=== PATIENT | male | born 1995 | race Caucasian/White ===

== ENCOUNTER 2019-11-13 14:52 | Outpatient (CLI) | payer BC, MEDICAID, SELFPAY ==
[2019-11-13 15:28] LABS: Basophils Percent Auto 0.5 % (0.2-1.2); Eosinophils Absolute Auto 0.1 K/mm3 (0-0.3); Eosinophils Percent Auto 1.3 % (0-4.4); Hematocrit 26.1 % (42.0-52.0); Hemoglobin 8.5 g/dL (14.0-18.0); Immature Granulocyte Absolute 0.03 K/mm3 (0.00-0.031); Immature Granulocyte Percent A 0.8 % (0-0.5); Lymphocytes Absolute Auto 0.74 K/mm3 (0.9-3.2); Lymphocytes Percent Auto 18.8 % (18.3-44.2); Mean Corpuscular HGB Conc 32.6 g/dl (32-36); Mean Corpuscular Hemoglobin 33.3 pg (26-34); Mean Corpuscular Volume 102.4 fl (80-100); Mean Platelet Volume 10.9 fl (7.4-10.4); Monocytes Absolute Auto 0.5 K/mm3 (0.1-0.6); Monocytes Percent Auto 11.5 % (2.6-8.5); Neutrophils Absolute Auto 2.6 K/mm3 (1.3-6.7); Neutrophils Percent Auto 67.1 % (45.5-73.1); Platelet Count Result 98 k/mm3 (150-375); Red Blood Count 2.55 M/mm3 (4.6-6.20); Red Cell Distribution Width 20.3 % (11.5-14.5); White Blood Count 3.9 K/mm3 (4.5-10.0)
== END 2019-11-13 14:53 | disposition home or self-care (01) ==
PROVIDERS: PCP Pediatrics; Referring Provider Pediatrics
DX: D61.818 Other pancytopenia (principal)
CPT/HCPCS: 36415; 85025

== ENCOUNTER 2020-01-04 12:05 | Outpatient (CLI) | payer BC, MEDICAID, SELFPAY ==
[2020-01-04 12:39] LABS: Basophils Percent Auto 0.6 % (0.2-1.2); Eosinophils Absolute Auto 0.1 K/mm3 (0-0.3); Eosinophils Percent Auto 6.1 % (0-4.4); Hematocrit 29.3 % (42.0-52.0); Hemoglobin 9.6 g/dL (14.0-18.0); Immature Granulocyte Absolute 0.03 K/mm3 (0.00-0.031); Immature Granulocyte Percent A 1.8 % (0-0.5); Lymphocytes Absolute Auto 0.85 K/mm3 (0.9-3.2); Lymphocytes Percent Auto 51.5 % (18.3-44.2); Mean Corpuscular HGB Conc 32.8 g/dl (32-36); Mean Corpuscular Volume 103.9 fl (80-100); Mean Platelet Volume 12.3 fl (7.4-10.4); Monocytes Absolute Auto 0.3 K/mm3 (0.1-0.6); Monocytes Percent Auto 15.2 % (2.6-8.5); Neutrophils Absolute Auto 0.4 K/mm3 (1.3-6.7); Neutrophils Percent Auto 24.8 % (45.5-73.1); Red Blood Count 2.82 M/mm3 (4.6-6.20); Red Cell Distribution Width 13.8 % (11.5-14.5)
[2020-01-04 13:26] LABS: Platelet Count Result 5 k/mm3 (150-375); White Blood Count 1.7 K/mm3 (4.5-10.0)
== END 2020-01-04 12:06 | disposition home or self-care (01) ==
PROVIDERS: PCP Pediatrics
DX: D69.41 Evans syndrome (principal); Z51.81 Encounter for therapeutic drug level monitoring; Z79.899 Other long term (current) drug therapy
CPT/HCPCS: 36415; 85025; 85055

== ENCOUNTER 2020-01-08 14:01 | Outpatient (CLI) | payer BC, MEDICAID, SELFPAY ==
[2020-01-08 15:22] LABS: Basophils Percent Auto 0.8 % (0.2-1.2); Eosinophils Absolute Auto 0.1 K/mm3 (0-0.3); Eosinophils Percent Auto 2.7 % (0-4.4); Hemoglobin 9.5 g/dL (14.0-18.0); Immature Granulocyte Absolute 0.02 K/mm3 (0.00-0.031); Immature Granulocyte Percent A 0.8 % (0-0.5); Immature Platelet Fraction Pct 6.8 % (0.9-11.2); Lymphocytes Absolute Auto 0.83 K/mm3 (0.9-3.2); Lymphocytes Percent Auto 32.4 % (18.3-44.2); Mean Corpuscular HGB Conc 32.8 g/dl (32-36); Mean Corpuscular Hemoglobin 33.8 pg (26-34); Mean Corpuscular Volume 103.2 fl (80-100); Mean Platelet Volume 12.4 fl (7.4-10.4); Monocytes Absolute Auto 0.3 K/mm3 (0.1-0.6); Monocytes Percent Auto 12.5 % (2.6-8.5); Neutrophils Absolute Auto 1.3 K/mm3 (1.3-6.7); Neutrophils Percent Auto 50.8 % (45.5-73.1); Platelet Count Result 27 k/mm3 (150-375); Red Blood Count 2.81 M/mm3 (4.6-6.20); Red Cell Distribution Width 14.9 % (11.5-14.5); White Blood Count 2.6 K/mm3 (4.5-10.0)
== END 2020-01-08 14:02 | disposition home or self-care (01) ==
PROVIDERS: PCP Pediatrics; Visit Provider Internal Medicine
DX: D61.818 Other pancytopenia (principal)
CPT/HCPCS: 36415; 85025; 85055

== ENCOUNTER → 2020-01-27 08:39 | Outpatient (CLI) | payer BC, MEDICAID, SELFPAY ==
--- NOTE | ~2020-01-27 | XR_ITS ---
EXAMINATION: XR chest 2V DATE: 01/27/2020 10:31 INDICATION: Unspecified circulatory symptoms. TECHNIQUE: PA and lateral views of the chest were obtained. COMPARISON: Chest radiograph dated 06/11/2018 FINDINGS: The lungs are clear with no focal airspace opacities, pulmonary edema, pleural effusion or pneumothor ax. The cardiomediastinal silhouette is normal. Small median sternotomy wires suggesting childhood ca rdiothoracic surgery. Bones and soft tissues are otherwise unremarkable. IMPRESSION: 1. No acute cardiopulmonary disease. Reviewed, dictated and finalized at location B.
== END ==
PROVIDERS: PCP Internal Medicine; Visit Provider Internal Medicine
DX: R09.89 Other specified symptoms and signs involving the circulatory and respiratory systems (principal)
CPT/HCPCS: 71046

== ENCOUNTER 2020-03-23 08:13 | Outpatient (CLI) | payer BC, MEDICAID, SELFPAY ==
[2020-03-23 08:46] LABS: Basophils Percent Auto 1.7 % (0.2-1.2); Eosinophils Percent Auto 2.5 % (0-4.4); Hematocrit 31.7 % (42.0-52.0); Hemoglobin 10.4 g/dL (14.0-18.0); Immature Granulocyte Absolute 0.02 K/mm3 (0.00-0.031); Immature Granulocyte Percent A 1.7 % (0-0.5); Immature Platelet Fraction Pct 6.7 % (0.9-11.2); Lymphocytes Absolute Auto 0.47 K/mm3 (0.9-3.2); Lymphocytes Percent Auto 38.8 % (18.3-44.2); Mean Corpuscular HGB Conc 32.8 g/dl (32-36); Mean Corpuscular Hemoglobin 32.1 pg (26-34); Mean Corpuscular Volume 97.8 fl (80-100); Mean Platelet Volume 11.7 fl (7.4-10.4); Monocytes Absolute Auto 0.7 K/mm3 (0.1-0.6); Monocytes Percent Auto 53.7 % (2.6-8.5); Neutrophils Percent Auto 1.6 % (45.5-73.1); Platelet Count Result 75 k/mm3 (150-375); Red Blood Count 3.24 M/mm3 (4.6-6.20); Red Cell Distribution Width 14.3 % (11.5-14.5)
[2020-03-23 08:56] LABS: White Blood Count 1.2 K/mm3 (4.5-10.0)
== END 2020-03-23 08:14 | disposition home or self-care (01) ==
PROVIDERS: PCP Internal Medicine; Visit Provider Internal Medicine
DX: D61.818 Other pancytopenia (principal)
CPT/HCPCS: 36415; 85025; 85055

== ENCOUNTER 2020-03-31 12:57 | Outpatient (CLI) | payer BC, MEDICAID, SELFPAY ==
[2020-03-31 13:21] LABS: Hematocrit 33.6 % (42.0-52.0); Hemoglobin 10.8 g/dL (14.0-18.0); Immature Platelet Fraction Pct 6.5 % (0.9-11.2); Mean Corpuscular HGB Conc 32.1 g/dl (32-36); Mean Corpuscular Volume 96.6 fl (80-100); Mean Platelet Volume 11.3 fl (7.4-10.4); Red Blood Count 3.48 M/mm3 (4.6-6.20); Red Cell Distribution Width 15.2 % (11.5-14.5); White Blood Count 3.2 K/mm3 (4.5-10.0)
[2020-03-31 13:25] LABS: Platelet Count Result 25 k/mm3 (150-375)
[2020-03-31 13:34] LABS: Atypical Lymphocytes Present; Eosinophils Absolute Manual 0.12 K/mm3 (0.02-0.5); Eosinophils Percent Manual 4 % (0-4); Lymphocytes Absolute Manual 0.76 K/mm3 (1.1-4.5); Monocytes Absolute Manual 0.28 K/mm3 (0.1-0.90); Monocytes Percent Manual 9 % (3-9); Neutrophils Percent Manual 63 % (46-73); Nucleated Red Blood Cells 1 %; Platelet Estimate Decreased (Adequate); Total Cells Counted 100
[2020-03-31 13:35] LABS: Anisocytosis 1+ (NORMAL); Tear Drop Cells 1+ (NORMAL)
[2020-03-31 13:36] LABS: Microcytosis 1+ (NORMAL)
== END 2020-03-31 12:58 | disposition home or self-care (01) ==
LOC: ANHLAB 12:58
PROVIDERS: PCP Internal Medicine; Visit Provider Internal Medicine
DX: D61.818 Other pancytopenia (principal)
CPT/HCPCS: 36415; 85025; 85055

== ENCOUNTER → 2020-06-11 14:27 | Outpatient (CLI) | payer BC, MEDICAID, SELFPAY ==
--- NOTE | ~2020-06-11 | XR_ITS ---
EXAMINATION: XR chest 2V EXAM DATE: 06/11/2020 14:50 INDICATION: Cough, Fever . Follow up COVID October 2019, prolonged cough. Pneumonia in April 2020. COV ID vaccine 06/08/2020. TECHNIQUE: Frontal and lateral projections of the chest obtained and reviewed. Comparison is made to prior examination from 01/27/2020. FINDINGS: The lungs are clear. There are no pleural effusions. The cardiomediastinal silhouette is within normal limits. There is no pneumothorax suspected. There is no significant interval change. IMPRESSION: No acute cardiopulmonary findings or interval change. Reviewed, dictated and finalized at location B. [employer]
== END ==
PROVIDERS: PCP Pediatrics; Visit Provider Pediatrics
DX: R50.9 Fever, unspecified (principal); R05 Cough
CPT/HCPCS: 71046

== ENCOUNTER 2020-06-25 12:48 | Outpatient (CLI) | payer BC, MEDICAID, SELFPAY ==
[2020-06-25 13:22] LABS: Basophils Absolute Auto 0.1 K/mm3 (0.0-0.1); Eosinophils Absolute Auto 0.2 K/mm3 (0-0.3); Eosinophils Percent Auto 2.5 % (0-4.4); Hematocrit 37.5 % (42.0-52.0); Immature Granulocyte Absolute 0.03 K/mm3 (0.00-0.031); Immature Granulocyte Percent A 0.5 % (0-0.5); Immature Platelet Fraction Pct 23.4 % (0.9-11.2); Lymphocytes Absolute Auto 0.91 K/mm3 (0.9-3.2); Lymphocytes Percent Auto 15.1 % (18.3-44.2); Mean Corpuscular Volume 93.8 fl (80-100); Monocytes Absolute Auto 0.4 K/mm3 (0.1-0.6); Monocytes Percent Auto 6.6 % (2.6-8.5); Neutrophils Absolute Auto 4.5 K/mm3 (1.3-6.7); Neutrophils Percent Auto 74.3 % (45.5-73.1); Red Cell Distribution Width 17.2 % (11.5-14.5)
[2020-06-25 14:16] LABS: Platelet Count Result 5 k/mm3 (150-375)
== END 2020-06-25 12:49 | disposition home or self-care (01) ==
PROVIDERS: PCP Pediatrics; Visit Provider Internal Medicine
DX: D64.9 Anemia, unspecified (principal); E03.9 Hypothyroidism, unspecified
CPT/HCPCS: 36415; 84443; 85025; 85055

== ENCOUNTER 2020-07-03 15:38 | Outpatient (CLI) | payer BC, MEDICAID, SELFPAY ==
[2020-07-03 16:14] LABS: Hematocrit 35.2 % (42.0-52.0); Hemoglobin 11.5 g/dL (14.0-18.0); Immature Platelet Fraction Pct 20.5 % (0.9-11.2); Mean Corpuscular HGB Conc 32.7 g/dl (32-36); Mean Corpuscular Hemoglobin 30.6 pg (26-34); Mean Corpuscular Volume 93.6 fl (80-100); Red Blood Count 3.76 M/mm3 (4.6-6.20); Red Cell Distribution Width 17.2 % (11.5-14.5); White Blood Count 3.6 K/mm3 (4.5-10.0)
[2020-07-03 16:25] LABS: Alanine Aminotransferase 27 U/L (4-50); Albumin Level 3.7 g/dL (3.5-5.1); Alkaline Phosphatase 135 U/L (38-126); Aspartate Amino Transferase 26 U/L (17-59); Bilirubin,Total 0.5 mg/dL (0.2-1.3)
[2020-07-03 16:34] LABS: Platelet Count Result 7 k/mm3 (150-375)
== END 2020-07-03 15:39 | disposition home or self-care (01) ==
PROVIDERS: PCP Pediatrics; Visit Provider Internal Medicine
DX: D64.9 Anemia, unspecified (principal); D83.9 Common variable immunodeficiency, unspecified
CPT/HCPCS: 36415; 80076; 85027; 85055

== ENCOUNTER 2020-07-09 13:03 | Outpatient (CLI) | payer BC, MEDICAID, SELFPAY ==
[2020-07-09 13:38] LABS: Basophils Percent Auto 1.1 % (0.2-1.2); Eosinophils Absolute Auto 0.1 K/mm3 (0-0.3); Eosinophils Percent Auto 2.9 % (0-4.4); Hematocrit 35.5 % (42.0-52.0); Hemoglobin 11.6 g/dL (14.0-18.0); Immature Granulocyte Absolute 0.02 K/mm3 (0.00-0.031); Immature Granulocyte Percent A 0.5 % (0-0.5); Immature Reticulocyte Fraction 20.2 % (3.0-15.9); Lymphocytes Percent Auto 18.8 % (18.3-44.2); Mean Corpuscular HGB Conc 32.7 g/dl (32-36); Mean Corpuscular Hemoglobin 30.9 pg (26-34); Mean Corpuscular Volume 94.7 fl (80-100); Monocytes Absolute Auto 0.3 K/mm3 (0.1-0.6); Monocytes Percent Auto 7.2 % (2.6-8.5); Neutrophils Absolute Auto 2.6 K/mm3 (1.3-6.7); Neutrophils Percent Auto 69.5 % (45.5-73.1); Red Blood Count 3.75 M/mm3 (4.6-6.20); Red Cell Distribution Width 16.3 % (11.5-14.5); Reticulocyte Hemoglobin Conten 35.3 pg (28.2-35.7); Reticulocyte Percent 5.36 % (0.7-4.3); White Blood Count 3.7 K/mm3 (4.5-10.0)
[2020-07-09 13:51] LABS: Platelet Count Result < 3 k/mm3 (150-375)
[2020-07-09 13:58] LABS: Potassium 4.9 mmol/L (3.4-5.0)
[2020-07-09 14:10] LABS: Alanine Aminotransferase 35 U/L (4-50); Albumin Level 3.7 g/dL (3.5-5.1); Alkaline Phosphatase 146 U/L (38-126); Anion Gap 5 mmol/L (8-16); Aspartate Amino Transferase 33 U/L (17-59); Bilirubin,Total 0.4 mg/dL (0.2-1.3); Blood Urea Nitrogen 28 mg/dL (9-20); Calcium 8.5 mg/dL (8.4-10.2); Carbon Dioxide 25 mmol/L (22-30); Chloride 107 mmol/L (98-107); Estimated Glomerular Filt Rate > 60; Glucose 99 mg/dL (75-110); Sodium 137 mmol/L (137-145)
== END 2020-07-09 13:04 | disposition home or self-care (01) ==
LOC: ANHLAB 13:09
PROVIDERS: PCP Pediatrics
DX: D69.3 Immune thrombocytopenic purpura (principal)
CPT/HCPCS: 36415; 80053; 85025; 85046

== ENCOUNTER 2020-07-22 11:02 | Outpatient (CLI) | payer BC, MEDICAID, SELFPAY ==
[2020-07-22 11:27] LABS: Basophils Percent Auto 0.9 % (0.2-1.2); Eosinophils Absolute Auto 0.1 K/mm3 (0-0.3); Eosinophils Percent Auto 3.6 % (0-4.4); Hematocrit 38.4 % (42.0-52.0); Hemoglobin 12.4 g/dL (14.0-18.0); Immature Platelet Fraction Pct 19.5 % (0.9-11.2); Immature Reticulocyte Fraction 20.7 % (3.0-15.9); Lymphocytes Absolute Auto 0.62 K/mm3 (0.9-3.2); Lymphocytes Percent Auto 27.6 % (18.3-44.2); Mean Corpuscular HGB Conc 32.3 g/dl (32-36); Mean Corpuscular Hemoglobin 29.9 pg (26-34); Mean Corpuscular Volume 92.5 fl (80-100); Monocytes Absolute Auto 0.3 K/mm3 (0.1-0.6); Monocytes Percent Auto 13.3 % (2.6-8.5); Neutrophils Absolute Auto 1.2 K/mm3 (1.3-6.7); Neutrophils Percent Auto 54.6 % (45.5-73.1); Red Blood Count 4.15 M/mm3 (4.6-6.20); Reticulocyte Hemoglobin Conten 32.7 pg (28.2-35.7); Reticulocyte Percent 2.92 % (0.7-4.3); Reticulocytes Absolute 0.12 B/L (32.2-175.7); White Blood Count 2.3 K/mm3 (4.5-10.0)
[2020-07-22 11:32] LABS: Platelet Count Result 11 k/mm3 (150-375)
[2020-07-22 11:34] LABS: Alanine Aminotransferase 64 U/L (4-50); Albumin Level 3.8 g/dL (3.5-5.1); Alkaline Phosphatase 198 U/L (38-126); Aspartate Amino Transferase 54 U/L (17-59); Bilirubin,Total 0.3 mg/dL (0.2-1.3)
== END 2020-07-22 11:03 | disposition home or self-care (01) ==
PROVIDERS: PCP Pediatrics; Visit Provider Internal Medicine
DX: D64.9 Anemia, unspecified (principal); R74.8 Abnormal levels of other serum enzymes
CPT/HCPCS: 36415; 80076; 85025; 85046; 85055

== ENCOUNTER 2020-08-17 14:37 | Outpatient (CLI) | payer BC, MEDICAID, SELFPAY ==
[2020-08-17 18:51] LABS: Free T4 Free Thyroxine 1.24 ng/mL (0.78-2.19)
== END 2020-08-17 14:38 | disposition home or self-care (01) ==
PROVIDERS: PCP Pediatrics
DX: E03.9 Hypothyroidism, unspecified (principal); T38.0X5A Adverse effect of glucocorticoids and synthetic analogues, initial encounter; E27.3 Drug-induced adrenocortical insufficiency
CPT/HCPCS: 36415; 80053; 84439; 85025; 85046; 85055

== ENCOUNTER 2020-10-12 13:10 | Outpatient (RCR) | payer BC, MEDICAID, SELFPAY ==
[2020-07-29 14:07] LABS: Alanine Aminotransferase 54 U/L (4-50); Albumin Level 3.6 g/dL (3.5-5.1); Alkaline Phosphatase 197 U/L (38-126); Anion Gap 6 mmol/L (8-16); Aspartate Amino Transferase 46 U/L (17-59); Bilirubin,Total 0.4 mg/dL (0.2-1.3); Blood Urea Nitrogen 21 mg/dL (9-20); Calcium 8.3 mg/dL (8.4-10.2); Carbon Dioxide 27 mmol/L (22-30); Chloride 107 mmol/L (98-107); Estimated Glomerular Filt Rate > 60; Glucose 102 mg/dL (75-110); Potassium 4.3 mmol/L (3.4-5.0); Sodium 140 mmol/L (137-145)
[2020-07-30 12:46] LABS: Basophils Percent Auto 2.3 % (0.2-1.2); Eosinophils Absolute Auto 0.1 K/mm3 (0-0.3); Eosinophils Percent Auto 5.4 % (0-4.4); Hematocrit 37.8 % (42.0-52.0); Hemoglobin 12.2 g/dL (14.0-18.0); Immature Platelet Fraction Pct 15.9 % (0.9-11.2); Immature Reticulocyte Fraction 23.3 % (3.0-15.9); Lymphocytes Absolute Auto 0.51 K/mm3 (0.9-3.2); Lymphocytes Percent Auto 39.5 % (18.3-44.2); Mean Corpuscular HGB Conc 32.3 g/dl (32-36); Mean Corpuscular Volume 92.9 fl (80-100); Monocytes Absolute Auto 0.3 K/mm3 (0.1-0.6); Monocytes Percent Auto 20.9 % (2.6-8.5); Neutrophils Absolute Auto 0.4 K/mm3 (1.3-6.7); Neutrophils Percent Auto 31.9 % (45.5-73.1); Red Blood Count 4.07 M/mm3 (4.6-6.20); Red Cell Distribution Width 15.5 % (11.5-14.5); Reticulocyte Hemoglobin Conten 35.4 pg (28.2-35.7); Reticulocyte Percent 3.64 % (0.7-4.3); Reticulocytes Absolute 0.15 B/L (32.2-175.7)
[2020-07-30 13:34] LABS: Platelet Count Result 18 k/mm3 (150-375); White Blood Count 1.3 K/mm3 (4.5-10.0)
[2020-08-17 15:50] LABS: Basophils Percent Auto 2.1 % (0.2-1.2); Eosinophils Absolute Auto 0.1 K/mm3 (0-0.3); Eosinophils Percent Auto 7.1 % (0-4.4); Hemoglobin 12.4 g/dL (14.0-18.0); Immature Granulocyte Absolute 0.01 K/mm3 (0.00-0.031); Immature Granulocyte Percent A 0.7 % (0-0.5); Immature Platelet Fraction Pct 8.9 % (0.9-11.2); Immature Reticulocyte Fraction 22.1 % (3.0-15.9); Lymphocytes Absolute Auto 0.52 K/mm3 (0.9-3.2); Lymphocytes Percent Auto 37.1 % (18.3-44.2); Mean Corpuscular HGB Conc 31.8 g/dl (32-36); Mean Corpuscular Hemoglobin 29.4 pg (26-34); Mean Corpuscular Volume 92.4 fl (80-100); Mean Platelet Volume 12.6 fl (7.4-10.4); Monocytes Absolute Auto 0.4 K/mm3 (0.1-0.6); Monocytes Percent Auto 27.1 % (2.6-8.5); Neutrophils Absolute Auto 0.4 K/mm3 (1.3-6.7); Neutrophils Percent Auto 25.9 % (45.5-73.1); Platelet Count Result 33 k/mm3 (150-375); Red Blood Count 4.22 M/mm3 (4.6-6.20); Red Cell Distribution Width 15.6 % (11.5-14.5); Reticulocyte Hemoglobin Conten 34.1 pg (28.2-35.7); Reticulocyte Percent 3.24 % (0.7-4.3); Reticulocytes Absolute 0.14 B/L (32.2-175.7)
[2020-08-17 15:56] LABS: Alanine Aminotransferase 63 U/L (4-50); Albumin Level 3.6 g/dL (3.5-5.1); Alkaline Phosphatase 284 U/L (38-126); Anion Gap 6 mmol/L (8-16); Aspartate Amino Transferase 41 U/L (17-59); Bilirubin,Total 0.4 mg/dL (0.2-1.3); Blood Urea Nitrogen 27 mg/dL (9-20); Calcium 8.8 mg/dL (8.4-10.2); Carbon Dioxide 24 mmol/L (22-30); Chloride 108 mmol/L (98-107); Estimated Glomerular Filt Rate > 60; Glucose 92 mg/dL (75-110); Potassium 4.4 mmol/L (3.4-5.0); Sodium 138 mmol/L (137-145)
[2020-08-17 16:26] LABS: White Blood Count 1.4 K/mm3 (4.5-10.0)
[2020-09-07 16:02] LABS: Basophils Percent Auto 1.4 % (0.2-1.2); Eosinophils Absolute Auto 0.1 K/mm3 (0-0.3); Eosinophils Percent Auto 7.2 % (0-4.4); Hematocrit 34.2 % (42.0-52.0); Immature Granulocyte Absolute 0.01 K/mm3 (0.00-0.031); Immature Granulocyte Percent A 0.7 % (0-0.5); Immature Platelet Fraction Pct 8.3 % (0.9-11.2); Immature Reticulocyte Fraction 25.5 % (3.0-15.9); Lymphocytes Percent Auto 43.5 % (18.3-44.2); Mean Corpuscular HGB Conc 32.2 g/dl (32-36); Mean Corpuscular Hemoglobin 29.5 pg (26-34); Mean Corpuscular Volume 91.7 fl (80-100); Mean Platelet Volume 12.2 fl (7.4-10.4); Monocytes Absolute Auto 0.4 K/mm3 (0.1-0.6); Neutrophils Absolute Auto 0.3 K/mm3 (1.3-6.7); Neutrophils Percent Auto 18.2 % (45.5-73.1); Platelet Count Result 29 k/mm3 (150-375); Red Blood Count 3.73 M/mm3 (4.6-6.20); Red Cell Distribution Width 16.7 % (11.5-14.5); Reticulocyte Hemoglobin Conten 33.7 pg (28.2-35.7); Reticulocyte Percent 3.75 % (0.7-4.3); Reticulocytes Absolute 0.14 B/L (32.2-175.7)
[2020-09-07 16:09] LABS: Alanine Aminotransferase 60 U/L (4-50); Albumin Level 3.5 g/dL (3.5-5.1); Alkaline Phosphatase 233 U/L (38-126); Anion Gap 11 mmol/L (8-16); Aspartate Amino Transferase 53 U/L (17-59); Bilirubin,Total 0.5 mg/dL (0.2-1.3); Blood Urea Nitrogen 26 mg/dL (9-20); Calcium 8.7 mg/dL (8.4-10.2); Carbon Dioxide 19 mmol/L (22-30); Chloride 107 mmol/L (98-107); Estimated Glomerular Filt Rate > 60; Glucose 97 mg/dL (75-110); Potassium 4.2 mmol/L (3.4-5.0); Sodium 137 mmol/L (137-145)
[2020-09-07 19:06] LABS: Free T4 Free Thyroxine 1.34 ng/mL (0.78-2.19)
[2020-09-08 09:02] LABS: White Blood Count 1.4 K/mm3 (4.5-10.0)
[2020-10-12 14:41] LABS: Basophils Absolute Auto 0.1 K/mm3 (0.0-0.1); Basophils Percent Auto 3.2 % (0.2-1.2); Eosinophils Absolute Auto 0.1 K/mm3 (0-0.3); Eosinophils Percent Auto 8.2 % (0-4.4); Hematocrit 33.9 % (42.0-52.0); Hemoglobin 10.5 g/dL (14.0-18.0); Immature Platelet Fraction Pct 14.5 % (0.9-11.2); Immature Reticulocyte Fraction 23.4 % (3.0-15.9); Lymphocytes Absolute Auto 0.54 K/mm3 (0.9-3.2); Lymphocytes Percent Auto 34.2 % (18.3-44.2); Mean Corpuscular Hemoglobin 30.3 pg (26-34); Monocytes Absolute Auto 0.4 K/mm3 (0.1-0.6); Monocytes Percent Auto 24.7 % (2.6-8.5); Neutrophils Absolute Auto 0.5 K/mm3 (1.3-6.7); Neutrophils Percent Auto 29.7 % (45.5-73.1); Red Blood Count 3.46 M/mm3 (4.6-6.20); Red Cell Distribution Width 19.2 % (11.5-14.5); Reticulocyte Hemoglobin Conten 36.7 pg (28.2-35.7); Reticulocyte Percent 4.63 % (0.7-4.3); Reticulocytes Absolute 0.16 B/L (32.2-175.7)
[2020-10-12 14:50] LABS: Alanine Aminotransferase 74 U/L (4-50); Albumin Level 3.6 g/dL (3.5-5.1); Alkaline Phosphatase 244 U/L (38-126); Anion Gap 10 mmol/L (8-16); Aspartate Amino Transferase 51 U/L (17-59); Bilirubin,Total 0.7 mg/dL (0.2-1.3); Blood Urea Nitrogen 20 mg/dL (9-20); Calcium 9.1 mg/dL (8.4-10.2); Carbon Dioxide 22 mmol/L (22-30); Chloride 105 mmol/L (98-107); Estimated Glomerular Filt Rate > 60; Glucose 93 mg/dL (75-110); Potassium 4.4 mmol/L (3.4-5.0); Sodium 137 mmol/L (137-145)
[2020-10-12 15:04] LABS: Platelet Count Result 14 k/mm3 (150-375); White Blood Count 1.6 K/mm3 (4.5-10.0)
== END 2020-10-27 23:59 | disposition home or self-care (01) ==
LOC: ANHLAB 13:10
PROVIDERS: PCP Pediatrics
DX: D69.3 Immune thrombocytopenic purpura (principal)
CPT/HCPCS: 36415; 80053; 82726; 84439; 84443; 85025; 85046; 85055

== ENCOUNTER → 2020-10-20 14:08 | Outpatient (CLI) | payer BC, MEDICAID, SELFPAY ==
--- NOTE | ~2020-10-20 | XR_ITS ---
XR chest 2V DATE: 10/20/2020 14:24 INDICATION: Fever, cough. Covid infection 1 year ago. TECHNIQUE: PA and lateral views COMPARISON: 06/11/2020 2 view chest FINDINGS: Normal heart size. No hilar or mediastinal enlargement. No pulmonary infiltrate or consolidation, pleural effusion or pulmonary vascular congestion or pneumo thorax. Sternal wire sutures. IMPRESSION: No active cardiopulmonary disease Reviewed, dictated and finalized at location A.
== END ==
PROVIDERS: PCP Internal Medicine; Visit Provider Internal Medicine
DX: R50.9 Fever, unspecified (principal)
CPT/HCPCS: 71046

== ENCOUNTER 2020-10-28 13:15 | Outpatient (RCR) | payer BC, MEDICAID, SELFPAY ==
[2020-10-28 13:50] LABS: Basophils Percent Auto 1.3 % (0.2-1.2); Eosinophils Absolute Auto 0.2 K/mm3 (0-0.3); Eosinophils Percent Auto 12.3 % (0-4.4); Hematocrit 28.7 % (42.0-52.0); Hemoglobin 8.9 g/dL (14.0-18.0); Immature Granulocyte Absolute 0.07 K/mm3 (0.00-0.031); Immature Granulocyte Percent A 4.5 % (0-0.5); Immature Reticulocyte Fraction 30.4 % (3.0-15.9); Lymphocytes Absolute Auto 0.67 K/mm3 (0.9-3.2); Lymphocytes Percent Auto 43.2 % (18.3-44.2); Mean Corpuscular Hemoglobin 30.5 pg (26-34); Mean Corpuscular Volume 98.3 fl (80-100); Monocytes Absolute Auto 0.4 K/mm3 (0.1-0.6); Monocytes Percent Auto 23.9 % (2.6-8.5); Neutrophils Absolute Auto 0.2 K/mm3 (1.3-6.7); Neutrophils Percent Auto 14.8 % (45.5-73.1); Red Blood Count 2.92 M/mm3 (4.6-6.20); Red Cell Distribution Width 18.1 % (11.5-14.5); Reticulocyte Hemoglobin Conten 33.6 pg (28.2-35.7); Reticulocyte Percent 4.72 % (0.7-4.3); Reticulocytes Absolute 0.14 B/L (32.2-175.7)
[2020-10-28 14:03] LABS: Alanine Aminotransferase 51 U/L (4-50); Albumin Level 3.3 g/dL (3.5-5.1); Alkaline Phosphatase 261 U/L (38-126); Anion Gap 10 mmol/L (8-16); Aspartate Amino Transferase 54 U/L (17-59); Bilirubin,Total 0.9 mg/dL (0.2-1.3); Blood Urea Nitrogen 19 mg/dL (9-20); Calcium 8.5 mg/dL (8.4-10.2); Carbon Dioxide 18 mmol/L (22-30); Chloride 106 mmol/L (98-107); Estimated Glomerular Filt Rate > 60; Glucose 95 mg/dL (65-110); Potassium 4.5 mmol/L (3.4-5.0); Sodium 134 mmol/L (137-145)
[2020-10-28 14:14] LABS: Platelet Count Result 16 k/mm3 (150-375); White Blood Count 1.6 K/mm3 (4.5-10.0)
[2020-10-28 14:16] LABS: Anisocytosis 1+ (NORMAL); Hypochromasia 1+ (NORMAL); Ovalocytes 1+ (NORMAL); Platelet Estimate Decreased (Adequate)
== END 2021-01-26 23:59 | disposition home or self-care (01) ==
LOC: ANHLAB 13:15
PROVIDERS: PCP Pediatrics
DX: D69.3 Immune thrombocytopenic purpura (principal)
CPT/HCPCS: 36415; 80053; 85025; 85046

== ENCOUNTER 2020-11-02 14:22 | Outpatient (CLI) | payer BC, MEDICAID, SELFPAY ==
[2020-11-02 15:21] LABS: Basophils Percent Auto 0.5 % (0.2-1.2); Eosinophils Absolute Auto 0.1 K/mm3 (0-0.3); Eosinophils Percent Auto 3.6 % (0-4.4); Hematocrit 26.6 % (42.0-52.0); Hemoglobin 8.3 g/dL (14.0-18.0); Immature Granulocyte Absolute 0.02 K/mm3 (0.00-0.031); Immature Platelet Fraction Pct 39.9 % (0.9-11.2); Immature Reticulocyte Fraction 38.3 % (3.0-15.9); Lymphocytes Absolute Auto 0.98 K/mm3 (0.9-3.2); Lymphocytes Percent Auto 50.5 % (18.3-44.2); Mean Corpuscular HGB Conc 31.2 g/dl (32-36); Mean Corpuscular Hemoglobin 31.3 pg (26-34); Mean Corpuscular Volume 100.4 fl (80-100); Monocytes Absolute Auto 0.6 K/mm3 (0.1-0.6); Monocytes Percent Auto 32.5 % (2.6-8.5); Neutrophils Absolute Auto 0.2 K/mm3 (1.3-6.7); Neutrophils Percent Auto 11.9 % (45.5-73.1); Nucleated Red Blood Cells Perc 2.1 % (0.0-0.2); Red Blood Count 2.65 M/mm3 (4.6-6.20); Red Cell Distribution Width 18.9 % (11.5-14.5); Reticulocyte Hemoglobin Conten 34.4 pg (28.2-35.7); Reticulocyte Percent 6.24 % (0.7-4.3); Reticulocytes Absolute 0.17 B/L (32.2-175.7)
[2020-11-02 15:29] LABS: Add Urine Microscopic? YES; Appearance Urine Clear (Clear); Bilirubin Urine Negative (Negative); Blood Urine Negative (Negative); Color Urine Yellow (Yellow); Glucose Urine UA Negative (Negative); Ketones Urine Negative (Negative); Leukocyte Esterase Ur Negative LEU/UL (NEGATIVE); Mucus Urine Rare /lpf; Nitrate Urine Negative (Negative); Protein Urine 1+ mg/dL (Negative); RBC Urine 0-2 /hpf (0-2); Specific Grav Ur 1.016 (1.001-1.035); Squamous Epithelial Cell Urine Rare /hpf (Few); Urobilinogen Urine Negative mg/dL (<2.0); WBC Urine 0-3 /hpf (0-3)
[2020-11-02 16:15] LABS: Platelet Count Result 3 k/mm3 (150-375); White Blood Count 1.9 K/mm3 (4.5-10.0)
[2020-11-02 16:16] LABS: Anisocytosis 1+ (NORMAL); Ovalocytes 1+ (NORMAL); Platelet Estimate Decreased (Adequate)
[2020-11-02 16:32] LABS: Erythrocyte Sedimentation Rate 47 mm/hr (0-20)
[2020-11-02 17:05] LABS: Alanine Aminotransferase 98 U/L (4-50); Albumin Level 2.9 g/dL (3.5-5.1); Alkaline Phosphatase 325 U/L (38-126); Anion Gap 9 mmol/L (8-16); Aspartate Amino Transferase 79 U/L (17-59); Bilirubin,Total 0.8 mg/dL (0.2-1.3); Blood Urea Nitrogen 18 mg/dL (9-20); Calcium 8.7 mg/dL (8.4-10.2); Carbon Dioxide 20 mmol/L (22-30); Chloride 105 mmol/L (98-107); Estimated Glomerular Filt Rate 58; Glucose 89 mg/dL (65-110); Sodium 134 mmol/L (137-145)
[2020-11-05 20:15] LABS: Haptoglobin <8 mg/dL (43-212)
== END 2020-11-02 14:23 | disposition home or self-care (01) ==
PROVIDERS: PCP Pediatrics; Visit Provider Internal Medicine
DX: D69.41 Evans syndrome (principal); D61.818 Other pancytopenia; R09.89 Other specified symptoms and signs involving the circulatory and respiratory systems
CPT/HCPCS: 36415; 80053; 81001; 83010; 85025; 85046; 85055; 85652

== ENCOUNTER 2020-11-25 12:18 | Outpatient (CLI) | payer BC, MEDICAID, SELFPAY ==
[2020-11-25 13:05] LABS: Basophils Percent Auto 0.7 % (0.2-1.2); Hematocrit 25.9 % (42.0-52.0); Hemoglobin 7.7 g/dL (14.0-18.0); Immature Granulocyte Absolute 0.03 K/mm3 (0.00-0.031); Immature Platelet Fraction Pct 15.6 % (0.9-11.2); Immature Reticulocyte Fraction 38.8 % (3.0-15.9); Lymphocytes Absolute Auto 1.41 K/mm3 (0.9-3.2); Lymphocytes Percent Auto 47.5 % (18.3-44.2); Mean Corpuscular HGB Conc 29.7 g/dl (32-36); Mean Corpuscular Hemoglobin 31.3 pg (26-34); Mean Corpuscular Volume 105.3 fl (80-100); Monocytes Absolute Auto 0.7 K/mm3 (0.1-0.6); Monocytes Percent Auto 24.6 % (2.6-8.5); Neutrophils Absolute Auto 0.8 K/mm3 (1.3-6.7); Neutrophils Percent Auto 25.2 % (45.5-73.1); Red Blood Count 2.46 M/mm3 (4.6-6.20); Red Cell Distribution Width 19.7 % (11.5-14.5); Reticulocyte Hemoglobin Conten 35.7 pg (28.2-35.7); Reticulocytes Absolute 0.16 B/L (32.2-175.7)
[2020-11-25 14:08] LABS: Platelet Count Result < 3 k/mm3 (150-375)
[2020-11-25 14:42] LABS: Platelet Estimate Decreased (Adequate)
[2020-11-25 14:43] LABS: Anisocytosis 1+ (NORMAL); Hypochromasia 1+ (NORMAL)
[2020-11-25 23:14] LABS: Alanine Aminotransferase 45 U/L (4-50); Alkaline Phosphatase 278 U/L (38-126); Anion Gap 9 mmol/L (8-16); Aspartate Amino Transferase 56 U/L (17-59); Bilirubin,Total 0.6 mg/dL (0.2-1.3); Blood Urea Nitrogen 23 mg/dL (9-20); Carbon Dioxide 18 mmol/L (22-30); Chloride 110 mmol/L (98-107); Estimated Glomerular Filt Rate > 60; Glucose 111 mg/dL (65-110); Lactate Dehydrogenase 374 U/L (313-618); Potassium 4.4 mmol/L (3.4-5.0); Sodium 137 mmol/L (137-145)
[2020-11-28 10:59] LABS: Haptoglobin <8 mg/dL (43-212)
== END 2020-11-25 12:19 | disposition home or self-care (01) ==
PROVIDERS: PCP Pediatrics
DX: D69.3 Immune thrombocytopenic purpura (principal)
CPT/HCPCS: 36415; 80053; 83010; 83615; 85025; 85046; 85055

== ENCOUNTER 2020-11-28 10:27 | Emergency (ER) | payer BC, MEDICAID, SELFPAY ==
[2020-11-28] VITALS (15 sets, daily range): BP systolic 79–128; BP diastolic 35–74; PULSE 68–108; RESP 18–30; TEMP 36.2–36.6; O2SAT 97–100
[2020-11-28 11:44] LABS: Mean Corpuscular Hemoglobin 32.9 pg (26-34); Mean Corpuscular Volume 109.6 fl (80-100); Mean Platelet Volume 13.2 fl (7.4-10.4); Red Blood Count 1.46 M/mm3 (4.6-6.20); Red Cell Distribution Width 22.6 % (11.5-14.5); White Blood Count 8.2 K/mm3 (4.5-10.0)
[2020-11-28 11:55] LABS: Alanine Aminotransferase 42 U/L (4-50); Albumin Level 2.6 g/dL (3.5-5.1); Alkaline Phosphatase 193 U/L (38-126); Anion Gap 7 mmol/L (8-16); Aspartate Amino Transferase 38 U/L (17-59); Bilirubin,Total 0.4 mg/dL (0.2-1.3); Blood Urea Nitrogen 57 mg/dL (9-20); Calcium 9.3 mg/dL (8.4-10.2); Carbon Dioxide 16 mmol/L (22-30); Chloride 114 mmol/L (98-107); Estimated CRCL calculation 64 ml/min; Estimated Glomerular Filt Rate > 60; Glucose 94 mg/dL (65-110); Potassium 5.1 mmol/L (3.4-5.0); Sodium 137 mmol/L (137-145)
[2020-11-28 11:56] LABS: Hemoglobin 4.8 g/dL (14.0-18.0)
[2020-11-28 12:03] LABS: INR 1.1; Partial Thromboplastin Time 20.4 SECONDS (22.3-36.8); Prothrombin Time 14.3 Seconds (11.1-14.7)
--- NOTE | 2020-11-28 12:04 | PC.NURSE ---
Hemocult done and noted to be positive.
[2020-11-28 12:07] LABS: Platelet Count Result < 3 k/mm3 (150-375)
[2020-11-28] MEDS: SODIUM CHLORIDE 0.9% IV 1,000 ML 999 ML IV CONT (12:08)
[2020-11-28] MEDS: PANTOPRAZOLE SODIUM IV 40 MG VIAL 80 MG IV PUSH (12:31)
[2020-11-28] MEDS: LORazepam INJ (*CRX) 2 MG/ML VIAL 0.5 MG IV PUSH (12:39)
[2020-11-28 12:49] LABS: Add Urine Microscopic? YES; Appearance Urine Clear (Clear); Bilirubin Urine Negative (Negative); Blood Urine Negative (Negative); Color Urine Yellow (Yellow); Glucose Urine UA Negative (Negative); Ketones Urine Negative (Negative); Leukocyte Esterase Ur Negative LEU/UL (Negative); Nitrate Urine Negative (Negative); Protein Urine Negative (Negative); RBC Urine 0-2 /hpf (0-2); Specific Grav Ur 1.018 (1.001-1.035); Urobilinogen Urine Negative mg/dL (<2.0); WBC Urine 0-3 /hpf
[2020-11-28 12:57] LABS: Band Neutrophils Percent 13 % (0-6); Lymphocytes Absolute Manual 1.55 K/mm3 (1.1-4.5); Monocytes Absolute Manual 0.49 K/mm3 (0.1-0.90); Monocytes Percent Manual 6 % (3-9); Neutrophils Absolute Manual 6.15 K/mm3 (1.3-6.7); Neutrophils Percent Manual 62 % (46-73); Total Cells Counted 100
[2020-11-28 12:58] LABS: Platelet Estimate Decreased (Adequate)
[2020-11-28 12:59] LABS: Anisocytosis 1+ (NORMAL); Hypochromasia 1+ (NORMAL); Microcytosis 1+ (NORMAL)
--- NOTE | 2020-11-28 13:12 | PC.NURSE ---
Blood transfusion form signed per father/guardian.
[2020-11-28 13:27] LABS: EDCOVIDSCREEN Negative (Negative)
--- NOTE | 2020-11-28 14:03 | PC.NURSE ---
Notified patients father patient has been accepted at [facility] in ICU room 7819. Report to be called to [phone].
--- NOTE | 2020-11-28 14:24 | ED.GENADULT ---
HPI - General Adult General Chief complaint: Weakness <Randa Hernandez PA-C - Last Filed: 11/28/20 19:34> Stated complaint: lethargic, pale, GI bleed hx ITP <Randa Hernandez PA-C - Last Filed: 11/28/20 19:34> Time Seen by Provider: 11/28/20 10:37 <Randa Hernandez PA-C - Last Filed: 11/28/20 19:34> Source: family (Patient's father) <Randa Hernandez PA-C - Last Filed: 11/28/20 19:34> Mode of arrival: wheelchair <Randa Hernandez PA-C - Last Filed: 11/28/20 19:34> Limitations: clinical condition (Down syndrome) <Randa Hernandez PA-C - Last Filed: 11/28/20 19:34> History of Present Illness HPI narrative: Patient is a 25-year-old male presents with his father with chief complaint of fatigue that began yesterday and black stool that he noticed today. Patient has a medical history significant for Down syndrome and pain syndrome. Patient's father states that he is managed by hematology [facility] and they have been in communication. He states that patient's hemoglobin was 7.7 when tested on Monday and his platelets were below 3 still undetectable. He states that he has been working diligently trying to increase the patient's platelet levels and he is on max dose of dexamethasone over the past few days. Patient states that he feels tired. Father states that he also noted that the patient appeared more pale today. The patient denies any pain or discomfort. Father states that stools have been black since yesterday but there is no bright red blood, streaking, blood clots or mucus noted. Patient not had any known trauma. Patient has been drinking normally. He denies any fever, chills, nausea, vomiting, diarrhea, shortness of breath, chest pain, syncope. <Randa Hernandez PA-C - Last Filed: 11/28/20 19:34> Related Data Home medications: Home Medications Medication Instructions Recorded Confirmed albuterol sulfate 11/28/20 dexamethasone 11/28/20 filgrastim [Neupogen] 11/28/20 levothyroxine 11/28/20 mometasone [Asmanex HFA] INHALATION 11/28/20 nystatin 11/28/20 <Randa Hernandez PA-C - Last Filed: 11/28/20 19:34> Allergies/adverse reactions: Allergies Allergy/AdvReac Type Severity Reaction Status Date / Time gluten Allergy Diarrhea Verified 11/28/20 10:43 <Randa Hernandez PA-C - Last Filed: 11/28/20 19:34> Review of Systems Review of Systems: CONSTITUTIONAL: Reports fatigue denies fever, chills, or sweats. EYES: Denies visual changes, redness, or discharge. ENT: Denies rhinorrhea, congestion, sore throat, or otalgia. CARDIOVASCULAR: Denies chest pain, palpitations, or edema. RESPIRATORY: Denies cough or dyspnea. GASTROINTESTINAL: Reports dark stool. Denies abdominal pain, nausea, vomiting, or diarrhea. GENITOURINARY: denies dysuria or hematuria. SKIN: Reports paleness denies rash or itching. MUSCULOSKELETAL: Denies back pain, joint pain, or myalgia. NEUROLOGIC: Denies headache, numbness, dizziness, or weakness. PSYCHIATRIC: Denies anxiety or depression. <Randa Hernandez PA-C - Last Filed: 11/28/20 19:34> PENDING SALE TO [facility] Past Medical History Medical History: Medical History (Updated 11/28/20 @ 19:34 by Randa Hernandez PA-C) Anemia Hypothyroidism, unspecified <Randa Hernandez PA-C - Last Filed: 11/28/20 19:34> Social History Social History: Social History Second hand tobacco smoke exposure: No Gender identity (if verbalized by the patient): Male <Randa Hernandez PA-C - Last Filed: 11/28/20 19:34> Exam Narrative: GENERAL: pale. downs syndrome facial features, calm, does not appear to be in pain. HEAD: Normocephalic, atraumatic. EYES: PERRLA and EOMI. NECK: supple. ROM intact. CHEST: Clear to auscultation. No respiratory distress. No wheezes rales or rhonchi HEART: Regular rate and rhythm. ABDOMEN: Soft, nondistended, normal active bowel sounds. Patient does not like palpation of abdomen and attempts to move my hand whe
[2020-11-28] MEDS: TUBING, BLOOD SET 1 EACH XX (14:29)
[2020-11-28] MEDS: TUBING, BLOOD SET 2 EACH XX (14:29)
--- NOTE | 2020-11-28 15:05 | PC.NURSE ---
Restarted protonix drip at this time after both transfusions of blood and 1 platelet. Patient tolerated transfusions well. Guardian at bedside.
--- NOTE | 2020-11-28 15:16 | PC.NURSE ---
Spoke with Helga at this time to update on blood/platelet transfusion. [facility] at bedside and transferred to [place] ICU at this time.
== END 2020-11-28 15:25 | disposition short-term general hospital (02) ==
PROVIDERS: Physician Assistant; Emergency Provider General Practice; PCP Pediatrics
DX: D64.9 Anemia, unspecified (principal); D61.818 Other pancytopenia; D69.41 Evans syndrome; D69.6 Thrombocytopenia, unspecified; Q90.9 Down syndrome, unspecified; Z20.822 Contact with and (suspected) exposure to COVID-19
CPT/HCPCS: 36415; 36430; 80053; 81001; 82728; 85025; 85610; 85730; 86850; 86900; 86901; 86920; 87426; 96361; 96365; 96366; 96375; 99285; C9113; C9803; J2060; J7030; J7050; J7060; P9016; P9034

== ENCOUNTER 2021-01-04 14:28 | Emergency (ER) | payer BC, MEDICAID, SELFPAY ==
--- NOTE | 2021-01-04 14:51 | PC.NURSE ---
Dr Viera states pt is looking better. Called pt's PMD and is taking him to see her. Does not want to be seen in the ER
== END 2021-01-04 14:46 | disposition left against medical advice (07) ==
LOC: ANHED 14:53
PROVIDERS: PCP Pediatrics
DX: Z53.21 Procedure and treatment not carried out due to patient leaving prior to being seen by health care provider (principal)
CPT/HCPCS: 99199

== ENCOUNTER 2021-01-04 14:54 | Outpatient (CLI) | payer BC, MEDICAID, SELFPAY ==
[2021-01-04 15:15] LABS: Basophils Absolute Auto 0.1 K/mm3 (0.0-0.1); Basophils Percent Auto 0.4 % (0.2-1.2); Hematocrit 32.4 % (42.0-52.0); Hemoglobin 10.3 g/dL (14.0-18.0); Immature Granulocyte Absolute 0.36 K/mm3 (0.00-0.031); Lymphocytes Percent Auto 1.1 % (18.3-44.2); Mean Corpuscular HGB Conc 31.8 g/dl (32-36); Mean Corpuscular Volume 110.2 fl (80-100); Mean Platelet Volume 12.7 fl (7.4-10.4); Monocytes Absolute Auto 0.9 K/mm3 (0.1-0.6); Monocytes Percent Auto 2.4 % (2.6-8.5); Neutrophils Absolute Auto 33.8 K/mm3 (1.3-6.7); Neutrophils Percent Auto 95.1 % (45.5-73.1); Nucleated Red Blood Cells Absolute Auto 0.3 K/mm3 (0.0-0.012); Platelet Count Result 240 k/mm3 (150-375); Red Blood Count 2.94 M/mm3 (4.6-6.20); Red Cell Distribution Width 17.4 % (11.5-14.5); White Blood Count 35.6 K/mm3 (4.5-10.0)
[2021-01-04 15:32] LABS: Alanine Aminotransferase 39 U/L (4-50); Albumin Level 3.7 g/dL (3.5-5.1); Alkaline Phosphatase 385 U/L (38-126); Anion Gap 8 mmol/L (8-16); Aspartate Amino Transferase 42 U/L (17-59); Bilirubin,Total 0.3 mg/dL (0.2-1.3); Blood Urea Nitrogen 18 mg/dL (9-20); Calcium 8.5 mg/dL (8.4-10.2); Carbon Dioxide 23 mmol/L (22-30); Chloride 106 mmol/L (98-107); Estimated Glomerular Filt Rate > 60; Glucose 108 mg/dL (65-110); Potassium 4.2 mmol/L (3.4-5.0); Sodium 137 mmol/L (137-145)
[2021-01-04 15:33] LABS: Immature Reticulocyte Fraction 17.4 % (3.0-15.9); Reticulocyte Hemoglobin Conten 28.3 pg (28.2-35.7); Reticulocyte Percent 10.27 % (0.7-4.3); Reticulocytes Absolute 0.31 B/L (32.2-175.7)
[2021-01-04 15:34] LABS: Anisocytosis 1+ (NORMAL); Ovalocytes 1+ (NORMAL); Platelet Estimate Adequate (Adequate)
== END 2021-01-04 14:55 | disposition home or self-care (01) ==
PROVIDERS: PCP Pediatrics; Visit Provider Internal Medicine
DX: D69.41 Evans syndrome (principal)
CPT/HCPCS: 36415; 80053; 85025; 85046

== ENCOUNTER 2021-01-12 14:37 | Outpatient (CLI) | payer BC, MEDICAID, SELFPAY ==
[2021-01-12 16:06] LABS: Basophils Absolute Auto 0.2 K/mm3 (0.0-0.1); Basophils Percent Auto 2.6 % (0.2-1.2); Eosinophils Absolute Auto 0.4 K/mm3 (0-0.3); Eosinophils Percent Auto 4.3 % (0-4.4); Hematocrit 35.8 % (42.0-52.0); Hemoglobin 11.1 g/dL (14.0-18.0); Immature Granulocyte Absolute 0.06 K/mm3 (0.00-0.031); Immature Granulocyte Percent A 0.7 % (0-0.5); Lymphocytes Absolute Auto 1.62 K/mm3 (0.9-3.2); Lymphocytes Percent Auto 19.8 % (18.3-44.2); Mean Corpuscular Hemoglobin 32.5 pg (26-34); Mean Corpuscular Volume 104.7 fl (80-100); Mean Platelet Volume 12.9 fl (7.4-10.4); Monocytes Absolute Auto 0.9 K/mm3 (0.1-0.6); Monocytes Percent Auto 10.6 % (2.6-8.5); Neutrophils Absolute Auto 5.1 K/mm3 (1.3-6.7); Platelet Count Result 246 k/mm3 (150-375); Red Blood Count 3.42 M/mm3 (4.6-6.20); Red Cell Distribution Width 17.3 % (11.5-14.5); White Blood Count 8.2 K/mm3 (4.5-10.0)
[2021-01-12 16:41] LABS: Alanine Aminotransferase 39 U/L (4-50); Albumin Level 3.9 g/dL (3.5-5.1); Alkaline Phosphatase 211 U/L (38-126); Anion Gap 9 mmol/L (8-16); Aspartate Amino Transferase 34 U/L (17-59); Bilirubin,Total 0.2 mg/dL (0.2-1.3); Blood Urea Nitrogen 16 mg/dL (9-20); Carbon Dioxide 22 mmol/L (22-30); Chloride 106 mmol/L (98-107); Estimated Glomerular Filt Rate > 60; Glucose 96 mg/dL (65-110); Potassium 4.3 mmol/L (3.4-5.0); Sodium 137 mmol/L (137-145)
[2021-01-12 17:09] LABS: Thyroid Stimulating Hormone 0.611 uIU/mL (0.465-4.680)
== END 2021-01-12 14:38 | disposition home or self-care (01) ==
PROVIDERS: PCP Pediatrics; Visit Provider Internal Medicine
DX: D69.41 Evans syndrome (principal); E03.9 Hypothyroidism, unspecified; R74.8 Abnormal levels of other serum enzymes; D64.9 Anemia, unspecified
CPT/HCPCS: 36415; 80053; 84443; 85025

== ENCOUNTER 2021-02-01 16:55 | Outpatient (CLI) | payer BC, MEDICAID, SELFPAY ==
[2021-02-01 17:13] LABS: Basophils Absolute Auto 0.2 K/mm3 (0.0-0.1); Basophils Percent Auto 1.3 % (0.2-1.2); Eosinophils Absolute Auto 0.5 K/mm3 (0-0.3); Eosinophils Percent Auto 2.6 % (0-4.4); Hematocrit 41.5 % (42.0-52.0); Immature Granulocyte Absolute 0.08 K/mm3 (0.00-0.031); Immature Granulocyte Percent A 0.5 % (0-0.5); Immature Reticulocyte Fraction 15.9 % (3.0-15.9); Lymphocytes Absolute Auto 2.62 K/mm3 (0.9-3.2); Lymphocytes Percent Auto 15.4 % (18.3-44.2); Mean Corpuscular HGB Conc 31.3 g/dl (32-36); Mean Corpuscular Hemoglobin 31.3 pg (26-34); Mean Platelet Volume 12.4 fl (7.4-10.4); Neutrophils Absolute Auto 12.7 K/mm3 (1.3-6.7); Neutrophils Percent Auto 74.2 % (45.5-73.1); Platelet Count Result 161 k/mm3 (150-375); Red Blood Count 4.15 M/mm3 (4.6-6.20); Red Cell Distribution Width 15.9 % (11.5-14.5); Reticulocyte Hemoglobin Conten 31.2 pg (28.2-35.7); Reticulocyte Percent 1.07 % (0.7-4.3); Reticulocytes Absolute 0.04 B/L (32.2-175.7); White Blood Count 17.1 K/mm3 (4.5-10.0)
[2021-02-01 17:32] LABS: Alanine Aminotransferase 96 U/L (4-50); Albumin Level 3.6 g/dL (3.5-5.1); Alkaline Phosphatase 321 U/L (38-126); Anion Gap 7 mmol/L (8-16); Aspartate Amino Transferase 75 U/L (17-59); Bilirubin,Total 0.2 mg/dL (0.2-1.3); Blood Urea Nitrogen 17 mg/dL (9-20); Calcium 8.9 mg/dL (8.4-10.2); Carbon Dioxide 25 mmol/L (22-30); Chloride 107 mmol/L (98-107); Estimated Glomerular Filt Rate > 60; Glucose 83 mg/dL (65-110); Sodium 139 mmol/L (137-145)
[2021-02-04 21:33] LABS: Haptoglobin 159 mg/dL (43-212)
== END 2021-02-01 16:56 | disposition home or self-care (01) ==
LOC: ANHLAB 16:59
PROVIDERS: PCP Pediatrics; Visit Provider Internal Medicine
DX: D69.41 Evans syndrome (principal); R74.8 Abnormal levels of other serum enzymes; D64.9 Anemia, unspecified; E03.9 Hypothyroidism, unspecified
CPT/HCPCS: 36415; 80053; 82728; 83010; 84443; 85025; 85046

== ENCOUNTER 2021-06-30 13:16 | Outpatient (CLI) | payer BC, MEDICAID, SELFPAY ==
[2021-06-30 14:23] LABS: Hematocrit 47.7 % (42.0-52.0); Hemoglobin 15.8 g/dL (14.0-18.0); Immature Platelet Fraction Pct 8.1 % (0.9-11.2); Mean Corpuscular HGB Conc 33.1 g/dl (32-36); Mean Corpuscular Hemoglobin 32.4 pg (26-34); Mean Corpuscular Volume 97.9 fl (80-100); Mean Platelet Volume 11.9 fl (7.4-10.4); Platelet Count Result 115 k/mm3 (150-375); Red Blood Count 4.87 M/mm3 (4.6-6.20); Red Cell Distribution Width 15.4 % (11.5-14.5); White Blood Count 9.7 K/mm3 (4.5-10.0)
[2021-06-30 14:39] LABS: Alanine Aminotransferase 57 U/L (4-50); Albumin Level 3.9 g/dL (3.5-5.1); Alkaline Phosphatase 176 U/L (38-126); Anion Gap 8 mmol/L (8-16); Aspartate Amino Transferase 38 U/L (17-59); Bilirubin,Total 0.2 mg/dL (0.2-1.3); Blood Urea Nitrogen 18 mg/dL (9-20); Calcium 8.8 mg/dL (8.4-10.2); Carbon Dioxide 24 mmol/L (22-30); Chloride 105 mmol/L (98-107); Estimated Glomerular Filt Rate > 60; Glucose 112 mg/dL (65-110); Potassium 4.2 mmol/L (3.4-5.0); Sodium 137 mmol/L (137-145)
[2021-06-30 15:10] LABS: Cortisol Random 1.64 ug/dL; Thyroid Stimulating Hormone 0.282 uIU/mL (0.465-4.680)
[2021-07-05 16:17] LABS: Adrenocorticotropic Hormone <5 pg/mL (6-50)
== END 2021-06-30 13:17 | disposition home or self-care (01) ==
PROVIDERS: PCP Pediatrics; Visit Provider Internal Medicine
DX: D69.41 Evans syndrome (principal); E27.3 Drug-induced adrenocortical insufficiency; T38.0X5A Adverse effect of glucocorticoids and synthetic analogues, initial encounter; D61.818 Other pancytopenia; E03.9 Hypothyroidism, unspecified; D64.9 Anemia, unspecified
CPT/HCPCS: 36415; 80053; 82024; 82533; 82728; 84443; 85027; 85055

== ENCOUNTER 2021-09-25 17:38 | Observation (INO) | payer BC, MEDICAID, SELFPAY ==
[2021-09-25] VITALS (22 sets, daily range): BP systolic 78–111; BP diastolic 37–68; PULSE 62–104; RESP 16–34; TEMP 36.4; O2SAT 93–98
--- NOTE | ~2021-09-25 | CT_ITS ---
EXAMINATION: CT abdomen pelvis w con DATE: 09/25/2021 20:04 INDICATION: abd pain TECHNIQUE: Computed tomography (CT) of the abdomen and pelvis was performed with 100 mL Omnipaque-350 intravenous contrast. The dose-length product was 389.41 mGy-cm. COMPARISON: None. FINDINGS: Lower thorax: Bronchial wall thickening, possible airway debris, with centrilobular/tree-in-bud opaci ties in the medial right middle lobe. Liver: Normal. Biliary/Gallbladder: Partially collapsed. No bile duct dilation. Pancreas: No mass or duct dilation. No evidence of annular pancreas. Spleen: Surgically absent. Adrenals:No mass. Kidneys: No mass, stone, or hydronephrosis. GI tract: Moderate gastric distention with mild wall thickening. Severe antral versus first portion o f the duodenum dilation. Transition point in the right upper quadrant. No obstructing mass however on e could be obscured due to displaced normal anatomy and multiple loops of nondistended bowel. The nor mal duodenal C-loop is not present and the duodenum does not appear to cross the midline. Appendix no t visualized. Mesentery/Peritoneum: Marked mesenteric, sarath hepatic, periaortic, and pelvic/inguinal lymphadenopat hy. Retroperitoneum: No mass. Pelvis: Pelvic organs are within normal limits. Soft Tissues: Soft tissues and body wall unremarkable. Bones: No acute osseous finding. IMPRESSION: 1. Gastric outlet obstruction, possibly secondary to midgut malrotation or lymphomatous involvement o f the duodenum, with severe dilation of the antrum/first portion of the duodenum. 2. Marked abdominopelvic lymphadenopathy concerning for lymphoma. 3. Bronchiolitic change in the right middle lobe may reflect atypical infection, aspiration, or small airways disease. Reviewed, dictated and finalized at location K. IMPRESSION: 1. Gastric outlet obstruction, possibly secondary to midgut malrotation or lymp homatous involvement of the duodenum, with severe dilation of the antrum/first portion of the duodenum. 2. Marked abdominopelvic lymphadenopathy concerning for lymphoma. 3. Bronchiolitic change in the right middle lobe may reflect atypical infection , aspiration, or small airways disease.
--- NOTE | ~2021-09-25 | XR_ITS ---
EXAMINATION: XR chest 1V portable Exam Date/Time: 09/25/2021 18:07 CDT HISTORY: fever Comparison: 10/20/2020. RESULT: Lines, tubes, and devices: Multiple old fractured sternotomy wires, stable in position. Lungs and pleura: Streaky linear bilateral perihilar opacities with a suggestion of cuffing. Cardiomediastinal silhouette: Stable cardiomediastinal silhouette. Other: No acute osseous or upper abdominal finding. IMPRESSION: Pulmonary findings may reflect bronchiolitis, as can be seen with infection, asthma, and small airway s disease. Reviewed, dictated and finalized at location K. IMPRESSION: Pulmonary findings may reflect bronchiolitis, as can be seen with infection, as thma, and small airways disease.
[2021-09-25 18:15] LABS: Basophils Absolute Auto 0.2 K/mm3 (0.0-0.1); Basophils Percent Auto 1.1 % (0.2-1.2); Eosinophils Percent Auto 0.1 % (0-4.4); Hematocrit 44.5 % (42.0-52.0); Hemoglobin 14.6 g/dL (14.0-18.0); Immature Granulocyte Absolute 0.09 K/mm3 (0.00-0.031); Immature Granulocyte Percent A 0.6 % (0-0.5); Immature Platelet Fraction Pct 9.6 % (0.9-11.2); Lymphocytes Percent Auto 14.5 % (18.3-44.2); Mean Corpuscular HGB Conc 32.8 g/dl (32-36); Mean Corpuscular Volume 97.6 fl (80-100); Monocytes Absolute Auto 0.7 K/mm3 (0.1-0.6); Monocytes Percent Auto 4.3 % (2.6-8.5); Neutrophils Percent Auto 79.4 % (45.5-73.1); Platelet Count Result 139 k/mm3 (150-375); Red Blood Count 4.56 M/mm3 (4.6-6.20); Red Cell Distribution Width 15.6 % (11.5-14.5); White Blood Count 15.1 K/mm3 (4.5-10.0)
[2021-09-25 18:26] LABS: Lactic Acid Reflex 1.1 mmol/L (0.7-2.0)
[2021-09-25] MEDS: SODIUM CHLORIDE 0.9% IV 1,000 ML 999 ML IV CONT ×2 (18:43→19:14)
[2021-09-25 18:48] LABS: Alanine Aminotransferase 112 U/L (6-50); Albumin Level 3.6 g/dL (3.5-5.1); Alkaline Phosphatase 246 U/L (38-126); Anion Gap 5 mmol/L (8-16); Aspartate Amino Transferase 66 U/L (17-59); Bilirubin,Total 0.3 mg/dL (0.2-1.3); Blood Urea Nitrogen 19 mg/dL (9-20); Calcium 9.1 mg/dL (8.4-10.2); Carbon Dioxide 22 mmol/L (22-30); Chloride 111 mmol/L (98-107); Estimated CRCL calculation 82 ml/min; Estimated Glomerular Filt Rate > 60; Glucose 111 mg/dL (65-110); Lipase 44 U/L (23-300); Potassium 4.4 mmol/L (3.4-5.0); Sodium 138 mmol/L (137-145)
[2021-09-25 18:49] LABS: Prothrombin Time 12.9 Seconds (11.1-14.7)
[2021-09-25 19:16] LABS: Influenza A QL RT-PCR Negative (Negative); Influenza B QL RT-PCR Negative (Negative); SARS-CoV-2 RNA PCR Negative
[2021-09-25 19:43] LABS: Magnesium 2.1 mg/dL (1.6-2.3)
--- NOTE | 2021-09-25 20:13 | ECG_ITS ---
Measurements Intervals [place] Rate: 80 P: 24 DC: 118 QRS: -14 QRSD: 121 T: -13 QT: 399 QTc: 462 Interpretive Statements SINUS RHYTHM WITH SHORT DC INTERVAL WITH FREQUENT VENTRICULAR PREMATURE COMPLEXES IN A BIGEMINAL PATTERN RIGHT BUNDLE BRANCH BLOCK [120+ ms QRS DURATION, UPRIGHT V1, 40+ ms S IN I/aVL/V4/V5/V6] MODERATE VOLTAGE CRITERIA FOR LVH, CONSIDER NORMAL VARIANT [MEETS CRITERIA IN ONE OF: R(aVL), S(V1), R(V5), R(V5/V6)+S(V1)] NO PREVIOUS ECG AVAILABLE FOR COMPARISON Electronically Signed On 09-26-2021 7:10:52 CDT by Inderjit Vargas M.D.
[2021-09-25 20:20] LABS: Add Urine Microscopic? YES; Appearance Urine Clear (Clear); Bilirubin Urine Negative (Negative); Blood Urine Negative (Negative); Color Urine Yellow (Yellow); Glucose Urine UA Negative (Negative); Ketones Urine Trace mg/dL (Negative); Leukocyte Esterase Ur Trace LEU/UL (Negative); Nitrate Urine Negative (Negative); Protein Urine Negative (Negative); Urobilinogen Urine 0.2 mg/dL (<2.0)
[2021-09-25 20:28] LABS: Mucus Urine Rare /lpf; Squamous Epithelial Cell Urine Few /hpf (Few)
--- NOTE | 2021-09-25 20:55 | ED.GENADULT ---
HPI - General Adult General Chief complaint: Nausea/Vomiting/Diarrhea <Jorge Brady DO - Last Filed: 09/26/21 12:13> Stated complaint: vomiting; adrenal failure <Jorge Brady DO - Last Filed: 09/26/21 12:13> Time Seen by Provider: 09/25/21 17:56 <Jorge Brady DO - Last Filed: 09/26/21 12:13> Source: RN notes reviewed <Jorge Brady DO - Last Filed: 09/26/21 12:13> History of Present Illness HPI narrative: Patient presents emergency department from home with father for nausea vomiting. Patient with history of Down syndrome history is per the patient's father the patient began to experience nausea vomiting this afternoon. Patient has a history of adrenal crisis performed past and the father gave him 100 mg of Solu-Cortef at approximately 3:30 PM today. States usually this resolves the patient's nausea vomiting. EKG have continued to the ER evaluation states is normally improved with fluids and the patient does normally have low blood pressures during these times. Patient is normally followed at [place] per patient's father he was normal last night and this morning he did have a fever up to 100.7 at home he denies any known cough denies any rhinorrhea <Jorge Brady DO - Last Filed: 09/26/21 12:13> Related Data Allergies/adverse reactions: Allergies Allergy/AdvReac Type Severity Reaction Status Date / Time gluten Allergy Diarrhea Verified 09/25/21 18:11 <Jorge Brady DO - Last Filed: 09/26/21 12:13> Review of Systems Review of Systems: Gen.: Fever of 100.7 Eyes: Denies eye pain or visual change ENT: Denies congestion Respiratory: Denies shortness of breath or cough CV: Denies chest pain or palpitations GI: Reports nausea and vomiting denies diarrhea Musculoskeletal: Denies back pain or muscle pain Neuro: Denies headache s Skin: Denies rash Except as documented, all other systems reviewed and negative. Systems per father <Jorge Brady DO - Last Filed: 09/26/21 12:13> PMFSH Past Medical History Medical History: Medical History Anemia Hypothyroidism, unspecified <Jorge Brady DO - Last Filed: 09/26/21 12:13> Social History Social History: Social History Smoking status: Never smoker Alcohol intake: never Substance use: never Gender identity (if verbalized by the patient): Male Spiritual care concerns: No <Jorge Brady DO - Last Filed: 09/26/21 12:13> Exam Narrative: APPEARANCE: No acute distress, nontoxic, resting in bed EYES: EOMI HEENT: Normocephalic, atraumatic, RESPIRATORY: No respiratory distress Clear to auscultation bilaterally with no rhonchi wheezing or rales. CARDIOVASCULAR: Regular rate and rhythm without murmurs rubs or gallops. ABDOMINAL: Soft, nondistended mild diffuse during palpation no rebound or guarding MUSCULOSKELETAl: Moves all extremities. NEURO: Awake and alert. Following commands, SKIN:: Warm, dry. No rashes lesions or abrasions <Jorge Brady DO - Last Filed: 09/26/21 12:13> Course Course Emergency Course: Discussed with patient's father presentation work-up he states the patient normally receives 1 g Rocephin with his adrenal crisis we will give at this time Discussed with patient's father results of work-up we discussed gastric L obstruction. Since patient is had no emesis in the ED. Father requested patient does not have an NG tube at this time until he is evaluated by the team at [facility]. Does request transfer to [place] at this time states patient's liver enzymes are chronically elevated Discussed with ICU physician Dr. Moctezuma at [facility] at this time does not feel that patient requires the ICU but is stable for the floor recommends patient receive next dose of 100 mg of hydrocortisone at this time recommend starting the patient on Rocep
[2021-09-25] MEDS: HYDROCORTISONE SODIUM SUCCINATE 100 MG/2 ML VIAL IV PUSH (21:49)
[2021-09-25] MEDS: SODIUM CHLORIDE 0.9% IV 1,000 ML 100 ML IV CONT (22:18)
[2021-09-25] MEDS: PANTOPRAZOLE SODIUM IV 40 MG VIAL IV PUSH (22:18)
[2021-09-26] VITALS (11 sets, daily range): BP systolic 107–120; BP diastolic 57–76; PULSE 50–71; RESP 15–30; TEMP 36.1; O2SAT 93–96; BMI 23.6
--- NOTE | 2021-09-26 00:16 | PC.NURSE ---
2257: Patient accepted to [facility]. On priority waitlist for bed.
--- NOTE | 2021-09-26 00:24 | PC.NURSE ---
Pt resting comfortable in bed. Bed in low position. Father at bedside. Johny from [facility] Transfer line called for Pt update. Pt cont awaiting bed here. Pillows and blankets given. Bedside commode obtained for bathroom use, Pt.
--- NOTE | 2021-09-26 01:13 | PM.IMHP ---
H&P: HPI History of Present Illness Date/Time: 09/26/21 01:13 [facility] Past Medical History Medical History Anemia Hypothyroidism, unspecified Social History Social History Second hand tobacco smoke exposure: No Gender identity (if verbalized by the patient): Male Meds Home Medications and Allergies Home Medications Medication Instructions Recorded Confirmed Type albuterol sulfate 2.5 mg/3 mL 11/28/20 History (0.083 %) solution for nebulization dexamethasone 4 mg tablet 11/28/20 History filgrastim 480 mcg/0.8 mL 11/28/20 History injection syringe (Neupogen) mometasone 200 mcg/actuation HFA inhalation 11/28/20 History aerosol inhaler (Asmanex HFA) nystatin 100,000 unit/mL oral 11/28/20 History suspension levothyroxine 150 mcg tablet 150 mcg PO DAILY #90 tabs 01/29/21 Rx hydrocortisone sod succ (PF) 100 100 mg (2 mL) IM DAILY PRN adrenal 03/22/21 Rx mg/2 mL solution for injection crisis #10 ea (Solu-Cortef Act-O-Vial (PF)) amoxicillin 875 mg-potassium 1 tablet PO Q12H #30 tabs 07/11/21 Rx clavulanate 125 mg tablet benzonatate 200 mg capsule 200 mg PO TID PRN cough #30 caps 07/13/21 Rx valacyclovir 1 gram tablet 2,000 mg PO Q12H 1 day #4 tabs 08/31/21 Rx (Valtrex) prednisone 1 mg tablet 2 mg PO BID #240 tabs 09/11/21 Rx sertraline 50 mg tablet 50 mg PO DAILY #30 tabs 09/11/21 Rx Allergies Allergy/AdvReac Type Severity Reaction Status Date / Time gluten Allergy Diarrhea Verified 09/25/21 18:11 Vital Signs Vital Signs - 24 hr 09/25/21 17:43 09/25/21 19:12 09/25/21 19:12 Temperature 97.5 F L Pulse Rate 104 H 65 71 Respiratory Rate 20 16 21 H Blood Pressure 78/37 L 108/68 Pulse Oximetry 98 95 95 Oxygen Delivery Room Air 09/25/21 19:39 06/25/22 19:45 09/25/21 20:14 Temperature Pulse Rate 73 73 78 Respiratory Rate 31 H 17 31 H Blood Pressure Pulse Oximetry 95 Oxygen Delivery 09/25/21 20:15 09/25/21 20:16 09/25/21 20:37 Temperature Pulse Rate 70 76 68 Respiratory Rate 32 H 25 H 26 H Blood Pressure 111/61 Pulse Oximetry 94 93 93 Oxygen Delivery 09/25/21 20:58 09/25/21 21:20 09/25/21 21:30 Temperature Pulse Rate 78 81 79 Respiratory Rate 22 H 17 17 Blood Pressure Pulse Oximetry 95 95 93 Oxygen Delivery 09/25/21 21:31 09/25/21 21:59 09/25/21 22:02 Temperature Pulse Rate 70 89 70 Respiratory Rate 22 H 21 H 16 Blood Pressure 104/60 Pulse Oximetry 94 94 Oxygen Delivery 09/25/21 22:24 Temperature Pulse Rate 69 Respiratory Rate 18 Blood Pressure Pulse Oximetry 96 Oxygen Delivery H&P: Results Labs Labs: Short CBC 09/25/21 Range/Units 18:06 WBC 15.1 H (4.5-10.0) K/mm3 Hgb 14.6 (14.0-18.0) g/dL Hct 44.5 (42.0-52.0) % Plt Count 139 L (150-375) k/mm3 BMP 09/25/21 18:32 Sodium 138 Potassium 4.4 Chloride 111 H Carbon Dioxide 22 BUN 19 Creatinine 1.00 Glucose 111 H Calcium 9.1 Liver Function 09/25/21 Range/Units 18:32 Total Bilirubin 0.3 (0.2-1.3) mg/dL AST 66 H (17-59) U/L ALT 112 H (6-50) U/L Alkaline Phosphatase 246 H (38-126) U/L Albumin 3.6 (3.5-5.1) g/dL Urine 09/25/21 Range/Units 20:05 Urine Color Yellow (Yellow) Urine Appearance Clear (Clear) Urine pH 6.0 (5.0-9.0) Ur Specific [place] 1.020 (1.001-1.035) Urine Protein Negative (Negative) mg/dL Urine Glucose (UA) Negative (Negative) mg/dL
--- NOTE | 2021-09-26 01:19 | PC.NURSE ---
This RN gave report to ZOFIA Agustin on 3 med/surg, and pt about to go upstairs when he got bed assignment at [facility].
--- NOTE | 2021-09-26 01:35 | PC.NURSE ---
After giving report to Ramona, charge nurse at [facility], she calls this RN back to inform us that we no longer have an assigned bed there because pt requires private room d/t his guardian. [facility]
--- NOTE | 2021-09-26 02:30 | PC.NURSE ---
This patient, Yoav Viera, was admitted to [facility] Surg Room 329-01. Patient/family oriented to hospital policies and general routines including ID bracelet, bed and alarms, visiting hours, pain management, procedures, bathroom and other care routines, personal items, smoking policy, room service/diet, and visiting hours. Information on how to activate the Rapid Response Team has been discussed. Patient/Family are encouraged to report perceived risks to care and to ask questions if they do not understand what they are told or what they should do.
--- NOTE | 2021-09-26 03:26 | PC.NURSE ---
Report to ZOFIA Byrd at [facility]. Asked that we call her at [phone] when EMS leaves here.
--- NOTE | 2021-09-26 04:35 | PM.IMHP ---
H&P: HPI History of Present Illness Date/Time: 09/26/21 04:35 Chief Complaint: Nausea and vomiting Narrative: This is a 25-year-old male with past medical history significant for down syndrome, hypoadrenalism, history of malrotation and duodenal atresia, presents to the emergency room with his father due to nausea, vomiting, abdominal pain. History has been obtained mainly from father as patient is unable to provide any history secondary to his Down syndrome. Preliminary workup was significant for gastric outlet obstruction and multiple lymphadenopathies present. Patient is awaiting bed at outside hospital tertiary facility where he usually gets his care at. Review of Systems Review of Systems: ROS unobtainable: Yes unobtainable due to medical condition PMFSH Past Medical History Medical History Anemia Hypothyroidism, unspecified Social History Social History Smoking status: Never smoker Alcohol intake: never Substance use: never Gender identity (if verbalized by the patient): Male Spiritual care concerns: No Meds Home Medications and Allergies Allergies Allergy/AdvReac Type Severity Reaction Status Date / Time gluten Allergy Diarrhea Verified 09/25/21 18:11 Vital Signs Vital Signs - 24 hr 09/25/21 17:43 09/25/21 19:12 09/25/21 19:12 Temperature 97.5 F L Pulse Rate 104 H 65 71 Respiratory Rate 20 16 21 H Blood Pressure 78/37 L 108/68 Pulse Oximetry 98 95 95 Oxygen Delivery Room Air 09/25/21 19:39 09/25/21 19:45 09/25/21 20:14 Temperature Pulse Rate 73 73 78 Respiratory Rate 31 H 17 31 H Blood Pressure Pulse Oximetry 95 Oxygen Delivery 09/25/21 20:15 09/25/21 20:16 09/25/21 20:37 Temperature Pulse Rate 70 76 68 Respiratory Rate 32 H 25 H 26 H Blood Pressure 111/61 Pulse Oximetry 94 93 93 Oxygen Delivery 09/25/21 20:58 09/25/21 21:20 09/25/21 21:30 Temperature Pulse Rate 78 81 79 Respiratory Rate 22 H 17 17 Blood Pressure Pulse Oximetry 95 95 93 Oxygen Delivery 09/25/21 21:31 09/25/21 21:59 09/25/21 22:02 Temperature Pulse Rate 70 89 70 Respiratory Rate 22 H 21 H 16 Blood Pressure 104/60 Pulse Oximetry 94 94 Oxygen Delivery 09/25/21 22:24 09/25/21 22:30 09/25/21 22:31 Temperature Pulse Rate 69 68 72 Respiratory Rate 18 29 H 20 Blood Pressure 105/56 L Pulse Oximetry 96 94 95 Oxygen Delivery 09/25/21 22:56 09/25/21 23:02 09/25/21 23:15 Temperature Pulse Rate 66 63 63 Respiratory Rate 22 H 34 H 30 H Blood Pressure 107/52 L Pulse Oximetry 95 95 94 Oxygen Delivery 09/25/21 23:16 09/25/21 23:59 09/26/21 00:00 Temperature Pulse Rate 62 66 71 Respiratory Rate 30 H 17 16 Blood Pressure 117/73 Pulse Oximetry 95 94 93 Oxygen Delivery 09/26/21 00:01 09/26/21 00:17 09/26/21 00:19 Temperature Pulse Rate 71 63 64 Respiratory Rate 27 H 15 24 H Blood Pressure 111/57 L Pulse Oximetry 93 94 94 Oxygen Delivery 09/26/21 00:30 09/26/21 00:31 09/26/21 00:45 Temperature Pulse Rate 62 61 62 Respiratory Rate 28 H 30 H 22 H Blood Pressure 107/76 107/66 Pulse Oximetry 93 94 95 Oxygen Delivery 09/26/21 00:46 09/26/21 01:00 09/26/21 01:16 Temperature Pulse Rate 60 60 62 Respiratory Rate 22 H 19 Blood Pressure Pulse Oximetry 95 95 96 Oxygen Delivery 09/26/21 03:01 Temperature Pulse Rate Respiratory Rate Blood Pressure Pulse Oximetry Oxygen Delivery Room Air Exam Narrative: Patient is laying in a stretcher Const: General: comfortable, no acute distress, alert, awake and other (Down syndrome stigmata.) Nutritional Appearance: average body habitus HENMT: Head: normal to inspection, normocephalic and atraumatic Ears: hearing grossly normal bilaterally Face and sinus: normal facial exam Eyes: General: appearance leana
[2021-09-26] MEDS: HYDROCORTISONE SODIUM SUCCINATE 100 MG/2 ML VIAL IV PUSH (06:23)
--- NOTE | 2021-09-26 08:26 | ECG_ITS ---
Measurements Intervals [place] Rate: 43 P: -11 SC: 134 QRS: -2 QRSD: 121 T: -11 QT: 476 QTc: 405 Interpretive Statements SINUS BRADYCARDIA POSSIBLE RIGHT VENTRICULAR CONDUCTION DELAY [RSR (QR) IN V1/V2] COMPARED TO ECG 09/25/2021 20:20:23 SINUS BRADYCARDIA NOW PRESENT, NO PVCS Electronically Signed On 09-27-2021 7:09:22 CDT by Inderjit Vargas M.D.
--- NOTE | 2021-09-26 10:01 | PM.TDS ---
Transfer Discharge Sum: Prov Provider Date of admission: 09/25/21 23:46 Primary care physician: Zoila Gleason MD Admitting clinician: Stacy Myers MD DS: Admitting Diagnosis Discharge Date 09/26/21 Admitting Diagnosis Nausea and vomiting DS: Discharge Diagnosis Discharge Diagnosis (1) Nausea and vomiting: Code(s): R11.2 - Nausea with vomiting, unspecified Status: Acute (2) Gastric outlet obstruction: Code(s): K31.1 - Adult hypertrophic pyloric stenosis Status: Acute (3) Acute adrenal crisis: Code(s): E27.2 - Addisonian crisis Status: Acute (4) Community acquired pneumonia: Code(s): J18.9 - Pneumonia, unspecified organism Status: Acute (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 Status: Acute (6) Lymphadenopathy: Code(s): R59.1 - Generalized enlarged lymph nodes Status: Acute (7) Elevated liver enzymes: Code(s): R74.8 - Abnormal levels of other serum enzymes Status: Acute Transfer Discharge Sum: Med Medications Active and Home Medications: Active Medications Hydrocortisone Sodium Succinate (Hydrocortisone Sodium Succinate 100 Mg/2 Ml Vial) 100 mg IV PUSH Q8HR TIN Last Admin: 09/26/21 06:23 Dose: 100 mg Ceftriaxone Sodium/Dextrose (Rocephin 1 Gm/D5w 50 Ml) 1 gm in 50 mls @ 100 mls/hr IVPB HS TIN Azithromycin (Zithromax) 500 mg in 250 mls @ 250 mls/hr IVPB HS TIN Transfer Discharge Sum: Hosp Hospital Course Hospital course: Yoav Viera is a 25 year old male with Down syndrome, Jose Roberto syndrome and s/p splenectomy here for nausea and vomiting. Please see H&P for details. Patient presented to the emergency department from home with his father with complaints of nausea and vomiting. Patient has a history adrenal crisis in the past and his father gave him Solu-Cortef 100 mg on the day of admission. His father is a physician. Symptoms usually resolve but they did not so patient was brought to the emergency room for evaluation. Blood pressure was 78/37 on admission. EKG showed sinus rhythm with short CO interval with frequent PVCs and right bundle branch block with voltage criteria for LVH. Repeat EKG showed sinus bradycardia rate of 43 with inverted T-waves in inferior leads. Urinalysis showed trace leukocyte esterase and 7-9 white cells and trace ketones. Urine and blood cultures are pending. Chest x-ray showed bilateral perihilar opacities which could be bronchiolitis. CT of the abdomen pelvis with contrast showed bronchial wall thickening possible airway debris with tree-in-bud opacifications in the right middle lobe. There was concern for community acquired vs aspiration PNA. He had moderate gastric distention with mild wall thickening and severe antral verses 1st portion duodenal dilation. He had evidence of malrotation. He had marked mesenteric, sarath hepatic, periaortic and pelvic/inguinal lymphadenopathy. The patient has had pyloric surgery and has known dilated duodenum. White count was 15K with platelets of 139K. Normal hemoglobin. CMP was normal except for AST 66 and ALT 112 with alk-phos 246 and normal bili. Influenza and COVID were negative. NG tube was offered but family refused. Patient was treated with IV fluids, Rocephin, azithromycin and Solu-Cortef. He was also given a dose of Protonix. He was accepted for transfer but no beds available so he was admitted for further care. Patient had clinical improvement. He remained NPO. Discussed the case with the patient's father who is a physician. He was able call up old images from [place] where the patient gets majority of his care. Patient has been known to have adenopathy in the past but was only categorized as mild. We discussed options but explained that patient at the minimum would need a upper GI with small-bowel series to ensure patency of the GI tract. A bed did become available at the outside hospital. The family di
--- NOTE | 2021-09-26 10:50 | PCCCNOTE ---
On 09/26/21, the student, [Elissa Lau], provided care and completed [facility] documentation on this patient. I have reviewed the student's documentation and agree with the findings.
--- NOTE | 2021-09-28 06:41 | PC.NURSE ---
Urine cx growing 50,000-100,000 non-uropathogenic gram + organism. May represent colonizers from external/internal genitalia. Dr. Genna chatman.
--- NOTE | 2021-10-01 08:32 | PC.NURSE ---
Blood cx are negative.
== END 2021-09-26 10:10 | disposition other institution (70) ==
LOC: ANHED 23:43 → ANH3MEDSUR 09-26 00:47
PROVIDERS: Emergency Medicine; Admitting Provider Internal Medicine; Emergency Provider Emergency Medicine; PCP Pediatrics; Visit Provider Internal Medicine
DX: K31.1 Adult hypertrophic pyloric stenosis (principal); E27.2 Addisonian crisis; D69.41 Evans syndrome; J18.9 Pneumonia, unspecified organism; R59.1 Generalized enlarged lymph nodes; R11.2 Nausea with vomiting, unspecified; R74.8 Abnormal levels of other serum enzymes; Q90.9 Down syndrome, unspecified; D64.9 Anemia, unspecified; E03.9 Hypothyroidism, unspecified; Z20.822 Contact with and (suspected) exposure to COVID-19
CPT/HCPCS: 36415; 71045; 74177; 80053; 81001; 83605; 83690; 83735; 85025; 85055; 85610; 85730; 87040; 87086; 87088; 87502; 93005; 96361; 96365; 96375; 96376; 99285; C9113; C9803; G0378; J0456; J0696; J1720; J7030; Q9967; U0003; U0005

== ENCOUNTER 2021-10-08 14:43 | Observation (INO) | payer BC, MEDICAID, SELFPAY ==
[2021-10-08] VITALS (61 sets, daily range): BP systolic 71–110; BP diastolic 33–82; PULSE 63–111; RESP 12–29; TEMP 36.6–36.9; O2SAT 93–100
--- NOTE | ~2021-10-08 | US_ITS ---
US abdomen limited DATE: 10/08/2021 16:49 INDICATION: Elevated liver enzymes TECHNIQUE: Real-time imaging of liver, pancreas, gallbladder COMPARISON: 09/25/2021 CT abdomen pelvis FINDINGS: No hepatic or pancreatic space-occupying mass lesion is detected. Normal hepatopedal portal venous flow direction. No gallstones, gallbladder wall thickening, pericholecystic fluid. Negative sonographic Cm's sign . The common bile duct measures 3.7 mm, normal. IMPRESSION: No significant abnormality Reviewed, dictated and finalized at [facility]. Reviewed, dictated and finalized at [facility]. IMPRESSION: No significant abnormality
--- NOTE | ~2021-10-08 | CT_ITS ---
EXAMINATION: CT chest abdomen pelvis w con DATE: 10/08/2021 22:18 INDICATION: Elevated liver enzymes. Cough, fever, lethargy, jaundice. History of adrenal crisis. TECHNIQUE: Computed tomography (CT) of the chest, abdomen, and pelvis was performed with 100 CC Omnip aque 300 intravenous contrast. Automated exposure control and iterative reconstruction technique were employed. Exam dose: 322.28 mGy-cm total exam DLP. COMPARISON: 09/26/2021 CT abdomen pelvis 10/08/2021 Limited abdominal ultrasound examination FINDINGS: CHEST CT: Small sternal sutures suggesting pediatric age sternotomy. Bilateral hyperinflation. Scattered bilateral pneumatoceles. The tracheobronchial tree is patent. No pulmonary infiltrate or consolidation or pulmonary mass lesion is detected. There is superior mediastinal, right paratracheal, prevascular and subcarinal lymphadenopathy, bilate ral axillary luis prominence, right greater than left. Normal heart size. No pericardial or pleural effusion. No thoracic aortic aneurysm or dissection. There is relatively small caliber of the thoracic aorta, t he aortic arch measuring approximately 12.7 mm diameter.. ABDOMEN/PELVIS CT: The gallbladder is present. No bile duct or pancreatic duct dilatation. No hepatic space-occupying mass lesion. There are surgical clips in the left upper quadrant and absen ce of the spleen. No pancreatic mass lesion or calcification is noted. Normal morphology of the adrenal glands. 7 mm lower pole right renal cyst. No other renal space-occupying mass lesion, urinary tract calculus or hydroureteronephrosis. The urinary bladder is unremarkable. There is peripancreatic, gastrohepatic, portal, periaortic, aortocaval, prominent right common iliac and bilateral external iliac and inguinal lymphadenopathy. Small abdominal aorta, measuring approximately 9 mm diameter. Moderately dilated probable proximal duodenum, likely associated with malrotation, with abnormal posi tion of the ligamentum of Treitz in the right abdomen. Hypogonadism is suggested. No suspicious osteolytic or osteoblastic lesions. IMPRESSION: Thoracic, abdominal, pelvic and inguinal as well as axillary lymphadenopathy; consider l ymphoma, less likely metastatic disease Probable splenectomy Pediatric age sternotomy Malrotation anomaly right-sided ligament of Treitz; suggestion of duodenal dilatation likely secondar y to the malrotation Reviewed, dictated and finalized at [facility]. Reviewed, dictated and finalized at location [facility]. IMPRESSION: Thoracic, abdominal, pelvic and inguinal as well as axillary lymph adenopathy; consider lymphoma, less likely metastatic disease Probable splenectomy Pediatric age sternotomy Malrotation anomaly right-sided ligament of Treitz; suggestion of duodenal dila tation likely secondary to the malrotation
--- NOTE | ~2021-10-08 | XR_ITS ---
XR chest 1V portable 10/08/2021 15:25 Indication: Lethargy. Cough. Fever. Procedure: AP portable chest Comparison: 09/25/2021 and 10/20/2020 Findings: Borderline heart size. There are median sternotomy wires. There are bilateral perihilar int erstitial infiltrates with peribronchial thickening. No peripheral consolidation, pleural effusion or pneumothorax. No acute osseous abnormality. Impression: 1: Bilateral perihilar interstitial infiltrates with peribronchial thickening which may reflect bronc hiolitis or mild edema. Reviewed, dictated and finalized at location [facility]. Impression: 1: Bilateral perihilar interstitial infiltrates with peribronchial thickening w hich may reflect bronchiolitis or mild edema.
[2021-10-08 15:18] LABS: Hematocrit 23.3 % (42.0-52.0); Hemoglobin 7.5 g/dL (14.0-18.0); Mean Corpuscular HGB Conc 32.2 g/dl (32-36); Mean Corpuscular Hemoglobin 33.6 pg (26-34); Mean Corpuscular Volume 104.5 fl (80-100); Red Blood Count 2.23 M/mm3 (4.6-6.20); Red Cell Distribution Width 17.1 % (11.5-14.5); White Blood Count 31.5 K/mm3 (4.5-10.0)
[2021-10-08] MEDS: cefTRIAXone 2 GM in SODIUM CHLORIDE 0.9% IV 100 ML 200 ML IVPB (15:23)
[2021-10-08] MEDS: SODIUM CHLORIDE 0.9% IV 1,000 ML 999 ML IV CONT (15:23)
[2021-10-08] MEDS: HYDROCORTISONE SODIUM SUCCINATE 100 MG/2 ML VIAL IV PUSH ×2 (15:23→21:24)
[2021-10-08 15:35] LABS: Alanine Aminotransferase 128 U/L (6-50); Albumin Level 3.9 g/dL (3.5-5.1); Alkaline Phosphatase 184 U/L (38-126); Anion Gap 8 mmol/L (8-16); Aspartate Amino Transferase 176 U/L (17-59); Bilirubin,Total 8.2 mg/dL (0.2-1.3); Blood Urea Nitrogen 47 mg/dL (9-20); Calcium 8.6 mg/dL (8.4-10.2); Carbon Dioxide 19 mmol/L (22-30); Chloride 109 mmol/L (98-107); Estimated Glomerular Filt Rate > 60; Glucose 112 mg/dL (65-110); Potassium 4.9 mmol/L (3.4-5.0); Sodium 136 mmol/L (137-145)
[2021-10-08 15:42] LABS: Monoscreen Negative (Negative); Negative Monotest Control Negative (Negative); Positive Monotest Control Positive (Positive)
[2021-10-08] MEDS: ONDANSETRON INJ 4 MG/2 ML VIAL IV PUSH (16:04)
[2021-10-08 16:08] LABS: Band Neutrophils Percent 2 % (0-6); Lymphocytes Absolute Manual 4.41 K/mm3 (1.1-4.5); Monocytes Absolute Manual 1.89 K/mm3 (0.1-0.90); Monocytes Percent Manual 6 % (3-9); Neutrophils Percent Manual 78 % (46-73); Total Cells Counted 100
[2021-10-08 16:09] LABS: Anisocytosis 2+ (NORMAL); Platelet Estimate Adequate (Adequate)
[2021-10-08 16:21] LABS: Influenza A QL RT-PCR Negative (Negative); Influenza B QL RT-PCR Negative (Negative); SARS-CoV-2 RNA PCR Negative
--- NOTE | 2021-10-08 16:41 | ED.GENADULT ---
HPI - General Adult General Chief complaint: Altered Mental Status Stated complaint: Unspecified Time Seen by Provider: 10/08/21 14:48 History of Present Illness HPI narrative: 26-year-old male brought to the emergency room after a rapid response was called in the lab. He was coming to the hospital to get some outpatient labs done when he became unresponsive. This was before they went and [place] blood on him. Patient got multiple medical problems including Down syndrome, hypoadrenalism, hypothyroidism, and anemia. 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 Child also has had his spleen removed. Father is an retail pharmacist who promptly presented to the emergency department and gave me last of information and really assisted with the rapid work-up of his son. He has been dealing with some viral type symptoms for the last several days. They have given him hydrocortisone at home to assist with this. Patient had a recent transfer to [facility]. Unable to get any reliable history from the patient. On initial presentation the patient was noted to be in a wheelchair and he was unresponsive. He could not even pick his feet up off the ground and would not respond to anything and is extremely diaphoretic. He was rapidly transferred into a hospital bed. Within a matter of couple minutes he quickly regained consciousness and back to his baseline mental status and was sitting up in the bed. Mother was with him at the time. Related Data Allergies Allergy/AdvReac Type Severity Reaction Status Date / Time gluten Allergy Diarrhea Verified 09/25/21 18:11 Review of Systems Review of Systems: Review of systems unobtainable from the patient however able to get historical and review of system from the patient's parents who are at bedside. General: No recent chills or fevers Lungs: Having a cough lately ROS unobtainable: Yes unobtainable due to mental status PMFSH Past Medical History Medical History Adrenal insufficiency Anemia Down syndrome Hypothyroidism, unspecified Surgical History Surgical History Post-splenectomy Social History Social History Smoking status: Never smoker Alcohol intake: never Substance use: never Gender identity (if verbalized by the patient): Male Spiritual care concerns: No Exam Narrative: APPEARANCE: W patient is ill-appearing, diaphoretic, not responsive initially Head normocephalic and atraumatic. EYES: PERRLA/EOMI, scleral icterus noted NOSE: Normal with no drainage EARS:TMS clear Dav Oneill, with good light reflex. THROAT: Pharynx clear, no exudate. NECK: Supple. No adenopathy, no masses. RESPIRATORY: Airway patent, respirations nonlabored. Clear to auscultation bilaterally, no rales, rhonchi, wheezing. CARDIOVASCULAR: Regular rate and rhythm without murmurs, rubs, or gallops. Tachycardic at 110 ABDOMINAL: Soft, nondistended. Tenderness to palpation right upper quadrant Musculoskeletal: Moves all extremities. Strength/ROM intact, No edema, No calf tenderness. NEURO: Nonfocal examination. SKIN:: Diaphoretic, jaundice PSYCHIATRIC: As per parent his normal status RECTAL: Good sphincter tone and heme-negative Course Vital Signs Vital signs: Vital Signs Temperature 97.8 F 10/08/21 14:45 Pulse Rate 111 H 10/08/21 14:45 Respiratory Rate 15 10/08/21 14:45 Blood Pressure 85/33 L 10/08/21 14:45 Pulse Oximetry 100 10/08/21 14:45 Oxygen Delivery Room Air 10/08/21 14:45 Temperature 97.8 F 10/08/21 14:45 Pulse Rate 78 10/08/21 17:46 Respiratory Rate 13 10/08/21 17:46 Blood Pressure 89/61 L 10/08/21 17:45 Pulse Oximetry 98 10/08/21 17:30 Oxygen Delivery Room Air 10/08/21 14:45 Oxygen Flow Rate 2 10/08/21 15:49 Medical Decision Making [facility] Narrative Medical decisio
[2021-10-08 16:49] LABS: Immature Reticulocyte Fraction 38.4 % (3.0-15.9); Reticulocyte Hemoglobin Conten 36.5 pg (28.2-35.7); Reticulocyte Percent 2.65 % (0.7-4.3); Reticulocytes Absolute 0.06 B/L (32.2-175.7)
[2021-10-08 17:02] LABS: Lipase 39 U/L (23-300)
[2021-10-08 17:04] LABS: INR 1.2; Partial Thromboplastin Time 25.6 SECONDS (22.3-36.8)
--- NOTE | 2021-10-08 17:14 | PC.NURSE ---
pt unable to urinate. will continue to assess ability to provide urine for ua.
[2021-10-08 17:53] LABS: Appearance Urine Clear (Clear); Bilirubin Urine 1+ (Negative); Blood Urine 2+ (Negative); Glucose Urine UA Negative (Negative); Ketones Urine Negative (Negative); Leukocyte Esterase Ur Trace LEU/UL (Negative); Nitrate Urine Negative (Negative); Protein Urine 1+ mg/dL (Negative); Urobilinogen Urine 0.2 mg/dL (<2.0)
[2021-10-08 18:03] LABS: Mucus Urine Rare /lpf; RBC Urine 0-2 /hpf (0-2); Squamous Epithelial Cell Urine Rare /hpf (Few)
[2021-10-08 18:05] LABS: Add Urine Microscopic? YES; Color Urine Dark Yellow (Yellow)
[2021-10-08 18:10] LABS: HAV RESULT Negative (Negative)
[2021-10-08 18:13] LABS: Reflex Lactic Acid Yes or No Add Lactic
[2021-10-08 19:18] LABS: Mean Corpuscular HGB Conc 33.6 g/dl (32-36); Mean Corpuscular Hemoglobin 34.9 pg (26-34); Mean Corpuscular Volume 103.9 fl (80-100); Mean Platelet Volume 12.1 fl (7.4-10.4); Platelet Count Result 283 k/mm3 (150-375); Red Blood Count 1.29 M/mm3 (4.6-6.20); Red Cell Distribution Width 16.5 % (11.5-14.5); White Blood Count 22.8 K/mm3 (4.5-10.0)
--- NOTE | 2021-10-08 19:22 | PC.NURSE ---
Report received from ZOFIA Villarreal. This nurse assumed care of patient at this time.
[2021-10-08 19:35] LABS: Hematocrit 13.4 % (42.0-52.0); Hemoglobin 4.5 g/dL (14.0-18.0)
[2021-10-08 19:41] LABS: Band Neutrophils Percent 1 % (0-6); Lymphocytes Absolute Manual 1.14 K/mm3 (1.1-4.5); Monocytes Absolute Manual 0.91 K/mm3 (0.1-0.90); Monocytes Percent Manual 4 % (3-9); Neutrophils Absolute Manual 20.74 K/mm3 (1.3-6.7); Neutrophils Percent Manual 90 % (46-73); Total Cells Counted 100
[2021-10-08 19:42] LABS: Anisocytosis 2+ (NORMAL); Platelet Estimate Adequate (Adequate)
[2021-10-08 20:29] LABS: Bilirubin Direct 0.4 mg/dL (0-0.3); Lactate Dehydrogenase 1769 U/L (313-618)
[2021-10-08 20:30] LABS: Lactic Acid 1.5 mmol/L (0.7-2.0)
[2021-10-08] MEDS: PANTOPRAZOLE SODIUM IV 40 MG VIAL IV PUSH (20:31)
[2021-10-08] MEDS: predniSONE 20 MG, predniSONE 10 MG 30 MG PO (20:31)
[2021-10-08] MEDS: SODIUM CHLORIDE 0.9% IV 250 ML 30 ML IV CONT (21:08)
[2021-10-08] MEDS: SODIUM CHLORIDE 0.9% IV 500 ML 999 ML IV CONT (21:21)
--- NOTE | 2021-10-08 21:42 | PC.NURSE ---
MIGEL by per blood bank to stop blood transfusion at this time per.
[2021-10-08] MEDS: methylPREDNISolone SOD SUCC 125 MG VIAL IV PUSH (21:56)
--- NOTE | 2021-10-08 22:04 | PC.NURSE ---
Patient taken to CT via stretcher with his father.
--- NOTE | 2021-10-08 22:20 | PC.NURSE ---
CATHERINEB per , do not restart blood transfusion with O neg blood. Hospitalist in room speaking with patient family.
--- NOTE | 2021-10-08 22:41 | PC.NURSE ---
Per patients father, hold on catheter at this time. Patient did void 450.
--- NOTE | 2021-10-08 22:53 | PC.NURSE ---
MIGEL per , restart blood transfusion.
--- NOTE | 2021-10-08 23:11 | PM.IMHP ---
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 The patient's father who is a local primary care physician source of information. The patient has been having low-grade fevers on and off since Monday. He also has been having some episodes of retching. As a result the patient had received his stress dose of hydrocortisone p.o. day before yesterday. However later that night the patient seemed to be back to his baseline. Then last night around 9:00 p.m. the patient had a low-grade fever and had a rash that appeared almost petechial to his buttocks. His blood pressures were 80 systolic at that time and he received a dose of IM hydrocortisone. He also received a dose of Levaquin as patient is asplenic and it was concerned for or possible infection. Today the patient was sleeping more than usual. He also was not eating as much but was drinking plenty of fluids. Today the they had noted stat the patient had developed some scleral icterus. Due to his symptoms he presented to the outpatient lab for lab draw. He had a vagal episode while he was at the lab and had a syncopal event. On arrival to the ER the patient's blood pressures were low with systolics ranging between 70 and 93. Patient's usual systolic blood pressure at home on the 110's but is not unusual for his blood pressures to be in the 80s and 90s when he has episodes of adrenal crisis or infection. Usually his blood pressures respond to steroids but today they had not. The patient has had a prior episodes of hemolytic anemia with similar presentation. He has had darker appearance to his urine but no hi hematuria. Labs performed in the ER demonstrated acute anemia with a hemoglobin down from baseline of 14.6 down to 7.5 the remainder of his labs were consistent with hemolytic anemia with elevated bilirubin and elevated LDH. Rectal exam was performed in the ER which was guaiac negative. In the ER the patient initially received 30 of stress dose p.o. prednisone and Protonix. Type and screen was ordered but the hospitalist having difficulty cross matching the patient. O negative blood was also ordered but lab was reporting this was not compatible as well. [facility] was contacted and they stated that there was no beds available in the MICU. Solu-Cortef was given due to patient's history of adrenal crisis. Hematology was consulted and recommended the patient receive Solu-Medrol in addition to the Solu-Cortef due to patient's acute hemolytic anemia. Pathologist called and recommended not giving the patient a low negative blood given difficulties with compatibility. The patient was remaining hypotensive despite receiving Solu-Cortef and Solu-Medrol. He had also received IV fluids. House at the bedside evaluating the patient in discussing his care with his father. When his father received a text message from the patient's oncologist Dr. Osborne from [facility]. She recommended the patient receive the O negative blood despite the compatibility issues. The 1st unit of blood was given went for rapid transfusion with improvement in the patient's blood pressure. The potential for placement of a central line was discussed with patient's father who preferred to wait and continue monitor patient without central line access. Review of Systems Review of Systems: ROS unobtainable: Yes unobtainable due to medical condition PMFSH Past Medical History Medical History (Updated 10/09/21 @ 01:54 by Summer Ford, DO) Adrenal insufficiency Anemia Autism spectrum disorder Common variable immunodeficiency Down syndrome Rios syndrome Hea
[2021-10-08] MEDS: clonazePAM (*CRX) 0.5 MG TABLET PO (23:58)
[2021-10-09] VITALS: BP 86/50; PULSE 71; RESP 22; TEMP 36.9; O2SAT 97
[2021-10-09 00:08] VITALS: BP 86/50; PULSE 71; RESP 21; TEMP 36.8; O2SAT 97
--- NOTE | 2021-10-09 00:38 | PC.NURSE ---
This patient, Yoav Viera, was admitted to Intensive Care Unit-10. Patient/family oriented to hospital policies and general routines including ID bracelet, bed and alarms, visiting hours, pain management, procedures, bathroom and other care routines, personal items, smoking policy, room service/diet, and visiting hours. Information on how to activate the Rapid Response Team has been discussed. Patient/Family are encouraged to report perceived risks to care and to ask questions if they do not understand what they are told or what they should do.
[2021-10-09 01:00] VITALS: BP 93/64; PULSE 61; RESP 22; TEMP 36.9; O2SAT 98
[2021-10-09 01:08] VITALS: BP 110/56; PULSE 64; RESP 19; TEMP 37; O2SAT 98
--- NOTE | 2021-10-09 01:13 | PC.NURSE ---
Spoke to Trish at the [facility] [facility] and informed them that patient has been admitted to ICU 10 while he is waiting for a bed at [place].
[2021-10-09 02:00] VITALS: BP 107/69; PULSE 61; PULSE 76; RESP 22; O2SAT 97
[2021-10-09] MEDS: PIPERACILLIN/TAZOBACTAM SOD 4.5 GM in SODIUM CHLORIDE 0.9% IV 100 ML 200 ML IVPB (02:32)
[2021-10-09 02:36] LABS: Basophils Absolute Auto 0.1 K/mm3 (0.0-0.1); Basophils Percent Auto 0.3 % (0.2-1.2); Hematocrit 26.7 % (42.0-52.0); Hemoglobin 8.9 g/dL (14.0-18.0); Immature Granulocyte Absolute 1.01 K/mm3 (0.00-0.031); Immature Granulocyte Percent A 4.2 % (0-0.5); Lymphocytes Absolute Auto 1.36 K/mm3 (0.9-3.2); Lymphocytes Percent Auto 5.7 % (18.3-44.2); Mean Corpuscular HGB Conc 33.3 g/dl (32-36); Mean Corpuscular Hemoglobin 31.2 pg (26-34); Mean Corpuscular Volume 93.7 fl (80-100); Mean Platelet Volume 11.8 fl (7.4-10.4); Monocytes Absolute Auto 0.2 K/mm3 (0.1-0.6); Monocytes Percent Auto 0.9 % (2.6-8.5); Neutrophils Absolute Auto 21.3 K/mm3 (1.3-6.7); Neutrophils Percent Auto 88.9 % (45.5-73.1); Nucleated Red Blood Cells Absolute Auto 0.2 K/mm3 (0.0-0.012); Nucleated Red Blood Cells Perc 0.9 % (0.0-0.2); Platelet Count Result 323 k/mm3 (150-375); Red Blood Count 2.85 M/mm3 (4.6-6.20); Red Cell Distribution Width 17.3 % (11.5-14.5)
[2021-10-09] MEDS: SODIUM CHLORIDE 0.9% IV 1,000 ML 100 ML IV CONT (02:38)
[2021-10-09] MEDS: TUBING, BLOOD PLUM PUMP TUBING 1 EACH XX (02:38)
[2021-10-09 02:45] LABS: Alanine Aminotransferase 99 U/L (6-50); Albumin Level 3.3 g/dL (3.5-5.1); Alkaline Phosphatase 153 U/L (38-126); Anion Gap 7 mmol/L (8-16); Aspartate Amino Transferase 109 U/L (17-59); Bilirubin Direct 0.4 mg/dL (0-0.3); Bilirubin Indirect 2.9 mg/dL (0-1.1); Bilirubin,Total 4.4 mg/dL (0.2-1.3); Blood Urea Nitrogen 39 mg/dL (9-20); Carbon Dioxide 21 mmol/L (22-30); Chloride 111 mmol/L (98-107); Estimated CRCL calculation 91 ml/min; Estimated Glomerular Filt Rate > 60; Glucose 121 mg/dL (65-110); Lactate Dehydrogenase 1700 U/L (313-618); Potassium 4.1 mmol/L (3.4-5.0); Sodium 139 mmol/L (137-145)
[2021-10-09 03:20] LABS: Magnesium 2.2 mg/dL (1.6-2.3)
[2021-10-09] MEDS: ACIDOPHILUS PACKET 1 PKT PACKET PO (03:21)
[2021-10-09 04:00] VITALS: PULSE 79; PULSE 80; RESP 16; O2SAT 98
--- NOTE | 2021-10-09 07:00 | PC.NURSE ---
pt transferred to [facility] per [facility] at [id number]. Belongings sent with father. 3 calls to [place] to make aware pt has left. No one answering phone.
[2021-10-13 14:44] LABS: Haptoglobin <8 mg/dL (43-212)
== END 2021-10-09 06:53 | disposition short-term general hospital (02) ==
LOC: ANHED 20:17 → ANHICU 22:49
PROVIDERS: Emergency Medicine; Admitting Provider Internal Medicine; Emergency Provider Emergency Medicine; PCP Pediatrics; Visit Provider Internal Medicine
DX: A41.9 Sepsis, unspecified organism (principal); R57.1 Hypovolemic shock; D58.9 Hereditary hemolytic anemia, unspecified; R55 Syncope and collapse; Z90.81 Acquired absence of spleen; E27.2 Addisonian crisis; R74.8 Abnormal levels of other serum enzymes; E03.9 Hypothyroidism, unspecified; E80.6 Other disorders of bilirubin metabolism; Z20.822 Contact with and (suspected) exposure to COVID-19; Q90.9 Down syndrome, unspecified; Q43.3 Congenital malformations of intestinal fixation; F84.0 Autistic disorder; D83.9 Common variable immunodeficiency, unspecified; D69.41 Evans syndrome; H55.00 Unspecified nystagmus; Z79.52 Long term (current) use of systemic steroids
CPT/HCPCS: 36415; 36430; 71045; 71260; 74177; 76705; 80053; 81001; 81479; 82248; 83010; 83605; 83615; 83690; 83735; 85025; 85046; 85610; 85730; 86308; 86645; 86709; 86850; 86860; 86870; 86880; 86900; 86901; 86902; 86920; 86922; 86970; 86971; 86978; 87040; 87497; 87502; 96361; 96365; 96366; 96367; 96368; 96375; 99285; A9270; C9113; C9803; G0378; J0696; J1720; J2405; J2930; J3370; J7030; J7040; J7050; J7512; P9016; Q9967; U0003; U0005

== ENCOUNTER 2021-10-23 11:04 | Outpatient (CLI) | payer BC, MEDICAID, SELFPAY ==
--- NOTE | ~2021-10-23 | US_ITS ---
EXAMINATION:US venous doppler LE RT INDICATION:Right leg erythema TECHNIQUE: Multiple grayscale, color flow and Doppler images of the right lower extremity deep venous systems were obtained and reviewed. COMPARISON: No prior studies for comparison. FINDINGS: The common femoral, superficial femoral and popliteal veins demonstrate normal respiratory variation, augmentation and compressibility. Color flow is also seen within the posterior tibial, pe roneal, and profunda veins. There is superficial vein thrombosis involving the right greater saphenou s vein beginning 6 mm from the common femoral vein to the ankle. IMPRESSION: 1: No lower extremity deep venous thrombosis. 2: Extensive thrombosis of the right greater saphenous vein. Reviewed, dictated and finalized at location A.
== END 2021-10-23 11:05 | disposition home or self-care (01) ==
PROVIDERS: PCP Pediatrics; Visit Provider Internal Medicine
DX: I82.811 Embolism and thrombosis of superficial veins of right lower extremity (principal)
CPT/HCPCS: 93971

== ENCOUNTER 2022-06-02 14:52 | Outpatient (CLI) | payer BC, MEDICAID, SELFPAY ==
[2022-06-02 20:13] LABS: Immunoglobulin G 743 mg/dL (700-1600)
== END 2022-06-02 14:53 | disposition home or self-care (01) ==
LOC: ANHGOSHLAB 14:55
PROVIDERS: PCP Pediatrics
DX: D83.9 Common variable immunodeficiency, unspecified (principal)
CPT/HCPCS: 36415; 82784

== ENCOUNTER 2022-09-07 09:34 | Outpatient (CLI) | payer BC, MEDICAID, SELFPAY ==
--- NOTE | ~2022-09-07 | XR_ITS ---
EXAMINATION: XR barium swallow w SBFT DATE: 09/07/2022 11:43 INDICATION: Postprandial vomiting. TECHNIQUE: The patient drank thin barium. Fluoroscopy of the esophagus and small bowel was performed. Fluoroscopy exposure time was 0.9 minutes. Radiographs of the abdomen were obtained. The total numbe r of images was 272. COMPARISON: CT 10/08/2021, 09/25/21 FINDINGS: ESOPHAGRAM: There is no mass or stricture of the esophagus. There is decreased primary and secondary esophageal p eristalsis. No abnormal tertiary waves. Laryngeal penetration is noted, which prompted coughing. Ther e is no hiatal hernia. SMALL BOWEL SERIES: The proximal duodenum is severely enlarged. Bowel malrotation is noted. The terminal ileum is normal. Transit time to the colon was 45 minutes. IMPRESSION: 1. Moderate esophageal dysmotility. 2. Laryngeal penetration, which prompted coughing. 3. Severely enlarged proximal duodenum suspicious for duodenal web or stenosis. 4. Bowel malrotation. Reviewed, dictated and finalized at location A.
== END 2022-09-07 09:35 | disposition home or self-care (01) ==
PROVIDERS: PCP Pediatrics; Visit Provider Internal Medicine
DX: R11.2 Nausea with vomiting, unspecified (principal); T17.908A Unspecified foreign body in respiratory tract, part unspecified causing other injury, initial encounter; Q43.3 Congenital malformations of intestinal fixation
CPT/HCPCS: 74240

== ENCOUNTER 2022-10-03 12:06 | Outpatient (CLI) | payer BC, MEDICAID, SELFPAY ==
[2022-10-03 12:53] LABS: Basophils Absolute Auto 0.2 K/mm3 (0.0-0.1); Basophils Percent Auto 1.3 % (0.2-1.2); Eosinophils Absolute Auto 0.1 K/mm3 (0-0.3); Eosinophils Percent Auto 0.6 % (0-4.4); Hemoglobin 16.1 g/dL (14.0-18.0); Immature Granulocyte Absolute 0.06 K/mm3 (0.00-0.031); Immature Granulocyte Percent A 0.5 % (0-0.5); Immature Reticulocyte Fraction 12.1 % (3.0-15.9); Lymphocytes Absolute Auto 3.14 K/mm3 (0.9-3.2); Lymphocytes Percent Auto 25.6 % (18.3-44.2); Mean Corpuscular HGB Conc 32.9 g/dl (32-36); Mean Corpuscular Hemoglobin 31.5 pg (26-34); Mean Corpuscular Volume 95.9 fl (80-100); Mean Platelet Volume 10.2 fl (7.4-10.4); Monocytes Absolute Auto 0.8 K/mm3 (0.1-0.6); Monocytes Percent Auto 6.4 % (2.6-8.5); Neutrophils Absolute Auto 8.1 K/mm3 (1.3-6.7); Neutrophils Percent Auto 65.6 % (45.5-73.1); Platelet Count Result 451 k/mm3 (150-375); Red Blood Count 5.11 M/mm3 (4.6-6.20); Red Cell Distribution Width 16.9 % (11.5-14.5); Reticulocyte Hemoglobin Conten 34.8 pg (28.2-35.7); Reticulocyte Percent 1.81 % (0.7-4.3); Reticulocytes Absolute 0.09 M/mm3 (0.02-0.1); White Blood Count 12.3 K/mm3 (4.5-10.0)
[2022-10-03 12:59] LABS: Alanine Aminotransferase 64 U/L (6-50); Albumin Level 4.1 g/dL (3.5-5.1); Alkaline Phosphatase 105 U/L (38-126); Anion Gap 8 mmol/L (8-16); Aspartate Amino Transferase 55 U/L (17-59); Bilirubin,Total 0.3 mg/dL (0.2-1.3); Blood Urea Nitrogen 21 mg/dL (9-20); Carbon Dioxide 27 mmol/L (22-30); Chloride 105 mmol/L (98-107); Estimated Glomerular Filt Rate > 60; Glucose 70 mg/dL (65-110); Lactate Dehydrogenase 90 U/L (120-246); Potassium 3.9 mmol/L (3.4-5.0); Sodium 140 mmol/L (137-145)
[2022-10-05 20:08] LABS: Haptoglobin 136 mg/dL (43-212)
== END 2022-10-03 12:07 | disposition home or self-care (01) ==
LOC: ANHLAB 12:08
PROVIDERS: PCP Pediatrics; Visit Provider Internal Medicine
DX: D59.10 Autoimmune hemolytic anemia, unspecified (principal)
CPT/HCPCS: 36415; 80053; 83010; 83615; 85025; 85046; 86880

== ENCOUNTER 2022-10-06 13:09 | Outpatient (CLI) | payer BC, MEDICAID, SELFPAY ==
--- NOTE | ~2022-10-06 | XR_ITS ---
EXAMINATION: XR barium swallow modified DATE: 10/06/2022 13:55 INDICATION: Aspiration TECHNIQUE: Modified barium esophagram was performed by myself who administered fluoroscopy, in conju nction with speech pathologist who administered barium in varying consistencies as per speech patholo gist documentation. This was recorded on tape. A single fluoroscopic spot image was recorded. Fluoros copy exposure time was 2.4 minutes. The DAP for this procedure was 1.254 Gycm2. FINDINGS: Oral stage: Adequate function. Pharyngeal phase: Reduced laryngeal elevation, reduced laryngeal adduction, reduced tongue base retra ction. Laryngeal penetration: Present. Aspiration: Present. Laryngeal sensitivity: Absent. IMPRESSION: Abnormal modified esophagram as above. Please refer to speech pathologist findings and sp ecific feeding recommendations. Reviewed, dictated and finalized at location A. IMPRESSION: Abnormal modified esophagram as above. Please refer to speech patho logist findings and specific feeding recommendations.
--- NOTE | 2022-10-07 08:28 | REHSTMBS ---
Assessment and note entered by Cynthia Brown, [employer] Modified Barium Swallow Evaluation Feeding Type Recommended Oral Food Consistency Soft and Bite Size, Level Liquid Consistency Moderately Thick (3) Treatment Recommendations Bolus Control Exercise,Laryngeal Elevation Exerc, Tongue Base Exercise,Tongue ROM Exercise,Vocal Fold Adduction Exer ST Clinical Summary MODIFIED BARIUM SWALLOW STUDY This patient was seen for a Modified Barium Swallow study at the request of his physician. Patient has a history of Down Syndrome/Autism and was essentially nonverbal throughout this evaluation however patient was sweet and very cooperative with evaluation tasks. Mother, who was present for the evaluation, reported that patient suffered COVID several years ago and was intubated for four weeks; he eventually improved and was placed on thickened liquids at that time due to aspiration risk but returned to regular diet. Mother reports that patient is missing his front teeth so he tends to masticate with the back teeth at the back of the mouth and has exhibited possible aspiration on solid foods. She stated that two months ago, patient was attempting to consume a hamburger and he began coughing and vomiting; they took him to the ED the next day and he was found with adrenal insufficiency and aspiration pneumonia most likely due to aspiration while vomiting. Mother also reported frequent burping after swallowing. This Modified Barium Swallow study was administered to assess this patient's current risk of aspiration while consuming liquids/solids. Patient was viewed in the lateral position to the level of C5/C6. Patient was presented with thin liquid contrast medium, then nectar/mildly thick liquid contrast medium, along with honey/ moderately thick liquid contrast medium. He was also presented with pudding mixed with semi-solid contrast medium, fruit cocktail pieces coated with the semi-solid mixture, and then potato chip also coated with the semi-solid mixture. Patient exhibited the following impairments: Oral Stage: No impairment noted although there would be concerns with adequate mastication of
== END 2022-10-06 13:10 | disposition home or self-care (01) ==
LOC: ANHIMG 13:11
PROVIDERS: PCP Pediatrics; Visit Provider Internal Medicine
DX: T17.908A Unspecified foreign body in respiratory tract, part unspecified causing other injury, initial encounter (principal)
CPT/HCPCS: 92611

== ENCOUNTER 2022-10-15 16:18 | Inpatient (IN) | payer BC, MEDICAID, SELFPAY ==
--- NOTE | ~2022-10-15 | XR_ITS ---
EXAMINATION: XR ankle LT min 3V DATE: 10/15/2022 20:35 INDICATION: Left ankle pain. Injury. TECHNIQUE: 4 views of left ankle were obtained. COMPARISON: None. FINDINGS: There is a spiral fracture of distal fibula in near anatomic alignment. The medial aspect o f the fracture line is 16 mm proximal to the level of the tibial plafond. There is a fracture of post erolateral margin of distal tibia. Joint spaces are normal. There is ankle soft tissue swelling. IMPRESSION: 1. Spiral fracture of distal fibula. 2. Fracture of posterolateral aspect of distal tibia. Reviewed, dictated and finalized at location E.
[2022-10-15 16:50] VITALS: BP 101/60; PULSE 67; RESP 18; TEMP 36.2; O2SAT 96
[2022-10-15 17:03] LABS: Basophils Absolute Auto 0.1 K/mm3 (0.0-0.1); Basophils Percent Auto 1.1 % (0.2-1.2); Eosinophils Absolute Auto 0.1 K/mm3 (0-0.3); Eosinophils Percent Auto 0.5 % (0-4.4); Hematocrit 45.5 % (42.0-52.0); Hemoglobin 14.7 g/dL (14.0-18.0); Immature Granulocyte Absolute 0.13 K/mm3 (0.00-0.031); Immature Granulocyte Percent A 1.1 % (0-0.5); Immature Platelet Fraction Pct 18.1 % (0.9-11.2); Immature Reticulocyte Fraction 16.9 % (3.0-15.9); Lymphocytes Absolute Auto 4.18 K/mm3 (0.9-3.2); Lymphocytes Percent Auto 36.3 % (18.3-44.2); Mean Corpuscular HGB Conc 32.3 g/dl (32-36); Mean Corpuscular Hemoglobin 31.1 pg (26-34); Mean Corpuscular Volume 96.2 fl (80-100); Monocytes Absolute Auto 0.8 K/mm3 (0.1-0.6); Neutrophils Absolute Auto 6.2 K/mm3 (1.3-6.7); Red Blood Count 4.73 M/mm3 (4.6-6.20); Red Cell Distribution Width 16.1 % (11.5-14.5); Reticulocyte Hemoglobin Conten 35.1 pg (28.2-35.7); Reticulocyte Percent 2.24 % (0.7-4.3); Reticulocytes Absolute 0.11 M/mm3 (0.02-0.1); White Blood Count 11.5 K/mm3 (4.5-10.0)
[2022-10-15 17:10] LABS: Alanine Aminotransferase 51 U/L (6-50); Albumin Level 3.9 g/dL (3.5-5.1); Alkaline Phosphatase 114 U/L (38-126); Anion Gap 7 mmol/L (8-16); Aspartate Amino Transferase 37 U/L (17-59); Bilirubin,Total 0.3 mg/dL (0.2-1.3); Blood Urea Nitrogen 21 mg/dL (9-20); Calcium 8.8 mg/dL (8.4-10.2); Carbon Dioxide 27 mmol/L (22-30); Chloride 105 mmol/L (98-107); Estimated CRCL calculation 99 ml/min; Estimated Glomerular Filt Rate > 60; Glucose 109 mg/dL (65-110); Lactate Dehydrogenase 99 U/L (120-246); Potassium 4.4 mmol/L (3.4-5.0); Sodium 139 mmol/L (137-145)
[2022-10-15 17:23] LABS: Appearance Urine Clear (Clear); Bilirubin Urine Negative (Negative); Blood Urine Negative (Negative); Color Urine Yellow (Yellow); Glucose Urine UA Negative (Negative); Ketones Urine Negative (Negative); Leukocyte Esterase Ur Negative LEU/UL (Negative); Nitrate Urine Negative (Negative); Protein Urine Negative (Negative); Specific Grav Ur 1.018 (1.001-1.035); Urobilinogen Urine 0.2 mg/dL (<2.0)
[2022-10-15 17:25] LABS: Erythrocyte Sedimentation Rate 23 mm/hr (0-20)
[2022-10-15 17:27] LABS: Platelet Count Result 5 k/mm3 (150-375)
[2022-10-15 17:28] LABS: Platelet Estimate Decreased (Adequate)
[2022-10-15 17:29] LABS: Schistocytes None Seen (NORMAL)
[2022-10-15 17:30] LABS: Add Urine Microscopic? NO
--- NOTE | 2022-10-15 17:57 | ED.RECABL ---
HPI - Recheck/Abnormal Lab/Rx General Chief Complaint: Recheck/Abnormal Lab/Rx Stated Complaint: Dr Segovia here w/ son requesting labs Time Seen by Provider: 10/15/22 17:39 Source: patient and family Mode of arrival: ambulatory Limitations: no limitations History of Present Illness HPI narrative: This is a 27-year-old male that presents to the emergency department for rash noted this afternoon. His father brought him in for evaluation of petechial rash noted today. Patient has previous history of thrombocytopenia, but had been doing well since his splenectomy a couple of years ago. Father brought him in for evaluation today. Patient currently has no complaints. No known bleeding. Denies hematemesis, hematochezia, or hematuria. Related Data Home Medications Medication Instructions Recorded Confirmed cholecalciferol (vitamin D3) 125 125 mcg PO EVERY OTHER DAY 10/08/21 10/08/21 mcg (5,000 unit) tablet (Vitamin D3) ferrous sulfate 325 mg (65 mg 325 mg PO QACLUNCH 10/08/21 10/08/21 iron) capsule,extended release folic acid 800 mcg tablet 0.8 mg PO QACLUNCH 10/08/21 10/08/21 multivitamin with minerals-folic 1 tablet PO QACLUNCH 10/08/21 10/08/21 acid 0.4 mg tablet omeprazole 20 mg tablet,delayed 20 mg PO DAILY 10/08/21 10/08/21 release prasterone (dhea) 25 mg tablet 25 mg PO QACLUNCH 10/08/21 10/08/21 (DHEA) Allergies Allergy/AdvReac Type Severity Reaction Status Date / Time gluten Allergy Diarrhea Verified 10/15/22 18:18 Review of Systems Review of Systems: CONSTITUTIONAL: Denies fever GASTROINTESTINAL: Denies abdominal pain GENITOURINARY: Denies hematuria. SKIN: Reports rash All systems reviewed & are unremarkable except as noted in HPI and below [facility] Past Medical History Medical History (Updated 10/15/22 @ 21:49 by Ritu Castaneda PA-C) Adrenal insufficiency Anemia Autism spectrum disorder Common variable immunodeficiency Down syndrome Rios syndrome Heart murmur Hypothyroidism, unspecified Incomplete rotation intestine Nystagmus Surgical History Surgical History (Updated 10/08/21 @ 23:27 by Summer Ford DO) History of ventricular septal defect repair Post-splenectomy Family History Family History (Updated 10/09/21 @ 00:04 by Summer Pineda RN) Father Prostate carcinoma Social History Social History (Updated 10/09/21 @ 01:41 by Summer Ford DO) Smoking status: Never smoker Second hand tobacco smoke exposure: No Alcohol intake: never Substance use: never Additional living arrangements comments: He lives at home with his parents. He is dependent for care. Additional occupation/education comments: Disabled Gender identity (if verbalized by the patient): Male Spiritual care concerns: No Exam Narrative: GENERAL: Well-appearing, well-nourished, and in no acute distress. HEAD: Normocephalic, atraumatic. EYES: EOMI. ENT: Nares clear, no rhinorrhea or epistaxis. Mucous membranes moist. Oropharynx without tonsillar hypertrophy exudate or other lesions. NECK: Supple. No adenopathy or masses. CHEST: Clear to auscultation. No respiratory distress. No wheezes rales or rhonchi HEART: Regular rate and rhythm. No murmur heard. Normal peripheral pulses. ABDOMEN: Soft, nontender, nondistended, normal active bowel sounds. EXTREMITIES: Normal range of motion. No edema. SKIN: Warm, dry. Petechial rash noted on the legs, abdomen, and arms NEURO: No focal deficits. Alert and oriented x3. PSYCH: Normal mood and affect Course Course Emergency Course: Family updated on work-up. Patient will be admitted here pending transfer to [place] where his specialists are. Patient's father would like to hold off on platelet transfusion and IVIG for now Consultations Consultation #1: Spoke with Dr. Mann about patient and workup who accepts patient for transfer. Recommends dexamethasone 40 mg p.o. daily, Protonix, platelet transfusion, and IVIG. Patient lik
[2022-10-15] MEDS: DEXAMETHASONE 4 MG TABLET 40 MG PO (18:43)
[2022-10-15] MEDS: PANTOPRAZOLE 40 MG TABLET PO (18:43)
--- NOTE | 2022-10-15 18:47 | PC.NURSE ---
Father refusing for patient to be stuck for blood work and IV at this time unless absolutely necessary. Provider aware.
--- NOTE | 2022-10-15 19:04 | PC.NURSE ---
Spoke with [facility] transfer center about patient. Gave Michelle from [facility] information for patient to be placed on wait list.
[2022-10-15 20:14] VITALS: BP 102/67; PULSE 73; RESP 21; O2SAT 98
--- NOTE | 2022-10-15 21:28 | PC.NURSE ---
patient father refusing for patient to be stuck for type and screen due to not doing transfusion at this time.
[2022-10-15 22:06] VITALS: BP 123/65; PULSE 61; RESP 16; TEMP 36.1; O2SAT 97
--- NOTE | 2022-10-15 22:07 | ADMGEN ---
This patient, Yoav Viera, was admitted to Medical Room 342-01. Patient/family oriented to hospital policies and general routines including ID bracelet, bed and alarms, visiting hours, pain management, procedures, bathroom and other care routines, personal items, smoking policy, room service/diet, and visiting hours. Information on how to activate the Rapid Response Team has been discussed. Patient/Family are encouraged to report perceived risks to care and to ask questions if they do not understand what they are told or what they should do.
--- NOTE | 2022-10-16 00:59 | PM.IMHP ---
H&P: HPI History of Present Illness Date/Time: 10/16/22 00:59 Chief Complaint: Petechial rash Narrative: This is a 27-year-old male with past medical history significant for Down syndrome, ITP, status post splenectomy, patient comes to the emergency room with his dad after he was noticed to have a petechial rash which is mainly distributed in his bilateral lower extremities. Patient is unable to give any history. Most of the history has been obtained from that who is at bedside. according to father patient has not had any other problems in the weeks leading up to today. No runny nose, no cough, no nausea, no vomiting, no diarrhea. preliminary workup was significant for a platelet count of 5000. patient is currently awaiting transfer to tertiary facility will be placed in observation overnight. Review of Systems Review of Systems: ROS unobtainable: Yes unobtainable due to medical condition ( Down syndrome) [facility] Past Medical History Medical History (Updated 10/15/22 @ 21:49 by Ritu Castaneda PA-C) Adrenal insufficiency Anemia Autism spectrum disorder Common variable immunodeficiency Down syndrome Rios syndrome Heart murmur Hypothyroidism, unspecified Incomplete rotation intestine Nystagmus Surgical History Surgical History (Updated 10/08/21 @ 23:27 by Summer Ford DO) History of ventricular septal defect repair Post-splenectomy Family History Family History (Updated 10/09/21 @ 00:04 by Summer Pineda RN) Father Prostate carcinoma Social History Social History (Updated 10/09/21 @ 01:41 by Summer Ford DO) Smoking status: Never smoker Second hand tobacco smoke exposure: No Alcohol intake: never Substance use: never Additional living arrangements comments: He lives at home with his parents. He is dependent for care. Additional occupation/education comments: Disabled Gender identity (if verbalized by the patient): Male Spiritual care concerns: No Meds Home Medications and Allergies Home Medications Medication Instructions Recorded Confirmed Type cholecalciferol (vitamin D3) 125 125 mcg PO EVERY OTHER DAY 10/08/21 10/15/22 History mcg (5,000 unit) tablet (Vitamin D3) folic acid 800 mcg tablet 0.8 mg PO QACLUNCH 10/08/21 10/15/22 History multivitamin with minerals-folic 1 tablet PO QACLUNCH 10/08/21 10/15/22 History acid 0.4 mg tablet prasterone (dhea) 25 mg tablet 25 mg PO QACLUNCH 10/08/21 10/15/22 History (DHEA) nystatin 100,000 unit/mL oral 500,000 unit (5 mL) PO TID PRN 10/20/21 10/15/22 Rx suspension oral thrush #200 mL prednisone 1 mg tablet 2.5 mg PO DAILY 90 days #225 tabs 03/01/22 10/15/22 Rx needle (disp) 18 G 18 gauge x 1 #10 ea 05/29/22 10/15/22 Rx (BD Regular Bevel Mcdonough) syringe with needle, safety 3 mL #10 ea 05/29/22 10/15/22 Rx 25 gauge x 1 (BD Integra Syringe) hydrocortisone sod succ (PF) 100 100 mg (2 mL) IM DAILY PRN adrenal 06/28/22 10/15/22 Rx mg/2 mL solution for injection crisis #10 ea (Solu-Cortef Act-O-Vial (PF)) prednisone 10 mg tablet 10 mg PO DAILY PRN adrenal insuff. 06/28/22 10/15/22 Rx #30 tabs prednisone 1 mg tablet 1 - 4 mg PO DAILY #90 tabs 07/22/22 10/15/22 Rx prednisone 5 mg tablet 5 mg PO DAILY #90 tabs 07/22/22 10/15/22 Rx ramelteon 8 mg tablet (Rozerem) 8 mg PO QHS PRN sleep #30 tabs 08/24/22 10/15/22 Rx levothyroxine 137 mcg tablet 112 tablet PO QAM 10/15/22 10/15/22 History melatonin 3 mg tablet 5 mg PO HS PRN Insomnia 10/15/22 10/15/22 History sertraline 100 mg tablet 50 mg PO DAILY 10/15/22 10/15/22 History Allergies Allergy/AdvReac Type Severity Reaction Status Date / Time gluten Allergy Diarrhea Verified 10/15/22 18:18 Vital Signs Vital Signs - 24 hr 10/15/22 16:50 10/15/22 20:14 10/15/22 22:06 Temperature 97.2 F L 97.0 F L Pulse Rate 67 73 61 Respiratory Rate 18 21 H 16 Blood Pressure 101/60 102/67 123/65 Pulse Oximetry 96 98 97 Oxygen Delivery Room Air
[2022-10-16 06:00] VITALS: BP 118/66; PULSE 62; RESP 16; TEMP 36.1; O2SAT 97
[2022-10-16] MEDS: LEVOTHYROXINE SODIUM 112 MCG TABLET PO (06:32)
[2022-10-16 08:00] VITALS: O2SAT 97
[2022-10-16 08:47] LABS: Basophils Percent Auto 0.4 % (0.2-1.2); Hematocrit 42.7 % (42.0-52.0); Hemoglobin 14.2 g/dL (14.0-18.0); Immature Granulocyte Absolute 0.12 K/mm3 (0.00-0.031); Immature Granulocyte Percent A 1.1 % (0-0.5); Immature Platelet Fraction Pct 28.6 % (0.9-11.2); Lymphocytes Absolute Auto 2.68 K/mm3 (0.9-3.2); Lymphocytes Percent Auto 23.9 % (18.3-44.2); Mean Corpuscular HGB Conc 33.3 g/dl (32-36); Mean Corpuscular Hemoglobin 31.7 pg (26-34); Mean Corpuscular Volume 95.3 fl (80-100); Monocytes Absolute Auto 0.1 K/mm3 (0.1-0.6); Neutrophils Absolute Auto 8.3 K/mm3 (1.3-6.7); Neutrophils Percent Auto 73.6 % (45.5-73.1); Nucleated Red Blood Cells Perc 0.2 % (0.0-0.2); Red Blood Count 4.48 M/mm3 (4.6-6.20); White Blood Count 11.2 K/mm3 (4.5-10.0)
[2022-10-16 08:55] LABS: Anion Gap 10 mmol/L (8-16); Blood Urea Nitrogen 24 mg/dL (9-20); Calcium 8.9 mg/dL (8.4-10.2); Carbon Dioxide 22 mmol/L (22-30); Chloride 107 mmol/L (98-107); Estimated CRCL calculation 112 ml/min; Estimated Glomerular Filt Rate > 60; Glucose 130 mg/dL (65-110); Potassium 4.4 mmol/L (3.4-5.0); Sodium 139 mmol/L (137-145)
[2022-10-16 09:13] LABS: Platelet Count Result 8 k/mm3 (150-375)
[2022-10-16 09:19] LABS: Giant Platelets Present; Platelet Estimate Decreased (Adequate)
[2022-10-16 09:20] LABS: Howell Jolly Bodies 1+ (NORMAL); Schistocytes None Seen (NORMAL); Target Cells 1+ (NORMAL)
--- NOTE | 2022-10-16 10:59 | PM.CNOR ---
Assessment and Plan Assessment and plan (1) Fracture of distal end of left fibula: Qualifiers: Encounter type: initial encounter Fracture type: closed Fracture morphology: torus Qualified Code(s): S82.822A - Torus fracture of lower end of left fibula, initial encounter for closed fracture Code(s): S82.832A - Other fracture of upper and lower end of left fibula, initial encounter for closed fracture Status: Acute Assessment and Plan: New patient evaluation status post injury left ankle. The history, physical exam and radiographs reviewed with the patient and his father. twisting injury left ankle yesterday. Pain with weight-bearing. Patient has Down syndrome and thrombocytopenia. Type of fracture discussed in detail. Distal fibular fracture. Ankle mortise intact. Treatment options including operative and non operative treatment reviewed. Risks, benefits and alternatives of each treatment discussed in detail. The patient has declined surgical treatment. Risks of treatment decision discussed in detail. Potential problems with displacement of the fracture, loss of alignment, nonunion, malunion and dysfunction discussed in detail. The patient's questions were answered. They verbalized understanding and agreement. Conservative treatment with immobilization, ice, compression and elevation. Fit with fracture boot for protected weight-bearing. Gentle range of motion exercises reviewed. Edema control reviewed. Reviewed use of pain medication. Follow-up in 2-3 weeks for new radiographs. History of Present Illness HPI Consult date: 10/16/22 Requesting physician: Luis Bower MD Consult reason: fracture ( left ankle) Chief complaint: thrombocytopenia Narrative: 27-year-old gentleman with Down syndrome who twisted left ankle yesterday. Radiographs in the emergency room show distal fibular fracture. Review of Systems Constitutional: Constitutional: Denies fever(s) Eyes: Eyes: Denies blurry vision ENT: Reports Normal hearing present Cardiovascular: Cardiovascular: Denies chest pain and Denies dyspnea Respiratory: Respiratory: Denies dyspnea and Denies wheezing Gastrointestinal: Gastrointestinal: Denies abdominal pain Genitourinary: Genitourinary: Denies urinary urgency Musculoskeletal: Musculoskeletal: Reports as per HPI and Denies numbness Integumentary/Breasts: Skin/Breast: Denies changing lesions and Denies sores Neurologic: Reports Normal hearing present, Denies behavioral changes, Denies confusion, Denies numbness and Denies convulsions Psychiatric: Psychiatric: Denies behavioral changes, Denies confusion and Denies hallucinations Endocrine: Endocrine: Denies heat intolerance Hematologic/Lymphatic: Hematologic/Lymphatic: Denies easy bleeding Allergic/Immunologic: Allergic/Immunologic: Denies wheezing PMFSH Past Medical History Medical History (Updated 10/16/22 @ 11:01 by Tod Ramirez MD) Adrenal insufficiency Anemia Autism spectrum disorder Common variable immunodeficiency Down syndrome Rios syndrome Fracture of distal end of left fibula Heart murmur Hypothyroidism, unspecified Incomplete rotation intestine Nystagmus Surgical History Surgical History History of ventricular septal defect repair Post-splenectomy Family History Family History Father Prostate carcinoma Social History Social History Smoking status: Never smoker Second hand tobacco smoke exposure: No Alcohol intake: never Substance use: never Additional living arrangements comments: He lives at home with his parents. He is dependent for care. Additional occupation/education comments: Disabled Gender identity (if verbalized by the patient): Male Spiritual care concerns: No Meds Home Medications and Allergies
[2022-10-16] MEDS: DEXAMETHASONE 4 MG TABLET 40 MG PO (12:24)
[2022-10-16] MEDS: PANTOPRAZOLE 40 MG TABLET PO (12:25)
[2022-10-16] MEDS: FOLIC ACID 0.4 MG TABLET 0.8 MG PO (12:26)
[2022-10-16] MEDS: THERAPEUTIC MULTIVITAMINS/MINERALS TAB (*BKC) 1 TABLET PO (12:26)
--- NOTE | 2022-10-16 13:37 | PM.DS ---
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 DS: Discharge Diagnosis Discharge Diagnosis (1) Fracture of distal end of left fibula: Qualifiers: Encounter type: initial encounter Fracture morphology: torus Fracture type: closed Qualified Code(s): S82.822A - Torus fracture of lower end of left fibula, initial encounter for closed fracture Code(s): S82.832A - Other fracture of upper and lower end of left fibula, initial encounter for closed fracture Status: Acute (2) Thrombocytopenia: Code(s): D69.6 - Thrombocytopenia, unspecified Status: Acute (3) Acquired autoimmune hemolytic anemia: Code(s): D59.10 - Autoimmune hemolytic anemia, unspecified Status: Acute (4) Hx of splenectomy: Code(s): Z90.81 - Acquired absence of spleen Status: Acute (5) Adrenal insufficiency due to corticosteroid withdrawal: Code(s): E27.3 - Drug-induced adrenocortical insufficiency; T38.0X5A - Adverse effect of glucocorticoids and synthetic analogues, initial encounter Status: Acute DS: Summary Hospital Course Reason for hospitalization: Petechial rash Hospital Course: Patient was admitted when his father noticed a petechial rash on his extremities. Yoav has a history of Rios syndrome which was treated medically initially and then about 2 years ago with a splenectomy. He has done well for 2 years. However he was admitted with a platelet count of 5000. After consultation with Hematology at [place] he was started on dexamethasone 40 mg p.o. daily platelet count remains stable overnight with count at 8000 on day of discharge hemoglobin was stable at 14.2 white count 54483 creatinine 0.7 and INR 1.2 He did have a history of twisting his ankle and was limping on it and x-ray did show a spiral fracture of the left fibula. Orthopedics was consulted and a walking boot was recommended for 3-[address] Jose Viera planned to contact [facility] health director on Monday and schedule follow-up appointment. A standing order for follow-up CBC was provided for use in the meantime. Time Spent with Patient Time attestation: Total time spent providing and/or coordinating discharge services: DS: Data Data Completed and Pending Labs on day of discharge: Labs from last 24 hours 0710/15/22 10/15/22 08:35 17:02 16:47 WBC 11.2 H RBC 4.48 L Hgb 14.2 Hct 42.7 MCV 95.3 MCH 31.7 MCHC 33.3 RDW 16.0 H Plt Count 8 L* D MPV TNP Immature Gran % (Auto) 1.1 H Neut % (Auto) 73.6 H Lymph % (Auto) 23.9 [place] % (Auto) 1.0 L Eos % (Auto) 0.0 Baso % (Auto) 0.4 Lymph # (Auto) 2.68 [place] # (Auto) 0.1 Eos # (Auto) 0.0 Baso # (Auto) 0.0 Abs Immat Gran (auto) 0.12 H Absolute Neuts (auto) 8.3 H Absolute Nucleated RBC 0.0 Nucleated RBC % 0.2 Platelet Estimate Decreased Giant Platelets Present % Immature Plt Fraction 28.6 H Target Cells 1+ [place] Bodies 1+ Schistocytes None seen ESR Absolute Retic Percent Retic Immature Retic Fraction Retic Hgb Content Cancelled Haptoglobin Pending Sodium 139 139 Potassium 4.4 4.4 Chloride 107 105 Carbon Dioxide 22 27 Anion Gap 10 7 L BUN 24 H 21 H Creatinine 0.70 0.80 Estim Creat Clear Calc 112 99 Estimated GFR > 60 > 60 Glucose 130 H 109 Calcium 8.9 8.8 Total Bilirubin 0.3 AST 37 ALT 51 H Alkaline Phosphatase 114 Lactate Dehydrogenase 99 L Total Protein 7.0 Albumin 3.9 Urine Color Yellow Urine Appearance Clear Urine pH 6.0 Ur Specific Prole 1.018 Urine Protein Negative Urine Glucose (UA) Negative Urine Ketones Negative Ur Blood (Man) Negative Urine Nitrate Negative Urine Bilirubin Negative Urine Urobilinogen 0.2 Leukocyte Esterase Rfl Negativ
[2022-10-16 14:00] VITALS: BP 119/67; PULSE 63; RESP 18; TEMP 36.6; O2SAT 98
[2022-10-16 14:04] LABS: IFOB Positive Control Positive; Immunochemical Fecal Occult Bl Positive (N)
[2022-10-16 16:08] LABS: Hematocrit 43.8 % (42.0-52.0); Hemoglobin 14.5 g/dL (14.0-18.0); Immature Platelet Fraction Pct 23.9 % (0.9-11.2); Mean Corpuscular HGB Conc 33.1 g/dl (32-36); Mean Corpuscular Hemoglobin 31.7 pg (26-34); Mean Corpuscular Volume 95.8 fl (80-100); Red Blood Count 4.57 M/mm3 (4.6-6.20); Red Cell Distribution Width 16.1 % (11.5-14.5); White Blood Count 18.8 K/mm3 (4.5-10.0)
[2022-10-16 16:24] LABS: Platelet Count Result 15 k/mm3 (150-375)
[2022-10-18 08:21] LABS: Haptoglobin 173 mg/dL (43-212)
== END 2022-10-16 16:42 | disposition home or self-care (01) | DRG 813 ==
LOC: ANHED 17:55 → ANH3MED 20:13
PROVIDERS: Emergency Medicine; Admitting Provider Internal Medicine; Emergency Provider Physician Assistant; PCP Pediatrics; Visit Provider Internal Medicine
DX: D69.41 Evans syndrome (principal); D59.19 Other autoimmune hemolytic anemia; F84.0 Autistic disorder; E27.3 Drug-induced adrenocortical insufficiency; T38.0X5A Adverse effect of glucocorticoids and synthetic analogues, initial encounter; D69.59 Other secondary thrombocytopenia; S82.822A Torus fracture of lower end of left fibula, initial encounter for closed fracture; E03.9 Hypothyroidism, unspecified; Q90.9 Down syndrome, unspecified; Z90.81 Acquired absence of spleen; X50.1XXA Overexertion from prolonged static or awkward postures, initial encounter
CPT/HCPCS: 29515; 36415; 73610; 80048; 80053; 81003; 82274; 83010; 83615; 85025; 85027; 85046; 85055; 85652; 86850; 86900; 86901; 99285; A9270; G0378; J8540

== ENCOUNTER 2022-10-20 13:53 | Outpatient (CLI) | payer BC, MEDICAID, SELFPAY ==
[2022-10-20 14:35] LABS: Basophils Absolute Auto 0.1 K/mm3 (0.0-0.1); Basophils Percent Auto 0.9 % (0.2-1.2); Eosinophils Percent Auto 0.1 % (0-4.4); Hematocrit 47.3 % (42.0-52.0); Hemoglobin 15.7 g/dL (14.0-18.0); Immature Granulocyte Absolute 0.56 K/mm3 (0.00-0.031); Immature Granulocyte Percent A 3.8 % (0-0.5); Immature Platelet Fraction Pct 12.1 % (0.9-11.2); Lymphocytes Absolute Auto 2.23 K/mm3 (0.9-3.2); Mean Corpuscular HGB Conc 33.2 g/dl (32-36); Mean Corpuscular Hemoglobin 31.7 pg (26-34); Mean Corpuscular Volume 95.6 fl (80-100); Monocytes Percent Auto 6.4 % (2.6-8.5); Neutrophils Percent Auto 73.8 % (45.5-73.1); Nucleated Red Blood Cells Perc 0.2 % (0.0-0.2); Platelet Count Result 37 k/mm3 (150-375); Red Blood Count 4.95 M/mm3 (4.6-6.20); Red Cell Distribution Width 16.5 % (11.5-14.5); White Blood Count 14.9 K/mm3 (4.5-10.0)
[2022-10-20 14:36] LABS: Immature Reticulocyte Fraction 12.4 % (3.0-15.9); Reticulocyte Hemoglobin Conten 36.7 pg (28.2-35.7); Reticulocyte Percent 2.28 % (0.7-4.3); Reticulocytes Absolute 0.11 M/mm3 (0.02-0.1)
[2022-10-20 14:45] LABS: Alanine Aminotransferase 54 U/L (6-50); Albumin Level 3.7 g/dL (3.5-5.1); Alkaline Phosphatase 96 U/L (38-126); Anion Gap 5 mmol/L (8-16); Aspartate Amino Transferase 40 U/L (17-59); Bilirubin,Total 0.3 mg/dL (0.2-1.3); Blood Urea Nitrogen 36 mg/dL (9-20); Calcium 8.2 mg/dL (8.4-10.2); Carbon Dioxide 23 mmol/L (22-30); Chloride 106 mmol/L (98-107); Estimated Glomerular Filt Rate > 60; Glucose 132 mg/dL (65-110); Lactate Dehydrogenase 110 U/L (120-246); Potassium 3.8 mmol/L (3.4-5.0); Sodium 134 mmol/L (137-145)
[2022-10-20 15:27] LABS: Anisocytosis 1+ (NORMAL); Platelet Estimate Decreased (Adequate); Schistocytes None Seen (NORMAL)
[2022-10-20 23:48] LABS: Hemoglobin A1C 5.5 % (<5.7)
[2022-10-25 04:12] LABS: Haptoglobin 80 mg/dL (43-212)
[2022-10-28 07:36] LABS: Platelet Antibody, Direct IgG Positive
== END 2022-10-20 13:54 | disposition home or self-care (01) ==
LOC: ANHLAB 13:55
PROVIDERS: PCP Pediatrics; Visit Provider Internal Medicine
DX: R73.9 Hyperglycemia, unspecified (principal); E27.40 Unspecified adrenocortical insufficiency; D69.41 Evans syndrome; D61.818 Other pancytopenia; D59.10 Autoimmune hemolytic anemia, unspecified; D69.6 Thrombocytopenia, unspecified
CPT/HCPCS: 36415; 80053; 83010; 83036; 83615; 85025; 85046; 85055; 86023; 86880

== ENCOUNTER 2022-10-24 17:16 | Outpatient (CLI) | payer BC, MEDICAID, SELFPAY ==
[2022-10-24 17:57] LABS: Hematocrit 40.9 % (42.0-52.0); Hemoglobin 14.3 g/dL (14.0-18.0); Immature Platelet Fraction Pct 37.7 % (0.9-11.2); Mean Corpuscular Hemoglobin 31.8 pg (26-34); Mean Corpuscular Volume 90.9 fl (80-100); Red Cell Distribution Width 16.5 % (11.5-14.5); White Blood Count 13.5 K/mm3 (4.5-10.0)
[2022-10-24 18:23] LABS: Platelet Count Result 11 k/mm3 (150-375)
== END 2022-10-24 17:17 | disposition home or self-care (01) ==
LOC: ANHLAB 17:18
PROVIDERS: PCP Pediatrics; Visit Provider Internal Medicine
DX: D69.6 Thrombocytopenia, unspecified (principal); D59.10 Autoimmune hemolytic anemia, unspecified
CPT/HCPCS: 36415; 85027; 85055

== ENCOUNTER → 2022-11-08 15:58 | Outpatient (CLI) | payer SELFPAY ==
--- NOTE | ~2022-11-08 | XR_ITS ---
EXAMINATION: XR ankle LT min 3V DATE: 11/08/2022 16:19 INDICATION: Left ankle fracture follow-up TECHNIQUE: Anteroposterior, oblique, mortise, and lateral views of the left ankle were obtained. COMPARISON: 10/15/2022 FINDINGS: Nondisplaced oblique fracture of the distal left fibula with new callus formation not yet definitivel y solidly bridging about the fracture line. No significant change in a minimally displaced small like ly avulsion fracture at the posterolateral margin of the distal tibia. Is fractured occluded profiled without additional superimposed bone and remains indeterminate whether there is any associated calci fication. No other fractures identified. Joint spaces are normal. Decreased mild soft tissue swelling about the lateral malleolus. IMPRESSION: 1. Healing fracture of the distal left fibula which remains in essentially anatomic alignment. 2. No significant change in minimal distraction of a small avulsion fracture at the posterolateral as pect of the distal tibia. Reviewed, dictated and finalized at location L. IMPRESSION: 1. Healing fracture of the distal left fibula which remains in essentially sarina omic alignment. 2. No significant change in minimal distraction of a small avulsion fracture at the posterolateral aspect of the distal tibia.
== END ==
PROVIDERS: PCP Internal Medicine; Visit Provider Internal Medicine
DX: S82.892D Other fracture of left lower leg, subsequent encounter for closed fracture with routine healing (principal); X58.XXXD Exposure to other specified factors, subsequent encounter
CPT/HCPCS: 73610

== ENCOUNTER 2022-12-02 11:11 | Outpatient (CLI) | payer BC, MEDICAID, SELFPAY ==
[2022-12-02 12:02] LABS: Basophils Absolute Auto 0.3 K/mm3 (0.0-0.1); Basophils Percent Auto 2.7 % (0.2-1.2); Eosinophils Absolute Auto 0.1 K/mm3 (0-0.3); Eosinophils Percent Auto 1.1 % (0-4.4); Hematocrit 39.6 % (42.0-52.0); Hemoglobin 12.2 g/dL (14.0-18.0); Immature Granulocyte Absolute 0.19 K/mm3 (0.00-0.031); Immature Granulocyte Percent A 1.5 % (0-0.5); Lymphocytes Absolute Auto 4.76 K/mm3 (0.9-3.2); Lymphocytes Percent Auto 38.7 % (18.3-44.2); Mean Corpuscular HGB Conc 30.8 g/dl (32-36); Mean Corpuscular Hemoglobin 29.3 pg (26-34); Mean Corpuscular Volume 95.2 fl (80-100); Mean Platelet Volume 10.9 fl (7.4-10.4); Monocytes Absolute Auto 1.3 K/mm3 (0.1-0.6); Monocytes Percent Auto 10.8 % (2.6-8.5); Neutrophils Absolute Auto 5.6 K/mm3 (1.3-6.7); Neutrophils Percent Auto 45.2 % (45.5-73.1); Nucleated Red Blood Cells Perc 0.2 % (0.0-0.2); Platelet Count Result 670 k/mm3 (150-375); Red Blood Count 4.16 M/mm3 (4.6-6.20); Red Cell Distribution Width 16.1 % (11.5-14.5); White Blood Count 12.3 K/mm3 (4.5-10.0)
[2022-12-02 12:27] LABS: Alanine Aminotransferase 56 U/L (6-50); Albumin Level 3.6 g/dL (3.5-5.1); Alkaline Phosphatase 121 U/L (38-126); Anion Gap 6 mmol/L (8-16); Aspartate Amino Transferase 73 U/L (17-59); Bilirubin,Total 0.2 mg/dL (0.2-1.3); Blood Urea Nitrogen 18 mg/dL (9-20); Calcium 8.5 mg/dL (8.4-10.2); Carbon Dioxide 27 mmol/L (22-30); Chloride 106 mmol/L (98-107); Estimated Glomerular Filt Rate > 60; Glucose 94 mg/dL (65-110); Potassium 3.8 mmol/L (3.4-5.0); Sodium 139 mmol/L (137-145)
[2022-12-02 12:54] LABS: Erythrocyte Sedimentation Rate 21 mm/hr (0-20)
== END 2022-12-02 11:12 | disposition home or self-care (01) ==
LOC: ANHGOSHLAB 11:14
PROVIDERS: PCP Internal Medicine; Visit Provider Internal Medicine
DX: E55.9 Vitamin D deficiency, unspecified (principal); D69.41 Evans syndrome; D69.6 Thrombocytopenia, unspecified; E27.40 Unspecified adrenocortical insufficiency; R74.8 Abnormal levels of other serum enzymes
CPT/HCPCS: 36415; 80053; 82306; 82728; 85025; 85652

== ENCOUNTER → 2022-12-02 11:31 | Outpatient (CLI) | payer BC, MEDICAID, SELFPAY ==
--- NOTE | ~2022-12-02 | XR_ITS ---
Left ankle Technique: AP, oblique, and lateral views were obtained. Clinical History: Fracture COMPARISON: 11/08/2022 Findings: There is a healing oblique fracture of the distal fibular shaft, with callus formation pres ent. Ankle mortise and other visualized joint spaces are preserved. Soft tissues are otherwise unrem arkable. Impression: Partial interval healing of oblique fracture of the distal fibular shaft. Reviewed, dictated and finalized at location M. Impression: Partial interval healing of oblique fracture of the distal fibular shaft.
--- NOTE | ~2022-12-02 | XR_ITS ---
Clinical Indication: Interstitial pulmonary disease PA and lateral views of the chest: Comparison: 10/08/2021 Findings: The lungs are clear, without evidence of focal consolidation or pleural effusion. Cardiome diastinal silhouette is within normal limits, status post median sternotomy. Bones and soft tissues a re unremarkable. Impression: Clear lungs. Reviewed, dictated and finalized at location . Impression: Clear lungs.
== END ==
PROVIDERS: PCP Internal Medicine; Visit Provider Internal Medicine
DX: S82.8 Other fractures of lower leg (principal); X58.XXXD Exposure to other specified factors, subsequent encounter; J84.9 Interstitial pulmonary disease, unspecified
CPT/HCPCS: 71046; 73610

== ENCOUNTER 2022-12-16 13:13 | Outpatient (CLI) | payer BC, MEDICAID, SELFPAY ==
[2022-12-16 19:08] LABS: Basophils Absolute Auto 0.2 K/mm3 (0.0-0.1); Basophils Percent Auto 1.4 % (0.2-1.2); Eosinophils Absolute Auto 0.1 K/mm3 (0-0.3); Eosinophils Percent Auto 0.9 % (0-4.4); Hematocrit 40.1 % (42.0-52.0); Hemoglobin 12.7 g/dL (14.0-18.0); Immature Granulocyte Absolute 0.07 K/mm3 (0.00-0.031); Immature Granulocyte Percent A 0.5 % (0-0.5); Immature Reticulocyte Fraction 27.9 % (3.0-15.9); Lymphocytes Absolute Auto 4.64 K/mm3 (0.9-3.2); Mean Corpuscular HGB Conc 31.7 g/dl (32-36); Mean Corpuscular Volume 97.8 fl (80-100); Monocytes Absolute Auto 0.5 K/mm3 (0.1-0.6); Monocytes Percent Auto 3.6 % (2.6-8.5); Neutrophils Absolute Auto 8.5 K/mm3 (1.3-6.7); Neutrophils Percent Auto 60.6 % (45.5-73.1); Nucleated Red Blood Cells Perc 0.1 % (0.0-0.2); Platelet Count Result 129 k/mm3 (150-375); Red Cell Distribution Width 18.6 % (11.5-14.5); Reticulocyte Hemoglobin Conten 31.5 pg (28.2-35.7); Reticulocyte Percent 3.68 % (0.7-4.3); Reticulocytes Absolute 0.15 M/mm3 (0.02-0.1); White Blood Count 14.1 K/mm3 (4.5-10.0)
[2022-12-16 20:30] LABS: Folic Acid > 20.0 ng/mL (2.76->20)
== END 2022-12-16 13:14 | disposition home or self-care (01) ==
PROVIDERS: PCP Internal Medicine; Visit Provider Internal Medicine
DX: D69.6 Thrombocytopenia, unspecified (principal); D64.9 Anemia, unspecified; D69.41 Evans syndrome
CPT/HCPCS: 36415; 82607; 82728; 82746; 85025; 85046

== ENCOUNTER 2022-12-23 13:16 | Outpatient (CLI) | payer BC, MEDICAID, SELFPAY ==
[2022-12-23 17:02] LABS: Lactate Dehydrogenase 120 U/L (120-246)
[2022-12-23 17:04] LABS: Alanine Aminotransferase 38 U/L (6-50); Albumin Level 3.9 g/dL (3.5-5.1); Alkaline Phosphatase 128 U/L (38-126); Anion Gap 7 mmol/L (8-16); Aspartate Amino Transferase 53 U/L (17-59); Bilirubin,Total 0.3 mg/dL (0.2-1.3); Blood Urea Nitrogen 18 mg/dL (9-20); Calcium 8.6 mg/dL (8.4-10.2); Carbon Dioxide 26 mmol/L (22-30); Chloride 105 mmol/L (98-107); Estimated Glomerular Filt Rate > 60; Glucose 124 mg/dL (65-110); Potassium 4.4 mmol/L (3.4-5.0); Sodium 138 mmol/L (137-145)
[2022-12-23 17:07] LABS: Basophils Absolute Auto 0.2 K/mm3 (0.0-0.1); Basophils Percent Auto 1.3 % (0.2-1.2); Eosinophils Absolute Auto 0.1 K/mm3 (0-0.3); Eosinophils Percent Auto 0.8 % (0-4.4); Hematocrit 43.2 % (42.0-52.0); Hemoglobin 13.6 g/dL (14.0-18.0); Immature Granulocyte Absolute 0.04 K/mm3 (0.00-0.031); Immature Granulocyte Percent A 0.3 % (0-0.5); Immature Reticulocyte Fraction 17.5 % (3.0-15.9); Lymphocytes Absolute Auto 3.54 K/mm3 (0.9-3.2); Lymphocytes Percent Auto 29.5 % (18.3-44.2); Mean Corpuscular HGB Conc 31.5 g/dl (32-36); Mean Corpuscular Hemoglobin 30.8 pg (26-34); Mean Platelet Volume 11.7 fl (7.4-10.4); Monocytes Absolute Auto 0.7 K/mm3 (0.1-0.6); Monocytes Percent Auto 5.4 % (2.6-8.5); Neutrophils Absolute Auto 7.5 K/mm3 (1.3-6.7); Neutrophils Percent Auto 62.7 % (45.5-73.1); Platelet Count Result 350 k/mm3 (150-375); Red Blood Count 4.41 M/mm3 (4.6-6.20); Red Cell Distribution Width 18.4 % (11.5-14.5); Reticulocyte Hemoglobin Conten 32.1 pg (28.2-35.7); Reticulocyte Percent 2.19 % (0.7-4.3)
[2022-12-23 17:22] LABS: Iron 61 ug/dL (49-181)
[2022-12-23 17:52] LABS: Thyroid Stimulating Hormone 0.033 uIU/mL (0.465-4.680)
[2022-12-23 20:17] LABS: Percent Iron Saturation 16 % (20-50)
[2022-12-28 19:30] LABS: Haptoglobin 210 mg/dL (43-212)
== END 2022-12-23 13:17 | disposition home or self-care (01) ==
LOC: ANHGOSHLAB 13:18
PROVIDERS: PCP Internal Medicine; Visit Provider Internal Medicine
DX: D58.9 Hereditary hemolytic anemia, unspecified (principal); D69.41 Evans syndrome; D69.6 Thrombocytopenia, unspecified; E03.9 Hypothyroidism, unspecified; E27.40 Unspecified adrenocortical insufficiency; R74.8 Abnormal levels of other serum enzymes
CPT/HCPCS: 36415; 80053; 82728; 83010; 83540; 83550; 83615; 84443; 85025; 85046

== ENCOUNTER 2023-03-08 14:12 | Outpatient (CLI) | payer BC, MEDICAID, SELFPAY ==
[2023-03-08 19:10] LABS: Basophils Absolute Auto 0.2 K/mm3 (0.0-0.1); Basophils Percent Auto 1.1 % (0.2-1.2); Eosinophils Percent Auto 0.1 % (0-4.4); Hematocrit 48.7 % (42.0-52.0); Hemoglobin 15.6 g/dL (14.0-18.0); Immature Granulocyte Absolute 0.11 K/mm3 (0.00-0.031); Immature Granulocyte Percent A 0.7 % (0-0.5); Lymphocytes Absolute Auto 3.27 K/mm3 (0.9-3.2); Mean Corpuscular Hemoglobin 30.6 pg (26-34); Mean Corpuscular Volume 95.5 fl (80-100); Mean Platelet Volume 10.5 fl (7.4-10.4); Monocytes Absolute Auto 0.8 K/mm3 (0.1-0.6); Monocytes Percent Auto 5.7 % (2.6-8.5); Neutrophils Absolute Auto 10.4 K/mm3 (1.3-6.7); Neutrophils Percent Auto 70.4 % (45.5-73.1); Platelet Count Result 527 k/mm3 (150-375); Red Cell Distribution Width 18.4 % (11.5-14.5); White Blood Count 14.8 K/mm3 (4.5-10.0)
[2023-03-08 19:38] LABS: Complement C3 130 mg/dL (88-165)
[2023-03-08 19:44] LABS: Alanine Aminotransferase 33 U/L (6-50); Albumin Level 3.6 g/dL (3.5-5.1); Alkaline Phosphatase 151 U/L (38-126); Anion Gap 7 mmol/L (8-16); Aspartate Amino Transferase 38 U/L (17-59); Bilirubin,Total 0.3 mg/dL (0.2-1.3); Blood Urea Nitrogen 19 mg/dL (9-20); Calcium 8.6 mg/dL (8.4-10.2); Carbon Dioxide 26 mmol/L (22-30); Chloride 106 mmol/L (98-107); Estimated Glomerular Filt Rate > 60; Glucose 113 mg/dL (65-110); Potassium 3.9 mmol/L (3.4-5.0); Sodium 139 mmol/L (137-145)
[2023-03-08 19:56] LABS: Erythrocyte Sedimentation Rate 5 mm/hr (0-20)
[2023-03-08 20:08] LABS: Vitamin D 25 Hydroxy 55.5 ng/mL
[2023-03-08 20:12] LABS: Thyroid Stimulating Hormone 0.943 uIU/mL (0.465-4.680)
[2023-03-13 22:14] LABS: ANCA Screen Negative (Negative)
== END 2023-03-08 14:13 | disposition home or self-care (01) ==
PROVIDERS: PCP Internal Medicine; Visit Provider Internal Medicine
DX: D59.10 Autoimmune hemolytic anemia, unspecified (principal); D69.41 Evans syndrome; E03.9 Hypothyroidism, unspecified; E55.9 Vitamin D deficiency, unspecified; I77.6 Arteritis, unspecified; R74.8 Abnormal levels of other serum enzymes
CPT/HCPCS: 36415; 80053; 82306; 82728; 84443; 85025; 85652; 86036; 86038; 86160

== ENCOUNTER 2023-05-29 14:55 | Outpatient (CLI) | payer BC, MEDICAID, SELFPAY ==
[2023-05-29 16:18] LABS: Hematocrit 46.2 % (42.0-52.0); Hemoglobin 15.3 g/dL (14.0-18.0); Immature Reticulocyte Fraction 15.9 % (3.0-15.9); Mean Corpuscular HGB Conc 33.1 g/dl (32-36); Mean Corpuscular Hemoglobin 32.7 pg (26-34); Mean Corpuscular Volume 98.7 fl (80-100); Mean Platelet Volume 11.6 fl (7.4-10.4); Platelet Count Result 457 k/mm3 (150-375); Red Blood Count 4.68 M/mm3 (4.6-6.20); Red Cell Distribution Width 16.7 % (11.5-14.5); Reticulocyte Hemoglobin Conten 34.3 pg (28.2-35.7); Reticulocyte Percent 1.92 % (0.7-4.3); Reticulocytes Absolute 0.09 M/mm3 (0.02-0.1); White Blood Count 24.4 K/mm3 (4.5-10.0)
[2023-05-29 16:30] LABS: Alanine Aminotransferase 59 U/L (6-50); Albumin Level 3.6 g/dL (3.5-5.1); Alkaline Phosphatase 132 U/L (38-126); Anion Gap 6 mmol/L (8-16); Aspartate Amino Transferase 90 U/L (17-59); Bilirubin,Total 0.5 mg/dL (0.2-1.3); Blood Urea Nitrogen 19 mg/dL (9-20); Calcium 9.1 mg/dL (8.4-10.2); Carbon Dioxide 25 mmol/L (22-30); Chloride 109 mmol/L (98-107); Estimated Glomerular Filt Rate > 60; Glucose 102 mg/dL (65-110); Lactate Dehydrogenase 93 U/L (120-246); Potassium 4.3 mmol/L (3.4-5.0); Sodium 140 mmol/L (137-145)
[2023-05-29 16:51] LABS: Lymphocytes Absolute Manual 5.61 K/mm3 (1.1-4.5); Monocytes Absolute Manual 0.97 K/mm3 (0.1-0.90); Monocytes Percent Manual 4 % (3-9); Neutrophils Percent Manual 73 % (46-73); Total Cells Counted 100
[2023-05-29 16:52] LABS: Anisocytosis 2+ (NORMAL); Platelet Estimate Increased (Adequate); Schistocytes None Seen (NORMAL)
== END 2023-05-29 14:56 | disposition home or self-care (01) ==
LOC: ANHGOSHLAB 14:57
PROVIDERS: PCP Internal Medicine; Visit Provider Internal Medicine
DX: D69.41 Evans syndrome (principal); D58.9 Hereditary hemolytic anemia, unspecified; E03.9 Hypothyroidism, unspecified; Z90.81 Acquired absence of spleen
CPT/HCPCS: 36415; 80053; 82728; 83615; 84443; 85025; 85046; 86880

== ENCOUNTER 2023-06-30 11:53 | Outpatient (CLI) | payer BC, MEDICAID, SELFPAY ==
--- NOTE | ~2023-06-30 | XR_ITS ---
EXAMINATION: XR chest 2V DATE: 06/30/2023 12:40 INDICATION: Cough. Fever. TECHNIQUE: Frontal and lateral views of the chest were obtained. COMPARISON: Chest 2 views 12/02/2022 FINDINGS: There are airspace opacities in left perihilar region. No pleural effusion or pneumothorax. The heart size is normal. Small median sternotomy wires are noted. There are surgical clips in left abdomen. IMPRESSION: 1. Mild airspace opacities in left perihilar region, consistent with atelectasis versus pneumonia. Reviewed, dictated and finalized at location A. IMPRESSION: 1. Mild airspace opacities in left perihilar region, consistent with atelectasi s versus pneumonia.
== END 2023-06-30 11:54 ==
LOC: MICIMG 11:54
PROVIDERS: PCP Internal Medicine; Visit Provider Pediatrics
DX: R05.1 Acute cough (principal); R50.9 Fever, unspecified
CPT/HCPCS: 71046

== ENCOUNTER 2023-07-22 11:56 | Outpatient (CLI) | payer BC, MEDICAID, SELFPAY ==
[2023-07-22 12:21] LABS: Basophils Absolute Auto 0.2 K/mm3 (0.0-0.1); Basophils Percent Auto 1.8 % (0.2-1.2); Eosinophils Absolute Auto 0.2 K/mm3 (0-0.3); Eosinophils Percent Auto 1.7 % (0-4.4); Hematocrit 48.3 % (42.0-52.0); Hemoglobin 15.8 g/dL (14.0-18.0); Immature Granulocyte Absolute 0.08 K/mm3 (0.00-0.031); Immature Granulocyte Percent A 0.7 % (0-0.5); Immature Reticulocyte Fraction 15.1 % (3.0-15.9); Lymphocytes Percent Auto 21.3 % (18.3-44.2); Mean Corpuscular HGB Conc 32.7 g/dl (32-36); Mean Corpuscular Hemoglobin 32.6 pg (26-34); Mean Corpuscular Volume 99.8 fl (80-100); Mean Platelet Volume 10.8 fl (7.4-10.4); Monocytes Absolute Auto 1.2 K/mm3 (0.1-0.6); Monocytes Percent Auto 10.4 % (2.6-8.5); Neutrophils Absolute Auto 7.2 K/mm3 (1.3-6.7); Neutrophils Percent Auto 64.1 % (45.5-73.1); Platelet Count Result 489 k/mm3 (150-375); Red Blood Count 4.84 M/mm3 (4.6-6.20); Red Cell Distribution Width 17.1 % (11.5-14.5); Reticulocyte Hemoglobin Conten 34.8 pg (28.2-36.6); Reticulocyte Percent 2.32 % (0.7-4.3); Reticulocytes Absolute 0.11 10^6/uL (0.02-0.10); White Blood Count 11.3 K/mm3 (4.5-10.0)
[2023-07-22 12:33] LABS: Alanine Aminotransferase 52 U/L (6-50); Albumin Level 3.9 g/dL (3.5-5.1); Alkaline Phosphatase 128 U/L (38-126); Anion Gap 6 mmol/L (4-12); Aspartate Amino Transferase 42 U/L (17-59); Bilirubin,Total 0.4 mg/dL (0.2-1.3); Blood Urea Nitrogen 17 mg/dL (9-20); Carbon Dioxide 25 mmol/L (22-30); Chloride 108 mmol/L (98-107); Cholesterol 178 mg/dL (0-200); Estimated Glomerular Filt Rate > 60; Glucose 125 mg/dL (65-110); HDL Direct 45 mg/dL; Potassium 4.1 mmol/L (3.4-5.0); Sodium 139 mmol/L (137-145); Triglycerides 163 mg/dL (<150)
[2023-07-22 12:40] LABS: Lactate Dehydrogenase 89 U/L (120-246)
[2023-07-22 12:41] LABS: LDL Cholesterol Direct 102 mg/dL
[2023-07-22 12:50] LABS: Vitamin D 25 Hydroxy 96.5 ng/mL
[2023-07-24 11:23] LABS: Haptoglobin 171 mg/dL (43-212)
== END 2023-07-22 11:57 | disposition home or self-care (01) ==
LOC: ANHLAB 12:01
PROVIDERS: PCP Internal Medicine; Visit Provider Internal Medicine
DX: E55.9 Vitamin D deficiency, unspecified (principal); D59.10 Autoimmune hemolytic anemia, unspecified; D69.41 Evans syndrome; R74.8 Abnormal levels of other serum enzymes; D83.9 Common variable immunodeficiency, unspecified; Z13.220 Encounter for screening for lipoid disorders
CPT/HCPCS: 36415; 80053; 80061; 82306; 82728; 83010; 83615; 85025; 85046; 86880

== ENCOUNTER 2023-09-18 11:00 | Outpatient (CLI) | payer BC, MEDICAID, SELFPAY ==
--- NOTE | ~2023-09-18 | XR_ITS ---
EXAMINATION: XR chest 2V DATE: 09/18/2023 11:35 INDICATION: Cough. Fever. TECHNIQUE: Frontal and lateral views of the chest were obtained. COMPARISON: Chest 2 views 06/30/2023 FINDINGS: There is no pneumonia, pleural effusion, or pneumothorax. The heart size is normal. Childho od median sternotomy wires are noted. IMPRESSION: 1. No acute cardiopulmonary disease. Reviewed, dictated and finalized at location E.
[2023-09-18 11:23] LABS: Basophils Absolute Auto 0.2 K/mm3 (0.0-0.1); Basophils Percent Auto 0.8 % (0.2-1.2); Eosinophils Percent Auto 0.1 % (0-4.4); Hematocrit 45.6 % (42.0-52.0); Hemoglobin 15.8 g/dL (14.0-18.0); Immature Granulocyte Absolute 0.22 K/mm3 (0.00-0.031); Immature Granulocyte Percent A 0.9 % (0-0.5); Immature Reticulocyte Fraction 14.7 % (3.0-15.9); Lymphocytes Absolute Auto 2.52 K/mm3 (0.9-3.2); Lymphocytes Percent Auto 10.6 % (18.3-44.2); Mean Corpuscular HGB Conc 34.6 g/dl (32-36); Mean Corpuscular Hemoglobin 33.1 pg (26-34); Mean Corpuscular Volume 95.6 fl (80-100); Mean Platelet Volume 11.3 fl (7.4-10.4); Monocytes Absolute Auto 1.4 K/mm3 (0.1-0.6); Monocytes Percent Auto 5.7 % (2.6-8.5); Neutrophils Absolute Auto 19.4 K/mm3 (1.3-6.7); Neutrophils Percent Auto 81.9 % (45.5-73.1); Platelet Count Result 355 k/mm3 (150-375); Red Blood Count 4.77 M/mm3 (4.6-6.20); Red Cell Distribution Width 16.4 % (11.5-14.5); Reticulocyte Hemoglobin Conten 34.5 pg (28.2-36.6); Reticulocyte Percent 2.01 % (0.7-4.3); White Blood Count 23.8 K/mm3 (4.5-10.0)
[2023-09-18 11:35] LABS: Alanine Aminotransferase 75 U/L (6-50); Albumin Level 3.8 g/dL (3.5-5.1); Alkaline Phosphatase 179 U/L (38-126); Anion Gap 10 mmol/L (4-12); Aspartate Amino Transferase 49 U/L (17-59); Bilirubin,Total 0.7 mg/dL (0.2-1.3); Blood Urea Nitrogen 27 mg/dL (9-20); Calcium 8.8 mg/dL (8.4-10.2); Carbon Dioxide 19 mmol/L (22-30); Chloride 110 mmol/L (98-107); Estimated Glomerular Filt Rate > 60; Glucose 108 mg/dL (65-110); Lactate Dehydrogenase 87 U/L (120-246); Potassium 4.3 mmol/L (3.4-5.0); Sodium 139 mmol/L (137-145)
[2023-09-18 11:39] LABS: Immunoglobulin G 1320 mg/dL (700-1600)
[2023-09-18 12:41] LABS: Erythrocyte Sedimentation Rate 14 mm/hr (0-20)
[2023-09-20 10:39] LABS: Haptoglobin 233 mg/dL (43-212)
[2023-09-21 14:34] LABS: Lyme Disease Ab (IgM), Blot NEGATIVE (NEGATIVE); Lyme Disease Ab(IgG), Blot NEGATIVE (NEGATIVE)
== END 2023-09-18 11:01 | disposition home or self-care (01) ==
LOC: ANHLAB 11:02
PROVIDERS: PCP Internal Medicine; Visit Provider Internal Medicine
DX: D64.9 Anemia, unspecified (principal); D69.41 Evans syndrome; D83.9 Common variable immunodeficiency, unspecified; E03.9 Hypothyroidism, unspecified; R50.9 Fever, unspecified; Z79.52 Long term (current) use of systemic steroids; J84.9 Interstitial pulmonary disease, unspecified; R05.9 Cough, unspecified
CPT/HCPCS: 36415; 71046; 80053; 82728; 82784; 83010; 83615; 84443; 85025; 85046; 85652; 86617; 86880

== ENCOUNTER 2023-09-18 11:31 | Emergency (ER) | payer BC, MEDICAID, SELFPAY ==
[2023-09-18] VITALS (9 sets, daily range): BP systolic 89–103; BP diastolic 47–66; PULSE 62–89; RESP 16–24; TEMP 36.8–37.1; O2SAT 96–98
--- NOTE | ~2023-09-18 | CT_ITS ---
EXAMINATION: CT abdomen pelvis w con DATE: 09/18/2023 14:27 INDICATION: Lower abdominal pain TECHNIQUE: Computed tomography (CT) of the abdomen and pelvis was performed with 100 mL Omnipaque-350 intravenous contrast. Automated exposure control and iterative reconstruction technique were employe d. The dose-length product was 289.53 mGy-cm. COMPARISON: CT dated 10/08/2021 FINDINGS: Mild emphysema in the visualized bilateral mid and lower lungs. Mild volume loss and linear atelectas is in the left lower lobe. There also some subtle small centrilobular groundglass nodules in the left lower lobe which are most likely infectious/inflammatory in etiology. Heart size is normal. No peric ardial or pleural effusion. Interval decrease in size of a centrally hypodense subcarinal, right para esophageal mass which extends 6.2 cm craniocaudally and measures up to 2.6 x 2.1 cm maximal transaxia l dimensions and which previously measured 2.9 x 2.2 cm in maximal transaxial dimensions. Liver, gall bladder, pancreas and bilateral adrenal glands are normal. Status post splenectomy with surgical clip s at the splenic fossa. 9 mm cyst at the lower pole of the right kidney. Nonspecific minimal right hy dronephrosis without evident obstructing stone or mass. Bladder is normal. No bowel obstruction. No f ree intraperitoneal gas or fluid. Mild to moderate lumbar spondylosis. There are multiple mildly enlarged lymph nodes beginning at the bilateral inguinal regions and extend ing along the bilateral external iliac chains, the largest on the left measuring 1.8 cm maximal trans axial dimensions which is decreased from 2.5 cm at the time of the prior study. Of note the these lym ph nodes demonstrate central hypodense yvan as does the previous noted subcarinal mass which also rep resents an enlarged lymph node. There has been also interval decrease in size of a few still enlarged gastrohepatic, periportal and portacaval lymph nodes. For reference the portacaval lymph node is dec reased from 2.5 cm in maximal short axis diameter 2. 1.8 cm in corresponding measurement. There are a lso multiple mildly prominent mesenteric and retroperitoneal lymph nodes also appear decreased in siz e since the prior study. IMPRESSION: 1. New subtle centrilobular groundglass nodules in the left lower lobe suggesting aspiration or pneum onia. 2. Interval decrease in size of multiple enlarged lymph nodes in the lower chest, abdomen and pelvis which may have been reactive or treated lymphoma or metastatic disease in the appropriate clinical se tting. Correlate with clinical history. 3. Minimal left hydronephrosis without evident obstructing stone or mass.. Reviewed, dictated and finalized at location A. IMPRESSION: 1. New subtle centrilobular groundglass nodules in the left lower lobe suggesti ng aspiration or pneumonia. 2. Interval decrease in size of multiple enlarged lymph nodes in the lower ches t, abdomen and pelvis which may have been reactive or treated lymphoma or metas tatic disease in the appropriate clinical setting. Correlate with clinical hist ory. 3. Minimal left hydronephrosis without evident obstructing stone or mass..
[2023-09-18] MEDS: SODIUM CHLORIDE 0.9% IV 1,000 ML 999 ML IV CONT ×2 (13:24→13:25)
--- NOTE | 2023-09-18 13:29 | ED.FEVER ---
HPI - Fever General Chief Complaint: Fever Stated Complaint: fever for over a week, low BP Time Seen by Provider: 09/18/23 12:08 Source: family (mother), RN notes reviewed and old records reviewed Mode of arrival: ambulatory Limitations: other (poor historian) History of Present Illness HPI Narrative: This is a 27 year old male with history of adrenal insufficiency, CVID who presents for evaluation of intermittent fever and weakness. His mother is at bedside to given history. She states patient started running a fever last Monday. He had a fever on Monday and but he did nor run a fever on Monday and Monday. His fever returned yesterday and she reports fever of 102.5 F. He has not been febrile today. They have been giving him his stress dose of steroids for the last 2 days. She states they were getting outpatien labs and chest xray today, and he was not stand up in radiology so she brought him to ER for concern of hypotension. SHe reports he has been eating and drinking like normal. He has not been having nausea, vomiting, diarrhea, abdominal pain, chest pain or shortness of breah. Context: recent antibiotic use and on immunosuppressant(s) Related Data Home Medications Medication Instructions Recorded Confirmed cholecalciferol (vitamin D3) 125 125 mcg PO EVERY OTHER DAY 10/08/21 10/15/22 mcg (5,000 unit) tablet (Vitamin D3) folic acid 800 mcg tablet 0.8 mg PO QACLUNCH 10/08/21 10/15/22 multivitamin with minerals-folic 1 tablet PO QACLUNCH 10/08/21 10/15/22 acid 0.4 mg tablet prasterone (dhea) 25 mg tablet 25 mg PO QACLUNCH 10/08/21 10/15/22 (DHEA) melatonin 3 mg tablet 5 mg PO HS PRN Insomnia 10/15/22 10/15/22 Allergies Allergy/AdvReac Type Severity Reaction Status Date / Time gluten Allergy Diarrhea Verified 09/18/23 11:57 Review of Systems Review of Systems: ROS unobtainable: Yes unobtainable due to medical condition PMFSH Past Medical History Medical History (Updated 09/18/23 @ 15:47 by Nava Gonzales MD) Acquired hypothyroidism Adrenal insufficiency Anemia Autism spectrum disorder Chronic interstitial lung disease Common variable immunodeficiency Down syndrome Rios syndrome Fracture of distal end of left fibula Heart murmur Hypothyroidism, unspecified Incomplete rotation intestine Nystagmus Surgical History Surgical History History of ventricular septal defect repair Hx of splenectomy Post-splenectomy Family History Family History Father Prostate carcinoma Social History Social History Smoking status: Never smoker Second hand tobacco smoke exposure: No Alcohol intake: never Substance use: never Additional living arrangements comments: He lives at home with his parents. He is dependent for care. Additional occupation/education comments: Disabled Gender identity (if verbalized by the patient): Male Spiritual care concerns: No Exam Const: General: no acute distress, alert and ill appearing HENMT: Head: normal to inspection Ears: external ears normal and TM abnormal erythematous and with fluid behind the TM Mouth: Yes lip normal, Yes moist mucous membranes and Yes Abnormal oral and palatal mucosa present white patches Throat: uvula midline Other: thrush present Eyes: EOM: EOMs intact bilaterally Neck: Neck: normal visual inspection Chest: Chest palpation & inspection: normal inspection of the chest Resp: Effort & Inspection: normal respiratory effort Auscultation: clear to auscultation bilaterally Cardio: Rate: regular rate Rhythm: regular rhythm Heart sounds: no murmurs GI: GI Palp: Yes Soft to palpation, No Tenderness to palpation present (GI), No Guarding due to palpation present (GI) and No Rigid due to palpation Auscultation: normal bowel sounds Skin:
--- NOTE | 2023-09-18 13:44 | PC.NURSE ---
Pt resting with occasional loose congested cough. Tolerating pop cycle. IV fluid bolus infusing without difficulty.
[2023-09-18 13:56] LABS: Lactic Acid Reflex 0.7 mmol/L (0.7-2.0)
== END 2023-09-18 15:56 | disposition home or self-care (01) ==
PROVIDERS: Emergency Provider General Practice; PCP Pediatrics
DX: E86.0 Dehydration (principal); R50.9 Fever, unspecified; H66.90 Otitis media, unspecified, unspecified ear; B37.0 Candidal stomatitis; E03.9 Hypothyroidism, unspecified; F84.0 Autistic disorder; Q90.9 Down syndrome, unspecified
CPT/HCPCS: 36415; 71046; 74177; 80053; 82728; 82784; 83010; 83605; 83615; 84443; 85025; 85046; 85652; 86617; 86880; 87040; 87077; 87186; 96360; 96361; 99284; J7030; Q9967

== ENCOUNTER 2023-09-19 11:24 | Inpatient (IN) | payer BC, MEDICAID, SELFPAY ==
[2023-09-19] VITALS (28 sets, daily range): BP systolic 94–127; BP diastolic 48–70; PULSE 51–78; RESP 14–29; TEMP 36.7–37.6; O2SAT 94–99
--- NOTE | ~2023-09-19 | US_ITS ---
EXAMINATION: US venous doppler [facility] DATE: 09/23/2023 13:39 INDICATION: Lower limb deep vein thrombosis. TECHNIQUE: Grayscale ultrasound images without and with compression and Doppler ultrasound images of the bilateral lower extremity veins were obtained. COMPARISON: Ultrasound 10/23/2021 FINDINGS: The visualized portions of right common femoral vein, profunda (deep) femoral vein, femoral vein, pop liteal vein, peroneal veins, posterior tibial veins, and greater saphenous vein outflow are patent. T here is a mildly enlarged right inguinal lymph node. The visualized portions of left common femoral vein, profunda femoral vein, femoral vein, popliteal v ein, peroneal veins, posterior tibial veins, and greater saphenous vein outflow are patent. IMPRESSION: 1. No deep venous thrombosis. 2. Mildly enlarged right inguinal lymph node, likely reactive. Reviewed, dictated and finalized at location E.
--- NOTE | ~2023-09-19 | US_ITS ---
EXAMINATION: US abdomen complete DATE: 09/21/2023 08:59 INDICATION: Bacteremia. TECHNIQUE: Multiple grayscale and Doppler ultrasound images of the abdomen were obtained. COMPARISON: CT abdomen and pelvis 09/18/2023 FINDINGS: Abdominal aorta is obscured by bowel gas. Inferior vena cava is normal. The visualized port ions of the head of the pancreas are normal. The liver is normal without focal lesion. There is leana l flow in main portal vein. The gallbladder is normal in size. No gallstones or gallbladder wall thic kening. The common duct is normal and measures 4 mm. The kidneys are normal in size. The spleen is ab sent. The bladder is normal. IMPRESSION: 1. Normal complete abdomen ultrasound status post splenectomy. Reviewed, dictated and finalized at location A.
--- NOTE | ~2023-09-19 | MR_ITS ---
EXAMINATION: MR thoracic spine wo/w con DATE: 09/22/2023 12:06 INDICATION: Back pain. Bacteremia. TECHNIQUE: Magnetic resonance imaging (MRI) of the thoracic spine was performed without intravenous c ontrast. The patient was unable to continue for contrast administration. COMPARISON: None FINDINGS: There is 9 degrees levocurvature of upper thoracic spine. Vertebral body heights are normal . There are Schmorl's nodes at multiple levels. Intervertebral disc heights are normal. The discs do not extend beyond the endplate margins. The facet joints are normal. No neural foraminal stenosis or central canal stenosis. The spinal cord signal intensity is normal. IMPRESSION: 1. No etiology for back pain. Reviewed, dictated and finalized at location A.
--- NOTE | ~2023-09-19 | XR_ITS ---
EXAMINATION: XR chest 2V DATE: 09/19/2023 13:20 INDICATION: Sepsis. Left lower lobe pneumonia. TECHNIQUE: Frontal and lateral views of the chest were obtained. COMPARISON: Chest 2 views 09/18/2023, CT abdomen and pelvis 09/18/2023 FINDINGS: There are mild airspace opacities in left lower lung zone. No pleural effusion or pneumotho rax. The heart size is normal. Small median sternotomy wires are noted. IMPRESSION: 1. Stable mild airspace opacities in left lower lung zone, consistent with atelectasis/scarring versu s pneumonia. Reviewed, dictated and finalized at location E. IMPRESSION: 1. Stable mild airspace opacities in left lower lung zone, consistent with atel ectasis/scarring versus pneumonia.
--- NOTE | ~2023-09-19 | MR_ITS ---
Procedure: MR thoracic spine wo/w con Ordering provider: Augusto Vail MD History: . bacteremia . Comparison: None. Technique: MRI thoracic spine with and without contrast. A 12 mL MultiHance was given. FINDINGS: SPINAL CORD: Normal. No abnormal enhancement of the spinal cord or spinal canal. VERTEBRAL BODIES: Normal height and alignment. No compression fracture. Normal marrow signal. No abno rmal marrow enhancement. DISK SPACES: Normal. STENOSIS: None. PARASPINOUS SOFT TISSUES: Normal. No abnormal enhancement of the paraspinous soft tissues. IMPRESSION: No compression fracture or significant stenosis of the thoracic spine. No abnormal enhancement. Reviewed, dictated and finalized at location A. IMPRESSION: No compression fracture or significant stenosis of the thoracic spine. No abno rmal enhancement.
--- NOTE | ~2023-09-19 | CT_ITS ---
EXAMINATION: CT chest abdomen pelvis w con DATE: 09/24/2023 16:16 INDICATION: Bacteremia. TECHNIQUE: Computed tomography (CT) of the chest, abdomen, and pelvis was performed with 100 mL Omnip aque 350 intravenous contrast. Automated exposure control and iterative reconstruction technique were employed. The dose-length product was 502.11 mGy-cm. COMPARISON: CT 10/08/2021, 09/18/2023 FINDINGS: CHEST CT: There is mild emphysema. There is mild scarring at the lung apices. There are chronic mild groundglas s opacities in the lungs in a perihilar distribution. There are centrilobular groundglass opacities i n left lower lobe. There is mild bronchiectasis in the inferior lungs. No pleural effusion. The heart size is normal. No pericardial effusion. There is mild mediastinal, bilateral hilar, and bilateral a xillary lymphadenopathy. For example, a right axillary node measures 3.3 x 1.7 cm. ABDOMEN/PELVIS CT: The liver and gallbladder are normal. There is chronic severe distention of the first portion of the duodenum. The pancreas, adrenal glands, and kidneys are normal. The spleen is absent. Bowel malrotati on is noted. The appendix is not visualized. There is mild right inguinal, left external iliac, right common iliac, gastrohepatic lymphadenopathy, and periportal lymphadenopathy. There is no free intrap eritoneal fluid. There is mild lumbar spondylosis. IMPRESSION: 1. Centrilobular groundglass opacities in left lower lobe, consistent with inflammation/infection. 2. Mild emphysema and mild inferior lung bronchiectasis, which may be secondary to repeated infection s. 3. Chronic severe enlargement of the first portion of the duodenum suspicious for duodenal web or robert nosis. 4. Chronic mild lymphadenopathy in the chest, abdomen, and pelvis with improvement from 10/08/21, which may be reactive. Reviewed, dictated and finalized at location E. IMPRESSION: 1. Centrilobular groundglass opacities in left lower lobe, consistent with infl ammation/infection. 2. Mild emphysema and mild inferior lung bronchiectasis, which may be secondary to repeated infections. 3. Chronic severe enlargement of the first portion of the duodenum suspicious f or duodenal web or stenosis. 4. Chronic mild lymphadenopathy in the chest, abdomen, and pelvis with improvem ent from 10/08/21, which may be reactive.
--- NOTE | ~2023-09-19 | MR_ITS ---
Procedure: MR lumbar spine wo/w con Ordering provider: Augusto Vail MD History:27 years Male with . bacteremia . Comparison: None. Technique: MRI lumbar spine with and without contrast. 10 mL MultiHance were given. FINDINGS: CONUS MEDULLARIS: Normal in position and appearance with no abnormal enhancement. The conus ends at t he level of T12-L1. LUMBAR VERTEBRAL BODIES: Normal height and alignment. no compression fracture. Normal marrow signal. No abnormal marrow enhancement. DISK SPACES: Degenerative disc disease seen at the level of L1-L2. T12-L1: No stenosis. L1-L2: No stenosis. L2-L3: No stenosis. L3-L4: No stenosis. L4-L5: No stenosis. L5-S1: No stenosis. PARASPINOUS SOFT TISSUES: Normal. No abnormal paraspinous enhancement. IMPRESSION: 1. No acute osseous abnormality. 2. No abnormal enhancement. Reviewed, dictated and finalized at location A.
--- NOTE | ~2023-09-19 | XR_ITS ---
EXAMINATION: XR barium swallow modified DATE: 09/21/2023 11:44 INDICATION: Pneumonia. TECHNIQUE: The patient was given barium-containing material of multiple consistencies to swallow by t he speech pathologist while I performed fluoroscopy. Fluoroscopy exposure time was 1.0 minutes. The n umber of fluoroscopy images saved to the PACS was 1. Dose-area product was 0.524 Gy-cm^2. FINDINGS: There is reduced laryngeal elevation. There is laryngeal penetration with uncontrolled thin liquids v ia straw. IMPRESSION: 1. Laryngeal penetration with uncontrolled thin liquids via straw. 2. Please refer to the speech therapy report for recommendations. Reviewed, dictated and finalized at location A.
--- NOTE | ~2023-09-19 | XR_ITS ---
XR chest 1V portable DATE: 09/23/2023 07:13 INDICATION: Bacteremia TECHNIQUE: Portable upright AP chest on 09/23/2023 at 0707 hours COMPARISON: AP and lateral chest FINDINGS: Sternal wire sutures. Heart size is within normal range. Infiltrate or atelectasis is suggested in the left retrocardiac area, left lower lobe and medial basi lar right lower lobe.. No pulmonary infiltrate or consolidation, pleural effusion or pulmonary vascular congestion or pneumo thorax is noted otherwise. Osteopenia. IMPRESSION: Bilateral lower lobe infiltrate and/or atelectasis Reviewed, dictated and finalized at location A.
--- NOTE | 2023-09-19 12:08 | ED.RECABL ---
HPI - Recheck/Abnormal Lab/Rx General Chief Complaint: Recheck/Abnormal Lab/Rx <BESS Ly Last Filed: 09/19/23 19:07> Stated Complaint: + blood cultures <BESS Ly Last Filed: 09/19/23 19:07> Time Seen by Provider: 09/19/23 11:55 <BESS Ly Last Filed: 09/19/23 19:07> Source: patient, family and old records reviewed <BESS Ly Last Filed: 09/19/23 19:07> Mode of arrival: ambulatory <BESS Ly Last Filed: 09/19/23 19:07> Limitations: clinical condition <BESS Ly Last Filed: 09/19/23 19:07> History of Present Illness HPI narrative: Patient is a 27 y/o male, with PMH of Down Syndrome, CVI, autoimmune hemolytic anemia, ITP, s/p splenectomy, adrenal insufficiency, who presents to the ED with his mother with report of positive blood cultures. Mother at bedside assisted in providing information. Patient was seen in the ED here yesterday for fevers, weakness, hypotension. Sepsis w/u was obtained. CT imaging showed possible PNA/aspiration. Family was informed of results (father is a local porcelain finisher) and decided against admission at that time. Family was informed of positive blood culture results today, gram negative bacilli. Patient then prompted here for further evaluation. Mother reports patient has not had any further fevers since yesterday. Mother reports patient was complaining of some right lower back pain this morning, however patient denies any pain upon my evaluation. Patient has been on Augmentin for the last few days for a possible ear infection. He has also been receiving pulse dose steroids. <BESS Ly Last Filed: 09/19/23 19:07> Related Data Home Medications: Home Medications Medication Instructions Recorded Confirmed cholecalciferol (vitamin D3) 125 125 mcg PO EVERY OTHER DAY 10/08/21 09/19/23 mcg (5,000 unit) tablet (Vitamin D3) folic acid 800 mcg tablet 0.8 mg PO QACLUNCH 10/08/21 09/19/23 multivitamin with minerals-folic 1 tablet PO QACLUNCH 10/08/21 09/19/23 acid 0.4 mg tablet prasterone (dhea) 25 mg tablet 25 mg PO QACLUNCH 10/08/21 09/19/23 (DHEA) melatonin 3 mg tablet 5 mg PO HS PRN Insomnia 10/15/22 09/19/23 <Cherelle Wang PA-C - Last Filed: 09/19/23 19:07> Allergies/Adverse Reactions: Allergies Allergy/AdvReac Type Severity Reaction Status Date / Time gluten Allergy Diarrhea Verified 09/18/23 11:57 <Cherelle Wang PA-C - Last Filed: 09/19/23 19:07> Review of Systems Review of Systems: CONSTITUTIONAL: See HPI. ENT: Denies rhinorrhea, congestion, sore throat. CARDIOVASCULAR: Denies chest pain, palpitations, or edema. RESPIRATORY: Denies cough or dyspnea. GASTROINTESTINAL: Denies abdominal pain, nausea, vomiting, or diarrhea. GENITOURINARY: Denies dysuria or hematuria. MUSCULOSKELETAL: See HPI. <Cherelle Wang PA-C - Last Filed: 09/19/23 19:07> All systems reviewed & are unremarkable except as noted in HPI and below <Cherelle Wang PA-C - Last Filed: 09/19/23 19:07> PMF Past Medical History Medical History: Medical History Acquired hypothyroidism Adrenal insufficiency Anemia Autism spectrum disorder Chronic interstitial lung disease Common variable immunodeficiency Down syndrome Rios syndrome Fracture of distal end of left fibula Heart murmur Hypothyroidism, unspecified Incomplete rotation intestine Nystagmus <Cherelle Wang PA-C - Last Filed: 09/19/23 19:07> Surgical History Surgical History: Surgical History History of ventricular septal defect repair Hx of splenectomy Post-splenectomy <Cherelle Wang PA-C - Last Filed: 09/19/23 19:07> Family History Family History: Family History (Reviewed 0
[2023-09-19 12:15] LABS: Basophils Absolute Auto 0.1 K/mm3 (0.0-0.1); Basophils Percent Auto 0.8 % (0.2-1.2); Eosinophils Percent Auto 0.1 % (0-4.4); Hematocrit 40.9 % (42.0-52.0); Hemoglobin 14.1 g/dL (14.0-18.0); Immature Granulocyte Absolute 0.19 K/mm3 (0.00-0.031); Immature Granulocyte Percent A 1.2 % (0-0.5); Lymphocytes Absolute Auto 1.31 K/mm3 (0.9-3.2); Lymphocytes Percent Auto 8.3 % (18.3-44.2); Mean Corpuscular HGB Conc 34.5 g/dl (32-36); Mean Corpuscular Hemoglobin 33.2 pg (26-34); Mean Corpuscular Volume 96.2 fl (80-100); Mean Platelet Volume 11.4 fl (7.4-10.4); Monocytes Absolute Auto 0.6 K/mm3 (0.1-0.6); Monocytes Percent Auto 3.6 % (2.6-8.5); Neutrophils Absolute Auto 13.6 K/mm3 (1.3-6.7); Nucleated Red Blood Cells Perc 0.1 % (0.0-0.2); Platelet Count Result 408 k/mm3 (150-375); Red Blood Count 4.25 M/mm3 (4.6-6.20); Red Cell Distribution Width 16.8 % (11.5-14.5); White Blood Count 15.8 K/mm3 (4.5-10.0)
[2023-09-19] MEDS: SODIUM CHLORIDE 0.9% IV 1,000 ML 999 ML IV CONT ×2 (12:16→13:53)
[2023-09-19] MEDS: PIPERACILLIN/TAZ 4.5G/NS 100ML 4.5 GM/100 ML BAG IVPB ×2 (12:17→19:49)
[2023-09-19 12:25] LABS: Prothrombin Time 13.6 Seconds (11.1-14.7)
[2023-09-19 12:26] LABS: Partial Thromboplastin Time 26.3 Seconds (22.3-36.8)
[2023-09-19 12:27] LABS: Appearance Urine Clear (Clear); Bilirubin Urine Negative (Negative); Blood Urine Negative (Negative); Color Urine Yellow (Yellow); Glucose Urine UA Negative (Negative); Ketones Urine Negative (Negative); Leukocyte Esterase Ur Negative LEU/UL (Negative); Nitrate Urine Negative (Negative); Protein Urine Negative (Negative); Specific Grav Ur 1.014 (1.001-1.035); Urobilinogen Urine 0.2 mg/dL (<2.0)
[2023-09-19 12:28] LABS: Lactic Acid Reflex 1.5 mmol/L (0.7-2.0)
[2023-09-19 12:34] LABS: Add Urine Microscopic? NO
[2023-09-19 12:37] LABS: Alanine Aminotransferase 48 U/L (6-50); Albumin Level 3.6 g/dL (3.5-5.1); Alkaline Phosphatase 133 U/L (38-126); Anion Gap 9 mmol/L (4-12); Aspartate Amino Transferase 31 U/L (17-59); Bilirubin,Total 0.5 mg/dL (0.2-1.3); Blood Urea Nitrogen 26 mg/dL (9-20); CRP 7.9 mg/dL (<1.0); Carbon Dioxide 19 mmol/L (22-30); Chloride 111 mmol/L (98-107); Estimated CRCL calculation 103 ml/min; Estimated Glomerular Filt Rate > 60; Glucose 134 mg/dL (65-110); Potassium 4.6 mmol/L (3.4-5.0); Sodium 139 mmol/L (137-145)
[2023-09-19 12:52] LABS: Procalcitonin 0.8 ng/mL
[2023-09-19 13:13] LABS: Influenza A QL RT-PCR Negative (Negative); Influenza B QL RT-PCR Negative (Negative); RSV RNA, RT-PCR Negative (Negative); SARS-CoV-2 RNA PCR Negative (Negative)
[2023-09-19 13:39] LABS: Erythrocyte Sedimentation Rate 86 mm/hr (0-20)
[2023-09-19] MEDS: AZITHROMYCIN 500 MG/NS 250 ML 500 MG/250 ML BAG 250 MG IVPB (13:53)
[2023-09-19] MEDS: ACETAMINOPHEN 500 MG TABLET 1000 MG PO (14:02)
[2023-09-19] MEDS: predniSONE 5 MG TABLET PO (14:08)
--- NOTE | 2023-09-19 18:39 | PM.IMHP ---
H&P: HPI History of Present Illness Date/Time: 09/19/23 19:15 Chief Complaint: Blood cultures. Narrative: This is a 27-year-old male with history of Down syndrome, autism, autoimmune hemolytic anemia, thrombocytopenia, deep venous thrombosis, common variable immunodeficiency, central adrenal insufficiency, hypothyroidism, and VSD status post repair presented to the emergency department for evaluation after blood cultures obtained yesterday came back growing Gram-negative bacilli in both aerobic and anaerobic bottles in both sets of cultures. The patient can answer some questions however a bulk of the following history is obtained from his parents. He has been running an intermittent fever since last Monday with a T-max of 102.5? F. His blood pressures have also been running soft and he received 2 stress doses of steroids according to his father who is an automatic door mechanic. Yesterday afternoon an outpatient chest x-ray was ordered and the patient was extremely weak and could barely stand so he was brought to the ED. CT of the abdomen and pelvis at that time showed findings suggestive of left lower lobe aspiration or pneumonia and minimal left hydronephrosis without evident obstructing stone or mass. He received 2 L of normal saline with improvement his blood pressures and with shared medical decision making, it was decided that the patient was to be discharged home under the care of his parents with close monitoring. Today his blood cultures came back positive and he was brought back in for evaluation. At the time my evaluation the patient is resting comfortably. He tells me that he is hungry. He does not voice any complaints and he specifically denies headache chest pain, shortness of breath, abdominal pain, back pain, and nausea. In the ED: Blood pressures were as low as 89/48 but have responded nicely to IV fluids. He has been afebrile since arrival. Labs were significant for WBC count of 15.8, hemoglobin 14.1, hematocrit 40.9%, platelet 408, BUN 26, lactic acid 1.5, CRP 7.9, procalcitonin 0.8. Urinalysis was unremarkable. He tested negative for influenza, RSV, and COVID. Chest x-ray shows stable mild airspace opacities in the left lower lung zone. He was started on Zosyn and azithromycin and is being admitted in this setting for further treatment and close monitoring. Review of Systems Review of Systems: 12 systems were reviewed and are negative except for as per HPI. FOR[facility]LY [facility] Past Medical History Medical History Acquired hypothyroidism Adrenal insufficiency Anemia Autism spectrum disorder Chronic interstitial lung disease Common variable immunodeficiency Down syndrome Rios syndrome Fracture of distal end of left fibula Heart murmur Hypothyroidism, unspecified Incomplete rotation intestine Nystagmus Surgical History Surgical History History of ventricular septal defect repair Hx of splenectomy Post-splenectomy Family History Family History Father Prostate carcinoma Social History Social History (Updated 09/19/23 @ 22:54 by Arlet Richardson PA-C) Social History: Surrogate medical decision maker: Stefania Viera, parents. Code status: Full code. Smoking status: Never smoker Second hand tobacco smoke exposure: No Alcohol intake: never Substance use: never Do You Feel Safe in your Home?: Yes Lack of Transportation: No Lack of Food: Never True Current Housing: I Have Housing Concerned About Future Housing: No Difficulty Paying Gas/Electric Bills: No Difficulty Paying for Meds: No Currently Unemployed: No Education: Don't Know Difficulty w/ Childcare or Family Care: No Additional living arrangements comments: He lives at home with his parents. He is dependent for care. Additional occupation/education comments: Disabled
--- NOTE | 2023-09-19 19:34 | PC.NURSE ---
Patient parent request to temporarily hold off on maintenance fluids at this time.
--- NOTE | 2023-09-19 21:19 | ADMGEN ---
This patient, Yoav Viera, was admitted to [facility] Surg Room 332-02. Patient/family oriented to hospital policies and general routines including ID bracelet, bed and alarms, visiting hours, pain management, procedures, bathroom and other care routines, personal items, smoking policy, room service/diet, and visiting hours. Information on how to activate the Rapid Response Team has been discussed. Patient/Family are encouraged to report perceived risks to care and to ask questions if they do not understand what they are told or what they should do.
[2023-09-20] VITALS (10 sets, daily range): BP systolic 98–119; BP diastolic 54–72; PULSE 55–85; RESP 16–18; TEMP 36.1–36.9; O2SAT 93–97
[2023-09-20] MEDS: PIPERACILLIN/TAZ 4.5G/NS 100ML 4.5 GM/100 ML BAG IVPB ×4 (01:41→20:27)
[2023-09-20] MEDS: LEVOTHYROXINE SODIUM 112 MCG TABLET PO (06:40)
[2023-09-20] MEDS: predniSONE 10 MG TABLET PO (06:40)
[2023-09-20 06:45] LABS: MRSA (PCR) NOT DETECTED (NOT DETECTE)
[2023-09-20 07:12] LABS: Basophils Absolute Auto 0.1 K/mm3 (0.0-0.1); Basophils Percent Auto 1.1 % (0.2-1.2); Eosinophils Absolute Auto 0.1 K/mm3 (0-0.3); Eosinophils Percent Auto 0.9 % (0-4.4); Hematocrit 39.3 % (42.0-52.0); Hemoglobin 13.5 g/dL (14.0-18.0); Immature Granulocyte Absolute 0.16 K/mm3 (0.00-0.031); Immature Granulocyte Percent A 1.7 % (0-0.5); Lymphocytes Absolute Auto 2.49 K/mm3 (0.9-3.2); Lymphocytes Percent Auto 26.2 % (18.3-44.2); Mean Corpuscular HGB Conc 34.4 g/dl (32-36); Mean Corpuscular Volume 96.1 fl (80-100); Monocytes Absolute Auto 1.1 K/mm3 (0.1-0.6); Monocytes Percent Auto 11.8 % (2.6-8.5); Neutrophils Absolute Auto 5.6 K/mm3 (1.3-6.7); Neutrophils Percent Auto 58.3 % (45.5-73.1); Nucleated Red Blood Cells Perc 0.4 % (0.0-0.2); Platelet Count Result 381 k/mm3 (150-375); Red Blood Count 4.09 M/mm3 (4.6-6.20); Red Cell Distribution Width 16.9 % (11.5-14.5); White Blood Count 9.5 K/mm3 (4.5-10.0)
[2023-09-20 07:23] LABS: Alanine Aminotransferase 38 U/L (6-50); Albumin Level 3.3 g/dL (3.5-5.1); Alkaline Phosphatase 122 U/L (38-126); Anion Gap 6 mmol/L (4-12); Aspartate Amino Transferase 26 U/L (17-59); Bilirubin,Total 0.5 mg/dL (0.2-1.3); Blood Urea Nitrogen 17 mg/dL (9-20); Calcium 8.9 mg/dL (8.4-10.2); Carbon Dioxide 21 mmol/L (22-30); Chloride 113 mmol/L (98-107); Estimated CRCL calculation 103 ml/min; Estimated Glomerular Filt Rate > 60; Glucose 88 mg/dL (65-110); Potassium 4.1 mmol/L (3.4-5.0); Sodium 140 mmol/L (137-145)
--- NOTE | 2023-09-20 09:13 | PC.NURSE ---
Went into the patients room around 0830 to give morning medication. Patient was sleeping and mother requested I don't wake the patient and come back to give his medication in about an hour. Will try again around 0930
[2023-09-20] MEDS: guaiFENesin 12 HR 600 MG TABCR PO ×2 (09:30→20:26)
[2023-09-20] MEDS: CHOLECALCIFEROL 5,000 UNITS TABLET 5000 UNITS PO (09:30)
[2023-09-20] MEDS: SERTRALINE HCL 50 MG TABLET PO (09:30)
[2023-09-20] MEDS: FLUTICASONE PROP 110 MCG INHALER 12 GM (*SP) 2 PUFF INHALATION ×2 (10:10→19:43)
--- NOTE | 2023-09-20 12:25 | PM.IMPN ---
Progress Note: A&P Assessment and Plan (1) Sepsis: Qualifiers: Sepsis acute organ dysfunction status: unspecified Sepsis type: sepsis due to unspecified organism Qualified Code(s): A41.9 - Sepsis, unspecified organism Code(s): A41.9 - Sepsis, unspecified organism Status: Acute Assessment and Plan: Patient with sepsis present on admission. He had fever and outpatient CXR on 09/17 was clear. He presented to ED later that day since not improving. UA not done. WBC was 23.8K (but was on stress dose steroids). He was already on Augmentin. CT A/P showing new subtle groundglass nodule LLL concerning for PNA. Decrease in the size of the diffuse adenopathy. Minimal left hydronephrosis. BCx drawn. The patient brought back to the ED for evaluation of positive blood cultures which were drawn on 09/18/23. Repeat CXR showing stable mild airspace opacities in the left lower lobe. UA on 09/18 was clear. BCx 09/17: Citrobacter braakii BCx 09/18: GNB in both sets. WBC normal now. No documented fevers here. BP stable. Source felt to be PNA but not a common respiratory pathogen. Continue Zosyn for now and narrow abx coverage when able. Continue Azithro to complete a 5 day course for atypicals Check RUQ US to assess GB. Check renal US given the hydronephrosis despite the clear UA. Check MBS given the concern for aspiration (2) Gram-negative bacteremia: Code(s): R78.81 - Bacteremia Status: Acute Assessment and Plan: As above. Repeat BCx tomorrow. (3) Left lower lobe pneumonia: Code(s): J18.9 - Pneumonia, unspecified organism Status: Acute Assessment and Plan: As above (4) Adrenal insufficiency: Code(s): E27.40 - Unspecified adrenocortical insufficiency Status: Acute Assessment and Plan: Blood pressures was soft but was fluid responsive. He received nearly 4 L of normal saline in the last 24 hours so we held further IV fluids as he is tolerating p.o. as BP stable. Continue stress dose steroids at 10 mg per day but consider Solu-Cortef if he his BP becomes soft. 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 LDH 67 and absolute Retic count okay. Follow (6) Common variable immunodeficiency: Code(s): D83.9 - Common variable immunodeficiency, unspecified Status: Acute Assessment and Plan: Patient with hx of CVID. Also with splenectomy. Check IgG levels. (7) Hypothyroidism: Code(s): E03.9 - Hypothyroidism, unspecified Status: Acute Assessment and Plan: TSH normal. Continue levothyroxine. Plan Code status - Full DVT prophylaxis - SCDs Subjective Date/time seen: 09/20/23 12:25 Interval history: 27yo male with Down syndrome, autism, autoimmune hemolytic anemia, thrombocytopenia, hx of DVT, common variable immunodeficiency, central adrenal insufficiency, hypothyroidism, and VSD status post repair here for evaluation after blood cultures obtained yesterday came back growing Gram-negative bacilli in both aerobic and anaerobic bottles in both sets of cultures. Assuming care. Chart reviewed. Patient unable to provide hx. Family at bedside. Patient has a hx of dysphagia. Review of Systems Review of Systems: ROS unobtainable: Yes unobtainable due to mental status Exam Narrative: AF 97.7 112/72 57 16 97% ra Gen - NARD, nontoxic Chest - scattered inspiratory rhonchi with faint expiratory wheezing. CV - RRR S1/S2. Tele showing occasional bradycardia with HR>40. Abd - Soft, NT/ND, Positive BS Ext - No pedal edema Neuro - Awake and alert Psych - Nml mood and affect Skin - Warm and dry. facial features c/w Downs Objective Data Vital Signs Vital Signs: Vital Signs - 24 hr 09/19/23 12:59 09/19/23 14:02 09/19/23
[2023-09-20 12:49] LABS: Immature Reticulocyte Fraction 23.6 % (3.0-15.9); Reticulocyte Hemoglobin Conten 33.5 pg (28.2-36.6); Reticulocyte Percent 2.02 % (0.7-4.3); Reticulocytes Absolute 0.08 10^6/uL (0.02-0.10)
[2023-09-20] MEDS: THERAPEUTIC MULTIVITAMINS/MINERALS TAB (*BKC) 1 TABLET PO (12:54)
[2023-09-20] MEDS: AZITHROMYCIN 250 MG TABLET PO (12:54)
[2023-09-20] MEDS: FOLIC ACID 0.4 MG TABLET 0.8 MG PO (12:54)
[2023-09-20 13:21] LABS: Lactate Dehydrogenase 67 U/L (120-246)
--- NOTE | 2023-09-20 16:38 | PCSTNOTE ---
Please refer to the Bedside Swallow Evaluation in the EMR. Please note, silent aspiration cannot be ruled out at bedside.
[2023-09-21] VITALS (9 sets, daily range): BP systolic 98–105; BP diastolic 62–75; PULSE 54–88; RESP 13–18; TEMP 36.1–36.6; O2SAT 93–97
[2023-09-21] MEDS: PIPERACILLIN/TAZ 4.5G/NS 100ML 4.5 GM/100 ML BAG IVPB ×4 (01:13→20:00)
--- NOTE | 2023-09-21 05:41 | PC.NURSE ---
family refused hourly rounding
[2023-09-21] MEDS: LEVOTHYROXINE SODIUM 112 MCG TABLET PO (06:39)
[2023-09-21] MEDS: predniSONE 10 MG TABLET PO (06:39)
[2023-09-21 07:19] LABS: Basophils Absolute Auto 0.2 K/mm3 (0.0-0.1); Basophils Percent Auto 2.3 % (0.2-1.2); Eosinophils Absolute Auto 0.1 K/mm3 (0-0.3); Eosinophils Percent Auto 1.1 % (0-4.4); Hematocrit 43.1 % (42.0-52.0); Hemoglobin 14.4 g/dL (14.0-18.0); Immature Granulocyte Absolute 0.37 K/mm3 (0.00-0.031); Immature Granulocyte Percent A 4.4 % (0-0.5); Immature Reticulocyte Fraction 20.3 % (3.0-15.9); Lymphocytes Absolute Auto 1.73 K/mm3 (0.9-3.2); Lymphocytes Percent Auto 20.7 % (18.3-44.2); Mean Corpuscular HGB Conc 33.4 g/dl (32-36); Mean Corpuscular Hemoglobin 32.5 pg (26-34); Mean Corpuscular Volume 97.3 fl (80-100); Mean Platelet Volume 11.1 fl (7.4-10.4); Monocytes Absolute Auto 1.1 K/mm3 (0.1-0.6); Neutrophils Absolute Auto 4.9 K/mm3 (1.3-6.7); Neutrophils Percent Auto 58.5 % (45.5-73.1); Nucleated Red Blood Cells Perc 0.5 % (0.0-0.2); Platelet Count Result 469 k/mm3 (150-375); Red Blood Count 4.43 M/mm3 (4.6-6.20); Red Cell Distribution Width 16.9 % (11.5-14.5); Reticulocyte Hemoglobin Conten 34.1 pg (28.2-36.6); Reticulocyte Percent 2.13 % (0.7-4.3); Reticulocytes Absolute 0.09 10^6/uL (0.02-0.10); White Blood Count 8.4 K/mm3 (4.5-10.0)
[2023-09-21 07:33] LABS: Alanine Aminotransferase 34 U/L (6-50); Albumin Level 3.5 g/dL (3.5-5.1); Alkaline Phosphatase 112 U/L (38-126); Anion Gap 8 mmol/L (4-12); Aspartate Amino Transferase 24 U/L (17-59); Bilirubin,Total 0.4 mg/dL (0.2-1.3); Blood Urea Nitrogen 21 mg/dL (9-20); CRP 4.1 mg/dL (<1.0); Calcium 9.3 mg/dL (8.4-10.2); Carbon Dioxide 23 mmol/L (22-30); Chloride 109 mmol/L (98-107); Estimated CRCL calculation 92 ml/min; Estimated Glomerular Filt Rate > 60; Glucose 84 mg/dL (65-110); Lactate Dehydrogenase 75 U/L (120-246); Magnesium 1.9 mg/dL (1.6-2.3); Phosphorus 4.7 mg/dL (2.5-4.5); Potassium 3.9 mmol/L (3.4-5.0); Sodium 140 mmol/L (137-145)
[2023-09-21 08:04] LABS: Immunoglobulin G 1173 mg/dL (700-1600)
[2023-09-21] MEDS: FLUTICASONE PROP 110 MCG INHALER 12 GM (*SP) 2 PUFF INHALATION (08:04)
[2023-09-21 08:09] LABS: Immunoglobulin A < 40 mg/dL (70-400); Immunoglobulin M 557 mg/dL (40-230)
[2023-09-21] MEDS: SERTRALINE HCL 50 MG TABLET PO (09:28)
[2023-09-21] MEDS: BISACODYL 5 MG TABLET EC PO (09:28)
[2023-09-21] MEDS: guaiFENesin 12 HR 600 MG TABCR PO ×2 (09:30→20:00)
[2023-09-21] MEDS: THERAPEUTIC MULTIVITAMINS/MINERALS TAB (*BKC) 1 TABLET PO (12:23)
[2023-09-21] MEDS: FOLIC ACID 0.4 MG TABLET 0.8 MG PO (12:23)
--- NOTE | 2023-09-21 13:48 | PCSTNOTE ---
Please refer to the Modified Barium Swallow Evaluation in the EMR.
[2023-09-21] MEDS: AZITHROMYCIN 250 MG TABLET PO (14:31)
--- NOTE | 2023-09-21 17:20 | PM.IMPN ---
Progress Note: A&P Assessment and Plan (1) Sepsis: Qualifiers: Sepsis acute organ dysfunction status: unspecified Sepsis type: sepsis due to unspecified organism Qualified Code(s): A41.9 - Sepsis, unspecified organism Code(s): A41.9 - Sepsis, unspecified organism Status: Acute Assessment and Plan: Patient with sepsis present on admission. He had fever and outpatient CXR on 09/17 was clear. He presented to ED later that day since not improving. UA not done. WBC was 23.8K (but was on stress dose steroids). He was already on Augmentin. CT A/P showing new subtle groundglass nodule LLL concerning for PNA. Decrease in the size of the diffuse adenopathy. Minimal left hydronephrosis. BCx drawn. The patient brought back to the ED for evaluation of positive blood cultures which were drawn on 09/18/23. Repeat CXR showing stable mild airspace opacities in the left lower lobe. UA on 09/18 was clear. BCx 09/17: Citrobacter braakii resistant to Augmentin and cefazolin. BCx 09/18: Citrobacter braakii WBC normal now. No documented fevers here. CRP down to 4.1 BP stable. Source felt to be PNA but not a common respiratory pathogen. Abd US showing no acute findings. Speech therapy results noted and diet adjusted. Continue Zosyn. Continue Azithro to complete a 5 day course for atypicals (2) Gram-negative bacteremia: Code(s): R78.81 - Bacteremia Status: Acute Assessment and Plan: As above. Repeat BCx today (3) Left lower lobe pneumonia: Code(s): J18.9 - Pneumonia, unspecified organism Status: Acute Assessment and Plan: As above (4) Adrenal insufficiency: Code(s): E27.40 - Unspecified adrenocortical insufficiency Status: Acute Assessment and Plan: Blood pressures was soft but was fluid responsive. He received nearly 4 L of normal saline in the last 24 hours priro to admission so we held further IV fluids as he is tolerating p.o. and BP stable. 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 LFTs normal. Nickie positive but father spoke with sparker and patcher at [facility] who was not concerned with the positive nickie. IgG and IgM okay. IgA low. Close monitoring given his history of thrombocytopenia and hemolytic anemia with infections. Follow (6) Common variable immunodeficiency: Code(s): D83.9 - Common variable immunodeficiency, unspecified Status: Acute Assessment and Plan: Patient with hx of CVID. Also with splenectomy. Ig levels as above. (7) Hypothyroidism: Code(s): E03.9 - Hypothyroidism, unspecified Status: Acute Assessment and Plan: TSH normal. Continue levothyroxine. Plan Code status - Full DVT prophylaxis - SCDs Subjective Date/time seen: 09/21/23 17:20 Interval history: 27yo male with Down syndrome, autism, autoimmune hemolytic anemia, thrombocytopenia, hx of DVT, common variable immunodeficiency, central adrenal insufficiency, hypothyroidism, and VSD status post repair here for evaluation after blood cultures obtained yesterday came back growing Gram-negative bacilli in both aerobic and anaerobic bottles in both sets of cultures. Patient unable to provide hx. Mom has noticed patient complaining of back pain when he gets up out of bed but otherwise no complaints. He has been up walking in the halls. +BMs. Review of Systems Review of Systems: ROS unobtainable: Yes unobtainable due to mental status Exam Narrative: AF 97.9 105/75 64 18 97% ra Gen - NARD, nontoxic sitting up in chair feeding himself Chest - bibasilar inspiratory rhonchi, nml RR CV - RRR S1/S2. Tele showing PVCs Abd - Soft, NT/ND, Positive BS Ext - No pedal edema Neuro - Awake and alert Psych - Nml mood and affect Skin - Warm and dry. facial features c/w Do
[2023-09-22] VITALS (7 sets, daily range): BP systolic 102–122; BP diastolic 60–70; PULSE 65–110; RESP 14–20; TEMP 36.3–37.3; O2SAT 93–97
[2023-09-22] MEDS: PIPERACILLIN/TAZ 4.5G/NS 100ML 4.5 GM/100 ML BAG IVPB ×4 (02:56→19:44)
[2023-09-22] MEDS: LEVOTHYROXINE SODIUM 112 MCG TABLET PO (05:28)
[2023-09-22] MEDS: predniSONE 1 MG TABLET 4 MG PO (05:28)
[2023-09-22] MEDS: predniSONE 5 MG TABLET PO (05:28)
[2023-09-22 06:51] LABS: Basophils Absolute Auto 0.2 K/mm3 (0.0-0.1); Basophils Percent Auto 1.7 % (0.2-1.2); Eosinophils Absolute Auto 0.1 K/mm3 (0-0.3); Eosinophils Percent Auto 0.7 % (0-4.4); Hematocrit 45.8 % (42.0-52.0); Hemoglobin 15.3 g/dL (14.0-18.0); Immature Granulocyte Absolute 0.49 K/mm3 (0.00-0.031); Immature Granulocyte Percent A 5.6 % (0-0.5); Lymphocytes Absolute Auto 1.36 K/mm3 (0.9-3.2); Lymphocytes Percent Auto 15.7 % (18.3-44.2); Mean Corpuscular HGB Conc 33.4 g/dl (32-36); Mean Corpuscular Hemoglobin 32.6 pg (26-34); Mean Corpuscular Volume 97.4 fl (80-100); Mean Platelet Volume 11.1 fl (7.4-10.4); Monocytes Percent Auto 11.1 % (2.6-8.5); Neutrophils Absolute Auto 5.7 K/mm3 (1.3-6.7); Neutrophils Percent Auto 65.2 % (45.5-73.1); Platelet Count Result 495 k/mm3 (150-375); Red Cell Distribution Width 16.8 % (11.5-14.5); White Blood Count 8.7 K/mm3 (4.5-10.0)
[2023-09-22 07:04] LABS: Anion Gap 7 mmol/L (4-12); Blood Urea Nitrogen 27 mg/dL (9-20); Calcium 9.6 mg/dL (8.4-10.2); Carbon Dioxide 23 mmol/L (22-30); Chloride 109 mmol/L (98-107); Estimated CRCL calculation 92 ml/min; Estimated Glomerular Filt Rate > 60; Glucose 89 mg/dL (65-110); Sodium 139 mmol/L (137-145)
[2023-09-22 08:07] LABS: Hypochromasia 1+; Platelet Estimate Increased (Adequate)
[2023-09-22 08:09] LABS: Schistocytes None Seen; Target Cells 2+
[2023-09-22] MEDS: FLUTICASONE PROP 110 MCG INHALER 12 GM (*SP) 2 PUFF INHALATION ×2 (08:22→20:58)
--- NOTE | 2023-09-22 09:03 | PM.IMPN ---
Progress Note: A&P Assessment and Plan (1) Sepsis: Qualifiers: Sepsis acute organ dysfunction status: unspecified Sepsis type: sepsis due to unspecified organism Qualified Code(s): A41.9 - Sepsis, unspecified organism Code(s): A41.9 - Sepsis, unspecified organism Status: Acute Assessment and Plan: Patient with sepsis present on admission. He had fever and outpatient CXR on 09/17 was clear. He presented to ED later that day since not improving. UA not done. WBC was 23.8K (but was on stress dose steroids). He was already on Augmentin. CT A/P showing new subtle groundglass nodule LLL concerning for PNA. Decrease in the size of the diffuse adenopathy. Minimal left hydronephrosis. BCx drawn. The patient brought back to the ED for evaluation of positive blood cultures which were drawn on 09/18/23. Repeat CXR showing stable mild airspace opacities in the left lower lobe. UA on 09/18 was clear. BCx 09/17: Citrobacter braakii resistant to Augmentin and cefazolin. BCx 09/18: Citrobacter braakii Source felt to be PNA but not a common respiratory pathogen but no obvious other source. Abd US showing no acute findings. No hydronephrosis by ultrasound. Speech therapy results noted and diet adjusted. BCx 09/20: Gram negative bacilli in both sets. Unclear why he hasn't cleared. Related to underlying immunodeficiency? Pocket of infection? He looks well. WBC normal now. No documented fevers here. CRP down to 4.1. BP stable. Check MR of T-spine and L-spine to exclude discitis. Consider CT chest/abd/pelvis if MRI negative. Continue Zosyn. Repeat BCx tomorrow (2) Gram-negative bacteremia: Code(s): R78.81 - Bacteremia Status: Acute Assessment and Plan: As above. (3) Left lower lobe pneumonia: Code(s): J18.9 - Pneumonia, unspecified organism Status: Acute Assessment and Plan: As above (4) Adrenal insufficiency: Code(s): E27.40 - Unspecified adrenocortical insufficiency Status: Acute Assessment and Plan: Blood pressures was soft but was fluid responsive. He received nearly 4 L of normal saline in the last 24 hours priro to admission so we held further IV fluids. He is tolerating p.o. and BP stable. 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 LFTs normal. Nickie positive but father spoke with automotive glazier at [facility] who was not concerned with the positive nickie. IgG and IgM okay. IgA low. Close monitoring given his history of thrombocytopenia and hemolytic anemia with infections. Follow (6) Common variable immunodeficiency: Code(s): D83.9 - Common variable immunodeficiency, unspecified Status: Acute Assessment and Plan: Patient with hx of CVID. Also with splenectomy. Ig levels as above. (7) Hypothyroidism: Code(s): E03.9 - Hypothyroidism, unspecified Status: Acute Assessment and Plan: TSH normal. Continue levothyroxine. Plan Code status - Full DVT prophylaxis - SCDs Subjective Date/time seen: 09/22/23 09:03 Interval history: 27yo male with Down syndrome, autism, autoimmune hemolytic anemia, thrombocytopenia, hx of DVT, common variable immunodeficiency, central adrenal insufficiency, hypothyroidism, and VSD status post repair here for evaluation after blood cultures obtained yesterday came back growing Gram-negative bacilli in both aerobic and anaerobic bottles in both sets of cultures. Patient unable to provide hx. Patient still with complaints of back pain when he gets up out of bed but otherwise no complaints. Review of Systems Review of Systems: ROS unobtainable: Yes unobtainable due to mental status Exam Narrative: AF 97.5 102/60 65 14 93% ra Gen - NARD sitting u p in chair feeding himself Chest - few basilar rhonc
[2023-09-22] MEDS: CHOLECALCIFEROL 5,000 UNITS TABLET 5000 UNITS PO (09:23)
[2023-09-22] MEDS: SERTRALINE HCL 50 MG TABLET PO (09:23)
[2023-09-22] MEDS: LORazepam INJ (*CRX) 2 MG/ML VIAL 0.5 MG IV PUSH (11:15)
[2023-09-22] MEDS: AZITHROMYCIN 250 MG TABLET PO (15:33)
[2023-09-22] MEDS: THERAPEUTIC MULTIVITAMINS/MINERALS TAB (*BKC) 1 TABLET PO (15:33)
[2023-09-22] MEDS: FOLIC ACID 0.4 MG TABLET 0.8 MG PO (15:36)
[2023-09-22] MEDS: LORazepam INJ (*CRX) 2 MG/ML VIAL 1 MG IV PUSH (16:42)
[2023-09-22] MEDS: guaiFENesin 12 HR 600 MG TABCR PO (19:44)
--- NOTE | 2023-09-22 21:24 | PC.NURSE ---
Pt currently has an order for telemetry, however his family is declining the use of it at this time.
--- NOTE | 2023-09-22 22:49 | PC.NURSE ---
I have read and reviewed Jennifer Underwood's assessment and agree with all documentation at this time.
--- NOTE | 2023-09-23 | ECHO_ITS ---
Patient Info Name: Yoav Viera Age: 27 years : 1995 Gender: Male Ht: 64 in Wt: 131 lbs BSA: 1.64 m2 HR: 72 bpm BP: 122 / 64 mmHg Heart Rhythm: Sinus Rhythm Technical Quality: Good Exam Date: 09/23/2023 10:00 AM Exam Location: Echo Lab Patient Status: Inpatient Admit Date: 09/19/2023 Staff Ordering Physician: Augusto Vail MD Trim Sawyer: Brennan Hoffman RDCS Attending Provider: Radha Savage MD Exam Type: CA echo doppler color flow Study Info Indications - bacteremia Complete two-dimensional, color flow and Doppler transthoracic echocardiogram is performed. Summary 1. Complete two-dimensional, color flow and Doppler transthoracic echocardiogram is performed. 2. Normal left and right ventricular systolic function and size. 3. No apparent valvular dysfunction or visualized visitation( bacteremic ). 4. Suboptimally visualized aortic valve which by Doppler is functioning normally. Left Ventricle Left ventricular chamber dimension is normal. Left ventricular systolic function is normal, estimated at 60-65%. The left ventricular diastolic function is normal. Right Ventricle Right ventricular chamber dimension is normal. Left Atria Left atrial chamber dimension is normal. Right Atria Right atrial chamber dimension is normal. Aortic Valve The aortic valve is not well visualized. Pulmonic Valve The pulmonic valve is not well visualized. Mitral Valve The mitral valve has normal leaflets. Tricuspid Valve The tricuspid valve leaflets are normal. Pericardium/Pleural The pericardium appears normal. Aorta The aortic root size at the sinus of Valsalva is normal. Left Ventricular Outflow Tract Name Value Normal LVOT 2D LVOT Diameter 2.0 cm LVOT Doppler LVOT Peak Gradient 5 mmHg LVOT Mean Gradient 3 mmHg LVOT VTI 23 cm LVOT VTI/AV VTI Ratio 0.7 LVOT Stroke Volume 68 ml LVOT CO 5.0 l/min LVOT CI 3.1 l/min/m2 Pulmonic Valve Name Value Normal PV Doppler PV Peak Gradient 8 mmHg Mitral Valve Name Value Normal MV Doppler MV Peak Gradient 5 mmHg MV Mean Gradient 2 mmHg MV Decel Stoddard 668 cm/s2 MV PHT 41 ms MV Area (PHT) 5.4 cm2 4.0-5.0 MV Area (Cont Eq VTI) 2.3 cm2 MV Diastolic Function MV E
[2023-09-23] MEDS: PIPERACILLIN/TAZ 4.5G/NS 100ML 4.5 GM/100 ML BAG IVPB ×3 (02:50→13:00)
[2023-09-23] MEDS: predniSONE 1 MG TABLET 4 MG PO (05:38)
[2023-09-23] MEDS: LEVOTHYROXINE SODIUM 112 MCG TABLET PO (05:39)
[2023-09-23] MEDS: predniSONE 5 MG TABLET PO (05:39)
[2023-09-23 05:45] LABS: Hematocrit 41.1 % (42.0-52.0); Hemoglobin 13.4 g/dL (14.0-18.0); Mean Corpuscular HGB Conc 32.6 g/dl (32-36); Mean Corpuscular Hemoglobin 32.8 pg (26-34); Mean Corpuscular Volume 100.5 fl (80-100); Mean Platelet Volume 10.6 fl (7.4-10.4); Platelet Count Result 462 k/mm3 (150-375); Red Blood Count 4.09 M/mm3 (4.6-6.20); Red Cell Distribution Width 17.2 % (11.5-14.5)
[2023-09-23 06:00] VITALS: BP 112/64; PULSE 72; RESP 14; TEMP 36.7; O2SAT 98
[2023-09-23 06:01] LABS: Alanine Aminotransferase 26 U/L (6-50); Albumin Level 3.4 g/dL (3.5-5.1); Alkaline Phosphatase 101 U/L (38-126); Anion Gap 10 mmol/L (4-12); Aspartate Amino Transferase 29 U/L (17-59); Bilirubin,Total 0.8 mg/dL (0.2-1.3); Blood Urea Nitrogen 25 mg/dL (9-20); CRP 2.5 mg/dL (<1.0); Carbon Dioxide 21 mmol/L (22-30); Chloride 109 mmol/L (98-107); Estimated CRCL calculation 84 ml/min; Estimated Glomerular Filt Rate > 60; Glucose 91 mg/dL (65-110); Potassium 4.2 mmol/L (3.4-5.0); Sodium 140 mmol/L (137-145)
[2023-09-23 06:24] LABS: Band Neutrophils Percent 1 % (0-6); Basophils Absolute Manual 0.36 K/mm3 (0.0-0.1); Basophils Percent Manual 3 % (0-1); Eosinophils Absolute Manual 0.12 K/mm3 (0.02-0.50); Eosinophils Percent Manual 1 % (0-4); Lymphocytes Absolute Manual 1.92 K/mm3 (1.1-4.5); Metamyelocytes Percent 6 %; Monocytes Percent Manual 5 % (3-9); Neutrophils Absolute Manual 8.28 K/mm3 (1.3-6.7); Neutrophils Percent Manual 68 % (46-73); Total Cells Counted 100
[2023-09-23 06:25] LABS: Platelet Estimate Increased (Adequate)
[2023-09-23 06:26] LABS: Schistocytes None Seen
[2023-09-23 07:12] LABS: Immature Reticulocyte Fraction 20.6 % (3.0-15.9); Reticulocyte Hemoglobin Conten 36.6 pg (28.2-36.6); Reticulocyte Percent 2.16 % (0.7-4.3); Reticulocytes Absolute 0.09 10^6/uL (0.02-0.10)
[2023-09-23 07:45] LABS: Lactate Dehydrogenase 91 U/L (120-246)
[2023-09-23] MEDS: FLUTICASONE PROP 110 MCG INHALER 12 GM (*SP) 2 PUFF INHALATION ×2 (08:13→19:28)
[2023-09-23] MEDS: guaiFENesin 12 HR 600 MG TABCR PO ×2 (09:01→20:55)
[2023-09-23] MEDS: SERTRALINE HCL 50 MG TABLET PO (09:01)
--- NOTE | 2023-09-23 09:05 | PM.IMPN ---
Progress Note: A&P Assessment and Plan (1) Sepsis: Qualifiers: Sepsis acute organ dysfunction status: unspecified Sepsis type: sepsis due to unspecified organism Qualified Code(s): A41.9 - Sepsis, unspecified organism Code(s): A41.9 - Sepsis, unspecified organism Status: Acute Assessment and Plan: Patient with sepsis present on admission. He had fever and outpatient CXR on 09/17 was clear. He presented to ED later that day since not improving. UA not done. WBC was 23.8K (but was on stress dose steroids). He was already on Augmentin. CT A/P showing new subtle groundglass nodule LLL concerning for PNA. Decrease in the size of the diffuse adenopathy. Minimal left hydronephrosis. BCx drawn. The patient brought back to the ED 09/18 due to positive blood cultures for GNB drawn the day before Repeat CXR showing stable mild airspace opacities in the left lower lobe. UA on 09/18 was clear. Zosyn started 09/18 at noon BCx 09/17: Citrobacter braakii resistant to Augmentin and cefazolin but sensitive to Zosyn. BCx 09/18: Citrobacter braakii Source felt to be PNA but not a common respiratory pathogen but no obvious other source. Abd US showing no acute findings. No hydronephrosis by ultrasound. Speech therapy results noted and diet adjusted. BCx 09/20: Gram negative bacilli in both sets. ID pending. Unclear why he hasn't cleared. Related to underlying immunodeficiency? Pocket of infection? Endocarditis? Repeat BCx drawn too early? (Not a common pathogen to cause these issues). He looks well. No documented fevers here. WBC normalized but higher today at 12K. CRP down to 2.5. BP stable. Given his new onset back pain and persistent bacteremia, MRI of Thoracic and Lumbar performed 09/21 but negative for concerns for infection. CXR today showing left retrocardiac, LLL and RLL infiltrate or atelectasis. No consolidation, pleural effusion or congestion. Check Echo Continue Zosyn. Repeat BCx. If repeat BCx positive, then will check CT Ch/A/P. If negative and Echo normal, then probably related to repeat BCx drawn too early. (2) Gram-negative bacteremia: Code(s): R78.81 - Bacteremia Status: Acute Assessment and Plan: Citrobacter braakii bacteremia. As above. (3) Left lower lobe pneumonia: Code(s): J18.9 - Pneumonia, unspecified organism Status: Acute Assessment and Plan: As above (4) Adrenal insufficiency: Code(s): E27.40 - Unspecified adrenocortical insufficiency Status: Acute Assessment and Plan: Blood pressures was soft in the ED but was fluid responsive. He received nearly 4 L of normal saline in the last 24 hours around the time of admission so we held further IV fluids. He is tolerating p.o. and BP stable. Continue stress dose steroids and begin to wean slowly. 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 LFTs normal. Pedrito positive but father spoke with bridge opener at [facility] who was not concerned with the positive Pedrito. IgG and IgM okay. IgA low. Hgb 13.4 today. LDH and retic count okay. Close monitoring given his history of thrombocytopenia and hemolytic anemia with infections. Follow (6) Common variable immunodeficiency: Code(s): D83.9 - Common variable immunodeficiency, unspecified Status: Acute Assessment and Plan: Patient with hx of CVID. Also with splenectomy. Ig levels as above. (7) Hypothyroidism: Code(s): E03.9 - Hypothyroidism, unspecified Status: Acute Assessment and Plan: TSH normal. Continue levothyroxine. Plan Code status - Full DVT prophylaxis - SCDs were being refused. He does not do well tolerating Lovenox. Check LE venous doppler. Family states he may tolerate Lovenox. Plt count okay Subjective Date/time seen: 09/23/23 09:05 Interval history: 27yo male with Down s
[2023-09-23] MEDS: FOLIC ACID 0.4 MG TABLET 0.8 MG PO (13:00)
[2023-09-23] MEDS: AZITHROMYCIN 250 MG TABLET PO (13:00)
[2023-09-23] MEDS: THERAPEUTIC MULTIVITAMINS/MINERALS TAB (*BKC) 1 TABLET PO (13:00)
[2023-09-23 14:00] VITALS: BP 112/57; PULSE 63; RESP 14; TEMP 36.3; O2SAT 94
[2023-09-23] MEDS: CEFEPIME 2 GM/NS 50 ML 2 GM/50 ML BAG IVPB (17:55)
[2023-09-23] MEDS: ENOXAPARIN 40 MG/0.4 ML SYRINGE SUB-Q (19:14)
[2023-09-23 19:30] VITALS: PULSE 66; RESP 18
[2023-09-23 19:49] VITALS: BP 117/66; PULSE 63; RESP 16; TEMP 36.2; O2SAT 95
[2023-09-24] MEDS: CEFEPIME 2 GM/NS 50 ML 2 GM/50 ML BAG IVPB ×3 (02:34→17:23)
[2023-09-24] MEDS: predniSONE 1 MG TABLET 3 MG PO (05:48)
[2023-09-24] MEDS: predniSONE 5 MG TABLET PO (05:48)
[2023-09-24] MEDS: LEVOTHYROXINE SODIUM 112 MCG TABLET PO (05:48)
[2023-09-24 05:59] LABS: Basophils Absolute Auto 0.2 K/mm3 (0.0-0.1); Basophils Percent Auto 1.5 % (0.2-1.2); Eosinophils Absolute Auto 0.1 K/mm3 (0-0.3); Eosinophils Percent Auto 0.6 % (0-4.4); Hematocrit 39.9 % (42.0-52.0); Hemoglobin 13.1 g/dL (14.0-18.0); Immature Granulocyte Absolute 0.58 K/mm3 (0.00-0.031); Immature Granulocyte Percent A 3.7 % (0-0.5); Lymphocytes Absolute Auto 2.59 K/mm3 (0.9-3.2); Lymphocytes Percent Auto 16.4 % (18.3-44.2); Mean Corpuscular HGB Conc 32.8 g/dl (32-36); Mean Corpuscular Hemoglobin 32.8 pg (26-34); Mean Corpuscular Volume 99.8 fl (80-100); Mean Platelet Volume 10.6 fl (7.4-10.4); Monocytes Absolute Auto 1.7 K/mm3 (0.1-0.6); Monocytes Percent Auto 10.8 % (2.6-8.5); Neutrophils Absolute Auto 10.6 K/mm3 (1.3-6.7); Nucleated Red Blood Cells Perc 0.1 % (0.0-0.2); Platelet Count Result 473 k/mm3 (150-375); Red Cell Distribution Width 16.8 % (11.5-14.5); White Blood Count 15.8 K/mm3 (4.5-10.0)
[2023-09-24 06:00] VITALS: BP 118/64; PULSE 67; RESP 16; TEMP 36.1; O2SAT 95
[2023-09-24 06:12] LABS: Alanine Aminotransferase 29 U/L (6-50); Albumin Level 3.4 g/dL (3.5-5.1); Alkaline Phosphatase 108 U/L (38-126); Anion Gap 4 mmol/L (4-12); Aspartate Amino Transferase 25 U/L (17-59); Bilirubin,Total 0.3 mg/dL (0.2-1.3); Blood Urea Nitrogen 22 mg/dL (9-20); Calcium 8.7 mg/dL (8.4-10.2); Carbon Dioxide 25 mmol/L (22-30); Chloride 109 mmol/L (98-107); Estimated CRCL calculation 92 ml/min; Estimated Glomerular Filt Rate > 60; Glucose 87 mg/dL (65-110); Potassium 3.9 mmol/L (3.4-5.0); Sodium 138 mmol/L (137-145)
[2023-09-24] MEDS: FLUTICASONE PROP 110 MCG INHALER 12 GM (*SP) 2 PUFF INHALATION ×2 (08:13→20:18)
--- NOTE | 2023-09-24 08:49 | PM.IMPN ---
Progress Note: A&P Assessment and Plan (1) Sepsis: Qualifiers: Sepsis acute organ dysfunction status: unspecified Sepsis type: sepsis due to unspecified organism Qualified Code(s): A41.9 - Sepsis, unspecified organism Code(s): A41.9 - Sepsis, unspecified organism Status: Acute Assessment and Plan: Patient with sepsis present on admission with FadiN. He had been feeling ill with fever prior to admission and was started on Augmentin empirically. Outpatient CXR on 09/17 was clear. He presented to ED later that day since not improving. UA not done. WBC was 23.8K (but was on stress dose steroids). CT A/P showing new subtle ground glass nodule LLL concerning for PNA. Also noted to have a decrease in the size of the diffuse adenopathy. Minimal left hydronephrosis. BCx were drawn and patient was discharged home. He was told to continue Augmentin. The patient brought back to the ED 09/18 for admission due to positive blood cultures for GNB drawn on 09/17. WBC 23.8K Repeat CXR showing stable mild airspace opacities in the left lower lobe. UA on 09/18 was clear. Zosyn started 09/18 at noon. BCx 09/17: Citrobacter braakii resistant to Augmentin and cefazolin but otherwise sensitive to Zosyn, cefepime, levaquin, meropenem BCx 09/18: Citrobacter braakii Source felt to be PNA but not a common respiratory pathogen but no obvious other source. Abd US showing no acute findings. No hydronephrosis by ultrasound. Speech therapy results noted and diet adjusted. BCx 09/20: Citrobacter freundii with similar sensitivity pattern as the C.braakii. Unclear why he hasn't cleared. Related to underlying immunodeficiency? Pocket of infection? Endocarditis? Repeat BCx drawn too early? AmpC resistance? He continues to look well. No documented fevers here. WBC normalized but now higher up at 15K. CRP trending down to 2.5. BP stable. (Father states adams normally has mildly elevated WBC chronically so unclear if this can be used as a marker of improvement) Given his new onset back pain and persistent bacteremia, MRI of Thoracic and Lumbar performed 09/21 but negative for concerns for infection. CXR 09/22 showing left retrocardiac, LLL and RLL infiltrate or atelectasis. No consolidation, pleural effusion or congestion. Hx of VSD repair and has persistent murmur per family. Surface Echo showing no acute findings to suggest endocarditis/cardiac abscess Spoke with ID at [facility] felt Zosyn okay since patient doing so well but that it was not unreasonable to change to Cefepime or Meropenem. He thought possibly urine source with clear UA on admission due to the Augmentin. He also recommended repeating MRI if patient continues to have back pain, persistent bacteremia or other concerns. Patient was changed to Cefepime 2gm Q8hr (started after repeat BCx drawn on 09/22) BCx 09/22: positive for GNB. Discussed with [facility] again with plans for transfer given the persistent bacteremia and unclear source. They have accepted but no bed available. Will repeat BCx tomorrow to allow the abx time to take effect. Repeat CT imaging and include chest. Will talk with radiology to review MRI since patient with persistent back pain. Tylenol and heating pad for comfort. (2) Gram-negative bacteremia: Code(s): R78.81 - Bacteremia Status: Acute Assessment and Plan: Citrobacter braakii and fruendii bacteremia. As above. (3) Left lower lobe pneumonia: Code(s): J18.9 - Pneumonia, unspecified organism Status: Acute Assessment and Plan: As above (4) Adrenal insufficiency: Code(s): E27.40 - Unspecified adrenocortical insufficiency Status: Acute Assessment and Plan: Blood pressures was soft in the ED but was fluid responsive. He received nearly 4 L of normal saline around the time of admission so we held further IV fluids. He is tolerating p.o. and BP stable. Continue stress dose steroids and have begun to wean slowly. (5)
[2023-09-24] MEDS: CHOLECALCIFEROL 5,000 UNITS TABLET 5000 UNITS PO (10:23)
[2023-09-24] MEDS: guaiFENesin 12 HR 600 MG TABCR PO ×2 (10:23→20:40)
[2023-09-24] MEDS: ENOXAPARIN 40 MG/0.4 ML SYRINGE SUB-Q (10:23)
[2023-09-24] MEDS: SERTRALINE HCL 50 MG TABLET PO (10:23)
[2023-09-24] MEDS: FOLIC ACID 0.4 MG TABLET 0.8 MG PO (13:51)
[2023-09-24] MEDS: THERAPEUTIC MULTIVITAMINS/MINERALS TAB (*BKC) 1 TABLET PO (13:51)
[2023-09-24 14:00] VITALS: BP 117/55; PULSE 70; RESP 18; TEMP 36.2; O2SAT 96
--- NOTE | 2023-09-24 14:00 | PC.NURSE ---
consent obtained by patient's father for CT chest, abdomen, pelvis w/ contrast; CT department notified.
[2023-09-24 20:45] VITALS: BP 102/80; PULSE 84; RESP 16; TEMP 37.2; O2SAT 97
[2023-09-24] MEDS: FERROUS SULFATE 325 MG TABLET DR PO (21:35)
[2023-09-25] MEDS: CEFEPIME 2 GM/NS 50 ML 2 GM/50 ML BAG IVPB ×3 (01:43→17:49)
[2023-09-25] MEDS: LEVOTHYROXINE SODIUM 112 MCG TABLET PO (05:59)
[2023-09-25] MEDS: predniSONE 1 MG TABLET 3 MG PO (05:59)
[2023-09-25] MEDS: predniSONE 5 MG TABLET PO (05:59)
[2023-09-25 06:00] VITALS: PULSE 71; RESP 17; TEMP 36.5; O2SAT 95
[2023-09-25 06:19] VITALS: BP 90/58
[2023-09-25 06:36] LABS: Basophils Absolute Auto 0.2 K/mm3 (0.0-0.1); Basophils Percent Auto 1.9 % (0.2-1.2); Eosinophils Absolute Auto 0.1 K/mm3 (0-0.3); Hematocrit 42.3 % (42.0-52.0); Hemoglobin 13.6 g/dL (14.0-18.0); Immature Granulocyte Absolute 0.65 K/mm3 (0.00-0.031); Immature Granulocyte Percent A 5.4 % (0-0.5); Lymphocytes Absolute Auto 1.78 K/mm3 (0.9-3.2); Lymphocytes Percent Auto 14.8 % (18.3-44.2); Mean Corpuscular HGB Conc 32.2 g/dl (32-36); Mean Corpuscular Hemoglobin 31.9 pg (26-34); Mean Corpuscular Volume 99.1 fl (80-100); Mean Platelet Volume 11.2 fl (7.4-10.4); Monocytes Absolute Auto 1.2 K/mm3 (0.1-0.6); Monocytes Percent Auto 10.1 % (2.6-8.5); Neutrophils Percent Auto 66.8 % (45.5-73.1); Nucleated Red Blood Cells Perc 0.2 % (0.0-0.2); Platelet Count Result 494 k/mm3 (150-375); Red Blood Count 4.27 M/mm3 (4.6-6.20); Red Cell Distribution Width 16.9 % (11.5-14.5)
[2023-09-25 06:47] LABS: Chloride 107 mmol/L (98-107); Potassium 4.3 mmol/L (3.4-5.0); Sodium 139 mmol/L (137-145)
[2023-09-25 06:48] LABS: Alanine Aminotransferase 27 U/L (6-50); Albumin Level 3.6 g/dL (3.5-5.1); Alkaline Phosphatase 121 U/L (38-126); Anion Gap 6 mmol/L (4-12); Aspartate Amino Transferase 26 U/L (17-59); Bilirubin,Total 0.4 mg/dL (0.2-1.3); Blood Urea Nitrogen 27 mg/dL (9-20); CRP 4.8 mg/dL (<1.0); Calcium 8.8 mg/dL (8.4-10.2); Carbon Dioxide 26 mmol/L (22-30); Estimated CRCL calculation 84 ml/min; Estimated Glomerular Filt Rate > 60; Glucose 95 mg/dL (65-110); Lactate Dehydrogenase 91 U/L (120-246)
[2023-09-25 07:51] LABS: Anisocytosis 1+; Platelet Estimate Increased (Adequate); Schistocytes None Seen
[2023-09-25 08:18] VITALS: PULSE 72; RESP 18
[2023-09-25] MEDS: FLUTICASONE PROP 110 MCG INHALER 12 GM (*SP) 2 PUFF INHALATION ×2 (08:18→20:02)
[2023-09-25] MEDS: FERROUS SULFATE 325 MG TABLET DR PO (09:01)
[2023-09-25] MEDS: guaiFENesin 12 HR 600 MG TABCR PO ×2 (09:01→20:43)
[2023-09-25] MEDS: SERTRALINE HCL 50 MG TABLET PO (09:01)
[2023-09-25] MEDS: ENOXAPARIN 40 MG/0.4 ML SYRINGE SUB-Q (09:03)
--- NOTE | 2023-09-25 11:51 | PM.IMPN ---
Progress Note: A&P Assessment and Plan (1) Sepsis: Qualifiers: Sepsis acute organ dysfunction status: unspecified Sepsis type: sepsis due to unspecified organism Qualified Code(s): A41.9 - Sepsis, unspecified organism Code(s): A41.9 - Sepsis, unspecified organism Status: Acute Assessment and Plan: Patient with sepsis present on admission with HoTN. He had been feeling ill with fever prior to admission and was started on Augmentin empirically. Outpatient CXR on 09/17 was clear. He presented to ED later that day since not improving. UA not done. WBC was 23.8K (but was on stress dose steroids). CT A/P showing new subtle ground glass nodule LLL concerning for PNA. Also noted to have a decrease in the size of the diffuse adenopathy. Minimal left hydronephrosis. BCx were drawn and patient was discharged home. He was told to continue Augmentin. The patient brought back to the ED 09/18 for admission due to positive blood cultures for GNB drawn on 09/17. WBC 23.8K Repeat CXR showing stable mild airspace opacities in the left lower lobe. UA on 09/18 was clear. Zosyn started 09/18 at noon. BCx 09/17: Citrobacter braakii resistant to Augmentin and cefazolin but otherwise sensitive to Zosyn, cefepime, levaquin, meropenem BCx 09/18: Citrobacter braakii Source felt to be PNA but not a common respiratory pathogen but no obvious other source. Abd US showing no acute findings. No hydronephrosis by ultrasound. Speech therapy results noted and diet adjusted. BCx 09/20: Citrobacter freundii with similar sensitivity pattern as the C.braakii. Unclear why he hasn't cleared. Related to underlying immunodeficiency? Pocket of infection? Endocarditis? Repeat BCx drawn too early? AmpC resistance (could be inducible due to the Augmentin)? He continues to look well. No documented fevers here. WBC normalized but went up at 15K again before trending down. CRP up to 4.8 today. BP stable. (Father states patient normally has mildly elevated WBC chronically so unclear if this can be used as a marker of improvement) Given his new onset back pain and persistent bacteremia, MRI of Thoracic and Lumbar performed 09/21 but negative for concerns for infection. CXR 09/22 showing left retrocardiac, LLL and RLL infiltrate or atelectasis. No consolidation, pleural effusion or congestion. Hx of VSD repair and has persistent murmur per family. Surface Echo showing no acute findings to suggest endocarditis/cardiac abscess Spoke with ID at [facility] 09/[facility]. [facility] felt Zosyn okay since patient doing so well but that it was not unreasonable to change to Cefepime or Meropenem. He thought possibly urine source with clear UA on admission due to the Augmentin. He also recommended repeating MRI if patient continues to have back pain, persistent bacteremia or other concerns. Patient was changed to Cefepime 2gm Q8hr (started after repeat BCx drawn on 09/22) BCx 09/22: positive for GNB. Discussed with [facility] again 09/23 with plans for transfer given the persistent bacteremia and unclear source. They have accepted but no bed available. CT Ch/A/P (09/23) showing no acute findings. Spoke with radiology about MRI findings but no concerning findings noted Repeat BCx ordered for today. Contineu Cefepime. Tylenol and heating pad for comfort. If BCx remain negative then home with cefepime. If positive, then check JOHANNY. (2) Gram-negative bacteremia: Code(s): R78.81 - Bacteremia Status: Acute Assessment and Plan: Citrobacter braakii and fruendii bacteremia. As above. (3) Left lower lobe pneumonia: Code(s): J18.9 - Pneumonia, unspecified organism Status: Acute Assessment and Plan: As above (4) Adrenal insufficiency: Code(s): E27.40 - Unspecified adrenocortical insufficiency Status: Acute Assessment and Plan: Blood pressures was soft in the ED but was fluid responsive. He received nearly 4 L of normal saline around the time of admission so
[2023-09-25] MEDS: FOLIC ACID 0.4 MG TABLET 0.8 MG PO (12:45)
[2023-09-25] MEDS: THERAPEUTIC MULTIVITAMINS/MINERALS TAB (*BKC) 1 TABLET PO (12:45)
[2023-09-25 14:00] VITALS: BP 119/76; PULSE 78; RESP 12; TEMP 36.2; O2SAT 95
[2023-09-25 19:08] LABS: Mycoplasma IgM Antibody Titer 43 U/mL
[2023-09-25 19:17] LABS: Pneumococcal Antigen Urine NOT DETECTED
[2023-09-25] MEDS: MELATONIN 5 MG TABLET PO (20:43)
[2023-09-25 21:39] VITALS: BP 137/74; PULSE 73; RESP 16; TEMP 35.9; O2SAT 94
[2023-09-26] MEDS: CEFEPIME 2 GM/NS 50 ML 2 GM/50 ML BAG IVPB ×3 (01:59→18:07)
[2023-09-26 06:00] VITALS: BP 112/61; PULSE 61; RESP 16; TEMP 36.1; O2SAT 94
[2023-09-26] MEDS: predniSONE 5 MG TABLET PO (06:12)
[2023-09-26] MEDS: LEVOTHYROXINE SODIUM 112 MCG TABLET PO (06:12)
[2023-09-26] MEDS: predniSONE 1 MG TABLET 3 MG PO (06:12)
--- NOTE | 2023-09-26 06:22 | PC.NURSE ---
Pt's parents wanting to start tapering down his prednisone to his usual dose of 6mg. Scheduled for 8mg but gave 7mg at parents request. Dr. Viera stated he will discuss with Dr. Vail this AM to get order changed. Dr. Myers notified.
[2023-09-26] MEDS: FLUTICASONE PROP 110 MCG INHALER 12 GM (*SP) 2 PUFF INHALATION ×2 (07:32→20:01)
[2023-09-26] MEDS: ENOXAPARIN 40 MG/0.4 ML SYRINGE SUB-Q (09:21)
[2023-09-26] MEDS: CHOLECALCIFEROL 5,000 UNITS TABLET 5000 UNITS PO (09:22)
[2023-09-26] MEDS: FERROUS SULFATE 325 MG TABLET DR PO (09:22)
[2023-09-26] MEDS: guaiFENesin 12 HR 600 MG TABCR PO ×2 (09:22→20:49)
[2023-09-26] MEDS: SERTRALINE HCL 50 MG TABLET PO (09:22)
--- NOTE | 2023-09-26 09:47 | PCNWS ---
Weekly nutritional screen. Patient is tolerating current regular diet with level 2 thickened liquids with adequate intake. No weight loss reported. No nutritional needs at this time.
[2023-09-26] MEDS: FOLIC ACID 0.4 MG TABLET 0.8 MG PO (11:47)
[2023-09-26] MEDS: THERAPEUTIC MULTIVITAMINS/MINERALS TAB (*BKC) 1 TABLET PO (11:47)
[2023-09-26 14:00] VITALS: BP 104/54; PULSE 69; RESP 20; TEMP 36; O2SAT 95
--- NOTE | 2023-09-26 14:35 | PC.NURSE ---
Pt verbalized name and birthday this am. Pt has been up with mom in room and mom helped pt shower. Pt tolerated abx well. Pt agrees that K-pad is helping with back pain. Pt up in chair today and doing well. Pt cultures being monitored. Pt compliant with care and medication administration. Pt being monitored for any changes in status. [facility] transfer center called this morning for update, pt to remain on list. Will continue to update and monitor until discharge or transfer of pt.
--- NOTE | 2023-09-26 16:31 | PM.IMPN ---
Progress Note: A&P Assessment and Plan (1) Sepsis: Qualifiers: Sepsis acute organ dysfunction status: unspecified Sepsis type: sepsis due to unspecified organism Qualified Code(s): A41.9 - Sepsis, unspecified organism Code(s): A41.9 - Sepsis, unspecified organism Status: Acute Assessment and Plan: Patient with sepsis present on admission with HoTN. He had been feeling ill with fever prior to admission and was started on Augmentin empirically. Outpatient CXR on 09/17 was clear. He presented to ED later that day since not improving. UA not done. WBC was 23.8K (but was on stress dose steroids). CT A/P showing new subtle ground glass nodule LLL concerning for PNA. Also noted to have a decrease in the size of the diffuse adenopathy. Minimal left hydronephrosis. BCx were drawn and patient was discharged home. He was told to continue Augmentin. The patient brought back to the ED 09/18 for admission due to positive blood cultures for GNB drawn on 09/17. WBC 23.8K Repeat CXR showing stable mild airspace opacities in the left lower lobe. UA on 09/18 was clear. Zosyn started 09/18 at noon. BCx 09/17: Citrobacter braakii resistant to Augmentin and cefazolin but otherwise sensitive to Zosyn, cefepime, levaquin, meropenem BCx 09/18: Citrobacter braakii Source felt to be PNA but not a common respiratory pathogen but no obvious other source. Abd US showing no acute findings. No hydronephrosis by ultrasound. Speech therapy results noted and diet adjusted. BCx 09/20: Citrobacter freundii with similar sensitivity pattern as the C.braakii. Unclear why he hasn't cleared. Related to underlying immunodeficiency? Pocket of infection? Endocarditis? Repeat BCx drawn too early? AmpC resistance (could be inducible due to the Augmentin)? He continues to look well. No documented fevers here. WBC normalized but went up at 15K again before trending down. CRP up to 4.8 today. BP stable. (Father states patient normally has mildly elevated WBC chronically so unclear if this can be used as a marker of improvement) Given his new onset back pain and persistent bacteremia, MRI of Thoracic and Lumbar performed 09/21 but negative for concerns for infection. CXR 09/22 showing left retrocardiac, LLL and RLL infiltrate or atelectasis. No consolidation, pleural effusion or congestion. Hx of VSD repair and has persistent murmur per family. Surface Echo showing no acute findings to suggest endocarditis/cardiac abscess Spoke with ID at [facility] 09/[facility]. [facility] felt Zosyn okay since patient doing so well but that it was not unreasonable to change to Cefepime or Meropenem. He thought possibly urine source with clear UA on admission due to the Augmentin. He also recommended repeating MRI if patient continues to have back pain, persistent bacteremia or other concerns. Patient was changed to Cefepime 2gm Q8hr (started after repeat BCx drawn on 09/22) BCx 09/22: positive for Citrobacter freundii with same resistance pattern Discussed with [facility] again 09/23 with plans for transfer given the persistent bacteremia and unclear source. They have accepted but no bed available. CT Ch/A/P (09/23) showing no acute findings. Spoke with radiology about MRI findings but no concerning findings noted Repeat BCx 09/24 NGTD Continue Cefepime. Tylenol and heating pad for comfort. If BCx remain negative then PICC line placement and home with cefepime. If positive, then check JOHANNY. (2) Gram-negative bacteremia: Code(s): R78.81 - Bacteremia Status: Acute Assessment and Plan: Citrobacter braakii and fruendii bacteremia. As above. (3) Left lower lobe pneumonia: Code(s): J18.9 - Pneumonia, unspecified organism Status: Acute Assessment and Plan: As above (4) Adrenal insufficiency: Code(s): E27.40 - Unspecified adrenocortical insufficiency Status: Acute Assessment and Plan: Blood pressures was soft in the ED but was fluid responsive. He received
[2023-09-26 20:05] VITALS: PULSE 66; RESP 18
[2023-09-26 20:50] VITALS: BP 113/70; PULSE 71; RESP 18; TEMP 35.9; O2SAT 94
[2023-09-27 00:43] LABS: Legionella pneumophila Ag Ur NOT DETECTED
[2023-09-27] MEDS: CEFEPIME 2 GM/NS 50 ML 2 GM/50 ML BAG IVPB ×3 (01:18→16:03)
[2023-09-27 04:40] VITALS: BP 113/64; PULSE 72; RESP 16; TEMP 36.8; O2SAT 90
[2023-09-27 05:27] LABS: Basophils Absolute Auto 0.1 K/mm3 (0.0-0.1); Basophils Percent Auto 1.3 % (0.2-1.2); Eosinophils Absolute Auto 0.2 K/mm3 (0-0.3); Eosinophils Percent Auto 1.5 % (0-4.4); Hematocrit 38.8 % (42.0-52.0); Immature Granulocyte Absolute 0.29 K/mm3 (0.00-0.031); Immature Granulocyte Percent A 2.6 % (0-0.5); Lymphocytes Absolute Auto 1.55 K/mm3 (0.9-3.2); Mean Corpuscular HGB Conc 33.5 g/dl (32-36); Mean Corpuscular Hemoglobin 32.7 pg (26-34); Mean Corpuscular Volume 97.7 fl (80-100); Mean Platelet Volume 10.8 fl (7.4-10.4); Monocytes Absolute Auto 1.3 K/mm3 (0.1-0.6); Monocytes Percent Auto 11.8 % (2.6-8.5); Neutrophils Absolute Auto 7.6 K/mm3 (1.3-6.7); Neutrophils Percent Auto 68.8 % (45.5-73.1); Platelet Count Result 475 k/mm3 (150-375); Red Blood Count 3.97 M/mm3 (4.6-6.20); Red Cell Distribution Width 16.5 % (11.5-14.5); White Blood Count 11.1 K/mm3 (4.5-10.0)
[2023-09-27 05:39] LABS: Alanine Aminotransferase 25 U/L (6-50); Albumin Level 3.3 g/dL (3.5-5.1); Alkaline Phosphatase 116 U/L (38-126); Anion Gap 6 mmol/L (4-12); Aspartate Amino Transferase 29 U/L (17-59); Bilirubin,Total 0.3 mg/dL (0.2-1.3); Blood Urea Nitrogen 21 mg/dL (9-20); Carbon Dioxide 24 mmol/L (22-30); Chloride 109 mmol/L (98-107); Estimated CRCL calculation 103 ml/min; Estimated Glomerular Filt Rate > 60; Glucose 94 mg/dL (65-110); Lactate Dehydrogenase 70 U/L (120-246); Potassium 3.9 mmol/L (3.4-5.0); Sodium 139 mmol/L (137-145)
[2023-09-27 06:07] VITALS: O2SAT 94
[2023-09-27] MEDS: LEVOTHYROXINE SODIUM 112 MCG TABLET PO (06:26)
[2023-09-27] MEDS: predniSONE 5 MG TABLET PO (06:26)
[2023-09-27] MEDS: predniSONE 1 MG TABLET 3 MG PO (06:27)
[2023-09-27] MEDS: FLUTICASONE PROP 110 MCG INHALER 12 GM (*SP) 2 PUFF INHALATION (08:01)
[2023-09-27] MEDS: SERTRALINE HCL 50 MG TABLET PO (09:52)
[2023-09-27] MEDS: THERAPEUTIC MULTIVITAMINS/MINERALS TAB (*BKC) 1 TABLET PO (09:52)
[2023-09-27] MEDS: ENOXAPARIN 40 MG/0.4 ML SYRINGE SUB-Q (09:52)
[2023-09-27] MEDS: guaiFENesin 12 HR 600 MG TABCR PO (09:52)
[2023-09-27] MEDS: FERROUS SULFATE 325 MG TABLET DR PO (09:53)
[2023-09-27] MEDS: FOLIC ACID 0.4 MG TABLET 0.8 MG PO (11:24)
[2023-09-27 14:00] VITALS: BP 114/51; PULSE 69; RESP 16; TEMP 35.5; O2SAT 95
[2023-09-27] MEDS: LORazepam INJ (*CRX) 2 MG/ML VIAL 1 MG IV PUSH (17:44)
--- NOTE | 2023-10-02 20:20 | PM.DS ---
DS: Admitting Diagnosis Discharge Date 09/27/23 Admitting Diagnosis positive blood cultures DS: Discharge Diagnosis Discharge Diagnosis (1) Sepsis: Qualifiers: Sepsis acute organ dysfunction status: unspecified Sepsis type: sepsis due to unspecified organism Qualified Code(s): A41.9 - Sepsis, unspecified organism Code(s): A41.9 - Sepsis, unspecified organism Status: Acute (2) Bacteremia: Code(s): R78.81 - Bacteremia Status: Acute (3) Gram-negative bacteremia: Code(s): R78.81 - Bacteremia Status: Acute (4) Adrenal insufficiency: Code(s): E27.40 - Unspecified adrenocortical insufficiency Status: Acute (5) Pneumonia: Qualifiers: Laterality: left Lung location: lower lobe of lung Pneumonia type: due to unspecified organism Qualified Code(s): J18.9 - Pneumonia, unspecified organism Code(s): J18.9 - Pneumonia, unspecified organism Status: Acute (6) Common variable immunodeficiency: Code(s): D83.9 - Common variable immunodeficiency, unspecified Status: Acute (7) Hypothyroidism: Code(s): E03.9 - Hypothyroidism, unspecified Status: Acute (8) Down syndrome: Code(s): Q90.9 - Down syndrome, unspecified Status: Acute DS: Summary Hospital Course Hospital Course: 28-year-old male with PMH Down syndrome, Jose Roberto syndrome, autism, AIHA, thrombocytopenia, DVT, CVID, central adrenal insufficiency, hypothyroidism, and VSD s/p repair presented to [facility] for evaluation after blood cultures were obtained the day prior. History mainly obtained from parents (father, Dr. Viera, animal ride attendant). He had been running a fever T-max 102.5? F for 6 days prior to admission, blood pressures running soft and he received 2 stress dose of steroids according to his father. Patient was very weak and brought to the ER the day prior, CT abdomen and pelvis revealed findings suggestive of left lower lobe aspiration or pneumonia and minimal left hydronephrosis without evidence of obstructing asked her stone. Received 2 L of normal saline with improvement and it was decided the patient would be discharged home on Augmentin. He returns with positive blood cultures. Repeat ER evaluation on 09/19/2023, the day of admission, demonstrates soft blood pressures as low as 89/48 which was responsive to IV fluid resuscitation, patient was afebrile, elevated WBC count at 15,800, quad viral screen negative, lactic acid 1.5. Patient was started on Zosyn and azithromycin and admitted. blood cultures on 09/17, day [employer] grew Citrobacater braakii, resistant to Augmentin, sensitive to ceftazidime cefepime ceftriaxone levofloxacin gentamicin imipenem Zosyn and Bactrim. blood cultures on 09/18 again demonstrating same organism blood culture on 09/20 demonstrating Citrobacter freundii with identical resistance pattern blood cultures on 09/22 demonstrating the same. abx changed to cefepime. ampC resistance? blood cultures on 09/24 negative, final report. Therefore patient is stable for discharge to home. midline was placed and patient sent home with home health infusions with cefepime 2 g t.i.d. to end on October 03 On day of discharge WBC count down to 11.1. Father electing not to repeat CBC in a few days. They will watch for signs and symptoms of infection/sepsis. Other studies include surface echocardiogram with no acute findings to suggest endocarditis/cardiac abscess, MRI thoracic and lumbar spine performed on 09/21 negative for concerns of infection. Time Spent with Patient Time attestation: Total time spent providing and/or coordinating discharge services: Exam Const: General: comfortable and no acute distress Eyes: Pupils: Equal, round and reactive pupils present Neck: Neck: supple Resp: Effort & Inspection: normal respiratory effort Auscultation: clear to auscultation bilaterally Cardio: Rate: regular rate Rhythm: regular rhythm GI: GI Pal
== END 2023-09-27 18:45 | disposition home health service (06) | DRG 871 ==
LOC: ANHED 12:18 → ANHIMU 18:43 → ANH3MEDSUR 20:08
PROVIDERS: Internal Medicine; Physician Assistant; Admitting Provider General Practice; Emergency Provider Physician Assistant; PCP Pediatrics; Visit Provider General Practice
DX: A41.89 Other specified sepsis (principal); J18.9 Pneumonia, unspecified organism; D59.10 Autoimmune hemolytic anemia, unspecified; D69.3 Immune thrombocytopenic purpura; D69.41 Evans syndrome; D83.9 Common variable immunodeficiency, unspecified; E27.40 Unspecified adrenocortical insufficiency; F84.0 Autistic disorder; E03.9 Hypothyroidism, unspecified; Z20.822 Contact with and (suspected) exposure to COVID-19; Q90.9 Down syndrome, unspecified; Z90.81 Acquired absence of spleen
CPT/HCPCS: 36415; 36569; 71045; 71046; 71260; 72157; 72158; 74177; 76700; 80048; 80053; 81003; 82784; 83605; 83615; 83735; 84100; 84145; 85025; 85046; 85610; 85652; 85730; 86140; 86738; 86880; 87040; 87077; 87186; 87449; 87637; 87641; 87899; 92610; 92611; 93306; 93970; 94640; 94667; 96365; 96366; 96367; 97161; 97165; 99285; A9270; A9577; C1751; G0378; J0456; J0692; J1650; J2060; J2543; J7030; J7512; Q9967

== ENCOUNTER 2023-10-05 10:33 | Emergency (ER) | payer BC, MEDICAID, SELFPAY ==
--- NOTE | ~2023-10-05 | XR_ITS ---
EXAMINATION: XR chest 2V DATE: 10/05/2023 11:19 INDICATION: Cough. TECHNIQUE: Frontal and lateral views of the chest were obtained. COMPARISON: Chest single view 09/23/2023 FINDINGS: There is mild scarring at right lung apex. No pneumonia, pleural effusion, or pneumothorax. The heart size is normal. Small median sternotomy wires are noted. There is a catheter in right uppe r arm. There is a surgical clip in left abdomen. IMPRESSION: 1. Mild scarring at right lung apex. Reviewed, dictated and finalized at location E.
[2023-10-05] MEDS: SODIUM CHLORIDE 0.9% IV 1,000 ML 999 ML IV CONT (11:31)
--- NOTE | 2023-10-05 11:58 | ED.GENADULT ---
HPI - General Adult General Chief complaint: Unspecified Stated complaint: increased adrenal crisis Time Seen by Provider: 10/05/23 10:45 History of Present Illness HPI narrative: patient is a 28-year-old gentleman presents emergency department with chief complaint of possible adrenal crisis. The patient has history of autism down syndrome autoimmune hemolytic anemia thrombocytopenia DVT common variable immune deficiency. Patient was recently admitted to the hospital for bacteremia and has a midline that was to be discontinued today the patient's father who is number medical staff noticed this morning that he was showing signs of his adrenal crisis as they have been trying to taper down his steroids. He was concerned that there may be a return of the patient's bacteremia Related Data Home Medications Medication Instructions Recorded Confirmed cholecalciferol (vitamin D3) 125 125 mcg PO EVERY OTHER DAY 10/08/21 09/19/23 mcg (5,000 unit) tablet (Vitamin D3) folic acid 800 mcg tablet 0.8 mg PO QACLUNCH 10/08/21 09/19/23 multivitamin with minerals-folic 1 tablet PO QACLUNCH 10/08/21 09/19/23 acid 0.4 mg tablet prasterone (dhea) 25 mg tablet 25 mg PO QACLUNCH 10/08/21 09/19/23 (DHEA) melatonin 3 mg tablet 5 mg PO HS PRN Insomnia 10/15/22 09/19/23 ferrous sulfate 325 mg (65 mg 325 mg PO DAILY 09/24/23 09/24/23 iron) tablet Allergies Allergy/AdvReac Type Severity Reaction Status Date / Time gluten Allergy Diarrhea Verified 10/05/23 10:34 Review of Systems Review of Systems: A 10 system review of systems was completed on the patient and is negative except for what is stated in the HPI. Nursing and ancillary documentation was reviewed. 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 Code status: Full code. Smoking status: Never smoker Second hand tobacco smoke exposure: No Alcohol intake: never Substance use: never Do You Feel Safe in your Home?: Yes Lack of Transportation: No Lack of Food: Never True Current Housing: I Have Housing Concerned About Future Housing: No Difficulty Paying Gas/Electric Bills: No Difficulty Paying for Meds: No Currently Unemployed: No Education: Don't Know Difficulty w/ Childcare or Family Care: No Additional living arrangements comments: He lives at home with his parents. He is dependent for care. Additional occupation/education comments: Disabled Spiritual care concerns: No Exam Narrative: GENERAL: Well-appearing, well-nourished, and in no acute distress. HEAD: Normocephalic, atraumatic. EYES: PERRLA and EOMI. ENT: Nares clear, no rhinorrhea or epistaxis. Mucous membranes moist. NECK: Supple. CHEST: Clear to auscultation. No respiratory distress. HEART: Regular rate and rhythm. No murmur heard. Normal peripheral pulses. ABDOMEN: Soft, nontender, nondistended, normal active bowel sounds. EXTREMITIES: Normal range of motion. No edema. SKIN: Warm, dry, no rash. NEURO: No focal deficits. Alert and oriented x3. PSYCH: Normal mood and affect. Course Vital Sign
[2023-10-05 12:13] LABS: Basophils Absolute Auto 0.1 K/mm3 (0.0-0.1); Basophils Percent Auto 0.6 % (0.2-1.2); Hematocrit 38.3 % (42.0-52.0); Hemoglobin 13.1 g/dL (14.0-18.0); Immature Granulocyte Absolute 0.25 K/mm3 (0.00-0.031); Immature Granulocyte Percent A 1.3 % (0-0.5); Lymphocytes Absolute Auto 1.53 K/mm3 (0.9-3.2); Lymphocytes Percent Auto 7.7 % (18.3-44.2); Mean Corpuscular HGB Conc 34.2 g/dl (32-36); Mean Corpuscular Hemoglobin 32.3 pg (26-34); Mean Corpuscular Volume 94.6 fl (80-100); Mean Platelet Volume 11.6 fl (7.4-10.4); Monocytes Percent Auto 4.9 % (2.6-8.5); Neutrophils Absolute Auto 16.9 K/mm3 (1.3-6.7); Neutrophils Percent Auto 85.5 % (45.5-73.1); Nucleated Red Blood Cells Perc 0.1 % (0.0-0.2); Platelet Count Result 345 k/mm3 (150-375); Red Blood Count 4.05 M/mm3 (4.6-6.20); Red Cell Distribution Width 16.2 % (11.5-14.5); White Blood Count 19.8 K/mm3 (4.5-10.0)
[2023-10-05 12:16] VITALS: BP 102/62; PULSE 60; RESP 18; TEMP 36.9; O2SAT 99
[2023-10-05 12:23] LABS: Lactic Acid Reflex 1.3 mmol/L (0.7-2.0)
[2023-10-05 12:25] LABS: Alanine Aminotransferase 35 U/L (6-50); Albumin Level 3.5 g/dL (3.5-5.1); Alkaline Phosphatase 143 U/L (38-126); Anion Gap 7 mmol/L (4-12); Aspartate Amino Transferase 32 U/L (17-59); Bilirubin,Total 0.4 mg/dL (0.2-1.3); Blood Urea Nitrogen 33 mg/dL (9-20); CRP 3.4 mg/dL (<1.0); Calcium 8.6 mg/dL (8.4-10.2); Carbon Dioxide 20 mmol/L (22-30); Chloride 110 mmol/L (98-107); Estimated CRCL calculation 98 ml/min; Estimated Glomerular Filt Rate > 60; Glucose 115 mg/dL (65-110); Potassium 4.4 mmol/L (3.4-5.0); Sodium 137 mmol/L (137-145)
[2023-10-05 12:44] LABS: Appearance Urine Clear (Clear); Bacteria Urine None Seen /hpf; Bilirubin Urine Negative (Negative); Blood Urine Negative (Negative); Color Urine Yellow (Yellow); Glucose Urine UA Negative (Negative); Ketones Urine Negative (Negative); Leukocyte Esterase Ur Negative LEU/UL (Negative); Nitrate Urine Negative (Negative); Non Pathogenic Casts 0-2; Protein Urine Trace mg/dL (Negative); RBC Urine 0-2 /hpf (0-2); Squamous Epithelial Cell Urine None Seen /hpf (Few); Urobilinogen Urine 0.2 mg/dL (<2.0); WBC Urine 0-5 /hpf (0-3)
[2023-10-05 12:50] LABS: Add Urine Microscopic? YES
[2023-10-05 12:51] LABS: Procalcitonin 3.2 ng/mL
[2023-10-05 13:06] LABS: Erythrocyte Sedimentation Rate 33 mm/hr (0-20)
[2023-10-05 13:42] VITALS: BP 106/64; PULSE 72; RESP 17; TEMP 36.6; O2SAT 96
== END 2023-10-05 13:44 | disposition home or self-care (01) ==
PROVIDERS: Emergency Provider Emergency Medicine; PCP Pediatrics
DX: E27.40 Unspecified adrenocortical insufficiency (principal); Q90.9 Down syndrome, unspecified; F84.0 Autistic disorder; D59.10 Autoimmune hemolytic anemia, unspecified; D83.9 Common variable immunodeficiency, unspecified; D69.41 Evans syndrome; E03.9 Hypothyroidism, unspecified; Z86.718 Personal history of other venous thrombosis and embolism; Z90.81 Acquired absence of spleen; Z79.899 Other long term (current) drug therapy
CPT/HCPCS: 36415; 71046; 80053; 81001; 83605; 84145; 85025; 85652; 86140; 87040; 96360; 99283; J7030

== ENCOUNTER 2023-12-01 13:21 | Outpatient (CLI) | payer BC, MEDICAID, SELFPAY ==
[2023-12-01 14:40] LABS: Add Urine Microscopic? YES; Appearance Urine Cloudy (Clear); Bacteria Urine 1+ /hpf; Bilirubin Urine 1+ (Negative); Blood Urine Negative (Negative); Color Urine Dark Yellow (Yellow); Glucose Urine UA Negative (Negative); Hyaline Casts Urine Present /lpf; Ketones Urine 1+ mg/dL (Negative); Leukocyte Esterase Ur 2+ LEU/UL (Negative); Need Manual Microscopic Reviewed; Nitrate Urine Negative (Negative); Protein Urine Trace mg/dL (Negative); RBC Urine 0-2 /hpf (0-2); Specific Grav Ur 1.027 (1.001-1.035); Squamous Epithelial Cell Urine Few /hpf (Few); Urobilinogen Urine 0.2 mg/dL (<2.0); WBC Urine 51-100 /hpf (0-3); pH Urine 5.5 (5.0-9.0)
== END 2023-12-01 13:22 | disposition home or self-care (01) ==
LOC: ANHGOSHLAB 13:23
PROVIDERS: PCP Pediatrics; Visit Provider Internal Medicine
DX: D83.9 Common variable immunodeficiency, unspecified (principal); R82.71 Bacteriuria
CPT/HCPCS: 81001; 87086; 87088

== ENCOUNTER 2023-12-16 16:06 | Emergency (ER) | payer BC, MEDICAID, SELFPAY ==
--- NOTE | ~2023-12-16 | XR_ITS ---
XR chest 1V portable Ordering provider: Nghia Serrato MD History: 28 years Male with . Cough/Fever . Comparison: October 05, 2023 FINDINGS: MEDIASTINUM: The cardiac silhouette is not enlarged. Postoperative changes in the mediastinum. LUNGS: No infiltrates, effusions or pneumothorax. OTHER: No free air under the diaphragm. IMPRESSION: No acute cardiopulmonary pathology. Reviewed, dictated and finalized at location A.
[2023-12-16 16:10] VITALS: BP 76/53; PULSE 104; RESP 22; TEMP 38.1; O2SAT 96
[2023-12-16 16:23] VITALS: BP 95/54; PULSE 92; RESP 16; O2SAT 95
[2023-12-16] MEDS: ACETAMINOPHEN 325 MG TABLET 650 MG PO (16:31)
[2023-12-16 16:34] LABS: Hematocrit 41.8 % (42.0-52.0); Mean Corpuscular HGB Conc 33.5 g/dl (32-36); Mean Corpuscular Hemoglobin 31.7 pg (26-34); Mean Corpuscular Volume 94.8 fl (80-100); Red Blood Count 4.41 M/mm3 (4.6-6.20); Red Cell Distribution Width 16.6 % (11.5-14.5); White Blood Count 20.5 K/mm3 (4.5-10.0)
--- NOTE | 2023-12-16 16:37 | ED.GENADULT ---
HPI - General Adult General Chief complaint: Unspecified Stated complaint: unwell Time Seen by Provider: 12/16/23 16:11 Source: family History of Present Illness HPI narrative: Patient is a 28-year-old male with history common variable deficiency, splenectomy, and Down syndrome who presents ER with possible sepsis. Over the last week his family has been sick with a viral URI. Patient has had similar cold. This morning patient woke up and was having a fever. Father gave the patient his stress dose of steroids. Patient then became more agitated throughout the day, he developed shaking rigors in afternoon, his cough has been course and semi productive. Father is also concerned that the patient had some burning urination this afternoon as well. The patient is the son of the local primary physician. Related Data Home Medications Medication Instructions Recorded Confirmed cholecalciferol (vitamin D3) 125 125 mcg PO EVERY OTHER DAY 10/08/21 09/19/23 mcg (5,000 unit) tablet (Vitamin D3) folic acid 800 mcg tablet 0.8 mg PO QACLUNCH 10/08/21 09/19/23 multivitamin with minerals-folic 1 tablet PO QACLUNCH 10/08/21 09/19/23 acid 0.4 mg tablet prasterone (dhea) 25 mg tablet 25 mg PO QACLUNCH 10/08/21 09/19/23 (DHEA) melatonin 3 mg tablet 5 mg PO HS PRN Insomnia 10/15/22 09/19/23 ferrous sulfate 325 mg (65 mg 325 mg PO DAILY 09/24/23 09/24/23 iron) tablet Allergies Allergy/AdvReac Type Severity Reaction Status Date / Time gluten Allergy Diarrhea Verified 12/16/23 18:26 Review of Systems Review of Systems: ROS unobtainable: Yes other (ROS provided by Father) [facility] Past Medical History Medical History Acquired hypothyroidism Adrenal insufficiency Anemia Asplenia after surgical procedure Autism spectrum disorder Chronic interstitial lung disease Common variable immunodeficiency Down syndrome Rios syndrome Fracture of distal end of left fibula Heart murmur Hypothyroidism, unspecified Incomplete rotation intestine Nystagmus Surgical History Surgical History History of ventricular septal defect repair Hx of splenectomy Post-splenectomy Family History Family History Father Prostate carcinoma Social History Social History Social History: Surrogate medical decision maker: Jose and Adali Viera, parents. Code status: Full code. Smoking status: Never smoker Second hand tobacco smoke exposure: No Alcohol intake: never Substance use: never Do You Feel Safe in your Home?: Yes Lack of Transportation: No Lack of Food: Never True Current Housing: I Have Housing Concerned About Future Housing: No Difficulty Paying Gas/Electric Bills: No Difficulty Paying for Meds: No Currently Unemployed: No Education: Don't Know Difficulty w/ Childcare or Family Care: No Additional living arrangements comments: He lives at home with his parents. He is dependent for care. Additional occupation/education comments: Disabled Spiritual care concerns: No Exam Narrative: GENERAL: Ill-appearing, well-nourished, and in no acute distress. HEAD: Normocephalic, atraumatic. ENT: Mucous membranes moist. NECK: Supple. CHEST: Bilateral faint wheezes with possible rales, there are plenty of referred lung sounds from the upper airway. No respiratory distress. HEART: Tachycardic and regular. Normal peripheral pulses. ABDOMEN: Soft, nontender, nondistended. EXTREMITIES: Normal range of motion. No edema. SKIN: Warm, dry, no rash. NEURO: Awake alert, at neurologic baseline, follows commands and interacts. Course Course Emergency Course: Patient aggressively hydrated. Initial blood pressure was not accurate and was around 101 systolic. After IV
[2023-12-16 16:44] LABS: Lactic Acid Reflex 1.5 mmol/L (0.7-2.0)
[2023-12-16 16:45] LABS: Partial Thromboplastin Time 25.9 Seconds (22.3-36.8); Prothrombin Time 13.9 Seconds (11.1-14.7)
[2023-12-16 16:57] LABS: Alanine Aminotransferase 35 U/L (6-50); Albumin Level 3.8 g/dL (3.5-5.1); Alkaline Phosphatase 133 U/L (38-126); Anion Gap 9 mmol/L (4-12); Aspartate Amino Transferase 33 U/L (17-59); Bilirubin,Total 0.4 mg/dL (0.2-1.3); Blood Urea Nitrogen 27 mg/dL (9-20); CRP 4.3 mg/dL (<1.0); Calcium 9.1 mg/dL (8.4-10.2); Carbon Dioxide 23 mmol/L (22-30); Chloride 99 mmol/L (98-107); Estimated Glomerular Filt Rate > 60; Glucose 110 mg/dL (65-110); Potassium 4.6 mmol/L (3.4-5.0); Sodium 131 mmol/L (137-145)
[2023-12-16 17:01] VITALS: TEMP 37.1
[2023-12-16 17:11] LABS: Anisocytosis 2+; Band Neutrophils Percent 1 % (0-6); Influenza A QL RT-PCR Negative (Negative); Influenza B QL RT-PCR Negative (Negative); Lymphocytes Absolute Manual 2.66 K/mm3 (1.1-4.5); Monocytes Absolute Manual 1.02 K/mm3 (0.1-0.90); Monocytes Percent Manual 5 % (3-9); Neutrophils Absolute Manual 16.81 K/mm3 (1.3-6.7); Neutrophils Percent Manual 81 % (46-73); Platelet Estimate Adequate (Adequate); RSV RNA, RT-PCR Negative (Negative); SARS-CoV-2 RNA PCR Negative (Negative); Schistocytes None Seen; Total Cells Counted 100
[2023-12-16 17:35] VITALS: TEMP 37.1
[2023-12-16 17:44] LABS: Add Urine Microscopic? YES; Appearance Urine Clear (Clear); Bacteria Urine None Seen /hpf; Bilirubin Urine Negative (Negative); Blood Urine Negative (Negative); Color Urine Yellow (Yellow); Glucose Urine UA Negative (Negative); Ketones Urine Negative (Negative); Leukocyte Esterase Ur 1+ LEU/UL (Negative); Nitrate Urine Negative (Negative); Non Pathogenic Casts 0-2; Protein Urine Negative (Negative); RBC Urine 0-2 /hpf (0-2); Specific Grav Ur 1.012 (1.001-1.035); Squamous Epithelial Cell Urine None Seen /hpf (Few); Urobilinogen Urine 0.2 mg/dL (<2.0); pH Urine 7.5 (5.0-9.0)
[2023-12-16] MEDS: AZITHROMYCIN 250 MG TABLET 500 MG PO (18:29)
[2023-12-16 18:32] VITALS: BP 130/67; PULSE 63; RESP 18; O2SAT 95
[2023-12-16] MEDS: cefuroxime axetiL 250 MG TABLET 500 MG PO (18:42)
[2023-12-22 17:43] LABS: West Nile Virus, IgM <0.90 index
== END 2023-12-16 18:59 | disposition home or self-care (01) ==
PROVIDERS: Internal Medicine; Emergency Provider Emergency Medicine; PCP Pediatrics
DX: N39.0 Urinary tract infection, site not specified (principal); R50.9 Fever, unspecified; Q90.9 Down syndrome, unspecified; E03.9 Hypothyroidism, unspecified; D83.9 Common variable immunodeficiency, unspecified; Z20.822 Contact with and (suspected) exposure to COVID-19; Z90.81 Acquired absence of spleen
CPT/HCPCS: 36415; 71045; 80053; 81001; 83605; 85025; 85610; 85730; 86140; 86788; 87040; 87077; 87086; 87186; 87637; 96360; 96361; 99283; A9270; J7030

== ENCOUNTER 2024-01-10 13:25 | Outpatient (CLI) | payer BC, MEDICAID, SELFPAY ==
[2024-01-10 16:47] LABS: Add Urine Microscopic? YES; Appearance Urine Clear (Clear); Bacteria Urine Rare /hpf; Bilirubin Urine 1+ (Negative); Blood Urine Negative (Negative); Color Urine Dark Yellow (Yellow); Glucose Urine UA Negative (Negative); Ketones Urine Trace mg/dL (Negative); Leukocyte Esterase Ur Trace LEU/UL (Negative); Nitrate Urine Negative (Negative); Protein Urine Negative (Negative); RBC Urine 0-2 /hpf (0-2); Specific Grav Ur 1.027 (1.001-1.035); Squamous Epithelial Cell Urine Occasional /hpf (Few); Urobilinogen Urine 0.2 mg/dL (<2.0); WBC Urine 0-5 /hpf (0-3)
== END 2024-01-10 13:26 | disposition home or self-care (01) ==
LOC: ANHGOSHLAB 13:27
PROVIDERS: PCP Pediatrics; Visit Provider Internal Medicine
DX: N39.0 Urinary tract infection, site not specified (principal)
CPT/HCPCS: 81001

== ENCOUNTER 2024-01-22 11:49 | Outpatient (CLI) | payer BC, MEDICAID, SELFPAY ==
[2024-01-22 16:43] LABS: Parathyroid Intact < 14.5 pg/mL (14.5-75.2)
[2024-01-22 17:13] LABS: Anion Gap 9 mmol/L (4-12); Blood Urea Nitrogen 28 mg/dL (9-20); Calcium 9.4 mg/dL (8.4-10.2); Carbon Dioxide 24 mmol/L (22-30); Chloride 105 mmol/L (98-107); Estimated Glomerular Filt Rate > 60; Glucose 91 mg/dL (65-110); Potassium 4.1 mmol/L (3.4-5.0); Sodium 138 mmol/L (137-145)
[2024-01-27 17:28] LABS: Collagen Type I C-Telopeptide 286 pg/mL (87-1200)
[2024-01-28 05:33] LABS: Testosterone Free 4.2 pg/mL (35.0-155.0); Testosterone Total 46 ng/dL (250-1100)
[2024-01-29 08:10] LABS: Creatinine, Random Urine 99 mg/dL (20-320); N-Telopeptide (NTx) 42 (12-99)
== END 2024-01-22 11:50 | disposition home or self-care (01) ==
LOC: ANHGOSHLAB 11:51
PROVIDERS: PCP Pediatrics; Visit Provider Internal Medicine
DX: D50.9 Iron deficiency anemia, unspecified (principal); M80.00XA Age-related osteoporosis with current pathological fracture, unspecified site, initial encounter for fracture
CPT/HCPCS: 36415; 80048; 82306; 82523; 82570; 82728; 83970; 84402; 84403

== ENCOUNTER 2024-01-25 15:00 | Outpatient (RCR) | payer BC, MEDICAID, SELFPAY ==
--- NOTE | 2023-10-30 11:09 | OPREHPOC ---
Outpatient Therapy Plan of Care This is a Multidisciplinary Plan of Care that may contain components documented by all disciplines (PT, OT, and ST.) PT Problem 1 PT Problem #1 Knowledge Deficit PT Goal 1 Goal Pt to be IND with issued HEP Target Visit 10 PT Problem 2 PT Problem #2 Pain PT Goal 1 Goal Pt to report no back pain in the last week. Target Visit 6 PT Goal 2 Goal Pt to get in/out of bed without an increase in pain. Target Visit 6 PT Problem 3 PT Problem #3 Impaired Functional Mobil PT Goal 1 Goal Pt to be able to lift and carry 10lb from ground level without pain reports. Target Visit 6 PT Problem 4 PT Problem #4 Impaired Strength PT Goal 1 Goal Pt to demonstrate 5 sit <> stands without an increase in knee valgus. Target Visit 6 PT Goal 2 Goal Pt to demonstrate 10 full range heel raises. Target Visit 6 PT Problem 5 PT Problem #5 Impaired Gait PT Goal 1 Goal Pt to ambulate with neutral LE alignment Target Visit 6
--- NOTE | 2023-10-30 11:09 | PTOPEVAL1 ---
Assessment and note entered by Nakia Russell, PT, DPT Evaluation Information Assessment Status Evaluation Diagnosis low back pain ICD-10 Condition Codes (PT) Pain in low back M54.50,Weakness R53.1 Subjective Information Pt is accompanied today with his mother Adali. Pt has autism and is minimally verbal today. She states his pain seems to be more when bending over to pick something up or when stooping at the sink to wash his hands. She reports a prolonged hospitalization ~10 days during which he was not very active. She reports his pain reports have decreased but are still present. He reports pain with sitting up from mat table during evaluation. Reported Pain Level Pain Score Mild Pain: Rosales Ramirez Assessment PT Clinical Summary Yoav presents to therapy today for his initial evaluation with a diagnosis of low back pain. Today he demonstrates decreased tone globally particularly in his hip and core. He also demonstrates decreased functional strength, gait deviations, as well as impaired body mechanics with functional transfers/transitions. Skilled therapy services are indicated to address the deficits noted above, to limit pain, and to improve functional mobility. Plan of Care Interventions Electrical Stimulation,Hot Pack/Cold Pack,Manual Therapy,Neuro Re-education,Patient/Caregiver Educati,Therapeutic Activities,Therapeutic Exercise PT Services Indicated Yes Treatment Frequency and 1x/wk for 6 visits Duration These treatments will address the objective and functional deficits as defined above. The patient will be advanced safely and appropriately in order for the patient to progress towards his/her prior level of function. Additional exercises will be introduced and as well as a comprehensive home exercise program upon discharge, if needed, ?to ensure carryover of functional gains achieved in the clinic. This treatment plan has been reviewed and agreement upon by the patient.
--- NOTE | 2023-11-28 16:06 | PCPTNOTE ---
Patient did not show up for scheduled appointment this date. Called and spoke with mother, states they were out of town and delayed getting back.
--- NOTE | 2023-12-05 16:40 | PTOPPROG ---
Assessment and note entered by Nakia Russell, PT, DPT Evaluation Information Assessment Status Progress Diagnosis low back pain ICD-10 Condition Codes (PT) Pain in low back M54.50,Weakness R53.1 Subjective Information Per family report Yoav is still complaining of back pain, especially when waking up in the morning. Pts father complains of progressive weakness, impaired balance, and decreasing coordination. About 6 months ago, Yoav was able to go to the gym and walk on the treadmill ~2.0mph for 20-30 mins without complaints, now walks less than 1.0 mph for a decreased amount of time. Pt family also reports concerns for his joints; particularly his ankle, as he seems to be collapsing in on his foot. Pts mother also reports a new fear of the stairs within the last 6 months as well. Assessment PT Clinical Summary Pt has completed 5 visits of skilled therapy to treat his diagnosis of low back pain. He has progressed his home exercises exercises since starting therapy but continues to report back pain with ADLs per parents report. He continues to demonstrate decreased functional mobility per his baseline reports. Continuation of skilled therapy services are indicated to address strength, stability, coordination, and balance deficits. Plan of Care Interventions Electrical Stimulation,Hot Pack/Cold Pack,Manual Therapy,Neuro Re-education,Patient/Caregiver Educati,Therapeutic Activities,Therapeutic Exercise PT Services Indicated Yes Treatment Frequency and 1x/wk for 6 visits Duration These treatments will address the objective and functional deficits as defined above. The patient will be advanced safely and appropriately in order for the patient to progress towards his/her prior level of function. Additional exercises will be introduced and as well as a comprehensive home exercise program upon discharge, if needed, ?to ensure carryover of functional gains achieved in the clinic. This treatment plan has been reviewed and agreement upon by the patient.
--- NOTE | 2023-12-14 09:08 | PCPTNOTE ---
Patient called & cancelled scheduled appointment this date due to over sleeping.
--- NOTE | 2024-01-10 13:28 | PTOPPROG ---
Assessment and note entered by Nakia Russell, PT, DPT Evaluation Information Assessment Status Progress Diagnosis low back pain ICD-10 Condition Codes (PT) Pain in low back M54.50,Weakness R53.1 Subjective Information Pt mother states he has not been complaining of back pain recently, states he still cannot keep up with his family like he did a couple of months ago. She also reports he still avoid the stairs and is really fearful. Assessment PT Clinical Summary Pt has completed 9 visits of skilled therapy to treat his diagnosis of low back pain. He continues to demonstrate decreased ankle, hip, and trunk strength with decreased functional mobility per his baseline reports. He also continues to have a fear avoidance of stairs limiting his ability to ambulate around his home. Continuation of skilled therapy services are indicated to address strength, stability, coordination, and balance deficits. Plan of Care Interventions Manual Therapy,Neuro Re-education,Patient/ Caregiver Educati,Therapeutic Activities, Therapeutic Exercise PT Services Indicated Yes Treatment Frequency and 1x/wk for 6 visits Duration These treatments will address the objective and functional deficits as defined above. The patient will be advanced safely and appropriately in order for the patient to progress towards his/her prior level of function. Additional exercises will be introduced and as well as a comprehensive home exercise program upon discharge, if needed, ?to ensure carryover of functional gains achieved in the clinic. This treatment plan has been reviewed and agreement upon by the patient.
--- NOTE | 2024-01-29 08:48 | PCPTNOTE ---
This treatment is being continued on visit number [id number]. Please see documentation on both accounts to view progress. Completed interventions, outcomes, and problems have been marked as Inactive to facilitate the copying of the Care plan routine for recurring accounts.
== END 2024-01-28 23:59 | disposition home or self-care (01) ==
LOC: ANHGOSHPT 15:00
PROVIDERS: PCP Pediatrics; Visit Provider Pediatrics
DX: M54.9 Dorsalgia, unspecified (principal)
CPT/HCPCS: 97110; 97112; 97161; 97530

== ENCOUNTER 2024-02-07 12:30 | Outpatient (RCR) | payer BC, MEDICAID, SELFPAY ==
--- NOTE | 2024-01-29 08:49 | PCPTNOTE ---
The treatment documented on this account is a continuation of the treatment documented on visit number [id number]. Please see documentation on both accounts to view progress. The Plan of Care has been transitioned and updated within the new V#. I have addressed and agree with the discipline specific Problems, Interventions, and Goals for the current certification period. Completed interventions, outcomes, and problems have been marked as Inactive to facilitate the copying of the Care plan routine for recurring accounts.
--- NOTE | 2024-03-12 14:16 | PTOPDC ---
Assessment and note entered by Nakia Russell, PT, DPT Evaluation Information Assessment Status Discharge - Pt Not Present Diagnosis low back pain ICD-10 Condition Codes (PT) Weakness R53.1,Pain in low back M54.50 Subjective Information Pts father called and cancelled appointment. States pt overall is doing great, has been doing well with the stairs at [employer] as well. Assessment PT Clinical Summary Pt to be d/c'ed to [facility] at this time as he is doing well per family report.
== END 2024-03-12 14:44 | disposition home or self-care (01) ==
LOC: ANHGOSHPT 12:30
PROVIDERS: PCP Pediatrics; Visit Provider Pediatrics
DX: M54.9 Dorsalgia, unspecified (principal)
CPT/HCPCS: 97110; 97530

== ENCOUNTER 2024-03-30 13:23 | Outpatient (CLI) | payer BC, MEDICAID, SELFPAY ==
[2024-03-30 13:41] LABS: Basophils Absolute Auto 0.1 K/mm3 (0.0-0.1); Basophils Percent Auto 0.6 % (0.2-1.2); Hemoglobin 15.5 g/dL (14.0-18.0); Immature Granulocyte Absolute 0.14 K/mm3 (0.00-0.031); Immature Granulocyte Percent A 1.2 % (0-0.5); Immature Platelet Fraction Pct 20.1 % (0.9-11.2); Lymphocytes Absolute Auto 2.05 K/mm3 (0.9-3.2); Lymphocytes Percent Auto 17.9 % (18.3-44.2); Mean Corpuscular HGB Conc 33.7 g/dl (32-36); Mean Corpuscular Hemoglobin 31.6 pg (26-34); Mean Corpuscular Volume 93.7 fl (80-100); Mean Platelet Volume 12.8 fl (7.4-10.4); Monocytes Absolute Auto 0.5 K/mm3 (0.1-0.6); Monocytes Percent Auto 4.7 % (2.6-8.5); Neutrophils Absolute Auto 8.7 K/mm3 (1.3-6.7); Neutrophils Percent Auto 75.6 % (45.5-73.1); Nucleated Red Blood Cells Perc 0.2 % (0.0-0.2); Red Blood Count 4.91 M/mm3 (4.6-6.20); Red Cell Distribution Width 16.4 % (11.5-14.5); White Blood Count 11.5 K/mm3 (4.5-10.0)
[2024-03-30 13:49] LABS: Alanine Aminotransferase 27 U/L (6-50); Alkaline Phosphatase 107 U/L (38-126); Anion Gap 7 mmol/L (4-12); Aspartate Amino Transferase 25 U/L (17-59); Bilirubin,Total 0.4 mg/dL (0.2-1.3); Blood Urea Nitrogen 23 mg/dL (9-20); Calcium 9.3 mg/dL (8.4-10.2); Carbon Dioxide 21 mmol/L (22-30); Chloride 110 mmol/L (98-107); Estimated Glomerular Filt Rate > 60; Glucose 100 mg/dL (65-110); Lactate Dehydrogenase 95 U/L (120-246); Potassium 4.3 mmol/L (3.4-5.0); Sodium 138 mmol/L (137-145)
[2024-03-30 14:16] LABS: Platelet Count Result 25 k/mm3 (150-375)
[2024-03-30 14:18] LABS: Platelet Estimate Decreased (Adequate)
[2024-03-30 14:19] LABS: Howell Jolly Bodies 1+; Schistocytes None Seen
[2024-03-31 06:19] LABS: Haptoglobin 271 mg/dL (43-212)
== END 2024-03-30 13:24 | disposition home or self-care (01) ==
LOC: ANHLAB 13:24
PROVIDERS: PCP Pediatrics; Visit Provider Internal Medicine
DX: D69.6 Thrombocytopenia, unspecified (principal); D69.41 Evans syndrome; D58.9 Hereditary hemolytic anemia, unspecified
CPT/HCPCS: 36415; 80053; 83010; 83615; 85025; 85055; 86880

== ENCOUNTER 2024-04-05 13:47 | Outpatient (CLI) | payer BC, MEDICAID, SELFPAY ==
[2024-04-05 14:39] LABS: Basophils Absolute Auto 0.2 K/mm3 (0.0-0.1); Basophils Percent Auto 0.5 % (0.2-1.2); Eosinophils Percent Auto 0.1 % (0-4.4); Hematocrit 50.6 % (42.0-52.0); Hemoglobin 17.1 g/dL (14.0-18.0); Immature Granulocyte Absolute 0.91 K/mm3 (0.00-0.031); Immature Platelet Fraction Pct 20.7 % (0.9-11.2); Lymphocytes Absolute Auto 2.31 K/mm3 (0.9-3.2); Lymphocytes Percent Auto 7.7 % (18.3-44.2); Mean Corpuscular HGB Conc 33.8 g/dl (32-36); Mean Corpuscular Hemoglobin 31.8 pg (26-34); Mean Corpuscular Volume 94.2 fl (80-100); Mean Platelet Volume 12.7 fl (7.4-10.4); Monocytes Absolute Auto 1.5 K/mm3 (0.1-0.6); Neutrophils Absolute Auto 25.1 K/mm3 (1.3-6.7); Neutrophils Percent Auto 83.7 % (45.5-73.1); Red Blood Count 5.37 M/mm3 (4.6-6.20); Red Cell Distribution Width 16.9 % (11.5-14.5)
[2024-04-05 14:57] LABS: Platelet Count Result 19 k/mm3 (150-375)
== END 2024-04-05 13:48 | disposition home or self-care (01) ==
LOC: ANHGOSHLAB 13:49
PROVIDERS: PCP Pediatrics; Visit Provider Internal Medicine
DX: D69.6 Thrombocytopenia, unspecified (principal)
CPT/HCPCS: 36415; 85025; 85055

== ENCOUNTER 2024-04-10 11:03 | Outpatient (CLI) | payer BC, MEDICAID, SELFPAY ==
[2024-04-10 12:36] LABS: Basophils Absolute Auto 0.2 K/mm3 (0.0-0.1); Basophils Percent Auto 1.1 % (0.2-1.2); Eosinophils Percent Auto 0.2 % (0-4.4); Hematocrit 46.9 % (42.0-52.0); Hemoglobin 15.7 g/dL (14.0-18.0); Immature Granulocyte Absolute 0.61 K/mm3 (0.00-0.031); Immature Granulocyte Percent A 3.7 % (0-0.5); Immature Platelet Fraction Pct 22.4 % (0.9-11.2); Lymphocytes Absolute Auto 2.33 K/mm3 (0.9-3.2); Lymphocytes Percent Auto 14.3 % (18.3-44.2); Mean Corpuscular HGB Conc 33.5 g/dl (32-36); Mean Corpuscular Volume 95.7 fl (80-100); Monocytes Absolute Auto 1.2 K/mm3 (0.1-0.6); Monocytes Percent Auto 7.1 % (2.6-8.5); Neutrophils Percent Auto 73.6 % (45.5-73.1); Red Cell Distribution Width 17.1 % (11.5-14.5); White Blood Count 16.3 K/mm3 (4.5-10.0)
[2024-04-10 13:09] LABS: Platelet Count Result 16 k/mm3 (150-375)
== END 2024-04-10 11:04 | disposition home or self-care (01) ==
LOC: ANHGOSHLAB 11:04
PROVIDERS: PCP Pediatrics; Visit Provider Internal Medicine
DX: D69.6 Thrombocytopenia, unspecified (principal)
CPT/HCPCS: 36415; 85025; 85055

== ENCOUNTER 2024-05-02 14:48 | Outpatient (CLI) | payer BC, MEDICAID, SELFPAY ==
--- OUTSIDE RECORDS SUMMARY | 2024-05-02 15:22 | XMS_ITS | Clinical Summary ---
Author Organization [employer] [facility] Address [address] [place] [address] Care Team Providers Care Cement Finishing Supervisor Name Role Phone Unavailable Primary Care Provider Unavailabl e Medications mometasone (Asmanex HFA) 200 mcg/actuation HFA Aerosol Inhaler Inhale 2 puffs by mouth twice daily 13 Gram 11 01/19/2023 5:07 PM CDT 3 Active sertraline (ZOLOFT) 100 mg tablet Take 1 Tablet (100 mg) by mouth daily. 90 Tablet 1 10/01/2022 3:34 PM CDT 3 Active dexAMETHasone (DECADRON) 4 mg tablet Take 10 Tablets (40 mg) by mouth daily at 8 am. 150 Tablet 10/17/2022 10:31 AM CDT 3 Active predniSONE (DELTASONE) 1 mg tablet Take 1-4 tablets by mouth daily as directed by physician. 90 Tablet 2 11/03/2022 2:05 PM CDT 3 Active predniSONE (DELTASONE) 5 mg tablet Take 1 tablet by mouth every morning; Take 1 tablet daily with 1mg tablets. May give extra dose as needed for adrenal failure. 90 Tablet 2 11/03/2022 2:05 PM CDT 3 Active avatrombopag (Doptelet, 30 tab pack,) 20 mg Tablet tablet Take 1 tablet (20 mg total) by mouth daily. Administer with food. 30 Tablet 11 3 Active imiquimod (Aldara) 5 % Cream in Packet APPLY TO THE AFFECTED AREA(S) THREE TIMES A WEEK FOR 16 WEEKS. 24 Packet 1 03/02/2023 2:48 PM FOREST WORKER 3 Active clindamycin phosphate (CLEOCIN T) 1 % Gel APPLY TO THE AFFECTED AREA(S) TWICE DAILY 30 Gram 2 12/26/2022 1:14 PM CDT 3 Active predniSONE (DELTASONE) 5 mg tablet Take 1 Tablet (5 mg) by mouth daily in the morning with 1 mg tablet. May give extra dose as needed for adrenal failure. 90 Tablet 2 02/01/2023 6:19 PM CDT 3 Active docusate sodium (COLACE) 100 mg capsule Take 1 Capsule (100 mg) by mouth 2 times daily. 60 Capsule 3 02/01/2023 6:19 PM CDT 3 Active amoxicillin (AMOXIL) 500 mg capsule Take 4 tablet/capsule (2000 mg) by mouth once 30 minutes prior to dental cleaning or procedure 4 Capsule 1 03/02/2023 2:45 PM FOREST WORKER 3 Active docusate sodium (COLACE) 100 mg capsule Take one capsule (100 mg) orally twice a day 60 Capsule 3 03/14/2023 12:03 PM FOREST WORKER 3 Active levothyroxine 112 mcg tablet Take one tablet (112 mcg) orally every morning 90 Tablet 2 03/14/2023 12:03 PM FOREST WORKER 3 Active pantoprazole (PROTONIX) 40 mg Tablet, Delayed Release (E.C.) Take one tablet (40 mg) orally daily 60 Tablet 03/14/2023 12:03 PM FOREST WORKER 3 Active sertraline (ZOLOFT) 100 mg tablet Take one tablet (50 mg) orally daily 90 Tablet 3 3 Active hydrocortisone sod succ, PF, (Solu-CORTEF Act-O-Vial, PF,) 100 mg/2 mL Recon Soln Inject 2 mL (100 mg) by intramuscular injection 1 time daily as needed for adrenal crisis. 10 Each 2 04/17/2023 6:40 PM FOREST WORKER 4 Active apixaban (Eliquis) 5 mg tablet Take 1 Tablet (5 mg) by mouth 2 times daily. 30 Tablet 1 04/08/2023 4:00 PM FOREST WORKER 4 Active nirmatrelvir-r itonavir (Paxlovid) 300(150mg x 2)-100 mg oral pack TAKE 2 TABLETS OF NIRMATRELVIR AND 1 TABLET OF RITONAVIR BY MOUTH TWICE DAILY FOR 5 DAYS 30 Each 4 Active predniSONE (DELTASONE) 1 mg tablet TAKE 1-4 TABLETS BY MOUTH DAILY DIRECTED BY PHYSICIAN. TAKE WITH 5 MG DAILY. 120 Tablet 2 04/25/2023 2:35 PM FOREST WORKER 4 Active nirmatrelvir-r itonavir (Paxlovid) 300(150mg x 2)-100 mg oral pack take TWO 150 mg tablets of nirmatrelvir with ONE 100 mg tablet of ritonavir twice daily for 5 days PO 30 Each 4 Active predniSONE (DELTASONE) 5 mg tablet Take 1 Tablet (5 mg) by mouth daily in the morning. Take with 1 mg tablets. May give extra dose as needed for adrenal failure. 90 Tablet 2 04/25/2023 2:35 PM FOREST WORKER 4 Active Immunizations Immunization Administration Dates Next Due (BEXSERO)(10-25 YR) MEN[place] OCCAL RECOMBIANT PROTEIN AND OUTER MEMBRANE VESICLE VACCINE, SEROGROUP B MENB-4C, 2 DOSE IM 01/19/2023 INFLUENZA VACCINE QUADRIVALENT 6 MOS UP PF IM ,02/03/2022 Social History Tobacco Use Types Packs/Day Years Used Date Smoking Tobacco: Never Assessed Sex and Gender Information Value Date Recorded Sex Assigned at Not on file Legal Sex Male 5:32 PM CDT Gender Identity Not on file Sexual Orientation Not on file Plan of Treatment Health Maintenance Due Date Last Done Comments HPV VACCINES (1 - Male 3-dose series) 2012 DTAP/TDAP/TD VACCINES (1 - Tdap) 2016 HEPATITIS B VACCINES (1 of 3 - 19+ 3-dose series) 2016 INFLUENZA VACCINE (#1) 2023 12/29/2022, 2021 Insurance RX [employer] Commercial RX [employer] PLANS (INTERNAL) [facility] [employer] Medicaid
--- OUTSIDE RECORDS SUMMARY | 2024-05-02 15:22 | XMS_ITS | Encounter Summary ---
Author Organization [facility] Address [address] [place] [address] Phone Care Team Providers Care Drier Operator Name Role Phone Zoila Gleason MD Primary Care Provider [phone] Rupal Isabel MD Unavailable [phone] Rekha Osborne MD Unavailable [phone] Encounter Details Date Type Department Care Team (Latest Contact Info) Description 06/02/2022 Orders Only [facility] Scanning, Provider Social History Tobacco Use Types Packs/Day Years Used Date Smoking Tobacco: Never Smokeless Tobacco: Never Alcohol Use Standard Drinks/Week Comments Never 0 (1 standard drink = 0.6 oz pur e alcohol) Social Connection and Isolat ion Panel [NHANES] Answer Date Recorded In a typical week, how many times do you talk on the phone with family, friends, or neighbors? More than three times a week 10/11/2021 How often do you get togethe r with friends or relatives? More than three times a week 10/11/2021 How often do you attend chur ch or jain services? Never 10/11/2021 Do you belong to any clubs o r organizations such as restoration groups, unions, fraternal or athletic groups, or school groups? No 10/11/2021 How often do you attend meet ings of the clubs or organizations you belong to? Never 10/11/2021 Are you , , di vorced, , never , or living with a partner? Never 10/11/2021 AUDIT-C Answer Date Recorded Q1: How often do you have a drink containing alc ohol? Never 11/11/2021 Average Number of Drinks Not on file 022 Frequency of Binge Drinking Not on file 11/01 Overall Financial Resource Strain (CARDIA) Answe r Date Recorded How hard is it for you to pa y for the very basics like food, housing, medical care, and heating? Not hard at all 10/11/2021 Hunger Vital Sign Answer Date Recorded Within the past 12 months, y ou worried that your food would run out before you got the money to buy more. Never true 10/12/19 22 Within the past 12 months, t he food you bought just didn't last and you didn't have money to get more. Never true 10/11/2021 PRAPARE - Transportation Answer Date Re corded In the past 12 months, has l ack of transportation kept you from medical appointments or from getting medications? No 10/01 In the past 12 months, has l ack of transportation kept you from meetings, work, or from getting things needed for daily living? No 10/11/2021 Housing Stability Vital Sign Answer Humza e Recorded In the last 12 months, was t here a time when you were not able to pay the mortgage or rent on time? No 10/11/2021 In the last 12 months, how many places have you lived? 1 10/11/2021 In the last 12 months, was t here a time when you did not have a steady place to sleep or slept in a assisted (including now)? No 10/11/2021 Sex and Gender Information Value Date Recorded Sex Assigned at Not on file Legal Sex Male 1:[address]ULTANT Gender Identity Male 10/02/2023 12:44 PM CDT Sexual Orientation Don't know 11/15/2020 1: 06 PM CDT documented as of this encounter Plan of Treatment Not on file documented as of this encounter Procedures Procedure Name Priority Date/Time Associated Diagnosis Comments SCAN - LABS 06/02/2022 documented in this encounter Results * SCAN - LABS (06/02/2022) us Provider Scanning Final Result documented in this encounter Visit Diagnoses Not on filedocumented in this encounter Additional Health Concerns Infection Onset Date Last Indicated Resolved Time COVID: Suspected 06/26/2022 06/26/2022 06/26/2022 5:59 PM CDT Coronavirus, droplet 06/26/2022 06/26/2022 023 3:06 AM CDT documented as of this encounter Care Teams Drier Operator Relationship Specialty Start Date End Date Zoila Gleason MD [address] [place] [address] PCP - General 09/29/16 Rupal Isabel MD [address] [facility] [address] [place] [address] Referring Physician Allergy and Immunology 01/11/19 Rekha Osborne MD [address] [place] [address] Medical Oncologist/Supervisor Slate Splitting Hematology 05/11/20 documented as of this encounter
--- OUTSIDE RECORDS SUMMARY | 2024-05-02 15:23 | XMS_ITS | Encounter Summary ---
Author Organization [facility] Address [address] [place] [address] Care Team Providers Care Cottage Master Name Role Phone Zoila Gleason MD Primary Care Provider Rupal Isabel MD Unavailable [phone] Rekha Osborne MD Unavailable [phone] Mayuri Lyn RN Unavailable [phone] Michelle ColinW Unavailable [phone] Encounter Details Date Type Department Care Team (Late st Contact Info) Description 11/12/[address] [facility] [address] [place] [address] Aiyana Lovelace RN Social History Tobacco Use Types Packs/Day Years Used Date Smoking Tobacco: Never Smokeless Tobacco: Never Alcohol Use Standard Drinks/Week Comments Never 0 (1 standard drink = 0.6 oz pur e alcohol) AUDIT-C Answer Date Recorded Q1: How often do you have a drink containing alc ohol? Never 09/26/2020 Average Number of Drinks Not on file 021 Q3: How often do you have si x or more drinks on one occasion? Never 09/26/2020 Sex and Gender Information Value Date Recorded Sex Assigned at Not on file Legal Sex Male 1:53 AM CLINICAL MARKETING MANAGER Gender Identity Male 10/02/2023 12:44 PM CDT Sexual Orientation Don't know 11/15/2020 1: 06 PM CDT documented as of this encounter Plan of Treatment Not on file documented as of this encounter Visit Diagnoses Not on filedocumented in this encounter Additional Health Concerns Infection Onset Date Last Indicated Resolved Time COVID: Recovered 11/29/2020 11/29/2020 03/29/2021 3:05 AM CLINICAL MARKETING MANAGER COVID: Suspected 10/09/2021 10/09/2021 10/09/2021 9:37 AM CDT COVID: Suspected 03/06/2022 03/06/2022 03/06/2022 9:30 AM CLINICAL MARKETING MANAGER RSV, droplet 03/06/2022 03/06/2022 03/13/2022 3:05 AM CLINICAL MARKETING MANAGER COVID: Suspected 06/26/2022 06/26/2022 06/26/2022 5:59 PM CDT Coronavirus, droplet 06/26/2022 06/26/2022 023 3:06 AM CDT documented as of this encounter Care Teams Cottage Master Relationship Specialty Start Date End Date Zoila Gleason MD [address] [place] [address] PCP - General 09/29/16 Rupal Isabel MD 10 [facility] [address] [place] [address] Referring Physician Allergy and Immunology 01/11/19 Rekha Osborne MD [address] [place] [address] Medical Oncologist/Cvor Nurse Hematology 05/11/20 Mayuri Lyn, RN [address] [facility] [address] [place] [address] SHOP Outpatient Bioinformatics Computer Scientist 12/04/20 01/04/21 Michelle Colin LCSW [address] [facility] Mailstop [phone] [place] [address] SHOP Outpatient Bioinformatics Computer Scientist 10/19/21 11/16/21 documented as of this encounter
--- OUTSIDE RECORDS SUMMARY | 2024-05-02 15:23 | XMS_ITS | Encounter Summary ---
Author Organization [facility] [employer] [facility] Address [address] [place] [address] Phone Care Team Providers Care Territory Sales Manager Medical Name Role Phone Zoila Gleason MD Primary Care Provider Rupal Isabel MD Unavailable [phone] Rekha Osborne MD Unavailable [phone] Mayuri Lyn RN Unavailable [phone] Michelle Colin QUALITY COMPLIANCE MANAGER Unavailable [phone] Encounter Details Date Type Department Care Team (Latest Contact Info) Description 03/13/2020 Orders Only [facility] Scanning, Provider Social History Tobacco Use Types Packs/Day Years Used Date Smoking Tobacco: Never Smokeless Tobacco: Never Alcohol Use Standard Drinks/Week Comments Never 0 (1 standard drink = 0.6 oz pur e alcohol) AUDIT-C Answer Date Recorded Frequency of Alcohol Consumption Never 06/11/2018 Average Number of Drinks Not on file 019 Frequency of Binge Drinking Not on file 06/01 Sex and Gender Information Value Date Recorded Sex Assigned at Not on file Legal Sex Male 1:53 AM INSTRUMENT PANEL ASSEMBLER Gender Identity Male 10/02/2023 12:44 PM CDT Sexual Orientation Don't know 11/15/2020 1: 06 PM CDT documented as of this encounter Plan of Treatment Not on file documented as of this encounter Procedures Procedure Name Priority Date/Time Associated Diagnosis Comments SCAN - LABS 03/13/2020 documented in this encounter Results * SCAN - LABS (03/13/2020) us Provider Scanning Final Result documented in this encounter Visit Diagnoses Not on filedocumented in this encounter Additional Health Concerns Infection Onset Date Last Indicated Resolved Time COVID: Suspected 04/21/2020 04/21/2020 04/21/2020 11:24 AM INSTRUMENT PANEL ASSEMBLER Respiratory Infection (MICKEY), contact + droplet Comment:Automatically added due to negative COVID-19 result. 04/21/2020 04/21/2020 05/05/2020 3:0 6 AM INSTRUMENT PANEL ASSEMBLER COVID: Suspected 04/21/2020 04/21/2020 04/21/2020 6:48 PM INSTRUMENT PANEL ASSEMBLER COVID: Suspected 09/25/2020 09/25/2020 09/25/2020 10:11 AM CDT Rhino/Enterovirus 09/25/2020 09/25/2020 10/02/2020 3:05 AM CDT COVID: Recovered 11/29/2020 11/29/2020 03/29/2021 3:05 AM INSTRUMENT PANEL ASSEMBLER COVID: Suspected 10/09/2021 10/09/2021 10/09/2021 9:37 AM CDT COVID: Suspected 03/06/2022 03/06/2022 03/06/2022 9:30 AM INSTRUMENT PANEL ASSEMBLER RSV, droplet 03/06/2022 03/06/2022 03/13/2022 3:05 AM INSTRUMENT PANEL ASSEMBLER COVID: Suspected 06/26/2022 06/26/2022 06/26/2022 5:59 PM CDT Coronavirus, droplet 06/26/2022 06/26/2022 023 3:06 AM CDT documented as of this encounter Care Teams Territory Sales Manager Medical Relationship Specialty Start Date End Date Zoila Gleason MD [address] [place] [address] PCP - General 09/29/16 Rupal Isabel MD [address] [place] [address] [address] [place] [address] Referring Physician Allergy and Immunology 01/11/19 Rekha Osborne MD [address] [place] [address] Medical Oncologist/Dry Cleaning Manager Hematology 05/11/20 Mayuri Lyn, RN [address] [facility] [address] [place] [address] LAST Outpatient Production Tester 12/04/20 01/04/21 Michelle Colin LCSW [address] [facility] ([facility]) Mailstop [phone] [place] [address] SHOP Outpatient Production Tester 10/19/21 11/16/21 documented as of this encounter
--- OUTSIDE RECORDS SUMMARY | 2024-05-02 15:23 | XMS_ITS | Encounter Summary ---
Author Organization [facility] [employer] [facility] Address [address] [place] [address] Phone Care Team Providers Care Curb Worker Name Role Phone Zoila Gleason MD Primary Care Provider Rupal Isabel MD Unavailable [phone] Rekha Osborne MD Unavailable [phone] Mayuri Lyn RN Unavailable [phone] Michelle ColinW Unavailable [phone] Encounter Details Date Type Department Care Team (Latest Contact Info) Description 11/25/2020 Orders Only [facility] Scanning, Provider [...] on file Legal Sex Male 1:53 AM SUPERVISOR DRILLING AND SHOOTING Gender Identity Male 10/02/2023 12:44 PM CDT Sexual Orientation Don't know 11/15/2020 1: 06 PM CDT documented as of this encounter Plan of Treatment Not on file documented as of this encounter Procedures Procedure Name Priority Date/Time Associated Diagnosis Comments SCAN - LABS 11/25/2020 documented in this encounter Results * SCAN - LABS (11/25/2020) us Provider Scanning Edited Result - Final documented in this encounter Visit Diagnoses Not on filedocumented in this encounter Additional Health Concerns Infection Onset Date Last Indicated Resolved Time COVID: Recovered 11/29/2020 11/29/2020 03/29/2021 3:05 AM SUPERVISOR DRILLING AND SHOOTING COVID: Suspected 10/09/2021 10/09/2021 10/09/2021 9:37 AM CDT COVID: Suspected 03/06/2022 03/06/2022 03/06/2022 9:30 AM SUPERVISOR DRILLING AND SHOOTING RSV, droplet 03/06/2022 03/06/2022 03/13/2022 3:05 AM SUPERVISOR DRILLING AND SHOOTING COVID: Suspected 06/26/2022 06/26/2022 06/26/2022 5:59 PM CDT Coronavirus, droplet 06/26/2022 06/26/2022 023 3:06 AM CDT documented as of this encounter Care Teams Curb Worker Relationship Specialty Start Date End Date Zoila Gleason MD [address] [place], [place] [id number] PCP - General 09/29/16 Rupal Isabel MD 10 [facility] [address] [place] [address] Referring Physician Allergy and Immunology 01/11/19 Rekha Osborne MD [address] [place] [address] Medical Oncologist/Software Quality Engineer Hematology 05/11/20 Mayuri Lyn, RN 4590 [facility] [address] [place] [address] SHOP Outpatient Skip Pitman 12/04/20 01/04/21 Michelle Colin LCSW 4590 [facility] ([facility]) Mailstop [phone] [place] [address] SHOP Outpatient Skip Pitman 10/19/21 11/16/21 documented as of this encounter
--- OUTSIDE RECORDS SUMMARY | 2024-05-02 15:23 | XMS_ITS | Encounter Summary ---
Author Organization [facility] [employer] Address [address] [place] [address] Phone Care Team Providers Care Executive Vice President Of Sales Name Role Phone Zoila Gleason MD Primary Care Provider [phone] Rupal Isabel MD Unavailable [phone] Rekha Osborne MD Unavailable [phone] Mayuri Lyn RN Unavailable [phone] Michelle Colin ASSEMBLY MACHINE FEEDER Unavailable [phone] Encounter Details Date Type Department Care Team (Latest Contact Info) Description 03/18/2020 Orders Only [facility] Scanning, Provider [...] on file Legal Sex Male 1:53 AM TEXTILE MACHINE MAINTENANCE MECHANIC Gender Identity Male 10/02/2023 12:44 PM CDT Sexual Orientation Don't know 11/15/2020 1: 06 PM CDT documented as of this encounter Plan of Treatment Not on file documented as of this encounter Procedures Procedure Name Priority Date/Time Associated Diagnosis Comments SCAN - LABS 03/18/2020 documented in this encounter Results * SCAN - LABS (03/18/2020) us Provider Scanning Final Result documented in this encounter Visit Diagnoses Not on filedocumented in this encounter Additional Health Concerns Infection Onset Date Last Indicated Resolved Time COVID: Suspected 04/21/2020 04/21/2020 04/21/2020 11:24 AM TEXTILE MACHINE MAINTENANCE MECHANIC Respiratory Infection (MICKEY), contact + droplet Comment:Automatically added due to negative COVID-19 result. 04/21/2020 04/21/2020 05/05/2020 3:0 6 AM TEXTILE MACHINE MAINTENANCE MECHANIC COVID: Suspected 04/21/2020 04/21/2020 04/21/2020 6:48 PM TEXTILE MACHINE MAINTENANCE MECHANIC COVID: Suspected 09/25/2020 09/25/2020 09/25/2020 10:11 AM CDT Rhino/Enterovirus 09/25/2020 09/25/2020 10/02/2020 3:05 AM CDT COVID: Recovered 11/29/2020 11/29/2020 03/29/2021 3:05 AM TEXTILE MACHINE MAINTENANCE MECHANIC COVID: Suspected 10/09/2021 10/09/2021 10/09/2021 9:37 AM CDT COVID: Suspected 03/06/2022 03/06/2022 03/06/2022 9:30 AM TEXTILE MACHINE MAINTENANCE MECHANIC RSV, droplet 03/06/2022 03/06/2022 03/13/2022 3:05 AM TEXTILE MACHINE MAINTENANCE MECHANIC COVID: Suspected 06/26/2022 06/26/2022 06/26/2022 5:59 PM CDT Coronavirus, droplet 06/26/2022 06/26/2022 023 3:06 AM CDT documented as of this encounter Care Teams Executive Vice President Of Sales Relationship Specialty Start Date End Date Zoila Gleason MD [address] [place] [address] PCP - General 09/29/16 Rupal Isabel MD [address] [place] [address] [address] [place] [address] Referring Physician Allergy and Immunology 01/11/19 Rekha Osborne MD [address] [place] [address] Medical Oncologist/Medical Historian Hematology 05/11/20 Mayuri Lyn, RN 4590 [facility] [address] [place] [address] LAST Outpatient [place] Worker 12/04/20 01/04/21 Michelle Colin LCSW 4590 [facility] ([facility]) Mailstop [phone] [place] [address] SHOP Outpatient [place] Worker 10/19/21 11/16/21 documented as of this encounter
--- OUTSIDE RECORDS SUMMARY | 2024-05-02 15:23 | XMS_ITS | Encounter Summary ---
Author Organization [facility] Address [address] [place] [address] Phone Care Team Providers Care Purification Operator Name Role Phone Zoila Gleason MD Primary Care Provider [phone] Rupal Isabel MD Unavailable [phone] Rekha Osborne MD Unavailable [phone] Mayuri Lyn RN Unavailable [phone] Michelle ColinW Unavailable [phone] Encounter Details Date Type Department Care Team (Latest Contact Info) Description 01/04/2021 Orders Only [facility] Scanning, Provider Social History Tobacco Use [...] neighbors? More than three times a week 12/10/2020 How often do you get togethe r with friends or relatives? More than three times a week 12/10/2020 Attends Islam Services Not on file 12/10 Active Member of Clubs or Organizations Not on f ile 12/10/2020 Attends Club or Organization Meetings Not on vasile e 12/10/2020 Are you , , di vorced, , never , or living with a partner? Never 12/10/2020 AUDIT-C Answer Date Recorded Q1: How often do you have a drink containing alc ohol? Never 12/31/2020 Average Number of Drinks Not on file 021 Q3: How often do you have si x or more drinks on one occasion? Never 12/31/2020 Overall Financial Resource Strain (CARDIA) Answe r Date Recorded How hard is it for you to pa y for the very basics like food, housing, medical care, and heating? Not hard at all 12/10/2020 Hunger Vital Sign Answer Date Recorded Within the past 12 months, y ou worried that your food would run out before you got the money to buy more. Never true 12/11/19 21 Within the past 12 months, t he food you bought just didn't last and you didn't have money to get more. Never true 12/10/2020 PRAPARE - Transportation Answer Date Re corded In the past 12 months, has l ack of transportation kept you from medical appointments or from getting medications? No 12/2020 In the past 12 months, has l ack of transportation kept you from meetings, work, or from getting things needed for daily living? No 12/10/2020 Housing Stability Vital Sign Answer Humza e Recorded In the last 12 months, was t here a time when you were not able to pay the mortgage or rent on time? No 12/10/2020 In the last 12 months, how many places have you lived? 1 12/10/2020 In the last 12 months, was t here a time when you did not have a steady place to sleep or slept in a snf (including now)? 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 Gender Identity Male 10/02/2023 12:44 PM CDT Sexual Orientation Don't know 11/15/2020 1: 06 PM CDT documented as of this encounter Plan of Treatment Not on file documented as of this encounter Procedures Procedure Name Priority Date/Time Associated Diagnosis Comments SCAN - LABS 01/04/2021 documented in this encounter Results * SCAN - LABS (01/04/2021) us Provider Scanning Final Result documented in this encounter Visit Diagnoses Not on filedocumented in this encounter Additional Health Concerns Infection Onset Date Last Indicated Resolved Time COVID: Recovered 11/29/2020 11/29/2020 03/29/2021 3:05 AM INSPECTOR PACKER GLASS CONTAINER COVID: Suspected 10/09/2021 10/09/2021 10/09/2021 9:37 AM CDT COVID: Suspected 03/06/2022 03/06/2022 03/06/2022 9:30 AM INSPECTOR PACKER GLASS CONTAINER RSV, droplet 03/06/2022 03/06/2022 03/13/2022 3:05 AM INSPECTOR PACKER GLASS CONTAINER COVID: Suspected 06/26/2022 06/26/2022 06/26/2022 5:59 PM CDT Coronavirus, droplet 06/26/2022 06/26/2022 023 3:06 AM CDT documented as of this encounter Care Teams Purification Operator Relationship Specialty Start Date End Date Zoila Gleason MD [address] [place] [address] PCP - General 09/29/16 Rupal Isabel MD 10 [facility] [address] [place] [address] Referring Physician Allergy and Immunology 01/11/19 Rekha Osborne MD [address] [place] [address] Medical Oncologist/Criminology Teacher Hematology 05/11/20 Mayuri Lyn, RN 4590 [facility] [address] [place] [address] SHOP Outpatient Medical Clinic Manager 12/04/20 01/04/21 Michelle Colin LCSW 4590 [facility] ([facility] Mailstop [phone] [place] [address] SHOP Outpatient Medical Clinic Manager 10/19/21 11/16/21 documented as of this encounter
--- OUTSIDE RECORDS SUMMARY | 2024-05-02 15:23 | XMS_ITS | Encounter Summary ---
Author Organization [facility] [employer] [facility] Address [address] [place] [address] Phone Care Team Providers Care Manager Of Care Name Role Phone Zoila Gleason MD Primary Care Provider Rupal Isabel MD Unavailable [phone] Rekha Osborne MD Unavailable [phone] Mayuri Lyn RN Unavailable [phone] Michelle Colin MANUFACTURING PLANT MANAGER Unavailable [phone] Encounter Details Date Type Department Care Team (Latest Contact Info) Description 03/04/2020 Orders Only [facility] Scanning, Provider [...] on file Legal Sex Male 1:53 AM ANESTHESIA TECH Gender Identity Male 10/02/2023 12:44 PM CDT Sexual Orientation Don't know 11/15/2020 1: 06 PM CDT documented as of this encounter Plan of Treatment Not on file documented as of this encounter Procedures Procedure Name Priority Date/Time Associated Diagnosis Comments SCAN - LABS 03/04/2020 documented in this encounter Results * SCAN - LABS (03/04/2020) us Provider Scanning Final Result documented in this encounter Visit Diagnoses Not on filedocumented in this encounter Additional Health Concerns Infection Onset Date Last Indicated Resolved Time COVID: Suspected 04/21/2020 04/21/2020 04/21/2020 11:24 AM ANESTHESIA TECH Respiratory Infection (MICKEY), contact + droplet Comment:Automatically added due to negative COVID-19 result. 04/21/2020 04/21/2020 05/05/2020 3:0 6 AM ANESTHESIA TECH COVID: Suspected 04/21/2020 04/21/2020 04/21/2020 6:48 PM ANESTHESIA TECH COVID: Suspected 09/25/2020 09/25/2020 09/25/2020 10:11 AM CDT Rhino/Enterovirus 09/25/2020 09/25/2020 10/02/2020 3:05 AM CDT COVID: Recovered 11/29/2020 11/29/2020 03/29/2021 3:05 AM ANESTHESIA TECH COVID: Suspected 10/09/2021 10/09/2021 10/09/2021 9:37 AM CDT COVID: Suspected 03/06/2022 03/06/2022 03/06/2022 9:30 AM ANESTHESIA TECH RSV, droplet 03/06/2022 03/06/2022 03/13/2022 3:05 AM ANESTHESIA TECH COVID: Suspected 06/26/2022 06/26/2022 06/26/2022 5:59 PM CDT Coronavirus, droplet 06/26/2022 06/26/2022 023 3:06 AM CDT documented as of this encounter Care Teams Manager Of Care Relationship Specialty Start Date End Date Zoila Gleason MD [address] [place] [address] PCP - General 09/29/16 Rupal Isabel MD [address] [place] [address] [address] [place] [address] Referring Physician Allergy and Immunology 01/11/19 Rekha Osborne MD [address] [place] [address] Medical Oncologist/Able Seaman Hematology 05/11/20 Mayuri Lyn, RN 4590 [facility] [address] [place] [address] LAST Outpatient Cleaning Team Member 12/04/20 01/04/21 Michelle Colin LCSW 4590 [facility] ([facility]) Mailstop [phone] [place] [address] SHOP Outpatient Cleaning Team Member 10/19/21 11/16/21 documented as of this encounter
--- OUTSIDE RECORDS SUMMARY | 2024-05-02 15:23 | XMS_ITS | Encounter Summary ---
Author Organization [facility] Address [address] [place] [address] Care Team Providers Care Operations Expert Name Role Phone Zoila Gleason MD Primary Care Provider Rupal Isabel MD Unavailable [phone] Rekha Osborne MD Unavailable Mayuri Lyn RN Unavailable Michelle Colin LCSW Unavailable Encounter Details Date Type Department Care Team (Late st Contact Info) Description 03/31/2020 Telephone [facility] [place] [address] Wendy Storm, [place] Social History Tobacco Use Types Packs/Day Years [...] on file Legal Sex Male 1:53 AM RAILROAD 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 04/21/2020 04/21/2020 05/05/2020 3:0 6 AM RAILROAD BRAKEMAN COVID: Suspected 04/21/2020 04/21/2020 04/21/2020 6:48 PM RAILROAD BRAKEMAN COVID: Suspected 09/25/2020 09/25/2020 09/25/2020 10:11 AM CDT Rhino/Enterovirus 09/25/2020 09/25/2020 10/02/2020 3:05 AM CDT COVID: Recovered 11/29/2020 11/29/2020 03/29/2021 3:05 AM RAILROAD BRAKEMAN COVID: Suspected 10/09/2021 10/09/2021 10/09/2021 9:37 AM CDT COVID: Suspected 03/06/2022 03/06/2022 03/06/2022 9:30 AM RAILROAD BRAKEMAN RSV, droplet 03/06/2022 03/06/2022 03/13/2022 3:05 AM RAILROAD BRAKEMAN COVID: Suspected 06/26/2022 06/26/2022 06/26/2022 5:59 PM CDT Coronavirus, droplet 06/26/2022 06/26/2022 023 3:06 AM CDT documented as of this encounter Care Teams Operations Expert Relationship Specialty Start Date End Date Zoila Gleason MD [address] [place] [address] PCP - General 09/29/16 Rupal Isabel MD 10 [facility] [address] [place] [address] Referring Physician Allergy and Immunology 01/11/19 Rekha Osborne MD [address] [place] [address] Medical Oncologist/Editorial Writer Hematology 05/11/20 Myauri Lyn, RN 45[address] [facility] [address] [place] [address] LAST Outpatient Practice Billing Associate 12/04/20 01/04/21 Michelle Colin LCSW 4590 [facility] ([facility] Mailstop [phone] [place] [address] LAST Outpatient Practice Billing Associate 10/19/21 11/16/21 documented as of this encounter
--- OUTSIDE RECORDS SUMMARY | 2024-05-02 15:23 | XMS_ITS | Encounter Summary ---
Author Organization [facility] Address [address] [place] [address] Phone Care Team Providers Care Recovery Coach Name Role Phone Zoila Gleason MD Primary Care Provider Rupal Isabel MD Unavailable [phone] Rekha Osborne MD Unavailable [phone] Mayuri Lyn RN Unavailable [phone] Michelle ColinW Unavailable [phone] Encounter Details Date Type Department Care Team (Latest Contact Info) Description 03/23/2020 Orders Only [facility] Scanning, Provider [...] on file Legal Sex Male 1:53 AM RAMPMAN Gender Identity Male 10/02/2023 12:44 PM CDT Sexual Orientation Don't know 11/15/2020 1: 06 PM CDT documented as of this encounter Plan of Treatment Not on file documented as of this encounter Procedures Procedure Name Priority Date/Time Associated Diagnosis Comments SCAN - LABS 03/23/2020 documented in this encounter Results * SCAN - LABS (03/23/2020) us Provider Scanning Final Result documented in this encounter Visit Diagnoses Not on filedocumented in this encounter Additional Health Concerns Infection Onset Date Last Indicated Resolved Time COVID: Suspected 04/21/2020 04/21/2020 04/21/2020 11:24 AM RAMPMAN Respiratory Infection (MICKEY), contact + droplet Comment:Automatically added due to negative COVID-19 result. 04/21/2020 04/21/2020 05/05/2020 3:0 6 AM RAMPMAN COVID: Suspected 04/21/2020 04/21/2020 04/21/2020 6:48 PM RAMPMAN COVID: Suspected 09/25/2020 09/25/2020 09/25/2020 10:11 AM CDT Rhino/Enterovirus 09/25/2020 09/25/2020 10/02/2020 3:05 AM CDT COVID: Recovered 11/29/2020 11/29/2020 03/29/2021 3:05 AM RAMPMAN COVID: Suspected 10/09/2021 10/09/2021 10/09/2021 9:37 AM CDT COVID: Suspected 03/06/2022 03/06/2022 03/06/2022 9:30 AM RAMPMAN RSV, droplet 03/06/2022 03/06/2022 03/13/2022 3:05 AM RAMPMAN COVID: Suspected 06/26/2022 06/26/2022 06/26/2022 5:59 PM CDT Coronavirus, droplet 06/26/2022 06/26/2022 023 3:06 AM CDT documented as of this encounter Care Teams Recovery Coach Relationship Specialty Start Date End Date Zoila Gleason MD [address] [place] [address] PCP - General 09/29/16 Rupal Isabel MD [address] [place] [address] [address] [place] [address] Referring Physician Allergy and Immunology 01/11/19 Rekha Osborne MD [address] [place] [address] Medical Oncologist/Facilities Flight Check Pilot Hematology 05/11/20 Mayuri Lyn, RN 4590 [facility] [address] [place] [address] LAST Outpatient Hall Worker 12/04/20 01/04/21 Michelle Colin LCSW 4590 [facility] ([facility] Mailstop [phone] [place] [address] SHOP Outpatient Hall Worker 10/19/21 11/16/21 documented as of this encounter
--- OUTSIDE RECORDS SUMMARY | 2024-05-02 15:23 | XMS_ITS | Encounter Summary ---
Author Organization [facility] Address [address] [place] [address] Phone Care Team Providers Care Pyrotechnic Assembler Name Role Phone Zoila Gleason MD Primary Care Provider [phone] Rupal Isabel MD Unavailable [phone] Rekha Osborne MD Unavailable [phone] Michelle Colin [facility] Unavailable [phone] Encounter Details Date Type Department Care Team (Latest Contact Info) Description 07/20/2021 Orders Only [facility] Scanning, Provider [...] than three times a week 12/10/2020 Attends Sikh Services Not on file 12/10 Active Member [...] place to sleep or slept in a nursing home (including now)? No 12/10/2020 Sex and Gender Information Value Date Recorded Sex Assigned at Not on file Legal Sex Male 1:53 AM SALESPERSON PARTS Gender Identity Male 10/02/2023 12:44 PM CDT Sexual Orientation Don't know 11/15/2020 1: 06 PM CDT documented as of this encounter Plan of Treatment Not on file documented as of this encounter Procedures Procedure Name Priority Date/Time Associated Diagnosis Comments SCAN - LABS 07/20/2021 documented in this encounter Results * SCAN - LABS (07/20/2021) us Provider Scanning Final Result documented in this encounter Visit Diagnoses Not on filedocumented in this encounter Additional Health Concerns Infection Onset Date Last Indicated Resolved Time COVID: Suspected 10/09/2021 10/09/2021 10/09/2021 9:37 AM CDT COVID: Suspected 03/06/2022 03/06/2022 03/06/2022 9:30 AM SALESPERSON PARTS RSV, droplet 03/06/2022 03/06/2022 03/13/2022 3:05 AM SALESPERSON PARTS COVID: Suspected 06/26/2022 06/26/2022 06/26/2022 5:59 PM CDT Coronavirus, droplet 06/26/2022 06/26/2022 023 3:06 AM CDT documented as of this encounter Care Teams Pyrotechnic Assembler Relationship Specialty Start Date End Date Zoila Gleason MD [address] [place] [address] PCP - General 09/29/16 Rupal Isabel MD [address] [facility] [address] [place] [address] Referring Physician Allergy and Immunology 01/11/19 Rekha Osborne MD [address] [place], [place] [address] Medical Oncologist/Purchasing Clerk Hematology 05/11/20 Michelle Colin, SHOP ASSISTANT 4590 [facility] Mailstop [phone] [place] [address] SHOP Outpatient Race Car Driver 10/19/21 11/16/21 documented as of this encounter
--- OUTSIDE RECORDS SUMMARY | 2024-05-02 15:23 | XMS_ITS | Encounter Summary ---
Author Organization [facility] [employer] [facility] Address [address] [place] [address] Phone Care Team Providers Care Roll Plugger Name Role Phone Zoila Gleason MD Primary Care Provider Rupal Isabel MD Unavailable [phone] Rekha Osborne MD Unavailable [phone] Mayuri Lyn RN Unavailable [phone] Michelle Colin INSULATION PACKER Unavailable [phone] Encounter Details Date Type Department Care Team (Latest Contact Info) Description 01/22/2020 Orders Only [facility] Scanning, Provider [...] on file 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 Gender Identity Male 10/02/2023 12:44 PM CDT Sexual Orientation Don't know 11/15/2020 1: 06 PM CDT documented as of this encounter Plan of Treatment Not on file documented as of this encounter Procedures Procedure Name Priority Date/Time Associated Diagnosis Comments SCAN - LABS 01/22/2020 documented in this encounter Results * SCAN - LABS (01/22/2020) us Provider Scanning Final Result documented in this encounter Visit Diagnoses Not on filedocumented in this encounter Additional Health Concerns Infection Onset Date Last Indicated Resolved Time COVID: Recovered Comment:Added based on recent COVID infection. 11/04/2019 11/20/2019 03/03/2020 3:[address] COVID: Suspected 04/21/2020 04/21/2020 04/21/2020 11:24 AM COMMERCIAL TRUCK DRIVER Respiratory Infection (MICKEY), contact + droplet Comment:Automatically added due to negative COVID-19 result. 04/21/2020 04/21/2020 05/05/2020 3:0 6 AM [employer]ERCIAL TRUCK DRIVER COVID: Suspected 04/21/2020 04/21/2020 04/21/2020 6:48 PM [employer]ERCIAL TRUCK DRIVER COVID: Suspected 09/25/2020 09/25/2020 09/25/2020 10:11 AM CDT Rhino/Enterovirus 09/25/2020 09/25/2020 10/02/2020 3:05 AM CDT COVID: Recovered 11/29/2020 11/29/2020 03/29/2021 3:05 AM COMMERCIAL TRUCK DRIVER COVID: Suspected 10/09/2021 10/09/2021 10/09/2021 9:37 AM CDT COVID: Suspected 03/06/2022 03/06/2022 03/06/2022 9:30 AM COMMERCIAL TRUCK DRIVER RSV, droplet 03/06/2022 03/06/2022 03/13/2022 3:05 AM COMMERCIAL TRUCK DRIVER COVID: Suspected 06/26/2022 06/26/2022 06/26/2022 5:59 PM CDT Coronavirus, droplet 06/26/2022 06/26/2022 023 3:06 AM CDT documented as of this encounter Care Teams Roll Plugger Relationship Specialty Start Date End Date Zoila Gleason MD [address] [place] [address] PCP - General 09/29/16 Rupal Isabel MD [address] [place] [address] [address] [place] [address] Referring Physician Allergy and Immunology 01/11/19 Rekha Osborne MD [address] [place] [address] Medical Oncologist/Radio Repair Teacher Hematology 05/11/20 Mayuri Lyn, RN [address] [facility] [address] [place] [address] [employer] 12/04/20 01/04/21 Michelle Colin [facility] [address] [facility] ([facility] [place] Mailstop [phone] [place] [address] [employer] Out[employer] T[employer] 10/19/21 11/16/21 documented as of this encounter
--- OUTSIDE RECORDS SUMMARY | 2024-05-02 15:23 | XMS_ITS | Referral Summary ---
Author Organization [facility] ospital Address [address] [place] [address] Care Team Providers Care Acid Retort Operator Name Role Phone Zoila Gleason MD Primary Care Provider [phone] Rupal Isabel MD Unavailable Rekha Osborne MD Unavailable [phone] Encounters Date Type Department Care Team Description 04/25/2024 11:30 AM SILVERWARE ASSEMBLER Lab [facility] at [address] [address] AIHA (autoimmune hemolytic anemia) (HCC); Chronic ITP (idiopathic thrombocytopenia) (HCC) 04/25/2024 8:30 AM SILVERWARE ASSEMBLER Lab [facility] Oncology [address] [place] [address] [address] [place] [address] 04/25/2024 9:00 AM SILVERWARE ASSEMBLER Office Visit [facility] Hematology [address] [facility] Medical Office Building 2 [address] [place] [phone] Rekha Osborne MD AIHA (autoimmune hemolytic anemia) (HCC) (Primary Dx); Chronic ITP (idiopathic thrombocytopenia) (HCC); CVID (common variable immunodeficiency) (HCC); High risk medication use 04/11/2024 Orders Only [facility] Hematology [address] [facility] Floor 6 [place] [phone] Saniya Alberts RN 04/09/[address] 5th [place] [address] [place] [address] Kobi Og MD 04/01/2024 Telephone [facility] Hematology [address] [facility] Floor 6 [place] [phone] Saniya Alberts RN 03/19/2024 Telephone [facility] Bone Health [address] [facility] Medical Office Building 2 [address] [place] [phone] Kobi Og MD 03/12/2024 3:40 PM SILVERWARE ASSEMBLER - 03/12/2024 11:59 PM SILVERWARE ASSEMBLER Hospital Encounter [facility] [address] [place] [phone] Osteoporosis without current pathological fracture, unspecified osteoporosis type Discharge Disposition: Discharge to home or self care 03/12/2024 6:15 PM SILVERWARE ASSEMBLER Lab [facility] [address] [place] [phone] Osteoporosis without current pathological fracture, unspecified osteoporosis type 03/12/2024 2:34 PM SILVERWARE ASSEMBLER - 03/12/2024 11:59 PM SILVERWARE ASSEMBLER Hospital Encounter [facility] ([facility]) [address] [place] [address] Mild persistent asthma without complication Discharge Disposition: Discharge to home or self care 03/12/2024 2:30 PM SILVERWARE ASSEMBLER Office Visit [facility] Pulmonary [address] [facility] 8th [place] [address] [place] [address] Jam Sands MD Mild persistent asthma without complication (Primary Dx); Lymphocytic interstitial pneumonia (CMS/HCC) (HCC) 03/05/2024 9:20 AM SILVERWARE ASSEMBLER Office Visit [facility] [address] [facility] 5th [place] [address] [place] [address] Kobi Og MD Osteoporosis without current pathological fracture, unspecified osteoporosis type (Primary Dx); Arpita's syndrome (CMS/HCC) (HCC); Adrenal insufficiency (HCC); Hypogonadism in male 02/21/2024 Telephone [facility] Allergy and Immunology [address] [facility] [address] [place] [address] Elodia Johns RN 02/15/2024 3:05 PM SILVERWARE ASSEMBLER Lab [facility] at the [address] [phone] CVID (common variable immunodeficiency) (HCC) 02/15/2024 2:00 PM SILVERWARE ASSEMBLER Office Visit [facility] Allergy and Immunology [address] [place] [address] [address] [place] [address] Rupal Isabel MD CVID (common variable immunodeficiency) ([facility]) (Primary Dx); Arpita's syndrome (CMS/HCC) (HCC) 01/31/2024 Orders Only [facility] Endocrinology Metabolism and Lipid [address] [place] [address] Medical Office Building [address], [address] [place] [address] Jesenia Cottrell MD Arpita's syndrome (CMS/HCC) ([facility]) (Primary Dx); Adrenal insufficiency ([facility]); Osteoporosis without current pathological fracture, unspecified osteoporosis type; Hypogonadism in male from Last 3 Months Allergies Active Allergy Reactions Criticality Noted Date Comments Gluten Unknown 04/16/2018 Celiacs Medications multivitamin tablet,chewableIn dications:Vitamin Deficiency,Vitami n Deficiency Prevention Take 1 tablet/chew tab by mouth nightly Active folic acid (FOLVITE) 800 mcg tabletIndications :Folate Deficiency Take 0.5 tablets (400 mcg total) by mouth every morning 0.5 tablet Active albuterol HFA (PROVENTIL HFA,VENTOLIN HFA,PROAIR HFA) 90 mcg/actuation inhalerIndication s:Acute Asthma Attack Inhale 2 puffs every 4 (four) hours as needed for wheezing or shortness of breath Active syringe with needle 3 mL 23 gauge x 1 1/2 syringe 1 Syringe as needed (for solu-cortef) 5 Syringe 11/11/19 20 Active EPINEPHrine 0.3 mg/0.3 mL auto-injection syringeIndication s:Anaphylaxis,rel ated to immune globulin Inject 0.3 mL (0.3 mg total) into the muscle as instructed as needed for anaphylaxis Never used. 07/07/19 21 Active OptiChamber Anju [facility] spacer USE WITH INHALER DIRECTED 09/25/19 21 Active ergocalciferol (VITAMIN D) 50,000 unit capsuleIndication s:Vitamin D Deficiency Take 1 capsule (50,000 Units total) by mouth once a week Sundays. Active IgG-hyaluronidase ,recombinant 10 gram /100 mL (10 %) solution Inject 50 g under the skin every 4 (four) weeks 500 mL 3 01/06/20 21 Active valACYclovir (VALTREX) 1 gram tabletIndications :shingles Take 1 tablet (1,000 mg total) by mouth as needed 09/01/19 22 Active albuterol 2.5 mg /3 mL (0.083 %) nebulizer solutionIndicatio ns:Acute Asthma Attack Take 3 mL (2.5 mg total) by nebulization every 4 (four) hours as needed for wheezing or shortness of breath 11/16/19 22 Active sertraline (ZOLOFT) 100 mg tabletIndications :Anxiety with Depression Take 1 tablet (100 mg total) by mouth every morning 0.5 tablet 02/04/20 22 Active imiquimod (ALDARA) 5 % creamIndications: skin issues Apply 1 packet topically as needed 03/02/20 23 Active levothyroxine (SYNTHROID) 112 mcg tabletIndications :hypothyroidism Take 1 tablet (112 mcg total) by mouth quiller hand before breakfast 03/10/20 23 Active Solu-CORTEF Act-O-Vial, PF, 100 mg/2 mL recon soln INJECT 2 MILLILITERS (100MG) INTRAMUSCULARLY DAILY NEEDED FOR ADRENAL CRISIS Active ondansetron ODT (ZOFRAN-ODT) 4 mg disintegrating tablet DISSOLVE 1 TABLET IN MOUTH EVERY 8 HOURS NEEDED FOR NAUSEA AND VOMITING 07/18/19 24 Active prednisoLONE (MILLIPRED) 5 mg tablet Take 1 tablet (5 mg total) by mouth daily 10/09/19 24 Active Breztri Aerosphere 160-9-4.8 mcg/actuation inhaler Inhale 1 puff 2 (two) times a day 12/08/19 24 Active docusate sodium (COLACE) 100 mg capsuleIndication s:constipation Take 1 capsule (100 mg total) by mouth daily after dinner Active psyllium (KONSYL) powder Take 1 Application by mouth daily 1 tsp Active prasterone, dhea, 25 mg capsule Take 1 capsule (25 mg total) by mouth daily with breakfast Active mirtazapine (REMERON) 15 mg tablet 03/02/20 24 Active Asmanex HFA 200 mcg/actuation inhaler Inhale 2 puffs 2 (two) times a day 02/17/20 24 Active dexAMETHasone (DECADRON) 4 mg tablet TAKE 10 TABLETS (40MG) BY MOUTH DAILY NEEDED FOR ITP FOR 4 DAYS 04/01/20 24 Active clonazePAM (KlonoPIN) 0.5 mg tablet 04/04/19 25 Active predniSONE (DELTASONE) 1 mg tablet PLEASE SEE ATTACHED FOR DETAILED DIRECTIONS 04/02/20 24 Active Active Problems Problem Noted Date Diagnosed Date Gram-negative bacteremia 12/17/2023 Assessment & Plan (12/19/2023 1:54 PM CDT): 1-2 weeks of respiratory symptoms throughout family which was resolving prior to having acute onset fever/rigors on 12/16/23. OSH blood cultures as of 12/17/23 demonstrating aerobic and anerobic growing GNB. Prior hx notable asplenia, CVID, and chronic steroid use for AI. He previously had idiopathic bacteremia 09/2023 w C. Freundii treated with Cefepime (daniel scan and TTE w/o source). C/f repeated infection or ongoing infection with unrecognized nidus. CXR and UA unrevealing on admission. Has small skin wounds that are all scabbed over/healing that could represent portal of entry, though, would expect GPCs. Father reports that sometimes his hygiene is not great and may self inoculate after stooling. -As of 12/18/23 at 1300, per [facility] [phone] - E. Coli. -Repeat blood cultures NGTD -Received cefepime; changed to cefuroxime to complete a 7 day course. Source is suspected to be UTI -TTE neg for vegetations Leukocytosis 12/17/2023 Assessment & Plan (12/17/2023 8:50 PM CDT): CBC at [facility] 12/15 WBC 20.5 (81% neutrophils). Ddx includes bacteremia and stress dose steroids. -Treat bacteremia as discussed elsewhere. Dental caries extending into pulp 03/14/2023 Residual ventricular septal defect (VSD) followi ng repair 03/03/2023 Status post atrial septal defect repair 03/03/20 Acute bronchitis due to other specified organism s 02/09/2023 Preoperative clearance 01/23/2023 Pulmonary hypertension 01/23/2023 FIDEL (iron deficiency anemia) 12/20/2022 Elevated liver enzymes 08/20/2022 Assessment & Plan (08/20/2022 2:00 PM CDT): AST 100, ALT 90, alk phos 180 (all are chronically elevated but now slightly above baseline, likely in the setting of sepsis/adrenal crisis). 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 No cytopenias currently. Has leukocytosis. -Treat AI and leukocytosis as discussed elsewhere. Assessment & Plan (08/20/2022 2:02 PM CDT): c/b ITP s/p splenectomy (01/2021) and autoimmune hemolytic anemia -Receives Ritux (next due October 2022); f/u with Hematology outpatient Asthma 08/20/2022 Assessment & Plan (08/20/2022 2:03 PM CDT): No longer on controller inhalers; not in exacerbation -Cont albuterol PRN Sepsis 08/20/2022 Assessment & Plan (08/21/2022 11:35 AM CDT): P/w suspected aspiration event 08/19 evening at dinner with fevers, N/V, and hypotension 08/20. T-38.1, HR 107->80, WBC 18.3 (although chronically elevated). RVP negative, CXR with bilateral opacities concerning for pneumonia. No other localizing signs or symptoms (although full ROS not obtained as patient is limited historian). Will treat for presumed aspiration pneumonia -Patient's father states he usually does well with CAP treatment when he had aspiration in the past. Will continue with ceftriaxone (08/20-) and azithromycin (08/20-) but broaden if needed. Will keep azithromycin IV until he reliable tolerates PO - most likely pneumonitis but cannot rule out aspiration, will treat with augmentin for an additional 4 days, stop cef/azithromycin. Father has medications at home and does not need any refills. Education provided and patient's father is understanding. Hypothyroidism 08/20/2022 Assessment & Plan (12/17/2023 8:44 PM CDT): Continue Synthroid. Assessment & Plan (08/20/2022 2:13 PM CDT): TSH 0.79 -Cont synthroid Hypotension, unspecified hypotension type 2021 Transaminitis 10/18/2021 Myocardial infarction due to demand ischemia ([facility] S/HCC) 10/18/2021 Symptomatic anemia 10/09/2021 Small bowel stricture 09/27/2021 Assessment & Plan (09/27/2021 2:54 PM CDT): See gastric outlet obstruction Gastric outlet obstruction 09/26/2021 Assessment & Plan (09/27/2021 2:55 PM CDT): Patient presented with vomiting. CT at OSH concerning for GOO, possibly due to marked abdominal lymphadenopathy, also noted are large stool burden. 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 - over read of CT scan and small bowel follow through c/w stenosis/likely stricture in small bowel. Small bowel follow through confirmed findings - surgery consult: conservative management - patient doing symptomatically much better, tolerating diet - small, soft, frequent meals - consider referral to GI for dilation if recurrent symptoms Assessment & Plan (09/26/2021 1:34 PM CDT): -CT at OSH concerning for GOO, possibly due to marked abdominal lymphadenopathy, also noted are large stool burden. 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 -Will hold off on NG at this time and continue IVF, continue clear diet with parent as tolerates, will and bowel regimen. -Obtain upper GI series. -Low concern for infectious etiology, patient non-toxic appearing and appears at baseline per parent, will hold off on antibiotic coverage. Abdominal lymphadenopathy 09/26/2021 Assessment & Plan (09/27/2021 2:48 PM CDT): CT at OSH showed marked abdominal lymphadenopathy, retroperitoneal lymphadenopathy reported on CT a/p on 09/25/20 but described as mild at the time and improving. - over-read of OSH CT showing slightly increased lymphadenopathy , read as possibly c/w known CVID Assessment & Plan (09/26/2021 1:33 PM CDT): -CT at OSH showed marked abdominal lymphadenopathy, retroperitoneal lymphadenopathy reported on CT a/p on 09/25/20 but described as mild at the time and improving. -Possibly secondary to Arpita's syndrome following splenectomy vs concern for new lymphomatous process. OSH CT uploaded for comparison. -Hematology consult in AM. PVC (premature ventricular contraction) 09/27/19 Assessment & Plan (09/27/2021 2:53 PM CDT): EKG at OSH showed frequent PVC in bigeminy, present in transfer packet and reviewed. Repeat EKG shows sinus rhythm without PVC. Assessment & Plan (09/26/2021 1:33 PM CDT): -EKG at OSH showed frequent PVC in bigeminy, present in transfer packet and reviewed. Repeat EKG shows sinus rhythm without PVC. -Observe on telemetry overnight. Lymphocytic interstitial pneumonia (CMS/HCC) Assessment & Plan (12/18/2023 1:11 PM CDT): 2/2 CVID. On inhalers. CXR clear on admission. -Continue PRN albuterol and trelegy per hospital formulary Immunodeficiency disease 05/04/2021 History of ITP 12/01/2020 Overview (12/01/2020): Added automatically from request for surgery [id number] Anemia 11/28/2020 Assessment & Plan (12/03/2020 11:37 AM CDT): Hgb 4.8 STATE TESTED NURSING ASSISTANT and s/p 4U pRBCs total. Hgb now 8.2. 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 GI has been following and risk>benefit of EGD. Hgb remains stable, patient and his mom deny further melena. -cont PPI BID x 12 weeks, per GI -see Arpita's syndrome Assessment & Plan (12/02/2020 2:47 PM CDT): -presents from home to OSH with a one day history of black tarry loose stools, pale and weak -pt takes iron daily and normally has dark stools, his father stated the color and consistency had changed -upon arrival at OSH ED, Hgb 4.8, platelets <3, given 2 units prbc's, 1 unit plts -will monitor cbc q8hrs -transfuse for hgb <7 and platelets <10 -GI consulted, appreciate recs- no plans for endoscopy -PPI BID for 12 weeks -melena improved -advance diet as per gastroenterology Neutropenic fever ([facility]/HCC) 09/25/2020 Idiopathic thrombocytopenic purpura (ITP) ([facility]/ CC) 07/09/2020 Assessment & Plan (12/01/2020 2:02 PM CDT): -history of ITP, was on eltrombopag as an outpatient -pt father states he has been taken off due to rising LFT's -CTM Mild persistent asthma 04/22/2020 Assessment & Plan (12/02/2020 7:30 PM CDT): -newly diagnosed with granulomatous lymphocytic interstitial pneumonitis -on RA Assessment & Plan (11/30/2020 4:12 PM CDT): -newly diagnosed with granulomatous lymphocytic interstitial pneumonitis ([facility]) -CTM Recurrent UTI 04/02/2020 Pancytopenia 01/05/2020 Assessment & Plan (01/05/2020 5:32 PM CDT): Jordi is a 23-year-old young man, with Trisomy 21, hypothyroidism, repaired VSD, followed immunology (Dr Rupal Isabel) for CVID. He was diagnosed with CVID in 2012 based on low Ig, porr vaccine response, autoimmune cytopenias and recurrent infections, on IVIG since 2014. He receives monthly Hyqvia (Immunoglobilin) SQ infections. Recent significant infections: COVID related respiratory failure requiring two months of PICU stay in -11/2019 that complicated with arterial thrombosis, s/p Xarelto therapy. His recent admission was on 12/29 for Enterobacter related urosepsis. He also required HC stress dose, presentation consistent with decreased adrenal reserves due to hx of prolonged steroid use. 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 He had admitted in 2014 (19yo) with Hb of 6.3, WBC 4.4, Plt 190 and treated with prednisone. In 2015 he was evaluated for pancytopenia. Bone marrow biopsy was negative for malignancy, and he was treated with Rituximab and steroids. Rituximab in March 2019 was given due to another episode of cytopenia. His steroids have been weaned off since then.The etiology was thought as non-malignant and possible immune. In total he had three thrombocytopenia flare up responded to steroid and rituximab last time ([id number]). During his last admission for UTI, he was found to develop pancytopenia and consulted hematology. Serial CBC was recommended. Yesterday plt count was 8K and referred to ED by immunology. He was admitted to hematology for further evaluation of pancytopenia. Decreased cell counts in three lineages (Hb 7.9 MCV 102 RDW 14 WBC 1.3 Plt 6K) today, in a patient with Trisomy 21, possible etiologies: 1. 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 His HUMZA positive, recent infection,durg use can trigger Rios syndrome. 2. Malignancy with bone marrow infiltration: Patient at risk to develop leukemia/lymphoma considering Tri 21 and CVID. LDH normal, uric acid 7.5. Peripheral smear did not show any blasts, seen only one normal lymphocyte and neutrophil. His exam is benign, no organomegaly or LAD. 3. Bone marrow suppression due to infection: His rtc is 4% (corrected 2.2%), has some bone marrow response. Recommendations: - Will give 1gr/kg of IVIG and check the response with daily CBCd. - If no response consider to give Rituximab for ITP - Prepared PRBC and plt for emergent situation on hold in blood bank (As his HUMZA was positive and has CVID, was hard to prepare PRBC last time in the hospital) - Anti-granulocyte antibodies pending - Will hold bone marrow biopsy at this point, considering likely immune etiology. But will repeat BM for persistent pancytopenia. 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 Differential for this continued decrease in platelets includes marrow suppression following critical illness in October and recent UTI or exacerbation of his known autoimmune thrombocytopenia. There are case reports of ciprofloxacin causing marrow suppression so this could be contributing as well. Malignancy is also on the differential given he is at higher risk given his T21 and Arpita's syndrome. Since he is pancytopenic at baseline, it would be difficult to detect malignancy without a smear or a bone marrow biopsy. He has not had any fever, weight loss, or night sweats. Given his known disease, transfusion would only be recommended if having active bleeding. Other options include steroids or IVIG. 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 Differential for this continued decrease in platelets includes marrow suppression following critical illness in October and recent UTI or exacerbation of his known autoimmune thrombocytopenia. There are case reports of ciprofloxacin causing marrow suppression so this could be contributing as well. Malignancy is also on the differential given he is at higher risk given his T21 and Arpita's syndrome. Since he is pancytopenic at baseline, it would be difficult to detect malignancy without a smear or a bone marrow biopsy. He has not had any fever, weight loss, or night sweats. Given his known disease, transfusion would only be recommended if having active bleeding. Other options include steroids or IVIG. - fall precautions - repeat CBC in AM - IgG level - HUMZA - antigranulocyte antibodies - peripheral smear Assessment & Plan (12/30/2019 7:55 PM CDT): Jordi is a 24-year-old male with a history of Rios syndrome (AIHA w/ AITP), CVID,??hypothyroidism, celiac disease,??and Trisomy 21 who was admitted on 12/18 for urosepsis. Hematology was consulted for management of his chronic ITP. Pt had an acute drop in his p[latelet count but he is asymptomatic. He was acutely ill and is still recovering from urosepsis which could cause transient myelosuppression. This can also explain his leukopenia. His platelet count has been steady in the past 3 days which is reassuring (17- 19). Recommendations: We discussed in detail 3 different approaches 1. Watchful observation, with twice a week labs until his platelets begin to recover- we expect that as his undrlying infection improves that the marrow also to recover. 2. A course of pulse steroids- timeframe for rise in platelets 4-10days 3. IVIG expect rise in Plts in ~48 hours 4 in the event that the platelets dont improve this would warrant further workup It is imperative to bear in mind that children with Rios syndrome, Trisomy 21 are at an increased risk for developing hematologic malignancies Adrenal insufficiency 11/07/2019 Assessment & Plan (12/19/2023 1:53 PM CDT): Followed by Endocrinology. Home dose is 8mg of prednisone daily now day 2 of stress dose 18mg qAM and 6mg qHS (24mg total dose and 3x home dose). No e/o adrenal crisis at this time. Father reports he usually does 3 days of stress dose followed by a quick taper. . -Decr to 10mg/6mg x3 days and then down to 8mg every day after -F/u with endocrine outpatient -He does have significant osteoperosis so should consider minimizing as much as possible. Assessment & Plan (08/21/2022 11:33 AM CDT): History of adrenal insufficiency on prednisone 6mg daily. P/w hypotension, tachycardia, fever, and N/V concerning for adrenal crisis - wean to pred 15mg x3 days, then 10x 3days, then back to home dose Assessment & Plan (09/27/2021 2:50 PM CDT): Patient with history of adrenal insuffiency secondary to chronic steroid use. Parent reports 1.5mg of prednisone qAM and 2mg qPM, following adrenal crises generally uses prednisone 5mg bid - received stress dose steroids at [facility] - continue pred 5 BID - per mom: when has an adrenal episode , he does a very slow taper of pred with a decrease in dose every few days to a week, ok to do what they usually do Assessment & Plan (09/26/2021 1:30 PM CDT): -Patient with history of adrenal insuffiency secondary to chronic steroid use for Arpita's syndrome. Parent reports 1.5mg of prednisone qAM and 2mg qPM, following adrenal crises generally uses prednisone 5mg bid. -Patient received crisis dosing of hydrocortisone, no evidence of adrenal crisis on exam, will start prednisone 5mg bid. -Consult endocrine in AM. Assessment & Plan (12/02/2020 7:24 PM CDT): -home regimen includes hydrocortisone 7.5 mg AM, 5mg at lunch and 2.5 mg at dinner. S/p 4d dex 40mg every day. -cont home steroids Assessment & Plan (12/02/2020 2:48 PM CDT): -history of adrenally insufficiency -home regimen includes prednisone 7.5 mg AM, 5mg at lunch and 2.5 mg at dinner -was on burst dose steroids; completed 4th day of 40 mg dexamethasone on 11/29 -follows with pediatric endocrine, Dr Sarmiento -continue on home hydrocortisone regimen as above Assessment & Plan (01/05/2020 2:31 AM CDT): Due to long duration of steroids during his prolonged ICU stay in 10/2019, he had been tapered off gradually but was still using stress dose steroids with illness. He last used stress steroids during his last hospitalization. At that time, endocrinology was consulted and recommended an anti-21 hydroxylase antibody to rule out Wilmot's as well as a low dose ACTH stim test at some point after 72 hours from last stress dose. He is very well appearing and does not have an indication for stress dosing at this time. - send anti-21 hydroxylase antibody (red top 2 ml) 2107 to [facility] - consider ACTH stim test this admission Assessment & Plan (12/30/2019 4:27 PM CDT): Jordi is a 24yo old with trisomy 21, Arpita's syndrome, CVID, hypothyroidism, celiac disease, recently admitted for COVID respiratory failure. Given prolonged stress dose steroid usage, he was placed on a HC taper which he finished a few weeks prior to admission. He was doing well off of HC until this recent illness. He had a cortisol level drawn in the ED which was 15.6; however, he had received a dose of stress dose steroids at home prior to arrival, so this level does not indicate his endogenous steroid production. Given that he has only been on stress dosing for 2 days, if he is clinically stable, the stress dose steroids can just be stopped without a taper. Theoretically, we could complete an ACTH stimulation test 24 hours after his last HC dose. His risk of adrenal insufficiency is more likely to be related to prolonged steroid use in last admission, but we can also rule out autoimmune cause of primary adrenal insufficiency as well. Recommendations: - stop stress dose steroids if clinically stable- eg no fever for 24 hours, no emesis, no hypotension, stable on antibiotics - no need for a taper given this is a short use of stress dosing - Jordi needs a low dose ACTH stimulation test, done at least 24-72 hours after last HC dose. Until stim test is completed, he should continue to use stress dosing as needed for illnesses. Will have our schedulers call to set up stim test. - can obtain anti-21 hydroxylase Ab to rule out Bud's disease. Assessment & Plan (12/29/2019 8:18 AM CDT): Cortisol 15.6 - Continue stress dose hydrocortisone 25mg q8h - Endocrinology consult Assessment & Plan (11/11/2019 7:35 AM CDT): Patient was on dexamethasone from 10/09-10/18. On 10/20 he had an inappropriately normal cortisol level and so was started on stress dose steroids. He has since been on a steroid taper per endocrinology. Vital signs overnight were stable and he is otherwise not showing signs of corticosteroid withdrawal. We will continue his steroid taper and decrease his hydrocortisone today per endocrinology. - Continue hydrocortisone to 10mg/5mg/2.5mg - If patient decompensates - can restart stress dose steroids at 50 mg/m2/day (approximately 28 mg q8h) - Endocrinology called regarding appropriateness of continuing steroid wean as O/P as well as contingency planning for stress dose steroids - appreciate recommendations (11/09) - f/u regarding need for endocrinology follow up. Assessment & Plan (11/10/2019 3:45 PM CDT): Patient was on dexamethasone from 10/09-10/18. On 10/20 he had an inappropriately normal cortisol level and so was started on stress dose steroids. He has since been on a steroid taper per endocrinology. Vital signs overnight were stable and he is otherwise not showing signs of corticosteroid withdrawal. We will continue his steroid taper and decrease his hydrocortisone today per endocrinology. - Continue hydrocortisone to 10mg/5mg/2.5mg - If patient decompensates - can restart stress dose steroids at 50 mg/m2/day (approximately 28 mg q8h) - Endocrinology called regarding appropriateness of continuing steroid wean as O/P as well as contingency planning for stress dose steroids - appreciate recommendations (11/09) - f/u regarding need for endocrinology follow up. Assessment & Plan (11/09/2019 12:35 PM CDT): Patient was on dexamethasone from 10/09-10/18. On 10/20 he had an inappropriately normal cortisol level and so was started on stress dose steroids. He has since been on a steroid taper per endocrinology. His vital signs on the floor have continued to be within normal limits and he is otherwise not showing signs of corticosteroid withdrawal. We will continue his steroid taper and decrease his hydrocortisone today per endocrinology. - Will decrease hydrocortisone to 10mg/5mg/2.5mg (11/08) - If patient decompensates - can restart stress dose steroids at 50 mg/m2/day (approximately 28 mg q8h) - Endocrinology called regarding appropriateness of continuing steroid wean as O/P as well as contingency planning for stress dose steroids - appreciate recommendations (11/07) Assessment & Plan (11/08/2019 6:58 PM CDT): Patient was on dexamethasone from 10/09-10/18. On 10/20 he had an inappropriately normal cortisol level and so was started on stress dose steroids. He has since been on a steroid taper per endocrinology. His vital signs on the floor have continued to be within normal limits and he is otherwise not showing signs of corticosteroid withdrawal. We will continue his steroid taper per endocrinology. - Continue Hydrocortisone TID 10mg/7.5mg/7.5mg - Next wean on 11/08 to 10mg/5mg/2.5mg - If patient decompensates - can restart stress dose steroids at 50 mg/m2/day (approximately 28 mg q8h) - Endocrinology called regarding appropriateness of continuing steroid wean as O/P as well as contingency planning for stress dose steroids - appreciate recommendations (11/07) Assessment & Plan (11/07/2019 8:35 PM CDT): Patient was on dexamethasone from 10/09-10/18. On 10/20 he had an inappropriately normal cortisol level and so was started on stress dose steroids. He has since been on a steroid taper per hematology. His vital signs on the floor are within normal limits and he is otherwise not showing any signs of adrenal insufficiency at this time. We will continue his steroid taper per endocrinology. - Continue Hydrocortisone TID 10mg/7.5mg/7.5mg - Next wean on 11/08 to 10mg/5mg/2.5mg - If patient decompensates - can restart stress dose steroids at 50 mg/m2/day (approximately 28 mg q8h) Decubitus ulcer of coccyx, unspecified pressure ulcer stage 10/24/2019 Assessment & Plan (01/04/2020 8:32 PM CDT): Developed stage 4 decubitus ulcer while critically ill. Wound is now nearly completely healed. Is following with PAWs as an outpatient. Next appointment 01/08. Assessment & Plan (01/04/2020 8:29 PM CDT): Developed stage 4 decubitus ulcer while critically ill. Wound is now nearly completely healed. Is following with PAWs as an outpatient. Next appointment Assessment & Plan (11/11/2019 7:34 AM CDT): Patient has a coccygeal ulcer as well as pressure injuries in the b/l trochanteric areas. PAWS saw the patient on 11/07 and recommended f/u in 1 week if still IP or in 2-3 weeks as an outpatient. - Continue Triad, Allevyn and Mepelex - bacitracin ointment to R hip. - will f/u regarding homegoing dressing changes/wound care regimen. Assessment & Plan (11/10/2019 3:43 PM CDT): Patient has a coccygeal ulcer as well as pressure injuries in the b/l trochanteric areas. PAWS saw the patient on 11/07 and recommended f/u in 1 week if still IP or in 2-3 weeks as an outpatient. - Continue Triad, Allevyn and Mepelex - bacitracin ointment to R hip. Assessment & Plan (11/09/2019 11:31 AM CDT): Patient has a coccygeal ulcer as well as pressure injuries in the b/l trochanteric areas. PAWS saw the patient on 11/07 and recommended f/u in 1 week if still IP or in 2-3 weeks as an outpatient. - Continue Triad, Allevyn and Mepelex - recommended bacitracin ointment to R hip. Assessment & Plan (11/08/2019 6:54 PM CDT): Patient has a coccygeal ulcer as well as pressure injuries in the b/l trochanteric areas. PAWS saw the patient on 11/07 and recommended f/u in 1 week if still IP or in 2-3 weeks as an outpatient. - Continue Triad, Allevyn and Mepelex - recommended bacitracin ointment to R hip. Assessment & Plan (11/07/2019 8:40 PM CDT): Patient has a coccygeal ulcer as well as pressure injuries in the b/l trochanteric areas. - Continue Triad, Allevyn and Mepelex - PAWS is following, will see patient on 11/07. CVID (common variable immunodeficiency) ([facility] ) 04/16/2018 Assessment & Plan (12/19/2023 1:52 PM CDT): Followed by immunology receiving monthly IVIG at home - last 2 weeks ago and due for another infusion in 2 weeks. -F/u with allergy outpatient Assessment & Plan (08/20/2022 1:58 PM CDT): F/b Immunology; received IVIG -F/u outpatient for further management Assessment & Plan (09/27/2021 2:51 PM CDT): Patient with history of common variable immunodeficiency receiving HYQVIA monthly. Assessment & Plan (09/26/2021 12:29 PM CDT): -Patient with history of common variable immunodeficiency receiving HYQVIA monthly. Assessment & Plan (12/02/2020 7:25 PM CDT): On SQIG q3 weeks as outpatient. S/p 2d IVIG this admission. Assessment & Plan (12/02/2020 2:48 PM CDT): -known history of CVID, on subcutaneous IVIG q 3 weeks and chronic steroids -recently started on Neupogen for neutrapenic fevers- hold for now as per heme -follows with Immunology, Dr Isabel -s/p IVIG x 2 days per Hematology recs Assessment & Plan (01/05/2020 2:33 AM CDT): Followed by immunology. Has been receiving monthly subcutaneous IgG replacement at home. Last dose ~12/13. IgG level was checked during last admission and was appropriately elevated at 1844 given his recent administration - repeat IgG level in AM. Assessment & Plan (12/29/2019 12:16 AM CDT): Jordi is a 24 yo with history of CVID on monthly Hizentra infusions. Jordi's last infusion was approximately 12/13. His IgG level on admission was 1844. Will be due for IgG on 01/15. - no infusions at this time - continue to monitor Assessment & Plan (11/11/2019 7:31 AM CDT): Patient has been persistently pancytopenic on this admission. He normally received monthly IgG infusions for his CVID and is s/p IVIG on 10/18. Immunology has been following the patient since admission for his Arpita's syndrome and CVID. 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 Patient did not have any labs drawn this AM, but WBC count jumped yesterday and Hgb/Platelets have remained stable. - Continue every other day CBCs - Will call immunology if his hemoglobin drops. - Will f/u with immunology regarding outpatient follow up. Assessment & Plan (11/10/2019 3:41 PM CDT): Patient has been persistently pancytopenic on this admission. He normally received monthly IgG infusions for his CVID and is s/p IVIG on 10/18. Immunology has been following the patient since admission for his Arpita's syndrome and CVID. 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 Patient did not have any labs drawn this AM, but WBC count jumped yesterday and Hgb/Platelets have remained stable. - Continue every other day CBCs - Will call immunology if his hemoglobin drops. - Will f/u with immunology regarding outpatient follow up. Assessment & Plan (11/09/2019 12:34 PM CDT): Patient has been persistently pancytopenic on this admission. He normally received monthly IgG infusions for his CVID and is s/p IVIG on 10/18. Immunology has been following the patient since admission for his Arpita's syndrome and CVID. 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 His WBC count increased today to 5.1 and his hemoglobin and platelets stayed stable at 8.4 and 103 respectively. - Per immunology, ok to transition patient to every other day CBCs (11/08) - Will call immunology if his hemoglobin drops. - Will f/u with immunology regarding outpatient follow up. Assessment & Plan (11/08/2019 6:49 PM CDT): Patient has been persistently pancytopenic on this admission. He normally received monthly IgG infusions for his CVID and is s/p IVIG on 10/18. Immunology has been following the patient since admission for his Arpita's syndrome and CVID. 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 His WBC (3.6, ANC 2900), Hgb (8.6) and platelets (101) are all stable from 8/6. IgG level drawn this AM was 1867.0, which is expected given his recent IVIG infusion. Per immunology, will need to continue having daily CBC's to trend his cell counts, but otherwise no intervention needed at this time. - Daily CBC - Will call immunology if his hemoglobin drops. Assessment & Plan (11/07/2019 8:25 PM CDT): Patient has been persistently pancytopenic on this admission. He normally received monthly IgG infusions for his CVID and is s/p IVIG on 10/18. Immunology has been following the patient since admission for his Arpita's syndrome and CVID. 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 His WBC (3.4, ANC 2700), Hgb (8.6) and platelets (105) are all increased from 8/. Per immunology, will need to continue having daily CBC's to trend his cell counts, but otherwise no intervention needed at this time. - Daily CBC - IgG level to be drawn 8/7 AM - Will call hematology if his hemoglobin drops. Down's syndrome 04/16/2018 Assessment & Plan (12/17/2023 8:46 PM CDT): Father present for assistance with history. Assessment & Plan (08/20/2022 2:02 PM CDT): With history of ASD, aortic arch repair, duodenal atresia s/p repair -Diazepam PRN if agitated Assessment & Plan (12/02/2020 7:28 PM CDT): With multiple comorbidities as mentioned above Assessment & Plan (11/28/2020 6:39 PM CDT): -history of Downs Syndrome, his mother, Adali and father, Aidan are both his legal guardians -will notify Social Work of Legal Guardian status -continue to coordinate with patient and his parents to ensure a safe and least intrusive stay while in the hospital Celiac disease 04/16/2018 Assessment & Plan (12/17/2023 8:45 PM CDT): Gluten free diet. Assessment & Plan (12/01/2020 2:03 PM CDT): -per patients father, history of celiac disease -gluten allergy documented -gluten free diet ordered Assessment & Plan (01/04/2020 10:15 PM CDT): Chronic problem. Stable - gluten free diet Assessment & Plan (12/29/2019 12:13 AM CDT): Stable. Is on a gluten free diet and denies any abdominal pain. - Gluten free diet Hypothyroidism 04/16/2018 Assessment & Plan (09/27/2021 2:53 PM CDT): - Continue home levothyroxine 137mcg daily Assessment & Plan (09/26/2021 12:25 PM CDT): -Continue home levothyroxine 137mcg daily. Assessment & Plan (12/02/2020 7:28 PM CDT): Cont synthroid Assessment & Plan (11/28/2020 5:51 PM CDT): -hypothyroid associated with Downs Syndrome -continue Levothyroxine 150 mcg daily -09/25 TSH 1.99 -f/w pediatric endocrine Assessment & Plan (01/04/2020 9:24 PM CDT): Stable. Last TSH was 1.35 on 12/18 - continue home levothyroxine 150 mcg Assessment & Plan (12/29/2019 12:14 AM CDT): Stable. Followed by endocrinology at [facility]. Currently on 150 mcg levothyroxine daily. - continue home levothyroxine. Assessment & Plan (11/11/2019 7:32 AM CDT): Patient has a history of hypothyroidism. - Continue Levothyroxine 175 mcg daily. Assessment & Plan (11/10/2019 3:41 PM CDT): Patient has a history of hypothyroidism. - Continue Levothyroxine 175 mcg daily. Assessment & Plan (11/09/2019 11:28 AM CDT): Patient has a history of hypothyroidism. - Continue Levothyroxine 175 mcg daily. Assessment & Plan (11/08/2019 6:49 PM CDT): Patient has a history of hypothyroidism. - Continue Levothyroxine 175 mcg daily. Assessment & Plan (11/07/2019 8:37 PM CDT): Patient has a history of hypothyroidism. - Continue Levothyroxine 175 mcg daily. 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 Our team was involved due to Low FT4 with associated high TSH while patient taking levothyroxine 150 mcg daily. This may reflect an increase in need of levothyroxine, or less likely, decreased absorption due to his celiac disease or because of concomitant administration with other medications like iron. 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 Separate dosing by at least 4 hours. Pediatric Endocrinology will continue to follow. 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 -Monitor counts, transfuse as needed. Assessment & Plan (12/03/2020 11:36 AM CDT): Follows with Heme here with significant anemia and TCP. Reportedly was well controlled prior to recent covid infection. -s/p dex 40 x4d and 2d IVIG -plan for splenectomy 02/10/21 -s/p Rituxan-will continue 3 weekly doses as outpatient. Plan was for PICC placement this evening for OP Rituxan however Plt below threshold for procedure. Spoke with heme and they are ok with patient discharging without PICC, will arrange for outpatient infusions -off promatca due to elevated LFTs Assessment & Plan (12/02/2020 2:49 PM CDT): -history of ARPITA's syndrome, history of Rituximab in 2018 and 2019 -follows with Dr Blue with Hematology -s/p Dexamethasone 40 mg daily x 2 days and completed 4 day course -s/p IVIG 1gm/kg daily x 2days -heme plans for rituximab today -plan for rituximab outpatient as well, requesting PICC, order placed Assessment & Plan (01/05/2020 2:30 AM CDT): See plan for thrombocytopenia. Hemoglobin on admission was stable at his baseline. Assessment & Plan (12/29/2019 12:24 AM CDT): Found to have increased pancytopenia with WBC 3.2, Hgb 8.5, and plt 19 (previously WBC 3.8, Hgb 9.8, plt 78 on 12/19/19). Antibody screen was negative. He did have elevated CRP (27.9), BUN (31), and Cre (1.8). - Hematology consult Congenital heart disease 04/16/2018 Assessment & Plan (12/19/2023 1:52 PM CDT): ASD/VSD s/p Repair 02/1998 -TTE this admission neg for vegetations Assessment & Plan (12/02/2020 7:25 PM CDT): -s/p Aortic arch repair and VSD closure and ASD repair Assessment & Plan (11/30/2020 4:12 PM CDT): -s/p Aortic arch repair and VSD closure and ASD repair -noted systolic murmur loudest at left sternal border Atopic dermatitis Dyspnea on exertion Resolved Problems Problem Noted Date Diagnosed Date Resolved Date Fever, unspecified fever cause 08/20/2022 08/20/2022 Acute respiratory failure wi th hypoxia (CMS/HCC) 08/20/2022 02/09/2023 Assessment & Plan (08/21/2022 11:34 AM CDT): Placed on 3L NC on arrival to the ED (with reported SpO2 <90% but not charted); not on supplemental oxygen at home. RVP negative. CXR with b/l infiltrates concerning for pneumonia. High suspicion for aspiration pneumonitis +/- developing pneumonia - resolved Hypotension 04/22/2020 08/05/2020 Fever 04/22/2020 08/05/2020 Pneumonia due to infectious organism 04/22/2020 08/05/2020 Acute cystitis due to enterobacter 01/04/2020 08/05/2020 Assessment & Plan (01/05/2020 2:31 AM CDT): During the last admission, he grew enterobacter aerogenes that was susceptible to cefepime and ciprofloxacin. Repeat UA in ED on admission looked clear. Urine culture is pending. - complete 7 day course of ciprofloxacin (due to be stopped 01/03) History of delirium 11/07/2019 01/04/20 Assessment & Plan (11/11/2019 7:35 AM CDT): Patient was initially on Precedex, Fentanyl, and Versed in the PICU. After intubation, his PICU course was complicated by persistent delirium which improved after he was weaned to scheduled clonidine, ativan, and dilaudid. Galina-1 scores have ranged from 0-1 overnight. We will continue his sedation wean by spacing his dilaudid this AM. - Decrease PO Ativan to 0.8mg q6h and Clonidine to 80 mcg q12h - Continue PO Dilaudid 2mg q6h. Assessment & Plan (11/10/2019 3:44 PM CDT): Patient was initially on Precedex, Fentanyl, and Versed in the PICU. After intubation, his PICU course was complicated by persistent delirium which improved after he was weaned to scheduled clonidine, ativan, and dilaudid. Galina-1 scores have ranged from 0-1 overnight. We will continue his sedation wean by spacing his dilaudid this AM. - Decrease PO Dilaudid to 2mg q6h - 11/09 - Continue PO Ativan 1 mg q6h and Clonidine 100 mcg q12h Assessment & Plan (11/09/2019 11:32 AM CDT): Patient was initially on Precedex, Fentanyl, and Versed in the PICU. After intubation, his PICU course was complicated by persistent delirium which improved after he was weaned to scheduled clonidine, ativan, and dilaudid. He has not show any signs of waxing/waning consciousness or agitation since transfer to the floor. His GALINA-1 scores throughout the day have ranged from 0-1 overnight and this AM. We will continue his sedation wean by decreasing his PO ativan. - Decrease PO Ativan to 1mg q6h - 11/08 - Continue PO Dilaudid 2 mg q4h and Clonidine 100 mcg q12h Assessment & Plan (11/08/2019 6:56 PM CDT): Patient was initially on Precedex, Fentanyl, and Versed in the PICU. After intubation, his PICU course was complicated by persistent delirium which improved after he was weaned to scheduled clonidine, ativan, and dilaudid. He has not show any signs of waxing/waning consciousness or agitation since arrival to the floor. His GALINA-1 scores throughout the day have ranged from 0-4 overnight and this AM.We will continue his sedation wean by decreasing his PO Dilaudid. - Decrease PO Dilaudid to 2mg q4h - 11/07 - Continue PO Ativan 1.2 mg q6h and Clonidine 100 mcg q12h Assessment & Plan (11/07/2019 8:30 PM CDT): Patient was initially on Precedex, Fentanyl, and Versed in the PICU. After intubation, his PICU course was complicated by persistent delirium which improved after he was weaned to scheduled clonidine, ativan, and dilaudid. He has not show any signs of waxing/waning consciousness or agitation since arrival to the floor. His GALINA-1 scores throughout the day have ranged from 0-2.We will continue his sedation wean by decreasing his PO ativan to 1.2 mg q6h. - Decrease PO ativan to 1.2 mg q6h - Continue PO Dilaudid 3 mg q4h and Clonidine 100 mcg q12h At risk for aspiration 11/07/201901/03 Overview (01/04/2020): Previously had concerns for mild aspiration while critically ill. Now resolved and on regular diet Assessment & Plan (11/11/2019 7:36 AM CDT): Patient took in good PO intake yesterday and overnight with regular diet and honey thickened liquids. NG removed on 11/07. Will continue to monitor PO intake. Per speech, plan is to repeat a swallow evaluation on 11/10 to determine whether the patient can tolerate thin liquids. - Continue Regular diet with honey thickened liquids. - will f/u with speech 11/10 - Will continue to monitor PO intake. Assessment & Plan (11/10/2019 3:46 PM CDT): Patient took in good PO intake yesterday and overnight with regular diet and honey thickened liquids. NG removed on 11/07. Will continue to monitor PO intake. Per speech, plan is to repeat a swallow evaluation on 11/10 to determine whether the patient can tolerate thin liquids. - Continue Regular diet with honey thickened liquids. - Speech and Nutrition are following. - Will continue to monitor PO intake. Assessment & Plan (11/09/2019 11:35 AM CDT): Patient took in great PO intake yesterday and overnight with regular diet and honey thickened liquids. NG removed on 11/07. Will continue to monitor PO intake. Per speech, plan is to repeat a swallow evaluation on 11/10 to determine whether the patient can tolerate thin liquids. - Continue Regular diet with honey thickened liquids. - Speech and Nutrition are following. - Will continue to monitor PO intake. Assessment & Plan (11/08/2019 7:01 PM CDT): Patient took in great PO intake yesterday with regular diet and honey thickened liquids. His continuous feeds were decreased to 40 mL/hr overnight. Per nutrition can discontinue NG tube feeds and remove NG tube this AM. Will continue to monitor PO intake. Per speech, plan is to repeat a swallow evaluation on 11/10 to determine whether the patient can tolerate thin liquids. - Regular diet with honey thickened liquids. - Speech and Nutrition is following. - Will continue to monitor PO intake. Assessment & Plan (11/07/2019 8:43 PM CDT): Patient currently has NG tube and is getting bolus and continuous overnight feeds. Speech is following and initially had the patient on honey thickened liquids. Per speech evaluation today, will plan to advance patient's diet to solid food and honey thickened liquids. Nutrition is also following patient for his bolus feeds. - Continue Bolus feeds 220 mL Promote BID over 2hr (can skip if taking adequate PO) as well as continuous 80 mL/hr overnight feeds. - Will f/u with nutrition regarding weaning NG feeds - Advance diet to Solids plus Honey thickened liquids - Continue 60 mL free water flushes q4h through NG tube. Acute non-cardiogenic pulmon chuy edema (CMS/HCC) 10/24/2019 08/05/2020 Arterial thrombosis (CMS/HCC) 10/23/2019 08/05/2020 Assessment & Plan (11/11/2019 7:34 AM CDT): Patient was found to have a L femoral arterial thrombus on 10/21 at which point he was started on therapeutic lovenox. He had a CTPE during his acute decompensation on 10/24 which showed no evidence of PE. His lower extremities are not showing any signs of swelling, erythema or tenderness on exam this AM. - Continue prophylactic Lovenox 40mg subQ daily (11/06 - ) - Per heme, can transition to xarelto 10mg daily at discharge to be taken through the first week of December. Assessment & Plan (11/10/2019 3:43 PM CDT): Patient was found to have a L femoral arterial thrombus on 10/21 at which point he was started on therapeutic lovenox. He had a CTPE during his acute decompensation on 10/24 which showed no evidence of PE. His lower extremities are not showing any signs of swelling, erythema or tenderness on exam this AM. - Continue prophylactic Lovenox 40mg subQ daily (11/06 - ) - Per heme, can transition to xarelto 10mg daily at discharge to be taken through the first week of December. Assessment & Plan (11/09/2019 11:31 AM CDT): Patient was found to have a L femoral arterial thrombus on 10/21 at which point he was started on therapeutic lovenox. He had a CTPE during his acute decompensation on 10/24 which showed no evidence of PE. His left lower extremity is not showing any signs of swelling, erythema or tenderness on exam at this time. Per heme/onc recommendations we will transition him from therapeutic to prophylactic lovenox due to his COVID infection. - Continue Lovenox 40mg subQ daily (8 - ) - Per heme, can consider transitioning to xarelto 10mg daily at discharge to be taken through the first week of December. Assessment & Plan (11/08/2019 6:52 PM CDT): Patient was found to have a L femoral arterial thrombus on 10/21 at which point he was started on therapeutic lovenox. He had a CTPE during his acute decompensation on 10/24 which showed no evidence of PE. His left lower extremity is now showing any signs of swelling, erythema or tenderness on exam at this time. Per heme/onc recommendations we will transition him from therapeutic to prophylactic lovenox due to his COVID infection. - Continue Lovenox 40mg subQ daily (11/06 - ) - Per heme, can consider transitioning to xarelto 10mg daily at discharge through first week of December. Assessment & Plan (11/07/2019 8:38 PM CDT): Patient was found to have a L femoral arterial thrombus on 10/21 at which point he was started on therapeutic lovenox. He had a CTPE during his acute decompensation on 10/24 which showed no evidence of PE. His left lower extremity is now showing any signs of swelling, erythema or tenderness on exam at this time. Per heme/onc recommendations we will transition him from therapeutic to prophylactic lovenox due to his COVID infection. - Adjust Lovenox to 40mg daily to be continue for 30 days after discharge. 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 He received convalescent plasma on 10/14 and has completed 10 days of dexamethasone and remdesivir. He continues on cefepime for MSSA bacteremia and pseudomonal VAP. He responded well to therapy. He was also on prophylactic anticoagulation due to hypercoagulability state in COVID infection. He developed an arterial thrombosis, at the central line site, left femoral artery.The nonocclusive obstructive arterial thrombus in the midportion of left superficial femoral artery was shown in Doppler US of lower extremity. He was switched to therapeutic Lovenox on 10/21 (50mg SQ BID). He reached to therapeutic level on 10/30. He clinically improved and transferred to hospitalist service. He has no signs of bleeding or limb ischemia. Possible discharge next week per primary team and consulting for discharge recommendations. Recommendations: - Arterial thrombosis: 7-10 days of therapy with enoxaparin is adequate. Parents asked about - Will continue prophylaxis enoxaparin 40mg once a day SQ. Complete therapy to one month and can stop. According to COVID-19 thromboembolism guidelines it is recommended to extend prophylaxis for VTE after discharge if they are admitted to PICU, intubated, sedated such as Jordi. - No need further hematology follow up, please contact for any concerns. Ref: 1. Donya et al. Thromboembolism and anticoagulant therapy during the COVID19 pandemic). 2. Shravan et al. 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 He received convalescent plasma on 10/14 and has completed 10 days of dexamethasone and remdesivir. He continues on cefepime for MSSA bacteremia and pseudomonal VAP. He responded well to therapy. He was also on prophylactic anticoagulation due to hypercoagulability state in COVID infection. His clinic is improving and extubation is planned this pm. However, he developed an arterial thrombosis two days ago at the central line site, left femoral artery, nonocclusive obstructive arterial thrombus in the midportion of left superficial femoral artery that was shown in Doppler US of lower extremity. He was switched to therapeutic Lovenox yesterday 10-21 (50mg SQ BID). This morning antiXa level 4h after the dose is 0.35. Recommendations: 1. Agree to increase lovenox to 60mg SQ BID 2. No need further analysis for thrombophilia as arterial thrombus is possibly secondary to central line. Femoral line pulled out. 3. Follow up anti Xa level 4h after the second dose of increased lovenox dose. 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 Patient's PICU course was complex and included immediate intubation and pressor support as well as multiple courses of antibiotics for MSSA bacteremia, COVID treatments (including remdesivir, and convalescent serum), stress dose steroids due to concern for adrenal insufficiency and pancytopenia secondary to his Arpita's syndrome. He had no acute events overnight, and is recovering well on the floor. Plan: - Currently stable on Room air. - No need for COVID precautions on the floor - PICC line removed on 11/07. - No need for repeat echo per ID. 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 Patient's PICU course was complex and included immediate intubation and pressor support as well as multiple courses of antibiotics for MSSA bacteremia, COVID treatments (including remdesivir, and convalescent serum), stress dose steroids due to concern for adrenal insufficiency and pancytopenia secondary to his Arpita's syndrome. He is recovering well on the floor and had no acute events overnight. He is neurologically intact, has been able to walk, and is not showing any signs of withdrawal at this time. Plan: - Currently stable on Room air. - No need for COVID precautions on the floor - PICC line removed on 11/07. - No need for repeat echo per ID. 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 Patient's PICU course was complex and included immediate intubation and pressor support as well as multiple courses of antibiotics for MSSA bacteremia, COVID treatments (including remdesivir, and convalescent serum), stress dose steroids due to concern for adrenal insufficiency and pancytopenia secondary to his Arpita's syndrome. He continues to do well on the floor and has not had any fevers, shortness of breath, apparent pain, diarrhea, or worsening of his neurologic status. Plan: - Per ID - No need for repeat echocardiogram at this time given no concern for MIS-C, unless there is new concern regarding the patient's cardiac status. - Currently stable on Room air. - No need for COVID precautions on the floor - PICC line removed on 11/07. 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 Patient's PICU course was complex and included immediate intubation and pressor support as well as multiple courses of antibiotics for MSSA bacteremia, COVID treatments (including remdesivir, and convalescent serum), stress dose steroids due to concern for adrenal insufficiency and pancytopenia secondary to his Arpita's syndrome. He continues to do well on the floor and has not had any fevers, shortness of breath, apparent pain, diarrhea, or worsening of his neurologic status. Plan: - Per ID - No need for repeat echocardiogram at this time given no concern for MIS-C, unless there is new concern regarding the patient's cardiac status. - Currently stable on Room air. 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 Patient's PICU course was complex and included immediate intubation and pressor support as well as multiple courses of antibiotics for MSSA bacteremia, COVID treatments (including remdesivir, and convalescent serum), stress dose steroids due to concern for adrenal insufficiency and pancytopenia secondary to his Arpita's syndrome. Of note, he had an acute decompensation on 10/24 at which point an echocardiogram was obtained due to concern for MIS-C - although the study was limited due to poor windows. He has since been extubated and is breathing well on room air, is hemodynamically stable, and now is off antibiotics and contact precautions for his COVID infection. He is doing well on the floor and has not had any fevers, shortness of breath, apparent pain, diarrhea, or worsening of his neurologic status. Plan: - Per ID - No need for repeat echocardiogram at this time given no concern for MIS-C - Currently stable on Room air. Continue Chest Physiotherapy TID. - No need for COVID precautions on the floor Acute hypoxemic respiratory failure 10/10/2019 01/04/2020 Acute kidney injury 10/10/2019 08/06/19 21 Assessment & Plan (12/29/2019 8:13 AM CDT): Jordi does have a history of SABRINA (prerenal azotemia) on last admission. Cre on discharge in november was 0.92, BUN 24. On admission Cre 1.8, BUN 31. Per dad, Jordi's urine output has appropriately increased after receiving fluids. Will continue to monitor kidney function closely. Cre 1.2 BUN 22, Chloride 116, Co2 17 - Strict I/O - repeat BMP Assessment & Plan (11/11/2019 7:33 AM CDT): SABRINA now resolved -11/10 Cr is 0.92, and BUN is 24. Otherwise, electrolytes are unremarkable. Patient continues to void appropriately and has been drinking adequate amounts of fluids. - Will continue to monitor urine output - Monday/ BMP + Mg. Assessment & Plan (11/10/2019 3:42 PM CDT): SABRINA now resolved - Cr on 11/07 was 0.70 (stable from 0.69 on 11/05) and BUN was 33 (down from 39). Patient continues to void appropriately and has been drinking adequate amounts of fluids. - Will continue to monitor urine output - Monday/ BMP + Mg. Assessment & Plan (11/09/2019 11:29 AM CDT): SABRINA now resolved - Cr on 11/07 was 0.70 (stable from 0.69 on 11/05) and BUN was 33 (down from 39). Electrolytes were otherwise reassuring. Patient is voiding spontaneously and appropriately. - Will continue to monitor urine output - Monday/ BMP + Mg. Assessment & Plan (11/08/2019 6:50 PM CDT): SABRINA now resolved - Cr on 11/07 was 0.70 (stable from 0.69 on 11/05) and BUN was 33 (down from 39). Electrolytes were otherwise reassuring. Patient is voiding spontaneously and appropriately. - Will continue to monitor urine output - Monday/ BMP + Mg. Assessment & Plan (11/07/2019 8:15 PM CDT): SABRINA now resolved - Cr this AM is 0.70 (stable from 0.69 on 11/05) and BUN is 33 (down from 39). Electrolytes are otherwise reassuring. Patient is voiding spontaneously and appropriately. - Will continue to monitor urine output - Monday/ BMP + Mg. Personal history of COVID-19 10/02/2019 11/30/2020 Assessment & Plan (11/28/2020 5:53 PM CDT): -now COVID recovered; hisotry of COVID infection requiring intubation and month long hospitalization in October 2019 -11/28 OSH COVID-19 negative Bezoar 06/11/2018 11/30/2020 Assessment & Plan (11/29/2020 2:44 PM CDT): -history of bezoar noted on EGD approximately 6 years ago per pt father -GI aware Septic shock due to Staphylococcus aureus 06/11/2018 07/27/2020 Hypogammaglobulinemia 04/16/20182018 Umbilical hernia 04/16/2018 08/05/2020 Immunizations Name Administration Dates Next Due DTaP 5 Pertussis 10/01/2002, 9,03/17/1998,12/12 HPV, Quadrivalent 08/14/2015,02/09/2012 Hep A, Pediatric 11/05/2008,12/27/2005 Hep B, Adolescent or Pediatric 01/12/1999,1997,1997 Hib (HbOC) 03/17/1998,1997 Hib (PRP-T) 11/11/2020 IPV 12/27/2005, 3,03/17/1998,12/12 Influenza, Quadrivalent, Jojo l Culture-based MDCK, Preservative Free, Antibiotic Free, Intramuscular 01/27/2021,01/21/2020 Influenza, Quadrivalent, Spl it, Preservative Free, Intramuscular 12/29/2022,02/03/2022 Influenza, Split 02/09/2012, 1,03/18/2010,03/13 Influenza, Trivalent, IM (MDV) 12/18/2012 Influenza, Trivalent, Preser vative Free, Intramuscular 03/09/2016 Tonara (J&J) SARS-CoV-2 Vaccination 06/08/2020 MMR 10/01/2002,01/20/1999 Meningococcal B, OMV (Bexsero) 01/19/2023,2022,08/11/2021 Meningococcal Conjugate (Menveo) 08/11/2021 Meningococcal MCV4P (Menactra) 11/11/2020,2010 Pneumococcal Conjugate PCV 13 11/11/2020 Pneumococcal Polysaccharide PPV23 12/18/2012 Tdap 11/05/2008 Varicella 10/01/2002 Social History Tobacco Use Types Packs/Day Years Used Date Smoking Tobacco: Never Passive Smoke Exposure: Never Smokeless Tobacco: Never Tobacco Cessation:Counseling Given: Not Answered Alcohol Use Standard Drinks/Week Comments Never 0 [...] week 10/11/2021 How often do you attend [facility] or sabianism services? Never 10/11/2021 Do you belong to any clubs o r organizations such as yazidi groups, unions, fraternal or athletic groups, or school groups? No 10/11/2021 How often do you attend meet ings of the clubs or organizations you belong to? Never 10/11/2021 Are you , , di vorced, , never , or living with a partner? Never 10/11/2021 AUDIT-C Answer Date Recorded Frequency of Alcohol Consumption Not on file 04/25/2024 Q2: How many drinks containi ng alcohol do you have on a typical day when you are drinking? Patient does not drink Frequency of Binge Drinking Not on file 04/04 Overall Financial Resource Strain (CARDIA) Answe r [...] place to sleep or slept in a senior care (including now)? No 10/11/2021 Personal Safety Answer Date Recorded Have you ever been in or are you currently in a harmful physical or emotional relationship or is someone making you feel afraid or unsafe? Patient unable to answer 12/18/2023 Sex and Gender Information Value Date Recorded Sex Assigned at Not on file Legal Sex Male 1:53 AM [employer] Gender Identity Male 10/02/2023 12:44 PM CDT Sexual Orientation Don't know 11/15/2020 1: 06 PM CDT Last Filed Vital Signs Vital Sign Reading Time Taken Comments Blood Pressure 109/70 04/25/2024 9:10 AM [employer] Pulse 72 04/25/2024 9:10 AM [employer] Temperature 36.8 ??C (98.2 ??F) 04/25/2024 9:10 AM CS T Respiratory Rate 18 03/12/2024 2:48 PM [employer] Oxygen Saturation 96% 03/12/2024 2:48 PM [employer] Inhaled Oxygen Concentration - - Weight 61.3 kg (135 lb 3.2 oz) 04/25/2024 9:10 A M [employer] Height 162.6 cm (5' 4 ) 04/25/2024 9:10 AM [employer] Body Mass Index 23.21 04/25/2024 9:10 AM [employer] Plan of Treatment Not on file Procedures Procedure Name Priority Date/Time Associated Diagnosis Comments EGFR Routine 04/25/2024 10:00 AM [employer] AIHA (autoimmune hemolytic anemia) (HCC) Chronic ITP (idiopathic thrombocytopenia) (HCC) DIFFERENTIAL AUTO Routine 04/25/2024 10: 00 AM [employer] AIHA (autoimmune hemolytic anemia) (HCC) Chronic ITP (idiopathic thrombocytopenia) (HCC) CBC WITH AUTO DIFFERENTIAL Routine 04/25/2024 10:00 AM [employer] AIHA (autoimmune hemolytic anemia) (HCC) Chronic ITP (idiopathic thrombocytopenia) (HCC) COMPREHENSIVE METABOLIC PANEL Routine 04/25/2024 10:00 AM [employer] AIHA (autoimmune hemolytic anemia) (HCC) Chronic ITP (idiopathic thrombocytopenia) (HCC) RETICULOCYTES Routine 04/25/2024 10:00 AM [employer] AIHA (autoimmune hemolytic anemia) (HCC) Chronic ITP (idiopathic thrombocytopenia) (HCC) HAPTOGLOBIN Routine 04/25/2024 10:00 AM [employer] AIHA (autoimmune hemolytic anemia) (HCC) Chronic ITP (idiopathic thrombocytopenia) (HCC) LACTATE DEHYDROGENASE Routine 04/25/2024 10:00 AM [employer] AIHA (autoimmune hemolytic anemia) (HCC) Chronic ITP (idiopathic thrombocytopenia) (HCC) DIRECT ANTIGLOBULIN TEST Routine 04/25/2024 10:00 AM [employer] AIHA (autoimmune hemolytic anemia) (HCC) Chronic ITP (idiopathic thrombocytopenia) (HCC) XR SCOLIOSIS AP LAT Schedule Routine, Read Routine (OP Routine) 03/12/2024 4:00 PM [employer] Osteoporosis without current pathological fracture, unspecified osteoporosis type EGFR Routine 03/12/2024 3:34 PM [employer] Osteoporosis without current pathological fracture, unspecified osteoporosis type BETA-CROSSLAPS (BETA-CTX) Routine 03/12/2024 3:34 PM [employer] Osteoporosis without current pathological fracture, unspecified osteoporosis type COMPREHENSIVE METABOLIC PANEL Routine 03/12/2024 3:34 PM [employer] Osteoporosis without current pathological fracture, unspecified osteoporosis type PTH Routine 03/12/2024 3:34 PM [employer] Osteoporosis without current pathological fracture, unspecified osteoporosis type PHOSPHORUS Routine 03/12/2024 3:34 PM [employer] Osteoporosis without current pathological fracture, unspecified osteoporosis type OSTEOCALCIN Routine 03/12/2024 3:34 PM [employer] Osteoporosis without current pathological fracture, unspecified osteoporosis type ALKALINE PHOSPHATASE, BONE SPECIFIC Routine 03/12/2024 3:34 PM [employer] Osteoporosis without current pathological fracture, unspecified osteoporosis type GAMMA GT Routine 03/12/2024 3:34 PM [employer] Osteoporosis without current pathological fracture, unspecified osteoporosis type XR CHEST PA LATERAL 2 VIEWS Schedule Routine, Read Routine (OP Routine) 03/12/2024 2:41 PM [employer] Mild persistent asthma without complication IGG Routine 02/15/2024 3:10 PM [employer] CVID (common variable immunodeficiency) (HCC) HEPATITIS PANEL, ACUTE Routine 11/28/2020 5:33 PM CDT from Last 3 Months or Most Recently Relevant to Health Maintenance Results * eGFR (04/25/2024 10:00 AM [employer]) eGFR >90 >=60 mL/min/1. 73 m2 Comment: Interpretive Data Reference Interval Normal ?>/= 90 mL/min/1.73m2 Mildly decreased* ? 60 - 89 mL/min/1.73m2 Mildly to moderately decreased ?45 - 59 mL/min/1.73m2 Moderately to severely decreased ??30 - 44 mL/min/1.73m2 Severely decreased ?15 - 29 mL/min/1.73m2 Kidney Failure ?< 15 ??mL/min/1.73m2 *Relative to young adult level Estimated glomerular filtration rate is determined by the 2020 CKD-EPI equation recommended by the National [employer] (A Unifying Approach to GFR Estimation: Recommendations of the NKF-ASK Task Force on Reassessing the Inclusion of Race in Diagnosing Kidney Disease, JASN 2020). The CKD-EPI equation should not be used for patients with unstable renal function and has not been validated in children and those over 70. Current interpretive data was last reviewed 2021. Testing performed by: [facility], [id number] [address], [place] [address] Blood 04/25/2024 10:0 0 AM [employer] 04/25/2024 10:16 AM [employer] us Rekha Osborne MD LAB BLOOD ORDERABLES Final Result [facility] [id number] [address] [place] [address] * (ABNORMAL) Differential, auto (04/25/2024 10:00 AM [employer]WARE ASSEMBLER) Neutrophil abs 8.6(H) 1.5 - 6.5 K/cumm Comment:Testing performed by : [place] [address], [address] [place] [address] Imm gran abs 0.5(H) 0.0 - 0.1 K/cumm CERNER BJWCH Comment:Testing performed by : [place] [address], [address] [place] [address] Lymphocyte abs 2.3 0.8 - 3.3 K/cumm CERNER BJWCH Comment:Testing performed by : [place] [address], [address] [place] [address] Monocyte abs 1.4(H) 0.2 - 0.8 K/cumm CERNER BJWCH Comment:Testing performed by : [place] [address], [address], [place] [address] Eosinophil abs 0.1 0.0 - 0.5 K/cumm CERNER BJWCH Comment:Testing performed by : [place] [address], [address], [place] [address] Basophil abs 0.2(H) 0.0 - 0.1 K/cumm CERNER BJWCH Comment:Testing performed by : [place] [address], [address] [place] [address] Neutrophil pct 65.5 % CERNER BJWCH Comment: Interpretive Data Percent cell count reference ranges are not reported, since discordance with absolute values may lead to misinterpretation of CBC data. Current Interpretive Data was last revised on 2017. Testing performed by: [facility] 2, [address] [place] [address] Imm gran pct 4.0 % CERNER BJWCH Comment: Interpretive Data Percent cell count reference ranges are not reported, since discordance with absolute values may lead to misinterpretation of CBC data. Current Interpretive Data was last revised on 2017. Testing performed by: [facility], [address] [place] [address] Lymphocyte pct 17.2 % [facility] Comment: Interpretive Data Percent cell count reference ranges are not reported, since discordance with absolute values may lead to misinterpretation of CBC data. Current Interpretive Data was last revised on 2017. Testing performed by: [facility] 2, [address] [place] [address] Monocyte pct 10.9 % CERNER BJWCH Comment: Interpretive Data Percent cell count reference ranges are not reported, since discordance with absolute values may lead to misinterpretation of CBC data. Current Interpretive Data was last revised on 2017. Testing performed by: [facility] 2, [address] [place] [address] Eosinophil pct 0.7 % CERNER BJW Comment: Interpretive Data Percent cell count reference ranges are not reported, since discordance with absolute values may lead to misinterpretation of CBC data. Current Interpretive Data was last revised on 2017. Testing performed by: [facility] 2, [address] [place] [address] Basophil pct 1.7 % [facility] Comment: Interpretive Data Percent cell count reference ranges are not reported, since discordance with absolute values may lead to misinterpretation of CBC data. Current Interpretive Data was last revised on 2017. Testing performed by: [facility] 2, [address] [place] [address] Blood 04/25/2024 10:0 0 AM SILVERWARE ASSEMBLER 04/25/2024 10:05 AM SILVERWARE ASSEMBLER Rekha Osborne MD LAB BLOOD ORDERABLES Final Result [facility] [address] [facility]. [place] [address] * (ABNORMAL) CBC with auto differential (04/25/2024 10:00 AM SILVERWARE ASSEMBLER) [facility] Signature WBC 13.1(H) 3.8 - 9.9 K/cumm Comment:Testing performed by : [place] [address], [address], [place] [address] Hgb 15.1 13.0 - 17.5 g/dL CERNER BJWCH Comment:Testing performed by : [place] [address], [address], [place] [address] Hct 45.6 38.9 - 50.3 % CERNER BJWCH Comment:Testing performed by : [place] [address] [place] [address] Plt 201 150 - 400 K/cumm CERNER BJWCH Comment:Testing performed by : [place] [address] [place] [address] MPV 12.4(H) 9.1 - 12.3 fL CERNER BJWCH Comment:Testing performed by : [place] [address] [place] [address] RBC 4.78 4.30 - 5.80 M/cumm CERNER BJWCH Comment:Testing performed by : [place] [address] [place] [address] MCV 95 81 - 96 fL CERNER BJWCH Comment:Testing performed by : [address], [place] [address] MCH 31.6 27.1 - 33.3 pg CERNER BJWCH Comment:Testing performed by : [address] [place] [address] MCHC 33.1 32.3 - 35.7 g/dL CERNER BJWCH Comment:Testing performed by : [place] [address], [place] [address] RDW CV 16.8(H) 11.1 - 14.9 % CERNER BJWCH Comment:Testing performed by : [facility] 2, [address] [place] [address] RDW SD 58.8(H) 35.7 - 48.1 fL PAULA CAMPOS Comment:Testing performed by : [facility] 2, [address] [place] [address] NRBC abs 0.03(H) 0.00 - 0.01 K/cumm PAULA CAMPOS Comment:Testing performed by : [place] [address], [address] [place] [address] Blood 04/25/2024 10:0 0 AM SILVERWARE ASSEMBLER 04/25/2024 10:05 AM SILVERWARE ASSEMBLER us Rekha Osborne MD LAB BLOOD ORDERABLES Final Result Performing Organization Address City/State/[facility] Co de Phone Number PAULA [facility] [address] [facility] [place] [address] * (ABNORMAL) Reticulocyte Count (04/25/2024 10:00 AM SILVERWARE ASSEMBLER) Retics, absolute 0.104(H) 0.020 - 0.087 M/cumm Comment:Testing performed by : [facility] 2, [address] [place] [address] Retics 2.2 0.4 - 2.9 % PAULA CAMPOS Comment:Testing performed by : [facility] 2, [address] [place] [address] Reticulocyte Hgb 32.9 30.5 - 38.0 pg PAULA CAMPOS Comment:Testing performed by : [facility] 2, [address] [place] [address] Blood 04/25/2024 10:0 0 AM SILVERWARE ASSEMBLER 04/25/2024 10:05 AM SILVERWARE ASSEMBLER us Rekha Osborne MD LAB BLOOD ORDERABLES Final Result Performing Organization Address [facility] Co de Phone Number PAULA BJWCH [address] [address] [facility] [place] [address] * Direct antiglobulin test (04/25/2024 10:00 AM SILVERWARE ASSEMBLER) HUMZA Poly Interp Negative Comment:Testing performed by : [facility], [address] [facility] [place] [address] Blood 04/25/2024 10:0 0 AM SILVERWARE ASSEMBLER 04/25/2024 10:16 AM SILVERWARE ASSEMBLER us Rekha Osborne MD LAB BLOOD BANK TEST ORDERAB LES Final Result Performing Organization Address [facility] Co de Phone Number PAULA BJWCH [address] [address]. [facility] [place] [address] * Lactate dehydrogenase (LD) (04/25/2024 10:00 AM SILVERWARE ASSEMBLER) Pathologist [facility] Lactate dehydrogenase (LDH) 139 100 - 250 Units/L Comment:Testing performed by : [facility], [address] [facility], [place] [address] Blood 04/25/2024 10:0 0 AM SILVERWARE ASSEMBLER 04/25/2024 10:16 AM SILVERWARE ASSEMBLER Rekha Osborne MD LAB BLOOD ORDERABLES Edited Result - Final Performing Organization Address [facility] Co de Phone Number CERNER BJWCH [address] [address]. [facility] [place] [address] * (ABNORMAL) Haptoglobin (04/25/2024 10:00 AM SILVERWARE ASSEMBLER) Pathologist [facility] Haptoglobin 221(H) 30 - 200 mg/dL Comment:Testing performed by : [facility], [facility], [place]., [address] Blood 04/25/2024 10:0 0 AM SILVERWARE ASSEMBLER 04/25/2024 1:35 PM SILVERWARE ASSEMBLER us Rekha Osborne MD LAB BLOOD ORDERABLES Final Result PAULA [facility] [address] [address] Department [place] [address] * Comprehensive metabolic panel (04/25/2024 10:00 AM SILVERWARE ASSEMBLER) Sodium 139 135 - 145 mmol/L Comment:Testing performed by : [facility], [address], [place] [address] Potassium, pl 4.1 3.3 - 4.9 mmol/L CERARTHUR BJWCH Comment:Testing performed by : [facility], [address], [place] [address] Chloride 103 97 - 110 mmol/L CERARTHUR BJWCH Comment:Testing performed by : [facility], [address], [place] [address] CO2 26 22 - 32 mmol/L CERARTHUR BJWCH Comment:Testing performed by : [facility], [address], [place] [address] Anion gap 10 2 - 15 mmol/L CERARTHUR BJWCH Comment:Testing performed by : [facility], [address], [place] [address] BUN 15 6 - 25 mg/dL CERARTHUR BJWCH Comment:Testing performed by : [facility], [address], [place] [address] Creatinine 0.80 0.80 - 1.30 mg/dL CERNER BJWCH Comment:Testing performed by : [facility], [address], [place] [address] Glucose 98 70 - 199 mg/dL CERNER BJWCH Comment: Interpretive Data Fasting glucose >/= 126 mg/dl is diagnostic for diabetes. ?? Fasting is defined as no caloric intake for at least 8 hours. Fasting glucose between 100 mg/dl to 125 mg/dl is diagnostic of prediabetes. In a patient with classic symptoms of hyperglycemia or hyperglycemic crisis, a random glucose >/= 200 mg/dl is diagnostic for diabetes. In the absence of unequivocal hyperglycemia, results should be confirmed by repeat testing. The classification and Diagnosis of Diabetes Diabetes Care 202; 46: S19-S40. Current interpretive data was last revised 2022. Testing performed by: [facility], [address], [place] [address] Calcium 9.3 8.5 - 10.3 mg/dL CERNER BJWCH Comment:Testing performed by : [facility], [address], [place] [address] Bilirubin, total 0.2 0.1 - 1.2 mg/dL CERNER BJWCH Comment:Testing performed by : [facility], [address], [place] [address] Protein, pl 6.8 6.5 - 8.5 g/dL CERNER BJWCH Comment:Testing performed by : [facility], [address], [place] [address] Albumin 3.7 3.5 - 5.0 g/dL CERNER BJWCH Comment:Testing performed by : [facility], [address], [place] [address] Alk phos 122 40 - 130 Units/L CERNER BJWCH Comment:Testing performed by : [facility], [address], [place] [address] ALT 29 7 - 55 Units/L CERNER BJWCH Comment:Testing performed by : [facility], [address], [place] [address] AST 23 10 - 50 Units/L CERNER BJWCH Comment:Testing performed by : [facility], [address], [place] [address] Blood 04/25/2024 10:0 0 AM SILVERWARE ASSEMBLER 04/25/2024 10:16 AM SILVERWARE ASSEMBLER us Rekha Osborne MD LAB BLOOD ORDERABLES Edited Result - Final [facility] [address] [place] [address] * XR Scoliosis 2 or 3 Views (03/12/2024 4:00 PM SILVERWARE ASSEMBLER) Anatomical Region Laterality Modality Spine N/A Computed Radiogr aphy 03/12/2024 4:28 PM SILVERWARE ASSEMBLER Impressions 03/12/2024 4:28 PM SILVERWARE ASSEMBLER No compression deformities of the spine. Electronically signed by: Inderjit Valle D.O. Narrative 03/12/2024 4:28 PM SILVERWARE ASSEMBLER EXAMINATION: XR SCOLIOSIS AP AND LATERAL HISTORY: osteoporosis COMPARISON: Prior studies, including CT 03/06/2022 FINDINGS: No significant scoliotic curvature. ??Mild anterior sagittal imbalance, neutral coronal balance. ??No pelvic obliquity. ??Normal vertebral body heights. ??Apparent degenerative disc changes at L1-L2 may be related to overlying bowel gas. ??Multiple sternotomy wires, several which are fractured. Procedure Note Inderjit Valle, DO - 03/12/2024 EXAMINATION: XR SCOLIOSIS AP AND LATERAL HISTORY: osteoporosis COMPARISON: Prior studies, including CT 03/06/2022 FINDINGS: No significant scoliotic curvature. Mild anterior sagittal imbalance, neutral coronal balance. No pelvic obliquity. Normal vertebral body heights. Apparent degenerative disc changes at L1-L2 may be related to overlying bowel gas. Multiple sternotomy wires, several which are fractured. IMPRESSION: No compression deformities of the spine. Electronically signed by: Inderjit Valle D.O. Rick Fabian MD IM XR PROCEDURES Final Result * eGFR (03/12/2024 3:34 PM SILVERWARE ASSEMBLER) eGFR >90 >=60 mL/min/1. 73 m2 Comment: Interpretive Data Reference Interval Normal ?>/= 90 mL/min/1.73m2 Mildly decreased* ? 60 - 89 mL/min/1.73m2 Mildly to moderately decreased ?45 - 59 mL/min/1.73m2 Moderately to severely decreased ??30 - 44 mL/min/1.73m2 Severely decreased ?15 - 29 mL/min/1.73m2 Kidney Failure ?< 15 ??mL/min/1.73m2 *Relative to young adult level Estimated glomerular filtration rate is determined by the 2020 CKD-EPI equation recommended by the National Kidney Foundation (A Unifying Approach to GFR Estimation: Recommendations of the NKF-ASK Task Force on Reassessing the Inclusion of Race in Diagnosing Kidney Disease, JASN 2020). The CKD-EPI equation should not be used for patients with unstable renal function and has not been validated in children and those over 70. Current interpretive data was last reviewed 2021. Blood 03/12/2024 3:34 PM SILVERWARE ASSEMBLER 03/12/2024 4:13 PM SILVERWARE ASSEMBLER Rick Fabian MD LAB BLOOD ORDERABLES Final Resul t Performing Organization Address [facility] de Phone Number PAULA [facility] Department [place] [address] * Beta-CrossLaps (Beta-CTx) (03/12/2024 3:34 PM SILVERWARE ASSEMBLER) Beta-CTx 455 pg/mL Comment: Interpretive Data Female: ?? Premenopausal: ??136 - 689 ??pg/mL ?? Postmenopausal: 177 - 1015 pg/mL Male: ?? 30 - 50 years: ??131 - 670 ??pg/mL ?? 51 - 70 years: ??171 - 1060 pg/mL ?? > 70 ?years: ??152 - 858 ??pg/mL Current interpretive data was last revised on 2023. Blood 03/12/2024 3:34 PM SILVERWARE ASSEMBLER 03/12/2024 4:10 PM SILVERWARE ASSEMBLER us Rick Fabian MD LAB BLOOD ORDERABLES Final Resul t Performing Organization Address [facility] de Phone Number GILMERNER [facility] [place] [address] * Alkaline phosphatase, bone specific (03/12/2024 3:34 PM SILVERWARE ASSEMBLER) Pathologist [facility] [place] Alk phos, bone 13 0 - 20 mcg/L [facility] Comment: ADDITIONAL INFORMATION Liver-derived alkaline phosphatase (ALP) increases apparent measured bone alkaline phosphatase (BAP) in this assay by 2.5 mcg/L to 5.8 mcg/L for every 100 U/L of liver ALP. ?? Accordingly, serum specimens with significant elevations of liver ALP activity may yield artificially elevated results in the BAP assay. Test Performed by: [place] [address] Medical Clinic Manager: Imelda Perez Ph.D.; CLIA# [id number] Blood 03/12/2024 3:34 PM SILVERWARE ASSEMBLER 03/12/2024 5:05 PM SILVERWARE ASSEMBLER Rick Fabian MD LAB BLOOD ORDERABLES Final Resul t PAULA [facility] [place] [address] [facility] * Osteocalcin (03/12/2024 3:34 PM SILVERWARE ASSEMBLER) [facility] Osteocalcin See Comment Comment: Credited; Hemolyzed Specimen Interpretive Data Female: ?? Premenopausal: ??7.6 - 35.1 ng/mL ?? Postmenopausal: 7.3 - 38.5 ng/mL Male: ?? 30 - 50 years: ??8.4 - 36.7 ng/mL ?? > 50 ?years: ??9.9 - 35.6 ng/mL Current interpretive data was last revised on 2021. Blood 03/12/2024 3:34 PM SILVERWARE ASSEMBLER 03/12/2024 4:10 PM SILVERWARE ASSEMBLER us Rick Fabian MD LAB BLOOD ORDERABLES Final Resul t Performing Organization Address [facility] de Phone Number [facility] [place] [address] * Phosphorus (03/12/2024 3:34 PM SILVERWARE ASSEMBLER) Phosphorus, pl 4.1 2.3 - 4.5 mg/dL Blood 03/12/2024 3:34 PM SILVERWARE ASSEMBLER 03/12/2024 4:10 PM SILVERWARE ASSEMBLER us Rick Fabian MD LAB BLOOD ORDERABLES Final Resul t Performing Organization Address [facility] de Phone Number [facility] Department [place] [address] * PTH (03/12/2024 3:34 PM SILVERWARE ASSEMBLER) Pathologist [facility] PTH 29 15 - 65 pg/mL Blood 03/12/2024 3:34 PM SILVERWARE ASSEMBLER 03/12/2024 4:10 PM SILVERWARE ASSEMBLER Rick Fabian MD LAB BLOOD ORDERABLES Final Resul t Performing Organization Address [facility] de Phone Number [facility] Department [place] [address] * Gamma GT (03/12/2024 3:34 PM SILVERWARE ASSEMBLER) GGT 44 10 - 50 Units/L Blood 03/12/2024 3:34 PM SILVERWARE ASSEMBLER 03/12/2024 4:10 PM SILVERWARE ASSEMBLER us Rick Fabian MD LAB BLOOD ORDERABLES Final Resul t Performing Organization Address [facility] de Phone Number [facility] Department [place] [address] * (ABNORMAL) Comprehensive metabolic panel (03/12/2024 3:34 PM SILVERWARE ASSEMBLER) Sodium 138 135 - 145 mmol/L Potassium, pl 4.5 3.3 - 4.9 mmol/L [facility] Chloride 103 97 - 110 mmol/L [facility] CO2 26 22 - 32 mmol/L [facility] Anion gap 9 2 - 15 mmol/L [facility] BUN 16 6 - 25 mg/dL [facility] Creatinine 0.97 0.80 - 1.30 mg/dL [facility] Glucose 114 70 - 199 mg/dL [facility] Comment: Interpretive Data Fasting glucose >/= 126 mg/dl is diagnostic for diabetes. ?? Fasting is defined as no caloric intake for at least 8 hours. Fasting glucose between 100 mg/dl to 125 mg/dl is diagnostic of prediabetes. In a patient with classic symptoms of hyperglycemia or hyperglycemic crisis, a random glucose >/= 200 mg/dl is diagnostic for diabetes. In the absence of unequivocal hyperglycemia, results should be confirmed by repeat testing. The classification and Diagnosis of Diabetes Diabetes Care 2021; 46: S19-S40. Current interpretive data was last revised 2022. Calcium 9.1 8.5 - 10.3 mg/dL [facility] Bilirubin, total 0.2 0.1 - 1.2 mg/dL [facility] Protein, pl 6.9 6.5 - 8.5 g/dL [facility] Albumin 3.4(L) 3.5 - 5.0 g/dL [facility] Alk phos 110 40 - 130 Units/L [facility] ALT 28 7 - 55 Units/L [facility] AST 32 10 - 50 Units/L [facility] Blood 03/12/2024 3:34 PM SILVERWARE ASSEMBLER 03/12/2024 4:10 PM SILVERWARE ASSEMBLER us Rick Fabian MD LAB BLOOD ORDERABLES Final Resul t [facility] Department [place] [address] * X-ray chest 2 views (03/12/2024 2:41 PM SILVERWARE ASSEMBLER) Anatomical Region Laterality Modality Body, Chest N/A Computed Radiogr aphy 03/12/2024 3:17 PM SILVERWARE ASSEMBLER Impressions 03/12/2024 3:17 PM SILVERWARE ASSEMBLER Comparison 12/17/2023. Heart size normal. ??Pediatric median sternotomy wires noted. ??No pneumothorax or pleural effusion. ??Clear lungs. Electronically signed by: Cyril Gilbert M.D. Narrative 03/12/2024 3:17 PM SILVERWARE ASSEMBLER EXAMINATION: 2 view chest radiograph Procedure Note Cyril Gilbert MD - 03/12/2024 EXAMINATION: 2 view chest radiograph IMPRESSION: Comparison 12/17/2023. Heart size normal. Pediatric median sternotomy wires noted. No pneumothorax or pleural effusion. Clear lungs. Electronically signed by: Cyril Gilbert M.D. us Jam Sands MD IMG XR PROCEDURES Fi nal Result * IgG (02/15/2024 3:10 PM SILVERWARE ASSEMBLER) Pathologist [facility] Immunoglobulin G 1,167 700 - 1,600 mg/dL Blood 02/15/2024 3:10 PM SILVERWARE ASSEMBLER 02/15/2024 5:04 PM SILVERWARE ASSEMBLER Rupal Isabel MD LAB BLOOD ORDERABLES Fi nal Result [facility] [place] [address] * Hepatitis panel, acute (11/28/2020 5:33 PM CDT) Pathologist [facility] Hep A IgM Nonreactive Nonreactive [facility] Comment: Interpretive Data: If Hep A IgM Ab is reported as Equivocal, a new sample should be drawn in two weeks for testing. Current interpretive data was last revised on 19. Hep B core IgM Nonreactive Nonreactive [facility] Comment: Interpretive Data If HepB Core IgM Ab is reported as Equivocal, a new sample should be drawn in two weeks for testing. Current interpretive data was last revised on 19. Hep C Ab Nonreactive Nonreactive [facility] Comment:Antibodies to HCV no t detected. Does NOT exclude the possibility of recent exposure to HCV. HepBsAg Nonreactive Nonreactive [facility] Blood 11/28/2020 5:33 PM CDT 11/28/2020 5:53 PM CDT Jazzmine Mccartney NP LAB MICROBIO LOGY - GENERAL ORDERABLES Edited Result - Final [facility] [place] [address] from Last 3 Months or Most Recently Relevant to Health Maintenance Insurance [place] [facility] CHOICE [facility] HMO/PPO Address: [address] [address] [place] [address] [employer] OPEN ACCESS [facility] [place] [facility] [place] [facility] CHOICE [facility] HMO/PPO Address: [address] [address] [place] [address] [employer] OPEN ACCESS [place] [employer] OPEN ACCESS [facility] CHOICE [facility]US [facility] HMO/PPO Address: [facility] [address] [place] [address] Advance Directives For more information, please contact: [phone] Documents on File Type Date Recorded Patient Admissions Consultant Expl anation Power of Bulk Filler 10/21/2021 12:58 PM ADVANCE DIRECTIVE 10/14/2019 12:35 PM ADVANCE DIRECTIVE 06/12/2018 12:24 PM * Full Code (Latest Code Status on File) Date Activated Date Inactivated Comments 12/17/2023 8:02 PM 12/19/2023 6:48 PM * Full Code Date Activated Date Inactivated Comments 08/20/2022 3:47 PM 08/21/2022 6:02 PM * Full Code Date Activated Date Inactivated Comments 10/09/2021 7:32 AM 10/18/2021 10:30 PM * Full Code Date Activated Date Inactivated Comments 09/26/2021 11:03 AM 09/27/2021 8:50 PM * Full Code Date Activated Date Inactivated Comments 12/31/2020 5:09 PM 01/02/2021 6:56 PM Care Teams Acid Retort Operator Relationship Specialty Start Date End Date Zoila Gleason MD [address] [place] [address] PCP - General 09/29/16 Rupal Isabel MD [address] [facility] [address] [place] [address] Referring Physician Allergy and Immunology 01/11/19 Rekha Osborne MD [address] [place] [address] Medical Oncologist/Time Study Engineer Hematology 05/11/20
--- OUTSIDE RECORDS SUMMARY | 2024-05-02 15:23 | XMS_ITS | Clinical Summary ---
Author Organization [facility] ospital Address [address] [place] [address] Care Team Providers Care Joint Cutter Name Role Phone Zoila Gleason MD Primary Care Provider [phone] Rupal Isabel MD Unavailable Rekha Osborne MD Unavailable [phone] Allergies Active Allergy Reactions Criticality Noted Date [...] for anaphylaxis Never used. 07/07/19 21 Active Darius Rene [facility] spacer USE WITH INHALER DIRECTED 09/25/19 21 [...] 1 tablet (112 mcg total) by mouth director cardiology before breakfast 03/10/20 23 Active Solu-CORTEF Act-O-Vial, [...] stooling. -As of 12/18/23 at 1300, per [facility] [phone] - E. Coli. -Repeat blood cultures NGTD -Received cefepime; changed to cefuroxime to complete a 7 day course. Source is suspected to be UTI -TTE neg for vegetations Leukocytosis 12/17/2023 Assessment & Plan (12/17/2023 8:50 PM CDT): CBC at [facility] 12/15 WBC 20.5 (81% neutrophils). Ddx includes bacteremia and stress dose steroids. -Treat bacteremia as discussed elsewhere. Dental caries extending into pulp 03/14/2023 Residual ventricular septal defect (VSD) followi ng repair 03/03/2023 Status post atrial septal defect repair 03/03/20 23 Acute bronchitis due to other specified organism [...] Will continue with ceftriaxone (08/20-) and azithromycin (5/20-) but broaden if needed. 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 He had admitted in 2014 (19yo) with Hb of 6.3, WBC 4.4, Plt 190 and treated with prednisone. In 2015 he was evaluated for pancytopenia. Bone marrow biopsy was negative for malignancy, and he was treated with Rituximab and steroids. Rituximab in February/March 2019 was given due to another episode of cytopenia. His steroids have been weaned off since then.The etiology was thought as non-malignant and possible immune. In total he had three thrombocytopenia flare up responded to steroid and rituximab last time ([phone]). 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 Since he is pancytopenic at baseline, [...] bid - received stress dose steroids at [facility] - continue pred 5 BID - per [...] an anti-21 hydroxylase antibody to rule out [place]'s as well as a low dose ACTH stim test at some point after 72 hours from last stress dose. He is very well appearing and does not have an indication for stress dosing at this time. - send anti-21 hydroxylase antibody (red top 2 ml) 2107 to [facility] - consider ACTH stim test this admission [...] now nearly completely healed. Is following with [facility] as an outpatient. Next appointment Assessment & [...] - Continue Triad, Allevyn and Mepelex - PAWFrench is following, will see patient on 11/07. CVID (common variable immunodeficiency) ([facility] ) 04/16/2018 Assessment & Plan (12/19/2023 1:52 [...] and platelets (101) are all stable from 11/06. IgG level drawn this AM was 1867.0, [...] AM CDT): Stable. Followed by endocrinology at [facility]. Currently on 150 mcg levothyroxine daily. [...] Avoid concomitant administration of Levothyroxine with patient's SERVICE CENTER SPECIALIST iron. Separate dosing by at least 4 hours. Pediatric Endocrinology will continue to follow. 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 - Continue Lovenox 40mg subQ daily (8/6 - ) - Per heme, can consider [...] infection. - Continue Lovenox 40mg subQ daily (8/6 - ) - Per heme, can consider [...] 07/27/2020 Hypogammaglobulinemia 04/16/20182018 Umbilical hernia 04/16/2018 08/05/2020 Encounters Date Type Department Care Team Description 04/25/2024 11:30 AM SUPERVIS[employer] Lab [facility] at [address] [place] [phone] AIHA (autoimmune hemolytic anemia) (HCC); Chronic ITP (idiopathic thrombocytopenia) (HCC) 04/25/2024 9:00 AM [employer]PER[employer]AMPING Office Visit [facility] Hematology [address] [facility] Medical Office Building 2 [address] [place] [address] Rekha Osborne MD AIHA (autoimmune hemolytic anemia) (HCC) (Primary Dx); Chronic ITP (idiopathic thrombocytopenia) (HCC); CVID (common variable immunodeficiency) (HCC); High risk medication use 04/25/2024 8:30 AM SUPERVISOR [employer] STAMPING Lab [facility] Oncology [address] [facility] [address] [place] [address] 04/11/2024 Orders Only [facility] Hematology [address] [facility] Floor 6 [place] [address] Saniya Alberts, ZOFIA 04/09/[address] [facility] 5th [place] [address] [place] [address] Kobi Og MD 04/01/2024 Telephone [facility] Hematology [facility] Floor 6 [place] [address] Saniya Alberts RN 03/19/[address] Medical Office Building 2 [address] [place] [address] Kobi Og MD 03/12/2024 6:15 PM [employer]PER[employer]AMPING Lab [facility] [address] [place] [phone] Osteoporosis without current pathological fracture, unspecified osteoporosis type 03/12/2024 3:40 PM [employer] - 03/12/2024 11:59 PM [employer]ING Hospital Encounter [facility] [address] [place] [phone] Osteoporosis without current pathological fracture, unspecified osteoporosis type Discharge Disposition: Discharge to home or self care 03/12/2024 2:34 PM [employer] - 03/12/2024 11:59 PM [employer]PER[employer] Hospital Encounter [facility] [address] [place] [address] Mild persistent asthma without complication Discharge Disposition: Discharge to home or self care 03/12/2024 2:30 PM [employer] Office Visit [facility] Pulmonary [address] [facility] Medicine 8th [place] [address] [place] [phone] Jam Sands MD Mild persistent asthma without complication (Primary Dx); Lymphocytic interstitial pneumonia (CMS/HCC) (HCC) 03/05/2024 9:20 AM [employer] Office Visit [facility] Bone Health [address] [facility] 5th [place] [address] [place] [phone] Kobi Og MD Osteoporosis without current pathological fracture, unspecified osteoporosis type (Primary Dx); Arpita's syndrome (CMS/HCC) (HCC); Adrenal insufficiency (HCC); Hypogonadism in male 02/21/2024 Telephone [facility] Allergy and Immunology [address] [place] [address] [place] [phone] Elodia Johns RN 02/15/2024 3:05 PM SUPER[employer]AMPING Lab [facility] at the [address] [phone] CVID (common variable immunodeficiency) (HCC) 02/15/2024 2:00 PM [employer] Office Visit [facility] Allergy and Immunology [address] [place] [address] [place] [phone] Rupal Isabel MD CVID (common variable immunodeficiency) (HCC) (Primary Dx); Arpita's syndrome (CMS/HCC) (HCC) 01/31/2024 Orders Only [facility] Endocrinology Metabolism and Lipid [address] [facility] Medical Office Building 4, [address] [place] [address] Jesenia Cottrell MD Arpita's syndrome (CMS/HCC) (HCC) (Primary Dx); Adrenal insufficiency (HCC); Osteoporosis without current pathological fracture, unspecified osteoporosis type; Hypogonadism in male from Last 3 Months Immunizations Name Administration Dates Next Due DTaP [...] Influenza, Trivalent, Preser vative Free, Intramuscular 03/09/2016 Zeuss (J&J) SARS-CoV-2 Vaccination 06/08/2020 MMR 10/01/2002,01/20/1999 Meningococcal B, OMV (Bexsero) 01/19/2023,2022,08/11/2021 Meningococcal Conjugate (Menveo) 08/11/2021 Meningococcal MCV4P (Menactra) 11/11/2020,2010 Pneumococcal Conjugate PCV 13 11/11/2020 Pneumococcal Polysaccharide PPV23 12/18/2012 Tdap 11/05/2008 Varicella 10/01/2002 Surgical History Surgery Date Site/Laterality Comments ASD REPAIR 1997 - 04/02/1998 HYPOSPADIAS CORRECTION 1997 - 04/02/1998 DUODENAL ATRESIA REPAIR 1997 - 04/02/1998 HERNIA REPAIR 04/03/1999 - 04/02/2000 SPLENECTOMY, TOTAL 12/02/2020 - 12/31/2020 Medical History Medical History Date Comments 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 - (Added by TW Conv) History of corrected hypospadias Hypospadias - (Added by TW Conv) Ventricular septal defect Ventri cular septal defect - (Added by TW Conv) Atrial septal defect Atrial sept al defect - (Added by TW Conv) Undescended testicle History of undescended testicle Asthma CVID (common variable immunodeficiency) On monthly IVIG Celiac disease Hemolytic anemia History of ITP AV canal Autoimmune thyroiditis Hypothyroid On synthroid Hypogammaglobulinemia Arpita's syndrome Atopic dermatitis Umbilical hernia Decubitus skin ulcer Acute hypoxemic respiratory failure ([facility]) 10/10/2019 Ventilator associated pneumo phi ([facility]) ([facility]) 10/16/2019 Acute non-cardiogenic pulmon chuy edema ([facility]) ([facility]) 10/24/2019 Pneumonia due to infectious organism 04/22/2020 Arterial thrombosis ([facility]) ([facility]) 10/23/2019 Hypotension 04/22/2020 Acute kidney injury ([facility]) 10/10/2019 Acute cystitis due to enterobacter 01/04/2020 Down syndrome Personal history of COVID-19 10/2019 Clotting disorder ([facility]) ([facility]) Heart disease s/p LA secondary to severe anemia GI (gastrointestinal bleed) Acute respiratory failure wi th hypoxia ([facility]) ([facility]) 08/20/2022 Family History Medical History Relation Name Comments Cancer Father Aidan Ch Aylin Hyperlipidemia Father Aidan Ch Aylin Hypertension Father Aidan Ch Aylin Thyroid disease Mother Early Paternal Grandfather Pal Aylin Heart attack Paternal Grandfather Pal Aylin Osteoporosis Paternal Grandfather Pal Aylin Anesthesia problems Neg Hx Broken bones Neg Hx Hip fracture Neg Hx Kyphosis Neg Hx Scoliosis Neg Hx Relation Name Status Comments Father Aidan Mastreesejose ramon Mother Paternal Grandfather Pal Mastjanak Social History Tobacco Use Types Packs/Day Years [...] week 10/11/2021 How often do you attend [facility] or yazidi services? Never 10/11/2021 Do you belong to any clubs o r organizations such as hinduism groups, unions, fraternal or athletic groups, or [...] place to sleep or slept in a prison (including now)? No 10/11/2021 Personal Safety Answer Date Recorded Have you ever been in or are you currently in a harmful physical or emotional relationship or is someone making you feel afraid or unsafe? Patient unable to answer 12/18/2023 Sex and Gender Information Value Date Recorded Sex Assigned at Not on file Legal Sex Male 1:53 AM SUPER[employer]ING Gender Identity Male 10/02/2023 12:44 PM CDT Sexual Orientation Don't know 11/15/2020 1: 06 PM CDT Obstetrics History Last Filed Vital Signs Vital Sign Reading Time Taken Comments Blood Pressure 109/70 04/25/2024 9:10 AM [employer] Pulse 72 04/25/2024 9:10 AM [employer] Temperature 36.8 ??C (98.2 ??F) 04/25/2024 9:10 AM CS T Respiratory Rate 18 03/12/2024 2:48 PM [employer] Oxygen Saturation 96% 03/12/2024 2:48 PM [employer] Inhaled Oxygen Concentration - - Weight 61.3 kg (135 lb 3.2 oz) 04/25/2024 9:10 A M [employer] Height 162.6 cm (5' 4 ) 04/25/2024 9:10 AM [employer] Body Mass Index 23.21 04/25/2024 9:10 AM [employer] Plan of Treatment Health Maintenance Due Date Last Done Comments Depression Screening 1997 Varicella Vaccines (2 of 2 - 2-dose childhood series) 12/24/2002 10/01/2002 Regular Well Visit/Exam 18-64 10/01/2015 HPV Vaccines (3 - Risk male 3-dose series) 12/15/2015 08/14/2015, 02/09/2012 Zoster Vaccine (1 of 2) 2016 DTaP/Tdap/Td Vaccine (6 - Td or Tdap) 11/05/2018 11/05/2008, 10/01/2002, 04/21/1998, Additional history exists Pneumococcal vaccine <65 (3 of 3 - PPSV23 or PCV20) 01/06/2021 11/11/2020, 12/18/2012 Covid-19 Vaccine (4 - 2023-2 5 season) 2023 02/17/2021, 01/27/2021, 06/08/2020 Influenza Vaccine (#1) 2023 , 02/03/2022, 01/27/2021, Additional history exists Hepatitis C Screening Completed 11/28/2020 Procedures Procedure Name Priority Date/Time Associated Diagnosis Comments EGFR Routine 04/25/2024 10:00 AM [employer] AIHA (autoimmune hemolytic anemia) (HCC) Chronic ITP (idiopathic thrombocytopenia) (HCC) DIFFERENTIAL AUTO Routine 04/25/2024 10: 00 AM [employer]ING AIHA (autoimmune hemolytic anemia) (HCC) Chronic ITP (idiopathic thrombocytopenia) (HCC) CBC WITH AUTO DIFFERENTIAL Routine 04/25/2024 10:00 AM [employer] AIHA (autoimmune hemolytic anemia) (HCC) Chronic ITP (idiopathic thrombocytopenia) (HCC) COMPREHENSIVE METABOLIC PANEL Routine 04/25/2024 10:00 AM [employer] AIHA (autoimmune hemolytic anemia) (HCC) Chronic ITP (idiopathic thrombocytopenia) (HCC) RETICULOCYTES Routine 04/25/2024 10:00 AM [employer]ING AIHA (autoimmune hemolytic anemia) (HCC) Chronic ITP (idiopathic thrombocytopenia) (HCC) HAPTOGLOBIN Routine 04/25/2024 10:00 AM [employer]ING AIHA (autoimmune hemolytic anemia) (HCC) Chronic ITP (idiopathic thrombocytopenia) (HCC) LACTATE DEHYDROGENASE Routine 04/25/2024 10:00 AM [employer]PER[employer]ING AIHA (autoimmune hemolytic anemia) (HCC) Chronic ITP (idiopathic thrombocytopenia) (HCC) DIRECT ANTIGLOBULIN TEST Routine 04/25/2024 10:00 AM [employer] AIHA (autoimmune hemolytic anemia) (HCC) Chronic ITP (idiopathic thrombocytopenia) (HCC) XR SCOLIOSIS AP LAT Schedule Routine, Read Routine (OP Routine) 03/12/2024 4:00 PM [employer] Osteoporosis without current pathological fracture, unspecified osteoporosis type EGFR Routine 03/12/2024 3:34 PM [employer] Osteoporosis without current pathological fracture, unspecified osteoporosis type BETA-CROSSLAPS (BETA-CTX) Routine 03/12/2024 3:34 PM [employer] Osteoporosis without current pathological fracture, unspecified osteoporosis type COMPREHENSIVE METABOLIC PANEL Routine 03/12/2024 3:34 PM [employer] Osteoporosis without current pathological fracture, unspecified osteoporosis type PTH Routine 03/12/2024 3:34 PM [employer] Osteoporosis without current pathological fracture, unspecified osteoporosis type PHOSPHORUS Routine 03/12/2024 3:34 PM [employer] Osteoporosis without current pathological fracture, unspecified osteoporosis type OSTEOCALCIN Routine 03/12/2024 3:34 PM [employer] Osteoporosis without current pathological fracture, unspecified osteoporosis type ALKALINE PHOSPHATASE, BONE SPECIFIC Routine 03/12/2024 3:34 PM [employer] Osteoporosis without current pathological fracture, unspecified osteoporosis type GAMMA GT Routine 03/12/2024 3:34 PM [employer] Osteoporosis without current pathological fracture, unspecified osteoporosis type XR CHEST PA LATERAL 2 VIEWS Schedule Routine, Read Routine (OP Routine) 03/12/2024 2:41 PM [employer] Mild persistent asthma without complication IGG Routine 02/15/2024 3:10 PM [employer] CVID (common variable immunodeficiency) (HCC) HEPATITIS PANEL, ACUTE Routine 11/28/2020 5:33 PM CDT from Last 3 Months or Most Recently Relevant to Health Maintenance Results * eGFR (04/25/2024 10:00 AM SUPER[employer]) eGFR >90 >=60 mL/min/1. 73 m2 Comment: [...] was last reviewed 2021. Testing performed by: [facility], [address] [place] [address] Blood 04/25/2024 10:0 0 AM [employer] 04/25/2024 10:16 AM [employer] us Rekha Osborne MD LAB BLOOD ORDERABLES Final Result [facility] [address] [address] Department [place] [address] * (ABNORMAL) Differential, auto (04/25/2024 10:00 AM [employer]PER[employer]) Neutrophil abs 8.6(H) 1.5 - 6.5 K/cumm Comment:Testing performed by : [facility], [address] [place] [address] Imm gran abs 0.5(H) 0.0 - 0.1 K/cumm PAULA CAMPOS Comment:Testing performed by : [facility] 2, [address] [place] [address] Lymphocyte abs 2.3 0.8 - 3.3 K/cumm PAULA CAMPOS Comment:Testing performed by : [facility] 2, [address] [place] [address] Monocyte abs 1.4(H) 0.2 - 0.8 K/cumm PAULA CAMPOS Comment:Testing performed by : [facility] 2, [address] [place] [address] Eosinophil abs 0.1 0.0 - 0.5 K/cumm CERNER BJWCH Comment:Testing performed by : [facility], [facility], [address] [place] [address] Basophil abs 0.2(H) 0.0 - 0.1 K/cumm CERNER [facility]WCH Comment:Testing performed by : [facility], [facility], [address] [place] [address] Neutrophil pct 65.5 % CERNER [facility] Comment: Interpretive Data Percent cell count reference ranges are not reported, since discordance with absolute values may lead to misinterpretation of CBC data. Current Interpretive Data was last revised on 2017. Testing performed by: [facility], [facility], [address] [place] [address] Imm gran pct 4.0 % CERNER [facility] Comment: Interpretive Data Percent cell count reference ranges are not reported, since discordance with absolute values may lead to misinterpretation of CBC data. Current Interpretive Data was last revised on 2017. Testing performed by: [facility], [facility], [address] [place] [address] Lymphocyte pct 17.2 % C[facility]ER [facility] Comment: Interpretive Data Percent cell count reference ranges are not reported, since discordance with absolute values may lead to misinterpretation of CBC data. Current Interpretive Data was last revised on 2017. Testing performed by: [facility], [facility], [address] [place] [address] Monocyte pct 10.9 % C[facility]ER [facility] Comment: Interpretive Data Percent cell count reference ranges are not reported, since discordance with absolute values may lead to misinterpretation of CBC data. Current Interpretive Data was last revised on 2017. Testing performed by: [facility], [facility], [address] [place] [address] Eosinophil pct 0.7 % C[facility]ER [facility] Comment: Interpretive Data Percent cell count reference ranges are not reported, since discordance with absolute values may lead to misinterpretation of CBC data. Current Interpretive Data was last revised on 2017. Testing performed by: [place] [address], [address] [place] [address] Basophil pct 1.7 % PAULA CAMPOS Comment: Interpretive Data Percent cell count reference ranges are not reported, since discordance with absolute values may lead to misinterpretation of CBC data. Current Interpretive Data was last revised on 2017. Testing performed by: [place] [address], [address] [place] [address] Blood 04/25/2024 10:0 0 AM [employer] 04/25/2024 10:05 AM [employer] us Rekha Osborne MD LAB BLOOD ORDERABLES Final Result [facility] [address] [facility]. Department [place] [address] * (ABNORMAL) CBC with auto differential (04/25/2024 10:00 AM [employer]PER[employer]) WBC 13.1(H) 3.8 - 9.9 K/cumm Comment:Testing performed by : [facility] 2, [address] [place] [address] Hgb 15.1 13.0 - 17.5 g/dL PAULA CAMPOS Comment:Testing performed by : [place] [address], [address] [place] [address] Hct 45.6 38.9 - 50.3 % PAULA CAMPOS Comment:Testing performed by : [place] [address], [address] [place] [address] Plt 201 150 - 400 K/cumm PAULA CAMPOS Comment:Testing performed by : [facility] 2, [address] [place] [address] MPV 12.4(H) 9.1 - 12.3 fL PA[facility]A CAMPOS Comment:Testing performed by : [facility], [facility], [address] [place] [address] RBC 4.78 4.30 - 5.80 M/cumm PAULA CARIASCH Comment:Testing performed by : [facility] 2, [address] [place] [address] MCV 95 81 - 96 fL PAULA MERAZWCH Comment:Testing performed by : [place] [address], [address] [place] [address] MCH 31.6 27.1 - 33.3 pg PAULA MERAZWCH Comment:Testing performed by : [place] [address], [address] [place] [address] MCHC 33.1 32.3 - 35.7 g/dL PAULA MERAZWCH Comment:Testing performed by : [place] [address], [address] [place] [address] RDW CV 16.8(H) 11.1 - 14.9 % [facility] Comment:Testing performed by : [facility], [address] [place] [address] RDW SD 58.8(H) 35.7 - 48.1 fL PAULA BJW Comment:Testing performed by : [place] [address], [address] [place] [address] NRBC abs 0.03(H) 0.00 - 0.01 K/cumm PAULA MERAZW Comment:Testing performed by : [place] [address], [address] [place] [address] Blood 04/25/2024 10:0 0 AM [employer] 04/25/2024 10:05 AM [employer] us Rekha Osborne MD LAB BLOOD ORDERABLES Final Result [facility] [address] [facility] Laboratories [place], [place] [id number] * (ABNORMAL) Reticulocyte Count (04/25/2024 10:00 AM SUPER[employer]ING) [facility] Retics, absolute 0.104(H) 0.020 - 0.087 M/cumm Comment:Testing performed by : [facility], [facility], [address] [place] [address] Retics 2.2 0.4 - 2.9 % PAULA CAMPOS Comment:Testing performed by : [facility], [facility], [address] [place] [address] Reticulocyte Hgb 32.9 30.5 - 38.0 pg PAULA CAMPOS Comment:Testing performed by : [facility], [facility], [address] [place] [address] Blood 04/25/2024 10:0 0 AM [employer] 04/25/2024 10:05 AM [employer]PER[employer]ING Rekha Osborne MD LAB BLOOD ORDERABLES Final Result Performing Organization Address City/[facility]/ZIP Co de Phone Number [facility] [address] [facility]. [facility] [place] [address] * Direct antiglobulin test (04/25/2024 10:00 AM SUPERVISOR PRINTING AND STAMPING) [facility] HUMZA Poly Interp Negative Comment:Testing performed by : [facility], [address] [place] [address] Blood 04/25/2024 10:0 0 AM SUPERVISOR PRINTING AND STAMPING 04/25/2024 10:16 AM SUPERVISOR PRINTING AND STAMPING Rekha Osborne MD LAB BLOOD BANK TEST ORDERAB LES Final Result Performing Organization Address City/[facility]/ZIP Co de Phone Number [facility] [address] [facility]. [facility] [place] [place] [address] * Lactate dehydrogenase (LD) (04/25/2024 10:00 AM SUPERVISOR PRINTING AND STAMPING) [facility] Lactate dehydrogenase (LDH) 139 100 - 250 Units/L Comment:Testing performed by : [facility], [address], [place], [place] [address] Blood 04/25/2024 10:0 0 AM SUPERVISOR PRINTING AND STAMPING 04/25/2024 10:16 AM SUPERVISOR PRINTING AND STAMPING Rekha Osborne MD LAB BLOOD ORDERABLES Edited Result - Final Performing Organization Address City/[facility]/ZIP Co de Phone Number PAULA [facility] [address] Department of [employer] [place] [address] * (ABNORMAL) Haptoglobin (04/25/2024 10:00 AM SUPERVISOR PRINTING AND STAMPING) Haptoglobin 221(H) 30 - 200 mg/dL Comment:Testing performed by : [facility], [address] [place] [address], [place]., [address] Blood 04/25/2024 10:0 0 AM SUPERVISOR PRINTING AND STAMPING 04/25/2024 1:35 PM SUPERVISOR PRINTING AND STAMPING Rekha Osborne MD LAB BLOOD ORDERABLES Final Result Performing Organization Address City/[facility] Co de Phone Number [facility] [address] Department of [employer] [place] [address] * Comprehensive metabolic panel (04/25/2024 10:00 AM SUPERVISOR PRINTING AND STAMPING) Sodium 139 135 - 145 mmol/L Comment:Testing performed by : [facility], [address], [place], [place] [address] Potassium, pl 4.1 3.3 - 4.9 mmol/L [facility] Comment:Testing performed by : [facility], [address], [place], [place] [address] Chloride 103 97 - 110 mmol/L [facility] Comment:Testing performed by : [facility], [address], [place] [address] CO2 26 22 - 32 mmol/L [facility] Comment:Testing performed by : [facility], [address], [place] [address] Anion gap 10 2 - 15 mmol/L [facility] Comment:Testing performed by : [facility], [address], [place] [address] BUN 15 6 - 25 mg/dL [facility] Comment:Testing performed by : [facility], [address], [place] [address] Creatinine 0.80 0.80 - 1.30 mg/dL [facility] Comment:Testing performed by : [facility], [address], [place] [address] Glucose 98 70 - 199 mg/dL CERNER [...] was last revised 2022. Testing performed by: [facility], [address], [place] [address] Calcium 9.3 8.5 - 10.3 mg/dL [facility] Comment:Testing performed by : [facility], [address], [place] [address] Bilirubin, total 0.2 0.1 - 1.2 mg/dL [facility] Comment:Testing performed by : [facility], [address], [place] [address] Protein, pl 6.8 6.5 - 8.5 g/dL [facility] Comment:Testing performed by : [facility], [address], [place] [address] Albumin 3.7 3.5 - 5.0 g/dL [facility] Comment:Testing performed by : [facility], [address], [place], [place] [address] Alk phos 122 40 - 130 Units/L [facility] Comment:Testing performed by : [facility], [address], [place] [address] ALT 29 7 - 55 Units/L PAULA CARIASCH Comment:Testing performed by : [facility], [address], [place] [address] AST 23 10 - 50 Units/L [facility] Comment:Testing performed by : [facility], [address], [place] [address] Blood 04/25/2024 10:0 0 AM SUPERVISOR PRINTING AND STAMPING 04/25/2024 10:16 AM SUPERVISOR PRINTING AND STAMPING us Rekha Osborne MD LAB BLOOD ORDERABLES Edited Result - Final PA[facility] [address] Department [place] [address] * XR Scoliosis 2 or 3 Views (03/12/2024 4:00 PM SUPERVISOR PRINTING AND STAMPING) Anatomical Region Laterality Modality Spine N/A Computed Radiogr aphy 03/12/2024 4:28 PM SUPERVISOR PRINTING AND STAMPING Impressions 03/12/2024 4:28 PM SUPERVISOR PRINTING AND STAMPING No compression deformities of the spine. Electronically signed by: Inderjit Valle D.O. Narrative 03/12/2024 4:28 PM SUPERVISOR PRINTING AND STAMPING EXAMINATION: XR SCOLIOSIS AP AND LATERAL HISTORY: [...] spine. Electronically signed by: Inderjit Valle D.O. us Rick Fabian MD IMG XR PROCEDURES Final Result * eGFR (03/12/2024 3:34 PM SUPERVISOR PRINTING AND STAMPING) eGFR >90 >=60 mL/min/1. 73 m2 Comment: [...] last reviewed 2021. Blood 03/12/2024 3:34 PM SUPERVISOR PRINTING AND STAMPING 03/12/2024 4:13 PM SUPERVISOR PRINTING AND STAMPING us Rick Fabian MD LAB BLOOD ORDERABLES Final Resul t [facility] Department [place] [address] * Beta-CrossLaps (Beta-CTx) (03/12/2024 3:34 PM SUPERVISOR PRINTING AND STAMPING) [facility] Beta-CTx 455 pg/mL Comment: Interpretive Data Female: ?? Premenopausal: ??136 - 689 ??pg/mL ?? Postmenopausal: 177 - 1015 pg/mL Male: ?? 30 - 50 years: ??131 - 670 ??pg/mL ?? 51 - 70 years: ??171 - 1060 pg/mL ?? > 70 ?years: ??152 - 858 ??pg/mL Current interpretive data was last revised on 2023. Blood 03/12/2024 3:34 PM SUPERVISOR PRINTING AND STAMPING 03/12/2024 4:10 PM SUPERVISOR PRINTING AND STAMPING us Rick Fabian MD LAB BLOOD ORDERABLES Final Resul t PAULA [facility] Department [place] [address] * Alkaline phosphatase, bone specific (03/12/2024 3:34 PM SUPERVISOR PRINTING AND STAMPING) [facility] Alk phos, bone 13 0 - 20 mcg/L [facility] Comment: ADDITIONAL INFORMATION Liver-derived alkaline phosphatase (ALP) increases apparent measured bone alkaline phosphatase (BAP) in this assay by 2.5 mcg/L to 5.8 mcg/L for every 100 U/L of liver ALP. ?? Accordingly, serum specimens with significant elevations of liver ALP activity may yield artificially elevated results in the BAP assay. Test Performed by: [facility] [address] [place] [address] Yard Spotter: Imelda Perez Ph.D.; CLIA# [id number] Blood 03/12/2024 3:34 PM SUPERVISOR PRINTING AND STAMPING 03/12/2024 5:05 PM SUPERVISOR PRINTING AND STAMPING Rick Fabian MD LAB BLOOD ORDERABLES Final Resul t Performing Organization Address [facility] Co de Phone Number [facility] [employer] [address] [facility] * Osteocalcin (03/12/2024 3:34 PM SUPERVISOR PRINTING AND STAMPING) Osteocalcin See Comment Comment: Credited; Hemolyzed Specimen Interpretive Data Female: ?? Premenopausal: ??7.6 - 35.1 ng/mL ?? Postmenopausal: 7.3 - 38.5 ng/mL Male: ?? 30 - 50 years: ??8.4 - 36.7 ng/mL ?? > 50 ?years: ??9.9 - 35.6 ng/mL Current interpretive data was last revised on 2021. Blood 03/12/2024 3:34 PM SUPERVISOR PRINTING AND STAMPING 03/12/2024 4:10 PM SUPERVISOR PRINTING AND STAMPING us Rick Fabian MD LAB BLOOD ORDERABLES Final Resul t Performing Organization Address [facility] Co de Phone Number [facility] [place] [address] * Phosphorus (03/12/2024 3:34 PM SUPERVISOR PRINTING AND STAMPING) Phosphorus, pl 4.1 2.3 - 4.5 mg/dL Blood 03/12/2024 3:34 PM SUPERVISOR PRINTING AND STAMPING 03/12/2024 4:10 PM SUPERVISOR PRINTING AND STAMPING Rick Fabian MD LAB BLOOD ORDERABLES Final Resul t Performing Organization Address [facility] Co de Phone Number PAULA [facility] of [employer] [place] [address] * PTH (03/12/2024 3:34 PM SUPERVISOR PRINTING AND STAMPING) PTH 29 15 - 65 pg/mL Blood 03/12/2024 3:34 PM SUPERVISOR PRINTING AND STAMPING 03/12/2024 4:10 PM SUPERVISOR PRINTING AND STAMPING Rick Fabian MD LAB BLOOD ORDERABLES Final Resul t Performing Organization Address City/[facility] Co de Phone Number [facility] [place] [address] * Gamma GT (03/12/2024 3:34 PM SUPERVISOR PRINTING AND STAMPING) Pathologist [facility] GGT 44 10 - 50 Units/L Blood 03/12/2024 3:34 PM SUPERVISOR PRINTING AND STAMPING 03/12/2024 4:10 PM SUPERVISOR PRINTING AND STAMPING Rick Fabian MD LAB BLOOD ORDERABLES Final Resul t Performing Organization Address [facility] de Phone Number [facility] Department [place] [address] * (ABNORMAL) Comprehensive metabolic panel (03/12/2024 3:34 PM SUPERVISOR PRINTING AND STAMPING) [facility] Sodium 138 135 - 145 mmol/L Potassium, pl 4.5 3.3 - 4.9 mmol/L [facility] Chloride 103 97 - 110 mmol/L [facility] CO2 26 22 - 32 mmol/L [facility] Anion gap 9 2 - 15 mmol/L [facility] BUN 16 6 - 25 mg/dL [facility] Creatinine 0.97 0.80 - 1.30 mg/dL [facility] Glucose 114 70 - 199 mg/dL [facility] Comment: Interpretive Data Fasting glucose >/= 126 [...] 2022. Calcium 9.1 8.5 - 10.3 mg/dL [facility] Bilirubin, total 0.2 0.1 - 1.2 mg/dL [facility] Protein, pl 6.9 6.5 - 8.5 g/dL [facility] Albumin 3.4(L) 3.5 - 5.0 g/dL [facility] Alk phos 110 40 - 130 Units/L [facility] ALT 28 7 - 55 Units/L [facility] AST 32 10 - 50 Units/L [facility] Blood 03/12/2024 3:34 PM SUPERVISOR PRINTING AND STAMPING 03/12/2024 4:10 PM SUPERVISOR PRINTING AND STAMPING us Rick Fabian MD LAB BLOOD ORDERABLES Final Resul t [facility] Department [place] [address] * X-ray chest 2 views (03/12/2024 2:41 PM SUPERVISOR PRINTING AND STAMPING) Anatomical Region Laterality Modality Body, Chest N/A Computed Radiogr aphy 03/12/2024 3:17 PM SUPERVISOR PRINTING AND STAMPING Impressions 03/12/2024 3:17 PM SUPERVISOR PRINTING AND STAMPING Comparison 12/17/2023. Heart size normal. ??Pediatric median sternotomy wires noted. ??No pneumothorax or pleural effusion. ??Clear lungs. Electronically signed by: Cyril Gilbert M.D. Narrative 03/12/2024 3:17 PM SUPERVISOR PRINTING AND STAMPING EXAMINATION: 2 view chest radiograph Procedure Note Cyril Gilbert MD - 03/12/2024 EXAMINATION: 2 view chest radiograph IMPRESSION: Comparison 12/17/2023. Heart size normal. Pediatric median sternotomy wires noted. No pneumothorax or pleural effusion. Clear lungs. Electronically signed by: Cyril Gilbert M.D. us Jam Sands MD IMG XR PROCEDURES Fi nal Result * IgG (02/15/2024 3:10 PM SUPERVISOR PRINTING AND STAMPING) Immunoglobulin G 1,167 700 - 1,600 mg/dL Blood 02/15/2024 3:10 PM SUPERVISOR PRINTING AND STAMPING 02/15/2024 5:04 PM SUPERVISOR PRINTING AND STAMPING us Rupal Isabel MD LAB BLOOD ORDERABLES Fi nal Result Performing Organization Address [facility]/ZIP Co de Phone Number [facility] Department [place] [address] * Hepatitis panel, acute (11/28/2020 5:33 PM CDT) Hep A IgM Nonreactive Nonreactive [facility] Comment: Interpretive Data: If Hep A IgM Ab is reported as Equivocal, a new sample should be drawn in two weeks for testing. Current interpretive data was last revised on 19. Hep B core IgM Nonreactive Nonreactive [facility] Comment: Interpretive Data If HepB Core IgM Ab is reported as Equivocal, a new sample should be drawn in two weeks for testing. Current interpretive data was last revised on 19. Hep C Ab Nonreactive Nonreactive [facility] Comment:Antibodies to HCV no t detected. Does NOT exclude the possibility of recent exposure to HCV. HepBsAg Nonreactive Nonreactive [facility] Blood 11/28/2020 5:33 PM CDT 11/28/2020 5:53 PM CDT Jazzmine Mccartney NP LAB MICROBIO LOGY - GENERAL ORDERABLES Edited Result - Final Performing Organization Address City/[facility]/ZIP Co de Phone Number [facility] Department [place] [address] from Last 3 Months or Most Recently Relevant to Health Maintenance Insurance [place] [facility] CHOICE PLUS [employer] OPEN ACCESS [place] P[place] [facility] CHOICE PLUS [employer] OPEN ACCESS IDPA [facility] [place] [employer] [place] ACCESS [facility] CHOICE PLUS Advance Directives For more information, please contact: [phone] Documents on File Type Date Recorded Patient Campaign Fundraiser Expl anation Power of Kit Planner 10/21/2021 12:58 PM ADVANCE DIRECTIVE 10/14/2019 12:35 [...] 5:09 PM 01/02/2021 6:56 PM Care Teams Joint Cutter Relationship Specialty Start Date End Date Zoila Gleason MD [address] [place] [address] PCP - General 09/29/16 Rupal Isabel MD [address] [place] [address] [address] [place] [address] Referring Physician Allergy and Immunology 01/11/19 Rekha Osborne MD [address] [place] [address] Medical Oncologist/Roving Weight Gauger Hematology 05/11/20
--- OUTSIDE RECORDS SUMMARY | 2024-05-02 15:24 | XMS_ITS | Encounter Summary ---
Author Organization [facility] Address [address] [place] [address] Phone Care Team Providers Care Pea Viner Mechanic Name Role Phone Zoila Gleason MD Primary Care Provider Rupal Isabel MD Unavailable [phone] Rekha Osborne MD Unavailable [phone] Mayuri Lyn RN Unavailable [phone] Michelle Colin HAND DEICER ELEMENT WINDER Unavailable [phone] Encounter Details Date Type Department Care Team (Latest Contact Info) Description 07/09/2020 Orders Only [facility] Scanning, Provider [...] on file Legal Sex Male 1:53 AM PHYSICAL SECURITY SPECIALIST Gender Identity Male 10/02/2023 12:44 PM CDT Sexual Orientation Don't know 11/15/2020 1: 06 PM CDT documented as of this encounter Plan of Treatment Not on file documented as of this encounter Procedures Procedure Name Priority Date/Time Associated Diagnosis Comments SCAN - LABS 07/09/2020 documented in this encounter Results * SCAN - LABS (07/09/2020) us Provider Scanning Final Result documented in this encounter Visit Diagnoses Not on filedocumented in this encounter Additional Health Concerns Infection Onset Date Last Indicated Resolved Time COVID: Suspected 09/25/2020 09/25/2020 09/25/2020 10:11 AM CDT Rhino/Enterovirus 09/25/2020 09/25/2020 10/02/2020 3:05 AM CDT COVID: Recovered 11/29/2020 11/29/2020 03/29/2021 3:05 AM PHYSICAL SECURITY SPECIALIST COVID: Suspected 10/09/2021 10/09/2021 10/09/2021 9:37 AM CDT COVID: Suspected 03/06/2022 03/06/2022 03/06/2022 9:30 AM PHYSICAL SECURITY SPECIALIST RSV, droplet 03/06/2022 03/06/2022 03/13/2022 3:05 AM PHYSICAL SECURITY SPECIALIST COVID: Suspected 06/26/2022 06/26/2022 06/26/2022 5:59 PM CDT Coronavirus, droplet 06/26/2022 06/26/2022 023 3:06 AM CDT documented as of this encounter Care Teams Pea Viner Mechanic Relationship Specialty Start Date End Date Zoila Gleason MD [address] [place] [id number] PCP - General 09/29/16 Rupal Isabel MD [address] [facility] [address] [place] [address] Referring Physician Allergy and Immunology 01/11/19 Rekha Osborne MD [address] [place] [address] Medical Oncologist/Community Health Director Hematology 05/11/20 Mayuri Lyn, RN [address] [facility] [address] [place], [place] [address] SHOP Outpatient Modeling Manager 12/04/20 01/04/21 Michelle Colin, HAND DEICER ELEMENT WINDER 45[address] [facility] ([facility] Mailstop [phone] [place] [address] SHOP Outpatient Modeling Manager 10/19/21 11/16/21 documented as of this encounter
--- OUTSIDE RECORDS SUMMARY | 2024-05-02 15:24 | XMS_ITS | Encounter Summary ---
Author Organization [facility] Address [address] [place] [address] Phone Care Team Providers Care Foil Spooler Name Role Phone Zoila Gleason MD Primary Care Provider Rupal Isabel MD Unavailable [phone] Rekha Osborne MD Unavailable [phone] Mayuri Lyn RN Unavailable [phone] Michelle Colin CONCRETE CONVEYOR OPERATOR Unavailable [phone] Encounter Details Date Type Department Care Team (Latest Contact Info) Description 08/17/2020 Orders Only [facility] Scanning, Provider [...] on file Legal Sex Male 1:53 AM COMPLEX HUMAN RESOURCES MANAGER Gender Identity Male 10/02/2023 12:44 PM CDT Sexual Orientation Don't know 11/15/2020 1: 06 PM CDT documented as of this encounter Plan of Treatment Not on file documented as of this encounter Procedures Procedure Name Priority Date/Time Associated Diagnosis Comments SCAN - LABS 08/17/2020 documented in this encounter Results * SCAN - LABS (08/17/2020) us Provider Scanning Final Result documented in this encounter Visit Diagnoses Not on filedocumented in this encounter Additional Health Concerns Infection Onset Date Last Indicated Resolved Time COVID: Suspected 09/25/2020 09/25/2020 09/25/2020 10:11 AM CDT Rhino/Enterovirus 09/25/2020 09/25/2020 10/02/2020 3:05 AM CDT COVID: Recovered 11/29/2020 11/29/2020 03/29/2021 3:05 AM COMPLEX HUMAN RESOURCES MANAGER COVID: Suspected 10/09/2021 10/09/2021 10/09/2021 9:37 AM CDT COVID: Suspected 03/06/2022 03/06/2022 03/06/2022 9:30 AM COMPLEX HUMAN RESOURCES MANAGER RSV, droplet 03/06/2022 03/06/2022 03/13/2022 3:05 AM COMPLEX HUMAN RESOURCES MANAGER COVID: Suspected 06/26/2022 06/26/2022 06/26/2022 5:59 PM CDT Coronavirus, droplet 06/26/2022 06/26/2022 023 3:06 AM CDT documented as of this encounter Care Teams Foil Spooler Relationship Specialty Start Date End Date Zoila Gleason MD [address] [place] [id number] PCP - General 09/29/16 Rupal Isabel MD [address] [facility] [address] [place] [address] Referring Physician Allergy and Immunology 01/11/19 Rekha Osborne MD [address] [place] [address] Medical Oncologist/Brand Strategy Manager Hematology 05/11/20 Mayuri Lyn, RN [address] [facility] [address] [place], [place] [address] SHOP Outpatient Chemistry Technician 12/04/20 01/04/21 Michelle Colin, CONCRETE CONVEYOR OPERATOR 45[address] [facility] [place] Mailstop [phone] [place] [address] SHOP Outpatient Chemistry Technician 10/19/21 11/16/21 documented as of this encounter
--- OUTSIDE RECORDS SUMMARY | 2024-05-02 15:24 | XMS_ITS | Encounter Summary ---
Author Organization [facility] Address [address] [place] [address] Phone Care Team Providers Care Head Start Assistant Teacher Name Role Phone Zoila Gleason MD Primary Care Provider [phone] Rupal Isabel MD Unavailable [phone] Rekha Osborne MD Unavailable [phone] Mayuri Lyn RN Unavailable [phone] Michelle Colin AIR BRAKE RIGGER Unavailable [phone] Encounter Details Date Type Department Care Team (Latest Contact Info) Description 04/15/2020 Orders Only [facility] Scanning, Provider [...] on file Legal Sex Male 1:53 AM CARD SELLER Gender Identity Male 10/02/2023 12:44 PM CDT Sexual Orientation Don't know 11/15/2020 1: 06 PM CDT documented as of this encounter Plan of Treatment Not on file documented as of this encounter Procedures Procedure Name Priority Date/Time Associated Diagnosis Comments SCAN - LABS 04/15/2020 documented in this encounter Results * SCAN - LABS (04/15/2020) us Provider Scanning Final Result documented in this encounter Visit Diagnoses Not on filedocumented in this encounter Additional Health Concerns Infection Onset Date Last Indicated Resolved Time COVID: Suspected 04/21/2020 04/21/2020 04/21/2020 11:24 AM CARD SELLER Respiratory Infection (MICKEY), contact + droplet Comment:Automatically added due to negative COVID-19 result. 04/21/2020 04/21/2020 05/05/2020 3:0 6 AM CARD SELLER COVID: Suspected 04/21/2020 04/21/2020 04/21/2020 6:48 PM CARD SELLER COVID: Suspected 09/25/2020 09/25/2020 09/25/2020 10:11 AM CDT Rhino/Enterovirus 09/25/2020 09/25/2020 10/02/2020 3:05 AM CDT COVID: Recovered 11/29/2020 11/29/2020 03/29/2021 3:05 AM CARD SELLER COVID: Suspected 10/09/2021 10/09/2021 10/09/2021 9:37 AM CDT COVID: Suspected 03/06/2022 03/06/2022 03/06/2022 9:30 AM CARD SELLER RSV, droplet 03/06/2022 03/06/2022 03/13/2022 3:05 AM CARD SELLER COVID: Suspected 06/26/2022 06/26/2022 06/26/2022 5:59 PM CDT Coronavirus, droplet 06/26/2022 06/26/2022 023 3:06 AM CDT documented as of this encounter Care Teams Head Start Assistant Teacher Relationship Specialty Start Date End Date Zoila Gleason MD [address] [place] [address] PCP - General 09/29/16 Rupal Isabel MD [address] [place] [address] [facility] [address] [place] [address] Referring Physician Allergy and Immunology 01/11/19 Rekha Osborne MD [address] [place] [address] Medical Oncologist/Staffing Specialist Hematology 05/11/20 Mayuri Lyn, RN [address] [facility] [address] [place] [address] SHOP Outpatient Vice President Of Manufacturing 12/04/20 01/04/21 Michelle Colin LCSW 08[address] [facility] ([facility]) Mailstop [phone] [place] [address] SHOP Outpatient Vice President Of Manufacturing 10/19/21 11/16/21 documented as of this encounter
--- OUTSIDE RECORDS SUMMARY | 2024-05-02 15:24 | XMS_ITS | Encounter Summary ---
Author Organization [facility] Address [address] [place] [address] Phone Care Team Providers Care Arrt Technologist Name Role Phone Zoila Gleason MD Primary Care Provider Rupal Isabel MD Unavailable [phone] Rekha Osborne MD Unavailable [phone] Mayuri Lyn RN Unavailable [phone] Michelle ColinW Unavailable [phone] Encounter Details Date Type Department Care Team (Latest Contact Info) Description 04/29/2019 Orders Only [facility] Scanning, Provider Social History Tobacco Use Types Packs/Day Years Used Date Smoking Tobacco: Never Alcohol Use Standard Drinks/Week Comments Never 0 (1 standard drink = 0.6 oz pur e alcohol) AUDIT-C Answer Date Recorded Frequency of Alcohol Consumption Never 06/11/2018 Average Number of Drinks Not on file 019 Frequency of Binge Drinking Not on file 06/01 Sex and Gender Information Value Date Recorded Sex Assigned at Not on file Legal Sex Male 1:53 AM RENTAL CAR FERRY DRIVER Gender Identity Male 10/02/2023 12:44 PM CDT Sexual Orientation Don't know 11/15/2020 1: 06 PM CDT documented as of this encounter Plan of Treatment Not on file documented as of this encounter Procedures Procedure Name Priority Date/Time Associated Diagnosis Comments SCAN - LABS 04/29/2019 documented in this encounter Results * SCAN - LABS (04/29/2019) us Provider Scanning Final Result documented in this encounter Visit Diagnoses Not on filedocumented in this encounter Additional Health Concerns Infection Onset Date Last Indicated Resolved Time COVID: Suspected 10/10/2019 10/10/2019 10/10/2019 3:37 PM CDT COVID19 Comment:Talked with ID. Patient is cleared to come off covid-19 precautions. 10/10/2019 10/26/2019 11/04/2019 9:51 AM C DT COVID: Suspected 10/24/2019 10/24/2019 10/24/2019 1:46 PM CDT COVID: Recovered Comment:Added based on recent COVID infection. 11/04/2019 11/20/2019 03/03/2020 3:[address] COVID: Suspected 12/28/2019 12/28/2019 12/28/2019 6:43 PM CDT Respiratory Infection (MICKEY), contact + droplet Comment:Automatically added due to negative COVID-19 result. 12/28/2019 12/28/2019 12/30/2019 9:0 4 AM CDT COVID: Suspected 04/21/2020 04/21/2020 04/21/2020 11:24 AM RENTAL CAR FERRY DRIVER Respiratory Infection (MICKEY), contact + droplet Comment:Automatically added due to negative COVID-19 result. 04/21/2020 04/21/2020 05/05/2020 3:0 6 AM RENTAL CAR FERRY DRIVER COVID: Suspected 04/21/2020 04/21/2020 04/21/2020 6:48 PM RENTAL CAR FERRY DRIVER COVID: Suspected 09/25/2020 09/25/2020 09/25/2020 10:11 AM CDT Rhino/Enterovirus 09/25/2020 09/25/2020 10/02/2020 3:05 AM CDT COVID: Recovered 11/29/2020 11/29/2020 03/29/2021 3:05 AM RENTAL CAR FERRY DRIVER COVID: Suspected 10/09/2021 10/09/2021 10/09/2021 9:37 AM CDT COVID: Suspected 03/06/2022 03/06/2022 03/06/2022 9:30 AM RENTAL CAR FERRY DRIVER RSV, droplet 03/06/2022 03/06/2022 03/13/2022 3:05 AM RENTAL CAR FERRY DRIVER COVID: Suspected 06/26/2022 06/26/2022 06/26/2022 5:59 PM CDT Coronavirus, droplet 06/26/2022 06/26/2022 023 3:06 AM CDT documented as of this encounter Care Teams Arrt Technologist Relationship Specialty Start Date End Date Zoila Gleason MD [address] [place] [address] PCP - General 09/29/16 Rupal Isabel MD 10 [facility] [address] [place] [address] Referring Physician Allergy and Immunology 01/11/19 Rekha Osborne MD [address] [place] [address] Medical Oncologist/County Judge Hematology 05/11/20 Mayuri Lyn, RN 4590 [facility] [address] [place] [address] SHOP Outpatient Silk Crepe Machine Operator 12/04/20 01/04/21 Michelle Colin LCSW 4590 [facility] ([facility]) Mailstop [phone] [place] [address] SHOP Outpatient Silk Crepe Machine Operator 10/19/21 11/16/21 documented as of this encounter
--- OUTSIDE RECORDS SUMMARY | 2024-05-02 15:24 | XMS_ITS | Encounter Summary ---
Author Organization [facility] Address [address] [place] [address] Phone Care Team Providers Care Steward/Stewardess Economy Class Name Role Phone Zoila Gleason MD Primary Care Provider Rupal Isabel MD Unavailable [phone] Rekha Osborne MD Unavailable [phone] Mayuri Lyn RN Unavailable [phone] Michelle Colin HAM SMOKER Unavailable [phone] Encounter Details Date Type Department Care Team (Latest Contact Info) Description 09/07/2020 Orders Only [facility] Scanning, Provider [...] on file Legal Sex Male 1:53 AM AUXILIARY EQUIPMENT TENDER Gender Identity Male 10/02/2023 12:44 PM CDT Sexual Orientation Don't know 11/15/2020 1: 06 PM CDT documented as of this encounter Plan of Treatment Not on file documented as of this encounter Procedures Procedure Name Priority Date/Time Associated Diagnosis Comments SCAN - LABS 09/07/2020 documented in this encounter Results * SCAN - LABS (09/07/2020) us Provider Scanning Final Result documented in this encounter Visit Diagnoses Not on filedocumented in this encounter Additional Health Concerns Infection Onset Date Last Indicated Resolved Time COVID: Suspected 09/25/2020 09/25/2020 09/25/2020 10:11 AM CDT Rhino/Enterovirus 09/25/2020 09/25/2020 10/02/2020 3:05 AM CDT COVID: Recovered 11/29/2020 11/29/2020 03/29/2021 3:05 AM AUXILIARY EQUIPMENT TENDER COVID: Suspected 10/09/2021 10/09/2021 10/09/2021 9:37 AM CDT COVID: Suspected 03/06/2022 03/06/2022 03/06/2022 9:30 AM AUXILIARY EQUIPMENT TENDER RSV, droplet 03/06/2022 03/06/2022 03/13/2022 3:05 AM AUXILIARY EQUIPMENT TENDER COVID: Suspected 06/26/2022 06/26/2022 06/26/2022 5:59 PM CDT Coronavirus, droplet 06/26/2022 06/26/2022 023 3:06 AM CDT documented as of this encounter Care Teams Steward/Stewardess Economy Class Relationship Specialty Start Date End Date Zoila Gleason MD [address] [place] [id number] PCP - General 09/29/16 Rupal Isabel MD 10 [facility] [address] [place] [address] Referring Physician Allergy and Immunology 01/11/19 Rekha Osborne MD [address] [place] [address] Medical Oncologist/Pilot Plant Technician Hematology 05/11/20 Mayuri Lyn, RN 4590 [facility] [address] [place], [place] [id number] SHOP Outpatient Sisal Picker 12/04/20 01/04/21 Michelle Colin, HAM SMOKER 4590 [facility] ([facility]) Mailstop [phone] [place] [address] SHOP Outpatient Sisal Picker 10/19/21 11/16/21 documented as of this encounter
--- OUTSIDE RECORDS SUMMARY | 2024-05-02 15:24 | XMS_ITS | Encounter Summary ---
Author Organization [facility] Address [address] [place] [address] Phone Care Team Providers Care Material Stockkeeper Yard Name Role Phone Zoila Gleason MD Primary Care Provider Rupal Isabel MD Unavailable [phone] Rekha Osborne MD Unavailable Mayuri Lyn RN Unavailable [phone] Michelle Colin TRUCK ENGINE ASSEMBLER Unavailable [phone] Encounter Details Date Type Department Care Team (Latest Contact Info) Description 07/22/2020 Orders Only [facility] Scanning, Provider [...] on file Legal Sex Male 1:53 AM NUT GRADER Gender Identity Male 10/02/2023 12:44 PM CDT Sexual Orientation Don't know 11/15/2020 1: 06 PM CDT documented as of this encounter Plan of Treatment Not on file documented as of this encounter Procedures Procedure Name Priority Date/Time Associated Diagnosis Comments SCAN - LABS 07/22/2020 documented in this encounter Results * SCAN - LABS (07/22/2020) us Provider Scanning Final Result documented in this encounter Visit Diagnoses Not on filedocumented in this encounter Additional Health Concerns Infection Onset Date Last Indicated Resolved Time COVID: Suspected 09/25/2020 09/25/2020 09/25/2020 10:11 AM CDT Rhino/Enterovirus 09/25/2020 09/25/2020 10/02/2020 3:05 AM CDT COVID: Recovered 11/29/2020 11/29/2020 03/29/2021 3:05 AM NUT GRADER COVID: Suspected 10/09/2021 10/09/2021 10/09/2021 9:37 AM CDT COVID: Suspected 03/06/2022 03/06/2022 03/06/2022 9:30 AM NUT GRADER RSV, droplet 03/06/2022 03/06/2022 03/13/2022 3:05 AM NUT GRADER COVID: Suspected 06/26/2022 06/26/2022 06/26/2022 5:59 PM CDT Coronavirus, droplet 06/26/2022 06/26/2022 023 3:06 AM CDT documented as of this encounter Care Teams Material Stockkeeper Yard Relationship Specialty Start Date End Date Zoila Gleason MD [address] [place] [phone] PCP - General 09/29/16 Rupal Isabel MD 10 [facility] [address] [place] [address] Referring Physician Allergy and Immunology 01/11/19 Rekha Osborne MD [address] [place] [address] Medical Oncologist/Occ Therapist Hematology 05/11/20 Mayuri Lyn, RN 4590 [facility] [address] [place], [place] [id number] SHOP Outpatient Apparatus Cleaner 12/04/20 01/04/21 Michelle Colin, TRUCK ENGINE ASSEMBLER 4590 [facility] ([facility] Mailstop [phone] [place] [address] SHOP Outpatient Apparatus Cleaner 10/19/21 11/16/21 documented as of this encounter
--- OUTSIDE RECORDS SUMMARY | 2024-05-02 15:24 | XMS_ITS | Encounter Summary ---
Author Organization [facility] Address [address] [place] [address] Phone Care Team Providers Care Order Takers Supervisor Name Role Phone Zoila Gleason MD Primary Care Provider [phone] Rupal Isabel MD Unavailable [phone] Rekha Osborne MD Unavailable [phone] Mayuri Lyn RN Unavailable [phone] Michelle ColinW Unavailable [phone] Encounter Details Date Type Department Care Team (Latest Contact Info) Description 12/23/2020 Orders Only [facility] Scanning, Provider [...] than three times a week 12/10/2020 Attends Orthodox Services Not on file 12/10 Active Member of Clubs or Organizations Not on f ile 12/10/2020 Attends Club or Organization Meetings Not on vasile e 12/10/2020 Are you , , di vorced, , never , or living with a partner? Never 12/10/2020 AUDIT-C Answer Date Recorded Q1: How often do you have a drink containing alc ohol? Never 12/08/2020 Average Number of Drinks Not on file 021 Q3: How often do you have si x or more drinks on one occasion? Never 12/08/2020 Overall Financial Resource Strain (CARDIA) Answe r [...] place to sleep or slept in a m[facility]p (including now)? No 12/10/2020 Sex and Gender Information Value Date Recorded Sex Assigned at Not on file Legal Sex Male 1:53 AM CABLE TOOL OPERATOR Gender Identity Male 10/02/2023 12:44 PM CDT Sexual Orientation Don't know 11/15/2020 1: 06 PM CDT documented as of this encounter Plan of Treatment Not on file documented as of this encounter Procedures Procedure Name Priority Date/Time Associated Diagnosis Comments SCAN - LABS 12/23/2020 documented in this encounter Results * SCAN - LABS (12/23/2020) us Provider Scanning Final Result documented in this encounter Visit Diagnoses Not on filedocumented in this encounter Additional Health Concerns Infection Onset Date Last Indicated Resolved Time COVID: Recovered 11/29/2020 11/29/2020 03/29/2021 3:05 AM CABLE TOOL OPERATOR COVID: Suspected 10/09/2021 10/09/2021 10/09/2021 9:37 AM CDT COVID: Suspected 03/06/2022 03/06/2022 03/06/2022 9:30 AM CABLE TOOL OPERATOR RSV, droplet 03/06/2022 03/06/2022 03/13/2022 3:05 AM CABLE TOOL OPERATOR COVID: Suspected 06/26/2022 06/26/2022 06/26/2022 5:59 PM CDT Coronavirus, droplet 06/26/2022 06/26/2022 023 3:06 AM CDT documented as of this encounter Care Teams Order Takers Supervisor Relationship Specialty Start Date End Date Zoila Gleason MD [address] [place] [address] PCP - General 09/29/16 Rupal Isabel MD 10 [facility] [address] [place] [address] Referring Physician Allergy and Immunology 01/11/19 Rekha Osborne MD [address] [place] [address] Medical Oncologist/Electroencephalographic Technologist Hematology 05/11/20 Mayuri Lyn, RN 4590 [facility] [address] [place] [address] SHOP Outpatient District Sales Representative 12/04/20 01/04/21 Michelle Colin LCSW 4590 [facility] ([facility] Mailstop [phone] [place] [address] SHOP Outpatient District Sales Representative 10/19/21 11/16/21 documented as of this encounter
--- OUTSIDE RECORDS SUMMARY | 2024-05-02 15:24 | XMS_ITS | Encounter Summary ---
Author Organization [facility] Address [address] [place] [address] Phone Care Team Providers Care Supervisor Partial Denture Department Name Role Phone Zoila Gleason MD Primary Care Provider [phone] Rupal Isabel MD Unavailable [phone] Rekha Osborne MD Unavailable [phone] Mayuri Lyn RN Unavailable [phone] Michelle Colin MOLDED GOODS EMBOSSING PRESS OPERATOR Unavailable [phone] Encounter Details Date Type Department Care Team (Latest Contact Info) Description 06/25/2020 Orders Only [facility] Scanning, Provider [...] on file Legal Sex Male 1:53 AM HORSE WRANGLER Gender Identity Male 10/02/2023 12:44 PM CDT Sexual Orientation Don't know 11/15/2020 1: 06 PM CDT documented as of this encounter Plan of Treatment Not on file documented as of this encounter Procedures Procedure Name Priority Date/Time Associated Diagnosis Comments SCAN - LABS 06/25/2020 documented in this encounter Results * SCAN - LABS (06/25/2020) us Provider Scanning Final Result documented in this encounter Visit Diagnoses Not on filedocumented in this encounter Additional Health Concerns Infection Onset Date Last Indicated Resolved Time COVID: Suspected 09/25/2020 09/25/2020 09/25/2020 10:11 AM CDT Rhino/Enterovirus 09/25/2020 09/25/2020 10/02/2020 3:05 AM CDT COVID: Recovered 11/29/2020 11/29/2020 03/29/2021 3:05 AM HORSE WRANGLER COVID: Suspected 10/09/2021 10/09/2021 10/09/2021 9:37 AM CDT COVID: Suspected 03/06/2022 03/06/2022 03/06/2022 9:30 AM HORSE WRANGLER RSV, droplet 03/06/2022 03/06/2022 03/13/2022 3:05 AM HORSE WRANGLER COVID: Suspected 06/26/2022 06/26/2022 06/26/2022 5:59 PM CDT Coronavirus, droplet 06/26/2022 06/26/2022 023 3:06 AM CDT documented as of this encounter Care Teams Supervisor Partial Denture Department Relationship Specialty Start Date End Date Zoila Gleason MD [address] [place] [phone] PCP - General 09/29/16 Rupal Isabel MD 10 [facility] [address] [place] [address] Referring Physician Allergy and Immunology 01/11/19 Rekha Osborne MD [address] [place] [address] Medical Oncologist/Paleologist Hematology 05/11/20 Mayuri Lyn, RN 4590 [facility] [address] [place], [place] [id number] SHOP Outpatient Security Attendant 12/04/20 01/04/21 Michelle Colin, MOLDED GOODS EMBOSSING PRESS OPERATOR 4590 [facility] ([facility]) Mailstop [phone] [place] [address] SHOP Outpatient Security Attendant 10/19/21 11/16/21 documented as of this encounter
--- OUTSIDE RECORDS SUMMARY | 2024-05-02 15:24 | XMS_ITS | Encounter Summary ---
Author Organization [facility] Address [address] [place] [address] Phone Care Team Providers Care Geography Teacher Name Role Phone Zoila Gleason MD Primary Care Provider Rupal Isabel MD Unavailable [phone] Rekha Osborne MD Unavailable [phone] Mayuri Lyn RN Unavailable [phone] Michelle Colin ACTIVE DIRECTORY ADMINISTRATOR Unavailable [phone] Encounter Details Date Type Department Care Team (Latest Contact Info) Description 07/22/2020 Orders Only [facility] Scanning, Provider [...] on file Legal Sex Male 1:53 AM LIFESTYLE CONSULTANT Gender Identity Male 10/02/2023 12:44 PM [...] COVID: Recovered 11/29/2020 11/29/2020 03/29/2021 3:05 AM LIFESTYLE CONSULTANT COVID: Suspected 10/09/2021 10/09/2021 10/09/2021 9:37 AM CDT COVID: Suspected 03/06/2022 03/06/2022 03/06/2022 9:30 AM LIFESTYLE CONSULTANT RSV, droplet 03/06/2022 03/06/2022 03/13/2022 3:05 AM LIFESTYLE CONSULTANT COVID: Suspected 06/26/2022 06/26/2022 06/26/2022 5:59 PM CDT Coronavirus, droplet 06/26/2022 06/26/2022 023 3:06 AM CDT documented as of this encounter Care Teams Geography Teacher Relationship Specialty Start Date End Date Zoila Gleason MD [address] [place] [phone] PCP - General 09/29/16 Rupal Isabel MD 10 [facility] [address] [place] [address] Referring Physician Allergy and Immunology 01/11/19 Rekha Osborne MD [address] [place] [address] Medical Oncologist/Price Clerk Hematology 05/11/20 Mayuri Lyn, RN 4590 [facility] [address] [place], [place] [id number] SHOP Outpatient Healthcare Technician 12/04/20 01/04/21 Michelle Colin, ACTIVE DIRECTORY ADMINISTRATOR 4590 [facility] ([facility] [place] [place] Mailstop [phone] [place] [address] SHOP Outpatient Healthcare Technician 10/19/21 11/16/21 documented as of this encounter
--- OUTSIDE RECORDS SUMMARY | 2024-05-02 15:24 | XMS_ITS | Encounter Summary ---
Author Organization [facility] Address [address] [place] [address] Phone Care Team Providers Care Attending Ambulatory Care Name Role Phone Zoila Gleason MD Primary Care Provider Rupal Isabel MD Unavailable [phone] Rekha Osborne MD Unavailable [phone] Mayuri Lyn RN Unavailable [phone] Michelle Colin HYDRAULIC BULL RIVETER OPERATOR Unavailable [phone] Encounter Details Date Type Department Care Team (Latest Contact Info) Description 07/09/2020 Orders Only [facility] Scanning, Provider [...] on file Legal Sex Male 1:53 AM DRAMA PROFESSOR Gender Identity Male 10/02/2023 12:44 PM CDT Sexual Orientation Don't know 11/15/2020 1: 06 PM CDT documented as of this encounter Plan of Treatment Not on file documented as of this encounter Procedures Procedure Name Priority Date/Time Associated Diagnosis Comments SCAN - LABS 07/09/2020 documented in this encounter Results * SCAN - LABS (07/09/2020) us Provider Scanning Edited Result - Final documented in this encounter Visit Diagnoses Not on filedocumented in this encounter Additional Health Concerns Infection Onset Date Last Indicated Resolved Time COVID: Suspected 09/25/2020 09/25/2020 09/25/2020 10:11 AM CDT Rhino/Enterovirus 09/25/2020 09/25/2020 10/02/2020 3:05 AM CDT COVID: Recovered 11/29/2020 11/29/2020 03/29/2021 3:05 AM DRAMA PROFESSOR COVID: Suspected 10/09/2021 10/09/2021 10/09/2021 9:37 AM CDT COVID: Suspected 03/06/2022 03/06/2022 03/06/2022 9:30 AM DRAMA PROFESSOR RSV, droplet 03/06/2022 03/06/2022 03/13/2022 3:05 AM DRAMA PROFESSOR COVID: Suspected 06/26/2022 06/26/2022 06/26/2022 5:59 PM CDT Coronavirus, droplet 06/26/2022 06/26/2022 023 3:06 AM CDT documented as of this encounter Care Teams Attending Ambulatory Care Relationship Specialty Start Date End Date Zoila Gleason MD [address] [place] [address] PCP - General 09/29/16 Rupal Isabel MD [address] [place] [address] [address] [place] [address] Referring Physician Allergy and Immunology 01/11/19 Rekha Osborne MD [address] [place] [address] Medical Oncologist/Narrow Gauge Brakeman Hematology 05/11/20 Mayuri Lyn, RN 4590 [facility] [address] [place], [place] [id number] LAST Outpatient Reference Library Assistant 12/04/20 01/04/21 Michelle Colin, HYDRAULIC BULL RIVETER OPERATOR 4590 [facility] ([facility]) Mailstop [phone] [place] [address] LAST Outpatient Reference Library Assistant 10/19/21 11/16/21 documented as of this encounter
--- OUTSIDE RECORDS SUMMARY | 2024-05-02 15:24 | XMS_ITS | Encounter Summary ---
Author Organization [facility] Address [address] [place] [address] Phone Care Team Providers Care Mechanical Equipment Sales Engineer Name Role Phone Zoila Gleason MD Primary Care Provider Rupal Isabel MD Unavailable [phone] Rekha Osborne MD Unavailable [phone] Mayuri Lyn RN Unavailable [phone] Michelle Colin INSTRUCTIONAL MANAGER Unavailable [phone] Encounter Details Date Type Department Care Team (Latest Contact Info) Description 07/29/2020 Orders Only [facility] Scanning, Provider [...] on file Legal Sex Male 1:53 AM ELECTRONIC INTELLIGENCE OFFICER Gender Identity Male 10/02/2023 12:44 PM CDT Sexual Orientation Don't know 11/15/2020 1: 06 PM CDT documented as of this encounter Plan of Treatment Not on file documented as of this encounter Procedures Procedure Name Priority Date/Time Associated Diagnosis Comments SCAN - LABS 07/29/2020 documented in this encounter Results * SCAN - LABS (07/29/2020) us Provider Scanning Final Result documented in this encounter Visit Diagnoses Not on filedocumented in this encounter Additional Health Concerns Infection Onset Date Last Indicated Resolved Time COVID: Suspected 09/25/2020 09/25/2020 09/25/2020 10:11 AM CDT Rhino/Enterovirus 09/25/2020 09/25/2020 10/02/2020 3:05 AM CDT COVID: Recovered 11/29/2020 11/29/2020 03/29/2021 3:05 AM ELECTRONIC INTELLIGENCE OFFICER COVID: Suspected 10/09/2021 10/09/2021 10/09/2021 9:37 AM CDT COVID: Suspected 03/06/2022 03/06/2022 03/06/2022 9:30 AM ELECTRONIC INTELLIGENCE OFFICER RSV, droplet 03/06/2022 03/06/2022 03/13/2022 3:05 AM ELECTRONIC INTELLIGENCE OFFICER COVID: Suspected 06/26/2022 06/26/2022 06/26/2022 5:59 PM CDT Coronavirus, droplet 06/26/2022 06/26/2022 023 3:06 AM CDT documented as of this encounter Care Teams Mechanical Equipment Sales Engineer Relationship Specialty Start Date End Date Zoila Gleason MD [address] [place] [phone] PCP - General 09/29/16 Rupal Isabel MD 10 [facility] [address] [place] [address] Referring Physician Allergy and Immunology 01/11/19 Rekha Osborne MD [address] [place] [address] Medical Oncologist/Childcare Attendant Hematology 05/11/20 Mayuri Lyn, RN 4590 [facility] [address] [place], [place] [id number] SHOP Outpatient Shellfish Dredge Operator 12/04/20 01/04/21 Michelle Colin, INSTRUCTIONAL MANAGER 4590 [facility] ([facility] Mailstop [phone] [place] [address] SHOP Outpatient Shellfish Dredge Operator 10/19/21 11/16/21 documented as of this encounter
--- OUTSIDE RECORDS SUMMARY | 2024-05-02 15:24 | XMS_ITS | Encounter Summary ---
Author Organization [facility] Address [address] [place] [address] Phone Care Team Providers Care Supervisor Engine Repair Name Role Phone Zoila Gleason MD Primary Care Provider [phone] Rupal Isabel MD Unavailable [phone] Rekha Osborne MD Unavailable [phone] Mayuri Lyn RN Unavailable [phone] Michelle Colin YARN BLEACHING MACHINE OPERATOR Unavailable [phone] Encounter Details Date Type Department Care Team (Latest Contact Info) Description 07/03/2020 Orders Only [facility] Scanning, Provider [...] on file Legal Sex Male 1:53 AM HEAVY DUTY TRUCK MECHANIC Gender Identity Male 10/02/2023 12:44 PM CDT Sexual Orientation Don't know 11/15/2020 1: 06 PM CDT documented as of this encounter Plan of Treatment Not on file documented as of this encounter Procedures Procedure Name Priority Date/Time Associated Diagnosis Comments SCAN - LABS 07/03/2020 documented in this encounter Results * SCAN - LABS (07/03/2020) us Provider Scanning Final Result documented in this encounter Visit Diagnoses Not on filedocumented in this encounter Additional Health Concerns Infection Onset Date Last Indicated Resolved Time COVID: Suspected 09/25/2020 09/25/2020 09/25/2020 10:11 AM CDT Rhino/Enterovirus 09/25/2020 09/25/2020 10/02/2020 3:05 AM CDT COVID: Recovered 11/29/2020 11/29/2020 03/29/2021 3:05 AM HEAVY DUTY TRUCK MECHANIC COVID: Suspected 10/09/2021 10/09/2021 10/09/2021 9:37 AM CDT COVID: Suspected 03/06/2022 03/06/2022 03/06/2022 9:30 AM HEAVY DUTY TRUCK MECHANIC RSV, droplet 03/06/2022 03/06/2022 03/13/2022 3:05 AM HEAVY DUTY TRUCK MECHANIC COVID: Suspected 06/26/2022 06/26/2022 06/26/2022 5:59 PM CDT Coronavirus, droplet 06/26/2022 06/26/2022 023 3:06 AM CDT documented as of this encounter Care Teams Supervisor Engine Repair Relationship Specialty Start Date End Date Zoila Gleason MD [address] [place] [id number] PCP - General 09/29/16 Rupal Isabel MD 10 [facility] [address] [place] [address] Referring Physician Allergy and Immunology 01/11/19 Rekha Osborne MD [address] [place] [address] Medical Oncologist/Quality Assurance Supervisor Final Hematology 05/11/20 Mayuri Lyn, RN 4590 [facility] [address] [place], [place] [address] SHOP Outpatient Truss Builder 12/04/20 01/04/21 Michelle Colni, YARN BLEACHING MACHINE OPERATOR 4590 [facility] ([facility]) Mailstop [phone] [place] [address] SHOP Outpatient Truss Builder 10/19/21 11/16/21 documented as of this encounter
[2024-05-02 15:57] LABS: Basophils Absolute Auto 0.2 K/mm3 (0.0-0.1); Basophils Percent Auto 1.8 % (0.2-1.2); Eosinophils Percent Auto 0.4 % (0-4.4); Hematocrit 50.2 % (42.0-52.0); Hemoglobin 16.5 g/dL (14.0-18.0); Immature Granulocyte Percent A 3.5 % (0-0.5); Immature Platelet Fraction Pct 14.7 % (0.9-11.2); Immature Reticulocyte Fraction 16.8 % (3.0-15.9); Lymphocytes Absolute Auto 2.71 K/mm3 (0.9-3.2); Lymphocytes Percent Auto 23.8 % (18.3-44.2); Mean Corpuscular HGB Conc 32.9 g/dl (32-36); Mean Corpuscular Hemoglobin 31.3 pg (26-34); Mean Corpuscular Volume 95.1 fl (80-100); Mean Platelet Volume 13.1 fl (7.4-10.4); Monocytes Absolute Auto 0.7 K/mm3 (0.1-0.6); Monocytes Percent Auto 6.1 % (2.6-8.5); Neutrophils Absolute Auto 7.4 K/mm3 (1.3-6.7); Neutrophils Percent Auto 64.4 % (45.5-73.1); Nucleated Red Blood Cells Perc 0.3 % (0.0-0.2); Platelet Count Result 69 k/mm3 (150-375); Red Blood Count 5.28 M/mm3 (4.6-6.20); Red Cell Distribution Width 16.4 % (11.5-14.5); Reticulocyte Hemoglobin Conten 33.9 pg (28.2-36.6); Reticulocyte Percent 1.78 % (0.7-4.3); Reticulocytes Absolute 0.09 10^6/uL (0.02-0.10); White Blood Count 11.4 K/mm3 (4.5-10.0)
[2024-05-02 16:04] LABS: Alanine Aminotransferase 48 U/L (6-50); Albumin Level 4.3 g/dL (3.5-5.1); Alkaline Phosphatase 134 U/L (38-126); Anion Gap 9 mmol/L (4-12); Aspartate Amino Transferase 44 U/L (17-59); Bilirubin,Total 0.5 mg/dL (0.2-1.3); Blood Urea Nitrogen 22 mg/dL (9-20); Carbon Dioxide 28 mmol/L (22-30); Chloride 102 mmol/L (98-107); Estimated Glomerular Filt Rate > 60; Glucose 93 mg/dL (65-110); Lactate Dehydrogenase 119 U/L (120-246); Potassium 4.7 mmol/L (3.4-5.0); Sodium 139 mmol/L (137-145)
[2024-05-02 16:07] LABS: Platelet Estimate Decreased (Adequate); Schistocytes None Seen
[2024-05-03 17:02] LABS: Haptoglobin 235 mg/dL (43-212)
== END 2024-05-02 14:49 | disposition home or self-care (01) ==
LOC: ANHGOSHLAB 14:49
PROVIDERS: PCP Pediatrics; Visit Provider Internal Medicine
DX: D69.6 Thrombocytopenia, unspecified (principal); D69.41 Evans syndrome; D58.9 Hereditary hemolytic anemia, unspecified; D64.9 Anemia, unspecified
CPT/HCPCS: 36415; 80053; 83010; 83615; 85025; 85046; 85055; 86880

== ENCOUNTER 2024-05-13 17:08 | Outpatient (CLI) | payer BC, MEDICAID, SELFPAY ==
--- OUTSIDE RECORDS SUMMARY | 2024-05-13 17:10 | XMS_ITS | Clinical Summary ---
Author Organization [employer] Address [address] [place] [address] Care Team Providers Care Executive Receptionist Name Role Phone Unavailable Primary Care Provider [...] WEEKS. 24 Packet 1 03/02/2023 2:48 PM [place]OD[place] MILL WORKER 3 Active clindamycin phosphate (CLEOCIN T) [...] procedure 4 Capsule 1 03/02/2023 2:45 PM [place]ODDY MILL WORKER 3 Active docusate sodium (COLACE) 100 mg capsule Take one capsule (100 mg) orally twice a day 60 Capsule 3 03/14/2023 12:03 PM [place]OD[place] MILL WORKER 3 Active levothyroxine 112 mcg tablet Take one tablet (112 mcg) orally every morning 90 Tablet 2 03/14/2023 12:03 PM SHOD[place] MILL WORKER 3 Active pantoprazole (PROTONIX) 40 mg Tablet, Delayed Release (E.C.) Take one tablet (40 mg) orally daily 60 Tablet 03/14/2023 12:03 PM SHODDY MILL WORKER 3 Active sertraline (ZOLOFT) 100 mg tablet Take one tablet (50 mg) orally daily 90 Tablet 3 3 Active hydrocortisone sod succ, PF, (Solu-CORTEF Act-O-Vial, PF,) 100 mg/2 mL Recon Soln Inject 2 mL (100 mg) by intramuscular injection 1 time daily as needed for adrenal crisis. 10 Each 2 04/17/2023 6:40 PM [place]OD[place] MILL WORKER 4 Active apixaban (Eliquis) 5 mg tablet Take 1 Tablet (5 mg) by mouth 2 times daily. 30 Tablet 1 04/08/2023 4:00 PM SHOD[place] MILL WORKER 4 Active nirmatrelvir-r itonavir (Paxlovid) 300(150mg x 2)-100 mg oral pack TAKE 2 TABLETS OF NIRMATRELVIR AND 1 TABLET OF RITONAVIR BY MOUTH TWICE DAILY FOR 5 DAYS 30 Each 4 Active predniSONE (DELTASONE) 1 mg tablet TAKE 1-4 TABLETS BY MOUTH DAILY DIRECTED BY PHYSICIAN. TAKE WITH 5 MG DAILY. 120 Tablet 2 04/25/2023 2:35 PM [place]OD[place] MILL WORKER 4 Active nirmatrelvir-r itonavir (Paxlovid) 300(150mg [...] failure. 90 Tablet 2 04/25/2023 2:35 PM SHOD[place] MILL WORKER 4 Active Immunizations Immunization Administration Dates [...]
--- OUTSIDE RECORDS SUMMARY | 2024-05-13 17:10 | XMS_ITS | Encounter Summary ---
Author Organization [facility] Address [address] [place] [address] Phone Care Team Providers Care Shipyard Helper Name Role Phone Zoila Gleason MD Primary Care Provider [phone] Rupal Isabel MD Unavailable [phone] Rekha Osborne MD Unavailable [phone] Encounter Details Date Type Department Care Team [...] often do you attend chur ch or presybeterian services? Never 10/11/2021 Do you belong to [...] place to sleep or slept in a fdc (including now)? No 10/11/2021 Sex and Gender Information Value Date Recorded Sex Assigned at Not on file Legal Sex Male 1:53 AM SOFTWARE SOLUTIONS ARCHITECT Gender Identity Male 10/02/2023 12:44 PM CDT [...] documented as of this encounter Care Teams Shipyard Helper Relationship Specialty Start Date End Date Zoila Gleason MD [address] [place] [address] PCP - General 09/29/16 Rupal Isabel MD 10 [facility] [address] [place] [address] Referring Physician Allergy and Immunology 01/11/19 Rekha Osborne MD [address] [place] [address] Medical Oncologist/Library Page Hematology 05/11/20 documented as of this encounter
--- OUTSIDE RECORDS SUMMARY | 2024-05-13 17:11 | XMS_ITS | Encounter Summary ---
Author Organization [facility] Address [address] [place] [address] Phone Care Team Providers Care Planer Chain Offbearer Name Role Phone Zoila Gleason MD Primary Care Provider [phone] Rupal Isabel MD Unavailable [phone] Rekha Osborne MD Unavailable [phone] Michelle Colin [facility] Unavailable [phone] Encounter Details Date Type Department Care Team [...] than three times a week 12/10/2020 Attends Alevism Services Not on file 12/10 Active Member [...] in a senior care (including now)? No 12/10/2020 Sex and Gender Information Value Date Recorded Sex Assigned at Not on file Legal Sex Male 1:53 AM DERRICK FOLLOWER Gender Identity Male 10/02/2023 12:44 PM CDT [...] COVID: Suspected 03/06/2022 03/06/2022 03/06/2022 9:30 AM DERRICK FOLLOWER RSV, droplet 03/06/2022 03/06/2022 03/13/2022 3:05 AM DERRICK FOLLOWER COVID: Suspected 06/26/2022 06/26/2022 06/26/2022 5:59 PM CDT Coronavirus, droplet 06/26/2022 06/26/2022 023 3:06 AM CDT documented as of this encounter Care Teams Planer Chain Offbearer Relationship Specialty Start Date End Date Zoila Gleason MD [address] [place] [address] PCP - General 09/29/16 Rupal Isabel MD 10 [facility] [address] [place] [address] Referring Physician Allergy and Immunology 01/11/19 Rekha Osborne MD [address] [place], [place] [id number] Medical Oncologist/Interactive Media Marketing Strategist Hematology 05/11/20 Michelle Colin, PURCHASING CONTRACTING CLERK 4590 [facility] ([facility]) Mailstop [phone] [place] [address] SHOP Outpatient Rim Roller Operator 10/19/21 11/16/21 documented as of this encounter
--- OUTSIDE RECORDS SUMMARY | 2024-05-13 17:11 | XMS_ITS | Encounter Summary ---
Author Organization [facility] Address [address] [place] [address] Phone Care Team Providers Care Gold Blower Name Role Phone Zoila Gleason MD Primary Care Provider Rupal Isabel MD Unavailable [phone] Rekha Osborne MD Unavailable [phone] Mayuri Lyn RN Unavailable [phone] Michelle Colin SALES ENGINEER Unavailable [phone] Encounter Details Date Type Department Care Team [...] on file Legal Sex Male 1:53 AM SOCIETY EDITOR Gender Identity Male 10/02/2023 12:44 PM CDT [...] COVID: Suspected 04/21/2020 04/21/2020 04/21/2020 11:24 AM SOCIETY EDITOR Respiratory Infection (MICKEY), contact + droplet Comment:Automatically added due to negative COVID-19 result. 04/21/2020 04/21/2020 05/05/2020 3:0 6 AM SOCIETY EDITOR COVID: Suspected 04/21/2020 04/21/2020 04/21/2020 6:48 PM SOCIETY EDITOR COVID: Suspected 09/25/2020 09/25/2020 09/25/2020 10:11 AM CDT Rhino/Enterovirus 09/25/2020 09/25/2020 10/02/2020 3:05 AM CDT COVID: Recovered 11/29/2020 11/29/2020 03/29/2021 3:05 AM SOCIETY EDITOR COVID: Suspected 10/09/2021 10/09/2021 10/09/2021 9:37 AM CDT COVID: Suspected 03/06/2022 03/06/2022 03/06/2022 9:30 AM SOCIETY EDITOR RSV, droplet 03/06/2022 03/06/2022 03/13/2022 3:05 AM SOCIETY EDITOR COVID: Suspected 06/26/2022 06/26/2022 06/26/2022 5:59 PM CDT Coronavirus, droplet 06/26/2022 06/26/2022 023 3:06 AM CDT documented as of this encounter Care Teams Gold Blower Relationship Specialty Start Date End Date Zoila Gleason MD [address] [place] [address] PCP - General 09/29/16 Rupal Isabel MD [address] [place] [address] [address] [place] [address] Referring Physician Allergy and Immunology 01/11/19 Rekha Osborne MD [address] [place] [address] Medical Oncologist/Air Press Operator Hematology 05/11/20 Mayuri Lyn, RN 4590 [facility] [address] [place] [address] LAST Outpatient Linen Room Worker 12/04/20 01/04/21 Michelle Colin LCSW 4590 [facility] ([facility] Mailstop [phone] [place] [address] SHOP Outpatient Linen Room Worker 10/19/21 11/16/21 documented as of this encounter
--- OUTSIDE RECORDS SUMMARY | 2024-05-13 17:11 | XMS_ITS | Encounter Summary ---
Author Organization [facility] Address [address] [place] [address] Phone Care Team Providers Care Injection Press Operator Name Role Phone Zoila Gleason MD Primary Care Provider Rupal Isabel MD Unavailable [phone] Rekha Osborne MD Unavailable [phone] Mayuri Lyn RN Unavailable [phone] Michelle Colin LAND DEPARTMENT HEAD Unavailable [phone] Encounter Details Date Type Department Care Team [...] on file Legal Sex Male 1:53 AM TREATING INSPECTOR Gender Identity Male 10/02/2023 12:44 PM CDT [...] COVID: Recovered 11/29/2020 11/29/2020 03/29/2021 3:05 AM TREATING INSPECTOR COVID: Suspected 10/09/2021 10/09/2021 10/09/2021 9:37 AM CDT COVID: Suspected 03/06/2022 03/06/2022 03/06/2022 9:30 AM TREATING INSPECTOR RSV, droplet 03/06/2022 03/06/2022 03/13/2022 3:05 AM TREATING INSPECTOR COVID: Suspected 06/26/2022 06/26/2022 06/26/2022 5:59 PM CDT Coronavirus, droplet 06/26/2022 06/26/2022 023 3:06 AM CDT documented as of this encounter Care Teams Injection Press Operator Relationship Specialty Start Date End Date Zoila Gleason MD [address] [place] [phone] PCP - General 09/29/16 Rupal Isabel MD 10 [facility] [address] [place] [address] Referring Physician Allergy and Immunology 01/11/19 Rekha Osborne MD [address] [place] [address] Medical Oncologist/Negative Developer Hematology 05/11/20 Mayuri Lyn, RN 4590 [facility] [address] [place], [place] [id number] SHOP Outpatient Business Representative 12/04/20 01/04/21 Michelle Colin, LAND DEPARTMENT HEAD 4590 [facility] ([facility] Mailstop [phone] [place] [address] SHOP Outpatient Business Representative 10/19/21 11/16/21 documented as of this encounter
--- OUTSIDE RECORDS SUMMARY | 2024-05-13 17:11 | XMS_ITS | Encounter Summary ---
Author Organization [facility] Address [address] [place] [address] Care Team Providers Care Marzipan Maker Name Role Phone Zoila Gleason MD Primary Care Provider Rupal Isabel MD Unavailable [phone] Rekha Osborne MD Unavailable Mayuri Lyn RN Unavailable Michelle ColinW Unavailable [phone] Encounter Details Date Type Department Care Team (Late st Contact Info) Description 11/12/2020 Telephone [facility] [address] [place] [address] Aiyana Lovelace RN Social History [...] on file Legal Sex Male 1:53 AM PHARMACOEPIDEMIOLOGIST Gender Identity Male 10/02/2023 12:44 PM CDT Sexual Orientation Don't know 11/15/2020 1: 06 PM CDT documented as of this encounter Plan of Treatment Not on file documented as of this encounter Visit Diagnoses Not on filedocumented in this encounter Additional Health Concerns Infection Onset Date Last Indicated Resolved Time COVID: Recovered 11/29/2020 11/29/2020 03/29/2021 3:05 AM PHARMACOEPIDEMIOLOGIST COVID: Suspected 10/09/2021 10/09/2021 10/09/2021 9:37 AM CDT COVID: Suspected 03/06/2022 03/06/2022 03/06/2022 9:30 AM PHARMACOEPIDEMIOLOGIST RSV, droplet 03/06/2022 03/06/2022 03/13/2022 3:05 AM PHARMACOEPIDEMIOLOGIST COVID: Suspected 06/26/2022 06/26/2022 06/26/2022 5:59 PM CDT Coronavirus, droplet 06/26/2022 06/26/2022 023 3:06 AM CDT documented as of this encounter Care Teams Marzipan Maker Relationship Specialty Start Date End Date Zoila Gleason MD [address] [place] [address] PCP - General 09/29/16 Rupal Isabel MD 10 [facility] [address] [place] [address] Referring Physician Allergy and Immunology 01/11/19 Rekha Osborne MD [address] [place] [address] Medical Oncologist/Nursing Education Specialist Hematology 05/11/20 Mayuri Lyn, RN 4590 [facility] [address] [place] [address] SHOP Outpatient Block Splitter Operator 12/04/20 01/04/21 Michelle Colin LCSW 4590 [facility] ([facility] Mailstop [phone] [place] [address] SHOP Outpatient Block Splitter Operator 10/19/21 11/16/21 documented as of this encounter
--- OUTSIDE RECORDS SUMMARY | 2024-05-13 17:11 | XMS_ITS | Encounter Summary ---
Author Organization [facility] Address [address] [place] [address] Phone Care Team Providers Care Burglar Alarm Operator Name Role Phone Zoila Gleason MD Primary Care Provider Rupal Isabel MD Unavailable [phone] Rekha Osborne MD Unavailable Mayuri Lyn RN Unavailable [phone] Michelle Colin CEMENT SACK BREAKER Unavailable [phone] Encounter Details Date Type Department Care Team [...] on file Legal Sex Male 1:53 AM PACKAGING TECHNICIAN Gender Identity Male 10/02/2023 12:44 PM CDT [...] COVID: Recovered 11/29/2020 11/29/2020 03/29/2021 3:05 AM PACKAGING TECHNICIAN COVID: Suspected 10/09/2021 10/09/2021 10/09/2021 9:37 AM CDT COVID: Suspected 03/06/2022 03/06/2022 03/06/2022 9:30 AM PACKAGING TECHNICIAN RSV, droplet 03/06/2022 03/06/2022 03/13/2022 3:05 AM PACKAGING TECHNICIAN COVID: Suspected 06/26/2022 06/26/2022 06/26/2022 5:59 PM CDT Coronavirus, droplet 06/26/2022 06/26/2022 023 3:06 AM CDT documented as of this encounter Care Teams Burglar Alarm Operator Relationship Specialty Start Date End Date Zoila Gleason MD [address] [place] [phone] PCP - General 09/29/16 Rupal Isabel MD 10 [facility] [address] [place] [address] Referring Physician Allergy and Immunology 01/11/19 Rekha Osborne MD [address] [place] [address] Medical Oncologist/Search Advertising Strategist Hematology 05/11/20 Mayuri Lyn, RN 4590 [facility] [address] [place], [place] [id number] SHOP Outpatient Senior Engineering Associate 12/04/20 01/04/21 Michelle Colin, CEMENT SACK BREAKER 4590 [facility] ([facility] Mailstop [phone] [place] [address] SHOP Outpatient Senior Engineering Associate 10/19/21 11/16/21 documented as of this encounter
--- OUTSIDE RECORDS SUMMARY | 2024-05-13 17:11 | XMS_ITS | Encounter Summary ---
Author Organization [facility] Address [address] [place] [address] Phone Care Team Providers Care Operations Analyst Name Role Phone Zoila Gleason MD Primary Care Provider Rupal Isabel MD Unavailable [phone] Rekha Osborne MD Unavailable [phone] Mayuri Lyn RN Unavailable [phone] Michelle Colin ANIMAL LABORATORY HELPER Unavailable [phone] Encounter Details Date Type Department Care Team [...] on file Legal Sex Male 1:53 AM WIRE SAWYER Gender Identity Male 10/02/2023 12:44 PM CDT [...] COVID: Recovered 11/29/2020 11/29/2020 03/29/2021 3:05 AM WIRE SAWYER COVID: Suspected 10/09/2021 10/09/2021 10/09/2021 9:37 AM CDT COVID: Suspected 03/06/2022 03/06/2022 03/06/2022 9:30 AM WIRE SAWYER RSV, droplet 03/06/2022 03/06/2022 03/13/2022 3:05 AM WIRE SAWYER COVID: Suspected 06/26/2022 06/26/2022 06/26/2022 5:59 PM CDT Coronavirus, droplet 06/26/2022 06/26/2022 023 3:06 AM CDT documented as of this encounter Care Teams Operations Analyst Relationship Specialty Start Date End Date Zoila Gleason MD [address] [place] [id number] PCP - General 09/29/16 Rupal Isabel MD 10 [facility] [address] [place] [address] Referring Physician Allergy and Immunology 01/11/19 Rekha Osborne MD [address] [place] [address] Medical Oncologist/Fitness Trainer Hematology 05/11/20 Mayuri Lyn, RN 4590 [facility] [address] [place], [place] [id number] SHOP Outpatient House Worker 12/04/20 01/04/21 Michelle Colin, ANIMAL LABORATORY HELPER 4590 [facility] ([facility]) Mailstop [phone] [place] [address] SHOP Outpatient House Worker 10/19/21 11/16/21 documented as of this encounter
--- OUTSIDE RECORDS SUMMARY | 2024-05-13 17:11 | XMS_ITS | Encounter Summary ---
Author Organization [facility] [employer] [facility] Address [address] [place] [address] Phone Care Team Providers Care Bicycle Inspector Name Role Phone Zoila Gleason MD Primary Care Provider Rupal Isabel MD Unavailable [phone] Rekha Osborne MD Unavailable [phone] Mayuri Lyn RN Unavailable [phone] Michelle Colin PARTITION ASSEMBLY MACHINE OPERATOR Unavailable [phone] Encounter Details Date Type Department Care Team [...] on file Legal Sex Male 1:53 AM MANAGER SECURITY AND SAFETY Gender Identity Male 10/02/2023 12:44 PM CDT [...] COVID: Suspected 04/21/2020 04/21/2020 04/21/2020 11:24 AM MANAGER SECURITY AND SAFETY Respiratory Infection (MICKEY), contact + droplet Comment:Automatically added due to negative COVID-19 result. 04/21/2020 04/21/2020 05/05/2020 3:0 6 AM MANAGER SECURITY AND SAFETY COVID: Suspected 04/21/2020 04/21/2020 04/21/2020 6:48 PM MANAGER SECURITY AND SAFETY COVID: Suspected 09/25/2020 09/25/2020 09/25/2020 10:11 AM CDT Rhino/Enterovirus 09/25/2020 09/25/2020 10/02/2020 3:05 AM CDT COVID: Recovered 11/29/2020 11/29/2020 03/29/2021 3:05 AM MANAGER SECURITY AND SAFETY COVID: Suspected 10/09/2021 10/09/2021 10/09/2021 9:37 AM CDT COVID: Suspected 03/06/2022 03/06/2022 03/06/2022 9:30 AM MANAGER SECURITY AND SAFETY RSV, droplet 03/06/2022 03/06/2022 03/13/2022 3:05 AM MANAGER SECURITY AND SAFETY COVID: Suspected 06/26/2022 06/26/2022 06/26/2022 5:59 PM CDT Coronavirus, droplet 06/26/2022 06/26/2022 023 3:06 AM CDT documented as of this encounter Care Teams Bicycle Inspector Relationship Specialty Start Date End Date Zoila Gleason MD [address] [place] [address] PCP - General 09/29/16 Rupal Isabel MD [address] [place] [address] [address] [place] [address] Referring Physician Allergy and Immunology 01/11/19 Rekha Osborne MD [address] [place] [address] Medical Oncologist/Freezer Worker Hematology 05/11/20 Mayuri Lyn, RN 4590 [facility] [address] [place] [address] LAST Outpatient Technical Sales Engineer 12/04/20 01/04/21 Michelle Colin LCSW 4590 [facility] ([facility]) Mailstop [phone] [place] [address] SHOP Outpatient Technical Sales Engineer 10/19/21 11/16/21 documented as of this encounter
--- OUTSIDE RECORDS SUMMARY | 2024-05-13 17:11 | XMS_ITS | Encounter Summary ---
Author Organization [facility] Address [address] [place] [address] Phone Care Team Providers Care Fire Official Name Role Phone Zoila Gleason MD Primary Care Provider Rupal Isabel MD Unavailable [phone] Rekha Osborne MD Unavailable [phone] Mayuri Lyn RN Unavailable [phone] Michelle Colin RADIATION ONCOLOGY NURSE Unavailable [phone] Encounter Details Date Type Department Care Team [...] on file Legal Sex Male 1:53 AM IRONING PLEATER Gender Identity Male 10/02/2023 12:44 PM CDT [...] COVID: Recovered 11/29/2020 11/29/2020 03/29/2021 3:05 AM IRONING PLEATER COVID: Suspected 10/09/2021 10/09/2021 10/09/2021 9:37 AM CDT COVID: Suspected 03/06/2022 03/06/2022 03/06/2022 9:30 AM IRONING PLEATER RSV, droplet 03/06/2022 03/06/2022 03/13/2022 3:05 AM IRONING PLEATER COVID: Suspected 06/26/2022 06/26/2022 06/26/2022 5:59 PM CDT Coronavirus, droplet 06/26/2022 06/26/2022 023 3:06 AM CDT documented as of this encounter Care Teams Fire Official Relationship Specialty Start Date End Date Zoila Gleason MD [address] [place] [phone] PCP - General 09/29/16 Rupal Isabel MD 10 [facility] [address] [place] [address] Referring Physician Allergy and Immunology 01/11/19 Rekha Osborne MD [address] [place] [address] Medical Oncologist/Chief Orthoptist Hematology 05/11/20 Mayuri Lyn, RN 4590 [facility] [address] [place], [place] [id number] SHOP Outpatient Corner Block Cutter 12/04/20 01/04/21 Michelle Colin, RADIATION ONCOLOGY NURSE 4590 [facility] ([facility] [place]) Mailstop [phone] [place] [address] SHOP Outpatient Corner Block Cutter 10/19/21 11/16/21 documented as of this encounter
--- OUTSIDE RECORDS SUMMARY | 2024-05-13 17:11 | XMS_ITS | Encounter Summary ---
Author Organization [facility] Address [address] [place] [address] Phone Care Team Providers Care Volunteer Services Supervisor Name Role Phone Zoila Gleason MD Primary Care Provider Rupal Isabel MD Unavailable [phone] Rekha Osborne MD Unavailable [phone] Mayuri Lyn RN Unavailable [phone] Michelle Colin DIRECTOR VACCINE Unavailable [phone] Encounter Details Date Type Department Care Team [...] on file Legal Sex Male 1:53 AM SCRIPT EDITOR Gender Identity Male 10/02/2023 12:44 PM [...] COVID: Recovered 11/29/2020 11/29/2020 03/29/2021 3:05 AM SCRIPT EDITOR COVID: Suspected 10/09/2021 10/09/2021 10/09/2021 9:37 AM CDT COVID: Suspected 03/06/2022 03/06/2022 03/06/2022 9:30 AM SCRIPT EDITOR RSV, droplet 03/06/2022 03/06/2022 03/13/2022 3:05 AM SCRIPT EDITOR COVID: Suspected 06/26/2022 06/26/2022 06/26/2022 5:59 PM CDT Coronavirus, droplet 06/26/2022 06/26/2022 023 3:06 AM CDT documented as of this encounter Care Teams Volunteer Services Supervisor Relationship Specialty Start Date End Date Zoila Gleason MD [address] [place] [id number] PCP - General 09/29/16 Rupal Isabel MD 10 [facility] [address] [place] [address] Referring Physician Allergy and Immunology 01/11/19 Rekha Osborne MD [address] [place] [address] Medical Oncologist/Staff Toxicologist Hematology 05/11/20 Mayuri Lyn, RN 4590 [facility] [address] [place], [place] [address] SHOP Outpatient Metal Machinist 12/04/20 01/04/21 Michelle Colin, DIRECTOR VACCINE 4590 [facility] [place] Mailstop [phone] [place] [address] SHOP Outpatient Metal Machinist 10/19/21 11/16/21 documented as of this encounter
--- OUTSIDE RECORDS SUMMARY | 2024-05-13 17:11 | XMS_ITS | Encounter Summary ---
Author Organization [facility] [employer] [facility] Address [address] [place] [address] Phone Care Team Providers Care Bow Repairer Custom Name Role Phone Zoila Gleason MD Primary Care Provider [phone] Rupal Isabel MD Unavailable [phone] Rekha Osborne MD Unavailable [phone] Mayuri Lyn RN Unavailable [phone] Michelle ColinW Unavailable [phone] Encounter Details Date Type Department Care Team [...] on file Legal Sex Male 1:53 AM RN ER Gender Identity Male 10/02/2023 12:44 PM CDT [...] COVID: Suspected 04/21/2020 04/21/2020 04/21/2020 11:24 AM RN ER Respiratory Infection (MICKEY), contact + droplet Comment:Automatically added due to negative COVID-19 result. 04/21/2020 04/21/2020 05/05/2020 3:0 6 AM RN ER COVID: Suspected 04/21/2020 04/21/2020 04/21/2020 6:48 PM RN ER COVID: Suspected 09/25/2020 09/25/2020 09/25/2020 10:11 AM CDT Rhino/Enterovirus 09/25/2020 09/25/2020 10/02/2020 3:05 AM CDT COVID: Recovered 11/29/2020 11/29/2020 03/29/2021 3:05 AM RN ER COVID: Suspected 10/09/2021 10/09/2021 10/09/2021 9:37 AM CDT COVID: Suspected 03/06/2022 03/06/2022 03/06/2022 9:30 AM RN ER RSV, droplet 03/06/2022 03/06/2022 03/13/2022 3:05 AM RN ER COVID: Suspected 06/26/2022 06/26/2022 06/26/2022 5:59 PM CDT Coronavirus, droplet 06/26/2022 06/26/2022 023 3:06 AM CDT documented as of this encounter Care Teams Bow Repairer Custom Relationship Specialty Start Date End Date Zoila Gleason MD [address] [place] [address] PCP - General 09/29/16 Rupal Isabel MD [address] [place] [address] [address] [place] [address] Referring Physician Allergy and Immunology 01/11/19 Rekha Osborne MD [address] [place] [address] Medical Oncologist/Veterinarian Laboratory Animal Care Hematology 05/11/20 Mayuri Lyn, RN 4590 [facility] [address] [place] [address] LAST Outpatient Hoistman 12/04/20 01/04/21 Michelle Colin LCSW 4590 [facility] ([facility] Mailstop [phone] [place] [address] SHOP Outpatient Hoistman 10/19/21 11/16/21 documented as of this encounter
--- OUTSIDE RECORDS SUMMARY | 2024-05-13 17:11 | XMS_ITS | Encounter Summary ---
Author Organization [facility] Address [address] [place] [address] Phone Care Team Providers Care Special Education Resource Teacher Name Role Phone Zoila Gleason MD Primary Care Provider [phone] Rupal Isabel MD Unavailable [phone] Rekha Osborne MD Unavailable [phone] Mayuri Lyn RN Unavailable [phone] Michelle Colin HEATER HELPER Unavailable [phone] Encounter Details Date Type Department Care Team [...] on file Legal Sex Male 1:53 AM FAMILY LAW ATTORNEY Gender Identity Male 10/02/2023 12:44 PM CDT [...] COVID: Suspected 04/21/2020 04/21/2020 04/21/2020 11:24 AM FAMILY LAW ATTORNEY Respiratory Infection (MICKEY), contact + droplet Comment:Automatically added due to negative COVID-19 result. 04/21/2020 04/21/2020 05/05/2020 3:0 6 AM FAMILY LAW ATTORNEY COVID: Suspected 04/21/2020 04/21/2020 04/21/2020 6:48 PM FAMILY LAW ATTORNEY COVID: Suspected 09/25/2020 09/25/2020 09/25/2020 10:11 AM CDT Rhino/Enterovirus 09/25/2020 09/25/2020 10/02/2020 3:05 AM CDT COVID: Recovered 11/29/2020 11/29/2020 03/29/2021 3:05 AM FAMILY LAW ATTORNEY COVID: Suspected 10/09/2021 10/09/2021 10/09/2021 9:37 AM CDT COVID: Suspected 03/06/2022 03/06/2022 03/06/2022 9:30 AM FAMILY LAW ATTORNEY RSV, droplet 03/06/2022 03/06/2022 03/13/2022 3:05 AM FAMILY LAW ATTORNEY COVID: Suspected 06/26/2022 06/26/2022 06/26/2022 5:59 PM CDT Coronavirus, droplet 06/26/2022 06/26/2022 023 3:06 AM CDT documented as of this encounter Care Teams Special Education Resource Teacher Relationship Specialty Start Date End Date Zoila Gleason MD [address] [place] [address] PCP - General 09/29/16 Rupal Isabel MD [address] [place] [address] [address] [place] [address] Referring Physician Allergy and Immunology 01/11/19 Rekha Osborne MD [address] [place] [address] Medical Oncologist/Flooring Machine Feeder Hematology 05/11/20 Mayuri Lyn, RN 4590 [facility] [address] [place] [address] SHOP Outpatient Industrial Servicer 12/04/20 01/04/21 Michelle Colin [facility] 4590 [facility] ([facility]) Mailstop [phone] [place] [address] SHOP Outpatient Industrial Servicer 10/19/21 11/16/21 documented as of this encounter
--- OUTSIDE RECORDS SUMMARY | 2024-05-13 17:11 | XMS_ITS | Encounter Summary ---
Author Organization [facility] Address [address] [place] [address] Phone Care Team Providers Care Soil Technician Name Role Phone Zoila Gleason MD Primary Care Provider Rupal Isabel MD Unavailable [phone] Rekha Osborne MD Unavailable [phone] Mayuri Lyn RN Unavailable [phone] Michelle Colin ROCKET PROPELLANT PLANT SUPERVISOR Unavailable [phone] Encounter Details Date Type Department Care Team [...] on file Legal Sex Male 1:53 AM PLANT TECHNICAL SPECIALIST Gender Identity Male 10/02/2023 12:44 PM [...] COVID: Recovered 11/29/2020 11/29/2020 03/29/2021 3:05 AM PLANT TECHNICAL SPECIALIST COVID: Suspected 10/09/2021 10/09/2021 10/09/2021 9:37 AM CDT COVID: Suspected 03/06/2022 03/06/2022 03/06/2022 9:30 AM PLANT TECHNICAL SPECIALIST RSV, droplet 03/06/2022 03/06/2022 03/13/2022 3:05 AM PLANT TECHNICAL SPECIALIST COVID: Suspected 06/26/2022 06/26/2022 06/26/2022 5:59 PM CDT Coronavirus, droplet 06/26/2022 06/26/2022 023 3:06 AM CDT documented as of this encounter Care Teams Soil Technician Relationship Specialty Start Date End Date Zoila Gleason MD [address] [place] [id number] PCP - General 09/29/16 Rupal Isabel MD 10 [facility] [address] [place] [address] Referring Physician Allergy and Immunology 01/11/19 Rekha Osborne MD [address] [place] [address] Medical Oncologist/Personnel Representative Hematology 05/11/20 Mayuri Lyn, RN 4590 [facility] [address] [place], [place] [address] SHOP Outpatient Compressor Station Chief Engineer 12/04/20 01/04/21 Michelle Colin, ROCKET PROPELLANT PLANT SUPERVISOR 4590 [facility] ([facility]) Mailstop [phone] [place] [address] SHOP Outpatient Compressor Station Chief Engineer 10/19/21 11/16/21 documented as of this encounter
--- OUTSIDE RECORDS SUMMARY | 2024-05-13 17:11 | XMS_ITS | Encounter Summary ---
Author Organization [facility] Healthcare Address [address] [place] [address] Care Team Providers Care Meat Cutter Apprentice Name Role Phone Zoila Gleason MD Primary Care Provider Rupal Isabel MD Unavailable Rekha Osborne MD Unavailable Mayuri Lyn RN Unavailable Michelle Colin LCSW Unavailable Encounter Details Date Type Department Care Team (Late st Contact Info) Description 03/31/2020 Telephone [facility] [address] Wendy Storm, [place] Social History [...] on file Legal Sex Male 1:53 AM SPORT SHOE SPIKE ASSEMBLER Gender Identity Male 10/02/2023 12:44 PM CDT Sexual Orientation Don't know 11/15/2020 1: 06 PM CDT documented as of this encounter Plan of Treatment Not on file documented as of this encounter Visit Diagnoses Not on filedocumented in this encounter Additional Health Concerns Infection Onset Date Last Indicated Resolved Time COVID: Suspected 04/21/2020 04/21/2020 04/21/2020 11:24 AM SPORT SHOE SPIKE ASSEMBLER Respiratory Infection (MICKEY), contact + droplet Comment:Automatically added due to negative COVID-19 result. 04/21/2020 04/21/2020 05/05/2020 3:0 6 AM SPORT SHOE SPIKE ASSEMBLER COVID: Suspected 04/21/2020 04/21/2020 04/21/2020 6:48 PM SPORT SHOE SPIKE ASSEMBLER COVID: Suspected 09/25/2020 09/25/2020 09/25/2020 10:11 AM CDT Rhino/Enterovirus 09/25/2020 09/25/2020 10/02/2020 3:05 AM CDT COVID: Recovered 11/29/2020 11/29/2020 03/29/2021 3:05 AM SPORT SHOE SPIKE ASSEMBLER COVID: Suspected 10/09/2021 10/09/2021 10/09/2021 9:37 AM CDT COVID: Suspected 03/06/2022 03/06/2022 03/06/2022 9:30 AM SPORT SHOE SPIKE ASSEMBLER RSV, droplet 03/06/2022 03/06/2022 03/13/2022 3:05 AM SPORT SHOE SPIKE ASSEMBLER COVID: Suspected 06/26/2022 06/26/2022 06/26/2022 5:59 PM CDT Coronavirus, droplet 06/26/2022 06/26/2022 023 3:06 AM CDT documented as of this encounter Care Teams Meat Cutter Apprentice Relationship Specialty Start Date End Date Zoila Gleason MD [address] [place] [address] PCP - General 09/29/16 Rupal Isabel MD [address] [facility] [address] [place] [address] Referring Physician Allergy and Immunology 01/11/19 Rekha Osborne MD [address] [place] [address] Medical Oncologist/Electrification Adviser Hematology 05/11/20 Mayuri Lyn, RN 4590 [facility] [address] [place] [address] LAST Outpatient Vending Machine Coin Collector 12/04/20 01/04/21 Michelle Colin LCSW 4590 [facility] ([facility] Mailstop [phone] [place] [address] LAST Outpatient Vending Machine Coin Collector 10/19/21 11/16/21 documented as of this encounter
--- OUTSIDE RECORDS SUMMARY | 2024-05-13 17:11 | XMS_ITS | Encounter Summary ---
Author Organization [facility] Address [address] [place] [address] Phone Care Team Providers Care Grocery Clerk Checking Name Role Phone Zoila Gleason MD Primary Care Provider Rupal Isabel MD Unavailable [phone] Rekha Osborne MD Unavailable [phone] Mayuri Lyn RN Unavailable [phone] Michelle Colin LEGAL DOCUMENT ASSISTANT Unavailable [phone] Encounter Details Date Type Department Care Team [...] on file Legal Sex Male 1:53 AM ETCHER PHOTOENGRAVING Gender Identity Male 10/02/2023 12:44 PM CDT [...] COVID: Recovered 11/29/2020 11/29/2020 03/29/2021 3:05 AM ETCHER PHOTOENGRAVING COVID: Suspected 10/09/2021 10/09/2021 10/09/2021 9:37 AM CDT COVID: Suspected 03/06/2022 03/06/2022 03/06/2022 9:30 AM ETCHER PHOTOENGRAVING RSV, droplet 03/06/2022 03/06/2022 03/13/2022 3:0 5 AM ETCHER PHOTOENGRAVING COVID: Suspected 06/26/2022 06/26/2022 06/26/2022 5:59 PM CDT Coronavirus, droplet 06/26/2022 06/26/2022 023 3:06 AM CDT documented as of this encounter Care Teams Grocery Clerk Checking Relationship Specialty Start Date End Date Zoila Gleason MD [address] [place] [address] PCP - General 09/29/16 Rupal Isabel MD [address] [place] [address] [address] [place] [address] Referring Physician Allergy and Immunology 01/11/19 Rekha Osborne MD [address] [place] [address] Medical Oncologist/Machine Staker Hematology 05/11/20 Mayuri Lyn, RN 4590 [facility] [address] [place], [place] [address] LAST Outpatient Lap Machine Tender 12/04/20 01/04/21 Michelle Colin, ROSALIE 4590 [facility] ([facility] Mailstop [phone] [place] [address] SHOP Outpatient Lap Machine Tender 10/19/21 11/16/21 documented as of this encounter
--- OUTSIDE RECORDS SUMMARY | 2024-05-13 17:11 | XMS_ITS | Encounter Summary ---
Author Organization [facility] Address [address] [place] [address] Phone Care Team Providers Care Job Putter Up And Ticket Preparer Name Role Phone Zoila Gleason MD Primary Care Provider Rupal Isabel MD Unavailable [phone] Rekha Osborne MD Unavailable [phone] Mayuri Lyn RN Unavailable [phone] Michelle ColinW Unavailable [phone] Encounter Details Date Type Department Care Team [...] on file Legal Sex Male 1:53 AM TEA BAG MACHINE TENDER Gender Identity Male 10/02/2023 12:44 PM [...] COVID: Suspected 04/21/2020 04/21/2020 04/21/2020 11:24 AM TEA BAG MACHINE TENDER Respiratory Infection (MICKEY), contact + droplet Comment:Automatically added due to negative COVID-19 result. 04/21/2020 04/21/2020 05/05/2020 3:0 6 AM TEA BAG MACHINE TENDER COVID: Suspected 04/21/2020 04/21/2020 04/21/2020 6:48 PM TEA BAG MACHINE TENDER COVID: Suspected 09/25/2020 09/25/2020 09/25/2020 10:11 AM CDT Rhino/Enterovirus 09/25/2020 09/25/2020 10/02/2020 3:05 AM CDT COVID: Recovered 11/29/2020 11/29/2020 03/29/2021 3:05 AM TEA BAG MACHINE TENDER COVID: Suspected 10/09/2021 10/09/2021 10/09/2021 9:37 AM CDT COVID: Suspected 03/06/2022 03/06/2022 03/06/2022 9:30 AM TEA BAG MACHINE TENDER RSV, droplet 03/06/2022 03/06/2022 03/13/2022 3:05 AM TEA BAG MACHINE TENDER COVID: Suspected 06/26/2022 06/26/2022 06/26/2022 5:59 PM CDT Coronavirus, droplet 06/26/2022 06/26/2022 023 3:06 AM CDT documented as of this encounter Care Teams Job Putter Up And Ticket Preparer Relationship Specialty Start Date End Date Zoila Gleason MD [address] [place] [address] PCP - General 09/29/16 Rupal Isabel MD 10 [facility] [address] [place] [address] Referring Physician Allergy and Immunology 01/11/19 Rekha Osborne MD [address] [place] [address] Medical Oncologist/Quality Assurance Representative Hematology 05/11/20 Mayuri Lyn, RN 4590 [facility] [address] [place] [address] SHOP Outpatient Gear Milling Machine Set Up Operator 12/04/20 01/04/21 Michelle Colin LCSW 4590 [facility] ([facility] Mailstop [phone] [place] [address] SHOP Outpatient Gear Milling Machine Set Up Operator 10/19/21 11/16/21 documented as of this encounter
--- OUTSIDE RECORDS SUMMARY | 2024-05-13 17:11 | XMS_ITS | Encounter Summary ---
Author Organization [facility] Address [address] [place] [address] Phone Care Team Providers Care Aluminum Sheet Cutter Name Role Phone Zoila Gleason MD Primary Care Provider Rupal Isabel MD Unavailable [phone] Rekha Osborne MD Unavailable [phone] Mayuri Lyn RN Unavailable [phone] Michelle Colin AP PROCESSOR Unavailable [phone] Encounter Details Date Type Department Care Team [...] on file Legal Sex Male 1:53 AM PARKING METER INSTALLER Gender Identity Male 10/02/2023 12:44 PM CDT [...] COVID: Recovered 11/29/2020 11/29/2020 03/29/2021 3:05 AM PARKING METER INSTALLER COVID: Suspected 10/09/2021 10/09/2021 10/09/2021 9:37 AM CDT COVID: Suspected 03/06/2022 03/06/2022 03/06/2022 9:30 AM PARKING METER INSTALLER RSV, droplet 03/06/2022 03/06/2022 03/13/2022 3:05 AM PARKING METER INSTALLER COVID: Suspected 06/26/2022 06/26/2022 06/26/2022 5:59 PM CDT Coronavirus, droplet 06/26/2022 06/26/2022 023 3:06 AM CDT documented as of this encounter Care Teams Aluminum Sheet Cutter Relationship Specialty Start Date End Date Zoila Gleason MD [address] [place] [id number] PCP - General 09/29/16 Rupal Isabel MD 10 [facility] [address] [place] [address] Referring Physician Allergy and Immunology 01/11/19 Rekha Osborne MD [address] [place] [address] Medical Oncologist/Radiation Control Specialist Hematology 05/11/20 Mayuri Lyn, RN 4590 [facility] [address] [place], [place] [address] SHOP Outpatient Language Tutor 12/04/20 01/04/21 Michelle Colin, AP PROCESSOR 4590 [facility] ([facility]) Mailstop [phone] [place] [address] SHOP Outpatient Language Tutor 10/19/21 11/16/21 documented as of this encounter
--- OUTSIDE RECORDS SUMMARY | 2024-05-13 17:11 | XMS_ITS | Encounter Summary ---
Author Organization [facility] Address [address] [place] [address] Phone Care Team Providers Care Rn Community Name Role Phone Zoila Gleason MD Primary Care Provider [phone] Rupal Isabel MD Unavailable [phone] Rekha Osborne MD Unavailable Encounter Details Date Type Department Care Team (Late st Contact Info) Description 05/13/2024 2:40 PM ELECTROPLATER Office Visit [facility] Endocrinology Metabolism and Lipid [address] [facility] Advanced Medicine 5th [place] [address] [place] [address] Jesenia Cottrell MD [address] [facility] [address] [place] [address] Arrived Social History Tobacco Use Types Packs/Day Years [...] 10/11/2021 How often do you attend chur or congregation services? Never 10/11/2021 Do you belong to any clubs o r organizations such as religion groups, unions, fraternal or athletic groups, or [...] place to sleep or slept in a longterm (including now)? No 10/11/2021 Personal Safety Answer Date Recorded Have you ever been in or are you currently in a harmful physical or emotional relationship or is someone making you feel afraid or unsafe? Patient unable to answer 12/18/2023 Sex and Gender Information Value Date Recorded Sex Assigned at Not on file Legal Sex Male 1:53 AM ELECTROPLATER Gender Identity Male 10/02/2023 12:44 PM CDT Sexual Orientation Don't know 11/15/2020 1: 06 PM CDT documented as of this encounter Last Filed Vital Signs Vital Sign Reading Time Taken Comments Blood Pressure 117/79 05/13/2024 2:31 PM ELECTROPLATER Pulse 90 05/13/2024 2:31 PM ELECTROPLATER Temperature 36.9 C (98.5 F) 05/13/2024 2:31 PM ELECTROPLATER Respiratory Rate - - Oxygen Saturation - - Inhaled Oxygen Concentration - - Weight 60.8 kg (134 lb) 05/13/2024 2:31 PM ELECTROPLATER Height 160 cm (5' 3 ) 05/13/2024 2:31 PM ELECTROPLATER Body Mass Index 23.74 05/13/2024 2:31 PM ELECTROPLATER documented in this encounter Ordered Prescriptions Prescription Sig Dispense Quantity Refills Last Filled Start Date End Date testosterone 20.25 mg/1.25 gram (1.62 %) gel in metered-dose pump Place 20.25 mg on the skin daily 225 g 05/13/2024 11/09/2024 documented in this encounter Plan of Treatment Not on file documented as of this encounter Visit Diagnoses Not on filedocumented in this encounter Discontinued Medications Medication Sig Discontinue Reason Start Date End Da te Breztri Aerosphere 160-9-4.8 mcg/actuation inhaler Inhale 1 puff 2 (two) times a day 12/08/2023 05/13/2024 prasterone, dhea, 25 mg capsule Take 1 capsule (25 mg total) by mouth daily with breakfast Alternate therapy 05/13/2024 documented as of this encounter Historical Medications * This list may reflect changes made after this encounter. Atrovent HFA 17 mcg/actuation inhaler 03/18/2024 avatrombopag (DOPTELET) 20 mg tablet 2 tablets (40 mg total) daily Administer with food added in this encounter Care Teams Rn Community Relationship Specialty Start Date End Date Zoila Gleason MD [address] [place] [address] PCP - General 09/29/16 Rupal Isabel MD 10 [facility] [address] [place] [address] Referring Physician Allergy and Immunology 01/11/19 Rekha Osborne MD [address] [place] [address] Medical Oncologist/Canvas Baster Jumpbasting Hematology 05/11/20 documented as of this encounter
--- OUTSIDE RECORDS SUMMARY | 2024-05-13 17:11 | XMS_ITS | Clinical Summary ---
Author Organization [facility] ospital Address [address] [place] [address] Care Team Providers Care Industrial Health Engineer Name Role Phone Zoila Gleason MD Primary Care Provider [phone] Rupal Isabel MD Unavailable Rekha Osborne MD Unavailable [phone] Allergies Active Allergy Reactions Criticality Noted Date Comments Gluten Unknown 04/16/2018 Celiacs Medications multivitamin tablet,chewableI ndications:Vitam in Deficiency,Vitam in Deficiency Prevention Take 1 tablet/chew tab by mouth nightly Active folic acid (FOLVITE) 800 mcg tabletIndication s:Folate Deficiency Take 0.5 tablets (400 mcg total) by mouth every morning 0.5 tablet Active albuterol HFA (PROVENTIL HFA,VENTOLIN HFA,PROAIR HFA) 90 mcg/actuation inhalerIndicatio ns:Acute Asthma Attack Inhale 2 puffs every 4 (four) hours as needed for wheezing or shortness of breath Active syringe with needle 3 mL 23 gauge x 1 1/2 syringe 1 Syringe as needed (for solu-cortef) 5 Syringe 020 Active EPINEPHrine 0.3 mg/0.3 mL auto-injection syringeIndicatio ns:Anaphylaxis,r elated to immune globulin Inject 0.3 mL (0.3 mg total) into the muscle as instructed as needed for anaphylaxis Never used. 021 Active OptiChamber Anju [facility] spacer USE WITH INHALER DIRECTED 021 Active ergocalciferol (VITAMIN D) 50,000 unit capsuleIndicatio ns:Vitamin D Deficiency Take 1 capsule (50,000 Units total) by mouth once a week Sundays. Active IgG-hyaluronidas e,recombinant 10 gram /100 mL (10 %) solution Inject 50 g under the skin every 4 (four) weeks 500 mL 3 Active valACYclovir (VALTREX) 1 gram tabletIndication s:shingles Take 1 tablet (1,000 mg total) by mouth as needed Active albuterol 2.5 mg /3 mL (0.083 %) nebulizer solutionIndicati ons:Acute Asthma Attack Take 3 mL (2.5 mg total) by nebulization every 4 (four) hours as needed for wheezing or shortness of breath Active sertraline (ZOLOFT) 100 mg tabletIndication s:Anxiety with Depression Take 1 tablet (100 mg total) by mouth every morning 0.5 tablet Active imiquimod (ALDARA) 5 % creamIndications :skin issues Apply 1 packet topically as needed Active levothyroxine (SYNTHROID) 112 mcg tabletIndication s:hypothyroidism Take 1 tablet (112 mcg total) by mouth laborer rags before breakfast Active Solu-CORTEF Act-O-Vial, PF, 100 mg/2 mL recon soln INJECT 2 MILLILITERS (100MG) INTRAMUSCULARLY DAILY NEEDED FOR ADRENAL CRISIS Active ondansetron ODT (ZOFRAN-ODT) 4 mg disintegrating tablet DISSOLVE 1 TABLET IN MOUTH EVERY 8 HOURS NEEDED FOR NAUSEA AND VOMITING Active prednisoLONE (MILLIPRED) 5 mg tablet Take 1 tablet (5 mg total) by mouth daily Active docusate sodium (COLACE) 100 mg capsuleIndicatio ns:constipation Take 1 capsule (100 mg total) by mouth daily after dinner Active psyllium (KONSYL) powder Take 1 Application by mouth daily 1 tsp Active mirtazapine (REMERON) 15 mg tablet Active Asmanex HFA 200 mcg/actuation inhaler Inhale 2 puffs 2 (two) times a day Active dexAMETHasone (DECADRON) 4 mg tablet TAKE 10 TABLETS (40MG) BY MOUTH DAILY NEEDED FOR ITP FOR 4 DAYS Active clonazePAM (KlonoPIN) 0.5 mg tablet Active predniSONE (DELTASONE) 1 mg tablet PLEASE SEE ATTACHED FOR DETAILED DIRECTIONS Active avatrombopag (DOPTELET) 20 mg tablet 2 tablets (40 mg total) daily Administer with food Active Atrovent HFA 17 mcg/actuation inhaler Active testosterone 20.25 mg/1.25 gram (1.62 %) gel in metered-dose pump Place 20.25 mg on the skin daily 225 g 2024 Active Breztri Aerosphere 160-9-4.8 mcg/actuation inhaler Inhale 1 puff 2 (two) times a day 2024 Discontinued prasterone, dhea, 25 mg capsule Take 1 capsule (25 mg total) by mouth daily with breakfast 2024 Discontinued( Alternate therapy) Active Problems Problem Noted Date Diagnosed Date [...] stooling. -As of 12/18/23 at 1300, per [facility] [phone] - E. Coli. -Repeat blood cultures NGTD -Received cefepime; changed to cefuroxime to complete a 7 day course. Source is suspected to be UTI -TTE neg for vegetations Leukocytosis 12/17/2023 Assessment & Plan (12/17/2023 8:50 PM CDT): CBC at [facility] 12/15 WBC 20.5 (81% neutrophils). 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 Hgb now [...] fever (CMS/HCC) 09/25/2020 Idiopathic thrombocytopenic purpura (ITP) (CMS/H CC) 07/09/2020 Assessment & Plan (12/01/2020 2:02 [...] cytopenia, his initial presentation for thrombocytopenia to [facility] was in 2012 (17 yo) with petechiae [...] responded to steroid and rituximab last time ([id number]). During his last admission for UTI, he [...] history of Rios syndrome (AIHA w/ AITP), CVID, hypothyroidism, celiac disease, and Trisomy 21 who was admitted on 12/18 [...] bid - received stress dose steroids at [facility] - continue pred 5 BID - per [...] an anti-21 hydroxylase antibody to rule out Trenton's as well as a low dose ACTH stim test at some point after 72 hours from last stress dose. He is very well appearing and does not have an indication for stress dosing at this time. - send anti-21 hydroxylase antibody (red top 2 ml) 2107 to [place] - consider ACTH stim test this admission [...] obtain anti-21 hydroxylase Ab to rule out Trenton's disease. Assessment & Plan (12/29/2019 8:18 AM [...] now nearly completely healed. Is following with [facility] as an outpatient. Next appointment 01/08. Assessment & Plan (01/04/2020 8:29 PM CDT): Developed stage 4 decubitus ulcer while critically ill. Wound is now nearly completely healed. Is following with [facility] as an outpatient. Next appointment Assessment & Plan (11/11/2019 7:34 AM CDT): Patient has a coccygeal ulcer as well as pressure injuries in the b/l trochanteric areas. AURORA saw the patient on 11/07 and recommended [...] pressure injuries in the b/l trochanteric areas. UARORA saw the patient on 11/07 and recommended f/u in 1 week if still IP or in 2-3 weeks as an outpatient. - Continue Triad, Allevyn and Mepelex - bacitracin ointment to R hip. Assessment & Plan (11/09/2019 11:31 AM CDT): Patient has a coccygeal ulcer as well as pressure injuries in the b/l trochanteric areas. AURORA saw the patient on 11/07 and recommended f/u in 1 week if still IP or in 2-3 weeks as an outpatient. - Continue Triad, Allevyn and Mepelex - recommended bacitracin ointment to R hip. Assessment & Plan (11/08/2019 6:54 PM CDT): Patient has a coccygeal ulcer as well as pressure injuries in the b/l trochanteric areas. AURORA saw the patient on 11/07 and recommended f/u in 1 week if still IP or in 2-3 weeks as an outpatient. - Continue Triad, Allevyn and Mepelex - recommended bacitracin ointment to R hip. Assessment & Plan (11/07/2019 8:40 PM CDT): Patient has a coccygeal ulcer as well as pressure injuries in the b/l trochanteric areas. - Continue Triad, Allevyn and Mepelex - AURORA is following, will see patient on 11/07. 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 His WBC count increased today to [...] and platelets (105) are all increased from 8/5. Per immunology, will need to continue having [...] AM CDT): Stable. Followed by endocrinology at [facility]. Currently on 150 mcg levothyroxine daily. - [...] Assessment & Plan (10/27/2019 12:55 PM CDT): Jordi is a 24 y.o. 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 Separate dosing by at least 4 hours. Pediatric Endocrinology will continue to follow. 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 This morning antiXa level [...] Encounters Date Type Department Care Team Description 05/13/2024 2:40 PM CAUSTICS LOADER Office Visit [facility] Endocrinology Metabolism and Lipid [address] [facility] 5th [place] [address] [place] [address] Jesenia Cottrell MD Arrived 04/25/2024 11:30 AM CAUSTICS LOADER Lab [facility] at [address] [address] AIHA (autoimmune hemolytic anemia) (HCC); Chronic ITP (idiopathic thrombocytopenia) (HCC) 04/25/2024 9:00 AM CAUSTICS LOADER Office Visit [facility] Hematology [address] [facility] Medical Office [address] [place] [address] Rekha Osborne MD AIHA (autoimmune hemolytic anemia) (HCC) (Primary Dx); Chronic ITP (idiopathic thrombocytopenia) (HCC); CVID (common variable immunodeficiency) (HCC); High risk medication use 04/25/2024 8:30 AM CAUSTICS LOADER Lab [facility] Oncology [address] [facility] [address] [place] [address] 04/11/2024 Orders Only [facility] Hematology [address] [facility] Floor 6 [place] [address] Saniya Alberts, RN 04/09/2024 Telephone [facility] Bone Health [address] [place] [address] [facility] 5th [place] [address] [place] [address] Kobi Og MD 04/01/2024 Telephone [facility] Hematology [address] [facility] Floor 6 [place] [address] Saniya Alberts, RN 03/19/2024 Telephone [facility] Bone Health [address] [place] [address] Medical Office Building 2 [address] [place] [address] Kobi Og MD 03/12/2024 6:15 PM CAUSTICS LOADER Lab [facility] ([facility]) [address] [place] [address] Osteoporosis without current pathological fracture, unspecified osteoporosis type 03/12/2024 3:40 PM CAUSTICS LOADER - 03/12/2024 11:59 PM CAUSTICS LOADER Hospital Encounter [facility] ([facility]) [address] [place] [address] Osteoporosis without current pathological fracture, unspecified osteoporosis type Discharge Disposition: Discharge to home or self care 03/12/2024 2:34 PM CAUSTICS LOADER - 03/12/2024 11:59 PM CAUSTICS LOADER Hospital Encounter [facility] Radiology [facility] ([facility]) [address] [place] [address] Mild persistent asthma without complication Discharge Disposition: Discharge to home or self care 03/12/2024 2:30 PM CAUSTICS LOADER Office Visit [facility] Pulmonary [address] [place] [address] 8th [place] [address] [place] [address] Jam Sands MD Mild persistent asthma without complication (Primary Dx); Lymphocytic interstitial pneumonia (CMS/HCC) (HCC) 03/05/2024 9:20 AM CAUSTICS LOADER Office Visit [facility] Bone Health [facility] 5th [place] [address] [place] [address] Kobi Og MD Osteoporosis without current pathological fracture, unspecified osteoporosis type (Primary Dx); Arpita's syndrome (CMS/HCC) (HCC); Adrenal insufficiency (HCC); Hypogonadism in male 02/21/2024 Telephone [facility] Allergy and Immunology [address] [place] [address] [place] [address] Elodia Johns RN 02/15/2024 3:05 PM CAUSTICS LOADER Lab [facility] at the [address] [address] CVID (common variable immunodeficiency) (HCC) 02/15/2024 2:00 PM CAUSTICS LOADER Office Visit [facility] Allergy and Immunology [address] [place] [address] [place] [phone] Rupal Isabel MD CVID (common variable immunodeficiency) ([facility]) (Primary Dx); Arpita's syndrome (CMS/HCC) (HCC) from Last 3 Months Immunizations Name Administration [...] Influenza, Trivalent, Preser vative Free, Intramuscular 03/09/2016 [employer] ([employer]) SARS-CoV-2 Vaccination 06/08/2020 MMR 10/01/2002,01/20/1999 Meningococcal [...] Decubitus skin ulcer Acute hypoxemic respiratory failure ([facility]) 10/10/2019 Ventilator associated pneumo phi (CMS/HCC) ([facility]) 10/16/2019 Acute non-cardiogenic pulmon chuy edema ([facility]) ([facility]) 10/24/2019 Pneumonia due to infectious organism 04/22/2020 Arterial thrombosis ([facility]) ([facility]) 10/23/2019 Hypotension 04/22/2020 Acute kidney injury ([facility]) 10/10/2019 Acute cystitis due to enterobacter 01/04/2020 Down syndrome Personal history of COVID-19 10/2019 Clotting disorder ([facility]) ([facility]) Heart disease s/p GA secondary to severe anemia GI (gastrointestinal bleed) Acute respiratory failure wi th hypoxia ([facility]) ([facility]) 08/20/2022 Family History Medical History Relation Name Comments Cancer Father Aidan Ch Aylin Hyperlipidemia Father Aidan Mastjanak Hypertension Father Aidan Ch Aylin Thyroid disease Mother Early Paternal Grandfather Pal Aylin Heart attack Paternal Grandfather Pal [place] Osteoporosis Paternal Grandfather Pal Aylin Anesthesia problems Neg Hx Broken bones Neg Hx Hip fracture Neg Hx Kyphosis Neg Hx Scoliosis Neg Hx Relation Name Status Comments Father Aidan Ch Fernylynne Mother Paternal Grandfather Pal Aylin Social History Tobacco Use Types Packs/Day Years [...] often do you attend chur ch or episcopal services? Never 10/11/2021 Do you belong to any clubs o r organizations such as scientology groups, unions, fraternal or athletic groups, or [...] place to sleep or slept in a group home (including now)? No 10/11/2021 Personal Safety Answer Date Recorded Have you ever been in or are you currently in a harmful physical or emotional relationship or is someone making you feel afraid or unsafe? Patient unable to answer 12/18/2023 Sex and Gender Information Value Date Recorded Sex Assigned at Not on file Legal Sex Male 1:53 AM CAUSTICS LOADER Gender Identity Male 10/02/2023 12:44 PM CDT Sexual Orientation Don't know 11/15/2020 1: 06 PM CDT Obstetrics History Last Filed Vital Signs Vital Sign Reading Time Taken Comments Blood Pressure 117/79 05/13/2024 2:31 PM CAUSTICS LOADER Pulse 90 05/13/2024 2:31 PM CAUSTICS LOADER Temperature 36.9 C (98.5 F) 05/13/2024 2:31 PM CAUSTICS LOADER Respiratory Rate 18 03/12/2024 2:48 PM CAUSTICS LOADER Oxygen Saturation 96% 03/12/2024 2:48 PM CAUSTICS LOADER Inhaled Oxygen Concentration - - Weight 60.8 kg (134 lb) 05/13/2024 2:31 PM CAUSTICS LOADER Height 160 cm (5' 3 ) 05/13/2024 2:31 PM CAUSTICS LOADER Body Mass Index 23.74 05/13/2024 2:31 PM CAUSTICS LOADER Plan of Treatment Health Maintenance Due Date [...] , 02/03/2022, 01/27/2021, Additional history exists Hepatitis B Screening Completed 01/12/1999 , 03/17/1998, 1997 Hepatitis C Screening Completed 11/28/2020 Procedures Procedure Name Priority Date/Time Associated Diagnosis Comments EGFR Routine 04/25/2024 10:00 AM CAUSTICS LOADER AIHA (autoimmune hemolytic anemia) (HCC) Chronic ITP (idiopathic thrombocytopenia) (HCC) DIFFERENTIAL AUTO Routine 04/25/2024 10: 00 AM CAUSTICS LOADER AIHA (autoimmune hemolytic anemia) (HCC) Chronic ITP (idiopathic thrombocytopenia) (HCC) CBC WITH AUTO DIFFERENTIAL Routine 04/25/2024 10:00 AM CAUSTICS LOADER AIHA (autoimmune hemolytic anemia) (HCC) Chronic ITP (idiopathic thrombocytopenia) (HCC) COMPREHENSIVE METABOLIC PANEL Routine 04/25/2024 10:00 AM CAUSTICS LOADER AIHA (autoimmune hemolytic anemia) (HCC) Chronic ITP (idiopathic thrombocytopenia) (HCC) RETICULOCYTES Routine 04/25/2024 10:00 AM CAUSTICS LOADER AIHA (autoimmune hemolytic anemia) (HCC) Chronic ITP (idiopathic thrombocytopenia) (HCC) HAPTOGLOBIN Routine 04/25/2024 10:00 AM CAUSTICS LOADER AIHA (autoimmune hemolytic anemia) (HCC) Chronic ITP (idiopathic thrombocytopenia) (HCC) LACTATE DEHYDROGENASE Routine 04/25/2024 10:00 AM CAUSTICS LOADER AIHA (autoimmune hemolytic anemia) (HCC) Chronic ITP (idiopathic thrombocytopenia) (HCC) DIRECT ANTIGLOBULIN TEST Routine 04/25/2024 10:00 AM CAUSTICS LOADER AIHA (autoimmune hemolytic anemia) (HCC) Chronic ITP (idiopathic thrombocytopenia) (HCC) XR SCOLIOSIS AP LAT Schedule Routine, Read Routine (OP Routine) 03/12/2024 4:00 PM CAUSTICS LOADER Osteoporosis without current pathological fracture, unspecified osteoporosis type EGFR Routine 03/12/2024 3:34 PM CAUSTICS LOADER Osteoporosis without current pathological fracture, unspecified osteoporosis type BETA-CROSSLAPS (BETA-CTX) Routine 03/12/2024 3:34 PM CAUSTICS LOADER Osteoporosis without current pathological fracture, unspecified osteoporosis type COMPREHENSIVE METABOLIC PANEL Routine 03/12/2024 3:34 PM CAUSTICS LOADER Osteoporosis without current pathological fracture, unspecified osteoporosis type PTH Routine 03/12/2024 3:34 PM CAUSTICS LOADER Osteoporosis without current pathological fracture, unspecified osteoporosis type PHOSPHORUS Routine 03/12/2024 3:34 PM CAUSTICS LOADER Osteoporosis without current pathological fracture, unspecified osteoporosis type OSTEOCALCIN Routine 03/12/2024 3:34 PM CAUSTICS LOADER Osteoporosis without current pathological fracture, unspecified osteoporosis type ALKALINE PHOSPHATASE, BONE SPECIFIC Routine 03/12/2024 3:34 PM CAUSTICS LOADER Osteoporosis without current pathological fracture, unspecified osteoporosis type GAMMA GT Routine 03/12/2024 3:34 PM CAUSTICS LOADER Osteoporosis without current pathological fracture, unspecified osteoporosis type XR CHEST PA LATERAL 2 VIEWS Schedule Routine, Read Routine (OP Routine) 03/12/2024 2:41 PM CAUSTICS LOADER Mild persistent asthma without complication IGG Routine 02/15/2024 3:10 PM CAUSTICS LOADER CVID (common variable immunodeficiency) (HCC) HEPATITIS PANEL, ACUTE Routine 11/28/2020 5:33 PM CDT from Last 3 Months or Most Recently Relevant to Health Maintenance Results * eGFR (04/25/2024 10:00 AM CAUSTICS LOADER) eGFR >90 >=60 mL/min/1. 73 m2 Comment: Interpretive Data Reference Interval Normal >/= 90 mL/min/1.73m2 Mildly decreased* 60 - 89 mL/min/1.73m2 Mildly to moderately decreased 45 - 59 mL/min/1.73m2 Moderately to severely decreased 30 - 44 mL/min/1.73m2 Severely decreased 15 - 29 mL/min/1.73m2 Kidney Failure < 15 mL/min/1.73m2 *Relative to young adult level Estimated glomerular [...] was last reviewed 2021. Testing performed by: [facility], [address] [place] [address] Blood 04/25/2024 10:0 0 AM CAUSTICS LOADER 04/25/2024 10:16 AM CAUSTICS LOADER us Rekha Osborne MD LAB BLOOD ORDERABLES Final Result [facility] [address] Department [place] [address] * (ABNORMAL) Differential, auto (04/25/2024 10:00 AM CAUSTICS LOADER) Neutrophil abs 8.6(H) 1.5 - 6.5 K/cumm Comment:Testing performed by : [facility], [facility], [address] [place] [address] Imm gran abs 0.5(H) 0.0 - 0.1 K/cumm [facility] Comment:Testing performed by : [facility], [facility], [address] [place] [address] Lymphocyte abs 2.3 0.8 - 3.3 K/cumm [facility] Comment:Testing performed by : [facility], [facility], [address] [place] [address] Monocyte abs 1.4(H) 0.2 - 0.8 K/cumm [facility] Comment:Testing performed by : [facility], [facility], [address] [place] [address] Eosinophil abs 0.1 0.0 - 0.5 K/cumm [facility] Comment:Testing performed by : [facility], [facility], [address] [place] [address] Basophil abs 0.2(H) 0.0 - 0.1 K/cumm [facility] Comment:Testing performed by : [facility], [facility], [address] [place] [address] Neutrophil pct 65.5 % [facility] Comment: Interpretive Data Percent cell count reference ranges are not reported, since discordance with absolute values may lead to misinterpretation of CBC data. Current Interpretive Data was last revised on 2017. Testing performed by: [facility], [facility], [address] [place] [address] Imm gran pct 4.0 % [facility] Comment: Interpretive Data Percent cell count reference ranges are not reported, since discordance with absolute values may lead to misinterpretation of CBC data. Current Interpretive Data was last revised on 2017. Testing performed by: [facility], [facility], [address] [place] [address] Lymphocyte pct 17.2 % [facility] Comment: Interpretive Data Percent cell count reference ranges are not reported, since discordance with absolute values may lead to misinterpretation of CBC data. Current Interpretive Data was last revised on 2017. Testing performed by: [facility], [address] [place] [address] Monocyte pct 10.9 % [facility] Comment: Interpretive Data Percent cell count reference ranges are not reported, since discordance with absolute values may lead to misinterpretation of CBC data. Current Interpretive Data was last revised on 2017. Testing performed by: [facility], [facility], [address] [place] [address] Eosinophil pct 0.7 % [facility] Comment: Interpretive Data Percent cell count reference ranges are not reported, since discordance with absolute values may lead to misinterpretation of CBC data. Current Interpretive Data was last revised on 2017. Testing performed by: [facility], [address] [place] [address] Basophil pct 1.7 % [facility] Comment: Interpretive Data Percent cell count reference ranges are not reported, since discordance with absolute values may lead to misinterpretation of CBC data. Current Interpretive Data was last revised on 2017. Testing performed by: [facility] 2, [address] [place] [address] Blood 04/25/2024 10:0 0 AM CAUSTICS LOADER 04/25/2024 10:05 AM CAUSTICS LOADER us Rekha Osborne MD LAB BLOOD ORDERABLES Final Result [facility] [address] [facility]. Department [place] [address] * (ABNORMAL) CBC with auto differential (04/25/2024 10:00 AM CAUSTICS LOADER) WBC 13.1(H) 3.8 - 9.9 K/cumm Comment:Testing performed by : [facility] 2, [address] [place] [address] Hgb 15.1 13.0 - 17.5 g/dL [facility] Comment:Testing performed by : [address] [place] [address] Hct 45.6 38.9 - 50.3 % [facility] Comment:Testing performed by : [place] [address], [address] [place] [address] Plt 201 150 - 400 K/cumm [facility] Comment:Testing performed by : [address] [place] [address] MPV 12.4(H) 9.1 - 12.3 fL [facility] Comment:Testing performed by : [place] [address], [address] [place] [address] RBC 4.78 4.30 - 5.80 M/cumm [facility] Comment:Testing performed by : [place] [address], [address] [place] [address] MCV 95 81 - 96 fL [facility] Comment:Testing performed by : [place] [address], [address] [place] [address] MCH 31.6 27.1 - 33.3 pg PAULA MERAZCH Comment:Testing performed by : [place] [address], [address] [place] [address] MCHC 33.1 32.3 - 35.7 g/dL [facility] Comment:Testing performed by : [place] [address], [address] [place] [address] RDW CV 16.8(H) 11.1 - 14.9 % [facility] Comment:Testing performed by : [place] [address], [address] [place] [address] RDW SD 58.8(H) 35.7 - 48.1 fL [facility] Comment:Testing performed by : [address] [place] [address] NRBC abs 0.03(H) 0.00 - 0.01 K/cumm [facility] Comment:Testing performed by : [place] [address] [place] [address] Blood 04/25/2024 10:0 0 AM CAUSTICS LOADER 04/25/2024 10:05 AM CAUSTICS LOADER us Rekha Osborne MD LAB BLOOD ORDERABLES Final Result PAULA BJWCH [address] [facility] Department [place] [address] * (ABNORMAL) Reticulocyte Count (04/25/2024 10:00 AM CAUSTICS LOADER) Retics, absolute 0.104(H) 0.020 - 0.087 M/cumm Comment:Testing performed by : [facility], [facility], [address] [place] [address] Retics 2.2 0.4 - 2.9 % PAULA CAMPOS Comment:Testing performed by : [facility], [facility], [address] [place] [address] Reticulocyte Hgb 32.9 30.5 - 38.0 pg PAULA CAMPOS Comment:Testing performed by : [facility], [facility], [address] [place] [address] Blood 04/25/2024 10:0 0 AM CAUSTICS LOADER 04/25/2024 10:05 AM CAUSTICS LOADER Rekha Osborne MD LAB BLOOD ORDERABLES Final Result Performing Organization Address [facility]/ZIP Co de Phone Number PAULA [facility] [address] Department [address] [place] [address] * Direct antiglobulin test (04/25/2024 10:00 AM CAUSTICS LOADER) [facility] HUMZA Poly Interp Negative Comment:Testing performed by : [facility], [address] [place] [address] Blood 04/25/2024 10:0 0 AM CAUSTICS LOADER 04/25/2024 10:16 AM CAUSTICS LOADER Rekha Osborne MD LAB BLOOD BANK TEST ORDERAB LES Final Result Performing Organization Address City/[facility]/ZIP Co de Phone Number [facility] [address] [facility] [address] [place] [address] * Lactate dehydrogenase (LD) (04/25/2024 10:00 AM CAUSTICS LOADER) [facility] Lactate dehydrogenase (LDH) 139 100 - 250 Units/L Comment:Testing performed by : [facility], [address] [place] [address] Blood 04/25/2024 10:0 0 AM CAUSTICS LOADER 04/25/2024 10:16 AM CAUSTICS LOADER Rekha Osborne MD LAB BLOOD ORDERABLES Edited Result - Final Performing Organization Address [facility] Co de Phone Number PAULA MERAZCH [address] [place] [address] * (ABNORMAL) Haptoglobin (04/25/2024 10:00 AM CAUSTICS LOADER) Haptoglobin 221(H) 30 - 200 mg/dL Comment:Testing performed by : [facility], [address] [place] [address]., [address] Blood 04/25/2024 10:0 0 AM CAUSTICS LOADER 04/25/2024 1:35 PM CAUSTICS LOADER Rekha Osborne MD LAB BLOOD ORDERABLES Final Result Performing Organization Address [facility] de Phone Number PAULA BJWCH [address] Department [place] [address] * Comprehensive metabolic panel (04/25/2024 10:00 AM CAUSTICS LOADER) Sodium 139 135 - 145 mmol/L Comment:Testing performed by : [facility], [address], [place] [address] Potassium, pl 4.1 3.3 - 4.9 mmol/L CERNER BJWCH Comment:Testing performed by : [facility], [address], [place] [address] Chloride 103 97 - 110 mmol/L CERNER BJWCH Comment:Testing performed by : [facility], [address], [place] [address] CO2 26 22 - 32 mmol/L CERNER BJWCH Comment:Testing performed by : [facility], [address], [place] [address] Anion gap 10 2 - 15 mmol/L CERNER BJWCH Comment:Testing performed by : [facility], [address], [place] [address] BUN 15 6 - 25 mg/dL CERNER BJWCH Comment:Testing performed by : [facility], [address], [place] [address] Creatinine 0.80 0.80 - 1.30 mg/dL CERNER BJWCH Comment:Testing performed by : [facility], [address], [place] [address] Glucose 98 70 - 199 mg/dL CERNER BJWCH Comment: Interpretive Data Fasting glucose >/= 126 mg/dl is diagnostic for diabetes. Fasting is defined as no caloric intake [...] was last revised 2022. Testing performed by: [facility], [address], [place] [address] Calcium 9.3 8.5 - 10.3 mg/dL CERNER BJWCH Comment:Testing performed by : [facility], [address], [place] [address] Bilirubin, total 0.2 0.1 - 1.2 mg/dL CERNER BJWCH Comment:Testing performed by : [facility], [address], [place] [address] Protein, pl 6.8 6.5 - 8.5 g/dL CERNER BJWCH Comment:Testing performed by : [facility], [address], [place] [address] Albumin 3.7 3.5 - 5.0 g/dL CERNER BJWCH Comment:Testing performed by : [facility], [address], [place] [address] Alk phos 122 40 - 130 Units/L CERNER BJWCH Comment:Testing performed by : [facility], [address] [place] [address] ALT 29 7 - 55 Units/L PAULA CAMPOS Comment:Testing performed by : [facility], [address] [place] [address] AST 23 10 - 50 Units/L PAULA CAMPOS Comment:Testing performed by : [facility], [address] [place] [address] Blood 04/25/2024 10:0 0 AM CAUSTICS LOADER 04/25/2024 10:16 AM CAUSTICS LOADER us Rekha Osborne MD LAB BLOOD ORDERABLES Edited Result - Final PAULA CARIASCH [address] Department [place] [address] * XR Scoliosis 2 or 3 Views (03/12/2024 4:00 PM CAUSTICS LOADER) Anatomical Region Laterality Modality Spine N/A Computed Radiogr aphy 03/12/2024 4:28 PM CAUSTICS LOADER Impressions 03/12/2024 4:28 PM CAUSTICS LOADER No compression deformities of the spine. Electronically signed by: Inderjit Valle D.O. Narrative 03/12/2024 4:28 PM CAUSTICS LOADER EXAMINATION: XR SCOLIOSIS AP AND LATERAL HISTORY: osteoporosis COMPARISON: Prior studies, including CT 03/06/2022 FINDINGS: No significant scoliotic curvature. Mild anterior sagittal imbalance, neutral coronal balance. No pelvic obliquity. Normal vertebral body heights. Apparent degenerative disc changes at L1-L2 may be related to overlying bowel gas. Multiple sternotomy wires, several which are fractured. Procedure Note Inderjit Valle DO - 03/12/2024 EXAMINATION: XR SCOLIOSIS AP [...] by: Inderjit Valle D.O. Rick Fabian MD IMG XR PROCEDURES Final Result * eGFR (03/12/2024 3:34 PM CAUSTICS LOADER) eGFR >90 >=60 mL/min/1. 73 m2 Comment: Interpretive Data Reference Interval Normal >/= 90 mL/min/1.73m2 Mildly decreased* 60 - 89 mL/min/1.73m2 Mildly to moderately decreased 45 - 59 mL/min/1.73m2 Moderately to severely decreased 30 - 44 mL/min/1.73m2 Severely decreased 15 - 29 mL/min/1.73m2 Kidney Failure < 15 mL/min/1.73m2 *Relative to young adult level Estimated glomerular [...] last reviewed 2021. Blood 03/12/2024 3:34 PM CAUSTICS LOADER 03/12/2024 4:13 PM CAUSTICS LOADER Rick Fabian MD LAB BLOOD ORDERABLES Final Resul t [facility] Department [place] [address] * Beta-CrossLaps (Beta-CTx) (03/12/2024 3:34 PM CAUSTICS LOADER) Beta-CTx 455 pg/mL Comment: Interpretive Data Female: Premenopausal: 136 - 689 pg/mL Postmenopausal: 177 - 1015 pg/mL Male: 30 - 50 years: 131 - 670 pg/mL 51 - 70 years: 171 - 1060 pg/mL > 70 years: 152 - 858 pg/mL Current interpretive data was last revised on 2023. Blood 03/12/2024 3:34 PM CAUSTICS LOADER 03/12/2024 4:10 PM CAUSTICS LOADER Rick Fabian MD LAB BLOOD ORDERABLES Final Resul t Performing Organization Address [facility] de Phone Number [facility] [place] [address] * Alkaline phosphatase, bone specific (03/12/2024 3:34 PM CAUSTICS LOADER) [facility] Alk phos, bone 13 0 - 20 mcg/L [place] [facility] Comment: ADDITIONAL INFORMATION Liver-derived alkaline phosphatase (ALP) increases apparent measured bone alkaline phosphatase (BAP) in this assay by 2.5 mcg/L to 5.8 mcg/L for every 100 U/L of liver ALP. Accordingly, serum specimens with significant elevations of liver ALP activity may yield artificially elevated results in the BAP assay. Test Performed by: [place] [address] Addiction Specialist: Imelda Perez Ph.D.; CLIA# [id number] Blood 03/12/2024 3:34 PM CAUSTICS LOADER 03/12/2024 5:05 PM CAUSTICS LOADER Rick Fabian MD LAB BLOOD ORDERABLES Final Resul t Performing Organization Address [facility] de Phone Number [facility] [address] [place] [address] [place] [facility] * Osteocalcin (03/12/2024 3:34 PM CAUSTICS LOADER) [facility] Osteocalcin See Comment Comment: Credited; Hemolyzed Specimen Interpretive Data Female: Premenopausal: 7.6 - 35.1 ng/mL Postmenopausal: 7.3 - 38.5 ng/mL Male: 30 - 50 years: 8.4 - 36.7 ng/mL > 50 years: 9.9 - 35.6 ng/mL Current interpretive data was last revised on 2021. Blood 03/12/2024 3:34 PM CAUSTICS LOADER 03/12/2024 4:10 PM CAUSTICS LOADER us Rick Fabian MD LAB BLOOD ORDERABLES Final Resul t Performing Organization Address [facility] de Phone Number [facility] [place] [address] * Phosphorus (03/12/2024 3:34 PM CAUSTICS LOADER) Phosphorus, pl 4.1 2.3 - 4.5 mg/dL Blood 03/12/2024 3:34 PM CAUSTICS LOADER 03/12/2024 4:10 PM CAUSTICS LOADER us Rick Fabian MD LAB BLOOD ORDERABLES Final Resul t Performing Organization Address [facility] de Phone Number [facility] Department [place] [address] * PTH (03/12/2024 3:34 PM CAUSTICS LOADER) PTH 29 15 - 65 pg/mL Blood 03/12/2024 3:34 PM CAUSTICS LOADER 03/12/2024 4:10 PM CAUSTICS LOADER us Rick Fabian MD LAB BLOOD ORDERABLES Final Resul t Performing Organization Address [facility] de Phone Number [facility] Department [place] [address] * Gamma GT (03/12/2024 3:34 PM CAUSTICS LOADER) GGT 44 10 - 50 Units/L Blood 03/12/2024 3:34 PM CAUSTICS LOADER 03/12/2024 4:10 PM CAUSTICS LOADER us Rick Fabian MD LAB BLOOD ORDERABLES Final Resul t Performing Organization Address [facility]/ZIP Co de Phone Number PAULA [facility] Department [place] [address] * (ABNORMAL) Comprehensive metabolic panel (03/12/2024 3:34 PM CAUSTICS LOADER) Sodium 138 135 - 145 mmol/L Potassium, pl 4.5 3.3 - 4.9 mmol/L [facility] Chloride 103 97 - 110 mmol/L [facility] CO2 26 22 - 32 mmol/L [facility] Anion gap 9 2 - 15 mmol/L [facility] BUN 16 6 - 25 mg/dL [facility] Creatinine 0.97 0.80 - 1.30 mg/dL [facility] Glucose 114 70 - 199 mg/dL [facility] Comment: Interpretive Data Fasting glucose >/= 126 mg/dl is diagnostic for diabetes. Fasting is defined as no caloric intake [...] 2022. Calcium 9.1 8.5 - 10.3 mg/dL [facility] Bilirubin, total 0.2 0.1 - 1.2 mg/dL [facility] Protein, pl 6.9 6.5 - 8.5 g/dL [facility] Albumin 3.4(L) 3.5 - 5.0 g/dL [facility] Alk phos 110 40 - 130 Units/L [facility] ALT 28 7 - 55 Units/L [facility] AST 32 10 - 50 Units/L [facility] Blood 03/12/2024 3:34 PM CAUSTICS LOADER 03/12/2024 4:10 PM CAUSTICS LOADER us Rick Fabian MD LAB BLOOD ORDERABLES Final Resul t Performing Organization Address [facility]/ZIP Co de Phone Number PAULA [facility] Department [place] [address] * X-ray chest 2 views (03/12/2024 2:41 PM CAUSTICS LOADER) Anatomical Region Laterality Modality Body, Chest N/A Computed Radiogr aphy 03/12/2024 3:17 PM CAUSTICS LOADER Impressions 03/12/2024 3:17 PM CAUSTICS LOADER Comparison 12/17/2023. Heart size normal. Pediatric median sternotomy wires noted. No pneumothorax or pleural effusion. Clear lungs. Electronically signed by: Cyril Gilbert M.D. Narrative 03/12/2024 3:17 PM CAUSTICS LOADER EXAMINATION: 2 view chest radiograph Procedure Note Cyril Gilbert MD - 03/12/2024 EXAMINATION: 2 view chest radiograph IMPRESSION: Comparison 12/17/2023. Heart size normal. Pediatric median sternotomy wires noted. No pneumothorax or pleural effusion. Clear lungs. Electronically signed by: Cyril Gilbert M.D. us Jam Sands MD IMG XR PROCEDURES Fi nal Result * IgG (02/15/2024 3:10 PM CAUSTICS LOADER) Immunoglobulin G 1,167 700 - 1,600 mg/dL Blood 02/15/2024 3:10 PM CAUSTICS LOADER 02/15/2024 5:04 PM CAUSTICS LOADER us Rupal Isabel MD LAB BLOOD ORDERABLES Fi nal Result [facility] Department [place] [address] * Hepatitis panel, acute (11/28/2020 5:33 PM CDT) Pathologist [facility] Hep A IgM Nonreactive Nonreactive PAULA MERAZ Comment: Interpretive Data: If Hep A IgM Ab is reported as Equivocal, a new sample should be drawn in two weeks for testing. Current interpretive data was last revised on 19. Hep B core IgM Nonreactive Nonreactive [facility] Comment: Interpretive Data If HepB Core IgM Ab is reported as Equivocal, a new sample should be drawn in two weeks for testing. Current interpretive data was last revised on 19. Hep C Ab Nonreactive Nonreactive [facility] Comment:Antibodies to HCV no t detected. Does NOT exclude the possibility of recent exposure to HCV. HepBsAg Nonreactive Nonreactive [facility] Blood 11/28/2020 5:33 PM CDT 11/28/2020 5:53 PM CDT us Jazzmine Mccartney NP LAB MICROBIO LOGY - GENERAL ORDERABLES Edited Result - Final [facility] Department [place] [address] from Last 3 Months or Most Recently Relevant to Health Maintenance Insurance [place] CHO[place] [facility] CHOICE PLUS [facility] HMO/PPO Address: [address] [address] [place] [address] [employer] OPEN ACCESS CHOICE PRF [place] [facility] CHOICE PLUS [facility] HMO/PPO Address: [address] [address] [place] [address] [employer] OPEN ACCESS [place] [employer] OPEN ACCESS [facility] CHOICE PLUS 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
--- OUTSIDE RECORDS SUMMARY | 2024-05-13 17:11 | XMS_ITS | Encounter Summary ---
Author Organization [facility] [employer] of [facility] Address [address] [place] [address] Phone Care Team Providers Care Gas Mask Inspector Name Role Phone Zoila Gleason MD Primary Care Provider [phone] Rupal Isabel MD Unavailable [phone] Rekha Osborne MD Unavailable [phone] Mayuri Lyn RN Unavailable [phone] Michelle Colin NARCOTICS AGENT Unavailable [phone] Encounter Details Date Type Department Care Team [...] on file Legal Sex Male 1:[address]YER Gender Identity Male 10/02/2023 12:44 PM CDT [...] COVID: Suspected 04/21/2020 04/21/2020 04/21/2020 11:[address]YER Respiratory Infection (MICKEY), contact + droplet Comment:Automatically added due to negative COVID-19 result. 04/21/2020 04/21/2020 05/05/2020 3:[address]YER COVID: Suspected 04/21/2020 04/21/2020 04/21/2020 6:[address] BUYER COVID: Suspected 09/25/2020 09/25/2020 09/25/2020 10:11 AM CDT Rhino/Enterovirus 09/25/2020 09/25/2020 10/02/2020 3:05 AM CDT COVID: Recovered 11/29/2020 11/29/2020 03/29/2021 3:[address] BUYER COVID: Suspected 10/09/2021 10/09/2021 10/09/2021 9:37 AM CDT COVID: Suspected 03/06/2022 03/06/2022 03/06/2022 9:[address] BUYER RSV, droplet 03/06/2022 03/06/2022 03/13/2022 3:[address] BUYER COVID: Suspected 06/26/2022 06/26/2022 06/26/2022 5:59 PM CDT Coronavirus, droplet 06/26/2022 06/26/2022 023 3:06 AM CDT documented as of this encounter Care Teams Gas Mask Inspector Relationship Specialty Start Date End Date Zoila Gleason MD [address] [place] [address] PCP - General 09/29/16 Rupal Isabel MD [address] [place] [address] [address] [place] [address] Referring Physician Allergy and Immunology 01/11/19 Rekha Osborne MD [address] [place] [address] Medical Oncologist/Nematology Teacher Hematology 05/11/20 Mayuri Lyn, RN [address] [facility] [address] [place] [address] LAST Outpatient Hotel Or Motel Receptionist 12/04/20 01/04/21 Michelle Colin LCSW [address] [facility] ([facility] Mailstop [phone] [place] [address] SHOP Outpatient Hotel Or Motel Receptionist 10/19/21 11/16/21 documented as of this encounter
--- OUTSIDE RECORDS SUMMARY | 2024-05-13 17:11 | XMS_ITS | Encounter Summary ---
Author Organization [facility] [email or web address] of [facility] Address [address] [place] [address] Phone Care Team Providers Care Director Compensation Name Role Phone Zoila Gleason MD Primary Care Provider Rupal Isabel MD Unavailable [phone] Rekha Osborne MD Unavailable Mayuri Lyn RN Unavailable [phone] Michelle ColinW Unavailable [phone] Encounter Details Date Type Department Care Team [...] file Legal Sex Male 1:53 AM MANAGER MEMBERSHIP Gender Identity Male 10/02/2023 12:44 PM CDT [...] Recovered 11/29/2020 11/29/2020 03/29/2021 3:05 AM MANAGER MEMBERSHIP COVID: Suspected 10/09/2021 10/09/2021 10/09/2021 9:37 AM CDT COVID: Suspected 03/06/2022 03/06/2022 03/06/2022 9:30 AM MANAGER MEMBERSHIP RSV, droplet 03/06/2022 03/06/2022 03/13/2022 3:05 AM MANAGER MEMBERSHIP COVID: Suspected 06/26/2022 06/26/2022 06/26/2022 5:59 PM CDT Coronavirus, droplet 06/26/2022 06/26/2022 023 3:06 AM CDT documented as of this encounter Care Teams Director Compensation Relationship Specialty Start Date End Date Zoila Gleason MD [address] [place], [place] [address] PCP - General 09/29/16 Rupal Isabel MD 10 [facility] [address] [place] [address] Referring Physician Allergy and Immunology 01/11/19 Rekha Osborne MD [address] [place] [address] Medical Oncologist/Account Manager Relief Hematology 05/11/20 Mayuri Lyn, RN [address] [facility] [address] [place] [address] SHOP Outpatient Gas Flow Regulator 12/04/20 01/04/21 Michelle Colin LCSW 45[address] [facility] ([facility] Mailstop [phone] [place] [address] SHOP Outpatient Gas Flow Regulator 10/19/21 11/16/21 documented as of this encounter
--- OUTSIDE RECORDS SUMMARY | 2024-05-13 17:11 | XMS_ITS | Encounter Summary ---
Author Organization [facility] Address [address] [place] [address] Phone Care Team Providers Care Administrative Director Name Role Phone Zoila Gleason MD Primary Care Provider [phone] Rupal Isabel MD Unavailable [phone] Rekha Osborne MD Unavailable [phone] Mayuri Lyn RN Unavailable [phone] Michelle ColinW Unavailable [phone] Encounter Details Date Type Department Care Team [...] than three times a week 12/10/2020 Attends Muslim Services Not on file 12/10 Active Member [...] place to sleep or slept in a [place] care facility (including now)? No 12/10/2020 Sex and Gender Information Value Date Recorded Sex Assigned at Not on file Legal Sex Male 1:53 AM RELIGIOUS STUDIES PROFESSOR Gender Identity Male 10/02/2023 12:44 PM [...] COVID: Recovered 11/29/2020 11/29/2020 03/29/2021 3:05 AM RELIGIOUS STUDIES PROFESSOR COVID: Suspected 10/09/2021 10/09/2021 10/09/2021 9:37 AM CDT COVID: Suspected 03/06/2022 03/06/2022 03/06/2022 9:30 AM RELIGIOUS STUDIES PROFESSOR RSV, droplet 03/06/2022 03/06/2022 03/13/2022 3:05 AM RELIGIOUS STUDIES PROFESSOR COVID: Suspected 06/26/2022 06/26/2022 06/26/2022 5:59 PM CDT Coronavirus, droplet 06/26/2022 06/26/2022 023 3:06 AM CDT documented as of this encounter Care Teams Administrative Director Relationship Specialty Start Date End Date Zoila Gleason MD [address] [place] [address] PCP - General 09/29/16 Rupal Isabel MD 10 [facility] [address] [place] [address] Referring Physician Allergy and Immunology 01/11/19 Rekha Osborne MD [address] [place] [address] Medical Oncologist/Log Rider Hematology 05/11/20 Mayuri Lyn, RN 45[address] [facility] [address] [place] [address] SHOP Outpatient Cylinder Dyer 12/04/20 01/04/21 Michelle Colin LCSW 45[address] [facility] ([facility] Mailstop [phone] [place] [address] SHOP Outpatient Cylinder Dyer 10/19/21 11/16/21 documented as of this encounter
--- OUTSIDE RECORDS SUMMARY | 2024-05-13 17:11 | XMS_ITS | Referral Summary ---
Author Organization [facility] ospital Address [address] [place] [address] Care Team Providers Care Counter Professional Name Role Phone Zoila Gleason MD Primary Care Provider [phone] Rupal Isabel MD Unavailable [phone] Rekha Osborne MD Unavailable Encounters Date Type Department Care Team Description 05/13/2024 2:40 PM LIVESTOCK SLAUGHTERER Office Visit [facility] Endocrinology Metabolism and Lipid [address] [facility] 5th [place] [address] [place] [phone] Jesenia Cottrell MD Arrived 04/25/2024 11:30 AM LIVESTOCK SLAUGHTERER Lab [facility] at [address] [phone] AIHA (autoimmune hemolytic anemia) (HCC); Chronic ITP (idiopathic thrombocytopenia) (HCC) 04/25/2024 8:30 AM LIVESTOCK SLAUGHTERER Lab [facility] Oncology [address] [place] [address] [address] [place] [phone] 04/25/2024 9:00 AM LIVESTOCK SLAUGHTERER Office Visit [facility] Hematology [address] [facility] Medical Office Building 2 [address] [place] [phone] Rekha Osborne MD AIHA (autoimmune hemolytic anemia) (HCC) (Primary Dx); Chronic ITP (idiopathic thrombocytopenia) (HCC); CVID (common variable immunodeficiency) (HCC); High risk medication use 04/11/2024 Orders Only [facility] Hematology [address] [facility] Floor 6 [place] [phone] Saniya Alberts RN 04/09/2024 Telephone [facility] [address] [facility] Advanced Medicine 5th [place] [address] [place] [address] Kobi Og MD 04/01/2024 Telephone [facility] [address] [facility] Floor 6 [place] [phone] Saniya Alberts RN 03/19/2024 Telephone [facility] [address] [facility] Office Building 2 [address] [place] [phone] Kobi Og MD 03/12/2024 3:40 PM LIVESTOCK SLAUGHTERER - 03/12/2024 11:59 PM LIVESTOCK SLAUGHTERER Hospital Encounter [facility] ([facility]) [address] [place] [address] Osteoporosis without current pathological fracture, unspecified osteoporosis type Discharge Disposition: Discharge to home or self care 03/12/2024 6:15 PM LIVESTOCK SLAUGHTERER Lab [facility] ([facility]) [address] [place] [phone] Osteoporosis without current pathological fracture, unspecified osteoporosis type 03/12/2024 2:34 PM LIVESTOCK SLAUGHTERER - 03/12/2024 11:59 PM LIVESTOCK SLAUGHTERER Hospital Encounter [facility] ([facility]) [address] [place] [address] Mild persistent asthma without complication Discharge Disposition: Discharge to home or self care 03/12/2024 2:30 PM LIVESTOCK SLAUGHTERER Office Visit [facility] Pulmonary [address] [facility] Advanced Medicine 8th [place] [address] [place] [address] Jam Sands MD Mild persistent asthma without complication (Primary Dx); Lymphocytic interstitial pneumonia (CMS/HCC) (HCC) 03/05/2024 9:20 AM LIVESTOCK SLAUGHTERER Office Visit [facility] [address] [facility] Advanced Medicine 5th [place] [address] [place] [address] Kobi Og MD Osteoporosis without current pathological fracture, unspecified osteoporosis type (Primary Dx); Arpita's syndrome (CMS/HCC) (HCC); Adrenal insufficiency (HCC); Hypogonadism in male 02/21/2024 Telephone [facility] Allergy and Immunology [address] [place] [address] [address] [place] [address] Elodia Jonhs RN 02/15/2024 3:05 PM LIVESTOCK SLAUGHTERER Lab [facility] at the [address] [phone] CVID (common variable immunodeficiency) (HCC) 02/15/2024 2:00 PM LIVESTOCK SLAUGHTERER Office Visit [facility] Allergy and Immunology [address] [place] [address] [place] [phone] Rupal Isabel MD CVID (common variable immunodeficiency) ([facility]) (Primary Dx); Arpita's syndrome (CMS/HCC) (HCC) from Last 3 Months Allergies Active Allergy [...] needle 3 mL 23 gauge x 1 /2 syringe 1 Syringe as needed (for solu-cortef) 5 Syringe 020 Active EPINEPHrine 0.3 mg/0.3 mL auto-injection syringeIndicatio ns:Anaphylaxis,r elated to immune globulin Inject 0.3 mL (0.3 mg total) into the muscle as instructed as needed for anaphylaxis Never used. 021 Active Darius Rene [facility] spacer USE WITH INHALER DIRECTED 021 Active ergocalciferol (VITAMIN D) 50,000 unit capsuleIndicatio ns:Vitamin D Deficiency Take 1 capsule (50,000 Units total) by mouth once a week Sundays. Active IgG-hyaluronidas e,recombinant 10 gram /100 mL (10 %) solution Inject 50 g under the skin every 4 (four) weeks 500 mL 3 021 Active valACYclovir (VALTREX) 1 gram tabletIndication s:shingles Take 1 tablet (1,000 mg total) by mouth as needed Active albuterol 2.5 mg /3 mL (0.083 %) nebulizer solutionIndicati ons:Acute Asthma Attack Take 3 mL (2.5 mg total) by nebulization every 4 (four) hours as needed for wheezing or shortness of breath 022 Active sertraline (ZOLOFT) 100 mg tabletIndication s:Anxiety with Depression Take 1 tablet (100 mg total) by mouth every morning 0.5 tablet Active imiquimod (ALDARA) 5 % creamIndications :skin issues Apply 1 packet topically as needed 023 Active levothyroxine (SYNTHROID) 112 mcg tabletIndication s:hypothyroidism Take 1 tablet (112 mcg total) by mouth reuse technician before breakfast 023 Active Solu-CORTEF Act-O-Vial, PF, 100 mg/2 mL recon soln INJECT 2 MILLILITERS (100MG) INTRAMUSCULARLY DAILY NEEDED FOR ADRENAL CRISIS Active ondansetron ODT (ZOFRAN-ODT) 4 mg disintegrating tablet DISSOLVE 1 TABLET IN MOUTH EVERY 8 HOURS NEEDED FOR NAUSEA AND VOMITING 024 Active prednisoLONE (MILLIPRED) 5 mg tablet Take 1 tablet (5 mg total) by mouth daily 024 Active docusate sodium (COLACE) 100 mg capsuleIndicatio [...] of 12/18/23 at 1300, per [facility] [phone] - E. Coli. -Repeat blood cultures NGTD -Received cefepime; changed to cefuroxime to complete a 7 day course. Source is suspected to be UTI -TTE neg for vegetations Leukocytosis 12/17/2023 Assessment & Plan (12/17/2023 8:50 PM CDT): CBC at [place] 12/15 WBC 20.5 (81% neutrophils). 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 Hgb now [...] cytopenia, his initial presentation for thrombocytopenia to [facility] was in 2012 (17 yo) with [...] responded to steroid and rituximab last time ([id number]). During his last admission for UTI, he [...] bid - received stress dose steroids at [place] - continue pred 5 BID - per [...] an anti-21 hydroxylase antibody to rule out O'Brien's as well as a low dose ACTH stim test at some point after 72 hours from last stress dose. He is very well appearing and does not have an indication for stress dosing at this time. - send anti-21 hydroxylase antibody (red top 2 ml) 2107 to [facility] - consider ACTH stim test this admission [...] now nearly completely healed. Is following with [facility] as an outpatient. Next appointment 01/08. Assessment & Plan (01/04/2020 8:29 PM CDT): Developed stage 4 decubitus ulcer while critically ill. Wound is now nearly completely healed. Is following with [facility] as an outpatient. Next appointment Assessment & [...] patient on 11/07. CVID (common variable immunodeficiency) ([facility] ) 04/16/2018 Assessment & Plan [...] history of CVID on monthly Hizentra infusions. Jorid's last infusion was approximately 12/13. His IgG [...] AM CDT): Stable. Followed by endocrinology at [facility]. Currently on 150 mcg levothyroxine daily. [...] Avoid concomitant administration of Levothyroxine with patient's PBX INSPECTOR iron. Separate dosing by at least 4 hours. Pediatric Endocrinology will continue to follow. Arpita's syndrome ([facility]/HCC) 04/16/2018 Overview (05/14/2020): Autoimmune anemia, neutropenia, thrombocytopenia [...] Influenza, Trivalent, Preser vative Free, Intramuscular 03/09/2016 SelStor (J&J) SARS-CoV-2 Vaccination 06/08/2020 MMR 10/01/2002,01/20/1999 Meningococcal [...] often do you attend chur ch or hoahaoism services? Never 10/11/2021 Do you belong to any clubs o r organizations such as oriental orthodox groups, unions, fraternal or athletic groups, or [...] to sleep or slept in a senior living (including now)? No 10/11/2021 Personal Safety Answer Date Recorded Have you ever been in or are you currently in a harmful physical or emotional relationship or is someone making you feel afraid or unsafe? Patient unable to answer 12/18/2023 Sex and Gender Information Value Date Recorded Sex Assigned at Not on file Legal Sex Male 1:53 AM LIVESTOCK SLAUGHTERER Gender Identity Male 10/02/2023 12:44 PM CDT Sexual Orientation Don't know 11/15/2020 1: 06 PM CDT Last Filed Vital Signs Vital Sign Reading Time Taken Comments Blood Pressure 117/79 05/13/2024 2:31 PM LIVESTOCK SLAUGHTERER Pulse 90 05/13/2024 2:31 PM LIVESTOCK SLAUGHTERER Temperature 36.9 C (98.5 F) 05/13/2024 2:31 PM LIVESTOCK SLAUGHTERER Respiratory Rate 18 03/12/2024 2:48 PM LIVESTOCK SLAUGHTERER Oxygen Saturation 96% 03/12/2024 2:48 PM LIVESTOCK SLAUGHTERER Inhaled Oxygen Concentration - - Weight 60.8 kg (134 lb) 05/13/2024 2:31 PM LIVESTOCK SLAUGHTERER Height 160 cm (5' 3 ) 05/13/2024 2:31 PM LIVESTOCK SLAUGHTERER Body Mass Index 23.74 05/13/2024 2:31 PM LIVESTOCK SLAUGHTERER Plan of Treatment Not on file Procedures Procedure Name Priority Date/Time Associated Diagnosis Comments EGFR Routine 04/25/2024 10:00 AM LIVESTOCK SLAUGHTERER AIHA (autoimmune hemolytic anemia) (HCC) Chronic ITP (idiopathic thrombocytopenia) (HCC) DIFFERENTIAL AUTO Routine 04/25/2024 10: 00 AM LIVESTOCK SLAUGHTERER AIHA (autoimmune hemolytic anemia) (HCC) Chronic ITP (idiopathic thrombocytopenia) (HCC) CBC WITH AUTO DIFFERENTIAL Routine 04/25/2024 10:00 AM LIVESTOCK SLAUGHTERER AIHA (autoimmune hemolytic anemia) (HCC) Chronic ITP (idiopathic thrombocytopenia) (HCC) COMPREHENSIVE METABOLIC PANEL Routine 04/25/2024 10:00 AM LIVESTOCK SLAUGHTERER AIHA (autoimmune hemolytic anemia) (HCC) Chronic ITP (idiopathic thrombocytopenia) (HCC) RETICULOCYTES Routine 04/25/2024 10:00 AM LIVESTOCK SLAUGHTERER AIHA (autoimmune hemolytic anemia) (HCC) Chronic ITP (idiopathic thrombocytopenia) (HCC) HAPTOGLOBIN Routine 04/25/2024 10:00 AM LIVESTOCK SLAUGHTERER AIHA (autoimmune hemolytic anemia) (HCC) Chronic ITP (idiopathic thrombocytopenia) (HCC) LACTATE DEHYDROGENASE Routine 04/25/2024 10:00 AM LIVESTOCK SLAUGHTERER AIHA (autoimmune hemolytic anemia) (HCC) Chronic ITP (idiopathic thrombocytopenia) (HCC) DIRECT ANTIGLOBULIN TEST Routine 04/25/2024 10:00 AM LIVESTOCK SLAUGHTERER AIHA (autoimmune hemolytic anemia) (HCC) Chronic ITP (idiopathic thrombocytopenia) (HCC) XR SCOLIOSIS AP LAT Schedule Routine, Read Routine (OP Routine) 03/12/2024 4:00 PM LIVESTOCK SLAUGHTERER Osteoporosis without current pathological fracture, unspecified osteoporosis type EGFR Routine 03/12/2024 3:34 PM LIVESTOCK SLAUGHTERER Osteoporosis without current pathological fracture, unspecified osteoporosis type BETA-CROSSLAPS (BETA-CTX) Routine 03/12/2024 3:34 PM LIVESTOCK SLAUGHTERER Osteoporosis without current pathological fracture, unspecified osteoporosis type COMPREHENSIVE METABOLIC PANEL Routine 03/12/2024 3:34 PM LIVESTOCK SLAUGHTERER Osteoporosis without current pathological fracture, unspecified osteoporosis type PTH Routine 03/12/2024 3:34 PM LIVESTOCK SLAUGHTERER Osteoporosis without current pathological fracture, unspecified osteoporosis type PHOSPHORUS Routine 03/12/2024 3:34 PM LIVESTOCK SLAUGHTERER Osteoporosis without current pathological fracture, unspecified osteoporosis type OSTEOCALCIN Routine 03/12/2024 3:34 PM LIVESTOCK SLAUGHTERER Osteoporosis without current pathological fracture, unspecified osteoporosis type ALKALINE PHOSPHATASE, BONE SPECIFIC Routine 03/12/2024 3:34 PM LIVESTOCK SLAUGHTERER Osteoporosis without current pathological fracture, unspecified osteoporosis type GAMMA GT Routine 03/12/2024 3:34 PM LIVESTOCK SLAUGHTERER Osteoporosis without current pathological fracture, unspecified osteoporosis type XR CHEST PA LATERAL 2 VIEWS Schedule Routine, Read Routine (OP Routine) 03/12/2024 2:41 PM LIVESTOCK SLAUGHTERER Mild persistent asthma without complication IGG Routine 02/15/2024 3:10 PM LIVESTOCK SLAUGHTERER CVID (common variable immunodeficiency) (HCC) HEPATITIS PANEL, ACUTE Routine 11/28/2020 5:33 PM CDT from Last 3 Months or Most Recently Relevant to Health Maintenance Results * eGFR (04/25/2024 10:00 AM LIVESTOCK SLAUGHTERER) eGFR >90 >=60 mL/min/1. 73 m2 Comment: [...] was last reviewed 2021. Testing performed by: [facility], [address] [facility], [place] [address] Blood 04/25/2024 10:0 0 AM LIVESTOCK SLAUGHTERER 04/25/2024 10:16 AM LIVESTOCK SLAUGHTERER us Rekha Osborne MD LAB BLOOD ORDERABLES Final Result [facility] [address] [facility]. [place] [address] * (ABNORMAL) Differential, auto (04/25/2024 10:00 AM LIVESTOCK SLAUGHTERER) Neutrophil abs 8.6(H) 1.5 - 6.5 K/cumm Comment:Testing performed by : [facility], [facility] 2, [address] [place] [address] Imm gran abs 0.5(H) 0.0 - 0.1 K/cumm CERNER BJWCH Comment:Testing performed by : [facility], [facility] 2, [address] [place] [address] Lymphocyte abs 2.3 0.8 - 3.3 K/cumm CERNER BJWCH Comment:Testing performed by : [facility], [facility] 2, [address] [place] [address] Monocyte abs 1.4(H) 0.2 - 0.8 K/cumm CERNER BJWCH Comment:Testing performed by : [facility], [facility] 2, [address] [place] [address] Eosinophil abs 0.1 0.0 - 0.5 K/cumm CERNER BJWCH Comment:Testing performed by : [facility], [facility] 2, [address] [place] [address] Basophil abs 0.2(H) 0.0 - 0.1 K/cumm CERNER BJWCH Comment:Testing performed by : [facility], [facility] 2, [address] [place] [address] Neutrophil pct 65.5 % CERNER BJWCH Comment: Interpretive Data Percent cell count reference ranges are not reported, since discordance with absolute values may lead to misinterpretation of CBC data. Current Interpretive Data was last revised on 2017. Testing performed by: [facility], [facility] 2, [address] [place] [address] Imm gran pct 4.0 % CERNER BJWCH Comment: Interpretive Data Percent cell count reference ranges are not reported, since discordance with absolute values may lead to misinterpretation of CBC data. Current Interpretive Data was last revised on 2017. Testing performed by: [facility], [facility] 2, [address] [place] [address] Lymphocyte pct 17.2 % CERNER BJWCH Comment: Interpretive Data Percent cell count reference ranges are not reported, since discordance with absolute values may lead to misinterpretation of CBC data. Current Interpretive Data was last revised on 2017. Testing performed by: [facility], [facility] 2, [address] [place] [address] Monocyte pct 10.9 % CERARTHUR CAMPOS Comment: Interpretive Data Percent cell count reference ranges are not reported, since discordance with absolute values may lead to misinterpretation of CBC data. Current Interpretive Data was last revised on 2017. Testing performed by: [facility], [facility] 2, [address] [place] [address] Eosinophil pct 0.7 % PAULA CAMPOS Comment: Interpretive Data Percent cell count reference ranges are not reported, since discordance with absolute values may lead to misinterpretation of CBC data. Current Interpretive Data was last revised on 2017. Testing performed by: [facility], [facility] 2, [address] [place] [address] Basophil pct 1.7 % PAULA MERAZLEE Comment: Interpretive Data Percent cell count reference ranges are not reported, since discordance with absolute values may lead to misinterpretation of CBC data. Current Interpretive Data was last revised on 2017. Testing performed by: [facility], [facility] 2, [address] [place] [address] Blood 04/25/2024 10:0 0 AM LIVESTOCK SLAUGHTERER 04/25/2024 10:05 AM LIVESTOCK SLAUGHTERER us Rekha Osborne MD LAB BLOOD ORDERABLES Final Result [facility]A [facility] [address] [facility]. [place] [address] * (ABNORMAL) CBC with auto differential (04/25/2024 10:00 AM LIVESTOCK SLAUGHTERER) WBC 13.1(H) 3.8 - 9.9 K/cumm Comment:Testing performed by : [facility] 2, [address] [place] [address] Hgb 15.1 13.0 - 17.5 g/dL CERNER BJWCH Comment:Testing performed by : [facility] 2, [address], [place] [address] Hct 45.6 38.9 - 50.3 % CERNER BJWCH Comment:Testing performed by : [place] [address], [address], [place] [address] Plt 201 150 - 400 K/cumm CERNER BJWCH Comment:Testing performed by : [place] [address], [address], [place] [address] MPV 12.4(H) 9.1 - 12.3 fL CERNER BJWCH Comment:Testing performed by : [place] [address], [address], [place] [address] RBC 4.78 4.30 - 5.80 M/cumm CERNER BJWCH Comment:Testing performed by : [place] [address], [address], [place] [address] MCV 95 81 - 96 fL CERNER BJWCH Comment:Testing performed by : [place] [address], [address], [place] [address] MCH 31.6 27.1 - 33.3 pg CERNER BJWCH Comment:Testing performed by : [place] [address], [address] [place] [address] MCHC 33.1 32.3 - 35.7 g/dL CERNER BJWCH Comment:Testing performed by : [place] [address], [address], [place] [address] RDW CV 16.8(H) 11.1 - 14.9 % CERNER BJWCH Comment:Testing performed by : [facility] 2, [address], [place] [address] RDW SD 58.8(H) 35.7 - 48.1 fL CERNER BJWCH Comment:Testing performed by : [facility], [facility] 2, [address] [place] [address] NRBC abs 0.03(H) 0.00 - 0.01 K/cumm PAULA CAMPOS Comment:Testing performed by : [facility], [facility] 2, [address] [place] [address] Blood 04/25/2024 10:0 0 AM LIVESTOCK SLAUGHTERER 04/25/2024 10:05 AM LIVESTOCK SLAUGHTERER Rekha Osborne MD LAB BLOOD ORDERABLES Final Result Performing Organization Address [facility] Co de Phone Number [facility] [address] [place] [facility] [address] [place] [address] * (ABNORMAL) Reticulocyte Count (04/25/2024 10:00 AM LIVESTOCK SLAUGHTERER) Retics, absolute 0.104(H) 0.020 - 0.087 M/cumm Comment:Testing performed by : [facility], [facility] 2, [address] [place] [address] Retics 2.2 0.4 - 2.9 % PAULA CAMPOS Comment:Testing performed by : [facility], [facility] 2, [address] [place] [address] Reticulocyte Hgb 32.9 30.5 - 38.0 pg PAULA CAMPOS Comment:Testing performed by : [facility], [facility] 2, [address] [place] [address] Blood 04/25/2024 10:0 0 AM LIVESTOCK SLAUGHTERER 04/25/2024 10:05 AM LIVESTOCK SLAUGHTERER Rekha Osborne MD LAB BLOOD ORDERABLES Final Result Performing Organization Address City/[facility]/ZIP Co de Phone Number [facility]A MER[facility] [address] [facility] [address] [place] [address] * Direct antiglobulin test (04/25/2024 10:00 AM LIVESTOCK SLAUGHTERER) HUMZA Poly Interp Negative Comment:Testing performed by : [facility], [id number] [place] [address] [place] [address] Blood 04/25/2024 10:0 0 AM LIVESTOCK SLAUGHTERER 04/25/2024 10:16 AM LIVESTOCK SLAUGHTERER Rekha Osborne MD LAB BLOOD BANK TEST ORDERAB LES Final Result [facility]A [facility] [address] [place] [facility]. [facility] 1,[address] [place] [address] * Lactate dehydrogenase (LD) (04/25/2024 10:00 AM LIVESTOCK SLAUGHTERER) Pathologist [facility] Lactate dehydrogenase (LDH) 139 100 - 250 Units/L Comment:Testing performed by : [facility], [address] [place] [address] [place] [address] Blood 04/25/2024 10:0 0 AM LIVESTOCK SLAUGHTERER 04/25/2024 10:16 AM LIVESTOCK SLAUGHTERER Rekha Osborne MD LAB BLOOD ORDERABLES Edited Result - Final Performing Organization Address [facility]/ZIP Co de Phone Number PAULA BJ[facility] [address] [place] [employer]. [facility] 1,[address] [place] [address] * (ABNORMAL) Haptoglobin (04/25/2024 10:00 AM LIVESTOCK SLAUGHTERER) Haptoglobin 221(H) 30 - 200 mg/dL Comment:Testing performed by : [facility], [facility]5 [facility], [place]., [address] Blood 04/25/2024 10:0 0 AM LIVESTOCK SLAUGHTERER 04/25/2024 1:35 PM LIVESTOCK SLAUGHTERER Rekha Osborne MD LAB BLOOD ORDERABLES Final Result Performing Organization Address City/[facility]/ZIP Co de Phone Number PAULA [facility] [address] [place] [facility] [place] [address] * Comprehensive metabolic panel (04/25/2024 10:00 AM LIVESTOCK SLAUGHTERER) Sodium 139 135 - 145 mmol/L Comment:Testing performed by : [facility], [address] [place] [address], [place] [address] Potassium, pl 4.1 3.3 - 4.9 mmol/L CERNER BJWCH Comment:Testing performed by : [facility], [address] [place] [address], [place] [address] Chloride 103 97 - 110 mmol/L CERNER BJWCH Comment:Testing performed by : [facility], [address] [place] [address], [place] [address] CO2 26 22 - 32 mmol/L CERNER BJWCH Comment:Testing performed by : [facility], [address] [place] [address], [place] [address] Anion gap 10 2 - 15 mmol/L CERNER BJWCH Comment:Testing performed by : [facility], [address] [place] [address], [place] [address] BUN 15 6 - 25 mg/dL CERNER BJWCH Comment:Testing performed by : [facility], [address] [place] [address], [place] [address] Creatinine 0.80 0.80 - 1.30 mg/dL CERNER BJWCH Comment:Testing performed by : [facility], [address] [place] [address], [place] [address] Glucose 98 70 - 199 mg/dL CERNER [...] was last revised 2022. Testing performed by: [facility], [address] [place] [address], [place] [address] Calcium 9.3 8.5 - 10.3 mg/dL CERNER BJWCH Comment:Testing performed by : [facility], [address] [place] [address], [place] [address] Bilirubin, total 0.2 0.1 - 1.2 mg/dL CERNER BJWCH Comment:Testing performed by : [facility], [address] [place] [address], [place] [address] Protein, pl 6.8 6.5 - 8.5 g/dL CERNER BJWCH Comment:Testing performed by : [facility], [address] [place] [address], [place] [address] Albumin 3.7 3.5 - 5.0 g/dL CERNER BJWCH Comment:Testing performed by : [facility], [address], [place] [address] Alk phos 122 40 - 130 Units/L [facility] Comment:Testing performed by : [facility], [address], [place] [address] ALT 29 7 - 55 Units/L [facility] Comment:Testing performed by : [facility], [address], [place] [address] AST 23 10 - 50 Units/L [facility] Comment:Testing performed by : [facility], [address], [place] [address] Blood 04/25/2024 10:0 0 AM LIVESTOCK SLAUGHTERER 04/25/2024 10:16 AM LIVESTOCK SLAUGHTERER us Rekha Osborne MD LAB BLOOD ORDERABLES Edited Result - Final [facility] [address] [place] [address] * XR Scoliosis 2 or 3 Views (03/12/2024 4:00 PM LIVESTOCK SLAUGHTERER) Anatomical Region Laterality Modality Spine N/A Computed Radiogr aphy 03/12/2024 4:28 PM LIVESTOCK SLAUGHTERER Impressions 03/12/2024 4:28 PM LIVESTOCK SLAUGHTERER No compression deformities of the spine. Electronically signed by: Inderjit Valle D.O. Narrative 03/12/2024 4:28 PM LIVESTOCK SLAUGHTERER EXAMINATION: XR SCOLIOSIS AP AND LATERAL HISTORY: [...] Final Result * eGFR (03/12/2024 3:34 PM LIVESTOCK SLAUGHTERER) eGFR >90 >=60 mL/min/1. 73 m2 Comment: [...] last reviewed 2021. Blood 03/12/2024 3:34 PM LIVESTOCK SLAUGHTERER 03/12/2024 4:13 PM LIVESTOCK SLAUGHTERER Rick Fabian MD LAB BLOOD ORDERABLES Final Resul t Performing Organization Address [facility] [place] [address] * Beta-CrossLaps (Beta-CTx) (03/12/2024 3:34 PM LIVESTOCK SLAUGHTERER) Beta-CTx 455 pg/mL Comment: Interpretive Data Female: Premenopausal: 136 - 689 pg/mL Postmenopausal: 177 - 1015 pg/mL Male: 30 - 50 years: 131 - 670 pg/mL 51 - 70 years: 171 - 1060 pg/mL > 70 years: 152 - 858 pg/mL Current interpretive data was last revised on 2023. Blood 03/12/2024 3:34 PM LIVESTOCK SLAUGHTERER 03/12/2024 4:10 PM LIVESTOCK SLAUGHTERER Rick Fabian MD LAB BLOOD ORDERABLES Final Resul t Performing Organization Address [facility] [place] [address] * Alkaline phosphatase, bone specific (03/12/2024 3:34 PM LIVESTOCK SLAUGHTERER) Alk phos, bone 13 0 - 20 mcg/L [facility] Comment: ADDITIONAL INFORMATION Liver-derived alkaline phosphatase (ALP) increases apparent measured bone alkaline phosphatase (BAP) in this assay by 2.5 mcg/L to 5.8 mcg/L for every 100 U/L of liver ALP. Accordingly, serum specimens with significant elevations of liver ALP activity may yield artificially elevated results in the BAP assay. Test Performed by: [facility] [address] [place] [address] Bonding Machine Operator: Imelda Perez Ph.D.; CLIA# [id number] Blood 03/12/2024 3:34 PM LIVESTOCK SLAUGHTERER 03/12/2024 5:05 PM LIVESTOCK SLAUGHTERER Rick Fabian MD LAB BLOOD ORDERABLES Final Resul t Performing Organization Address [facility] Co de Phone Number PAULA [facility] of [address] [place] [address] [facility] * Osteocalcin (03/12/2024 3:34 PM LIVESTOCK SLAUGHTERER) Osteocalcin See Comment Comment: Credited; Hemolyzed Specimen Interpretive Data Female: Premenopausal: 7.6 - 35.1 ng/mL Postmenopausal: 7.3 - 38.5 ng/mL Male: 30 - 50 years: 8.4 - 36.7 ng/mL > 50 years: 9.9 - 35.6 ng/mL Current interpretive data was last revised on 2021. Blood 03/12/2024 3:34 PM LIVESTOCK SLAUGHTERER 03/12/2024 4:10 PM LIVESTOCK SLAUGHTERER Rick Fabian MD LAB BLOOD ORDERABLES Final Resul t Performing Organization Address [facility] Co de Phone Number PAULA [facility] of [address] [place] [address] * Phosphorus (03/12/2024 3:34 PM LIVESTOCK SLAUGHTERER) Phosphorus, pl 4.1 2.3 - 4.5 mg/dL Blood 03/12/2024 3:34 PM LIVESTOCK SLAUGHTERER 03/12/2024 4:10 PM LIVESTOCK SLAUGHTERER Rick Fabian MD LAB BLOOD ORDERABLES Final Resul t Performing Organization Address City/[facility] Co de Phone Number PAULA [facility] [place] [address] * PTH (03/12/2024 3:34 PM LIVESTOCK SLAUGHTERER) Pathologist [facility] PTH 29 15 - 65 pg/mL Blood 03/12/2024 3:34 PM LIVESTOCK SLAUGHTERER 03/12/2024 4:10 PM LIVESTOCK SLAUGHTERER us Rick Fabian MD LAB BLOOD ORDERABLES Final Resul t Performing Organization Address [facility] de Phone Number [facility] Department [place] [address] * Gamma GT (03/12/2024 3:34 PM LIVESTOCK SLAUGHTERER) [facility] GGT 44 10 - 50 Units/L Blood 03/12/2024 3:34 PM LIVESTOCK SLAUGHTERER 03/12/2024 4:10 PM LIVESTOCK SLAUGHTERER us Rick Fabian MD LAB BLOOD ORDERABLES Final Resul t Performing Organization Address [facility] de Phone Number [facility] [place] [address] * (ABNORMAL) Comprehensive metabolic panel (03/12/2024 3:34 PM LIVESTOCK SLAUGHTERER) [facility] Sodium 138 135 - 145 mmol/L Potassium, pl 4.5 3.3 - 4.9 mmol/L [facility] Chloride 103 97 - 110 mmol/L [facility] CO2 26 22 - 32 mmol/L [facility] Anion gap 9 2 - 15 mmol/L [facility] BUN 16 6 - 25 mg/dL [facility] Creatinine 0.97 0.80 - 1.30 mg/dL [facility] Glucose 114 70 - 199 mg/dL [facility] Comment: Interpretive Data Fasting glucose >/= [...] 2022. Calcium 9.1 8.5 - 10.3 mg/dL [facility] Bilirubin, total 0.2 0.1 - 1.2 mg/dL [facility] Protein, pl 6.9 6.5 - 8.5 g/dL [facility] Albumin 3.4(L) 3.5 - 5.0 g/dL [facility] Alk phos 110 40 - 130 Units/L CERNER [facility] ALT 28 7 - 55 Units/L [facility] AST 32 10 - 50 Units/L [facility] Blood 03/12/2024 3:34 PM LIVESTOCK SLAUGHTERER 03/12/2024 4:10 PM LIVESTOCK SLAUGHTERER us Rick Fabian MD LAB BLOOD ORDERABLES Final Resul t [facility] [place] [address] * X-ray chest 2 views (03/12/2024 2:41 PM LIVESTOCK SLAUGHTERER) Anatomical Region Laterality Modality Body, Chest N/A Computed Radiogr aphy 03/12/2024 3:17 PM LIVESTOCK SLAUGHTERER Impressions 03/12/2024 3:17 PM LIVESTOCK SLAUGHTERER Comparison 12/17/2023. Heart size normal. Pediatric median sternotomy wires noted. No pneumothorax or pleural effusion. Clear lungs. Electronically signed by: Cyril Gilbert M.D. Narrative 03/12/2024 3:17 PM LIVESTOCK SLAUGHTERER EXAMINATION: 2 view chest radiograph Procedure Note Cyril Gilbert MD - 03/12/2024 EXAMINATION: 2 view chest radiograph IMPRESSION: Comparison 12/17/2023. Heart size normal. Pediatric median sternotomy wires noted. No pneumothorax or pleural effusion. Clear lungs. Electronically signed by: Cyril Gilbert M.D. us Jam Sands MD IMG XR PROCEDURES Fi nal Result * IgG (02/15/2024 3:10 PM LIVESTOCK SLAUGHTERER) Immunoglobulin G 1,167 700 - 1,600 mg/dL Blood 02/15/2024 3:10 PM LIVESTOCK SLAUGHTERER 02/15/2024 5:04 PM LIVESTOCK SLAUGHTERER Rupal Isabel MD LAB BLOOD ORDERABLES Fi nal Result [facility] Department of [address] [place] [address] * Hepatitis panel, acute (11/28/2020 5:33 PM CDT) Pathologist [facility] Hep A IgM Nonreactive Nonreactive [facility] Comment: Interpretive Data: If Hep A IgM Ab is reported as Equivocal, a new sample should be drawn in two weeks for testing. Current interpretive data was last revised on 19. Hep B core IgM Nonreactive Nonreactive [facility] Comment: Interpretive Data If HepB Core IgM Ab is reported as Equivocal, a new sample should be drawn in two weeks for testing. Current interpretive data was last revised on 19. Hep C Ab Nonreactive Nonreactive [facility] Comment:Antibodies to HCV no t detected. Does NOT exclude the possibility of recent exposure to HCV. HepBsAg Nonreactive Nonreactive [facility] Blood 11/28/2020 5:33 PM CDT 11/28/2020 5:53 PM CDT Jazzmine Mccartney NP LAB MICROBIO LOGY - GENERAL ORDERABLES Edited Result - Final [facility] of [address] [place] [address] from Last 3 Months or Most Recently Relevant to Health Maintenance Insurance [place] [facility] CHOICE PLUS [facility] HMO/PPO Address: [address] [address] [place] [address] [employer] OPEN ACCESS [place] [facility] CHOICE PLUS [facility] HMO/PPO Address: [address] [address] [place] [address] [employer] OPEN ACCESS IDPA CHOICE [facility] [place] [employer] [place] ACCESS [facility] CHOICE PLUS [facility] HMO/PPO Address: [address] [address] [place] [address] Advance Directives For more information, please contact: [phone] Documents on File Type Date Recorded Patient Flatbed Stitcher Expl anation Power of Coupon And Bond Collection Clerk 10/21/2021 12:58 PM ADVANCE DIRECTIVE 10/14/2019 12:35 [...] 5:09 PM 01/02/2021 6:56 PM Care Teams Counter Professional Relationship Specialty Start Date End Date Zoila Gleason MD [address] [place] [address] PCP - General 09/29/16 Rupal Isabel MD 10 [facility] [address] [place] [address] Referring Physician Allergy and Immunology 01/11/19 Rekha Osborne MD [address] [place] [address] Medical Oncologist/Landscape Drafter Hematology 05/11/20
--- OUTSIDE RECORDS SUMMARY | 2024-05-13 17:11 | XMS_ITS | Encounter Summary ---
Author Organization [facility] Address [address] [place] [address] Phone Care Team Providers Care Convolute Tube Winder Name Role Phone Zoila Gleason MD Primary Care Provider Rupal Isabel MD Unavailable [phone] Rekha Osborne MD Unavailable [phone] Mayuri Lyn RN Unavailable [phone] Michelle Colin NEON SIGN ERECTOR Unavailable [phone] Encounter Details Date Type Department Care Team [...] on file Legal Sex Male 1:53 AM ORE BRIDGE OPERATOR Gender Identity Male 10/02/2023 12:44 PM [...] COVID: Recovered 11/29/2020 11/29/2020 03/29/2021 3:05 AM ORE BRIDGE OPERATOR COVID: Suspected 10/09/2021 10/09/2021 10/09/2021 9:37 AM CDT COVID: Suspected 03/06/2022 03/06/2022 03/06/2022 9:30 AM ORE BRIDGE OPERATOR RSV, droplet 03/06/2022 03/06/2022 03/13/2022 3:05 AM ORE BRIDGE OPERATOR COVID: Suspected 06/26/2022 06/26/2022 06/26/2022 5:59 PM CDT Coronavirus, droplet 06/26/2022 06/26/2022 023 3:06 AM CDT documented as of this encounter Care Teams Convolute Tube Winder Relationship Specialty Start Date End Date Zoila Gleason MD [address] [place] [id number] PCP - General 09/29/16 Rupal Isabel MD 10 [facility] [address] [place] [address] Referring Physician Allergy and Immunology 01/11/19 Rekha Osborne MD [address] [place] [address] Medical Oncologist/Stock Speculator Hematology 05/11/20 Mayuri Lyn, RN [address] [facility] [address] [place], [place] [id number] [facility] Outpatient Chemical Dependency Professional 12/04/20 01/04/21 Michelle Colin, NEON SIGN ERECTOR 45[address] [facility] ([facility]) Mailstop [phone] [place] [address] SH[facility] Outpatient Chemical Dependency Professional 10/19/21 11/16/21 documented as of this encounter
--- OUTSIDE RECORDS SUMMARY | 2024-05-13 17:11 | XMS_ITS | Encounter Summary ---
Author Organization [facility] Address [address] [place] [address] Phone Care Team Providers Care Fractionation Supervisor Name Role Phone Zoila Gleason MD Primary Care Provider [phone] Rupal Isabel MD Unavailable [phone] Rekha Osborne MD Unavailable [phone] Mayuri Lyn RN Unavailable [phone] Michelle ColinW Unavailable [phone] Encounter Details Date Type Department Care Team [...] than three times a week 12/10/2020 Attends [employer] Not on file 12/10 Active Member [...] on file Legal Sex Male 1:53 AM LICENSED MENTAL HEALTH COUNSELOR Gender Identity Male 10/02/2023 12:44 PM CDT [...] COVID: Recovered 11/29/2020 11/29/2020 03/29/2021 3:05 AM LICENSED MENTAL HEALTH COUNSELOR COVID: Suspected 10/09/2021 10/09/2021 10/09/2021 9:37 AM CDT COVID: Suspected 03/06/2022 03/06/2022 03/06/2022 9:30 AM LICENSED MENTAL HEALTH COUNSELOR RSV, droplet 03/06/2022 03/06/2022 03/13/2022 3:05 AM LICENSED MENTAL HEALTH COUNSELOR COVID: Suspected 06/26/2022 06/26/2022 06/26/2022 5:59 PM CDT Coronavirus, droplet 06/26/2022 06/26/2022 023 3:06 AM CDT documented as of this encounter Care Teams Fractionation Supervisor Relationship Specialty Start Date End Date Zoila Gleason MD [address] [place] [address] PCP - General 09/29/16 Rupal Isabel MD 10 [facility] [address] [place] [address] Referring Physician Allergy and Immunology 01/11/19 Rekha Osborne MD [address] [place] [address] Medical Oncologist/Donor Relations Associate Hematology 05/11/20 Mayuri Lyn, RN [address] [facility] [address] [place] [address] SHOP Outpatient Manager Investment 12/04/20 01/04/21 Michelle Colin LCSW 4590 [facility] ([facility] Mailstop [phone] [place] [address] SHOP Outpatient Manager Investment 10/19/21 11/16/21 documented as of this encounter
--- OUTSIDE RECORDS SUMMARY | 2024-05-13 17:11 | XMS_ITS | Encounter Summary ---
Author Organization [facility] Address [address] [place] [address] Phone Care Team Providers Care Product Manufacturing Professional Name Role Phone Zoila Gleason MD Primary Care Provider Rupal Isabel MD Unavailable [phone] Rekha Osborne MD Unavailable [phone] Mayuri Lyn RN Unavailable [phone] Michelle Colin MANAGER WEALTH MANAGEMENT Unavailable [phone] Encounter Details Date Type Department Care Team [...] on file Legal Sex Male 1:53 AM DRAFTER CHIEF DESIGN Gender Identity Male 10/02/2023 12:44 PM CDT [...] COVID: Suspected 04/21/2020 04/21/2020 04/21/2020 11:24 AM DRAFTER CHIEF DESIGN Respiratory Infection (MICKEY), contact + droplet Comment:Automatically added due to negative COVID-19 result. 04/21/2020 04/21/2020 05/05/2020 3:0 6 AM DRAFTER CHIEF DESIGN COVID: Suspected 04/21/2020 04/21/2020 04/21/2020 6:48 PM DRAFTER CHIEF DESIGN COVID: Suspected 09/25/2020 09/25/2020 09/25/2020 10:11 AM CDT Rhino/Enterovirus 09/25/2020 09/25/2020 10/02/2020 3:05 AM CDT COVID: Recovered 11/29/2020 11/29/2020 03/29/2021 3:05 AM DRAFTER CHIEF DESIGN COVID: Suspected 10/09/2021 10/09/2021 10/09/2021 9:37 AM CDT COVID: Suspected 03/06/2022 03/06/2022 03/06/2022 9:30 AM DRAFTER CHIEF DESIGN RSV, droplet 03/06/2022 03/06/2022 03/13/2022 3:05 AM DRAFTER CHIEF DESIGN COVID: Suspected 06/26/2022 06/26/2022 06/26/2022 5:59 PM CDT Coronavirus, droplet 06/26/2022 06/26/2022 023 3:06 AM CDT documented as of this encounter Care Teams Product Manufacturing Professional Relationship Specialty Start Date End Date Zoila Gleason MD [address] [place] [address] PCP - General 09/29/16 Rupal Isabel MD [address] [place] [address] [facility] [address] [place] [address] Referring Physician Allergy and Immunology 01/11/19 Rekha Osborne MD [address] [place] [address] Medical Oncologist/Corporate Treasurer Hematology 05/11/20 Mayuri Lyn, RN [address] [facility] [address] [place] [address] SHOP Outpatient Framing Mechanic 12/04/20 01/04/21 Michelle Colin LCSW 77[address] [facility] ([facility]) Mailstop [phone] [place] [address] SHOP Outpatient Framing Mechanic 10/19/21 11/16/21 documented as of this encounter
[2024-05-13 17:39] LABS: Hematocrit 43.8 % (42.0-52.0); Hemoglobin 14.5 g/dL (14.0-18.0); Immature Platelet Fraction Pct 22.4 % (0.9-11.2); Mean Corpuscular HGB Conc 33.1 g/dl (32-36); Mean Corpuscular Hemoglobin 32.3 pg (26-34); Mean Corpuscular Volume 97.6 fl (80-100); Mean Platelet Volume 14.1 fl (7.4-10.4); Platelet Count Result 93 k/mm3 (150-375); Red Blood Count 4.49 M/mm3 (4.6-6.20); Red Cell Distribution Width 18.5 % (11.5-14.5); White Blood Count 15.2 K/mm3 (4.5-10.0)
[2024-05-13 18:12] LABS: Lymphocytes Absolute Manual 3.34 K/mm3 (1.1-4.5); Monocytes Percent Manual 4 % (3-9); Neutrophils Percent Manual 74 % (46-73); Total Cells Counted 100
[2024-05-13 18:13] LABS: Anisocytosis 2+; Large Platelets Present; Platelet Estimate Decreased (Adequate); Schistocytes None Seen
[2024-05-13 18:14] LABS: Free T4 Free Thyroxine 1.17 ng/dL (0.78-2.19)
[2024-05-13 18:26] LABS: Thyroid Stimulating Hormone 0.626 uIU/mL (0.465-4.680)
[2024-05-13 18:51] LABS: Total Triiodothyronine (T3) 3.27 NG/ML (0.97-1.69)
[2024-05-15 02:43] LABS: DHEA-Sulfate 431 mcg/dL (74-617)
== END 2024-05-13 17:09 | disposition home or self-care (01) ==
LOC: ANHLAB 17:09
PROVIDERS: PCP Pediatrics; Visit Provider Internal Medicine
DX: E03.9 Hypothyroidism, unspecified (principal); D69.6 Thrombocytopenia, unspecified; E27.3 Drug-induced adrenocortical insufficiency; T38.0X5A Adverse effect of glucocorticoids and synthetic analogues, initial encounter
CPT/HCPCS: 36415; 82627; 84439; 84443; 84480; 85025; 85055

== ENCOUNTER 2024-05-27 13:40 | Outpatient (CLI) | payer BC, MEDICAID, SELFPAY ==
--- OUTSIDE RECORDS SUMMARY | 2024-05-27 15:41 | XMS_ITS | Referral Summary ---
Author Organization [facility] ospital Address [address] [place] [address] Care Team Providers Care Automation Software Engineer Name Role Phone Zoila Gleason MD Primary Care Provider [phone] Rupal Isabel MD Unavailable Rekha Osborne MD Unavailable Encounters Date Type Department Care Team Description 05/24/2024 Documentation [facility] Hematology [address] [place] [id number] Rose Marie Zapata RMA Prior Auth (Doptelet Approved through 05/23/25) 05/24/2024 Documentation [facility] Hematology [address] [place] [address] 6 [place] [phone] Saniya Alberts RN 05/13/2024 2:40 PM UX INTERACTION DESIGNER Office Visit [facility] Endocrinology Metabolism and Lipid [address] [facility] Advanced Medicine 5th [place] [address] [place] [address] Jesenia Cottrell MD Adrenal insufficiency (HCC) (Primary Dx); Arpita's syndrome (CMS/HCC) (HCC); Low bone density for age; Hypogonadism in male; Vitamin D deficiency 04/25/2024 11:30 AM UX INTERACTION DESIGNER Lab [facility] at [address] [phone] AIHA (autoimmune hemolytic anemia) (HCC); Chronic ITP (idiopathic thrombocytopenia) (HCC) 04/25/2024 8:30 AM UX INTERACTION DESIGNER Lab [facility] Oncology [address] [place] [address] [address] [place] [address] 04/25/2024 9:00 AM UX INTERACTION DESIGNER Office Visit [facility] Hematology [address] [facility] Medical Office Building 2 [address] [place] [address] Rekha Osborne MD AIHA (autoimmune hemolytic anemia) (HCC) (Primary Dx); Chronic ITP (idiopathic thrombocytopenia) (HCC); CVID (common variable immunodeficiency) (HCC); High risk medication use 04/11/2024 Orders Only [facility] Hematology [address] [facility] Floor 6 [place] [address] Saniya Alberts, RN 04/09/[address] Advanced Medicine 5th [place] [address] [place] [address] Kobi Og MD 04/01/2024 Telephone [facility] Hematology [facility] [facility] Floor 6 [place] [phone] Saniya Alberts, ZOFIA 03/19/[address] Medical Office Building 2 [address] [place] [address] Kobi Og MD 03/12/2024 3:40 PM UX INTERACTION DESIGNER - 03/12/2024 11:59 PM UX INTERACTION DESIGNER Hospital Encounter [facility]) [address] [place] [address] Osteoporosis without current pathological fracture, unspecified osteoporosis type Discharge Disposition: Discharge to home or self care 03/12/2024 6:15 PM UX INTERACTION DESIGNER Lab [facility] ([facility]) [address] [place] [address] Osteoporosis without current pathological fracture, unspecified osteoporosis type 03/12/2024 2:34 PM UX INTERACTION DESIGNER - 03/12/2024 11:59 PM UX INTERACTION DESIGNER Hospital Encounter [facility] ([facility]) [address] [place] [address] Mild persistent asthma without complication Discharge Disposition: Discharge to home or self care 03/12/2024 2:30 PM UX INTERACTION DESIGNER Office Visit [facility] Pulmonary [address] [facility] 8th [place] [address] [place] [address] Jam Sands MD Mild persistent asthma without complication (Primary Dx); 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 before breakfast Active Solu-CORTEF Act-O-Vial, PF, 100 [...] PLEASE SEE ATTACHED FOR DETAILED DIRECTIONS Active Atrovent HFA 17 mcg/actuation inhaler Active testosterone 20.25 mg/1.25 gram (1.62 %) gel in metered-dose pump Place 20.25 mg on the skin daily 225 g 025 2024 Active avatrombopag (DOPTELET) 20 mg tabletIndication s:Chronic ITP (idiopathic thrombocytopenia ) (HCC) Take 1 tablet (20 mg total) by mouth daily Administer with food 90 tablet 3 Active Breztri Aerosphere 160-9-4.8 mcg/actuation inhaler Inhale 1 puff 2 (two) times a day 024 2024 Discontinued prasterone, dhea, 25 mg capsule Take 1 capsule (25 mg total) by mouth daily with breakfast 2024 Discontinued( Alternate therapy) avatrombopag (DOPTELET) 20 mg tablet 2 tablets (40 mg total) daily Administer with food 2024 Discontinued( Therapy completed) avatrombopag (DOPTELET) 20 mg tabletIndication s:Chronic ITP (idiopathic thrombocytopenia ) (HCC) Take 1 tablet (20 mg total) by mouth daily Administer with food 90 tablet 3 025 2024 Discontinued( Reorder) avatrombopag (DOPTELET) 20 mg tabletIndication s:Chronic ITP (idiopathic thrombocytopenia ) (HCC) Take 1 tablet (20 mg total) by mouth daily Administer with food 90 tablet 3 025 2024 Discontinued( Reorder) Active Problems Problem Noted Date Diagnosed Date [...] stooling. -As of 12/18/23 at 1300, per [facility] [phone] - E. Coli. -Repeat blood cultures NGTD -Received cefepime; changed to cefuroxime to complete a 7 day course. Source is suspected to be UTI -TTE neg for vegetations Leukocytosis 12/17/2023 Assessment & Plan (12/17/2023 8:50 PM CDT): CBC at [facility] 12/15 WBC 20.5 (81% neutrophils). 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 Hgb now [...] -advance diet as per gastroenterology Neutropenic fever ([facility]/HCC) 09/25/2020 Idiopathic thrombocytopenic purpura (ITP) ([facility]/H CC) 07/09/2020 Assessment & Plan (12/01/2020 2:02 [...] cytopenia, his initial presentation for thrombocytopenia to [facility] was in 2012 (17 yo) with [...] responded to steroid and rituximab last time ([id number]). During his last admission for UTI, he [...] bid - received stress dose steroids at [facility] - continue pred 5 BID - per [...] an anti-21 hydroxylase antibody to rule out Houghton's as well as a low dose ACTH stim test at some point after 72 hours from last stress dose. He is very well appearing and does not have an indication for stress dosing at this time. - send anti-21 hydroxylase antibody (red top 2 ml) 2107 to [place] - consider ACTH stim test this admission [...] obtain anti-21 hydroxylase Ab to rule out Houghton's disease. Assessment & Plan (12/29/2019 8:18 AM [...] 2-3 weeks as an outpatient. - Continue Moris Garibayvyn and Mepelex - bacitracin ointment to R hip. Assessment & Plan (11/09/2019 11:31 AM CDT): Patient has a coccygeal ulcer as well as pressure injuries in the b/l trochanteric areas. [facility] saw the patient on 11/07 and recommended f/u in 1 week if still IP or in 2-3 weeks as an outpatient. - Continue Moris Garibayvyn and Mepelex - recommended bacitracin ointment to R hip. Assessment & Plan (11/08/2019 6:54 PM CDT): Patient has a coccygeal ulcer as well as pressure injuries in the b/l trochanteric areas. [facility] saw the patient on 11/07 and recommended f/u in 1 week if still IP or in 2-3 weeks as an outpatient. - Continue Phoenix, Morisvyn and Mepelex - recommended bacitracin ointment to R hip. Assessment & Plan (11/07/2019 8:40 PM CDT): Patient has a coccygeal ulcer as well as pressure injuries in the b/l trochanteric areas. - Continue Moris Garibayvedgard and Mepelex - [facility] is following, will see patient on 11/07. CVID (common variable immunodeficiency) ([facility] ) 04/16/2018 Assessment & Plan (12/19/2023 1:52 [...] and platelets (105) are all increased from 11/05. Per immunology, will need to continue having [...] AM CDT): Stable. Followed by endocrinology at [facility]. Currently on 150 mcg levothyroxine daily. [...] Avoid concomitant administration of Levothyroxine with patient's PIERCER iron. Separate dosing by at least 4 hours. Pediatric Endocrinology will continue to follow. 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 Never 10/11/2021 Do you belong to any clubs o r organizations such as scientologist groups, unions, fraternal or athletic groups, or [...] in a fdc (including now)? No 10/11/2021 Personal Safety Answer Date Recorded Have you ever been in or are you currently in a harmful physical or emotional relationship or is someone making you feel afraid or unsafe? Patient unable to answer 12/18/2023 Sex and Gender Information Value Date Recorded Sex Assigned at Not on file Legal Sex Male 1:53 AM UX INTERACTION DESIGNER Gender Identity Male 10/02/2023 12:44 PM CDT Sexual Orientation Don't know 11/15/2020 1: 06 PM CDT Last Filed Vital Signs Vital Sign Reading Time Taken Comments Blood Pressure 117/79 05/13/2024 2:31 PM UX INTERACTION DESIGNER Pulse 90 05/13/2024 2:31 PM UX INTERACTION DESIGNER Temperature 36.9 C (98.5 F) 05/13/2024 2:31 PM UX INTERACTION DESIGNER Respiratory Rate 18 03/12/2024 2:48 PM UX INTERACTION DESIGNER Oxygen Saturation 96% 03/12/2024 2:48 PM UX INTERACTION DESIGNER Inhaled Oxygen Concentration - - Weight 60.8 kg (134 lb) 05/13/2024 2:31 PM UX INTERACTION DESIGNER Height 160 cm (5' 3 ) 05/13/2024 2:31 PM UX INTERACTION DESIGNER Body Mass Index 23.74 05/13/2024 2:31 PM UX INTERACTION DESIGNER Plan of Treatment Not on file Procedures Procedure Name Priority Date/Time Associated Diagnosis Comments EGFR Routine 04/25/2024 10:00 AM UX INTERACTION DESIGNER AIHA (autoimmune hemolytic anemia) (HCC) Chronic ITP (idiopathic thrombocytopenia) (HCC) DIFFERENTIAL AUTO Routine 04/25/2024 10: 00 AM UX INTERACTION DESIGNER AIHA (autoimmune hemolytic anemia) (HCC) Chronic ITP (idiopathic thrombocytopenia) (HCC) CBC WITH AUTO DIFFERENTIAL Routine 04/25/2024 10:00 AM UX INTERACTION DESIGNER AIHA (autoimmune hemolytic anemia) (HCC) Chronic ITP (idiopathic thrombocytopenia) (HCC) COMPREHENSIVE METABOLIC PANEL Routine 04/25/2024 10:00 AM UX INTERACTION DESIGNER AIHA (autoimmune hemolytic anemia) (HCC) Chronic ITP (idiopathic thrombocytopenia) (HCC) RETICULOCYTES Routine 04/25/2024 10:00 AM UX INTERACTION DESIGNER AIHA (autoimmune hemolytic anemia) (HCC) Chronic ITP (idiopathic thrombocytopenia) (HCC) HAPTOGLOBIN Routine 04/25/2024 10:00 AM UX INTERACTION DESIGNER AIHA (autoimmune hemolytic anemia) (HCC) Chronic ITP (idiopathic thrombocytopenia) (HCC) LACTATE DEHYDROGENASE Routine 04/25/2024 10:00 AM UX INTERACTION DESIGNER AIHA (autoimmune hemolytic anemia) (HCC) Chronic ITP (idiopathic thrombocytopenia) (HCC) DIRECT ANTIGLOBULIN TEST Routine 04/25/2024 10:00 AM UX INTERACTION DESIGNER AIHA (autoimmune hemolytic anemia) (HCC) Chronic ITP (idiopathic thrombocytopenia) (HCC) XR SCOLIOSIS AP LAT Schedule Routine, Read Routine (OP Routine) 03/12/2024 4:00 PM UX INTERACTION DESIGNER Osteoporosis without current pathological fracture, unspecified osteoporosis type EGFR Routine 03/12/2024 3:34 PM UX INTERACTION DESIGNER Osteoporosis without current pathological fracture, unspecified osteoporosis type BETA-CROSSLAPS (BETA-CTX) Routine 03/12/2024 3:34 PM UX INTERACTION DESIGNER Osteoporosis without current pathological fracture, unspecified osteoporosis type COMPREHENSIVE METABOLIC PANEL Routine 03/12/2024 3:34 PM UX INTERACTION DESIGNER Osteoporosis without current pathological fracture, unspecified osteoporosis type PTH Routine 03/12/2024 3:34 PM UX INTERACTION DESIGNER Osteoporosis without current pathological fracture, unspecified osteoporosis type PHOSPHORUS Routine 03/12/2024 3:34 PM UX INTERACTION DESIGNER Osteoporosis without current pathological fracture, unspecified osteoporosis type OSTEOCALCIN Routine 03/12/2024 3:34 PM UX INTERACTION DESIGNER Osteoporosis without current pathological fracture, unspecified osteoporosis type ALKALINE PHOSPHATASE, BONE SPECIFIC Routine 03/12/2024 3:34 PM UX INTERACTION DESIGNER Osteoporosis without current pathological fracture, unspecified osteoporosis type GAMMA GT Routine 03/12/2024 3:34 PM UX INTERACTION DESIGNER Osteoporosis without current pathological fracture, unspecified osteoporosis type XR CHEST PA LATERAL 2 VIEWS Schedule Routine, Read Routine (OP Routine) 03/12/2024 2:41 PM UX INTERACTION DESIGNER Mild persistent asthma without complication HEPATITIS PANEL, ACUTE Routine 11/28/2020 5:33 PM CDT from Last 3 Months or Most Recently Relevant to Health Maintenance Results * eGFR (04/25/2024 10:00 AM UX INTERACTION DESIGNER) eGFR >90 >=60 mL/min/1. 73 m2 Comment: [...] was last reviewed 2021. Testing performed by: [facility], [address] [place] [address] Blood 04/25/2024 10:0 0 AM UX INTERACTION DESIGNER 04/25/2024 10:16 AM UX INTERACTION DESIGNER us Rekha Osborne MD LAB BLOOD ORDERABLES Final Result [facility] [address] [facility]. Department of Laboratories [place], [place] [id number] * (ABNORMAL) Differential, auto (04/25/2024 10:00 AM UX INTERACTION DESIGNER) Neutrophil abs 8.6(H) 1.5 - 6.5 K/cumm Comment:Testing performed by : [facility] 2, [address] [place] [address] Imm gran abs 0.5(H) 0.0 - 0.1 K/cumm CERNER BJW[facility] Comment:Testing performed by : [place] [address], [address] [place] [address] Lymphocyte abs 2.3 0.8 - 3.3 K/cumm CERNER [facility] Comment:Testing performed by : [place] [address], [address] [place] [address] Monocyte abs 1.4(H) 0.2 - 0.8 K/cumm CERNER [facility] Comment:Testing performed by : [place] [address], [address] [place] [address] Eosinophil abs 0.1 0.0 - 0.5 K/cumm CERNER [facility] Comment:Testing performed by : [place] [address], [address] [place] [address] Basophil abs 0.2(H) 0.0 - 0.1 K/cumm CERNER [facility] Comment:Testing performed by : [facility] 2, [address] [place] [address] Neutrophil pct 65.5 % CERNER [facility] Comment: Interpretive Data Percent cell count reference ranges are not reported, since discordance with absolute values may lead to misinterpretation of CBC data. Current Interpretive Data was last revised on 2017. Testing performed by: [facility] 2, [address] [place] [address] Imm gran pct 4.0 % [facility] Comment: Interpretive Data Percent cell count reference ranges are not reported, since discordance with absolute values may lead to misinterpretation of CBC data. Current Interpretive Data was last revised on 2017. Testing performed by: [facility], [facility], [address] [place] [address] Lymphocyte pct 17.2 % PAULA CAMPOS Comment: Interpretive Data Percent cell count reference ranges are not reported, since discordance with absolute values may lead to misinterpretation of CBC data. Current Interpretive Data was last revised on 2017. Testing performed by: [facility], [facility] 2, [address] [place] [address] Monocyte pct 10.9 % PAULA CAMPOS Comment: Interpretive Data Percent cell count reference ranges are not reported, since discordance with absolute values may lead to misinterpretation of CBC data. Current Interpretive Data was last revised on 2017. Testing performed by: [facility], [facility] 2, [address] [place] [address] Eosinophil pct 0.7 % PAULA MERAZLEE Comment: Interpretive Data Percent cell count reference ranges are not reported, since discordance with absolute values may lead to misinterpretation of CBC data. Current Interpretive Data was last revised on 2017. Testing performed by: [facility], [facility], [address] [place] [address] Basophil pct 1.7 % PAULA CAMPOS Comment: Interpretive Data Percent cell count reference ranges are not reported, since discordance with absolute values may lead to misinterpretation of CBC data. Current Interpretive Data was last revised on 2017. Testing performed by: [facility], [facility] 2, [address] [place] [address] Blood 04/25/2024 10:0 0 AM UX INTERACTION DESIGNER 04/25/2024 10:05 AM UX INTERACTION DESIGNER us Rekha Osborne MD LAB BLOOD ORDERABLES Final Result [facility] [address] [facility] Department [place] [address] * (ABNORMAL) CBC with auto differential (04/25/2024 10:00 AM UX INTERACTION DESIGNER) WBC 13.1(H) 3.8 - 9.9 K/cumm Comment:Testing performed by : [place] [address], [place] [address] Hgb 15.1 13.0 - 17.5 g/dL PAULA CARIASCH Comment:Testing performed by : [place] [address] [place] [address] Hct 45.6 38.9 - 50.3 % PAULA CAMPOS Comment:Testing performed by : [place] [address] [place] [address] Plt 201 150 - 400 K/cumm PAULA CARIASCH Comment:Testing performed by : [place] [address], [address] [place] [address] MPV 12.4(H) 9.1 - 12.3 fL PAULA CAMPOS Comment:Testing performed by : [address] [place] [address] RBC 4.78 4.30 - 5.80 M/cumm PAULA CAMPOS Comment:Testing performed by : [place] [address] [place] [address] MCV 95 81 - 96 fL PAULA MERAZWCH Comment:Testing performed by : [place] [address], [address] [place] [address] MCH 31.6 27.1 - 33.3 pg PAULA CARIASCH Comment:Testing performed by : [place] [address], [address] [place] [address] MCHC 33.1 32.3 - 35.7 g/dL PAULA CARIASCH Comment:Testing performed by : [place] [address], [address] [place] [address] RDW CV 16.8(H) 11.1 - 14.9 % PAULA CAMPOS Comment:Testing performed by : [facility] 2, [address] [place] [address] RDW SD 58.8(H) 35.7 - 48.1 fL PAULA CAMPOS Comment:Testing performed by : [place] [address], [address] [place] [address] NRBC abs 0.03(H) 0.00 - 0.01 K/cumm PAULA CAMPOS Comment:Testing performed by : [place] [address] [place] [address] Blood 04/25/2024 10:0 0 AM UX INTERACTION DESIGNER 04/25/2024 10:05 AM UX INTERACTION DESIGNER Rekha Osborne MD LAB BLOOD ORDERABLES Final Result [facility] [address] [facility] Department of Laboratories [place] [phone] * (ABNORMAL) Reticulocyte Count (04/25/2024 10:00 AM UX INTERACTION DESIGNER) Retics, absolute 0.104(H) 0.020 - 0.087 M/cumm Comment:Testing performed by : [place] [address], [address] [place] [address] Retics 2.2 0.4 - 2.9 % PAULA CAMPOS Comment:Testing performed by : [place] [address], [place] [address] Reticulocyte Hgb 32.9 30.5 - 38.0 pg PAULA CAMPOS Comment:Testing performed by : [place] [address], [address] [place] [address] Blood 04/25/2024 10:0 0 AM UX INTERACTION DESIGNER 04/25/2024 10:05 AM UX INTERACTION DESIGNER Rekha Osborne MD LAB BLOOD ORDERABLES Final Result Performing Organization Address [facility] Co de Phone Number PAULA MERAZWCH [phone] [address] [facility] [place] [address] * Direct antiglobulin test (04/25/2024 10:00 AM UX INTERACTION DESIGNER) HUMZA Poly Interp Negative Comment:Testing performed by : [facility], [address] [facility], [place] [address] Blood 04/25/2024 10:0 0 AM UX INTERACTION DESIGNER 04/25/2024 10:16 AM UX INTERACTION DESIGNER Rekha Osborne MD LAB BLOOD BANK TEST ORDERAB LES Final Result Performing Organization Address [facility] de Phone Number PAULA [facility] [address] [facility] [place] [address] * Lactate dehydrogenase (LD) (04/25/2024 10:00 AM UX INTERACTION DESIGNER) Lactate dehydrogenase (LDH) 139 100 - 250 Units/L Comment:Testing performed by : [facility], [address] [facility], [place] [address] Blood 04/25/2024 10:0 0 AM UX INTERACTION DESIGNER 04/25/2024 10:16 AM UX INTERACTION DESIGNER Rekha Osborne MD LAB BLOOD ORDERABLES Edited Result - Final Performing Organization Address [facility] Co de Phone Number GILMERNER B[facility] [address] [address] [facility] [place] [address] * (ABNORMAL) Haptoglobin (04/25/2024 10:00 AM UX INTERACTION DESIGNER) Haptoglobin 221(H) 30 - 200 mg/dL Comment:Testing performed by : [facility], [facility][note 2]5 [facility], [place]., [address] Blood 04/25/2024 10:0 0 AM UX INTERACTION DESIGNER 04/25/2024 1:35 PM UX INTERACTION DESIGNER us Rekha Osborne MD LAB BLOOD ORDERABLES Final Result [facility] [address] Department [place] [address] * Comprehensive metabolic panel (04/25/2024 10:00 AM UX INTERACTION DESIGNER) Sodium 139 135 - 145 mmol/L Comment:Testing performed by : [facility], [address], [place] [address] Potassium, pl 4.1 3.3 - 4.9 mmol/L CERARTHUR MERAZWCH Comment:Testing performed by : [facility], [address], [place] [address] Chloride 103 97 - 110 mmol/L CERARTHUR B[facility]WCH Comment:Testing performed by : [facility], [address], [place] [address] CO2 26 22 - 32 mmol/L CERARTHUR B[facility]WCH Comment:Testing performed by : [facility], [address], [place] [address] Anion gap 10 2 - 15 mmol/L CERARTHUR B[facility] Comment:Testing performed by : [facility], [address], [place] [address] BUN 15 6 - 25 mg/dL CERARTHUR [facility] Comment:Testing performed by : [facility], [address], [place] [address] Creatinine 0.80 0.80 - 1.30 mg/dL CERARTHUR B[facility] Comment:Testing performed by : [facility], [address], [place] [address] Glucose 98 70 - 199 mg/dL CERARTHUR B[facility] Comment: Interpretive Data Fasting glucose >/= [...] was last revised 2022. Testing performed by: [facility], [address], [place] [address] Calcium 9.3 8.5 - 10.3 mg/dL CERNER [facility] Comment:Testing performed by : [facility], [address], [place] [address] Bilirubin, total 0.2 0.1 - 1.2 mg/dL CERNER [facility] Comment:Testing performed by : [facility], [address], [place] [address] Protein, pl 6.8 6.5 - 8.5 g/dL CERNER [facility] Comment:Testing performed by : [facility], [address], [place] [address] Albumin 3.7 3.5 - 5.0 g/dL CERNER [facility] Comment:Testing performed by : [facility], [address], [place] [address] Alk phos 122 40 - 130 Units/L CERNER [facility] Comment:Testing performed by : [facility], [address], [place] [address] ALT 29 7 - 55 Units/L CERNER [facility] Comment:Testing performed by : [facility], [address] [address] [place] [address] AST 23 10 - 50 Units/L [facility] Comment:Testing performed by : [facility], [address], [place] [address] Blood 04/25/2024 10:0 0 AM UX INTERACTION DESIGNER 04/25/2024 10:16 AM UX INTERACTION DESIGNER us Rekha Osborne MD LAB BLOOD ORDERABLES Edited Result - Final PAULA CARIAS [address] [facility]. [place] [address] * XR Scoliosis 2 or 3 Views (03/12/2024 4:00 PM UX INTERACTION DESIGNER) Anatomical Region Laterality Modality Spine N/A Computed Radiogr aphy 03/12/2024 4:28 PM UX INTERACTION DESIGNER Impressions 03/12/2024 4:28 PM UX INTERACTION DESIGNER No compression deformities of the spine. Electronically signed by: Inderjit Valle D.O. Narrative 03/12/2024 4:28 PM UX INTERACTION DESIGNER EXAMINATION: XR SCOLIOSIS AP AND LATERAL HISTORY: [...] Final Result * eGFR (03/12/2024 3:34 PM UX INTERACTION DESIGNER) eGFR >90 >=60 mL/min/1. 73 m2 Comment: [...] last reviewed 2021. Blood 03/12/2024 3:34 PM UX INTERACTION DESIGNER 03/12/2024 4:13 PM UX INTERACTION DESIGNER Rick Fabian MD LAB BLOOD ORDERABLES Final Resul t Performing Organization Address [facility] Co de Phone Number [facility] [place] [address] * Beta-CrossLaps (Beta-CTx) (03/12/2024 3:34 PM UX INTERACTION DESIGNER) Pathologist [facility] Beta-CTx 455 pg/mL Comment: Interpretive Data Female: Premenopausal: 136 - 689 pg/mL Postmenopausal: 177 - 1015 pg/mL Male: 30 - 50 years: 131 - 670 pg/mL 51 - 70 years: 171 - 1060 pg/mL > 70 years: 152 - 858 pg/mL Current interpretive data was last revised on 2023. Blood 03/12/2024 3:34 PM UX INTERACTION DESIGNER 03/12/2024 4:10 PM UX INTERACTION DESIGNER Rick Fabian MD LAB BLOOD ORDERABLES Final Resul t Performing Organization Address City/[facility] Co de Phone Number [facility] [place] [address] * Alkaline phosphatase, bone specific (03/12/2024 3:34 PM UX INTERACTION DESIGNER) Alk phos, bone 13 0 - 20 mcg/L [place] [facility] Comment: ADDITIONAL INFORMATION Liver-derived alkaline phosphatase (ALP) increases apparent measured bone alkaline phosphatase (BAP) in this assay by 2.5 mcg/L to 5.8 mcg/L for every 100 U/L of liver ALP. Accordingly, serum specimens with significant elevations of liver ALP activity may yield artificially elevated results in the BAP assay. Test Performed by: [facility] [address] [place] [address] Bag Cutter: Imelda Perez Ph.D.; CLIA# [id number] Blood 03/12/2024 3:34 PM UX INTERACTION DESIGNER 03/12/2024 5:05 PM UX INTERACTION DESIGNER Rick Fabian MD LAB BLOOD ORDERABLES Final Resul t Performing Organization Address City/[facility] Co de Phone Number [facility] [address] [facility] [facility] * Osteocalcin (03/12/2024 3:34 PM UX INTERACTION DESIGNER) Osteocalcin See Comment Comment: Credited; Hemolyzed Specimen Interpretive Data Female: Premenopausal: 7.6 - 35.1 ng/mL Postmenopausal: 7.3 - 38.5 ng/mL Male: 30 - 50 years: 8.4 - 36.7 ng/mL > 50 years: 9.9 - 35.6 ng/mL Current interpretive data was last revised on 2021. Blood 03/12/2024 3:34 PM UX INTERACTION DESIGNER 03/12/2024 4:10 PM UX INTERACTION DESIGNER Rick Fabian MD LAB BLOOD ORDERABLES Final Resul t PAULA AZAR [facility] [place] [address] * Phosphorus (03/12/2024 3:34 PM UX INTERACTION DESIGNER) Phosphorus, pl 4.1 2.3 - 4.5 mg/dL Blood 03/12/2024 3:34 PM UX INTERACTION DESIGNER 03/12/2024 4:10 PM UX INTERACTION DESIGNER us Rick Fabian MD LAB BLOOD ORDERABLES Final Resul t Performing Organization Address [facility] [place] [address] * PTH (03/12/2024 3:34 PM UX INTERACTION DESIGNER) Pathologist [facility] PTH 29 15 - 65 pg/mL Blood 03/12/2024 3:34 PM UX INTERACTION DESIGNER 03/12/2024 4:10 PM UX INTERACTION DESIGNER us Rick Fabian MD LAB BLOOD ORDERABLES Final Resul t Performing Organization Address [facility] de Phone Number [facility] [address] * Gamma GT (03/12/2024 3:34 PM UX INTERACTION DESIGNER) [facility] GGT 44 10 - 50 Units/L Blood 03/12/2024 3:34 PM UX INTERACTION DESIGNER 03/12/2024 4:10 PM UX INTERACTION DESIGNER us Rick Fabian MD LAB BLOOD ORDERABLES Final Resul t Performing Organization Address [facility] Phone Number [facility] [place] [address] * (ABNORMAL) Comprehensive metabolic panel (03/12/2024 3:34 PM UX INTERACTION DESIGNER) [facility] Sodium 138 135 - 145 mmol/L Potassium, pl 4.5 3.3 - 4.9 mmol/L [facility] Chloride 103 97 - 110 mmol/L [facility] CO2 26 22 - 32 mmol/L [facility] Anion gap 9 2 - 15 mmol/L [facility] BUN 16 6 - 25 mg/dL [facility] Creatinine 0.97 0.80 - 1.30 mg/dL [facility] Glucose 114 70 - 199 mg/dL [facility] Comment: Interpretive Data Fasting glucose >/= 126 [...] 2022. Calcium 9.1 8.5 - 10.3 mg/dL [facility] Bilirubin, total 0.2 0.1 - 1.2 mg/dL [facility] Protein, pl 6.9 6.5 - 8.5 g/dL [facility] Albumin 3.4(L) 3.5 - 5.0 g/dL [facility] Alk phos 110 40 - 130 Units/L [facility] ALT 28 7 - 55 Units/L [facility] AST 32 10 - 50 Units/L [facility] Blood 03/12/2024 3:34 PM UX INTERACTION DESIGNER 03/12/2024 4:10 PM UX INTERACTION DESIGNER us Rick Fabian MD LAB BLOOD ORDERABLES Final Resul t [facility] Department [place] [address] * X-ray chest 2 views (03/12/2024 2:41 PM UX INTERACTION DESIGNER) Anatomical Region Laterality Modality Body, Chest N/A Computed Radiogr aphy 03/12/2024 3:17 PM UX INTERACTION DESIGNER Impressions 03/12/2024 3:17 PM UX INTERACTION DESIGNER Comparison 12/17/2023. Heart size normal. Pediatric median sternotomy wires noted. No pneumothorax or pleural effusion. Clear lungs. Electronically signed by: Cyril Gilbert M.D. Narrative 03/12/2024 3:17 PM UX INTERACTION DESIGNER EXAMINATION: 2 view chest radiograph Procedure Note Cyril Gilbert MD - 03/12/2024 EXAMINATION: 2 view chest radiograph IMPRESSION: Comparison 12/17/2023. Heart size normal. Pediatric median sternotomy wires noted. No pneumothorax or pleural effusion. Clear lungs. Electronically signed by: Cyril Gilbert M.D. Jam Sands MD IMG XR PROCEDURES Fi nal Result * Hepatitis panel, acute (11/28/2020 5:33 PM CDT) Hep A IgM Nonreactive Nonreactive [facility] Comment: Interpretive Data: If Hep A IgM Ab is reported as Equivocal, a new sample should be drawn in two weeks for testing. Current interpretive data was last revised on 19. Hep B core IgM Nonreactive Nonreactive [facility] Comment: Interpretive Data If HepB Core IgM Ab is reported as Equivocal, a new sample should be drawn in two weeks for testing. Current interpretive data was last revised on 19. Hep C Ab Nonreactive Nonreactive [facility] Comment:Antibodies to HCV no t detected. Does NOT exclude the possibility of recent exposure to HCV. HepBsAg Nonreactive Nonreactive [facility] Blood 11/28/2020 5:33 PM CDT 11/28/2020 5:53 PM CDT Jazzmine Mccartney NP LAB MICROBIO LOGY - GENERAL ORDERABLES Edited Result - Final [facility] Department [place] [address] from Last 3 Months or Most Recently Relevant to Health Maintenance Insurance [place] [facility] CHOICE PLUS [employer] [place] ACC[place] P[place] [facility] CHOICE PLUS [employer] OPEN ACCESS IDPA [facility] [place]PO [place] [employer] [place] ACCESS [facility] CHOICE PLUS Advance Directives For more information, please contact: [phone] Documents on File Type Date Recorded 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
--- OUTSIDE RECORDS SUMMARY | 2024-05-27 15:41 | XMS_ITS | Clinical Summary ---
Author Organization [facility] Address [address] [place] [address] Care Team Providers Care Coremaker Experimental Name Role Phone Unavailable Primary Care Provider [...] WEEKS. 24 Packet 1 03/02/2023 2:48 PM MINERAL INDUSTRY TEACHER 3 Active clindamycin phosphate (CLEOCIN T) 1 [...] procedure 4 Capsule 1 03/02/2023 2:45 PM MINERAL INDUSTRY TEACHER 3 Active docusate sodium (COLACE) 100 mg capsule Take one capsule (100 mg) orally twice a day 60 Capsule 3 03/14/2023 12:03 PM MINERAL INDUSTRY TEACHER 3 Active levothyroxine 112 mcg tablet Take one tablet (112 mcg) orally every morning 90 Tablet 2 03/14/2023 12:03 PM MINERAL INDUSTRY TEACHER 3 Active pantoprazole (PROTONIX) 40 mg Tablet, Delayed Release (E.C.) Take one tablet (40 mg) orally daily 60 Tablet 03/14/2023 12:03 PM MINERAL INDUSTRY TEACHER 3 Active sertraline (ZOLOFT) 100 mg tablet Take one tablet (50 mg) orally daily 90 Tablet 3 3 Active hydrocortisone sod succ, PF, (Solu-CORTEF Act-O-Vial, PF,) 100 mg/2 mL Recon Soln Inject 2 mL (100 mg) by intramuscular injection 1 time daily as needed for adrenal crisis. 10 Each 2 04/17/2023 6:40 PM MINERAL INDUSTRY TEACHER 4 Active apixaban (Eliquis) 5 mg tablet Take 1 Tablet (5 mg) by mouth 2 times daily. 30 Tablet 1 04/08/2023 4:00 PM MINERAL INDUSTRY TEACHER 4 Active nirmatrelvir-r itonavir (Paxlovid) 300(150mg x 2)-100 mg oral pack TAKE 2 TABLETS OF NIRMATRELVIR AND 1 TABLET OF RITONAVIR BY MOUTH TWICE DAILY FOR 5 DAYS 30 Each 4 Active predniSONE (DELTASONE) 1 mg tablet TAKE 1-4 TABLETS BY MOUTH DAILY DIRECTED BY PHYSICIAN. TAKE WITH 5 MG DAILY. 120 Tablet 2 04/25/2023 2:35 PM MINERAL INDUSTRY TEACHER 4 Active nirmatrelvir-r itonavir (Paxlovid) 300(150mg x [...] failure. 90 Tablet 2 04/25/2023 2:35 PM MINERAL INDUSTRY TEACHER 4 Active Immunizations Immunization Administration Dates Next [...]
--- OUTSIDE RECORDS SUMMARY | 2024-05-27 15:41 | XMS_ITS | Encounter Summary ---
Author Organization [facility] Address [address] [place] [address] Phone Care Team Providers Care Pediatric Anesthesiologist Name Role Phone Zoila Gleason MD Primary Care Provider [phone] Rupal Isabel MD Unavailable [phone] Rekha Osborne MD Unavailable [phone] Encounter Details Date Type Department Care Team [...] often do you attend chur ch or mu-ism services? Never 10/11/2021 Do you belong to any clubs o r organizations such as gnosticist groups, unions, fraternal or athletic groups, or [...] place to sleep or slept in a care home (including now)? No 10/11/2021 Sex and Gender Information Value Date Recorded Sex Assigned at Not on file Legal Sex Male 1:53 AM CONCRETE ENGINEER Gender Identity Male 10/02/2023 12:44 PM CDT [...] documented as of this encounter Care Teams Pediatric Anesthesiologist Relationship Specialty Start Date End Date Zoila Gleason MD [address] [place] [address] PCP - General 09/29/16 Rupal Isabel MD [address] [facility] [address] [place] [address] Referring Physician Allergy and Immunology 01/11/19 Rekha Osborne MD [address] [place] [address] Medical Oncologist/Packager And Strapper Hematology 05/11/20 documented as of this encounter
--- OUTSIDE RECORDS SUMMARY | 2024-05-27 15:41 | XMS_ITS | Clinical Summary ---
Author Organization [facility] ospital Address [address] [place] [address] Care Team Providers Care Cuff Maker Name Role Phone Zoila Gleason MD Primary Care Provider [phone] Rupal Isabel MD Unavailable Rekha Osborne MD Unavailable [phone] Allergies Active Allergy Reactions Criticality Noted Date [...] anaphylaxis Never used. 021 Active OptiChamber Anju [facility] spacer USE WITH INHALER DIRECTED [...] 1 tablet (112 mcg total) by mouth poultry tender before breakfast Active Solu-CORTEF Act-O-Vial, PF, 100 [...] stooling. -As of 12/18/23 at 1300, per [facility] [phone] - E. Coli. -Repeat blood cultures NGTD -Received cefepime; changed to cefuroxime to complete a 7 day course. Source is suspected to be UTI -TTE neg for vegetations Leukocytosis 12/17/2023 Assessment & Plan (12/17/2023 8:50 PM CDT): CBC at [facility] 12/15 WBC 20.5 (81% neutrophils). Ddx includes [...] (12/01/2020): Added automatically from request for surgery [id number] Anemia 11/28/2020 Assessment & Plan (12/03/2020 11:37 AM CDT): Hgb 4.8 [employer] and s/p 4U pRBCs total. Hgb now [...] -advance diet as per gastroenterology Neutropenic fever ([facility]/HCC) 09/25/2020 Idiopathic thrombocytopenic purpura (ITP) ([facility]/H CC) 07/09/2020 Assessment & Plan (12/01/2020 2:02 [...] cytopenia, his initial presentation for thrombocytopenia to [facility] was in 2012 (17 yo) with petechiae [...] responded to steroid and rituximab last time ([id number]). During his last admission for UTI, he [...] bid - received stress dose steroids at [facility] - continue pred 5 BID - per [...] an anti-21 hydroxylase antibody to rule out [place]'s as well as a low dose ACTH stim test at some point after 72 hours from last stress dose. He is very well appearing and does not have an indication for stress dosing at this time. - send anti-21 hydroxylase antibody (red top 2 ml) 2107 to [place] - consider ACTH stim test this admission [...] obtain anti-21 hydroxylase Ab to rule out [place]'s disease. Assessment & Plan (12/29/2019 8:18 AM [...] patient on 11/07. CVID (common variable immunodeficiency) ([facility] ) 04/16/2018 Assessment & Plan (12/19/2023 [...] AM CDT): Stable. Followed by endocrinology at [facility]. Currently on 150 mcg levothyroxine daily. - [...] Avoid concomitant administration of Levothyroxine with patient's [employer] iron. Separate dosing by at least 4 hours. Pediatric Endocrinology will continue to follow. 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 - Continue Lovenox 40mg subQ daily (86 - ) - Per heme, can consider [...] Type Department Care Team Description 05/24/2024 Documentation [facility] Hematology [facility] Floor [address] [place] [address] Rose Marie Zapata RMA Prior Auth (Doptelet Approved through 05/23/25) 05/24/2024 Documentation [facility] Hematology [facility] Floor [address] [place] [address] Saniya Alberts RN 05/13/2024 2:40 PM ROLLOFF DRIVER Office Visit [facility] Endocrinology Metabolism and Lipid [address] [facility] Advanced Medicine 5th [place] [address] [place] [address] Jesenia Cottrell MD Adrenal insufficiency (HCC) (Primary Dx); Arpita's syndrome (CMS/HCC) (HCC); Low bone density for age; Hypogonadism in male; Vitamin D deficiency 04/25/2024 11:30 AM [address] Lab [facility] at [address] [phone] AIHA (autoimmune hemolytic anemia) (HCC); Chronic ITP (idiopathic thrombocytopenia) (HCC) 04/25/2024 9:00 AM ROLLOFF DRIVER Office Visit [facility] Hematology [address] [facility] Medical Office Building 2 [address] [place] [phone] Rekha Osborne MD AIHA (autoimmune hemolytic anemia) (HCC) (Primary Dx); Chronic ITP (idiopathic thrombocytopenia) (HCC); CVID (common variable immunodeficiency) (HCC); High risk medication use 04/25/2024 8:30 AM ROLLOFF DRIVER Lab [facility] Oncology [address] [facility] [address] [place] [address] 04/11/2024 Orders Only [facility] Hematology [facility] Floor [address] [place] [address] Saniya Alberts, ZOFIA 04/09/[address] Advanced Medicine 5th [place] [address] [place] [address] Kobi Og MD 04/01/2024 Telephone [facility] Hematology [facility] Floor [address] [place] [address] Saniya Alberts RN 03/19/[address] Medical Office Building 2 [address] [place] [address] Kobi Og MD 03/12/2024 6:15 PM ROLLOFF DRIVER Lab [facility]) [address] [place] [phone] Osteoporosis without current pathological fracture, unspecified osteoporosis type 03/12/2024 3:40 PM ROLLOFF DRIVER - 03/12/2024 11:59 PM ROLLOFF DRIVER Hospital Encounter [facility] Radiology [facility] ([facility]) [address] [place] [address] Osteoporosis without current pathological fracture, unspecified osteoporosis type Discharge Disposition: Discharge to home or self care 03/12/2024 2:34 PM ROLLOFF DRIVER - 03/12/2024 11:59 PM ROLLOFF DRIVER Hospital Encounter [facility] ([facility]) [address] [place] [address] Mild persistent asthma without complication Discharge Disposition: Discharge to home or self care 03/12/2024 2:30 PM ROLLOFF DRIVER Office Visit [facility] Pulmonary [address] [facility] Medicine 8th [place] [address] [place] [address] Jam Sands MD Mild persistent asthma without complication (Primary Dx); Lymphocytic interstitial pneumonia (CMS/HCC) (HCC) 03/05/2024 9:20 AM ROLLOFF DRIVER Office Visit [facility] [address] [facility] 5th [place] [address] [place] [address] Kobi Og MD Osteoporosis without current pathological fracture, unspecified osteoporosis type (Primary Dx); Arpita's syndrome (CMS/HCC) (HCC); Adrenal insufficiency (HCC); Hypogonadism in male from Last 3 Months Immunizations Immunization Administration Dates Next Due DTaP [...] Decubitus skin ulcer Acute hypoxemic respiratory failure ([facility]) 10/10/2019 Ventilator associated pneumo phi (CMS/HCC) ([facility]) 10/16/2019 Acute non-cardiogenic pulmon chuy edema ([facility]) ([facility]) 10/24/2019 Pneumonia due to infectious organism 04/22/2020 Arterial thrombosis ([facility]/HCC) ([facility]) 10/23/2019 Hypotension 04/22/2020 Acute kidney injury ([facility]) 10/10/2019 Acute cystitis due to enterobacter 01/04/2020 Down syndrome Personal history of COVID-19 10/2019 Clotting disorder ([facility]) ([facility]) Heart disease s/p ND secondary to severe anemia GI (gastrointestinal bleed) Acute respiratory failure wi th hypoxia ([facility]/HCC) ([facility]) 08/20/2022 Family History Medical History Relation Name Comments Cancer Father Aidan iDma Viera Hyperlipidemia Father Aidan Dima Viera Hypertension Father Aidan Ch Aylin Thyroid disease Mother Early Paternal Grandfather Pal Viera Heart attack Paternal Grandfather Pal [place] Osteoporosis Paternal Grandfather Pal [place] Anesthesia problems Neg Hx Broken bones Neg Hx Hip fracture Neg Hx Kyphosis Neg Hx Scoliosis Neg Hx Relation Name Status Comments Father Aidan Viera Mother Paternal Grandfather Pal Viera Social History Tobacco Use Types Packs/Day Years [...] often do you attend chur ch or jainism services? Never 10/11/2021 Do you belong to any clubs o r organizations such as yazidism groups, unions, fraternal or athletic groups, or [...] place to sleep or slept in a retirement (including now)? No 10/11/2021 Personal Safety Answer Date Recorded Have you ever been in or are you currently in a harmful physical or emotional relationship or is someone making you feel afraid or unsafe? Patient unable to answer 12/18/2023 Sex and Gender Information Value Date Recorded Sex Assigned at Not on file Legal Sex Male 1:53 AM ROLLOFF DRIVER Gender Identity Male 10/02/2023 12:44 PM CDT Sexual Orientation Don't know 11/15/2020 1: 06 PM CDT Obstetrics History Last Filed Vital Signs Vital Sign Reading Time Taken Comments Blood Pressure 117/79 05/13/2024 2:31 PM ROLLOFF DRIVER Pulse 90 05/13/2024 2:31 PM ROLLOFF DRIVER Temperature 36.9 C (98.5 F) 05/13/2024 2:31 PM ROLLOFF DRIVER Respiratory Rate 18 03/12/2024 2:48 PM ROLLOFF DRIVER Oxygen Saturation 96% 03/12/2024 2:48 PM ROLLOFF DRIVER Inhaled Oxygen Concentration - - Weight 60.8 kg (134 lb) 05/13/2024 2:31 PM ROLLOFF DRIVER Height 160 cm (5' 3 ) 05/13/2024 2:31 PM ROLLOFF DRIVER Body Mass Index 23.74 05/13/2024 2:31 PM ROLLOFF DRIVER Plan of Treatment Health Maintenance Due Date [...] Pneumococcal vaccine <65 (3 of 3 - PPSV23, PCV20 or PCV21) 01/06/2021 11/11/2020, 12/18/2012 Covid-19 Vaccine (4 2023-2 5 season) 2023 02/17/2021, 01/27/2021, 06/08/2020 Influenza Vaccine (#1) 2023 3, 02/03/2022, 01/27/2021, Additional history exists Hepatitis B Screening Completed 01/12/1999 , 03/17/1998, 1997 Hepatitis C Screening Completed 11/28/2020 Procedures Procedure Name Priority Date/Time Associated Diagnosis Comments EGFR Routine 04/25/2024 10:00 AM ROLLOFF DRIVER AIHA (autoimmune hemolytic anemia) (HCC) Chronic ITP (idiopathic thrombocytopenia) (HCC) DIFFERENTIAL AUTO Routine 04/25/2024 10: 00 AM ROLLOFF DRIVER AIHA (autoimmune hemolytic anemia) (HCC) Chronic ITP (idiopathic thrombocytopenia) (HCC) CBC WITH AUTO DIFFERENTIAL Routine 04/25/2024 10:00 AM ROLLOFF DRIVER AIHA (autoimmune hemolytic anemia) (HCC) Chronic ITP (idiopathic thrombocytopenia) (HCC) COMPREHENSIVE METABOLIC PANEL Routine 04/25/2024 10:00 AM ROLLOFF DRIVER AIHA (autoimmune hemolytic anemia) (HCC) Chronic ITP (idiopathic thrombocytopenia) (HCC) RETICULOCYTES Routine 04/25/2024 10:00 AM ROLLOFF DRIVER AIHA (autoimmune hemolytic anemia) (HCC) Chronic ITP (idiopathic thrombocytopenia) (HCC) HAPTOGLOBIN Routine 04/25/2024 10:00 AM ROLLOFF DRIVER AIHA (autoimmune hemolytic anemia) (HCC) Chronic ITP (idiopathic thrombocytopenia) (HCC) LACTATE DEHYDROGENASE Routine 04/25/2024 10:00 AM ROLLOFF DRIVER AIHA (autoimmune hemolytic anemia) (HCC) Chronic ITP (idiopathic thrombocytopenia) (HCC) DIRECT ANTIGLOBULIN TEST Routine 04/25/2024 10:00 AM ROLLOFF DRIVER AIHA (autoimmune hemolytic anemia) (HCC) Chronic ITP (idiopathic thrombocytopenia) (HCC) XR SCOLIOSIS AP LAT Schedule Routine, Read Routine (OP Routine) 03/12/2024 4:00 PM ROLLOFF DRIVER Osteoporosis without current pathological fracture, unspecified osteoporosis type EGFR Routine 03/12/2024 3:34 PM ROLLOFF DRIVER Osteoporosis without current pathological fracture, unspecified osteoporosis type BETA-CROSSLAPS (BETA-CTX) Routine 03/12/2024 3:34 PM ROLLOFF DRIVER Osteoporosis without current pathological fracture, unspecified osteoporosis type COMPREHENSIVE METABOLIC PANEL Routine 03/12/2024 3:34 PM ROLLOFF DRIVER Osteoporosis without current pathological fracture, unspecified osteoporosis type PTH Routine 03/12/2024 3:34 PM ROLLOFF DRIVER Osteoporosis without current pathological fracture, unspecified osteoporosis type PHOSPHORUS Routine 03/12/2024 3:34 PM ROLLOFF DRIVER Osteoporosis without current pathological fracture, unspecified osteoporosis type OSTEOCALCIN Routine 03/12/2024 3:34 PM ROLLOFF DRIVER Osteoporosis without current pathological fracture, unspecified osteoporosis type ALKALINE PHOSPHATASE, BONE SPECIFIC Routine 03/12/2024 3:34 PM ROLLOFF DRIVER Osteoporosis without current pathological fracture, unspecified osteoporosis type GAMMA GT Routine 03/12/2024 3:34 PM ROLLOFF DRIVER Osteoporosis without current pathological fracture, unspecified osteoporosis type XR CHEST PA LATERAL 2 VIEWS Schedule Routine, Read Routine (OP Routine) 03/12/2024 2:41 PM ROLLOFF DRIVER Mild persistent asthma without complication HEPATITIS PANEL, ACUTE Routine 11/28/2020 5:33 PM CDT from Last 3 Months or Most Recently Relevant to Health Maintenance Results * eGFR (04/25/2024 10:00 AM ROLLOFF DRIVER) eGFR >90 >=60 mL/min/1. 73 m2 Comment: [...] was last reviewed 2021. Testing performed by: [facility], [address] [place] [address] Blood 04/25/2024 10:0 0 AM ROLLOFF DRIVER 04/25/2024 10:16 AM ROLLOFF DRIVER us Rekha Osborne MD LAB BLOOD ORDERABLES Final Result [facility] [address] [address] Department [place] [address] * (ABNORMAL) Differential, auto (04/25/2024 10:00 AM ROLLOFF DRIVER) Neutrophil abs 8.6(H) 1.5 - 6.5 K/cumm Comment:Testing performed by : [facility], [facility] [address], [address] [place] [address] Imm gran abs 0.5(H) 0.0 - 0.1 K/cumm PAULA CAMPOS Comment:Testing performed by : [facility], [facility], [address] [place] [address] Lymphocyte abs 2.3 0.8 - 3.3 K/cumm PAULA CAMPOS Comment:Testing performed by : [facility], [facility], [address] [place] [address] Monocyte abs 1.4(H) 0.2 - 0.8 K/cumm CERNER BJWCH Comment:Testing performed by : [facility], [facility], [address], [place] [address] Eosinophil abs 0.1 0.0 - 0.5 K/cumm CERNER [facility] Comment:Testing performed by : [facility], [facility], [address] [place] [address] Basophil abs 0.2(H) 0.0 - 0.1 K/cumm CERNER BJWCH Comment:Testing performed by : [facility], [facility], [address] [place] [address] Neutrophil pct 65.5 % CERNER BJWCH Comment: Interpretive Data Percent cell count reference ranges are not reported, since discordance with absolute values may lead to misinterpretation of CBC data. Current Interpretive Data was last revised on 2017. Testing performed by: [facility], [facility], [address] [place] [address] Imm gran pct 4.0 % CERNER BJWCH Comment: Interpretive Data Percent cell count reference ranges are not reported, since discordance with absolute values may lead to misinterpretation of CBC data. Current Interpretive Data was last revised on 2017. Testing performed by: [facility], [facility], [address] [place] [address] Lymphocyte pct 17.2 % CERNER B[facility]WCH Comment: Interpretive Data Percent cell count reference ranges are not reported, since discordance with absolute values may lead to misinterpretation of CBC data. Current Interpretive Data was last revised on 2017. Testing performed by: [facility], [facility], [address] [place] [address] Monocyte pct 10.9 % CERNER B[facility]WCH Comment: Interpretive Data Percent cell count reference ranges are not reported, since discordance with absolute values may lead to misinterpretation of CBC data. Current Interpretive Data was last revised on 2017. Testing performed by: [facility], [facility], [address] [place] [address] Eosinophil pct 0.7 % PAULA CAMPOS Comment: Interpretive Data Percent cell count reference ranges are not reported, since discordance with absolute values may lead to misinterpretation of CBC data. Current Interpretive Data was last revised on 2017. Testing performed by: [facility] 2, [address] [place] [address] Basophil pct 1.7 % PAULA CAMPOS Comment: Interpretive Data Percent cell count reference ranges are not reported, since discordance with absolute values may lead to misinterpretation of CBC data. Current Interpretive Data was last revised on 2017. Testing performed by: [facility] 2, [address] [place] [address] Blood 04/25/2024 10:0 0 AM ROLLOFF DRIVER 04/25/2024 10:05 AM ROLLOFF DRIVER us Rekha Osborne MD LAB BLOOD ORDERABLES Final Result [facility] [address] [facility]. Department [place] [address] * (ABNORMAL) CBC with auto differential (04/25/2024 10:00 AM ROLLOFF DRIVER) WBC 13.1(H) 3.8 - 9.9 K/cumm Comment:Testing performed by : [facility], [facility], [address] [place] [address] Hgb 15.1 13.0 - 17.5 g/dL PAULA CAMPOS Comment:Testing performed by : [facility] 2, [address] [place] [address] Hct 45.6 38.9 - 50.3 % PAULA CAMPOS Comment:Testing performed by : [facility] 2, [address] [place] [address] Plt 201 150 - 400 K/cumm CERNER BJWCH Comment:Testing performed by : [facility], [facility], [address] [place] [address] MPV 12.4(H) 9.1 - 12.3 fL CERARTHUR BJWCH Comment:Testing performed by : [place] [address], [address] [place] [address] RBC 4.78 4.30 - 5.80 M/cumm CERARTHUR BJWCH Comment:Testing performed by : [place] [address], [address] [place] [address] MCV 95 81 - 96 fL PAULA BJWCH Comment:Testing performed by : [place] [address], [place] [address] MCH 31.6 27.1 - 33.3 pg CERARTHUR BJWCH Comment:Testing performed by : [place] [address] [place] [address] MCHC 33.1 32.3 - 35.7 g/dL PAULA BJWCH Comment:Testing performed by : [place] [address] [place] [address] RDW CV 16.8(H) 11.1 - 14.9 % PAULA BJWCH Comment:Testing performed by : [place] [address] [place] [address] RDW SD 58.8(H) 35.7 - 48.1 fL PAULA B[facility]WCH Comment:Testing performed by : [place] [address] [place] [address] NRBC abs 0.03(H) 0.00 - 0.01 K/cumm PAULA BJWCH Comment:Testing performed by : [place] [address], [address] [place] [address] Blood 04/25/2024 10:0 0 AM ROLLOFF DRIVER 04/25/2024 10:05 AM ROLLOFF DRIVER us Rekha Osborne MD LAB BLOOD ORDERABLES Final Result Performing Organization Address [facility] Co de Phone Number [facility] [address] [address] [facility] [place] [address] * (ABNORMAL) Reticulocyte Count (04/25/2024 10:00 AM ROLLOFF DRIVER) Retics, absolute 0.104(H) 0.020 - 0.087 M/cumm Comment:Testing performed by : [facility], [facility], [address] [place] [address] Retics 2.2 0.4 - 2.9 % PAULA CAMPOS Comment:Testing performed by : [facility], [facility], [address], [place] [address] Reticulocyte Hgb 32.9 30.5 - 38.0 pg PAULA CAMPOS Comment:Testing performed by : [facility], [facility], [address], [place] [address] Blood 04/25/2024 10:0 0 AM ROLLOFF DRIVER 04/25/2024 10:05 AM ROLLOFF DRIVER Rekha Osborne MD LAB BLOOD ORDERABLES Final Result Performing Organization Address [facility] Co de Phone Number PA[facility] [address] [facility]. [place] [address] * Direct antiglobulin test (04/25/2024 10:00 AM ROLLOFF DRIVER) HUMZA Poly Interp Negative Comment:Testing performed by : [facility], [address], [place] [address] Blood 04/25/2024 10:0 0 AM ROLLOFF DRIVER 04/25/2024 10:16 AM ROLLOFF DRIVER Rekha Osborne MD LAB BLOOD BANK TEST ORDERAB LES Final Result Performing Organization Address City/[facility]/ZIP Co de Phone Number PA[facility]A [facility] [address] [facility]. Department [place] [address] * Lactate dehydrogenase (LD) (04/25/2024 10:00 AM ROLLOFF DRIVER) Lactate dehydrogenase (LDH) 139 100 - 250 Units/L Comment:Testing performed by : [facility], [address] [place] [address] Blood 04/25/2024 10:0 0 AM ROLLOFF DRIVER 04/25/2024 10:16 AM ROLLOFF DRIVER Rekha Osborne MD LAB BLOOD ORDERABLES Edited Result - Final [facility] [address] [address] [facility] [place] [address] * (ABNORMAL) Haptoglobin (04/25/2024 10:00 AM ROLLOFF DRIVER) Haptoglobin 221(H) 30 - 200 mg/dL Comment:Testing performed by : [facility], [address] [place] [address]., [address] Blood 04/25/2024 10:0 0 AM ROLLOFF DRIVER 04/25/2024 1:35 PM ROLLOFF DRIVER Rekha Osborne MD LAB BLOOD ORDERABLES Final Result PAULA [facility] [address] [address]. [facility] [place] [address] * Comprehensive metabolic panel (04/25/2024 10:00 AM ROLLOFF DRIVER) Sodium 139 135 - 145 mmol/L Comment:Testing performed by : [facility], [address] [place] [address] Potassium, pl 4.1 3.3 - 4.9 mmol/L PAULA CAMPOS Comment:Testing performed by : [facility], [address] [place] [address] Chloride 103 97 - 110 mmol/L CERNER BJWCH Comment:Testing performed by : [facility], [address], [place] [address] CO2 26 22 - 32 mmol/L CERNER BJWCH Comment:Testing performed by : [facility], [address], [place] [address] Anion gap 10 2 - 15 mmol/L CERNER BJWCH Comment:Testing performed by : [facility], [address], [place] [address] BUN 15 6 - 25 mg/dL CERNER BJWCH Comment:Testing performed by : [facility], [address], [place] [address] Creatinine 0.80 0.80 - 1.30 mg/dL CERNER BJWCH Comment:Testing performed by : [facility], [address], [place] [address] Glucose 98 70 - 199 mg/dL CERNER [...] was last revised 2022. Testing performed by: [facility], [address], [place] [address] Calcium 9.3 8.5 - 10.3 mg/dL CERNER BJWCH Comment:Testing performed by : [facility], [address], [place] [address] Bilirubin, total 0.2 0.1 - 1.2 mg/dL CERNER BJWCH Comment:Testing performed by : [facility], [address], [place] [address] Protein, pl 6.8 6.5 - 8.5 g/dL CERNER B[facility]WCH Comment:Testing performed by : [facility], [address], [place] [address] Albumin 3.7 3.5 - 5.0 g/dL CERNER B[facility]WCH Comment:Testing performed by : [facility], [address], [place] [address] Alk phos 122 40 - 130 Units/L CERNER BJWCH Comment:Testing performed by : [facility], [address], [place] [address] ALT 29 7 - 55 Units/L CERNER BJWCH Comment:Testing performed by : [facility], [address], [place] [address] AST 23 10 - 50 Units/L CERNER BJWCH Comment:Testing performed by : [facility], [address], [place] [address] Blood 04/25/2024 10:0 0 AM ROLLOFF DRIVER 04/25/2024 10:16 AM ROLLOFF DRIVER us Rekha Osborne MD LAB BLOOD ORDERABLES Edited Result - Final [facility] [address] [address] Department [place] [address] * XR Scoliosis 2 or 3 Views (03/12/2024 4:00 PM ROLLOFF DRIVER) Anatomical Region Laterality Modality Spine N/A Computed Radiogr aphy 03/12/2024 4:28 PM ROLLOFF DRIVER Impressions 03/12/2024 4:28 PM ROLLOFF DRIVER No compression deformities of the spine. Electronically signed by: Inderjit Valle D.O. Narrative 03/12/2024 4:28 PM ROLLOFF DRIVER EXAMINATION: XR SCOLIOSIS AP AND LATERAL HISTORY: [...] Final Result * eGFR (03/12/2024 3:34 PM ROLLOFF DRIVER) eGFR >90 >=60 mL/min/1. 73 m2 Comment: [...] of Race in Diagnosing Kidney Disease, JASN 202). The CKD-EPI equation should not be used for patients with unstable renal function and has not been validated in children and those over 70. Current interpretive data was last reviewed 2021. Blood 03/12/2024 3:34 PM ROLLOFF DRIVER 03/12/2024 4:13 PM ROLLOFF DRIVER us Rick Fabian MD LAB BLOOD ORDERABLES Final Resul t PAULA [facility] Department [place] [address] * Beta-CrossLaps (Beta-CTx) (03/12/2024 3:34 PM ROLLOFF DRIVER) Beta-CTx 455 pg/mL Comment: Interpretive Data Female: Premenopausal: 136 - 689 pg/mL Postmenopausal: 177 - 1015 pg/mL Male: 30 - 50 years: 131 - 670 pg/mL 51 - 70 years: 171 - 1060 pg/mL > 70 years: 152 - 858 pg/mL Current interpretive data was last revised on 2023. Blood 03/12/2024 3:34 PM ROLLOFF DRIVER 03/12/2024 4:10 PM ROLLOFF DRIVER us Rick Fabian MD LAB BLOOD ORDERABLES Final Resul t Performing Organization Address [facility] Co de Phone Number PAULA [facility] [place] [address] * Alkaline phosphatase, bone specific (03/12/2024 3:34 PM ROLLOFF DRIVER) Pathologist [facility] Alk phos, bone 13 0 - 20 mcg/L [place] [facility] Comment: ADDITIONAL INFORMATION Liver-derived alkaline phosphatase (ALP) increases apparent measured bone alkaline phosphatase (BAP) in this assay by 2.5 mcg/L to 5.8 mcg/L for every 100 U/L of liver ALP. Accordingly, serum specimens with significant elevations of liver ALP activity may yield artificially elevated results in the BAP assay. Test Performed by: [facility] [address] [place] [address] Karate Instructor: Imelda Perez Ph.D.; CLIA# [id number] Blood 03/12/2024 3:34 PM ROLLOFF DRIVER 03/12/2024 5:05 PM ROLLOFF DRIVER us Rick Fabian MD LAB BLOOD ORDERABLES Final Resul t Performing Organization Address City/[facility]/ZIP Co de Phone Number [facility] [employer] [place] [address] [place] [facility] * Osteocalcin (03/12/2024 3:34 PM ROLLOFF DRIVER) Osteocalcin See Comment Comment: Credited; Hemolyzed Specimen Interpretive Data Female: Premenopausal: 7.6 - 35.1 ng/mL Postmenopausal: 7.3 - 38.5 ng/mL Male: 30 - 50 years: 8.4 - 36.7 ng/mL > 50 years: 9.9 - 35.6 ng/mL Current interpretive data was last revised on 2021. Blood 03/12/2024 3:34 PM ROLLOFF DRIVER 03/12/2024 4:10 PM ROLLOFF DRIVER us Rick Fabian MD LAB BLOOD ORDERABLES Final Resul t Performing Organization Address [facility] de Phone Number [facility] [place] [address] * Phosphorus (03/12/2024 3:34 PM ROLLOFF DRIVER) Pathologist [facility] Phosphorus, pl 4.1 2.3 - 4.5 mg/dL Blood 03/12/2024 3:34 PM ROLLOFF DRIVER 03/12/2024 4:10 PM ROLLOFF DRIVER Rick Fabian MD LAB BLOOD ORDERABLES Final Resul t Performing Organization Address [facility] de Phone Number [facility] Department [place] [address] * PTH (03/12/2024 3:34 PM ROLLOFF DRIVER) PTH 29 15 - 65 pg/mL Blood 03/12/2024 3:34 PM ROLLOFF DRIVER 03/12/2024 4:10 PM ROLLOFF DRIVER Rick Fabian MD LAB BLOOD ORDERABLES Final Resul t Performing Organization Address [facility] de Phone Number [facility] [place] [address] * Gamma GT (03/12/2024 3:34 PM ROLLOFF DRIVER) GGT 44 10 - 50 Units/L Blood 03/12/2024 3:34 PM ROLLOFF DRIVER 03/12/2024 4:10 PM ROLLOFF DRIVER us Rick Fabian MD LAB BLOOD ORDERABLES Final Resul t [facility] Department [place] [address] * (ABNORMAL) Comprehensive metabolic panel (03/12/2024 3:34 PM ROLLOFF DRIVER) Sodium 138 135 - 145 mmol/L Potassium, pl 4.5 3.3 - 4.9 mmol/L [facility] Chloride 103 97 - 110 mmol/L [facility] CO2 26 22 - 32 mmol/L [facility] Anion gap 9 2 - 15 mmol/L [facility] BUN 16 6 - 25 mg/dL [facility] Creatinine 0.97 0.80 - 1.30 mg/dL [facility] Glucose 114 70 - 199 mg/dL [facility] Comment: Interpretive Data Fasting glucose >/= [...] 2022. Calcium 9.1 8.5 - 10.3 mg/dL [facility] Bilirubin, total 0.2 0.1 - 1.2 mg/dL [facility] Protein, pl 6.9 6.5 - 8.5 g/dL [facility] Albumin 3.4(L) 3.5 - 5.0 g/dL [facility] Alk phos 110 40 - 130 Units/L [facility] ALT 28 7 - 55 Units/L [facility] AST 32 10 - 50 Units/L [facility] Blood 03/12/2024 3:34 PM ROLLOFF DRIVER 03/12/2024 4:10 PM ROLLOFF DRIVER Rick Fabian MD LAB BLOOD ORDERABLES Final Resul t [facility] Department [place] [address] * X-ray chest 2 views (03/12/2024 2:41 PM ROLLOFF DRIVER) Anatomical Region Laterality Modality Body, Chest N/A Computed Radiogr aphy 03/12/2024 3:17 PM ROLLOFF DRIVER Impressions 03/12/2024 3:17 PM ROLLOFF DRIVER Comparison 12/17/2023. Heart size normal. Pediatric median sternotomy wires noted. No pneumothorax or pleural effusion. Clear lungs. Electronically signed by: Cyril Gilbert M.D. Narrative 03/12/2024 3:17 PM ROLLOFF DRIVER EXAMINATION: 2 view chest radiograph Procedure Note Cyril Gilbert MD - 03/12/2024 EXAMINATION: 2 view chest radiograph IMPRESSION: Comparison 12/17/2023. Heart size normal. Pediatric median sternotomy wires noted. No pneumothorax or pleural effusion. Clear lungs. Electronically signed by: Cyril Gilbert M.D. Jam Sands MD IMG XR PROCEDURES Fi nal Result * Hepatitis panel, acute (11/28/2020 5:33 PM CDT) Hep A IgM Nonreactive Nonreactive [facility] Comment: Interpretive Data: If Hep A IgM Ab is reported as Equivocal, a new sample should be drawn in two weeks for testing. Current interpretive data was last revised on 19. Hep B core IgM Nonreactive Nonreactive [facility] Comment: Interpretive Data If HepB Core IgM Ab is reported as Equivocal, a new sample should be drawn in two weeks for testing. Current interpretive data was last revised on 19. Hep C Ab Nonreactive Nonreactive [facility] Comment:Antibodies to HCV no t detected. Does NOT exclude the possibility of recent exposure to HCV. HepBsAg Nonreactive Nonreactive [facility] Blood 11/28/2020 5:33 PM CDT 11/28/2020 5:53 PM CDT us Jazzmine Mccartney NP LAB MICROBIO LOGY - GENERAL ORDERABLES Edited Result - Final [facility] Department [place] [address] from Last 3 Months or Most Recently Relevant to Health Maintenance Insurance [place] [facility] HMO/PPO Address: [address] [address] [place] [address] [employer] OPEN ACCESS [facility] [place] [facility] HMO/PPO Address: [address] [address] [place] [address] [employer] OPEN ACCESS [place] [employer] [place] ACCESS [facility] CHO[facility] HMO/PPO Address: [facility] [address] [place] [address] Advance Directives For more information, please contact: [phone] Documents on File Type Date Recorded Patient Inspector Firearms Expl anation Power of Treater 10/21/2021 12:58 PM ADVANCE DIRECTIVE 10/14/2019 12:35 [...] 5:09 PM 01/02/2021 6:56 PM Care Teams Cuff Maker Relationship Specialty Start Date End Date Zoila Gleason MD [address] [place] [address] PCP - General 09/29/16 Rupal Isabel MD 10 [facility] [address] [place] [address] Referring Physician Allergy and Immunology 01/11/19 Rekha Osborne MD [address] [place] [address] Medical Oncologist/Hydrochloric Manufacturing Supervisor Hematology 05/11/20
--- OUTSIDE RECORDS SUMMARY | 2024-05-27 15:42 | XMS_ITS | Encounter Summary ---
Author Organization [facility] Address [address] [place] [address] Phone Care Team Providers Care Counterperson Name Role Phone Zoila Gleason MD Primary Care Provider Rupal Isabel MD Unavailable [phone] Rekha Osborne MD Unavailable [phone] Mayuri Lyn RN Unavailable [phone] Michelle Colin REFRIGERATOR ASSEMBLER Unavailable [phone] Encounter Details Date Type Department Care Team [...] on file Legal Sex Male 1:53 AM CURAM DEVELOPER Gender Identity Male 10/02/2023 12:44 PM CDT [...] COVID: Recovered 11/29/2020 11/29/2020 03/29/2021 3:05 AM CURAM DEVELOPER COVID: Suspected 10/09/2021 10/09/2021 10/09/2021 9:37 AM CDT COVID: Suspected 03/06/2022 03/06/2022 03/06/2022 9:30 AM CURAM DEVELOPER RSV, droplet 03/06/2022 03/06/2022 03/13/2022 3:05 AM CURAM DEVELOPER COVID: Suspected 06/26/2022 06/26/2022 06/26/2022 5:59 PM CDT Coronavirus, droplet 06/26/2022 06/26/2022 023 3:06 AM CDT documented as of this encounter Care Teams Counterperson Relationship Specialty Start Date End Date Zoila Gleason MD [address] [place] [id number] PCP - General 09/29/16 Rupal Isabel MD 10 [facility] [address] [place] [address] Referring Physician Allergy and Immunology 01/11/19 Rekha Osborne MD [address] [place] [address] Medical Oncologist/Dozer Operator Hematology 05/11/20 Mayuri Lyn, RN [address] [facility] [address] [place], [place] [id number] SHOP Outpatient Sheltered Workshop Executive Director 12/04/20 01/04/21 Michelle Colin, REFRIGERATOR ASSEMBLER 4590 [facility] ([facility]) Mailstop [phone] [place] [address] SHOP Outpatient Sheltered Workshop Executive Director 10/19/21 11/16/21 documented as of this encounter
--- OUTSIDE RECORDS SUMMARY | 2024-05-27 15:42 | XMS_ITS | Encounter Summary ---
Author Organization [facility] [employer] [facility] Address [address] [place] [address] Phone Care Team Providers Care Automation Analyst Name Role Phone Zoila Gleason MD Primary Care Provider Rupal Isabel MD Unavailable [phone] Rekha Osborne MD Unavailable [phone] Mayuri Lyn RN Unavailable [phone] Michelle Colin PLANT CLERK Unavailable [phone] Encounter Details Date Type Department Care Team [...] on file Legal Sex Male 1:53 AM STATISTICAL SECRETARY Gender Identity Male 10/02/2023 12:44 PM CDT [...] COVID: Suspected 04/21/2020 04/21/2020 04/21/2020 11:24 AM STATISTICAL SECRETARY Respiratory Infection (MICKEY), contact + droplet Comment:Automatically added due to negative COVID-19 result. 04/21/2020 04/21/2020 05/05/2020 3:0 6 AM STATISTICAL SECRETARY COVID: Suspected 04/21/2020 04/21/2020 04/21/2020 6:48 PM STATISTICAL SECRETARY COVID: Suspected 09/25/2020 09/25/2020 09/25/2020 10:11 AM CDT Rhino/Enterovirus 09/25/2020 09/25/2020 10/02/2020 3:05 AM CDT COVID: Recovered 11/29/2020 11/29/2020 03/29/2021 3:05 AM STATISTICAL SECRETARY COVID: Suspected 10/09/2021 10/09/2021 10/09/2021 9:37 AM CDT COVID: Suspected 03/06/2022 03/06/2022 03/06/2022 9:30 AM STATISTICAL SECRETARY RSV, droplet 03/06/2022 03/06/2022 03/13/2022 3:05 AM STATISTICAL SECRETARY COVID: Suspected 06/26/2022 06/26/2022 06/26/2022 5:59 PM CDT Coronavirus, droplet 06/26/2022 06/26/2022 023 3:06 AM CDT documented as of this encounter Care Teams Automation Analyst Relationship Specialty Start Date End Date Zoila Gleason MD [address] [place] [address] PCP - General 09/29/16 Rupal Isabel MD [address] [place] [address] [address] [place] [address] Referring Physician Allergy and Immunology 01/11/19 Rekha Osborne MD [address] [place] [address] Medical Oncologist/Fast Food Services Manager Hematology 05/11/20 Mayuri Lyn, RN 45[address] [facility] [address] [place] [address] LAST Outpatient Perl Programmer 12/04/20 01/04/21 Michelle Colin LCSW 4590 [facility] ([facility]) Mailstop [phone] [place] [address] SHOP Outpatient Perl Programmer 10/19/21 11/16/21 documented as of this encounter
--- OUTSIDE RECORDS SUMMARY | 2024-05-27 15:42 | XMS_ITS | Encounter Summary ---
Author Organization [facility] [employer] [facility] Address [address] [place] [address] Phone Care Team Providers Care Professor Of German Name Role Phone Zoila Gleason MD Primary Care Provider Rupal Isabel MD Unavailable [phone] Rekha Osborne MD Unavailable [phone] Mayuri Lyn RN Unavailable [phone] Michelle ColinW Unavailable [phone] Encounter Details Date Type Department Care Team [...] on file Legal Sex Male 1:53 AM PROGRAMMING DIRECTOR Gender Identity Male 10/02/2023 12:44 PM CDT [...] COVID: Recovered 11/29/2020 11/29/2020 03/29/2021 3:05 AM PROGRAMMING DIRECTOR COVID: Suspected 10/09/2021 10/09/2021 10/09/2021 9:37 AM CDT COVID: Suspected 03/06/2022 03/06/2022 03/06/2022 9:30 AM PROGRAMMING DIRECTOR RSV, droplet 03/06/2022 03/06/2022 03/13/2022 3:05 AM PROGRAMMING DIRECTOR COVID: Suspected 06/26/2022 06/26/2022 06/26/2022 5:59 PM CDT Coronavirus, droplet 06/26/2022 06/26/2022 023 3:06 AM CDT documented as of this encounter Care Teams Professor Of German Relationship Specialty Start Date End Date Zoila Gleason MD [address] [place] [place], [place] [id number] PCP - General 09/29/16 Rupal Isabel MD 10 [facility] [address] [place] [address] Referring Physician Allergy and Immunology 01/11/19 Rekha Osborne MD [address] [place] [address] Medical Oncologist/Baggage Handling Supervisor Hematology 05/11/20 Mayuri Lyn, RN 4590 [facility] [address] [place] [address] SHOP Outpatient Button Station Worker 12/04/20 01/04/21 Michelle Colin LCSW 4590 [facility] ([facility]) Mailstop [phone] [place] [address] SHOP Outpatient Button Station Worker 10/19/21 11/16/21 documented as of this encounter
--- OUTSIDE RECORDS SUMMARY | 2024-05-27 15:42 | XMS_ITS | Encounter Summary ---
Author Organization [facility] Address [address] [place] [address] Phone Care Team Providers Care Loan Collector Name Role Phone Zoila Gleason MD Primary Care Provider Rupal Isabel MD Unavailable [phone] Rekha Osborne MD Unavailable [phone] Mayuri Lyn RN Unavailable [phone] Michelle Colin MEDICAL RECORD ASSISTANT Unavailable [phone] Encounter Details Date Type Department Care Team [...] on file Legal Sex Male 1:53 AM BAG LOADER Gender Identity Male 10/02/2023 12:44 PM [...] COVID: Recovered 11/29/2020 11/29/2020 03/29/2021 3:05 AM BAG LOADER COVID: Suspected 10/09/2021 10/09/2021 10/09/2021 9:37 AM CDT COVID: Suspected 03/06/2022 03/06/2022 03/06/2022 9:30 AM BAG LOADER RSV, droplet 03/06/2022 03/06/2022 03/13/2022 3:05 AM BAG LOADER COVID: Suspected 06/26/2022 06/26/2022 06/26/2022 5:59 PM CDT Coronavirus, droplet 06/26/2022 06/26/2022 023 3:06 AM CDT documented as of this encounter Care Teams Loan Collector Relationship Specialty Start Date End Date Zoila Gleason MD [address] [place] [id number] PCP - General 09/29/16 Rupal Isabel MD [address] [facility] [address] [place] [address] Referring Physician Allergy and Immunology 01/11/19 Rekha Osborne MD [address] [place] [address] Medical Oncologist/Cooker Cleaner Hematology 05/11/20 Mayuri Lyn, RN 4590 [facility] [address] [place], [place] [address] SHOP Outpatient Preschool Assistant Teacher 12/04/20 01/04/21 Michelle Colin, MEDICAL RECORD ASSISTANT 4590 [facility] ([facility] Mailstop [phone] [place] [address] SHOP Outpatient Preschool Assistant Teacher 10/19/21 11/16/21 documented as of this encounter
--- OUTSIDE RECORDS SUMMARY | 2024-05-27 15:42 | XMS_ITS | Encounter Summary ---
Author Organization [facility] Address [address] [place] [address] Phone Care Team Providers Care Financial Planning Consultant Name Role Phone Zoila Gleason MD Primary Care Provider Rupal Isabel MD Unavailable [phone] Rekha Osborne MD Unavailable [phone] Mayuri Lyn RN Unavailable [phone] Michelle Colin ENVIRONMENTAL PLANNER Unavailable [phone] Encounter Details Date Type Department Care Team [...] on file Legal Sex Male 1:53 AM TILE MECHANIC HELPER Gender Identity Male 10/02/2023 12:44 PM CDT [...] COVID: Recovered 11/29/2020 11/29/2020 03/29/2021 3:05 AM TILE MECHANIC HELPER COVID: Suspected 10/09/2021 10/09/2021 10/09/2021 9:37 AM CDT COVID: Suspected 03/06/2022 03/06/2022 03/06/2022 9:30 AM TILE MECHANIC HELPER RSV, droplet 03/06/2022 03/06/2022 03/13/2022 3:05 AM TILE MECHANIC HELPER COVID: Suspected 06/26/2022 06/26/2022 06/26/2022 5:59 PM CDT Coronavirus, droplet 06/26/2022 06/26/2022 023 3:06 AM CDT documented as of this encounter Care Teams Financial Planning Consultant Relationship Specialty Start Date End Date Zoila Gleason MD [address] [place] [id number] PCP - General 09/29/16 Rupal Isabel MD 10 [facility] [address] [place] [address] Referring Physician Allergy and Immunology 01/11/19 Rekha Osborne MD [address] [place] [address] Medical Oncologist/Inventory Manager Hematology 05/11/20 Mayuri Lyn, RN 4590 [facility] [address] [place], [place] [address] SHOP Outpatient Gastroenterology Professor 12/04/20 01/04/21 Michelle Colin, ENVIRONMENTAL PLANNER 4590 [facility] ([facility]) Mailstop [phone] [place] [address] SHOP Outpatient Gastroenterology Professor 10/19/21 11/16/21 documented as of this encounter
--- OUTSIDE RECORDS SUMMARY | 2024-05-27 15:42 | XMS_ITS | Encounter Summary ---
Author Organization [facility] [employer] Address [address] [place] [address] Phone Care Team Providers Care Intensive Care Medicine Specialist Name Role Phone Zoila Gleason MD Primary Care Provider Rupal Isabel MD Unavailable [phone] Rekha Osborne MD Unavailable Mauyri Lyn RN Unavailable [phone] Michelle Colin KILN STOKER Unavailable [phone] Encounter Details Date Type Department Care Team [...] on file Legal Sex Male 1:53 AM FISH ROE PROCESSOR Gender Identity Male 10/02/2023 12:44 PM CDT [...] COVID: Suspected 04/21/2020 04/21/2020 04/21/2020 11:24 AM FISH ROE PROCESSOR Respiratory Infection (MICKEY), contact + droplet Comment:Automatically added due to negative COVID-19 result. 04/21/2020 04/21/2020 05/05/2020 3:0 6 AM FISH ROE PROCESSOR COVID: Suspected 04/21/2020 04/21/2020 04/21/2020 6:48 PM FISH ROE PROCESSOR COVID: Suspected 09/25/2020 09/25/2020 09/25/2020 10:11 AM CDT Rhino/Enterovirus 09/25/2020 09/25/2020 10/02/2020 3:05 AM CDT COVID: Recovered 11/29/2020 11/29/2020 03/29/2021 3:05 AM FISH ROE PROCESSOR COVID: Suspected 10/09/2021 10/09/2021 10/09/2021 9:37 AM CDT COVID: Suspected 03/06/2022 03/06/2022 03/06/2022 9:30 AM FISH ROE PROCESSOR RSV, droplet 03/06/2022 03/06/2022 03/13/2022 3:05 AM FISH ROE PROCESSOR COVID: Suspected 06/26/2022 06/26/2022 06/26/2022 5:59 PM CDT Coronavirus, droplet 06/26/2022 06/26/2022 023 3:06 AM CDT documented as of this encounter Care Teams Intensive Care Medicine Specialist Relationship Specialty Start Date End Date Zoila Gleason MD [address] [place] [address] PCP - General 09/29/16 Rupal Isabel MD [address] [place] [address] [address] [place] [address] Referring Physician Allergy and Immunology 01/11/19 Rekha Osborne MD [address] [place] [address] Medical Oncologist/Poultry Pinner Hematology 05/11/20 Mayuri Lyn, RN 4590 [facility] [address] [place] [address] LAST Outpatient Telesales Advisor 12/04/20 01/04/21 Michelle Colin LCSW 4590 [facility] ([facility]) Mailstop [phone] [place] [address] SHOP Outpatient Telesales Advisor 10/19/21 11/16/21 documented as of this encounter
--- OUTSIDE RECORDS SUMMARY | 2024-05-27 15:42 | XMS_ITS | Encounter Summary ---
Author Organization [facility] Address [address] [place] [address] Phone Care Team Providers Care Refrigeration Tech Name Role Phone Zoila Gleason MD Primary Care Provider [phone] Rupal Isabel MD Unavailable [phone] Rekha Osborne MD Unavailable [phone] Mayuri Lyn RN Unavailable [phone] Michelle ColinW Unavailable [phone] Encounter Details Date Type Department Care Team [...] than three times a week 12/10/2020 Attends [employer] Not on file 12/10 Active Member [...] place to sleep or slept in a alf (including now)? No 12/10/2020 Sex and Gender Information Value Date Recorded Sex Assigned at Not on file Legal Sex Male 1:53 AM TECHNICAL ASST Gender Identity Male 10/02/2023 12:44 PM CDT [...] COVID: Recovered 11/29/2020 11/29/2020 03/29/2021 3:05 AM TECHNICAL ASST COVID: Suspected 10/09/2021 10/09/2021 10/09/2021 9:37 AM CDT COVID: Suspected 03/06/2022 03/06/2022 03/06/2022 9:30 AM TECHNICAL ASST RSV, droplet 03/06/2022 03/06/2022 03/13/2022 3:05 AM TECHNICAL ASST COVID: Suspected 06/26/2022 06/26/2022 06/26/2022 5:59 PM CDT Coronavirus, droplet 06/26/2022 06/26/2022 023 3:06 AM CDT documented as of this encounter Care Teams Refrigeration Tech Relationship Specialty Start Date End Date Zoila Gleason MD [address] [place] [address] PCP - General 09/29/16 Rupal Isabel MD [address] [facility] [address] [place] [address] Referring Physician Allergy and Immunology 01/11/19 Rekha Osborne MD [address] [place] [address] Medical Oncologist/Cabbage Salter Hematology 05/11/20 Mayuri Lyn, RN 4590 [place] [facility] [address] [place] [address] SHOP Outpatient Research Affiliate 12/04/20 01/04/21 Michelle Colin LCSW 4590 [facility] ([facility] Mailstop [phone] [place] [address] SHOP Outpatient Research Affiliate 10/19/21 11/16/21 documented as of this encounter
--- OUTSIDE RECORDS SUMMARY | 2024-05-27 15:42 | XMS_ITS | Encounter Summary ---
Author Organization [facility] Address [address] [place] [address] Phone Care Team Providers Care Order Dispatcher Chief Name Role Phone Zoila Gleason MD Primary Care Provider Rupal Isabel MD Unavailable [phone] Rekha Osborne MD Unavailable [phone] Mayuri Lyn RN Unavailable [phone] Michelle Colin MEDICAL DIAGNOSTIC RADIOGRAPHER Unavailable [phone] Encounter Details Date Type Department Care Team [...] on file Legal Sex Male 1:53 AM INSURANCE SALES SUPERVISOR Gender Identity Male 10/02/2023 12:44 PM CDT [...] COVID: Suspected 04/21/2020 04/21/2020 04/21/2020 11:24 AM INSURANCE SALES SUPERVISOR Respiratory Infection (MICKEY), contact + droplet Comment:Automatically added due to negative COVID-19 result. 04/21/2020 04/21/2020 05/05/2020 3:0 6 AM INSURANCE SALES SUPERVISOR COVID: Suspected 04/21/2020 04/21/2020 04/21/2020 6:48 PM INSURANCE SALES SUPERVISOR COVID: Suspected 09/25/2020 09/25/2020 09/25/2020 10:11 AM CDT Rhino/Enterovirus 09/25/2020 09/25/2020 10/02/2020 3:05 AM CDT COVID: Recovered 11/29/2020 11/29/2020 03/29/2021 3:05 AM INSURANCE SALES SUPERVISOR COVID: Suspected 10/09/2021 10/09/2021 10/09/2021 9:37 AM CDT COVID: Suspected 03/06/2022 03/06/2022 03/06/2022 9:30 AM INSURANCE SALES SUPERVISOR RSV, droplet 03/06/2022 03/06/2022 03/13/2022 3:05 AM INSURANCE SALES SUPERVISOR COVID: Suspected 06/26/2022 06/26/2022 06/26/2022 5:59 PM CDT Coronavirus, droplet 06/26/2022 06/26/2022 023 3:06 AM CDT documented as of this encounter Care Teams Order Dispatcher Chief Relationship Specialty Start Date End Date Zoila Gleason MD [address] [place] [address] PCP - General 09/29/16 Rupal Isabel MD [address] [place] [address] [address] [place] [address] Referring Physician Allergy and Immunology 01/11/19 Rekha Osborne MD [address] [place] [address] Medical Oncologist/Seismographer Hematology 05/11/20 Mayuri Lyn, RN 4590 [facility] [address] [place] [address] LAST Outpatient Drafter Construction 12/04/20 01/04/21 Michelle Colin LCSW 4590 [facility] ([facility]) Mailstop [phone] [place] [address] SHOP Outpatient Drafter Construction 10/19/21 11/16/21 documented as of this encounter
--- OUTSIDE RECORDS SUMMARY | 2024-05-27 15:42 | XMS_ITS | Encounter Summary ---
Author Organization [facility] Address [address] [place] [address] Phone Care Team Providers Care Instruments Sales Representative Name Role Phone Zoila Gleason MD Primary Care Provider [phone] Rupal Isabel MD Unavailable [phone] Rekha Osborne MD Unavailable [phone] Mayuri Lyn RN Unavailable [phone] Michelle ColinW Unavailable [phone] Encounter Details Date Type Department Care Team [...] than three times a week 12/10/2020 Attends Gnosticism Services Not on file 12/10 Active Member [...] place to sleep or slept in a detention (including now)? No 12/10/2020 Sex and Gender Information Value Date Recorded Sex Assigned at Not on file Legal Sex Male 1:53 AM POSTAL SUPERINTENDENT Gender Identity Male 10/02/2023 12:44 PM CDT [...] COVID: Recovered 11/29/2020 11/29/2020 03/29/2021 3:05 AM POSTAL SUPERINTENDENT COVID: Suspected 10/09/2021 10/09/2021 10/09/2021 9:37 AM CDT COVID: Suspected 03/06/2022 03/06/2022 03/06/2022 9:30 AM POSTAL SUPERINTENDENT RSV, droplet 03/06/2022 03/06/2022 03/13/2022 3:05 AM POSTAL SUPERINTENDENT COVID: Suspected 06/26/2022 06/26/2022 06/26/2022 5:59 PM CDT Coronavirus, droplet 06/26/2022 06/26/2022 023 3:06 AM CDT documented as of this encounter Care Teams Instruments Sales Representative Relationship Specialty Start Date End Date Zoila Gleason MD [address] [place] [address] PCP - General 09/29/16 Rupal Isabel MD 10 [facility] [address] [place] [address] Referring Physician Allergy and Immunology 01/11/19 Rekha Osborne MD [address] [place] [address] Medical Oncologist/Medical Education Manager Hematology 05/11/20 Mayuri Lyn, RN 4590 [facility] 5300 [place] [address] SHOP Outpatient Lcpc 12/04/20 01/04/21 Michelle Colin LCSW 4590 [facility] ([facility] Mailstop [phone] [place] [address] SHOP Outpatient Lcpc 10/19/21 11/16/21 documented as of this encounter
--- OUTSIDE RECORDS SUMMARY | 2024-05-27 15:42 | XMS_ITS | Encounter Summary ---
Author Organization [facility] Address [address] [place] [address] Phone Care Team Providers Care Merry Go Round Attendant Name Role Phone Zoila Gleason MD Primary Care Provider Rupal Isabel MD Unavailable [phone] Rekha Osborne MD Unavailable [phone] Mayuri Lyn RN Unavailable [phone] Michelle Colin WELDING TECHNICIAN Unavailable [phone] Encounter Details Date Type Department Care Team [...] on file Legal Sex Male 1:53 AM STAFF TRAINING AND DEVELOPMENT MANAGER Gender Identity Male 10/02/2023 12:44 PM [...] COVID: Recovered 11/29/2020 11/29/2020 03/29/2021 3:05 AM STAFF TRAINING AND DEVELOPMENT MANAGER COVID: Suspected 10/09/2021 10/09/2021 10/09/2021 9:37 AM CDT COVID: Suspected 03/06/2022 03/06/2022 03/06/2022 9:30 AM STAFF TRAINING AND DEVELOPMENT MANAGER RSV, droplet 03/06/2022 03/06/2022 03/13/2022 3:05 AM STAFF TRAINING AND DEVELOPMENT MANAGER COVID: Suspected 06/26/2022 06/26/2022 06/26/2022 5:59 PM CDT Coronavirus, droplet 06/26/2022 06/26/2022 023 3:06 AM CDT documented as of this encounter Care Teams Merry Go Round Attendant Relationship Specialty Start Date End Date Zoila Gleason MD [address] [place] [id number] PCP - General 09/29/16 Rupal Isabel MD 10 [facility] [address] [place] [address] Referring Physician Allergy and Immunology 01/11/19 Rekha Osborne MD [address] [place] [address] Medical Oncologist/Records Coordinator Hematology 05/11/20 Mayuri Lyn, RN 4590 [facility] [address] [place], [place] [address] SHOP Outpatient Town Justice 12/04/20 01/04/21 Michelle Colin, WELDING TECHNICIAN 4590 [facility] ([facility]) Mailstop [phone] [place] [address] SHOP Outpatient Town Justice 10/19/21 11/16/21 documented as of this encounter
--- OUTSIDE RECORDS SUMMARY | 2024-05-27 15:42 | XMS_ITS | Encounter Summary ---
Author Organization [facility] [employer] [facility] Address [address] [place] [address] Phone Care Team Providers Care Central Control Room Operator Name Role Phone Zoila Gleason MD Primary Care Provider Rupal Isabel MD Unavailable [phone] Rekha Osborne MD Unavailable [phone] Mayuri Lyn RN Unavailable [phone] Michelle Colin WOOL GROWER Unavailable [phone] Encounter Details Date Type Department Care Team [...] on file Legal Sex Male 1:53 AM TIRE MAINTENANCE TECHNICIAN Gender Identity Male 10/02/2023 12:44 PM [...] COVID: Suspected 04/21/2020 04/21/2020 04/21/2020 11:24 AM TIRE MAINTENANCE TECHNICIAN Respiratory Infection (MICKEY), contact + droplet Comment:Automatically added due to negative COVID-19 result. 04/21/2020 04/21/2020 05/05/2020 3:0 6 AM TIRE MAINTENANCE TECHNICIAN COVID: Suspected 04/21/2020 04/21/2020 04/21/2020 6:48 PM TIRE MAINTENANCE TECHNICIAN COVID: Suspected 09/25/2020 09/25/2020 09/25/2020 10:11 AM CDT Rhino/Enterovirus 09/25/2020 09/25/2020 10/02/2020 3:05 AM CDT COVID: Recovered 11/29/2020 11/29/2020 03/29/2021 3:05 AM TIRE MAINTENANCE TECHNICIAN COVID: Suspected 10/09/2021 10/09/2021 10/09/2021 9:37 AM CDT COVID: Suspected 03/06/2022 03/06/2022 03/06/2022 9:30 AM TIRE MAINTENANCE TECHNICIAN RSV, droplet 03/06/2022 03/06/2022 03/13/2022 3:05 AM TIRE MAINTENANCE TECHNICIAN COVID: Suspected 06/26/2022 06/26/2022 06/26/2022 5:59 PM CDT Coronavirus, droplet 06/26/2022 06/26/2022 023 3:06 AM CDT documented as of this encounter Care Teams Central Control Room Operator Relationship Specialty Start Date End Date Zoila Gleason MD [address] [place] [address] PCP - General 09/29/16 Rupal Isabel MD [address] [place] [address] [address] [place] [address] Referring Physician Allergy and Immunology 01/11/19 Rekha Osborne MD [address] [place] [address] Medical Oncologist/Surgery Technician Hematology 05/11/20 Mayuri Lyn, RN 4590 [facility] [address] [place] [address] SHOP Outpatient Medical Social Worker 12/04/20 01/04/21 Michelle Colin [facility] 4590 [facility] ([facility]) Mailstop [phone] [place] [address] SHOP Outpatient Medical Social Worker 10/19/21 11/16/21 documented as of this encounter
--- OUTSIDE RECORDS SUMMARY | 2024-05-27 15:42 | XMS_ITS | Encounter Summary ---
Author Organization [facility] Address [address] [place] [address] Phone Care Team Providers Care Director Risk Name Role Phone Zoila Gleason MD Primary Care Provider [phone] Rupal Isabel MD Unavailable [phone] Rekha Osborne MD Unavailable [phone] Mayuri Lyn RN Unavailable [phone] Michelle Colin CREDIT CONTROL ADMINISTRATOR Unavailable [phone] Encounter Details Date Type Department Care Team [...] on file Legal Sex Male 1:53 AM COLOR PRINT INSPECTOR Gender Identity Male 10/02/2023 12:44 PM [...] COVID: Suspected 04/21/2020 04/21/2020 04/21/2020 11:24 AM COLOR PRINT INSPECTOR Respiratory Infection (MICKEY), contact + droplet Comment:Automatically added due to negative COVID-19 result. 04/21/2020 04/21/2020 05/05/2020 3:0 6 AM COLOR PRINT INSPECTOR COVID: Suspected 04/21/2020 04/21/2020 04/21/2020 6:48 PM COLOR PRINT INSPECTOR COVID: Suspected 09/25/2020 09/25/2020 09/25/2020 10:11 AM CDT Rhino/Enterovirus 09/25/2020 09/25/2020 10/02/2020 3:05 AM CDT COVID: Recovered 11/29/2020 11/29/2020 03/29/2021 3:05 AM COLOR PRINT INSPECTOR COVID: Suspected 10/09/2021 10/09/2021 10/09/2021 9:37 AM CDT COVID: Suspected 03/06/2022 03/06/2022 03/06/2022 9:30 AM COLOR PRINT INSPECTOR RSV, droplet 03/06/2022 03/06/2022 03/13/2022 3:05 AM COLOR PRINT INSPECTOR COVID: Suspected 06/26/2022 06/26/2022 06/26/2022 5:59 PM CDT Coronavirus, droplet 06/26/2022 06/26/2022 023 3:06 AM CDT documented as of this encounter Care Teams Director Risk Relationship Specialty Start Date End Date Zoila Gleason MD [address] [place] [address] PCP - General 09/29/16 Rupal Isabel MD [address] [place] [address] [facility] 200 [place] [address] Referring Physician Allergy and Immunology 01/11/19 Rekha Osborne MD [address] [place] [address] Medical Oncologist/Sole Tacker Hematology 05/11/20 Mayuri Lyn, RN 4590 [facility] [address] [place] [address] SHOP Outpatient Military Analyst 12/04/20 01/04/21 Michelle Colin LCSW 6990 [facility] ([facility]) Mailstop [phone] [place] [address] SHOP Outpatient Military Analyst 10/19/21 11/16/21 documented as of this encounter
--- OUTSIDE RECORDS SUMMARY | 2024-05-27 15:42 | XMS_ITS | Encounter Summary ---
Author Organization [facility] Address [address] [place] [address] Phone Care Team Providers Care Security Test Engineer Name Role Phone Zoila Gleason MD Primary Care Provider [phone] Rupal Isabel MD Unavailable [phone] Rekha Osborne MD Unavailable [phone] Michelle Colin [facility] Unavailable [phone] Encounter Details Date Type Department Care Team [...] than three times a week 12/10/2020 Attends Christianity Services Not on file 12/10 Active Member [...] in a group home (including now)? No 12/10/2020 Sex and Gender Information Value Date Recorded Sex Assigned at Not on file Legal Sex Male 1:53 AM POWER PLANT INSTALLER Gender Identity Male 10/02/2023 12:44 PM [...] COVID: Suspected 03/06/2022 03/06/2022 03/06/2022 9:30 AM POWER PLANT INSTALLER RSV, droplet 03/06/2022 03/06/2022 03/13/2022 3:05 AM POWER PLANT INSTALLER COVID: Suspected 06/26/2022 06/26/2022 06/26/2022 5:59 PM CDT Coronavirus, droplet 06/26/2022 06/26/2022 023 3:06 AM CDT documented as of this encounter Care Teams Security Test Engineer Relationship Specialty Start Date End Date Zoila Gleason MD [address] [place] [address] PCP - General 09/29/16 Rupal Isabel MD 10 [facility] [address] [place] [address] Referring Physician Allergy and Immunology 01/11/19 Rekha Osborne MD [address] [place], [place] [address] Medical Oncologist/Production Truck Driver Hematology 05/11/20 Michelle Colin, CARD DOFFER 4590 [facility] ([facility]) Mailstop [phone] [place] [address] SHOP Outpatient Post Office Manager 10/19/21 11/16/21 documented as of this encounter
--- OUTSIDE RECORDS SUMMARY | 2024-05-27 15:42 | XMS_ITS | Encounter Summary ---
Author Organization [facility] Address [address] [place] [address] Phone Care Team Providers Care Triage Nurse Name Role Phone Zoila Gleason MD Primary Care Provider Rupal Isabel MD Unavailable [phone] Rekha Osborne MD Unavailable [phone] Mayuri Lyn RN Unavailable [phone] Michelle ColinW Unavailable [phone] Encounter Details Date Type Department Care Team [...] on file Legal Sex Male 1:53 AM ACCOUNTS RECEIVABLE EXECUTIVE Gender Identity Male 10/02/2023 12:44 PM CDT [...] COVID: Suspected 04/21/2020 04/21/2020 04/21/2020 11:24 AM ACCOUNTS RECEIVABLE EXECUTIVE Respiratory Infection (MICKEY), contact + droplet Comment:Automatically added due to negative COVID-19 result. 04/21/2020 04/21/2020 05/05/2020 3:0 6 AM ACCOUNTS RECEIVABLE EXECUTIVE COVID: Suspected 04/21/2020 04/21/2020 04/21/2020 6:48 PM ACCOUNTS RECEIVABLE EXECUTIVE COVID: Suspected 09/25/2020 09/25/2020 09/25/2020 10:11 AM CDT Rhino/Enterovirus 09/25/2020 09/25/2020 10/02/2020 3:05 AM CDT COVID: Recovered 11/29/2020 11/29/2020 03/29/2021 3:05 AM ACCOUNTS RECEIVABLE EXECUTIVE COVID: Suspected 10/09/2021 10/09/2021 10/09/2021 9:37 AM CDT COVID: Suspected 03/06/2022 03/06/2022 03/06/2022 9:30 AM ACCOUNTS RECEIVABLE EXECUTIVE RSV, droplet 03/06/2022 03/06/2022 03/13/2022 3:05 AM ACCOUNTS RECEIVABLE EXECUTIVE COVID: Suspected 06/26/2022 06/26/2022 06/26/2022 5:59 PM CDT Coronavirus, droplet 06/26/2022 06/26/2022 023 3:06 AM CDT documented as of this encounter Care Teams Triage Nurse Relationship Specialty Start Date End Date Zoila Gleason MD [address] [place] [address] PCP - General 09/29/16 Rupal Isabel MD [address] [place] [address] [address] [place] [address] Referring Physician Allergy and Immunology 01/11/19 Rekha Osborne MD [address] [place] [address] Medical Oncologist/Public Policy Mediator Hematology 05/11/20 Mayuri Lyn, RN 4590 [facility] 5300 [place] [address] LAST Outpatient Advanced Manufacturing Engineer 12/04/20 01/04/21 Michelle Colin LCSW 4590 [facility] ([facility]) Mailstop [phone] [place] [address] SHOP Outpatient Advanced Manufacturing Engineer 10/19/21 11/16/21 documented as of this encounter
--- OUTSIDE RECORDS SUMMARY | 2024-05-27 15:42 | XMS_ITS | Encounter Summary ---
Author Organization [facility] Address [address] [place] [address] Phone Care Team Providers Care Urban Forester Name Role Phone Zoila Gleason MD Primary Care Provider Rupal Isabel MD Unavailable [phone] Rekha Osborne MD Unavailable [phone] Mayuri Lyn RN Unavailable [phone] Michelle Colin ENGINEERING DRAFTER Unavailable [phone] Encounter Details Date Type Department Care Team [...] on file Legal Sex Male 1:53 AM GUT SNATCHER Gender Identity Male 10/02/2023 12:44 PM CDT [...] COVID: Recovered 11/29/2020 11/29/2020 03/29/2021 3:05 AM GUT SNATCHER COVID: Suspected 10/09/2021 10/09/2021 10/09/2021 9:37 AM CDT COVID: Suspected 03/06/2022 03/06/2022 03/06/2022 9:30 AM GUT SNATCHER RSV, droplet 03/06/2022 03/06/2022 03/13/2022 3:05 AM GUT SNATCHER COVID: Suspected 06/26/2022 06/26/2022 06/26/2022 5:59 PM CDT Coronavirus, droplet 06/26/2022 06/26/2022 023 3:06 AM CDT documented as of this encounter Care Teams Urban Forester Relationship Specialty Start Date End Date Zoila Gleason MD [address] [place] [phone] PCP - General 09/29/16 Rupal Isabel MD 10 [facility] [address] [place] [address] Referring Physician Allergy and Immunology 01/11/19 Rekha Osborne MD [address] [place] [address] Medical Oncologist/Traffic Sign Supervisor Hematology 05/11/20 Mayuri Lyn, RN 4590 [facility] [address] [place], [place] [address] SHOP Outpatient Brand Specialist 12/04/20 01/04/21 Michelle Colin, ENGINEERING DRAFTER 4590 [facility] ([facility] Mailstop [phone] [place] [address] SHOP Outpatient Brand Specialist 10/19/21 11/16/21 documented as of this encounter
--- OUTSIDE RECORDS SUMMARY | 2024-05-27 15:42 | XMS_ITS | Encounter Summary ---
Author Organization [facility] Address [address] [place] [address] Phone Care Team Providers Care Cost Control Analyst Name Role Phone Zoila Gleason MD Primary Care Provider Rupal Isabel MD Unavailable [phone] Rekha Osborne MD Unavailable [phone] Mayuri Lyn RN Unavailable [phone] Michelle Colin JUDGE'S CLERK Unavailable [phone] Encounter Details Date Type Department Care Team [...] on file Legal Sex Male 1:53 AM COMMISSIONED DEFENCE FORCE OFFICER Gender Identity Male 10/02/2023 12:44 PM [...] COVID: Recovered 11/29/2020 11/29/2020 03/29/2021 3:05 AM COMMISSIONED DEFENCE FORCE OFFICER COVID: Suspected 10/09/2021 10/09/2021 10/09/2021 9:37 AM CDT COVID: Suspected 03/06/2022 03/06/2022 03/06/2022 9:30 AM COMMISSIONED DEFENCE FORCE OFFICER RSV, droplet 03/06/2022 03/06/2022 03/13/2022 3:0 5 AM COMMISSIONED DEFENCE FORCE OFFICER COVID: Suspected 06/26/2022 06/26/2022 06/26/2022 5:59 PM CDT Coronavirus, droplet 06/26/2022 06/26/2022 023 3:06 AM CDT documented as of this encounter Care Teams Cost Control Analyst Relationship Specialty Start Date End Date Zoila Gleason MD [address] [place] [address] PCP - General 09/29/16 Rupal Isabel MD [address] [place] [address] [address] [place] [address] Referring Physician Allergy and Immunology 01/11/19 Rekha Osborne MD [address] [place] [address] Medical Oncologist/Electronic Warfare Specialist Hematology 05/11/20 Mayuri Lyn, RN 4590 [facility] [address] [place], [place] [address] LAST Outpatient Mobility Manager 12/04/20 01/04/21 Michelle Colin, ROSALIE 4590 [facility] ([facility]) Mailstop [phone] [place] [address] SHOP Outpatient Mobility Manager 10/19/21 11/16/21 documented as of this encounter
--- OUTSIDE RECORDS SUMMARY | 2024-05-27 15:42 | XMS_ITS | Encounter Summary ---
Author Organization [facility] Address [address] [place] [address] Phone Care Team Providers Care Manager Banking Name Role Phone Zoila Gleason MD Primary Care Provider Rupal Isabel MD Unavailable [phone] Rekha Osborne MD Unavailable [phone] Mayuri Lyn RN Unavailable [phone] Michelle Colin CLINICAL TRIAL LEADER Unavailable [phone] Encounter Details Date Type Department Care Team [...] on file Legal Sex Male 1:53 AM DETHISTLER OPERATOR Gender Identity Male 10/02/2023 12:44 PM [...] COVID: Recovered 11/29/2020 11/29/2020 03/29/2021 3:05 AM DETHISTLER OPERATOR COVID: Suspected 10/09/2021 10/09/2021 10/09/2021 9:37 AM CDT COVID: Suspected 03/06/2022 03/06/2022 03/06/2022 9:30 AM DETHISTLER OPERATOR RSV, droplet 03/06/2022 03/06/2022 03/13/2022 3:05 AM DETHISTLER OPERATOR COVID: Suspected 06/26/2022 06/26/2022 06/26/2022 5:59 PM CDT Coronavirus, droplet 06/26/2022 06/26/2022 023 3:06 AM CDT documented as of this encounter Care Teams Manager Banking Relationship Specialty Start Date End Date Zoila Gleason MD [address] [place] [id number] PCP - General 09/29/16 Rupal Isabel MD 10 [facility] [address] [place] [address] Referring Physician Allergy and Immunology 01/11/19 Rekha Osborne MD [address] [place] [address] Medical Oncologist/Field Administrator Hematology 05/11/20 Mayuri Lyn, RN 4590 [facility] [address] [place], [place] [address] SHOP Outpatient Band Machine Operator 12/04/20 01/04/21 Michelle Colin, CLINICAL TRIAL LEADER 4590 [facility] ([facility] Mailstop [phone] [place] [address] SHOP Outpatient Band Machine Operator 10/19/21 11/16/21 documented as of this encounter
--- OUTSIDE RECORDS SUMMARY | 2024-05-27 15:42 | XMS_ITS | Encounter Summary ---
Author Organization [facility] [facility] Address [address] [place] [address] Phone Care Team Providers Care Train System Operator Name Role Phone Zoila Gleason MD Primary Care Provider [phone] Rupal Isabel MD Unavailable [phone] Rekha Osborne MD Unavailable [phone] Mayuri Lyn RN Unavailable [phone] Michelle ColinW Unavailable [phone] Encounter Details Date Type Department Care Team [...] on file Legal Sex Male 1:53 AM ENVIRONMENTAL AIR SPECIALIST Gender Identity Male 10/02/2023 12:44 PM [...] COVID: Suspected 04/21/2020 04/21/2020 04/21/2020 11:24 AM ENVIRONMENTAL AIR SPECIALIST Respiratory Infection (MICKEY), contact + droplet Comment:Automatically added due to negative COVID-19 result. 04/21/2020 04/21/2020 05/05/2020 3:0 6 AM ENVIRONMENTAL AIR SPECIALIST COVID: Suspected 04/21/2020 04/21/2020 04/21/2020 6:48 PM ENVIRONMENTAL AIR SPECIALIST COVID: Suspected 09/25/2020 09/25/2020 09/25/2020 10:11 AM CDT Rhino/Enterovirus 09/25/2020 09/25/2020 10/02/2020 3:05 AM CDT COVID: Recovered 11/29/2020 11/29/2020 03/29/2021 3:05 AM ENVIRONMENTAL AIR SPECIALIST COVID: Suspected 10/09/2021 10/09/2021 10/09/2021 9:37 AM CDT COVID: Suspected 03/06/2022 03/06/2022 03/06/2022 9:30 AM ENVIRONMENTAL AIR SPECIALIST RSV, droplet 03/06/2022 03/06/2022 03/13/2022 3:05 AM ENVIRONMENTAL AIR SPECIALIST COVID: Suspected 06/26/2022 06/26/2022 06/26/2022 5:59 PM CDT Coronavirus, droplet 06/26/2022 06/26/2022 023 3:06 AM CDT documented as of this encounter Care Teams Train System Operator Relationship Specialty Start Date End Date Zoila Gleason MD [address] [place] [address] PCP - General 09/29/16 Rupal Isabel MD 10 [facility] [address] [place] [address] Referring Physician Allergy and Immunology 01/11/19 Rekha Osborne MD [address] [place] [address] Medical Oncologist/Batching Operator Hematology 05/11/20 Mayuri Lyn, RN 4590 [facility] 5300 [place] [address] SHOP Outpatient Hebrew Teacher 12/04/20 01/04/21 Michelle Colin LCSW 4590 [facility] ([facility] Mailstop [phone] [place] [address] SHOP Outpatient Hebrew Teacher 10/19/21 11/16/21 documented as of this encounter
--- OUTSIDE RECORDS SUMMARY | 2024-05-27 15:42 | XMS_ITS | Encounter Summary ---
Author Organization [facility] Healthcare Address [address] [place] [address] Care Team Providers Care Field Marketing Associate Name Role Phone Zoila Gleason MD Primary Care Provider Rupal Isabel MD Unavailable Rekha Osborne MD Unavailable [phone] Mayuri Lyn RN Unavailable [phone] Michelle ColinW Unavailable [phone] Encounter Details Date Type Department Care Team (Late st Contact Info) Description 11/12/2020 Telephone [facility] Imaging [address] [place] [address] Aiyana Lovelace RN Social History [...] on file Legal Sex Male 1:53 AM MEDIA LAW FACULTY MEMBER Gender Identity Male 10/02/2023 12:44 PM CDT Sexual Orientation Don't know 11/15/2020 1: 06 PM CDT documented as of this encounter Plan of Treatment Not on file documented as of this encounter Visit Diagnoses Not on filedocumented in this encounter Additional Health Concerns Infection Onset Date Last Indicated Resolved Time COVID: Recovered 11/29/2020 11/29/2020 03/29/2021 3:05 AM MEDIA LAW FACULTY MEMBER COVID: Suspected 10/09/2021 10/09/2021 10/09/2021 9:37 AM CDT COVID: Suspected 03/06/2022 03/06/2022 03/06/2022 9:30 AM MEDIA LAW FACULTY MEMBER RSV, droplet 03/06/2022 03/06/2022 03/13/2022 3:05 AM MEDIA LAW FACULTY MEMBER COVID: Suspected 06/26/2022 06/26/2022 06/26/2022 5:59 PM CDT Coronavirus, droplet 06/26/2022 06/26/2022 023 3:06 AM CDT documented as of this encounter Care Teams Field Marketing Associate Relationship Specialty Start Date End Date Zoila Gleason MD [address] [place] [address] PCP - General 09/29/16 Rupal Isabel MD 10 [facility] [address] [place] [address] Referring Physician Allergy and Immunology 01/11/19 Rekha Osborne MD [address] [place] [address] Medical Oncologist/Laminator Hematology 05/11/20 Mayuri Lyn, RN 4590 [facility] [address] [place] [address] SHOP Outpatient Rubber Mold Maker 12/04/20 01/04/21 Michelle Colin LCSW 4590 [facility] ([facility] Mailstop [phone] [place] [address] SHOP Outpatient Rubber Mold Maker 10/19/21 11/16/21 documented as of this encounter
--- OUTSIDE RECORDS SUMMARY | 2024-05-27 15:42 | XMS_ITS | Encounter Summary ---
Author Organization [facility] Address [address] [place] [address] Phone Care Team Providers Care Pin Maker Name Role Phone Zoila Gleason MD Primary Care Provider Rupal Isabel MD Unavailable [phone] Rekha Osborne MD Unavailable [phone] Mayuri Lyn RN Unavailable [phone] Michelle Colin CELERY PACKER Unavailable [phone] Encounter Details Date Type Department Care Team [...] on file Legal Sex Male 1:53 AM COAL TOWER OPERATOR Gender Identity Male 10/02/2023 12:44 PM [...] COVID: Recovered 11/29/2020 11/29/2020 03/29/2021 3:05 AM COAL TOWER OPERATOR COVID: Suspected 10/09/2021 10/09/2021 10/09/2021 9:37 AM CDT COVID: Suspected 03/06/2022 03/06/2022 03/06/2022 9:30 AM COAL TOWER OPERATOR RSV, droplet 03/06/2022 03/06/2022 03/13/2022 3:05 AM COAL TOWER OPERATOR COVID: Suspected 06/26/2022 06/26/2022 06/26/2022 5:59 PM CDT Coronavirus, droplet 06/26/2022 06/26/2022 023 3:06 AM CDT documented as of this encounter Care Teams Pin Maker Relationship Specialty Start Date End Date Zoila Gleason MD [address] [place] [id number] PCP - General 09/29/16 Rupal Isabel MD 10 [facility] [address] [place] [address] Referring Physician Allergy and Immunology 01/11/19 Rekha Osborne MD [address] [place] [address] Medical Oncologist/Stewarding Supervisor Hematology 05/11/20 Mayuri Lyn, RN 4590 [facility] [address] [place], [place] [address] SHOP Outpatient Bottom Liner 12/04/20 01/04/21 Michelle Colin, CELERY PACKER 4590 [facility] ([facility]) Mailstop [phone] [place] [address] SHOP Outpatient Bottom Liner 10/19/21 11/16/21 documented as of this encounter
--- OUTSIDE RECORDS SUMMARY | 2024-05-27 15:42 | XMS_ITS | Encounter Summary ---
Author Organization [facility] Healthcare Address [address] [place] [address] Care Team Providers Care Rotary Furnace Tender Name Role Phone Zoila Gleason MD Primary Care Provider Rupal Isabel MD Unavailable [phone] Rekha Osborne MD Unavailable Mayuri Lyn RN Unavailable [phone] Michelle Colin LCSW Unavailable Encounter Details Date Type Department Care Team (Late st Contact Info) Description 03/31/2020 Telephone [facility] [place] [address] Wendy Storm, [place] Social History [...] on file Legal Sex Male 1:53 AM GAME MASTER Gender Identity Male 10/02/2023 12:44 PM CDT Sexual Orientation Don't know 11/15/2020 1: 06 PM CDT documented as of this encounter Plan of Treatment Not on file documented as of this encounter Visit Diagnoses Not on filedocumented in this encounter Additional Health Concerns Infection Onset Date Last Indicated Resolved Time COVID: Suspected 04/21/2020 04/21/2020 04/21/2020 11:24 AM GAME MASTER Respiratory Infection (MICKEY), contact + droplet Comment:Automatically added due to negative COVID-19 result. 04/21/2020 04/21/2020 05/05/2020 3:0 6 AM GAME MASTER COVID: Suspected 04/21/2020 04/21/2020 04/21/2020 6:48 PM GAME MASTER COVID: Suspected 09/25/2020 09/25/2020 09/25/2020 10:11 AM CDT Rhino/Enterovirus 09/25/2020 09/25/2020 10/02/2020 3:05 AM CDT COVID: Recovered 11/29/2020 11/29/2020 03/29/2021 3:05 AM GAME MASTER COVID: Suspected 10/09/2021 10/09/2021 10/09/2021 9:37 AM CDT COVID: Suspected 03/06/2022 03/06/2022 03/06/2022 9:30 AM GAME MASTER RSV, droplet 03/06/2022 03/06/2022 03/13/2022 3:05 AM GAME MASTER COVID: Suspected 06/26/2022 06/26/2022 06/26/2022 5:59 PM CDT Coronavirus, droplet 06/26/2022 06/26/2022 023 3:06 AM CDT documented as of this encounter Care Teams Rotary Furnace Tender Relationship Specialty Start Date End Date Zoila Gleason MD [address] [place] [address] PCP - General 09/29/16 Rupal Isabel MD 10 [facility] [address] [place] [address] Referring Physician Allergy and Immunology 01/11/19 Rekha Osborne MD [address] [place] [address] Medical Oncologist/Health Care Consultant Hematology 05/11/20 Mayuri Lyn, RN 4590 [facility] [address] [place] [address] LAST Outpatient Rubber Tire Curer 12/04/20 01/04/21 Michelle Colin LCSW 4590 [facility] ([facility]) Mailstop [phone] [place] [address] LAST Outpatient Rubber Tire Curer 10/19/21 11/16/21 documented as of this encounter
--- OUTSIDE RECORDS SUMMARY | 2024-05-27 15:42 | XMS_ITS | Encounter Summary ---
Author Organization [facility] Address [address] [place] [address] Phone Care Team Providers Care Mortgage Loan Originator Name Role Phone Zoila Gleason MD Primary Care Provider Rupal Isabel MD Unavailable [phone] Rekha Osborne MD Unavailable [phone] Mayuri Lyn RN Unavailable [phone] Michelle Colin SHANK FAKER Unavailable [phone] Encounter Details Date Type Department Care Team [...] on file Legal Sex Male 1:53 AM SHOTWELD OPERATOR Gender Identity Male 10/02/2023 12:44 PM [...] COVID: Recovered 11/29/2020 11/29/2020 03/29/2021 3:05 AM SHOTWELD OPERATOR COVID: Suspected 10/09/2021 10/09/2021 10/09/2021 9:37 AM CDT COVID: Suspected 03/06/2022 03/06/2022 03/06/2022 9:30 AM SHOTWELD OPERATOR RSV, droplet 03/06/2022 03/06/2022 03/13/2022 3:05 AM SHOTWELD OPERATOR COVID: Suspected 06/26/2022 06/26/2022 06/26/2022 5:59 PM CDT Coronavirus, droplet 06/26/2022 06/26/2022 023 3:06 AM CDT documented as of this encounter Care Teams Mortgage Loan Originator Relationship Specialty Start Date End Date Zoila Gleason MD [address] [place] [phone] PCP - General 09/29/16 Rupal Isabel MD 10 [facility] [address] [place] [address] Referring Physician Allergy and Immunology 01/11/19 Rekha Osborne MD [address] [place] [address] Medical Oncologist/Lockstitch Tunnel Elastic Operator Hematology 05/11/20 Mayuri Lyn, RN 4590 [facility] [address] [place], [place] [address] SHOP Outpatient Message Broker Developer 12/04/20 01/04/21 Michelle Colin, SHANK FAKER 4590 [facility] ([facility]) Mailstop [phone] [place] [address] SHOP Outpatient Message Broker Developer 10/19/21 11/16/21 documented as of this encounter
[2024-05-27 19:18] LABS: Basophils Absolute Auto 0.2 K/mm3 (0.0-0.1); Basophils Percent Auto 1.6 % (0.2-1.2); Eosinophils Absolute Auto 0.1 K/mm3 (0-0.3); Eosinophils Percent Auto 0.4 % (0-4.4); Hematocrit 50.1 % (42.0-52.0); Immature Granulocyte Percent A 0.8 % (0-0.5); Immature Platelet Fraction Pct 13.6 % (0.9-11.2); Lymphocytes Absolute Auto 1.87 K/mm3 (0.9-3.2); Lymphocytes Percent Auto 15.3 % (18.3-44.2); Mean Corpuscular HGB Conc 31.9 g/dl (32-36); Mean Corpuscular Hemoglobin 31.6 pg (26-34); Mean Corpuscular Volume 98.8 fl (80-100); Mean Platelet Volume 13.3 fl (7.4-10.4); Monocytes Absolute Auto 0.7 K/mm3 (0.1-0.6); Neutrophils Absolute Auto 9.2 K/mm3 (1.3-6.7); Neutrophils Percent Auto 75.9 % (45.5-73.1); Nucleated Red Blood Cells Perc 0.2 % (0.0-0.2); Platelet Count Result 115 k/mm3 (150-375); Red Blood Count 5.07 M/mm3 (4.6-6.20); Red Cell Distribution Width 17.6 % (11.5-14.5); White Blood Count 12.2 K/mm3 (4.5-10.0)
== END 2024-05-27 13:41 | disposition home or self-care (01) ==
LOC: ANHGOSHLAB 13:41
PROVIDERS: PCP Pediatrics; Visit Provider Internal Medicine
DX: D69.6 Thrombocytopenia, unspecified (principal)
CPT/HCPCS: 36415; 85025; 85055

== ENCOUNTER 2024-06-10 13:36 | Outpatient (CLI) | payer BC, MEDICAID, SELFPAY ==
[2024-06-10 13:56] LABS: Hemoglobin 16.3 g/dL (14.0-18.0); Immature Platelet Fraction Pct 18.4 % (0.9-11.2); Mean Corpuscular HGB Conc 33.3 g/dl (32-36); Mean Corpuscular Volume 96.3 fl (80-100); Mean Platelet Volume 13.8 fl (7.4-10.4); Platelet Count Result 68 k/mm3 (150-375); Red Blood Count 5.09 M/mm3 (4.6-6.20); Red Cell Distribution Width 16.9 % (11.5-14.5); White Blood Count 15.1 K/mm3 (4.5-10.0)
[2024-06-10 14:34] LABS: Band Neutrophils Percent 3 % (0-6); Eosinophils Percent Manual 2 % (0-4); Monocytes Percent Manual 4 % (3-9); Neutrophils Absolute Manual 12.98 K/mm3 (1.3-6.7); Neutrophils Percent Manual 83 % (46-73); Platelet Estimate Decreased (Adequate); Total Cells Counted 100
[2024-06-10 14:35] LABS: Anisocytosis 2+; Schistocytes None Seen
--- OUTSIDE RECORDS SUMMARY | 2024-06-10 15:39 | XMS_ITS | Clinical Summary ---
Author Organization [employer] [facility] Address [address] [place] [address] Care Team Providers Care Wildlife Removal Specialist Name Role Phone Unavailable Primary Care Provider [...] WEEKS. 24 Packet 1 03/02/2023 2:48 PM ANIMAL TECH 3 Active clindamycin phosphate (CLEOCIN T) 1 [...] procedure 4 Capsule 1 03/02/2023 2:45 PM ANIMAL TECH 3 Active docusate sodium (COLACE) 100 mg capsule Take one capsule (100 mg) orally twice a day 60 Capsule 3 03/14/2023 12:03 PM ANIMAL TECH 3 Active levothyroxine 112 mcg tablet Take one tablet (112 mcg) orally every morning 90 Tablet 2 03/14/2023 12:03 PM ANIMAL TECH 3 Active pantoprazole (PROTONIX) 40 mg Tablet, Delayed Release (E.C.) Take one tablet (40 mg) orally daily 60 Tablet 03/14/2023 12:03 PM ANIMAL TECH 3 Active sertraline (ZOLOFT) 100 mg tablet Take one tablet (50 mg) orally daily 90 Tablet 3 3 Active hydrocortisone sod succ, PF, (Solu-CORTEF Act-O-Vial, PF,) 100 mg/2 mL Recon Soln Inject 2 mL (100 mg) by intramuscular injection 1 time daily as needed for adrenal crisis. 10 Each 2 04/17/2023 6:40 PM ANIMAL TECH 4 Active apixaban (Eliquis) 5 mg tablet Take 1 Tablet (5 mg) by mouth 2 times daily. 30 Tablet 1 04/08/2023 4:00 PM ANIMAL TECH 4 Active nirmatrelvir-r itonavir (Paxlovid) 300(150mg x 2)-100 mg oral pack TAKE 2 TABLETS OF NIRMATRELVIR AND 1 TABLET OF RITONAVIR BY MOUTH TWICE DAILY FOR 5 DAYS 30 Each 4 Active predniSONE (DELTASONE) 1 mg tablet TAKE 1-4 TABLETS BY MOUTH DAILY DIRECTED BY PHYSICIAN. TAKE WITH 5 MG DAILY. 120 Tablet 2 04/25/2023 2:35 PM ANIMAL TECH 4 Active nirmatrelvir-r itonavir (Paxlovid) 300(150mg x [...] failure. 90 Tablet 2 04/25/2023 2:35 PM ANIMAL TECH 4 Active Immunizations Immunization Administration Dates Next [...]
--- OUTSIDE RECORDS SUMMARY | 2024-06-10 15:39 | XMS_ITS | Encounter Summary ---
Author Organization [facility] Address [address] [place] [address] Phone Care Team Providers Care Supervisor Felting Name Role Phone Zoila Gleason MD Primary Care Provider [phone] Rupal Isabel MD Unavailable [phone] Rekha Osborne MD Unavailable [phone] Encounter Details Date Type Department Care Team [...] any clubs o r organizations such as holiness groups, unions, fraternal or athletic groups, or [...] on file Legal Sex Male 1:53 AM LAY OUT HELPER Gender Identity Male 10/02/2023 12:44 PM [...] as of this encounter Care Teams Supervisor Felting Relationship Specialty Start Date End Date Zoila Gleason MD [address] [place] [address] PCP - General 09/29/16 Rupal Isabel MD 10 [facility] [address] [place] [address] Referring Physician Allergy and Immunology 01/11/19 Rekha Osborne MD [address] [place] [address] Medical Oncologist/Earth Science Laboratory Technician Hematology 05/11/20 documented as of this encounter
--- OUTSIDE RECORDS SUMMARY | 2024-06-10 15:40 | XMS_ITS | Encounter Summary ---
Author Organization [facility] Healthcare Address [address] [place] [address] Care Team Providers Care Plan Checker Name Role Phone Zoila Gleason MD Primary Care Provider Rupal Isabel MD Unavailable Rekha Osborne MD Unavailable [phone] Mayuri Lyn RN Unavailable Michelle ColinW Unavailable [phone] Encounter Details Date Type Department Care Team (Late st Contact Info) Description 11/12/2020 Telephone [facility] Imaging [address] [place] [address] Aiyana Lovelace RN Social History [...] on file Legal Sex Male 1:53 AM COTTON CLEANER Gender Identity Male 10/02/2023 12:44 PM CDT Sexual Orientation Don't know 11/15/2020 1: 06 PM CDT documented as of this encounter Plan of Treatment Not on file documented as of this encounter Visit Diagnoses Not on filedocumented in this encounter Additional Health Concerns Infection Onset Date Last Indicated Resolved Time COVID: Recovered 11/29/2020 11/29/2020 03/29/2021 3:05 AM COTTON CLEANER COVID: Suspected 10/09/2021 10/09/2021 10/09/2021 9:37 AM CDT COVID: Suspected 03/06/2022 03/06/2022 03/06/2022 9:30 AM COTTON CLEANER RSV, droplet 03/06/2022 03/06/2022 03/13/2022 3:05 AM COTTON CLEANER COVID: Suspected 06/26/2022 06/26/2022 06/26/2022 5:59 PM CDT Coronavirus, droplet 06/26/2022 06/26/2022 023 3:06 AM CDT documented as of this encounter Care Teams Plan Checker Relationship Specialty Start Date End Date Zoila Gleason MD [address] [place] [address] PCP - General 09/29/16 Rupal Isabel MD 10 [facility] [address] [place] [address] Referring Physician Allergy and Immunology 01/11/19 Rekha Osborne MD [address] [place] [address] Medical Oncologist/Featheredger And Reducer Machine Hematology 05/11/20 Mayuri Lyn, RN 4590 [facility] [address] [place] [address] SHOP Outpatient Milling Operator 12/04/20 01/04/21 Michelle Colin LCSW 4590 [facility] ([facility] Mailstop [phone] [place] [address] SHOP Outpatient Milling Operator 10/19/21 11/16/21 documented as of this encounter
--- OUTSIDE RECORDS SUMMARY | 2024-06-10 15:40 | XMS_ITS | Encounter Summary ---
Author Organization [facility] Address [address] [place] [address] Phone Care Team Providers Care Garageman Name Role Phone Zoila Gleason MD Primary Care Provider Rupal Isabel MD Unavailable [phone] Rekha Osborne MD Unavailable [phone] Mayuri Lyn RN Unavailable [phone] Michelle Colin GAS SPECIALIST Unavailable [phone] Encounter Details Date Type Department Care Team [...] on file Legal Sex Male 1:53 AM VP CUSTOMER SERVICE Gender Identity Male 10/02/2023 12:44 PM CDT [...] COVID: Recovered 11/29/2020 11/29/2020 03/29/2021 3:05 AM VP CUSTOMER SERVICE COVID: Suspected 10/09/2021 10/09/2021 10/09/2021 9:37 AM CDT COVID: Suspected 03/06/2022 03/06/2022 03/06/2022 9:30 AM VP CUSTOMER SERVICE RSV, droplet 03/06/2022 03/06/2022 03/13/2022 3:05 AM VP CUSTOMER SERVICE COVID: Suspected 06/26/2022 06/26/2022 06/26/2022 5:59 PM CDT Coronavirus, droplet 06/26/2022 06/26/2022 023 3:06 AM CDT documented as of this encounter Care Teams Garageman Relationship Specialty Start Date End Date Zoila Gleason MD [address] [place] [address] PCP - General 09/29/16 Rupal Isabel MD [address] [place] [address] [address] [place] [address] Referring Physician Allergy and Immunology 01/11/19 Rekha Osborne MD [address] [place] [address] Medical Oncologist/Battery Wrecker Operator Hematology 05/11/20 Mayuri Lyn, RN 4590 [facility] [address] [place], [place] [address] LAST Outpatient Electrical Appliance Repairer 12/04/20 01/04/21 Michelle Colin, GAS SPECIALIST 4590 [facility] ([facility]) Mailstop [phone] [place] [address] LAST Outpatient Electrical Appliance Repairer 10/19/21 11/16/21 documented as of this encounter
--- OUTSIDE RECORDS SUMMARY | 2024-06-10 15:40 | XMS_ITS | Encounter Summary ---
Author Organization [facility] Address [address] [place] [address] Phone Care Team Providers Care Revenue Stamp Cutter Name Role Phone Zoila Gleason MD Primary Care Provider Rupal Isabel MD Unavailable [phone] Rekha Osborne MD Unavailable [phone] Mayuri Lyn RN Unavailable [phone] Michelle Colin DECORATOR CONSULTANT Unavailable [phone] Encounter Details Date Type Department Care Team [...] file Legal Sex Male 1:53 AM SOFTWARE PROGRAMMER Gender Identity Male 10/02/2023 12:44 PM CDT [...] COVID: Suspected 04/21/2020 04/21/2020 04/21/2020 11:24 AM SOFTWARE PROGRAMMER Respiratory Infection (MICKEY), contact + droplet Comment:Automatically added due to negative COVID-19 result. 04/21/2020 04/21/2020 05/05/2020 3:0 6 AM SOFTWARE PROGRAMMER COVID: Suspected 04/21/2020 04/21/2020 04/21/2020 6:48 PM SOFTWARE PROGRAMMER COVID: Suspected 09/25/2020 09/25/2020 09/25/2020 10:11 AM CDT Rhino/Enterovirus 09/25/2020 09/25/2020 10/02/2020 3:05 AM CDT COVID: Recovered 11/29/2020 11/29/2020 03/29/2021 3:05 AM SOFTWARE PROGRAMMER COVID: Suspected 10/09/2021 10/09/2021 10/09/2021 9:37 AM CDT COVID: Suspected 03/06/2022 03/06/2022 03/06/2022 9:30 AM SOFTWARE PROGRAMMER RSV, droplet 03/06/2022 03/06/2022 03/13/2022 3:05 AM SOFTWARE PROGRAMMER COVID: Suspected 06/26/2022 06/26/2022 06/26/2022 5:59 PM CDT Coronavirus, droplet 06/26/2022 06/26/2022 023 3:06 AM CDT documented as of this encounter Care Teams Revenue Stamp Cutter Relationship Specialty Start Date End Date Zoila Gleason MD [address] [place] [address] PCP - General 09/29/16 Rupal Isabel MD 10 [facility] [address] [place] [address] Referring Physician Allergy and Immunology 01/11/19 Rekha Osborne MD [address] [place] [address] Medical Oncologist/Eddy Current Inspector Hematology 05/11/20 Mayuri Lyn, RN 4590 [facility] [address] [place] [address] SHOP Outpatient Application Integration Engineer 12/04/20 01/04/21 Michelle Colin LCSW 4590 [facility] ([facility]) Mailstop [phone] [place] [address] SHOP Outpatient Application Integration Engineer 10/19/21 11/16/21 documented as of this encounter
--- OUTSIDE RECORDS SUMMARY | 2024-06-10 15:40 | XMS_ITS | Encounter Summary ---
Author Organization [facility] Address [address] [place] [address] Phone Care Team Providers Care Filament Welder Name Role Phone Zoila Gleason MD Primary Care Provider Rupal Isabel MD Unavailable [phone] Rekah Osborne MD Unavailable [phone] Mayuri Lyn RN Unavailable [phone] Michelle Colin FIELD IDENTIFICATION SPECIALIST Unavailable [phone] Encounter Details Date Type Department Care Team [...] on file Legal Sex Male 1:53 AM EMERGENCY VEHICLE OPERATIONS INSTRUCTOR Gender Identity Male 10/02/2023 12:44 PM CDT [...] COVID: Recovered 11/29/2020 11/29/2020 03/29/2021 3:05 AM EMERGENCY VEHICLE OPERATIONS INSTRUCTOR COVID: Suspected 10/09/2021 10/09/2021 10/09/2021 9:37 AM CDT COVID: Suspected 03/06/2022 03/06/2022 03/06/2022 9:30 AM EMERGENCY VEHICLE OPERATIONS INSTRUCTOR RSV, droplet 03/06/2022 03/06/2022 03/13/2022 3:05 AM EMERGENCY VEHICLE OPERATIONS INSTRUCTOR COVID: Suspected 06/26/2022 06/26/2022 06/26/2022 5:59 PM CDT Coronavirus, droplet 06/26/2022 06/26/2022 023 3:06 AM CDT documented as of this encounter Care Teams Filament Welder Relationship Specialty Start Date End Date Zoila Gleason MD [address] [place] [address] PCP - General 09/29/16 Rupal Isabel MD [address] [place] [address] [address] [place] [address] Referring Physician Allergy and Immunology 01/11/19 Rekha Osborne MD [address] [place] [address] Medical Oncologist/Refueling Rampman Hematology 05/11/20 Mayuri yLn, RN 4590 [facility] [address] [place], [place] [address] LAST Outpatient Mathematics Instructor 12/04/20 01/04/21 Michelle Colin, FIELD IDENTIFICATION SPECIALIST 4590 [facility] ([facility]) Mailstop [phone] [place] [address] LAST Outpatient Mathematics Instructor 10/19/21 11/16/21 documented as of this encounter
--- OUTSIDE RECORDS SUMMARY | 2024-06-10 15:40 | XMS_ITS | Encounter Summary ---
Author Organization [facility] Address [address] [place] [address] Phone Care Team Providers Care Anesthesiologist And Critical Care Name Role Phone Zoila Gleason MD Primary Care Provider [phone] Rupal Isabel MD Unavailable [phone] Rekha Osborne MD Unavailable [phone] Mayuri Lyn RN Unavailable [phone] Michelle Colin VISITOR SERVICES INFORMATION ASSISTANT Unavailable [phone] Encounter Details Date Type Department Care Team [...] on file Legal Sex Male 1:53 AM POWERHOUSE ELECTRICIAN APPRENTICE Gender Identity Male 10/02/2023 12:44 PM CDT [...] COVID: Recovered 11/29/2020 11/29/2020 03/29/2021 3:05 AM POWERHOUSE ELECTRICIAN APPRENTICE COVID: Suspected 10/09/2021 10/09/2021 10/09/2021 9:37 AM CDT COVID: Suspected 03/06/2022 03/06/2022 03/06/2022 9:30 AM POWERHOUSE ELECTRICIAN APPRENTICE RSV, droplet 03/06/2022 03/06/2022 03/13/2022 3:05 AM POWERHOUSE ELECTRICIAN APPRENTICE COVID: Suspected 06/26/2022 06/26/2022 06/26/2022 5:59 PM CDT Coronavirus, droplet 06/26/2022 06/26/2022 023 3:06 AM CDT documented as of this encounter Care Teams Anesthesiologist And Critical Care Relationship Specialty Start Date End Date Zoila Gleason MD [address] [address] PCP - General 09/29/16 Rupal Isabel MD [address] [place] [address] [address] [place] [address] Referring Physician Allergy and Immunology 01/11/19 Rekha Osborne MD [address] [place] [address] Medical Oncologist/Social Worker Health Services Hematology 05/11/20 Mayuri Lyn, RN 4590 [facility] [address] [place], [place] [address] LAST Outpatient Sales And Training Specialist 12/04/20 01/04/21 Michelle Colin, VISITOR SERVICES INFORMATION ASSISTANT 4590 [facility] ([facility]) Mailstop [phone] [place] [address] LAST Outpatient Sales And Training Specialist 10/19/21 11/16/21 documented as of this encounter
--- OUTSIDE RECORDS SUMMARY | 2024-06-10 15:40 | XMS_ITS | Encounter Summary ---
Author Organization [facility] Address [address] [place] [address] Phone Care Team Providers Care Overlock Collar Setter Name Role Phone Zoila Gleason MD Primary Care Provider [phone] Rupal Isabel MD Unavailable [phone] Rekha Osborne MD Unavailable [phone] Mayuri Lyn RN Unavailable [phone] Michelle ColinW Unavailable [phone] Encounter Details Date Type Department Care Team [...] than three times a week 12/10/2020 Attends [employer] Not on file 12/10 Active Member [...] slept in a fdc (including now)? No 12/10/2020 Sex and Gender Information Value Date Recorded Sex Assigned at Not on file Legal Sex Male 1:53 AM MERCHANDISE ADJUSTMENT CLERK Gender Identity Male 10/02/2023 12:44 PM CDT [...] COVID: Recovered 11/29/2020 11/29/2020 03/29/2021 3:05 AM MERCHANDISE ADJUSTMENT CLERK COVID: Suspected 10/09/2021 10/09/2021 10/09/2021 9:37 AM CDT COVID: Suspected 03/06/2022 03/06/2022 03/06/2022 9:30 AM MERCHANDISE ADJUSTMENT CLERK RSV, droplet 03/06/2022 03/06/2022 03/13/2022 3:05 AM MERCHANDISE ADJUSTMENT CLERK COVID: Suspected 06/26/2022 06/26/2022 06/26/2022 5:59 PM CDT Coronavirus, droplet 06/26/2022 06/26/2022 023 3:06 AM CDT documented as of this encounter Care Teams Overlock Collar Setter Relationship Specialty Start Date End Date Zoila Gleason MD [address] [place] [address] PCP - General 09/29/16 Rupal Isabel MD [address] [facility] [address] [place] [address] Referring Physician Allergy and Immunology 01/11/19 Rekha Osborne MD [address] [place] [address] Medical Oncologist/Dip Tanker Hematology 05/11/20 Mayuri Lyn, RN [address] [facility] [address] [place] [address] SHOP Outpatient Scrubber System Attendant 12/04/20 01/04/21 Michelle Colin LCSW 45[address] [facility] ([facility] Mailstop [phone] [place] [address] SHOP Outpatient Scrubber System Attendant 10/19/21 11/16/21 documented as of this encounter
--- OUTSIDE RECORDS SUMMARY | 2024-06-10 15:40 | XMS_ITS | Encounter Summary ---
Author Organization [facility] [employer] [facility] Address [address] [place] [address] Phone Care Team Providers Care Plant Senior Manager Name Role Phone Zoila Gleason MD Primary Care Provider Rupal Isabel MD Unavailable [phone] Rekha Osborne MD Unavailable [phone] Mayuri Lyn RN Unavailable [phone] Michelle Colin HOT MILL WORKER Unavailable [phone] Encounter Details Date Type Department Care Team [...] on file Legal Sex Male 1:53 AM CERTIFIED CODER Gender Identity Male 10/02/2023 12:44 PM CDT [...] COVID: Suspected 04/21/2020 04/21/2020 04/21/2020 11:24 AM CERTIFIED CODER Respiratory Infection (MICKEY), contact + droplet Comment:Automatically added due to negative COVID-19 result. 04/21/2020 04/21/2020 05/05/2020 3:0 6 AM CERTIFIED CODER COVID: Suspected 04/21/2020 04/21/2020 04/21/2020 6:48 PM CERTIFIED CODER COVID: Suspected 09/25/2020 09/25/2020 09/25/2020 10:11 AM CDT Rhino/Enterovirus 09/25/2020 09/25/2020 10/02/2020 3:05 AM CDT COVID: Recovered 11/29/2020 11/29/2020 03/29/2021 3:05 AM CERTIFIED CODER COVID: Suspected 10/09/2021 10/09/2021 10/09/2021 9:37 AM CDT COVID: Suspected 03/06/2022 03/06/2022 03/06/2022 9:30 AM CERTIFIED CODER RSV, droplet 03/06/2022 03/06/2022 03/13/2022 3:05 AM CERTIFIED CODER COVID: Suspected 06/26/2022 06/26/2022 06/26/2022 5:59 PM CDT Coronavirus, droplet 06/26/2022 06/26/2022 023 3:06 AM CDT documented as of this encounter Care Teams Plant Senior Manager Relationship Specialty Start Date End Date Zoila Gleason MD [address] [place] [address] PCP - General 09/29/16 Rupal Isabel MD [address] [place] [address] [facility] [address] [place] [address] Referring Physician Allergy and Immunology 01/11/19 Rekha Osborne MD [address] [place] [address] Medical Oncologist/Management Specialist Hematology 05/11/20 Mayuri Lyn, RN [address] [facility] [address] [place] [address] SHOP Outpatient Motorsports Technician 12/04/20 01/04/21 Michelle Colin LCSW 65[address] [facility] ([facility] [place]) Mailstop [phone] [place] [address] SHOP Outpatient Motorsports Technician 10/19/21 11/16/21 documented as of this encounter
--- OUTSIDE RECORDS SUMMARY | 2024-06-10 15:40 | XMS_ITS | Encounter Summary ---
Author Organization [facility] [employer] [facility] Address [address] [place] [address] Phone Care Team Providers Care Laundrette Owner Name Role Phone Zoila Gleason MD Primary Care Provider Rupal Isabel MD Unavailable [phone] Rekha Osborne MD Unavailable [phone] Mayuri Lyn RN Unavailable [phone] Michelle Colin S3B MULTI SENSOR OPERATOR Unavailable [phone] Encounter Details Date Type Department Care Team [...] on file Legal Sex Male 1:53 AM CONDUCTOR SYMPHONIC ORCHESTRA Gender Identity Male 10/02/2023 12:44 PM CDT [...] COVID: Suspected 04/21/2020 04/21/2020 04/21/2020 11:24 AM CONDUCTOR SYMPHONIC ORCHESTRA Respiratory Infection (MICKEY), contact + droplet Comment:Automatically added due to negative COVID-19 result. 04/21/2020 04/21/2020 05/05/2020 3:0 6 AM CONDUCTOR SYMPHONIC ORCHESTRA COVID: Suspected 04/21/2020 04/21/2020 04/21/2020 6:48 PM CONDUCTOR SYMPHONIC ORCHESTRA COVID: Suspected 09/25/2020 09/25/2020 09/25/2020 10:11 AM CDT Rhino/Enterovirus 09/25/2020 09/25/2020 10/02/2020 3:05 AM CDT COVID: Recovered 11/29/2020 11/29/2020 03/29/2021 3:05 AM CONDUCTOR SYMPHONIC ORCHESTRA COVID: Suspected 10/09/2021 10/09/2021 10/09/2021 9:37 AM CDT COVID: Suspected 03/06/2022 03/06/2022 03/06/2022 9:30 AM CONDUCTOR SYMPHONIC ORCHESTRA RSV, droplet 03/06/2022 03/06/2022 03/13/2022 3:05 AM CONDUCTOR SYMPHONIC ORCHESTRA COVID: Suspected 06/26/2022 06/26/2022 06/26/2022 5:59 PM CDT Coronavirus, droplet 06/26/2022 06/26/2022 023 3:06 AM CDT documented as of this encounter Care Teams Laundrette Owner Relationship Specialty Start Date End Date Zoila Gleason MD [address] [place] [address] PCP - General 09/29/16 Rupal Isabel MD [address] [place] [address] [facility] [address] [place] [address] Referring Physician Allergy and Immunology 01/11/19 Rekha Osborne MD [address] [place] [address] Medical Oncologist/Transfer And Pumphouse Operator Chief Hematology 05/11/20 Mayuri Lyn, RN [address] [facility] [address] [place] [address] SHOP Outpatient Software Programmer 12/04/20 01/04/21 Michelle Colin LCSW 8[address] [facility] [place] Mailstop [phone] [place] [address] SHOP Outpatient Software Programmer 10/19/21 11/16/21 documented as of this encounter
--- OUTSIDE RECORDS SUMMARY | 2024-06-10 15:40 | XMS_ITS | Encounter Summary ---
Author Organization [facility] [employer] [facility] Address [address] [place] [address] Phone Care Team Providers Care College Intern Name Role Phone Zoila Gleason MD Primary Care Provider [phone] Rupal Isabel MD Unavailable [phone] Rekha Osborne MD Unavailable [phone] Mayuri Lyn RN Unavailable [phone] Michelle Colin COMPANY TRUCK DRIVER Unavailable [phone] Encounter Details Date Type Department Care Team [...] on file Legal Sex Male 1:53 AM COMPLIANCE AUDITOR Gender Identity Male 10/02/2023 12:44 PM CDT [...] COVID: Suspected 04/21/2020 04/21/2020 04/21/2020 11:24 AM COMPLIANCE AUDITOR Respiratory Infection (MICKEY), contact + droplet Comment:Automatically added due to negative COVID-19 result. 04/21/2020 04/21/2020 05/05/2020 3:0 6 AM COMPLIANCE AUDITOR COVID: Suspected 04/21/2020 04/21/2020 04/21/2020 6:48 PM COMPLIANCE AUDITOR COVID: Suspected 09/25/2020 09/25/2020 09/25/2020 10:11 AM CDT Rhino/Enterovirus 09/25/2020 09/25/2020 10/02/2020 3:05 AM CDT COVID: Recovered 11/29/2020 11/29/2020 03/29/2021 3:05 AM COMPLIANCE AUDITOR COVID: Suspected 10/09/2021 10/09/2021 10/09/2021 9:37 AM CDT COVID: Suspected 03/06/2022 03/06/2022 03/06/2022 9:30 AM COMPLIANCE AUDITOR RSV, droplet 03/06/2022 03/06/2022 03/13/2022 3:05 AM COMPLIANCE AUDITOR COVID: Suspected 06/26/2022 06/26/2022 06/26/2022 5:59 PM CDT Coronavirus, droplet 06/26/2022 06/26/2022 023 3:06 AM CDT documented as of this encounter Care Teams College Intern Relationship Specialty Start Date End Date Zoila Gleason MD [address] [place] [address] PCP - General 09/29/16 Rupal Isabel MD 10 [facility] [address] [place] [address] Referring Physician Allergy and Immunology 01/11/19 Rekha Osborne MD [address] [place] [address] Medical Oncologist/Forester Aide Hematology 05/11/20 Mayuri Lyn, RN [address] [facility] [address] [place] [address] SHOP Outpatient Manager Contact 12/04/20 01/04/21 Michelle Colin [facility] 4590 [facility] ([facility]) Mailstop [phone] [place] [address] SHOP Outpatient Manager Contact 10/19/21 11/16/21 documented as of this encounter
--- OUTSIDE RECORDS SUMMARY | 2024-06-10 15:40 | XMS_ITS | Clinical Summary ---
Author Organization [facility] ospital Address [address] [place] [address] Care Team Providers Care Welding Process Specialist Name Role Phone Zoila Gleason MD Primary Care Provider [phone] Rupal Isabel MD Unavailable Rekha Osborne MD Unavailable [phone] Allergies Active Allergy Reactions Criticality Noted Date [...] anaphylaxis Never used. 021 Active OptiChamber Anju [facility] spacer USE WITH INHALER DIRECTED 021 [...] 1 tablet (112 mcg total) by mouth learning operations specialist before breakfast Active Solu-CORTEF Act-O-Vial, PF, 100 [...] stooling. -As of 12/18/23 at 1300, per [facility] [phone] - E. Coli. -Repeat blood cultures NGTD -Received cefepime; changed to cefuroxime to complete a 7 day course. Source is suspected to be UTI -TTE neg for vegetations Leukocytosis 12/17/2023 Assessment & Plan (12/17/2023 8:50 PM CDT): CBC at [facility] 12/15 WBC 20.5 (81% neutrophils). 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 On inhalers. CXR clear on admission. -Continue PRN albuterol and trelegy per hospital formulary Immunodeficiency disease 05/04/2021 History of ITP 12/01/2020 Overview (12/01/2020): Added automatically from request for surgery [id number] Anemia 11/28/2020 Assessment & Plan (12/03/2020 11:37 AM CDT): Hgb 4.8 METAL MIXER and s/p 4U pRBCs total. Hgb now [...] -advance diet as per gastroenterology Neutropenic fever 09/25/2020 Idiopathic thrombocytopenic purpura (ITP) (CMS/H CC) [...] requiring two months of PICU stay in that complicated with arterial thrombosis, s/p Xarelto therapy. His recent admission was on 12/29 for Enterobacter related urosepsis. He also required HC stress dose, presentation consistent with decreased adrenal reserves due to hx of prolonged steroid use. Considering his cytopenia, his initial presentation for thrombocytopenia to [facility] was in 2012 (17 yo) with [...] responded to steroid and rituximab last time ([id number]). 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 He is very well appearing and does not have an indication for stress dosing at this time. - send anti-21 hydroxylase antibody (red top 2 ml) 2107 to [facility] - consider ACTH stim test this admission [...] obtain anti-21 hydroxylase Ab to rule out Weston's disease. Assessment & Plan (12/29/2019 8:18 AM [...] now nearly completely healed. Is following with [facility] as an outpatient. Next appointment 01/08. Assessment [...] patient on 11/07. CVID (common variable immunodeficiency) ([facility] ) 04/16/2018 [...] AM CDT): Stable. Followed by endocrinology at [facility]. Currently on 150 mcg levothyroxine daily. [...] Avoid concomitant administration of Levothyroxine with patient's METAL MIXER iron. Separate dosing by at least 4 [...] fever cause 08/20/2022 08/20/2022 Acute respiratory failure with hypoxia 08/20/2022 02/09/2023 Assessment & Plan (08/21/2022 11:34 [...] flushes q4h through NG tube. Acute non-cardiogenic pulmonary edema 10/24/2019 08/05/2020 Arterial thrombosis 10/23/2019 08/06/19 Assessment & Plan (11/11/2019 7:34 AM CDT): [...] of increased lovenox dose. Ventilator associated pneumonia 10/16/2019 08/05/2020 COVID-19 10/10/2019 07/27/2020 Assessment & [...] Type Department Care Team Description 05/24/2024 Documentation [facility] Hematology [facility] Floor 6 [place] [address] Rose Marie Zapata RMA Prior Auth (Doptelet Approved through 05/23/25) 05/24/2024 Documentation [facility] Hematology [address] [place] [address] Floor 6 [place] [address] Saniya Alberts RN 05/13/2024 2:40 PM TRANSITION MANAGER Office Visit [facility] Endocrinology Metabolism and Lipid [address] [facility] 5th [place] [address] [place] [address] Jesenia Cottrell MD Adrenal insufficiency (Primary Dx); Arpita's syndrome (HCC); Low bone density for age; Hypogonadism in male; Vitamin D deficiency 04/25/2024 11:30 AM TRANSITION MANAGER Lab [facility] at [address] [phone] AIHA (autoimmune hemolytic anemia) (HCC); Chronic ITP (idiopathic thrombocytopenia) (HCC) 04/25/2024 9:00 AM TRANSITION MANAGER Office Visit [facility] Hematology [address] [place] [address] Medical Office Building [address] [place] [phone] Rekha Osborne MD AIHA (autoimmune hemolytic anemia) (HCC) (Primary Dx); Chronic ITP (idiopathic thrombocytopenia) (HCC); CVID (common variable immunodeficiency) (HCC); High risk medication use 04/25/2024 8:30 AM TRANSITION MANAGER Lab [facility] Oncology [address] [place] [address] [address] [facility] [place] [address] 04/11/2024 Orders Only [facility] Hematology [address] [facility] Floor 6 [place] [address] Saniya Alberts, RN 04/09/2024 Telephone [facility] [address] [facility] [place] for [facility] 5th [place] [address] [place] [address] Kobi Og MD 04/01/2024 Telephone [facility] Hematology [address] [facility] Floor 6 [place] [address] [phone] Saniya Alberts RN 03/19/2024 Telephone [facility] 10 [facility] Medical Office Building 2 [address] [place] [address] Kobi Og MD 03/12/2024 6:15 PM TRANSITION MANAGER Lab [facility] ([facility]) [address] [place] [phone] Osteoporosis without current pathological fracture, unspecified osteoporosis type 03/12/2024 3:40 PM TRANSITION MANAGER - 03/12/2024 11:59 PM TRANSITION MANAGER Hospital Encounter [facility] ([facility]) [address] [place] [address] Osteoporosis without current pathological fracture, unspecified osteoporosis type Discharge Disposition: Discharge to home or self care 03/12/2024 2:34 PM TRANSITION MANAGER - 03/12/2024 11:59 PM TRANSITION MANAGER Hospital Encounter [facility] ([facility]) [address] [place] [address] Mild persistent asthma without complication Discharge Disposition: Discharge to home or self care 03/12/2024 2:30 PM TRANSITION MANAGER Office Visit [facility] Pulmonary [facility] 8th [place] [address] [place] [address] Jam Sands MD Mild persistent asthma without complication (Primary Dx); Lymphocytic interstitial pneumonia (HCC) from Last 3 Months Immunizations Immunization Administration [...] Influenza, Trivalent, Preser vative Free, Intramuscular 03/09/2016 Cubeyou (J&J) SARS-CoV-2 Vaccination 06/08/2020 MMR 10/01/2002,01/20/1999 Meningococcal [...] 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 - (Added by [...] Decubitus skin ulcer Acute hypoxemic respiratory failure (HCC) 10/10/2019 Ventilator associated pneumo phi (HCC) 10/16/2019 Acute non-cardiogenic pulmon chyu edema (HCC) 10/24/2019 Pneumonia due to infectious organism 04/22/2020 Arterial thrombosis (HCC) 10/23/2019 Hypotension 04/22/2020 Acute kidney injury 10/10/2019 Acute cystitis due to enterobacter 01/04/2020 Down syndrome Personal history of COVID-19 10/2019 Clotting disorder Heart disease s/p HI secondary to severe anemia GI (gastrointestinal bleed) Acute respiratory failure wi th hypoxia (HCC) 08/20/2022 Family History Medical History Relation Name Comments Cancer Father Aidan Viera Hyperlipidemia Father Aidan Viera Hypertension Father Aidan Mastreesejose ramon Thyroid disease Mother Early Paternal Grandfather Pal Aylin Heart attack Paternal Grandfather Pal Aylin Osteoporosis Paternal Grandfather Pal Charojose ramon Anesthesia problems Neg Hx Broken bones Neg Hx Hip fracture Neg Hx Kyphosis Neg Hx Scoliosis Neg Hx Relation Name Status Comments Father Aidan Viera Mother Paternal Grandfather Pal Mastreesejose ramon Social History Tobacco Use Types Packs/Day Years [...] week 10/11/2021 How often do you attend [facility] or [facility]? Never 10/11/2021 Do you [...] slept in a detention (including now)? No 10/11/2021 Personal Safety Answer Date Recorded Have you ever been in or are you currently in a harmful physical or emotional relationship or is someone making you feel afraid or unsafe? Patient unable to answer 12/18/2023 Sex and Gender Information Value Date Recorded Sex Assigned at Not on file Legal Sex Male 1:53 AM TRANSITION MANAGER Gender Identity Male 10/02/2023 12:44 PM CDT Sexual Orientation Don't know 11/15/2020 1: 06 PM CDT Obstetrics History Last Filed Vital Signs Vital Sign Reading Time Taken Comments Blood Pressure 117/79 05/13/2024 2:31 PM TRANSITION MANAGER Pulse 90 05/13/2024 2:31 PM TRANSITION MANAGER Temperature 36.9 C (98.5 F) 05/13/2024 2:31 PM TRANSITION MANAGER Respiratory Rate 18 03/12/2024 2:48 PM TRANSITION MANAGER Oxygen Saturation 96% 03/12/2024 2:48 PM TRANSITION MANAGER Inhaled Oxygen Concentration - - Weight 60.8 kg (134 lb) 05/13/2024 2:31 PM TRANSITION MANAGER Height 160 cm (5' 3 ) 05/13/2024 2:31 PM TRANSITION MANAGER Body Mass Index 23.74 05/13/2024 2:31 PM TRANSITION MANAGER Plan of Treatment Health Maintenance Due Date [...] PCV21) 01/06/2021 11/11/2020, 12/18/2012 Covid-19 Vaccine (4 - 2023-2 5 season) 2023 02/17/2021, 01/27/2021, 06/08/2020 Influenza Vaccine (#1) 2023 3, 02/03/2022, 01/27/2021, Additional history exists Hepatitis B Screening Completed 01/12/1999 , 03/17/1998, 1997 Hepatitis C Screening Completed 11/28/2020 Procedures Procedure Name Priority Date/Time Associated Diagnosis Comments EGFR Routine 04/25/2024 10:00 AM TRANSITION MANAGER AIHA (autoimmune hemolytic anemia) (HCC) Chronic ITP (idiopathic thrombocytopenia) (HCC) DIFFERENTIAL AUTO Routine 04/25/2024 10: 00 AM TRANSITION MANAGER AIHA (autoimmune hemolytic anemia) (HCC) Chronic ITP (idiopathic thrombocytopenia) (HCC) CBC WITH AUTO DIFFERENTIAL Routine 04/25/2024 10:00 AM TRANSITION MANAGER AIHA (autoimmune hemolytic anemia) (HCC) Chronic ITP (idiopathic thrombocytopenia) (HCC) COMPREHENSIVE METABOLIC PANEL Routine 04/25/2024 10:00 AM TRANSITION MANAGER AIHA (autoimmune hemolytic anemia) (HCC) Chronic ITP (idiopathic thrombocytopenia) (HCC) RETICULOCYTES Routine 04/25/2024 10:00 AM TRANSITION MANAGER AIHA (autoimmune hemolytic anemia) (HCC) Chronic ITP (idiopathic thrombocytopenia) (HCC) HAPTOGLOBIN Routine 04/25/2024 10:00 AM TRANSITION MANAGER AIHA (autoimmune hemolytic anemia) (HCC) Chronic ITP (idiopathic thrombocytopenia) (HCC) LACTATE DEHYDROGENASE Routine 04/25/2024 10:00 AM TRANSITION MANAGER AIHA (autoimmune hemolytic anemia) (HCC) Chronic ITP (idiopathic thrombocytopenia) (HCC) DIRECT ANTIGLOBULIN TEST Routine 04/25/2024 10:00 AM TRANSITION MANAGER AIHA (autoimmune hemolytic anemia) (HCC) Chronic ITP (idiopathic thrombocytopenia) (HCC) XR SCOLIOSIS AP LAT Schedule Routine, Read Routine (OP Routine) 03/12/2024 4:00 PM TRANSITION MANAGER Osteoporosis without current pathological fracture, unspecified osteoporosis type EGFR Routine 03/12/2024 3:34 PM TRANSITION MANAGER Osteoporosis without current pathological fracture, unspecified osteoporosis type BETA-CROSSLAPS (BETA-CTX) Routine 03/12/2024 3:34 PM TRANSITION MANAGER Osteoporosis without current pathological fracture, unspecified osteoporosis type COMPREHENSIVE METABOLIC PANEL Routine 03/12/2024 3:34 PM TRANSITION MANAGER Osteoporosis without current pathological fracture, unspecified osteoporosis type PTH Routine 03/12/2024 3:34 PM TRANSITION MANAGER Osteoporosis without current pathological fracture, unspecified osteoporosis type PHOSPHORUS Routine 03/12/2024 3:34 PM TRANSITION MANAGER Osteoporosis without current pathological fracture, unspecified osteoporosis type OSTEOCALCIN Routine 03/12/2024 3:34 PM TRANSITION MANAGER Osteoporosis without current pathological fracture, unspecified osteoporosis type ALKALINE PHOSPHATASE, BONE SPECIFIC Routine 03/12/2024 3:34 PM TRANSITION MANAGER Osteoporosis without current pathological fracture, unspecified osteoporosis type GAMMA GT Routine 03/12/2024 3:34 PM TRANSITION MANAGER Osteoporosis without current pathological fracture, unspecified osteoporosis type XR CHEST PA LATERAL 2 VIEWS Schedule Routine, Read Routine (OP Routine) 03/12/2024 2:41 PM TRANSITION MANAGER Mild persistent asthma without complication HEPATITIS PANEL, ACUTE Routine 11/28/2020 5:33 PM CDT from Last 3 Months or Most Recently Relevant to Health Maintenance Results * eGFR (04/25/2024 10:00 AM TRANSITION MANAGER) eGFR >90 >=60 mL/min/1. 73 m2 Comment: [...] was last reviewed 2021. Testing performed by: [facility], [address] [place] [address] Blood 04/25/2024 10:0 0 AM TRANSITION MANAGER 04/25/2024 10:16 AM TRANSITION MANAGER us Rekha Osborne MD LAB BLOOD ORDERABLES Final Result [facility] [address] Department [place] [address] * (ABNORMAL) Differential, auto (04/25/2024 10:00 AM TRANSITION MANAGER) Neutrophil abs 8.6(H) 1.5 - 6.5 K/cumm Comment:Testing performed by : [facility], [facility], [address] [place] [address] Imm gran abs 0.5(H) 0.0 - 0.1 K/cumm CERNER BJW Comment:Testing performed by : [facility], [facility], [address] [place] [address] Lymphocyte abs 2.3 0.8 - 3.3 K/cumm [facility] Comment:Testing performed by : [facility], [facility], [address] [place] [address] Monocyte abs 1.4(H) 0.2 - 0.8 K/cumm CERARTHUR BJWCH Comment:Testing performed by : [facility] 2, [address] [place] [address] Eosinophil abs 0.1 0.0 - 0.5 K/cumm CERARTHUR BJWCH Comment:Testing performed by : [facility] 2, [address] [place] [address] Basophil abs 0.2(H) 0.0 - 0.1 K/cumm CERNER [facility] Comment:Testing performed by : [facility] 2, [address] [place] [address] Neutrophil pct 65.5 % CERNER BJW[facility] Comment: Interpretive Data Percent cell count reference ranges are not reported, since discordance with absolute values may lead to misinterpretation of CBC data. Current Interpretive Data was last revised on 2017. Testing performed by: [facility], [facility], [address] [place] [address] Imm gran pct 4.0 % CERNER [facility] Comment: Interpretive Data Percent cell count reference ranges are not reported, since discordance with absolute values may lead to misinterpretation of CBC data. Current Interpretive Data was last revised on 2017. Testing performed by: [facility], [facility], [address] [place] [address] Lymphocyte pct 17.2 % CERNER [facility] Comment: Interpretive Data Percent cell count reference ranges are not reported, since discordance with absolute values may lead to misinterpretation of CBC data. Current Interpretive Data was last revised on 2017. Testing performed by: [facility], [facility], [address] [place] [address] Monocyte pct 10.9 % CERNER [facility] Comment: Interpretive Data Percent cell count reference ranges are not reported, since discordance with absolute values may lead to misinterpretation of CBC data. Current Interpretive Data was last revised on 2017. Testing performed by: [facility] 2, [address] [place] [address] Eosinophil pct 0.7 % CERNER [facility] Comment: Interpretive Data Percent cell count reference ranges are not reported, since discordance with absolute values may lead to misinterpretation of CBC data. Current Interpretive Data was last revised on 2017. Testing performed by: [facility], [facility], [address] [place] [address] Basophil pct 1.7 % CERNER [facility] Comment: Interpretive Data Percent cell count reference ranges are not reported, since discordance with absolute values may lead to misinterpretation of CBC data. Current Interpretive Data was last revised on 2017. Testing performed by: [facility], [facility], [address] [place] [address] Blood 04/25/2024 10:0 0 AM TRANSITION MANAGER 04/25/2024 10:05 AM TRANSITION MANAGER Rekha Osborne MD LAB BLOOD ORDERABLES Final Result Performing Organization Address City/State/ZIP Co ky Phone Number [facility] [address] [facility] Department [place] [address] * (ABNORMAL) CBC with auto differential (04/25/2024 10:00 AM TRANSITION MANAGER) WBC 13.1(H) 3.8 - 9.9 K/cumm Comment:Testing performed by : [place] [address] [place] [address] Hgb 15.1 13.0 - 17.5 g/dL PAULA CAMPOS Comment:Testing performed by : [place] [address] [place] [address] Hct 45.6 38.9 - 50.3 % [facility] Comment:Testing performed by : [place] [address] [place] [address] Plt 201 150 - 400 K/cumm PAULA CAMPOS Comment:Testing performed by : [place] [address] [place] [address] MPV 12.4(H) 9.1 - 12.3 fL PAULA CAMPOS Comment:Testing performed by : [place] [address] [place] [address] RBC 4.78 4.30 - 5.80 M/cumm PAULA CARIASCH Comment:Testing performed by : [place] [address], [address] [place] [address] MCV 95 81 - 96 fL PAULA MERAZWCH Comment:Testing performed by : [place] [address] [place] [address] MCH 31.6 27.1 - 33.3 pg [facility] Comment:Testing performed by : [facility] 2, [address] [place] [address] MCHC 33.1 32.3 - 35.7 g/dL [facility] Comment:Testing performed by : [facility] 2, [address] [place] [address] RDW CV 16.8(H) 11.1 - 14.9 % [facility] Comment:Testing performed by : [place] [address], [address] [place] [address] RDW SD 58.8(H) 35.7 - 48.1 fL [facility] Comment:Testing performed by : [facility] 2, [address] [place] [address] NRBC abs 0.03(H) 0.00 - 0.01 K/cumm [facility] Comment:Testing performed by : [facility] [address], [place] [address] Blood 04/25/2024 10:0 0 AM TRANSITION MANAGER 04/25/2024 10:05 AM TRANSITION MANAGER us Rekha Osborne MD LAB BLOOD ORDERABLES Final Result Performing Organization Address City/State/[facility] Co de Phone Number [facility] [address] [facility] Department [place] [address] * (ABNORMAL) Reticulocyte Count (04/25/2024 10:00 AM TRANSITION MANAGER) Retics, absolute 0.104(H) 0.020 - 0.087 M/cumm Comment:Testing performed by : [facility] 2, [address] [place] [address] Retics 2.2 0.4 - 2.9 % [facility] Comment:Testing performed by : [facility] 2, [address] [place] [address] Reticulocyte Hgb 32.9 30.5 - 38.0 pg PAULA [facility] Comment:Testing performed by : [facility], [facility], [address] [place] [address] Blood 04/25/2024 10:0 0 AM TRANSITION MANAGER 04/25/2024 10:05 AM TRANSITION MANAGER Rekha Osborne MD LAB BLOOD ORDERABLES Final Result Performing Organization Address [facility]/ZIP Co de Phone Number [facility] [address] [place] [address] * Direct antiglobulin test (04/25/2024 10:00 AM TRANSITION MANAGER) HUMZA Poly Interp Negative Comment:Testing performed by : [facility], [address] [place] [address] Blood 04/25/2024 10:0 0 AM TRANSITION MANAGER 04/25/2024 10:16 AM TRANSITION MANAGER Rekha Osborne MD LAB BLOOD BANK TEST ORDERAB LES Final Result Performing Organization Address [facility] de Phone Number PAULA [facility] [address] [facility] [place] [address] * Lactate dehydrogenase (LD) (04/25/2024 10:00 AM TRANSITION MANAGER) Lactate dehydrogenase (LDH) 139 100 - 250 Units/L Comment:Testing performed by : [facility], [address] [place] [address] Blood 04/25/2024 10:0 0 AM TRANSITION MANAGER 04/25/2024 10:16 AM TRANSITION MANAGER Rekha Osborne MD LAB BLOOD ORDERABLES Edited Result - Final Performing Organization Address [facility] Co de Phone Number [facility]A [facility] [address] Department [place] [address] * (ABNORMAL) Haptoglobin (04/25/2024 10:00 AM TRANSITION MANAGER) Haptoglobin 221(H) 30 - 200 mg/dL Comment:Testing performed by : [facility], [facility], [place]., [address] Blood 04/25/2024 10:0 0 AM TRANSITION MANAGER 04/25/2024 1:35 PM TRANSITION MANAGER us Rekha Osborne MD LAB BLOOD ORDERABLES Final Result [facility] [address] Department [place] [address] * Comprehensive metabolic panel (04/25/2024 10:00 AM TRANSITION MANAGER) Pathologist [facility] Sodium 139 135 - 145 mmol/L Comment:Testing performed by : [facility], [address], [place] [address] Potassium, pl 4.1 3.3 - 4.9 mmol/L CERNER [facility] Comment:Testing performed by : [facility], [address], [place] [address] Chloride 103 97 - 110 mmol/L CERNER [facility] Comment:Testing performed by : [facility], [address], [place] [address] CO2 26 22 - 32 mmol/L CERNER [facility] Comment:Testing performed by : [facility], [address], [place] [address] Anion gap 10 2 - 15 mmol/L CERNER [facility] Comment:Testing performed by : [facility], [address], [place] [address] BUN 15 6 - 25 mg/dL CERNER [facility] Comment:Testing performed by : [facility], [address], [place] [address] Creatinine 0.80 0.80 - 1.30 mg/dL CERNER [facility] Comment:Testing performed by : [facility], [address], [place] [address] Glucose 98 70 - 199 mg/dL CERNER [...] was last revised 2022. Testing performed by: [facility], [address], [place] [address] Calcium 9.3 8.5 - 10.3 mg/dL CERNER [facility] Comment:Testing performed by : [facility], [address], [place] [address] Bilirubin, total 0.2 0.1 - 1.2 mg/dL CERNER [facility] Comment:Testing performed by : [facility], [address], [place] [address] Protein, pl 6.8 6.5 - 8.5 g/dL CERNER [facility] Comment:Testing performed by : [facility], [address], [place] [address] Albumin 3.7 3.5 - 5.0 g/dL CERNER [facility] Comment:Testing performed by : [facility], [address] [address], [place] [address] Alk phos 122 40 - 130 Units/L [facility] Comment:Testing performed by : [facility], [address], [place] [address] ALT 29 7 - 55 Units/L [facility] Comment:Testing performed by : [facility], [address], [place] [address] AST 23 10 - 50 Units/L [facility] Comment:Testing performed by : [facility], [address], [place] [address] Blood 04/25/2024 10:0 0 AM TRANSITION MANAGER 04/25/2024 10:16 AM TRANSITION MANAGER Rekha Osborne MD LAB BLOOD ORDERABLES Edited Result - Final [facility] [address] [facility]. Department [place] [address] * XR Scoliosis 2 or 3 Views (03/12/2024 4:00 PM TRANSITION MANAGER) Anatomical Region Laterality Modality Spine N/A Computed Radiogr aphy 03/12/2024 4:28 PM TRANSITION MANAGER Impressions 03/12/2024 4:28 PM TRANSITION MANAGER No compression deformities of the spine. Electronically signed by: Inderjit Valle D.O. Narrative 03/12/2024 4:28 PM TRANSITION MANAGER EXAMINATION: XR SCOLIOSIS AP AND LATERAL HISTORY: [...] Final Result * eGFR (03/12/2024 3:34 PM TRANSITION MANAGER) eGFR >90 >=60 mL/min/1. 73 m2 Comment: [...] last reviewed 2021. Blood 03/12/2024 3:34 PM TRANSITION MANAGER 03/12/2024 4:13 PM TRANSITION MANAGER us Rick Fabian MD LAB BLOOD ORDERABLES Final Resul t Performing Organization Address [facility] Co de Phone Number [facility] Department [place] [address] * Beta-CrossLaps (Beta-CTx) (03/12/2024 3:34 PM TRANSITION MANAGER) Beta-CTx 455 pg/mL Comment: Interpretive Data Female: Premenopausal: 136 - 689 pg/mL Postmenopausal: 177 - 1015 pg/mL Male: 30 - 50 years: 131 - 670 pg/mL 51 - 70 years: 171 - 1060 pg/mL > 70 years: 152 - 858 pg/mL Current interpretive data was last revised on 2023. Blood 03/12/2024 3:34 PM TRANSITION MANAGER 03/12/2024 4:10 PM TRANSITION MANAGER us Rick Fabian MD LAB BLOOD ORDERABLES Final Resul t [facility]ULA [facility] Department [place] [address] * Alkaline phosphatase, bone specific (03/12/2024 3:34 PM TRANSITION MANAGER) Pathologist [facility] Alk phos, bone 13 0 - 20 mcg/L [place] [facility] Comment: ADDITIONAL INFORMATION Liver-derived alkaline phosphatase (ALP) increases apparent measured bone alkaline phosphatase (BAP) in this assay by 2.5 mcg/L to 5.8 mcg/L for every 100 U/L of liver ALP. Accordingly, serum specimens with significant elevations of liver ALP activity may yield artificially elevated results in the BAP assay. Test Performed by: [facility] [address] [place] [id number] Production Helper: Imelda Perez Ph.D.; CLIA# [id number] Blood 03/12/2024 3:34 PM TRANSITION MANAGER 03/12/2024 5:05 PM TRANSITION MANAGER Rick Fabian MD LAB BLOOD ORDERABLES Final Resul t Performing Organization Address [facility] Co de Phone Number [facility] Department [place] [address] [facility] * Osteocalcin (03/12/2024 3:34 PM TRANSITION MANAGER) [facility] Osteocalcin See Comment Comment: Credited; Hemolyzed Specimen Interpretive Data Female: Premenopausal: 7.6 - 35.1 ng/mL Postmenopausal: 7.3 - 38.5 ng/mL Male: 30 - 50 years: 8.4 - 36.7 ng/mL > 50 years: 9.9 - 35.6 ng/mL Current interpretive data was last revised on 2021. Blood 03/12/2024 3:34 PM TRANSITION MANAGER 03/12/2024 4:10 PM TRANSITION MANAGER Rick Fabian MD LAB BLOOD ORDERABLES Final Resul t [facility] [place] [address] * Phosphorus (03/12/2024 3:34 PM TRANSITION MANAGER) Pathologist [facility] Phosphorus, pl 4.1 2.3 - 4.5 mg/dL Blood 03/12/2024 3:34 PM TRANSITION MANAGER 03/12/2024 4:10 PM TRANSITION MANAGER us Rick Fabian MD LAB BLOOD ORDERABLES Final Resul t Performing Organization Address [facility] Co de Phone Number [facility] [place] [address] * PTH (03/12/2024 3:34 PM TRANSITION MANAGER) Pathologist [facility] PTH 29 15 - 65 pg/mL Blood 03/12/2024 3:34 PM TRANSITION MANAGER 03/12/2024 4:10 PM TRANSITION MANAGER Rick Fabian MD LAB BLOOD ORDERABLES Final Resul t Performing Organization Address [facility] Co de Phone Number [facility] [place] [address] * Gamma GT (03/12/2024 3:34 PM TRANSITION MANAGER) Pathologist [facility] GGT 44 10 - 50 Units/L Blood 03/12/2024 3:34 PM TRANSITION MANAGER 03/12/2024 4:10 PM TRANSITION MANAGER Rick Fabian MD LAB BLOOD ORDERABLES Final Resul t Performing Organization Address [facility] Co de Phone Number PAULA [facility] [place] [address] * (ABNORMAL) Comprehensive metabolic panel (03/12/2024 3:34 PM TRANSITION MANAGER) Pathologist [facility] Sodium 138 135 - 145 mmol/L Potassium, pl 4.5 3.3 - 4.9 mmol/L [facility] Chloride 103 97 - 110 mmol/L [facility] CO2 26 22 - 32 mmol/L [facility] Anion gap 9 2 - 15 mmol/L [facility] BUN 16 6 - 25 mg/dL [facility] Creatinine 0.97 0.80 - 1.30 mg/dL [facility] Glucose 114 70 - 199 mg/dL [facility] Comment: Interpretive Data Fasting glucose [...] 2022. Calcium 9.1 8.5 - 10.3 mg/dL [facility] Bilirubin, total 0.2 0.1 - 1.2 mg/dL [facility] Protein, pl 6.9 6.5 - 8.5 g/dL [facility] Albumin 3.4(L) 3.5 - 5.0 g/dL [facility] Alk phos 110 40 - 130 Units/L [facility] ALT 28 7 - 55 Units/L [facility] AST 32 10 - 50 Units/L [facility] Blood 03/12/2024 3:34 PM TRANSITION MANAGER 03/12/2024 4:10 PM TRANSITION MANAGER us Rick Fabian MD LAB BLOOD ORDERABLES Final Resul t [facility] Department [place] [address] * X-ray chest 2 views (03/12/2024 2:41 PM TRANSITION MANAGER) Anatomical Region Laterality Modality Body, Chest N/A Computed Radiogr aphy 03/12/2024 3:17 PM TRANSITION MANAGER Impressions 03/12/2024 3:17 PM TRANSITION MANAGER Comparison 12/17/2023. Heart size normal. Pediatric median sternotomy wires noted. No pneumothorax or pleural effusion. Clear lungs. Electronically signed by: Cyril Gilbert M.D. Narrative 03/12/2024 3:17 PM TRANSITION MANAGER EXAMINATION: 2 view chest radiograph Procedure Note [...] PM CDT) Hep A IgM Nonreactive Nonreactive [facility] Comment: Interpretive Data: If Hep A IgM Ab is reported as Equivocal, a new sample should be drawn in two weeks for testing. Current interpretive data was last revised on 19. Hep B core IgM Nonreactive Nonreactive [facility] Comment: Interpretive Data If HepB Core IgM Ab is reported as Equivocal, a new sample should be drawn in two weeks for testing. Current interpretive data was last revised on 19. Hep C Ab Nonreactive Nonreactive [facility] Comment:Antibodies to HCV no t detected. Does NOT exclude the possibility of recent exposure to HCV. HepBsAg Nonreactive Nonreactive [facility] Blood 11/28/2020 5:33 PM CDT 11/28/2020 5:53 PM CDT us Jazzmine Mccartney NP LAB MICROBIO LOGY - GENERAL ORDERABLES Edited Result - Final [facility] Department [place] [address] from Last 3 Months or Most Recently Relevant to Health Maintenance Insurance CHO[place] [facility] CHOICE PLUS [facility] HMO/PPO Address: [address] [address] [place] [address] [employer] OPEN ACCESS [place] [facility] CHOICE PLUS [facility] HMO/PPO Address: [address] [address] [place] [address] [employer] OPEN ACCESS IDPA [facility] PPO OR IDPA [employer] OPEN ACCESS [facility] CHOICE PLUS [facility] HMO/PPO Address: [address] [address] [place] [address] Advance Directives For more information, please contact: [phone] Documents on File Type Date Recorded Patient Index Editor Expl anation Power of Multiple Spindle Router Operator 10/21/2021 12:58 PM ADVANCE DIRECTIVE 10/14/2019 12:35 [...] 5:09 PM 01/02/2021 6:56 PM Care Teams Welding Process Specialist Relationship Specialty Start Date End Date Zoila Gleason MD [address] [place] [address] PCP - General 09/29/16 Rupal Isabel MD 10 [facility] 200 [place] [address] Referring Physician Allergy and Immunology 01/11/19 Rekha Osborne MD [address] [place] [address] Medical Oncologist/Parts Cleaner Hematology 05/11/20
--- OUTSIDE RECORDS SUMMARY | 2024-06-10 15:40 | XMS_ITS | Encounter Summary ---
Author Organization [facility] Address [address] [place] [address] Phone Care Team Providers Care Boat Engines Installer Name Role Phone Zoila Gleason MD Primary Care Provider [phone] Rupal Isabel MD Unavailable [phone] Rekha Osborne MD Unavailable Mayuri Lyn RN Unavailable [phone] Michelle Colin AIRCRAFT PNEUDRAULIC SYSTEMS MECHANIC Unavailable [phone] Encounter Details Date Type Department Care Team [...] on file Legal Sex Male 1:53 AM RETAIL BANKING MANAGER Gender Identity Male 10/02/2023 12:44 PM [...] COVID: Recovered 11/29/2020 11/29/2020 03/29/2021 3:05 AM RETAIL BANKING MANAGER COVID: Suspected 10/09/2021 10/09/2021 10/09/2021 9:37 AM CDT COVID: Suspected 03/06/2022 03/06/2022 03/06/2022 9:30 AM RETAIL BANKING MANAGER RSV, droplet 03/06/2022 03/06/2022 03/13/2022 3:05 AM RETAIL BANKING MANAGER COVID: Suspected 06/26/2022 06/26/2022 06/26/2022 5:59 PM CDT Coronavirus, droplet 06/26/2022 06/26/2022 023 3:06 AM CDT documented as of this encounter Care Teams Boat Engines Installer Relationship Specialty Start Date End Date Zoila Gleason MD [address] [place] [address] PCP - General 09/29/16 Rupal Isabel MD [address] [place] [address] [address] [place] [address] Referring Physician Allergy and Immunology 01/11/19 Rekha Osborne MD [address] [place] [address] Medical Oncologist/Electrical Tester Hematology 05/11/20 Mayuri Lyn, RN 4590 [facility] 5300 [place], [place] [id number] LAST Outpatient Summer Intern 12/04/20 01/04/21 Michelle Colin, AIRCRAFT PNEUDRAULIC SYSTEMS MECHANIC 4590 [facility] ([facility]) Mailstop [phone] [place] [address] LAST Outpatient Summer Intern 10/19/21 11/16/21 documented as of this encounter
--- OUTSIDE RECORDS SUMMARY | 2024-06-10 15:40 | XMS_ITS | Encounter Summary ---
Author Organization [facility] Address [address] [place] [address] Phone Care Team Providers Care Form Designer Name Role Phone Zoila Gleason MD Primary Care Provider Rupal Isabel MD Unavailable [phone] Rekha Osborne MD Unavailable Mayuri Lyn RN Unavailable [phone] Michelle ColinW Unavailable [phone] Encounter Details Date Type Department Care Team [...] on file Legal Sex Male 1:53 AM ALL SOURCE INTELLIGENCE TECHNICIAN Gender Identity Male 10/02/2023 12:44 PM [...] COVID: Recovered 11/29/2020 11/29/2020 03/29/2021 3:05 AM ALL SOURCE INTELLIGENCE TECHNICIAN COVID: Suspected 10/09/2021 10/09/2021 10/09/2021 9:37 AM CDT COVID: Suspected 03/06/2022 03/06/2022 03/06/2022 9:30 AM ALL SOURCE INTELLIGENCE TECHNICIAN RSV, droplet 03/06/2022 03/06/2022 03/13/2022 3:05 AM ALL SOURCE INTELLIGENCE TECHNICIAN COVID: Suspected 06/26/2022 06/26/2022 06/26/2022 5:59 PM CDT Coronavirus, droplet 06/26/2022 06/26/2022 023 3:06 AM CDT documented as of this encounter Care Teams Form Designer Relationship Specialty Start Date End Date Zoila Gleason MD [address] [place], [place] [address] PCP - General 09/29/16 Rupal Isabel MD 10 [facility] [address] [place] [address] Referring Physician Allergy and Immunology 01/11/19 Rekha Osborne MD [address] [place] [address] Medical Oncologist/Desktop Analyst Hematology 05/11/20 Mayuri Lyn, RN 4590 [facility] 5300 [place] [address] SHOP Outpatient Canned Food Reconditioning Inspector 12/04/20 01/04/21 Michelle Colin LCSW 4590 [facility] ([facility]) Mailstop [phone] [place] [address] SHOP Outpatient Canned Food Reconditioning Inspector 10/19/21 11/16/21 documented as of this encounter
--- OUTSIDE RECORDS SUMMARY | 2024-06-10 15:40 | XMS_ITS | Encounter Summary ---
Author Organization [facility] [employer] [facility] Address [address] [place] [address] Phone Care Team Providers Care Service Cleaner Name Role Phone Zoila Gleason MD Primary Care Provider Rupal Isabel MD Unavailable [phone] Rekha Osborne MD Unavailable [phone] Mayuri Lyn RN Unavailable [phone] Michelle Colin PRETZEL PACKER Unavailable [phone] Encounter Details Date Type Department Care Team [...] on file Legal Sex Male 1:53 AM PROP AND EFFECTS DESIGNER Gender Identity Male 10/02/2023 12:44 PM [...] COVID: Suspected 04/21/2020 04/21/2020 04/21/2020 11:24 AM PROP AND EFFECTS DESIGNER Respiratory Infection (MICKEY), contact + droplet Comment:Automatically added due to negative COVID-19 result. 04/21/2020 04/21/2020 05/05/2020 3:0 6 AM PROP AND EFFECTS DESIGNER COVID: Suspected 04/21/2020 04/21/2020 04/21/2020 6:48 PM PROP AND EFFECTS DESIGNER COVID: Suspected 09/25/2020 09/25/2020 09/25/2020 10:11 AM CDT Rhino/Enterovirus 09/25/2020 09/25/2020 10/02/2020 3:05 AM CDT COVID: Recovered 11/29/2020 11/29/2020 03/29/2021 3:05 AM PROP AND EFFECTS DESIGNER COVID: Suspected 10/09/2021 10/09/2021 10/09/2021 9:37 AM CDT COVID: Suspected 03/06/2022 03/06/2022 03/06/2022 9:30 AM PROP AND EFFECTS DESIGNER RSV, droplet 03/06/2022 03/06/2022 03/13/2022 3:05 AM PROP AND EFFECTS DESIGNER COVID: Suspected 06/26/2022 06/26/2022 06/26/2022 5:59 PM CDT Coronavirus, droplet 06/26/2022 06/26/2022 023 3:06 AM CDT documented as of this encounter Care Teams Service Cleaner Relationship Specialty Start Date End Date Zoila Gleason MD [address] [place] [address] PCP - General 09/29/16 Rupal Isabel MD [address] [place] [address] [facility] 200 [place] [address] Referring Physician Allergy and Immunology 01/11/19 Rekha Osborne MD [address] [place] [address] Medical Oncologist/Lead Etl Developer Hematology 05/11/20 Mayuri Lyn, RN 4590 [facility] [address]300 [place] [address] SHOP Outpatient Workers Compensation Adjuster 12/04/20 01/04/21 Michelle Colin LCSW 0790 [facility] ([facility]) Mailstop [phone] [place] [address] SHOP Outpatient Workers Compensation Adjuster 10/19/21 11/16/21 documented as of this encounter
--- OUTSIDE RECORDS SUMMARY | 2024-06-10 15:40 | XMS_ITS | Encounter Summary ---
Author Organization [facility] Address [address] [place] [address] Phone Care Team Providers Care Software Engineer Advisor Name Role Phone Zoila Gleason MD Primary Care Provider Rupal Isabel MD Unavailable [phone] Rekha Osborne MD Unavailable [phone] Mayuri Lyn RN Unavailable [phone] Michelle Colin TAIL DOGGER Unavailable [phone] Encounter Details Date Type Department Care Team [...] on file Legal Sex Male 1:53 AM NAPPER RUNNER Gender Identity Male 10/02/2023 12:44 PM CDT [...] COVID: Suspected 04/21/2020 04/21/2020 04/21/2020 11:24 AM NAPPER RUNNER Respiratory Infection (MICKEY), contact + droplet Comment:Automatically added due to negative COVID-19 result. 04/21/2020 04/21/2020 05/05/2020 3:0 6 AM NAPPER RUNNER COVID: Suspected 04/21/2020 04/21/2020 04/21/2020 6:48 PM NAPPER RUNNER COVID: Suspected 09/25/2020 09/25/2020 09/25/2020 10:11 AM CDT Rhino/Enterovirus 09/25/2020 09/25/2020 10/02/2020 3:05 AM CDT COVID: Recovered 11/29/2020 11/29/2020 03/29/2021 3:05 AM NAPPER RUNNER COVID: Suspected 10/09/2021 10/09/2021 10/09/2021 9:37 AM CDT COVID: Suspected 03/06/2022 03/06/2022 03/06/2022 9:30 AM NAPPER RUNNER RSV, droplet 03/06/2022 03/06/2022 03/13/2022 3:05 AM NAPPER RUNNER COVID: Suspected 06/26/2022 06/26/2022 06/26/2022 5:59 PM CDT Coronavirus, droplet 06/26/2022 06/26/2022 023 3:06 AM CDT documented as of this encounter Care Teams Software Engineer Advisor Relationship Specialty Start Date End Date Zoila Gleason MD [address] [place] [address] PCP - General 09/29/16 Rupal Isabel MD [address] [place] [address] [address] Referring Physician Allergy and Immunology 01/11/19 Rekha Osborne MD [address] [place] [address] Medical Oncologist/Division Toll Wire Chief Hematology 05/11/20 Mayuri Lyn, RN 4590 [facility] 5[address] [place] [address] SHOP Outpatient Thrasher Feeder 12/04/20 01/04/21 Michelle Colin LCSW 4590 [facility] ([facility]) Mailstop [phone] [place] [address] SHOP Outpatient Thrasher Feeder 10/19/21 11/16/21 documented as of this encounter
--- OUTSIDE RECORDS SUMMARY | 2024-06-10 15:40 | XMS_ITS | Encounter Summary ---
Author Organization [facility] Address [address] [place] [address] Phone Care Team Providers Care Acute Specialist Name Role Phone Zoila Gleason MD Primary Care Provider Rupal Isabel MD Unavailable [phone] Rekha Osborne MD Unavailable [phone] Mayuri Lyn RN Unavailable [phone] Michelle Colin CHEMIST WATER PURIFICATION Unavailable [phone] Encounter Details Date Type Department Care Team [...] on file Legal Sex Male 1:53 AM FLY WORKER Gender Identity Male 10/02/2023 12:44 PM CDT [...] COVID: Recovered 11/29/2020 11/29/2020 03/29/2021 3:05 AM FLY WORKER COVID: Suspected 10/09/2021 10/09/2021 10/09/2021 9:37 AM CDT COVID: Suspected 03/06/2022 03/06/2022 03/06/2022 9:30 AM FLY WORKER RSV, droplet 03/06/2022 03/06/2022 03/13/2022 3:05 AM FLY WORKER COVID: Suspected 06/26/2022 06/26/2022 06/26/2022 5:59 PM CDT Coronavirus, droplet 06/26/2022 06/26/2022 023 3:06 AM CDT documented as of this encounter Care Teams Acute Specialist Relationship Specialty Start Date End Date Zoila Gleason MD [address] [place], [place] [address] PCP - General 09/29/16 Rupal Isabel MD [address] [place] [address] [address] [place] [address] Referring Physician Allergy and Immunology 01/11/19 Rekha Osborne MD [address] [place], [place] [id number] Medical Oncologist/Temper Mill Operator Hematology 05/11/20 Mayuri Lyn, RN 4590 [facility] [address] [place], [place] [id number] LAST Outpatient Talent Acquisition Manager 12/04/20 01/04/21 Michelle Colin, CHEMIST WATER PURIFICATION 4590 [facility] ([facility]) Mailstop [phone] [place] [address] SHOP Outpatient Talent Acquisition Manager 10/19/21 11/16/21 documented as of this encounter
--- OUTSIDE RECORDS SUMMARY | 2024-06-10 15:40 | XMS_ITS | Encounter Summary ---
Author Organization [facility] Address [address] [place] [address] Phone Care Team Providers Care Pressure Test Operator Name Role Phone Zoila Gleason MD Primary Care Provider [phone] Rupal Isabel MD Unavailable [phone] Rekha Osborne MD Unavailable [phone] Michelle Colin [facility] Unavailable [phone] Encounter Details Date Type Department Care Team [...] than three times a week 12/10/2020 Attends Scientologist Services Not on file 12/10 Active Member [...] slept in a longterm (including now)? No 12/10/2020 Sex and Gender Information Value Date Recorded Sex Assigned at Not on file Legal Sex Male 1:53 AM PROCUREMENT CLERK Gender Identity Male 10/02/2023 12:44 PM [...] COVID: Suspected 03/06/2022 03/06/2022 03/06/2022 9:30 AM PROCUREMENT CLERK RSV, droplet 03/06/2022 03/06/2022 03/13/2022 3:05 AM PROCUREMENT CLERK COVID: Suspected 06/26/2022 06/26/2022 06/26/2022 5:59 PM CDT Coronavirus, droplet 06/26/2022 06/26/2022 023 3:06 AM CDT documented as of this encounter Care Teams Pressure Test Operator Relationship Specialty Start Date End Date Zoila Gleason MD [address] [place] [address] PCP - General 09/29/16 Rupal Isabel MD 10 [facility] 200 [place] [address] Referring Physician Allergy and Immunology 01/11/19 Rekha Osborne MD [address] [place], [place] [address] Medical Oncologist/Program Clerk Hematology 05/11/20 Michelle Colin, MACHINE FEEDER FLOORPERSON 4590 [facility] ([facility] Mailstop [phone] [place] [address] SHOP Outpatient Ply Bander 10/19/21 11/16/21 documented as of this encounter
--- OUTSIDE RECORDS SUMMARY | 2024-06-10 15:40 | XMS_ITS | Encounter Summary ---
Author Organization [facility] Address [address] [place] [address] Phone Care Team Providers Care Kitchen Utility Associate Name Role Phone Zoila Gleason MD Primary Care Provider [phone] Rupal Isabel MD Unavailable [phone] Rekha Osborne MD Unavailable [phone] Mayuri Lyn RN Unavailable [phone] Michelle Colin PROJECT BUYER Unavailable [phone] Encounter Details Date Type Department Care Team [...] on file Legal Sex Male 1:53 AM HOSPICE EDUCATOR Gender Identity Male 10/02/2023 12:44 PM CDT [...] COVID: Recovered 11/29/2020 11/29/2020 03/29/2021 3:05 AM HOSPICE EDUCATOR COVID: Suspected 10/09/2021 10/09/2021 10/09/2021 9:37 AM CDT COVID: Suspected 03/06/2022 03/06/2022 03/06/2022 9:30 AM HOSPICE EDUCATOR RSV, droplet 03/06/2022 03/06/2022 03/13/2022 3:05 AM HOSPICE EDUCATOR COVID: Suspected 06/26/2022 06/26/2022 06/26/2022 5:59 PM CDT Coronavirus, droplet 06/26/2022 06/26/2022 023 3:06 AM CDT documented as of this encounter Care Teams Kitchen Utility Associate Relationship Specialty Start Date End Date Zoila Gleason MD [address] [address] PCP - General 09/29/16 Rupal Isabel MD [address] [place] [address] [address] [place] [address] Referring Physician Allergy and Immunology 01/11/19 Rekha Osborne MD [address] [place] [address] Medical Oncologist/Clinical Athletic Instructor Hematology 05/11/20 Mayuri Lyn, RN [address] [facility] [address] [place], [place] [address] LAST Outpatient Ditching Machine Operator 12/04/20 01/04/21 Michelel Colin, PROJECT BUYER 4590 [facility] ([facility]) Mailstop [phone] [place] [address] LAST Outpatient Ditching Machine Operator 10/19/21 11/16/21 documented as of this encounter
--- OUTSIDE RECORDS SUMMARY | 2024-06-10 15:40 | XMS_ITS | Referral Summary ---
Author Organization [facility] Address [address] [place] [address] Care Team Providers Care Supervisor [employer] Name Role Phone Zoila Gleason MD Primary Care Provider [phone] Rupal Isabel MD Unavailable Rekha Osborne MD Unavailable Encounters Date Type Department Care Team Description 05/24/2024 Documentation [facility] Hematology [address] [place] [phone] Rose Marie Zapata RMA Prior Auth (Doptelet Approved through 05/23/25) 05/24/2024 Documentation [facility] Hematology [address] [place] [address] 6 [place] [phone] Saniya Alberts RN 05/13/2024 2:40 PM HELICOPTER TECHNICIAN Office Visit [facility] Endocrinology Metabolism and Lipid [address] [facility] Advanced Medicine 5th [place] [address] [place] [address] Jesenia Cottrell MD Adrenal insufficiency (Primary Dx); Arpita's syndrome (HCC); Low bone density for age; Hypogonadism in male; Vitamin D deficiency 04/25/2024 11:30 AM HELICOPTER TECHNICIAN Lab [facility] at [address] [address] AIHA (autoimmune hemolytic anemia) (HCC); Chronic ITP (idiopathic thrombocytopenia) (HCC) 04/25/2024 8:30 AM HELICOPTER TECHNICIAN Lab [facility] Oncology [address] [place] [address] [address] [place] [address] 04/25/2024 9:00 AM HELICOPTER TECHNICIAN Office Visit [facility] Hematology [address] [facility] Medical Office Building 2 [address] [place] [address] Rekha Osborne MD AIHA (autoimmune hemolytic anemia) (HCC) (Primary Dx); Chronic ITP (idiopathic thrombocytopenia) (HCC); CVID (common variable immunodeficiency) (HCC); High risk medication use 04/11/2024 Orders Only [facility] Hematology [address] [facility] Floor 6 [place] [address] Saniya Alberts, ZOFIA 04/09/[address] Advanced Medicine 5th [place] [address] [place] [address] Kobi Og MD 04/01/[address] Floor 6 [place] [address] [phone] Saniya Alberts RN 03/19/[address] Medical Office Building 2 [address] [place] [address] Kobi Og MD 03/12/2024 3:40 PM HELICOPTER TECHNICIAN - 03/12/2024 11:59 PM HELICOPTER TECHNICIAN Hospital Encounter [facility] [address] [place] [address] Osteoporosis without current pathological fracture, unspecified osteoporosis type Discharge Disposition: Discharge to home or self care 03/12/2024 6:15 PM HELICOPTER TECHNICIAN Lab [facility] [address] [place] [address] Osteoporosis without current pathological fracture, unspecified osteoporosis type 03/12/2024 2:34 PM HELICOPTER TECHNICIAN - 03/12/2024 11:59 PM HELICOPTER TECHNICIAN Hospital Encounter [facility] ([facility]) [address] [place] [address] Mild persistent asthma without complication Discharge Disposition: Discharge to home or self care 03/12/2024 2:30 PM HELICOPTER TECHNICIAN Office Visit [facility] Pulmonary [address] [facility] 8th [place] [address] [place] [address] Jam Sands MD Mild persistent asthma without complication (Primary Dx); Lymphocytic interstitial pneumonia (HCC) from Last 3 Months Allergies Active [...] anaphylaxis Never used. 021 Active Darius Rene [facility] spacer USE WITH [...] (1,000 mg total) by mouth as needed 022 Active albuterol 2.5 mg /3 mL (0.083 [...] 1 tablet (112 mcg total) by mouth research study assistant before breakfast Active Solu-CORTEF Act-O-Vial, PF, 100 [...] the skin daily 225 g 2024 Active avatrombopag (DOPTELET) 20 mg tabletIndication s:Chronic ITP (idiopathic thrombocytopenia ) (HCC) Take 1 tablet (20 mg total) by mouth daily Administer with food 90 tablet 3 025 Active Breztri Aerosphere 160-9-4.8 mcg/actuation inhaler Inhale [...] stooling. -As of 12/18/23 at 1300, per [facility] [phone] - E. Coli. -Repeat blood cultures NGTD -Received cefepime; changed to cefuroxime to complete a 7 day course. Source is suspected to be UTI -TTE neg for vegetations Leukocytosis 12/17/2023 Assessment & Plan (12/17/2023 8:50 PM CDT): CBC at [facility] 12/15 WBC 20.5 (81% neutrophils). Ddx includes [...] (12/01/2020): Added automatically from request for surgery [id number] Anemia 11/28/2020 Assessment & Plan (12/03/2020 11:37 AM CDT): Hgb 4.8 SPORTS PHYSIOLOGIST and s/p 4U pRBCs total. Hgb now [...] his initial presentation for thrombocytopenia to [facility] was in 2012 (17 yo) [...] responded to steroid and rituximab last time ([id number]). During his last admission for UTI, he [...] bid - received stress dose steroids at [facility] - continue pred 5 BID - per [...] an anti-21 hydroxylase antibody to rule out Bud's as well as a low dose ACTH stim test at some point after 72 hours from last stress dose. He is very well appearing and does not have an indication for stress dosing at this time. - send anti-21 hydroxylase antibody (red top 2 ml) 2107 to [place] - consider ACTH stim test this admission [...] patient on 11/07. CVID (common variable immunodeficiency) ([facility] ) 04/16/2018 Assessment & Plan (12/19/2023 1:52 [...] CDT): Stable. Followed by endocrinology at [facility]. Currently on 150 mcg levothyroxine [...] Avoid concomitant administration of Levothyroxine with patient's SPORTS PHYSIOLOGIST iron. Separate dosing by at least 4 hours. Pediatric Endocrinology will continue to follow. 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 Per dad, Evans urine output has appropriately increased after receiving [...] Influenza, Trivalent, Preser vative Free, Intramuscular 03/09/2016 [employer] ([employer]) SARS-CoV-2 Vaccination 06/08/2020 MMR 10/01/2002,01/20/1999 Meningococcal [...] often do you attend chur ch or orthodox services? Never 10/11/2021 Do you belong to any clubs o r organizations such as sikhism groups, unions, fraternal or athletic groups, or [...] place to sleep or slept in a usp (including now)? No 10/11/2021 Personal Safety Answer Date Recorded Have you ever been in or are you currently in a harmful physical or emotional relationship or is someone making you feel afraid or unsafe? Patient unable to answer 12/18/2023 Sex and Gender Information Value Date Recorded Sex Assigned at Not on file Legal Sex Male 1:53 AM HELICOPTER TECHNICIAN Gender Identity Male 10/02/2023 12:44 PM CDT Sexual Orientation Don't know 11/15/2020 1: 06 PM CDT Last Filed Vital Signs Vital Sign Reading Time Taken Comments Blood Pressure 117/79 05/13/2024 2:31 PM HELICOPTER TECHNICIAN Pulse 90 05/13/2024 2:31 PM HELICOPTER TECHNICIAN Temperature 36.9 C (98.5 F) 05/13/2024 2:31 PM HELICOPTER TECHNICIAN Respiratory Rate 18 03/12/2024 2:48 PM HELICOPTER TECHNICIAN Oxygen Saturation 96% 03/12/2024 2:48 PM HELICOPTER TECHNICIAN Inhaled Oxygen Concentration - - Weight 60.8 kg (134 lb) 05/13/2024 2:31 PM HELICOPTER TECHNICIAN Height 160 cm (5' 3 ) 05/13/2024 2:31 PM HELICOPTER TECHNICIAN Body Mass Index 23.74 05/13/2024 2:31 PM HELICOPTER TECHNICIAN Plan of Treatment Not on file Procedures Procedure Name Priority Date/Time Associated Diagnosis Comments EGFR Routine 04/25/2024 10:00 AM HELICOPTER TECHNICIAN AIHA (autoimmune hemolytic anemia) (HCC) Chronic ITP (idiopathic thrombocytopenia) (HCC) DIFFERENTIAL AUTO Routine 04/25/2024 10: 00 AM HELICOPTER TECHNICIAN AIHA (autoimmune hemolytic anemia) (HCC) Chronic ITP (idiopathic thrombocytopenia) (HCC) CBC WITH AUTO DIFFERENTIAL Routine 04/25/2024 10:00 AM HELICOPTER TECHNICIAN AIHA (autoimmune hemolytic anemia) (HCC) Chronic ITP (idiopathic thrombocytopenia) (HCC) COMPREHENSIVE METABOLIC PANEL Routine 04/25/2024 10:00 AM HELICOPTER TECHNICIAN AIHA (autoimmune hemolytic anemia) (HCC) Chronic ITP (idiopathic thrombocytopenia) (HCC) RETICULOCYTES Routine 04/25/2024 10:00 AM HELICOPTER TECHNICIAN AIHA (autoimmune hemolytic anemia) (HCC) Chronic ITP (idiopathic thrombocytopenia) (HCC) HAPTOGLOBIN Routine 04/25/2024 10:00 AM HELICOPTER TECHNICIAN AIHA (autoimmune hemolytic anemia) (HCC) Chronic ITP (idiopathic thrombocytopenia) (HCC) LACTATE DEHYDROGENASE Routine 04/25/2024 10:00 AM HELICOPTER TECHNICIAN AIHA (autoimmune hemolytic anemia) (HCC) Chronic ITP (idiopathic thrombocytopenia) (HCC) DIRECT ANTIGLOBULIN TEST Routine 04/25/2024 10:00 AM HELICOPTER TECHNICIAN AIHA (autoimmune hemolytic anemia) (HCC) Chronic ITP (idiopathic thrombocytopenia) (HCC) XR SCOLIOSIS AP LAT Schedule Routine, Read Routine (OP Routine) 03/12/2024 4:00 PM HELICOPTER TECHNICIAN Osteoporosis without current pathological fracture, unspecified osteoporosis type EGFR Routine 03/12/2024 3:34 PM HELICOPTER TECHNICIAN Osteoporosis without current pathological fracture, unspecified osteoporosis type BETA-CROSSLAPS (BETA-CTX) Routine 03/12/2024 3:34 PM HELICOPTER TECHNICIAN Osteoporosis without current pathological fracture, unspecified osteoporosis type COMPREHENSIVE METABOLIC PANEL Routine 03/12/2024 3:34 PM HELICOPTER TECHNICIAN Osteoporosis without current pathological fracture, unspecified osteoporosis type PTH Routine 03/12/2024 3:34 PM HELICOPTER TECHNICIAN Osteoporosis without current pathological fracture, unspecified osteoporosis type PHOSPHORUS Routine 03/12/2024 3:34 PM HELICOPTER TECHNICIAN Osteoporosis without current pathological fracture, unspecified osteoporosis type OSTEOCALCIN Routine 03/12/2024 3:34 PM HELICOPTER TECHNICIAN Osteoporosis without current pathological fracture, unspecified osteoporosis type ALKALINE PHOSPHATASE, BONE SPECIFIC Routine 03/12/2024 3:34 PM HELICOPTER TECHNICIAN Osteoporosis without current pathological fracture, unspecified osteoporosis type GAMMA GT Routine 03/12/2024 3:34 PM HELICOPTER TECHNICIAN Osteoporosis without current pathological fracture, unspecified osteoporosis type XR CHEST PA LATERAL 2 VIEWS Schedule Routine, Read Routine (OP Routine) 03/12/2024 2:41 PM HELICOPTER TECHNICIAN Mild persistent asthma without complication HEPATITIS PANEL, ACUTE Routine 11/28/2020 5:33 PM CDT from Last 3 Months or Most Recently Relevant to Health Maintenance Results * eGFR (04/25/2024 10:00 AM HELICOPTER TECHNICIAN) eGFR >90 >=60 mL/min/1. 73 m2 Comment: [...] was last reviewed 2021. Testing performed by: [facility], [address] [place] [address] Blood 04/25/2024 10:0 0 AM HELICOPTER TECHNICIAN 04/25/2024 10:16 AM HELICOPTER TECHNICIAN Rekha Osborne MD LAB BLOOD ORDERABLES Final Result [facility]A [facility] [address] [place] [address] * (ABNORMAL) Differential, auto (04/25/2024 10:00 AM HELICOPTER TECHNICIAN) Neutrophil abs 8.6(H) 1.5 - 6.5 K/cumm Comment:Testing performed by : [facility], [facility] 2, [address] [place] [address] Imm gran abs 0.5(H) 0.0 - 0.1 K/cumm CERNER BJWCH Comment:Testing performed by : [facility], [facility] 2, [address] [place] [address] Lymphocyte abs 2.3 0.8 - 3.3 K/cumm CERNER BJWCH Comment:Testing performed by : [facility], [facility] 2, [address] [place] [address] Monocyte abs 1.4(H) 0.2 - 0.8 K/cumm CERNER BJWCH Comment:Testing performed by : [facility], [facility] 2, [address] [place] [address] Eosinophil abs 0.1 0.0 - 0.5 K/cumm CERNER BJWCH Comment:Testing performed by : [facility] 2, [address] [place] [address] Basophil abs 0.2(H) 0.0 - 0.1 K/cumm CERNER BJWCH Comment:Testing performed by : [facility], [facility] 2, [address] [place] [address] Neutrophil pct 65.5 % CERNER [facility] Comment: Interpretive Data Percent cell count reference ranges are not reported, since discordance with absolute values may lead to misinterpretation of CBC data. Current Interpretive Data was last revised on 2017. Testing performed by: [facility] 2, [address] [place] [address] Imm gran pct 4.0 % CERNER BJ[facility] Comment: Interpretive Data Percent cell count reference ranges are not reported, since discordance with absolute values may lead to misinterpretation of CBC data. Current Interpretive Data was last revised on 2017. Testing performed by: [facility] 2, [address] [place] [address] Lymphocyte pct 17.2 % CERNER BJW[facility] Comment: Interpretive Data Percent cell count reference ranges are not reported, since discordance with absolute values may lead to misinterpretation of CBC data. Current Interpretive Data was last revised on 2017. Testing performed by: [facility], [facility] 2, [address] [place] [address] Monocyte pct 10.9 % PAULA CAMPOS Comment: Interpretive Data Percent cell count reference ranges are not reported, since discordance with absolute values may lead to misinterpretation of CBC data. Current Interpretive Data was last revised on 2017. Testing performed by: [facility], [facility] 2, [address] [place] [address] Eosinophil pct 0.7 % PAULA CAMPOS Comment: Interpretive Data Percent cell count reference ranges are not reported, since discordance with absolute values may lead to misinterpretation of CBC data. Current Interpretive Data was last revised on 2017. Testing performed by: [facility] 2, [address] [place] [address] Basophil pct 1.7 % PAULA CAMPOS Comment: Interpretive Data Percent cell count reference ranges are not reported, since discordance with absolute values may lead to misinterpretation of CBC data. Current Interpretive Data was last revised on 2017. Testing performed by: [facility], [facility] 2, [address] [place] [address] Blood 04/25/2024 10:0 0 AM HELICOPTER TECHNICIAN 04/25/2024 10:05 AM HELICOPTER TECHNICIAN us Rekha Osborne MD LAB BLOOD ORDERABLES Final Result Performing Organization Address City/State/[facility] Co de Phone Number [facility] [address] [facility] Department [place] [address] * (ABNORMAL) CBC with auto differential (04/25/2024 10:00 AM HELICOPTER TECHNICIAN) WBC 13.1(H) 3.8 - 9.9 K/cumm Comment:Testing performed by : [facility], [facility] 2, [address] [place] [address] Hgb 15.1 13.0 - 17.5 g/dL PAULA CAMPOS Comment:Testing performed by : [facility] 2, [address] [place] [address] Hct 45.6 38.9 - 50.3 % CERNER [facility] Comment:Testing performed by : [facility], [facility] 2, [address] [place] [address] Plt 201 150 - 400 K/cumm CERNER [facility]JW[facility] Comment:Testing performed by : [place] [address], [address] [place] [address] MPV 12.4(H) 9.1 - 12.3 fL CERNER [facility] Comment:Testing performed by : [place] [address], [address] [place] [address] RBC 4.78 4.30 - 5.80 M/cumm CERNER BJW[facility] Comment:Testing performed by : [place] [address], [place] [address] MCV 95 81 - 96 fL CERNER [facility] Comment:Testing performed by : [place] [address], [address], [place] [address] MCH 31.6 27.1 - 33.3 pg CERNER BJW[facility] Comment:Testing performed by : [place] [address], [address] [place] [address] MCHC 33.1 32.3 - 35.7 g/dL CERNER [facility] Comment:Testing performed by : [address] [place] [address] RDW CV 16.8(H) 11.1 - 14.9 % CERNER BJWCH Comment:Testing performed by : [place] [address], [address] [place] [address] RDW SD 58.8(H) 35.7 - 48.1 fL CERNER BJW[facility] Comment:Testing performed by : [facility] 2, [address], [place] [address] NRBC abs 0.03(H) 0.00 - 0.01 K/cumm CERNER BJWCH Comment:Testing performed by : [facility], [facility] 2, [address] [place] [address] Blood 04/25/2024 10:0 0 AM HELICOPTER TECHNICIAN 04/25/2024 10:05 AM HELICOPTER TECHNICIAN Rekha Osborne MD LAB BLOOD ORDERABLES Final Result Performing Organization Address City/[facility]/ZIP Co de Phone Number [facility] [address] [facility] [email or web address] [address] * (ABNORMAL) Reticulocyte Count (04/25/2024 10:00 AM HELICOPTER TECHNICIAN) Retics, absolute 0.104(H) 0.020 - 0.087 M/cumm Comment:Testing performed by : [facility], [facility] 2, [address] [place] [address] Retics 2.2 0.4 - 2.9 % PAULA CAMPOS Comment:Testing performed by : [facility], [facility] 2, [address] [place] [address] Reticulocyte Hgb 32.9 30.5 - 38.0 pg PAULA CAMPOS Comment:Testing performed by : [facility], [facility] 2, [address] [place] [address] Blood 04/25/2024 10:0 0 AM HELICOPTER TECHNICIAN 04/25/2024 10:05 AM HELICOPTER TECHNICIAN Rekha Osborne MD LAB BLOOD ORDERABLES Final Result Performing Organization Address City/[facility]/ZIP Co de Phone Number [facility] [address]. [facility] [email or web address] [address] * Direct antiglobulin test (04/25/2024 10:00 AM HELICOPTER TECHNICIAN) HUMZA Poly Interp Negative Comment:Testing performed by : [facility], [address] [place] [address] Blood 04/25/2024 10:0 0 AM HELICOPTER TECHNICIAN 04/25/2024 10:16 AM HELICOPTER TECHNICIAN Rekha Osborne MD LAB BLOOD BANK TEST ORDERAB LES Final Result Performing Organization Address [facility] Co de Phone Number PA[facility]A [facility] [address]. [facility] [email or web address] [address] * Lactate dehydrogenase (LD) (04/25/2024 10:00 AM HELICOPTER TECHNICIAN) Lactate dehydrogenase (LDH) 139 100 - 250 Units/L Comment:Testing performed by : [facility], [address] [facility], [place] [address] Blood 04/25/2024 10:0 0 AM HELICOPTER TECHNICIAN 04/25/2024 10:16 AM HELICOPTER TECHNICIAN Rekha Osborne MD LAB BLOOD ORDERABLES Edited Result - Final Performing Organization Address [facility] de Phone Number GILMERNER [facility] [address] [employer]. [facility] [email or web address] [address] * (ABNORMAL) Haptoglobin (04/25/2024 10:00 AM HELICOPTER TECHNICIAN) Haptoglobin 221(H) 30 - 200 mg/dL Comment:Testing performed by : [facility], [address] [place] [address], [facility] [place] [address] Blood 04/25/2024 10:0 0 AM HELICOPTER TECHNICIAN 04/25/2024 1:35 PM HELICOPTER TECHNICIAN Rekha Osborne MD LAB BLOOD ORDERABLES Final Result Performing Organization Address [facility] Co de Phone Number GILMERNER [facility] [address] [employer] [facility] [email or web address] [address] * Comprehensive metabolic panel (04/25/2024 10:00 AM HELICOPTER TECHNICIAN) Sodium 139 135 - 145 mmol/L Comment:Testing performed by : [facility], [address], [place] [address] Potassium, pl 4.1 3.3 - 4.9 mmol/L CERNER BJWCH Comment:Testing performed by : [facility], [address], [place] [address] Chloride 103 97 - 110 mmol/L CERNER B[facility] Comment:Testing performed by : [facility], [address], [place] [address] CO2 26 22 - 32 mmol/L CERNER BJWCH Comment:Testing performed by : [facility], [address], [place] [address] Anion gap 10 2 - 15 mmol/L CERNER BJWCH Comment:Testing performed by : [facility], [address], [place] [address] BUN 15 6 - 25 mg/dL CERNER BJWCH Comment:Testing performed by : [facility], [address], [place] [address] Creatinine 0.80 0.80 - 1.30 mg/dL CERNER BJWCH Comment:Testing performed by : [facility], [address], [place] [address] Glucose 98 70 - 199 mg/dL CERNER [...] was last revised 2022. Testing performed by: [facility], [address], [place] [address] Calcium 9.3 8.5 - 10.3 mg/dL CERNER BJWCH Comment:Testing performed by : [facility], [address], [place] [address] Bilirubin, total 0.2 0.1 - 1.2 mg/dL CERNER BJWCH Comment:Testing performed by : [facility], [address], [place] [address] Protein, pl 6.8 6.5 - 8.5 g/dL CERNER BJWCH Comment:Testing performed by : [facility], [address], [place] [address] Albumin 3.7 3.5 - 5.0 g/dL CERNER BJWCH Comment:Testing performed by : [facility], [address], [place] [address] Alk phos 122 40 - 130 Units/L CERNER BJWCH Comment:Testing performed by : [facility], [address], [place] [address] ALT 29 7 - 55 Units/L CERNER [facility] Comment:Testing performed by : [facility], [address], [place] [address] AST 23 10 - 50 Units/L CERNER BJWCH Comment:Testing performed by : [facility], [address], [place] [address] Blood 04/25/2024 10:0 0 AM HELICOPTER TECHNICIAN 04/25/2024 10:16 AM HELICOPTER TECHNICIAN us Rekha Osborne MD LAB BLOOD ORDERABLES Edited Result - Final PAULA [facility] [address] [place] [address] * XR Scoliosis 2 or 3 Views (03/12/2024 4:00 PM HELICOPTER TECHNICIAN) Anatomical Region Laterality Modality Spine N/A Computed Radiogr aphy 03/12/2024 4:28 PM HELICOPTER TECHNICIAN Impressions 03/12/2024 4:28 PM HELICOPTER TECHNICIAN No compression deformities of the spine. Electronically signed by: Inderjit Valle D.O. Narrative 03/12/2024 4:28 PM HELICOPTER TECHNICIAN EXAMINATION: XR SCOLIOSIS AP AND LATERAL HISTORY: osteoporosis COMPARISON: Prior studies, including CT 03/06/2022 FINDINGS: No significant scoliotic curvature. Mild anterior sagittal imbalance, neutral coronal balance. No pelvic obliquity. Normal vertebral body heights. Apparent degenerative disc changes at L1-L2 may be related to overlying bowel gas. Multiple sternotomy wires, several which are fractured. Procedure Note Inderjti Valle, DO - 03/12/2024 EXAMINATION: XR SCOLIOSIS [...] Final Result * eGFR (03/12/2024 3:34 PM HELICOPTER TECHNICIAN) eGFR >90 >=60 mL/min/1. 73 m2 Comment: [...] last reviewed 2021. Blood 03/12/2024 3:34 PM HELICOPTER TECHNICIAN 03/12/2024 4:13 PM HELICOPTER TECHNICIAN Rick Fabian MD LAB BLOOD ORDERABLES Final Resul t Performing Organization Address [facility] Co de Phone Number [facility] [email or web address] [address] * Beta-CrossLaps (Beta-CTx) (03/12/2024 3:34 PM HELICOPTER TECHNICIAN) Pathologist [facility] Beta-CTx 455 pg/mL Comment: Interpretive Data Female: Premenopausal: 136 - 689 pg/mL Postmenopausal: 177 - 1015 pg/mL Male: 30 - 50 years: 131 - 670 pg/mL 51 - 70 years: 171 - 1060 pg/mL > 70 years: 152 - 858 pg/mL Current interpretive data was last revised on 2023. Blood 03/12/2024 3:34 PM HELICOPTER TECHNICIAN 03/12/2024 4:10 PM HELICOPTER TECHNICIAN Rick Fabian MD LAB BLOOD ORDERABLES Final Resul t Performing Organization Address [facility] de Phone Number PAULA [facility] [email or web address] [address] * Alkaline phosphatase, bone specific (03/12/2024 3:34 PM HELICOPTER TECHNICIAN) [facility] Alk phos, bone 13 0 - 20 mcg/L [facility] Lab Comment: ADDITIONAL INFORMATION Liver-derived alkaline phosphatase (ALP) increases apparent measured bone alkaline phosphatase (BAP) in this assay by 2.5 mcg/L to 5.8 mcg/L for every 100 U/L of liver ALP. Accordingly, serum specimens with significant elevations of liver ALP activity may yield artificially elevated results in the BAP assay. Test Performed by: [facility] [address] [place] [address] Camera Machinist: Imelda Perez Ph.D.; CLIA# [id number] Blood 03/12/2024 3:34 PM HELICOPTER TECHNICIAN 03/12/2024 5:05 PM HELICOPTER TECHNICIAN Rick Fabian MD LAB BLOOD ORDERABLES Final Resul t Performing Organization Address [facility] Co de Phone Number PAULA [facility] [email or web address] [address] [facility] * Osteocalcin (03/12/2024 3:34 PM HELICOPTER TECHNICIAN) Osteocalcin See Comment Comment: Credited; Hemolyzed Specimen Interpretive Data Female: Premenopausal: 7.6 - 35.1 ng/mL Postmenopausal: 7.3 - 38.5 ng/mL Male: 30 - 50 years: 8.4 - 36.7 ng/mL > 50 years: 9.9 - 35.6 ng/mL Current interpretive data was last revised on 2021. Blood 03/12/2024 3:34 PM HELICOPTER TECHNICIAN 03/12/2024 4:10 PM HELICOPTER TECHNICIAN us Rick Fabian MD LAB BLOOD ORDERABLES Final Resul t Performing Organization Address [facility] de Phone Number PAULA [facility] [email or web address] [address] * Phosphorus (03/12/2024 3:34 PM HELICOPTER TECHNICIAN) Phosphorus, pl 4.1 2.3 - 4.5 mg/dL Blood 03/12/2024 3:34 PM HELICOPTER TECHNICIAN 03/12/2024 4:10 PM HELICOPTER TECHNICIAN us Rick Fabian MD LAB BLOOD ORDERABLES Final Resul t Performing Organization Address [facility] de Phone Number PAULA [facility] [email or web address] [address] * PTH (03/12/2024 3:34 PM HELICOPTER TECHNICIAN) PTH 29 15 - 65 pg/mL Blood 03/12/2024 3:34 PM HELICOPTER TECHNICIAN 03/12/2024 4:10 PM HELICOPTER TECHNICIAN Rick Fabian MD LAB BLOOD ORDERABLES Final Resul t Performing Organization Address City/[facility]/ZIP Co de Phone Number [facility] Department [place] [address] * Gamma GT (03/12/2024 3:34 PM HELICOPTER TECHNICIAN) Pathologist [facility] GGT 44 10 - 50 Units/L Blood 03/12/2024 3:34 PM HELICOPTER TECHNICIAN 03/12/2024 4:10 PM HELICOPTER TECHNICIAN Rick Fabian MD LAB BLOOD ORDERABLES Final Resul t Performing Organization Address [facility] de Phone Number [facility] Department [place] [address] * (ABNORMAL) Comprehensive metabolic panel (03/12/2024 3:34 PM HELICOPTER TECHNICIAN) [facility] Sodium 138 135 - 145 mmol/L Potassium, pl 4.5 3.3 - 4.9 mmol/L [facility] Chloride 103 97 - 110 mmol/L [facility] CO2 26 22 - 32 mmol/L [facility] Anion gap 9 2 - 15 mmol/L [facility] BUN 16 6 - 25 mg/dL [facility] Creatinine 0.97 0.80 - 1.30 mg/dL [facility] Glucose 114 70 - 199 mg/dL [facility] Comment: Interpretive Data Fasting glucose >/= [...] 2022. Calcium 9.1 8.5 - 10.3 mg/dL [facility] Bilirubin, total 0.2 0.1 - 1.2 mg/dL [facility] Protein, pl 6.9 6.5 - 8.5 g/dL [facility] Albumin 3.4(L) 3.5 - 5.0 g/dL [facility] Alk phos 110 40 - 130 Units/L [facility] ALT 28 7 - 55 Units/L [facility] AST 32 10 - 50 Units/L [facility] Blood 03/12/2024 3:34 PM HELICOPTER TECHNICIAN 03/12/2024 4:10 PM HELICOPTER TECHNICIAN us Rick Fabian MD LAB BLOOD ORDERABLES Final Resul t [facility] Department [place] [address] * X-ray chest 2 views (03/12/2024 2:41 PM HELICOPTER TECHNICIAN) Anatomical Region Laterality Modality Body, Chest N/A Computed Radiogr aphy 03/12/2024 3:17 PM HELICOPTER TECHNICIAN Impressions 03/12/2024 3:17 PM HELICOPTER TECHNICIAN Comparison 12/17/2023. Heart size normal. Pediatric median sternotomy wires noted. No pneumothorax or pleural effusion. Clear lungs. Electronically signed by: Cyril Gilbert M.D. Narrative 03/12/2024 3:17 PM HELICOPTER TECHNICIAN EXAMINATION: 2 view chest radiograph Procedure Note Cyril Gilbert MD - 03/12/2024 EXAMINATION: 2 view chest radiograph IMPRESSION: Comparison 12/17/2023. Heart size normal. Pediatric median sternotomy wires noted. No pneumothorax or pleural effusion. Clear lungs. Electronically signed by: Cyril Gilbert M.D. Jam Sands MD IMG XR PROCEDURES Fi nal Result * Hepatitis panel, acute (11/28/2020 5:33 PM CDT) Hep A IgM Nonreactive Nonreactive [facility] Comment: Interpretive Data: If Hep A IgM Ab is reported as Equivocal, a new sample should be drawn in two weeks for testing. Current interpretive data was last revised on 19. Hep B core IgM Nonreactive Nonreactive [facility] Comment: Interpretive Data If HepB Core IgM Ab is reported as Equivocal, a new sample should be drawn in two weeks for testing. Current interpretive data was last revised on 19. Hep C Ab Nonreactive Nonreactive [facility] Comment:Antibodies to HCV no t detected. Does NOT exclude the possibility of recent exposure to HCV. HepBsAg Nonreactive Nonreactive [facility] Blood 11/28/2020 5:33 PM CDT 11/28/2020 5:53 PM CDT Jazzmine Mccartney NP LAB MICROBIO LOGY - GENERAL ORDERABLES Edited Result - Final [facility] [place] [address] from Last 3 Months or Most Recently Relevant to Health Maintenance Insurance [place] [facility] CHOICE [place] H[place]/PPO Address: [address] [address] [place] [address] [employer] OPEN [place] P[place] [facility] [place] H[place]/PPO Address: [address] [address] [place] [address] [facility] [place] [employer] OPEN ACCESS [facility] CHOICE [place] HMO/PPO Address: [place] [address] Advance Directives For more information, please contact: [phone] Documents on File Type Date Recorded 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 [address] [place] [address] Referring Physician Allergy and Immunology 01/11/19 Rekha Osborne MD [address] [place] [address] Medical Oncologist/Media Reconciliation Specialist Hematology 05/11/20
--- OUTSIDE RECORDS SUMMARY | 2024-06-10 15:40 | XMS_ITS | Encounter Summary ---
Author Organization [facility] Address [address] [place] [address] Phone Care Team Providers Care Tight Rope Walker Name Role Phone Zoila Gleason MD Primary Care Provider [phone] Rupal Isabel MD Unavailable [phone] Rekha Osborne MD Unavailable [phone] Mayuri Lyn RN Unavailable [phone] Michelle Colin SLIMER Unavailable [phone] Encounter Details Date Type Department Care Team [...] on file Legal Sex Male 1:53 AM BONER MEAT Gender Identity Male 10/02/2023 12:44 PM CDT [...] COVID: Suspected 04/21/2020 04/21/2020 04/21/2020 11:24 AM BONER MEAT Respiratory Infection (MICKEY), contact + droplet Comment:Automatically added due to negative COVID-19 result. 04/21/2020 04/21/2020 05/05/2020 3:0 6 AM BONER MEAT COVID: Suspected 04/21/2020 04/21/2020 04/21/2020 6:48 PM BONER MEAT COVID: Suspected 09/25/2020 09/25/2020 09/25/2020 10:11 AM CDT Rhino/Enterovirus 09/25/2020 09/25/2020 10/02/2020 3:05 AM CDT COVID: Recovered 11/29/2020 11/29/2020 03/29/2021 3:05 AM BONER MEAT COVID: Suspected 10/09/2021 10/09/2021 10/09/2021 9:37 AM CDT COVID: Suspected 03/06/2022 03/06/2022 03/06/2022 9:30 AM BONER MEAT RSV, droplet 03/06/2022 03/06/2022 03/13/2022 3:05 AM BONER MEAT COVID: Suspected 06/26/2022 06/26/2022 06/26/2022 5:59 PM CDT Coronavirus, droplet 06/26/2022 06/26/2022 023 3:06 AM CDT documented as of this encounter Care Teams Tight Rope Walker Relationship Specialty Start Date End Date Zoila Gleason MD [address] [place] [address] PCP - General 09/29/16 Rupal Isabel MD [address] [place] [address] [facility] [address] [place] [address] Referring Physician Allergy and Immunology 01/11/19 Rekha Osborne MD [address] [place] [address] Medical Oncologist/Painter Shipyard Hematology 05/11/20 Mayuri Lyn, RN 4590 [facility] [address] [place] [address] SHOP Outpatient Operator Specialist Communications 12/04/20 01/04/21 Michelle Colin LCSW 90 [facility] ([facility]) Mailstop [phone] [place] [address] SHOP Outpatient Operator Specialist Communications 10/19/21 11/16/21 documented as of this encounter
--- OUTSIDE RECORDS SUMMARY | 2024-06-10 15:40 | XMS_ITS | Encounter Summary ---
Author Organization [facility] Address [address] [place] [address] Phone Care Team Providers Care Die Tester Name Role Phone Zoila Gleason MD Primary Care Provider [phone] Rupal Isabel MD Unavailable [phone] Rekha Osborne MD Unavailable [phone] Mayuri Lyn RN Unavailable [phone] Michelle Colin ACCOUNT REVIEW SPECIALIST Unavailable [phone] Encounter Details Date Type Department Care Team [...] on file Legal Sex Male 1:53 AM DECONTAMINATION WORKER Gender Identity Male 10/02/2023 12:44 PM [...] COVID: Recovered 11/29/2020 11/29/2020 03/29/2021 3:05 AM DECONTAMINATION WORKER COVID: Suspected 10/09/2021 10/09/2021 10/09/2021 9:37 AM CDT COVID: Suspected 03/06/2022 03/06/2022 03/06/2022 9:30 AM DECONTAMINATION WORKER RSV, droplet 03/06/2022 03/06/2022 03/13/2022 3:05 AM DECONTAMINATION WORKER COVID: Suspected 06/26/2022 06/26/2022 06/26/2022 5:59 PM CDT Coronavirus, droplet 06/26/2022 06/26/2022 023 3:06 AM CDT documented as of this encounter Care Teams Die Tester Relationship Specialty Start Date End Date Zoila Gleason MD [address] [place] [address] PCP - General 09/29/16 Rupal Isabel MD [address] [place] [address] [address] [place] [address] Referring Physician Allergy and Immunology 01/11/19 Rekha Osborne MD [address] [place] [address] Medical Oncologist/Inspector Sheet Metal Parts Hematology 05/11/20 Mayuri Lyn, RN 4590 [facility] [address] [place], [place] [address] LAST Outpatient Vault Person 12/04/20 01/04/21 Michelle Colin, ACCOUNT REVIEW SPECIALIST 4590 [facility] ([facility] Mailstop [phone] [place] [address] LAST Outpatient Vault Person 10/19/21 11/16/21 documented as of this encounter
--- OUTSIDE RECORDS SUMMARY | 2024-06-10 15:40 | XMS_ITS | Encounter Summary ---
Author Organization [facility] Address [address] [place] [address] Phone Care Team Providers Care Travel Accommodations Rater Name Role Phone Zoila Gleason MD Primary Care Provider [phone] Rupal Isabel MD Unavailable [phone] Rekha Osborne MD Unavailable [phone] Mayuri Lyn RN Unavailable [phone] Michelle ColinW Unavailable [phone] Encounter Details Date Type Department Care Team [...] than three times a week 12/10/2020 Attends Religion Services Not on file 12/10 Active Member [...] place to sleep or slept in a half-way (including now)? No 12/10/2020 Sex and Gender Information Value Date Recorded Sex Assigned at Not on file Legal Sex Male 1:53 AM PYTHON PROGRAMMER Gender Identity Male 10/02/2023 12:44 PM [...] COVID: Recovered 11/29/2020 11/29/2020 03/29/2021 3:05 AM PYTHON PROGRAMMER COVID: Suspected 10/09/2021 10/09/2021 10/09/2021 9:37 AM CDT COVID: Suspected 03/06/2022 03/06/2022 03/06/2022 9:30 AM PYTHON PROGRAMMER RSV, droplet 03/06/2022 03/06/2022 03/13/2022 3:05 AM PYTHON PROGRAMMER COVID: Suspected 06/26/2022 06/26/2022 06/26/2022 5:59 PM CDT Coronavirus, droplet 06/26/2022 06/26/2022 023 3:06 AM CDT documented as of this encounter Care Teams Travel Accommodations Rater Relationship Specialty Start Date End Date Zoila Glaeson MD [address] [place] [address] PCP - General 09/29/16 Rupal Isabel MD 10 [facility] [address] [place] [address] Referring Physician Allergy and Immunology 01/11/19 Rekha Osborne MD [address] [place] [address] Medical Oncologist/Currency Machine Operator Hematology 05/11/20 Mayuri Lyn, RN 4590 [facility] [address] [place] [address] SHOP Outpatient [place] Line Attendant 12/04/20 01/04/21 Michelle Colin LCSW 4590 [facility] ([facility] Mailstop [phone] [place] [address] SHOP Outpatient [place] Line Attendant 10/19/21 11/16/21 documented as of this encounter
--- OUTSIDE RECORDS SUMMARY | 2024-06-10 15:40 | XMS_ITS | Encounter Summary ---
Author Organization [facility] Address [address] [place] [address] Phone Care Team Providers Care Cutting Supervisor Name Role Phone Zoila Gleason MD Primary Care Provider Rupal Isabel MD Unavailable [phone] Rekha Osborne MD Unavailable [phone] Mayuri Lyn RN Unavailable [phone] Michelle Colin SUPPORT ENGINEER Unavailable [phone] Encounter Details Date Type Department Care Team [...] on file Legal Sex Male 1:53 AM TONSORIAL ARTIST Gender Identity Male 10/02/2023 12:44 PM CDT [...] COVID: Recovered 11/29/2020 11/29/2020 03/29/2021 3:05 AM TONSORIAL ARTIST COVID: Suspected 10/09/2021 10/09/2021 10/09/2021 9:37 AM CDT COVID: Suspected 03/06/2022 03/06/2022 03/06/2022 9:30 AM TONSORIAL ARTIST RSV, droplet 03/06/2022 03/06/2022 03/13/2022 3:05 AM TONSORIAL ARTIST COVID: Suspected 06/26/2022 06/26/2022 06/26/2022 5:59 PM CDT Coronavirus, droplet 06/26/2022 06/26/2022 023 3:06 AM CDT documented as of this encounter Care Teams Cutting Supervisor Relationship Specialty Start Date End Date Zoila Gleason MD [address] [address] PCP - General 09/29/16 Rupal Isabel MD [address] [place] [address] [address] [place] [address] Referring Physician Allergy and Immunology 01/11/19 Rekha Osborne MD [address] [place] [address] Medical Oncologist/Cloth Printing Back Tender Hematology 05/11/20 Mayuri Lyn, RN 4590 [facility] [address] [place], [place] [address] LAST Outpatient Child Development Director 12/04/20 01/04/21 iMchelle Colin, SUPPORT ENGINEER 4590 [facility] ([facility]) Mailstop [phone] [place] [address] LAST Outpatient Child Development Director 10/19/21 11/16/21 documented as of this encounter
--- OUTSIDE RECORDS SUMMARY | 2024-06-10 15:40 | XMS_ITS | Encounter Summary ---
Author Organization [facility] Address [address] [place] [address] Phone Care Team Providers Care Memorial Adviser Name Role Phone Zoila Gleason MD Primary Care Provider Rupal Isabel MD Unavailable [phone] Rekha Osborne MD Unavailable Mayuri Lyn RN Unavailable [phone] Michelle Colin MANAGER PART Unavailable [phone] Encounter Details Date Type Department Care Team [...] on file Legal Sex Male 1:53 AM DISASTER RECOVERY MANAGER Gender Identity Male 10/02/2023 12:44 PM [...] COVID: Recovered 11/29/2020 11/29/2020 03/29/2021 3:05 AM DISASTER RECOVERY MANAGER COVID: Suspected 10/09/2021 10/09/2021 10/09/2021 9:37 AM CDT COVID: Suspected 03/06/2022 03/06/2022 03/06/2022 9:30 AM DISASTER RECOVERY MANAGER RSV, droplet 03/06/2022 03/06/2022 03/13/2022 3:05 AM DISASTER RECOVERY MANAGER COVID: Suspected 06/26/2022 06/26/2022 06/26/2022 5:59 PM CDT Coronavirus, droplet 06/26/2022 06/26/2022 023 3:06 AM CDT documented as of this encounter Care Teams Memorial Adviser Relationship Specialty Start Date End Date Zoila Gleason MD [address] [place] [address] PCP - General 09/29/16 Rupal Isabel MD [address] [place] [address] [address] [place] [address] Referring Physician Allergy and Immunology 01/11/19 Rekha Osborne MD [address] [place] [address] Medical Oncologist/Last Repairer Helper Hematology 05/11/20 Mayuri Lyn, RN 4590 [facility] [address] [place], [place] [address] LAST Outpatient Lining Maker 12/04/20 01/04/21 Michelle Colin, MANAGER PART 4590 [facility] Mailstop [phone] [place] [address] LAST Outpatient Lining Maker 10/19/21 11/16/21 documented as of this encounter
--- OUTSIDE RECORDS SUMMARY | 2024-06-10 15:40 | XMS_ITS | Encounter Summary ---
Author Organization [facility] Address [address] [place] [address] Care Team Providers Care Spring Intern Name Role Phone Zoila Gleason MD Primary Care Provider [phone] Rupal Isabel MD Unavailable [phone] Rekha Osborne MD Unavailable [phone] Mayuri Lyn RN Unavailable Michelle Colin LCSW Unavailable Encounter Details Date Type Department Care Team (Late st Contact Info) Description 03/31/2020 Telephone [facility] Ultrasound [place] [address] Wendy Storm, MS Social History [...] on file Legal Sex Male 1:53 AM UNDERCOVER AGENT Gender Identity Male 10/02/2023 12:44 PM CDT Sexual Orientation Don't know 11/15/2020 1: 06 PM CDT documented as of this encounter Plan of Treatment Not on file documented as of this encounter Visit Diagnoses Not on filedocumented in this encounter Additional Health Concerns Infection Onset Date Last Indicated Resolved Time COVID: Suspected 04/21/2020 04/21/2020 04/21/2020 11:24 AM UNDERCOVER AGENT Respiratory Infection (MICKEY), contact + droplet Comment:Automatically added due to negative COVID-19 result. 04/21/2020 04/21/2020 05/05/2020 3:0 6 AM UNDERCOVER AGENT COVID: Suspected 04/21/2020 04/21/2020 04/21/2020 6:48 PM UNDERCOVER AGENT COVID: Suspected 09/25/2020 09/25/2020 09/25/2020 10:11 AM CDT Rhino/Enterovirus 09/25/2020 09/25/2020 10/02/2020 3:05 AM CDT COVID: Recovered 11/29/2020 11/29/2020 03/29/2021 3:05 AM UNDERCOVER AGENT COVID: Suspected 10/09/2021 10/09/2021 10/09/2021 9:37 AM CDT COVID: Suspected 03/06/2022 03/06/2022 03/06/2022 9:30 AM UNDERCOVER AGENT RSV, droplet 03/06/2022 03/06/2022 03/13/2022 3:05 AM UNDERCOVER AGENT COVID: Suspected 06/26/2022 06/26/2022 06/26/2022 5:59 PM CDT Coronavirus, droplet 06/26/2022 06/26/2022 023 3:06 AM CDT documented as of this encounter Care Teams Spring Intern Relationship Specialty Start Date End Date Zoila Gleason MD [address] [place] [address] PCP - General 09/29/16 Rupal Isabel MD [address] [facility] [address] [place] [address] Referring Physician Allergy and Immunology 01/11/19 Rekha Osborne MD [address] [place] [address] Medical Oncologist/Sheet Layer Hematology 05/11/20 Mayuri Lyn, RN 4590 [facility] [address] [place] [address] LAST Outpatient Fac Engineer 12/04/20 01/04/21 Michelle Colin LCSW 4590 [facility] ([facility]) Mailstop [phone] [place] [address] LAST Outpatient Fac Engineer 10/19/21 11/16/21 documented as of this encounter
== END 2024-06-10 13:37 | disposition home or self-care (01) ==
LOC: ANHLAB 13:37
PROVIDERS: PCP Pediatrics; Visit Provider Internal Medicine
DX: D69.6 Thrombocytopenia, unspecified (principal)
CPT/HCPCS: 36415; 85025; 85055

== ENCOUNTER 2024-06-18 15:25 | Outpatient (CLI) | payer BC, MEDICAID, SELFPAY ==
--- OUTSIDE RECORDS SUMMARY | 2024-06-18 17:21 | XMS_ITS | Clinical Summary ---
Author Organization [employer] [facility] Address [address] [place] [address] Care Team Providers Care Television Anchor Name Role Phone Unavailable Primary Care Provider [...] WEEKS. 24 Packet 1 03/02/2023 2:48 PM PATIENT FINANCIAL SERVICES SPECIALIST 3 Active clindamycin phosphate (CLEOCIN T) 1 [...] procedure 4 Capsule 1 03/02/2023 2:45 PM PATIENT FINANCIAL SERVICES SPECIALIST 3 Active docusate sodium (COLACE) 100 mg capsule Take one capsule (100 mg) orally twice a day 60 Capsule 3 03/14/2023 12:03 PM PATIENT FINANCIAL SERVICES SPECIALIST 3 Active levothyroxine 112 mcg tablet Take one tablet (112 mcg) orally every morning 90 Tablet 2 03/14/2023 12:03 PM PATIENT FINANCIAL SERVICES SPECIALIST 3 Active pantoprazole (PROTONIX) 40 mg Tablet, Delayed Release (E.C.) Take one tablet (40 mg) orally daily 60 Tablet 03/14/2023 12:03 PM PATIENT FINANCIAL SERVICES SPECIALIST 3 Active sertraline (ZOLOFT) 100 mg tablet Take one tablet (50 mg) orally daily 90 Tablet 3 3 Active hydrocortisone sod succ, PF, (Solu-CORTEF Act-O-Vial, PF,) 100 mg/2 mL Recon Soln Inject 2 mL (100 mg) by intramuscular injection 1 time daily as needed for adrenal crisis. 10 Each 2 04/17/2023 6:40 PM PATIENT FINANCIAL SERVICES SPECIALIST 4 Active apixaban (Eliquis) 5 mg tablet Take 1 Tablet (5 mg) by mouth 2 times daily. 30 Tablet 1 04/08/2023 4:00 PM PATIENT FINANCIAL SERVICES SPECIALIST 4 Active nirmatrelvir-r itonavir (Paxlovid) 300(150mg x 2)-100 mg oral pack TAKE 2 TABLETS OF NIRMATRELVIR AND 1 TABLET OF RITONAVIR BY MOUTH TWICE DAILY FOR 5 DAYS 30 Each 4 Active predniSONE (DELTASONE) 1 mg tablet TAKE 1-4 TABLETS BY MOUTH DAILY DIRECTED BY PHYSICIAN. TAKE WITH 5 MG DAILY. 120 Tablet 2 04/25/2023 2:35 PM PATIENT FINANCIAL SERVICES SPECIALIST 4 Active nirmatrelvir-r itonavir (Paxlovid) 300(150mg x [...] failure. 90 Tablet 2 04/25/2023 2:35 PM PATIENT FINANCIAL SERVICES SPECIALIST 4 Active Immunizations Immunization Administration Dates Next [...]
--- OUTSIDE RECORDS SUMMARY | 2024-06-18 17:21 | XMS_ITS | Clinical Summary ---
Author Organization [facility] Address [address] [place] [address] Care Team Providers Care Senior Applications Engineer Name Role Phone Zoila Gleason MD Primary Care Provider [phone] Rupal Isabel MD Unavailable [phone] Rekha Osborne MD Unavailable [phone] Allergies Active Allergy Reactions Criticality Noted Date [...] Never used. 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 03/10/20 23 Active Solu-CORTEF Act-O-Vial, [...] total) by mouth daily 10/09/19 24 Active docusate sodium (COLACE) 100 mg capsuleIndication s:constipation Take 1 capsule (100 mg total) by mouth daily after dinner Active psyllium (KONSYL) powder Take 1 Application by mouth daily 1 tsp Active mirtazapine (REMERON) 15 mg tablet 03/02/20 24 Active Asmanex HFA 200 mcg/actuation inhaler Inhale 2 puffs 2 (two) times a day 02/17/20 24 Active dexAMETHasone (DECADRON) 4 mg tablet TAKE 10 TABLETS (40MG) BY MOUTH DAILY NEEDED FOR ITP FOR 4 DAYS 04/01/20 24 Active clonazePAM (KlonoPIN) 0.5 mg tablet 04/04/19 Active predniSONE (DELTASONE) 1 mg tablet PLEASE SEE ATTACHED FOR DETAILED DIRECTIONS 04/02/20 Active Atrovent HFA 17 mcg/actuation inhaler 03/18/20 Active testosterone 20.25 mg/1.25 gram (1.62 %) gel in metered-dose pump Place 20.25 mg on the skin daily 225 g 05/13/19 25 2024 Active avatrombopag (DOPTELET) 20 mg tabletIndications :Chronic ITP (idiopathic thrombocytopenia) (HCC) Take 1 tablet (20 mg total) by mouth daily Administer with food 90 tablet 3 05/24/19 Active avatrombopag (DOPTELET) 20 mg tablet 2 tablets (40 mg total) daily Administer with food 2024 Disconti nued(The rapy complete d) avatrombopag (DOPTELET) 20 mg tabletIndications :Chronic ITP (idiopathic thrombocytopenia) (HCC) Take 1 tablet (20 mg total) by mouth daily Administer with food 90 tablet 3 05/22/19 25 2024 Disconti nued(Reo rder) avatrombopag (DOPTELET) 20 mg tabletIndications :Chronic ITP (idiopathic thrombocytopenia) (HCC) Take 1 tablet (20 mg total) by mouth daily Administer with food 90 tablet 3 05/22/19 25 2024 Disconti nued(Reo rder) Active Problems Problem Noted Date Diagnosed Date [...] stooling. -As of 12/18/23 at 1300, per [facility] [phone] - E. Coli. -Repeat blood cultures NGTD -Received cefepime; changed to cefuroxime to complete a 7 day course. Source is suspected to be UTI -TTE neg for vegetations Leukocytosis 12/17/2023 Assessment & Plan (12/17/2023 8:50 PM CDT): CBC at [facility] 12/15 WBC 20.5 (81% neutrophils). Ddx includes [...] in AM. PVC (premature ventricular contraction) 09/27/19 22 Assessment & Plan (09/27/2021 2:53 PM CDT): [...] (12/01/2020): Added automatically from request for surgery [id number] Anemia 11/28/2020 Assessment & Plan (12/03/2020 11:37 AM CDT): Hgb 4.8 RANGE RIDER and s/p 4U pRBCs total. Hgb now [...] cytopenia, his initial presentation for thrombocytopenia to [facility] was in 2012 (17 yo) with [...] responded to steroid and rituximab last time ([id number]). During his last admission for UTI, he [...] bid - received stress dose steroids at [facility] - continue pred 5 BID - per [...] an anti-21 hydroxylase antibody to rule out Billingsley's as well as a low dose ACTH stim test at some point after 72 hours from last stress dose. He is very well appearing and does not have an indication for stress dosing at this time. - send anti-21 hydroxylase antibody (red top 2 ml) 2107 to [place] - consider ACTH stim test this admission [...] obtain anti-21 hydroxylase Ab to rule out Billingsley's disease. Assessment & Plan (12/29/2019 8:18 AM [...] patient on 11/07. 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 Followed by endocrinology at [facility]. Currently on 150 mcg levothyroxine daily. [...] Avoid concomitant administration of Levothyroxine with patient's RANGE RIDER iron. Separate dosing by at least 4 [...] Decrease PO Dilaudid to 2mg q4h - 7 - Continue PO Ativan 1.2 mg q6h [...] Type Department Care Team Description 05/24/2024 Documentation [facility] Hematology [facility] Floor [address] [place] [address] Rose Marie Zapata RMA Prior Auth (Doptelet Approved through 05/23/25) 05/24/2024 Documentation [facility] Hematology [facility] Floor [address] [place] [address] Saniya Alberts RN 05/13/2024 2:40 PM MOTOR COACH CHAUFFEUR Office Visit [facility] Endocrinology Metabolism and Lipid [address] [place] [address] Medicine 5th [place] [address] [place] [address] Jesenia Cottrell MD Adrenal insufficiency (Primary Dx); Arpita's syndrome (HCC); Low bone density for age; Hypogonadism in male; Vitamin D deficiency 04/25/2024 11:30 AM MOTOR COACH CHAUFFEUR Lab [facility] at [address] [address] AIHA (autoimmune hemolytic anemia) (HCC); Chronic ITP (idiopathic thrombocytopenia) (HCC) 04/25/2024 9:00 AM MOTOR COACH CHAUFFEUR Office Visit [facility] Hematology [address] [place] [address] Medical Office Building [address] [place] [address] Rekha Osborne MD AIHA (autoimmune hemolytic anemia) (HCC) (Primary Dx); Chronic ITP (idiopathic thrombocytopenia) (HCC); CVID (common variable immunodeficiency) (HCC); High risk medication use 04/25/2024 8:30 AM MOTOR COACH CHAUFFEUR Lab [facility] Oncology [address] [place] [address] [address] [place] [address] 04/11/2024 Orders Only [facility] Hematology [facility] Floor [address] [place] [address] Saniya Alberts RN 04/09/2024 Telephone [facility] Bone Health [address] 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/23/2019 Hypotension 04/22/2020 Acute kidney injury 10/10/2019 Acute cystitis due to enterobacter 01/04/2020 Down syndrome Personal history of COVID-19 10/2019 Clotting disorder Heart disease s/p WI secondary to severe anemia GI (gastrointestinal bleed) Acute respiratory failure wi th hypoxia (HCC) 08/20/2022 Family History Medical History Relation Name Comments Cancer Father Aidan Dima Aylin Hyperlipidemia Father Aidan Dima [place] Hypertension Father Aidan Ch Aylin Thyroid disease Mother Early Paternal Grandfather Pal [place] Heart attack Paternal Grandfather [place] Osteoporosis Paternal Grandfather [place] Anesthesia problems Neg Hx Broken bones Neg Hx Hip fracture Neg Hx Kyphosis Neg Hx Scoliosis Neg Hx Relation Name Status Comments Father Aidan Mastjanak Mother Paternal Grandfather [place] Social History [...] often do you attend chur ch or rastafari services? Never 10/11/2021 Do you belong to any clubs o r organizations such as congregational groups, unions, fraternal or athletic groups, or [...] on file Legal Sex Male 1:53 AM MOTOR COACH CHAUFFEUR Gender Identity Male 10/02/2023 12:44 PM CDT Sexual Orientation Don't know 11/15/2020 1: 06 PM CDT Obstetrics History Last Filed Vital Signs Vital Sign Reading Time Taken Comments Blood Pressure 117/79 05/13/2024 2:31 PM MOTOR COACH CHAUFFEUR Pulse 90 05/13/2024 2:31 PM MOTOR COACH CHAUFFEUR Temperature 36.9 C (98.5 F) 05/13/2024 2:31 PM MOTOR COACH CHAUFFEUR Respiratory Rate 18 03/12/2024 2:48 PM MOTOR COACH CHAUFFEUR Oxygen Saturation 96% 03/12/2024 2:48 PM MOTOR COACH CHAUFFEUR Inhaled Oxygen Concentration - - Weight 60.8 kg (134 lb) 05/13/2024 2:31 PM MOTOR COACH CHAUFFEUR Height 160 cm (5' 3 ) 05/13/2024 2:31 PM MOTOR COACH CHAUFFEUR Body Mass Index 23.74 05/13/2024 2:31 PM MOTOR COACH CHAUFFEUR Plan of Treatment Health Maintenance Due Date [...] Diagnosis Comments EGFR Routine 04/25/2024 10:00 AM MOTOR COACH CHAUFFEUR AIHA (autoimmune hemolytic anemia) (HCC) Chronic ITP (idiopathic thrombocytopenia) (HCC) DIFFERENTIAL AUTO Routine 04/25/2024 10: 00 AM MOTOR COACH CHAUFFEUR AIHA (autoimmune hemolytic anemia) (HCC) Chronic ITP (idiopathic thrombocytopenia) (HCC) CBC WITH AUTO DIFFERENTIAL Routine 04/25/2024 10:00 AM MOTOR COACH CHAUFFEUR AIHA (autoimmune hemolytic anemia) (HCC) Chronic ITP (idiopathic thrombocytopenia) (HCC) COMPREHENSIVE METABOLIC PANEL Routine 04/25/2024 10:00 AM MOTOR COACH CHAUFFEUR AIHA (autoimmune hemolytic anemia) (HCC) Chronic ITP (idiopathic thrombocytopenia) (HCC) RETICULOCYTES Routine 04/25/2024 10:00 AM MOTOR COACH CHAUFFEUR AIHA (autoimmune hemolytic anemia) (HCC) Chronic ITP (idiopathic thrombocytopenia) (HCC) HAPTOGLOBIN Routine 04/25/2024 10:00 AM MOTOR COACH CHAUFFEUR AIHA (autoimmune hemolytic anemia) (HCC) Chronic ITP (idiopathic thrombocytopenia) (HCC) LACTATE DEHYDROGENASE Routine 04/25/2024 10:00 AM MOTOR COACH CHAUFFEUR AIHA (autoimmune hemolytic anemia) (HCC) Chronic ITP (idiopathic thrombocytopenia) (HCC) DIRECT ANTIGLOBULIN TEST Routine 04/25/2024 10:00 AM MOTOR COACH CHAUFFEUR AIHA (autoimmune hemolytic anemia) (HCC) Chronic ITP (idiopathic thrombocytopenia) (HCC) HEPATITIS PANEL, ACUTE Routine 5:33 PM CDT from Last 3 Months or Most Recently Relevant to Health Maintenance Results * eGFR (04/25/2024 10:00 AM MOTOR COACH CHAUFFEUR) eGFR >90 >=60 mL/min/1. 73 m2 Comment: [...] was last reviewed 2021. Testing performed by: [facility], [address] [place] [address] Blood 04/25/2024 10:0 0 AM MOTOR COACH CHAUFFEUR 04/25/2024 10:16 AM MOTOR COACH CHAUFFEUR Rekha Osborne MD LAB BLOOD ORDERABLES Final Result [facility] [address] Department [place] [address] * (ABNORMAL) Differential, auto (04/25/2024 10:00 AM MOTOR COACH CHAUFFEUR) Pathologist [facility] Neutrophil abs 8.6(H) 1.5 - 6.5 K/cumm Comment:Testing performed by : [facility], [facility] [address], [address] [place] [address] Imm gran abs 0.5(H) 0.0 - 0.1 K/cumm PAULA CAMPOS Comment:Testing performed by : [facility], [facility] 2, [address] [place] [address] Lymphocyte abs 2.3 0.8 - 3.3 K/cumm CERNER BJWCH Comment:Testing performed by : [facility], [facility] 2, [address] [place] [address] Monocyte abs 1.4(H) 0.2 - 0.8 K/cumm CERNER BJWCH Comment:Testing performed by : [facility], [facility] 2, [address] [place] [address] Eosinophil abs 0.1 0.0 - 0.5 K/cumm CERNER BJWCH Comment:Testing performed by : [facility], [facility] 2, [address] [place] [address] Basophil abs 0.2(H) 0.0 - 0.1 K/cumm CERNER BJWCH Comment:Testing performed by : [facility], [facility] 2, [address] [place] [address] Neutrophil pct 65.5 % CERNER BJWCH Comment: Interpretive Data Percent cell count reference ranges are not reported, since discordance with absolute values may lead to misinterpretation of CBC data. Current Interpretive Data was last revised on 2017. Testing performed by: [facility], [facility] 2, [address] [place] [address] Imm gran pct 4.0 % CERNER BJWCH Comment: Interpretive Data Percent cell count reference ranges are not reported, since discordance with absolute values may lead to misinterpretation of CBC data. Current Interpretive Data was last revised on 2017. Testing performed by: [facility], [facility] 2, [address] [place] [address] Lymphocyte pct 17.2 % CERNER BJWCH Comment: Interpretive Data Percent cell count reference ranges are not reported, since discordance with absolute values may lead to misinterpretation of CBC data. Current Interpretive Data was last revised on 2017. Testing performed by: [facility], [facility] 2, [address] [place] [address] Monocyte pct 10.9 % CERNER BJWCH Comment: Interpretive Data Percent cell count reference ranges are not reported, since discordance with absolute values may lead to misinterpretation of CBC data. Current Interpretive Data was last revised on 2017. Testing performed by: [facility], [facility] 2, [address] [place] [address] Eosinophil pct 0.7 % PAULA CAMPOS Comment: Interpretive Data Percent cell count reference ranges are not reported, since discordance with absolute values may lead to misinterpretation of CBC data. Current Interpretive Data was last revised on 2017. Testing performed by: [facility], [facility] 2, [address] [place] [address] Basophil pct 1.7 % PAULA CAMPOS Comment: Interpretive Data Percent cell count reference ranges are not reported, since discordance with absolute values may lead to misinterpretation of CBC data. Current Interpretive Data was last revised on 2017. Testing performed by: [facility] 2, [address] [place] [address] Blood 04/25/2024 10:0 0 AM MOTOR COACH CHAUFFEUR 04/25/2024 10:05 AM MOTOR COACH CHAUFFEUR us Rekha Osborne MD LAB BLOOD ORDERABLES Final Result PAULA MERAZWCH [address] [facility]. Department [place] [address] * (ABNORMAL) CBC with auto differential (04/25/2024 10:00 AM MOTOR COACH CHAUFFEUR) WBC 13.1(H) 3.8 - 9.9 K/cumm Comment:Testing performed by : [facility], [facility] 2, [address] [place] [address] Hgb 15.1 13.0 - 17.5 g/dL PAULA CAMPOS Comment:Testing performed by : [facility], [facility] 2, [address] [place] [address] Hct 45.6 38.9 - 50.3 % PAULA CAMPOS Comment:Testing performed by : [place] [address], [address] [place] [address] Plt 201 150 - 400 K/cumm CERNER BJWCH Comment:Testing performed by : [place] [address], [address] [place] [address] MPV 12.4(H) 9.1 - 12.3 fL CERNER BJWCH Comment:Testing performed by : [place] [address] [place] [address] RBC 4.78 4.30 - 5.80 M/cumm CERNER BJWCH Comment:Testing performed by : [place] [address] [place] [address] MCV 95 81 - 96 fL CERNER BJWCH Comment:Testing performed by : [place] [address] [place] [address] MCH 31.6 27.1 - 33.3 pg CERNER BJWCH Comment:Testing performed by : [place] [address] [place] [address] MCHC 33.1 32.3 - 35.7 g/dL CERNER BJWCH Comment:Testing performed by : [place] [address] [place] [address] RDW CV 16.8(H) 11.1 - 14.9 % CERNER BJWCH Comment:Testing performed by : [place] [address] [place] [address] RDW SD 58.8(H) 35.7 - 48.1 fL CERNER BJWCH Comment:Testing performed by : [place] [address] [place] [address] NRBC abs 0.03(H) 0.00 - 0.01 K/cumm CERARTHUR BJWCH Comment:Testing performed by : [place] [address] [place] [address] Blood 04/25/2024 10:0 0 AM MOTOR COACH CHAUFFEUR 04/25/2024 10:05 AM MOTOR COACH CHAUFFEUR Result [facility] Rekha Osborne MD LAB BLOOD ORDERABLES Final Result Performing Organization Address [facility] Co de Phone Number PAULA MERAZCH [address] [facility]. [facility] [address] * (ABNORMAL) Reticulocyte Count (04/25/2024 10:00 AM MOTOR COACH CHAUFFEUR) Retics, absolute 0.104(H) 0.020 - 0.087 M/cumm Comment:Testing performed by : [facility], [facility] [address], [address] [place] [address] Retics 2.2 0.4 - 2.9 % [facility] Comment:Testing performed by : [facility], [facility] [address], [address] [place] [address] Reticulocyte Hgb 32.9 30.5 - 38.0 pg [facility]A [facility] Comment:Testing performed by : [facility], [facility] [address], [address], [place] [address] Blood 04/25/2024 10:0 0 AM MOTOR COACH CHAUFFEUR 04/25/2024 10:05 AM MOTOR COACH CHAUFFEUR Result [facility] Rekha Osborne MD LAB BLOOD ORDERABLES Final Result Performing Organization Address [facility] Co de Phone Number PAULA MERAZCH [address] [facility]. [facility] [employer] [place] [address] * Direct antiglobulin test (04/25/2024 10:00 AM MOTOR COACH CHAUFFEUR) Pathologist [facility] HUMZA Poly Interp Negative Comment:Testing performed by : [facility], [address] [facility] [place] [address] Blood 04/25/2024 10:0 0 AM MOTOR COACH CHAUFFEUR 04/25/2024 10:16 AM MOTOR COACH CHAUFFEUR Result [facility] Rekha Osborne MD LAB BLOOD BANK TEST ORDERAB LES Final Result Performing Organization Address [facility]/ZIP Co de Phone Number PAULA MERAZWCH [address] [address] [facility] [employer] [place] [address] * Lactate dehydrogenase (LD) (04/25/2024 10:00 AM MOTOR COACH CHAUFFEUR) Lactate dehydrogenase (LDH) 139 100 - 250 Units/L Comment:Testing performed by : [facility], [address] [facility], [place] [address] Blood 04/25/2024 10:0 0 AM MOTOR COACH CHAUFFEUR 04/25/2024 10:16 AM MOTOR COACH CHAUFFEUR Rekha Osborne MD LAB BLOOD ORDERABLES Edited Result - Final Performing Organization Address [facility] de Phone Number PAULA BJWCH [address] [facility] [employer] [place] [address] * (ABNORMAL) Haptoglobin (04/25/2024 10:00 AM MOTOR COACH CHAUFFEUR) Haptoglobin 221(H) 30 - 200 mg/dL Comment:Testing performed by : [facility], [address] [place] [address], [place]., [address] Blood 04/25/2024 10:0 0 AM MOTOR COACH CHAUFFEUR 04/25/2024 1:35 PM MOTOR COACH CHAUFFEUR Rekha Osborne MD LAB BLOOD ORDERABLES Final Result Performing Organization Address [facility] Co de Phone Number PAULA BJWCH [address] [facility] [employer] [place] [address] * Comprehensive metabolic panel (04/25/2024 10:00 AM MOTOR COACH CHAUFFEUR) Sodium 139 135 - 145 mmol/L Comment:Testing performed by : [facility], [address] [facility], [place] [address] Potassium, pl 4.1 3.3 - 4.9 mmol/L CERNER BJWCH Comment:Testing performed by : [facility], [address], [place] [address] Chloride 103 97 - 110 mmol/L CERNER BJWCH Comment:Testing performed by : [facility], [address], [place] [address] CO2 26 22 - 32 mmol/L CERNER BJWCH Comment:Testing performed by : [facility], [address], [place] [address] Anion gap 10 2 - 15 mmol/L CERNER BJWCH Comment:Testing performed by : [facility], [address], [place] [address] BUN 15 6 - 25 mg/dL CERNER BJWCH Comment:Testing performed by : [facility], [address], [place] [address] Creatinine 0.80 0.80 - 1.30 mg/dL CERNER BJWCH Comment:Testing performed by : [facility], [address], [place] [address] Glucose 98 70 - 199 mg/dL CERNER [...] was last revised 2022. Testing performed by: [facility], [address], [place] [address] Calcium 9.3 8.5 - 10.3 mg/dL CERNER BJWCH Comment:Testing performed by : [facility], [address], [place] [address] Bilirubin, total 0.2 0.1 - 1.2 mg/dL CERNER BJWCH Comment:Testing performed by : [facility], [address], [place] [address] Protein, pl 6.8 6.5 - 8.5 g/dL CERNER BJW Comment:Testing performed by : [facility], [address], [place] [address] Albumin 3.7 3.5 - 5.0 g/dL CERNER BJWCH Comment:Testing performed by : [facility], [address], [place] [address] Alk phos 122 40 - 130 Units/L [facility]ER [facility]JD[facility] Comment:Testing performed by : [facility], [address], [place] [address] ALT 29 7 - 55 Units/L CERNER [facility]JD[facility] Comment:Testing performed by : [facility], [address], [place] [address] AST 23 10 - 50 Units/L CERNER [facility]JD[facility] Comment:Testing performed by : [facility], [address], [place] [address] Blood 04/25/2024 10:0 0 AM MOTOR COACH CHAUFFEUR 04/25/2024 10:16 AM MOTOR COACH CHAUFFEUR us Rekha Osborne MD LAB BLOOD ORDERABLES Edited Result - Final PAULA BJWCH [address] [address] Department [place] [address] * Hepatitis panel, acute (11/28/2020 5:33 PM CDT) Hep A IgM Nonreactive Nonreactive [facility] Comment: Interpretive Data: If Hep A IgM Ab is reported as Equivocal, a new sample should be drawn in two weeks for testing. Current interpretive data was last revised on 19. Hep B core IgM Nonreactive Nonreactive [facility] Comment: Interpretive Data If HepB Core IgM Ab is reported as Equivocal, a new sample should be drawn in two weeks for testing. Current interpretive data was last revised on 19. Hep C Ab Nonreactive Nonreactive [facility] Comment:Antibodies to HCV no t detected. Does NOT exclude the possibility of recent exposure to HCV. HepBsAg Nonreactive Nonreactive [facility] Blood 11/28/2020 5:33 PM CDT 11/28/2020 5:53 PM CDT us Jazzmine Mccartney NP LAB MICROBIO LOGY - GENERAL ORDERABLES Edited Result - Final [facility] Department [place] [address] from Last 3 Months or Most Recently Relevant to Health Maintenance Insurance [place] [facility] CHOICE PLUS [employer] OPEN ACCESS [facility] PPO OR [place]DE BL CHO[place] [facility] CHOICE PLUS [employer] OPEN ACCESS [place] [employer] OPEN ACCESS [facility] CHOICE PLUS Advance Directives For more information, please contact: [phone] Documents on File Type Date Recorded Patient Dag Coater Expl anation Power of Early Morning Babysitter 10/21/2021 12:58 PM ADVANCE DIRECTIVE 10/14/2019 12:35 [...] 5:09 PM 01/02/2021 6:56 PM Care Teams Senior Applications Engineer Relationship Specialty Start Date End Date Zoila Gleason MD [address] [place] [address] PCP - General 09/29/16 Rupal Isabel MD [address] [facility] [address] [place] [address] Referring Physician Allergy and Immunology 01/11/19 Rekha Osborne MD [address] [place] [address] Medical Oncologist/Sanitation Lead Hematology 05/11/20
--- OUTSIDE RECORDS SUMMARY | 2024-06-18 17:21 | XMS_ITS | Encounter Summary ---
Author Organization [facility] Address [address] [place] [address] Phone Care Team Providers Care Paper Pattern Folder Name Role Phone Zoila Gleason MD Primary Care Provider [phone] Rupal Isabel MD Unavailable [phone] Rekha Osborne MD Unavailable [phone] Encounter Details Date Type Department Care Team (Latest Contact Info) Description 06/02/2022 Orders Only [facility] Scanning, Provider Social History Tobacco [...] often do you attend chur ch or christian services? Never 10/11/2021 Do you belong to any clubs o r organizations such as mormon groups, unions, fraternal or athletic groups, or [...] in a retirement (including now)? 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
--- OUTSIDE RECORDS SUMMARY | 2024-06-18 17:22 | XMS_ITS | Referral Summary ---
Author Organization [facility] Address [address] [place] [address] Care Team Providers Care Boating Safety Officer Name Role Phone Zoila Gleason MD Primary Care Provider [phone] Rupal Isabel MD Unavailable Rekha Osborne MD Unavailable Encounters Date Type Department Care Team Description 05/24/2024 Documentation [facility] Hematology [address] [place] [phone] Rose Marie Zapata RMA Prior Auth (Doptelet Approved through 05/23/25) 05/24/2024 Documentation [facility] Hematology [address] [place] [address] [address] [place] [phone] Saniya Alberts RN 05/13/2024 2:40 PM SHAREPOINT ADMINISTRATOR Office Visit [facility] Endocrinology Metabolism and Lipid [address] [facility] Advanced Medicine 5th [place] [address] [place] [address] Jesenia Cottrell MD Adrenal insufficiency (Primary Dx); Arpita's syndrome (HCC); Low bone density for age; Hypogonadism in male; Vitamin D deficiency 04/25/2024 11:30 AM SHAREPOINT ADMINISTRATOR Lab [facility] at [address] [address] AIHA (autoimmune hemolytic anemia) (HCC); Chronic ITP (idiopathic thrombocytopenia) (HCC) 04/25/2024 8:30 AM SHAREPOINT ADMINISTRATOR Lab [facility] Oncology [address] [place] [address] [address] [place] [address] 04/25/2024 9:00 AM SHAREPOINT ADMINISTRATOR Office Visit [facility] Hematology [address] [facility] Medical Office Building 2 [address] [place] [phone] Rekha Osborne MD AIHA (autoimmune hemolytic anemia) (HCC) (Primary Dx); Chronic ITP (idiopathic thrombocytopenia) (HCC); CVID (common variable immunodeficiency) (HCC); High risk medication use 04/11/2024 Orders Only [facility] Hematology [address] [facility] Floor 6 [place] [phone] Saniya Alberts, ZOFIA 04/09/[address] 5th [place] [address] [place] [phone] Kobi Og MD 04/01/2024 Telephone [facility] Hematology [facility] Floor 6 [place] [address] Saniya Alberts, ZOFIA from Last 3 Months Allergies Active Allergy [...] Never used. 07/07/19 21 Active Darius Rene [facility] spacer USE WITH INHALER DIRECTED [...] 1 tablet (112 mcg total) by mouth pig machine crane operator before breakfast 03/10/20 23 Active Solu-CORTEF [...] NEEDED FOR ITP FOR 4 DAYS 04/01/20 Active clonazePAM (KlonoPIN) 0.5 mg tablet 04/04/19 [...] stooling. -As of 12/18/23 at 1300, per [facility] [phone] - E. Coli. -Repeat blood cultures NGTD -Received cefepime; changed to cefuroxime to complete a 7 day course. Source is suspected to be UTI -TTE neg for vegetations Leukocytosis 12/17/2023 Assessment & Plan (12/17/2023 8:50 PM CDT): CBC at [facility] 12/15 WBC 20.5 (81% neutrophils). Ddx includes [...] (12/01/2020): Added automatically from request for surgery [id number] Anemia 11/28/2020 Assessment & Plan (12/03/2020 11:37 AM CDT): Hgb 4.8 SALAD MAKER and s/p 4U pRBCs total. Hgb now [...] Neutropenic fever 09/25/2020 Idiopathic thrombocytopenic purpura (ITP) ([facility]/ [facility]) 07/09/2020 Assessment & Plan (12/01/2020 2:02 [...] cytopenia, his initial presentation for thrombocytopenia to [facility] was in 2012 (17 yo) with [...] responded to steroid and rituximab last time ([id number]). During his last admission for UTI, he [...] bid - received stress dose steroids at [facility] - continue pred 5 BID - per [...] an anti-21 hydroxylase antibody to rule out Lorain's as well as a low dose ACTH stim test at some point after 72 hours from last stress dose. He is very well appearing and does not have an indication for stress dosing at this time. - send anti-21 hydroxylase antibody (red top 2 ml) 2107 to [facility] - consider ACTH stim test this admission [...] obtain anti-21 hydroxylase Ab to rule out Lorain's disease. Assessment & Plan (12/29/2019 8:18 AM [...] patient on 11/07. CVID (common variable immunodeficiency) ([facility] ) 04/16/2018 Assessment & Plan (12/19/2023 [...] AM CDT): Stable. Followed by endocrinology at [facility]. Currently on 150 mcg levothyroxine daily. [...] Avoid concomitant administration of Levothyroxine with patient's SALAD MAKER iron. Separate dosing by at least 4 [...] often do you attend chur ch or nondenominational services? Never 10/11/2021 Do you belong to any clubs o r organizations such as presybeterian groups, unions, fraternal or athletic groups, or [...] on file Legal Sex Male 1:53 AM SHAREPOINT ADMINISTRATOR Gender Identity Male 10/02/2023 12:44 PM CDT Sexual Orientation Don't know 11/15/2020 1: 06 PM CDT Last Filed Vital Signs Vital Sign Reading Time Taken Comments Blood Pressure 117/79 05/13/2024 2:31 PM SHAREPOINT ADMINISTRATOR Pulse 90 05/13/2024 2:31 PM SHAREPOINT ADMINISTRATOR Temperature 36.9 C (98.5 F) 05/13/2024 2:31 PM SHAREPOINT ADMINISTRATOR Respiratory Rate 18 03/12/2024 2:48 PM SHAREPOINT ADMINISTRATOR Oxygen Saturation 96% 03/12/2024 2:48 PM SHAREPOINT ADMINISTRATOR Inhaled Oxygen Concentration - - Weight 60.8 kg (134 lb) 05/13/2024 2:31 PM SHAREPOINT ADMINISTRATOR Height 160 cm (5' 3 ) 05/13/2024 2:31 PM SHAREPOINT ADMINISTRATOR Body Mass Index 23.74 05/13/2024 2:31 PM SHAREPOINT ADMINISTRATOR Plan of Treatment Not on file Procedures Procedure Name Priority Date/Time Associated Diagnosis Comments EGFR Routine 04/25/2024 10:00 AM SHAREPOINT ADMINISTRATOR AIHA (autoimmune hemolytic anemia) (HCC) Chronic ITP (idiopathic thrombocytopenia) (HCC) DIFFERENTIAL AUTO Routine 04/25/2024 10: 00 AM SHAREPOINT ADMINISTRATOR AIHA (autoimmune hemolytic anemia) (HCC) Chronic ITP (idiopathic thrombocytopenia) (HCC) CBC WITH AUTO DIFFERENTIAL Routine 04/25/2024 10:00 AM SHAREPOINT ADMINISTRATOR AIHA (autoimmune hemolytic anemia) (HCC) Chronic ITP (idiopathic thrombocytopenia) (HCC) COMPREHENSIVE METABOLIC PANEL Routine 04/25/2024 10:00 AM SHAREPOINT ADMINISTRATOR AIHA (autoimmune hemolytic anemia) (HCC) Chronic ITP (idiopathic thrombocytopenia) (HCC) RETICULOCYTES Routine 04/25/2024 10:00 AM SHAREPOINT ADMINISTRATOR AIHA (autoimmune hemolytic anemia) (HCC) Chronic ITP (idiopathic thrombocytopenia) (HCC) HAPTOGLOBIN Routine 04/25/2024 10:00 AM SHAREPOINT ADMINISTRATOR AIHA (autoimmune hemolytic anemia) (HCC) Chronic ITP (idiopathic thrombocytopenia) (HCC) LACTATE DEHYDROGENASE Routine 04/25/2024 10:00 AM SHAREPOINT ADMINISTRATOR AIHA (autoimmune hemolytic anemia) (HCC) Chronic ITP (idiopathic thrombocytopenia) (HCC) DIRECT ANTIGLOBULIN TEST Routine 04/25/2024 10:00 AM SHAREPOINT ADMINISTRATOR AIHA (autoimmune hemolytic anemia) (HCC) Chronic ITP (idiopathic thrombocytopenia) (HCC) HEPATITIS PANEL, ACUTE Routine 5:33 PM CDT from Last 3 Months or Most Recently Relevant to Health Maintenance Results * eGFR (04/25/2024 10:00 AM SHAREPOINT ADMINISTRATOR) eGFR >90 >=60 mL/min/1. 73 m2 Comment: [...] was last reviewed 2021. Testing performed by: [facility], [address] [place] [address] Blood 04/25/2024 10:0 0 AM SHAREPOINT ADMINISTRATOR 04/25/2024 10:16 AM SHAREPOINT ADMINISTRATOR Rekha Osborne MD LAB BLOOD ORDERABLES Final Result [facility] [address] Department [place] [address] * (ABNORMAL) Differential, auto (04/25/2024 10:00 AM SHAREPOINT ADMINISTRATOR) Neutrophil abs 8.6(H) 1.5 - 6.5 K/cumm Comment:Testing performed by : [facility], [facility], [address] [place] [address] Imm gran abs 0.5(H) 0.0 - 0.1 K/cumm CERNER [facility] Comment:Testing performed by : [facility], [facility], [address] [place] [address] Lymphocyte abs 2.3 0.8 - 3.3 K/cumm CERNER [facility] Comment:Testing performed by : [facility], [facility], [address] [place] [address] Monocyte abs 1.4(H) 0.2 - 0.8 K/cumm CERNER [facility] Comment:Testing performed by : [facility] 2, [address] [place] [address] Eosinophil abs 0.1 0.0 - 0.5 K/cumm CERNER [facility] Comment:Testing performed by : [facility] 2, [address] [place] [address] Basophil abs 0.2(H) 0.0 - 0.1 K/cumm CERNER [facility] Comment:Testing performed by : [facility], [facility], [address] [place] [address] Neutrophil pct 65.5 % [facility] Comment: Interpretive Data Percent cell count reference ranges are not reported, since discordance with absolute values may lead to misinterpretation of CBC data. Current Interpretive Data was last revised on 2017. Testing performed by: [facility], [facility], [address] [place] [address] Imm gran pct 4.0 % C[facility]ER [facility] Comment: Interpretive Data Percent cell count reference ranges are not reported, since discordance with absolute values may lead to misinterpretation of CBC data. Current Interpretive Data was last revised on 2017. Testing performed by: [facility], [facility], [address] [place] [address] Lymphocyte pct 17.2 % C[facility]ER [facility] Comment: Interpretive Data Percent cell count reference ranges are not reported, since discordance with absolute values may lead to misinterpretation of CBC data. Current Interpretive Data was last revised on 2017. Testing performed by: [facility], [facility], [address] [place] [address] Monocyte pct 10.9 % CERNER [facility] Comment: Interpretive Data Percent cell count reference ranges are not reported, since discordance with absolute values may lead to misinterpretation of CBC data. Current Interpretive Data was last revised on 2017. Testing performed by: [facility], [facility], [address] [place] [address] Eosinophil pct 0.7 % C[facility]ER [facility] Comment: Interpretive Data Percent cell count reference ranges are not reported, since discordance with absolute values may lead to misinterpretation of CBC data. Current Interpretive Data was last revised on 2017. Testing performed by: [facility], [facility], [address] [place] [address] Basophil pct 1.7 % C[facility]ER [facility] Comment: Interpretive Data Percent cell count reference ranges are not reported, since discordance with absolute values may lead to misinterpretation of CBC data. Current Interpretive Data was last revised on 2017. Testing performed by: [facility], [facility], [address] [place] [address] Blood 04/25/2024 10:0 0 AM SHAREPOINT ADMINISTRATOR 04/25/2024 10:05 AM SHAREPOINT ADMINISTRATOR us Rekha Osborne MD LAB BLOOD ORDERABLES Final Result [facility] [address] [facility]. Department [place] [address] * (ABNORMAL) CBC with auto differential (04/25/2024 10:00 AM SHAREPOINT ADMINISTRATOR) WBC 13.1(H) 3.8 - 9.9 K/cumm Comment:Testing performed by : [facility] 2, [address] [place] [address] Hgb 15.1 13.0 - 17.5 g/dL PAULA [facility]AMP[facility] Comment:Testing performed by : [place] [address], [address] [place] [address] Hct 45.6 38.9 - 50.3 % PAULA CAMPOS Comment:Testing performed by : [place] [address], [address] [place] [address] Plt 201 150 - 400 K/cumm PAULA CAMPOS Comment:Testing performed by : [facility] 2, [address] [place] [address] MPV 12.4(H) 9.1 - 12.3 fL PAULA CAMPOS Comment:Testing performed by : [facility] 2, [address] [place] [address] RBC 4.78 4.30 - 5.80 M/cumm PAULA CAMPOS Comment:Testing performed by : [facility] 2, [address] [place] [address] MCV 95 81 - 96 fL PAULA CAMPOS Comment:Testing performed by : [facility] 2, [address] [place] [address] MCH 31.6 27.1 - 33.3 pg PAUAL CAMPOS Comment:Testing performed by : [facility], [facility], [address] [place] [address] MCHC 33.1 32.3 - 35.7 g/dL PAULA CAMPOS Comment:Testing performed by : [facility] 2, [address] [place] [address] RDW CV 16.8(H) 11.1 - 14.9 % PAULA CAMPOS Comment:Testing performed by : [facility] 2, [address] [place] [address] RDW SD 58.8(H) 35.7 - 48.1 fL PAULA CAMPOS Comment:Testing performed by : [place] [address], [address] [place] [address] NRBC abs 0.03(H) 0.00 - 0.01 K/cumm PAULA CAMPOS Comment:Testing performed by : [place] [address], [address] [place] [address] Blood 04/25/2024 10:0 0 AM SHAREPOINT ADMINISTRATOR 04/25/2024 10:05 AM SHAREPOINT ADMINISTRATOR Rekha Osborne MD LAB BLOOD ORDERABLES Final Result [facility] [address] [facility] [place] [address] * (ABNORMAL) Reticulocyte Count (04/25/2024 10:00 AM SHAREPOINT ADMINISTRATOR) Retics, absolute 0.104(H) 0.020 - 0.087 M/cumm Comment:Testing performed by : [facility] 2, [address] [place] [address] Retics 2.2 0.4 - 2.9 % PAULA CAMPOS Comment:Testing performed by : [place] [address], [address] [place] [address] Reticulocyte Hgb 32.9 30.5 - 38.0 pg PAULA [facility] Comment:Testing performed by : [facility], [facility] 2, [address], [place] [address] Blood 04/25/2024 10:0 0 AM SHAREPOINT ADMINISTRATOR 04/25/2024 10:05 AM SHAREPOINT ADMINISTRATOR Rekha Osborne MD LAB BLOOD ORDERABLES Final Result [facility] [address] [facility]. [facility] [place] [address] * Direct antiglobulin test (04/25/2024 10:00 AM SHAREPOINT ADMINISTRATOR) HUMZA Poly Interp Negative Comment:Testing performed by : [facility], [address] [facility], [place] [address] Blood 04/25/2024 10:0 0 AM SHAREPOINT ADMINISTRATOR 04/25/2024 10:16 AM SHAREPOINT ADMINISTRATOR Rekha Osborne MD LAB BLOOD BANK TEST ORDERAB LES Final Result Performing Organization Address [facility]UST Co de Phone Number [facility] [address] [facility]. [facility] [place] [address] * Lactate dehydrogenase (LD) (04/25/2024 10:00 AM SHAREPOINT ADMINISTRATOR) Lactate dehydrogenase (LDH) 139 100 - 250 Units/L Comment:Testing performed by : [facility], [address] [facility], [place] [address] Blood 04/25/2024 10:0 0 AM SHAREPOINT ADMINISTRATOR 04/25/2024 10:16 AM SHAREPOINT ADMINISTRATOR Rekha Osborne MD LAB BLOOD ORDERABLES Edited Result - Final Performing Organization Address [facility] Co de Phone Number [facility] [address] [facility] [place] [address] * (ABNORMAL) Haptoglobin (04/25/2024 10:00 AM SHAREPOINT ADMINISTRATOR) Haptoglobin 221(H) 30 - 200 mg/dL Comment:Testing performed by : [facility], [facility], [place]., [address] Blood 04/25/2024 10:0 0 AM SHAREPOINT ADMINISTRATOR 04/25/2024 1:35 PM SHAREPOINT ADMINISTRATOR Rekha Osborne MD LAB BLOOD ORDERABLES Final Result [facility] [address] Department [place] [address] * Comprehensive metabolic panel (04/25/2024 10:00 AM SHAREPOINT ADMINISTRATOR) Sodium 139 135 - 145 mmol/L Comment:Testing performed by : [facility], [address], [place] [address] Potassium, pl 4.1 3.3 - 4.9 mmol/L CERNER [facility] Comment:Testing performed by : [facility], [address], [place] [address] Chloride 103 97 - 110 mmol/L C[facility]ER [facility] Comment:Testing performed by : [facility], [address], [place] [address] CO2 26 22 - 32 mmol/L C[facility]ER [facility] Comment:Testing performed by : [facility], [address], [place] [address] Anion gap 10 2 - 15 mmol/L C[facility] Comment:Testing performed by : [facility], [address], [place] [address] BUN 15 6 - 25 mg/dL C[facility]ER [facility] Comment:Testing performed by : [facility], [address], [place] [address] Creatinine 0.80 0.80 - 1.30 mg/dL CERNER [facility] Comment:Testing performed by : [facility], [address], [place] [address] Glucose 98 70 - 199 mg/dL CERNER [...] was last revised 2022. Testing performed by: [facility], [address], [place] [address] Calcium 9.3 8.5 - 10.3 mg/dL CERNER [facility] Comment:Testing performed by : [facility], [address], [place] [address] Bilirubin, total 0.2 0.1 - 1.2 mg/dL C[facility] Comment:Testing performed by : [facility], [address], [place] [address] Protein, pl 6.8 6.5 - 8.5 g/dL C[facility]ER [facility] Comment:Testing performed by : [facility], [address], [place] [address] Albumin 3.7 3.5 - 5.0 g/dL CERNER [facility] Comment:Testing performed by : [facility], [address], [place] [address] Alk phos 122 40 - 130 Units/L C[facility]ER [facility] Comment:Testing performed by : [facility], [address], [place] [address] ALT 29 7 - 55 Units/L C[facility]ER [facility] Comment:Testing performed by : [facility], [address], [place] [address] AST 23 10 - 50 Units/L C[facility]ER [facility] Comment:Testing performed by : [facility], [address], [place] [address] Blood 04/25/2024 10:0 0 AM SHAREPOINT ADMINISTRATOR 04/25/2024 10:16 AM SHAREPOINT ADMINISTRATOR us Rekha Osborne MD LAB BLOOD ORDERABLES Edited Result - Final Performing Organization Address City/[facility]/ZIP Co de Phone Number [facility] [address] Department [place] [address] * Hepatitis panel, acute (11/28/2020 5:33 PM CDT) Hep A IgM Nonreactive Nonreactive [facility] Comment: Interpretive Data: If Hep A IgM Ab is reported as Equivocal, a new sample should be drawn in two weeks for testing. Current interpretive data was last revised on 19. Hep B core IgM Nonreactive Nonreactive [facility] Comment: Interpretive Data If HepB Core IgM Ab is reported as Equivocal, a new sample should be drawn in two weeks for testing. Current interpretive data was last revised on 19. Hep C Ab Nonreactive Nonreactive [facility] Comment:Antibodies to HCV no t detected. Does NOT exclude the possibility of recent exposure to HCV. HepBsAg Nonreactive Nonreactive [facility] Blood 11/28/2020 5:33 PM CDT 11/28/2020 5:53 PM CDT Jazzmine Mccartney NP LAB MICROBIO LOGY - GENERAL ORDERABLES Edited Result - Final Performing Organization Address City/[facility]/ZIP Co de Phone Number PAULA MERAZ [facility] Department [place] [address] from Last 3 Months or Most Recently Relevant to Health Maintenance Insurance [place] [facility] CHOICE PLUS [facility] HMO/PPO Address: [address] [address] [place] [address] [employer] OPEN ACCESS [place] [facility] CHOICE [facility]US [facility] HMO/PPO Address: [address] [address] [place] [address] [employer] OPEN ACCESS [place] [facility] [place] [employer] [place] ACCESS [facility] CHOICE PLUS [facility] HMO/PPO Address: [address] [address] [place] [address] Advance Directives For more information, please contact: [phone] Documents on File Type Date Recorded Patient Bark Tanner Expl anation Power of Beer Merchant 10/21/2021 12:58 PM ADVANCE DIRECTIVE 10/14/2019 12:35 [...] 5:09 PM 01/02/2021 6:56 PM Care Teams Boating Safety Officer Relationship Specialty Start Date End Date Zoila Gleason MD [address] [address] PCP - General 09/29/16 Rupal Isabel MD [address] [place] [address] [address] [place] [address] Referring Physician Allergy and Immunology 01/11/19 Rekha Osborne MD [facility] [address] [facility] [address] [place] [address] Medical Oncologist/Cementer Hand Hematology 05/11/20
--- OUTSIDE RECORDS SUMMARY | 2024-06-18 17:22 | XMS_ITS | Encounter Summary ---
Author Organization [facility] Address [address] [place] [address] Phone Care Team Providers Care Private Mortgage Banker Safe Name Role Phone Zoila Gleason MD Primary Care Provider Rupal Isabel MD Unavailable [phone] Rekha Osborne MD Unavailable [phone] Mayuri Lyn RN Unavailable [phone] Michelle Colin NEONATAL NURSE PRACTITIONER Unavailable [phone] Encounter Details Date Type Department Care Team [...] on file Legal Sex Male 1:53 AM LITHOGRAPHING MACHINE OPERATOR Gender Identity Male 10/02/2023 12:44 PM [...] COVID: Suspected 04/21/2020 04/21/2020 04/21/2020 11:24 AM LITHOGRAPHING MACHINE OPERATOR Respiratory Infection (MICKEY), contact + droplet Comment:Automatically added due to negative COVID-19 result. 04/21/2020 04/21/2020 05/05/2020 3:0 6 AM LITHOGRAPHING MACHINE OPERATOR COVID: Suspected 04/21/2020 04/21/2020 04/21/2020 6:48 PM LITHOGRAPHING MACHINE OPERATOR COVID: Suspected 09/25/2020 09/25/2020 09/25/2020 10:11 AM CDT Rhino/Enterovirus 09/25/2020 09/25/2020 10/02/2020 3:05 AM CDT COVID: Recovered 11/29/2020 11/29/2020 03/29/2021 3:05 AM LITHOGRAPHING MACHINE OPERATOR COVID: Suspected 10/09/2021 10/09/2021 10/09/2021 9:37 AM CDT COVID: Suspected 03/06/2022 03/06/2022 03/06/2022 9:30 AM LITHOGRAPHING MACHINE OPERATOR RSV, droplet 03/06/2022 03/06/2022 03/13/2022 3:05 AM LITHOGRAPHING MACHINE OPERATOR COVID: Suspected 06/26/2022 06/26/2022 06/26/2022 5:59 PM CDT Coronavirus, droplet 06/26/2022 06/26/2022 023 3:06 AM CDT documented as of this encounter Care Teams Private Mortgage Banker Safe Relationship Specialty Start Date End Date Zoila Gleason MD [address] [place] [address] PCP - General 09/29/16 Rupal Isabel MD 10 [facility] [address] [place] [address] Referring Physician Allergy and Immunology 01/11/19 Rekha Osborne MD [address] [place] [address] Medical Oncologist/Fryer Operator Hematology 05/11/20 Mayuri Lyn, RN 4590 [facility] 5300 [place] [address] SHOP Outpatient Car Escort 12/04/20 01/04/21 Michelle Colin LCSW 4590 [facility] ([facility] Mailstop [phone] [place] [address] SHOP Outpatient Car Escort 10/19/21 11/16/21 documented as of this encounter
--- OUTSIDE RECORDS SUMMARY | 2024-06-18 17:22 | XMS_ITS | Encounter Summary ---
Author Organization [facility] Address [address] [place] [address] Phone Care Team Providers Care Ceramic Sprayer Name Role Phone Zoila Gleason MD Primary Care Provider [phone] Rupal Isabel MD Unavailable [phone] Rekha Osborne MD Unavailable [phone] Mayuri Lyn RN Unavailable [phone] Michelle Colin PSYCHOLOGY INSTRUCTOR Unavailable [phone] Encounter Details Date Type Department Care Team [...] on file Legal Sex Male 1:53 AM COAT FITTER Gender Identity Male 10/02/2023 12:44 PM CDT [...] COVID: Recovered 11/29/2020 11/29/2020 03/29/2021 3:05 AM COAT FITTER COVID: Suspected 10/09/2021 10/09/2021 10/09/2021 9:37 AM CDT COVID: Suspected 03/06/2022 03/06/2022 03/06/2022 9:30 AM COAT FITTER RSV, droplet 03/06/2022 03/06/2022 03/13/2022 3:05 AM COAT FITTER COVID: Suspected 06/26/2022 06/26/2022 06/26/2022 5:59 PM CDT Coronavirus, droplet 06/26/2022 06/26/2022 023 3:06 AM CDT documented as of this encounter Care Teams Ceramic Sprayer Relationship Specialty Start Date End Date Zoila Gleason MD [address] [place] [address] PCP - General 09/29/16 Rupal Isabel MD [address] [place] [address] [address] [place] [address] Referring Physician Allergy and Immunology 01/11/19 Rekha Osborne MD [address] [place] [address] Medical Oncologist/Building Serviceman Hematology 05/11/20 Mayuri Lyn, RN 4590 [facility] [address] [place], [place] [address] LAST Outpatient Geophysical Laboratory Supervisor 12/04/20 01/04/21 Michelle Colin, PSYCHOLOGY INSTRUCTOR 4590 [facility] ([facility] Mailstop [phone] [place] [address] LAST Outpatient Geophysical Laboratory Supervisor 10/19/21 11/16/21 documented as of this encounter
--- OUTSIDE RECORDS SUMMARY | 2024-06-18 17:22 | XMS_ITS | Encounter Summary ---
Author Organization [facility] Address [address] [place] [address] Phone Care Team Providers Care Undercar Specialist Name Role Phone Zoila Gleason MD Primary Care Provider Rupal Isabel MD Unavailable [phone] Rekha Osborne MD Unavailable [phone] Mayuri Lyn RN Unavailable [phone] Michelle Colin ANIMAL HUSBANDRY MANAGER Unavailable [phone] Encounter Details Date Type Department Care Team [...] file Legal Sex Male 1:53 AM HEAVY THREADER Gender Identity Male 10/02/2023 12:44 PM CDT [...] COVID: Suspected 04/21/2020 04/21/2020 04/21/2020 11:24 AM HEAVY THREADER Respiratory Infection (MICKEY), contact + droplet Comment:Automatically added due to negative COVID-19 result. 04/21/2020 04/21/2020 05/05/2020 3:0 6 AM HEAVY THREADER COVID: Suspected 04/21/2020 04/21/2020 04/21/2020 6:48 PM HEAVY THREADER COVID: Suspected 09/25/2020 09/25/2020 09/25/2020 10:11 AM CDT Rhino/Enterovirus 09/25/2020 09/25/2020 10/02/2020 3:05 AM CDT COVID: Recovered 11/29/2020 11/29/2020 03/29/2021 3:05 AM HEAVY THREADER COVID: Suspected 10/09/2021 10/09/2021 10/09/2021 9:37 AM CDT COVID: Suspected 03/06/2022 03/06/2022 03/06/2022 9:30 AM HEAVY THREADER RSV, droplet 03/06/2022 03/06/2022 03/13/2022 3:05 AM HEAVY THREADER COVID: Suspected 06/26/2022 06/26/2022 06/26/2022 5:59 PM CDT Coronavirus, droplet 06/26/2022 06/26/2022 023 3:06 AM CDT documented as of this encounter Care Teams Undercar Specialist Relationship Specialty Start Date End Date Zoila Gleason MD [address] [place] [address] PCP - General 09/29/16 Rupal Isabel MD 10 [facility] [address] [place] [address] Referring Physician Allergy and Immunology 01/11/19 Rekha Osborne MD [address] [place] [address] Medical Oncologist/Banjo Repairer Hematology 05/11/20 Mayuri Lyn, RN 4590 [facility] 5300 [place] [address] SHOP Outpatient Boiler Blower 12/04/20 01/04/21 Michelle Colin [facility] 4590 [facility] ([facility]) Mailstop [phone] [place] [address] SHOP Outpatient Boiler Blower 10/19/21 11/16/21 documented as of this encounter
--- OUTSIDE RECORDS SUMMARY | 2024-06-18 17:22 | XMS_ITS | Encounter Summary ---
Author Organization [facility] Address [address] [place] [address] Phone Care Team Providers Care Convertible Top Installer Name Role Phone Zoila Gleason MD Primary Care Provider [phone] Rupal Isabel MD Unavailable [phone] Rekha Osborne MD Unavailable Mayuri Lyn RN Unavailable [phone] Michelle ColinW Unavailable [phone] Encounter Details Date Type Department Care Team [...] than three times a week 12/10/2020 Attends Synagogue Services Not on file 12/10 Active Member [...] on file Legal Sex Male 1:53 AM ROD FINISHER Gender Identity Male 10/02/2023 12:44 PM CDT [...] COVID: Recovered 11/29/2020 11/29/2020 03/29/2021 3:05 AM ROD FINISHER COVID: Suspected 10/09/2021 10/09/2021 10/09/2021 9:37 AM CDT COVID: Suspected 03/06/2022 03/06/2022 03/06/2022 9:30 AM ROD FINISHER RSV, droplet 03/06/2022 03/06/2022 03/13/2022 3:05 AM ROD FINISHER COVID: Suspected 06/26/2022 06/26/2022 06/26/2022 5:59 PM CDT Coronavirus, droplet 06/26/2022 06/26/2022 023 3:06 AM CDT documented as of this encounter Care Teams Convertible Top Installer Relationship Specialty Start Date End Date Zoila Gleason MD [address] [place] [address] PCP - General 09/29/16 Rupal Isabel MD 10 [facility] [address] [place] [address] Referring Physician Allergy and Immunology 01/11/19 Rekha Osborne MD [address] [place] [address] Medical Oncologist/Back Hoe Operator Hematology 05/11/20 Mayuri Lyn, RN 4590 [facility] 5300 [place] [address] SHOP Outpatient Radio Repairer 12/04/20 01/04/21 Michelle Colin LCSW 4590 [facility] ([facility] Mailstop [phone] [place] [address] SHOP Outpatient Radio Repairer 10/19/21 11/16/21 documented as of this encounter
--- OUTSIDE RECORDS SUMMARY | 2024-06-18 17:22 | XMS_ITS | Encounter Summary ---
Author Organization [facility] Address [address] [place] [address] Phone Care Team Providers Care Grain Picker Name Role Phone Zoila Gleason MD Primary Care Provider [phone] Rupal Isabel MD Unavailable [phone] Rekha Osborne MD Unavailable [phone] Mayuri Lyn RN Unavailable [phone] Michelle Colin WEB PRESS OPERATOR APPRENTICE Unavailable [phone] Encounter Details Date Type Department Care Team [...] file Legal Sex Male 1:53 AM PROP WORKER Gender Identity Male 10/02/2023 12:44 PM [...] Recovered 11/29/2020 11/29/2020 03/29/2021 3:05 AM PROP WORKER COVID: Suspected 10/09/2021 10/09/2021 10/09/2021 9:37 AM CDT COVID: Suspected 03/06/2022 03/06/2022 03/06/2022 9:30 AM PROP WORKER RSV, droplet 03/06/2022 03/06/2022 03/13/2022 3:05 AM PROP WORKER COVID: Suspected 06/26/2022 06/26/2022 06/26/2022 5:59 PM CDT Coronavirus, droplet 06/26/2022 06/26/2022 023 3:06 AM CDT documented as of this encounter Care Teams Grain Picker Relationship Specialty Start Date End Date Zoila Gleason MD [address] [place] [address] PCP - General 09/29/16 Rupal Isabel MD [address] [place] [address] [address] [place] [address] Referring Physician Allergy and Immunology 01/11/19 Rekha Osborne MD [address] [place] [address] Medical Oncologist/Hot Car Charger Hematology 05/11/20 Mayuri Lyn, RN 4590 [facility] 5300 [place], [place] [address] LAST Outpatient Cut Out Worker 12/04/20 01/04/21 Michelle Colin, WEB PRESS OPERATOR APPRENTICE 4590 [facility] ([facility] Mailstop [phone] [place] [address] LAST Outpatient Cut Out Worker 10/19/21 11/16/21 documented as of this encounter
--- OUTSIDE RECORDS SUMMARY | 2024-06-18 17:22 | XMS_ITS | Encounter Summary ---
Author Organization [facility] [employer] [facility] Address [address] [place] [address] Phone Care Team Providers Care Concrete Laborer Name Role Phone Zoila Gleason MD Primary Care Provider Rupal Isabel MD Unavailable [phone] Rekha Osborne MD Unavailable [phone] Mayuri Lyn RN Unavailable [phone] Michelle Coiln MAGAZINE FEEDER Unavailable [phone] Encounter Details Date Type Department Care Team [...] on file Legal Sex Male 1:53 AM CERAMIC RESEARCH ENGINEER Gender Identity Male 10/02/2023 12:44 PM [...] COVID: Suspected 04/21/2020 04/21/2020 04/21/2020 11:24 AM CERAMIC RESEARCH ENGINEER Respiratory Infection (MICKEY), contact + droplet Comment:Automatically added due to negative COVID-19 result. 04/21/2020 04/21/2020 05/05/2020 3:0 6 AM CERAMIC RESEARCH ENGINEER COVID: Suspected 04/21/2020 04/21/2020 04/21/2020 6:48 PM CERAMIC RESEARCH ENGINEER COVID: Suspected 09/25/2020 09/25/2020 09/25/2020 10:11 AM CDT Rhino/Enterovirus 09/25/2020 09/25/2020 10/02/2020 3:05 AM CDT COVID: Recovered 11/29/2020 11/29/2020 03/29/2021 3:05 AM CERAMIC RESEARCH ENGINEER COVID: Suspected 10/09/2021 10/09/2021 10/09/2021 9:37 AM CDT COVID: Suspected 03/06/2022 03/06/2022 03/06/2022 9:30 AM CERAMIC RESEARCH ENGINEER RSV, droplet 03/06/2022 03/06/2022 03/13/2022 3:05 AM CERAMIC RESEARCH ENGINEER COVID: Suspected 06/26/2022 06/26/2022 06/26/2022 5:59 PM CDT Coronavirus, droplet 06/26/2022 06/26/2022 023 3:06 AM CDT documented as of this encounter Care Teams Concrete Laborer Relationship Specialty Start Date End Date Zoila Gleason MD [address] [place] [address] PCP - General 09/29/16 Rupal Isabel MD [address] [place] [address] [facility] 200 [place] [address] Referring Physician Allergy and Immunology 01/11/19 Rekha Osborne MD [address] [place] [address] Medical Oncologist/Specifications Checker Hematology 05/11/20 Mayuri Lyn, RN 4590 [facility] 5300 [place] [address] SHOP Outpatient Elect Equip Maint Eng 12/04/20 01/04/21 Michelle Colin LCSW 8590 [facility] ([facility] Mailstop [phone] [place] [address] SHOP Outpatient Elect Equip Maint Eng 10/19/21 11/16/21 documented as of this encounter
--- OUTSIDE RECORDS SUMMARY | 2024-06-18 17:22 | XMS_ITS | Encounter Summary ---
Author Organization [facility] [employer] [facility] Address [address] [place] [address] Phone Care Team Providers Care Stone Banker Name Role Phone Zoila Gleason MD Primary Care Provider Rupal Isabel MD Unavailable [phone] Rekha Osborne MD Unavailable [phone] Mayuri Lyn RN Unavailable [phone] Michelle ColinW Unavailable [phone] Encounter Details Date Type Department Care Team [...] on file Legal Sex Male 1:53 AM POT BUILDER Gender Identity Male 10/02/2023 12:44 PM CDT [...] COVID: Recovered 11/29/2020 11/29/2020 03/29/2021 3:05 AM POT BUILDER COVID: Suspected 10/09/2021 10/09/2021 10/09/2021 9:37 AM CDT COVID: Suspected 03/06/2022 03/06/2022 03/06/2022 9:30 AM POT BUILDER RSV, droplet 03/06/2022 03/06/2022 03/13/2022 3:05 AM POT BUILDER COVID: Suspected 06/26/2022 06/26/2022 06/26/2022 5:59 PM CDT Coronavirus, droplet 06/26/2022 06/26/2022 023 3:06 AM CDT documented as of this encounter Care Teams Stone Banker Relationship Specialty Start Date End Date Zoila Gleason MD [address] [place], [place] [address] PCP - General 09/29/16 Rupal Isabel MD 10 [facility] [address] [place] [address] Referring Physician Allergy and Immunology 01/11/19 Rekha Osborne MD [address] [place] [address] Medical Oncologist/Grader Operator Hematology 05/11/20 Mayuri Lyn, RN 4590 [facility] 5[address] [place] [address] SHOP Outpatient Heel Turner 12/04/20 01/04/21 Michelle Colin LCSW 4590 [facility] ([facility] Mailstop [phone] [place] [address] SHOP Outpatient Heel Turner 10/19/21 11/16/21 documented as of this encounter
--- OUTSIDE RECORDS SUMMARY | 2024-06-18 17:22 | XMS_ITS | Encounter Summary ---
Author Organization [facility] Address [address] [place] [address] Phone Care Team Providers Care Senior Loan Officer Name Role Phone Zoila Gleason MD Primary Care Provider Rupal Isabel MD Unavailable [phone] Rekha Osborne MD Unavailable [phone] Mayuri Lyn RN Unavailable [phone] Michelle Colin CUSTOMS BROKER Unavailable [phone] Encounter Details Date Type Department Care Team [...] on file Legal Sex Male 1:53 AM TRANSPORTATION ATTENDANT Gender Identity Male 10/02/2023 12:44 PM CDT [...] COVID: Recovered 11/29/2020 11/29/2020 03/29/2021 3:05 AM TRANSPORTATION ATTENDANT COVID: Suspected 10/09/2021 10/09/2021 10/09/2021 9:37 AM CDT COVID: Suspected 03/06/2022 03/06/2022 03/06/2022 9:30 AM TRANSPORTATION ATTENDANT RSV, droplet 03/06/2022 03/06/2022 03/13/2022 3:05 AM TRANSPORTATION ATTENDANT COVID: Suspected 06/26/2022 06/26/2022 06/26/2022 5:59 PM CDT Coronavirus, droplet 06/26/2022 06/26/2022 023 3:06 AM CDT documented as of this encounter Care Teams Senior Loan Officer Relationship Specialty Start Date End Date Zoila Gleason MD [address] [place] [address] PCP - General 09/29/16 Rupal Isabel MD [address] [place] [address] [address] [place] [address] Referring Physician Allergy and Immunology 01/11/19 Rekha Osborne MD [address] [place] [address] Medical Oncologist/Scrap Stripper Hand Hematology 05/11/20 Mayuri Lyn, RN 4590 [facility] [address] [place], [place] [address] LAST Outpatient Director Of Government Sales 12/04/20 01/04/21 Michelle Colin, CUSTOMS BROKER 4590 [facility] ([facility] Mailstop [phone] [place] [address] LAST Outpatient Director Of Government Sales 10/19/21 11/16/21 documented as of this encounter
--- OUTSIDE RECORDS SUMMARY | 2024-06-18 17:22 | XMS_ITS | Encounter Summary ---
Author Organization [facility] Address [address] [place] [address] Phone Care Team Providers Care Cellulose Insulation Helper Name Role Phone Zoila Gleason MD Primary Care Provider Rupal Isaebl MD Unavailable [phone] Rekha Osborne MD Unavailable [phone] Mayuri Lyn RN Unavailable [phone] Michelle Colin CLIENT SERVICES ASSOCIATE Unavailable [phone] Encounter Details Date Type Department Care Team [...] on file Legal Sex Male 1:53 AM LINUX UNIX ENGINEER Gender Identity Male 10/02/2023 12:44 PM [...] COVID: Recovered 11/29/2020 11/29/2020 03/29/2021 3:05 AM LINUX UNIX ENGINEER COVID: Suspected 10/09/2021 10/09/2021 10/09/2021 9:37 AM CDT COVID: Suspected 03/06/2022 03/06/2022 03/06/2022 9:30 AM LINUX UNIX ENGINEER RSV, droplet 03/06/2022 03/06/2022 03/13/2022 3:05 AM LINUX UNIX ENGINEER COVID: Suspected 06/26/2022 06/26/2022 06/26/2022 5:59 PM CDT Coronavirus, droplet 06/26/2022 06/26/2022 023 3:06 AM CDT documented as of this encounter Care Teams Cellulose Insulation Helper Relationship Specialty Start Date End Date Zoila Gleason MD [address] [place] [address] PCP - General 09/29/16 Rupal Isabel MD [address] [place] [address] [address] [place] [address] Referring Physician Allergy and Immunology 01/11/19 Rekha Osborne MD [address] [place] [address] Medical Oncologist/Photo Cartographer Hematology 05/11/20 Mayuri Lyn, RN 4590 [facility] [address] [place], [place] [address] LAST Outpatient Field Marketing Team Leader 12/04/20 01/04/21 Michelle Colin, CLIENT SERVICES ASSOCIATE 4590 [facility] ([facility] Mailstop [phone] [place] [address] LAST Outpatient Field Marketing Team Leader 10/19/21 11/16/21 documented as of this encounter
--- OUTSIDE RECORDS SUMMARY | 2024-06-18 17:22 | XMS_ITS | Encounter Summary ---
Author Organization [facility] [employer] [facility] Address [address] [place] [address] Phone Care Team Providers Care Vessel Builder Name Role Phone Zoila Gleason MD Primary Care Provider Rupal Isabel MD Unavailable [phone] Rekha Osborne MD Unavailable [phone] Mayuri Lyn RN Unavailable [phone] Michelle Colin BRIDGE PAINTER HELPER Unavailable [phone] Encounter Details Date Type Department Care Team [...] on file Legal Sex Male 1:53 AM ENGINEERING PROJECT MANAGER Gender Identity Male 10/02/2023 12:44 PM [...] COVID: Suspected 04/21/2020 04/21/2020 04/21/2020 11:24 AM ENGINEERING PROJECT MANAGER Respiratory Infection (MICKEY), contact + droplet Comment:Automatically added due to negative COVID-19 result. 04/21/2020 04/21/2020 05/05/2020 3:0 6 AM ENGINEERING PROJECT MANAGER COVID: Suspected 04/21/2020 04/21/2020 04/21/2020 6:48 PM ENGINEERING PROJECT MANAGER COVID: Suspected 09/25/2020 09/25/2020 09/25/2020 10:11 AM CDT Rhino/Enterovirus 09/25/2020 09/25/2020 10/02/2020 3:05 AM CDT COVID: Recovered 11/29/2020 11/29/2020 03/29/2021 3:05 AM ENGINEERING PROJECT MANAGER COVID: Suspected 10/09/2021 10/09/2021 10/09/2021 9:37 AM CDT COVID: Suspected 03/06/2022 03/06/2022 03/06/2022 9:30 AM ENGINEERING PROJECT MANAGER RSV, droplet 03/06/2022 03/06/2022 03/13/2022 3:05 AM ENGINEERING PROJECT MANAGER COVID: Suspected 06/26/2022 06/26/2022 06/26/2022 5:59 PM CDT Coronavirus, droplet 06/26/2022 06/26/2022 023 3:06 AM CDT documented as of this encounter Care Teams Vessel Builder Relationship Specialty Start Date End Date Zoila Gleason MD [address] [place] [address] PCP - General 09/29/16 Rupal Isabel MD [address] [place] [address] [facility] 200 [place] [address] Referring Physician Allergy and Immunology 01/11/19 Rekha Osborne MD [address] [place] [address] Medical Oncologist/Scheduler Hematology 05/11/20 Mayuri Lyn, RN 4590 [facility] [address] [place] [address] SHOP Outpatient Pneumatic Tool Operator 12/04/20 01/04/21 Michelle Colin LCSW 1690 [facility] ([facility] Mailstop [phone] [place] [address] SHOP Outpatient Pneumatic Tool Operator 10/19/21 11/16/21 documented as of this encounter
--- OUTSIDE RECORDS SUMMARY | 2024-06-18 17:22 | XMS_ITS | Encounter Summary ---
Author Organization [facility] [employer] [facility] Address [address] [place] [address] Phone Care Team Providers Care Adjustment Clerk Name Role Phone Zoila Gleason MD Primary Care Provider Rupal Isabel MD Unavailable [phone] Rekha Osborne MD Unavailable [phone] Mayuri Lyn RN Unavailable [phone] Michelle Colin EDGER MACHINE HELPER Unavailable [phone] Encounter Details Date Type Department Care Team [...] on file Legal Sex Male 1:53 AM DEALERSHIP GENERAL MANAGER Gender Identity Male 10/02/2023 12:44 PM [...] COVID: Suspected 04/21/2020 04/21/2020 04/21/2020 11:24 AM DEALERSHIP GENERAL MANAGER Respiratory Infection (MICKEY), contact + droplet Comment:Automatically added due to negative COVID-19 result. 04/21/2020 04/21/2020 05/05/2020 3:0 6 AM DEALERSHIP GENERAL MANAGER COVID: Suspected 04/21/2020 04/21/2020 04/21/2020 6:48 PM DEALERSHIP GENERAL MANAGER COVID: Suspected 09/25/2020 09/25/2020 09/25/2020 10:11 AM CDT Rhino/Enterovirus 09/25/2020 09/25/2020 10/02/2020 3:05 AM CDT COVID: Recovered 11/29/2020 11/29/2020 03/29/2021 3:05 AM DEALERSHIP GENERAL MANAGER COVID: Suspected 10/09/2021 10/09/2021 10/09/2021 9:37 AM CDT COVID: Suspected 03/06/2022 03/06/2022 03/06/2022 9:30 AM DEALERSHIP GENERAL MANAGER RSV, droplet 03/06/2022 03/06/2022 03/13/2022 3:05 AM DEALERSHIP GENERAL MANAGER COVID: Suspected 06/26/2022 06/26/2022 06/26/2022 5:59 PM CDT Coronavirus, droplet 06/26/2022 06/26/2022 023 3:06 AM CDT documented as of this encounter Care Teams Adjustment Clerk Relationship Specialty Start Date End Date Zoila Gleason MD [address] [place] [address] PCP - General 09/29/16 Rupal Isabel MD [address] [place] [address] [facility] 200 [place] [address] Referring Physician Allergy and Immunology 01/11/19 Rekha Osbrone MD [address] [place] [address] Medical Oncologist/Saw Repairer Hematology 05/11/20 Mayuri Lyn, RN 4590 [facility] [address] [place] [address] SHOP Outpatient Consumer Affairs Director 12/04/20 01/04/21 Michelle Colin LCSW 0390 [facility] ([facility] Mailstop [phone] [place] [address] SHOP Outpatient Consumer Affairs Director 10/19/21 11/16/21 documented as of this encounter
--- OUTSIDE RECORDS SUMMARY | 2024-06-18 17:22 | XMS_ITS | Encounter Summary ---
Author Organization [facility] Address [address] [place] [address] Phone Care Team Providers Care Deli Worker Name Role Phone Zoila Gleason MD Primary Care Provider Rupal Isabel MD Unavailable [phone] Rekha Osborne MD Unavailable [phone] Mayuri Lyn RN Unavailable [phone] Michelle Colin EXECUTIVE ACCOUNT MANAGER Unavailable [phone] Encounter Details Date Type Department Care Team [...] on file Legal Sex Male 1:53 AM SUMMONS SERVER Gender Identity Male 10/02/2023 12:44 PM CDT [...] COVID: Recovered 11/29/2020 11/29/2020 03/29/2021 3:05 AM SUMMONS SERVER COVID: Suspected 10/09/2021 10/09/2021 10/09/2021 9:37 AM CDT COVID: Suspected 03/06/2022 03/06/2022 03/06/2022 9:30 AM SUMMONS SERVER RSV, droplet 03/06/2022 03/06/2022 03/13/2022 3:05 AM SUMMONS SERVER COVID: Suspected 06/26/2022 06/26/2022 06/26/2022 5:59 PM CDT Coronavirus, droplet 06/26/2022 06/26/2022 023 3:06 AM CDT documented as of this encounter Care Teams Deli Worker Relationship Specialty Start Date End Date Zoila Gleason MD [address] [place] [address] PCP - General 09/29/16 Rupal Isabel MD [address] [place] [address] [address] [place] [address] Referring Physician Allergy and Immunology 01/11/19 Rekha Osborne MD [address] [place] [address] Medical Oncologist/Optimization Engineer Hematology 05/11/20 Mayuri Lyn, RN 4590 [facility] 5[address] [place], [place] [address] LAST Outpatient Boilerhouse Mechanic 12/04/20 01/04/21 Michelle Colin, EXECUTIVE ACCOUNT MANAGER 4590 [facility] ([facility]) Mailstop [phone] [place] [address] LAST Outpatient Boilerhouse Mechanic 10/19/21 11/16/21 documented as of this encounter
--- OUTSIDE RECORDS SUMMARY | 2024-06-18 17:22 | XMS_ITS | Encounter Summary ---
Author Organization [facility] Address [address] [place] [address] Care Team Providers Care Import/Export Freight Forwarder Name Role Phone Zoila Gleason MD Primary Care Provider Rupal Isabel MD Unavailable Rekha Osborne MD Unavailable Mayuri Lyn RN Unavailable [phone] Michelle ColinW Unavailable [phone] Encounter Details Date Type Department Care Team (Late st Contact Info) Description 11/12/2020 Telephone [facility] [address] [place] [address] Aiyana Lovelace RN Social History [...] on file Legal Sex Male 1:53 AM PROGRAM ATTENDANT Gender Identity Male 10/02/2023 12:44 PM CDT Sexual Orientation Don't know 11/15/2020 1: 06 PM CDT documented as of this encounter Plan of Treatment Not on file documented as of this encounter Visit Diagnoses Not on filedocumented in this encounter Additional Health Concerns Infection Onset Date Last Indicated Resolved Time COVID: Recovered 11/29/2020 11/29/2020 03/29/2021 3:05 AM PROGRAM ATTENDANT COVID: Suspected 10/09/2021 10/09/2021 10/09/2021 9:37 AM CDT COVID: Suspected 03/06/2022 03/06/2022 03/06/2022 9:30 AM PROGRAM ATTENDANT RSV, droplet 03/06/2022 03/06/2022 03/13/2022 3:05 AM PROGRAM ATTENDANT COVID: Suspected 06/26/2022 06/26/2022 06/26/2022 5:59 PM CDT Coronavirus, droplet 06/26/2022 06/26/2022 023 3:06 AM CDT documented as of this encounter Care Teams Import/Export Freight Forwarder Relationship Specialty Start Date End Date Zoila Gleason MD [address] [place] [address] PCP - General 09/29/16 Rupal Isabel MD [address] [facility] [address] [place] [address] Referring Physician Allergy and Immunology 01/11/19 Rekha Osborne MD [address] [place] [address] Medical Oncologist/Drupal Programmer Hematology 05/11/20 Mayuri Lyn, RN 4590 [facility] 5[address] [place] [address] SHOP Outpatient Assigner 12/04/20 01/04/21 Michelle Colin LCSW 4590 [facility] ([facility] Mailstop [phone] [place] [address] SHOP Outpatient Assigner 10/19/21 11/16/21 documented as of this encounter
--- OUTSIDE RECORDS SUMMARY | 2024-06-18 17:22 | XMS_ITS | Encounter Summary ---
Author Organization [facility] Address [address] [place] [address] Phone Care Team Providers Care Key Cutter Name Role Phone Zoila Gleason MD Primary Care Provider Rupal Isabel MD Unavailable [phone] Rekha Osborne MD Unavailable [phone] Mayuri Lyn RN Unavailable [phone] Michelle Colin PERFORMANCE IMPROVEMENT DIRECTOR Unavailable [phone] Encounter Details Date Type Department Care Team [...] on file Legal Sex Male 1:53 AM BACK PAD INSPECTOR Gender Identity Male 10/02/2023 12:44 PM [...] COVID: Recovered 11/29/2020 11/29/2020 03/29/2021 3:05 AM BACK PAD INSPECTOR COVID: Suspected 10/09/2021 10/09/2021 10/09/2021 9:37 AM CDT COVID: Suspected 03/06/2022 03/06/2022 03/06/2022 9:30 AM BACK PAD INSPECTOR RSV, droplet 03/06/2022 03/06/2022 03/13/2022 3:05 AM BACK PAD INSPECTOR COVID: Suspected 06/26/2022 06/26/2022 06/26/2022 5:59 PM CDT Coronavirus, droplet 06/26/2022 06/26/2022 023 3:06 AM CDT documented as of this encounter Care Teams Key Cutter Relationship Specialty Start Date End Date Zoila Gleason MD [address] [place], [place] [address] PCP - General 09/29/16 Rupal Isabel MD [address] [place] [address] [address] [place] [address] Referring Physician Allergy and Immunology 01/11/19 Rekha Osborne MD [address] [place], [place] [id number] Medical Oncologist/Health Club Attendant Hematology 05/11/20 Mayuri Lyn, RN 45[address] [facility] [address] [place], [place] [id number] LAST Outpatient Junior Underwriter 12/04/20 01/04/21 Michelle Colin, PERFORMANCE IMPROVEMENT DIRECTOR 4590 [facility] ([facility]) Mailstop [phone] [place] [address] SHOP Outpatient Junior Underwriter 10/19/21 11/16/21 documented as of this encounter
--- OUTSIDE RECORDS SUMMARY | 2024-06-18 17:22 | XMS_ITS | Encounter Summary ---
Author Organization [facility] Address [address] [place] [address] Phone Care Team Providers Care Market Master Name Role Phone Zoila Gleason MD Primary Care Provider Rupal Isabel MD Unavailable [phone] Rekha Osborne MD Unavailable [phone] Mayuri Lyn RN Unavailable [phone] Michelle Colin MANUFACTURED BUILDINGS REPAIRER Unavailable [phone] Encounter Details Date Type Department Care Team [...] on file Legal Sex Male 1:53 AM OPERATORS SCHOOL MANAGER Gender Identity Male 10/02/2023 12:44 PM [...] COVID: Recovered 11/29/2020 11/29/2020 03/29/2021 3:05 AM OPERATORS SCHOOL MANAGER COVID: Suspected 10/09/2021 10/09/2021 10/09/2021 9:37 AM CDT COVID: Suspected 03/06/2022 03/06/2022 03/06/2022 9:30 AM OPERATORS SCHOOL MANAGER RSV, droplet 03/06/2022 03/06/2022 03/13/2022 3:05 AM OPERATORS SCHOOL MANAGER COVID: Suspected 06/26/2022 06/26/2022 06/26/2022 5:59 PM CDT Coronavirus, droplet 06/26/2022 06/26/2022 023 3:06 AM CDT documented as of this encounter Care Teams Market Master Relationship Specialty Start Date End Date Zoila Gleason MD [address] [place] [address] PCP - General 09/29/16 Rupal Isabel MD [address] [place] [address] [address] [place] [address] Referring Physician Allergy and Immunology 01/11/19 Rekha Osborne MD [address] [place] [address] Medical Oncologist/Sound Person Hematology 05/11/20 Mayuri Lyn, RN 4590 [facility] [address] [place], [place] [address] LAST Outpatient Instructor Bus Trolley And Taxi 12/04/20 01/04/21 Michelle Colin, MANUFACTURED BUILDINGS REPAIRER 4590 [facility] ([facility] Mailstop [phone] [place] [address] LAST Outpatient Instructor Bus Trolley And Taxi 10/19/21 11/16/21 documented as of this encounter
--- OUTSIDE RECORDS SUMMARY | 2024-06-18 17:22 | XMS_ITS | Encounter Summary ---
Author Organization [facility] Address [address] [place] [address] Phone Care Team Providers Care Machining Technician Name Role Phone Zoila Gleason MD Primary Care Provider Rupal Isabel MD Unavailable [phone] Rekha Osborne MD Unavailable [phone] Mayuri Lyn RN Unavailable [phone] Michelle Colin POTATO INSPECTOR Unavailable [phone] Encounter Details Date Type Department Care Team [...] on file Legal Sex Male 1:53 AM PAPER STACKER Gender Identity Male 10/02/2023 12:44 PM CDT [...] COVID: Suspected 04/21/2020 04/21/2020 04/21/2020 11:24 AM PAPER STACKER Respiratory Infection (MICKEY), contact + droplet Comment:Automatically added due to negative COVID-19 result. 04/21/2020 04/21/2020 05/05/2020 3:0 6 AM PAPER STACKER COVID: Suspected 04/21/2020 04/21/2020 04/21/2020 6:48 PM PAPER STACKER COVID: Suspected 09/25/2020 09/25/2020 09/25/2020 10:11 AM CDT Rhino/Enterovirus 09/25/2020 09/25/2020 10/02/2020 3:05 AM CDT COVID: Recovered 11/29/2020 11/29/2020 03/29/2021 3:05 AM PAPER STACKER COVID: Suspected 10/09/2021 10/09/2021 10/09/2021 9:37 AM CDT COVID: Suspected 03/06/2022 03/06/2022 03/06/2022 9:30 AM PAPER STACKER RSV, droplet 03/06/2022 03/06/2022 03/13/2022 3:05 AM PAPER STACKER COVID: Suspected 06/26/2022 06/26/2022 06/26/2022 5:59 PM CDT Coronavirus, droplet 06/26/2022 06/26/2022 023 3:06 AM CDT documented as of this encounter Care Teams Machining Technician Relationship Specialty Start Date End Date Zoila Gleason MD [address] [place] [address] PCP - General 09/29/16 Rupal Isabel MD [address] [place] [address] [address] Referring Physician Allergy and Immunology 01/11/19 Rekha Osborne MD [address] [place] [address] Medical Oncologist/Cell Room Operator Hematology 05/11/20 Mayuri Lyn, RN 4590 [facility] 5[address] [place] [address] SHOP Outpatient Sales Broker 12/04/20 01/04/21 Michelle Colin LCSW 4590 [facility] ([facility]) Mailstop [phone] [place] [address] SHOP Outpatient Sales Broker 10/19/21 11/16/21 documented as of this encounter
--- OUTSIDE RECORDS SUMMARY | 2024-06-18 17:22 | XMS_ITS | Encounter Summary ---
Author Organization [facility] Address [address] [place] [address] Phone Care Team Providers Care Plumbing Mechanic Name Role Phone Zoila Gleason MD Primary Care Provider [phone] Rupal Isabel MD Unavailable [phone] Rekha Osborne MD Unavailable [phone] Michelle Colin [facility] Unavailable [phone] Encounter Details Date Type Department Care Team [...] than three times a week 12/10/2020 Attends [employer] Services Not on file 12/10 Active Member [...] place to sleep or slept in a chcf (including now)? No 12/10/2020 Sex and Gender Information Value Date Recorded Sex Assigned at Not on file Legal Sex Male 1:53 AM DRIVER ENGINEER Gender Identity Male 10/02/2023 12:44 PM [...] COVID: Suspected 03/06/2022 03/06/2022 03/06/2022 9:30 AM DRIVER ENGINEER RSV, droplet 03/06/2022 03/06/2022 03/13/2022 3:05 AM DRIVER ENGINEER COVID: Suspected 06/26/2022 06/26/2022 06/26/2022 5:59 PM CDT Coronavirus, droplet 06/26/2022 06/26/2022 023 3:06 AM CDT documented as of this encounter Care Teams Plumbing Mechanic Relationship Specialty Start Date End Date Zoila Gleason MD [address] [place] [address] PCP - General 09/29/16 Rupal Isabel MD 10 [facility] 200 [place] [address] Referring Physician Allergy and Immunology 01/11/19 Rekha Osborne MD [address] [place], [place] [id number] Medical Oncologist/Manager Nursing Home Hematology 05/11/20 Michelel Colin, LAUNCH COMMANDER [employer] 4590 [facility] ([facility]) Mailstop [phone] [place] [address] SHOP Outpatient Production Superintendent 10/19/21 11/16/21 documented as of this encounter
--- OUTSIDE RECORDS SUMMARY | 2024-06-18 17:22 | XMS_ITS | Encounter Summary ---
Author Organization [facility] Healthcare Address [address] [place] [address] Care Team Providers Care Oliver Filter Operator Name Role Phone Zoila Gleason MD Primary Care Provider Rupal Isabel MD Unavailable [phone] Rekha Osborne MD Unavailable Mayuri Lyn RN Unavailable [phone] Michelle Colin LCSW Unavailable Encounter Details Date Type Department Care Team (Late st Contact Info) Description 03/31/2020 Telephone [facility] [place] [address] Wendy Storm, [place] Social History [...] file Legal Sex Male 1:53 AM COMMERCIAL FISHER Gender Identity Male 10/02/2023 12:44 PM CDT Sexual Orientation Don't know 11/15/2020 1: 06 PM CDT documented as of this encounter Plan of Treatment Not on file documented as of this encounter Visit Diagnoses Not on filedocumented in this encounter Additional Health Concerns Infection Onset Date Last Indicated Resolved Time COVID: Suspected 04/21/2020 04/21/2020 04/21/2020 11:24 AM COMMERCIAL FISHER Respiratory Infection (MICKEY), contact + droplet Comment:Automatically added due to negative COVID-19 result. 04/21/2020 04/21/2020 05/05/2020 3:0 6 AM COMMERCIAL FISHER COVID: Suspected 04/21/2020 04/21/2020 04/21/2020 6:48 PM COMMERCIAL FISHER COVID: Suspected 09/25/2020 09/25/2020 09/25/2020 10:11 AM CDT Rhino/Enterovirus 09/25/2020 09/25/2020 10/02/2020 3:05 AM CDT COVID: Recovered 11/29/2020 11/29/2020 03/29/2021 3:05 AM COMMERCIAL FISHER COVID: Suspected 10/09/2021 10/09/2021 10/09/2021 9:37 AM CDT COVID: Suspected 03/06/2022 03/06/2022 03/06/2022 9:30 AM COMMERCIAL FISHER RSV, droplet 03/06/2022 03/06/2022 03/13/2022 3:05 AM COMMERCIAL FISHER COVID: Suspected 06/26/2022 06/26/2022 06/26/2022 5:59 PM CDT Coronavirus, droplet 06/26/2022 06/26/2022 023 3:06 AM CDT documented as of this encounter Care Teams Oliver Filter Operator Relationship Specialty Start Date End Date Zoila Gleason MD [address] [place] [address] PCP - General 09/29/16 Rupal Isabel MD [address] [facility] [address] [place] [address] [place] [address] Referring Physician Allergy and Immunology 01/11/19 Rekha Osborne MD [address] [place] [address] Medical Oncologist/Metal Cnc Operator Hematology 05/11/20 Mayuri Lyn, RN 4590 [facility] 5[address] [place] [address] LAST Outpatient Culinary Director 12/04/20 01/04/21 Michelle Colin LCSW 4590 [facility] ([facility]) Mailstop [phone] [place] [address] LAST Outpatient Culinary Director 10/19/21 11/16/21 documented as of this encounter
--- OUTSIDE RECORDS SUMMARY | 2024-06-18 17:22 | XMS_ITS | Encounter Summary ---
Author Organization [facility] Address [address] [place] [address] Phone Care Team Providers Care Payroll Tax Specialist Name Role Phone Zoila Gleason MD Primary Care Provider Rupal Isabel MD Unavailable [phone] Rekha Osborne MD Unavailable [phone] Mayuri Lyn RN Unavailable [phone] Michelle Colin SOFTWARE REVERSE ENGINEER Unavailable [phone] Encounter Details Date Type Department Care Team [...] on file Legal Sex Male 1:53 AM CREATIVE SPECIALIST Gender Identity Male 10/02/2023 12:44 PM [...] COVID: Recovered 11/29/2020 11/29/2020 03/29/2021 3:05 AM CREATIVE SPECIALIST COVID: Suspected 10/09/2021 10/09/2021 10/09/2021 9:37 AM CDT COVID: Suspected 03/06/2022 03/06/2022 03/06/2022 9:30 AM CREATIVE SPECIALIST RSV, droplet 03/06/2022 03/06/2022 03/13/2022 3:05 AM CREATIVE SPECIALIST COVID: Suspected 06/26/2022 06/26/2022 06/26/2022 5:59 PM CDT Coronavirus, droplet 06/26/2022 06/26/2022 023 3:06 AM CDT documented as of this encounter Care Teams Payroll Tax Specialist Relationship Specialty Start Date End Date Zoila Gleason MD [address] [place] [address] PCP - General 09/29/16 Rupal Isabel MD [address] [place] [address] [address] [place] [address] Referring Physician Allergy and Immunology 01/11/19 Rekha Osborne MD [address] [place] [address] Medical Oncologist/Cork Painter And Grader Hematology 05/11/20 Mayuri Lyn, RN 4590 [facility] [address] [place], [place] [address] LAST Outpatient Biostatistics Manager 12/04/20 01/04/21 Michelle Colin, SOFTWARE REVERSE ENGINEER 4590 [facility] ([facility]) Mailstop [phone] [place] [address] LAST Outpatient Biostatistics Manager 10/19/21 11/16/21 documented as of this encounter
--- OUTSIDE RECORDS SUMMARY | 2024-06-18 17:22 | XMS_ITS | Encounter Summary ---
Author Organization [facility] Address [address] [place] [address] Phone Care Team Providers Care Drop Clipper Name Role Phone Zoila Gleason MD Primary Care Provider Rupal Isabel MD Unavailable [phone] Rekha Osborne MD Unavailable Mayuri Lyn RN Unavailable [phone] Michelle Colin HOGSHEAD COOPER Unavailable [phone] Encounter Details Date Type Department Care Team [...] on file Legal Sex Male 1:53 AM CASE CONSULTANT Gender Identity Male 10/02/2023 12:44 PM [...] COVID: Suspected 04/21/2020 04/21/2020 04/21/2020 11:24 AM CASE CONSULTANT Respiratory Infection (MICKEY), contact + droplet Comment:Automatically added due to negative COVID-19 result. 04/21/2020 04/21/2020 05/05/2020 3:0 6 AM CASE CONSULTANT COVID: Suspected 04/21/2020 04/21/2020 04/21/2020 6:48 PM CASE CONSULTANT COVID: Suspected 09/25/2020 09/25/2020 09/25/2020 10:11 AM CDT Rhino/Enterovirus 09/25/2020 09/25/2020 10/02/2020 3:05 AM CDT COVID: Recovered 11/29/2020 11/29/2020 03/29/2021 3:05 AM CASE CONSULTANT COVID: Suspected 10/09/2021 10/09/2021 10/09/2021 9:37 AM CDT COVID: Suspected 03/06/2022 03/06/2022 03/06/2022 9:30 AM CASE CONSULTANT RSV, droplet 03/06/2022 03/06/2022 03/13/2022 3:05 AM CASE CONSULTANT COVID: Suspected 06/26/2022 06/26/2022 06/26/2022 5:59 PM CDT Coronavirus, droplet 06/26/2022 06/26/2022 023 3:06 AM CDT documented as of this encounter Care Teams Drop Clipper Relationship Specialty Start Date End Date Zoila Gleason MD [address] [place] [address] PCP - General 09/29/16 Rupal Isabel MD [address] [place] [address] [facility] [address] [place] [address] Referring Physician Allergy and Immunology 01/11/19 Rekha Osborne MD [address] [place] [address] Medical Oncologist/Supervisor Corduroy Cutting Hematology 05/11/20 Mayuri Lyn, RN 4590 [facility] [address] [place] [address] SHOP Outpatient Plant Maintenance Engineer 12/04/20 01/04/21 Michelle Colin LCSW 1190 [facility] ([facility]) Mailstop [phone] [place] [address] SHOP Outpatient Plant Maintenance Engineer 10/19/21 11/16/21 documented as of this encounter
--- OUTSIDE RECORDS SUMMARY | 2024-06-18 17:22 | XMS_ITS | Encounter Summary ---
Author Organization [facility] Address [address] [place] [address] Phone Care Team Providers Care Third Mate Name Role Phone Zoila Gleason MD Primary Care Provider Rupal Isabel MD Unavailable [phone] Rekha Osborne MD Unavailable [phone] Mayuri Lyn RN Unavailable [phone] Michelle Colin NATURALIST Unavailable [phone] Encounter Details Date Type Department Care Team [...] on file Legal Sex Male 1:53 AM GLAZIER STRUCTURAL GLASS Gender Identity Male 10/02/2023 12:44 PM CDT [...] COVID: Recovered 11/29/2020 11/29/2020 03/29/2021 3:05 AM GLAZIER STRUCTURAL GLASS COVID: Suspected 10/09/2021 10/09/2021 10/09/2021 9:37 AM CDT COVID: Suspected 03/06/2022 03/06/2022 03/06/2022 9:30 AM GLAZIER STRUCTURAL GLASS RSV, droplet 03/06/2022 03/06/2022 03/13/2022 3:05 AM GLAZIER STRUCTURAL GLASS COVID: Suspected 06/26/2022 06/26/2022 06/26/2022 5:59 PM CDT Coronavirus, droplet 06/26/2022 06/26/2022 023 3:06 AM CDT documented as of this encounter Care Teams Third Mate Relationship Specialty Start Date End Date Zoila Gleason MD [address] [place] [address] PCP - General 09/29/16 Rupal Isabel MD [address] [place] [address] [address] [place] [address] Referring Physician Allergy and Immunology 01/11/19 Rekha Osborne MD [address] [place] [address] Medical Oncologist/Real Time Operator Hematology 05/11/20 Mayuri Lyn, RN 4590 [facility] [address] [place], [place] [address] LAST Outpatient Buffing Wheel Presser 12/04/20 01/04/21 Michelle Colin, NATURALIST 4590 [facility] ([facility] Mailstop [phone] [place] [address] LAST Outpatient Buffing Wheel Presser 10/19/21 11/16/21 documented as of this encounter
--- OUTSIDE RECORDS SUMMARY | 2024-06-18 17:22 | XMS_ITS | Encounter Summary ---
Author Organization [facility] Address [address] [place] [address] Phone Care Team Providers Care Validation Leader Name Role Phone Zoila Gleason MD Primary Care Provider [phone] Rupal Isabel MD Unavailable [phone] Rekha Osborne MD Unavailable [phone] Mayuri yLn RN Unavailable [phone] Michelle ColinW Unavailable [phone] Encounter Details Date Type Department Care Team [...] place to sleep or slept in a penitentiary (including now)? No 12/10/2020 Sex and Gender Information Value Date Recorded Sex Assigned at Not on file Legal Sex Male 1:53 AM BOOKMOBILE DRIVER Gender Identity Male 10/02/2023 12:44 PM [...] COVID: Recovered 11/29/2020 11/29/2020 03/29/2021 3:05 AM BOOKMOBILE DRIVER COVID: Suspected 10/09/2021 10/09/2021 10/09/2021 9:37 AM CDT COVID: Suspected 03/06/2022 03/06/2022 03/06/2022 9:30 AM BOOKMOBILE DRIVER RSV, droplet 03/06/2022 03/06/2022 03/13/2022 3:05 AM BOOKMOBILE DRIVER COVID: Suspected 06/26/2022 06/26/2022 06/26/2022 5:59 PM CDT Coronavirus, droplet 06/26/2022 06/26/2022 023 3:06 AM CDT documented as of this encounter Care Teams Validation Leader Relationship Specialty Start Date End Date Zoila Gleason MD [address] [place] [address] PCP - General 09/29/16 Rupal Isabel MD 10 [facility] [address] [place] [address] Referring Physician Allergy and Immunology 01/11/19 Rekha Osborne MD [address] [place] [address] Medical Oncologist/Log Cut Off Sawyer Hematology 05/11/20 Mayuri Lyn, RN 4590 [facility] 5300 [place] [address] SHOP Outpatient Tafe Lecturer 12/04/20 01/04/21 Michelle Colin LCSW 4590 [facility] ([facility] Mailstop [phone] [place] [address] SHOP Outpatient Tafe Lecturer 10/19/21 11/16/21 documented as of this encounter
[2024-06-19 11:55] LABS: Hepatitis A Antibody Total REACTIVE (NON-REACTIVE)
== END 2024-06-18 15:26 | disposition home or self-care (01) ==
PROVIDERS: PCP Pediatrics; Visit Provider Internal Medicine
DX: D83.9 Common variable immunodeficiency, unspecified (principal)
CPT/HCPCS: 36415; 86708; 86765

== ENCOUNTER 2024-07-04 16:40 | Outpatient (CLI) | payer BC, MEDICAID, SELFPAY ==
--- OUTSIDE RECORDS SUMMARY | 2024-07-04 16:43 | XMS_ITS | Encounter Summary ---
Author Organization [facility] Address [address] [place] [address] Phone Care Team Providers Care Slack Cooper Name Role Phone Zoila Gleason MD Primary Care Provider Rupal Isabel MD Unavailable [phone] Rekha Osborne MD Unavailable [phone] Mayuri Lyn RN Unavailable [phone] Michelle ColinW Unavailable [phone] Encounter Details Date Type Department Care Team (Latest Contact Info) Description 08/17/2020 Orders Only [facility] Scanning, Provider Social [...] on file Legal Sex Male 1:53 AM MOBILE PRACTICE LEAD Gender Identity Male 10/02/2023 12:44 PM CDT [...] COVID: Recovered 11/29/2020 11/29/2020 03/29/2021 3:05 AM MOBILE PRACTICE LEAD COVID: Suspected 10/09/2021 10/09/2021 10/09/2021 9:37 AM CDT COVID: Suspected 03/06/2022 03/06/2022 03/06/2022 9:30 AM MOBILE PRACTICE LEAD RSV, droplet 03/06/2022 03/06/2022 03/13/2022 3:05 AM MOBILE PRACTICE LEAD COVID: Suspected 06/26/2022 06/26/2022 06/26/2022 5:59 PM CDT Coronavirus, droplet 06/26/2022 06/26/2022 023 3:06 AM CDT documented as of this encounter Care Teams Slack Cooper Relationship Specialty Start Date End Date Zoila Gleason MD [address] [place] [address] PCP - General 09/29/16 Rupal Isabel MD [address] [place] [address] [address] [place] [address] Referring Physician Allergy and Immunology 01/11/19 Rekha Osborne MD [address] [place] [address] Medical Oncologist/Metal Spinner Hematology 05/11/20 Mayuri Lyn, RN 4590 [facility] [address] [place], [place] [id number] SHOP Outpatient Comber Tender 12/04/20 01/04/21 Michelle Colin, DATABASE SECURITY EXPERT 4590 [facility] ([facility] Mailstop [phone] [place] [address] SHOP Outpatient Comber Tender 10/19/21 11/16/21 documented as of this encounter
--- OUTSIDE RECORDS SUMMARY | 2024-07-04 16:43 | XMS_ITS | Encounter Summary ---
Author Organization [facility] Address [address] [place] [address] Phone Care Team Providers Care Electrical Logger Name Role Phone Zoila Gleason MD Primary Care Provider Rupal Isabel MD Unavailable [phone] Rekha Osborne MD Unavailable [phone] Mayuri Lyn RN Unavailable [phone] Michelle ColinW Unavailable [phone] Encounter Details Date Type Department Care Team [...] on file Legal Sex Male 1:53 AM SKIVER BOX TOE Gender Identity Male 10/02/2023 12:44 PM CDT [...] COVID: Suspected 04/21/2020 04/21/2020 04/21/2020 11:24 AM SKIVER BOX TOE Respiratory Infection (MICKEY), contact + droplet Comment:Automatically added due to negative COVID-19 result. 04/21/2020 04/21/2020 05/05/2020 3:0 6 AM SKIVER BOX TOE COVID: Suspected 04/21/2020 04/21/2020 04/21/2020 6:48 PM SKIVER BOX TOE COVID: Suspected 09/25/2020 09/25/2020 09/25/2020 10:11 AM CDT Rhino/Enterovirus 09/25/2020 09/25/2020 10/02/2020 3:05 AM CDT COVID: Recovered 11/29/2020 11/29/2020 03/29/2021 3:05 AM SKIVER BOX TOE COVID: Suspected 10/09/2021 10/09/2021 10/09/2021 9:37 AM CDT COVID: Suspected 03/06/2022 03/06/2022 03/06/2022 9:30 AM SKIVER BOX TOE RSV, droplet 03/06/2022 03/06/2022 03/13/2022 3:05 AM SKIVER BOX TOE COVID: Suspected 06/26/2022 06/26/2022 06/26/2022 5:59 PM CDT Coronavirus, droplet 06/26/2022 06/26/2022 023 3:06 AM CDT documented as of this encounter Care Teams Electrical Logger Relationship Specialty Start Date End Date Zoila Gleason MD [address] [place] [address] PCP - General 09/29/16 Rupal Isabel MD [address] [place] [address] Referring Physician Allergy and Immunology 01/11/19 Rekha Osborne MD [address] [place] [address] Medical Oncologist/Electrotyper Hematology 05/11/20 Mayuri Lyn, RN 4590 [facility] [address] [place] [address] SHOP Outpatient Director Of Music Therapy 12/04/20 01/04/21 Michelle Colin [facility] 4590 [facility] ([facility] Mailstop [phone] [place] [address] SHOP Outpatient Director Of Music Therapy 10/19/21 11/16/21 documented as of this encounter
--- OUTSIDE RECORDS SUMMARY | 2024-07-04 16:43 | XMS_ITS | Encounter Summary ---
Author Organization [facility] Address [address] [place] [address] Phone Care Team Providers Care Wet Roaster Name Role Phone Zoila Gleason MD Primary Care Provider [phone] Rupal Isabel MD Unavailable [phone] Rekha Osborne MD Unavailable [phone] Mayuri Lyn RN Unavailable [phone] Michelle ColinW Unavailable [phone] Encounter Details Date Type Department Care Team (Latest Contact Info) Description 09/07/2020 Orders Only [facility] Scanning, Provider Social [...] on file Legal Sex Male 1:53 AM FISHING HAND Gender Identity Male 10/02/2023 12:44 PM CDT [...] COVID: Recovered 11/29/2020 11/29/2020 03/29/2021 3:05 AM FISHING HAND COVID: Suspected 10/09/2021 10/09/2021 10/09/2021 9:37 AM CDT COVID: Suspected 03/06/2022 03/06/2022 03/06/2022 9:30 AM FISHING HAND RSV, droplet 03/06/2022 03/06/2022 03/13/2022 3:05 AM FISHING HAND COVID: Suspected 06/26/2022 06/26/2022 06/26/2022 5:59 PM CDT Coronavirus, droplet 06/26/2022 06/26/2022 023 3:06 AM CDT documented as of this encounter Care Teams Wet Roaster Relationship Specialty Start Date End Date Zoila Gleason MD [address] [place] [address] PCP - General 09/29/16 Rupal Isabel MD [address] [place] [address] [address] [place] [address] Referring Physician Allergy and Immunology 01/11/19 Rekha Osborne MD [address] [place] [address] Medical Oncologist/Cotton Picker Operator Hematology 05/11/20 Mayuri Lyn, RN [address] [facility] [address] [place], [place] [id number] SHOP Outpatient Housetrailer Servicer 12/04/20 01/04/21 Michelle Colin, PLAYGROUND MONITOR 4590 [facility] ([facility] Mailstop [phone] [place] [address] SHOP Outpatient Housetrailer Servicer 10/19/21 11/16/21 documented as of this encounter
--- OUTSIDE RECORDS SUMMARY | 2024-07-04 16:43 | XMS_ITS | Encounter Summary ---
Author Organization [facility] Address [address] [place] [address] Phone Care Team Providers Care Typesetter Apprentice Name Role Phone Zoila Gleason MD Primary Care Provider Rupal Isabel MD Unavailable [phone] Rekha Osborne MD Unavailable [phone] Mayuri Lyn RN Unavailable [phone] Michelle ColinW Unavailable [phone] Encounter Details Date Type Department Care Team (Latest Contact Info) Description 07/29/2020 Orders Only [facility] Scanning, Provider Social [...] file Legal Sex Male 1:53 AM MANAGER SPORTS Gender Identity Male 10/02/2023 12:44 PM CDT [...] Recovered 11/29/2020 11/29/2020 03/29/2021 3:05 AM MANAGER SPORTS COVID: Suspected 10/09/2021 10/09/2021 10/09/2021 9:37 AM CDT COVID: Suspected 03/06/2022 03/06/2022 03/06/2022 9:30 AM MANAGER SPORTS RSV, droplet 03/06/2022 03/06/2022 03/13/2022 3:05 AM MANAGER SPORTS COVID: Suspected 06/26/2022 06/26/2022 06/26/2022 5:59 PM CDT Coronavirus, droplet 06/26/2022 06/26/2022 023 3:06 AM CDT documented as of this encounter Care Teams Typesetter Apprentice Relationship Specialty Start Date End Date Zoila Gleason MD [address] [place] [address] PCP - General 09/29/16 Rupal Isabel MD [address] [place] [address] [address] [place] [address] Referring Physician Allergy and Immunology 01/11/19 Rekha Osborne MD [address] [place] [address] Medical Oncologist/Client Success Manager Hematology 05/11/20 Mayuri Lyn, RN 4590 [facility] [address] [place], [place] [id number] SHOP Outpatient Air Traffic Control Manager 12/04/20 01/04/21 Michelle Colin, QA TESTER 4590 [facility] ([facility] Mailstop [phone] [place] [address] SHOP Outpatient Air Traffic Control Manager 10/19/21 11/16/21 documented as of this encounter
--- OUTSIDE RECORDS SUMMARY | 2024-07-04 16:43 | XMS_ITS | Encounter Summary ---
Author Organization [facility] [employer] [facility] Address [address] [place] [address] Phone Care Team Providers Care Launch Commander [employer] Name Role Phone Zoila Gleason MD Primary Care Provider [phone] Rupal Isabel MD Unavailable [phone] Rekha Osborne MD Unavailable [phone] Michelle Colin [facility] Unavailable [phone] Encounter Details Date Type Department Care Team [...] than three times a week 12/10/2020 Attends [employer] Not on file 12/10 Active Member [...] Legal Sex Male 1:53 AM LAY OUT MACHINE OPERATOR Gender Identity Male 10/02/2023 12:44 [...] COVID: Suspected 03/06/2022 03/06/2022 03/06/2022 9:30 AM LAY OUT MACHINE OPERATOR RSV, droplet 03/06/2022 03/06/2022 03/13/2022 3:05 AM LAY OUT MACHINE OPERATOR COVID: Suspected 06/26/2022 06/26/2022 06/26/2022 5:59 PM CDT Coronavirus, droplet 06/26/2022 06/26/2022 023 3:06 AM CDT documented as of this encounter Care Teams Launch Commander [employer] Relationship Specialty Start Date End Date Zoila Gleason MD [address] [place] [address] PCP - General 09/29/16 Rupal Isabel MD 10 [facility] [address] [place] [address] Referring Physician Allergy and Immunology 01/11/19 Rekha Osborne MD [address] [place], [place] [address] Medical Oncologist/Grinding Machine Tender Hematology 05/11/20 Michelle Colin, ACCOUNT DEVELOPMENT ASSOCIATE 4590 [facility] ([facility]) Mailstop [phone] [place] [address] SHOP Outpatient Medical Detail Representative 10/19/21 11/16/21 documented as of this encounter
--- OUTSIDE RECORDS SUMMARY | 2024-07-04 16:43 | XMS_ITS | Encounter Summary ---
Author Organization [facility] Address [address] [place] [address] Phone Care Team Providers Care Plastic Production Machine Setter Name Role Phone Zoila Gleason MD Primary Care Provider Rupal Isabel MD Unavailable [phone] Rekha Osborne MD Unavailable [phone] Mayuri Lyn RN Unavailable [phone] Michelle ColinW Unavailable [phone] Encounter Details Date Type Department Care Team [...] on file Legal Sex Male 1:53 AM STATIC BALANCER Gender Identity Male 10/02/2023 12:44 PM CDT [...] COVID: Recovered 11/29/2020 11/29/2020 03/29/2021 3:05 AM STATIC BALANCER COVID: Suspected 10/09/2021 10/09/2021 10/09/2021 9:37 AM CDT COVID: Suspected 03/06/2022 03/06/2022 03/06/2022 9:30 AM STATIC BALANCER RSV, droplet 03/06/2022 03/06/2022 03/13/2022 3:05 AM STATIC BALANCER COVID: Suspected 06/26/2022 06/26/2022 06/26/2022 5:59 PM CDT Coronavirus, droplet 06/26/2022 06/26/2022 023 3:06 AM CDT documented as of this encounter Care Teams Plastic Production Machine Setter Relationship Specialty Start Date End Date Zoila Gleason MD [address] [place] [address] PCP - General 09/29/16 Rupal Isabel MD [address] [place] [address] [address] [place] [address] Referring Physician Allergy and Immunology 01/11/19 Rekha Osborne MD [address] [place] [address] Medical Oncologist/Public Administration Teacher Hematology 05/11/20 Mayuri Lyn, RN 4590 [facility] [address] [place], [place] [id number] SHOP Outpatient Channel Cementer 12/04/20 01/04/21 Michelle Colin, LEAD MECHANIC 4590 [facility] ([place]) Mailstop [phone] [place] [address] SHOP Outpatient Channel Cementer 10/19/21 11/16/21 documented as of this encounter
--- OUTSIDE RECORDS SUMMARY | 2024-07-04 16:43 | XMS_ITS | Encounter Summary ---
Author Organization [facility] [employer] [facility] Address [address] [place] [address] Phone Care Team Providers Care Pattern Hanger Name Role Phone Zoila Gleason MD Primary Care Provider Rupal Isabel MD Unavailable [phone] Rekha Osborne MD Unavailable [phone] Mayuri Lyn RN Unavailable [phone] Michelle ColinW Unavailable [phone] Encounter Details Date Type Department Care Team [...] on file Legal Sex Male 1:53 AM HOME ECONOMICS EXTENSION WORKER Gender Identity Male 10/02/2023 12:44 PM [...] COVID: Suspected 04/21/2020 04/21/2020 04/21/2020 11:24 AM HOME ECONOMICS EXTENSION WORKER Respiratory Infection (MICKEY), contact + droplet Comment:Automatically added due to negative COVID-19 result. 04/21/2020 04/21/2020 05/05/2020 3:0 6 AM HOME ECONOMICS EXTENSION WORKER COVID: Suspected 04/21/2020 04/21/2020 04/21/2020 6:48 PM HOME ECONOMICS EXTENSION WORKER COVID: Suspected 09/25/2020 09/25/2020 09/25/2020 10:11 AM CDT Rhino/Enterovirus 09/25/2020 09/25/2020 10/02/2020 3:05 AM CDT COVID: Recovered 11/29/2020 11/29/2020 03/29/2021 3:05 AM HOME ECONOMICS EXTENSION WORKER COVID: Suspected 10/09/2021 10/09/2021 10/09/2021 9:37 AM CDT COVID: Suspected 03/06/2022 03/06/2022 03/06/2022 9:30 AM HOME ECONOMICS EXTENSION WORKER RSV, droplet 03/06/2022 03/06/2022 03/13/2022 3:05 AM HOME ECONOMICS EXTENSION WORKER COVID: Suspected 06/26/2022 06/26/2022 06/26/2022 5:59 PM CDT Coronavirus, droplet 06/26/2022 06/26/2022 023 3:06 AM CDT documented as of this encounter Care Teams Pattern Hanger Relationship Specialty Start Date End Date Zoila Gleason MD [address] [place] [address] PCP - General 09/29/16 Rupal Isabel MD [address] [place] [address] [address] [place] [address] Referring Physician Allergy and Immunology 01/11/19 Rekha Osborne MD [address] [place] [address] Medical Oncologist/Cleaning Maid Hematology 05/11/20 Mayuri Lyn, RN 4590 [facility] [address] [place] [address] SHOP Outpatient Residential Roofer 12/04/20 01/04/21 Michelle Colin LCSW 4590 [facility] ([facility]) Mailstop [phone] [place] [address] SHOP Outpatient Residential Roofer 10/19/21 11/16/21 documented as of this encounter
--- OUTSIDE RECORDS SUMMARY | 2024-07-04 16:43 | XMS_ITS | Encounter Summary ---
Author Organization [facility] Address [address] [place] [address] Phone Care Team Providers Care Promotions Executive Producer Name Role Phone Zoila Gleason MD Primary Care Provider Rupal Isabel MD Unavailable [phone] Rekha Osborne MD Unavailable [phone] Mayuri Lyn RN Unavailable [phone] Michelle ColinW Unavailable [phone] Encounter Details Date Type Department Care Team [...] file Legal Sex Male 1:53 AM CLINICAL LABORATORY SERVICE TEACHER Gender Identity Male 10/02/2023 12:44 PM CDT [...] COVID: Suspected 04/21/2020 04/21/2020 04/21/2020 11:24 AM CLINICAL LABORATORY SERVICE TEACHER Respiratory Infection (MICKEY), contact + droplet Comment:Automatically added due to negative COVID-19 result. 04/21/2020 04/21/2020 05/05/2020 3:0 6 AM CLINICAL LABORATORY SERVICE TEACHER COVID: Suspected 04/21/2020 04/21/2020 04/21/2020 6:48 PM CLINICAL LABORATORY SERVICE TEACHER COVID: Suspected 09/25/2020 09/25/2020 09/25/2020 10:11 AM CDT Rhino/Enterovirus 09/25/2020 09/25/2020 10/02/2020 3:05 AM CDT COVID: Recovered 11/29/2020 11/29/2020 03/29/2021 3:05 AM CLINICAL LABORATORY SERVICE TEACHER COVID: Suspected 10/09/2021 10/09/2021 10/09/2021 9:37 AM CDT COVID: Suspected 03/06/2022 03/06/2022 03/06/2022 9:30 AM CLINICAL LABORATORY SERVICE TEACHER RSV, droplet 03/06/2022 03/06/2022 03/13/2022 3:05 AM CLINICAL LABORATORY SERVICE TEACHER COVID: Suspected 06/26/2022 06/26/2022 06/26/2022 5:59 PM CDT Coronavirus, droplet 06/26/2022 06/26/2022 023 3:06 AM CDT documented as of this encounter Care Teams Promotions Executive Producer Relationship Specialty Start Date End Date Zoila Gleason MD [address] [place] [address] PCP - General 09/29/16 Rupal Isabel MD [address] [place] [address] [address] [place] [address] Referring Physician Allergy and Immunology 01/11/19 Rekha Osborne MD [address] [place] [address] Medical Oncologist/Typing Checker Hematology 05/11/20 Mayuri Lyn, RN 4590 [facility] [address] [place] [address] SHOP Outpatient Finance Insurance Manager 12/04/20 01/04/21 Michelle Colin LCSW 4590 [facility] ([facility] Mailstop [phone] [place] [address] SHOP Outpatient Finance Insurance Manager 10/19/21 11/16/21 documented as of this encounter
--- OUTSIDE RECORDS SUMMARY | 2024-07-04 16:43 | XMS_ITS | Encounter Summary ---
Author Organization [facility] Address [address] [place] [address] Phone Care Team Providers Care Dishing Machine Operator Name Role Phone Zoila Gleason MD Primary Care Provider Rupal Isabel MD Unavailable [phone] Rekha Osborne MD Unavailable [phone] Mayuri Lyn RN Unavailable [phone] Michelle ColinW Unavailable [phone] Encounter Details Date Type Department Care Team [...] file Legal Sex Male 1:53 AM FISH TRAPPER Gender Identity Male 10/02/2023 12:44 PM CDT [...] Suspected 04/21/2020 04/21/2020 04/21/2020 11:24 AM FISH TRAPPER Respiratory Infection (MICKEY), contact + droplet Comment:Automatically added due to negative COVID-19 result. 04/21/2020 04/21/2020 05/05/2020 3:0 6 AM FISH TRAPPER COVID: Suspected 04/21/2020 04/21/2020 04/21/2020 6:48 PM FISH TRAPPER COVID: Suspected 09/25/2020 09/25/2020 09/25/2020 10:11 AM CDT Rhino/Enterovirus 09/25/2020 09/25/2020 10/02/2020 3:05 AM CDT COVID: Recovered 11/29/2020 11/29/2020 03/29/2021 3:05 AM FISH TRAPPER COVID: Suspected 10/09/2021 10/09/2021 10/09/2021 9:37 AM CDT COVID: Suspected 03/06/2022 03/06/2022 03/06/2022 9:30 AM FISH TRAPPER RSV, droplet 03/06/2022 03/06/2022 03/13/2022 3:05 AM FISH TRAPPER COVID: Suspected 06/26/2022 06/26/2022 06/26/2022 5:59 PM CDT Coronavirus, droplet 06/26/2022 06/26/2022 023 3:06 AM CDT documented as of this encounter Care Teams Dishing Machine Operator Relationship Specialty Start Date End Date Zoila Gleason MD [address] [place] [address] PCP - General 09/29/16 Rupal Isabel MD 10 [facility] [address] [place] [address] Referring Physician Allergy and Immunology 01/11/19 Rekha Osborne MD [address] [place] [address] Medical Oncologist/Supervisor Ordnance Truck Installation Hematology 05/11/20 Mayuri Lyn, RN 4590 [facility] [address] [place] [address] SHOP Outpatient Pressure Vessel Inspector 12/04/20 01/04/21 Michelle Colin LCSW 4590 [facility] ([facility] Mailstop [phone] [place] [address] SHOP Outpatient Pressure Vessel Inspector 10/19/21 11/16/21 documented as of this encounter
--- OUTSIDE RECORDS SUMMARY | 2024-07-04 16:43 | XMS_ITS | Clinical Summary ---
Author Organization [facility] ospital Address [address] [place] [address] Care Team Providers Care Glass Blower Name Role Phone Zoila Gleason MD Primary Care Provider [phone] Rupal Isabel MD Unavailable [phone] Rekha Osborne MD Unavailable [phone] Allergies Active Allergy Reactions Criticality Noted Date [...] Never used. 07/07/19 21 Active OptiChamber Anju [facility] spacer USE WITH INHALER DIRECTED 09/25/19 [...] 1 tablet (112 mcg total) by mouth composite layup worker before breakfast 03/10/20 23 Active Solu-CORTEF Act-O-Vial, [...] ATTACHED FOR DETAILED DIRECTIONS 04/02/20 24 Active Atrovent HFA 17 mcg/actuation inhaler 03/18/20 24 Active testosterone 20.25 mg/1.25 gram (1.62 %) gel in metered-dose pump Place 20.25 mg on the skin daily 225 g 05/13/19 25 025 Active avatrombopag (DOPTELET) 20 mg tabletIndications :Chronic ITP (idiopathic thrombocytopenia) (HCC) Take 1 tablet (20 mg total) by mouth daily Administer with food 90 tablet 3 05/24/19 25 Active Active Problems Problem Noted Date Diagnosed [...] stooling. -As of 12/18/23 at 1300, per [facility] [phone] - E. Coli. -Repeat blood cultures NGTD -Received cefepime; changed to cefuroxime to complete a 7 day course. Source is suspected to be UTI -TTE neg for vegetations Leukocytosis 12/17/2023 Assessment & Plan (12/17/2023 8:50 PM CDT): CBC at [facility] 12/15 WBC 20.5 (81% neutrophils). Ddx includes [...] (12/01/2020): Added automatically from request for surgery [id number] Anemia 11/28/2020 Assessment & Plan (12/03/2020 11:37 AM CDT): Hgb 4.8 ULTRASOUND SPEC and s/p 4U pRBCs total. Hgb now [...] Neutropenic fever 09/25/2020 Idiopathic thrombocytopenic purpura (ITP) ([facility]) 07/09/2020 Assessment & Plan (12/01/2020 [...] responded to steroid and rituximab last time ([id number]). During his last admission for UTI, he [...] bid - received stress dose steroids at [facility] - continue pred 5 BID - per [...] an anti-21 hydroxylase antibody to rule out Wild Horse's as well as a low dose ACTH stim test at some point after 72 hours from last stress dose. He is very well appearing and does not have an indication for stress dosing at this time. - send anti-21 hydroxylase antibody (red top 2 ml) 2107 to [facility] - consider ACTH stim test this admission [...] obtain anti-21 hydroxylase Ab to rule out Wild Horse's disease. Assessment & Plan (12/29/2019 8:18 AM [...] trochanteric areas. PAWS saw the patient on 8 and recommended f/u in 1 week if [...] patient on 11/07. 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 Separate dosing by at least 4 hours. Pediatric Endocrinology will continue to follow. 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 He had no acute events overnight, [...] Type Department Care Team Description 05/24/2024 Documentation [facility] Hematology [facility] [address] [phone] Rose Marie Zapata RMA Prior Auth (Doptelet Approved through 05/23/25) 05/24/2024 Documentation [facility] Hematology [facility]0 [facility] [address] [place] [id number] Saniya Alberts RN 05/13/2024 2:40 PM INSTRUCTOR MODELING Office Visit [facility] Endocrinology Metabolism and Lipid [address] [facility] Medicine 5th [place] [address] [place] [address] Jesenia Cottrell MD Adrenal insufficiency (Primary Dx); Arpita's syndrome (HCC); Low bone density for age; Hypogonadism in male; Vitamin D deficiency 04/25/2024 11:30 AM INSTRUCTOR MODELING Lab [facility] at [address] [place] [address] AIHA (autoimmune hemolytic anemia) (HCC); Chronic ITP (idiopathic thrombocytopenia) (HCC) 04/25/2024 9:00 AM INSTRUCTOR MODELING Office Visit [facility] Hematology [address] [facility] [address] [place] [address] Rekha Osborne MD AIHA (autoimmune hemolytic anemia) (HCC) (Primary Dx); Chronic ITP (idiopathic thrombocytopenia) (HCC); CVID (common variable immunodeficiency) (HCC); High risk medication use 04/25/2024 8:30 AM INSTRUCTOR MODELING Lab [facility] Oncology [address] [place] [address] [address] [place] [address] 04/11/2024 Orders Only [facility] Hematology [address] [facility] Floor 6 [place] [address] Saniya Alberts RN 04/09/2024 Telephone [facility] [address] 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 Never 10/11/2021 Do you belong to any clubs o r organizations such as catholic groups, unions, fraternal or athletic groups, or [...] on file Legal Sex Male 1:53 AM INSTRUCTOR MODELING Gender Identity Male 10/02/2023 12:44 PM CDT Sexual Orientation Don't know 11/15/2020 1: 06 PM CDT Obstetrics History Last Filed Vital Signs Vital Sign Reading Time Taken Comments Blood Pressure 117/79 05/13/2024 2:31 PM INSTRUCTOR MODELING Pulse 90 05/13/2024 2:31 PM INSTRUCTOR MODELING Temperature 36.9 C (98.5 F) 05/13/2024 2:31 PM INSTRUCTOR MODELING Respiratory Rate 18 03/12/2024 2:48 PM INSTRUCTOR MODELING Oxygen Saturation 96% 03/12/2024 2:48 PM INSTRUCTOR MODELING Inhaled Oxygen Concentration - - Weight 60.8 kg (134 lb) 05/13/2024 2:31 PM INSTRUCTOR MODELING Height 160 cm (5' 3 ) 05/13/2024 2:31 PM INSTRUCTOR MODELING Body Mass Index 23.74 05/13/2024 2:31 PM INSTRUCTOR MODELING Plan of Treatment Health Maintenance Due Date [...] season) 2023 02/17/2021, 01/27/2021, 06/08/2020 Influenza Vaccine (Season Ended) 2024 12/29/2022, 02/03/2022, 01/27/2021, Additional history exists Hepatitis B Screening Completed 01/12/1999 , 03/17/1998, 1997 Hepatitis C Screening Completed 11/28/2020 Procedures Procedure Name Priority Date/Time Associated Diagnosis Comments EGFR Routine 04/25/2024 10:00 AM INSTRUCTOR MODELING AIHA (autoimmune hemolytic anemia) (HCC) Chronic ITP (idiopathic thrombocytopenia) (HCC) DIFFERENTIAL AUTO Routine 04/25/2024 10: 00 AM INSTRUCTOR MODELING AIHA (autoimmune hemolytic anemia) (HCC) Chronic ITP (idiopathic thrombocytopenia) (HCC) CBC WITH AUTO DIFFERENTIAL Routine 04/25/2024 10:00 AM INSTRUCTOR MODELING AIHA (autoimmune hemolytic anemia) (HCC) Chronic ITP (idiopathic thrombocytopenia) (HCC) COMPREHENSIVE METABOLIC PANEL Routine 04/25/2024 10:00 AM INSTRUCTOR MODELING AIHA (autoimmune hemolytic anemia) (HCC) Chronic ITP (idiopathic thrombocytopenia) (HCC) RETICULOCYTES Routine 04/25/2024 10:00 AM INSTRUCTOR MODELING AIHA (autoimmune hemolytic anemia) (HCC) Chronic ITP (idiopathic thrombocytopenia) (HCC) HAPTOGLOBIN Routine 04/25/2024 10:00 AM INSTRUCTOR MODELING AIHA (autoimmune hemolytic anemia) (HCC) Chronic ITP (idiopathic thrombocytopenia) (HCC) LACTATE DEHYDROGENASE Routine 04/25/2024 10:00 AM INSTRUCTOR MODELING AIHA (autoimmune hemolytic anemia) (HCC) Chronic ITP (idiopathic thrombocytopenia) (HCC) DIRECT ANTIGLOBULIN TEST Routine 04/25/2024 10:00 AM INSTRUCTOR MODELING AIHA (autoimmune hemolytic anemia) (HCC) Chronic ITP (idiopathic thrombocytopenia) (HCC) HEPATITIS PANEL, ACUTE Routine 5:33 PM CDT from Last 3 Months or Most Recently Relevant to Health Maintenance Results * eGFR (04/25/2024 10:00 AM INSTRUCTOR MODELING) eGFR >90 >=60 mL/min/1. 73 m2 Comment: [...] reviewed 2021. Testing performed by: [facility], [address] [place] [address] Blood 04/25/2024 10:0 0 AM INSTRUCTOR MODELING 04/25/2024 10:16 AM INSTRUCTOR MODELING us Rekha Osborne MD LAB BLOOD ORDERABLES Final Result [facility] [address] Department [place] [address] * (ABNORMAL) Differential, auto (04/25/2024 10:00 AM INSTRUCTOR MODELING) Neutrophil abs 8.6(H) 1.5 - 6.5 K/cumm Comment:Testing performed by : [facility] 2, [address] [place] [address] Imm gran abs 0.5(H) 0.0 - 0.1 K/cumm [facility] Comment:Testing performed by : [facility], [facility] 2, [address] [place] [address] Lymphocyte abs 2.3 0.8 - 3.3 K/cumm [facility] Comment:Testing performed by : [facility], [facility] 2, [address] [place] [address] Monocyte abs 1.4(H) 0.2 - 0.8 K/cumm PAULA BJLEE Comment:Testing performed by : [facility] 2, [address] [place] [address] Eosinophil abs 0.1 0.0 - 0.5 K/cumm PAULA BJWLEE Comment:Testing performed by : [facility] 2, [address] [place] [address] Basophil abs 0.2(H) 0.0 - 0.1 K/cumm CERARTHUR BJWCH Comment:Testing performed by : [facility] 2, [address] [place] [address] Neutrophil pct 65.5 % CERNER BJW[facility] Comment: Interpretive Data Percent cell count reference ranges are not reported, since discordance with absolute values may lead to misinterpretation of CBC data. Current Interpretive Data was last revised on 2017. Testing performed by: [facility], [facility] 2, [address] [place] [address] Imm gran pct 4.0 % CERNER BJW[facility] Comment: Interpretive Data Percent cell count reference ranges are not reported, since discordance with absolute values may lead to misinterpretation of CBC data. Current Interpretive Data was last revised on 2017. Testing performed by: [facility], [facility] 2, [address] [place] [address] Lymphocyte pct 17.2 % CERNER [facility] Comment: Interpretive Data Percent cell count reference ranges are not reported, since discordance with absolute values may lead to misinterpretation of CBC data. Current Interpretive Data was last revised on 2017. Testing performed by: [facility], [facility] 2, [address] [place] [address] Monocyte pct 10.9 % CERNER BJW[facility] Comment: Interpretive Data Percent cell count reference ranges are not reported, since discordance with absolute values may lead to misinterpretation of CBC data. Current Interpretive Data was last revised on 2017. Testing performed by: [facility] 2, [address] [place] [address] Eosinophil pct 0.7 % CERNER BJW[facility] Comment: Interpretive Data Percent cell count reference ranges are not reported, since discordance with absolute values may lead to misinterpretation of CBC data. Current Interpretive Data was last revised on 2017. Testing performed by: [facility], [facility] 2, [address] [place] [address] Basophil pct 1.7 % CERNER [facility] Comment: Interpretive Data Percent cell count reference ranges are not reported, since discordance with absolute values may lead to misinterpretation of CBC data. Current Interpretive Data was last revised on 2017. Testing performed by: [facility] [address] [place] [address] Blood 04/25/2024 10:0 0 AM INSTRUCTOR MODELING 04/25/2024 10:05 AM INSTRUCTOR MODELING Rekha Osborne MD LAB BLOOD ORDERABLES Final Result [facility] [address] [facility] [place] [address] * (ABNORMAL) CBC with auto differential (04/25/2024 10:00 AM INSTRUCTOR MODELING) WBC 13.1(H) 3.8 - 9.9 K/cumm Comment:Testing performed by : [facility] [address] [place] [address] Hgb 15.1 13.0 - 17.5 g/dL PAULA CAMPOS Comment:Testing performed by : [facility] [address] [place] [address] Hct 45.6 38.9 - 50.3 % PAULA MERAZLEE Comment:Testing performed by : [facility] [place] [address] [place] [address] Plt 201 150 - 400 K/cumm PAULA CAMPOS Comment:Testing performed by : [facility] [place] [address] [place] [address] MPV 12.4(H) 9.1 - 12.3 fL PAULA CAMPOS Comment:Testing performed by : [facility] [place] [address] [place] [address] RBC 4.78 4.30 - 5.80 M/cumm PAULA CAMPOS Comment:Testing performed by : [place] [address], [address] [place] [address] MCV 95 81 - 96 fL PAULA MERAZWCH Comment:Testing performed by : [place] [address] [place] [address] MCH 31.6 27.1 - 33.3 pg PAULA MERAZW Comment:Testing performed by : [facility] 2, [address] [place] [address] MCHC 33.1 32.3 - 35.7 g/dL PAULA MERAZW Comment:Testing performed by : [facility] 2, [address] [place] [address] RDW CV 16.8(H) 11.1 - 14.9 % [facility] Comment:Testing performed by : [place] [address], [address] [place] [address] RDW SD 58.8(H) 35.7 - 48.1 fL [facility] Comment:Testing performed by : [place] [address], [place] [address] NRBC abs 0.03(H) 0.00 - 0.01 K/cumm [facility] Comment:Testing performed by : [facility] [address], [place] [address] Blood 04/25/2024 10:0 0 AM INSTRUCTOR MODELING 04/25/2024 10:05 AM INSTRUCTOR MODELING us Rekha Osborne MD LAB BLOOD ORDERABLES Final Result Performing Organization Address City/State/[facility] Co de Phone Number [facility] [address] [facility] Department [place] [address] * (ABNORMAL) Reticulocyte Count (04/25/2024 10:00 AM INSTRUCTOR MODELING) Retics, absolute 0.104(H) 0.020 - 0.087 M/cumm Comment:Testing performed by : [facility] 2, [address] [place] [address] Retics 2.2 0.4 - 2.9 % PAULA CARIAS Comment:Testing performed by : [facility] 2, [address] [place] [address] Reticulocyte Hgb 32.9 30.5 - 38.0 pg PAULA BJWCH Comment:Testing performed by : [facility], [facility] 2, [address] [place] [address] Blood 04/25/2024 10:0 0 AM INSTRUCTOR MODELING 04/25/2024 10:05 AM INSTRUCTOR MODELING Rekha Osborne MD LAB BLOOD ORDERABLES Final Result Performing Organization Address City/[facility]/ZIP Co de Phone Number [facility] [address] [place] [address] * Direct antiglobulin test (04/25/2024 10:00 AM INSTRUCTOR MODELING) Pathologist [facility] HUMZA Poly Interp Negative Comment:Testing performed by : [facility], [address] [place] [address] Blood 04/25/2024 10:0 0 AM INSTRUCTOR MODELING 04/25/2024 10:16 AM INSTRUCTOR MODELING Rekha Osborne MD LAB BLOOD BANK TEST ORDERAB LES Final Result Performing Organization Address [facility] Co de Phone Number PAULA BJW[facility] [address] [place] [address] * Lactate dehydrogenase (LD) (04/25/2024 10:00 AM INSTRUCTOR MODELING) Pathologist [facility] Lactate dehydrogenase (LDH) 139 100 - 250 Units/L Comment:Testing performed by : [facility], [address] [place] [address] Blood 04/25/2024 10:0 0 AM INSTRUCTOR MODELING 04/25/2024 10:16 AM INSTRUCTOR MODELING Rekha Osborne MD LAB BLOOD ORDERABLES Edited Result - Final Performing Organization Address City/[facility]/ZIP Co de Phone Number PAULA B[facility] [address] Department [place] [address] * (ABNORMAL) Haptoglobin (04/25/2024 10:00 AM INSTRUCTOR MODELING) Haptoglobin 221(H) 30 - 200 mg/dL Comment:Testing performed by : [facility], [facility] [facility], [place]., [address] Blood 04/25/2024 10:0 0 AM INSTRUCTOR MODELING 04/25/2024 1:35 PM INSTRUCTOR MODELING us Rekha Osborne MD LAB BLOOD ORDERABLES Final Result [facility] [address] Department [place] [address] * Comprehensive metabolic panel (04/25/2024 10:00 AM INSTRUCTOR MODELING) Pathologist [facility] Sodium 139 135 - 145 mmol/L Comment:Testing performed by : [facility], [address], [place] [address] Potassium, pl 4.1 3.3 - 4.9 mmol/L CERNER BJWCH Comment:Testing performed by : [facility], [address], [place] [address] Chloride 103 97 - 110 mmol/L CERNER BJWCH Comment:Testing performed by : [facility], [address], [place] [address] CO2 26 22 - 32 mmol/L CERNER BJWCH Comment:Testing performed by : [facility], [address], [place] [address] Anion gap 10 2 - 15 mmol/L CERNER BJWCH Comment:Testing performed by : [facility], [address], [place] [address] BUN 15 6 - 25 mg/dL CERNER BJWCH Comment:Testing performed by : [facility], [address], [place] [address] Creatinine 0.80 0.80 - 1.30 mg/dL CERNER BJW[facility] Comment:Testing performed by : [facility], [address], [place] [address] Glucose 98 70 - 199 mg/dL CERNER [...] revised 2022. Testing performed by: [facility], [address], [place] [address] Calcium 9.3 8.5 - 10.3 mg/dL CERNER BJWCH Comment:Testing performed by : [facility], [address], [place] [address] Bilirubin, total 0.2 0.1 - 1.2 mg/dL CERNER BJW[facility] Comment:Testing performed by : [facility], [address], [place] [address] Protein, pl 6.8 6.5 - 8.5 g/dL CERNER B[facility] Comment:Testing performed by : [facility], [address], [place] [address] Albumin 3.7 3.5 - 5.0 g/dL CERNER BJWCH Comment:Testing performed by : [facility], [address], [place] [address] Alk phos 122 40 - 130 Units/L CERNER BJWCH Comment:Testing performed by : [facility], [address], [place] [address] ALT 29 7 - 55 Units/L CERNER [facility] Comment:Testing performed by : [facility], [address], [place] [address] AST 23 10 - 50 Units/L CERNER BJWCH Comment:Testing performed by : [facility], [address] [facility], [place] [address] Blood 04/25/2024 10:0 0 AM INSTRUCTOR MODELING 04/25/2024 10:16 AM INSTRUCTOR MODELING us Rekha Osborne MD LAB BLOOD ORDERABLES Edited Result - Final [facility] [address] [facility]. Department [place] [address] * Hepatitis panel, acute (11/28/2020 5:33 PM CDT) Hep A IgM Nonreactive Nonreactive [facility] Comment: Interpretive Data: If Hep A IgM Ab is reported as Equivocal, a new sample should be drawn in two weeks for testing. Current interpretive data was last revised on 19. Hep B core IgM Nonreactive Nonreactive [facility] Comment: Interpretive Data If HepB Core IgM Ab is reported as Equivocal, a new sample should be drawn in two weeks for testing. Current interpretive data was last revised on 19. Hep C Ab Nonreactive Nonreactive [facility] Comment:Antibodies to HCV no t detected. Does NOT exclude the possibility of recent exposure to HCV. HepBsAg Nonreactive Nonreactive [facility] Blood 11/28/2020 5:33 PM CDT 11/28/2020 5:53 PM CDT Jazzmine Mccartney NP LAB MICROBIO LOGY - GENERAL ORDERABLES Edited Result - Final PAULA MERAZ [facility] Department [place] [address] from Last 3 Months or Most Recently Relevant to Health Maintenance Insurance [place] [facility] CHOICE PLUS [employer] OPEN ACCESS [place] P[place] [facility] CHOICE PLUS [employer] OPEN ACCESS IDPA [facility] [place] [employer] OPEN ACCESS [facility] CHOICE PLUS Advance Directives For more information, please contact: [phone] Documents on File Type Date Recorded Patient Grass Cutter Expl anation Power of Employee Relations Administrator 10/21/2021 12:58 PM ADVANCE DIRECTIVE 10/14/2019 12:35 [...] 5:09 PM 01/02/2021 6:56 PM Care Teams Glass Blower Relationship Specialty Start Date End Date Zoila Gleason MD [address] [place] [address] PCP - General 09/29/16 Rupal Isabel MD [address] [place] [address] [address] [place] [address] Referring Physician Allergy and Immunology 01/11/19 Rekha Osborne MD [address] [place], [place] [id number] Medical Oncologist/Genetic Engineer Hematology 05/11/20
--- OUTSIDE RECORDS SUMMARY | 2024-07-04 16:43 | XMS_ITS | Encounter Summary ---
Author Organization [facility] Address [address] [place] [address] Phone Care Team Providers Care Mining Engineering Technologist Name Role Phone Zoila Gleason MD Primary Care Provider [phone] Rupal Isabel MD Unavailable [phone] Rekha Osborne MD Unavailable [phone] Encounter Details Date Type Department Care Team [...] often do you attend chur ch or yarsani services? Never 10/11/2021 Do you belong to any clubs o r organizations such as alevism groups, unions, fraternal or athletic groups, or [...] [facility] No 10/11/2021 Sex and Gender Information Value Date Recorded Sex Assigned at Not on file Legal Sex Male 1:53 AM FRICTION WELDING MACHINE OPERATOR Gender Identity Male 10/02/2023 12:44 [...] documented as of this encounter Care Teams Mining Engineering Technologist Relationship Specialty Start Date End Date Zoila Gleason MD [address] [place] [address] PCP - General 09/29/16 Rupal Isabel MD [address] [facility] [address] [place] [address] Referring Physician Allergy and Immunology 01/11/19 Rekha Osborne MD [address] [place], [place] [id number] Medical Oncologist/Quality Control Lab Tech Hematology 05/11/20 documented as of this encounter
--- OUTSIDE RECORDS SUMMARY | 2024-07-04 16:43 | XMS_ITS | Encounter Summary ---
Author Organization [facility] Address [address] [place] [address] Phone Care Team Providers Care Orthopedic Specialist Name Role Phone Zoila Gleason MD Primary Care Provider Rupal Isabel MD Unavailable [phone] Rekha Osborne MD Unavailable [phone] Mayuri Lyn RN Unavailable [phone] Michelle ColinW Unavailable [phone] Encounter Details Date Type Department Care Team (Latest Contact Info) Description 11/25/2020 Orders Only [facility] Scanning, Provider Social [...] on file Legal Sex Male 1:53 AM PILOT CONTROL OPERATOR HELPER Gender Identity Male 10/02/2023 12:44 PM [...] COVID: Recovered 11/29/2020 11/29/2020 03/29/2021 3:05 AM PILOT CONTROL OPERATOR HELPER COVID: Suspected 10/09/2021 10/09/2021 10/09/2021 9:37 AM CDT COVID: Suspected 03/06/2022 03/06/2022 03/06/2022 9:30 AM PILOT CONTROL OPERATOR HELPER RSV, droplet 03/06/2022 03/06/2022 03/13/2022 3:05 AM PILOT CONTROL OPERATOR HELPER COVID: Suspected 06/26/2022 06/26/2022 06/26/2022 5:59 PM CDT Coronavirus, droplet 06/26/2022 06/26/2022 023 3:06 AM CDT documented as of this encounter Care Teams Orthopedic Specialist Relationship Specialty Start Date End Date Zoila Gleason MD [address] [place], [place] [id number] PCP - General 09/29/16 Rupal Isabel MD 10 [facility] [address] [place] [address] Referring Physician Allergy and Immunology 01/11/19 Rekha Osborne MD [address] [place] [address] Medical Oncologist/Passenger Service Agent Hematology 05/11/20 Mayuri Lyn, RN 45[address] [facility] [address] [place] [address] SHOP Outpatient Feed House Supervisor 12/04/20 01/04/21 Michelle Colin LCSW [address] [facility] ([facility]) Mailstop [phone] [place] [address] SHOP Outpatient Feed House Supervisor 10/19/21 11/16/21 documented as of this encounter
--- OUTSIDE RECORDS SUMMARY | 2024-07-04 16:43 | XMS_ITS | Encounter Summary ---
Author Organization [facility] Address [address] [place] [address] Phone Care Team Providers Care Rn Allergy Name Role Phone Zoila Gleason MD Primary Care Provider Rupal Isabel MD Unavailable [phone] Rekha Osborne MD Unavailable [phone] Mayuri Lyn RN Unavailable [phone] Michelle ColinW Unavailable [phone] Encounter Details Date Type Department Care Team [...] on file Legal Sex Male 1:53 AM BASIN OPERATOR Gender Identity Male 10/02/2023 12:44 PM [...] COVID: Recovered 11/29/2020 11/29/2020 03/29/2021 3:05 AM BASIN OPERATOR COVID: Suspected 10/09/2021 10/09/2021 10/09/2021 9:37 AM CDT COVID: Suspected 03/06/2022 03/06/2022 03/06/2022 9:30 AM BASIN OPERATOR RSV, droplet 03/06/2022 03/06/2022 03/13/2022 3:05 AM BASIN OPERATOR COVID: Suspected 06/26/2022 06/26/2022 06/26/2022 5:59 PM CDT Coronavirus, droplet 06/26/2022 06/26/2022 023 3:06 AM CDT documented as of this encounter Care Teams Rn Allergy Relationship Specialty Start Date End Date Zoila Gleason MD [address] [place] [address] PCP - General 09/29/16 Rupal Isabel MD [address] [place] [address] [address] [place] [address] Referring Physician Allergy and Immunology 01/11/19 Rekha Osborne MD [address] [place] [address] Medical Oncologist/Child Protective Services Social Worker Hematology 05/11/20 Mayuri Lyn, RN [address] [facility] [address] [place], [place] [id number] SHOP Outpatient Motor Polarizer 12/04/20 01/04/21 Michelle Colin, INSURANCE SALES PRODUCER 4590 [facility] [place] Mailstop [phone] [place] [address] SHOP Outpatient Motor Polarizer 10/19/21 11/16/21 documented as of this encounter
--- OUTSIDE RECORDS SUMMARY | 2024-07-04 16:43 | XMS_ITS | Encounter Summary ---
Author Organization [facility] Address [address] [place] [address] Phone Care Team Providers Care Dry Yard Worker Name Role Phone Zoila Gleason MD Primary Care Provider [phone] Rupal Isabel MD Unavailable [phone] Rekha Osborne MD Unavailable Mayuri Lyn RN Unavailable [phone] Michelle ColinW Unavailable [phone] Encounter Details Date Type Department Care Team [...] than three times a week 12/10/2020 Attends [facility] Services Not on file 12/10 Active [...] on file Legal 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 Gender Identity Male 10/02/2023 12:44 PM [...] COVID: Recovered 11/29/2020 11/29/2020 03/29/2021 3:05 AM MACHINE SHORTHAND TEACHER COVID: Suspected 10/09/2021 10/09/2021 10/09/2021 9:37 AM CDT COVID: Suspected 03/06/2022 03/06/2022 03/06/2022 9:30 AM MACHINE SHORTHAND TEACHER RSV, droplet 03/06/2022 03/06/2022 03/13/2022 3:05 AM MACHINE SHORTHAND TEACHER COVID: Suspected 06/26/2022 06/26/2022 06/26/2022 5:59 PM CDT Coronavirus, droplet 06/26/2022 06/26/2022 023 3:06 AM CDT documented as of this encounter Care Teams Dry Yard Worker Relationship Specialty Start Date End Date Zoila Gleason MD [address] [place] [address] PCP - General 09/29/16 Rupal Isabel MD 10 [facility] [address] [place] [address] Referring Physician Allergy and Immunology 01/11/19 Rekha Osborne MD [address] [place] [address] Medical Oncologist/Business Intelligence Consultant Hematology 05/11/20 Mayuri Lyn, RN 4590 [facility] [address] [place] [address] SHOP Outpatient Real Estate Job Titles 12/04/20 01/04/21 Michelle Colin LCSW 4590 [facility] [place] Mailstop [phone] [place] [address] SHOP Outpatient Real Estate Job Titles 10/19/21 11/16/21 documented as of this encounter
--- OUTSIDE RECORDS SUMMARY | 2024-07-04 16:43 | XMS_ITS | Encounter Summary ---
Author Organization [facility] Address [address] [place] [address] Phone Care Team Providers Care Wire Lather Name Role Phone Zoila Gleason MD Primary Care Provider Rupal Isabel MD Unavailable [phone] Rekha Osborne MD Unavailable [phone] Mayuri Lyn RN Unavailable [phone] Michelle ColinW Unavailable [phone] Encounter Details Date Type Department Care Team [...] file Legal Sex Male 1:53 AM BAG TURNER Gender Identity Male 10/02/2023 12:44 PM CDT [...] Recovered 11/29/2020 11/29/2020 03/29/2021 3:05 AM BAG TURNER COVID: Suspected 10/09/2021 10/09/2021 10/09/2021 9:37 AM CDT COVID: Suspected 03/06/2022 03/06/2022 03/06/2022 9:30 AM BAG TURNER RSV, droplet 03/06/2022 03/06/2022 03/13/2022 3:05 AM BAG TURNER COVID: Suspected 06/26/2022 06/26/2022 06/26/2022 5:59 PM CDT Coronavirus, droplet 06/26/2022 06/26/2022 023 3:06 AM CDT documented as of this encounter Care Teams Wire Lather Relationship Specialty Start Date End Date Zoila Gleason MD [address] [address] PCP - General 09/29/16 Rupal Isabel MD [address] [place] [address] [address] [place] [address] Referring Physician Allergy and Immunology 01/11/19 Rekha Osborne MD [address] [place], [place] [id number] Medical Oncologist/Senior Sql Server Database Developer Hematology 05/11/20 Mayuri Lyn, RN 4590 [facility] [address] [place], [place] [id number] LAST Outpatient Mail Reader 12/04/20 01/04/21 Michelle Colin, ROSALIE 4590 [facility] ([facility] Mailstop [phone] [place] [address] SHOP Outpatient Mail Reader 10/19/21 11/16/21 documented as of this encounter
--- OUTSIDE RECORDS SUMMARY | 2024-07-04 16:43 | XMS_ITS | Encounter Summary ---
Author Organization [facility] Address [address] [place] [address] Phone Care Team Providers Care Certified First Assistant Name Role Phone Zoila Gleason MD Primary Care Provider [phone] Rupal Isabel MD Unavailable [phone] Rekha Osborne MD Unavailable [phone] Mayuri Lyn RN Unavailable [phone] Michelle ColinW Unavailable [phone] Encounter Details Date Type Department Care Team [...] than three times a week 12/10/2020 Attends Yarsanism Services Not on file 12/10 Active Member [...] slept in a retirement (including now)? 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 Gender Identity Male 10/02/2023 12:44 PM CDT [...] COVID: Recovered 11/29/2020 11/29/2020 03/29/2021 3:05 AM CUP SETTER LOCKSTITCH COVID: Suspected 10/09/2021 10/09/2021 10/09/2021 9:37 AM CDT COVID: Suspected 03/06/2022 03/06/2022 03/06/2022 9:30 AM CUP SETTER LOCKSTITCH RSV, droplet 03/06/2022 03/06/2022 03/13/2022 3:05 AM CUP SETTER LOCKSTITCH COVID: Suspected 06/26/2022 06/26/2022 06/26/2022 5:59 PM CDT Coronavirus, droplet 06/26/2022 06/26/2022 023 3:06 AM CDT documented as of this encounter Care Teams Certified First Assistant Relationship Specialty Start Date End Date Zoila Gleason MD [address] [place] [address] PCP - General 09/29/16 Rupal Isabel MD 10 [facility] [address] [place] [address] Referring Physician Allergy and Immunology 01/11/19 Rekha Osborne MD [address] [place] [address] Medical Oncologist/Environmental Sampler Hematology 05/11/20 Mayuri Lyn, RN 4590 [facility] [address] [place] [address] SHOP Outpatient Livestock Breeder 12/04/20 01/04/21 Michelle Colin LCSW 4590 [facility] ([facility] Mailstop [phone] [place] [address] SHOP Outpatient Livestock Breeder 10/19/21 11/16/21 documented as of this encounter
--- OUTSIDE RECORDS SUMMARY | 2024-07-04 16:43 | XMS_ITS | Encounter Summary ---
Author Organization [facility] Address [address] [place] [address] Phone Care Team Providers Care Commercial Makeup Artist Name Role Phone Zoila Gleason MD Primary Care Provider Rupal Isabel MD Unavailable [phone] Rekha Osborne MD Unavailable [phone] Mayuri Lyn RN Unavailable [phone] Michelle ColinW Unavailable [phone] Encounter Details Date Type Department Care Team (Latest Contact Info) Description 04/15/2020 Orders Only [facility] Scanning, Provider Social [...] on file Legal Sex Male 1:53 AM STUDENT SERVICES VICE PRESIDENT Gender Identity Male 10/02/2023 12:44 PM CDT [...] COVID: Suspected 04/21/2020 04/21/2020 04/21/2020 11:24 AM STUDENT SERVICES VICE PRESIDENT Respiratory Infection (MICKEY), contact + droplet Comment:Automatically added due to negative COVID-19 result. 04/21/2020 04/21/2020 05/05/2020 3:0 6 AM STUDENT SERVICES VICE PRESIDENT COVID: Suspected 04/21/2020 04/21/2020 04/21/2020 6:48 PM STUDENT SERVICES VICE PRESIDENT COVID: Suspected 09/25/2020 09/25/2020 09/25/2020 10:11 AM CDT Rhino/Enterovirus 09/25/2020 09/25/2020 10/02/2020 3:05 AM CDT COVID: Recovered 11/29/2020 11/29/2020 03/29/2021 3:05 AM STUDENT SERVICES VICE PRESIDENT COVID: Suspected 10/09/2021 10/09/2021 10/09/2021 9:37 AM CDT COVID: Suspected 03/06/2022 03/06/2022 03/06/2022 9:30 AM STUDENT SERVICES VICE PRESIDENT RSV, droplet 03/06/2022 03/06/2022 03/13/2022 3:05 AM STUDENT SERVICES VICE PRESIDENT COVID: Suspected 06/26/2022 06/26/2022 06/26/2022 5:59 PM CDT Coronavirus, droplet 06/26/2022 06/26/2022 023 3:06 AM CDT documented as of this encounter Care Teams Commercial Makeup Artist Relationship Specialty Start Date End Date Zoila Gleason MD [address] [address] PCP - General 09/29/16 Rupal Isabel MD [address] [place] [address] [facility] [address] [place] [address] Referring Physician Allergy and Immunology 01/11/19 Rekha Osborne MD [address] [place] [address] Medical Oncologist/Chief Of Internal Medicine Hematology 05/11/20 Mayuri Lyn, RN 4590 [facility] [address] [place] [address] SHOP Outpatient Sheet Metal Operator 12/04/20 01/04/21 Michelle Colin LCSW 4590 [facility] ([facility] Mailstop [phone] [place] [address] SHOP Outpatient Sheet Metal Operator 10/19/21 11/16/21 documented as of this encounter
--- OUTSIDE RECORDS SUMMARY | 2024-07-04 16:43 | XMS_ITS | Referral Summary ---
Author Organization [facility] Address [address] [place] [address] Care Team Providers Care Disease Case Manager Rn Name Role Phone Zoila Gleason MD Primary Care Provider [phone] Rupal Isabel MD Unavailable Rekha Osborne MD Unavailable [phone] Encounters Date Type Department Care Team Description 05/24/[address] [facility] Hematology [address] [place] [phone] Rose Marie Zapata RMA Prior Auth (Doptelet Approved through 05/23/25) 05/24/[address] [facility] Hematology [address] [place] [address] [address] [place] [phone] Saniya Alberts RN 05/13/2024 2:40 PM SEWING PATTERN LAYOUT TECHNICIAN Office Visit [facility] Endocrinology Metabolism and Lipid [address] [facility] 5th [place] [address] [place] [address] Jesenia Cottrell MD Adrenal insufficiency (Primary Dx); Arpita's syndrome (HCC); Low bone density for age; Hypogonadism in male; Vitamin D deficiency 04/25/2024 11:30 AM SEWING PATTERN LAYOUT TECHNICIAN Lab [facility] at [address] [place] [phone] AIHA (autoimmune hemolytic anemia) (HCC); Chronic ITP (idiopathic thrombocytopenia) (HCC) 04/25/2024 8:30 AM SEWING PATTERN LAYOUT TECHNICIAN Lab [facility] Oncology [address] [place] [address] [address] [place] [phone] 04/25/2024 9:00 AM SEWING PATTERN LAYOUT TECHNICIAN Office Visit [facility] Hematology [address] [facility] Medical Office Building 2 [address] [place] [phone] Rekha Osborne MD AIHA (autoimmune hemolytic anemia) (HCC) (Primary Dx); Chronic ITP (idiopathic thrombocytopenia) (HCC); CVID (common variable immunodeficiency) (HCC); High risk medication use 04/11/[address] [facility] Hematology [address] [facility] Floor 6 [place] [phone] Saniya Alberts RN 04/09/2024 Telephone [place] [phone] [facility] 5th [place] [address] [place] [phone] Kobi Og MD from Last 3 Months Allergies Active Allergy [...] Never used. 07/07/19 21 Active Darius Rene [facility] spacer USE WITH INHALER DIRECTED 09/25/19 [...] 1 tablet (112 mcg total) by mouth tubular stock glass bulb machine former before breakfast 03/10/20 23 Active Solu-CORTEF Act-O-Vial, [...] 24 Active clonazePAM (KlonoPIN) 0.5 mg tablet 01/02/20 25 Active predniSONE (DELTASONE) 1 mg tablet PLEASE SEE ATTACHED FOR DETAILED DIRECTIONS 04/02/20 Active Atrovent HFA 17 mcg/actuation inhaler 03/18/20 24 Active testosterone 20.25 mg/1.25 gram (1.62 %) gel in metered-dose pump Place 20.25 mg on the skin daily 225 g 05/13/19 25 025 Active avatrombopag (DOPTELET) 20 mg tabletIndications :Chronic ITP (idiopathic thrombocytopenia) ([facility]) Take 1 tablet (20 mg total) by [...] stooling. -As of 12/18/23 at 1300, per [facility] [phone] - E. Coli. -Repeat blood cultures NGTD -Received cefepime; changed to cefuroxime to complete a 7 day course. Source is suspected to be UTI -TTE neg for vegetations Leukocytosis 12/17/2023 Assessment & Plan (12/17/2023 8:50 PM CDT): CBC at [facility] 12/15 WBC 20.5 (81% neutrophils). Ddx includes [...] (12/01/2020): Added automatically from request for surgery [id number] Anemia 11/28/2020 Assessment & Plan (12/03/2020 11:37 AM CDT): Hgb 4.8 [employer] and s/p 4U pRBCs total. Hgb now [...] Neutropenic fever 09/25/2020 Idiopathic thrombocytopenic purpura (ITP) ([facility]) 07/09/2020 Assessment & Plan (12/01/2020 [...] cytopenia, his initial presentation for thrombocytopenia to [facility] was in 2012 (17 yo) with petechiae [...] responded to steroid and rituximab last time ([phone]). During his last admission for UTI, he [...] bid - received stress dose steroids at [facility] - continue pred 5 BID - per [...] an anti-21 hydroxylase antibody to rule out Early's as well as a low dose ACTH stim test at some point after 72 hours from last stress dose. He is very well appearing and does not have an indication for stress dosing at this time. - send anti-21 hydroxylase antibody (red top 2 ml) 2107 to [facility] - consider ACTH stim test this admission [...] obtain anti-21 hydroxylase Ab to rule out Early's disease. Assessment & Plan (12/29/2019 8:18 AM [...] pressure injuries in the b/l trochanteric areas. PAWFrench saw the patient on 11/07 and recommended [...] patient on 11/07. CVID (common variable immunodeficiency) ([facility] ) 04/16/2018 Assessment & Plan (12/19/2023 [...] and platelets (101) are all stable from 6. IgG level drawn this AM was 1867.0, [...] AM CDT): Stable. Followed by endocrinology at [facility]. Currently on 150 mcg levothyroxine daily. - [...] Avoid concomitant administration of Levothyroxine with patient's [employer] [employer] [facility] [employer] [employer] iron. Separate dosing by at least 4 hours. Pediatric Endocrinology will continue to follow. Arpita's syndrome ([facility]) 04/16/2018 Overview (05/14/2020): Autoimmune anemia, neutropenia, [...] Influenza, Trivalent, Preser vative Free, Intramuscular 03/09/2016 Hexadite (J&J) SARS-CoV-2 Vaccination 06/08/2020 MMR 10/01/2002,01/20/1999 Meningococcal [...] often do you attend chur ch or tenriism services? Never 10/11/2021 Do you belong to any clubs o r organizations such as judaism groups, unions, fraternal or athletic groups, or [...] health care facility (including now)? No 10/11/2021 Personal Safety Answer Date Recorded Have you ever been in or are you currently in a harmful physical or emotional relationship or is someone making you feel afraid or unsafe? Patient unable to answer 12/18/2023 Sex and Gender Information Value Date Recorded Sex Assigned at Not on file Legal Sex Male 1:53 AM SEWING PATTERN LAYOUT TECHNICIAN Gender Identity Male 10/02/2023 12:44 PM CDT Sexual Orientation Don't know 11/15/2020 1: 06 PM CDT Last Filed Vital Signs Vital Sign Reading Time Taken Comments Blood Pressure 117/79 05/13/2024 2:31 PM SEWING PATTERN LAYOUT TECHNICIAN Pulse 90 05/13/2024 2:31 PM SEWING PATTERN LAYOUT TECHNICIAN Temperature 36.9 C (98.5 F) 05/13/2024 2:31 PM SEWING PATTERN LAYOUT TECHNICIAN Respiratory Rate 18 03/12/2024 2:48 PM SEWING PATTERN LAYOUT TECHNICIAN Oxygen Saturation 96% 03/12/2024 2:48 PM SEWING PATTERN LAYOUT TECHNICIAN Inhaled Oxygen Concentration - - Weight 60.8 kg (134 lb) 05/13/2024 2:31 PM SEWING PATTERN LAYOUT TECHNICIAN Height 160 cm (5' 3 ) 05/13/2024 2:31 PM SEWING PATTERN LAYOUT TECHNICIAN Body Mass Index 23.74 05/13/2024 2:31 PM SEWING PATTERN LAYOUT TECHNICIAN Plan of Treatment Not on file Procedures Procedure Name Priority Date/Time Associated Diagnosis Comments EGFR Routine 04/25/2024 10:00 AM SEWING PATTERN LAYOUT TECHNICIAN AIHA (autoimmune hemolytic anemia) (HCC) Chronic ITP (idiopathic thrombocytopenia) (HCC) DIFFERENTIAL AUTO Routine 04/25/2024 10: 00 AM SEWING PATTERN LAYOUT TECHNICIAN AIHA (autoimmune hemolytic anemia) (HCC) Chronic ITP (idiopathic thrombocytopenia) (HCC) CBC WITH AUTO DIFFERENTIAL Routine 04/25/2024 10:00 AM SEWING PATTERN LAYOUT TECHNICIAN AIHA (autoimmune hemolytic anemia) (HCC) Chronic ITP (idiopathic thrombocytopenia) (HCC) COMPREHENSIVE METABOLIC PANEL Routine 04/25/2024 10:00 AM SEWING PATTERN LAYOUT TECHNICIAN AIHA (autoimmune hemolytic anemia) (HCC) Chronic ITP (idiopathic thrombocytopenia) (HCC) RETICULOCYTES Routine 04/25/2024 10:00 AM SEWING PATTERN LAYOUT TECHNICIAN AIHA (autoimmune hemolytic anemia) (HCC) Chronic ITP (idiopathic thrombocytopenia) (HCC) HAPTOGLOBIN Routine 04/25/2024 10:00 AM SEWING PATTERN LAYOUT TECHNICIAN AIHA (autoimmune hemolytic anemia) (HCC) Chronic ITP (idiopathic thrombocytopenia) (HCC) LACTATE DEHYDROGENASE Routine 04/25/2024 10:00 AM SEWING PATTERN LAYOUT TECHNICIAN AIHA (autoimmune hemolytic anemia) (HCC) Chronic ITP (idiopathic thrombocytopenia) (HCC) DIRECT ANTIGLOBULIN TEST Routine 04/25/2024 10:00 AM SEWING PATTERN LAYOUT TECHNICIAN AIHA (autoimmune hemolytic anemia) (HCC) Chronic ITP (idiopathic thrombocytopenia) (HCC) HEPATITIS PANEL, ACUTE Routine 5:33 PM CDT from Last 3 Months or Most Recently Relevant to Health Maintenance Results * eGFR (04/25/2024 10:00 AM SEWING PATTERN LAYOUT TECHNICIAN) eGFR >90 >=60 mL/min/1. 73 m2 [...] last reviewed 2021. Testing performed by: [facility], [address] [place] [address] Blood 04/25/2024 10:0 0 AM SEWING PATTERN LAYOUT TECHNICIAN 04/25/2024 10:16 AM SEWING PATTERN LAYOUT TECHNICIAN Rekha Osborne MD LAB BLOOD ORDERABLES Final Result PAULA [facility] [address] [place] [address] * (ABNORMAL) Differential, auto (04/25/2024 10:00 AM SEWING PATTERN LAYOUT TECHNICIAN) Neutrophil abs 8.6(H) 1.5 - 6.5 K/cumm Comment:Testing performed by : [facility], [facility] [address], [address] [place] [address] Imm gran abs 0.5(H) 0.0 - 0.1 K/cumm CERNER [facility] Comment:Testing performed by : [facility], [facility] 2, [address] [place] [address] Lymphocyte abs 2.3 0.8 - 3.3 K/cumm CERNER [facility] Comment:Testing performed by : [facility], [facility] 2, [address] [place] [address] Monocyte abs 1.4(H) 0.2 - 0.8 K/cumm CERNER [facility] Comment:Testing performed by : [facility], [facility] 2, [address] [place] [address] Eosinophil abs 0.1 0.0 - 0.5 K/cumm CERNER [facility] Comment:Testing performed by : [facility], [facility] 2, [address] [place] [address] Basophil abs 0.2(H) 0.0 - 0.1 K/cumm CERNER [facility] Comment:Testing performed by : [facility], [facility] 2, [address] [place] [address] Neutrophil pct 65.5 % CERNER [facility] Comment: Interpretive Data Percent cell count reference ranges are not reported, since discordance with absolute values may lead to misinterpretation of CBC data. Current Interpretive Data was last revised on 2017. Testing performed by: [facility], [facility] 2, [address] [place] [address] Imm gran pct 4.0 % CERNER [facility] Comment: Interpretive Data Percent cell count reference ranges are not reported, since discordance with absolute values may lead to misinterpretation of CBC data. Current Interpretive Data was last revised on 2017. Testing performed by: [facility], [facility] 2, [address] [place] [address] Lymphocyte pct 17.2 % C[facility]ER [facility] Comment: Interpretive Data Percent cell count reference ranges are not reported, since discordance with absolute values may lead to misinterpretation of CBC data. Current Interpretive Data was last revised on 2017. Testing performed by: [facility], [facility] 2, [address] [place] [address] Monocyte pct 10.9 % PAULA CAMPOS Comment: Interpretive Data Percent cell count reference ranges are not reported, since discordance with absolute values may lead to misinterpretation of CBC data. Current Interpretive Data was last revised on 2017. Testing performed by: [facility] 2, [address] [place] [address] Eosinophil pct 0.7 % PAULA CAMPOS Comment: Interpretive Data Percent cell count reference ranges are not reported, since discordance with absolute values may lead to misinterpretation of CBC data. Current Interpretive Data was last revised on 2017. Testing performed by: [facility] 2, [address] [place] [address] Basophil pct 1.7 % PAULA CAMPOS Comment: Interpretive Data Percent cell count reference ranges are not reported, since discordance with absolute values may lead to misinterpretation of CBC data. Current Interpretive Data was last revised on 2017. Testing performed by: [facility], [facility] 2, [address] [place] [address] Blood 04/25/2024 10:0 0 AM SEWING PATTERN LAYOUT TECHNICIAN 04/25/2024 10:05 AM SEWING PATTERN LAYOUT TECHNICIAN us Rekha Osborne MD LAB BLOOD ORDERABLES Final Result Performing Organization Address City/State/[facility] Co sd Phone Number PAULA [facility] [address] [facility] Department [place] [address] * (ABNORMAL) CBC with auto differential (04/25/2024 10:00 AM SEWING PATTERN LAYOUT TECHNICIAN) WBC 13.1(H) 3.8 - 9.9 K/cumm Comment:Testing performed by : [facility] 2, [address] [place] [address] Hgb 15.1 13.0 - 17.5 g/dL PAULA CAMPOS Comment:Testing performed by : [facility] 2, [address] [place] [address] Hct 45.6 38.9 - 50.3 % CERNER [facility] Comment:Testing performed by : [facility], [facility] 2, [address], [place] [address] Plt 201 150 - 400 K/cumm CERNER [facility] Comment:Testing performed by : [place] [address], [address] [place] [address] MPV 12.4(H) 9.1 - 12.3 fL C[facility]ER [facility] Comment:Testing performed by : [place] [address], [place] [address] RBC 4.78 4.30 - 5.80 M/cumm CERNER [facility] Comment:Testing performed by : [place] [address], [place] [address] MCV 95 81 - 96 fL CERNER [facility] Comment:Testing performed by : [place] [address], [address], [place] [address] MCH 31.6 27.1 - 33.3 pg CERNER [facility] Comment:Testing performed by : [place] [address], [address], [place] [address] MCHC 33.1 32.3 - 35.7 g/dL CERNER [facility] Comment:Testing performed by : [place] [address], [address] [place] [address] RDW CV 16.8(H) 11.1 - 14.9 % CERNER [facility] Comment:Testing performed by : [place] [address], [address] [place] [address] RDW SD 58.8(H) 35.7 - 48.1 fL CERNER [facility] Comment:Testing performed by : [place] [address], [address], [place] [address] NRBC abs 0.03(H) 0.00 - 0.01 K/cumm CERNER [facility] Comment:Testing performed by : [facility], [facility] 2, [address] [place] [address] Blood 04/25/2024 10:0 0 AM SEWING PATTERN LAYOUT TECHNICIAN 04/25/2024 10:05 AM SEWING PATTERN LAYOUT TECHNICIAN Rekha Osborne MD LAB BLOOD ORDERABLES Final Result PA[facility]A [facility] [address] [facility] [facility] [address] [place] [address] * (ABNORMAL) Reticulocyte Count (04/25/2024 10:00 AM SEWING PATTERN LAYOUT TECHNICIAN) Retics, absolute 0.104(H) 0.020 - 0.087 M/cumm Comment:Testing performed by : [facility], [facility] 2, [address] [place] [address] Retics 2.2 0.4 - 2.9 % PAULA CAMPOS Comment:Testing performed by : [facility], [facility] 2, [address] [place] [address] Reticulocyte Hgb 32.9 30.5 - 38.0 pg PAULA CAMPOS Comment:Testing performed by : [facility], [facility] 2, [address] [place] [address] Blood 04/25/2024 10:0 0 AM SEWING PATTERN LAYOUT TECHNICIAN 04/25/2024 10:05 AM SEWING PATTERN LAYOUT TECHNICIAN Rekha Osborne MD LAB BLOOD ORDERABLES Final Result PA[facility]A [facility] [address] [facility] [address] [place] [address] * Direct antiglobulin test (04/25/2024 10:00 AM SEWING PATTERN LAYOUT TECHNICIAN) HUMZA Poly Interp Negative Comment:Testing performed by : [facility], [address] [place] [address] Blood 04/25/2024 10:0 0 AM SEWING PATTERN LAYOUT TECHNICIAN 04/25/2024 10:16 AM SEWING PATTERN LAYOUT TECHNICIAN Rekha Osborne MD LAB BLOOD BANK TEST ORDERAB LES Final Result Performing Organization Address [facility] Co de Phone Number PAULA [facility] [address] [employer]. [facility] [address] [place] [address] * Lactate dehydrogenase (LD) (04/25/2024 10:00 AM SEWING PATTERN LAYOUT TECHNICIAN) Lactate dehydrogenase (LDH) 139 100 - 250 Units/L Comment:Testing performed by : [facility], [address] [facility], [place] [address] Blood 04/25/2024 10:0 0 AM SEWING PATTERN LAYOUT TECHNICIAN 04/25/2024 10:16 AM SEWING PATTERN LAYOUT TECHNICIAN Rekha Osborne MD LAB BLOOD ORDERABLES Edited Result - Final Performing Organization Address [facility] de Phone Number PAULA [facility] [address] [employer] [facility] [address] [place] [address] * (ABNORMAL) Haptoglobin (04/25/2024 10:00 AM SEWING PATTERN LAYOUT TECHNICIAN) Haptoglobin 221(H) 30 - 200 mg/dL Comment:Testing performed by : [facility], [facility]5 [facility], [place]., [address] Blood 04/25/2024 10:0 0 AM SEWING PATTERN LAYOUT TECHNICIAN 04/25/2024 1:35 PM SEWING PATTERN LAYOUT TECHNICIAN Rekha Osborne MD LAB BLOOD ORDERABLES Final Result Performing Organization Address [facility] Co de Phone Number [facility] [address] [employer] [facility] [address] [place] [address] * Comprehensive metabolic panel (04/25/2024 10:00 AM SEWING PATTERN LAYOUT TECHNICIAN) Sodium 139 135 - 145 mmol/L Comment:Testing performed by : [facility], [address], [place] [address] Potassium, pl 4.1 3.3 - 4.9 mmol/L CERNER [facility] Comment:Testing performed by : [facility], [address], [place] [address] Chloride 103 97 - 110 mmol/L CERNER [facility] Comment:Testing performed by : [facility], [address], [place] [address] CO2 26 22 - 32 mmol/L CERNER [facility] Comment:Testing performed by : [facility], [address], [place] [address] Anion gap 10 2 - 15 mmol/L CERNER [facility] Comment:Testing performed by : [facility], [address], [place] [address] BUN 15 6 - 25 mg/dL CERNER [facility] Comment:Testing performed by : [facility], [address], [place] [address] Creatinine 0.80 0.80 - 1.30 mg/dL CERNER [facility] Comment:Testing performed by : [facility], [address], [place] [address] Glucose 98 70 - 199 mg/dL CERNER [...] last revised 2022. Testing performed by: [facility], [address], [place] [address] Calcium 9.3 8.5 - 10.3 mg/dL CERNER [facility] Comment:Testing performed by : [facility], [address], [place] [address] Bilirubin, total 0.2 0.1 - 1.2 mg/dL [facility] Comment:Testing performed by : [facility], [address], [place] [address] Protein, pl 6.8 6.5 - 8.5 g/dL CERNER [facility] Comment:Testing performed by : [facility], [address], [place] [address] Albumin 3.7 3.5 - 5.0 g/dL [facility] Comment:Testing performed by : [facility], [address], [place] [address] Alk phos 122 40 - 130 Units/L [facility] Comment:Testing performed by : [facility], [address], [place] [address] ALT 29 7 - 55 Units/L [facility] Comment:Testing performed by : [facility], [address], [place] [address] AST 23 10 - 50 Units/L [facility] Comment:Testing performed by : [facility], [address], [place] [address] Blood 04/25/2024 10:0 0 AM SEWING PATTERN LAYOUT TECHNICIAN 04/25/2024 10:16 AM SEWING PATTERN LAYOUT TECHNICIAN us Rekha Osborne MD LAB BLOOD ORDERABLES Edited Result - Final [facility] [address] [place] [address] * Hepatitis panel, acute (11/28/2020 5:33 PM CDT) Hep A IgM Nonreactive Nonreactive [facility] Comment: Interpretive Data: If Hep A IgM Ab is reported as Equivocal, a new sample should be drawn in two weeks for testing. Current interpretive data was last revised on 19. Hep B core IgM Nonreactive Nonreactive [facility] Comment: Interpretive Data If HepB Core IgM Ab is reported as Equivocal, a new sample should be drawn in two weeks for testing. Current interpretive data was last revised on 19. Hep C Ab Nonreactive Nonreactive [facility] Comment:Antibodies to HCV no t detected. Does NOT exclude the possibility of recent exposure to HCV. HepBsAg Nonreactive Nonreactive [facility] Blood 11/28/2020 5:33 PM CDT 11/28/2020 5:53 PM CDT us Jazzmine Mccartney NP LAB MICROBIO LOGY - GENERAL ORDERABLES Edited Result - Final [facility] Department [place] [address] from Last 3 Months or Most Recently Relevant to Health Maintenance Insurance CHO[place] [facility] CHOICE PLUS [employer] OPEN ACCESS [facility] [place] P[place] [facility] CHOICE PLUS [facility] Speed OPEN ACCESS [place] [employer] OPEN ACCESS [facility] CHOICE PLUS Advance Directives For more information, please contact: [phone] Documents on File Type Date Recorded Patient Partner Cco Expl anation Power of Plan Rep 10/21/2021 12:58 PM ADVANCE DIRECTIVE 10/14/2019 12:35 [...] 5:09 PM 01/02/2021 6:56 PM Care Teams Disease Case Manager Rn Relationship Specialty Start Date End Date Zoila Gleason MD [address] [place] [address] PCP - General 09/29/16 Rupal Isabel MD 10 [facility] [address] [place] [address] Referring Physician Allergy and Immunology 01/11/19 Rekha Osborne MD [address] [place] [address] Medical Oncologist/Fire Extinguisher Repairer Inspector Hematology 05/11/20
--- OUTSIDE RECORDS SUMMARY | 2024-07-04 16:43 | XMS_ITS | Encounter Summary ---
Author Organization [facility] Healthcare Address [address] [place] [address] Care Team Providers Care Carcass Splitter Name Role Phone Zoila Gleason MD Primary Care Provider Rupal Isabel MD Unavailable [phone] Rekha Osborne MD Unavailable [phone] Mayuri Lyn RN Unavailable Michelle Colin LCSW Unavailable [phone] Encounter Details Date Type Department Care Team (Late st Contact Info) Description 11/12/2020 Telephone [facility] Imaging [address] [place] [address] Aiyana Lovelace RN Social History Tobacco [...] on file Legal Sex Male 1:53 AM DISTRIBUTION ACCOUNTING CLERK Gender Identity Male 10/02/2023 12:44 PM CDT Sexual Orientation Don't know 11/15/2020 1: 06 PM CDT documented as of this encounter Plan of Treatment Not on file documented as of this encounter Visit Diagnoses Not on filedocumented in this encounter Additional Health Concerns Infection Onset Date Last Indicated Resolved Time COVID: Recovered 11/29/2020 11/29/2020 03/29/2021 3:05 AM DISTRIBUTION ACCOUNTING CLERK COVID: Suspected 10/09/2021 10/09/2021 10/09/2021 9:37 AM CDT COVID: Suspected 03/06/2022 03/06/2022 03/06/2022 9:30 AM DISTRIBUTION ACCOUNTING CLERK RSV, droplet 03/06/2022 03/06/2022 03/13/2022 3:05 AM DISTRIBUTION ACCOUNTING CLERK COVID: Suspected 06/26/2022 06/26/2022 06/26/2022 5:59 PM CDT Coronavirus, droplet 06/26/2022 06/26/2022 023 3:06 AM CDT documented as of this encounter Care Teams Carcass Splitter Relationship Specialty Start Date End Date Zoila Gleason MD [address] [place] [address] PCP - General 09/29/16 Rupal Isabel MD 10 [facility] [address] [place] [address] Referring Physician Allergy and Immunology 01/11/19 Rekha Osborne MD [address] [place] [address] Medical Oncologist/Casting Associate Hematology 05/11/20 Mayuri Lyn, RN 4590 [facility] [address] [place] [address] SHOP Outpatient Gas Operator 12/04/20 01/04/21 Michelle Colin LCSW 4590 [facility] ([facility] [place] Mailstop [phone] [place] [address] SHOP Outpatient Gas Operator 10/19/21 11/16/21 documented as of this encounter
--- OUTSIDE RECORDS SUMMARY | 2024-07-04 16:43 | XMS_ITS | Encounter Summary ---
Author Organization [facility] Address [address] [place] [address] Phone Care Team Providers Care Bead Wire Insulator Name Role Phone Zoila Gleason MD Primary Care Provider [phone] Rupal Isabel MD Unavailable [phone] Rekha Osborne MD Unavailable [phone] Mayuri Lyn RN Unavailable [phone] Michelle ColinW Unavailable [phone] Encounter Details Date Type Department Care Team [...] on file Legal Sex Male 1:53 AM CLEANER FURNITURE Gender Identity Male 10/02/2023 12:44 PM CDT [...] COVID: Recovered 11/29/2020 11/29/2020 03/29/2021 3:05 AM CLEANER FURNITURE COVID: Suspected 10/09/2021 10/09/2021 10/09/2021 9:37 AM CDT COVID: Suspected 03/06/2022 03/06/2022 03/06/2022 9:30 AM CLEANER FURNITURE RSV, droplet 03/06/2022 03/06/2022 03/13/2022 3:05 AM CLEANER FURNITURE COVID: Suspected 06/26/2022 06/26/2022 06/26/2022 5:59 PM CDT Coronavirus, droplet 06/26/2022 06/26/2022 023 3:06 AM CDT documented as of this encounter Care Teams Bead Wire Insulator Relationship Specialty Start Date End Date Zoila Gleason MD [address] [place] [address] PCP - General 09/29/16 Rupal Isabel MD [address] [place] [address] [address] [place] [address] Referring Physician Allergy and Immunology 01/11/19 Rekha Osborne MD [address] [place] [address] Medical Oncologist/Sales Account Associate Hematology 05/11/20 Mayuri Lyn, RN 4590 [facility] [address] [place], [place] [id number] SHOP Outpatient Vessel Engineer 12/04/20 01/04/21 Michelle Colin, DECAL DECORATOR 4590 [facility] ([facility]) Mailstop [phone] [place] [address] SHOP Outpatient Vessel Engineer 10/19/21 11/16/21 documented as of this encounter
--- OUTSIDE RECORDS SUMMARY | 2024-07-04 16:43 | XMS_ITS | Encounter Summary ---
Author Organization [facility] Address [address] [place] [address] Phone Care Team Providers Care Bee Farmer Name Role Phone Zoila Gleason MD Primary Care Provider [phone] Rupal Isabel MD Unavailable [phone] Rekha Osborne MD Unavailable [phone] Mayuri Lyn RN Unavailable [phone] Michelle ColinW Unavailable [phone] Encounter Details Date Type Department Care Team (Latest Contact Info) Description 07/22/2020 Orders Only [facility] Scanning, Provider Social [...] on file Legal Sex Male 1:53 AM COIN WRAPPING MACHINE OPERATOR Gender Identity Male 10/02/2023 12:44 [...] COVID: Recovered 11/29/2020 11/29/2020 03/29/2021 3:05 AM COIN WRAPPING MACHINE OPERATOR COVID: Suspected 10/09/2021 10/09/2021 10/09/2021 9:37 AM CDT COVID: Suspected 03/06/2022 03/06/2022 03/06/2022 9:30 AM COIN WRAPPING MACHINE OPERATOR RSV, droplet 03/06/2022 03/06/2022 03/13/2022 3:05 AM COIN WRAPPING MACHINE OPERATOR COVID: Suspected 06/26/2022 06/26/2022 06/26/2022 5:59 PM CDT Coronavirus, droplet 06/26/2022 06/26/2022 023 3:06 AM CDT documented as of this encounter Care Teams Bee Farmer Relationship Specialty Start Date End Date Zoila Gleason MD [address] [place] [address] PCP - General 09/29/16 Rupal Isabel MD [address] [place] [address] [address] [place] [address] Referring Physician Allergy and Immunology 01/11/19 Rekha Osborne MD [address] [place] [address] Medical Oncologist/Development Mgr Hematology 05/11/20 Mayuri Lyn, RN 4590 [facility] [address] [place], [place] [address] SHOP Outpatient Automatic Cigar Wrapper Tender 12/04/20 01/04/21 Michelle Colin, GRID INSPECTOR 4590 [facility] ([facility] [place] Mailstop [phone] [place] [address] SHOP Outpatient Automatic Cigar Wrapper Tender 10/19/21 11/16/21 documented as of this encounter
--- OUTSIDE RECORDS SUMMARY | 2024-07-04 16:43 | XMS_ITS | Encounter Summary ---
Author Organization [facility] Address [address] [place] [address] Phone Care Team Providers Care Spool Sander Name Role Phone Zoila Gleason MD Primary Care Provider [phone] Rupal Isabel MD Unavailable [phone] Rekha Osborne MD Unavailable Mayuri Lyn RN Unavailable [phone] Michelle ColinW Unavailable [phone] Encounter Details Date Type Department Care Team [...] on file Legal Sex Male 1:53 AM FELLING MACHINE OPERATOR Gender Identity Male 10/02/2023 12:44 [...] COVID: Suspected 04/21/2020 04/21/2020 04/21/2020 11:24 AM FELLING MACHINE OPERATOR Respiratory Infection (MICKEY), contact + droplet Comment:Automatically added due to negative COVID-19 result. 04/21/2020 04/21/2020 05/05/2020 3:0 6 AM FELLING MACHINE OPERATOR COVID: Suspected 04/21/2020 04/21/2020 04/21/2020 6:48 PM FELLING MACHINE OPERATOR COVID: Suspected 09/25/2020 09/25/2020 09/25/2020 10:11 AM CDT Rhino/Enterovirus 09/25/2020 09/25/2020 10/02/2020 3:05 AM CDT COVID: Recovered 11/29/2020 11/29/2020 03/29/2021 3:05 AM FELLING MACHINE OPERATOR COVID: Suspected 10/09/2021 10/09/2021 10/09/2021 9:37 AM CDT COVID: Suspected 03/06/2022 03/06/2022 03/06/2022 9:30 AM FELLING MACHINE OPERATOR RSV, droplet 03/06/2022 03/06/2022 03/13/2022 3:05 AM FELLING MACHINE OPERATOR COVID: Suspected 06/26/2022 06/26/2022 06/26/2022 5:59 PM CDT Coronavirus, droplet 06/26/2022 06/26/2022 023 3:06 AM CDT documented as of this encounter Care Teams Spool Sander Relationship Specialty Start Date End Date Zoila Gleason MD [address] [place] [address] PCP - General 09/29/16 Rupal Isabel MD [address] [place] [address] [address] [place] [address] Referring Physician Allergy and Immunology 01/11/19 Rekha Osborne MD [address] [place] [address] Medical Oncologist/Risk Control Director Hematology 05/11/20 Mayuri Lyn, RN 4590 [facility] [address] [place] [address] SHOP Outpatient Home Connect Lpn 12/04/20 01/04/21 Michelle Colin LCSW 4590 [facility] ([facility]) Mailstop [phone] [place] [address] SHOP Outpatient Home Connect Lpn 10/19/21 11/16/21 documented as of this encounter
--- OUTSIDE RECORDS SUMMARY | 2024-07-04 16:43 | XMS_ITS | Encounter Summary ---
Author Organization [facility] Address [address] [place] [address] Phone Care Team Providers Care Solar Sales Associate Name Role Phone Zoila Gleason MD Primary Care Provider [phone] Rupal Isabel MD Unavailable [phone] Rekha Osborne MD Unavailable [phone] Mayuri Lyn RN Unavailable [phone] Michelle ColinW Unavailable [phone] Encounter Details Date Type Department Care Team [...] on file Legal Sex Male 1:53 AM TECHNICIAN TELECOMMUNICATION SYSTEMS Gender Identity Male 10/02/2023 12:44 PM CDT [...] COVID: Recovered 11/29/2020 11/29/2020 03/29/2021 3:05 AM TECHNICIAN TELECOMMUNICATION SYSTEMS COVID: Suspected 10/09/2021 10/09/2021 10/09/2021 9:37 AM CDT COVID: Suspected 03/06/2022 03/06/2022 03/06/2022 9:30 AM TECHNICIAN TELECOMMUNICATION SYSTEMS RSV, droplet 03/06/2022 03/06/2022 03/13/2022 3:05 AM TECHNICIAN TELECOMMUNICATION SYSTEMS COVID: Suspected 06/26/2022 06/26/2022 06/26/2022 5:59 PM CDT Coronavirus, droplet 06/26/2022 06/26/2022 023 3:06 AM CDT documented as of this encounter Care Teams Solar Sales Associate Relationship Specialty Start Date End Date Zoila Gleason MD [address] [address] PCP - General 09/29/16 Rupal Isabel MD [address] [place] [address] [address] [place] [address] Referring Physician Allergy and Immunology 01/11/19 Rekha Osborne MD [address] [place] [address] Medical Oncologist/Fireworks Inspector Hematology 05/11/20 Mayuri Lyn, RN 4590 [facility] [address] [place], [place] [id number] SHOP Outpatient Quilt Sewer 12/04/20 01/04/21 Michelle Colin, FIREWORKS INSPECTOR 4590 [facility] ([facility] Mailstop [phone] [place] [address] SHOP Outpatient Quilt Sewer 10/19/21 11/16/21 documented as of this encounter
--- OUTSIDE RECORDS SUMMARY | 2024-07-04 16:43 | XMS_ITS | Encounter Summary ---
Author Organization [facility] Address [address] [place] [address] Phone Care Team Providers Care Printed Circuit Board Reworker Name Role Phone Zoila Gleason MD Primary Care Provider Rupal Isabel MD Unavailable [phone] Rekha Osborne MD Unavailable [phone] Mayuri Lyn RN Unavailable [phone] Michelle ColinW Unavailable [phone] Encounter Details Date Type Department Care Team [...] on file Legal Sex Male 1:53 AM DIRECTOR OF FIELD SALES Gender Identity Male 10/02/2023 12:44 PM CDT [...] COVID: Suspected 04/21/2020 04/21/2020 04/21/2020 11:24 AM DIRECTOR OF FIELD SALES Respiratory Infection (MICKEY), contact + droplet Comment:Automatically added due to negative COVID-19 result. 04/21/2020 04/21/2020 05/05/2020 3:0 6 AM DIRECTOR OF FIELD SALES COVID: Suspected 04/21/2020 04/21/2020 04/21/2020 6:48 PM DIRECTOR OF FIELD SALES COVID: Suspected 09/25/2020 09/25/2020 09/25/2020 10:11 AM CDT Rhino/Enterovirus 09/25/2020 09/25/2020 10/02/2020 3:05 AM CDT COVID: Recovered 11/29/2020 11/29/2020 03/29/2021 3:05 AM DIRECTOR OF FIELD SALES COVID: Suspected 10/09/2021 10/09/2021 10/09/2021 9:37 AM CDT COVID: Suspected 03/06/2022 03/06/2022 03/06/2022 9:30 AM DIRECTOR OF FIELD SALES RSV, droplet 03/06/2022 03/06/2022 03/13/2022 3:05 AM DIRECTOR OF FIELD SALES COVID: Suspected 06/26/2022 06/26/2022 06/26/2022 5:59 PM CDT Coronavirus, droplet 06/26/2022 06/26/2022 023 3:06 AM CDT documented as of this encounter Care Teams Printed Circuit Board Reworker Relationship Specialty Start Date End Date Zoila Gleason MD [address] [place] [address] PCP - General 09/29/16 Rupal Isabel MD [address] [place] [address] [address] [place] [address] Referring Physician Allergy and Immunology 01/11/19 Rekha Osborne MD [address] [place] [address] Medical Oncologist/Traffic Routing Engineer Hematology 05/11/20 Mayuri Lyn, RN 4590 [facility] [address] [place] [address] SHOP Outpatient Medical Education Manager 12/04/20 01/04/21 Michelle Colin LCSW 4590 [facility] ([facility] Mailstop [phone] [place] [address] SHOP Outpatient Medical Education Manager 10/19/21 11/16/21 documented as of this encounter
--- OUTSIDE RECORDS SUMMARY | 2024-07-04 16:43 | XMS_ITS | Clinical Summary ---
Author Organization [employer] [facility] Address [address] [place] [address] Care Team Providers Care Corrections Caseworker Name Role Phone Unavailable Primary Care Provider [...] WEEKS. 24 Packet 1 03/02/2023 2:48 PM ASSEMBLER EQUIPMENT 3 Active clindamycin phosphate (CLEOCIN T) 1 [...] procedure 4 Capsule 1 03/02/2023 2:45 PM ASSEMBLER EQUIPMENT 3 Active docusate sodium (COLACE) 100 mg capsule Take one capsule (100 mg) orally twice a day 60 Capsule 3 03/14/2023 12:03 PM ASSEMBLER EQUIPMENT 3 Active levothyroxine 112 mcg tablet Take one tablet (112 mcg) orally every morning 90 Tablet 2 03/14/2023 12:03 PM ASSEMBLER EQUIPMENT 3 Active pantoprazole (PROTONIX) 40 mg Tablet, Delayed Release (E.C.) Take one tablet (40 mg) orally daily 60 Tablet 03/14/2023 12:03 PM ASSEMBLER EQUIPMENT 3 Active sertraline (ZOLOFT) 100 mg tablet Take one tablet (50 mg) orally daily 90 Tablet 3 3 Active hydrocortisone sod succ, PF, (Solu-CORTEF Act-O-Vial, PF,) 100 mg/2 mL Recon Soln Inject 2 mL (100 mg) by intramuscular injection 1 time daily as needed for adrenal crisis. 10 Each 2 04/17/2023 6:40 PM ASSEMBLER EQUIPMENT 4 Active apixaban (Eliquis) 5 mg tablet Take 1 Tablet (5 mg) by mouth 2 times daily. 30 Tablet 1 04/08/2023 4:00 PM ASSEMBLER EQUIPMENT 4 Active nirmatrelvir-r itonavir (Paxlovid) 300(150mg x 2)-100 mg oral pack TAKE 2 TABLETS OF NIRMATRELVIR AND 1 TABLET OF RITONAVIR BY MOUTH TWICE DAILY FOR 5 DAYS 30 Each 4 Active predniSONE (DELTASONE) 1 mg tablet TAKE 1-4 TABLETS BY MOUTH DAILY DIRECTED BY PHYSICIAN. TAKE WITH 5 MG DAILY. 120 Tablet 2 04/25/2023 2:35 PM ASSEMBLER EQUIPMENT 4 Active nirmatrelvir-r itonavir (Paxlovid) 300(150mg x [...] failure. 90 Tablet 2 04/25/2023 2:35 PM ASSEMBLER EQUIPMENT 4 Active Immunizations Immunization Administration Dates Next [...]
--- OUTSIDE RECORDS SUMMARY | 2024-07-04 16:43 | XMS_ITS | Encounter Summary ---
Author Organization [facility] Healthcare Address [address] [place] [address] Care Team Providers Care Pest Control Worker Helper Name Role Phone Zoila Gleason MD Primary Care Provider Rupal Isabel MD Unavailable Rekha Osborne MD Unavailable [phone] Mayuri Lyn RN Unavailable Michelle Colin LCSW Unavailable Encounter Details Date Type Department Care Team (Late st Contact Info) Description 03/31/2020 Telephone [facility] [place] [address] Wendy Storm, MS Social History [...] on file Legal Sex Male 1:53 AM FAST FOOD SUPERVISOR Gender Identity Male 10/02/2023 12:44 PM CDT Sexual Orientation Don't know 11/15/2020 1: 06 PM CDT documented as of this encounter Plan of Treatment Not on file documented as of this encounter Visit Diagnoses Not on filedocumented in this encounter Additional Health Concerns Infection Onset Date Last Indicated Resolved Time COVID: Suspected 04/21/2020 04/21/2020 04/21/2020 11:24 AM FAST FOOD SUPERVISOR Respiratory Infection (MICKEY), contact + droplet Comment:Automatically added due to negative COVID-19 result. 04/21/2020 04/21/2020 05/05/2020 3:0 6 AM FAST FOOD SUPERVISOR COVID: Suspected 04/21/2020 04/21/2020 04/21/2020 6:48 PM FAST FOOD SUPERVISOR COVID: Suspected 09/25/2020 09/25/2020 09/25/2020 10:11 AM CDT Rhino/Enterovirus 09/25/2020 09/25/2020 10/02/2020 3:05 AM CDT COVID: Recovered 11/29/2020 11/29/2020 03/29/2021 3:05 AM FAST FOOD SUPERVISOR COVID: Suspected 10/09/2021 10/09/2021 10/09/2021 9:37 AM CDT COVID: Suspected 03/06/2022 03/06/2022 03/06/2022 9:30 AM FAST FOOD SUPERVISOR RSV, droplet 03/06/2022 03/06/2022 03/13/2022 3:05 AM FAST FOOD SUPERVISOR COVID: Suspected 06/26/2022 06/26/2022 06/26/2022 5:59 PM CDT Coronavirus, droplet 06/26/2022 06/26/2022 023 3:06 AM CDT documented as of this encounter Care Teams Pest Control Worker Helper Relationship Specialty Start Date End Date Zoila Gleason MD [address] [place] [address] PCP - General 09/29/16 Rupal Isabel MD 10 [facility] [address] [place] [address] Referring Physician Allergy and Immunology 01/11/19 Rekha Osborne MD [address] [place] [address] Medical Oncologist/Parts Counterman Hematology 05/11/20 Mayuri Lyn, RN 4590 [facility] [address] [place] [address] LAST Outpatient Assignment Agent 12/04/20 01/04/21 Michelle Colin, HIGH DENSITY TALC COATER OPERATOR 4590 [facility] ([facility]) Mailstop [phone] [place] [address] LAST Outpatient Assignment Agent 10/19/21 11/16/21 documented as of this encounter
[2024-07-04 17:03] LABS: Basophils Absolute Auto 0.2 K/mm3 (0.0-0.1); Basophils Percent Auto 1.3 % (0.2-1.2); Eosinophils Absolute Auto 0.1 K/mm3 (0-0.3); Eosinophils Percent Auto 0.4 % (0-4.4); Hematocrit 49.2 % (42.0-52.0); Immature Granulocyte Absolute 0.25 K/mm3 (0.00-0.031); Immature Granulocyte Percent A 1.5 % (0-0.5); Immature Reticulocyte Fraction 18.1 % (3.0-15.9); Lymphocytes Absolute Auto 2.32 K/mm3 (0.9-3.2); Lymphocytes Percent Auto 14.1 % (18.3-44.2); Mean Corpuscular HGB Conc 32.5 g/dl (32-36); Mean Corpuscular Hemoglobin 31.3 pg (26-34); Mean Corpuscular Volume 96.3 fl (80-100); Mean Platelet Volume 11.7 fl (7.4-10.4); Monocytes Absolute Auto 1.2 K/mm3 (0.1-0.6); Monocytes Percent Auto 7.2 % (2.6-8.5); Neutrophils Absolute Auto 12.4 K/mm3 (1.3-6.7); Neutrophils Percent Auto 75.5 % (45.5-73.1); Platelet Count Result 274 k/mm3 (150-375); Red Blood Count 5.11 M/mm3 (4.6-6.20); Red Cell Distribution Width 16.5 % (11.5-14.5); Reticulocyte Hemoglobin Conten 34.7 pg (28.2-36.6); Reticulocyte Percent 1.91 % (0.7-4.3); White Blood Count 16.4 K/mm3 (4.5-10.0)
[2024-07-04 17:19] LABS: Alanine Aminotransferase 28 U/L (6-50); Albumin Level 4.4 g/dL (3.5-5.1); Alkaline Phosphatase 104 U/L (38-126); Anion Gap 8 mmol/L (4-12); Aspartate Amino Transferase 31 U/L (17-59); Bilirubin,Total 0.3 mg/dL (0.2-1.3); Blood Urea Nitrogen 22 mg/dL (9-20); Calcium 9.2 mg/dL (8.4-10.2); Carbon Dioxide 26 mmol/L (22-30); Chloride 106 mmol/L (98-107); Estimated Glomerular Filt Rate > 60; Glucose 83 mg/dL (65-110); Lactate Dehydrogenase 124 U/L (120-246); Potassium 4.3 mmol/L (3.4-5.0); Sodium 140 mmol/L (137-145)
== END 2024-07-04 16:41 | disposition home or self-care (01) ==
LOC: ANHLAB 16:41
PROVIDERS: PCP Pediatrics; Visit Provider Internal Medicine
DX: D69.6 Thrombocytopenia, unspecified (principal); D69.41 Evans syndrome; D50.9 Iron deficiency anemia, unspecified; D61.818 Other pancytopenia; D83.9 Common variable immunodeficiency, unspecified
CPT/HCPCS: 36415; 80053; 82728; 83615; 85025; 85046; 86880

== ENCOUNTER 2024-07-22 13:19 | Outpatient (CLI) | payer BC, MEDICAID, SELFPAY ==
[2024-07-22 14:26] LABS: Basophils Absolute Auto 0.1 K/mm3 (0.0-0.1); Basophils Percent Auto 1.4 % (0.2-1.2); Eosinophils Percent Auto 0.2 % (0-4.4); Hematocrit 53.4 % (42.0-52.0); Hemoglobin 17.3 g/dL (14.0-18.0); Immature Granulocyte Absolute 0.08 K/mm3 (0.00-0.031); Immature Granulocyte Percent A 0.9 % (0-0.5); Lymphocytes Absolute Auto 1.58 K/mm3 (0.9-3.2); Lymphocytes Percent Auto 16.9 % (18.3-44.2); Mean Corpuscular HGB Conc 32.4 g/dl (32-36); Mean Corpuscular Hemoglobin 31.3 pg (26-34); Mean Corpuscular Volume 96.7 fl (80-100); Mean Platelet Volume 11.5 fl (7.4-10.4); Monocytes Absolute Auto 0.7 K/mm3 (0.1-0.6); Monocytes Percent Auto 7.3 % (2.6-8.5); Neutrophils Absolute Auto 6.9 K/mm3 (1.3-6.7); Neutrophils Percent Auto 73.3 % (45.5-73.1); Platelet Count Result 222 k/mm3 (150-375); Red Blood Count 5.52 M/mm3 (4.6-6.20); White Blood Count 9.4 K/mm3 (4.5-10.0)
[2024-07-22 14:33] LABS: Alanine Aminotransferase 33 U/L (6-50); Albumin Level 4.2 g/dL (3.5-5.1); Alkaline Phosphatase 110 U/L (38-126); Aspartate Amino Transferase 35 U/L (17-59); Bilirubin,Total 0.4 mg/dL (0.2-1.3)
--- OUTSIDE RECORDS SUMMARY | 2024-07-22 14:57 | XMS_ITS | Clinical Summary ---
Author Organization [employer] [facility] Address [address] [place] [address] Care Team Providers Care Airport Traffic Controller Name Role Phone Unavailable Primary Care Provider [...] WEEKS. 24 Packet 1 03/02/2023 2:48 PM TAPE CONTROL SKIN OR SPAR MILL OPERATOR 3 Active clindamycin phosphate (CLEOCIN T) 1 [...] procedure 4 Capsule 1 03/02/2023 2:45 PM TAPE CONTROL SKIN OR SPAR MILL OPERATOR 3 Active docusate sodium (COLACE) 100 mg capsule Take one capsule (100 mg) orally twice a day 60 Capsule 3 03/14/2023 12:03 PM TAPE CONTROL SKIN OR SPAR MILL OPERATOR 3 Active levothyroxine 112 mcg tablet Take one tablet (112 mcg) orally every morning 90 Tablet 2 03/14/2023 12:03 PM TAPE CONTROL SKIN OR SPAR MILL OPERATOR 3 Active pantoprazole (PROTONIX) 40 mg Tablet, Delayed Release (E.C.) Take one tablet (40 mg) orally daily 60 Tablet 03/14/2023 12:03 PM TAPE CONTROL SKIN OR SPAR MILL OPERATOR 3 Active sertraline (ZOLOFT) 100 mg tablet Take one tablet (50 mg) orally daily 90 Tablet 3 3 Active hydrocortisone sod succ, PF, (Solu-CORTEF Act-O-Vial, PF,) 100 mg/2 mL Recon Soln Inject 2 mL (100 mg) by intramuscular injection 1 time daily as needed for adrenal crisis. 10 Each 2 04/17/2023 6:40 PM TAPE CONTROL SKIN OR SPAR MILL OPERATOR 4 Active apixaban (Eliquis) 5 mg tablet Take 1 Tablet (5 mg) by mouth 2 times daily. 30 Tablet 1 04/08/2023 4:00 PM TAPE CONTROL SKIN OR SPAR MILL OPERATOR 4 Active nirmatrelvir-r itonavir (Paxlovid) 300(150mg x 2)-100 mg oral pack TAKE 2 TABLETS OF NIRMATRELVIR AND 1 TABLET OF RITONAVIR BY MOUTH TWICE DAILY FOR 5 DAYS 30 Each 4 Active predniSONE (DELTASONE) 1 mg tablet TAKE 1-4 TABLETS BY MOUTH DAILY DIRECTED BY PHYSICIAN. TAKE WITH 5 MG DAILY. 120 Tablet 2 04/25/2023 2:35 PM TAPE CONTROL SKIN OR SPAR MILL OPERATOR 4 Active nirmatrelvir-r itonavir (Paxlovid) 300(150mg x [...] failure. 90 Tablet 2 04/25/2023 2:35 PM TAPE CONTROL SKIN OR SPAR MILL OPERATOR 4 Active Immunizations Immunization Administration Dates Next [...]
--- OUTSIDE RECORDS SUMMARY | 2024-07-22 14:57 | XMS_ITS | Encounter Summary ---
Author Organization [facility] Address [address] [place] [address] Phone Care Team Providers Care Tombstone Erector Name Role Phone Zoila Gleason MD Primary Care Provider [phone] Rupal Isabel MD Unavailable [phone] Rekha Osborne MD Unavailable [phone] Encounter Details Date Type Department Care Team [...] often do you attend chur ch or bahai services? Never 10/11/2021 Do you belong to [...] place to sleep or slept in a custodial (including now)? No 10/11/2021 Sex and Gender Information Value Date Recorded Sex Assigned at Not on file Legal Sex Male 1:53 AM SUPERVISOR ENDLESS TRACK VEHICLE Gender Identity Male 10/02/2023 12:44 PM CDT [...] documented as of this encounter Care Teams Tombstone Erector Relationship Specialty Start Date End Date Zoila Gleason MD [address] [address] PCP - General 09/29/16 Rupal Isabel MD 10 [facility] [address] [place] [address] Referring Physician Allergy and Immunology 01/11/19 Rekha Osborne MD [address] [place], [place] [address] Medical Oncologist/Director Of Managed Services Hematology 05/11/20 documented as of this encounter
--- OUTSIDE RECORDS SUMMARY | 2024-07-22 14:57 | XMS_ITS | Clinical Summary ---
Author Organization [facility] ospital Address [address] [place] [address] Care Team Providers Care Milieu Manager Name Role Phone Zoila Gleason MD Primary Care Provider [phone] Rupal Isabel MD Unavailable Rekha Osborne MD Unavailable [phone] Allergies Active Allergy Reactions Criticality Noted Date [...] Never used. 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 -As of 12/18/23 at 1300, per [place] [facility] [phone] - E. Coli. -Repeat blood cultures NGTD -Received cefepime; changed to cefuroxime to complete a 7 day course. Source is suspected to be UTI -TTE neg for vegetations Leukocytosis 12/17/2023 Assessment & Plan (12/17/2023 8:50 PM CDT): CBC at [place] 12/15 WBC 20.5 (81% neutrophils). 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 Hgb now [...] Neutropenic fever 09/25/2020 Idiopathic thrombocytopenic purpura (ITP) ([facility]) 07/09/2020 Assessment & Plan (12/01/2020 [...] cytopenia, his initial presentation for thrombocytopenia to [facility] was in 2012 (17 yo) with [...] responded to steroid and rituximab last time ([id number]). During his last admission for UTI, he [...] bid - received stress dose steroids at [place] - continue pred 5 BID - per [...] antibody (red top 2 ml) 2107 to [place] - consider ACTH stim test this admission [...] patient on 11/07. 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 Followed by endocrinology at [facility]. Currently on 150 mcg levothyroxine daily. [...] Avoid concomitant administration of Levothyroxine with patient's FOSTER CARE WORKER iron. Separate dosing by at least 4 hours. Pediatric Endocrinology will continue to follow. 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 (05/14/2020): Autoimmune anemia, neutropenia, [...] Department Care Team Description 05/24/2024 Documentation [facility] Hematology [facility] [address] [id number] Rose Marie Zapata RMA Prior Auth (Doptelet Approved through 05/23/25) 05/24/2024 Documentation [facility] Hematology [facility] [address] [place] [id number] Saniya Alberts RN 05/13/2024 2:40 PM SOC ANALYST Office Visit [facility] Endocrinology Metabolism and Lipid [address] [facility] 5th [place] [address] [place] [address] Jesenia Cottrell MD Adrenal insufficiency (Primary Dx); Arpita's syndrome (HCC); Low bone density for age; Hypogonadism in male; Vitamin D deficiency 04/25/2024 11:30 AM SOC ANALYST Lab [facility] at [address] [place] [address] AIHA (autoimmune hemolytic anemia) (HCC); Chronic ITP (idiopathic thrombocytopenia) (HCC) 04/25/2024 9:00 AM SOC ANALYST Office Visit [facility] Hematology [address] [facility] [address] [place] [address] Rekha Osborne MD AIHA (autoimmune hemolytic anemia) (HCC) (Primary Dx); Chronic ITP (idiopathic thrombocytopenia) (HCC); CVID (common variable immunodeficiency) (HCC); High risk medication use 04/25/2024 8:30 AM SOC ANALYST Lab [facility] Oncology [address] [place] [address] [address] [place] [id number] from Last 3 Months Immunizations Immunization Administration [...] Influenza, Trivalent, Preser vative Free, Intramuscular 03/09/2016 Wide Limited Release [employer] ([employer]) SARS-CoV-2 Vaccination 06/08/2020 MMR 10/01/2002,01/20/1999 Meningococcal [...] COVID-19 10/2019 Clotting disorder Heart disease s/p CT secondary to severe anemia GI (gastrointestinal bleed) [...] any clubs o r organizations such as latter-day groups, unions, fraternal or athletic groups, or [...] on file Legal Sex Male 1:53 AM SOC ANALYST Gender Identity Male 10/02/2023 12:44 PM CDT Sexual Orientation Don't know 11/15/2020 1: 06 PM CDT Obstetrics History Last Filed Vital Signs Vital Sign Reading Time Taken Comments Blood Pressure 117/79 05/13/2024 2:31 PM SOC ANALYST Pulse 90 05/13/2024 2:31 PM SOC ANALYST Temperature 36.9 C (98.5 F) 05/13/2024 2:31 PM SOC ANALYST Respiratory Rate 18 03/12/2024 2:48 PM SOC ANALYST Oxygen Saturation 96% 03/12/2024 2:48 PM SOC ANALYST Inhaled Oxygen Concentration - - Weight 60.8 kg (134 lb) 05/13/2024 2:31 PM SOC ANALYST Height 160 cm (5' 3 ) 05/13/2024 2:31 PM SOC ANALYST Body Mass Index 23.74 05/13/2024 2:31 PM SOC ANALYST Plan of Treatment Health Maintenance Due Date [...] Diagnosis Comments EGFR Routine 04/25/2024 10:00 AM SOC ANALYST AIHA (autoimmune hemolytic anemia) (HCC) Chronic ITP (idiopathic thrombocytopenia) (HCC) DIFFERENTIAL AUTO Routine 04/25/2024 10: 00 AM SOC ANALYST AIHA (autoimmune hemolytic anemia) (HCC) Chronic ITP (idiopathic thrombocytopenia) (HCC) CBC WITH AUTO DIFFERENTIAL Routine 04/25/2024 10:00 AM SOC ANALYST AIHA (autoimmune hemolytic anemia) (HCC) Chronic ITP (idiopathic thrombocytopenia) (HCC) COMPREHENSIVE METABOLIC PANEL Routine 04/25/2024 10:00 AM SOC ANALYST AIHA (autoimmune hemolytic anemia) (HCC) Chronic ITP (idiopathic thrombocytopenia) (HCC) RETICULOCYTES Routine 04/25/2024 10:00 AM SOC ANALYST AIHA (autoimmune hemolytic anemia) (HCC) Chronic ITP (idiopathic thrombocytopenia) (HCC) HAPTOGLOBIN Routine 04/25/2024 10:00 AM SOC ANALYST AIHA (autoimmune hemolytic anemia) (HCC) Chronic ITP (idiopathic thrombocytopenia) (HCC) LACTATE DEHYDROGENASE Routine 04/25/2024 10:00 AM SOC ANALYST AIHA (autoimmune hemolytic anemia) (HCC) Chronic ITP (idiopathic thrombocytopenia) (HCC) DIRECT ANTIGLOBULIN TEST Routine 04/25/2024 10:00 AM SOC ANALYST AIHA (autoimmune hemolytic anemia) (HCC) Chronic ITP (idiopathic thrombocytopenia) (HCC) HEPATITIS PANEL, ACUTE Routine 5:33 PM CDT from Last 3 Months or Most Recently Relevant to Health Maintenance Results * eGFR (04/25/2024 10:00 AM SOC ANALYST) eGFR >90 >=60 mL/min/1. 73 m2 Comment: [...] was last reviewed 2021. Testing performed by: [facility], [address] [place] [address] Blood 04/25/2024 10:0 0 AM SOC ANALYST 04/25/2024 10:16 AM SOC ANALYST us Rekha Osborne MD LAB BLOOD ORDERABLES Final Result [facility] [address] [facility]. Department of Laboratories [place], [place] [id number] * (ABNORMAL) Differential, auto (04/25/2024 10:00 AM SOC ANALYST) Neutrophil abs 8.6(H) 1.5 - 6.5 K/cumm Comment:Testing performed by : [place] [address], [address] [place] [address] Imm gran abs 0.5(H) 0.0 - 0.1 K/cumm CERNER [facility] Comment:Testing performed by : [place] [address], [address] [place] [address] Lymphocyte abs 2.3 0.8 - 3.3 K/cumm [facility] Comment:Testing performed by : [place] [address], [address] [place] [address] Monocyte abs 1.4(H) 0.2 - 0.8 K/cumm [facility]ER [facility] Comment:Testing performed by : [place] [address], [address] [place] [address] Eosinophil abs 0.1 0.0 - 0.5 K/cumm [facility] Comment:Testing performed by : [place] [address], [address] [place] [address] Basophil abs 0.2(H) 0.0 - 0.1 K/cumm [facility] Comment:Testing performed by : [place] [address], [address] [place] [address] Neutrophil pct 65.5 % [facility] Comment: Interpretive Data Percent cell count reference ranges are not reported, since discordance with absolute values may lead to misinterpretation of CBC data. Current Interpretive Data was last revised on 2017. Testing performed by: [facility] 2, [address] [place] [address] Imm gran pct 4.0 % [facility] Comment: Interpretive Data Percent cell count reference ranges are not reported, since discordance with absolute values may lead to misinterpretation of CBC data. Current Interpretive Data was last revised on 2017. Testing performed by: [facility], [facility] 2, [address] [place] [address] Lymphocyte pct 17.2 % [facility] Comment: Interpretive Data Percent cell count reference ranges are not reported, since discordance with absolute values may lead to misinterpretation of CBC data. Current Interpretive Data was last revised on 2017. Testing performed by: [facility], [facility] 2, [address] [place] [address] Monocyte pct 10.9 % [facility] Comment: Interpretive Data Percent cell count reference ranges are not reported, since discordance with absolute values may lead to misinterpretation of CBC data. Current Interpretive Data was last revised on 2017. Testing performed by: [facility], [facility] 2, [address] [place] [address] Eosinophil pct 0.7 % [facility] Comment: Interpretive Data Percent cell count reference ranges are not reported, since discordance with absolute values may lead to misinterpretation of CBC data. Current Interpretive Data was last revised on 2017. Testing performed by: [facility], [facility] 2, [address] [place] [address] Basophil pct 1.7 % [facility] Comment: Interpretive Data Percent cell count reference ranges are not reported, since discordance with absolute values may lead to misinterpretation of CBC data. Current Interpretive Data was last revised on 2017. Testing performed by: [facility], [facility] 2, [address] [place] [address] Blood 04/25/2024 10:0 0 AM SOC ANALYST 04/25/2024 10:05 AM SOC ANALYST us Rekha Osborne MD LAB BLOOD ORDERABLES Final Result [facility] [address] [place] [address] * (ABNORMAL) CBC with auto differential (04/25/2024 10:00 AM SOC ANALYST) WBC 13.1(H) 3.8 - 9.9 K/cumm Comment:Testing performed by : [place] [address] [place] [address] Hgb 15.1 13.0 - 17.5 g/dL [facility] Comment:Testing performed by : [place] [address] [place] [address] Hct 45.6 38.9 - 50.3 % [facility]A [facility] Comment:Testing performed by : [place] [address] [place] [address] Plt 201 150 - 400 K/cumm [facility] Comment:Testing performed by : [place] [address], [place] [address] MPV 12.4(H) 9.1 - 12.3 fL [facility] Comment:Testing performed by : [place] [address] [place] [address] RBC 4.78 4.30 - 5.80 M/cumm PA[facility]A [facility] Comment:Testing performed by : [place] [address] [place] [address] MCV 95 81 - 96 fL [facility] Comment:Testing performed by : [place] [address], [address] [place] [address] MCH 31.6 27.1 - 33.3 pg [facility] Comment:Testing performed by : [place] [address], [address] [place] [address] MCHC 33.1 32.3 - 35.7 g/dL [facility] Comment:Testing performed by : [place] [address], [address] [place] [address] RDW CV 16.8(H) 11.1 - 14.9 % PA[facility]A CAMPOS Comment:Testing performed by : [facility] 2, [address] [place] [address] RDW SD 58.8(H) 35.7 - 48.1 fL [facility] CAMP[facility] Comment:Testing performed by : [place] [address], [address] [place] [address] NRBC abs 0.03(H) 0.00 - 0.01 K/cumm PA[facility] CAMP[facility] Comment:Testing performed by : [place] [address] [place] [address] Blood 04/25/2024 10:0 0 AM SOC ANALYST 04/25/2024 10:05 AM SOC ANALYST Rekha Osborne MD LAB BLOOD ORDERABLES Final Result [facility] [address] [facility] Department of Laboratories [place] [id number] * (ABNORMAL) Reticulocyte Count (04/25/2024 10:00 AM SOC ANALYST) Retics, absolute 0.104(H) 0.020 - 0.087 M/cumm Comment:Testing performed by : [place] [address], [address] [place] [address] Retics 2.2 0.4 - 2.9 % [facility] CAMP[facility] Comment:Testing performed by : [place] [address] [place] [address] Reticulocyte Hgb 32.9 30.5 - 38.0 pg PA[facility]A CAMPOS Comment:Testing performed by : [place] [address], [address] [place] [address] Blood 04/25/2024 10:0 0 AM SOC ANALYST 04/25/2024 10:05 AM SOC ANALYST Rekha Osborne MD LAB BLOOD ORDERABLES Final Result Performing Organization Address [facility]/ZIP Co de Phone Number [facility] [address] [facility] [place] [address] * Direct antiglobulin test (04/25/2024 10:00 AM SOC ANALYST) HUMZA Poly Interp Negative Comment:Testing performed by : [facility], [address] [facility], [place] [address] Blood 04/25/2024 10:0 0 AM SOC ANALYST 04/25/2024 10:16 AM SOC ANALYST Rekha Osborne MD LAB BLOOD BANK TEST ORDERAB LES Final Result Performing Organization Address [facility] Co de Phone Number [facility] [address] [address] [facility]. [place] [address] * Lactate dehydrogenase (LD) (04/25/2024 10:00 AM SOC ANALYST) Pathologist [facility] Lactate dehydrogenase (LDH) 139 100 - 250 Units/L Comment:Testing performed by : [facility], [address] [facility], [place] [address] Blood 04/25/2024 10:0 0 AM SOC ANALYST 04/25/2024 10:16 AM SOC ANALYST Rekha Osborne MD LAB BLOOD ORDERABLES Edited Result - Final Performing Organization Address [facility]/ZIP Co de Phone Number [facility] [address] [place] [address] * (ABNORMAL) Haptoglobin (04/25/2024 10:00 AM SOC ANALYST) Pathologist [facility] Haptoglobin 221(H) 30 - 200 mg/dL Comment:Testing performed by : [facility], [facility], [place]., [address] Blood 04/25/2024 10:0 0 AM SOC ANALYST 04/25/2024 1:35 PM SOC ANALYST us Rekha Osborne MD LAB BLOOD ORDERABLES Final Result [facility] [address] [address]. [place] [address] * Comprehensive metabolic panel (04/25/2024 10:00 AM SOC ANALYST) Sodium 139 135 - 145 mmol/L Comment:Testing performed by : [facility], [address] [place] [address] Potassium, pl 4.1 3.3 - 4.9 mmol/L [facility]UR [facility] Comment:Testing performed by : [facility], [address] [place] [address] Chloride 103 97 - 110 mmol/L [facility] Comment:Testing performed by : [facility], [address], [place] [address] CO2 26 22 - 32 mmol/L [facility] Comment:Testing performed by : [facility], [address], [place] [address] Anion gap 10 2 - 15 mmol/L [facility] Comment:Testing performed by : [facility], [address] [place] [address] BUN 15 6 - 25 mg/dL [facility] Comment:Testing performed by : [facility], [address], [place] [address] Creatinine 0.80 0.80 - 1.30 mg/dL [facility] Comment:Testing performed by : [facility], [address], [place] [address] Glucose 98 70 - 199 mg/dL CERNER [...] was last revised 2022. Testing performed by: [facility], [address], [place] [address] Calcium 9.3 8.5 - 10.3 mg/dL [facility] Comment:Testing performed by : [facility], [address], [place] [address] Bilirubin, total 0.2 0.1 - 1.2 mg/dL [facility] Comment:Testing performed by : [facility], [address], [place] [address] Protein, pl 6.8 6.5 - 8.5 g/dL [facility] Comment:Testing performed by : [facility], [address], [place] [address] Albumin 3.7 3.5 - 5.0 g/dL [facility] Comment:Testing performed by : [facility], [address], [place] [address] Alk phos 122 40 - 130 Units/L [facility] Comment:Testing performed by : [facility], [address], [place] [address] ALT 29 7 - 55 Units/L [facility] Comment:Testing performed by : [facility], [address], [place] [address] AST 23 10 - 50 Units/L [facility] Comment:Testing performed by : [facility], [address], [place] [address] Blood 04/25/2024 10:0 0 AM SOC ANALYST 04/25/2024 10:16 AM SOC ANALYST us Rekha Osborne MD LAB BLOOD ORDERABLES Edited Result - Final [facility] [address] Department [place] [address] * Hepatitis panel, acute (11/28/2020 5:33 PM CDT) Hep A IgM Nonreactive Nonreactive [facility] Comment: Interpretive Data: If Hep A IgM Ab is reported as Equivocal, a new sample should be drawn in two weeks for testing. Current interpretive data was last revised on 19. Hep B core IgM Nonreactive Nonreactive [facility] Comment: Interpretive Data If HepB Core IgM Ab is reported as Equivocal, a new sample should be drawn in two weeks for testing. Current interpretive data was last revised on 19. Hep C Ab Nonreactive Nonreactive [facility] Comment:Antibodies to HCV no t detected. Does NOT exclude the possibility of recent exposure to HCV. HepBsAg Nonreactive Nonreactive [facility] Blood 11/28/2020 5:33 PM CDT 11/28/2020 5:53 PM CDT Jazzmine Mccartney NP LAB MICROBIO LOGY - GENERAL ORDERABLES Edited Result - Final PAUL[facility] Department [place] [address] from Last 3 Months or Most Recently Relevant to Health Maintenance Insurance [place] [facility] CHOICE PLUS [employer] OPEN ACC[place]ICE [place] P[place] [facility] CHOICE PLUS [employer] OPEN ACCESS IDPA [facility] [place] [employer] OPEN ACCESS [facility] CHOICE PLUS Advance Directives For more information, please contact: [phone] Documents on File Type Date Recorded 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
--- OUTSIDE RECORDS SUMMARY | 2024-07-22 14:58 | XMS_ITS | Encounter Summary ---
Author Organization [facility] Address [address] [place] [address] Phone Care Team Providers Care Rounder Hand Name Role Phone Zoila Gleason MD Primary Care Provider Rupal Isabel MD Unavailable [phone] Rekha Osborne MD Unavailable [phone] Mayuri Lyn RN Unavailable [phone] Michelle ColinW Unavailable [phone] Encounter Details Date Type Department Care Team [...] on file Legal Sex Male 1:53 AM INFORMATION TECHNOLOGY CONSULTANT Gender Identity Male 10/02/2023 12:44 PM [...] COVID: Suspected 04/21/2020 04/21/2020 04/21/2020 11:24 AM INFORMATION TECHNOLOGY CONSULTANT Respiratory Infection (MICKEY), contact + droplet Comment:Automatically added due to negative COVID-19 result. 04/21/2020 04/21/2020 05/05/2020 3:0 6 AM INFORMATION TECHNOLOGY CONSULTANT COVID: Suspected 04/21/2020 04/21/2020 04/21/2020 6:48 PM INFORMATION TECHNOLOGY CONSULTANT COVID: Suspected 09/25/2020 09/25/2020 09/25/2020 10:11 AM CDT Rhino/Enterovirus 09/25/2020 09/25/2020 10/02/2020 3:05 AM CDT COVID: Recovered 11/29/2020 11/29/2020 03/29/2021 3:05 AM INFORMATION TECHNOLOGY CONSULTANT COVID: Suspected 10/09/2021 10/09/2021 10/09/2021 9:37 AM CDT COVID: Suspected 03/06/2022 03/06/2022 03/06/2022 9:30 AM INFORMATION TECHNOLOGY CONSULTANT RSV, droplet 03/06/2022 03/06/2022 03/13/2022 3:05 AM INFORMATION TECHNOLOGY CONSULTANT COVID: Suspected 06/26/2022 06/26/2022 06/26/2022 5:59 PM CDT Coronavirus, droplet 06/26/2022 06/26/2022 023 3:06 AM CDT documented as of this encounter Care Teams Rounder Hand Relationship Specialty Start Date End Date Zoila Gleason MD [address] [place] [address] PCP - General 09/29/16 Rupal Isabel MD [address] [place] [address] [address] [place] [address] Referring Physician Allergy and Immunology 01/11/19 Rekha Osborne MD [address] [place] [address] Medical Oncologist/Dough Mixer Hematology 05/11/20 Mayuri Lyn, RN [address] [facility] [address] [place] [address] SHOP Outpatient Cooler Deliverer 12/04/20 01/04/21 Michelle Colin LCSW [address] [facility] ([facility] Mailstop [phone] [place] [address] SHOP Outpatient Cooler Deliverer 10/19/21 11/16/21 documented as of this encounter
--- OUTSIDE RECORDS SUMMARY | 2024-07-22 14:58 | XMS_ITS | Encounter Summary ---
Author Organization [facility] Address [address] [place] [address] Phone Care Team Providers Care Caul Dresser Name Role Phone Zoila Gleason MD Primary Care Provider Rupal Isabel MD Unavailable [phone] Rekha Osborne MD Unavailable [phone] Mayuri Lyn RN Unavailable [phone] Michelle ColinW Unavailable [phone] Encounter Details Date Type Department Care Team [...] file Legal Sex Male 1:53 AM CLINICAL SECRETARY Gender Identity Male 10/02/2023 12:44 PM [...] Recovered 11/29/2020 11/29/2020 03/29/2021 3:05 AM CLINICAL SECRETARY COVID: Suspected 10/09/2021 10/09/2021 10/09/2021 9:37 AM CDT COVID: Suspected 03/06/2022 03/06/2022 03/06/2022 9:30 AM CLINICAL SECRETARY RSV, droplet 03/06/2022 03/06/2022 03/13/2022 3:05 AM CLINICAL SECRETARY COVID: Suspected 06/26/2022 06/26/2022 06/26/2022 5:59 PM CDT Coronavirus, droplet 06/26/2022 06/26/2022 023 3:06 AM CDT documented as of this encounter Care Teams Caul Dresser Relationship Specialty Start Date End Date Zoila Gleason MD [address] [place] [address] PCP - General 09/29/16 Rupal Isabel MD [address] [place] [address] [address] [place] [address] Referring Physician Allergy and Immunology 01/11/19 Rekha Osborne MD [address] [place] [address] Medical Oncologist/Driller'S Assistant Hematology 05/11/20 Mayuri Lyn, RN [address] [facility] [address] [place], [place] [id number] SHOP Outpatient Sales Support Associate 12/04/20 01/04/21 Michelle Colin, ENGLISH PROFESSOR [address] [facility] ([facility] Mailstop [phone] [place] [address] SHOP Outpatient Sales Support Associate 10/19/21 11/16/21 documented as of this encounter
--- OUTSIDE RECORDS SUMMARY | 2024-07-22 14:58 | XMS_ITS | Encounter Summary ---
Author Organization [facility] Address [address] [place] [address] Phone Care Team Providers Care Curriculum Developer Name Role Phone Zoila Gleason MD Primary Care Provider [phone] Rupal Isabel MD Unavailable [phone] Rekha Osborne MD Unavailable [phone] Mayuri Lyn RN Unavailable [phone] Michelle ColinW Unavailable [phone] Encounter Details Date Type Department Care Team [...] on file Legal Sex Male 1:53 AM LINSEED OIL BOILER Gender Identity Male 10/02/2023 12:44 PM CDT [...] COVID: Suspected 04/21/2020 04/21/2020 04/21/2020 11:24 AM LINSEED OIL BOILER Respiratory Infection (MICKEY), contact + droplet Comment:Automatically added due to negative COVID-19 result. 04/21/2020 04/21/2020 05/05/2020 3:0 6 AM LINSEED OIL BOILER COVID: Suspected 04/21/2020 04/21/2020 04/21/2020 6:48 PM LINSEED OIL BOILER COVID: Suspected 09/25/2020 09/25/2020 09/25/2020 10:11 AM CDT Rhino/Enterovirus 09/25/2020 09/25/2020 10/02/2020 3:05 AM CDT COVID: Recovered 11/29/2020 11/29/2020 03/29/2021 3:05 AM LINSEED OIL BOILER COVID: Suspected 10/09/2021 10/09/2021 10/09/2021 9:37 AM CDT COVID: Suspected 03/06/2022 03/06/2022 03/06/2022 9:30 AM LINSEED OIL BOILER RSV, droplet 03/06/2022 03/06/2022 03/13/2022 3:05 AM LINSEED OIL BOILER COVID: Suspected 06/26/2022 06/26/2022 06/26/2022 5:59 PM CDT Coronavirus, droplet 06/26/2022 06/26/2022 023 3:06 AM CDT documented as of this encounter Care Teams Curriculum Developer Relationship Specialty Start Date End Date Zoila Gleason MD [address] [place] [address] PCP - General 09/29/16 Rupal Isabel MD 10 [facility] [address] [place] [address] Referring Physician Allergy and Immunology 01/11/19 Rekha Osborne MD [address] [place] [address] Medical Oncologist/Slip Mixer Hematology 05/11/20 Mayuri Lyn, RN 4590 [facility] [address] [place] [address] SHOP Outpatient Music Rehabilitation Therapist 12/04/20 01/04/21 Michelle Colin LCSW 4590 [facility] Mailstop [phone] [place] [address] SHOP Outpatient Music Rehabilitation Therapist 10/19/21 11/16/21 documented as of this encounter
--- OUTSIDE RECORDS SUMMARY | 2024-07-22 14:58 | XMS_ITS | Encounter Summary ---
Author Organization [facility] Address [address] [place] [address] Phone Care Team Providers Care Ad Trafficker Name Role Phone Zoila Gleason MD Primary Care Provider Rupal Isabel MD Unavailable [phone] Rekha Osborne MD Unavailable [phone] Mayuri Lyn RN Unavailable [phone] Michelle ColinW Unavailable [phone] Encounter Details Date Type Department Care Team [...] on file Legal Sex Male 1:53 AM BREAST PULLER Gender Identity Male 10/02/2023 12:44 PM CDT [...] COVID: Suspected 04/21/2020 04/21/2020 04/21/2020 11:24 AM BREAST PULLER Respiratory Infection (MICKEY), contact + droplet Comment:Automatically added due to negative COVID-19 result. 04/21/2020 04/21/2020 05/05/2020 3:0 6 AM BREAST PULLER COVID: Suspected 04/21/2020 04/21/2020 04/21/2020 6:48 PM BREAST PULLER COVID: Suspected 09/25/2020 09/25/2020 09/25/2020 10:11 AM CDT Rhino/Enterovirus 09/25/2020 09/25/2020 10/02/2020 3:05 AM CDT COVID: Recovered 11/29/2020 11/29/2020 03/29/2021 3:05 AM BREAST PULLER COVID: Suspected 10/09/2021 10/09/2021 10/09/2021 9:37 AM CDT COVID: Suspected 03/06/2022 03/06/2022 03/06/2022 9:30 AM BREAST PULLER RSV, droplet 03/06/2022 03/06/2022 03/13/2022 3:05 AM BREAST PULLER COVID: Suspected 06/26/2022 06/26/2022 06/26/2022 5:59 PM CDT Coronavirus, droplet 06/26/2022 06/26/2022 023 3:06 AM CDT documented as of this encounter Care Teams Ad Trafficker Relationship Specialty Start Date End Date Zoila Gleason MD [address] [place] [address] PCP - General 09/29/16 Rupal Isabel MD [address] [facility] [address] [place] [address] Referring Physician Allergy and Immunology 01/11/19 Rekha Osborne MD [address] [place] [address] Medical Oncologist/Wire Stitcher Operator Hematology 05/11/20 Mayuri Lyn, RN 4590 [facility] [address] [place] [address] SHOP Outpatient Top Flavor Attendant 12/04/20 01/04/21 Michelle Colin [facility] 4590 [facility] ([facility] Mailstop [phone] [place] [address] SHOP Outpatient Top Flavor Attendant 10/19/21 11/16/21 documented as of this encounter
--- OUTSIDE RECORDS SUMMARY | 2024-07-22 14:58 | XMS_ITS | Encounter Summary ---
Author Organization [facility] Address [address] [place] [address] Care Team Providers Care Medical Record Librarian Name Role Phone Zoila Gleason MD Primary Care Provider Rupal Isabel MD Unavailable [phone] Rekha Osborne MD Unavailable Mayuri Lyn RN Unavailable [phone] Michelle Colin LCSW Unavailable [phone] Encounter Details Date Type Department Care Team (Late st Contact Info) Description 11/12/2020 Telephone [facility] [address] [place] [address] Aiyana Lovelace RN Social History Tobacco [...] on file Legal Sex Male 1:53 AM PROVIDER SCRIBE Gender Identity Male 10/02/2023 12:44 PM CDT Sexual Orientation Don't know 11/15/2020 1: 06 PM CDT documented as of this encounter Plan of Treatment Not on file documented as of this encounter Visit Diagnoses Not on filedocumented in this encounter Additional Health Concerns Infection Onset Date Last Indicated Resolved Time COVID: Recovered 11/29/2020 11/29/2020 03/29/2021 3:05 AM PROVIDER SCRIBE COVID: Suspected 10/09/2021 10/09/2021 10/09/2021 9:37 AM CDT COVID: Suspected 03/06/2022 03/06/2022 03/06/2022 9:30 AM PROVIDER SCRIBE RSV, droplet 03/06/2022 03/06/2022 03/13/2022 3:05 AM PROVIDER SCRIBE COVID: Suspected 06/26/2022 06/26/2022 06/26/2022 5:59 PM CDT Coronavirus, droplet 06/26/2022 06/26/2022 023 3:06 AM CDT documented as of this encounter Care Teams Medical Record Librarian Relationship Specialty Start Date End Date Zoila Gleason MD [address] [place] [address] PCP - General 09/29/16 Rupal Isabel MD 10 [facility] [address] [place] [address] Referring Physician Allergy and Immunology 01/11/19 Rekha Osborne MD [address] [place] [address] Medical Oncologist/Electrical Equipment Assembler Hematology 05/11/20 Mayuri Lyn, RN 4590 [facility] [address] [place] [address] SHOP Outpatient Sanding Machine Operator Or Tender 12/04/20 01/04/21 Michelle Colin LCSW 4590 [facility] ([facility] Mailstop [phone] [place] [address] SHOP Outpatient Sanding Machine Operator Or Tender 10/19/21 11/16/21 documented as of this encounter
--- OUTSIDE RECORDS SUMMARY | 2024-07-22 14:58 | XMS_ITS | Encounter Summary ---
Author Organization [facility] Address [address] [place] [address] Phone Care Team Providers Care Sintering Press Operator Name Role Phone Zoila Gleason MD Primary Care Provider Rupal Isabel MD Unavailable [phone] Rekha Osborne MD Unavailable [phone] Mayuri Lyn RN Unavailable [phone] Michelle ColinW Unavailable [phone] Encounter Details Date Type Department Care Team [...] on file Legal Sex Male 1:53 AM GRAPHIC DESIGNER Gender Identity Male 10/02/2023 12:44 PM [...] COVID: Recovered 11/29/2020 11/29/2020 03/29/2021 3:05 AM GRAPHIC DESIGNER COVID: Suspected 10/09/2021 10/09/2021 10/09/2021 9:37 AM CDT COVID: Suspected 03/06/2022 03/06/2022 03/06/2022 9:30 AM GRAPHIC DESIGNER RSV, droplet 03/06/2022 03/06/2022 03/13/2022 3:05 AM GRAPHIC DESIGNER COVID: Suspected 06/26/2022 06/26/2022 06/26/2022 5:59 PM CDT Coronavirus, droplet 06/26/2022 06/26/2022 023 3:06 AM CDT documented as of this encounter Care Teams Sintering Press Operator Relationship Specialty Start Date End Date Zoila Gleason MD [address] [place] [address] PCP - General 09/29/16 Rupal Isabel MD [address] [place] [address] [address] [place] [address] Referring Physician Allergy and Immunology 01/11/19 Rekha Osborne MD [address] [place] [address] Medical Oncologist/Barrel Endshaker Adjuster Hematology 05/11/20 Mayuri Lyn, RN 4590 [facility] [address] [place], [place] [address] SHOP Outpatient Cop 12/04/20 01/04/21 Michelle Colin, CREDIT OPERATIONS PROCESSOR 4590 [facility] ([facility] Mailstop [phone] [place] [address] SHOP Outpatient Cop 10/19/21 11/16/21 documented as of this encounter
--- OUTSIDE RECORDS SUMMARY | 2024-07-22 14:58 | XMS_ITS | Encounter Summary ---
Author Organization [facility] [employer] [facility] Address [address] [place] [address] Phone Care Team Providers Care College Director Name Role Phone Zoila Gleason MD Primary Care Provider [phone] Rupal Isabel MD Unavailable [phone] Rekha Osborne MD Unavailable [phone] Mayuri Lyn RN Unavailable [phone] Michelle ColinW Unavailable [phone] Encounter Details Date Type Department Care Team [...] than three times a week 12/10/2020 Attends Sabianist Services Not on file 12/10 Active Member [...] place to sleep or slept in a long term (including now)? No 12/10/2020 Sex and Gender Information Value Date Recorded Sex Assigned at Not on file Legal Sex Male 1:53 AM PILE TRIMMER Gender Identity Male 10/02/2023 12:44 PM CDT [...] COVID: Recovered 11/29/2020 11/29/2020 03/29/2021 3:05 AM PILE TRIMMER COVID: Suspected 10/09/2021 10/09/2021 10/09/2021 9:37 AM CDT COVID: Suspected 03/06/2022 03/06/2022 03/06/2022 9:30 AM PILE TRIMMER RSV, droplet 03/06/2022 03/06/2022 03/13/2022 3:05 AM PILE TRIMMER COVID: Suspected 06/26/2022 06/26/2022 06/26/2022 5:59 PM CDT Coronavirus, droplet 06/26/2022 06/26/2022 023 3:06 AM CDT documented as of this encounter Care Teams College Director Relationship Specialty Start Date End Date Zoila Gleason MD [address] [place] [address] PCP - General 09/29/16 Rupal Isabel MD 10 [facility] [address] [place] [address] Referring Physician Allergy and Immunology 01/11/19 Rekha Osborne MD [address] [place] [address] Medical Oncologist/Talent Director Hematology 05/11/20 Mayuri Lyn, RN 4590 [facility] [address] [place] [address] SHOP Outpatient Ophthalmic Aide 12/04/20 01/04/21 Michelle Colin LCSW 4590 [facility] ([facility] Mailstop [phone] [place] [address] SHOP Outpatient Ophthalmic Aide 10/19/21 11/16/21 documented as of this encounter
--- OUTSIDE RECORDS SUMMARY | 2024-07-22 14:58 | XMS_ITS | Encounter Summary ---
Author Organization [facility] Address [address] [place] [address] Phone Care Team Providers Care Sports Physiotherapist Name Role Phone Zoila Gleason MD Primary Care Provider Rupal Isabel MD Unavailable [phone] Rekha Osborne MD Unavailable [phone] Mayuri Lyn RN Unavailable [phone] Michelle ColinW Unavailable [phone] Encounter Details Date Type Department Care Team [...] on file Legal Sex Male 1:53 AM BOWLING PIN SETTERS INSTALLER Gender Identity Male 10/02/2023 12:44 PM [...] COVID: Recovered 11/29/2020 11/29/2020 03/29/2021 3:05 AM BOWLING PIN SETTERS INSTALLER COVID: Suspected 10/09/2021 10/09/2021 10/09/2021 9:37 AM CDT COVID: Suspected 03/06/2022 03/06/2022 03/06/2022 9:30 AM BOWLING PIN SETTERS INSTALLER RSV, droplet 03/06/2022 03/06/2022 03/13/2022 3:05 AM BOWLING PIN SETTERS INSTALLER COVID: Suspected 06/26/2022 06/26/2022 06/26/2022 5:59 PM CDT Coronavirus, droplet 06/26/2022 06/26/2022 023 3:06 AM CDT documented as of this encounter Care Teams Sports Physiotherapist Relationship Specialty Start Date End Date Zoila Gleason MD [address] [place] [address] PCP - General 09/29/16 Rupal Isabel MD [address] [place] [address] [address] [place] [address] Referring Physician Allergy and Immunology 01/11/19 eRkha Osborne MD [address] [place] [address] Medical Oncologist/Physical Anthropologist Hematology 05/11/20 Mayuri Lyn, RN 4590 [facility] [address] [place], [place] [address] SHOP Outpatient Safe Deposit Clerk 12/04/20 01/04/21 Michelle Colin, PAPER SLITTER 4590 [facility] ([facility] Mailstop [phone] [place] [address] SHOP Outpatient Safe Deposit Clerk 10/19/21 11/16/21 documented as of this encounter
--- OUTSIDE RECORDS SUMMARY | 2024-07-22 14:58 | XMS_ITS | Encounter Summary ---
Author Organization [facility] [employer] [facility] Address [address] [place] [address] Phone Care Team Providers Care Hand Patcher Name Role Phone Zoila Gleason MD Primary Care Provider [phone] Rupal Isabel MD Unavailable [phone] Rekha Osborne MD Unavailable [phone] Michelle Colin [facility] Unavailable [phone] Encounter Details Date Type Department Care Team [...] on file Legal Sex Male 1:53 AM CITY PLANNING AIDE Gender Identity Male 10/02/2023 12:44 PM CDT [...] COVID: Suspected 03/06/2022 03/06/2022 03/06/2022 9:30 AM CITY PLANNING AIDE RSV, droplet 03/06/2022 03/06/2022 03/13/2022 3:05 AM CITY PLANNING AIDE COVID: Suspected 06/26/2022 06/26/2022 06/26/2022 5:59 PM CDT Coronavirus, droplet 06/26/2022 06/26/2022 023 3:06 AM CDT documented as of this encounter Care Teams Hand Patcher Relationship Specialty Start Date End Date Zoila Gleason MD [address] [place] [address] PCP - General 09/29/16 Rupal Isabel MD 10 [facility] [address] [place] [address] Referring Physician Allergy and Immunology 01/11/19 Rekha Osborne MD [address] [place], [place] [address] Medical Oncologist/It Communications Specialist Hematology 05/11/20 Michelle Colin, SAND CARRIER 4590 [facility] ([facility] Mailstop [phone] [place] [address] SHOP Outpatient Supervisor Drying 10/19/21 11/16/21 documented as of this encounter
--- OUTSIDE RECORDS SUMMARY | 2024-07-22 14:58 | XMS_ITS | Encounter Summary ---
Author Organization [facility] Address [address] [place] [address] Phone Care Team Providers Care Sewing Machine Tester Name Role Phone Zoila Gleason MD Primary Care Provider Rupal Isabel MD Unavailable [phone] Rekha Osborne MD Unavailable [phone] Mayuri Lyn RN Unavailable [phone] Michelle ColinW Unavailable [phone] Encounter Details Date Type Department Care Team [...] on file Legal Sex Male 1:53 AM SALES ASSISTANTS AND SALESPERSONS Gender Identity Male 10/02/2023 12:44 PM CDT [...] COVID: Suspected 04/21/2020 04/21/2020 04/21/2020 11:24 AM SALES ASSISTANTS AND SALESPERSONS Respiratory Infection (MICKEY), contact + droplet Comment:Automatically added due to negative COVID-19 result. 04/21/2020 04/21/2020 05/05/2020 3:0 6 AM SALES ASSISTANTS AND SALESPERSONS COVID: Suspected 04/21/2020 04/21/2020 04/21/2020 6:48 PM SALES ASSISTANTS AND SALESPERSONS COVID: Suspected 09/25/2020 09/25/2020 09/25/2020 10:11 AM CDT Rhino/Enterovirus 09/25/2020 09/25/2020 10/02/2020 3:05 AM CDT COVID: Recovered 11/29/2020 11/29/2020 03/29/2021 3:05 AM SALES ASSISTANTS AND SALESPERSONS COVID: Suspected 10/09/2021 10/09/2021 10/09/2021 9:37 AM CDT COVID: Suspected 03/06/2022 03/06/2022 03/06/2022 9:30 AM SALES ASSISTANTS AND SALESPERSONS RSV, droplet 03/06/2022 03/06/2022 03/13/2022 3:05 AM SALES ASSISTANTS AND SALESPERSONS COVID: Suspected 06/26/2022 06/26/2022 06/26/2022 5:59 PM CDT Coronavirus, droplet 06/26/2022 06/26/2022 023 3:06 AM CDT documented as of this encounter Care Teams Sewing Machine Tester Relationship Specialty Start Date End Date Zoila Gleason MD [address] [place] [address] PCP - General 09/29/16 Rupal Isabel MD [address] [place] [address] [address] [place] [address] Referring Physician Allergy and Immunology 01/11/19 Rekha Osborne MD [address] [place] [address] Medical Oncologist/Nursing Manager Hematology 05/11/20 Mayuri Lyn, RN 4590 [facility] [address] [place] [address] SHOP Outpatient Rate Marker 12/04/20 01/04/21 Michelle Colin LCSW 4590 [facility] ([facility] Mailstop [phone] [place] [address] SHOP Outpatient Rate Marker 10/19/21 11/16/21 documented as of this encounter
--- OUTSIDE RECORDS SUMMARY | 2024-07-22 14:58 | XMS_ITS | Encounter Summary ---
Author Organization [facility] Address [address] [place] [address] Phone Care Team Providers Care Simulation Analyst Name Role Phone Zoila Gleason MD Primary Care Provider Rupal Isabel MD Unavailable [phone] Rekha Osborne MD Unavailable [phone] Mayuri Lyn RN Unavailable [phone] Michelle ColinW Unavailable [phone] Encounter Details Date Type Department Care Team [...] file Legal Sex Male 1:53 AM DRAFTER ENGINEERING Gender Identity Male 10/02/2023 12:44 PM CDT [...] Suspected 04/21/2020 04/21/2020 04/21/2020 11:24 AM DRAFTER ENGINEERING Respiratory Infection (MICKEY), contact + droplet Comment:Automatically added due to negative COVID-19 result. 04/21/2020 04/21/2020 05/05/2020 3:0 6 AM DRAFTER ENGINEERING COVID: Suspected 04/21/2020 04/21/2020 04/21/2020 6:48 PM DRAFTER ENGINEERING COVID: Suspected 09/25/2020 09/25/2020 09/25/2020 10:11 AM CDT Rhino/Enterovirus 09/25/2020 09/25/2020 10/02/2020 3:05 AM CDT COVID: Recovered 11/29/2020 11/29/2020 03/29/2021 3:05 AM DRAFTER ENGINEERING COVID: Suspected 10/09/2021 10/09/2021 10/09/2021 9:37 AM CDT COVID: Suspected 03/06/2022 03/06/2022 03/06/2022 9:30 AM DRAFTER ENGINEERING RSV, droplet 03/06/2022 03/06/2022 03/13/2022 3:05 AM DRAFTER ENGINEERING COVID: Suspected 06/26/2022 06/26/2022 06/26/2022 5:59 PM CDT Coronavirus, droplet 06/26/2022 06/26/2022 023 3:06 AM CDT documented as of this encounter Care Teams Simulation Analyst Relationship Specialty Start Date End Date Zoila Gleason MD [address] [place] [address] PCP - General 09/29/16 Rupal Isabel MD [address] [place] [address] [address] [place] [address] Referring Physician Allergy and Immunology 01/11/19 Rekha Osborne MD [address] [place] [address] Medical Oncologist/Tank House Operator Hematology 05/11/20 Mayuri Lyn, RN 4590 [facility] [address] [place] [address] SHOP Outpatient Media Liaison Officer 12/04/20 01/04/21 Michelle Colin LCSW 4590 [facility] ([facility] Mailstop [phone] [place] [address] SHOP Outpatient Media Liaison Officer 10/19/21 11/16/21 documented as of this encounter
--- OUTSIDE RECORDS SUMMARY | 2024-07-22 14:58 | XMS_ITS | Encounter Summary ---
Author Organization [facility] Address [address] [place] [address] Phone Care Team Providers Care Health Physics Technician Name Role Phone Zoila Gleason MD Primary Care Provider Rupal Isabel MD Unavailable [phone] Rekha Osborne MD Unavailable [phone] Mayuri Lyn RN Unavailable [phone] Michelle ColinW Unavailable [phone] Encounter Details Date Type Department Care Team [...] on file Legal Sex Male 1:53 AM HYDRAULIC STRAINER OPERATOR Gender Identity Male 10/02/2023 12:44 PM [...] COVID: Recovered 11/29/2020 11/29/2020 03/29/2021 3:05 AM HYDRAULIC STRAINER OPERATOR COVID: Suspected 10/09/2021 10/09/2021 10/09/2021 9:37 AM CDT COVID: Suspected 03/06/2022 03/06/2022 03/06/2022 9:30 AM HYDRAULIC STRAINER OPERATOR RSV, droplet 03/06/2022 03/06/2022 03/13/2022 3:05 AM HYDRAULIC STRAINER OPERATOR COVID: Suspected 06/26/2022 06/26/2022 06/26/2022 5:59 PM CDT Coronavirus, droplet 06/26/2022 06/26/2022 023 3:06 AM CDT documented as of this encounter Care Teams Health Physics Technician Relationship Specialty Start Date End Date Zoila Gleason MD [address] [place] [address] PCP - General 09/29/16 Rupal Isabel MD [address] [place] [address] [address] [place] [address] Referring Physician Allergy and Immunology 01/11/19 Rekha Osborne MD [address] [place] [address] Medical Oncologist/Cut Press Operator Hematology 05/11/20 Mayuri Lyn, RN 4590 [facility] [address] [place], [place] [address] SHOP Outpatient Tapper Shank 12/04/20 01/04/21 Michelle Colin, DRAWING IN MACHINE TENDER HELPER 4590 [facility] ([facility] Mailstop [phone] [place] [address] SHOP Outpatient Tapper Shank 10/19/21 11/16/21 documented as of this encounter
--- OUTSIDE RECORDS SUMMARY | 2024-07-22 14:58 | XMS_ITS | Encounter Summary ---
Author Organization [facility] Address [address] [place] [address] Phone Care Team Providers Care Clerk Secretary Name Role Phone Zoila Gleason MD Primary Care Provider Rupal Isabel MD Unavailable [phone] Rekha Osborne MD Unavailable [phone] Mayuri Lyn RN Unavailable [phone] Michelle ColinW Unavailable [phone] Encounter Details Date Type Department Care Team [...] on file Legal Sex Male 1:53 AM SCHOOL ATHLETIC DIRECTOR Gender Identity Male 10/02/2023 12:44 PM [...] COVID: Recovered 11/29/2020 11/29/2020 03/29/2021 3:05 AM SCHOOL ATHLETIC DIRECTOR COVID: Suspected 10/09/2021 10/09/2021 10/09/2021 9:37 AM CDT COVID: Suspected 03/06/2022 03/06/2022 03/06/2022 9:30 AM SCHOOL ATHLETIC DIRECTOR RSV, droplet 03/06/2022 03/06/2022 03/13/2022 3:05 AM SCHOOL ATHLETIC DIRECTOR COVID: Suspected 06/26/2022 06/26/2022 06/26/2022 5:59 PM CDT Coronavirus, droplet 06/26/2022 06/26/2022 023 3:06 AM CDT documented as of this encounter Care Teams Clerk Secretary Relationship Specialty Start Date End Date Zoila Gleason MD [address] [address] PCP - General 09/29/16 Rupal Isabel MD [address] [place] [address] [address] [place] [address] Referring Physician Allergy and Immunology 01/11/19 Rekha Osborne MD [address] [place] [address] Medical Oncologist/Safe Deposit Clerk Hematology 05/11/20 Mayuri Lyn, RN 4590 [facility] [address] [place], [place] [id number] SHOP Outpatient Divorce Attorney 12/04/20 01/04/21 Michelle Colin, PROGRAM SCHEDULE CLERK 4590 [facility] ([facility] Mailstop [phone] [place] [address] SHOP Outpatient Divorce Attorney 10/19/21 11/16/21 documented as of this encounter
--- OUTSIDE RECORDS SUMMARY | 2024-07-22 14:58 | XMS_ITS | Encounter Summary ---
Author Organization [facility] Healthcare Address [address] [place] [address] Care Team Providers Care Shaker Plate Operator Name Role Phone Zoila Gleason MD Primary Care Provider [phone] Rupal Isabel MD Unavailable Rekha Osborne MD Unavailable Mayuri Lyn RN Unavailable Michelle Colin LCSW Unavailable Encounter Details Date Type Department Care Team (Late st Contact Info) Description 03/31/2020 Telephone [facility] [place] [address] Wendy Storm, MS Social History [...] on file Legal Sex Male 1:53 AM AERONAUTICS TEACHER Gender Identity Male 10/02/2023 12:44 PM CDT Sexual Orientation Don't know 11/15/2020 1: 06 PM CDT documented as of this encounter Plan of Treatment Not on file documented as of this encounter Visit Diagnoses Not on filedocumented in this encounter Additional Health Concerns Infection Onset Date Last Indicated Resolved Time COVID: Suspected 04/21/2020 04/21/2020 04/21/2020 11:24 AM AERONAUTICS TEACHER Respiratory Infection (MICKEY), contact + droplet Comment:Automatically added due to negative COVID-19 result. 04/21/2020 04/21/2020 05/05/2020 3:0 6 AM AERONAUTICS TEACHER COVID: Suspected 04/21/2020 04/21/2020 04/21/2020 6:48 PM AERONAUTICS TEACHER COVID: Suspected 09/25/2020 09/25/2020 09/25/2020 10:11 AM CDT Rhino/Enterovirus 09/25/2020 09/25/2020 10/02/2020 3:05 AM CDT COVID: Recovered 11/29/2020 11/29/2020 03/29/2021 3:05 AM AERONAUTICS TEACHER COVID: Suspected 10/09/2021 10/09/2021 10/09/2021 9:37 AM CDT COVID: Suspected 03/06/2022 03/06/2022 03/06/2022 9:30 AM AERONAUTICS TEACHER RSV, droplet 03/06/2022 03/06/2022 03/13/2022 3:05 AM AERONAUTICS TEACHER COVID: Suspected 06/26/2022 06/26/2022 06/26/2022 5:59 PM CDT Coronavirus, droplet 06/26/2022 06/26/2022 023 3:06 AM CDT documented as of this encounter Care Teams Shaker Plate Operator Relationship Specialty Start Date End Date Zoila Gleason MD [address] [place] [address] PCP - General 09/29/16 Rupal Isabel MD 10 [facility] [address] [place] [address] Referring Physician Allergy and Immunology 01/11/19 Rekha Osborne MD [address] [place] [address] Medical Oncologist/Cantilever Crane Operator Hematology 05/11/20 Mayuri Lyn, RN [address] [facility] [address] [place] [address] LAST Outpatient Project Production Engineer 12/04/20 01/04/21 Michelle Colin, COMPLIANCE ASSISTANT 4590 [facility] ([facility] Mailstop [id number] [place] [address] LAST Outpatient Project Production Engineer 10/19/21 11/16/21 documented as of this encounter
--- OUTSIDE RECORDS SUMMARY | 2024-07-22 14:58 | XMS_ITS | Referral Summary ---
Author Organization [facility] Address [address] [place] [address] Care Team Providers Care Quality Control Technician Name Role Phone Zoila Gleason MD Primary Care Provider [phone] Rupal Isabel MD Unavailable Rekha Osborne MD Unavailable Encounters Date Type Department Care Team Description 05/24/2024 Documentation [facility] Hematology [address] [place] [phone] Rose Marie Zapata RMA Prior Auth (Doptelet Approved through 05/23/25) 05/24/2024 Documentation [facility] Hematology [address] [place] [address] 6 [place] [phone] Saniya Alberts RN 05/13/2024 2:40 PM RN CLINICAL REVIEW Office Visit [facility] Endocrinology Metabolism and Lipid [address] [facility] Advanced Medicine 5th [place] [address] [place] [address] Jesenia Cottrell MD Adrenal insufficiency (Primary Dx); Arpita's syndrome (HCC); Low bone density for age; Hypogonadism in male; Vitamin D deficiency 04/25/2024 11:30 AM RN CLINICAL REVIEW Lab [facility] at [address] [place] [phone] AIHA (autoimmune hemolytic anemia) (HCC); Chronic ITP (idiopathic thrombocytopenia) (HCC) 04/25/2024 8:30 AM RN CLINICAL REVIEW Lab [facility] Oncology [address] [place] [address] [address] [place] [phone] 04/25/2024 9:00 AM RN CLINICAL REVIEW Office Visit [facility] Hematology 10 [facility] Medical Office Building 2 [address] [place] [address] Rekha Osborne MD AIJORDIN (autoimmune hemolytic anemia) (HCC) (Primary Dx); Chronic ITP (idiopathic thrombocytopenia) (HCC); CVID (common variable immunodeficiency) (HCC); High risk medication use from Last 3 Months Allergies Active Allergy [...] Never used. 07/07/19 21 Active Darius Rene [facility] spacer USE WITH INHALER DIRECTED 09/25/19 [...] 1 tablet (112 mcg total) by mouth digital printer before breakfast 03/10/20 23 Active Solu-CORTEF Act-O-Vial, [...] stooling. -As of 12/18/23 at 1300, per [facility] [phone] - E. Coli. -Repeat blood cultures NGTD -Received cefepime; changed to cefuroxime to complete a 7 day course. Source is suspected to be UTI -TTE neg for vegetations Leukocytosis 12/17/2023 Assessment & Plan (12/17/2023 8:50 PM CDT): CBC at [facility] 12/15 WBC 20.5 (81% neutrophils). Ddx includes [...] (12/01/2020): Added automatically from request for surgery [id number] Anemia 11/28/2020 Assessment & Plan (12/03/2020 11:37 AM CDT): Hgb 4.8 FRONT DESK MONITOR and s/p 4U pRBCs total. Hgb now [...] cytopenia, his initial presentation for thrombocytopenia to [facility] was in 2012 (17 yo) with [...] responded to steroid and rituximab last time ([id number]). During his last admission for UTI, he [...] bid - received stress dose steroids at [facility] - continue pred 5 BID - per [...] antibody (red top 2 ml) 2107 to [place] - consider ACTH stim test this admission [...] CVID (common variable immunodeficiency) ([facility] ) 04/16/2018 Assessment & Plan [...] AM CDT): Stable. Followed by endocrinology at [facility]. Currently on 150 mcg levothyroxine daily. [...] Avoid concomitant administration of Levothyroxine with patient's FRONT DESK MONITOR iron. Separate dosing by at least 4 [...] stopped 01/03) History of delirium 11/07/2019 01/04/20 20 Assessment & Plan (11/11/2019 7:35 AM CDT): [...] often do you attend chur ch or hindu services? Never 10/11/2021 Do you belong to any clubs o r organizations such as amish groups, unions, fraternal or athletic groups, or [...] a care home (including now)? No 10/11/2021 Personal Safety Answer Date Recorded Have you ever been in or are you currently in a harmful physical or emotional relationship or is someone making you feel afraid or unsafe? Patient unable to answer 12/18/2023 Sex and Gender Information Value Date Recorded Sex Assigned at Not on file Legal Sex Male 1:53 AM RN CLINICAL REVIEW Gender Identity Male 10/02/2023 12:44 PM CDT Sexual Orientation Don't know 11/15/2020 1: 06 PM CDT Last Filed Vital Signs Vital Sign Reading Time Taken Comments Blood Pressure 117/79 05/13/2024 2:31 PM RN CLINICAL REVIEW Pulse 90 05/13/2024 2:31 PM RN CLINICAL REVIEW Temperature 36.9 C (98.5 F) 05/13/2024 2:31 PM RN CLINICAL REVIEW Respiratory Rate 18 03/12/2024 2:48 PM RN CLINICAL REVIEW Oxygen Saturation 96% 03/12/2024 2:48 PM RN CLINICAL REVIEW Inhaled Oxygen Concentration - - Weight 60.8 kg (134 lb) 05/13/2024 2:31 PM RN CLINICAL REVIEW Height 160 cm (5' 3 ) 05/13/2024 2:31 PM RN CLINICAL REVIEW Body Mass Index 23.74 05/13/2024 2:31 PM RN CLINICAL REVIEW Plan of Treatment Not on file Procedures Procedure Name Priority Date/Time Associated Diagnosis Comments EGFR Routine 04/25/2024 10:00 AM RN CLINICAL REVIEW AIHA (autoimmune hemolytic anemia) (HCC) Chronic ITP (idiopathic thrombocytopenia) (HCC) DIFFERENTIAL AUTO Routine 04/25/2024 10: 00 AM RN CLINICAL REVIEW AIHA (autoimmune hemolytic anemia) (HCC) Chronic ITP (idiopathic thrombocytopenia) (HCC) CBC WITH AUTO DIFFERENTIAL Routine 04/25/2024 10:00 AM RN CLINICAL REVIEW AIHA (autoimmune hemolytic anemia) (HCC) Chronic ITP (idiopathic thrombocytopenia) (HCC) COMPREHENSIVE METABOLIC PANEL Routine 04/25/2024 10:00 AM RN CLINICAL REVIEW AIHA (autoimmune hemolytic anemia) (HCC) Chronic ITP (idiopathic thrombocytopenia) (HCC) RETICULOCYTES Routine 04/25/2024 10:00 AM RN CLINICAL REVIEW AIHA (autoimmune hemolytic anemia) (HCC) Chronic ITP (idiopathic thrombocytopenia) (HCC) HAPTOGLOBIN Routine 04/25/2024 10:00 AM RN CLINICAL REVIEW AIHA (autoimmune hemolytic anemia) (HCC) Chronic ITP (idiopathic thrombocytopenia) (HCC) LACTATE DEHYDROGENASE Routine 04/25/2024 10:00 AM RN CLINICAL REVIEW AIHA (autoimmune hemolytic anemia) (HCC) Chronic ITP (idiopathic thrombocytopenia) (HCC) DIRECT ANTIGLOBULIN TEST Routine 04/25/2024 10:00 AM RN CLINICAL REVIEW AIHA (autoimmune hemolytic anemia) (HCC) Chronic ITP (idiopathic thrombocytopenia) (HCC) HEPATITIS PANEL, ACUTE Routine 5:33 PM CDT from Last 3 Months or Most Recently Relevant to Health Maintenance Results * eGFR (04/25/2024 10:00 AM RN CLINICAL REVIEW) eGFR >90 >=60 mL/min/1. 73 m2 Comment: [...] was last reviewed 2021. Testing performed by: [facility], [address] [place] [address] Blood 04/25/2024 10:0 0 AM RN CLINICAL REVIEW 04/25/2024 10:16 AM RN CLINICAL REVIEW us Rekha Osborne MD LAB BLOOD ORDERABLES Final Result [facility]ULA [facility] [address] [facility]. Department of Laboratories [place], [place] [id number] * (ABNORMAL) Differential, auto (04/25/2024 10:00 AM RN CLINICAL REVIEW) Neutrophil abs 8.6(H) 1.5 - 6.5 K/cumm Comment:Testing performed by : [facility], [facility], [address] [place] [address] Imm gran abs 0.5(H) 0.0 - 0.1 K/cumm PAULA CAMPOS Comment:Testing performed by : [facility], [facility], [address] [place] [address] Lymphocyte abs 2.3 0.8 - 3.3 K/cumm PAULA CAMPOS Comment:Testing performed by : [facility], [facility], [address] [place] [address] Monocyte abs 1.4(H) 0.2 - 0.8 K/cumm CERNER [facility] Comment:Testing performed by : [facility], [facility], [address] [place] [address] Eosinophil abs 0.1 0.0 - 0.5 K/cumm CERNER [facility] Comment:Testing performed by : [facility], [facility], [address] [place] [address] Basophil abs 0.2(H) 0.0 - 0.1 K/cumm CERNER [facility] Comment:Testing performed by : [facility] 2, [address] [place] [address] Neutrophil pct 65.5 % CERNER [facility] Comment: Interpretive Data Percent cell count reference ranges are not reported, since discordance with absolute values may lead to misinterpretation of CBC data. Current Interpretive Data was last revised on 2017. Testing performed by: [facility], [facility], [address] [place] [address] Imm gran pct 4.0 % CERNER [facility] Comment: Interpretive Data Percent cell count reference ranges are not reported, since discordance with absolute values may lead to misinterpretation of CBC data. Current Interpretive Data was last revised on 2017. Testing performed by: [facility] 2, [address] [place] [address] Lymphocyte pct 17.2 % CERNER [facility] Comment: Interpretive Data Percent cell count reference ranges are not reported, since discordance with absolute values may lead to misinterpretation of CBC data. Current Interpretive Data was last revised on 2017. Testing performed by: [facility] 2, [address] [place] [address] Monocyte pct 10.9 % CERNER [facility] Comment: Interpretive Data Percent cell count reference ranges are not reported, since discordance with absolute values may lead to misinterpretation of CBC data. Current Interpretive Data was last revised on 2017. Testing performed by: [facility], [facility], [address] [place] [address] Eosinophil pct 0.7 % PAULA CAMPOS Comment: Interpretive Data Percent cell count reference ranges are not reported, since discordance with absolute values may lead to misinterpretation of CBC data. Current Interpretive Data was last revised on 2017. Testing performed by: [facility], [facility], [address] [place] [address] Basophil pct 1.7 % PAULA CAMPOS Comment: Interpretive Data Percent cell count reference ranges are not reported, since discordance with absolute values may lead to misinterpretation of CBC data. Current Interpretive Data was last revised on 2017. Testing performed by: [facility] 2, [address] [place] [address] Blood 04/25/2024 10:0 0 AM RN CLINICAL REVIEW 04/25/2024 10:05 AM RN CLINICAL REVIEW Rekha Osborne MD LAB BLOOD ORDERABLES Final Result [facility] [address] [facility] Department [place] [address] * (ABNORMAL) CBC with auto differential (04/25/2024 10:00 AM RN CLINICAL REVIEW) WBC 13.1(H) 3.8 - 9.9 K/cumm Comment:Testing performed by : [facility], [facility], [address] [place] [address] Hgb 15.1 13.0 - 17.5 g/dL PAULA CAMPOS Comment:Testing performed by : [facility] 2, [address] [place] [address] Hct 45.6 38.9 - 50.3 % PAULA CAMPOS Comment:Testing performed by : [facility], [facility], [address] [place] [address] Plt 201 150 - 400 K/cumm PAULA CAMPOS Comment:Testing performed by : [address] [place] [address] MPV 12.4(H) 9.1 - 12.3 fL CERARTHUR BJWCH Comment:Testing performed by : [place] [address], [address] [place] [address] RBC 4.78 4.30 - 5.80 M/cumm CERNER [facility] Comment:Testing performed by : [place] [address] [place] [address] MCV 95 81 - 96 fL CERARTHUR [facility] Comment:Testing performed by : [place] [address] [place] [address] MCH 31.6 27.1 - 33.3 pg CERARTHUR BJWCH Comment:Testing performed by : [place] [address] [place] [address] MCHC 33.1 32.3 - 35.7 g/dL CERARTHUR [facility] Comment:Testing performed by : [place] [address] [place] [address] RDW CV 16.8(H) 11.1 - 14.9 % CERARTHUR B[facility] Comment:Testing performed by : [place] [address] [place] [address] RDW SD 58.8(H) 35.7 - 48.1 fL CERARTHUR [facility] Comment:Testing performed by : [place] [address] [place] [address] NRBC abs 0.03(H) 0.00 - 0.01 K/cumm PAULA [facility] Comment:Testing performed by : [place] [address] [place] [address] Blood 04/25/2024 10:0 0 AM RN CLINICAL REVIEW 04/25/2024 10:05 AM RN CLINICAL REVIEW us Rekha Osborne MD LAB BLOOD ORDERABLES Final Result Performing Organization Address [facility] Co de Phone Number PAULA MERAZCH [address] [employer]. [facility] [address] [place] [address] * (ABNORMAL) Reticulocyte Count (04/25/2024 10:00 AM RN CLINICAL REVIEW) Retics, absolute 0.104(H) 0.020 - 0.087 M/cumm Comment:Testing performed by : [facility], [facility], [address] [place] [address] Retics 2.2 0.4 - 2.9 % [facility] Comment:Testing performed by : [facility], [facility], [address], [place] [address] Reticulocyte Hgb 32.9 30.5 - 38.0 pg [facility] Comment:Testing performed by : [facility], [facility], [address], [place] [address] Blood 04/25/2024 10:0 0 AM RN CLINICAL REVIEW 04/25/2024 10:05 AM RN CLINICAL REVIEW Rekha Osborne MD LAB BLOOD ORDERABLES Final Result Performing Organization Address [facility] de Phone Number PAULA MERAZCH [address] [place] [employer]. [facility] [address] [place] [address] * Direct antiglobulin test (04/25/2024 10:00 AM RN CLINICAL REVIEW) [facility] HUMZA Poly Interp Negative Comment:Testing performed by : [facility], [address], [place] [address] Blood 04/25/2024 10:0 0 AM RN CLINICAL REVIEW 04/25/2024 10:16 AM RN CLINICAL REVIEW Rekha Osborne MD LAB BLOOD BANK TEST ORDERAB LES Final Result Performing Organization Address City/[facility] Co de Phone Number PAULA MERAZCH [address] [employer]. [facility] [address] [place] [address] * Lactate dehydrogenase (LD) (04/25/2024 10:00 AM RN CLINICAL REVIEW) Lactate dehydrogenase (LDH) 139 100 - 250 Units/L Comment:Testing performed by : [facility], [address] [place] [address] Blood 04/25/2024 10:0 0 AM RN CLINICAL REVIEW 04/25/2024 10:16 AM RN CLINICAL REVIEW Rekha Osboren MD LAB BLOOD ORDERABLES Edited Result - Final [facility] BJW[facility] [address] Department [place] [address] * (ABNORMAL) Haptoglobin (04/25/2024 10:00 AM RN CLINICAL REVIEW) Haptoglobin 221(H) 30 - 200 mg/dL Comment:Testing performed by : [facility], [address] [place] [address]., [address] Blood 04/25/2024 10:0 0 AM RN CLINICAL REVIEW 04/25/2024 1:35 PM RN CLINICAL REVIEW Rekha Osborne MD LAB BLOOD ORDERABLES Final Result [facility] [address]. Department of [address] [place] [address] * Comprehensive metabolic panel (04/25/2024 10:00 AM RN CLINICAL REVIEW) Sodium 139 135 - 145 mmol/L Comment:Testing performed by : [facility], [address] [place] [address] Potassium, pl 4.1 3.3 - 4.9 mmol/L PAULA CAMPOS Comment:Testing performed by : [facility], [address] [place] [address] Chloride 103 97 - 110 mmol/L PAULA CAMPOS Comment:Testing performed by : [facility], [address], [place] [address] CO2 26 22 - 32 mmol/L CERNER BJW[facility] Comment:Testing performed by : [facility], [address], [place] [address] Anion gap 10 2 - 15 mmol/L CERNER [facility] Comment:Testing performed by : [facility], [address], [place] [address] BUN 15 6 - 25 mg/dL CERNER [facility] Comment:Testing performed by : [facility], [address], [place] [address] Creatinine 0.80 0.80 - 1.30 mg/dL CERNER [facility] Comment:Testing performed by : [facility], [address], [place] [address] Glucose 98 70 - 199 mg/dL CERNER [...] was last revised 2022. Testing performed by: [facility], [address], [place] [address] Calcium 9.3 8.5 - 10.3 mg/dL CERNER [facility] Comment:Testing performed by : [facility], [address], [place] [address] Bilirubin, total 0.2 0.1 - 1.2 mg/dL CERNER [facility] Comment:Testing performed by : [facility], [address], [place] [address] Protein, pl 6.8 6.5 - 8.5 g/dL CERNER [facility] Comment:Testing performed by : [facility], [address], [place] [address] Albumin 3.7 3.5 - 5.0 g/dL CERNER BJW Comment:Testing performed by : [facility], [address], [place] [address] Alk phos 122 40 - 130 Units/L [facility] Comment:Testing performed by : [facility], [address], [place] [address] ALT 29 7 - 55 Units/L CERNER BJW Comment:Testing performed by : [facility], [address], [place] [address] AST 23 10 - 50 Units/L [facility]ER [facility] Comment:Testing performed by : [facility], [address], [place] [address] Blood 04/25/2024 10:0 0 AM RN CLINICAL REVIEW 04/25/2024 10:16 AM RN CLINICAL REVIEW Rekha Osborne MD LAB BLOOD ORDERABLES Edited Result - Final PAULA [facility] [address] Department [place] [address] * Hepatitis panel, acute (11/28/2020 5:33 PM CDT) Hep A IgM Nonreactive Nonreactive [facility] Comment: Interpretive Data: If Hep A IgM Ab is reported as Equivocal, a new sample should be drawn in two weeks for testing. Current interpretive data was last revised on 19. Hep B core IgM Nonreactive Nonreactive [facility] Comment: Interpretive Data If HepB Core IgM Ab is reported as Equivocal, a new sample should be drawn in two weeks for testing. Current interpretive data was last revised on 19. Hep C Ab Nonreactive Nonreactive [facility] Comment:Antibodies to HCV no t detected. Does NOT exclude the possibility of recent exposure to HCV. HepBsAg Nonreactive Nonreactive [facility] Blood 11/28/2020 5:33 PM CDT 11/28/2020 5:53 PM CDT us [employer] Mccart[employer] COLLABORATING SUPERVISING PHYSICIAN LAB MICROBIO LOGY - GENERAL ORDERABLES Edited Result - Final PAULA AZAR [facility] Department [place] [address] from Last 3 Months or Most Recently Relevant to Health Maintenance Insurance [place] [facility] CHOICE PLUS [facility] HMO/PPO Address: [address] [address] [place] [address] [employer] OPEN ACCESS [place] [facility] CHOICE PLUS [facility] HMO/PPO Address: [address] [address] [place] [address] [employer] OPEN ACCESS [place] [employer] OPEN ACCESS [facility] CHOICE PLUS [facility] HMO/PPO Address: [address] [address] [place] [address] Advance Directives For more information, please contact: [phone] Documents on File Type Date Recorded Patient Swedger Expl anation Power of Senior Hris Analyst 10/21/2021 12:58 PM ADVANCE DIRECTIVE 10/14/2019 12:35 [...] 5:09 PM 01/02/2021 6:56 PM Care Teams Quality Control Technician Relationship Specialty Start Date End Date Zoila Gleason MD [address] [place] [address] PCP - General 09/29/16 Rupal Isabel MD 10 [facility] [address] [place] [address] Referring Physician Allergy and Immunology 01/11/19 Rekha Osborne MD [address] [place] [address] Medical Oncologist/University Teacher Hematology 05/11/20
--- OUTSIDE RECORDS SUMMARY | 2024-07-22 14:58 | XMS_ITS | Encounter Summary ---
Author Organization [facility] Address [address] [place] [address] Phone Care Team Providers Care Welder Explosion Name Role Phone Zoila Gleason MD Primary Care Provider Rupal Isabel MD Unavailable [phone] Rekha Osborne MD Unavailable [phone] Mayuri Lyn RN Unavailable [phone] Michelle ColinW Unavailable [phone] Encounter Details Date Type Department Care Team [...] on file Legal Sex Male 1:53 AM CRYSTAL FLAT GRINDER Gender Identity Male 10/02/2023 12:44 PM CDT [...] COVID: Suspected 04/21/2020 04/21/2020 04/21/2020 11:24 AM CRYSTAL FLAT GRINDER Respiratory Infection (MICKEY), contact + droplet Comment:Automatically added due to negative COVID-19 result. 04/21/2020 04/21/2020 05/05/2020 3:0 6 AM CRYSTAL FLAT GRINDER COVID: Suspected 04/21/2020 04/21/2020 04/21/2020 6:48 PM CRYSTAL FLAT GRINDER COVID: Suspected 09/25/2020 09/25/2020 09/25/2020 10:11 AM CDT Rhino/Enterovirus 09/25/2020 09/25/2020 10/02/2020 3:05 AM CDT COVID: Recovered 11/29/2020 11/29/2020 03/29/2021 3:05 AM CRYSTAL FLAT GRINDER COVID: Suspected 10/09/2021 10/09/2021 10/09/2021 9:37 AM CDT COVID: Suspected 03/06/2022 03/06/2022 03/06/2022 9:30 AM CRYSTAL FLAT GRINDER RSV, droplet 03/06/2022 03/06/2022 03/13/2022 3:05 AM CRYSTAL FLAT GRINDER COVID: Suspected 06/26/2022 06/26/2022 06/26/2022 5:59 PM CDT Coronavirus, droplet 06/26/2022 06/26/2022 023 3:06 AM CDT documented as of this encounter Care Teams Welder Explosion Relationship Specialty Start Date End Date Zoila Gleason MD [address] [place] [address] PCP - General 09/29/16 Rupal Isabel MD [address] [place] [address] [address] [place] [address] Referring Physician Allergy and Immunology 01/11/19 Rekha Osborne MD [address] [place] [address] Medical Oncologist/Electric Switch Tester Hematology 05/11/20 Mayuri Lyn, RN 45[address] [facility] [address] [place] [address] SHOP Outpatient Gun Sealing Machine Operator 12/04/20 01/04/21 Michelle Colin LCSW 4590 [facility] ([facility] Mailstop [phone] [place] [address] SHOP Outpatient Gun Sealing Machine Operator 10/19/21 11/16/21 documented as of this encounter
--- OUTSIDE RECORDS SUMMARY | 2024-07-22 14:58 | XMS_ITS | Encounter Summary ---
Author Organization [facility] [employer] [facility] Address [address] [place] [address] Phone Care Team Providers Care Atmospheric Scientist Name Role Phone Zoila Gleason MD Primary Care Provider Rupal Isabel MD Unavailable [phone] Rekha Osborne MD Unavailable [phone] Mayuri Lyn RN Unavailable [phone] Michelle ColinW Unavailable [phone] Encounter Details Date Type Department Care Team [...] on file Legal Sex Male 1:53 AM INTELLIGENCE CONSULTANT Gender Identity Male 10/02/2023 12:44 PM [...] COVID: Recovered 11/29/2020 11/29/2020 03/29/2021 3:05 AM INTELLIGENCE CONSULTANT COVID: Suspected 10/09/2021 10/09/2021 10/09/2021 9:37 AM CDT COVID: Suspected 03/06/2022 03/06/2022 03/06/2022 9:30 AM INTELLIGENCE CONSULTANT RSV, droplet 03/06/2022 03/06/2022 03/13/2022 3:05 AM INTELLIGENCE CONSULTANT COVID: Suspected 06/26/2022 06/26/2022 06/26/2022 5:59 PM CDT Coronavirus, droplet 06/26/2022 06/26/2022 023 3:06 AM CDT documented as of this encounter Care Teams Atmospheric Scientist Relationship Specialty Start Date End Date Zoila Gleason MD [address] [place] [place], [place] [address] PCP - General 09/29/16 Rupal Isabel MD 10 [facility] [address] [place] [address] Referring Physician Allergy and Immunology 01/11/19 Rekha Osborne MD [address] [place] [address] Medical Oncologist/Field Broomer Hematology 05/11/20 Mayuri Lyn, RN 4590 [facility] [address] [place] [address] SHOP Outpatient Agricultural Mechanic 12/04/20 01/04/21 Michelle Colin LCSW 4590 [facility] ([facility]) Mailstop [phone] [place] [address] SHOP Outpatient Agricultural Mechanic 10/19/21 11/16/21 documented as of this encounter
--- OUTSIDE RECORDS SUMMARY | 2024-07-22 14:59 | XMS_ITS | Encounter Summary ---
Author Organization [facility] Address [address] [place] [address] Phone Care Team Providers Care Chucking And Boring Machine Operator Name Role Phone Zoila Gleason MD Primary Care Provider Rupal Isabel MD Unavailable [phone] Rekha Osborne MD Unavailable [phone] Mayuri Lyn RN Unavailable [phone] Michelle ColinW Unavailable [phone] Encounter Details Date Type Department Care Team (Latest Contact Info) Description 07/03/2020 Orders Only [facility] Scanning, Provider Social [...] on file Legal Sex Male 1:53 AM SEO CONSULTANT Gender Identity Male 10/02/2023 12:44 PM [...] COVID: Recovered 11/29/2020 11/29/2020 03/29/2021 3:05 AM SEO CONSULTANT COVID: Suspected 10/09/2021 10/09/2021 10/09/2021 9:37 AM CDT COVID: Suspected 03/06/2022 03/06/2022 03/06/2022 9:30 AM SEO CONSULTANT RSV, droplet 03/06/2022 03/06/2022 03/13/2022 3:05 AM SEO CONSULTANT COVID: Suspected 06/26/2022 06/26/2022 06/26/2022 5:59 PM CDT Coronavirus, droplet 06/26/2022 06/26/2022 023 3:06 AM CDT documented as of this encounter Care Teams Chucking And Boring Machine Operator Relationship Specialty Start Date End Date Zoila Gleason MD [address] [address] PCP - General 09/29/16 Rupal Isabel MD [address] [place] [address] [address] [place] [address] Referring Physician Allergy and Immunology 01/11/19 Rekha Osborne MD [address] [place] [address] Medical Oncologist/Gum Dipper Hematology 05/11/20 Mayuri Lyn, RN 4590 [facility] [address] [place], [place] [address] SHOP Outpatient Pump Press Operator 12/04/20 01/04/21 Michelle Colin, UPPER LEATHER CUTTER 4590 [facility] ([facility] Mailstop [phone] [place] [address] SHOP Outpatient Pump Press Operator 10/19/21 11/16/21 documented as of this encounter
--- OUTSIDE RECORDS SUMMARY | 2024-07-22 14:59 | XMS_ITS | Encounter Summary ---
Author Organization [facility] Address [address] [place] [address] Phone Care Team Providers Care Management Engineer Name Role Phone Zoila Gleason MD Primary Care Provider Rupal Isabel MD Unavailable [phone] Rekha Osborne MD Unavailable [phone] Mayuri Lyn RN Unavailable [phone] Michelle ColinW Unavailable [phone] Encounter Details Date Type Department Care Team [...] on file Legal Sex Male 1:53 AM SOCCER PLAYER Gender Identity Male 10/02/2023 12:44 PM CDT [...] COVID: Recovered 11/29/2020 11/29/2020 03/29/2021 3:05 AM SOCCER PLAYER COVID: Suspected 10/09/2021 10/09/2021 10/09/2021 9:37 AM CDT COVID: Suspected 03/06/2022 03/06/2022 03/06/2022 9:30 AM SOCCER PLAYER RSV, droplet 03/06/2022 03/06/2022 03/13/2022 3:05 AM SOCCER PLAYER COVID: Suspected 06/26/2022 06/26/2022 06/26/2022 5:59 PM CDT Coronavirus, droplet 06/26/2022 06/26/2022 023 3:06 AM CDT documented as of this encounter Care Teams Management Engineer Relationship Specialty Start Date End Date Zoila Gleason MD [address] [place] [address] PCP - General 09/29/16 Rupal Isabel MD [address] [place] [address] [address] [place] [address] Referring Physician Allergy and Immunology 01/11/19 Rekha Osborne MD [address] [place] [address] Medical Oncologist/Diesel Locomotive Engineer Hematology 05/11/20 Mayuri Lyn, RN 4590 [facility] [address] [place], [place] [address] SHOP Outpatient Hematology Technologist 12/04/20 01/04/21 Michelle Colin, PLANT OPERATOR HELPER 4590 [facility] ([facility]) Mailstop [phone] [place] [address] SHOP Outpatient Hematology Technologist 10/19/21 11/16/21 documented as of this encounter
--- OUTSIDE RECORDS SUMMARY | 2024-07-22 14:59 | XMS_ITS | Encounter Summary ---
Author Organization [facility] [employer] [facility] Address [address] [place] [address] Phone Care Team Providers Care Agricultural Adviser Name Role Phone Zoila Gleason MD Primary Care Provider [phone] Rupal Isabel MD Unavailable [phone] Rekha Osborne MD Unavailable [phone] Mayuri Lyn RN Unavailable [phone] Michelle ColinW Unavailable [phone] Encounter Details Date Type Department Care Team [...] than three times a week 12/10/2020 Attends [employer] Not on file 12/10 Active Member [...] file Legal Sex Male 1:53 AM INFORMATION SYSTEMS ADMINISTRATOR Gender Identity Male 10/02/2023 12:44 PM [...] Recovered 11/29/2020 11/29/2020 03/29/2021 3:05 AM INFORMATION SYSTEMS ADMINISTRATOR COVID: Suspected 10/09/2021 10/09/2021 10/09/2021 9:37 AM CDT COVID: Suspected 03/06/2022 03/06/2022 03/06/2022 9:30 AM INFORMATION SYSTEMS ADMINISTRATOR RSV, droplet 03/06/2022 03/06/2022 03/13/2022 3:05 AM INFORMATION SYSTEMS ADMINISTRATOR COVID: Suspected 06/26/2022 06/26/2022 06/26/2022 5:59 PM CDT Coronavirus, droplet 06/26/2022 06/26/2022 023 3:06 AM CDT documented as of this encounter Care Teams Agricultural Adviser Relationship Specialty Start Date End Date Zoila Gleason MD [address] [place] [address] PCP - General 09/29/16 Rupal Isabel MD 10 [facility] [address] [place] [address] Referring Physician Allergy and Immunology 01/11/19 Rekha Osborne MD [address] [place] [address] Medical Oncologist/Continuous Weld Pipe Mill Supervisor Hematology 05/11/20 Mayuri Lyn, RN 4590 [facility] [address] [place] [address] SHOP Outpatient File Conversion Operator 12/04/20 01/04/21 Michelle Colin LCSW 4590 [facility] ([facility] Mailstop [phone] [place] [address] SHOP Outpatient File Conversion Operator 10/19/21 11/16/21 documented as of this encounter
--- OUTSIDE RECORDS SUMMARY | 2024-07-22 14:59 | XMS_ITS | Encounter Summary ---
Author Organization [facility] Address [address] [place] [address] Phone Care Team Providers Care Gastroenterology Nurse Name Role Phone Zoila Gleason MD Primary Care Provider Rupal Isabel MD Unavailable [phone] Rekha Osborne MD Unavailable [phone] Mayuri Lyn RN Unavailable [phone] Michelle ColinW Unavailable [phone] Encounter Details Date Type Department Care Team [...] on file Legal Sex Male 1:53 AM ORNAMENTAL IRONWORKER HELPER Gender Identity Male 10/02/2023 12:44 PM [...] COVID: Recovered 11/29/2020 11/29/2020 03/29/2021 3:05 AM ORNAMENTAL IRONWORKER HELPER COVID: Suspected 10/09/2021 10/09/2021 10/09/2021 9:37 AM CDT COVID: Suspected 03/06/2022 03/06/2022 03/06/2022 9:30 AM ORNAMENTAL IRONWORKER HELPER RSV, droplet 03/06/2022 03/06/2022 03/13/2022 3:05 AM ORNAMENTAL IRONWORKER HELPER COVID: Suspected 06/26/2022 06/26/2022 06/26/2022 5:59 PM CDT Coronavirus, droplet 06/26/2022 06/26/2022 023 3:06 AM CDT documented as of this encounter Care Teams Gastroenterology Nurse Relationship Specialty Start Date End Date Zoila Gleason MD [address] [address] PCP - General 09/29/16 Rupal Isabel MD [address] [place] [address] [address] [place] [address] Referring Physician Allergy and Immunology 01/11/19 Rekha Osborne MD [address] [place] [address] Medical Oncologist/Sand Filler Hematology 05/11/20 Mayuri Lyn, RN 4590 [facility] [address] [place], [place] [address] SHOP Outpatient Veterans' Counselor 12/04/20 01/04/21 Michelle Colin, APPLICATION PACKAGING CONSULTANT 4590 [facility] ([facility]) Mailstop [phone] [place] [address] SHOP Outpatient Veterans' Counselor 10/19/21 11/16/21 documented as of this encounter
--- OUTSIDE RECORDS SUMMARY | 2024-07-22 14:59 | XMS_ITS | Encounter Summary ---
Author Organization [facility] Address [address] [place] [address] Phone Care Team Providers Care Food Processing Plant Manager Name Role Phone Zoila Gleason MD Primary Care Provider Rupal Isabel MD Unavailable [phone] Rekha Osborne MD Unavailable [phone] Mayuri Lyn RN Unavailable [phone] Michelle ColinW Unavailable [phone] Encounter Details Date Type Department Care Team [...] on file Legal Sex Male 1:53 AM DATA MANAGEMENT ANALYST Gender Identity Male 10/02/2023 12:44 PM [...] COVID: Recovered 11/29/2020 11/29/2020 03/29/2021 3:05 AM DATA MANAGEMENT ANALYST COVID: Suspected 10/09/2021 10/09/2021 10/09/2021 9:37 AM CDT COVID: Suspected 03/06/2022 03/06/2022 03/06/2022 9:30 AM DATA MANAGEMENT ANALYST RSV, droplet 03/06/2022 03/06/2022 03/13/2022 3:05 AM DATA MANAGEMENT ANALYST COVID: Suspected 06/26/2022 06/26/2022 06/26/2022 5:59 PM CDT Coronavirus, droplet 06/26/2022 06/26/2022 023 3:06 AM CDT documented as of this encounter Care Teams Food Processing Plant Manager Relationship Specialty Start Date End Date Zoila Gleason MD [address] [place] [address] PCP - General 09/29/16 Rupal Isabel MD [address] [place] [address] [address] [place] [address] Referring Physician Allergy and Immunology 01/11/19 Rekha Osborne MD [address] [place], [place] [address] Medical Oncologist/Electrical Design Engineer Hematology 05/11/20 Mayuri Lyn, RN 4590 [facility] [address] [place], [place] [address] LAST Outpatient Vessel Ordinary Seaman 12/04/20 01/04/21 Michelle Colin, ROSALIE 4590 [facility] ([facility] Mailstop [phone] [place] [address] SHOP Outpatient Vessel Ordinary Seaman 10/19/21 11/16/21 documented as of this encounter
--- OUTSIDE RECORDS SUMMARY | 2024-07-22 14:59 | XMS_ITS | Encounter Summary ---
Author Organization [facility] Address [address] [place] [address] Phone Care Team Providers Care Blind Teacher Name Role Phone Zoila Gleason MD Primary Care Provider Rupal Isabel MD Unavailable [phone] Rekha Osborne MD Unavailable [phone] Mayuri Lyn RN Unavailable [phone] Michelle ColinW Unavailable [phone] Encounter Details Date Type Department Care Team [...] on file Legal Sex Male 1:53 AM STATE SUPERINTENDENT OF SCHOOLS Gender Identity Male 10/02/2023 12:44 PM CDT [...] COVID: Suspected 04/21/2020 04/21/2020 04/21/2020 11:24 AM STATE SUPERINTENDENT OF SCHOOLS Respiratory Infection (MICKEY), contact + droplet Comment:Automatically added due to negative COVID-19 result. 04/21/2020 04/21/2020 05/05/2020 3:0 6 AM STATE SUPERINTENDENT OF SCHOOLS COVID: Suspected 04/21/2020 04/21/2020 04/21/2020 6:48 PM STATE SUPERINTENDENT OF SCHOOLS COVID: Suspected 09/25/2020 09/25/2020 09/25/2020 10:11 AM CDT Rhino/Enterovirus 09/25/2020 09/25/2020 10/02/2020 3:05 AM CDT COVID: Recovered 11/29/2020 11/29/2020 03/29/2021 3:05 AM STATE SUPERINTENDENT OF SCHOOLS COVID: Suspected 10/09/2021 10/09/2021 10/09/2021 9:37 AM CDT COVID: Suspected 03/06/2022 03/06/2022 03/06/2022 9:30 AM STATE SUPERINTENDENT OF SCHOOLS RSV, droplet 03/06/2022 03/06/2022 03/13/2022 3:05 AM STATE SUPERINTENDENT OF SCHOOLS COVID: Suspected 06/26/2022 06/26/2022 06/26/2022 5:59 PM CDT Coronavirus, droplet 06/26/2022 06/26/2022 023 3:06 AM CDT documented as of this encounter Care Teams Blind Teacher Relationship Specialty Start Date End Date Zoila Gleason MD [address] [place] [address] PCP - General 09/29/16 Rupal Isabel MD [address] [place] [address] [facility] [address] [place] [address] Referring Physician Allergy and Immunology 01/11/19 Rekha Osborne MD [address] [place] [address] Medical Oncologist/Educational Adviser Hematology 05/11/20 Mayuri Lyn, RN 4590 [facility] [address] [place] [address] SHOP Outpatient Senior Supplier Quality Engineer 12/04/20 01/04/21 Michelle Colin LCSW 4590 [facility] ([facility] [place]) Mailstop [phone] [place] [address] SHOP Outpatient Senior Supplier Quality Engineer 10/19/21 11/16/21 documented as of this encounter
[2024-07-23 09:58] LABS: Haptoglobin 204 mg/dL (43-212)
== END 2024-07-22 13:20 | disposition home or self-care (01) ==
LOC: ANHGOSHLAB 13:20
PROVIDERS: PCP Pediatrics; Visit Provider Internal Medicine
DX: D69.6 Thrombocytopenia, unspecified (principal); D59.10 Autoimmune hemolytic anemia, unspecified; Z79.890 Hormone replacement therapy; E29.1 Testicular hypofunction; D69.41 Evans syndrome; D50.9 Iron deficiency anemia, unspecified; D61.818 Other pancytopenia; D83.9 Common variable immunodeficiency, unspecified
CPT/HCPCS: 36415; 80076; 83010; 84402; 84403; 85025

== ENCOUNTER 2024-08-12 14:20 | Outpatient (CLI) | payer BC, MEDICAID, SELFPAY ==
--- OUTSIDE RECORDS SUMMARY | 2024-08-12 14:27 | XMS_ITS | Clinical Summary ---
Author Organization [employer] [facility] Address [address] [place] [address] Care Team Providers Care Supervisor Receiving And Processing Name Role Phone Unavailable Primary Care Provider [...] WEEKS. 24 Packet 1 03/02/2023 2:48 PM WEB PRESS OPERATOR ASSISTANT 3 Active clindamycin phosphate (CLEOCIN T) 1 [...] procedure 4 Capsule 1 03/02/2023 2:45 PM WEB PRESS OPERATOR ASSISTANT 3 Active docusate sodium (COLACE) 100 mg capsule Take one capsule (100 mg) orally twice a day 60 Capsule 3 03/14/2023 12:03 PM WEB PRESS OPERATOR ASSISTANT 3 Active levothyroxine 112 mcg tablet Take one tablet (112 mcg) orally every morning 90 Tablet 2 03/14/2023 12:03 PM WEB PRESS OPERATOR ASSISTANT 3 Active pantoprazole (PROTONIX) 40 mg Tablet, Delayed Release (E.C.) Take one tablet (40 mg) orally daily 60 Tablet 03/14/2023 12:03 PM WEB PRESS OPERATOR ASSISTANT 3 Active sertraline (ZOLOFT) 100 mg tablet Take one tablet (50 mg) orally daily 90 Tablet 3 3 Active hydrocortisone sod succ, PF, (Solu-CORTEF Act-O-Vial, PF,) 100 mg/2 mL Recon Soln Inject 2 mL (100 mg) by intramuscular injection 1 time daily as needed for adrenal crisis. 10 Each 2 04/17/2023 6:40 PM WEB PRESS OPERATOR ASSISTANT 4 Active apixaban (Eliquis) 5 mg tablet Take 1 Tablet (5 mg) by mouth 2 times daily. 30 Tablet 1 04/08/2023 4:00 PM WEB PRESS OPERATOR ASSISTANT 4 Active nirmatrelvir-r itonavir (Paxlovid) 300(150mg x 2)-100 mg oral pack TAKE 2 TABLETS OF NIRMATRELVIR AND 1 TABLET OF RITONAVIR BY MOUTH TWICE DAILY FOR 5 DAYS 30 Each 4 Active predniSONE (DELTASONE) 1 mg tablet TAKE 1-4 TABLETS BY MOUTH DAILY DIRECTED BY PHYSICIAN. TAKE WITH 5 MG DAILY. 120 Tablet 2 04/25/2023 2:35 PM WEB PRESS OPERATOR ASSISTANT 4 Active nirmatrelvir-r itonavir (Paxlovid) 300(150mg x [...] failure. 90 Tablet 2 04/25/2023 2:35 PM WEB PRESS OPERATOR ASSISTANT 4 Active Immunizations Immunization Administration Dates Next [...]
--- OUTSIDE RECORDS SUMMARY | 2024-08-12 14:27 | XMS_ITS | Encounter Summary ---
Author Organization [facility] Address [address] [place] [address] Phone Care Team Providers Care Business Assistant Name Role Phone Zoila Gleason MD Primary Care Provider [phone] Rupal Isabel MD Unavailable Rekha Osborne MD Unavailable Encounter Details Date Type Department Care Team (Late st Contact Info) Description 08/12/2024 1:00 PM CDT Telemedicine [facility] Allergy and Immunology [address] [facility] [address] [place] [address] Rupal Isabel MD 10 [facility] [address] [place] [address] CVID (common variable immunodeficiency) (HCC) (Primary Dx); Jose Roberto's syndrome (HCC); Flexural atopic dermatitis Social History Tobacco Use Types Packs/Day Years Used Date Smoking Tobacco: Never Passive Smoke Exposure: Never Smokeless Tobacco: Never Alcohol Use Standard [...] often do you attend chur ch or latter-day services? Never 10/11/2021 Do you belong to any clubs o r organizations such as sikh groups, unions, fraternal or athletic groups, or [...] place to sleep or slept in a correction (including now)? No 10/11/2021 Personal Safety Answer Date Recorded Have you ever been in or are you currently in a harmful physical or emotional relationship or is someone making you feel afraid or unsafe? 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 Other atopic dermatitis and related conditions documented in this encounter Discontinued Medications Medication Sig Discontinue Reason Start Date End Da te dexAMETHasone (DECADRON) 4 mg tablet TAKE 10 TABLETS (40MG) BY MOUTH DAILY NEEDED FOR ITP FOR 4 DAYS Patient Reported 04/01/2024 08/12/2024 valACYclovir (VALTREX) 1 gram tabletIndications:shingl es Take 1 tablet (1,000 mg total) by mouth as needed Patient Reported 08/31/2021 08/12/2024 mirtazapine (REMERON) 15 mg tablet Patient Reported 03/02/2024 08/12/2024 clonazePAM (KlonoPIN) 0.5 mg tablet Patient Reported 04/04/2024 08/12/2024 Asmanex HFA 200 mcg/actuation inhaler Inhale 2 puffs 2 (two) times a day Patient Reported 02/17/2024 08/12/2024 documented as of this encounter Historical Medications * This list may reflect changes made after this encounter. Breztri Aerosphere 160-9-4.8 mcg/actuation inhaler Inhale 2 puffs 2 (two) times a day 08/12/2024 added in this encounter Care Teams Business Assistant Relationship Specialty Start Date End Date Zoila Gleason MD [address] [place] [address] PCP - General 09/29/16 Rupal Isabel MD [address] [place] [address] [address] [place] [address] Referring Physician Allergy and Immunology 01/11/19 Rekha Osborne MD [address] [place] [address] Medical Oncologist/Software Client Architect Hematology 05/11/20 documented as of this encounter
--- OUTSIDE RECORDS SUMMARY | 2024-08-12 14:27 | XMS_ITS | Encounter Summary ---
Author Organization [facility] Address [address] [place] [address] Phone Care Team Providers Care Cotton Washer Name Role Phone Zoila Gleason MD Primary Care Provider [phone] Rupal Isabel MD Unavailable [phone] Rekha Osborne MD Unavailable [phone] Encounter Details Date Type Department Care Team [...] often do you attend chur ch or methodist services? Never 10/11/2021 Do you belong to any clubs o r organizations such as confucianist groups, unions, fraternal or athletic groups, or [...] in a prison (including now)? No 10/11/2021 Sex and Gender Information Value Date Recorded Sex Assigned at Not on file Legal Sex Male 1:53 AM THERMOMETER TESTER Gender Identity Male 10/02/2023 12:44 PM CDT [...] documented as of this encounter Care Teams Cotton Washer Relationship Specialty Start Date End Date Zoila Gleason MD [address] [place] [address] PCP - General 09/29/16 Rupal Isabel MD 10 [facility] 200 [place] [address] Referring Physician Allergy and Immunology 01/11/19 Rekha Osborne MD [address] [place] [address] Medical Oncologist/Back End Engineer Hematology 05/11/20 documented as of this encounter
--- OUTSIDE RECORDS SUMMARY | 2024-08-12 14:28 | XMS_ITS | Encounter Summary ---
Author Organization [facility] Address [address] [place] [address] Phone Care Team Providers Care Reference Library Assistant Name Role Phone Zoila Gleason MD Primary Care Provider Rupal Isabel MD Unavailable [phone] Rekha Osborne MD Unavailable [phone] Mayuri Lyn RN Unavailable Michelle Colin SURVEYOR ROD HELPER Unavailable [phone] Encounter Details Date Type Department Care Team (Latest Contact Info) Description 01/04/2021 Orders Only [facility] Scanning, Provider [...] than three times a week 12/10/2020 Attends Confucianist Services Not on file 12/10 Active Member [...] place to sleep or slept in a intermediate (including now)? No 12/10/2020 Sex and Gender Information Value Date Recorded Sex Assigned at Not on file Legal Sex Male 1:53 AM KEEPER HEAD Gender Identity Male 10/02/2023 12:44 PM CDT [...] COVID: Recovered 11/29/2020 11/29/2020 03/29/2021 3:05 AM KEEPER HEAD COVID: Suspected 10/09/2021 10/09/2021 10/09/2021 9:37 AM CDT COVID: Suspected 03/06/2022 03/06/2022 03/06/2022 9:30 AM KEEPER HEAD RSV, droplet 03/06/2022 03/06/2022 03/13/2022 3:05 AM KEEPER HEAD COVID: Suspected 06/26/2022 06/26/2022 06/26/2022 5:59 PM CDT Coronavirus, droplet 06/26/2022 06/26/2022 023 3:06 AM CDT documented as of this encounter Care Teams Reference Library Assistant Relationship Specialty Start Date End Date Zoila Gleason MD [address] [place] [address] PCP - General 09/29/16 Rupal Isabel MD 10 [facility] [address] [place] [address] Referring Physician Allergy and Immunology 01/11/19 Rekha Osborne MD [address] [place] [address] Medical Oncologist/Occupational Health Physiotherapist Hematology 05/11/20 Mayuri Lyn, RN 45[address] [facility] [address] [place] [address] SHOP Outpatient Log Feeder 12/04/20 01/04/21 Michelle Colin LCSW 4590 [facility] ([facility] [place] Mailstop [phone] [place] [address] SHOP Outpatient Log Feeder 10/19/21 11/16/21 documented as of this encounter
--- OUTSIDE RECORDS SUMMARY | 2024-08-12 14:28 | XMS_ITS | Encounter Summary ---
Author Organization [facility] Address [address] [place] [address] Phone Care Team Providers Care Trapper Bird Name Role Phone Zoila Gleason MD Primary Care Provider Rupal Isabel MD Unavailable [phone] Rekha Osborne MD Unavailable [phone] Michelle Colin [facility] Unavailable [phone] Encounter Details Date Type Department Care Team [...] than three times a week 12/10/2020 Attends Shinto Services Not on file 12/10 Active Member [...] on file Legal Sex Male 1:53 AM PHOTOGRAPHER NEWS Gender Identity Male 10/02/2023 12:44 PM CDT [...] COVID: Suspected 03/06/2022 03/06/2022 03/06/2022 9:30 AM PHOTOGRAPHER NEWS RSV, droplet 03/06/2022 03/06/2022 03/13/2022 3:05 AM PHOTOGRAPHER NEWS COVID: Suspected 06/26/2022 06/26/2022 06/26/2022 5:59 PM CDT Coronavirus, droplet 06/26/2022 06/26/2022 023 3:06 AM CDT documented as of this encounter Care Teams Trapper Bird Relationship Specialty Start Date End Date Zoila Gleason MD [address] [place] [address] PCP - General 09/29/16 Rupal Isabel MD 10 [facility] [address] [place] [address] Referring Physician Allergy and Immunology 01/11/19 Rekha Osborne MD [address] [place], [place] [id number] Medical Oncologist/Shorthand Reporter Hematology 05/11/20 Michelle Colin LCSW 4590 [facility] ([facility] [place] [place] Mailstop [phone] [place] [address] SHOP Outpatient Payroll Machine Operator 10/19/21 11/16/21 documented as of this encounter
--- OUTSIDE RECORDS SUMMARY | 2024-08-12 14:28 | XMS_ITS | Encounter Summary ---
Author Organization [facility] Address [address] [place] [address] Phone Care Team Providers Care Repair Armature Winder Helper Name Role Phone Zoila Gleason MD Primary Care Provider Rupal Isabel MD Unavailable [phone] Rekha Osborne MD Unavailable [phone] Mayuri Lyn RN Unavailable [phone] Michelle Colin GAS TREATER Unavailable [phone] Encounter Details Date Type Department Care Team [...] file Legal Sex Male 1:53 AM DIRECTOR EXPERIMENTAL MEDICINE Gender Identity Male 10/02/2023 12:44 PM CDT [...] Recovered 11/29/2020 11/29/2020 03/29/2021 3:05 AM DIRECTOR EXPERIMENTAL MEDICINE COVID: Suspected 10/09/2021 10/09/2021 10/09/2021 9:37 AM CDT COVID: Suspected 03/06/2022 03/06/2022 03/06/2022 9:30 AM DIRECTOR EXPERIMENTAL MEDICINE RSV, droplet 03/06/2022 03/06/2022 03/13/2022 3:05 AM DIRECTOR EXPERIMENTAL MEDICINE COVID: Suspected 06/26/2022 06/26/2022 06/26/2022 5:59 PM CDT Coronavirus, droplet 06/26/2022 06/26/2022 023 3:06 AM CDT documented as of this encounter Care Teams Repair Armature Winder Helper Relationship Specialty Start Date End Date Zoila Gleason MD [address] [place] [address] PCP - General 09/29/16 Rupal Isabel MD [address] [place] [address] [address] [place] [address] Referring Physician Allergy and Immunology 01/11/19 Rekha Osborne MD [address] [place] [address] Medical Oncologist/Associate Producer Hematology 05/11/20 Mayuri Lyn, RN 4590 [facility] [address] [place] [address] SHOP Outpatient Magnetic Prospecting Supervisor 12/04/20 01/04/21 Michelle Colin LCSW 4590 [facility] ([facility] Mailstop [phone] [place] [address] SHOP Outpatient Magnetic Prospecting Supervisor 10/19/21 11/16/21 documented as of this encounter
--- OUTSIDE RECORDS SUMMARY | 2024-08-12 14:28 | XMS_ITS | Encounter Summary ---
Author Organization [facility] Address [address] [place] [address] Phone Care Team Providers Care It Software Engineer Name Role Phone Zoila Gleason MD Primary Care Provider Rupal Isabel MD Unavailable Rekha Osborne MD Unavailable [phone] Mayuri Lyn RN Unavailable Michelle Colin COLLECTIONS ATTORNEY Unavailable Encounter Details Date Type Department Care [...] on file Legal Sex Male 1:53 AM SOLAR ELECTRIC/PHOTOVOLTAIC INSTALLER Gender Identity Male 10/02/2023 12:44 PM [...] COVID: Recovered 11/29/2020 11/29/2020 03/29/2021 3:05 AM SOLAR ELECTRIC/PHOTOVOLTAIC INSTALLER COVID: Suspected 10/09/2021 10/09/2021 10/09/2021 9:37 AM CDT COVID: Suspected 03/06/2022 03/06/2022 03/06/2022 9:30 AM SOLAR ELECTRIC/PHOTOVOLTAIC INSTALLER RSV, droplet 03/06/2022 03/06/2022 03/13/2022 3:05 AM SOLAR ELECTRIC/PHOTOVOLTAIC INSTALLER COVID: Suspected 06/26/2022 06/26/2022 06/26/2022 5:59 PM CDT Coronavirus, droplet 06/26/2022 06/26/2022 023 3:06 AM CDT documented as of this encounter Care Teams It Software Engineer Relationship Specialty Start Date End Date Zoila Gleason MD [address] [place] [address] PCP - General 09/29/16 Rupal Isabel MD [address] [place] [address] [address] [place] [address] Referring Physician Allergy and Immunology 01/11/19 Rekha Osborne MD [address] [place] [address] Medical Oncologist/Golf Instructor Hematology 05/11/20 Mayuri Lyn, RN 4590 [facility] [address] [place] [address] SHOP Outpatient Formstone Fitter 12/04/20 01/04/21 Michelle Colin LCSW 4590 [facility] ([facility] Mailstop [phone] [place] [address] SHOP Outpatient Formstone Fitter 10/19/21 11/16/21 documented as of this encounter
--- OUTSIDE RECORDS SUMMARY | 2024-08-12 14:28 | XMS_ITS | Encounter Summary ---
Author Organization [facility] Address [address] [place] [address] Phone Care Team Providers Care Research Biostatistician Name Role Phone Zoila Gleason MD Primary Care Provider Rupal Isabel MD Unavailable [phone] Rekha Osborne MD Unavailable [phone] Mayuri Lyn RN Unavailable Michelle Colin PAYROLL ACCOUNTING CLERK Unavailable Encounter Details Date Type Department Care [...] on file Legal Sex Male 1:53 AM MARINE PIPE WELDER Gender Identity Male 10/02/2023 12:44 PM CDT [...] COVID: Suspected 04/21/2020 04/21/2020 04/21/2020 11:24 AM MARINE PIPE WELDER Respiratory Infection (MICKEY), contact + droplet Comment:Automatically added due to negative COVID-19 result. 04/21/2020 04/21/2020 05/05/2020 3:0 6 AM MARINE PIPE WELDER COVID: Suspected 04/21/2020 04/21/2020 04/21/2020 6:48 PM MARINE PIPE WELDER COVID: Suspected 09/25/2020 09/25/2020 09/25/2020 10:11 AM CDT Rhino/Enterovirus 09/25/2020 09/25/2020 10/02/2020 3:05 AM CDT COVID: Recovered 11/29/2020 11/29/2020 03/29/2021 3:05 AM MARINE PIPE WELDER COVID: Suspected 10/09/2021 10/09/2021 10/09/2021 9:37 AM CDT COVID: Suspected 03/06/2022 03/06/2022 03/06/2022 9:30 AM MARINE PIPE WELDER RSV, droplet 03/06/2022 03/06/2022 03/13/2022 3:05 AM MARINE PIPE WELDER COVID: Suspected 06/26/2022 06/26/2022 06/26/2022 5:59 PM CDT Coronavirus, droplet 06/26/2022 06/26/2022 023 3:06 AM CDT documented as of this encounter Care Teams Research Biostatistician Relationship Specialty Start Date End Date Zoila Gleason MD [address] [place] [address] PCP - General 09/29/16 Rupal Isabel MD [address] [place] [address] [address] Referring Physician Allergy and Immunology 01/11/19 Rekha Osborne MD [address] [place] [address] Medical Oncologist/It Solutions Architect Hematology 05/11/20 Mayuri Lyn, RN 4590 [facility] [address] [place] [address] SHOP Outpatient Cashier Office 12/04/20 01/04/21 Michelle Colin [facility] 4690 [facility] ([facility] Mailstop [phone] [place] [address] SHOP Outpatient Cashier Office 10/19/21 11/16/21 documented as of this encounter
--- OUTSIDE RECORDS SUMMARY | 2024-08-12 14:28 | XMS_ITS | Encounter Summary ---
Author Organization [facility] Address [address] [place] [address] Phone Care Team Providers Care Health Aid Name Role Phone Zoila Gleason MD Primary Care Provider Rupal Isabel MD Unavailable Rekha Osborne MD Unavailable [phone] Mayuri Lyn RN Unavailable Michelle Colin SERVICE PROVIDER Unavailable [phone] Encounter Details Date Type Department Care Team [...] file Legal Sex Male 1:53 AM HOME SECURITY ALARM INSTALLER Gender Identity Male 10/02/2023 12:44 PM [...] Suspected 04/21/2020 04/21/2020 04/21/2020 11:24 AM HOME SECURITY ALARM INSTALLER Respiratory Infection (MICKEY), contact + droplet Comment:Automatically added due to negative COVID-19 result. 04/21/2020 04/21/2020 05/05/2020 3:0 6 AM HOME SECURITY ALARM INSTALLER COVID: Suspected 04/21/2020 04/21/2020 04/21/2020 6:48 PM HOME SECURITY ALARM INSTALLER COVID: Suspected 09/25/2020 09/25/2020 09/25/2020 10:11 AM CDT Rhino/Enterovirus 09/25/2020 09/25/2020 10/02/2020 3:05 AM CDT COVID: Recovered 11/29/2020 11/29/2020 03/29/2021 3:05 AM HOME SECURITY ALARM INSTALLER COVID: Suspected 10/09/2021 10/09/2021 10/09/2021 9:37 AM CDT COVID: Suspected 03/06/2022 03/06/2022 03/06/2022 9:30 AM HOME SECURITY ALARM INSTALLER RSV, droplet 03/06/2022 03/06/2022 03/13/2022 3:05 AM HOME SECURITY ALARM INSTALLER COVID: Suspected 06/26/2022 06/26/2022 06/26/2022 5:59 PM CDT Coronavirus, droplet 06/26/2022 06/26/2022 023 3:06 AM CDT documented as of this encounter Care Teams Health Aid Relationship Specialty Start Date End Date Zoila Gleason MD [address] [place] [address] PCP - General 09/29/16 Rupal Isabel MD [address] [place] [address] [address] Referring Physician Allergy and Immunology 01/11/19 Rekha Osborne MD [address] [place] [address] Medical Oncologist/Educational Psychologist Hematology 05/11/20 Mayuri Lyn, RN 4590 [facility] [address] [place] [address] SHOP Outpatient Side Guider 12/04/20 01/04/21 Michelle Colin [facility] 8290 [facility] ([facility] [place] Mailstop [phone] [place] [address] SHOP Outpatient Side Guider 10/19/21 11/16/21 documented as of this encounter
--- OUTSIDE RECORDS SUMMARY | 2024-08-12 14:28 | XMS_ITS | Encounter Summary ---
Author Organization [facility] Address [address] [place] [address] Phone Care Team Providers Care Vp Medical Name Role Phone Zoila Gleason MD Primary Care Provider Rupal Isabel MD Unavailable [phone] Rekha Osborne MD Unavailable [phone] Mayuri Lyn RN Unavailable Michelle Colin SECTION 8 PROPERTY MANAGER Unavailable [phone] Encounter Details Date Type Department Care Team [...] on file Legal Sex Male 1:53 AM SPARK PLUG ASSEMBLER Gender Identity Male 10/02/2023 12:44 PM [...] COVID: Recovered 11/29/2020 11/29/2020 03/29/2021 3:05 AM SPARK PLUG ASSEMBLER COVID: Suspected 10/09/2021 10/09/2021 10/09/2021 9:37 AM CDT COVID: Suspected 03/06/2022 03/06/2022 03/06/2022 9:30 AM SPARK PLUG ASSEMBLER RSV, droplet 03/06/2022 03/06/2022 03/13/2022 3:05 AM SPARK PLUG ASSEMBLER COVID: Suspected 06/26/2022 06/26/2022 06/26/2022 5:59 PM CDT Coronavirus, droplet 06/26/2022 06/26/2022 023 3:06 AM CDT documented as of this encounter Care Teams Vp Medical Relationship Specialty Start Date End Date Zoila Gleason MD [address] [place] [address] PCP - General 09/29/16 Rupal Isabel MD [address] [place] [address] [address] [place] [address] Referring Physician Allergy and Immunology 01/11/19 Rekha Osborne MD [address] [place] [address] Medical Oncologist/Fork Operator Hematology 05/11/20 Mayuri Lyn, RN 4590 [facility] [place] [address] [place] [address] SHOP Outpatient Radial Drill Press Operator For Plastic 12/04/20 01/04/21 Michelle Colin LCSW 4590 [facility] ([facility] Mailstop [phone] [place] [address] SHOP Outpatient Radial Drill Press Operator For Plastic 10/19/21 11/16/21 documented as of this encounter
--- OUTSIDE RECORDS SUMMARY | 2024-08-12 14:28 | XMS_ITS | Clinical Summary ---
Author Organization [facility] Address [address] [place] [address] Care Team Providers Care Correctional Officer Chief Name Role Phone Zoila Gleason MD Primary Care Provider [phone] Rupal Isabel MD Unavailable [phone] Rekha Osborne MD Unavailable [phone] Allergies Active Allergy Reactions Criticality Noted Date [...] Never used. 07/07/19 21 Active OptiChamber [facility] spacer USE WITH INHALER DIRECTED 09/25/19 21 Active ergocalciferol (VITAMIN D) 50,000 unit capsuleIndication s:Vitamin D Deficiency Take 1 capsule (50,000 Units total) by mouth once a week Sundays. Active IgG-hyaluronidase ,recombinant 10 gram /100 mL (10 %) solution Inject 50 g under the skin every 4 (four) weeks 500 mL 3 01/06/20 21 Active albuterol 2.5 mg /3 mL (0.083 [...] 1 tablet (112 mcg total) by mouth junior automation engineer before breakfast 03/10/20 23 Active Solu-CORTEF Act-O-Vial, [...] Application by mouth daily 1 tsp Active predniSONE (DELTASONE) 1 mg tablet PLEASE SEE ATTACHED FOR DETAILED DIRECTIONS 04/02/20 24 Active Atrovent HFA 17 mcg/actuation inhaler 03/18/20 24 Active avatrombopag (DOPTELET) 20 mg tabletIndications :Chronic ITP (idiopathic thrombocytopenia) (HCC) Take 1 tablet (20 mg total) by mouth daily Administer with food 90 tablet 3 05/24/19 25 Active testosterone 20.25 mg/1.25 gram (1.62 %) gel in metered-dose pumpIndications:M natali Hypogonadism Place 40.5 mg on the skin daily 225 g 1 08/01/19 25 2024 Active Breztri Aerosphere 160-9-4.8 mcg/actuation inhaler Inhale 2 puffs 2 (two) times a day 08/13/19 Active valACYclovir (VALTREX) 1 gram tabletIndications :shingles Take 1 tablet (1,000 mg total) by mouth as needed 09/01/192024 Disconti nued(Pat ient Reported ) mirtazapine (REMERON) 15 mg tablet 03/02/20 24 2024 Disconti nued(Pat ient Reported ) Asmanex HFA 200 mcg/actuation inhaler Inhale 2 puffs 2 (two) times a day 02/17/20 24 2024 Disconti nued(Pat ient Reported ) dexAMETHasone (DECADRON) 4 mg tablet TAKE 10 TABLETS (40MG) BY MOUTH DAILY NEEDED FOR ITP FOR 4 DAYS 04/01/20 24 2024 Disconti nued(Pat ient Reported ) clonazePAM (KlonoPIN) 0.5 mg tablet 04/04/19 25 2024 Disconti nued(Pat ient Reported ) testosterone 20.25 mg/1.25 gram (1.62 %) gel in metered-dose pump Place 20.25 mg on the skin daily 225 g 05/13/19 25 2024 Disconti nued(Reo rder) Active Problems [...] stooling. -As of 12/18/23 at 1300, per [facility] [phone] - E. Coli. -Repeat blood cultures NGTD -Received cefepime; changed to cefuroxime to complete a 7 day course. Source is suspected to be UTI -TTE neg for vegetations Leukocytosis 12/17/2023 Assessment & Plan (12/17/2023 8:50 PM CDT): CBC at [facility] 12/15 WBC 20.5 (81% neutrophils). Ddx includes [...] (12/01/2020): Added automatically from request for surgery [id number] Anemia 11/28/2020 Assessment & Plan (12/03/2020 11:37 AM CDT): Hgb 4.8 CLINICAL APPLICATION MANAGER and s/p 4U pRBCs total. Hgb now [...] Neutropenic fever 09/25/2020 Idiopathic thrombocytopenic purpura (ITP) ([facility]) 07/09/2020 Assessment & Plan [...] cytopenia, his initial presentation for thrombocytopenia to [facility] was in 2012 (17 yo) with [...] responded to steroid and rituximab last time ([id number]). During his last admission for UTI, he [...] bid - received stress dose steroids at [facility] - continue pred 5 BID - per [...] antibody (red top 2 ml) 2107 to [place] - consider ACTH stim test this admission [...] patient on 11/07. 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 Followed by endocrinology at [facility]. Currently on 150 mcg levothyroxine daily. [...] Avoid concomitant administration of Levothyroxine with patient's CLINICAL APPLICATION MANAGER iron. Separate dosing by at least 4 [...] Decrease PO Ativan to 1mg q6h - 8 - Continue PO Dilaudid 2 mg q4h [...] and honey thickened liquids. NG removed on 8/7. Will continue to monitor PO intake. Per [...] Encounters Date Type Department Care Team Description 08/12/2024 1:00 PM CDT Telemedicine [facility] Allergy and Immunology [address] [facility] [address] [place] [address] Rupal Isabel MD CVID (common variable immunodeficiency) (HCC) (Primary Dx); Arpita's syndrome (HCC); Flexural atopic dermatitis 08/02/2024 Telephone [facility] Endocrinology Metabolism and Lipid [address] [facility] 5th [place] [address] [place] [address] Rose Marie Maurer RMA Prior Auth (PA TESTOSTERONE PLEASE) 05/24/2024 Documentation [facility] Hematology [address] [facility] Floor 6 [place] [address] Rose Marie Zapata RMA Prior Auth (Doptelet Approved through 05/23/25) 05/24/2024 Documentation [facility] Hematology [facility] Floor 6 [place] [address] Saniya Alberts RN from Last [...] Influenza, Trivalent, Preser vative Free, Intramuscular 03/09/2016 [employer] ([employer]) SARS-CoV-2 Vaccination 06/08/2020 MMR 10/01/2002,01/20/1999 Meningococcal [...] COVID-19 10/2019 Clotting disorder 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 Never 10/11/2021 Do you belong to any clubs o r organizations such as christian groups, unions, fraternal or athletic groups, or [...] place to sleep or slept in a mcc (including now)? No 10/11/2021 Personal Safety Answer Date Recorded Have you ever been in or are you currently in a harmful physical or emotional relationship or is someone making you feel afraid or unsafe? Patient unable to answer 12/18/2023 Sex and Gender Information Value Date Recorded Sex Assigned at Not on file Legal Sex Male 1:53 AM SENIOR ADMINISTRATIVE ASSISTANT Gender Identity Male 10/02/2023 12:44 PM CDT Sexual Orientation Don't know 11/15/2020 1: 06 PM CDT Obstetrics History Last Filed Vital Signs Vital Sign Reading Time Taken Comments Blood Pressure 117/79 05/13/2024 2:31 PM SENIOR ADMINISTRATIVE ASSISTANT Pulse 90 05/13/2024 2:31 PM SENIOR ADMINISTRATIVE ASSISTANT Temperature 36.9 C (98.5 F) 05/13/2024 2:31 PM SENIOR ADMINISTRATIVE ASSISTANT Respiratory Rate 18 03/12/2024 2:48 PM SENIOR ADMINISTRATIVE ASSISTANT Oxygen Saturation 96% 03/12/2024 2:48 PM SENIOR ADMINISTRATIVE ASSISTANT Inhaled Oxygen Concentration - - Weight 60.8 kg (134 lb) 05/13/2024 2:31 PM SENIOR ADMINISTRATIVE ASSISTANT Height 160 cm (5' 3 ) 05/13/2024 2:31 PM SENIOR ADMINISTRATIVE ASSISTANT Body Mass Index 23.74 05/13/2024 2:31 PM SENIOR ADMINISTRATIVE ASSISTANT Plan of Treatment Health Maintenance Due Date [...] Procedure Name Priority Date/Time Associated Diagnosis Comments HEPATITIS PANEL, ACUTE Routine 11/28/2020 5:33 PM CDT from Last 3 Months or Most Recently Relevant to Health Maintenance Results * Hepatitis panel, acute (11/28/2020 5:33 PM CDT) Hep A IgM Nonreactive Nonreactive [facility] Comment: Interpretive Data: If Hep A IgM Ab is reported as Equivocal, a new sample should be drawn in two weeks for testing. Current interpretive data was last revised on 19. Hep B core IgM Nonreactive Nonreactive [facility] Comment: Interpretive Data If HepB Core IgM Ab is reported as Equivocal, a new sample should be drawn in two weeks for testing. Current interpretive data was last revised on 19. Hep C Ab Nonreactive Nonreactive [facility] Comment:Antibodies to HCV no t detected. Does NOT exclude the possibility of recent exposure to HCV. HepBsAg Nonreactive Nonreactive [facility] Blood 11/28/2020 5:33 PM CDT 11/28/2020 5:53 PM CDT us Jazzmine Mccartney NP LAB MICROBIO LOGY - GENERAL ORDERABLES Edited Result - Final [facility] Department [place] [address] from Last 3 Months or Most Recently Relevant to Health Maintenance Insurance [place] [facility] CHOICE PLUS [employer] OPEN ACCESS [facility] [place] [facility] CHOICE PLUS [employer] OPEN ACCESS [place] [employer] [place] ACCESS [facility] [place] [address] Advance Directives For more information, please contact: [phone] Documents on File Type Date Recorded Patient Feed Inspection Supervisor Expl anation Power of Weeder Thinner 10/21/2021 12:58 PM ADVANCE DIRECTIVE 10/14/2019 12:35 [...] 5:09 PM 01/02/2021 6:56 PM Care Teams Correctional Officer Chief Relationship Specialty Start Date End Date Zoila Gleason MD [address] [place] [address] PCP - General 09/29/16 Rupal Isabel MD [address] [facility] [address] [place] [address] Referring Physician Allergy and Immunology 01/11/19 Rekha Osborne MD [address] [place] [address] Medical Oncologist/Environmental Planner Hematology 05/11/20
--- OUTSIDE RECORDS SUMMARY | 2024-08-12 14:28 | XMS_ITS | Encounter Summary ---
Author Organization [facility] Healthcare Address [address] [place] [address] Care Team Providers Care Park Activities Coordinator Name Role Phone Zoila Gleason MD Primary Care Provider Rupal Isabel MD Unavailable Rekha Osborne MD Unavailable Mayuri Lyn RN Unavailable Michelle ColinW Unavailable Encounter Details Date Type Department Care Team (Late st Contact Info) Description 03/31/2020 Telephone [facility] [place] [address] Wendy Storm, RDMS Social History Tobacco Use Types Packs/Day Years [...] on file Legal Sex Male 1:53 AM CASTING SUPERVISOR Gender Identity Male 10/02/2023 12:44 PM CDT Sexual Orientation Don't know 11/15/2020 1: 06 PM CDT documented as of this encounter Plan of Treatment Not on file documented as of this encounter Visit Diagnoses Not on filedocumented in this encounter Additional Health Concerns Infection Onset Date Last Indicated Resolved Time COVID: Suspected 04/21/2020 04/21/2020 04/21/2020 11:24 AM CASTING SUPERVISOR Respiratory Infection (MICKEY), contact + droplet Comment:Automatically added due to negative COVID-19 result. 04/21/2020 04/21/2020 05/05/2020 3:0 6 AM CASTING SUPERVISOR COVID: Suspected 04/21/2020 04/21/2020 04/21/2020 6:48 PM CASTING SUPERVISOR COVID: Suspected 09/25/2020 09/25/2020 09/25/2020 10:11 AM CDT Rhino/Enterovirus 09/25/2020 09/25/2020 10/02/2020 3:05 AM CDT COVID: Recovered 11/29/2020 11/29/2020 03/29/2021 3:05 AM CASTING SUPERVISOR COVID: Suspected 10/09/2021 10/09/2021 10/09/2021 9:37 AM CDT COVID: Suspected 03/06/2022 03/06/2022 03/06/2022 9:30 AM CASTING SUPERVISOR RSV, droplet 03/06/2022 03/06/2022 03/13/2022 3:05 AM CASTING SUPERVISOR COVID: Suspected 06/26/2022 06/26/2022 06/26/2022 5:59 PM CDT Coronavirus, droplet 06/26/2022 06/26/2022 023 3:06 AM CDT documented as of this encounter Care Teams Park Activities Coordinator Relationship Specialty Start Date End Date Zoila Gleason MD [address] [place] [address] PCP - General 09/29/16 Rupal Isabel MD [address] [facility] [address] [place] [address] Referring Physician Allergy and Immunology 01/11/19 Rekha Osborne MD [address] [place] [address] Medical Oncologist/Conductor Road Freight Hematology 05/11/20 Mayuri Lyn, RN 4590 [facility] [address] [place] [address] SHOP Outpatient Counter Stacker 12/04/20 01/04/21 Michelle Colin LCSW 4590 [facility] ([facility] Mailstop [phone] [place] [address] SHOP Outpatient Counter Stacker 10/19/21 11/16/21 documented as of this encounter
--- OUTSIDE RECORDS SUMMARY | 2024-08-12 14:28 | XMS_ITS | Encounter Summary ---
Author Organization [facility] Address [address] [place] [address] Phone Care Team Providers Care Garnetter Name Role Phone Zoila Gleason MD Primary Care Provider Rupal Isabel MD Unavailable [phone] Rekha Osborne MD Unavailable [phone] Mayuri Lyn RN Unavailable Michelle Colin LEAD CARGOMAN Unavailable Encounter Details Date Type Department Care [...] on file Legal Sex Male 1:53 AM DAY CAMP UNIT LEADER Gender Identity Male 10/02/2023 12:44 PM CDT [...] COVID: Suspected 04/21/2020 04/21/2020 04/21/2020 11:24 AM DAY CAMP UNIT LEADER Respiratory Infection (MICKEY), contact + droplet Comment:Automatically added due to negative COVID-19 result. 04/21/2020 04/21/2020 05/05/2020 3:0 6 AM DAY CAMP UNIT LEADER COVID: Suspected 04/21/2020 04/21/2020 04/21/2020 6:48 PM DAY CAMP UNIT LEADER COVID: Suspected 09/25/2020 09/25/2020 09/25/2020 10:11 AM CDT Rhino/Enterovirus 09/25/2020 09/25/2020 10/02/2020 3:05 AM CDT COVID: Recovered 11/29/2020 11/29/2020 03/29/2021 3:05 AM DAY CAMP UNIT LEADER COVID: Suspected 10/09/2021 10/09/2021 10/09/2021 9:37 AM CDT COVID: Suspected 03/06/2022 03/06/2022 03/06/2022 9:30 AM DAY CAMP UNIT LEADER RSV, droplet 03/06/2022 03/06/2022 03/13/2022 3:05 AM DAY CAMP UNIT LEADER COVID: Suspected 06/26/2022 06/26/2022 06/26/2022 5:59 PM CDT Coronavirus, droplet 06/26/2022 06/26/202207/03/ 023 3:06 AM CDT documented as of this encounter Care Teams Garnetter Relationship Specialty Start Date End Date Zoila Gleason MD [address] [place] [address] PCP - General 09/29/16 Rupal Isabel MD 10 [facility] [address] [place] [address] Referring Physician Allergy and Immunology 01/11/19 Rekha Osborne MD [address] [place] [address] Medical Oncologist/Fleet Assistant Hematology 05/11/20 Mayuri Lyn, RN 4590 [facility] [address] [place] [address] SHOP Outpatient Table Games Dealer 12/04/20 01/04/21 Michelle Colin LEAD CARGOMAN 4590 [facility] ([facility] Mailstop [phone] [place] [address] SHOP Outpatient Table Games Dealer 10/19/21 11/16/21 documented as of this encounter
--- OUTSIDE RECORDS SUMMARY | 2024-08-12 14:28 | XMS_ITS | Encounter Summary ---
Author Organization [facility] Address [address] [place] [address] Phone Care Team Providers Care Community Relations Specialist Name Role Phone Zoila Gleason MD Primary Care Provider Rupal Isabel MD Unavailable [phone] Rekha Osborne MD Unavailable [phone] Mayuri Lyn RN Unavailable Michelle Colin C DEVELOPER Unavailable Encounter Details Date Type Department Care [...] on file Legal Sex Male 1:53 AM PRESCHOOL DIRECTOR Gender Identity Male 10/02/2023 12:44 PM [...] COVID: Recovered 11/29/2020 11/29/2020 03/29/2021 3:05 AM PRESCHOOL DIRECTOR COVID: Suspected 10/09/2021 10/09/2021 10/09/2021 9:37 AM CDT COVID: Suspected 03/06/2022 03/06/2022 03/06/2022 9:30 AM PRESCHOOL DIRECTOR RSV, droplet 03/06/2022 03/06/2022 03/13/2022 3:05 AM PRESCHOOL DIRECTOR COVID: Suspected 06/26/2022 06/26/2022 06/26/2022 5:59 PM CDT Coronavirus, droplet 06/26/2022 06/26/2022 023 3:06 AM CDT documented as of this encounter Care Teams Community Relations Specialist Relationship Specialty Start Date End Date Zoila Gleason MD [address] [place] [address] PCP - General 09/29/16 Rupal Isabel MD [address] [place] [address] [address] [place] [address] Referring Physician Allergy and Immunology 01/11/19 Rekha Osborne MD [address] [place] [address] Medical Oncologist/Surface Grinding Machine Hand Hematology 05/11/20 Mayuri Lyn, RN 4590 [facility] [address] [place] [address] SHOP Outpatient Coil Connector Repairer 12/04/20 01/04/21 Michelle Colin LCSW 4590 [facility] ([facility]) Mailstop [phone] [place] [address] SHOP Outpatient Coil Connector Repairer 10/19/21 11/16/21 documented as of this encounter
--- OUTSIDE RECORDS SUMMARY | 2024-08-12 14:28 | XMS_ITS | Encounter Summary ---
Author Organization [facility] Address [address] [place] [address] Phone Care Team Providers Care Janitorial Tech Name Role Phone Zoila Gleason MD Primary Care Provider Rupal Isabel MD Unavailable [phone] Rekha Osborne MD Unavailable [phone] Mayuri Lyn RN Unavailable Michelle Colin SCREW EYE ASSEMBLER Unavailable Encounter Details Date Type Department Care [...] on file Legal Sex Male 1:53 AM FRAME RUNNER Gender Identity Male 10/02/2023 12:44 PM [...] COVID: Suspected 04/21/2020 04/21/2020 04/21/2020 11:24 AM FRAME RUNNER Respiratory Infection (MICKEY), contact + droplet Comment:Automatically added due to negative COVID-19 result. 04/21/2020 04/21/2020 05/05/2020 3:0 6 AM FRAME RUNNER COVID: Suspected 04/21/2020 04/21/2020 04/21/2020 6:48 PM FRAME RUNNER COVID: Suspected 09/25/2020 09/25/2020 09/25/2020 10:11 AM CDT Rhino/Enterovirus 09/25/2020 09/25/2020 10/02/2020 3:05 AM CDT COVID: Recovered 11/29/2020 11/29/2020 03/29/2021 3:05 AM FRAME RUNNER COVID: Suspected 10/09/2021 10/09/2021 10/09/2021 9:37 AM CDT COVID: Suspected 03/06/2022 03/06/2022 03/06/2022 9:30 AM FRAME RUNNER RSV, droplet 03/06/2022 03/06/2022 03/13/2022 3:05 AM FRAME RUNNER COVID: Suspected 06/26/2022 06/26/2022 06/26/2022 5:59 PM CDT Coronavirus, droplet 06/26/2022 06/26/2022 023 3:06 AM CDT documented as of this encounter Care Teams Janitorial Tech Relationship Specialty Start Date End Date Zoila Gleason MD [address] [place] [address] PCP - General 09/29/16 Rupal Isabel MD [address] [place] [address] [address] Referring Physician Allergy and Immunology 01/11/19 Rekha Osborne MD [address] [place] [address] Medical Oncologist/Accountant Budget Hematology 05/11/20 Mayuri Lyn, RN 4590 [facility] [address] [place] [address] SHOP Outpatient Plan Nurse 12/04/20 01/04/21 Michelle Colin [facility] 2790 [facility] ([facility] Mailstop [phone] [place] [address] SHOP Outpatient Plan Nurse 10/19/21 11/16/21 documented as of this encounter
--- OUTSIDE RECORDS SUMMARY | 2024-08-12 14:28 | XMS_ITS | Referral Summary ---
Author Organization [facility] Address [address] [place] [address] Care Team Providers Care Fishing Instructor Name Role Phone Zoila Gleason MD Primary Care Provider [phone] Rupal Isabel MD Unavailable Rekha Osborne MD Unavailable Encounters Date Type Department Care Team Description 08/12/2024 1:00 PM CDT Telemedicine [facility] Allergy and Immunology [address] [facility] [address] [place] [address] Rupal Isabel MD CVID (common variable immunodeficiency) (HCC) (Primary Dx); Arpita's syndrome (HCC); Flexural atopic dermatitis 08/02/2024 Telephone [facility] Endocrinology Metabolism and Lipid [address] [facility] 5th [place] [address] [place] [address] Rose Marie Maurer RMA Prior Auth (PA TESTOSTERONE PLEASE) 05/24/2024 Documentation [facility] Hematology [address] [facility] [address] [place] [address] Rose Marie Zapata RMA Prior Auth (Doptelet Approved through 05/23/25) 05/24/2024 Documentation [facility] Hematology [address] [facility] [address] [place] [address] Saniya Alberts RN from Last 3 Months Allergies Active Allergy [...] for anaphylaxis Never used. 07/07/19 21 Active [facility] spacer USE WITH INHALER DIRECTED 09/25/19 21 [...] tablet (112 mcg total) by mouth director of early childhood before breakfast 03/10/20 23 Active Solu-CORTEF Act-O-Vial, [...] puffs 2 (two) times a day 08/13/19 25 Active valACYclovir (VALTREX) 1 gram tabletIndications :shingles Take 1 tablet (1,000 mg total) by mouth as needed 09/01/19 22 2024 Disconti nued(Pat ient Reported ) mirtazapine (REMERON) [...] stooling. -As of 12/18/23 at 1300, per [facility] [phone] - E. Coli. -Repeat blood cultures NGTD -Received cefepime; changed to cefuroxime to complete a 7 day course. Source is suspected to be UTI -TTE neg for vegetations Leukocytosis 12/17/2023 Assessment & Plan (12/17/2023 8:50 PM CDT): CBC at [facility] 12/15 WBC 20.5 (81% neutrophils). Ddx includes [...] (12/01/2020): Added automatically from request for surgery [id number] Anemia 11/28/2020 Assessment & Plan (12/03/2020 11:37 AM CDT): Hgb 4.8 TECHNICAL SERVICES ASSISTANT and s/p 4U pRBCs total. Hgb now 8.2. 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 GI has been following and risk>benefit of EGD. Hgb remains stable, patient and his mom deny further melena. -cont PPI BID x 12 weeks, per GI -see Aripta's syndrome Assessment & Plan (12/02/2020 2:47 PM [...] Neutropenic fever 09/25/2020 Idiopathic thrombocytopenic purpura (ITP) ([facility]) 07/09/2020 Assessment & Plan (12/01/2020 2:02 [...] cytopenia, his initial presentation for thrombocytopenia to [facility] was in 2012 (17 yo) [...] responded to steroid and rituximab last time ([id number]). 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 Parent reports 1.5mg of prednisone qAM [...] an anti-21 hydroxylase antibody to rule out Bowman's as well as a low dose ACTH stim test at some point after 72 hours from last stress dose. He is very well appearing and does not have an indication for stress dosing at this time. - send anti-21 hydroxylase antibody (red top 2 ml) 2107 to [facility] - consider ACTH stim test this admission [...] patient on 11/07. CVID (common variable immunodeficiency) ([facility] ) 04/16/2018 Assessment & Plan (12/19/2023 1:52 [...] AM CDT): Stable. Followed by endocrinology at [facility]. Currently on 150 mcg levothyroxine [...] Avoid concomitant administration of Levothyroxine with patient's TECHNICAL SERVICES ASSISTANT iron. Separate dosing by at least [...] in 2018 and 2019 -follows with Dr Marjerus with Hematology -s/p Dexamethasone 40 mg daily [...] week 10/11/2021 How often do you attend [facility] or alevism services? Never 10/11/2021 Do you belong to any clubs o r organizations such as buddhist groups, unions, fraternal or athletic groups, or [...] in a long term (including now)? No 10/11/2021 Personal Safety Answer Date Recorded Have you ever been in or are you currently in a harmful physical or emotional relationship or is someone making you feel afraid or unsafe? Patient unable to answer 12/18/2023 Sex and Gender Information Value Date Recorded Sex Assigned at Not on file Legal Sex Male 1:53 AM INDUSTRIAL SERVICES WORKER Gender Identity Male 10/02/2023 12:44 PM CDT Sexual Orientation Don't know 11/15/2020 1: 06 PM CDT Last Filed Vital Signs Vital Sign Reading Time Taken Comments Blood Pressure 117/79 05/13/2024 2:31 PM INDUSTRIAL SERVICES WORKER Pulse 90 05/13/2024 2:31 PM INDUSTRIAL SERVICES WORKER Temperature 36.9 C (98.5 F) 05/13/2024 2:31 PM INDUSTRIAL SERVICES WORKER Respiratory Rate 18 03/12/2024 2:48 PM INDUSTRIAL SERVICES WORKER Oxygen Saturation 96% 03/12/2024 2:48 PM INDUSTRIAL SERVICES WORKER Inhaled Oxygen Concentration - - Weight 60.8 kg (134 lb) 05/13/2024 2:31 PM INDUSTRIAL SERVICES WORKER Height 160 cm (5' 3 ) 05/13/2024 2:31 PM INDUSTRIAL SERVICES WORKER Body Mass Index 23.74 05/13/2024 2:31 PM INDUSTRIAL SERVICES WORKER Plan of Treatment Not on file Procedures Procedure Name Priority Date/Time Associated Diagnosis Comments HEPATITIS PANEL, ACUTE Routine 11/28/2020 5:33 PM CDT from Last 3 Months or Most Recently Relevant to Health Maintenance Results * Hepatitis panel, acute (11/28/2020 5:33 PM CDT) Hep A IgM Nonreactive Nonreactive [facility] Comment: Interpretive Data: If Hep A IgM Ab is reported as Equivocal, a new sample should be drawn in two weeks for testing. Current interpretive data was last revised on 19. Hep B core IgM Nonreactive Nonreactive [facility] Comment: Interpretive Data If HepB Core IgM Ab is reported as Equivocal, a new sample should be drawn in two weeks for testing. Current interpretive data was last revised on 19. Hep C Ab Nonreactive Nonreactive [facility] Comment:Antibodies to HCV no t detected. Does NOT exclude the possibility of recent exposure to HCV. HepBsAg Nonreactive Nonreactive [facility] Blood 11/28/2020 5:33 PM CDT 11/28/2020 5:53 PM CDT us [facility]ney APPLICATIONS ADMINISTRATOR LAB MICROBIO LOGY - GENERAL ORDERABLES Edited Result - Final [facility] Department [place] [address] from Last 3 Months or Most Recently Relevant to Health Maintenance Insurance [place] [facility] CHOICE PLUS [employer] OPEN ACCESS [place] P[place] [facility] CHOICE PLUS [employer] OPEN ACCESS IDPA [facility] [place] [employer] [place] ACCESS [facility] CHOICE PLUS Advance Directives For more information, please contact: [phone] Documents on File Type Date Recorded Patient Technical Service Rep Expl anation Power of Quality Control Lead 10/21/2021 12:58 PM ADVANCE DIRECTIVE 10/14/2019 12:35 [...] 5:09 PM 01/02/2021 6:56 PM Care Teams Fishing Instructor Relationship Specialty Start Date End Date Zoila Gleason MD [address] [place] [address] PCP - General 09/29/16 Rupal Isabel MD 10 [facility] [address] [place] [address] Referring Physician Allergy and Immunology 01/11/19 Rekha Osborne MD [address] [place], [place] [address] Medical Oncologist/Tube Machine Operator Hematology 05/11/20
--- OUTSIDE RECORDS SUMMARY | 2024-08-12 14:28 | XMS_ITS | Encounter Summary ---
Author Organization [facility] Healthcare Address [address] [place] [address] Care Team Providers Care Consultative Sales Associate Name Role Phone Zoila Gleason MD Primary Care Provider Rupal Isabel MD Unavailable [phone] Rekha Osborne MD Unavailable [phone] Mayuri Lyn RN Unavailable [phone] Michelle Colin [facility] [facility] Unavailable [phone] Encounter Details Date Type Department Care Team (Late st Contact Info) Description 11/12/2020 Telephone [facility] [address] [place] [address] Aiyana Lovelace, ZOFIA Social History Tobacco Use Types Packs/Day Years [...] on file Legal Sex Male 1:53 AM BONDERITE OPERATOR Gender Identity Male 10/02/2023 12:44 PM CDT Sexual Orientation Don't know 11/15/2020 1: 06 PM CDT documented as of this encounter Plan of Treatment Not on file documented as of this encounter Visit Diagnoses Not on filedocumented in this encounter Additional Health Concerns Infection Onset Date Last Indicated Resolved Time COVID: Recovered 11/29/2020 11/29/2020 03/29/2021 3:05 AM BONDERITE OPERATOR COVID: Suspected 10/09/2021 10/09/2021 10/09/2021 9:37 AM CDT COVID: Suspected 03/06/2022 03/06/2022 03/06/2022 9:30 AM BONDERITE OPERATOR RSV, droplet 03/06/2022 03/06/2022 03/13/2022 3:05 AM BONDERITE OPERATOR COVID: Suspected 06/26/2022 06/26/2022 06/26/2022 5:59 PM CDT Coronavirus, droplet 06/26/2022 06/26/2022 023 3:06 AM CDT documented as of this encounter Care Teams Consultative Sales Associate Relationship Specialty Start Date End Date Zoila Gleason MD [address] [place] [address] PCP - General 09/29/16 Rupal Isabel MD 10 [facility] [address] [place] [address] Referring Physician Allergy and Immunology 01/11/19 Rekha Osborne MD [address] [place] [address] Medical Oncologist/Antenna Design Engineer Hematology 05/11/20 Mayuri Lyn, RN 4590 [facility] [address] [place] [address] SHOP Outpatient Emergency Services Dispatcher 12/04/20 01/04/21 Michelle Colin LCSW 4590 [facility] ([facility] Mailstop [phone] [place] [address] SHOP Outpatient Emergency Services Dispatcher 10/19/21 11/16/21 documented as of this encounter
--- OUTSIDE RECORDS SUMMARY | 2024-08-12 14:28 | XMS_ITS | Encounter Summary ---
Author Organization [facility] Address [address] [place] [address] Phone Care Team Providers Care Metal Loader Name Role Phone Zoila Gleason MD Primary Care Provider Rupal Isabel MD Unavailable [phone] Rekha Osborne MD Unavailable Mayuri Lyn RN Unavailable Michelle Colin AIR BRAKE MAN Unavailable Encounter Details Date Type Department Care [...] on file Legal Sex Male 1:53 AM PROCESS MAINTENANCE TECHNICIAN Gender Identity Male 10/02/2023 12:44 [...] COVID: Suspected 04/21/2020 04/21/2020 04/21/2020 11:24 AM PROCESS MAINTENANCE TECHNICIAN Respiratory Infection (MICKEY), contact + droplet Comment:Automatically added due to negative COVID-19 result. 04/21/2020 04/21/2020 05/05/2020 3:0 6 AM PROCESS MAINTENANCE TECHNICIAN COVID: Suspected 04/21/2020 04/21/2020 04/21/2020 6:48 PM PROCESS MAINTENANCE TECHNICIAN COVID: Suspected 09/25/2020 09/25/2020 09/25/2020 10:11 AM CDT Rhino/Enterovirus 09/25/2020 09/25/2020 10/02/2020 3:05 AM CDT COVID: Recovered 11/29/2020 11/29/2020 03/29/2021 3:05 AM PROCESS MAINTENANCE TECHNICIAN COVID: Suspected 10/09/2021 10/09/2021 10/09/2021 9:37 AM CDT COVID: Suspected 03/06/2022 03/06/2022 03/06/2022 9:30 AM PROCESS MAINTENANCE TECHNICIAN RSV, droplet 03/06/2022 03/06/2022 03/13/2022 3:05 AM PROCESS MAINTENANCE TECHNICIAN COVID: Suspected 06/26/2022 06/26/2022 06/26/2022 5:59 PM CDT Coronavirus, droplet 06/26/2022 06/26/2022 023 3:06 AM CDT documented as of this encounter Care Teams Metal Loader Relationship Specialty Start Date End Date Zoila Gleason MD [address] [place] [address] PCP - General 09/29/16 Rupal Isabel MD [address] [place] [address] [address] Referring Physician Allergy and Immunology 01/11/19 Rekha Osborne MD [address] [place] [address] Medical Oncologist/Painter Drum Hematology 05/11/20 Mayuri Lyn, RN 4590 [facility] [address] [place] [address] SHOP Outpatient Portfolio Consultant 12/04/20 01/04/21 Michelle Colin [facility] 6790 [facility] ([facility] Mailstop [phone] [place] [address] SHOP Outpatient Portfolio Consultant 10/19/21 11/16/21 documented as of this encounter
--- OUTSIDE RECORDS SUMMARY | 2024-08-12 14:28 | XMS_ITS | Encounter Summary ---
Author Organization [facility] Address [address] [place] [address] Phone Care Team Providers Care Core Mounter Name Role Phone Zoila Gleason MD Primary Care Provider Rupal Isabel MD Unavailable [phone] Rekha Osborne MD Unavailable [phone] Mayuri Lyn RN Unavailable Michelle Colin RETAIL CLERK Unavailable [phone] Encounter Details Date Type Department Care Team [...] file Legal Sex Male 1:[address] Gender Identity Male 10/02/2023 12:44 PM CDT [...] COVID: Recovered 11/29/2020 11/29/2020 03/29/2021 3:[address] COVID: Suspected 10/09/2021 10/09/2021 10/09/2021 9:37 AM CDT COVID: Suspected 03/06/2022 03/06/2022 03/06/2022 9:[address] RSV, droplet 03/06/2022 03/06/2022 03/13/2022 3:[address] COVID: Suspected 06/26/2022 06/26/2022 06/26/2022 5:59 PM CDT Coronavirus, droplet 06/26/2022 06/26/2022 023 3:06 AM CDT documented as of this encounter Care Teams Core Mounter Relationship Specialty Start Date End Date Zoila Gleason MD [address] [place], [place] [address] PCP - General 09/29/16 Rupal Isabel MD 10 [facility] [address] [place], [place] [address] Referring Physician Allergy and Immunology 01/11/19 Rekha Osborne MD [address] [place], [place] [address] Medical Oncologist/Ditching Machine Engineer Hematology 05/11/20 Mayuri Lyn, RN 4590 [facility] [address] [place] [address] SHOP Outpatient Steam Tender 12/04/20 01/04/21 Michelle Colin, ROSALIE 4590 [facility] ([facility]) Mailstop [phone] [place] [address] SHOP Outpatient Steam Tender 10/19/21 11/16/21 documented as of this encounter
--- OUTSIDE RECORDS SUMMARY | 2024-08-12 14:28 | XMS_ITS | Encounter Summary ---
Author Organization [facility] of [facility] Address [address] [place] [address] Phone Care Team Providers Care Agricultural Equipment Operator Name Role Phone Zoila Gleason MD Primary Care Provider Rupal Isabel MD Unavailable [phone] Rekha Osborne MD Unavailable [phone] Mayuri Lyn RN Unavailable [phone] Michelle Colin BREAK UP WORKER Unavailable Encounter Details Date Type Department Care [...] file Legal Sex Male 1:53 AM FAST BRIM POUNCER Gender Identity Male 10/02/2023 12:44 PM CDT [...] Recovered 11/29/2020 11/29/2020 03/29/2021 3:05 AM FAST BRIM POUNCER COVID: Suspected 10/09/2021 10/09/2021 10/09/2021 9:37 AM CDT COVID: Suspected 03/06/2022 03/06/2022 03/06/2022 9:30 AM FAST BRIM POUNCER RSV, droplet 03/06/2022 03/06/2022 03/13/2022 3:05 AM FAST BRIM POUNCER COVID: Suspected 06/26/2022 06/26/2022 06/26/2022 5:59 PM CDT Coronavirus, droplet 06/26/2022 06/26/2022 023 3:06 AM CDT documented as of this encounter Care Teams Agricultural Equipment Operator Relationship Specialty Start Date End Date Zoila Gleason MD [address] [place] [address] PCP - General 09/29/16 Rupal Isabel MD [address] [place] [address] [address] [place] [address] Referring Physician Allergy and Immunology 01/11/19 Rekha Osborne MD [address] [place] [address] Medical Oncologist/Bale Stacker Hematology 05/11/20 Mayuri Lyn, RN 4590 [facility] 5300 [place] [address] SHOP Outpatient New Car Driver 12/04/20 01/04/21 Michelle Colin LCSW 4590 [facility] ([facility]) Mailstop [phone] [place] [address] SHOP Outpatient New Car Driver 10/19/21 11/16/21 documented as of this encounter
--- OUTSIDE RECORDS SUMMARY | 2024-08-12 14:29 | XMS_ITS | Encounter Summary ---
Author Organization [facility] of [facility] Address [address] [place] [address] Phone Care Team Providers Care Secondary School Registrar Name Role Phone Zoila Gleason MD Primary Care Provider Rupal Isabel MD Unavailable [phone] Rekha Osborne MD Unavailable [phone] Mayuri Lyn RN Unavailable [phone] Michelle Colin MATZO FORMING MACHINE OPERATOR Unavailable [phone] Encounter Details Date Type Department Care Team [...] on file Legal Sex Male 1:53 AM CRITICAL CARE CNS Gender Identity Male 10/02/2023 12:44 PM CDT [...] COVID: Recovered 11/29/2020 11/29/2020 03/29/2021 3:05 AM CRITICAL CARE CNS COVID: Suspected 10/09/2021 10/09/2021 10/09/2021 9:37 AM CDT COVID: Suspected 03/06/2022 03/06/2022 03/06/2022 9:30 AM CRITICAL CARE CNS RSV, droplet 03/06/2022 03/06/2022 03/13/2022 3:05 AM CRITICAL CARE CNS COVID: Suspected 06/26/2022 06/26/2022 06/26/2022 5:59 PM CDT Coronavirus, droplet 06/26/2022 06/26/2022 023 3:06 AM CDT documented as of this encounter Care Teams Secondary School Registrar Relationship Specialty Start Date End Date Zoila Gleason MD [address] [place] [address] PCP - General 09/29/16 Rupal Isabel MD [address] [place] [address] [address] [place] [address] Referring Physician Allergy and Immunology 01/11/19 Rekha Osborne MD [address] [place] [address] Medical Oncologist/Surgical Scheduler Hematology 05/11/20 Mayuri Lyn, RN 4590 [facility] 5300 [place] [address] SHOP Outpatient Compliance Quality Performance Analyst 12/04/20 01/04/21 Michelle Colin LCSW 4590 [facility] ([facility]) Mailstop [phone] [place] [address] SHOP Outpatient Compliance Quality Performance Analyst 10/19/21 11/16/21 documented as of this encounter
--- OUTSIDE RECORDS SUMMARY | 2024-08-12 14:29 | XMS_ITS | Encounter Summary ---
Author Organization [facility] School of [facility] Address [address] [place] [address] Phone Care Team Providers Care Deck Supervisor Name Role Phone Zoila Gleason MD Primary Care Provider Rupal Isabel MD Unavailable [phone] Rekha Osborne MD Unavailable [phone] Mayuri Lyn RN Unavailable Michelle Colin SILK SCREEN ETCHER Unavailable Encounter Details Date Type Department Care [...] on file Legal Sex Male 1:53 AM SUPPLY CHAIN DIRECTOR Gender Identity Male 10/02/2023 12:44 PM [...] COVID: Suspected 04/21/2020 04/21/2020 04/21/2020 11:24 AM SUPPLY CHAIN DIRECTOR Respiratory Infection (MICKEY), contact + droplet Comment:Automatically added due to negative COVID-19 result. 04/21/2020 04/21/2020 05/05/2020 3:0 6 AM SUPPLY CHAIN DIRECTOR COVID: Suspected 04/21/2020 04/21/2020 04/21/2020 6:48 PM SUPPLY CHAIN DIRECTOR COVID: Suspected 09/25/2020 09/25/2020 09/25/2020 10:11 AM CDT Rhino/Enterovirus 09/25/2020 09/25/2020 10/02/2020 3:05 AM CDT COVID: Recovered 11/29/2020 11/29/2020 03/29/2021 3:05 AM SUPPLY CHAIN DIRECTOR COVID: Suspected 10/09/2021 10/09/2021 10/09/2021 9:37 AM CDT COVID: Suspected 03/06/2022 03/06/2022 03/06/2022 9:30 AM SUPPLY CHAIN DIRECTOR RSV, droplet 03/06/2022 03/06/2022 03/13/2022 3:05 AM SUPPLY CHAIN DIRECTOR COVID: Suspected 06/26/2022 06/26/2022 06/26/2022 5:59 PM CDT Coronavirus, droplet 06/26/2022 06/26/2022 023 3:06 AM CDT documented as of this encounter Care Teams Deck Supervisor Relationship Specialty Start Date End Date Zoila Gleason MD [address] [address] PCP - General 09/29/16 Rupal Isabel MD 10 [facility] 200 [place] [address] Referring Physician Allergy and Immunology 01/11/19 Rekha Osborne MD [address] [place] [address] Medical Oncologist/Nurse Practitioner Home Assessments Hematology 05/11/20 Mayuri Lyn, RN 4590 [facility] [address] [place] [address] SHOP Outpatient Stone Sandblaster 12/04/20 01/04/21 Michelle Colin LCSW 4590 [facility] ([facility]) Mailstop [phone] [place] [address] SHOP Outpatient Stone Sandblaster 10/19/21 11/16/21 documented as of this encounter
--- OUTSIDE RECORDS SUMMARY | 2024-08-12 14:29 | XMS_ITS | Encounter Summary ---
Author Organization [facility] School of [facility] Address [address] [place] [address] Phone Care Team Providers Care Correctional Maintenance Technician Name Role Phone Zoila Gleason MD Primary Care Provider Rupal Isabel MD Unavailable [phone] Rekha Osborne MD Unavailable [phone] Mayuri Lyn RN Unavailable [phone] Michelle Colin PRINTING MANAGER Unavailable [phone] Encounter Details Date Type Department Care Team [...] place to sleep or slept in a skilled nursing (including now)? No 12/10/2020 Sex and Gender Information Value Date Recorded Sex Assigned at Not on file Legal Sex Male 1:53 AM ELECTRONIC ENGRAVER Gender Identity Male 10/02/2023 12:44 PM CDT [...] Recovered 11/29/2020 11/29/2020 03/29/2021 3:05 AM ELECTRONIC ENGRAVER COVID: Suspected 10/09/2021 10/09/2021 10/09/2021 9:37 AM CDT COVID: Suspected 03/06/2022 03/06/2022 03/06/2022 9:30 AM ELECTRONIC ENGRAVER RSV, droplet 03/06/2022 03/06/2022 03/13/2022 3:05 AM ELECTRONIC ENGRAVER COVID: Suspected 06/26/2022 06/26/2022 06/26/2022 5:59 PM CDT Coronavirus, droplet 06/26/2022 06/26/2022 023 3:06 AM CDT documented as of this encounter Care Teams Correctional Maintenance Technician Relationship Specialty Start Date End Date Zoila Gleason MD [address] [place] [address] PCP - General 09/29/16 Rupal Isabel MD 10 [facility] [address] [place] [address] Referring Physician Allergy and Immunology 01/11/19 Rekha Osborne MD [address] [place] [address] Medical Oncologist/Park Landscape Architect Hematology 05/11/20 Mayuri Lyn, RN 4590 [facility] 5[address] [place] [address] SHOP Outpatient Field Mechanic 12/04/20 01/04/21 Michelle Colin LCSW 4590 [facility] ([facility] Mailstop [phone] [place] [address] SHOP Outpatient Field Mechanic 10/19/21 11/16/21 documented as of this encounter
--- OUTSIDE RECORDS SUMMARY | 2024-08-12 14:29 | XMS_ITS | Encounter Summary ---
Author Organization [facility] of [facility] Address [address] [place] [address] Phone Care Team Providers Care Ocular Care Technician Name Role Phone Zoila Gleason MD Primary Care Provider Rupal Isabel MD Unavailable [phone] Rekha Osborne MD Unavailable [phone] Mayuri Lyn RN Unavailable [phone] Michelle Colin IMAGE SCIENTIST Unavailable [phone] Encounter Details Date Type Department Care Team [...] on file Legal Sex Male 1:53 AM NUCLEAR SPECTROSCOPIST Gender Identity Male 10/02/2023 12:44 PM CDT [...] COVID: Recovered 11/29/2020 11/29/2020 03/29/2021 3:05 AM NUCLEAR SPECTROSCOPIST COVID: Suspected 10/09/2021 10/09/2021 10/09/2021 9:37 AM CDT COVID: Suspected 03/06/2022 03/06/2022 03/06/2022 9:30 AM NUCLEAR SPECTROSCOPIST RSV, droplet 03/06/2022 03/06/2022 03/13/2022 3:05 AM NUCLEAR SPECTROSCOPIST COVID: Suspected 06/26/2022 06/26/2022 06/26/2022 5:59 PM CDT Coronavirus, droplet 06/26/2022 06/26/2022 023 3:06 AM CDT documented as of this encounter Care Teams Ocular Care Technician Relationship Specialty Start Date End Date Zoila Gleason MD [address] [place] [address] PCP - General 09/29/16 Rupal Isabel MD [address] [place] [address] [address] [place] [address] Referring Physician Allergy and Immunology 01/11/19 Rekha Osborne MD [address] [place] [address] Medical Oncologist/Disability Aide Hematology 05/11/20 Mayuri Lyn, RN 4590 [facility] [address] [place] [address] SHOP Outpatient Farm Machine Tender 12/04/20 01/04/21 Michelle Colin LCSW 4590 [facility] ([facility]) Mailstop [phone] [place] [address] SHOP Outpatient Farm Machine Tender 10/19/21 11/16/21 documented as of this encounter
--- OUTSIDE RECORDS SUMMARY | 2024-08-12 14:29 | XMS_ITS | Encounter Summary ---
Author Organization [facility] School of [facility] Address [address] [place] [address] Phone Care Team Providers Care Looper Operator Name Role Phone Zoila Gleason MD Primary Care Provider Rupal Isabel MD Unavailable [phone] Rekha Osborne MD Unavailable [phone] Mayuri Lyn RN Unavailable [phone] Michelle Colin CITY MANAGER Unavailable Encounter Details Date Type Department Care [...] file Legal Sex Male 1:53 AM MACHINE CAGE MAKER Gender Identity Male 10/02/2023 12:44 PM CDT [...] Recovered 11/29/2020 11/29/2020 03/29/2021 3:05 AM MACHINE CAGE MAKER COVID: Suspected 10/09/2021 10/09/2021 10/09/2021 9:37 AM CDT COVID: Suspected 03/06/2022 03/06/2022 03/06/2022 9:30 AM MACHINE CAGE MAKER RSV, droplet 03/06/2022 03/06/2022 03/13/2022 3:05 AM MACHINE CAGE MAKER COVID: Suspected 06/26/2022 06/26/2022 06/26/2022 5:59 PM CDT Coronavirus, droplet 06/26/2022 06/26/2022 023 3:06 AM CDT documented as of this encounter Care Teams Looper Operator Relationship Specialty Start Date End Date Zoila Gleason MD [address] [place] [address] PCP - General 09/29/16 Rupal Isabel MD [address] [place] [address] [facility] [address] [place] [address] Referring Physician Allergy and Immunology 01/11/19 Rekha Osborne MD [address] [place] [address] Medical Oncologist/Delivery Man Hematology 05/11/20 Mayuri Lyn, RN 4590 [facility] 5[address] [place] [address] SHOP Outpatient Metal Machine Operator 12/04/20 01/04/21 Michelle Colin LCSW 4590 [facility] ([facility] Mailstop [phone] [place] [address] SHOP Outpatient Metal Machine Operator 10/19/21 11/16/21 documented as of this encounter
--- OUTSIDE RECORDS SUMMARY | 2024-08-12 14:29 | XMS_ITS | Encounter Summary ---
Author Organization [facility] of [facility] Address [address] [place] [address] Phone Care Team Providers Care Fuse Maker Name Role Phone Zoila Gleason MD Primary Care Provider Rupal Isabel MD Unavailable [phone] Rekha Osborne MD Unavailable [phone] Myauri Lyn RN Unavailable [phone] Michelle Colin RHINOLOGIST Unavailable Encounter Details Date Type Department Care [...] on file Legal Sex Male 1:53 AM SERVICE OPERATOR Gender Identity Male 10/02/2023 12:44 PM [...] COVID: Suspected 04/21/2020 04/21/2020 04/21/2020 11:24 AM SERVICE OPERATOR Respiratory Infection (MICKEY), contact + droplet Comment:Automatically added due to negative COVID-19 result. 04/21/2020 04/21/2020 05/05/2020 3:0 6 AM SERVICE OPERATOR COVID: Suspected 04/21/2020 04/21/2020 04/21/2020 6:48 PM SERVICE OPERATOR COVID: Suspected 09/25/2020 09/25/2020 09/25/2020 10:11 AM CDT Rhino/Enterovirus 09/25/2020 09/25/2020 10/02/2020 3:05 AM CDT COVID: Recovered 11/29/2020 11/29/2020 03/29/2021 3:05 AM SERVICE OPERATOR COVID: Suspected 10/09/2021 10/09/2021 10/09/2021 9:37 AM CDT COVID: Suspected 03/06/2022 03/06/2022 03/06/2022 9:30 AM SERVICE OPERATOR RSV, droplet 03/06/2022 03/06/2022 03/13/2022 3:05 AM SERVICE OPERATOR COVID: Suspected 06/26/2022 06/26/2022 06/26/2022 5:59 PM CDT Coronavirus, droplet 06/26/2022 06/26/2022 023 3:06 AM CDT documented as of this encounter Care Teams Fuse Maker Relationship Specialty Start Date End Date Zoila Gleason MD [address] [place] [address] PCP - General 09/29/16 Rupal Isabel MD 10 [facility] [address] [address] Referring Physician Allergy and Immunology 01/11/19 Rekha Osborne MD [address] [place] [address] Medical Oncologist/Gang Sawyer Hematology 05/11/20 Mayuri Lyn, RN 4590 [facility] [address] [place] [address] SHOP Outpatient Rn Corrections 12/04/20 01/04/21 Michelle Colin LCSW 1146 [facility] ([facility]) Mailstop [phone] [place] [address] SHOP Outpatient Rn Corrections 10/19/21 11/16/21 documented as of this encounter
--- OUTSIDE RECORDS SUMMARY | 2024-08-12 14:29 | XMS_ITS | Encounter Summary ---
Author Organization [facility] School of [facility] Address [address] [place] [address] Phone Care Team Providers Care Business Practices Supervisor Name Role Phone Zoila Gleason MD Primary Care Provider Rupal Isabel MD Unavailable [phone] Rekha Osborne MD Unavailable [phone] Mayuri Lyn RN Unavailable [phone] Michelle Colin PROJECT ARCHITECT Unavailable Encounter Details Date Type Department Care [...] on file Legal Sex Male 1:53 AM CARDIOLOGY COORDINATOR Gender Identity Male 10/02/2023 12:44 PM CDT [...] COVID: Recovered 11/29/2020 11/29/2020 03/29/2021 3:05 AM CARDIOLOGY COORDINATOR COVID: Suspected 10/09/2021 10/09/2021 10/09/2021 9:37 AM CDT COVID: Suspected 03/06/2022 03/06/2022 03/06/2022 9:30 AM CARDIOLOGY COORDINATOR RSV, droplet 03/06/2022 03/06/2022 03/13/2022 3:05 AM CARDIOLOGY COORDINATOR COVID: Suspected 06/26/2022 06/26/2022 06/26/2022 5:59 PM CDT Coronavirus, droplet 06/26/2022 06/26/2022 023 3:06 AM CDT documented as of this encounter Care Teams Business Practices Supervisor Relationship Specialty Start Date End Date Zoila Gleason MD [address] [place] [address] PCP - General 09/29/16 Rupal Isabel MD [address] [place] [address] [address] [place] [address] Referring Physician Allergy and Immunology 01/11/19 Rekha Osborne MD [address] [place] [address] Medical Oncologist/Loom Fixer Apprentice Hematology 05/11/20 Mayuri Lyn, RN 4590 [facility] [address] [place] [address] SHOP Outpatient Fishing Rod Marker 12/04/20 01/04/21 Michelle Colin LCSW 4590 [facility] ([facility] Mailstop [phone] [place] [address] SHOP Outpatient Fishing Rod Marker 10/19/21 11/16/21 documented as of this encounter
[2024-08-12 19:20] LABS: Basophils Absolute Auto 0.2 K/mm3 (0.0-0.1); Basophils Percent Auto 1.4 % (0.2-1.2); Eosinophils Percent Auto 0.2 % (0-4.4); Hematocrit 52.7 % (42.0-52.0); Hemoglobin 16.7 g/dL (14.0-18.0); Immature Granulocyte Absolute 0.16 K/mm3 (0.00-0.031); Immature Granulocyte Percent A 1.5 % (0-0.5); Lymphocytes Absolute Auto 1.76 K/mm3 (0.9-3.2); Mean Corpuscular HGB Conc 31.7 g/dl (32-36); Mean Corpuscular Hemoglobin 30.6 pg (26-34); Mean Corpuscular Volume 96.5 fl (80-100); Mean Platelet Volume 11.7 fl (7.4-10.4); Monocytes Absolute Auto 0.8 K/mm3 (0.1-0.6); Monocytes Percent Auto 7.2 % (2.6-8.5); Neutrophils Absolute Auto 7.5 K/mm3 (1.3-6.7); Neutrophils Percent Auto 72.7 % (45.5-73.1); Platelet Count Result 261 k/mm3 (150-375); Red Blood Count 5.46 M/mm3 (4.6-6.20); Red Cell Distribution Width 17.4 % (11.5-14.5); White Blood Count 10.4 K/mm3 (4.5-10.0)
[2024-08-12 20:36] LABS: Alanine Aminotransferase 27 U/L (6-50); Alkaline Phosphatase 110 U/L (38-126); Anion Gap 9 mmol/L (4-12); Aspartate Amino Transferase 48 U/L (17-59); Bilirubin,Total 0.3 mg/dL (0.2-1.3); Blood Urea Nitrogen 23 mg/dL (9-20); Calcium 8.9 mg/dL (8.4-10.2); Carbon Dioxide 25 mmol/L (22-30); Chloride 107 mmol/L (98-107); Cholesterol 196 mg/dL (0-200); Estimated Glomerular Filt Rate > 60; Glucose 102 mg/dL (65-110); HDL Direct 42 mg/dL; Potassium 4.8 mmol/L (3.4-5.0); Sodium 141 mmol/L (137-145); Triglycerides 137 mg/dL (<150)
[2024-08-12 20:43] LABS: Lactate Dehydrogenase < 200 U/L (120-246)
[2024-08-12 20:47] LABS: LDL Cholesterol Direct 98 mg/dL
[2024-08-12 21:45] LABS: Hemoglobin A1C 5.6 % (<5.7)
== END 2024-08-12 14:21 | disposition home or self-care (01) ==
PROVIDERS: PCP Pediatrics; Visit Provider Internal Medicine
DX: D69.6 Thrombocytopenia, unspecified (principal); D69.41 Evans syndrome; R73.9 Hyperglycemia, unspecified; E27.40 Unspecified adrenocortical insufficiency; D83.9 Common variable immunodeficiency, unspecified; Z79.52 Long term (current) use of systemic steroids; Z13.220 Encounter for screening for lipoid disorders
CPT/HCPCS: 36415; 80053; 80061; 83036; 83615; 85025

== ENCOUNTER 2024-08-29 14:35 | Outpatient (CLI) | payer BC, MEDICAID, SELFPAY ==
--- OUTSIDE RECORDS SUMMARY | 2024-08-29 14:39 | XMS_ITS | Clinical Summary ---
Author Organization [employer] [facility] Address [address] [place] [place] [address] Care Team Providers Care Pulpwood Dealer Name Role Phone Unavailable Primary Care Provider [...] WEEKS. 24 Packet 1 03/02/2023 2:48 PM INDOOR SPORTS CENTRE MANAGER 3 Active clindamycin phosphate (CLEOCIN T) 1 [...] procedure 4 Capsule 1 03/02/2023 2:45 PM INDOOR SPORTS CENTRE MANAGER 3 Active docusate sodium (COLACE) 100 mg capsule Take one capsule (100 mg) orally twice a day 60 Capsule 3 03/14/2023 12:03 PM INDOOR SPORTS CENTRE MANAGER 3 Active levothyroxine 112 mcg tablet Take one tablet (112 mcg) orally every morning 90 Tablet 2 03/14/2023 12:03 PM INDOOR SPORTS CENTRE MANAGER 3 Active pantoprazole (PROTONIX) 40 mg Tablet, Delayed Release (E.C.) Take one tablet (40 mg) orally daily 60 Tablet 03/14/2023 12:03 PM INDOOR SPORTS CENTRE MANAGER 3 Active sertraline (ZOLOFT) 100 mg tablet Take one tablet (50 mg) orally daily 90 Tablet 3 3 Active hydrocortisone sod succ, PF, (Solu-CORTEF Act-O-Vial, PF,) 100 mg/2 mL Recon Soln Inject 2 mL (100 mg) by intramuscular injection 1 time daily as needed for adrenal crisis. 10 Each 2 04/17/2023 6:40 PM INDOOR SPORTS CENTRE MANAGER 4 Active apixaban (Eliquis) 5 mg tablet Take 1 Tablet (5 mg) by mouth 2 times daily. 30 Tablet 1 04/08/2023 4:00 PM INDOOR SPORTS CENTRE MANAGER 4 Active nirmatrelvir-r itonavir (Paxlovid) 300(150mg x 2)-100 mg oral pack TAKE 2 TABLETS OF NIRMATRELVIR AND 1 TABLET OF RITONAVIR BY MOUTH TWICE DAILY FOR 5 DAYS 30 Each 4 Active predniSONE (DELTASONE) 1 mg tablet TAKE 1-4 TABLETS BY MOUTH DAILY DIRECTED BY PHYSICIAN. TAKE WITH 5 MG DAILY. 120 Tablet 2 04/25/2023 2:35 PM INDOOR SPORTS CENTRE MANAGER 4 Active nirmatrelvir-r itonavir (Paxlovid) 300(150mg x [...] failure. 90 Tablet 2 04/25/2023 2:35 PM INDOOR SPORTS CENTRE MANAGER 4 Active Immunizations Immunization Administration Dates Next [...]
--- OUTSIDE RECORDS SUMMARY | 2024-08-29 14:39 | XMS_ITS | Encounter Summary ---
Author Organization [facility] School of [facility] Address [address] [place] [address] Phone Care Team Providers Care Surveyor Oil Well Directional Name Role Phone Zoila Gleason MD Primary Care Provider Rupal Isabel MD Unavailable [phone] Rekha Osborne MD Unavailable [phone] Mayuri Lyn RN Unavailable Michelle Colin RESEARCH STAFF MEMBER Unavailable Encounter Details Date Type Department Care [...] on file Legal Sex Male 1:53 AM CDL TEAM TRUCK DRIVER Gender Identity Male 10/02/2023 12:44 [...] COVID: Recovered 11/29/2020 11/29/2020 03/29/2021 3:05 AM CDL TEAM TRUCK DRIVER COVID: Suspected 10/09/2021 10/09/2021 10/09/2021 9:37 AM CDT COVID: Suspected 03/06/2022 03/06/2022 03/06/2022 9:30 AM CDL TEAM TRUCK DRIVER RSV, droplet 03/06/2022 03/06/2022 03/13/2022 3:05 AM CDL TEAM TRUCK DRIVER COVID: Suspected 06/26/2022 06/26/2022 06/26/2022 5:59 PM CDT Coronavirus, droplet 06/26/2022 06/26/2022 023 3:06 AM CDT documented as of this encounter Care Teams Surveyor Oil Well Directional Relationship Specialty Start Date End Date Zoila Gleason MD [address] [place], [place] [address] PCP - General 09/29/16 Rupal Isabel MD 10 [facility] [address] [place], [place] [address] Referring Physician Allergy and Immunology 01/11/19 Rekha Osborne MD [address] [place], [place] [id number] Medical Oncologist/Electric Mule Operator Hematology 05/11/20 Mayuri Lyn, RN 4590 [facility] [address] [place] [address] SHOP Outpatient Patient Accounts Coordinator 12/04/20 01/04/21 Michelle Colin, ROSALIE 4590 [facility] ([facility]) Mailstop [phone] [place] [address] SHOP Outpatient Patient Accounts Coordinator 10/19/21 11/16/21 documented as of this encounter
--- OUTSIDE RECORDS SUMMARY | 2024-08-29 14:39 | XMS_ITS | Encounter Summary ---
Author Organization [facility] School of [facility] Address [address] [place] [address] Phone Care Team Providers Care Waste Water Worker Name Role Phone Zoila Gleason MD Primary Care Provider Rupal Isabel MD Unavailable Rekha Osborne MD Unavailable [phone] Mayuri Lyn RN Unavailable Michelle Colin JEWELRY DRILLING MACHINE OPERATOR Unavailable Encounter Details Date Type Department Care [...] on file Legal Sex Male 1:53 AM SHIP'S OFFICER Gender Identity Male 10/02/2023 12:44 PM [...] COVID: Recovered 11/29/2020 11/29/2020 03/29/2021 3:05 AM SHIP'S OFFICER COVID: Suspected 10/09/2021 10/09/2021 10/09/2021 9:37 AM CDT COVID: Suspected 03/06/2022 03/06/2022 03/06/2022 9:30 AM SHIP'S OFFICER RSV, droplet 03/06/2022 03/06/2022 03/13/2022 3:05 AM SHIP'S OFFICER COVID: Suspected 06/26/2022 06/26/2022 06/26/2022 5:59 PM CDT Coronavirus, droplet 06/26/2022 06/26/2022 023 3:06 AM CDT documented as of this encounter Care Teams Waste Water Worker Relationship Specialty Start Date End Date Zoila Gleason MD [address] [place] [address] PCP - General 09/29/16 Rupal Isabel MD [address] [place] [address] [address] [place] [address] Referring Physician Allergy and Immunology 01/11/19 Rekha Osborne MD [address] [place] [address] Medical Oncologist/Bad Credit Collector Hematology 05/11/20 Mayuri Lyn, RN 4590 [facility] [address] [place] [address] SHOP Outpatient Ip Litigation Associate 12/04/20 01/04/21 Michelle Colin LCSW 4590 [facility] ([facility] Mailstop [phone] [place] [address] SHOP Outpatient Ip Litigation Associate 10/19/21 11/16/21 documented as of this encounter
--- OUTSIDE RECORDS SUMMARY | 2024-08-29 14:39 | XMS_ITS | Encounter Summary ---
Author Organization [facility] Address [address] [place] [address] Phone Care Team Providers Care Precision Agriculture Technician Name Role Phone Zoila Gleason MD Primary Care Provider [phone] Rupal Isabel MD Unavailable [phone] Rekha Osborne MD Unavailable [phone] Mayuri Lyn RN Unavailable Michelle Colin DAYLIGHT DRILLER Unavailable Encounter Details Date Type Department Care [...] on file Legal Sex Male 1:53 AM LOAN BROKER Gender Identity Male 10/02/2023 12:44 PM CDT [...] COVID: Suspected 04/21/2020 04/21/2020 04/21/2020 11:24 AM LOAN BROKER Respiratory Infection (MICKEY), contact + droplet Comment:Automatically added due to negative COVID-19 result. 04/21/2020 04/21/2020 05/05/2020 3:0 6 AM LOAN BROKER COVID: Suspected 04/21/2020 04/21/2020 04/21/2020 6:48 PM LOAN BROKER COVID: Suspected 09/25/2020 09/25/2020 09/25/2020 10:11 AM CDT Rhino/Enterovirus 09/25/2020 09/25/2020 10/02/2020 3:05 AM CDT COVID: Recovered 11/29/2020 11/29/2020 03/29/2021 3:05 AM LOAN BROKER COVID: Suspected 10/09/2021 10/09/2021 10/09/2021 9:37 AM CDT COVID: Suspected 03/06/2022 03/06/2022 03/06/2022 9:30 AM LOAN BROKER RSV, droplet 03/06/2022 03/06/2022 03/13/2022 3:05 AM LOAN BROKER COVID: Suspected 06/26/2022 06/26/2022 06/26/2022 5:59 PM CDT Coronavirus, droplet 06/26/2022 06/26/2022 023 3:06 AM CDT documented as of this encounter Care Teams Precision Agriculture Technician Relationship Specialty Start Date End Date Zoila Gleason MD [address] [place] [address] PCP - General 09/29/16 Rupal Isabel MD [address] [place] [address] [address] Referring Physician Allergy and Immunology 01/11/19 Rekha Osborne MD [address] [place] [address] Medical Oncologist/Software Engineer Hematology 05/11/20 Mayuri Lyn, RN [address] [facility] [address] [place] [address] SHOP Outpatient Instructional Technology Teacher 12/04/20 01/04/21 Michelle Colin [facility] 64[address] [facility] [place] Mailstop [phone] [place] [address] SHOP Outpatient Instructional Technology Teacher 10/19/21 11/16/21 documented as of this encounter
--- OUTSIDE RECORDS SUMMARY | 2024-08-29 14:39 | XMS_ITS | Clinical Summary ---
Author Organization [facility] Address [address] [place] [address] Care Team Providers Care Noodle Press Operator Name Role Phone Zoila Gleason MD Primary Care Provider [phone] Rupal Isabel MD Unavailable [phone] Rekha Osborne MD Unavailable [phone] Allergies Active Allergy Reactions Criticality Noted Date [...] Never used. 07/07/19 21 Active OptiChamber [facility] spacer USE WITH INHALER DIRECTED [...] 1 tablet (112 mcg total) by mouth blasting coal miner before breakfast 03/10/20 23 Active Solu-CORTEF Act-O-Vial, [...] stooling. -As of 12/18/23 at 1300, per [facility] [phone] - E. Coli. -Repeat blood cultures NGTD -Received cefepime; changed to cefuroxime to complete a 7 day course. Source is suspected to be UTI -TTE neg for vegetations Leukocytosis 12/17/2023 Assessment & Plan (12/17/2023 8:50 PM CDT): CBC at [facility] 12/15 WBC 20.5 (81% neutrophils). 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 Hgb now [...] Neutropenic fever 09/25/2020 Idiopathic thrombocytopenic purpura (ITP) ([facility]) 07/09/2020 Assessment & Plan [...] cytopenia, his initial presentation for thrombocytopenia to [facility] was in 2012 (17 yo) with [...] responded to steroid and rituximab last time ([id number]). 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 He is very well appearing and does not have an indication for stress dosing at this time. - send anti-21 hydroxylase antibody (red top 2 ml) 2107 to [facility] - consider ACTH stim test this admission [...] obtain anti-21 hydroxylase Ab to rule out Cullman's disease. Assessment & Plan (12/29/2019 8:18 AM [...] on 11/07. 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 Followed by endocrinology at [facility]. Currently on 150 mcg levothyroxine daily. [...] concomitant administration of Levothyroxine with patient's METAL TANK BUILDER iron. Separate dosing by at least 4 [...] Team Description 08/12/2024 1:00 PM CDT Telemedicine [facility] Allergy and Immunology [address] [place] [address] Rupal Isabel MD CVID (common variable immunodeficiency) (HCC) (Primary Dx); Arpita's syndrome (HCC); Flexural atopic dermatitis 08/02/2024 Telephone [facility] Endocrinology Metabolism and Lipid [address] [facility] 5th [place] [address] [place] [id number] Rose Marie Maurer RMA Prior Auth (DAVEY RAMOS) from Last 3 Months Immunizations Immunization Administration [...] COVID-19 10/2019 Clotting disorder Heart disease s/p SC secondary to severe anemia GI (gastrointestinal bleed) [...] week 10/11/2021 How often do you attend [facility] or yarsanism services? Never 10/11/2021 Do you belong to [...] place to sleep or slept in a residential (including now)? No 10/11/2021 Personal Safety Answer Date Recorded Have you ever been in or are you currently in a harmful physical or emotional relationship or is someone making you feel afraid or unsafe? Patient unable to answer 12/18/2023 Sex and Gender Information Value Date Recorded Sex Assigned at Not on file Legal Sex Male 1:53 AM REMOTE SENSING PROGRAM MANAGER Gender Identity Male 10/02/2023 12:44 PM CDT Sexual Orientation Don't know 11/15/2020 1: 06 PM CDT Obstetrics History Last Filed Vital Signs Vital Sign Reading Time Taken Comments Blood Pressure 117/79 05/13/2024 2:31 PM REMOTE SENSING PROGRAM MANAGER Pulse 90 05/13/2024 2:31 PM REMOTE SENSING PROGRAM MANAGER Temperature 36.9 C (98.5 F) 05/13/2024 2:31 PM REMOTE SENSING PROGRAM MANAGER Respiratory Rate 18 03/12/2024 2:48 PM REMOTE SENSING PROGRAM MANAGER Oxygen Saturation 96% 03/12/2024 2:48 PM REMOTE SENSING PROGRAM MANAGER Inhaled Oxygen Concentration - - Weight 60.8 kg (134 lb) 05/13/2024 2:31 PM REMOTE SENSING PROGRAM MANAGER Height 160 cm (5' 3) 05/13/2024 2:31 PM REMOTE SENSING PROGRAM MANAGER Body Mass Index 23.74 05/13/2024 2:31 PM REMOTE SENSING PROGRAM MANAGER Plan of Treatment Health Maintenance Due [...] PM CDT) Hep A IgM Nonreactive Nonreactive [facility] Comment: Interpretive Data: If Hep A IgM Ab is reported as Equivocal, a new sample should be drawn in two weeks for testing. Current interpretive data was last revised on 19. Hep B core IgM Nonreactive Nonreactive [facility] Comment: Interpretive Data If HepB Core IgM Ab is reported as Equivocal, a new sample should be drawn in two weeks for testing. Current interpretive data was last revised on 19. Hep C Ab Nonreactive Nonreactive [facility] Comment:Antibodies to HCV no t detected. Does NOT exclude the possibility of recent exposure to HCV. HepBsAg Nonreactive Nonreactive [facility] Blood 11/28/2020 5:33 PM CDT 11/28/2020 5:53 PM CDT us Jazzmine Mccartney [facility] MICROBIO LOGY - GENERAL ORDERABLES Edited Result - Final PAULA Lopez [facility] Department [place] [address] from Last 3 Months or Most Recently Relevant to Health Maintenance [place] [facility] CHO[facility] HMO/PPO Address: [address] [address] [place] [address] [employer] [place] ACCESS [place] [facility] CHOICE PLUS [facility] HMO/PPO Address: [address] [address] [place] [address] [employer] OPEN ACCESS [place] [employer] [place] ACCESS [facility] CHOICE PLUS [facility]ALS [facility] HMO/PPO Address: [address] [address] [place] [address] Advance Directives For more information, please contact: [phone] Documents on File Type Date Recorded Patient Enterprise Sales Executive Expl anation Power of Lead Qa Analyst 10/21/2021 12:58 PM ADVANCE DIRECTIVE 10/14/2019 [...] 5:09 PM 01/02/2021 6:56 PM Care Teams Noodle Press Operator Relationship Specialty Start Date End Date Zoila Gleason MD [address] [place] [address] PCP - General 09/29/16 Rupal Isabel MD [address] [place] [address] [address] [place] [address] Referring Physician Allergy and Immunology 01/11/19 Rekha Osborne MD [address] [place] [address] Medical Oncologist/Chief Fishery Division Hematology 05/11/20
--- OUTSIDE RECORDS SUMMARY | 2024-08-29 14:39 | XMS_ITS | Encounter Summary ---
Author Organization [facility] Address [address] [place] [address] Phone Care Team Providers Care Foundry Worker General Name Role Phone Zoila Gleason MD Primary Care Provider Rupal Isabel MD Unavailable [phone] Rekha Osborne MD Unavailable [phone] Mayuri Lyn RN Unavailable Michelle Colin CAREER CENTER ADVISOR Unavailable [phone] Encounter Details Date Type Department Care Team [...] Legal Sex Male 1:53 AM DIRECTOR OF MARKETING Gender Identity Male 10/02/2023 12:44 PM CDT [...] 04/21/2020 04/21/2020 04/21/2020 11:24 AM DIRECTOR OF MARKETING Respiratory Infection (MICKEY), contact + droplet Comment:Automatically added due to negative COVID-19 result. 04/21/2020 04/21/2020 05/05/2020 3:0 6 AM DIRECTOR OF MARKETING COVID: Suspected 04/21/2020 04/21/2020 04/21/2020 6:48 PM DIRECTOR OF MARKETING COVID: Suspected 09/25/2020 09/25/2020 09/25/2020 10:11 AM CDT Rhino/Enterovirus 09/25/2020 09/25/2020 10/02/2020 3:05 AM CDT COVID: Recovered 11/29/2020 11/29/2020 03/29/2021 3:05 AM DIRECTOR OF MARKETING COVID: Suspected 10/09/2021 10/09/2021 10/09/2021 9:37 AM CDT COVID: Suspected 03/06/2022 03/06/2022 03/06/2022 9:30 AM DIRECTOR OF MARKETING RSV, droplet 03/06/2022 03/06/2022 03/13/2022 3:05 AM DIRECTOR OF MARKETING COVID: Suspected 06/26/2022 06/26/2022 06/26/2022 5:59 PM CDT Coronavirus, droplet 06/26/2022 06/26/2022 023 3:06 AM CDT documented as of this encounter Care Teams Foundry Worker General Relationship Specialty Start Date End Date Zoila Gleason MD [address] [place] [address] PCP - General 09/29/16 Rupal Isabel MD [address] [place] [address] [address] Referring Physician Allergy and Immunology 01/11/19 Rekha Osborne MD [address] [place] [address] Medical Oncologist/Kaitara Taraka Hematology 05/11/20 Mayuri Lyn, RN 45[address] [facility] [address] [place] [address] SHOP Outpatient Batch Attendant 12/04/20 01/04/21 Mcihelle Colin [facility] 9[address] [facility] ([facility] Mailstop [phone] [place] [address] SHOP Outpatient Batch Attendant 10/19/21 11/16/21 documented as of this encounter
--- OUTSIDE RECORDS SUMMARY | 2024-08-29 14:39 | XMS_ITS | Encounter Summary ---
Author Organization [facility] Address [address] [place] [address] Phone Care Team Providers Care Back Order Clerk Name Role Phone Zoila Gleason MD Primary Care Provider Rupal Isabel MD Unavailable [phone] Rekha Osborne MD Unavailable [phone] Michelle Colin [facility] Unavailable [phone] Encounter Details Date Type Department Care Team [...] slept in a assisted (including now)? No 12/10/2020 Sex and Gender Information Value Date Recorded Sex Assigned at Not on file Legal Sex Male 1:53 AM DIRECTOR OF SCIENTIFIC RESEARCH Gender Identity Male 10/02/2023 12:44 PM CDT [...] 03/06/2022 03/06/2022 03/06/2022 9:30 AM DIRECTOR OF SCIENTIFIC RESEARCH RSV, droplet 03/06/2022 03/06/2022 03/13/2022 3:05 AM DIRECTOR OF SCIENTIFIC RESEARCH COVID: Suspected 06/26/2022 06/26/2022 06/26/2022 5:59 PM CDT Coronavirus, droplet 06/26/2022 06/26/2022 023 3:06 AM CDT documented as of this encounter Care Teams Back Order Clerk Relationship Specialty Start Date End Date Zoila Gleason MD [address] [place] [address] PCP - General 09/29/16 Rupal Isabel MD [address] [facility] [address] [place] [address] Referring Physician Allergy and Immunology 01/11/19 Rekha Osborne MD [address] [place], [place] [id number] Medical Oncologist/Hand Outside Cutter Hematology 05/11/20 Michelle Colin LCSW 45[address] [facility] [place] Mailstop [phone] [place] [address] SHOP Outpatient Scheduling Coordinator 10/19/21 11/16/21 documented as of this encounter
--- OUTSIDE RECORDS SUMMARY | 2024-08-29 14:39 | XMS_ITS | Encounter Summary ---
Author Organization [facility] Address [address] [place] [address] Care Team Providers Care Baked And Graphite Inspector Name Role Phone Zoila Gleason MD Primary Care Provider Rupal Isabel MD Unavailable Rkeha Osborne MD Unavailable Mayuri Lyn RN Unavailable Michelle ColinW Unavailable [phone] Encounter Details Date Type Department Care Team (Late st Contact Info) Description 03/31/2020 Telephone [facility] [place] [address] Wendy Storm, RDMS Social History [...] on file Legal Sex Male 1:53 AM DOUGHNUT ICER Gender Identity Male 10/02/2023 12:44 PM CDT Sexual Orientation Don't know 11/15/2020 1: 06 PM CDT documented as of this encounter Plan of Treatment Not on file documented as of this encounter Visit Diagnoses Not on filedocumented in this encounter Additional Health Concerns Infection Onset Date Last Indicated Resolved Time COVID: Suspected 04/21/2020 04/21/2020 04/21/2020 11:24 AM DOUGHNUT ICER Respiratory Infection (MICKEY), contact + droplet Comment:Automatically added due to negative COVID-19 result. 04/21/2020 04/21/2020 05/05/2020 3:0 6 AM DOUGHNUT ICER COVID: Suspected 04/21/2020 04/21/2020 04/21/2020 6:48 PM DOUGHNUT ICER COVID: Suspected 09/25/2020 09/25/2020 09/25/2020 10:11 AM CDT Rhino/Enterovirus 09/25/2020 09/25/2020 10/02/2020 3:05 AM CDT COVID: Recovered 11/29/2020 11/29/2020 03/29/2021 3:05 AM DOUGHNUT ICER COVID: Suspected 10/09/2021 10/09/2021 10/09/2021 9:37 AM CDT COVID: Suspected 03/06/2022 03/06/2022 03/06/2022 9:30 AM DOUGHNUT ICER RSV, droplet 03/06/2022 03/06/2022 03/13/2022 3:05 AM DOUGHNUT ICER COVID: Suspected 06/26/2022 06/26/2022 06/26/2022 5:59 PM CDT Coronavirus, droplet 06/26/2022 06/26/2022 023 3:06 AM CDT documented as of this encounter Care Teams Baked And Graphite Inspector Relationship Specialty Start Date End Date Zoila Gleason MD [address] [address] PCP - General 09/29/16 Rupal Isabel MD 10 [facility] [address] [place] [address] Referring Physician Allergy and Immunology 01/11/19 Rekha Osborne MD [address] [place] [address] Medical Oncologist/Front Office Secretary Hematology 05/11/20 Mayuri Lyn, RN 45[address] [facility] [address] [place] [address] SHOP Outpatient Checkout Operator 12/04/20 01/04/21 Michelle Colin LCSW 4590 [facility] ([facility] Mailstop [phone] [place] [address] SHOP Outpatient Checkout Operator 10/19/21 11/16/21 documented as of this encounter
--- OUTSIDE RECORDS SUMMARY | 2024-08-29 14:39 | XMS_ITS | Encounter Summary ---
Author Organization [facility] Address [address] [place] [address] Phone Care Team Providers Care Shift Superintendent Caustic Cresylate Name Role Phone Zoila Gleason MD Primary Care Provider Rupal Isabel MD Unavailable [phone] Rekha Osborne MD Unavailable [phone] Mayuri Lyn RN Unavailable Michelle Colin LIVESTOCK CARETAKER Unavailable [phone] Encounter Details Date Type Department Care Team [...] on file Legal Sex Male 1:53 AM WORKERS' COMPENSATION CLAIMS SUPERVISOR Gender Identity Male 10/02/2023 12:44 PM [...] COVID: Suspected 04/21/2020 04/21/2020 04/21/2020 11:24 AM WORKERS' COMPENSATION CLAIMS SUPERVISOR Respiratory Infection (MICKEY), contact + droplet Comment:Automatically added due to negative COVID-19 result. 04/21/2020 04/21/2020 05/05/2020 3:0 6 AM WORKERS' COMPENSATION CLAIMS SUPERVISOR COVID: Suspected 04/21/2020 04/21/2020 04/21/2020 6:48 PM WORKERS' COMPENSATION CLAIMS SUPERVISOR COVID: Suspected 09/25/2020 09/25/2020 09/25/2020 10:11 AM CDT Rhino/Enterovirus 09/25/2020 09/25/2020 10/02/2020 3:05 AM CDT COVID: Recovered 11/29/2020 11/29/2020 03/29/2021 3:05 AM WORKERS' COMPENSATION CLAIMS SUPERVISOR COVID: Suspected 10/09/2021 10/09/2021 10/09/2021 9:37 AM CDT COVID: Suspected 03/06/2022 03/06/2022 03/06/2022 9:30 AM WORKERS' COMPENSATION CLAIMS SUPERVISOR RSV, droplet 03/06/2022 03/06/2022 03/13/2022 3:05 AM WORKERS' COMPENSATION CLAIMS SUPERVISOR COVID: Suspected 06/26/2022 06/26/2022 06/26/2022 5:59 PM CDT Coronavirus, droplet 06/26/2022 06/26/202207/03/ 023 3:06 AM CDT documented as of this encounter Care Teams Shift Superintendent Caustic Cresylate Relationship Specialty Start Date End Date Zoila Gleason MD [address] [place] [address] PCP - General 09/29/16 Rupal Isabel MD 10 [facility] [address] [place] [address] Referring Physician Allergy and Immunology 01/11/19 Rekha Osborne MD [address] [place] [address] Medical Oncologist/Main Line Assembler Hematology 05/11/20 Mayuri Lyn, RN 45[address] [facility] [address] [place] [address] SHOP Outpatient Inside Meter Tester 12/04/20 01/04/21 Michelle Colin LIVESTOCK CARETAKER 45[address] [facility] ([facility] Mailstop [phone] [place] [address] SHOP Outpatient Inside Meter Tester 10/19/21 11/16/21 documented as of this encounter
--- OUTSIDE RECORDS SUMMARY | 2024-08-29 14:39 | XMS_ITS | Referral Summary ---
Author Organization [facility] ospital Address [address] [place] [address] Care Team Providers Care Animal Care Attendant Name Role Phone Zoila Gleason MD Primary Care Provider [phone] Rupal Isabel MD Unavailable Rekha Osborne MD Unavailable [phone] Encounters Date Type Department Care Team Description 08/12/2024 1:00 PM CDT Telemedicine [facility] All[facility] Immunology [address] [facility] [address] [place] [address] Rupal Isabel MD CVID (common variable immunodeficiency) (HCC) (Primary Dx); Arpita's syndrome (HCC); Flexural atopic dermatitis 08/02/2024 Telephone [facility] Endocrinology Metabolism and Lipid [address] [facility] Advanced Medicine 5th [place] [address] [place] [address] Rose Marie Maurer RMA Prior Auth (PA TESTOSTERONE PLEASE) from Last 3 Months Allergies Active Allergy [...] Never used. 07/07/19 21 Active Darius Rene [facility] spacer USE WITH INHALER DIRECTED 09/25/19 [...] 1 tablet (112 mcg total) by mouth boiler repair supervisor before breakfast 03/10/20 23 Active Solu-CORTEF Act-O-Vial, [...] with food 90 tablet 3 05/24/19 Active testosterone 20.25 mg/1.25 gram (1.62 %) [...] stooling. -As of 12/18/23 at 1300, per [facility] [phone] - E. Coli. -Repeat blood cultures NGTD -Received cefepime; changed to cefuroxime to complete a 7 day course. Source is suspected to be UTI -TTE neg for vegetations Leukocytosis 12/17/2023 Assessment & Plan (12/17/2023 8:50 PM CDT): CBC at [facility] 12/15 WBC 20.5 (81% neutrophils). 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 Hgb [...] cytopenia, his initial presentation for thrombocytopenia to [facility] was in 2012 (17 yo) [...] responded to steroid and rituximab last time ([id number]). During his last admission for UTI, he [...] bid - received stress dose steroids at [facility] - continue pred 5 BID - per [...] antibody (red top 2 ml) 2107 to [place] - consider ACTH stim test this admission [...] patient on 11/07. CVID (common variable immunodeficiency) ([facility] ) 04/16/2018 Assessment & Plan [...] AM CDT): Stable. Followed by endocrinology at [facility]. Currently on 150 mcg levothyroxine [...] Avoid concomitant administration of Levothyroxine with patient's SOAP WORKER iron. Separate dosing by at least [...] - Continue Lovenox 40mg subQ daily (11/06 ) - Per heme, can consider transitioning [...] admitted to PICU, intubated, sedated such as Jorid. - No need further hematology follow up, [...] often do you attend chur ch or spiritism services? Never 10/11/2021 Do you belong to any clubs o r organizations such as bahai groups, unions, fraternal or athletic groups, or [...] slept in a snf (including now)? No 10/11/2021 Personal Safety Answer Date Recorded Have you ever been in or are you currently in a harmful physical or emotional relationship or is someone making you feel afraid or unsafe? Patient unable to answer 12/18/2023 Sex and Gender Information Value Date Recorded Sex Assigned at Not on file Legal Sex Male 1:53 AM CHEMISTRY MANAGER Gender Identity Male 10/02/2023 12:44 PM CDT Sexual Orientation Don't know 11/15/2020 1: 06 PM CDT Last Filed Vital Signs Vital Sign Reading Time Taken Comments Blood Pressure 117/79 05/13/2024 2:31 PM CHEMISTRY MANAGER Pulse 90 05/13/2024 2:31 PM CHEMISTRY MANAGER Temperature 36.9 C (98.5 F) 05/13/2024 2:31 PM CHEMISTRY MANAGER Respiratory Rate 18 03/12/2024 2:48 PM CHEMISTRY MANAGER Oxygen Saturation 96% 03/12/2024 2:48 PM CHEMISTRY MANAGER Inhaled Oxygen Concentration - - Weight 60.8 kg (134 lb) 05/13/2024 2:31 PM CHEMISTRY MANAGER Height 160 cm (5' 3) 05/13/2024 2:31 PM CHEMISTRY MANAGER Body Mass Index 23.74 05/13/2024 2:31 PM CHEMISTRY MANAGER Plan of Treatment Not on file Procedures Procedure Name Priority Date/Time Associated Diagnosis Comments HEPATITIS PANEL, ACUTE Routine 11/28/2020 5:33 PM CDT from Last 3 Months or Most Recently Relevant to Health Maintenance Results * Hepatitis panel, acute (11/28/2020 5:33 PM CDT) Hep A IgM Nonreactive Nonreactive [facility] Comment: Interpretive Data: If Hep A IgM Ab is reported as Equivocal, a new sample should be drawn in two weeks for testing. Current interpretive data was last revised on 19. Hep B core IgM Nonreactive Nonreactive [facility] Comment: Interpretive Data If HepB Core IgM Ab is reported as Equivocal, a new sample should be drawn in two weeks for testing. Current interpretive data was last revised on 19. Hep C Ab Nonreactive Nonreactive [facility] Comment:Antibodies to HCV no t detected. Does NOT exclude the possibility of recent exposure to HCV. HepBsAg Nonreactive Nonreactive [facility] Blood 11/28/2020 5:33 PM CDT 11/28/2020 5:53 PM CDT Jazzmine Mccartney NP LAB MICROBIO LOGY - GENERAL ORDERABLES Edited Result - Final [facility] Department [place] [address] from Last 3 Months or Most Recently Relevant to Health Maintenance Insurance [place] [facility] CHOICE PLUS [employer] OPEN ACC[place] P[place] [facility] CHOICE PLUS [employer] OPEN ACCESS IDPA [facility] [place] [employer] [place] ACCESS [facility] CHOICE PLUS Advance Directives For more information, please contact: [phone] Documents on File Type Date Recorded Patient Word Processing Machine Operator Expl anation Power of Yardage Estimator 10/21/2021 12:58 PM ADVANCE DIRECTIVE 10/14/2019 12:35 [...] 5:09 PM 01/02/2021 6:56 PM Care Teams Animal Care Attendant Relationship Specialty Start Date End Date Zoila Gleason MD [address] [address] PCP - General 09/29/16 Rupal Isabel MD [address] [facility] [address] [place] [address] Referring Physician Allergy and Immunology 01/11/19 Rekha Osborne MD [address] [place] [address] Medical Oncologist/Journeyman Welder Hematology 05/11/20
--- OUTSIDE RECORDS SUMMARY | 2024-08-29 14:39 | XMS_ITS | Encounter Summary ---
Author Organization [facility] School of [facility] Address [address] [place] [address] Phone Care Team Providers Care Oil Well Engineer Name Role Phone Zoila Gleason MD Primary Care Provider [phone] Rupal Isabel MD Unavailable [phone] Rekha Osborne MD Unavailable [phone] Mayuri Lyn RN Unavailable [phone] Michelle Colin SPEECH THERAPY DIRECTOR Unavailable Encounter Details Date Type Department Care [...] file Legal Sex Male 1:53 AM SENIOR TEST ANALYST Gender Identity Male 10/02/2023 12:44 PM [...] COVID: Recovered 11/29/2020 11/29/2020 03/29/2021 3:05 AM SENIOR TEST ANALYST COVID: Suspected 10/09/2021 10/09/2021 10/09/2021 9:37 AM CDT COVID: Suspected 03/06/2022 03/06/2022 03/06/2022 9:30 AM SENIOR TEST ANALYST RSV, droplet 03/06/2022 03/06/2022 03/13/2022 3:05 AM SENIOR TEST ANALYST COVID: Suspected 06/26/2022 06/26/2022 06/26/2022 5:59 PM CDT Coronavirus, droplet 06/26/2022 06/26/2022 023 3:06 AM CDT documented as of this encounter Care Teams Oil Well Engineer Relationship Specialty Start Date End Date Zoila Gleason MD [address] [place] [address] PCP - General 09/29/16 Rupal Isabel MD [address] [place] [address] [address] [place] [address] Referring Physician Allergy and Immunology 01/11/19 Rekha Osborne MD [address] [place] [address] Medical Oncologist/Server Developer Hematology 05/11/20 Mayuri Lyn, RN [address] [facility] [address] [place] [address] SHOP Outpatient Office Administrator 12/04/20 01/04/21 Michelle Colin LCSW [address] [facility] ([facility]) Mailstop [phone] [place] [address] SHOP Outpatient Office Administrator 10/19/21 11/16/21 documented as of this encounter
--- OUTSIDE RECORDS SUMMARY | 2024-08-29 14:39 | XMS_ITS | Encounter Summary ---
Author Organization [facility] School of [facility] Address [address] [place] [address] Phone Care Team Providers Care Gluer Machine Setup Operator Name Role Phone Zoila Gleason MD Primary Care Provider Rupal Isabel MD Unavailable [phone] Rekha Osborne MD Unavailable [phone] Mayuri Lyn RN Unavailable Michelle Colin SUBSTATION INSPECTOR Unavailable [phone] Encounter Details Date Type Department Care Team [...] on file Legal Sex Male 1:53 AM SHAGGER Gender Identity Male 10/02/2023 12:44 PM CDT [...] COVID: Suspected 04/21/2020 04/21/2020 04/21/2020 11:24 AM SHAGGER Respiratory Infection (MICKEY), contact + droplet Comment:Automatically added due to negative COVID-19 result. 04/21/2020 04/21/2020 05/05/2020 3:0 6 AM SHAGGER COVID: Suspected 04/21/2020 04/21/2020 04/21/2020 6:48 PM SHAGGER COVID: Suspected 09/25/2020 09/25/2020 09/25/2020 10:11 AM CDT Rhino/Enterovirus 09/25/2020 09/25/2020 10/02/2020 3:05 AM CDT COVID: Recovered 11/29/2020 11/29/2020 03/29/2021 3:05 AM SHAGGER COVID: Suspected 10/09/2021 10/09/2021 10/09/2021 9:37 AM CDT COVID: Suspected 03/06/2022 03/06/2022 03/06/2022 9:30 AM SHAGGER RSV, droplet 03/06/2022 03/06/2022 03/13/2022 3:05 AM SHAGGER COVID: Suspected 06/26/2022 06/26/2022 06/26/2022 5:59 PM CDT Coronavirus, droplet 06/26/2022 06/26/2022 023 3:06 AM CDT documented as of this encounter Care Teams Gluer Machine Setup Operator Relationship Specialty Start Date End Date Zoila Gleason MD [address] [place] [address] PCP - General 09/29/16 Rupal Isabel MD [address] [place] [address] [address] Referring Physician Allergy and Immunology 01/11/19 Rekha Osborne MD [address] [place] [address] Medical Oncologist/Repair Operator Hematology 05/11/20 Mayuri Lyn, RN [address] [facility] [address] [place] [address] SHOP Outpatient Social Sciences Lecturer 12/04/20 01/04/21 Michelle Colin [facility] [address] [facility] ([facility]) Mailstop [phone] [place] [address] SHOP Outpatient Social Sciences Lecturer 10/19/21 11/16/21 documented as of this encounter
--- OUTSIDE RECORDS SUMMARY | 2024-08-29 14:39 | XMS_ITS | Encounter Summary ---
Author Organization [facility] Address [address] [place] [address] Phone Care Team Providers Care Job Printer Apprentice Name Role Phone Zoila Gleason MD Primary Care Provider Rupal Isabel MD Unavailable [phone] Rekha Osborne MD Unavailable [phone] Mayuri Lyn RN Unavailable Michelle Colin THREAD GRINDER Unavailable Encounter Details Date Type Department Care [...] on file Legal Sex Male 1:53 AM TICKET SELLER Gender Identity Male 10/02/2023 12:44 PM [...] COVID: Suspected 04/21/2020 04/21/2020 04/21/2020 11:24 AM TICKET SELLER Respiratory Infection (MICKEY), contact + droplet Comment:Automatically added due to negative COVID-19 result. 04/21/2020 04/21/2020 05/05/2020 3:0 6 AM TICKET SELLER COVID: Suspected 04/21/2020 04/21/2020 04/21/2020 6:48 PM TICKET SELLER COVID: Suspected 09/25/2020 09/25/2020 09/25/2020 10:11 AM CDT Rhino/Enterovirus 09/25/2020 09/25/2020 10/02/2020 3:05 AM CDT COVID: Recovered 11/29/2020 11/29/2020 03/29/2021 3:05 AM TICKET SELLER COVID: Suspected 10/09/2021 10/09/2021 10/09/2021 9:37 AM CDT COVID: Suspected 03/06/2022 03/06/2022 03/06/2022 9:30 AM TICKET SELLER RSV, droplet 03/06/2022 03/06/2022 03/13/2022 3:05 AM TICKET SELLER COVID: Suspected 06/26/2022 06/26/2022 06/26/2022 5:59 PM CDT Coronavirus, droplet 06/26/2022 06/26/2022 023 3:06 AM CDT documented as of this encounter Care Teams Job Printer Apprentice Relationship Specialty Start Date End Date Zoila Gleason MD [address] [place] [address] PCP - General 09/29/16 Rupal Isabel MD [address] [place] [address] [address] Referring Physician Allergy and Immunology 01/11/19 Rekha Osborne MD [address] [place] [address] Medical Oncologist/Auto Transmission Specialist Hematology 05/11/20 Mayuri Lyn, RN [address] [facility] [address] [place] [address] SHOP Outpatient Fuse Spooler 12/04/20 01/04/21 Michelle Colin [facility] [address] [facility] ([facility] Mailstop [phone] [place] [address] SHOP Outpatient Fuse Spooler 10/19/21 11/16/21 documented as of this encounter
--- OUTSIDE RECORDS SUMMARY | 2024-08-29 14:39 | XMS_ITS | Encounter Summary ---
Author Organization [facility] Address [address] [place] [address] Phone Care Team Providers Care Transformation Analyst Name Role Phone Zoila Gleason MD Primary Care Provider [phone] Rupal Isabel MD Unavailable [phone] Rekha Osborne MD Unavailable [phone] Mayuri Lyn RN Unavailable [phone] Michelle Colin MAST MAKER Unavailable [phone] Encounter Details Date Type Department Care Team [...] on file Legal Sex Male 1:53 AM SPEECH THERAPY TEACHER Gender Identity Male 10/02/2023 12:44 PM [...] COVID: Recovered 11/29/2020 11/29/2020 03/29/2021 3:05 AM SPEECH THERAPY TEACHER COVID: Suspected 10/09/2021 10/09/2021 10/09/2021 9:37 AM CDT COVID: Suspected 03/06/2022 03/06/2022 03/06/2022 9:30 AM SPEECH THERAPY TEACHER RSV, droplet 03/06/2022 03/06/2022 03/13/2022 3:05 AM SPEECH THERAPY TEACHER COVID: Suspected 06/26/2022 06/26/2022 06/26/2022 5:59 PM CDT Coronavirus, droplet 06/26/2022 06/26/2022 023 3:06 AM CDT documented as of this encounter Care Teams Transformation Analyst Relationship Specialty Start Date End Date Zoial Gleason MD [address] [place] [address] PCP - General 09/29/16 Rupal Isabel MD [address] [place] [address] [address] [place] [address] Referring Physician Allergy and Immunology 01/11/19 Rekha Osborne MD [address] [place] [address] Medical Oncologist/Referral Nurse Hematology 05/11/20 Mayuri Lyn, RN [address] [facility] [address] [place] [address] SHOP Outpatient Director Content Marketing 12/04/20 01/04/21 Michelle Colin LCSW 45[address] [facility] ([facility] Mailstop [phone] [place] [address] SHOP Outpatient Director Content Marketing 10/19/21 11/16/21 documented as of this encounter
--- OUTSIDE RECORDS SUMMARY | 2024-08-29 14:39 | XMS_ITS | Encounter Summary ---
Author Organization [facility] Address [address] [place] [address] Phone Care Team Providers Care Foiling Machine Operator Name Role Phone Zoila Gleason MD Primary Care Provider [phone] Rupal Isabel MD Unavailable [phone] Rekha Osborne MD Unavailable [phone] Encounter Details Date Type Department Care Team [...] often do you attend chur ch or muslim services? Never 10/11/2021 Do you belong to any clubs o r organizations such as episcopal groups, unions, fraternal or athletic groups, or [...] slept in a alf (including now)? No 10/11/2021 Sex and Gender Information Value Date Recorded Sex Assigned at Not on file Legal Sex Male 1:53 AM RESPIRATORY CARE SPECIALIST Gender Identity Male 10/02/2023 12:44 PM [...] documented as of this encounter Care Teams Foiling Machine Operator Relationship Specialty Start Date End Date Zoila Gleason MD [address] [place] [address] PCP - General 09/29/16 Rupal Isabel MD [address] [facility] [address] [place] [address] Referring Physician Allergy and Immunology 01/11/19 Rekha Osborne MD [address] [place] [address] Medical Oncologist/Employee Benefits Insurance Agent Hematology 05/11/20 documented as of this encounter
--- OUTSIDE RECORDS SUMMARY | 2024-08-29 14:39 | XMS_ITS | Encounter Summary ---
Author Organization [facility] Address [address] [place] [address] Phone Care Team Providers Care Commercial Food Instructor Name Role Phone Zoila Gleason MD Primary Care Provider Rupal Isabel MD Unavailable [phone] Rekha Osborne MD Unavailable [phone] Mayuri Lyn RN Unavailable [phone] Michelle Colin [facility] Unavailable [phone] Encounter Details Date Type Department Care Team [...] than three times a week 12/10/2020 Attends Restoration Services Not on file 12/10 Active Member [...] on file Legal Sex Male 1:53 AM CASTER OPERATOR Gender Identity Male 10/02/2023 12:44 PM [...] COVID: Recovered 11/29/2020 11/29/2020 03/29/2021 3:05 AM CASTER OPERATOR COVID: Suspected 10/09/2021 10/09/2021 10/09/2021 9:37 AM CDT COVID: Suspected 03/06/2022 03/06/2022 03/06/2022 9:30 AM CASTER OPERATOR RSV, droplet 03/06/2022 03/06/2022 03/13/2022 3:05 AM CASTER OPERATOR COVID: Suspected 06/26/2022 06/26/2022 06/26/2022 5:59 PM CDT Coronavirus, droplet 06/26/2022 06/26/2022 023 3:06 AM CDT documented as of this encounter Care Teams Commercial Food Instructor Relationship Specialty Start Date End Date Zoila Gleason MD [address] [place] [address] PCP - General 09/29/16 Rupal Isabel MD 10 [facility] [address] [place] [address] Referring Physician Allergy and Immunology 01/11/19 Rekha Osborne MD [address] [place] [address] Medical Oncologist/Scrap Crane Operator Hematology 05/11/20 Mayuri Lyn, RN [address] [facility] [address] [place] [address] SHOP Outpatient Hatch Tender 12/04/20 01/04/21 Michelle Colin LCSW 4590 [facility] ([facility] Mailstop [phone] [place] [address] SHOP Outpatient Hatch Tender 10/19/21 11/16/21 documented as of this encounter
--- OUTSIDE RECORDS SUMMARY | 2024-08-29 14:39 | XMS_ITS | Encounter Summary ---
Author Organization [facility] Healthcare Address [address] [place] [address] Care Team Providers Care B2B Sales Professional Name Role Phone Zoila Gleason MD Primary Care Provider Rupal Isabel MD Unavailable [phone] Rekha Osborne MD Unavailable [phone] Mayuri Lyn RN Unavailable [phone] Michelle Colin [facility] Unavailable [phone] Encounter Details Date Type Department Care Team (Late st Contact Info) Description 11/12/2020 Telephone [facility] [address] [place] [address] Aiyana Lovelace, ZOFIA Social History Tobacco [...] on file Legal Sex Male 1:53 AM HEAD OF PARTNER DEVELOPMENT Gender Identity Male 10/02/2023 12:44 PM CDT Sexual Orientation Don't know 11/15/2020 1: 06 PM CDT documented as of this encounter Plan of Treatment Not on file documented as of this encounter Visit Diagnoses Not on filedocumented in this encounter Additional Health Concerns Infection Onset Date Last Indicated Resolved Time COVID: Recovered 11/29/2020 11/29/2020 03/29/2021 3:05 AM HEAD OF PARTNER DEVELOPMENT COVID: Suspected 10/09/2021 10/09/2021 10/09/2021 9:37 AM CDT COVID: Suspected 03/06/2022 03/06/2022 03/06/2022 9:30 AM HEAD OF PARTNER DEVELOPMENT RSV, droplet 03/06/2022 03/06/2022 03/13/2022 3:05 AM HEAD OF PARTNER DEVELOPMENT COVID: Suspected 06/26/2022 06/26/2022 06/26/2022 5:59 PM CDT Coronavirus, droplet 06/26/2022 06/26/2022 023 3:06 AM CDT documented as of this encounter Care Teams B2B Sales Professional Relationship Specialty Start Date End Date Zoila Gleason MD [address] [place] [address] PCP - General 09/29/16 Rupal Isabel MD 10 [facility] [address] [place] [address] Referring Physician Allergy and Immunology 01/11/19 Rekha Osborne MD [address] [place] [address] Medical Oncologist/Welder Tack Hematology 05/11/20 Mayuri Lyn, RN 4590 [facility] [address] [place] [address] SHOP Outpatient Nitroglycerin Supervisor 12/04/20 01/04/21 Michelle Colin LCSW 4590 [facility] ([facility] Mailstop [phone] [place] [address] SHOP Outpatient Nitroglycerin Supervisor 10/19/21 11/16/21 documented as of this encounter
--- OUTSIDE RECORDS SUMMARY | 2024-08-29 14:40 | XMS_ITS | Encounter Summary ---
Author Organization [facility] Address [address] [place] [address] Phone Care Team Providers Care Pattern Filer Name Role Phone Zoila Gleason MD Primary Care Provider Rupal Isabel MD Unavailable Rekha Osborne MD Unavailable [phone] Mayuri Lyn RN Unavailable [phone] Michelle Colin BIOMASS POWER PLANT MANAGER Unavailable Encounter Details Date Type Department [...] on file Legal Sex Male 1:53 AM BONDING AGENT Gender Identity Male 10/02/2023 12:44 PM [...] COVID: Recovered 11/29/2020 11/29/2020 03/29/2021 3:05 AM BONDING AGENT COVID: Suspected 10/09/2021 10/09/2021 10/09/2021 9:37 AM CDT COVID: Suspected 03/06/2022 03/06/2022 03/06/2022 9:30 AM BONDING AGENT RSV, droplet 03/06/2022 03/06/2022 03/13/2022 3:05 AM BONDING AGENT COVID: Suspected 06/26/2022 06/26/2022 06/26/2022 5:59 PM CDT Coronavirus, droplet 06/26/2022 06/26/2022 023 3:06 AM CDT documented as of this encounter Care Teams Pattern Filer Relationship Specialty Start Date End Date Zoila Gleason MD [address] [place] [address] PCP - General 09/29/16 Rupal Isabel MD 10 [facility] [address] [place] [address] Referring Physician Allergy and Immunology 01/11/19 Rekha Osborne MD [address] [place] [address] Medical Oncologist/Pharmacology Teacher Hematology 05/11/20 Mayuri Lyn, RN 4590 [facility] [address] [place] [address] SHOP Outpatient Animal Husbandry Technician 12/04/20 01/04/21 Michelle Colin LCSW 4590 [facility] ([facility] Mailstop [phone] [place] [address] SHOP Outpatient Animal Husbandry Technician 10/19/21 11/16/21 documented as of this encounter
--- OUTSIDE RECORDS SUMMARY | 2024-08-29 14:40 | XMS_ITS | Encounter Summary ---
Author Organization [facility] Address [address] [place] [address] Phone Care Team Providers Care Pot Liner Name Role Phone Zoila Gleason MD Primary Care Provider [phone] Rupal Isabel MD Unavailable [phone] Rekha Osborne MD Unavailable [phone] Mayuri Lyn RN Unavailable Michelle Colin RESPIRATORY PHYSICIAN Unavailable Encounter Details Date Type Department Care [...] file Legal Sex Male 1:53 AM POWER TRANSFORMER REPAIRER Gender Identity Male 10/02/2023 12:44 PM CDT [...] COVID: Recovered 11/29/2020 11/29/2020 03/29/2021 3:05 AM POWER TRANSFORMER REPAIRER COVID: Suspected 10/09/2021 10/09/2021 10/09/2021 9:37 AM CDT COVID: Suspected 03/06/2022 03/06/2022 03/06/2022 9:30 AM POWER TRANSFORMER REPAIRER RSV, droplet 03/06/2022 03/06/2022 03/13/2022 3:05 AM POWER TRANSFORMER REPAIRER COVID: Suspected 06/26/2022 06/26/2022 06/26/2022 5:59 PM CDT Coronavirus, droplet 06/26/2022 06/26/2022 023 3:06 AM CDT documented as of this encounter Care Teams Pot Liner Relationship Specialty Start Date End Date Zoila Gleason MD [address] [place] [address] PCP - General 09/29/16 Rupal Isabel MD [address] [place] [address] [facility] [address] [place] [address] Referring Physician Allergy and Immunology 01/11/19 Rekha Osborne MD [address] [place] [address] Medical Oncologist/Life Skills Instructor Hematology 05/11/20 Mayuri Lyn, RN 4590 [facility] 5300 [place] [address] SHOP Outpatient Vice President Compliance 12/04/20 01/04/21 Michelle Colin LCSW 4590 [facility] ([facility]) Mailstop [phone] [place] [address] SHOP Outpatient Vice President Compliance 10/19/21 11/16/21 documented as of this encounter
--- OUTSIDE RECORDS SUMMARY | 2024-08-29 14:40 | XMS_ITS | Encounter Summary ---
Author Organization [facility] Address [address] [place] [address] Phone Care Team Providers Care Wet Primer Powder Blender Name Role Phone Zoila Gleason MD Primary Care Provider [phone] Rupal Isabel MD Unavailable [phone] Rekha Osborne MD Unavailable [phone] Mayuri Lyn RN Unavailable [phone] Michelle Colin LASER ENGRAVER Unavailable Encounter Details Date Type Department Care [...] on file Legal Sex Male 1:53 AM COMPUTER SYSTEMS SUPPORT SPECIALIST Gender Identity Male 10/02/2023 12:44 PM [...] COVID: Suspected 04/21/2020 04/21/2020 04/21/2020 11:24 AM COMPUTER SYSTEMS SUPPORT SPECIALIST Respiratory Infection (MICKEY), contact + droplet Comment:Automatically added due to negative COVID-19 result. 04/21/2020 04/21/2020 05/05/2020 3:0 6 AM COMPUTER SYSTEMS SUPPORT SPECIALIST COVID: Suspected 04/21/2020 04/21/2020 04/21/2020 6:48 PM COMPUTER SYSTEMS SUPPORT SPECIALIST COVID: Suspected 09/25/2020 09/25/2020 09/25/2020 10:11 AM CDT Rhino/Enterovirus 09/25/2020 09/25/2020 10/02/2020 3:05 AM CDT COVID: Recovered 11/29/2020 11/29/2020 03/29/2021 3:05 AM COMPUTER SYSTEMS SUPPORT SPECIALIST COVID: Suspected 10/09/2021 10/09/2021 10/09/2021 9:37 AM CDT COVID: Suspected 03/06/2022 03/06/2022 03/06/2022 9:30 AM COMPUTER SYSTEMS SUPPORT SPECIALIST RSV, droplet 03/06/2022 03/06/2022 03/13/2022 3:05 AM COMPUTER SYSTEMS SUPPORT SPECIALIST COVID: Suspected 06/26/2022 06/26/2022 06/26/2022 5:59 PM CDT Coronavirus, droplet 06/26/2022 06/26/2022 023 3:06 AM CDT documented as of this encounter Care Teams Wet Primer Powder Blender Relationship Specialty Start Date End Date Zoila Gleason MD [address] [place] [address] PCP - General 09/29/16 Rupal Isabel MD 10 [facility] [address] [place] [address] Referring Physician Allergy and Immunology 01/11/19 Rekha Osborne MD [address] [place] [address] Medical Oncologist/Stretching Machine Tender Frame Hematology 05/11/20 Mayuri Lyn, RN 4590 [facility] [address] [place] [address] SHOP Outpatient Computer Instructor 12/04/20 01/04/21 Michelle Colin LCSW 4590 [facility] ([facility]) Mailstop [phone] [place] [address] SHOP Outpatient Computer Instructor 10/19/21 11/16/21 documented as of this encounter
--- OUTSIDE RECORDS SUMMARY | 2024-08-29 14:40 | XMS_ITS | Encounter Summary ---
Author Organization [facility] Address [address] [place] [address] Phone Care Team Providers Care Fruit Harvest Worker Name Role Phone Zoila Gleason MD Primary Care Provider [phone] Rupal Isabel MD Unavailable [phone] Rekha Osborne MD Unavailable Mayuri Lyn RN Unavailable Michelle Colin MILLINERY TEACHER Unavailable [phone] Encounter Details Date Type Department Care Team [...] file Legal Sex Male 1:53 AM SOFTWARE VERIFICATION ENGINEER Gender Identity Male 10/02/2023 12:44 PM [...] Recovered 11/29/2020 11/29/2020 03/29/2021 3:05 AM SOFTWARE VERIFICATION ENGINEER COVID: Suspected 10/09/2021 10/09/2021 10/09/2021 9:37 AM CDT COVID: Suspected 03/06/2022 03/06/2022 03/06/2022 9:30 AM SOFTWARE VERIFICATION ENGINEER RSV, droplet 03/06/2022 03/06/2022 03/13/2022 3:05 AM SOFTWARE VERIFICATION ENGINEER COVID: Suspected 06/26/2022 06/26/2022 06/26/2022 5:59 PM CDT Coronavirus, droplet 06/26/2022 06/26/2022 023 3:06 AM CDT documented as of this encounter Care Teams Fruit Harvest Worker Relationship Specialty Start Date End Date Zoila Gleason MD [address] [place] [address] PCP - General 09/29/16 Rupal Isabel MD [address] [place] [address] [address] [place] [address] Referring Physician Allergy and Immunology 01/11/19 Rekha Osborne MD [address] [place] [address] Medical Oncologist/Bond Broker Hematology 05/11/20 Mayuri Lyn, RN 4590 [facility] [address] [place] [address] SHOP Outpatient Forensic Locksmith 12/04/20 01/04/21 Michelle Colin LCSW 4590 [facility] ([facility]) Mailstop [phone] [place] [address] SHOP Outpatient Forensic Locksmith 10/19/21 11/16/21 documented as of this encounter
--- OUTSIDE RECORDS SUMMARY | 2024-08-29 14:40 | XMS_ITS | Encounter Summary ---
Author Organization [facility] Address [address] [place] [address] Phone Care Team Providers Care Embroidery Patternmaker Name Role Phone Zoila Gleason MD Primary Care Provider Rupal Isabel MD Unavailable [phone] Rekha Osborne MD Unavailable [phone] Mayuri Lyn RN Unavailable [phone] Michelle Colin NEON MOLDER Unavailable Encounter Details Date Type Department Care [...] file Legal Sex Male 1:53 AM MOTOR VEHICLE INSPECTOR Gender Identity Male 10/02/2023 12:44 PM [...] COVID: Recovered 11/29/2020 11/29/2020 03/29/2021 3:05 AM MOTOR VEHICLE INSPECTOR COVID: Suspected 10/09/2021 10/09/2021 10/09/2021 9:37 AM CDT COVID: Suspected 03/06/2022 03/06/2022 03/06/2022 9:30 AM MOTOR VEHICLE INSPECTOR RSV, droplet 03/06/2022 03/06/2022 03/13/2022 3:05 AM MOTOR VEHICLE INSPECTOR COVID: Suspected 06/26/2022 06/26/2022 06/26/2022 5:59 PM CDT Coronavirus, droplet 06/26/2022 06/26/2022 023 3:06 AM CDT documented as of this encounter Care Teams Embroidery Patternmaker Relationship Specialty Start Date End Date Zoila Gleason MD [address] [place] [address] PCP - General 09/29/16 Rupal Isabel MD [address] [place] [address] [address] [place] [address] Referring Physician Allergy and Immunology 01/11/19 Rekha Osborne MD [address] [place] [address] Medical Oncologist/Forge Press Operator Hematology 05/11/20 Mayuri Lyn, RN 4590 [facility] [address] [place] [address] SHOP Outpatient Turner Machine 12/04/20 01/04/21 Michelle Colin LCSW 4590 [facility] ([facility]) Mailstop [phone] [place] [address] SHOP Outpatient Turner Machine 10/19/21 11/16/21 documented as of this encounter
--- OUTSIDE RECORDS SUMMARY | 2024-08-29 14:40 | XMS_ITS | Encounter Summary ---
Author Organization [facility] Address [address] [place] [address] Phone Care Team Providers Care Associate Professor Of Physics Name Role Phone Zoila Gleason MD Primary Care Provider Rupal Isabel MD Unavailable [phone] Rekha Osborne MD Unavailable [phone] Mayuri Lyn RN Unavailable [phone] Michelle Colin SENIOR TECHNOLOGIST Unavailable [phone] Encounter Details Date Type Department Care Team [...] on file Legal Sex Male 1:53 AM SLURRY BLENDER Gender Identity Male 10/02/2023 12:44 PM CDT [...] COVID: Suspected 04/21/2020 04/21/2020 04/21/2020 11:24 AM SLURRY BLENDER Respiratory Infection (MICKEY), contact + droplet Comment:Automatically added due to negative COVID-19 result. 04/21/2020 04/21/2020 05/05/2020 3:0 6 AM SLURRY BLENDER COVID: Suspected 04/21/2020 04/21/2020 04/21/2020 6:48 PM SLURRY BLENDER COVID: Suspected 09/25/2020 09/25/2020 09/25/2020 10:11 AM CDT Rhino/Enterovirus 09/25/2020 09/25/2020 10/02/2020 3:05 AM CDT COVID: Recovered 11/29/2020 11/29/2020 03/29/2021 3:05 AM SLURRY BLENDER COVID: Suspected 10/09/2021 10/09/2021 10/09/2021 9:37 AM CDT COVID: Suspected 03/06/2022 03/06/2022 03/06/2022 9:30 AM SLURRY BLENDER RSV, droplet 03/06/2022 03/06/2022 03/13/2022 3:05 AM SLURRY BLENDER COVID: Suspected 06/26/2022 06/26/2022 06/26/2022 5:59 PM CDT Coronavirus, droplet 06/26/2022 06/26/2022 023 3:06 AM CDT documented as of this encounter Care Teams Associate Professor Of Physics Relationship Specialty Start Date End Date Zoila Gleason MD [address] [place] [address] PCP - General 09/29/16 Rupal Isabel MD 10 [facility] [address] [address] Referring Physician Allergy and Immunology 01/11/19 Rekha Osborne MD [address] [place] [address] Medical Oncologist/Organic Gardening Teacher Hematology 05/11/20 Mayuri Lyn, RN 4590 [facility] [address] [place] [address] SHOP Outpatient Publications Editor 12/04/20 01/04/21 Michelle Colin LCSW 8047 [facility] ([facility]) Mailstop [phone] [place] [address] SHOP Outpatient Publications Editor 10/19/21 11/16/21 documented as of this encounter
--- OUTSIDE RECORDS SUMMARY | 2024-08-29 14:40 | XMS_ITS | Encounter Summary ---
Author Organization [facility] Address [address] [place] [address] Phone Care Team Providers Care Merchandise Clerk Name Role Phone Zoila Gleason MD Primary Care Provider Rupal Isabel MD Unavailable [phone] Rekha Osborne MD Unavailable [phone] Mayuri Lyn RN Unavailable Michelle Colin [address] FREIGHT Unavailable [phone] Encounter Details Date Type Department Care Team [...] on file Legal Sex Male 1:53 AM STOCK CHECKERER Gender Identity Male 10/02/2023 12:44 PM CDT [...] COVID: Recovered 11/29/2020 11/29/2020 03/29/2021 3:05 AM STOCK CHECKERER COVID: Suspected 10/09/2021 10/09/2021 10/09/2021 9:37 AM CDT COVID: Suspected 03/06/2022 03/06/2022 03/06/2022 9:30 AM STOCK CHECKERER RSV, droplet 03/06/2022 03/06/2022 03/13/2022 3:05 AM STOCK CHECKERER COVID: Suspected 06/26/2022 06/26/2022 06/26/2022 5:59 PM CDT Coronavirus, droplet 06/26/2022 06/26/2022 023 3:06 AM CDT documented as of this encounter Care Teams Merchandise Clerk Relationship Specialty Start Date End Date Zoila Gleason MD [address] [place] [address] PCP - General 09/29/16 Rupal Isabel MD [address] [place] [address] [address] [place] [address] Referring Physician Allergy and Immunology 01/11/19 Rekha Osborne MD [address] [place] [address] Medical Oncologist/Instructor Looping Hematology 05/11/20 Mayuri Lyn, RN 4590 [facility] [address] [place] [address] SHOP Outpatient Wax Ball Knock Out Worker 12/04/20 01/04/21 Michelle Colin LCSW 4590 [facility] Mailstop [phone] [place] [address] SHOP Outpatient Wax Ball Knock Out Worker 10/19/21 11/16/21 documented as of this encounter
--- OUTSIDE RECORDS SUMMARY | 2024-08-29 14:40 | XMS_ITS | Encounter Summary ---
Author Organization [facility] Address [address] [place] [address] Phone Care Team Providers Care Store Group Manager Name Role Phone Zoila Gleason MD Primary Care Provider Rupal Isabel MD Unavailable [phone] Rekha Osborne MD Unavailable [phone] Mayuri Lyn RN Unavailable [phone] Michelle Colin BEDSPREAD SEAMER Unavailable [phone] Encounter Details Date Type Department Care Team [...] on file Legal Sex Male 1:53 AM PRESIDENT [place] Gender Identity Male 10/02/2023 12:44 PM CDT [...] COVID: Recovered 11/29/2020 11/29/2020 03/29/2021 3:05 AM PRESIDENT [place] COVID: Suspected 10/09/2021 10/09/2021 10/09/2021 9:37 AM CDT COVID: Suspected 03/06/2022 03/06/2022 03/06/2022 9:30 AM PRESIDENT [place] RSV, droplet 03/06/2022 03/06/2022 03/13/2022 3:05 AM PRESIDENT [place] COVID: Suspected 06/26/2022 06/26/2022 06/26/2022 5:59 PM CDT Coronavirus, droplet 06/26/2022 06/26/2022 023 3:06 AM CDT documented as of this encounter Care Teams Store Group Manager Relationship Specialty Start Date End Date Zoila Gleason MD [address] [place] [address] PCP - General 09/29/16 Rupal Isabel MD [address] [place] [address] [address] [place] [address] Referring Physician Allergy and Immunology 01/11/19 Rekha Osborne MD [address] [place] [address] Medical Oncologist/Manager Transfer Hematology 05/11/20 Mayuri Lyn, RN 4590 [facility] [address] [place] [address] SHOP Outpatient Area Representative 12/04/20 01/04/21 Michelle Colin LCSW 4590 [facility] ([facility]) Mailstop [phone] [place] [address] SHOP Outpatient Area Representative 10/19/21 11/16/21 documented as of this encounter
--- OUTSIDE RECORDS SUMMARY | 2024-08-29 14:40 | XMS_ITS | Encounter Summary ---
Author Organization [facility] Address [address] [place] [address] Phone Care Team Providers Care Hardware Trainer Name Role Phone Zoila Gleason MD Primary Care Provider Rupal Isabel MD Unavailable Rekha Osborne MD Unavailable [phone] Mayuri Lyn RN Unavailable [phone] Michelle Colin REPAIRING CALIBRATOR Unavailable Encounter Details Date Type Department Care [...] on file Legal Sex Male 1:53 AM FINANCIAL SECRETARY Gender Identity Male 10/02/2023 12:44 PM [...] COVID: Recovered 11/29/2020 11/29/2020 03/29/2021 3:05 AM FINANCIAL SECRETARY COVID: Suspected 10/09/2021 10/09/2021 10/09/2021 9:37 AM CDT COVID: Suspected 03/06/2022 03/06/2022 03/06/2022 9:30 AM FINANCIAL SECRETARY RSV, droplet 03/06/2022 03/06/2022 03/13/2022 3:05 AM FINANCIAL SECRETARY COVID: Suspected 06/26/2022 06/26/2022 06/26/2022 5:59 PM CDT Coronavirus, droplet 06/26/2022 06/26/2022 023 3:06 AM CDT documented as of this encounter Care Teams Hardware Trainer Relationship Specialty Start Date End Date Zoila Gleason MD [address] [place] [address] PCP - General 09/29/16 Rupal Isabel MD [address] [place] [address] [address] [place] [address] Referring Physician Allergy and Immunology 01/11/19 Rekha Osborne MD [address] [place] [address] Medical Oncologist/Informatics Scientist Hematology 05/11/20 Mayuri Lyn, RN 4590 [facility] [address] [place] [address] SHOP Outpatient Insecticide Sprayer 12/04/20 01/04/21 Michelle Colin LCSW 4590 [facility] ([facility] Mailstop [phone] [place] [address] SHOP Outpatient Insecticide Sprayer 10/19/21 11/16/21 documented as of this encounter
[2024-08-29 20:19] LABS: Basophils Absolute Auto 0.1 K/mm3 (0.0-0.1); Eosinophils Percent Auto 0.3 % (0-4.4); Hematocrit 52.9 % (42.0-52.0); Immature Granulocyte Absolute 0.18 K/mm3 (0.00-0.031); Immature Granulocyte Percent A 1.4 % (0-0.5); Lymphocytes Absolute Auto 1.95 K/mm3 (0.9-3.2); Lymphocytes Percent Auto 14.7 % (18.3-44.2); Mean Corpuscular HGB Conc 32.1 g/dl (32-36); Mean Corpuscular Hemoglobin 30.8 pg (26-34); Mean Corpuscular Volume 95.8 fl (80-100); Mean Platelet Volume 12.9 fl (7.4-10.4); Monocytes Absolute Auto 1.1 K/mm3 (0.1-0.6); Monocytes Percent Auto 8.4 % (2.6-8.5); Neutrophils Absolute Auto 9.9 K/mm3 (1.3-6.7); Neutrophils Percent Auto 74.2 % (45.5-73.1); Platelet Count Result 113 k/mm3 (150-375); Red Blood Count 5.52 M/mm3 (4.6-6.20); Red Cell Distribution Width 18.2 % (11.5-14.5); White Blood Count 13.3 K/mm3 (4.5-10.0)
[2024-09-01 17:57] LABS: CD19 Percentage 1 % (6-29); CD19, Absolute <20 cells/uL (110-660); CD3, Absolute 1639 cells/uL (840-3060); CD3, Percentage 86 % (57-85); CD3- CD16+ CD56+ 13 % (4-25); CD3- CD16+ CD56+ 247 cells/uL (70-760); CD4, Absolute 514 cells/uL (490-1740); CD4, Percentage 27 % (30-61); CD4/CD8 Ratio 0.41 (0.86-5.00); CD8, Absolute 1252 cells/uL (180-1170); CD8, Percentage 66 % (12-42); Lymphocytes, Absolute 1903 cells/uL (850-3900)
== END 2024-08-29 14:36 | disposition home or self-care (01) ==
LOC: ANHGOSHLAB 14:37
PROVIDERS: PCP Pediatrics; Visit Provider Internal Medicine
DX: D69.6 Thrombocytopenia, unspecified (principal); D83.9 Common variable immunodeficiency, unspecified; D59.10 Autoimmune hemolytic anemia, unspecified; D69.41 Evans syndrome
CPT/HCPCS: 36415; 85025

== ENCOUNTER 2024-08-31 14:55 | Emergency (ER) | payer BC, MEDICAID, SELFPAY ==
[2024-08-31] VITALS (32 sets, daily range): BP systolic 83–111; BP diastolic 43–60; PULSE 61–88; RESP 14–27; TEMP 36.9–37.5; O2SAT 90–98
--- NOTE | ~2024-08-31 | CT_ITS ---
CT chest abdomen pelvis w con Ordering provider: Imer Walden MD History: 28 years Male with . N/V, Hypotension. Non-verbal . Comparison: September 18, 2023 Technique: CT chest with IV contrast. CT abdomen and pelvis CT abdomen and pelvis with IV and with or al contrast. Radiation reduction technique utilized.The dose-length product was 579.65 mGy-cm. 100 mL Omnipaque 350 was given IV. FINDINGS: CHEST: --VISUALIZED THORACIC INLET: Normal. --MEDIASTINUM: Aorta/coronary arteries: The thoracic aorta is normal. Heart/other: The heart is not enlarged. Lymph nodes: No mediastinal or hilar adenopathy. Small mediastinal lymph nodes are seen. Subcarinal l ymph nodes are also seen with the largest measures 2 cm. Bilateral axillary lymph nodes are seen with the largest on the left side measures 2 cm. Postoperative changes in the mediastinum. --LUNGS: No pulmonary nodules or masses. No infiltrates or effusions. No pneumothorax. Atelectasis ve rsus pneumonia changes in the area of the right upper lobe inferiorly is noted. Bilateral basal opaci fication is also noted which may indicate atelectasis versus pneumonia. Similar changes seen in the l eft upper lobe posteriorly. Underlying emphysematous changes. --MUSCULOSKELETAL: Soft tissues: The superficial soft tissues are normal. Bones: Normal spine. No suspicious bony lytic or sclerotic lesions. ABDOMEN/PELVIS: --MUSCULOSKELETAL: Bones: Age appropriate degenerative changes of the spine. No suspicious bony lytic or sclerotic lesio ns. Superficial soft tissues: The superficial soft tissues are normal. --UPPER ABDOMINAL ORGANS: Liver: Normal. Soft tissue density seen in the sarath hepatis suggestive of enlarged lymph nodes. Gallbladder: Normal. Spleen: Not demonstrated. Stomach/duodenum: Sliding slightly dilated distal stomach. Pancreas: Normal. Adrenals: Normal. Kidneys: Tiny cyst in the right kidney lower pole. --PELVIC ORGANS: The bladder is slightly underfilled with thickened wall. Evaluation for cystitis adv ised. No bladder stones. --BOWEL AND MESENTERY: Colon: No evidence of diverticulitis. Slightly thickened wall of the rectosigmoid area which may thomas azra colitis. Clinical correlation advised. Fluid is seen in the large bowel. Appendix is not demonst rated. Small Bowel: Slightly thickened wall of the small bowel with enhancement which may indicate enteritis . Clinical correlation and follow-up advised. No obstruction. Peritoneum/mesentery: No free air or free fluid. Enlarged mesenteric lymph nodes are seen with the la rgest measures 1.3 cm. --RETROPERITONEUM: Normal aorta. No retroperitoneal lymphadenopathy. IMPRESSION: CHEST: 1. No ascites seen in the mediastinum and axilla areas which are smaller than the previous study. 2. Multiple areas of pneumonia versus atelectasis versus postradiation changes in the lungs. Clinica l correlation and follow-up advised. ABDOMEN/PELVIS: 1. No evidence of appendicitis, diverticulitis or intestinal obstruction. 2. Fluid in the large bowel suggestive of diarrhea. 3. Enhancing wall of the small bowel with fluid content which may indicate enteritis versus diarrhea . Clinical correlation and follow-up advised. 4. Highly suggestive lymphadenopathy in the sarath hepatis. 5. Slightly thickened wall of the rectosigmoid which may indicate colitis. 6. Multiple enlarged lymph nodes in the mesentery. Reviewed, dictated and finalized at location A. IMPRESSION: CHEST: 1. No ascites seen in the mediastinum and axilla areas which are smaller than the previous study. 2. Multiple areas of pneumonia versus atelectasis versus postradiation changes in the lungs. Clinical correlation and follow-up advised. ABDOMEN/PELVIS: 1. No evidence of appendicitis, diverticulitis or intestinal obstruction. 2. Fluid in the large bowel suggestive of diarrhea. 3. Enhancing wall of the small bowel with fluid content which may indicate ent eritis versus diarrhea. Clinical correlation and follow-up advised. 4. Highly suggestive lymphadenopathy in the sarath hepatis. 5. Slightly thickened wall of the rectosigmoid which may indicate colitis. 6. Multiple enlarged lymph nodes in the mesentery.
--- NOTE | ~2024-08-31 | XR_ITS ---
XR chest 1V portable Ordering provider: Imer Walden MD History: 28 years Male with . Hypotensive . Comparison: December 16, 2023 FINDINGS: MEDIASTINUM: The cardiac silhouette is not enlarged. LUNGS: No infiltrates, effusions or pneumothorax. OTHER: No free air under the diaphragm. IMPRESSION: No acute cardiopulmonary pathology. Reviewed, dictated and finalized at location A.
--- OUTSIDE RECORDS SUMMARY | 2024-08-31 14:57 | XMS_ITS | Encounter Summary ---
Author Organization [facility] Address [address] [place] [address] Phone Care Team Providers Care Fitter Machinist Name Role Phone Zoila Gleason MD Primary Care Provider Rupal Isabel MD Unavailable [phone] Rekha Osborne MD Unavailable [phone] Mayuri Lyn RN Unavailable [phone] Michelle Colin HAND SCREEN PRINTER Unavailable Encounter Details Date Type Department Care [...] on file Legal Sex Male 1:53 AM NIGHT GUARD Gender Identity Male 10/02/2023 12:44 PM CDT [...] COVID: Suspected 04/21/2020 04/21/2020 04/21/2020 11:24 AM NIGHT GUARD Respiratory Infection (MICKEY), contact + droplet Comment:Automatically added due to negative COVID-19 result. 04/21/2020 04/21/2020 05/05/2020 3:0 6 AM NIGHT GUARD COVID: Suspected 04/21/2020 04/21/2020 04/21/2020 6:48 PM NIGHT GUARD COVID: Suspected 09/25/2020 09/25/2020 09/25/2020 10:11 AM CDT Rhino/Enterovirus 09/25/2020 09/25/2020 10/02/2020 3:05 AM CDT COVID: Recovered 11/29/2020 11/29/2020 03/29/2021 3:05 AM NIGHT GUARD COVID: Suspected 10/09/2021 10/09/2021 10/09/2021 9:37 AM CDT COVID: Suspected 03/06/2022 03/06/2022 03/06/2022 9:30 AM NIGHT GUARD RSV, droplet 03/06/2022 03/06/2022 03/13/2022 3:05 AM NIGHT GUARD COVID: Suspected 06/26/2022 06/26/2022 06/26/2022 5:59 PM CDT Coronavirus, droplet 06/26/2022 06/26/2022 023 3:06 AM CDT documented as of this encounter Care Teams Fitter Machinist Relationship Specialty Start Date End Date Zoila Gleason MD [address] [place] [address] PCP - General 09/29/16 Rupal Isabel MD [address] [place] [address] [address] Referring Physician Allergy and Immunology 01/11/19 Rekha Osborne MD [address] [place] [address] Medical Oncologist/Social Science Instructor Hematology 05/11/20 Mayuri Lyn, RN 4590 [facility] [address] [place] [address] SHOP Outpatient Senior Director Insight 12/04/20 01/04/21 Michelle Colin [facility] 7990 [facility] ([facility]) Mailstop [phone] [place] [address] SHOP Outpatient Senior Director Insight 10/19/21 11/16/21 documented as of this encounter
--- OUTSIDE RECORDS SUMMARY | 2024-08-31 14:57 | XMS_ITS | Clinical Summary ---
Author Organization [employer] [facility] Address [address] [place] [address] Care Team Providers Care Laborer Bituminous Paving Name Role Phone Unavailable Primary Care Provider [...] WEEKS. 24 Packet 1 03/02/2023 2:48 PM SOLDER MAKING LABORER 3 Active clindamycin phosphate (CLEOCIN T) 1 [...] procedure 4 Capsule 1 03/02/2023 2:45 PM SOLDER MAKING LABORER 3 Active docusate sodium (COLACE) 100 mg capsule Take one capsule (100 mg) orally twice a day 60 Capsule 3 03/14/2023 12:03 PM SOLDER MAKING LABORER 3 Active levothyroxine 112 mcg tablet Take one tablet (112 mcg) orally every morning 90 Tablet 2 03/14/2023 12:03 PM SOLDER MAKING LABORER 3 Active pantoprazole (PROTONIX) 40 mg Tablet, Delayed Release (E.C.) Take one tablet (40 mg) orally daily 60 Tablet 03/14/2023 12:03 PM SOLDER MAKING LABORER 3 Active sertraline (ZOLOFT) 100 mg tablet Take one tablet (50 mg) orally daily 90 Tablet 3 3 Active hydrocortisone sod succ, PF, (Solu-CORTEF Act-O-Vial, PF,) 100 mg/2 mL Recon Soln Inject 2 mL (100 mg) by intramuscular injection 1 time daily as needed for adrenal crisis. 10 Each 2 04/17/2023 6:40 PM SOLDER MAKING LABORER 4 Active apixaban (Eliquis) 5 mg tablet Take 1 Tablet (5 mg) by mouth 2 times daily. 30 Tablet 1 04/08/2023 4:00 PM SOLDER MAKING LABORER 4 Active nirmatrelvir-r itonavir (Paxlovid) 300(150mg x 2)-100 mg oral pack TAKE 2 TABLETS OF NIRMATRELVIR AND 1 TABLET OF RITONAVIR BY MOUTH TWICE DAILY FOR 5 DAYS 30 Each 4 Active predniSONE (DELTASONE) 1 mg tablet TAKE 1-4 TABLETS BY MOUTH DAILY DIRECTED BY PHYSICIAN. TAKE WITH 5 MG DAILY. 120 Tablet 2 04/25/2023 2:35 PM SOLDER MAKING LABORER 4 Active nirmatrelvir-r itonavir (Paxlovid) 300(150mg x [...] failure. 90 Tablet 2 04/25/2023 2:35 PM SOLDER MAKING LABORER 4 Active Immunizations Immunization Administration Dates Next [...]
--- OUTSIDE RECORDS SUMMARY | 2024-08-31 14:57 | XMS_ITS | Encounter Summary ---
Author Organization [facility] Address [address] [place] [address] Phone Care Team Providers Care Bobbin Sorter Name Role Phone Zoila Gleason MD Primary Care Provider Rupal Isabel MD Unavailable [phone] Rekha Osborne MD Unavailable [phone] [facility] Unavailable [phone] Encounter Details Date Type Department Care Team [...] than three times a week 12/10/2020 Attends Congregational Services Not on file 12/10 Active Member [...] on file Legal Sex Male 1:53 AM SYNTHETIC PLASTERER Gender Identity Male 10/02/2023 12:44 PM CDT [...] COVID: Suspected 03/06/2022 03/06/2022 03/06/2022 9:30 AM SYNTHETIC PLASTERER RSV, droplet 03/06/2022 03/06/2022 03/13/2022 3:05 AM SYNTHETIC PLASTERER COVID: Suspected 06/26/2022 06/26/2022 06/26/2022 5:59 PM CDT Coronavirus, droplet 06/26/2022 06/26/2022 023 3:06 AM CDT documented as of this encounter Care Teams Bobbin Sorter Relationship Specialty Start Date End Date Zoila Gleason MD [address] [place] [address] PCP - General 09/29/16 Rupal Isabel MD 10 [facility] [address] [place] [address] Referring Physician Allergy and Immunology 01/11/19 Rekha Osborne MD [address] [place], [place] [address] Medical Oncologist/Hand Pattern Marker Hematology 05/11/20 Michelle Colin LCSW 4590 [facility] ([facility]) Mailstop [phone] [place] [address] SHOP Outpatient Wire Weaver 10/19/21 11/16/21 documented as of this encounter
--- OUTSIDE RECORDS SUMMARY | 2024-08-31 14:57 | XMS_ITS | Referral Summary ---
Author Organization [facility] ospital Address [address] [place] [address] Care Team Providers Care Cordwood Cutter Helper Name Role Phone Zoila Gleason MD Primary Care Provider [phone] Rupal Isabel MD Unavailable Rekha Osborne MD Unavailable [phone] Encounters Date Type Department Care Team Description 08/12/2024 1:00 PM CDT Telemedicine [facility] Allergy and Immunology [address] [facility] [address] [place] [address] Rupal Isabel MD CVID (common variable immunodeficiency) (HCC) (Primary Dx); Arpita's syndrome (HCC); Flexural atopic dermatitis 08/02/2024 Telephone [facility] Endocrinology Metabolism and Lipid [address] [facility] Advanced Medicine 5th [place] [address] [place] [address] Rose Marie Maurer RMA Prior [...] Never used. 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 -As of 12/18/23 at 1300, per [facility] [phone] - E. Coli. -Repeat blood cultures NGTD -Received cefepime; changed to cefuroxime to complete a 7 day course. Source is suspected to be UTI -TTE neg for vegetations Leukocytosis 12/17/2023 Assessment & Plan (12/17/2023 8:50 PM CDT): CBC at [facility] 12/15 WBC 20.5 (81% neutrophils). Ddx includes [...] (12/01/2020): Added automatically from request for surgery [id number] Anemia 11/28/2020 Assessment & Plan (12/03/2020 11:37 AM CDT): Hgb 4.8 MILL WORK and s/p 4U pRBCs total. Hgb now [...] cytopenia, his initial presentation for thrombocytopenia to [facility] was in 2013 (17 yo) with petechiae and plt count [...] responded to steroid and rituximab last time ([id number]). During his last admission for UTI, he [...] bid - received stress dose steroids at [facility] - continue pred 5 BID - per [...] an anti-21 hydroxylase antibody to rule out [place]'s as well as a low dose ACTH stim test at some point after 72 hours from last stress dose. He is very well appearing and does not have an indication for stress dosing at this time. - send anti-21 hydroxylase antibody (red top 2 ml) 2107 to [place] - consider ACTH stim test this admission [...] obtain anti-21 hydroxylase Ab to rule out [place]'s disease. Assessment & Plan (12/29/2019 8:18 AM [...] patient on 11/07. CVID (common variable immunodeficiency) ([facility] ) 04/16/2018 Assessment & Plan (12/19/2023 1:52 [...] AM CDT): Stable. Followed by endocrinology at [facility]. Currently on 150 mcg levothyroxine daily. - [...] Avoid concomitant administration of Levothyroxine with patient's MILL WORK iron. Separate dosing by at least 4 hours. Pediatric Endocrinology will continue to follow. 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 Never 10/11/2021 Do you belong to any clubs o r organizations such as jain groups, unions, fraternal or athletic groups, or [...] in a skilled nursing (including now)? No 10/11/2021 Personal Safety Answer Date Recorded Have you ever been in or are you currently in a harmful physical or emotional relationship or is someone making you feel afraid or unsafe? Patient unable to answer 12/18/2023 Sex and Gender Information Value Date Recorded Sex Assigned at Not on file Legal Sex Male 1:53 AM CURB AND GUTTER LABORER Gender Identity Male 10/02/2023 12:44 PM CDT Sexual Orientation Don't know 11/15/2020 1: 06 PM CDT Last Filed Vital Signs Vital Sign Reading Time Taken Comments Blood Pressure 117/79 05/13/2024 2:31 PM CURB AND GUTTER LABORER Pulse 90 05/13/2024 2:31 PM CURB AND GUTTER LABORER Temperature 36.9 C (98.5 F) 05/13/2024 2:31 PM CURB AND GUTTER LABORER Respiratory Rate 18 03/12/2024 2:48 PM CURB AND GUTTER LABORER Oxygen Saturation 96% 03/12/2024 2:48 PM CURB AND GUTTER LABORER Inhaled Oxygen Concentration - - Weight 60.8 kg (134 lb) 05/13/2024 2:31 PM CURB AND GUTTER LABORER Height 160 cm (5' 3) 05/13/2024 2:31 PM CURB AND GUTTER LABORER Body Mass Index 23.74 05/13/2024 2:31 PM CURB AND GUTTER LABORER Plan of Treatment Not on file Procedures Procedure Name Priority Date/Time Associated Diagnosis Comments HEPATITIS PANEL, ACUTE Routine 11/28/2020 5:33 PM CDT from Last 3 Months or Most Recently Relevant to Health Maintenance Results * Hepatitis panel, acute (11/28/2020 5:33 PM CDT) Hep A IgM Nonreactive Nonreactive [facility] Comment: Interpretive Data: If Hep A IgM Ab is reported as Equivocal, a new sample should be drawn in two weeks for testing. Current interpretive data was last revised on 19. Hep B core IgM Nonreactive Nonreactive [facility] Comment: Interpretive Data If HepB Core IgM Ab is reported as Equivocal, a new sample should be drawn in two weeks for testing. Current interpretive data was last revised on 19. Hep C Ab Nonreactive Nonreactive [facility] Comment:Antibodies to HCV no t detected. Does NOT exclude the possibility of recent exposure to HCV. HepBsAg Nonreactive Nonreactive [facility] Blood 11/28/2020 5:33 PM CDT 11/28/2020 5:53 PM CDT Jazzmine Mccartney NP LAB MICROBIO LOGY - GENERAL ORDERABLES Edited Result - Final [facility] Department [place] [address] from Last 3 Months or Most Recently Relevant to Health Maintenance Insurance [place] [facility] CHOICE [facility] HMO/PPO Address: [address] [address] [place] [address] [employer] OPEN ACCESS [place] [facility] CHOICE PLUS [facility] HMO/PPO Address: [address] [address] [place] [address] [employer] OPEN ACCESS IDPA [facility] [place]PO [place] [employer] OPEN ACCESS [facility] CHOICE PLUS [facility] HMO/PPO Address: [address] [address] [place] [address] Advance Directives For more information, please contact: [phone] Documents on File Type Date Recorded Patient Certified Novell Engineer Expl anation Power of Painter Touch Up 10/21/2021 12:58 PM ADVANCE DIRECTIVE 10/14/2019 12:35 [...] 5:09 PM 01/02/2021 6:56 PM Care Teams Cordwood Cutter Helper Relationship Specialty Start Date End Date Zoila Gleason MD [address] [address] PCP - General 09/29/16 Rupal Isabel MD [address] [place] [address] [address] [place] [address] Referring Physician Allergy and Immunology 01/11/19 Rekha Osborne MD [address] [place] [address] Medical Oncologist/Scientific Informatics Analyst Hematology 05/11/20
--- OUTSIDE RECORDS SUMMARY | 2024-08-31 14:57 | XMS_ITS | Encounter Summary ---
Author Organization [facility] Address [address] [place] [address] Phone Care Team Providers Care Clinical Secretary Name Role Phone Zoila Gleason MD Primary Care Provider [phone] Rupal Isabel MD Unavailable [phone] Rekha Osborne MD Unavailable [phone] Mayuri Lyn RN Unavailable Michelle Colin COMPUTER SCIENCE INTERN Unavailable [phone] Encounter Details Date Type Department Care Team [...] on file Legal Sex Male 1:53 AM PSYCHIATRIC LPN Gender Identity Male 10/02/2023 12:44 PM CDT [...] COVID: Suspected 04/21/2020 04/21/2020 04/21/2020 11:24 AM PSYCHIATRIC LPN Respiratory Infection (MICKEY), contact + droplet Comment:Automatically added due to negative COVID-19 result. 04/21/2020 04/21/2020 05/05/2020 3:0 6 AM PSYCHIATRIC LPN COVID: Suspected 04/21/2020 04/21/2020 04/21/2020 6:48 PM PSYCHIATRIC LPN COVID: Suspected 09/25/2020 09/25/2020 09/25/2020 10:11 AM CDT Rhino/Enterovirus 09/25/2020 09/25/2020 10/02/2020 3:05 AM CDT COVID: Recovered 11/29/2020 11/29/2020 03/29/2021 3:05 AM PSYCHIATRIC LPN COVID: Suspected 10/09/2021 10/09/2021 10/09/2021 9:37 AM CDT COVID: Suspected 03/06/2022 03/06/2022 03/06/2022 9:30 AM PSYCHIATRIC LPN RSV, droplet 03/06/2022 03/06/2022 03/13/2022 3:05 AM PSYCHIATRIC LPN COVID: Suspected 06/26/2022 06/26/2022 06/26/2022 5:59 PM CDT Coronavirus, droplet 06/26/2022 06/26/2022 023 3:06 AM CDT documented as of this encounter Care Teams Clinical Secretary Relationship Specialty Start Date End Date Zoila Gleason MD [address] [place] [address] PCP - General 09/29/16 Rupal Isabel MD [address] [place] [address] [address] Referring Physician Allergy and Immunology 01/11/19 Rekha Osborne MD [address] [place] [address] Medical Oncologist/Food And Drug Inspector Hematology 05/11/20 Mayuri Lyn, RN [address] [facility] [address] [place] [address] SHOP Outpatient Transplant Surgeon 12/04/20 01/04/21 Michelle Colin [facility] [address] [facility] ([facility]) Mailstop [phone] [place] [address] SHOP Outpatient Transplant Surgeon 10/19/21 11/16/21 documented as of this encounter
--- OUTSIDE RECORDS SUMMARY | 2024-08-31 14:57 | XMS_ITS | Encounter Summary ---
Author Organization [facility] Address [address] [place] [address] Care Team Providers Care Teacher Industrial Arts Name Role Phone Zoila Gleason MD Primary Care Provider Rupal Isabel MD Unavailable [phone] Rekha Osborne MD Unavailable [phone] Mayuri Lyn RN Unavailable [phone] Michelle Colin [facility] Unavailable [phone] Encounter Details Date Type Department Care Team (Late st Contact Info) Description 11/12/2020 Telephone [facility] [address] [place] [address] Aiyana Lovelace, ZOFIA Social History Tobacco [...] on file Legal Sex Male 1:53 AM NURSE SEXUAL ASSAULT Gender Identity Male 10/02/2023 12:44 PM CDT Sexual Orientation Don't know 11/15/2020 1: 06 PM CDT documented as of this encounter Plan of Treatment Not on file documented as of this encounter Visit Diagnoses Not on filedocumented in this encounter Additional Health Concerns Infection Onset Date Last Indicated Resolved Time COVID: Recovered 11/29/2020 11/29/2020 03/29/2021 3:05 AM NURSE SEXUAL ASSAULT COVID: Suspected 10/09/2021 10/09/2021 10/09/2021 9:37 AM CDT COVID: Suspected 03/06/2022 03/06/2022 03/06/2022 9:30 AM NURSE SEXUAL ASSAULT RSV, droplet 03/06/2022 03/06/2022 03/13/2022 3:05 AM NURSE SEXUAL ASSAULT COVID: Suspected 06/26/2022 06/26/2022 06/26/2022 5:59 PM CDT Coronavirus, droplet 06/26/2022 06/26/2022 023 3:06 AM CDT documented as of this encounter Care Teams Teacher Industrial Arts Relationship Specialty Start Date End Date Zoila Gleason MD [address] [place] [address] PCP - General 09/29/16 Rupal Isabel MD [address] [facility] [address] [place] [address] Referring Physician Allergy and Immunology 01/11/19 Rekha Osborne MD [address] [place] [address] Medical Oncologist/Trim Machine Adjuster Hematology 05/11/20 Mayuri Lyn, RN [address] [facility] [address] [place] [address] SHOP Outpatient Fur Repair Inspector 12/04/20 01/04/21 Michelle Colin LCSW [address] [facility] ([facility] Mailstop [phone] [place] [address] SHOP Outpatient Fur Repair Inspector 10/19/21 11/16/21 documented as of this encounter
--- OUTSIDE RECORDS SUMMARY | 2024-08-31 14:57 | XMS_ITS | Encounter Summary ---
Author Organization [facility] Address [address] [place] [address] Phone Care Team Providers Care Soft Work Wrapper Layer And Examiner Name Role Phone Zoila Gleason MD Primary Care Provider [phone] Rupal Isabel MD Unavailable [phone] Rekha Osborne MD Unavailable [phone] Encounter Details Date Type Department Care Team [...] in a usp (including now)? No 10/11/2021 Sex and Gender Information Value Date Recorded Sex Assigned at Not on file Legal Sex Male 1:53 AM BOAT CARPENTER Gender Identity Male 10/02/2023 12:44 PM CDT [...] documented as of this encounter Care Teams Soft Work Wrapper Layer And Examiner Relationship Specialty Start Date End Date Zoila Gleason MD [address] [place] [address] PCP - General 09/29/16 Rupal Isabel MD 10 [facility] [address] [place] [address] Referring Physician Allergy and Immunology 01/11/19 Rekha Osborne MD [address] [place] [address] Medical Oncologist/Life Skills Worker Hematology 05/11/20 documented as of this encounter
--- OUTSIDE RECORDS SUMMARY | 2024-08-31 14:57 | XMS_ITS | Encounter Summary ---
Author Organization [facility] Address [address] [place] [address] Phone Care Team Providers Care Steel Engraver Name Role Phone Zoila Gleason MD Primary Care Provider Rupal Isabel MD Unavailable [phone] Rekha Osborne MD Unavailable [phone] Mayuri Lyn RN Unavailable Michelle Colin GRADER MEAT Unavailable Encounter Details Date Type Department Care [...] on file Legal Sex Male 1:53 AM CRATE BUILDER Gender Identity Male 10/02/2023 12:44 PM [...] COVID: Suspected 04/21/2020 04/21/2020 04/21/2020 11:24 AM CRATE BUILDER Respiratory Infection (MICKEY), contact + droplet Comment:Automatically added due to negative COVID-19 result. 04/21/2020 04/21/2020 05/05/2020 3:0 6 AM CRATE BUILDER COVID: Suspected 04/21/2020 04/21/2020 04/21/2020 6:48 PM CRATE BUILDER COVID: Suspected 09/25/2020 09/25/2020 09/25/2020 10:11 AM CDT Rhino/Enterovirus 09/25/2020 09/25/2020 10/02/2020 3:05 AM CDT COVID: Recovered 11/29/2020 11/29/2020 03/29/2021 3:05 AM CRATE BUILDER COVID: Suspected 10/09/2021 10/09/2021 10/09/2021 9:37 AM CDT COVID: Suspected 03/06/2022 03/06/2022 03/06/2022 9:30 AM CRATE BUILDER RSV, droplet 03/06/2022 03/06/2022 03/13/2022 3:05 AM CRATE BUILDER COVID: Suspected 06/26/2022 06/26/2022 06/26/2022 5:59 PM CDT Coronavirus, droplet 06/26/2022 06/26/202207/03/ 023 3:06 AM CDT documented as of this encounter Care Teams Steel Engraver Relationship Specialty Start Date End Date Zoila Gleason MD [address] [place] [address] PCP - General 09/29/16 Rupal Isabel MD 10 [facility] [address] [place] [address] Referring Physician Allergy and Immunology 01/11/19 Rekha Osborne MD [address] [place] [address] Medical Oncologist/Breast Splitter Hematology 05/11/20 Mayuri Lyn, RN [address] [facility] [address] [place] [address] SHOP Outpatient Inspector Of Weights And Measures 12/04/20 01/04/21 Michelle Colin GRADER MEAT 45[address] [facility] ([facility]) Mailstop [phone] [place] [address] SHOP Outpatient Inspector Of Weights And Measures 10/19/21 11/16/21 documented as of this encounter
--- OUTSIDE RECORDS SUMMARY | 2024-08-31 14:57 | XMS_ITS | Encounter Summary ---
Author Organization [facility] Address [address] [place] [address] Phone Care Team Providers Care Engineering Programmer Name Role Phone Zoila Gleason MD Primary Care Provider Rupal Isabel MD Unavailable [phone] Rekha Osborne MD Unavailable [phone] Mayuri Lyn RN Unavailable Michelle Colin TRAINING INTERN Unavailable [phone] Encounter Details Date Type Department Care Team [...] on file Legal Sex Male 1:53 AM PRODUCTION MACHINE OPERATOR Gender Identity Male 10/02/2023 12:44 [...] COVID: Recovered 11/29/2020 11/29/2020 03/29/2021 3:05 AM PRODUCTION MACHINE OPERATOR COVID: Suspected 10/09/2021 10/09/2021 10/09/2021 9:37 AM CDT COVID: Suspected 03/06/2022 03/06/2022 03/06/2022 9:30 AM PRODUCTION MACHINE OPERATOR RSV, droplet 03/06/2022 03/06/2022 03/13/2022 3:05 AM PRODUCTION MACHINE OPERATOR COVID: Suspected 06/26/2022 06/26/2022 06/26/2022 5:59 PM CDT Coronavirus, droplet 06/26/2022 06/26/2022 023 3:06 AM CDT documented as of this encounter Care Teams Engineering Programmer Relationship Specialty Start Date End Date Zoila Gleason MD [address] [place], [place] [address] PCP - General 09/29/16 Rupal Isabel MD 10 [facility] [address] [place], [place] [address] Referring Physician Allergy and Immunology 01/11/19 Rekha Osborne MD [address] [place], [place] [address] Medical Oncologist/Health And Human Performance Professor Hematology 05/11/20 Mayuri Lyn, RN [address] [facility] [address] [place] [address] SHOP Outpatient Color Shop Helper 12/04/20 01/04/21 Michelle Colin, ROSALIE 45[address] [facility] ([facility] Mailstop [phone] [place] [address] SHOP Outpatient Color Shop Helper 10/19/21 11/16/21 documented as of this encounter
--- OUTSIDE RECORDS SUMMARY | 2024-08-31 14:57 | XMS_ITS | Encounter Summary ---
Author Organization [facility] Address [address] [place] [address] Phone Care Team Providers Care Rackman Name Role Phone Zoila Gleason MD Primary Care Provider Rupal Isabel MD Unavailable [phone] Rekha Osborne MD Unavailable [phone] Mayuri Lyn RN Unavailable Michelle Colin BRUSH MATERIAL PREPARER Unavailable [phone] Encounter Details Date Type Department Care Team [...] file Legal Sex Male 1:53 AM MACHINE STAMPER Gender Identity Male 10/02/2023 12:44 PM CDT [...] COVID: Suspected 04/21/2020 04/21/2020 04/21/2020 11:24 AM MACHINE STAMPER Respiratory Infection (MICKEY), contact + droplet Comment:Automatically added due to negative COVID-19 result. 04/21/2020 04/21/2020 05/05/2020 3:0 6 AM MACHINE STAMPER COVID: Suspected 04/21/2020 04/21/2020 04/21/2020 6:48 PM MACHINE STAMPER COVID: Suspected 09/25/2020 09/25/2020 09/25/2020 10:11 AM CDT Rhino/Enterovirus 09/25/2020 09/25/2020 10/02/2020 3:05 AM CDT COVID: Recovered 11/29/2020 11/29/2020 03/29/2021 3:05 AM MACHINE STAMPER COVID: Suspected 10/09/2021 10/09/2021 10/09/2021 9:37 AM CDT COVID: Suspected 03/06/2022 03/06/2022 03/06/2022 9:30 AM MACHINE STAMPER RSV, droplet 03/06/2022 03/06/2022 03/13/2022 3:05 AM MACHINE STAMPER COVID: Suspected 06/26/2022 06/26/2022 06/26/2022 5:59 PM CDT Coronavirus, droplet 06/26/2022 06/26/2022 023 3:06 AM CDT documented as of this encounter Care Teams Rackman Relationship Specialty Start Date End Date Zoila Gleason MD [address] [place] [address] PCP - General 09/29/16 Rupal Isabel MD [address] [place] [address] [address] Referring Physician Allergy and Immunology 01/11/19 Rekha Osborne MD [address] [place] [address] Medical Oncologist/Supervisor Agency Appointments Hematology 05/11/20 Mayuri Lyn, RN 4590 [facility] [address] [place] [address] SHOP Outpatient Ceo [place] 12/04/20 01/04/21 Michelle Colin [facility] 5490 [facility] ([facility]) Mailstop [phone] [place] [address] SHOP Outpatient Ceo [place] 10/19/21 11/16/21 documented as of this encounter
--- OUTSIDE RECORDS SUMMARY | 2024-08-31 14:57 | XMS_ITS | Encounter Summary ---
Author Organization [facility] Address [address] [place] [address] Phone Care Team Providers Care Geophysical Party Chief Name Role Phone Zoila Gleason MD Primary Care Provider [phone] Rupal Isabel MD Unavailable [phone] Rekha Osborne MD Unavailable [phone] Mayuri Lyn RN Unavailable Michelle Colin TECHNICAL ASSISTANT Unavailable [phone] Encounter Details Date Type Department Care Team [...] than three times a week 12/10/2020 Attends [employer] Services Not on file 12/10 Active Member [...] on file Legal Sex Male 1:53 AM DIABETOLOGIST Gender Identity Male 10/02/2023 12:44 PM CDT [...] COVID: Recovered 11/29/2020 11/29/2020 03/29/2021 3:05 AM DIABETOLOGIST COVID: Suspected 10/09/2021 10/09/2021 10/09/2021 9:37 AM CDT COVID: Suspected 03/06/2022 03/06/2022 03/06/2022 9:30 AM DIABETOLOGIST RSV, droplet 03/06/2022 03/06/2022 03/13/2022 3:05 AM DIABETOLOGIST COVID: Suspected 06/26/2022 06/26/2022 06/26/2022 5:59 PM CDT Coronavirus, droplet 06/26/2022 06/26/2022 023 3:06 AM CDT documented as of this encounter Care Teams Geophysical Party Chief Relationship Specialty Start Date End Date Zoila Gleason MD [address] [place] [address] PCP - General 09/29/16 Rupal Isabel MD 10 [facility] [address] [place] [address] Referring Physician Allergy and Immunology 01/11/19 Rekha Osborne MD [address] [place] [address] Medical Oncologist/Middle School Coach Hematology 05/11/20 Mayuri Lyn, RN 4590 [facility] [address] [place] [address] SHOP Outpatient Proposal Lead Writer 12/04/20 01/04/21 Michelle Colin LCSW 4590 [facility] ([facility] Mailstop [phone] [place] [address] SHOP Outpatient Proposal Lead Writer 10/19/21 11/16/21 documented as of this encounter
--- OUTSIDE RECORDS SUMMARY | 2024-08-31 14:57 | XMS_ITS | Encounter Summary ---
Author Organization [facility] Healthcare Address [address] [place] [address] Care Team Providers Care Crop Duster Name Role Phone Zoila Gleason MD Primary Care Provider [phone] Rupal Isabel MD Unavailable Rekha Osborne MD Unavailable Mayuri Lyn RN Unavailable [phone] Michelle ColinW Unavailable [phone] Encounter Details Date Type Department Care Team (Late st Contact Info) Description 03/31/2020 Telephone [facility] [place] [address] Wendy Storm, RDMS Social History [...] on file Legal Sex Male 1:53 AM CHAIN BUILDER Gender Identity Male 10/02/2023 12:44 PM CDT Sexual Orientation Don't know 11/15/2020 1: 06 PM CDT documented as of this encounter Plan of Treatment Not on file documented as of this encounter Visit Diagnoses Not on filedocumented in this encounter Additional Health Concerns Infection Onset Date Last Indicated Resolved Time COVID: Suspected 04/21/2020 04/21/2020 04/21/2020 11:24 AM CHAIN BUILDER Respiratory Infection (MICKEY), contact + droplet Comment:Automatically added due to negative COVID-19 result. 04/21/2020 04/21/2020 05/05/2020 3:0 6 AM CHAIN BUILDER COVID: Suspected 04/21/2020 04/21/2020 04/21/2020 6:48 PM CHAIN BUILDER COVID: Suspected 09/25/2020 09/25/2020 09/25/2020 10:11 AM CDT Rhino/Enterovirus 09/25/2020 09/25/2020 10/02/2020 3:05 AM CDT COVID: Recovered 11/29/2020 11/29/2020 03/29/2021 3:05 AM CHAIN BUILDER COVID: Suspected 10/09/2021 10/09/2021 10/09/2021 9:37 AM CDT COVID: Suspected 03/06/2022 03/06/2022 03/06/2022 9:30 AM CHAIN BUILDER RSV, droplet 03/06/2022 03/06/2022 03/13/2022 3:05 AM CHAIN BUILDER COVID: Suspected 06/26/2022 06/26/2022 06/26/2022 5:59 PM CDT Coronavirus, droplet 06/26/2022 06/26/2022 023 3:06 AM CDT documented as of this encounter Care Teams Crop Duster Relationship Specialty Start Date End Date Zoila Gleason MD [address] [place] [address] PCP - General 09/29/16 Rupal Isabel MD 10 [facility] [address] [place] [address] Referring Physician Allergy and Immunology 01/11/19 Rekha Osborne MD [address] [place] [address] Medical Oncologist/Delivery Aide Hematology 05/11/20 Mayuri Lyn, RN 4590 [facility] [address] [place] [address] SHOP Outpatient Ic Design Engineer 12/04/20 01/04/21 Michelle Colin LCSW 4590 [facility] ([facility]) Mailstop [phone] [place] [address] SHOP Outpatient Ic Design Engineer 10/19/21 11/16/21 documented as of this encounter
--- OUTSIDE RECORDS SUMMARY | 2024-08-31 14:57 | XMS_ITS | Clinical Summary ---
Author Organization [facility] Address [address] [place] [address] Care Team Providers Care Photographic Reproduction Technician Name Role Phone Zoila Gleason MD Primary Care Provider [phone] Rupal Isabel MD Unavailable [phone] Rekha Osborne MD Unavailable [phone] Allergies Active Allergy Reactions Criticality Noted Date [...] Never used. 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 -As of 12/18/23 at 1300, per [facility] [phone] - E. Coli. -Repeat blood cultures NGTD -Received cefepime; changed to cefuroxime to complete a 7 day course. Source is suspected to be UTI -TTE neg for vegetations Leukocytosis 12/17/2023 Assessment & Plan (12/17/2023 8:50 PM CDT): CBC at [facility] 12/15 WBC 20.5 (81% neutrophils). Ddx includes [...] (12/01/2020): Added automatically from request for surgery [id number] Anemia 11/28/2020 Assessment & Plan (12/03/2020 11:37 AM CDT): Hgb 4.8 WALL ATTENDANT and s/p 4U pRBCs total. Hgb now [...] cytopenia, his initial presentation for thrombocytopenia to [facility] was in 2012 (17 yo) with petechiae [...] responded to steroid and rituximab last time ([id number]). During his last admission for UTI, he [...] bid - received stress dose steroids at [facility] - continue pred 5 BID - per [...] antibody (red top 2 ml) 2107 to [place] - consider ACTH stim test this admission [...] obtain anti-21 hydroxylase Ab to rule out [place]'s disease. Assessment & Plan (12/29/2019 8:18 AM [...] on 11/07. 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 Followed by endocrinology at [facility]. Currently on 150 mcg levothyroxine daily. - [...] Avoid concomitant administration of Levothyroxine with patient's WALL ATTENDANT iron. Separate dosing by at least 4 hours. Pediatric Endocrinology will continue to follow. 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 Allergy and Immunology [address] [place] [address] Rupal Isabel MD CVID (common variable immunodeficiency) (HCC) (Primary Dx); Arpita's syndrome (HCC); Flexural atopic dermatitis 08/02/[address] 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 Never 10/11/2021 Do you belong to any clubs o r organizations such as cheondoism groups, unions, fraternal or athletic groups, or [...] on file Legal Sex Male 1:53 AM PHARMACEUTICAL ASSISTANT Gender Identity Male 10/02/2023 12:44 PM CDT Sexual Orientation Don't know 11/15/2020 1: 06 PM CDT Obstetrics History Last Filed Vital Signs Vital Sign Reading Time Taken Comments Blood Pressure 117/79 05/13/2024 2:31 PM PHARMACEUTICAL ASSISTANT Pulse 90 05/13/2024 2:31 PM PHARMACEUTICAL ASSISTANT Temperature 36.9 C (98.5 F) 05/13/2024 2:31 PM PHARMACEUTICAL ASSISTANT Respiratory Rate 18 03/12/2024 2:48 PM PHARMACEUTICAL ASSISTANT Oxygen Saturation 96% 03/12/2024 2:48 PM PHARMACEUTICAL ASSISTANT Inhaled Oxygen Concentration - - Weight 60.8 kg (134 lb) 05/13/2024 2:31 PM PHARMACEUTICAL ASSISTANT Height 160 cm (5' 3) 05/13/2024 2:31 PM PHARMACEUTICAL ASSISTANT Body Mass Index 23.74 05/13/2024 2:31 PM PHARMACEUTICAL ASSISTANT Plan of Treatment Health Maintenance Due [...] PM CDT) Hep A IgM Nonreactive Nonreactive [facility] Comment: Interpretive Data: If Hep A IgM Ab is reported as Equivocal, a new sample should be drawn in two weeks for testing. Current interpretive data was last revised on 19. Hep B core IgM Nonreactive Nonreactive [facility] Comment: Interpretive Data If HepB Core [...] - GENERAL ORDERABLES Edited Result - Final [facility] [place] [address] from Last 3 Months or Most Recently Relevant to Health Maintenance [place] [facility] CHOICE [facility]US [facility] HMO/PPO Address: [address] [address] [place] [address] [employer] [place] [facility] CHOICE [facility]US [facility] HMO/PPO Address: [address] [address] [place] [address] [employer] OPEN ACCESS [place] [employer] [place] ACCESS [facility] CHOICE PLUS [facility] HMO/PPO Address: [address] [address] [place] [address] Advance Directives For more information, please contact: [phone] Documents on File Type Date Recorded Patient Herpetologist Expl anation Power of Laminating Press Operator 10/21/2021 12:58 PM ADVANCE DIRECTIVE 10/14/2019 [...] 5:09 PM 01/02/2021 6:56 PM Care Teams Photographic Reproduction Technician Relationship Specialty Start Date End Date Zoila Gleason MD [address] [place] [address] PCP - General 09/29/16 Rupal Isabel MD [address] [place] [address] [address] [place] [address] Referring Physician Allergy and Immunology 01/11/19 Rekha Osborne MD [address] [place] [address] Medical Oncologist/Financial Rep Hematology 05/11/20
--- OUTSIDE RECORDS SUMMARY | 2024-08-31 14:57 | XMS_ITS | Encounter Summary ---
Author Organization [facility] Address [address] [place] [address] Phone Care Team Providers Care Hand Riveter Name Role Phone Zoila Gleason MD Primary Care Provider Rupal Isabel MD Unavailable [phone] Rekha Osborne MD Unavailable [phone] Mayuri Lyn RN Unavailable Michelle Colin DIRECTOR OF SUSTAINABLE DESIGN Unavailable Encounter Details Date Type Department Care [...] on file Legal Sex Male 1:53 AM GYMNASTICS COACH OR INSTRUCTOR Gender Identity Male 10/02/2023 12:44 PM [...] COVID: Suspected 04/21/2020 04/21/2020 04/21/2020 11:24 AM GYMNASTICS COACH OR INSTRUCTOR Respiratory Infection (MICKEY), contact + droplet Comment:Automatically added due to negative COVID-19 result. 04/21/2020 04/21/2020 05/05/2020 3:0 6 AM GYMNASTICS COACH OR INSTRUCTOR COVID: Suspected 04/21/2020 04/21/2020 04/21/2020 6:48 PM GYMNASTICS COACH OR INSTRUCTOR COVID: Suspected 09/25/2020 09/25/2020 09/25/2020 10:11 AM CDT Rhino/Enterovirus 09/25/2020 09/25/2020 10/02/2020 3:05 AM CDT COVID: Recovered 11/29/2020 11/29/2020 03/29/2021 3:05 AM GYMNASTICS COACH OR INSTRUCTOR COVID: Suspected 10/09/2021 10/09/2021 10/09/2021 9:37 AM CDT COVID: Suspected 03/06/2022 03/06/2022 03/06/2022 9:30 AM GYMNASTICS COACH OR INSTRUCTOR RSV, droplet 03/06/2022 03/06/2022 03/13/2022 3:05 AM GYMNASTICS COACH OR INSTRUCTOR COVID: Suspected 06/26/2022 06/26/2022 06/26/2022 5:59 PM CDT Coronavirus, droplet 06/26/2022 06/26/2022 023 3:06 AM CDT documented as of this encounter Care Teams Hand Riveter Relationship Specialty Start Date End Date Zoila Gleason MD [address] [place] [address] PCP - General 09/29/16 Rupal Isabel MD [address] [place] [address] [address] Referring Physician Allergy and Immunology 01/11/19 Rekha Osborne MD [address] [place] [address] Medical Oncologist/Organ Pipe Finisher Hematology 05/11/20 Mayuri Lyn, RN 4590 [facility] [address] [place] [address] SHOP Outpatient Inbound Call Center Representative 12/04/20 01/04/21 Michelle Colin [facility] 6[address] [facility] ([facility]) Mailstop [phone] [place] [address] SHOP Outpatient Inbound Call Center Representative 10/19/21 11/16/21 documented as of this encounter
--- OUTSIDE RECORDS SUMMARY | 2024-08-31 14:57 | XMS_ITS | Encounter Summary ---
Author Organization [facility] Address [address] [place] [address] Phone Care Team Providers Care Barge Hand Name Role Phone Zoila Gleason MD Primary Care Provider Rupal Isabel MD Unavailable [phone] Rekha Osborne MD Unavailable [phone] Mayuri yLn RN Unavailable Michelle Colin SPORTS ANCHOR Unavailable Encounter Details Date Type Department Care [...] file Legal Sex Male 1:53 AM INDUSTRIAL TECHNOLOGY TEACHER Gender Identity Male 10/02/2023 12:44 PM [...] COVID: Recovered 11/29/2020 11/29/2020 03/29/2021 3:05 AM INDUSTRIAL TECHNOLOGY TEACHER COVID: Suspected 10/09/2021 10/09/2021 10/09/2021 9:37 AM CDT COVID: Suspected 03/06/2022 03/06/2022 03/06/2022 9:30 AM INDUSTRIAL TECHNOLOGY TEACHER RSV, droplet 03/06/2022 03/06/2022 03/13/2022 3:05 AM INDUSTRIAL TECHNOLOGY TEACHER COVID: Suspected 06/26/2022 06/26/2022 06/26/2022 5:59 PM CDT Coronavirus, droplet 06/26/2022 06/26/2022 023 3:06 AM CDT documented as of this encounter Care Teams Barge Hand Relationship Specialty Start Date End Date Zoila Gleason MD [address] [place] [address] PCP - General 09/29/16 Rupal Isabel MD [address] [place] [address] [address] [place] [address] Referring Physician Allergy and Immunology 01/11/19 Rekha Osborne MD [address] [place] [address] Medical Oncologist/Harness Cutter Hematology 05/11/20 Mayuri Lyn, RN 4590 [facility] [address] [place] [address] SHOP Outpatient Global Compensation Manager 12/04/20 01/04/21 Michelle Colin LCSW 4590 [facility] ([facility] Mailstop [phone] [place] [address] SHOP Outpatient Global Compensation Manager 10/19/21 11/16/21 documented as of this encounter
--- OUTSIDE RECORDS SUMMARY | 2024-08-31 14:58 | XMS_ITS | Encounter Summary ---
Author Organization [facility] Address [address] [place] [address] Phone Care Team Providers Care Computer Systems Consultant Name Role Phone Zoila Gleason MD Primary Care Provider Rupal Isabel MD Unavailable [phone] Rekha Osborne MD Unavailable [phone] Mayuri Lyn RN Unavailable [phone] Michelle Colin SUPERVISOR METAL FABRICATING Unavailable Encounter Details Date Type Department Care [...] on file Legal Sex Male 1:53 AM UPPER LINING CEMENTER Gender Identity Male 10/02/2023 12:44 PM CDT [...] COVID: Recovered 11/29/2020 11/29/2020 03/29/2021 3:05 AM UPPER LINING CEMENTER COVID: Suspected 10/09/2021 10/09/2021 10/09/2021 9:37 AM CDT COVID: Suspected 03/06/2022 03/06/2022 03/06/2022 9:30 AM UPPER LINING CEMENTER RSV, droplet 03/06/2022 03/06/2022 03/13/2022 3:05 AM UPPER LINING CEMENTER COVID: Suspected 06/26/2022 06/26/2022 06/26/2022 5:59 PM CDT Coronavirus, droplet 06/26/2022 06/26/2022 023 3:06 AM CDT documented as of this encounter Care Teams Computer Systems Consultant Relationship Specialty Start Date End Date Zoila Gleason MD [address] [place] [address] PCP - General 09/29/16 Rupal Isabel MD [address] [place] [address] [address] [place] [address] Referring Physician Allergy and Immunology 01/11/19 Rekha Osborne MD [address] [place] [address] Medical Oncologist/Rn Telephone Triage Hematology 05/11/20 Mayuri Lyn, RN 4590 [facility] [address] [place] [address] SHOP Outpatient Pvc Monitor 12/04/20 01/04/21 Michelle Colin LCSW 4590 [facility] ([facility]) Mailstop [phone] [place] [address] SHOP Outpatient Pvc Monitor 10/19/21 11/16/21 documented as of this encounter
--- OUTSIDE RECORDS SUMMARY | 2024-08-31 14:58 | XMS_ITS | Encounter Summary ---
Author Organization [facility] Address [address] [place] [address] Phone Care Team Providers Care Carpet Repairer Name Role Phone Zoila Gleason MD Primary Care Provider Rupal Isabel MD Unavailable [phone] Rekha Osborne MD Unavailable [phone] Mayuri Lyn RN Unavailable Michelle Colin STATION TENDER Unavailable Encounter Details Date Type Department Care [...] file Legal Sex Male 1:53 AM MANAGER PATHOLOGY Gender Identity Male 10/02/2023 12:44 PM CDT [...] Suspected 04/21/2020 04/21/2020 04/21/2020 11:24 AM MANAGER PATHOLOGY Respiratory Infection (MICKEY), contact + droplet Comment:Automatically added due to negative COVID-19 result. 04/21/2020 04/21/2020 05/05/2020 3:0 6 AM MANAGER PATHOLOGY COVID: Suspected 04/21/2020 04/21/2020 04/21/2020 6:48 PM MANAGER PATHOLOGY COVID: Suspected 09/25/2020 09/25/2020 09/25/2020 10:11 AM CDT Rhino/Enterovirus 09/25/2020 09/25/2020 10/02/2020 3:05 AM CDT COVID: Recovered 11/29/2020 11/29/2020 03/29/2021 3:05 AM MANAGER PATHOLOGY COVID: Suspected 10/09/2021 10/09/2021 10/09/2021 9:37 AM CDT COVID: Suspected 03/06/2022 03/06/2022 03/06/2022 9:30 AM MANAGER PATHOLOGY RSV, droplet 03/06/2022 03/06/2022 03/13/2022 3:05 AM MANAGER PATHOLOGY COVID: Suspected 06/26/2022 06/26/2022 06/26/2022 5:59 PM CDT Coronavirus, droplet 06/26/2022 06/26/2022 023 3:06 AM CDT documented as of this encounter Care Teams Carpet Repairer Relationship Specialty Start Date End Date Zoila Gleason MD [address] [place] [address] PCP - General 09/29/16 Rupal Isabel MD 10 [facility] [address] [address] Referring Physician Allergy and Immunology 01/11/19 Rekha Osborne MD [address] [place] [address] Medical Oncologist/Tire Builder Operator Hematology 05/11/20 Mayuri Lyn, RN 4590 [facility] [address] [place] [address] SHOP Outpatient Plug Maker 12/04/20 01/04/21 Michelle Colin LCSW 3657 [facility] ([facility]) Mailstop [phone] [place] [address] SHOP Outpatient Plug Maker 10/19/21 11/16/21 documented as of this encounter
--- OUTSIDE RECORDS SUMMARY | 2024-08-31 14:58 | XMS_ITS | Encounter Summary ---
Author Organization [facility] Address [address] [place] [address] Phone Care Team Providers Care Photographic Enlarger Operator Name Role Phone Zoila Gleason MD Primary Care Provider [phone] Rupal Isabel MD Unavailable [phone] Rekha Osborne MD Unavailable [phone] Mayuri Lyn RN Unavailable Michelle Colin REGIONAL SALES DIRECTOR Unavailable [phone] Encounter Details Date Type Department Care Team [...] on file Legal Sex Male 1:53 AM HOSPITAL MANAGER Gender Identity Male 10/02/2023 12:44 PM [...] COVID: Recovered 11/29/2020 11/29/2020 03/29/2021 3:05 AM HOSPITAL MANAGER COVID: Suspected 10/09/2021 10/09/2021 10/09/2021 9:37 AM CDT COVID: Suspected 03/06/2022 03/06/2022 03/06/2022 9:30 AM HOSPITAL MANAGER RSV, droplet 03/06/2022 03/06/2022 03/13/2022 3:05 AM HOSPITAL MANAGER COVID: Suspected 06/26/2022 06/26/2022 06/26/2022 5:59 PM CDT Coronavirus, droplet 06/26/2022 06/26/2022 023 3:06 AM CDT documented as of this encounter Care Teams Photographic Enlarger Operator Relationship Specialty Start Date End Date Zoila Gleason MD [address] [place] [address] PCP - General 09/29/16 Rupal Isabel MD [address] [place] [address] [address] [place] [address] Referring Physician Allergy and Immunology 01/11/19 Rekha Osborne MD [address] [place] [address] Medical Oncologist/Behaviorist Hematology 05/11/20 Mayuri Lyn, RN 4590 [facility] [address] [place] [address] SHOP Outpatient Legal Records Clerk 12/04/20 01/04/21 Michelle Colin LCSW 4590 [facility] ([facility]) Mailstop [phone] [place] [address] SHOP Outpatient Legal Records Clerk 10/19/21 11/16/21 documented as of this encounter
--- OUTSIDE RECORDS SUMMARY | 2024-08-31 14:58 | XMS_ITS | Encounter Summary ---
Author Organization [facility] Address [address] [place] [address] Phone Care Team Providers Care Dialysis Social Worker Name Role Phone Zoila Gleason MD Primary Care Provider Rupal Isabel MD Unavailable [phone] Rekha Osborne MD Unavailable [phone] Mayuri Lyn RN Unavailable [phone] Michelle Colin IMAGING CENTER MANAGER Unavailable Encounter Details Date Type Department [...] file Legal Sex Male 1:53 AM BOAT CAPTAIN Gender Identity Male 10/02/2023 12:44 PM CDT [...] COVID: Recovered 11/29/2020 11/29/2020 03/29/2021 3:05 AM BOAT CAPTAIN COVID: Suspected 10/09/2021 10/09/2021 10/09/2021 9:37 AM CDT COVID: Suspected 03/06/2022 03/06/2022 03/06/2022 9:30 AM BOAT CAPTAIN RSV, droplet 03/06/2022 03/06/2022 03/13/2022 3:05 AM BOAT CAPTAIN COVID: Suspected 06/26/2022 06/26/2022 06/26/2022 5:59 PM CDT Coronavirus, droplet 06/26/2022 06/26/2022 023 3:06 AM CDT documented as of this encounter Care Teams Dialysis Social Worker Relationship Specialty Start Date End Date Zoila Gleason MD [address] [place] [address] PCP - General 09/29/16 Rupal Isabel MD [address] [place] [address] [address] [place] [address] Referring Physician Allergy and Immunology 01/11/19 Rekha Osborne MD [address] [place] [address] Medical Oncologist/Property Worker Hematology 05/11/20 Mayuri Lyn, RN 4590 [facility] [address] [place] [address] SHOP Outpatient Mold Presser 12/04/20 01/04/21 Michelle Colin LCSW 4590 [facility] ([facility] Mailstop [phone] [place] [address] SHOP Outpatient Mold Presser 10/19/21 11/16/21 documented as of this encounter
--- OUTSIDE RECORDS SUMMARY | 2024-08-31 14:58 | XMS_ITS | Encounter Summary ---
Author Organization [facility] Address [address] [place] [address] Phone Care Team Providers Care Human Relations Manager Name Role Phone Zoila Gleason MD Primary Care Provider Rupal Isabel MD Unavailable [phone] Rekha Osborne MD Unavailable [phone] Mayuri Lyn RN Unavailable Michelle Colin FUDGER Unavailable Encounter Details Date Type Department Care [...] on file Legal Sex Male 1:53 AM ICING MIXER Gender Identity Male 10/02/2023 12:44 PM CDT [...] COVID: Recovered 11/29/2020 11/29/2020 03/29/2021 3:05 AM ICING MIXER COVID: Suspected 10/09/2021 10/09/2021 10/09/2021 9:37 AM CDT COVID: Suspected 03/06/2022 03/06/2022 03/06/2022 9:30 AM ICING MIXER RSV, droplet 03/06/2022 03/06/2022 03/13/2022 3:05 AM ICING MIXER COVID: Suspected 06/26/2022 06/26/2022 06/26/2022 5:59 PM CDT Coronavirus, droplet 06/26/2022 06/26/2022 023 3:06 AM CDT documented as of this encounter Care Teams Human Relations Manager Relationship Specialty Start Date End Date Zoila Gleason MD [address] [place] [address] PCP - General 09/29/16 Rupal Isabel MD [address] [place] [address] [address] [place] [address] Referring Physician Allergy and Immunology 01/11/19 Rekha Osborne MD [address] [place] [address] Medical Oncologist/Casework Supervisor Hematology 05/11/20 Mayuri Lyn, RN 4590 [facility] [address] [place] [address] SHOP Outpatient Sql Server Architect 12/04/20 01/04/21 Michelle Colin LCSW 4590 [facility] ([facility] Mailstop [phone] [place] [address] SHOP Outpatient Sql Server Architect 10/19/21 11/16/21 documented as of this encounter
--- OUTSIDE RECORDS SUMMARY | 2024-08-31 14:58 | XMS_ITS | Encounter Summary ---
Author Organization [facility] Address [address] [place] [address] Phone Care Team Providers Care Hosiery Pairer Name Role Phone Zoila Gleason MD Primary Care Provider Rupal Isabel MD Unavailable [phone] Rekha Osborne MD Unavailable [phone] Mayuri Lyn RN Unavailable [phone] Michelle Colin SALES AND MARKETING INTERN Unavailable Encounter Details Date Type Department Care [...] on file Legal Sex Male 1:53 AM DRAWER IN JACQUARD LOOM Gender Identity Male 10/02/2023 12:44 PM CDT [...] COVID: Recovered 11/29/2020 11/29/2020 03/29/2021 3:05 AM DRAWER IN JACQUARD LOOM COVID: Suspected 10/09/2021 10/09/2021 10/09/2021 9:37 AM CDT COVID: Suspected 03/06/2022 03/06/2022 03/06/2022 9:30 AM DRAWER IN JACQUARD LOOM RSV, droplet 03/06/2022 03/06/2022 03/13/2022 3:05 AM DRAWER IN JACQUARD LOOM COVID: Suspected 06/26/2022 06/26/2022 06/26/2022 5:59 PM CDT Coronavirus, droplet 06/26/2022 06/26/2022 023 3:06 AM CDT documented as of this encounter Care Teams Hosiery Pairer Relationship Specialty Start Date End Date Zoila Gleason MD [address] [place] [address] PCP - General 09/29/16 Rupal Isabel MD [address] [place] [address] [address] [place] [address] Referring Physician Allergy and Immunology 01/11/19 Rekha Osborne MD [address] [place] [address] Medical Oncologist/Therapeutic Specialist Hematology 05/11/20 Mayuri Lyn, RN [address] [facility] [address] [place] [address] SHOP Outpatient Hot Plate Plywood Press Feeder 12/04/20 01/04/21 Michelle Colin LCSW 4590 [facility] ([facility] Mailstop [phone] [place] [address] SHOP Outpatient Hot Plate Plywood Press Feeder 10/19/21 11/16/21 documented as of this encounter
--- OUTSIDE RECORDS SUMMARY | 2024-08-31 14:58 | XMS_ITS | Encounter Summary ---
Author Organization [facility] Address [address] [place] [address] Phone Care Team Providers Care Manager Strategic Development Name Role Phone Zoila Gleason MD Primary Care Provider Rupal Isabel MD Unavailable [phone] Rekha Osborne MD Unavailable [phone] Mayuri Lyn RN Unavailable [phone] Michelle Colin BEAD CUTTER Unavailable [phone] Encounter Details Date Type Department Care Team [...] on file Legal Sex Male 1:53 AM INTER FOLD ROLL CUTTER Gender Identity Male 10/02/2023 12:44 PM CDT [...] COVID: Recovered 11/29/2020 11/29/2020 03/29/2021 3:05 AM INTER FOLD ROLL CUTTER COVID: Suspected 10/09/2021 10/09/2021 10/09/2021 9:37 AM CDT COVID: Suspected 03/06/2022 03/06/2022 03/06/2022 9:30 AM INTER FOLD ROLL CUTTER RSV, droplet 03/06/2022 03/06/2022 03/13/2022 3:05 AM INTER FOLD ROLL CUTTER COVID: Suspected 06/26/2022 06/26/2022 06/26/2022 5:59 PM CDT Coronavirus, droplet 06/26/2022 06/26/2022 023 3:06 AM CDT documented as of this encounter Care Teams Manager Strategic Development Relationship Specialty Start Date End Date Zoila Gleason MD [address] [place] [address] PCP - General 09/29/16 Rupal Isabel MD [address] [place] [address] [address] [place] [address] Referring Physician Allergy and Immunology 01/11/19 Rekha Osborne MD [address] [place] [address] Medical Oncologist/Musical Instrument Maker Hematology 05/11/20 Mayuri Lyn, RN 4590 [facility] [address] [place] [address] SHOP Outpatient Wallpaper Printer Helper 12/04/20 01/04/21 Michelle Colin LCSW 4590 [facility] ([facility] [place]) Mailstop [phone] [place] [address] SHOP Outpatient Wallpaper Printer Helper 10/19/21 11/16/21 documented as of this encounter
--- OUTSIDE RECORDS SUMMARY | 2024-08-31 14:58 | XMS_ITS | Encounter Summary ---
Author Organization [facility] Address [address] [place] [address] Phone Care Team Providers Care Pt Escort Name Role Phone Zoila Gleason MD Primary Care Provider Rupal Isabel MD Unavailable [phone] Rekha Osborne MD Unavailable [phone] Mayuri Lyn RN Unavailable [phone] Michelle Colin TRANSPORT TECH Unavailable Encounter Details Date Type Department Care [...] than three times a week 12/10/2020 Attends [employer] Not on file 12/10 Active Member [...] on file Legal Sex Male 1:53 AM WELDING EQUIPMENT REPAIRER Gender Identity Male 10/02/2023 12:44 PM [...] COVID: Recovered 11/29/2020 11/29/2020 03/29/2021 3:05 AM WELDING EQUIPMENT REPAIRER COVID: Suspected 10/09/2021 10/09/2021 10/09/2021 9:37 AM CDT COVID: Suspected 03/06/2022 03/06/2022 03/06/2022 9:30 AM WELDING EQUIPMENT REPAIRER RSV, droplet 03/06/2022 03/06/2022 03/13/2022 3:05 AM WELDING EQUIPMENT REPAIRER COVID: Suspected 06/26/2022 06/26/2022 06/26/2022 5:59 PM CDT Coronavirus, droplet 06/26/2022 06/26/2022 023 3:06 AM CDT documented as of this encounter Care Teams Pt Escort Relationship Specialty Start Date End Date Zoila Gleason MD [address] [place] [address] PCP - General 09/29/16 Rupal Isabel MD 10 [facility] [address] [place] [address] Referring Physician Allergy and Immunology 01/11/19 Rekha Osborne MD [address] [place] [address] Medical Oncologist/Manager Food Safety Hematology 05/11/20 Mayuri Lyn, RN 4590 [facility] [address] [place] [address] SHOP Outpatient Pediatric Associate 12/04/20 01/04/21 Michelle Colin LCSW 4590 [facility] ([facility] Mailstop [phone] [place] [address] SHOP Outpatient Pediatric Associate 10/19/21 11/16/21 documented as of this encounter
--- OUTSIDE RECORDS SUMMARY | 2024-08-31 14:58 | XMS_ITS | Encounter Summary ---
Author Organization [facility] Address [address] [place] [address] Phone Care Team Providers Care Soil Fertility Specialist Name Role Phone Zoila Gleason MD Primary Care Provider [phone] Rupal Isabel MD Unavailable [phone] Rekha Osborne MD Unavailable [phone] Mayuri Lyn RN Unavailable [phone] Michelle Colin MANUFACTURING PLANT CONTROLLER Unavailable [phone] Encounter Details Date Type Department Care Team [...] on file Legal Sex Male 1:53 AM PATTERN GENERATOR OPERATOR Gender Identity Male 10/02/2023 12:44 PM [...] COVID: Recovered 11/29/2020 11/29/2020 03/29/2021 3:05 AM PATTERN GENERATOR OPERATOR COVID: Suspected 10/09/2021 10/09/2021 10/09/2021 9:37 AM CDT COVID: Suspected 03/06/2022 03/06/2022 03/06/2022 9:30 AM PATTERN GENERATOR OPERATOR RSV, droplet 03/06/2022 03/06/2022 03/13/2022 3:05 AM PATTERN GENERATOR OPERATOR COVID: Suspected 06/26/2022 06/26/2022 06/26/2022 5:59 PM CDT Coronavirus, droplet 06/26/2022 06/26/2022 023 3:06 AM CDT documented as of this encounter Care Teams Soil Fertility Specialist Relationship Specialty Start Date End Date Zoila Gleason MD [address] [place] [address] PCP - General 09/29/16 Rupal Isabel MD [address] [place] [address] [facility] [address] [place] [address] Referring Physician Allergy and Immunology 01/11/19 Rekha Osborne MD [address] [place] [address] Medical Oncologist/Vault Manager Hematology 05/11/20 Mayuri Lyn, RN 4590 [facility] [address] [place] [address] SHOP Outpatient Caustic Liquor Maker 12/04/20 01/04/21 Michelle Colin LCSW 4590 [facility] ([facility] Mailstop [phone] [place] [address] SHOP Outpatient Caustic Liquor Maker 10/19/21 11/16/21 documented as of this encounter
--- OUTSIDE RECORDS SUMMARY | 2024-08-31 14:58 | XMS_ITS | Encounter Summary ---
Author Organization [facility] Address [address] [place] [address] Phone Care Team Providers Care Slider Assembler Name Role Phone Zoila Gleason MD Primary Care Provider [phone] Rupal Isabel MD Unavailable [phone] Rekha Osborne MD Unavailable [phone] Mayuri Lyn RN Unavailable Michelle Colin SENIOR PROPERTY MANAGER Unavailable Encounter Details Date Type Department [...] on file Legal Sex Male 1:53 AM CREDIT CLERK Gender Identity Male 10/02/2023 12:44 PM [...] COVID: Recovered 11/29/2020 11/29/2020 03/29/2021 3:05 AM CREDIT CLERK COVID: Suspected 10/09/2021 10/09/2021 10/09/2021 9:37 AM CDT COVID: Suspected 03/06/2022 03/06/2022 03/06/2022 9:30 AM CREDIT CLERK RSV, droplet 03/06/2022 03/06/2022 03/13/2022 3:05 AM CREDIT CLERK COVID: Suspected 06/26/2022 06/26/2022 06/26/2022 5:59 PM CDT Coronavirus, droplet 06/26/2022 06/26/2022 023 3:06 AM CDT documented as of this encounter Care Teams Slider Assembler Relationship Specialty Start Date End Date Zoila Gleason MD [address] [place] [address] PCP - General 09/29/16 Rupal Isabel MD [address] [place] [address] [address] [place] [address] Referring Physician Allergy and Immunology 01/11/19 Rekha Osborne MD [address] [place] [address] Medical Oncologist/Ssrs Developer Hematology 05/11/20 Mayuri Lyn, RN 4590 [facility] [address] [place] [address] SHOP Outpatient Machine Heel Sprayer 12/04/20 01/04/21 Michelle Colin LCSW 4590 [facility] ([facility] [place]) Mailstop [phone] [place] [address] SHOP Outpatient Machine Heel Sprayer 10/19/21 11/16/21 documented as of this encounter
--- OUTSIDE RECORDS SUMMARY | 2024-08-31 14:58 | XMS_ITS | Encounter Summary ---
Author Organization [facility] of [facility] Address [address] [place] [address] Phone Care Team Providers Care Customer Engagement Manager Name Role Phone Zoila Gleason MD Primary Care Provider Rupal Isabel MD Unavailable [phone] Rekha Osborne MD Unavailable [phone] Mayuri Lyn RN Unavailable Michelle Colin CHAIN OFFBEARER Unavailable Encounter Details Date Type Department Care [...] on file Legal Sex Male 1:53 AM FUNERAL HOME ATTENDANT Gender Identity Male 10/02/2023 12:44 PM [...] COVID: Suspected 04/21/2020 04/21/2020 04/21/2020 11:24 AM FUNERAL HOME ATTENDANT Respiratory Infection (MICKEY), contact + droplet Comment:Automatically added due to negative COVID-19 result. 04/21/2020 04/21/2020 05/05/2020 3:0 6 AM FUNERAL HOME ATTENDANT COVID: Suspected 04/21/2020 04/21/2020 04/21/2020 6:48 PM FUNERAL HOME ATTENDANT COVID: Suspected 09/25/2020 09/25/2020 09/25/2020 10:11 AM CDT Rhino/Enterovirus 09/25/2020 09/25/2020 10/02/2020 3:05 AM CDT COVID: Recovered 11/29/2020 11/29/2020 03/29/2021 3:05 AM FUNERAL HOME ATTENDANT COVID: Suspected 10/09/2021 10/09/2021 10/09/2021 9:37 AM CDT COVID: Suspected 03/06/2022 03/06/2022 03/06/2022 9:30 AM FUNERAL HOME ATTENDANT RSV, droplet 03/06/2022 03/06/2022 03/13/2022 3:05 AM FUNERAL HOME ATTENDANT COVID: Suspected 06/26/2022 06/26/2022 06/26/2022 5:59 PM CDT Coronavirus, droplet 06/26/2022 06/26/2022 023 3:06 AM CDT documented as of this encounter Care Teams Customer Engagement Manager Relationship Specialty Start Date End Date Zoila Gleason MD [address] [place] [address] PCP - General 09/29/16 Rupal Isabel MD 10 [facility] 200 [place] [address] Referring Physician Allergy and Immunology 01/11/19 Rekha Osborne MD [address] [place] [address] Medical Oncologist/Joint Maker Machine Hematology 05/11/20 Mayuri Lyn, RN 4590 [facility] [address] [place] [address] SHOP Outpatient Automatic Glove Former 12/04/20 01/04/21 Michelle Colin LCSW 4590 [facility] ([facility]) Mailstop [phone] [place] [address] SHOP Outpatient Automatic Glove Former 10/19/21 11/16/21 documented as of this encounter
--- NOTE | 2024-08-31 15:02 | ECG_ITS ---
Test Date: 2024-08-31 15:41:37 Measurements Intervals [place] Rate: 79 P: -2 OK: 117 QRS: -14 QRSD: 125 T: 1 QT: 381 QTc: 438 Interpretive Statements SINUS RHYTHM WITH SHORT OK INTERVAL RIGHT BUNDLE BRANCH BLOCK T WAVE ABNORMALITY IN ANTERIOR LEADS- CONSIDER ISCHEMIA BASELINE ARTIFACT- AVL, AVF ABNORMAL ECG No previous ECG available for comparison Electronically Signed On 09-01-2024 06:51:35 CDT by Yimi Orantes D.O.
--- OUTSIDE RECORDS SUMMARY | 2024-08-31 15:23 | XMS_ITS | Referral Summary ---
Author Organization [facility] Address [address] [place] [address] Care Team Providers Care Investigation Manager Name Role Phone Zoila Gleason MD Primary Care Provider [phone] Rupal Isabel MD Unavailable [phone] Rekha Osborne MD Unavailable [phone] Encounters Date Type Department Care Team Description 08/12/2024 1:00 PM CDT Telemedicine [facility] Allergy and Immunology [address] [facility] [address] [place] [address] Rupal Isabel MD CVID (common variable immunodeficiency) (HCC) (Primary Dx); Arpita's syndrome (HCC); Flexural atopic dermatitis 08/02/2024 Telephone [facility] Endocrinology Metabolism and Lipid [address] [facility] [address] [place] [address] [place] [address] Rose Marie Maurer RMA Prior [...] Never used. 07/07/19 21 Active Darius Rene [facility] spacer USE WITH INHALER DIRECTED 09/25/19 [...] 1 tablet (112 mcg total) by mouth office mail clerk before breakfast 03/10/20 23 Active Solu-CORTEF Act-O-Vial, [...] stooling. -As of 12/18/23 at 1300, per [facility] [phone] - E. Coli. -Repeat blood cultures NGTD -Received cefepime; changed to cefuroxime to complete a 7 day course. Source is suspected to be UTI -TTE neg for vegetations Leukocytosis 12/17/2023 Assessment & Plan (12/17/2023 8:50 PM CDT): CBC at [facility] 12/15 WBC 20.5 (81% neutrophils). Ddx includes [...] (12/01/2020): Added automatically from request for surgery [id number] Anemia 11/28/2020 Assessment & Plan (12/03/2020 11:37 AM CDT): Hgb 4.8 NUTRITION INTERNSHIP and s/p 4U pRBCs total. Hgb now [...] cytopenia, his initial presentation for thrombocytopenia to [facility] was in 2013 (17 yo) with petechiae [...] responded to steroid and rituximab last time ([id number]). During his last admission for UTI, he [...] bid - received stress dose steroids at [facility] - continue pred 5 BID - per [...] an anti-21 hydroxylase antibody to rule out Marilla's as well as a low dose ACTH stim test at some point after 72 hours from last stress dose. He is very well appearing and does not have an indication for stress dosing at this time. - send anti-21 hydroxylase antibody (red top 2 ml) 2107 to [facility] - consider ACTH stim test this admission [...] obtain anti-21 hydroxylase Ab to rule out Marilla's disease. Assessment & Plan (12/29/2019 8:18 AM [...] on 11/07. CVID (common variable immunodeficiency) ([facility] ) 04/16/2018 Assessment & [...] AM CDT): Stable. Followed by endocrinology at [facility]. Currently on 150 mcg levothyroxine daily. [...] Avoid concomitant administration of Levothyroxine with patient's NUTRITION INTERNSHIP iron. Separate dosing by at least 4 hours. Pediatric Endocrinology will continue to follow. 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 Never 10/11/2021 Do you belong to [...] on file Legal Sex Male 1:53 AM TRUCK ENGINE TECHNICIAN Gender Identity Male 10/02/2023 12:44 PM CDT Sexual Orientation Don't know 11/15/2020 1: 06 PM CDT Last Filed Vital Signs Vital Sign Reading Time Taken Comments Blood Pressure 117/79 05/13/2024 2:31 PM TRUCK ENGINE TECHNICIAN Pulse 90 05/13/2024 2:31 PM TRUCK ENGINE TECHNICIAN Temperature 36.9 C (98.5 F) 05/13/2024 2:31 PM TRUCK ENGINE TECHNICIAN Respiratory Rate 18 03/12/2024 2:48 PM TRUCK ENGINE TECHNICIAN Oxygen Saturation 96% 03/12/2024 2:48 PM TRUCK ENGINE TECHNICIAN Inhaled Oxygen Concentration - - Weight 60.8 kg (134 lb) 05/13/2024 2:31 PM TRUCK ENGINE TECHNICIAN Height 160 cm (5' 3) 05/13/2024 2:31 PM TRUCK ENGINE TECHNICIAN Body Mass Index 23.74 05/13/2024 2:31 PM TRUCK ENGINE TECHNICIAN Plan of Treatment Not on file Procedures Procedure Name Priority Date/Time Associated Diagnosis Comments HEPATITIS PANEL, ACUTE Routine 11/28/2020 5:33 PM CDT from Last 3 Months or Most Recently Relevant to Health Maintenance Results * Hepatitis panel, acute (11/28/2020 5:33 PM CDT) Hep A IgM Nonreactive Nonreactive [facility] Comment: Interpretive Data: If Hep A IgM Ab is reported as Equivocal, a new sample should be drawn in two weeks for testing. Current interpretive data was last revised on 19. Hep B core IgM Nonreactive Nonreactive [facility] Comment: Interpretive Data If HepB Core IgM Ab is reported as Equivocal, a new sample should be drawn in two weeks for testing. Current interpretive data was last revised on 19. Hep C Ab Nonreactive Nonreactive [facility] Comment:Antibodies to HCV no t detected. Does NOT exclude the possibility of recent exposure to HCV. HepBsAg Nonreactive Nonreactive [facility] Blood 11/28/2020 5:33 PM CDT 11/28/2020 5:53 PM CDT Jazzmine Mccartney NP LAB MICROBIO LOGY - GENERAL ORDERABLES Edited Result - Final [facility] Department [place] [address] from Last 3 Months or Most Recently Relevant to Health Maintenance Insurance [place] CHO[place] [facility] CHOICE PLUS [employer] OPEN ACCESS CHOICE [place]F [place] [facility] CHOICE PLUS [employer] OPEN ACCESS IDPA [facility] [place]PO [place] [employer] OPEN ACCESS [facility] CHOICE PLUS Advance Directives For more information, please contact: [phone] Documents on File Type Date Recorded Patient Corporate Health Consultant Expl anation Power of Puppy Walker 10/21/2021 12:58 PM ADVANCE DIRECTIVE 10/14/2019 12:35 [...] 5:09 PM 01/02/2021 6:56 PM Care Teams Investigation Manager Relationship Specialty Start Date End Date Zoila Gleason MD [address] [place] [address] PCP - General 09/29/16 Rupal Isabel MD [address] [place] [address] [address] [place] [address] Referring Physician Allergy and Immunology 01/11/19 Rekha Osborne MD [address] [place] [address] Medical Oncologist/Plant Nursery Worker Hematology 05/11/20
--- OUTSIDE RECORDS SUMMARY | 2024-08-31 15:23 | XMS_ITS | Encounter Summary ---
Author Organization [facility] Address [address] [place] [address] Phone Care Team Providers Care Book Sewer Name Role Phone Zoila Gleason MD Primary Care Provider Rupal Isabel MD Unavailable [phone] Rekha Osborne MD Unavailable [phone] Myauri Lyn RN Unavailable [phone] Michelle Colin SWEEPER BRUSH MAKER MACHINE Unavailable Encounter Details Date Type Department Care [...] on file Legal Sex Male 1:53 AM VIDEO TAPE TRANSFERRER Gender Identity Male 10/02/2023 12:44 PM CDT [...] COVID: Suspected 04/21/2020 04/21/2020 04/21/2020 11:24 AM VIDEO TAPE TRANSFERRER Respiratory Infection (MICKEY), contact + droplet Comment:Automatically added due to negative COVID-19 result. 04/21/2020 04/21/2020 05/05/2020 3:0 6 AM VIDEO TAPE TRANSFERRER COVID: Suspected 04/21/2020 04/21/2020 04/21/2020 6:48 PM VIDEO TAPE TRANSFERRER COVID: Suspected 09/25/2020 09/25/2020 09/25/2020 10:11 AM CDT Rhino/Enterovirus 09/25/2020 09/25/2020 10/02/2020 3:05 AM CDT COVID: Recovered 11/29/2020 11/29/2020 03/29/2021 3:05 AM VIDEO TAPE TRANSFERRER COVID: Suspected 10/09/2021 10/09/2021 10/09/2021 9:37 AM CDT COVID: Suspected 03/06/2022 03/06/2022 03/06/2022 9:30 AM VIDEO TAPE TRANSFERRER RSV, droplet 03/06/2022 03/06/2022 03/13/2022 3:05 AM VIDEO TAPE TRANSFERRER COVID: Suspected 06/26/2022 06/26/2022 06/26/2022 5:59 PM CDT Coronavirus, droplet 06/26/2022 06/26/2022 023 3:06 AM CDT documented as of this encounter Care Teams Book Sewer Relationship Specialty Start Date End Date Zoila Gleason MD [address] [place] [address] PCP - General 09/29/16 Rupal Isabel MD [address] [place] [address] [address] Referring Physician Allergy and Immunology 01/11/19 Rekha Osborne MD [address] [place] [address] Medical Oncologist/Cat And Dog Bather Hematology 05/11/20 Mayuri Lyn, RN [address] [facility] [address] [place] [address] SHOP Outpatient Lithographer Helper 12/04/20 01/04/21 Michelle Colin [facility] [address] [facility] ([facility] Mailstop [phone] [place] [address] SHOP Outpatient Lithographer Helper 10/19/21 11/16/21 documented as of this encounter
--- OUTSIDE RECORDS SUMMARY | 2024-08-31 15:23 | XMS_ITS | Encounter Summary ---
Author Organization [facility] Address [address] [place] [address] Phone Care Team Providers Care Visual Designer Name Role Phone Zoila Gleason MD Primary Care Provider [phone] Rupal Isabel MD Unavailable [phone] Rekha Osborne MD Unavailable [phone] Mayuri Lyn RN Unavailable Michelle Colin COSMETICS MACHINE OPERATOR Unavailable Encounter Details Date Type [...] on file Legal Sex Male 1:53 AM UI DEVELOPER WITH ANGULAR JS Gender Identity Male 10/02/2023 12:44 PM CDT [...] COVID: Recovered 11/29/2020 11/29/2020 03/29/2021 3:05 AM UI DEVELOPER WITH ANGULAR JS COVID: Suspected 10/09/2021 10/09/2021 10/09/2021 9:37 AM CDT COVID: Suspected 03/06/2022 03/06/2022 03/06/2022 9:30 AM UI DEVELOPER WITH ANGULAR JS RSV, droplet 03/06/2022 03/06/2022 03/13/2022 3:05 AM UI DEVELOPER WITH ANGULAR JS COVID: Suspected 06/26/2022 06/26/2022 06/26/2022 5:59 PM CDT Coronavirus, droplet 06/26/2022 06/26/2022 023 3:06 AM CDT documented as of this encounter Care Teams Visual Designer Relationship Specialty Start Date End Date Zoila Gleason MD [address] [place] [address] PCP - General 09/29/16 Rupal Isabel MD [address] [place] [address] [address] [place] [address] Referring Physician Allergy and Immunology 01/11/19 Rekha Osborne MD [address] [place] [address] Medical Oncologist/Real Estate Site Analyst Hematology 05/11/20 Mayuri Lyn, RN 4590 [facility] [address] [place] [address] SHOP Outpatient Animal Nutritionist 12/04/20 01/04/21 Michelle Colin LCSW 4590 [facility] ([facility] Mailstop [phone] [place] [address] SHOP Outpatient Animal Nutritionist 10/19/21 11/16/21 documented as of this encounter
--- OUTSIDE RECORDS SUMMARY | 2024-08-31 15:23 | XMS_ITS | Encounter Summary ---
Author Organization [facility] Address [address] [place] [address] Phone Care Team Providers Care Train System Operator Name Role Phone Zoila Gleason MD Primary Care Provider [phone] Rupal Isabel MD Unavailable [phone] Rekha Osborne MD Unavailable [phone] Mayuri Lyn RN Unavailable [phone] Michelle Colin RESEARCH ANIMAL ATTENDANT Unavailable [phone] Encounter Details Date Type Department Care Team [...] than three times a week 12/10/2020 Attends Adventism Services Not on file 12/10 Active Member [...] file Legal Sex Male 1:53 AM MARINE FIREFIGHTER Gender Identity Male 10/02/2023 12:44 PM CDT [...] Recovered 11/29/2020 11/29/2020 03/29/2021 3:05 AM MARINE FIREFIGHTER COVID: Suspected 10/09/2021 10/09/2021 10/09/2021 9:37 AM CDT COVID: Suspected 03/06/2022 03/06/2022 03/06/2022 9:30 AM MARINE FIREFIGHTER RSV, droplet 03/06/2022 03/06/2022 03/13/2022 3:05 AM MARINE FIREFIGHTER COVID: Suspected 06/26/2022 06/26/2022 06/26/2022 5:59 PM CDT Coronavirus, droplet 06/26/2022 06/26/2022 023 3:06 AM CDT documented as of this encounter Care Teams Train System Operator Relationship Specialty Start Date End Date Zoila Gleason MD [address] [place] [address] PCP - General 09/29/16 Rupal Isabel MD 10 [facility] [address] [place] [address] Referring Physician Allergy and Immunology 01/11/19 Rekha Osborne MD [address] [place] [address] Medical Oncologist/Coremaker Pipe Hematology 05/11/20 Mayuri Lyn, RN 4590 [facility] 5[address] [place] [address] SHOP Outpatient Blending Machine Operator 12/04/20 01/04/21 Michelle Colin LCSW 4590 [facility] ([facility] Mailstop [phone] [place] [address] SHOP Outpatient Blending Machine Operator 10/19/21 11/16/21 documented as of this encounter
--- OUTSIDE RECORDS SUMMARY | 2024-08-31 15:23 | XMS_ITS | Encounter Summary ---
Author Organization [facility] Address [address] [place] [address] Phone Care Team Providers Care Warehouse Processor Name Role Phone Zoila Gleason MD Primary Care Provider Rupal Isabel MD Unavailable [phone] Rekha Osborne MD Unavailable [phone] Mayuri Lyn RN Unavailable [phone] Michelle Colin DATAPOWER DEVELOPER Unavailable Encounter Details Date Type Department [...] on file Legal Sex Male 1:53 AM WEBLOGIC ADMINISTRATOR Gender Identity Male 10/02/2023 12:44 PM [...] COVID: Suspected 04/21/2020 04/21/2020 04/21/2020 11:24 AM WEBLOGIC ADMINISTRATOR Respiratory Infection (MICKEY), contact + droplet Comment:Automatically added due to negative COVID-19 result. 04/21/2020 04/21/2020 05/05/2020 3:0 6 AM WEBLOGIC ADMINISTRATOR COVID: Suspected 04/21/2020 04/21/2020 04/21/2020 6:48 PM WEBLOGIC ADMINISTRATOR COVID: Suspected 09/25/2020 09/25/2020 09/25/2020 10:11 AM CDT Rhino/Enterovirus 09/25/2020 09/25/2020 10/02/2020 3:05 AM CDT COVID: Recovered 11/29/2020 11/29/2020 03/29/2021 3:05 AM WEBLOGIC ADMINISTRATOR COVID: Suspected 10/09/2021 10/09/2021 10/09/2021 9:37 AM CDT COVID: Suspected 03/06/2022 03/06/2022 03/06/2022 9:30 AM WEBLOGIC ADMINISTRATOR RSV, droplet 03/06/2022 03/06/2022 03/13/2022 3:05 AM WEBLOGIC ADMINISTRATOR COVID: Suspected 06/26/2022 06/26/2022 06/26/2022 5:59 PM CDT Coronavirus, droplet 06/26/2022 06/26/2022 023 3:06 AM CDT documented as of this encounter Care Teams Warehouse Processor Relationship Specialty Start Date End Date Zoila Gleason MD [address] [place] [address] PCP - General 09/29/16 Rupal Isabel MD [address] [place] [address] [address] Referring Physician Allergy and Immunology 01/11/19 Rekha Osborne MD [address] [place] [address] Medical Oncologist/Truck Driver Hematology 05/11/20 Mayuri Lyn, RN 4590 [facility] [address] [place] [address] SHOP Outpatient Padding Gluer 12/04/20 01/04/21 Michelle Colin [facility] 2990 [facility] ([facility] Mailstop [phone] [place] [address] SHOP Outpatient Padding Gluer 10/19/21 11/16/21 documented as of this encounter
--- OUTSIDE RECORDS SUMMARY | 2024-08-31 15:23 | XMS_ITS | Encounter Summary ---
Author Organization [facility] Address [address] [place] [address] Phone Care Team Providers Care Electronics Engineering Professor Name Role Phone Zoila Gleason MD Primary Care Provider [phone] Rupal Isabel MD Unavailable [phone] Rekha Osborne MD Unavailable [phone] Encounter Details Date Type Department Care Team [...] often do you attend chur ch or episcopalian services? Never 10/11/2021 Do you belong to [...] a senior care (including now)? No 10/11/2021 Sex and Gender Information Value Date Recorded Sex Assigned at Not on file Legal Sex Male 1:53 AM HARD CANDY SPINNER Gender Identity Male 10/02/2023 12:44 PM CDT [...] documented as of this encounter Care Teams Electronics Engineering Professor Relationship Specialty Start Date End Date Zoila Gleason MD [address] [place] [address] PCP - General 09/29/16 Rupal Isabel MD 10 [facility] [address] [place] [address] Referring Physician Allergy and Immunology 01/11/19 Rekha Osborne MD [address] [place] [address] Medical Oncologist/Information Management Officer Hematology 05/11/20 documented as of this encounter
--- OUTSIDE RECORDS SUMMARY | 2024-08-31 15:23 | XMS_ITS | Encounter Summary ---
Author Organization [facility] Address [address] [place] [address] Phone Care Team Providers Care Brine Plant Operator Name Role Phone Zoila Gleason MD Primary Care Provider Rupal Isabel MD Unavailable [phone] Rekha Osborne MD Unavailable [phone] Mayuri Lyn RN Unavailable Michelle Colin THEATER SET PRODUCTION DESIGNER Unavailable [phone] Encounter Details Date Type Department Care Team [...] on file Legal Sex Male 1:53 AM DEAN OF WOMEN Gender Identity Male 10/02/2023 12:44 PM CDT [...] COVID: Suspected 04/21/2020 04/21/2020 04/21/2020 11:24 AM DEAN OF WOMEN Respiratory Infection (MICKEY), contact + droplet Comment:Automatically added due to negative COVID-19 result. 04/21/2020 04/21/2020 05/05/2020 3:0 6 AM DEAN OF WOMEN COVID: Suspected 04/21/2020 04/21/2020 04/21/2020 6:48 PM DEAN OF WOMEN COVID: Suspected 09/25/2020 09/25/2020 09/25/2020 10:11 AM CDT Rhino/Enterovirus 09/25/2020 09/25/2020 10/02/2020 3:05 AM CDT COVID: Recovered 11/29/2020 11/29/2020 03/29/2021 3:05 AM DEAN OF WOMEN COVID: Suspected 10/09/2021 10/09/2021 10/09/2021 9:37 AM CDT COVID: Suspected 03/06/2022 03/06/2022 03/06/2022 9:30 AM DEAN OF WOMEN RSV, droplet 03/06/2022 03/06/2022 03/13/2022 3:05 AM DEAN OF WOMEN COVID: Suspected 06/26/2022 06/26/2022 06/26/2022 5:59 PM CDT Coronavirus, droplet 06/26/2022 06/26/202207/03/ 023 3:06 AM CDT documented as of this encounter Care Teams Brine Plant Operator Relationship Specialty Start Date End Date Zoila Gleason MD [address] [place] [address] PCP - General 09/29/16 Rupal Isabel MD 10 [facility] [address] [place] [address] Referring Physician Allergy and Immunology 01/11/19 Rekha Osborne MD [address] [place] [address] Medical Oncologist/Integrated Circuit Ic Layout Designer Hematology 05/11/20 Mayuri Lyn, RN 4590 [facility] [address] [place] [address] SHOP Outpatient Tire Fixer 12/04/20 01/04/21 Michelle Colin THEATER SET PRODUCTION DESIGNER 4590 [facility] ([facility] Mailstop [phone] [place] [address] SHOP Outpatient Tire Fixer 10/19/21 11/16/21 documented as of this encounter
--- OUTSIDE RECORDS SUMMARY | 2024-08-31 15:23 | XMS_ITS | Encounter Summary ---
Author Organization [facility] Address [address] [place] [address] Care Team Providers Care Pattern Hand Name Role Phone Zoila Gleason MD Primary Care Provider Rupal Isabel MD Unavailable [phone] Rekha Osborne MD Unavailable Mayuri Lyn RN Unavailable [phone] Michelle ColinW Unavailable [phone] Encounter Details Date Type Department Care Team (Late st Contact Info) Description 03/31/2020 Telephone [facility] [place] [address] Wendy Storm, RDMS Social History [...] on file Legal Sex Male 1:53 AM FRONT DESK ASSOCIATE Gender Identity Male 10/02/2023 12:44 PM CDT Sexual Orientation Don't know 11/15/2020 1: 06 PM CDT documented as of this encounter Plan of Treatment Not on file documented as of this encounter Visit Diagnoses Not on filedocumented in this encounter Additional Health Concerns Infection Onset Date Last Indicated Resolved Time COVID: Suspected 04/21/2020 04/21/2020 04/21/2020 11:24 AM FRONT DESK ASSOCIATE Respiratory Infection (MICKEY), contact + droplet Comment:Automatically added due to negative COVID-19 result. 04/21/2020 04/21/2020 05/05/2020 3:0 6 AM FRONT DESK ASSOCIATE COVID: Suspected 04/21/2020 04/21/2020 04/21/2020 6:48 PM FRONT DESK ASSOCIATE COVID: Suspected 09/25/2020 09/25/2020 09/25/2020 10:11 AM CDT Rhino/Enterovirus 09/25/2020 09/25/2020 10/02/2020 3:05 AM CDT COVID: Recovered 11/29/2020 11/29/2020 03/29/2021 3:05 AM FRONT DESK ASSOCIATE COVID: Suspected 10/09/2021 10/09/2021 10/09/2021 9:37 AM CDT COVID: Suspected 03/06/2022 03/06/2022 03/06/2022 9:30 AM FRONT DESK ASSOCIATE RSV, droplet 03/06/2022 03/06/2022 03/13/2022 3:05 AM FRONT DESK ASSOCIATE COVID: Suspected 06/26/2022 06/26/2022 06/26/2022 5:59 PM CDT Coronavirus, droplet 06/26/2022 06/26/2022 023 3:06 AM CDT documented as of this encounter Care Teams Pattern Hand Relationship Specialty Start Date End Date Zoila Gleason MD [address] [place] [address] PCP - General 09/29/16 Rupal Isabel MD 10 [facility] 200 [place] [address] Referring Physician Allergy and Immunology 01/11/19 Rekha Osborne MD [address] [place] [address] Medical Oncologist/Story Writer Hematology 05/11/20 Mayuri Lyn, RN 4590 [facility] [address] [place] [address] SHOP Outpatient Research Technologist 12/04/20 01/04/21 Michelle Colin LCSW 4590 [facility] ([facility] Mailstop [phone] [place] [address] SHOP Outpatient Research Technologist 10/19/21 11/16/21 documented as of this encounter
--- OUTSIDE RECORDS SUMMARY | 2024-08-31 15:23 | XMS_ITS | Encounter Summary ---
Author Organization [facility] Address [address] [place] [address] Phone Care Team Providers Care Embedded Processor Name Role Phone Zoila Gleason MD Primary Care Provider Rupal Isabel MD Unavailable [phone] Rekha Osborne MD Unavailable [phone] Mayuri Lyn RN Unavailable Michelle Colin PACK WORKER SUPERVISOR Unavailable [phone] Encounter Details Date Type Department Care Team [...] on file Legal Sex Male 1:53 AM STRADDLE BUGGY OPERATOR Gender Identity Male 10/02/2023 12:44 PM [...] COVID: Suspected 04/21/2020 04/21/2020 04/21/2020 11:24 AM STRADDLE BUGGY OPERATOR Respiratory Infection (MICKEY), contact + droplet Comment:Automatically added due to negative COVID-19 result. 04/21/2020 04/21/2020 05/05/2020 3:0 6 AM STRADDLE BUGGY OPERATOR COVID: Suspected 04/21/2020 04/21/2020 04/21/2020 6:48 PM STRADDLE BUGGY OPERATOR COVID: Suspected 09/25/2020 09/25/2020 09/25/2020 10:11 AM CDT Rhino/Enterovirus 09/25/2020 09/25/2020 10/02/2020 3:05 AM CDT COVID: Recovered 11/29/2020 11/29/2020 03/29/2021 3:05 AM STRADDLE BUGGY OPERATOR COVID: Suspected 10/09/2021 10/09/2021 10/09/2021 9:37 AM CDT COVID: Suspected 03/06/2022 03/06/2022 03/06/2022 9:30 AM STRADDLE BUGGY OPERATOR RSV, droplet 03/06/2022 03/06/2022 03/13/2022 3:05 AM STRADDLE BUGGY OPERATOR COVID: Suspected 06/26/2022 06/26/2022 06/26/2022 5:59 PM CDT Coronavirus, droplet 06/26/2022 06/26/2022 023 3:06 AM CDT documented as of this encounter Care Teams Embedded Processor Relationship Specialty Start Date End Date Zoila Gleason MD [address] [place] [address] PCP - General 09/29/16 Rupal Isabel MD 10 [facility] [address] [place] [address] Referring Physician Allergy and Immunology 01/11/19 Rekha Osborne MD [address] [place] [address] Medical Oncologist/Plumber'S Assistant Hematology 05/11/20 Mayuri Lyn, RN 4590 [facility] [address] [place] [address] SHOP Outpatient Banquet Attendant 12/04/20 01/04/21 Michelle Colin LCSW 4590 [facility] ([facility]) Mailstop [phone] [place] [address] SHOP Outpatient Banquet Attendant 10/19/21 11/16/21 documented as of this encounter
--- OUTSIDE RECORDS SUMMARY | 2024-08-31 15:23 | XMS_ITS | Encounter Summary ---
Author Organization [facility] Address [address] [place] [address] Phone Care Team Providers Care Sprinkling Truck Driver Name Role Phone Zoila Gleason MD Primary Care Provider Rupal Isabel MD Unavailable [phone] Rekha Osborne MD Unavailable [phone] Mayuri Lyn RN Unavailable Michelle Colin MILL ROLL REWINDER Unavailable Encounter Details Date Type Department Care [...] on file Legal Sex Male 1:53 AM REGIONAL INTERMODAL TRUCK DRIVER Gender Identity Male 10/02/2023 12:44 [...] COVID: Recovered 11/29/2020 11/29/2020 03/29/2021 3:05 AM REGIONAL INTERMODAL TRUCK DRIVER COVID: Suspected 10/09/2021 10/09/2021 10/09/2021 9:37 AM CDT COVID: Suspected 03/06/2022 03/06/2022 03/06/2022 9:30 AM REGIONAL INTERMODAL TRUCK DRIVER RSV, droplet 03/06/2022 03/06/2022 03/13/2022 3:05 AM REGIONAL INTERMODAL TRUCK DRIVER COVID: Suspected 06/26/2022 06/26/2022 06/26/2022 5:59 PM CDT Coronavirus, droplet 06/26/2022 06/26/2022 023 3:06 AM CDT documented as of this encounter Care Teams Sprinkling Truck Driver Relationship Specialty Start Date End Date Zoila Gleason MD [address] [place] [address] PCP - General 09/29/16 Rupal Isabel MD [address] [place] [address] [address] [place] [address] Referring Physician Allergy and Immunology 01/11/19 Rekha Osborne MD [address] [place] [address] Medical Oncologist/Registered Medical Assistant Hematology 05/11/20 Mayuri Lyn, RN 4590 [facility] [address] [place] [address] SHOP Outpatient Account Resolution Specialist 12/04/20 01/04/21 Michelle Colin LCSW 4590 [facility] ([facility]) Mailstop [phone] [place] [address] SHOP Outpatient Account Resolution Specialist 10/19/21 11/16/21 documented as of this encounter
--- OUTSIDE RECORDS SUMMARY | 2024-08-31 15:23 | XMS_ITS | Encounter Summary ---
Author Organization [facility] School of [facility] Address [address] [place] [address] Phone Care Team Providers Care Project Controller Name Role Phone Zoila Gleason MD Primary Care Provider Rupal Isabel MD Unavailable [phone] Rekha Osborne MD Unavailable [phone] Mayuri Lyn RN Unavailable Michelle Colin ARCHITECTURE INTERN Unavailable Encounter Details Date Type Department [...] file Legal Sex Male 1:53 AM RN HEMATOLOGY Gender Identity Male 10/02/2023 12:44 PM CDT [...] Recovered 11/29/2020 11/29/2020 03/29/2021 3:05 AM RN HEMATOLOGY COVID: Suspected 10/09/2021 10/09/2021 10/09/2021 9:37 AM CDT COVID: Suspected 03/06/2022 03/06/2022 03/06/2022 9:30 AM RN HEMATOLOGY RSV, droplet 03/06/2022 03/06/2022 03/13/2022 3:05 AM RN HEMATOLOGY COVID: Suspected 06/26/2022 06/26/2022 06/26/2022 5:59 PM CDT Coronavirus, droplet 06/26/2022 06/26/2022 023 3:06 AM CDT documented as of this encounter Care Teams Project Controller Relationship Specialty Start Date End Date Zoila Gleason MD [address] [place] [address] PCP - General 09/29/16 Rupal Isabel MD [address] [place] [address] [address] [place] [address] Referring Physician Allergy and Immunology 01/11/19 Rekha Osborne MD [address] [place] [address] Medical Oncologist/Foreign Law Consultant Hematology 05/11/20 Mayuri Lyn, RN 4590 [facility] [address] [place] [address] SHOP Outpatient Aircraft Pneudraulic Systems Mechanic 12/04/20 01/04/21 Michelle Colin LCSW 4590 [facility] ([facility] Mailstop [phone] [place] [address] SHOP Outpatient Aircraft Pneudraulic Systems Mechanic 10/19/21 11/16/21 documented as of this encounter
--- OUTSIDE RECORDS SUMMARY | 2024-08-31 15:23 | XMS_ITS | Encounter Summary ---
Author Organization [facility] Address [address] [place] [address] Phone Care Team Providers Care Apartment House Manager Name Role Phone Zoila Gleason MD Primary Care Provider Rupal Isabel MD Unavailable [phone] Rekha Osborne MD Unavailable [phone] Mayuri Lyn RN Unavailable Michelle Colin TAKE DOWN SORTER Unavailable [phone] Encounter Details Date Type Department Care Team [...] on file Legal Sex Male 1:53 AM GRANULAR OPERATOR Gender Identity Male 10/02/2023 12:44 PM [...] COVID: Recovered 11/29/2020 11/29/2020 03/29/2021 3:05 AM GRANULAR OPERATOR COVID: Suspected 10/09/2021 10/09/2021 10/09/2021 9:37 AM CDT COVID: Suspected 03/06/2022 03/06/2022 03/06/2022 9:30 AM GRANULAR OPERATOR RSV, droplet 03/06/2022 03/06/2022 03/13/2022 3:05 AM GRANULAR OPERATOR COVID: Suspected 06/26/2022 06/26/2022 06/26/2022 5:59 PM CDT Coronavirus, droplet 06/26/2022 06/26/2022 023 3:06 AM CDT documented as of this encounter Care Teams Apartment House Manager Relationship Specialty Start Date End Date Zoila Gleason MD [address] [place] [address] PCP - General 09/29/16 Rupal Isabel MD [address] [place] [address] [address] [place] [address] Referring Physician Allergy and Immunology 01/11/19 Rekha Osborne MD [address] [place] [address] Medical Oncologist/Technology Architect Hematology 05/11/20 Mayuri Lyn, RN 4590 [facility] [address] [place] [address] SHOP Outpatient Chemical Radiation Technician 12/04/20 01/04/21 Michelle Colin LCSW 4590 [facility] ([facility] Mailstop [phone] [place] [address] SHOP Outpatient Chemical Radiation Technician 10/19/21 11/16/21 documented as of this encounter
--- OUTSIDE RECORDS SUMMARY | 2024-08-31 15:23 | XMS_ITS | Encounter Summary ---
Author Organization [facility] Address [address] [place] [address] Phone Care Team Providers Care Remelt Sugar Boiler Name Role Phone Zoila Gleason MD Primary Care Provider Rupal Isabel MD Unavailable [phone] Rekha Osborne MD Unavailable [phone] Mayuri Lyn RN Unavailable Michelle Colin DATA CENTER ARCHITECT Unavailable Encounter Details Date Type Department [...] on file Legal Sex Male 1:53 AM KENNEL OPERATOR Gender Identity Male 10/02/2023 12:44 PM [...] COVID: Recovered 11/29/2020 11/29/2020 03/29/2021 3:05 AM KENNEL OPERATOR COVID: Suspected 10/09/2021 10/09/2021 10/09/2021 9:37 AM CDT COVID: Suspected 03/06/2022 03/06/2022 03/06/2022 9:30 AM KENNEL OPERATOR RSV, droplet 03/06/2022 03/06/2022 03/13/2022 3:05 AM KENNEL OPERATOR COVID: Suspected 06/26/2022 06/26/2022 06/26/2022 5:59 PM CDT Coronavirus, droplet 06/26/2022 06/26/2022 023 3:06 AM CDT documented as of this encounter Care Teams Remelt Sugar Boiler Relationship Specialty Start Date End Date Zoila Gleason MD [address] [place] [address] PCP - General 09/29/16 Rupal Isabel MD [address] [place] [address] [address] [place] [address] Referring Physician Allergy and Immunology 01/11/19 Rekha Osborne MD [address] [place] [address] Medical Oncologist/Wharf Tender Head Hematology 05/11/20 Mayuri Lyn, RN 4590 [facility] [address] [place] [address] SHOP Outpatient Operational Meteorologist 12/04/20 01/04/21 Michelle Colin LCSW 4590 [facility] ([facility]) Mailstop [phone] [place] [address] SHOP Outpatient Operational Meteorologist 10/19/21 11/16/21 documented as of this encounter
--- OUTSIDE RECORDS SUMMARY | 2024-08-31 15:23 | XMS_ITS | Encounter Summary ---
Author Organization [facility] Address [address] [place] [address] Phone Care Team Providers Care Hospital Personnel Director Name Role Phone Zoila Gleason MD Primary Care Provider Rupal Isabel MD Unavailable [phone] Rekha Osborne MD Unavailable [phone] Mayuri Lyn RN Unavailable [phone] Michelle Colin BROTHEL KEEPER Unavailable Encounter Details Date Type Department Care [...] on file Legal Sex Male 1:53 AM DRILLER HAND Gender Identity Male 10/02/2023 12:44 PM [...] COVID: Recovered 11/29/2020 11/29/2020 03/29/2021 3:05 AM DRILLER HAND COVID: Suspected 10/09/2021 10/09/2021 10/09/2021 9:37 AM CDT COVID: Suspected 03/06/2022 03/06/2022 03/06/2022 9:30 AM DRILLER HAND RSV, droplet 03/06/2022 03/06/2022 03/13/2022 3:05 AM DRILLER HAND COVID: Suspected 06/26/2022 06/26/2022 06/26/2022 5:59 PM CDT Coronavirus, droplet 06/26/2022 06/26/2022 023 3:06 AM CDT documented as of this encounter Care Teams Hospital Personnel Director Relationship Specialty Start Date End Date Zoila Gleason MD [address] [place] [address] PCP - General 09/29/16 Rupal Isabel MD [address] [place] [address] [address] [place] [address] Referring Physician Allergy and Immunology 01/11/19 Rekha Osborne MD [address] [place] [address] Medical Oncologist/Cigarette Roller Hematology 05/11/20 Mayuri Lyn, RN 4590 [facility] [address] [place] [address] SHOP Outpatient Corn Sheller 12/04/20 01/04/21 Michelle Colin LCSW 4590 [facility] ([facility]) Mailstop [phone] [place] [address] SHOP Outpatient Corn Sheller 10/19/21 11/16/21 documented as of this encounter
--- OUTSIDE RECORDS SUMMARY | 2024-08-31 15:23 | XMS_ITS | Clinical Summary ---
Author Organization [facility] Address [address] [place] [address] Care Team Providers Care Senior Research Fellow Name Role Phone Unavailable Primary Care Provider [...] WEEKS. 24 Packet 1 03/02/2023 2:48 PM EMBOSSING PRESS OPERATOR APPRENTICE 3 Active clindamycin phosphate (CLEOCIN T) 1 [...] procedure 4 Capsule 1 03/02/2023 2:45 PM EMBOSSING PRESS OPERATOR APPRENTICE 3 Active docusate sodium (COLACE) 100 mg capsule Take one capsule (100 mg) orally twice a day 60 Capsule 3 03/14/2023 12:03 PM EMBOSSING PRESS OPERATOR APPRENTICE 3 Active levothyroxine 112 mcg tablet Take one tablet (112 mcg) orally every morning 90 Tablet 2 03/14/2023 12:03 PM EMBOSSING PRESS OPERATOR APPRENTICE 3 Active pantoprazole (PROTONIX) 40 mg Tablet, Delayed Release (E.C.) Take one tablet (40 mg) orally daily 60 Tablet 03/14/2023 12:03 PM EMBOSSING PRESS OPERATOR APPRENTICE 3 Active sertraline (ZOLOFT) 100 mg tablet Take one tablet (50 mg) orally daily 90 Tablet 3 3 Active hydrocortisone sod succ, PF, (Solu-CORTEF Act-O-Vial, PF,) 100 mg/2 mL Recon Soln Inject 2 mL (100 mg) by intramuscular injection 1 time daily as needed for adrenal crisis. 10 Each 2 04/17/2023 6:40 PM EMBOSSING PRESS OPERATOR APPRENTICE 4 Active apixaban (Eliquis) 5 mg tablet Take 1 Tablet (5 mg) by mouth 2 times daily. 30 Tablet 1 04/08/2023 4:00 PM EMBOSSING PRESS OPERATOR APPRENTICE 4 Active nirmatrelvir-r itonavir (Paxlovid) 300(150mg x 2)-100 mg oral pack TAKE 2 TABLETS OF NIRMATRELVIR AND 1 TABLET OF RITONAVIR BY MOUTH TWICE DAILY FOR 5 DAYS 30 Each 4 Active predniSONE (DELTASONE) 1 mg tablet TAKE 1-4 TABLETS BY MOUTH DAILY DIRECTED BY PHYSICIAN. TAKE WITH 5 MG DAILY. 120 Tablet 2 04/25/2023 2:35 PM EMBOSSING PRESS OPERATOR APPRENTICE 4 Active nirmatrelvir-r itonavir (Paxlovid) 300(150mg x [...] failure. 90 Tablet 2 04/25/2023 2:35 PM EMBOSSING PRESS OPERATOR APPRENTICE 4 Active Immunizations Immunization Administration Dates Next [...]
--- OUTSIDE RECORDS SUMMARY | 2024-08-31 15:23 | XMS_ITS | Encounter Summary ---
Author Organization [facility] Address [address] [place] [address] Phone Care Team Providers Care Medical Asst Name Role Phone Zoila Gleason MD Primary Care Provider [phone] Rupal Isabel MD Unavailable [phone] Rekha Osborne MD Unavailable [phone] Mayuri Lyn RN Unavailable [phone] Michelle Colin PETROLEUM SAMPLER Unavailable Encounter Details Date Type Department Care [...] file Legal Sex Male 1:53 AM MARINE EQUIPMENT PRESERVATION INSPECTOR Gender Identity Male 10/02/2023 12:44 PM [...] Recovered 11/29/2020 11/29/2020 03/29/2021 3:05 AM MARINE EQUIPMENT PRESERVATION INSPECTOR COVID: Suspected 10/09/2021 10/09/2021 10/09/2021 9:37 AM CDT COVID: Suspected 03/06/2022 03/06/2022 03/06/2022 9:30 AM MARINE EQUIPMENT PRESERVATION INSPECTOR RSV, droplet 03/06/2022 03/06/2022 03/13/2022 3:05 AM MARINE EQUIPMENT PRESERVATION INSPECTOR COVID: Suspected 06/26/2022 06/26/2022 06/26/2022 5:59 PM CDT Coronavirus, droplet 06/26/2022 06/26/2022 023 3:06 AM CDT documented as of this encounter Care Teams Medical Asst Relationship Specialty Start Date End Date Zoila lGeason MD [address] [place] [address] PCP - General 09/29/16 Rupal Isabel MD [address] [place] [address] [facility] [address] [place] [address] Referring Physician Allergy and Immunology 01/11/19 Rekha Osborne MD [address] [place] [address] Medical Oncologist/Litigation Attorney Associate Hematology 05/11/20 Mayuri Lyn, RN 4590 [facility] [address] [place] [address] SHOP Outpatient Web Content Manager 12/04/20 01/04/21 Michelle Colin LCSW 4590 [facility] ([facility] Mailstop [phone] [place] [address] SHOP Outpatient Web Content Manager 10/19/21 11/16/21 documented as of this encounter
--- OUTSIDE RECORDS SUMMARY | 2024-08-31 15:23 | XMS_ITS | Encounter Summary ---
Author Organization [facility] Address [address] [place] [address] Phone Care Team Providers Care Tarring Machine Operator Name Role Phone Zoila Gleason MD Primary Care Provider Rupal Isabel MD Unavailable [phone] Rekha Osborne MD Unavailable Mayuri Lyn RN Unavailable Michelle Colin LAB CLERK Unavailable Encounter Details Date Type Department [...] on file Legal Sex Male 1:53 AM POLISHER DIAL Gender Identity Male 10/02/2023 12:44 PM CDT [...] COVID: Recovered 11/29/2020 11/29/2020 03/29/2021 3:05 AM POLISHER DIAL COVID: Suspected 10/09/2021 10/09/2021 10/09/2021 9:37 AM CDT COVID: Suspected 03/06/2022 03/06/2022 03/06/2022 9:30 AM POLISHER DIAL RSV, droplet 03/06/2022 03/06/2022 03/13/2022 3:05 AM POLISHER DIAL COVID: Suspected 06/26/2022 06/26/2022 06/26/2022 5:59 PM CDT Coronavirus, droplet 06/26/2022 06/26/2022 023 3:06 AM CDT documented as of this encounter Care Teams Tarring Machine Operator Relationship Specialty Start Date End Date Zoila Gleason MD [address] [place] [address] PCP - General 09/29/16 Rupal Isabel MD [address] [place] [address] [address] [place] [address] Referring Physician Allergy and Immunology 01/11/19 Rekha Osborne MD [address] [place] [address] Medical Oncologist/Turner In Hematology 05/11/20 Mayuri Lyn, RN 4590 [facility] [address] [place] [address] SHOP Outpatient Tube Heater 12/04/20 01/04/21 Michelle Colin LCSW 4590 [facility] ([facility]) Mailstop [phone] [place] [address] SHOP Outpatient Tube Heater 10/19/21 11/16/21 documented as of this encounter
--- OUTSIDE RECORDS SUMMARY | 2024-08-31 15:23 | XMS_ITS | Encounter Summary ---
Author Organization [facility] Address [address] [place] [address] Phone Care Team Providers Care Violin Maker Hand Name Role Phone Zoila Gleason MD Primary Care Provider Rupal Isabel MD Unavailable [phone] Rekha Osborne MD Unavailable [phone] Mayuri Lyn RN Unavailable Michlele Colin CAPTAIN FIRE PREVENTION BUREAU Unavailable Encounter Details Date Type Department Care Team (Latest Contact Info) Description 03/18/2020 Orders Only [facility] Scanning, Provider Social History Tobacco [...] on file Legal Sex Male 1:53 AM PROJECT ADMIN Gender Identity Male 10/02/2023 12:44 PM CDT [...] COVID: Suspected 04/21/2020 04/21/2020 04/21/2020 11:24 AM PROJECT ADMIN Respiratory Infection (MICKEY), contact + droplet Comment:Automatically added due to negative COVID-19 result. 04/21/2020 04/21/2020 05/05/2020 3:0 6 AM PROJECT ADMIN COVID: Suspected 04/21/2020 04/21/2020 04/21/2020 6:48 PM PROJECT ADMIN COVID: Suspected 09/25/2020 09/25/2020 09/25/2020 10:11 AM CDT Rhino/Enterovirus 09/25/2020 09/25/2020 10/02/2020 3:05 AM CDT COVID: Recovered 11/29/2020 11/29/2020 03/29/2021 3:05 AM PROJECT ADMIN COVID: Suspected 10/09/2021 10/09/2021 10/09/2021 9:37 AM CDT COVID: Suspected 03/06/2022 03/06/2022 03/06/2022 9:30 AM PROJECT ADMIN RSV, droplet 03/06/2022 03/06/2022 03/13/2022 3:05 AM PROJECT ADMIN COVID: Suspected 06/26/2022 06/26/2022 06/26/2022 5:59 PM CDT Coronavirus, droplet 06/26/2022 06/26/2022 023 3:06 AM CDT documented as of this encounter Care Teams Violin Maker Hand Relationship Specialty Start Date End Date Zoila Gleason MD [address] [address] PCP - General 09/29/16 Rupal Isabel MD [address] [place] [address] [address] Referring Physician Allergy and Immunology 01/11/19 Rekha Osborne MD [address] [place] [address] Medical Oncologist/Lead Medical Technologist Hematology 05/11/20 Mayuri Lyn, RN 4590 [facility] [address] [place] [address] SHOP Outpatient Orthotist Or Prosthetist 12/04/20 01/04/21 Michelle Colin [facility] 1990 [facility] ([facility]) Mailstop [phone] [place] [address] SHOP Outpatient Orthotist Or Prosthetist 10/19/21 11/16/21 documented as of this encounter
--- OUTSIDE RECORDS SUMMARY | 2024-08-31 15:23 | XMS_ITS | Clinical Summary ---
Author Organization [facility] Address [address] [place] [address] Care Team Providers Care Applications Sales Representative Name Role Phone Zoila Gleason MD Primary Care Provider [phone] Rupal Isabel MD Unavailable [phone] Rekha Osborne MD Unavailable [phone] Allergies Active Allergy Reactions Criticality Noted Date [...] Never used. 07/07/19 21 Active OptiChamber Anju [facility] spacer USE WITH INHALER DIRECTED [...] tablet (112 mcg total) by mouth office runner before breakfast 03/10/20 23 Active Solu-CORTEF Act-O-Vial, [...] stooling. -As of 12/18/23 at 1300, per [facility] [phone] - E. Coli. -Repeat blood cultures NGTD -Received cefepime; changed to cefuroxime to complete a 7 day course. Source is suspected to be UTI -TTE neg for vegetations Leukocytosis 12/17/2023 Assessment & Plan (12/17/2023 8:50 PM CDT): CBC at [facility] 12/15 WBC 20.5 (81% neutrophils). Ddx includes [...] (12/01/2020): Added automatically from request for surgery [id number] Anemia 11/28/2020 Assessment & Plan (12/03/2020 11:37 AM CDT): Hgb 4.8 PARAPLANNER and s/p 4U pRBCs total. Hgb now [...] responded to steroid and rituximab last time ([id number]). During his last admission for UTI, he [...] bid - received stress dose steroids at [facility] - continue pred 5 BID - per [...] antibody (red top 2 ml) 2107 to [place] - consider ACTH stim test this admission [...] obtain anti-21 hydroxylase Ab to rule out [place]'s disease. Assessment & Plan (12/29/2019 8:18 AM [...] on 11/07. 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 Separate dosing by at least 4 hours. Pediatric Endocrinology will continue to follow. 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 He continues to do well on [...] Team Description 08/12/2024 1:00 PM CDT Telemedicine [facility] Allergy and Immunology [address] [place] [address] Rupal Isabel MD CVID (common variable immunodeficiency) (HCC) (Primary Dx); Arpita's syndrome (HCC); Flexural atopic dermatitis 08/02/2024 Telephone [facility] Endocrinology Metabolism and Lipid [address] 5[address] [place] [address] [place] [id number] Rose Marie Maurer RMA Prior Auth (DAVEY [...] Influenza, Trivalent, Preser vative Free, Intramuscular 03/09/2016 [employer] ([employer]) SARS-CoV-2 Vaccination 06/08/2020 MMR 10/01/2002,01/20/1999 Meningococcal [...] COVID-19 10/2019 Clotting disorder Heart disease s/p IN secondary to severe anemia GI (gastrointestinal bleed) Acute respiratory failure wi th hypoxia (HCC) 08/20/2022 Family History Medical History Relation Name Comments Cancer Father Aidan Dima Viera Hyperlipidemia Father Aidan Dima Viera Hypertension Father Aidan Dima Viera Thyroid disease Mother Early Paternal Grandfather Pal Veira Heart attack Paternal Grandfather Pal Viera Osteoporosis [...] How often do you attend chur or temple services? Never 10/11/2021 Do you belong to [...] on file Legal Sex Male 1:53 AM THROUGH OPERATOR Gender Identity Male 10/02/2023 12:44 PM CDT Sexual Orientation Don't know 11/15/2020 1: 06 PM CDT Obstetrics History Last Filed Vital Signs Vital Sign Reading Time Taken Comments Blood Pressure 117/79 05/13/2024 2:31 PM THROUGH OPERATOR Pulse 90 05/13/2024 2:31 PM THROUGH OPERATOR Temperature 36.9 C (98.5 F) 05/13/2024 2:31 PM THROUGH OPERATOR Respiratory Rate 18 03/12/2024 2:48 PM THROUGH OPERATOR Oxygen Saturation 96% 03/12/2024 2:48 PM THROUGH OPERATOR Inhaled Oxygen Concentration - - Weight 60.8 kg (134 lb) 05/13/2024 2:31 PM THROUGH OPERATOR Height 160 cm (5' 3) 05/13/2024 2:31 PM THROUGH OPERATOR Body Mass Index 23.74 05/13/2024 2:31 PM THROUGH OPERATOR Plan of Treatment Health Maintenance Due Date [...] PM CDT) Hep A IgM Nonreactive Nonreactive [facility] Comment: Interpretive Data: If Hep A IgM Ab is reported as Equivocal, a new sample should be drawn in two weeks for testing. Current interpretive data was last revised on 19. Hep B core IgM Nonreactive Nonreactive [facility] Comment: Interpretive Data If HepB Core IgM Ab is reported as Equivocal, a new sample should be drawn in two weeks for testing. Current interpretive data was last revised on 19. Hep C Ab Nonreactive Nonreactive [facility] Comment:Antibodies to HCV no t detected. Does NOT exclude the possibility of recent exposure to HCV. HepBsAg Nonreactive Nonreactive [facility] Blood 11/28/2020 5:33 PM CDT 11/28/2020 5:53 PM CDT us Jazzmine Mccartney NP LAB MICROBIO LOGY - GENERAL ORDERABLES Edited Result - Final [facility] [place] [address] from Last 3 Months or Most Recently Relevant to Health Maintenance [place] [facility] CHOICE [facility] HMO/PPO Address: [address] [address] [place] [address] [employer] OPEN ACCESS [place] [facility] CHOICE [facility] HMO/PPO Address: [address] [address] [place] [address] [employer] OPEN ACCESS [place] [employer] [place] ACCESS [facility] CHOICE [facility] HMO/PPO Address: [address] [address] [place] [address] Advance Directives For more information, please contact: [phone] Documents on File Type Date Recorded Patient Community Development Aide Expl anation Power of Roofing Superintendent 10/21/2021 12:58 PM ADVANCE DIRECTIVE 10/14/2019 12:35 [...] 5:09 PM 01/02/2021 6:56 PM Care Teams Applications Sales Representative Relationship Specialty Start Date End Date Zoila Gleason MD [address] [address] PCP - General 09/29/16 Rupal Isabel MD [address] [place] [address] [address] [place] [address] Referring Physician Allergy and Immunology 01/11/19 Rekha Osborne MD [address] [place] [address] Medical Oncologist/Registered Private Duty Nurse Hematology 05/11/20
--- OUTSIDE RECORDS SUMMARY | 2024-08-31 15:23 | XMS_ITS | Encounter Summary ---
Author Organization [facility] Address [address] [place] [address] Phone Care Team Providers Care Silk Worker Name Role Phone Zoila Gleason MD Primary Care Provider Rupal Isabel MD Unavailable [phone] Rekha Osborne MD Unavailable [phone] Mayuri Lyn RN Unavailable Michelle Colin SEX CRIMES DETECTIVE Unavailable [phone] Encounter Details Date Type Department Care Team [...] on file Legal Sex Male 1:53 AM SOLID WASTE DIVISION SUPERVISOR Gender Identity Male 10/02/2023 12:44 PM [...] COVID: Suspected 04/21/2020 04/21/2020 04/21/2020 11:24 AM SOLID WASTE DIVISION SUPERVISOR Respiratory Infection (MICKEY), contact + droplet Comment:Automatically added due to negative COVID-19 result. 04/21/2020 04/21/2020 05/05/2020 3:0 6 AM SOLID WASTE DIVISION SUPERVISOR COVID: Suspected 04/21/2020 04/21/2020 04/21/2020 6:48 PM SOLID WASTE DIVISION SUPERVISOR COVID: Suspected 09/25/2020 09/25/2020 09/25/2020 10:11 AM CDT Rhino/Enterovirus 09/25/2020 09/25/2020 10/02/2020 3:05 AM CDT COVID: Recovered 11/29/2020 11/29/2020 03/29/2021 3:05 AM SOLID WASTE DIVISION SUPERVISOR COVID: Suspected 10/09/2021 10/09/2021 10/09/2021 9:37 AM CDT COVID: Suspected 03/06/2022 03/06/2022 03/06/2022 9:30 AM SOLID WASTE DIVISION SUPERVISOR RSV, droplet 03/06/2022 03/06/2022 03/13/2022 3:05 AM SOLID WASTE DIVISION SUPERVISOR COVID: Suspected 06/26/2022 06/26/2022 06/26/2022 5:59 PM CDT Coronavirus, droplet 06/26/2022 06/26/2022 023 3:06 AM CDT documented as of this encounter Care Teams Silk Worker Relationship Specialty Start Date End Date Zoila Gleason MD [address] [place] [address] PCP - General 09/29/16 Rupal Isabel MD [address] [place] [address] [address] Referring Physician Allergy and Immunology 01/11/19 Rekha Osborne MD [address] [place] [address] Medical Oncologist/Story Teller Hematology 05/11/20 Mayuri Lyn, RN 4590 [facility] [address] [place] [address] SHOP Outpatient Spool Carrier 12/04/20 01/04/21 Michelle Colin [facility] 2[address] [facility] ([facility]) Mailstop [phone] [place] [address] SHOP Outpatient Spool Carrier 10/19/21 11/16/21 documented as of this encounter
--- OUTSIDE RECORDS SUMMARY | 2024-08-31 15:23 | XMS_ITS | Encounter Summary ---
Author Organization [facility] Address [address] [place] [address] Phone Care Team Providers Care Material Expediter Name Role Phone Zoila Gleason MD Primary Care Provider Rupal Isabel MD Unavailable [phone] Rekha Osborne MD Unavailable [phone] Mayuri Lyn RN Unavailable Michelle Colin BANDAGE WINDING MACHINE OPERATOR Unavailable Encounter Details Date Type [...] than three times a week 12/10/2020 Attends Faith Services Not on file 12/10 Active Member [...] on file Legal Sex Male 1:53 AM LEGAL SUPPORT MANAGER Gender Identity Male 10/02/2023 12:44 PM [...] COVID: Recovered 11/29/2020 11/29/2020 03/29/2021 3:05 AM LEGAL SUPPORT MANAGER COVID: Suspected 10/09/2021 10/09/2021 10/09/2021 9:37 AM CDT COVID: Suspected 03/06/2022 03/06/2022 03/06/2022 9:30 AM LEGAL SUPPORT MANAGER RSV, droplet 03/06/2022 03/06/2022 03/13/2022 3:05 AM LEGAL SUPPORT MANAGER COVID: Suspected 06/26/2022 06/26/2022 06/26/2022 5:59 PM CDT Coronavirus, droplet 06/26/2022 06/26/2022 023 3:06 AM CDT documented as of this encounter Care Teams Material Expediter Relationship Specialty Start Date End Date Zoila Gleason MD [address] [place] [address] PCP - General 09/29/16 Rupal Isabel MD 10 [facility] [address] [place] [address] Referring Physician Allergy and Immunology 01/11/19 Rekha Osborne MD [address] [place] [address] Medical Oncologist/Fulling Machine Operator Hematology 05/11/20 Mayuri Lyn, RN 4590 [facility] [address] [place] [address] SHOP Outpatient Photo Mask Cleaner 12/04/20 01/04/21 Michelle Colin LCSW 4590 [facility] ([facility] Mailstop [phone] [place] [address] SHOP Outpatient Photo Mask Cleaner 10/19/21 11/16/21 documented as of this encounter
--- OUTSIDE RECORDS SUMMARY | 2024-08-31 15:23 | XMS_ITS | Encounter Summary ---
Author Organization [facility] Address [address] [place] [address] Phone Care Team Providers Care Christmas Tree Contractor Name Role Phone Zoila Gleason MD Primary Care Provider Rupal Isabel MD Unavailable [phone] Rekha Osborne MD Unavailable [phone] Mayuri Lyn RN Unavailable Michelle Colin MILLINERY DESIGNER Unavailable [phone] Encounter Details Date Type Department Care Team [...] on file Legal Sex Male 1:53 AM SALVAGE ENGINEER Gender Identity Male 10/02/2023 12:44 PM [...] COVID: Suspected 04/21/2020 04/21/2020 04/21/2020 11:24 AM SALVAGE ENGINEER Respiratory Infection (MICKEY), contact + droplet Comment:Automatically added due to negative COVID-19 result. 04/21/2020 04/21/2020 05/05/2020 3:0 6 AM SALVAGE ENGINEER COVID: Suspected 04/21/2020 04/21/2020 04/21/2020 6:48 PM SALVAGE ENGINEER COVID: Suspected 09/25/2020 09/25/2020 09/25/2020 10:11 AM CDT Rhino/Enterovirus 09/25/2020 09/25/2020 10/02/2020 3:05 AM CDT COVID: Recovered 11/29/2020 11/29/2020 03/29/2021 3:05 AM SALVAGE ENGINEER COVID: Suspected 10/09/2021 10/09/2021 10/09/2021 9:37 AM CDT COVID: Suspected 03/06/2022 03/06/2022 03/06/2022 9:30 AM SALVAGE ENGINEER RSV, droplet 03/06/2022 03/06/2022 03/13/2022 3:05 AM SALVAGE ENGINEER COVID: Suspected 06/26/2022 06/26/2022 06/26/2022 5:59 PM CDT Coronavirus, droplet 06/26/2022 06/26/2022 023 3:06 AM CDT documented as of this encounter Care Teams Christmas Tree Contractor Relationship Specialty Start Date End Date Zoila Gleason MD [address] [place] [address] PCP - General 09/29/16 Rupal Isabel MD 10 [facility] [address] [address] Referring Physician Allergy and Immunology 01/11/19 Rekha Osborne MD [address] [place] [address] Medical Oncologist/Cashier Checker Hematology 05/11/20 Mayuri Lyn, RN [address] [facility] [address] [place] [address] SHOP Outpatient Social Scientist 12/04/20 01/04/21 Michelle Colin LCSW 5782 [facility] ([facility]) Mailstop [phone] [place] [address] SHOP Outpatient Social Scientist 10/19/21 11/16/21 documented as of this encounter
--- OUTSIDE RECORDS SUMMARY | 2024-08-31 15:23 | XMS_ITS | Encounter Summary ---
Author Organization [facility] Address [address] [place] [address] Care Team Providers Care Annealing Furnace Operator Name Role Phone Zoila Gleason MD Primary Care Provider Rupal Isabel MD Unavailable [phone] Rekha Osborne MD Unavailable [phone] Mayuri Lyn RN Unavailable [phone] Michelle Colin [facility] Unavailable [phone] Encounter Details Date Type Department Care Team (Late st Contact Info) Description 11/12/2020 Telephone [facility] [address] [place] [address] Aiyana Lovelace, ZOFIA Social History Tobacco [...] on file Legal Sex Male 1:53 AM ORTHODONTIC BAND MAKER Gender Identity Male 10/02/2023 12:44 PM CDT Sexual Orientation Don't know 11/15/2020 1: 06 PM CDT documented as of this encounter Plan of Treatment Not on file documented as of this encounter Visit Diagnoses Not on filedocumented in this encounter Additional Health Concerns Infection Onset Date Last Indicated Resolved Time COVID: Recovered 11/29/2020 11/29/2020 03/29/2021 3:05 AM ORTHODONTIC BAND MAKER COVID: Suspected 10/09/2021 10/09/2021 10/09/2021 9:37 AM CDT COVID: Suspected 03/06/2022 03/06/2022 03/06/2022 9:30 AM ORTHODONTIC BAND MAKER RSV, droplet 03/06/2022 03/06/2022 03/13/2022 3:05 AM ORTHODONTIC BAND MAKER COVID: Suspected 06/26/2022 06/26/2022 06/26/2022 5:59 PM CDT Coronavirus, droplet 06/26/2022 06/26/2022 023 3:06 AM CDT documented as of this encounter Care Teams Annealing Furnace Operator Relationship Specialty Start Date End Date Zoila Gleason MD [address] [place] [address] PCP - General 09/29/16 Rupal Isabel MD 10 [facility] [address] [place] [address] Referring Physician Allergy and Immunology 01/11/19 Rekha Osborne MD [address] [place] [address] Medical Oncologist/Plumbing Warehouse Helper Hematology 05/11/20 Mayuri Lyn, RN 4590 [facility] [address] [place] [address] SHOP Outpatient Product Builder 12/04/20 01/04/21 Michelle Colin LCSW 4590 [facility] ([facility] Mailstop [phone] [place] [address] SHOP Outpatient Product Builder 10/19/21 11/16/21 documented as of this encounter
--- OUTSIDE RECORDS SUMMARY | 2024-08-31 15:23 | XMS_ITS | Encounter Summary ---
Author Organization [facility] Address [address] [place] [address] Phone Care Team Providers Care Floorperson Name Role Phone Zoila Gleason MD Primary Care Provider Rupal Isabel MD Unavailable [phone] Rekha Osborne MD Unavailable [phone] Mayuri Lyn RN Unavailable Michelle Colin C.O.D. CLERK Unavailable Encounter Details Date Type Department [...] on file Legal Sex Male 1:53 AM BIOLOGY RESEARCH ASSISTANT Gender Identity Male 10/02/2023 12:44 PM [...] COVID: Recovered 11/29/2020 11/29/2020 03/29/2021 3:05 AM BIOLOGY RESEARCH ASSISTANT COVID: Suspected 10/09/2021 10/09/2021 10/09/2021 9:37 AM CDT COVID: Suspected 03/06/2022 03/06/2022 03/06/2022 9:30 AM BIOLOGY RESEARCH ASSISTANT RSV, droplet 03/06/2022 03/06/2022 03/13/2022 3:05 AM BIOLOGY RESEARCH ASSISTANT COVID: Suspected 06/26/2022 06/26/2022 06/26/2022 5:59 PM CDT Coronavirus, droplet 06/26/2022 06/26/2022 023 3:06 AM CDT documented as of this encounter Care Teams Floorperson Relationship Specialty Start Date End Date Zoila Gleason MD [address] [place], [place] [id number] PCP - General 09/29/16 Rupal Isabel MD [address] [facility] [address] [place], [place] [id number] Referring Physician Allergy and Immunology 01/11/19 Rekha Osborne MD [address] [place], [place] [id number] Medical Oncologist/Driver License Examiner Hematology 05/11/20 Mayuri Lyn, RN [address] [facility] [address] [place] [address] SHOP Outpatient Recording Studio Intern 12/04/20 01/04/21 Michelle Colin, ROSALIE [address] [facility] ([facility]) Mailstop [phone] [place] [address] SHOP Outpatient Recording Studio Intern 10/19/21 11/16/21 documented as of this encounter
--- OUTSIDE RECORDS SUMMARY | 2024-08-31 15:23 | XMS_ITS | Encounter Summary ---
Author Organization [facility] Address [address] [place] [address] Phone Care Team Providers Care Rim Turning Machine Operator Name Role Phone Zoila Gleason MD Primary Care Provider Rupal Isabel MD Unavailable [phone] Rekha Osborne MD Unavailable [phone] Michelle Colin [facility] Unavailable [phone] Encounter Details Date Type Department Care Team [...] file Legal Sex Male 1:53 AM CLINICAL RESEARCH DIRECTOR Gender Identity Male 10/02/2023 12:44 PM [...] Suspected 03/06/2022 03/06/2022 03/06/2022 9:30 AM CLINICAL RESEARCH DIRECTOR RSV, droplet 03/06/2022 03/06/2022 03/13/2022 3:05 AM CLINICAL RESEARCH DIRECTOR COVID: Suspected 06/26/2022 06/26/2022 06/26/2022 5:59 PM CDT Coronavirus, droplet 06/26/2022 06/26/2022 023 3:06 AM CDT documented as of this encounter Care Teams Rim Turning Machine Operator Relationship Specialty Start Date End Date Zoila Gleason MD [address] [place] [address] PCP - General 09/29/16 Rupal Isabel MD 10 [facility] [address] [place] [address] Referring Physician Allergy and Immunology 01/11/19 Rekha Osborne MD [address] [place], [place] [id number] Medical Oncologist/Client Care Specialist Hematology 05/11/20 Michelle Colin LCSW 45[address] [facility] ([facility] [place] [place]) Mailstop [phone] [place] [address] SHOP Outpatient Auto Body Repair Teacher 10/19/21 11/16/21 documented as of this encounter
--- OUTSIDE RECORDS SUMMARY | 2024-08-31 15:23 | XMS_ITS | Encounter Summary ---
Author Organization [facility] Address [address] [place] [address] Phone Care Team Providers Care Museum Security Chief Name Role Phone Zoila Gleason MD Primary Care Provider Rupal Isabel MD Unavailable [phone] Rekha Osborne MD Unavailable [phone] Mayuri Lyn RN Unavailable [phone] Michelle Colin PACKAGING TECHNICIAN Unavailable Encounter Details Date Type Department Care [...] on file Legal Sex Male 1:53 AM URGENT CARE TECHNICIAN Gender Identity Male 10/02/2023 12:44 PM [...] COVID: Recovered 11/29/2020 11/29/2020 03/29/2021 3:05 AM URGENT CARE TECHNICIAN COVID: Suspected 10/09/2021 10/09/2021 10/09/2021 9:37 AM CDT COVID: Suspected 03/06/2022 03/06/2022 03/06/2022 9:30 AM URGENT CARE TECHNICIAN RSV, droplet 03/06/2022 03/06/2022 03/13/2022 3:05 AM URGENT CARE TECHNICIAN COVID: Suspected 06/26/2022 06/26/2022 06/26/2022 5:59 PM CDT Coronavirus, droplet 06/26/2022 06/26/2022 023 3:06 AM CDT documented as of this encounter Care Teams Museum Security Chief Relationship Specialty Start Date End Date Zoila Gleason MD [address] [place] [address] PCP - General 09/29/16 Rupal Isabel MD [address] [place] [address] [address] [place] [address] Referring Physician Allergy and Immunology 01/11/19 Rekha Osborne MD [address] [place] [address] Medical Oncologist/Nurse Practitioner Hospitalist Hematology 05/11/20 Mayuri Lyn, RN [address] [facility] [address] [place] [address] SHOP Outpatient Lurer 12/04/20 01/04/21 Michelle Colin LCSW 45[address] [facility] ([facility]) Mailstop [phone] [place] [address] SHOP Outpatient Lurer 10/19/21 11/16/21 documented as of this encounter
[2024-08-31 15:39] LABS: Basophils Absolute Auto 0.2 K/mm3 (0.0-0.1); Basophils Percent Auto 0.8 % (0.2-1.2); Eosinophils Absolute Auto 0.1 K/mm3 (0-0.3); Eosinophils Percent Auto 0.3 % (0-4.4); Hematocrit 51.8 % (42.0-52.0); Hemoglobin 17.2 g/dL (14.0-18.0); Immature Granulocyte Absolute 0.21 K/mm3 (0.00-0.031); Immature Granulocyte Percent A 1.1 % (0-0.5); Immature Platelet Fraction Pct 10.1 % (0.9-11.2); Lymphocytes Percent Auto 4.8 % (18.3-44.2); Mean Corpuscular HGB Conc 33.2 g/dl (32-36); Mean Corpuscular Hemoglobin 31.3 pg (26-34); Mean Corpuscular Volume 94.4 fl (80-100); Mean Platelet Volume 12.8 fl (7.4-10.4); Monocytes Percent Auto 5.3 % (2.6-8.5); Neutrophils Absolute Auto 16.5 K/mm3 (1.3-6.7); Neutrophils Percent Auto 87.7 % (45.5-73.1); Platelet Count Result 83 k/mm3 (150-375); Red Blood Count 5.49 M/mm3 (4.6-6.20); Red Cell Distribution Width 18.1 % (11.5-14.5); White Blood Count 18.8 K/mm3 (4.5-10.0)
[2024-08-31] MEDS: SODIUM CHLORIDE 0.9% IV 1,000 ML 999 ML IV CONT ×2 (15:42→18:31)
[2024-08-31 15:46] LABS: Lactic Acid Reflex 1.6 mmol/L (0.7-2.0)
[2024-08-31 15:47] LABS: Alanine Aminotransferase 32 U/L (6-50); Albumin Level 3.8 g/dL (3.5-5.1); Alkaline Phosphatase 98 U/L (38-126); Anion Gap 12 mmol/L (4-12); Aspartate Amino Transferase 28 U/L (17-59); Bilirubin,Total 0.4 mg/dL (0.2-1.3); Blood Urea Nitrogen 27 mg/dL (9-20); Calcium 8.5 mg/dL (8.4-10.2); Carbon Dioxide 19 mmol/L (22-30); Chloride 109 mmol/L (98-107); Estimated CRCL calculation 80 ml/min; Estimated Glomerular Filt Rate > 60; Glucose 134 mg/dL (65-110); Lipase 22 U/L (23-300); Potassium 3.8 mmol/L (3.4-5.0); Sodium 140 mmol/L (137-145)
[2024-08-31 15:54] LABS: INR 1.1; Prothrombin Time 14.6 Seconds (11.1-14.7)
[2024-08-31 15:55] LABS: Platelet Estimate Decreased (Adequate)
[2024-08-31 15:56] LABS: Schistocytes None Seen
[2024-08-31 15:59] LABS: Troponin I < 0.012 ng/mL (0.000-0.034)
[2024-08-31 16:13] LABS: Influenza A QL RT-PCR Negative (Negative); Influenza B QL RT-PCR Negative (Negative); RSV RNA, RT-PCR Negative (Negative); SARS-CoV-2 RNA PCR Negative (Negative)
[2024-08-31] MEDS: SODIUM CHLORIDE 0.9% IV 900 ML 999 ML IV CONT (16:54)
[2024-08-31] MEDS: HYDROCORTISONE SODIUM SUCCINATE 100 MG/2 ML VIAL IV PUSH (16:56)
[2024-08-31 17:23] LABS: Add Urine Microscopic? YES; Appearance Urine Clear (Clear); Bacteria Urine 1+ /hpf; Bilirubin Urine Negative (Negative); Blood Urine Negative (Negative); Color Urine Yellow (Yellow); Glucose Urine UA Negative (Negative); Ketones Urine Negative (Negative); Leukocyte Esterase Ur Trace LEU/UL (Negative); Nitrate Urine Negative (Negative); Non Pathogenic Casts 0-2; Protein Urine Negative (Negative); RBC Urine 0-2 /hpf (0-2); Specific Grav Ur > 1.045 (1.001-1.035); Squamous Epithelial Cell Urine Occasional /hpf (Few); Urobilinogen Urine 0.2 mg/dL (<2.0); pH Urine 5.5 (5.0-9.0)
--- NOTE | 2024-08-31 18:57 | ED_ITS ---
HPI - General Adult General Chief complaint: Nausea/Vomiting/Diarrhea <Imer Walden MD - Last Filed: 08/31/24 19:12> Stated complaint: Low BP 78/48, N/V/D-fever <Imer Walden MD - Last Filed: 08/31/24 19:12> Time Seen by Provider: 08/31/24 15:01 <Imer Walden MD - Last Filed: 08/31/24 19:12> History of Present Illness HPI narrative: Patient's father is Dr. Viera. (c) [phone] Patient is nonverbal or minimally communicative This is a 28-year-old male with history of Down's, adrenal insufficiency, hypothyroid, common variable immunodeficiency presenting for nausea vomiting diarrhea and low blood pressures. Gastroenteritis has been going through the patient's tonsil. Last night he developed acute onset of nausea vomiting and diarrhea. Family reports a low-grade fever although he is afebrile here. Patient received a dose of stress steroids at home. Patient had low blood pressures at home which prompted them to come to the emergency room. <Imer Walden MD - Last Filed: 08/31/24 19:12> Related Data Home medications: Home Medications ?Medication ?Instructions ?Recorded ?Confirmed ?Last Taken ?Type cholecalciferol (vitamin D3) 125 125 mcg PO EVERY OTHER DAY 10/08/21 09/19/23 10/15/22 09:00 History mcg (5,000 unit) tablet (Vitamin D3) folic acid 800 mcg tablet 0.8 mg PO QACLUNCH 10/08/21 09/19/23 10/15/22 09:00 History multivitamin with minerals-folic 1 tablet PO QACLUNCH 10/08/21 09/19/23 10/15/22 09:00 History acid 0.4 mg tablet prasterone (DHEA) 25 mg tablet 25 mg PO QACLUNCH 10/08/21 09/19/23 10/15/22 12:00 History (DHEA) melatonin 3 mg tablet 5 mg PO HS PRN Insomnia 10/15/22 09/19/23 Unknown History ferrous sulfate 325 mg (65 mg 325 mg PO DAILY 09/24/23 09/24/23 Unknown History iron) tablet <Imer Walden MD - Last Filed: 08/31/24 19:12> Allergies/adverse reactions: Allergies Allergy/AdvReac Type Severity Reaction Status Date / Time gluten Allergy Diarrhea Verified 08/31/24 14:57 <Imer Walden MD - Last Filed: 08/31/24 19:12> [facility] Past Medical History Medical History: Medical History Asplenia after surgical procedure Acquired hypothyroidism Chronic interstitial lung disease Fracture of distal end of left fibula Incomplete rotation intestine Heart murmur Nystagmus Common variable immunodeficiency Autism spectrum disorder Adrenal insufficiency Down syndrome Rios syndrome Hypothyroidism, unspecified Anemia <Imer Walden MD - Last Filed: 08/31/24 19:12> Surgical History Surgical History: Surgical History Hx of splenectomy History of ventricular septal defect repair Post-splenectomy <Imer Walden MD - Last Filed: 08/31/24 19:12> Family History Family History: Family History Father Prostate carcinoma <Imer Walden MD - Last Filed: 08/31/24 19:12> Social History Social History: Social History Social History: Surrogate medical decision maker: Stefania Viera, parents. Code status: Full code. Smoking status: Never smoker Second hand tobacco smoke exposure: No Alcohol intake: never Substance use: never Do You Feel Safe in your Home?: Yes Lack of Transportation: No Lack of Food: Never True Current Housing: I Have Housing Concerned About Future Housing: No Difficulty Paying Gas/Electric Bills: No Difficulty Paying for Meds: No Currently Unemployed: No Education: Don't Know Difficulty w/ Childcare or Family Care: No Additional living arrangements comments: He lives at home with his parents. He is dependent for care. Additional occupation/education comments: Disabled Spiritual care concerns: No <Imer Walden MD - Last Filed: 08/31/24 19:12> Exam 2 Narrative: APPEARANCE: No apparent distress. Alert, responding to mother and staff members Head: atraumatic. EYES: EOMI, NOSE: Atraumatic NECK: Trachea midline RESPIRATORY: No increased rate of breathing clear to auscultation CARDIOVASCULAR: RRR, no peripheral edema ABDOMINAL: Non-distended soft nontender MUSCULOSKELETAl: No obvious deformities NEURO: Alert. Moving 4/4 extremities SKIN:: Warm, dry. Normal color PSYCHIATRIC: Nonverbal <Imer Walden MD - Last Filed: 08/31/24 19:12> Course Course Emergency Course: Patient care resume from previous physician at 8:00 p.m.. Patient is being p.o. challenged and currently improved after fluid hydration and diagnosis currently pointing towards gastroenteritis. Patient will be sent home with a course of cefdinir, blood pressures improved and is at his baseline according to the EMR with chronically low blood pressure. Patient's primary care provider and family members were spoken to regarding plan of care and they are comfortable with this and have very close follow-up and medications at home to help treat his chronic medical conditions. There were given very strict return precautions and discharged home with cefdinir. <Patrick Lakhani MD - Last Filed: 09/01/24 07:17> Vital Signs Vital signs: Vital Signs Pulse Rate 83 08/31/24 15:04 Respiratory Rate 22 H 08/31/24 15:04 Pulse Oximetry 93 08/31/24 15:04 Temperature 36.9 C 08/31/24 15:32 Pulse Rate 77 08/31/24 20:35 Respiratory Rate 20 08/31/24 20:35 Blood Pressure 111/59 L 08/31/24 20:35 Pulse Oximetry 98 08/31/24 20:35 Oxygen Delivery Room Air 08/31/24 15:32 <Imer Walden MD - Last Filed: 08/31/24 19:12> Vital Signs Pulse Rate 83 08/31/24 15:04 Respiratory Rate 22 H 08/31/24 15:04 Pulse Oximetry 93 08/31/24 15:04 Temperature 36.9 C 08/31/24 15:32 Pulse Rate 77 08/31/24 20:35 Respiratory Rate 20 08/31/24 20:35 Blood Pressure 111/59 L 08/31/24 20:35 Pulse Oximetry 98 08/31/24 20:35 Oxygen Delivery Room Air 08/31/24 15:32 <Patrick Lakhani MD - Last Filed: 09/01/24 07:17> Medical Decision Making MDM Narrative Medical decision making narrative: -Course: This is a 28-year-old male with down syndrome and complicated medical history presenting for hypotension in the of setting gastroenteritis. Broad workup obtained. Patient given 30 cc/kilogram bolus IV fluids. Given stress dosing hydrocortisone 100 mg IV. White count is elevated 18.8 which is expected after receiving stress dose steroids at home. Lactic is normal. Kidney function at baseline. Urine was highly concentrated indicating dehydration with 11-20 WBCs, 1+ bacteria, trace leuk esterase. Most recent culture results showed E coli of the blood that was sensitive to ceftriaxone. Patient given 1 mg IV ceftriaxone. Viral swabs are negative. CT chest was interpreted as possible pneumonia although this is likely chronic interstitial lung disease. He has no symptoms of pneumonia at this time. His CT abdomen pelvis showed inflammatory changes of the small bowel and colon consistent with gastroenteritis. Care was discussed at length with the patient's father Dr. Viera who is very knowledgeable about his sons medical condition. At this time the patient has received a 30 cc/kilogram bolus and stress dose steroids and still hypotensive at 85/48. We will give him 1 more L of fluids and feed him as he tends to be salt responsive and see his blood pressure responds appropriately. If so Dr. Viera would like the patient discharged home on oral antibiotics (cefdinir) to cover his urinary tract infection and they will monitor him closely return if his condition is to change. <Imer Walden MD - Last Filed: 08/31/24 19:12> -Course: This is a 28-year-old male with down syndrome and complicated medical history presenting for hypotension in the of setting gastroenteritis. Broad workup obtained. Patient given 30 cc/kilogram bolus IV fluids. Given stress dosing hydrocortisone 100 mg IV. White count is elevated 18.8 which is expected after receiving stress dose steroids at home. Lactic is normal. Kidney function at baseline. Urine was highly concentrated indicating dehydration with 11-20 WBCs, 1+ bacteria, trace leuk esterase. Most recent culture results showed E coli of the blood that was sensitive to ceftriaxone. Patient given 1 mg IV ceftriaxone. Viral swabs are negative. CT chest was interpreted as possible pneumonia although this is likely chronic interstitial lung disease. He has no symptoms of pneumonia at this time. His CT abdomen pelvis showed inflammatory changes of the small bowel and colon consistent with gastroenteritis. Care was discussed at length with the patient's father Dr. Viera who is very knowledgeable about his sons medical condition. At this time the patient has received a 30 cc/kilogram bolus and stress dose steroids and still hypotensive at 85/48. We will give him 1 more L of fluids and feed him as he tends to be salt responsive and see his blood pressure responds appropriately. If so Dr. Viera would like the patient discharged home on oral antibiotics (cefdinir) to cover his urinary tract infection and they will monitor him closely return if his condition is to change. <Patrick Lakhani MD - Last Filed: 09/01/24 07:17> Vital Signs Vital Signs: Vital Signs Pulse Rate 83 08/31/24 15:04 Respiratory Rate 22 H 08/31/24 15:04 Pulse Oximetry 93 08/31/24 15:04 Temperature 36.9 C 08/31/24 15:32 Pulse Rate 77 08/31/24 20:35 Respiratory Rate 20 08/31/24 20:35 Blood Pressure 111/59 L 08/31/24 20:35 Pulse Oximetry 98 08/31/24 20:35 Oxygen Delivery Room Air 08/31/24 15:32 <Imer Walden MD - Last Filed: 08/31/24 19:12> Vital Signs Pulse Rate 83 08/31/24 15:04 Respiratory Rate 22 H 08/31/24 15:04 Pulse Oximetry 93 08/31/24 15:04 Temperature 36.9 C 08/31/24 15:32 Pulse Rate 77 08/31/24 20:35 Respiratory Rate 20 08/31/24 20:35 Blood Pressure 111/59 L 08/31/24 20:35 Pulse Oximetry 98 08/31/24 20:35 Oxygen Delivery Room Air 08/31/24 15:32 <Patrick Lakhani MD - Last Filed: 09/01/24 07:17> Lab Data Result diagrams: 08/31/24 15:29 08/31/24 15:30 <Imer Walden MD - Last Filed: 08/31/24 19:12> Labs: Lab Results 08/31/24 08/31/24 08/31/24 Range/Units 15:29 15:30 15:31 WBC 18.8 H (4.5-10.0) K/mm3 RBC 5.49 (4.6-6.20) M/mm3 Hgb 17.2 (14.0-18.0) g/dL Hct 51.8 (42.0-52.0) % MCV 94.4 (80-100) fl MCH 31.3 (26-34) pg MCHC 33.2 (32-36) g/dl RDW 18.1 H (11.5-14.5) % Plt Count 83 L (150-375) k/mm3 MPV 12.8 H (7.4-10.4) fl Immature Gran % (Auto) 1.1 H (0-0.5) % Neut % (Auto) 87.7 H (45.5-73.1) % Lymph % (Auto) 4.8 L (18.3-44.2) % [place] % (Auto) 5.3 (2.6-8.5) % Eos % (Auto) 0.3 (0-4.4) % Baso % (Auto) 0.8 (0.2-1.2) % Lymph # (Auto) 0.90 (0.9-3.2) K/mm3 [place] # (Auto) 1.0 H (0.1-0.6) K/mm3 Eos # (Auto) 0.1 (0-0.3) K/mm3 Baso # (Auto) 0.2 H (0.0-0.1) K/mm3 Abs Immat Gran (auto) 0.21 H (0.00-0.031) K/mm3 Absolute Neuts (auto) 16.5 H (1.3-6.7) K/mm3 Absolute Nucleated RBC 0.000 (0.0-0.012) K/mm3 Band Neutrophils % Not Reportable Nucleated RBC % 0.0 (0.0-0.2) % Platelet Estimate Decreased (Adequate) % Immature Plt Fraction 10.1 (0.9-11.2) % Schistocytes None seen PT 14.6 (11.1-14.7) Seconds INR 1.1 APTT 25.0 (22.3-36.8) Seconds Sodium 140 (137-145) mmol/L Potassium 3.8 (3.4-5.0) mmol/L Chloride 109 H (98-107) mmol/L Carbon Dioxide 19 L (22-30) mmol/L Anion Gap 12 (4-12) mmol/L BUN 27 H (9-20) mg/dL Creatinine 1.08 (0.7-1.3) mg/dL Estim Creat Clear Calc 80 ml/min Estimated GFR > 60 (59 - ) Glucose 134 H (65-110) mg/dL Lactic Acid 1.6 (0.7-2.0) mmol/L Calcium 8.5 (8.4-10.2) mg/dL Total Bilirubin 0.4 (0.2-1.3) mg/dL AST 28 (17-59) U/L ALT 32 (6-50) U/L Alkaline Phosphatase 98 (38-126) U/L Troponin I < 0.012 (0.000-0.034) ng/mL Total Protein 7.0 (6.3-8.2) g/dL Albumin 3.8 (3.5-5.1) g/dL Lipase 22 L (23-300) U/L Urine Color (Yellow) Urine Appearance (Clear) Urine pH (5.0-9.0) Ur Specific [place] (1.001-1.035) Urine Protein (Negative) mg/dL Urine Glucose (UA) (Negative) mg/dL Urine Ketones (Negative) mg/dL Ur Blood (Man) (Negative) Urine Nitrate (Negative) Urine Bilirubin (Negative) Urine Urobilinogen (<2.0) mg/dL Leukocyte Esterase Rfl (Negative) MU/UL Urine RBC (0-2) /hpf Urine WBC (0-3) /hpf Ur Squamous Epith Cells (Few) /hpf Urine Bacteria /hpf Urine Casts Influenza A (RT-PCR) Negative (Negative) Influenza B (RT-PCR) Negative (Negative) RSV (RT-PCR) Negative (Negative) SARS-CoV-2 RNA (RT-PCR) Negative (Negative) 08/31/24 Range/Units 17:12 WBC (4.5-10.0) K/mm3 RBC (4.6-6.20) M/mm3 Hgb (14.0-18.0) g/dL Hct (42.0-52.0) % MCV (80-100) fl MCH (26-34) pg MCHC (32-36) g/dl RDW (11.5-14.5) % Plt Count (150-375) k/mm3 MPV (7.4-10.4) fl Immature Gran % (Auto) (0-0.5) % Neut % (Auto) (45.5-73.1) % Lymph % (Auto) (18.3-44.2) % [place] % (Auto) (2.6-8.5) % Eos % (Auto) (0-4.4) % Baso % (Auto) (0.2-1.2) % Lymph # (Auto) (0.9-3.2) K/mm3 [place] # (Auto) (0.1-0.6) K/mm3 Eos # (Auto) (0-0.3) K/mm3 Baso # (Auto) (0.0-0.1) K/mm3 Abs Immat Gran (auto) (0.00-0.031) K/mm3 Absolute Neuts (auto) (1.3-6.7) K/mm3 Absolute Nucleated RBC (0.0-0.012) K/mm3 Band Neutrophils % Nucleated RBC % (0.0-0.2) % Platelet Estimate (Adequate) % Immature Plt Fraction (0.9-11.2) % Schistocytes PT (11.1-14.7) Seconds INR APTT (22.3-36.8) Seconds Sodium (137-145) mmol/L Potassium (3.4-5.0) mmol/L Chloride (98-107) mmol/L Carbon Dioxide (22-30) mmol/L Anion Gap (4-12) mmol/L BUN (9-20) mg/dL Creatinine (0.7-1.3) mg/dL Estim Creat Clear Calc ml/min Estimated GFR (59 - ) Glucose (65-110) mg/dL Lactic Acid (0.7-2.0) mmol/L Calcium (8.4-10.2) mg/dL Total Bilirubin (0.2-1.3) mg/dL AST (17-59) U/L ALT (6-50) U/L Alkaline Phosphatase (38-126) U/L Troponin I (0.000-0.034) ng/mL Total Protein (6.3-8.2) g/dL Albumin (3.5-5.1) g/dL Lipase (23-300) U/L Urine Color Yellow (Yellow) Urine Appearance Clear (Clear) Urine pH 5.5 (5.0-9.0) Ur Specific [place] > 1.045 H (1.001-1.035) Urine Protein Negative (Negative) mg/dL Urine Glucose (UA) Negative (Negative) mg/dL Urine Ketones Negative (Negative) mg/dL Ur Blood (Man) Negative (Negative) Urine Nitrate Negative (Negative) Urine Bilirubin Negative (Negative) Urine Urobilinogen 0.2 (<2.0) mg/dL Leukocyte Esterase Rfl Trace H (Negative) MU/UL Urine RBC 0-2 (0-2) /hpf Urine WBC 11-20 H (0-3) /hpf Ur Squamous Epith Cells Occasional (Few) /hpf Urine Bacteria 1+ H /hpf Urine Casts 0-2 Influenza A (RT-PCR) (Negative) Influenza B (RT-PCR) (Negative) RSV (RT-PCR) (Negative) SARS-CoV-2 RNA (RT-PCR) (Negative) <Imer Walden MD - Last Filed: 08/31/24 19:12> Lab Results 08/31/24 08/31/24 08/31/24 Range/Units 15:29 15:30 15:31 WBC 18.8 H (4.5-10.0) K/mm3 RBC 5.49 (4.6-6.20) M/mm3 Hgb 17.2 (14.0-18.0) g/dL Hct 51.8 (42.0-52.0) % MCV 94.4 (80-100) fl MCH 31.3 (26-34) pg MCHC 33.2 (32-36) g/dl RDW 18.1 H (11.5-14.5) % Plt Count 83 L (150-375) k/mm3 MPV 12.8 H (7.4-10.4) fl Immature Gran % (Auto) 1.1 H (0-0.5) % Neut % (Auto) 87.7 H (45.5-73.1) % Lymph % (Auto) 4.8 L (18.3-44.2) % [place] % (Auto) 5.3 (2.6-8.5) % Eos % (Auto) 0.3 (0-4.4) % Baso % (Auto) 0.8 (0.2-1.2) % Lymph # (Auto) 0.90 (0.9-3.2) K/mm3 [place] # (Auto) 1.0 H (0.1-0.6) K/mm3 Eos # (Auto) 0.1 (0-0.3) K/mm3 Baso # (Auto) 0.2 H (0.0-0.1) K/mm3 Abs Immat Gran (auto) 0.21 H (0.00-0.031) K/mm3 Absolute Neuts (auto) 16.5 H (1.3-6.7) K/mm3 Absolute Nucleated RBC 0.000 (0.0-0.012) K/mm3 Band Neutrophils % Not Reportable Nucleated RBC % 0.0 (0.0-0.2) % Platelet Estimate Decreased (Adequate) % Immature Plt Fraction 10.1 (0.9-11.2) % Schistocytes None seen PT 14.6 (11.1-14.7) Seconds INR 1.1 APTT 25.0 (22.3-36.8) Seconds Sodium 140 (137-145) mmol/L Potassium 3.8 (3.4-5.0) mmol/L Chloride 109 H (98-107) mmol/L Carbon Dioxide 19 L (22-30) mmol/L Anion Gap 12 (4-12) mmol/L BUN 27 H (9-20) mg/dL Creatinine 1.08 (0.7-1.3) mg/dL Estim Creat Clear Calc 80 ml/min Estimated GFR > 60 (59 - ) Glucose 134 H (65-110) mg/dL Lactic Acid 1.6 (0.7-2.0) mmol/L Calcium 8.5 (8.4-10.2) mg/dL Total Bilirubin 0.4 (0.2-1.3) mg/dL AST 28 (17-59) U/L ALT 32 (6-50) U/L Alkaline Phosphatase 98 (38-126) U/L Troponin I < 0.012 (0.000-0.034) ng/mL Total Protein 7.0 (6.3-8.2) g/dL Albumin 3.8 (3.5-5.1) g/dL Lipase 22 L (23-300) U/L Urine Color (Yellow) Urine Appearance (Clear) Urine pH (5.0-9.0) Ur Specific [place] (1.001-1.035) Urine Protein (Negative) mg/dL Urine Glucose (UA) (Negative) mg/dL Urine Ketones (Negative) mg/dL Ur Blood (Man) (Negative) Urine Nitrate (Negative) Urine Bilirubin (Negative) Urine Urobilinogen (<2.0) mg/dL Leukocyte Esterase Rfl (Negative) MU/UL Urine RBC (0-2) /hpf Urine WBC (0-3) /hpf Ur Squamous Epith Cells (Few) /hpf Urine Bacteria /hpf Urine Casts Influenza A (RT-PCR) Negative (Negative) Influenza B (RT-PCR) Negative (Negative) RSV (RT-PCR) Negative (Negative) SARS-CoV-2 RNA (RT-PCR) Negative (Negative) 08/31/24 Range/Units 17:12 WBC (4.5-10.0) K/mm3 RBC (4.6-6.20) M/mm3 Hgb (14.0-18.0) g/dL Hct (42.0-52.0) % MCV (80-100) fl MCH (26-34) pg MCHC (32-36) g/dl RDW (11.5-14.5) % Plt Count (150-375) k/mm3 MPV (7.4-10.4) fl Immature Gran % (Auto) (0-0.5) % Neut % (Auto) (45.5-73.1) % Lymph % (Auto) (18.3-44.2) % [place] % (Auto) (2.6-8.5) % Eos % (Auto) (0-4.4) % Baso % (Auto) (0.2-1.2) % Lymph # (Auto) (0.9-3.2) K/mm3 [place] # (Auto) (0.1-0.6) K/mm3 Eos # (Auto) (0-0.3) K/mm3 Baso # (Auto) (0.0-0.1) K/mm3 Abs Immat Gran (auto) (0.00-0.031) K/mm3 Absolute Neuts (auto) (1.3-6.7) K/mm3 Absolute Nucleated RBC (0.0-0.012) K/mm3 Band Neutrophils % Nucleated RBC % (0.0-0.2) % Platelet Estimate (Adequate) % Immature Plt Fraction (0.9-11.2) % Schistocytes PT (11.1-14.7) Seconds INR APTT (22.3-36.8) Seconds Sodium (137-145) mmol/L Potassium (3.4-5.0) mmol/L Chloride (98-107) mmol/L Carbon Dioxide (22-30) mmol/L Anion Gap (4-12) mmol/L BUN (9-20) mg/dL Creatinine (0.7-1.3) mg/dL Estim Creat Clear Calc ml/min Estimated GFR (59 - ) Glucose (65-110) mg/dL Lactic Acid (0.7-2.0) mmol/L Calcium (8.4-10.2) mg/dL Total Bilirubin (0.2-1.3) mg/dL AST (17-59) U/L ALT (6-50) U/L Alkaline Phosphatase (38-126) U/L Troponin I (0.000-0.034) ng/mL Total Protein (6.3-8.2) g/dL Albumin (3.5-5.1) g/dL Lipase (23-300) U/L Urine Color Yellow (Yellow) Urine Appearance Clear (Clear) Urine pH 5.5 (5.0-9.0) Ur Specific [place] > 1.045 H (1.001-1.035) Urine Protein Negative (Negative) mg/dL Urine Glucose (UA) Negative (Negative) mg/dL Urine Ketones Negative (Negative) mg/dL Ur Blood (Man) Negative (Negative) Urine Nitrate Negative (Negative) Urine Bilirubin Negative (Negative) Urine Urobilinogen 0.2 (<2.0) mg/dL Leukocyte Esterase Rfl Trace H (Negative) MU/UL Urine RBC 0-2 (0-2) /hpf Urine WBC 11-20 H (0-3) /hpf Ur Squamous Epith Cells Occasional (Few) /hpf Urine Bacteria 1+ H /hpf Urine Casts 0-2 Influenza A (RT-PCR) (Negative) Influenza B (RT-PCR) (Negative) RSV (RT-PCR) (Negative) SARS-CoV-2 RNA (RT-PCR) (Negative) <Patrick Lakhani MD - Last Filed: 09/01/24 07:17> Discharge Plan Discharge Clinical Impression: Gastroenteritis <Imer Walden MD - Last Filed: 08/31/24 19:12> Patient Disposition: Home <Imer Walden MD - Last Filed: 08/31/24 19:12> Condition: Stable <Imer Walden MD - Last Filed: 08/31/24 19:12> Instructions: Antibiotic Form, Dehydration (ED), Gastroenteritis (ED) <Imer Walden MD - Last Filed: 08/31/24 19:12> Additional Instructions: Imaging studies point towards gastroenteritis. We will treat this with cefdinir. Follow-up on outpatient basis and you have any worsening symptoms such as intractable nausea, vomiting diarrhea, feeling dehydrated or any other concerns such as intractable fever please return to the emergency department at that time. <Imer Walden MD - Last Filed: 08/31/24 19:12> Patient Language: Scottish <Imer Walden MD - Last Filed: 08/31/24 19:12> Prescriptions: New cefdinir 300 mg capsule 300 mg PO Q12H Qty: 14 0RF No Action prasterone (DHEA) [DHEA] 25 mg Tablet 25 mg PO QACLUNCH folic acid 800 mcg Tablet 0.8 mg PO QACLUNCH multivit with min-folic acid 0.4 mg Tablet 1 tablet PO QACLUNCH cholecalciferol (vitamin D3) [Vitamin D3] 125 mcg (5,000 unit) Tablet 125 mcg PO EVERY OTHER DAY Rx Instructions: with lunch melatonin 3 mg Tablet 5 mg PO HS PRN (Reason: Insomnia) ferrous sulfate 325 mg (65 mg iron) Tablet 325 mg PO DAILY nystatin 100,000 unit/mL suspension 500,000 unit PO TID PRN (Reason: oral thrush) Qty: 200 0RF Rx Instructions: swish and spit (DME) needle (disp) 18 G [BD Regular Bevel [place]] 18 gauge x 1 needle See Rx Instructions .Route Qty: 10 2RF Rx Instructions: As directed to draw IM hydrocortisone for adrenal crisis albuterol sulfate 2.5 mg /3 mL (0.083 %) solution for nebulization 2.5 mg inhalation Q4-6H PRN (Reason: bronchospasm) Qty: 180 2RF ondansetron 4 mg tablet,disintegrating 4 mg PO Q8H PRN (Reason: nausea and vomiting) Qty: 10 0RF Solu-Cortef Act-O-Vial (PF) 100 mg/2 mL recon soln 100 mg IM DAILY PRN (Reason: adrenal crisis) Qty: 5 2RF (DME) BD Integra Syringe 3 mL 25 gauge x 1 syringe See Rx Instructions .Route Qty: 10 3RF Rx Instructions: As directed for adrenal crisis with IM hydrocortisone prednisone 10 mg tablet 10 mg PO DAILY Qty: 90 2RF Rx Instructions: take daily as directed for adrenal insuff. Take with prednisone 1mg tabs and/or prednisolone 5mg as directed by physician. cefuroxime axetil 500 mg tablet 500 mg PO BID Qty: 10 0RF levothyroxine 112 mcg tablet 112 mcg PO QAM Qty: 90 2RF azithromycin 250 mg tablet 250 mg PO DAILY 4 Days Qty: 4 0RF Rx Instructions: start on day 2 of therapy triamcinolone acetonide 0.1 % ointment 1 applic topical BID PRN (Reason: rash) Qty: 15 2RF dexamethasone 4 mg tablet 40 mg PO DAILY PRN (Reason: itp) 4 Days Qty: 40 1RF valacyclovir 500 mg tablet 1,000 mg PO Q8H PRN (Reason: shingles/herpes) 7 Days Qty: 60 1RF prednisolone 5 mg tablet See Rx Instructions PO QAM Qty: 90 3RF Rx Instructions: 1-3 tablets daily as directed by physician prednisone 1 mg tablet 1 mg PO DAILY Qty: 120 3RF Rx Instructions: 1-5 tablets daily prn for adrenal insuff. take with prednisolone 5mg or prednisone 10mg as directed Breztri Aerosphere 160-9-4.8 mcg/actuation HFA aerosol inhaler 2 inh inhalation BID Qty: 10.7 2RF sertraline 100 mg tablet 100 mg PO DAILY Qty: 90 3RF <Imer Walden MD - Last Filed: 08/31/24 19:12> Follow-up/Referrals: Zoila Gleason MD [Primary Care Provider] - <Imer Walden MD - Last Filed: 08/31/24 19:12> Time of Disposition: 20:06 <Imer Walden MD - Last Filed: 08/31/24 19:12> 20:06 <Patrick Lakhani MD - Last Filed: 09/01/24 07:17>
--- NOTE | 2024-08-31 19:42 | PC.NURSE ---
umed care of patient after receiving bedside report from ZOFIA Sweeney @ [phone]
== END 2024-08-31 20:35 | disposition home or self-care (01) ==
PROVIDERS: Emergency Provider Emergency Medicine; PCP Pediatrics
DX: K52.9 Noninfective gastroenteritis and colitis, unspecified (principal); Q90.9 Down syndrome, unspecified; E27.40 Unspecified adrenocortical insufficiency; E03.9 Hypothyroidism, unspecified; D83.9 Common variable immunodeficiency, unspecified; Z20.822 Contact with and (suspected) exposure to COVID-19; Z79.899 Other long term (current) drug therapy
CPT/HCPCS: 36415; 71045; 71260; 74177; 80053; 81001; 83605; 83690; 84484; 85025; 85055; 85610; 85730; 87040; 87077; 87086; 87186; 87637; 93005; 96361; 96365; 96375; 99284; J0696; J1720; J7030; Q9967

== ENCOUNTER 2024-10-18 15:02 | Outpatient (CLI) | payer BC, MEDICAID, SELFPAY ==
--- OUTSIDE RECORDS SUMMARY | 2024-10-18 15:05 | XMS_ITS | Encounter Summary ---
Author Organization [facility] Address [address] [place] [address] Phone Care Team Providers Care Jewel Stripper Name Role Phone Zoila Gleason MD Primary Care Provider Rupal Isabel MD Unavailable [phone] Rekha Osborne MD Unavailable [phone] Mayuri Lyn RN Unavailable Michelle Colin CHEMICAL PROCESSING LABORER Unavailable [phone] Encounter Details Date Type Department Care Team [...] on file Legal Sex Male 1:53 AM BASKET MAKER Gender Identity Male 10/02/2023 12:44 PM [...] COVID: Suspected 04/21/2020 04/21/2020 04/21/2020 11:24 AM BASKET MAKER Respiratory Infection (MICKEY), contact + droplet Comment:Automatically added due to negative COVID-19 result. 04/21/2020 04/21/2020 05/05/2020 3:0 6 AM BASKET MAKER COVID: Suspected 04/21/2020 04/21/2020 04/21/2020 6:48 PM BASKET MAKER COVID: Suspected 09/25/2020 09/25/2020 09/25/2020 10:11 AM CDT Rhino/Enterovirus 09/25/2020 09/25/2020 10/02/2020 3:05 AM CDT COVID: Recovered 11/29/2020 11/29/2020 03/29/2021 3:05 AM BASKET MAKER COVID: Suspected 10/09/2021 10/09/2021 10/09/2021 9:37 AM CDT COVID: Suspected 03/06/2022 03/06/2022 03/06/2022 9:30 AM BASKET MAKER RSV, droplet 03/06/2022 03/06/2022 03/13/2022 3:05 AM BASKET MAKER COVID: Suspected 06/26/2022 06/26/2022 06/26/2022 5:59 PM CDT Coronavirus, droplet 06/26/2022 06/26/2022 023 3:06 AM CDT documented as of this encounter Care Teams Jewel Stripper Relationship Specialty Start Date End Date Zoila Gleason MD [address] [place] [address] PCP - General 09/29/16 Rupal Isabel MD [address] [place] [address] [address] Referring Physician Allergy and Immunology 01/11/19 Rekha Osborne MD [address] [place] [address] Medical Oncologist/Cotton Chopper Hematology 05/11/20 Mayuri Lyn, RN [address] [facility] [address] [place] [address] SHOP Outpatient Automobile Glass Technician 12/04/20 01/04/21 Michelle Colin [facility] 3[address] [facility] ([facility]) Mailstop [phone] [place] [address] SHOP Outpatient Automobile Glass Technician 10/19/21 11/16/21 documented as of this encounter
--- OUTSIDE RECORDS SUMMARY | 2024-10-18 15:05 | XMS_ITS | Encounter Summary ---
Author Organization [facility] Address [address] [place] [address] Phone Care Team Providers Care Fire Warden Name Role Phone Zoila Gleason MD Primary Care Provider [phone] Rupal Isabel MD Unavailable [phone] Rekha Osborne MD Unavailable [phone] Mayuri Lyn RN Unavailable Michelle Colin [facility] Unavailable [phone] Encounter Details Date Type Department Care Team [...] than three times a week 12/10/2020 Attends Hindu Services Not on file 12/10 Active Member [...] slept in a prison (including now)? No 12/10/2020 Sex and Gender Information Value Date Recorded Sex Assigned at Not on file Legal Sex Male 1:53 AM SALES AND MARKETING PROFESSIONAL Gender Identity Male 10/02/2023 12:44 PM CDT [...] Recovered 11/29/2020 11/29/2020 03/29/2021 3:05 AM SALES AND MARKETING PROFESSIONAL COVID: Suspected 10/09/2021 10/09/2021 10/09/2021 9:37 AM CDT COVID: Suspected 03/06/2022 03/06/2022 03/06/2022 9:30 AM SALES AND MARKETING PROFESSIONAL RSV, droplet 03/06/2022 03/06/2022 03/13/2022 3:05 AM SALES AND MARKETING PROFESSIONAL COVID: Suspected 06/26/2022 06/26/2022 06/26/2022 5:59 PM CDT Coronavirus, droplet 06/26/2022 06/26/2022 023 3:06 AM CDT documented as of this encounter Care Teams Fire Warden Relationship Specialty Start Date End Date Zoila Gleason MD [address] [place] [address] PCP - General 09/29/16 Rupal Isabel MD 10 [facility] [address] [place] [address] Referring Physician Allergy and Immunology 01/11/19 Rekha Osborne MD [address] [place] [address] [place] [address] Medical Oncologist/Engine Turner Hematology 05/11/20 Mayuri Lyn, RN [address] [facility] [address] [place] [address] SHOP Outpatient Surface Lay Out Technician 12/04/20 01/04/21 Michelle Colin LCSW 45[address] [facility] ([facility] Mailstop [phone] [place] [address] SHOP Outpatient Surface Lay Out Technician 10/19/21 11/16/21 documented as of this encounter
--- OUTSIDE RECORDS SUMMARY | 2024-10-18 15:05 | XMS_ITS | Encounter Summary ---
Author Organization [facility] Healthcare Address [address] [place] [address] Care Team Providers Care Housesmith Name Role Phone Zoila Gleason MD Primary Care Provider Rupal Isabel MD Unavailable [phone] Rekha Osborne MD Unavailable [phone] Mayuri Lyn RN Unavailable [phone] Michelle Colin [facility] Unavailable [phone] Encounter Details Date Type Department Care Team (Late st Contact Info) Description 11/12/2020 Telephone [facility] [address] [place] [address] Aiyana Lovelace, ZOFIA Social History Tobacco [...] on file Legal Sex Male 1:53 AM FIRE OFFICIAL Gender Identity Male 10/02/2023 12:44 PM CDT Sexual Orientation Don't know 11/15/2020 1: 06 PM CDT documented as of this encounter Plan of Treatment Not on file documented as of this encounter Visit Diagnoses Not on filedocumented in this encounter Additional Health Concerns Infection Onset Date Last Indicated Resolved Time COVID: Recovered 11/29/2020 11/29/2020 03/29/2021 3:05 AM FIRE OFFICIAL COVID: Suspected 10/09/2021 10/09/2021 10/09/2021 9:37 AM CDT COVID: Suspected 03/06/2022 03/06/2022 03/06/2022 9:30 AM FIRE OFFICIAL RSV, droplet 03/06/2022 03/06/2022 03/13/2022 3:05 AM FIRE OFFICIAL COVID: Suspected 06/26/2022 06/26/2022 06/26/2022 5:59 PM CDT Coronavirus, droplet 06/26/2022 06/26/2022 023 3:06 AM CDT documented as of this encounter Care Teams Housesmith Relationship Specialty Start Date End Date Zoila Gleason MD [address] [place] [address] PCP - General 09/29/16 Rupal Isabel MD 10 [facility] [address] [place] [address] Referring Physician Allergy and Immunology 01/11/19 Rekha Osborne MD [address] [address] [place] [address] Medical Oncologist/Digital Product Specialist Hematology 05/11/20 Mayuri Lyn, RN 4590 [facility] [address] [place] [address] SHOP Outpatient Import Coordinator 12/04/20 01/04/21 Michelle Colin LCSW 4590 [facility] ([facility] Mailstop [phone] [place] [address] SHOP Outpatient Import Coordinator 10/19/21 11/16/21 documented as of this encounter
--- OUTSIDE RECORDS SUMMARY | 2024-10-18 15:05 | XMS_ITS | Encounter Summary ---
Author Organization [facility] Healthcare Address [address] [place] [address] Care Team Providers Care Adult Care Manager Name Role Phone Zoila Gleason MD Primary Care Provider Rupal Isabel MD Unavailable Rekha Osborne MD Unavailable Mayuri Lyn RN Unavailable Michelle ColinW Unavailable Encounter Details Date Type Department Care Team (Late st Contact Info) Description 03/31/2020 Telephone [facility] [place] [address] Wendy Storm, RDMS Social History [...] on file Legal Sex Male 1:53 AM BUSINESS DATABASE ANALYST Gender Identity Male 10/02/2023 12:44 PM CDT Sexual Orientation Don't know 11/15/2020 1: 06 PM CDT documented as of this encounter Plan of Treatment Not on file documented as of this encounter Visit Diagnoses Not on filedocumented in this encounter Additional Health Concerns Infection Onset Date Last Indicated Resolved Time COVID: Suspected 04/21/2020 04/21/2020 04/21/2020 11:24 AM BUSINESS DATABASE ANALYST Respiratory Infection (MICKEY), contact + droplet Comment:Automatically added due to negative COVID-19 result. 04/21/2020 04/21/2020 05/05/2020 3:0 6 AM BUSINESS DATABASE ANALYST COVID: Suspected 04/21/2020 04/21/2020 04/21/2020 6:48 PM BUSINESS DATABASE ANALYST COVID: Suspected 09/25/2020 09/25/2020 09/25/2020 10:11 AM CDT Rhino/Enterovirus 09/25/2020 09/25/2020 10/02/2020 3:05 AM CDT COVID: Recovered 11/29/2020 11/29/2020 03/29/2021 3:05 AM BUSINESS DATABASE ANALYST COVID: Suspected 10/09/2021 10/09/2021 10/09/2021 9:37 AM CDT COVID: Suspected 03/06/2022 03/06/2022 03/06/2022 9:30 AM BUSINESS DATABASE ANALYST RSV, droplet 03/06/2022 03/06/2022 03/13/2022 3:05 AM BUSINESS DATABASE ANALYST COVID: Suspected 06/26/2022 06/26/2022 06/26/2022 5:59 PM CDT Coronavirus, droplet 06/26/2022 06/26/2022 023 3:06 AM CDT documented as of this encounter Care Teams Adult Care Manager Relationship Specialty Start Date End Date Zoila Gleason MD [address] [place] [address] PCP - General 09/29/16 Rupal Isabel MD 10 [facility] [address] [place] [address] Referring Physician Allergy and Immunology 01/11/19 Rekha Osborne MD [address] [place] [address] Medical Oncologist/Analog Design Engineer Hematology 05/11/20 Mayuri Lyn, RN [address] [facility] [address] [place] [address] SHOP Outpatient Lode Miner Blasting 12/04/20 01/04/21 Michelle Colin LCSW 4590 [facility] ([facility]) Mailstop [phone] [place] [address] SHOP Outpatient Lode Miner Blasting 10/19/21 11/16/21 documented as of this encounter
--- OUTSIDE RECORDS SUMMARY | 2024-10-18 15:05 | XMS_ITS | Encounter Summary ---
Author Organization [facility] Address [address] [place] [address] Phone Care Team Providers Care Bed Rubber Name Role Phone Zoila Gleason MD Primary Care Provider Rupal Isabel MD Unavailable [phone] Rekha Osborne MD Unavailable [phone] Mayuri Lyn RN Unavailable Michelle Colin FARM MACHINERY SET UP MECHANIC Unavailable [phone] Encounter Details Date Type Department Care Team [...] on file Legal Sex Male 1:53 AM FLAKEBOARD LINE TENDER Gender Identity Male 10/02/2023 12:44 PM [...] COVID: Suspected 04/21/2020 04/21/2020 04/21/2020 11:24 AM FLAKEBOARD LINE TENDER Respiratory Infection (MICKEY), contact + droplet Comment:Automatically added due to negative COVID-19 result. 04/21/2020 04/21/2020 05/05/2020 3:0 6 AM FLAKEBOARD LINE TENDER COVID: Suspected 04/21/2020 04/21/2020 04/21/2020 6:48 PM FLAKEBOARD LINE TENDER COVID: Suspected 09/25/2020 09/25/2020 09/25/2020 10:11 AM CDT Rhino/Enterovirus 09/25/2020 09/25/2020 10/02/2020 3:05 AM CDT COVID: Recovered 11/29/2020 11/29/2020 03/29/2021 3:05 AM FLAKEBOARD LINE TENDER COVID: Suspected 10/09/2021 10/09/2021 10/09/2021 9:37 AM CDT COVID: Suspected 03/06/2022 03/06/2022 03/06/2022 9:30 AM FLAKEBOARD LINE TENDER RSV, droplet 03/06/2022 03/06/2022 03/13/2022 3:05 AM FLAKEBOARD LINE TENDER COVID: Suspected 06/26/2022 06/26/2022 06/26/2022 5:59 PM CDT Coronavirus, droplet 06/26/2022 06/26/2022 023 3:06 AM CDT documented as of this encounter Care Teams Bed Rubber Relationship Specialty Start Date End Date Zoila Gleason MD [address] [place] [address] PCP - General 09/29/16 Rupal Isabel MD [address] [place] [address] [address] Referring Physician Allergy and Immunology 01/11/19 Rekha Osborne MD [address] [place] [address] Medical Oncologist/Coiled Coil Inspector Hematology 05/11/20 Mayuri Lyn, RN [address] [facility] [address] [place] [address] SHOP Outpatient Rover Tender 12/04/20 01/04/21 Michelle Colin [facility] 40[address] [facility] ([facility]) Mailstop [phone] [place] [address] SHOP Outpatient Rover Tender 10/19/21 11/16/21 documented as of this encounter
--- OUTSIDE RECORDS SUMMARY | 2024-10-18 15:05 | XMS_ITS | Encounter Summary ---
Author Organization [facility] Address [address] [place] [address] Phone Care Team Providers Care Medical Field Representative Name Role Phone Zoila Gleason MD Primary Care Provider Rupal Isabel MD Unavailable [phone] Rekha Osborne MD Unavailable [phone] Mayuri Lyn RN Unavailable Michelle Colin REFERENCE DATA EXPERT Unavailable Encounter Details Date Type Department Care [...] on file Legal Sex Male 1:53 AM STATIONARY ENGINEER REFRIGERATION Gender Identity Male 10/02/2023 12:44 PM CDT [...] COVID: Suspected 04/21/2020 04/21/2020 04/21/2020 11:24 AM STATIONARY ENGINEER REFRIGERATION Respiratory Infection (MICKEY), contact + droplet Comment:Automatically added due to negative COVID-19 result. 04/21/2020 04/21/2020 05/05/2020 3:0 6 AM STATIONARY ENGINEER REFRIGERATION COVID: Suspected 04/21/2020 04/21/2020 04/21/2020 6:48 PM STATIONARY ENGINEER REFRIGERATION COVID: Suspected 09/25/2020 09/25/2020 09/25/2020 10:11 AM CDT Rhino/Enterovirus 09/25/2020 09/25/2020 10/02/2020 3:05 AM CDT COVID: Recovered 11/29/2020 11/29/2020 03/29/2021 3:05 AM STATIONARY ENGINEER REFRIGERATION COVID: Suspected 10/09/2021 10/09/2021 10/09/2021 9:37 AM CDT COVID: Suspected 03/06/2022 03/06/2022 03/06/2022 9:30 AM STATIONARY ENGINEER REFRIGERATION RSV, droplet 03/06/2022 03/06/2022 03/13/2022 3:05 AM STATIONARY ENGINEER REFRIGERATION COVID: Suspected 06/26/2022 06/26/2022 06/26/2022 5:59 PM CDT Coronavirus, droplet 06/26/2022 06/26/2022 023 3:06 AM CDT documented as of this encounter Care Teams Medical Field Representative Relationship Specialty Start Date End Date Zoila Gleason MD [address] [place] [address] PCP - General 09/29/16 Rupal Isabel MD [address] [place] [address] [address] Referring Physician Allergy and Immunology 01/11/19 Rekha Osborne MD [address] [place] [address] Medical Oncologist/Poultry Vaccinator Hematology 05/11/20 Mayuri Lyn, RN 4590 [facility] [address] [place] [address] SHOP Outpatient Assistant Chief Engineer 12/04/20 01/04/21 Michelle Colin [facility] 1590 [facility] ([facility] [place] [place] Mailstop [phone] [place] [address] SHOP Outpatient Assistant Chief Engineer 10/19/21 11/16/21 documented as of this encounter
--- OUTSIDE RECORDS SUMMARY | 2024-10-18 15:05 | XMS_ITS | Encounter Summary ---
Author Organization [facility] Address [address] [place] [address] Phone Care Team Providers Care Coal Drier Operator Name Role Phone Zoila Gleason MD Primary Care Provider [phone] Rupal Isabel MD Unavailable [phone] Rekha Osborne MD Unavailable [phone] Encounter Details Date Type Department Care Team [...] often do you attend chur ch or shinto services? Never 10/11/2021 Do you belong to any clubs o r organizations such as caodaism groups, unions, fraternal or athletic groups, or [...] a group home (including now)? No 10/11/2021 Sex and Gender Information Value Date Recorded Sex Assigned at Not on file Legal Sex Male 1:53 AM COLLECTION OFFICER Gender Identity Male 10/02/2023 12:44 PM [...] documented as of this encounter Care Teams Coal Drier Operator Relationship Specialty Start Date End Date Zoila Gleason MD [address] [place] [address] PCP - General 09/29/16 Rupal Isabel MD 10 [facility] [address] [place] [address] Referring Physician Allergy and Immunology 01/11/19 Rekha Osborne MD [address] [place] [address] Medical Oncologist/Shipping Point Inspector Hematology 05/11/20 documented as of this encounter
--- OUTSIDE RECORDS SUMMARY | 2024-10-18 15:05 | XMS_ITS | Clinical Summary ---
Author Organization [employer] [facility] Address [address] [place] [address] Care Team Providers Care Almond Sorter Name Role Phone Unavailable Primary Care Provider [...] WEEKS. 24 Packet 1 03/02/2023 2:48 PM AML ANALYST 3 Active clindamycin phosphate (CLEOCIN T) 1 [...] procedure 4 Capsule 1 03/02/2023 2:45 PM AML ANALYST 3 Active docusate sodium (COLACE) 100 mg capsule Take one capsule (100 mg) orally twice a day 60 Capsule 3 03/14/2023 12:03 PM AML ANALYST 3 Active levothyroxine 112 mcg tablet Take one tablet (112 mcg) orally every morning 90 Tablet 2 03/14/2023 12:03 PM AML ANALYST 3 Active pantoprazole (PROTONIX) 40 mg Tablet, Delayed Release (E.C.) Take one tablet (40 mg) orally daily 60 Tablet 03/14/2023 12:03 PM AML ANALYST 3 Active sertraline (ZOLOFT) 100 mg tablet Take one tablet (50 mg) orally daily 90 Tablet 3 3 Active hydrocortisone sod succ, PF, (Solu-CORTEF Act-O-Vial, PF,) 100 mg/2 mL Recon Soln Inject 2 mL (100 mg) by intramuscular injection 1 time daily as needed for adrenal crisis. 10 Each 2 04/17/2023 6:40 PM AML ANALYST 4 Active apixaban (Eliquis) 5 mg tablet Take 1 Tablet (5 mg) by mouth 2 times daily. 30 Tablet 1 04/08/2023 4:00 PM AML ANALYST 4 Active nirmatrelvir-r itonavir (Paxlovid) 300(150mg x 2)-100 mg oral pack TAKE 2 TABLETS OF NIRMATRELVIR AND 1 TABLET OF RITONAVIR BY MOUTH TWICE DAILY FOR 5 DAYS 30 Each 4 Active predniSONE (DELTASONE) 1 mg tablet TAKE 1-4 TABLETS BY MOUTH DAILY DIRECTED BY PHYSICIAN. TAKE WITH 5 MG DAILY. 120 Tablet 2 04/25/2023 2:35 PM AML ANALYST 4 Active nirmatrelvir-r itonavir (Paxlovid) 300(150mg x [...] failure. 90 Tablet 2 04/25/2023 2:35 PM AML ANALYST 4 Active Immunizations Immunization Administration Dates Next [...] Health Maintenance Due Date Last Done Comments DTAP/TDAP/TD VACCINES (1 - Tdap) 2016 HEPATITIS B VACCINES (1 of 3 - 19+ 3-dose series) 2016 INFLUENZA VACCINE (#1) 2024 3, 02/03/2022 HPV VACCINES Aged Out No longer eligi ble based on patient's age to complete this topic Insurance RX [employer] Commercial RX [employer] (INTERNAL) [facility] [employer] RX [employer] Medicaid
--- OUTSIDE RECORDS SUMMARY | 2024-10-18 15:05 | XMS_ITS | Encounter Summary ---
Author Organization [facility] Address [address] [place] [address] Phone Care Team Providers Care Car Usher Name Role Phone Zoila Gleason MD Primary Care Provider Rupal Isabel MD Unavailable [phone] Rekha Osborne MD Unavailable [phone] Mayuri Lyn RN Unavailable [phone] Michelle Colin DIVERSIFIED CROPS FARMWORKER Unavailable Encounter Details Date Type Department Care [...] on file Legal Sex Male 1:53 AM PAROLE SUPERVISOR Gender Identity Male 10/02/2023 12:44 PM [...] COVID: Recovered 11/29/2020 11/29/2020 03/29/2021 3:05 AM PAROLE SUPERVISOR COVID: Suspected 10/09/2021 10/09/2021 10/09/2021 9:37 AM CDT COVID: Suspected 03/06/2022 03/06/2022 03/06/2022 9:30 AM PAROLE SUPERVISOR RSV, droplet 03/06/2022 03/06/2022 03/13/2022 3:05 AM PAROLE SUPERVISOR COVID: Suspected 06/26/2022 06/26/2022 06/26/2022 5:59 PM CDT Coronavirus, droplet 06/26/2022 06/26/2022 023 3:06 AM CDT documented as of this encounter Care Teams Car Usher Relationship Specialty Start Date End Date Zoila Gleason MD [address] [place], [place] [id number] PCP - General 09/29/16 Rupal Isabel MD 10 [facility] [address] [place], [place] [id number] Referring Physician Allergy and Immunology 01/11/19 Rekha Osborne MD [address] [place], [place] [id number] Medical Oncologist/Pumping Supervisor Hematology 05/11/20 Mayuri Lyn, RN [address] [facility] [address] [place] [address] SHOP Outpatient Building Surveyor 12/04/20 01/04/21 Michelle Colin, ROSALIE 4590 [facility] ([facility] Mailstop [phone] [place] [address] SHOP Outpatient Building Surveyor 10/19/21 11/16/21 documented as of this encounter
--- OUTSIDE RECORDS SUMMARY | 2024-10-18 15:05 | XMS_ITS | Referral Summary ---
Author Organization [facility] Address [address] [place] [address] Care Team Providers Care Radiology Physician Assistant Name Role Phone Zoila Gleason MD Primary Care Provider [phone] Rupal Isabel MD Unavailable Rekha Osborne MD Unavailable Encounters Date Type Department Care Team Description 10/03/2024 Telephone [facility] Endocrinology Metabolism and Lipid [address] [facility] Medical Office Building [address], [address] [place] [address] Ciarra Cox RN 08/12/2024 1:00 PM CDT Telemedicine [facility] Allergy and Immunology [address] [facility] [address] [place] [address] Rpual Isabel MD CVID (common variable immunodeficiency) (HCC) (Primary Dx); Arpita's syndrome (HCC); Flexural atopic dermatitis 08/02/2024 Telephone [facility] Endocrinology Metabolism and Lipid [address] [facility] 5th [place] [address] [place] [address] Rose Marie Maurer RMA Prior [...] Never used. 07/07/19 21 Active Darius Rene [facility] spacer USE WITH INHALER [...] 1 tablet (112 mcg total) by mouth hospitality manager before breakfast 03/10/20 23 Active Solu-CORTEF Act-O-Vial, [...] food 90 tablet 3 05/24/19 25 Active Breztri Aerosphere 160-9-4.8 mcg/actuation inhaler Inhale 2 puffs 2 (two) times a day 08/13/19 25 Active testosterone 20.25 mg/1.25 gram (1.62 %) gel in metered-dose pumpIndications:M natali Hypogonadism Place 40.5 mg on the skin daily 225 g 1 10/09/19 25 2024 Active testosterone 20.25 mg/1.25 gram (1.62 %) gel in metered-dose pumpIndications:M natali Hypogonad[address] Place 40.5 mg on the skin daily 225 g 1 08/01/19 25 2024 Angeli cleopatra(Reo rder) Active Problems Problem Noted Date Diagnosed [...] stooling. -As of 12/18/23 at 1300, per [facility] [phone] - E. Coli. -Repeat blood cultures NGTD -Received cefepime; changed to cefuroxime to complete a 7 day course. Source is suspected to be UTI -TTE neg for vegetations Leukocytosis 12/17/2023 Assessment & Plan (12/17/2023 8:50 PM CDT): CBC at [facility] 12/15 WBC 20.5 (81% neutrophils). Ddx includes [...] (12/01/2020): Added automatically from request for surgery [id number] Anemia 11/28/2020 Assessment & Plan (12/03/2020 11:37 AM CDT): Hgb 4.8 PROTECTIVE CLOTHING ISSUER and s/p 4U pRBCs total. Hgb now [...] cytopenia, his initial presentation for thrombocytopenia to [facility] was in 2012 (17 yo) with [...] responded to steroid and rituximab last time ([id number]). During his last admission for UTI, he [...] bid - received stress dose steroids at [facility] - continue pred 5 BID - per [...] antibody (red top 2 ml) 2107 to [place] - consider ACTH stim test this admission [...] pressure injuries in the b/l trochanteric areas. BEATRICES saw the patient on 11/07 and recommended [...] patient on 11/07. CVID (common variable immunodeficiency) ([facility] ) 04/16/2018 Assessment & Plan (12/19/2023 1:52 [...] AM CDT): Stable. Followed by endocrinology at [facility]. Currently on 150 mcg levothyroxine daily. [...] Avoid concomitant administration of Levothyroxine with patient's PROTECTIVE CLOTHING ISSUER iron. Separate dosing by at least 4 [...] often do you attend chur ch or moravian services? Never 10/11/2021 Do you belong to [...] on file Legal Sex Male 1:53 AM DOCUMENT MANAGEMENT TECHNICIAN Gender Identity Male 10/02/2023 12:44 PM CDT Sexual Orientation Don't know 11/15/2020 1: 06 PM CDT Last Filed Vital Signs Vital Sign Reading Time Taken Comments Blood Pressure 117/79 05/13/2024 2:31 PM DOCUMENT MANAGEMENT TECHNICIAN Pulse 90 05/13/2024 2:31 PM DOCUMENT MANAGEMENT TECHNICIAN Temperature 36.9 C (98.5 F) 05/13/2024 2:31 PM DOCUMENT MANAGEMENT TECHNICIAN Respiratory Rate 18 03/12/2024 2:48 PM DOCUMENT MANAGEMENT TECHNICIAN Oxygen Saturation 96% 03/12/2024 2:48 PM DOCUMENT MANAGEMENT TECHNICIAN Inhaled Oxygen Concentration - - Weight 60.8 kg (134 lb) 05/13/2024 2:31 PM DOCUMENT MANAGEMENT TECHNICIAN Height 160 cm (5' 3) 05/13/2024 2:31 PM DOCUMENT MANAGEMENT TECHNICIAN Body Mass Index 23.74 05/13/2024 2:31 PM DOCUMENT MANAGEMENT TECHNICIAN Plan of Treatment Not on file [...] on 19. Hep C Ab Nonreactive Nonreactive [facility] Comment:Antibodies to HCV no t detected. Does NOT exclude the possibility of recent exposure to HCV. HepBsAg Nonreactive Nonreactive [facility] Blood 11/28/2020 5:33 PM CDT 11/28/2020 5:53 PM CDT us Jazzmine Mccartney NP LAB MICROBIO LOGY - GENERAL ORDERABLES Edited Result - Final [facility] One [facility] Department [place] [address] from Last 3 Months or Most Recently Relevant to Health Maintenance Insurance CHOICE [place]F [place] [facility] H[facility]/PPO Address: [address] [address] [place] [address] HE[employer]LINK OPEN ACCESS [facility] [place] [facility] CHOICE [facility]US [facility] HMO/PPO Address: [address] [address] [place] [address] [email or web address] OPEN ACCESS [place] [employer] OPEN ACCESS [facility] CHOICE [facility]US [facility] HMO/PPO Address: [place] [address] Advance Directives For more information, please contact: [phone] Documents on File Type Date Recorded Patient Banquet Waiter/Waitress Expl anation Power of Care Professional 10/21/2021 12:58 PM ADVANCE DIRECTIVE 10/14/2019 12:35 [...] 5:09 PM 01/02/2021 6:56 PM Care Teams Radiology Physician Assistant Relationship Specialty Start Date End Date Zoila Gleason MD [address] [place] [address] PCP - General 09/29/16 Rupal Isabel MD 10 [facility] [address] [place] [address] Referring Physician Allergy and Immunology 01/11/19 Rekha Osborne MD [address] [place] [address] Medical Oncologist/Aquatics Instructor Hematology 05/11/20
--- OUTSIDE RECORDS SUMMARY | 2024-10-18 15:05 | XMS_ITS | Clinical Summary ---
Author Organization [facility] Address [address] [place] [address] Care Team Providers Care Lab Director Name Role Phone Unavailable Primary Care Provider Unavailabl e Source Comments [facility],non-owned Affiliates and Associated Physician Practices is amultiple site organization consisting of ambulatory clinics and hospital sitesin [place], [place], [place] and [place]. This disclosure is being madepursuant to the Care Everywhere program and may not contain all information available regarding this patient. Last updated 17.[facility] [employer] Social History Tobacco Use Types Packs/Day Years Used Date Smoking Tobacco: Never Assessed Sex and Gender Information Value Date Recorded Sex Assigned at Not on file Legal Sex Male 11:21 AM CDT Gender Identity Not on file Sexual Orientation Not on file Plan of Treatment Upcoming Encounters Date Type Department Care Team (Late st Contact Info) Description 11/20/2024 9:00 AM CDT Office Visit [facility] - Dermatology [address] [place] [address], [facility] [place] [id number] Ele Parada MD [address] [place] [address] 3 [place] [id number] Health Maintenance Due Date Last Done Comments HIV SCREENING 2012 HEPATITIS C SCREENING 09/26/2015 DTAP/TDAP/TD VACCINES (1 - Tdap) 2016 HEPATITIS B VACCINE (1 of 3 - 19+ 3-dose series) 2016 COVID-19 VACCINE (1 - 2023-2 5 season) 2023 DEPRESSION SCREENING 04/03/2024 HPV VACCINE (1 - 3-dose SCDM series) 2024 INFLUENZA VACCINE (#1) 2024 ZOSTER VACCINE (1 of 2) 10/01/2047 HIB VACCINE Aged Out No longer eligi ble based on patient's age to complete this topic MENINGOCOCCAL (Group B) VACC INE SHARED DECISION-MAKING Aged Out No longer eligibl e based on patient's age to complete this topic MENINGOCOCCAL GROUPS A/C/Y/W VACCINE Aged Out No longer eligible b ased on patient's age to complete this topic PNEUMOCOCCAL VACCINE Aged Out No long er eligible based on patient's age to complete this topic Insurance [facility] Address: [address] [place] [address] MEDICAID [place]
--- OUTSIDE RECORDS SUMMARY | 2024-10-18 15:05 | XMS_ITS | Clinical Summary ---
Author Organization [facility] Address [address] [place] [address] Care Team Providers Care Field Hauler Name Role Phone Zoila Gleason MD Primary Care Provider [phone] Rupal Isabel MD Unavailable [phone] Rekha Osborne MD Unavailable [phone] Allergies Active Allergy Reactions Criticality Noted Date [...] Never used. 07/07/19 21 Active OptiChamber Anju [facility] spacer USE WITH INHALER DIRECTED [...] 1 tablet (112 mcg total) by mouth fur storage clerk before breakfast 03/10/20 23 Active Solu-CORTEF [...] 2 (two) times a day 08/13/19 Active testosterone 20.25 mg/1.25 gram (1.62 %) gel in metered-dose pumpIndications:M natali Hypogonad[address] Place 40.5 mg on the skin daily 225 g 1 10/09/19 25 2024 Active testosterone 20.25 mg/1.25 gram (1.62 %) gel in metered-dose pumpIndications:M natali [address]ogon[address] Place 40.5 mg on the skin daily 225 g 1 08/01/19 25 2024 Disconti nued(Reo rder) Active Problems [...] stooling. -As of 12/18/23 at 1300, per [facility] [phone] - E. Coli. -Repeat blood cultures NGTD -Received cefepime; changed to cefuroxime to complete a 7 day course. Source is suspected to be UTI -TTE neg for vegetations Leukocytosis 12/17/2023 Assessment & Plan (12/17/2023 8:50 PM CDT): CBC at [facility] 12/15 WBC 20.5 (81% neutrophils). Ddx includes [...] (12/01/2020): Added automatically from request for surgery [id number] Anemia 11/28/2020 Assessment & Plan (12/03/2020 11:37 AM CDT): Hgb 4.8 SHIPSMITH and s/p 4U pRBCs total. Hgb now [...] Neutropenic fever 09/25/2020 Idiopathic thrombocytopenic purpura (ITP) ([facility]) 07/09/2020 Assessment & Plan (12/01/2020 2:02 [...] cytopenia, his initial presentation for thrombocytopenia to [facility] was in 2012 (17 yo) [...] responded to steroid and rituximab last time ([id number]). During his last admission for UTI, he [...] bid - received stress dose steroids at [facility] - continue pred 5 BID - per [...] an anti-21 hydroxylase antibody to rule out Lindsay's as well as a low dose ACTH stim test at some point after 72 hours from last stress dose. He is very well appearing and does not have an indication for stress dosing at this time. - send anti-21 hydroxylase antibody (red top 2 ml) 2107 to [place] - consider ACTH stim test this admission [...] obtain anti-21 hydroxylase Ab to rule out Lindsay's disease. Assessment & Plan (12/29/2019 8:18 AM [...] patient on 11/07. CVID (common variable immunodeficiency) ([facility] ) 04/16/2018 Assessment & Plan (12/19/2023 1:52 [...] AM CDT): Stable. Followed by endocrinology at [facility]. Currently on 150 mcg levothyroxine [...] Avoid concomitant administration of Levothyroxine with patient's SHIPSMITH iron. Separate dosing by at least 4 hours. Pediatric Endocrinology will continue to follow. 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 Overview (05/14/2020): Autoimmune anemia, neutropenia, thrombocytopenia [...] Type Department Care Team Description 10/03/2024 Telephone [facility] Endocrinology Metabolism and Lipid [address] [facility] Medical Office [address], [address] [place] [address] Ciarra Cox RN 08/12/2024 1:00 PM CDT Telemedicine [facility] Allergy and Immunology [address] [place] [address] [address] [place] [address] Rupal Isabel MD CVID (common variable immunodeficiency) (HCC) (Primary Dx); Arpita's syndrome (HCC); Flexural atopic dermatitis 08/02/2024 Telephone [facility] Endocrinology Metabolism and Lipid [address] [facility] 5th [place] [address] [place] [address] Rose Marie Maurer, PEPE Prior Auth (PA TESTOSTERONE PLEASE) from Last 3 Months Immunizations Immunization Administration [...] COVID-19 10/2019 Clotting disorder Heart disease s/p NC secondary to severe anemia GI (gastrointestinal bleed) Acute respiratory failure wi th hypoxia (HCC) 08/20/2022 Family History Medical History Relation Name Comments Cancer Father Aidan Ch Aylin Hyperlipidemia Father Aidan Dima Aylin Hypertension Father Aidan Ch Aylin Thyroid [...] often do you attend chur ch or alevism services? Never 10/11/2021 Do you belong to any clubs o r organizations such as buddhism groups, unions, fraternal or athletic groups, or [...] on file Legal Sex Male 1:53 AM CURRICULUM DEVELOPMENT COORDINATOR Gender Identity Male 10/02/2023 12:44 PM CDT Sexual Orientation Don't know 11/15/2020 1: 06 PM CDT Obstetrics History Last Filed Vital Signs Vital Sign Reading Time Taken Comments Blood Pressure 117/79 05/13/2024 2:31 PM CURRICULUM DEVELOPMENT COORDINATOR Pulse 90 05/13/2024 2:31 PM CURRICULUM DEVELOPMENT COORDINATOR Temperature 36.9 C (98.5 F) 05/13/2024 2:31 PM CURRICULUM DEVELOPMENT COORDINATOR Respiratory Rate 18 03/12/2024 2:48 PM CURRICULUM DEVELOPMENT COORDINATOR Oxygen Saturation 96% 03/12/2024 2:48 PM CURRICULUM DEVELOPMENT COORDINATOR Inhaled Oxygen Concentration - - Weight 60.8 kg (134 lb) 05/13/2024 2:31 PM CURRICULUM DEVELOPMENT COORDINATOR Height 160 cm (5' 3) 05/13/2024 2:31 PM CURRICULUM DEVELOPMENT COORDINATOR Body Mass Index 23.74 05/13/2024 2:31 PM CURRICULUM DEVELOPMENT COORDINATOR Plan of Treatment Health Maintenance Due Date [...] 2023 02/17/2021, 01/27/2021, 06/08/2020 Influenza Vaccine (#1) 2024 3, 02/03/2022, 01/27/2021, Additional history exists Hepatitis B Screening Completed 01/12/1999 , 03/17/1998, 1997 Hepatitis C Screening Completed 11/28/2020 Procedures Procedure Name Priority Date/Time Associated Diagnosis Comments HEPATITIS PANEL, ACUTE Routine 11/28/2020 5:33 PM CDT from Last 3 Months or Most Recently Relevant to Health Maintenance Results * Hepatitis panel, acute (11/28/2020 5:33 PM CDT) Hep A IgM Nonreactive Nonreactive [facility] Comment: Interpretive Data: If Hep A IgM Ab is reported as Equivocal, a new sample should be drawn in two weeks for testing. Current interpretive data was last revised on 19. Hep B core IgM Nonreactive Nonreactive [facility] Comment: Interpretive Data If HepB [...] Result - Final [facility] One [facility] Department [place] [address] from Last 3 Months or Most Recently Relevant to Health Maintenance Insurance [place] [facility] CHOICE [facility]US [facility] HMO/PPO Address: [address] [address] [place] [address] [employer] OPEN ACCESS [place] [facility] CHOICE [facility]US [facility] HMO/PPO Address: [address] [address] [place] [address] [employer] OPEN ACCESS IDPA [facility] [place] [employer] OPEN ACCESS [facility] CHOICE PLUS [facility] HMO/PPO Address: [address] [address] [place] [address] Advance Directives For more information, please contact: [phone] Documents on File Type Date Recorded Patient Paint Booth Operator Expl anation Power of Obstetrics Gynecology Md 10/21/2021 12:58 PM ADVANCE DIRECTIVE 10/14/2019 12:35 [...] 5:09 PM 01/02/2021 6:56 PM Care Teams Field Hauler Relationship Specialty Start Date End Date Zoila Gleason MD [address] [place] [address] PCP - General 09/29/16 Rupal Isabel MD [address] [place] [address] [address] [place] [address] Referring Physician Allergy and Immunology 01/11/19 Rekha Osborne MD [address] [place], [place] [id number] Medical Oncologist/Instrumentation And Control Technician Hematology 05/11/20
--- OUTSIDE RECORDS SUMMARY | 2024-10-18 15:05 | XMS_ITS | Encounter Summary ---
Author Organization [facility] Address [address] [place] [address] Phone Care Team Providers Care Glove Operator Name Role Phone Zoila Gleason MD Primary Care Provider Rupal Isabel MD Unavailable [phone] Rekha Osborne MD Unavailable [phone] Mayuri Lyn RN Unavailable [phone] Michelle Colin AUTOMOTIVE DISMANTLER Unavailable Encounter Details Date Type Department Care [...] on file Legal Sex Male 1:53 AM SPOOLER RUBBER STRAND Gender Identity Male 10/02/2023 12:44 PM CDT [...] COVID: Suspected 04/21/2020 04/21/2020 04/21/2020 11:24 AM SPOOLER RUBBER STRAND Respiratory Infection (MICKEY), contact + droplet Comment:Automatically added due to negative COVID-19 result. 04/21/2020 04/21/2020 05/05/2020 3:0 6 AM SPOOLER RUBBER STRAND COVID: Suspected 04/21/2020 04/21/2020 04/21/2020 6:48 PM SPOOLER RUBBER STRAND COVID: Suspected 09/25/2020 09/25/2020 09/25/2020 10:11 AM CDT Rhino/Enterovirus 09/25/2020 09/25/2020 10/02/2020 3:05 AM CDT COVID: Recovered 11/29/2020 11/29/2020 03/29/2021 3:05 AM SPOOLER RUBBER STRAND COVID: Suspected 10/09/2021 10/09/2021 10/09/2021 9:37 AM CDT COVID: Suspected 03/06/2022 03/06/2022 03/06/2022 9:30 AM SPOOLER RUBBER STRAND RSV, droplet 03/06/2022 03/06/2022 03/13/2022 3:05 AM SPOOLER RUBBER STRAND COVID: Suspected 06/26/2022 06/26/2022 06/26/2022 5:59 PM CDT Coronavirus, droplet 06/26/2022 06/26/202207/03/ 023 3:06 AM CDT documented as of this encounter Care Teams Glove Operator Relationship Specialty Start Date End Date Zoila Gleason MD [address] [place] [address] PCP - General 09/29/16 Rupal Isabel MD 10 [facility] [address] [place] [address] Referring Physician Allergy and Immunology 01/11/19 Rekha Osborne MD [address] [place] [address] Medical Oncologist/Tricot Knitting Machine Operator Hematology 05/11/20 Mayuri Lyn, RN [address] [facility] [address] [place] [address] SHOP Outpatient Grader Green Meat 12/04/20 01/04/21 Michelle Colin AUTOMOTIVE DISMANTLER 45[address] [facility] ([facility] Mailstop [phone] [place] [address] SHOP Outpatient Grader Green Meat 10/19/21 11/16/21 documented as of this encounter
--- OUTSIDE RECORDS SUMMARY | 2024-10-18 15:05 | XMS_ITS | Encounter Summary ---
Author Organization [facility] Address [address] [place] [address] Phone Care Team Providers Care Supervisor Records Change Name Role Phone Zoila Gleason MD Primary Care Provider Rupal Isabel MD Unavailable [phone] Rekha Osborne MD Unavailable [phone] Michelle Colin [facility] Unavailable [phone] Encounter Details Date Type Department Care Team [...] than three times a week 12/10/2020 Attends [employer] Not on file 12/10 Active Member [...] on file Legal Sex Male 1:53 AM BET TAKER Gender Identity Male 10/02/2023 12:44 PM CDT [...] COVID: Suspected 03/06/2022 03/06/2022 03/06/2022 9:30 AM BET TAKER RSV, droplet 03/06/2022 03/06/2022 03/13/2022 3:05 AM BET TAKER COVID: Suspected 06/26/2022 06/26/2022 06/26/2022 5:59 PM CDT Coronavirus, droplet 06/26/2022 06/26/2022 023 3:06 AM CDT documented as of this encounter Care Teams Supervisor Records Change Relationship Specialty Start Date End Date Zoila Gleason MD [address] [address] PCP - General 09/29/16 Rupal Isabel MD 10 [facility] [address] [place] [address] Referring Physician Allergy and Immunology 01/11/19 Rekha Osborne MD [address] [place], [place] [id number] Medical Oncologist/Veterinary Laboratory Technician Hematology 05/11/20 Michelle Colin LCSW 45[address] [facility] ([facility]) Mailstop [phone] [place] [address] SHOP Outpatient Glass Pulverizer Equipment Operator 10/19/21 11/16/21 documented as of this encounter
--- OUTSIDE RECORDS SUMMARY | 2024-10-18 15:05 | XMS_ITS | Encounter Summary ---
Author Organization [facility] School of [facility] Address [address] [place] [address] Phone Care Team Providers Care Joist Setter Name Role Phone Zoila Gleason MD Primary Care Provider Rupal Isabel MD Unavailable [phone] Rekha Osborne MD Unavailable [phone] Mayuri Lyn RN Unavailable [phone] Michelle Colin GROUNDS MAINTENANCE WORKER Unavailable Encounter Details Date Type Department [...] on file Legal Sex Male 1:53 AM TERMINAL GAUGER SUPERVISOR Gender Identity Male 10/02/2023 12:44 PM [...] COVID: Suspected 04/21/2020 04/21/2020 04/21/2020 11:24 AM TERMINAL GAUGER SUPERVISOR Respiratory Infection (MICKEY), contact + droplet Comment:Automatically added due to negative COVID-19 result. 04/21/2020 04/21/2020 05/05/2020 3:0 6 AM TERMINAL GAUGER SUPERVISOR COVID: Suspected 04/21/2020 04/21/2020 04/21/2020 6:48 PM TERMINAL GAUGER SUPERVISOR COVID: Suspected 09/25/2020 09/25/2020 09/25/2020 10:11 AM CDT Rhino/Enterovirus 09/25/2020 09/25/2020 10/02/2020 3:05 AM CDT COVID: Recovered 11/29/2020 11/29/2020 03/29/2021 3:05 AM TERMINAL GAUGER SUPERVISOR COVID: Suspected 10/09/2021 10/09/2021 10/09/2021 9:37 AM CDT COVID: Suspected 03/06/2022 03/06/2022 03/06/2022 9:30 AM TERMINAL GAUGER SUPERVISOR RSV, droplet 03/06/2022 03/06/2022 03/13/2022 3:05 AM TERMINAL GAUGER SUPERVISOR COVID: Suspected 06/26/2022 06/26/2022 06/26/2022 5:59 PM CDT Coronavirus, droplet 06/26/2022 06/26/2022 023 3:06 AM CDT documented as of this encounter Care Teams Joist Setter Relationship Specialty Start Date End Date Zoila Gleason MD [address] [address] PCP - General 09/29/16 Rupal Isabel MD [address] [place] [address] [address] Referring Physician Allergy and Immunology 01/11/19 Rekha Osborne MD [address] [place] [address] Medical Oncologist/Licensed Guide Hematology 05/11/20 Mayuri Lyn, RN 4590 [facility] [address] [place] [address] SHOP Outpatient Healthcare Risk Control Consultant 12/04/20 01/04/21 Michelle Colin [facility] 3490 [facility] ([facility]) Mailstop [phone] [place] [address] SHOP Outpatient Healthcare Risk Control Consultant 10/19/21 11/16/21 documented as of this encounter
--- OUTSIDE RECORDS SUMMARY | 2024-10-18 15:06 | XMS_ITS | Encounter Summary ---
Author Organization [facility] School of [facility] Address [address] [place] [address] Phone Care Team Providers Care Material Distributor Name Role Phone Zoila Gleason MD Primary Care Provider Rupal Isabel MD Unavailable [phone] Rekha Osborne MD Unavailable [phone] Mayuri Lyn RN Unavailable Michelle Colin FORMATION FRACTURING OPERATOR Unavailable Encounter Details Date Type Department [...] on file Legal Sex Male 1:53 AM IMAGING SCIENCE PROFESSOR Gender Identity Male 10/02/2023 12:44 PM [...] COVID: Recovered 11/29/2020 11/29/2020 03/29/2021 3:05 AM IMAGING SCIENCE PROFESSOR COVID: Suspected 10/09/2021 10/09/2021 10/09/2021 9:37 AM CDT COVID: Suspected 03/06/2022 03/06/2022 03/06/2022 9:30 AM IMAGING SCIENCE PROFESSOR RSV, droplet 03/06/2022 03/06/2022 03/13/2022 3:05 AM IMAGING SCIENCE PROFESSOR COVID: Suspected 06/26/2022 06/26/2022 06/26/2022 5:59 PM CDT Coronavirus, droplet 06/26/2022 06/26/2022 023 3:06 AM CDT documented as of this encounter Care Teams Material Distributor Relationship Specialty Start Date End Date Zoila Gleason MD [address] [place] [address] PCP - General 09/29/16 Rupal Isabel MD [address] [place] [address] [address] [place] [address] Referring Physician Allergy and Immunology 01/11/19 Rekha Osborne MD [address] [place] [address] Medical Oncologist/Dictaphone Technician Hematology 05/11/20 Mayuri Lyn, RN 4590 [facility] [address] [place] [address] SHOP Outpatient Armored Cable Machine Operator 12/04/20 01/04/21 Michelle Colin LCSW 4590 [facility] ([facility] Mailstop [phone] [place] [address] SHOP Outpatient Armored Cable Machine Operator 10/19/21 11/16/21 documented as of this encounter
--- OUTSIDE RECORDS SUMMARY | 2024-10-18 15:06 | XMS_ITS | Encounter Summary ---
Author Organization [facility] Address [address] [place] [address] Phone Care Team Providers Care Ophthalmology Assistant Name Role Phone Zoila Gleason MD Primary Care Provider Rupal Isabel MD Unavailable [phone] Rekha Osborne MD Unavailable [phone] Mayuri Lyn RN Unavailable Michelle Colin PROCESS CONTROL MANAGER Unavailable Encounter Details Date Type Department [...] file Legal Sex Male 1:53 AM MANAGER QUANTITATIVE Gender Identity Male 10/02/2023 12:44 PM CDT [...] Suspected 04/21/2020 04/21/2020 04/21/2020 11:24 AM MANAGER QUANTITATIVE Respiratory Infection (MICKEY), contact + droplet Comment:Automatically added due to negative COVID-19 result. 04/21/2020 04/21/2020 05/05/2020 3:0 6 AM MANAGER QUANTITATIVE COVID: Suspected 04/21/2020 04/21/2020 04/21/2020 6:48 PM MANAGER QUANTITATIVE COVID: Suspected 09/25/2020 09/25/2020 09/25/2020 10:11 AM CDT Rhino/Enterovirus 09/25/2020 09/25/2020 10/02/2020 3:05 AM CDT COVID: Recovered 11/29/2020 11/29/2020 03/29/2021 3:05 AM MANAGER QUANTITATIVE COVID: Suspected 10/09/2021 10/09/2021 10/09/2021 9:37 AM CDT COVID: Suspected 03/06/2022 03/06/2022 03/06/2022 9:30 AM MANAGER QUANTITATIVE RSV, droplet 03/06/2022 03/06/2022 03/13/2022 3:05 AM MANAGER QUANTITATIVE COVID: Suspected 06/26/2022 06/26/2022 06/26/2022 5:59 PM CDT Coronavirus, droplet 06/26/2022 06/26/2022 023 3:06 AM CDT documented as of this encounter Care Teams Ophthalmology Assistant Relationship Specialty Start Date End Date Zoila Gleason MD [address] [place] [address] PCP - General 09/29/16 Rupal Isabel MD 10 [facility] [address] [address] Referring Physician Allergy and Immunology 01/11/19 Rekha Osborne MD [address] [place] [address] Medical Oncologist/Draw End Hand Hematology 05/11/20 Mayuri Lyn, RN 4590 [facility] 5[address] [place] [address] SHOP Outpatient Pc Maintenance Technician 12/04/20 01/04/21 Michelle Colin LCSW 5502 [facility] ([facility]) Mailstop [phone] [place] [address] SHOP Outpatient Pc Maintenance Technician 10/19/21 11/16/21 documented as of this encounter
--- OUTSIDE RECORDS SUMMARY | 2024-10-18 15:06 | XMS_ITS | Encounter Summary ---
Author Organization [facility] of [facility] Address [address] [place] [address] Phone Care Team Providers Care Charge Manager Name Role Phone Zoila Gleason MD Primary Care Provider [phone] Rupal Isabel MD Unavailable [phone] Rekha Osborne MD Unavailable [phone] Mayuri Lyn RN Unavailable Michelle Colin GARNETT FIXER Unavailable Encounter Details Date Type Department Care [...] file Legal Sex Male 1:53 AM COMMERCIAL FOOD INSTRUCTOR Gender Identity Male 10/02/2023 12:44 PM [...] Recovered 11/29/2020 11/29/2020 03/29/2021 3:05 AM COMMERCIAL FOOD INSTRUCTOR COVID: Suspected 10/09/2021 10/09/2021 10/09/2021 9:37 AM CDT COVID: Suspected 03/06/2022 03/06/2022 03/06/2022 9:30 AM COMMERCIAL FOOD INSTRUCTOR RSV, droplet 03/06/2022 03/06/2022 03/13/2022 3:05 AM COMMERCIAL FOOD INSTRUCTOR COVID: Suspected 06/26/2022 06/26/2022 06/26/2022 5:59 PM CDT Coronavirus, droplet 06/26/2022 06/26/2022 023 3:06 AM CDT documented as of this encounter Care Teams Charge Manager Relationship Specialty Start Date End Date Zoila Gleason MD [address] [place] [address] PCP - General 09/29/16 Rupal Isabel MD [address] [place] [address] [address] [place] [address] Referring Physician Allergy and Immunology 01/11/19 Rekha Osborne MD [address] [place] [address] Medical Oncologist/Tonguer Hematology 05/11/20 Mayuri Lyn, RN 4590 [facility] [address] [place] [address] SHOP Outpatient Boiling House Oiler 12/04/20 01/04/21 Michelle Colin LCSW 4590 [facility] ([facility] Mailstop [phone] [place] [address] SHOP Outpatient Boiling House Oiler 10/19/21 11/16/21 documented as of this encounter
--- OUTSIDE RECORDS SUMMARY | 2024-10-18 15:06 | XMS_ITS | Encounter Summary ---
Author Organization [facility] of [facility] Address [address] [place] [address] Phone Care Team Providers Care Senior Net C Developer Name Role Phone Zoila Gleason MD Primary Care Provider Rupal Isabel MD Unavailable [phone] Rekha Osborne MD Unavailable [phone] Mayuri Lyn RN Unavailable Michelle Colin TEST KITCHEN HOME ECONOMIST Unavailable Encounter Details Date Type Department Care [...] on file Legal Sex Male 1:53 AM PNEUMATIC TOOL REPAIRER Gender Identity Male 10/02/2023 12:44 PM [...] COVID: Suspected 04/21/2020 04/21/2020 04/21/2020 11:24 AM PNEUMATIC TOOL REPAIRER Respiratory Infection (MICKEY), contact + droplet Comment:Automatically added due to negative COVID-19 result. 04/21/2020 04/21/2020 05/05/2020 3:0 6 AM PNEUMATIC TOOL REPAIRER COVID: Suspected 04/21/2020 04/21/2020 04/21/2020 6:48 PM PNEUMATIC TOOL REPAIRER COVID: Suspected 09/25/2020 09/25/2020 09/25/2020 10:11 AM CDT Rhino/Enterovirus 09/25/2020 09/25/2020 10/02/2020 3:05 AM CDT COVID: Recovered 11/29/2020 11/29/2020 03/29/2021 3:05 AM PNEUMATIC TOOL REPAIRER COVID: Suspected 10/09/2021 10/09/2021 10/09/2021 9:37 AM CDT COVID: Suspected 03/06/2022 03/06/2022 03/06/2022 9:30 AM PNEUMATIC TOOL REPAIRER RSV, droplet 03/06/2022 03/06/2022 03/13/2022 3:05 AM PNEUMATIC TOOL REPAIRER COVID: Suspected 06/26/2022 06/26/2022 06/26/2022 5:59 PM CDT Coronavirus, droplet 06/26/2022 06/26/2022 023 3:06 AM CDT documented as of this encounter Care Teams Senior Net C Developer Relationship Specialty Start Date End Date Zoila Gleason MD [address] [place] [address] PCP - General 09/29/16 Rupal Isabel MD 10 [facility] [address] [place] [address] Referring Physician Allergy and Immunology 01/11/19 Rekha Osborne MD [address] [place] [address] Medical Oncologist/Mounting Inspector Hematology 05/11/20 Mayuri Lyn, RN 4590 [facility] [address] [place] [address] SHOP Outpatient Cable Dispatcher 12/04/20 01/04/21 Michelle Colin LCSW 4590 [facility] ([facility] Mailstop [phone] [place] [address] SHOP Outpatient Cable Dispatcher 10/19/21 11/16/21 documented as of this encounter
--- OUTSIDE RECORDS SUMMARY | 2024-10-18 15:06 | XMS_ITS | Encounter Summary ---
Author Organization [facility] Address [address] [place] [address] Phone Care Team Providers Care Juice Scaleman Name Role Phone Zoila Gleason MD Primary Care Provider Rupal Isabel MD Unavailable [phone] Rekha Osborne MD Unavailable [phone] Mayuri Lyn RN Unavailable Michelle Colin MARINATOR Unavailable Encounter Details Date Type Department Care [...] on file Legal Sex Male 1:53 AM CIRCULAR SAW EDGE FUSER Gender Identity Male 10/02/2023 12:44 PM CDT [...] COVID: Recovered 11/29/2020 11/29/2020 03/29/2021 3:05 AM CIRCULAR SAW EDGE FUSER COVID: Suspected 10/09/2021 10/09/2021 10/09/2021 9:37 AM CDT COVID: Suspected 03/06/2022 03/06/2022 03/06/2022 9:30 AM CIRCULAR SAW EDGE FUSER RSV, droplet 03/06/2022 03/06/2022 03/13/2022 3:05 AM CIRCULAR SAW EDGE FUSER COVID: Suspected 06/26/2022 06/26/2022 06/26/2022 5:59 PM CDT Coronavirus, droplet 06/26/2022 06/26/2022 023 3:06 AM CDT documented as of this encounter Care Teams Juice Scaleman Relationship Specialty Start Date End Date Zoila Gleason MD [address] [place] [address] PCP - General 09/29/16 Rupal Isabel MD [address] [place] [address] [address] [place] [address] Referring Physician Allergy and Immunology 01/11/19 Rekha Osborne MD [address] [place] [address] Medical Oncologist/Hair Specialist Hematology 05/11/20 Mayuri Lyn, RN 4590 [facility] [address] [place] [address] SHOP Outpatient Labor Commissioner 12/04/20 01/04/21 Michelle Colin LCSW 4590 [facility] ([facility]) Mailstop [phone] [place] [address] SHOP Outpatient Labor Commissioner 10/19/21 11/16/21 documented as of this encounter
--- OUTSIDE RECORDS SUMMARY | 2024-10-18 15:06 | XMS_ITS | Encounter Summary ---
Author Organization [facility] Address [address] [place] [address] Phone Care Team Providers Care Cover Machine Operator Name Role Phone Zoila Gleason MD Primary Care Provider Rupal Isabel MD Unavailable [phone] Rekha Osborne MD Unavailable [phone] Mayuri Lyn RN Unavailable [phone] Michelle Colin SENIOR ACCOUNT CLERK Unavailable Encounter Details Date Type Department [...] on file Legal Sex Male 1:53 AM MEDICAL COORDINATOR PESTICIDE USE Gender Identity Male 10/02/2023 12:44 PM CDT [...] COVID: Recovered 11/29/2020 11/29/2020 03/29/2021 3:05 AM MEDICAL COORDINATOR PESTICIDE USE COVID: Suspected 10/09/2021 10/09/2021 10/09/2021 9:37 AM CDT COVID: Suspected 03/06/2022 03/06/2022 03/06/2022 9:30 AM MEDICAL COORDINATOR PESTICIDE USE RSV, droplet 03/06/2022 03/06/2022 03/13/2022 3:05 AM MEDICAL COORDINATOR PESTICIDE USE COVID: Suspected 06/26/2022 06/26/2022 06/26/2022 5:59 PM CDT Coronavirus, droplet 06/26/2022 06/26/2022 023 3:06 AM CDT documented as of this encounter Care Teams Cover Machine Operator Relationship Specialty Start Date End Date Zoila Gleason MD [address] [place] [address] PCP - General 09/29/16 Rupal Isabel MD [address] [place] [address] [address] [place] [address] Referring Physician Allergy and Immunology 01/11/19 Rekha Osborne MD [address] [place] [address] Medical Oncologist/Manager Of Development Hematology 05/11/20 Mayuri Lyn, RN 4590 [facility] [address] [place] [address] SHOP Outpatient Child Support Agent 12/04/20 01/04/21 Michelle Colin LCSW 4590 [facility] ([facility]) Mailstop [phone] [place] [address] SHOP Outpatient Child Support Agent 10/19/21 11/16/21 documented as of this encounter
--- OUTSIDE RECORDS SUMMARY | 2024-10-18 15:06 | XMS_ITS | Encounter Summary ---
Author Organization [facility] Address [address] [place] [address] Phone Care Team Providers Care Bridge Repair Crew Person Name Role Phone Zoila Gleason MD Primary Care Provider Rupal Isabel MD Unavailable [phone] Rekha Osborne MD Unavailable [phone] Mayuri Lyn RN Unavailable Michelle Colin CONDITIONER TUMBLER OPERATOR Unavailable Encounter Details Date Type Department [...] on file Legal Sex Male 1:53 AM ACTIVITY LEADER Gender Identity Male 10/02/2023 12:44 PM [...] COVID: Recovered 11/29/2020 11/29/2020 03/29/2021 3:05 AM ACTIVITY LEADER COVID: Suspected 10/09/2021 10/09/2021 10/09/2021 9:37 AM CDT COVID: Suspected 03/06/2022 03/06/2022 03/06/2022 9:30 AM ACTIVITY LEADER RSV, droplet 03/06/2022 03/06/2022 03/13/2022 3:05 AM ACTIVITY LEADER COVID: Suspected 06/26/2022 06/26/2022 06/26/2022 5:59 PM CDT Coronavirus, droplet 06/26/2022 06/26/2022 023 3:06 AM CDT documented as of this encounter Care Teams Bridge Repair Crew Person Relationship Specialty Start Date End Date Zoila Gleason MD [address] [place] [address] PCP - General 09/29/16 Rupal Isabel MD [address] [place] [address] [address] [place] [address] Referring Physician Allergy and Immunology 01/11/19 Rekha Osborne MD [address] [place] [address] Medical Oncologist/Piano Regulator Inspector Hematology 05/11/20 Mayuri Lyn, RN 4590 [facility] [address] [place] [address] SHOP Outpatient Software Project Lead 12/04/20 01/04/21 Michelle Colin LCSW 4590 [facility] ([facility] [place]) Mailstop [phone] [place] [address] SHOP Outpatient Software Project Lead 10/19/21 11/16/21 documented as of this encounter
--- OUTSIDE RECORDS SUMMARY | 2024-10-18 15:06 | XMS_ITS | Encounter Summary ---
Author Organization [facility] of [facility] Address [address] [place] [address] Phone Care Team Providers Care Interior Design Program Chair Name Role Phone Zoila Gleason MD Primary Care Provider Rupal Isabel MD Unavailable [phone] Rekha Osborne MD Unavailable [phone] Mayuri Lyn RN Unavailable Michelle Colin CVOR NURSE Unavailable [phone] Encounter Details Date Type Department Care Team [...] on file Legal Sex Male 1:53 AM FEATHER EDGER Gender Identity Male 10/02/2023 12:44 PM CDT [...] COVID: Recovered 11/29/2020 11/29/2020 03/29/2021 3:05 AM FEATHER EDGER COVID: Suspected 10/09/2021 10/09/2021 10/09/2021 9:37 AM CDT COVID: Suspected 03/06/2022 03/06/2022 03/06/2022 9:30 AM FEATHER EDGER RSV, droplet 03/06/2022 03/06/2022 03/13/2022 3:05 AM FEATHER EDGER COVID: Suspected 06/26/2022 06/26/2022 06/26/2022 5:59 PM CDT Coronavirus, droplet 06/26/2022 06/26/2022 023 3:06 AM CDT documented as of this encounter Care Teams Interior Design Program Chair Relationship Specialty Start Date End Date Zoila Gleason MD [address] [place] [address] PCP - General 09/29/16 Rupal Isabel MD [address] [place] [address] [address] [place] [address] Referring Physician Allergy and Immunology 01/11/19 Rekha Osborne MD [address] [place] [address] Medical Oncologist/Signals Intelligence Analyst Hematology 05/11/20 Mayuri Lyn, RN 4590 [facility] [address] [place] [address] SHOP Outpatient High Density Press Operator 12/04/20 01/04/21 Michelle Colin LCSW 4590 [facility] ([facility] Mailstop [phone] [place] [address] SHOP Outpatient High Density Press Operator 10/19/21 11/16/21 documented as of this encounter
--- OUTSIDE RECORDS SUMMARY | 2024-10-18 15:06 | XMS_ITS | Encounter Summary ---
Author Organization [facility] of [facility] Address [address] [place] [address] Phone Care Team Providers Care Construction Director Name Role Phone Zoila Gleason MD Primary Care Provider [phone] Rupal Isabel MD Unavailable [phone] Rekha Osborne MD Unavailable [phone] Mayuri Lyn RN Unavailable [phone] Michelle Colin [employer] SPECIAL ED TEACHER Unavailable [phone] Encounter Details Date Type Department Care Team [...] on file Legal Sex Male 1:53 AM WINDOWS MOBILE DEVELOPER Gender Identity Male 10/02/2023 12:44 PM [...] COVID: Recovered 11/29/2020 11/29/2020 03/29/2021 3:05 AM WINDOWS MOBILE DEVELOPER COVID: Suspected 10/09/2021 10/09/2021 10/09/2021 9:37 AM CDT COVID: Suspected 03/06/2022 03/06/2022 03/06/2022 9:30 AM WINDOWS MOBILE DEVELOPER RSV, droplet 03/06/2022 03/06/2022 03/13/2022 3:05 AM WINDOWS MOBILE DEVELOPER COVID: Suspected 06/26/2022 06/26/2022 06/26/2022 5:59 PM CDT Coronavirus, droplet 06/26/2022 06/26/2022 023 3:06 AM CDT documented as of this encounter Care Teams Construction Director Relationship Specialty Start Date End Date Zoila Gleason MD [address] [place] [address] PCP - General 09/29/16 Rupal Isabel MD [address] [place] [address] [address] [place] [address] Referring Physician Allergy and Immunology 01/11/19 Rekha Osborne MD [address] [place] [address] Medical Oncologist/Farm Facility Manager Hematology 05/11/20 Mayuri Lyn, RN 4590 [facility] [address] [place] [address] SHOP Outpatient Indoor Sports Centre Manager 12/04/20 01/04/21 Michelle Colin LCSW 4590 [facility] ([facility] Mailstop [phone] [place] [address] SHOP Outpatient Indoor Sports Centre Manager 10/19/21 11/16/21 documented as of this encounter
--- OUTSIDE RECORDS SUMMARY | 2024-10-18 15:06 | XMS_ITS | Encounter Summary ---
Author Organization [facility] Address [address] [place] [address] Phone Care Team Providers Care Undercutter Name Role Phone Zoila Gleason MD Primary Care Provider Rupal Isabel MD Unavailable [phone] Rekha Osborne MD Unavailable [phone] Mayuri Lyn RN Unavailable [phone] Michelle Colin HAT BODY INSPECTOR Unavailable [phone] Encounter Details Date Type Department Care Team [...] on file Legal Sex Male 1:53 AM ENGRAVINGS POLISHER Gender Identity Male 10/02/2023 12:44 PM CDT [...] COVID: Recovered 11/29/2020 11/29/2020 03/29/2021 3:05 AM ENGRAVINGS POLISHER COVID: Suspected 10/09/2021 10/09/2021 10/09/2021 9:37 AM CDT COVID: Suspected 03/06/2022 03/06/2022 03/06/2022 9:30 AM ENGRAVINGS POLISHER RSV, droplet 03/06/2022 03/06/2022 03/13/2022 3:05 AM ENGRAVINGS POLISHER COVID: Suspected 06/26/2022 06/26/2022 06/26/2022 5:59 PM CDT Coronavirus, droplet 06/26/2022 06/26/2022 023 3:06 AM CDT documented as of this encounter Care Teams Undercutter Relationship Specialty Start Date End Date Zoila Gleason MD [address] [place] [address] PCP - General 09/29/16 Rupal Isabel MD [address] [place] [address] [address] [place] [address] Referring Physician Allergy and Immunology 01/11/19 Rekha Osborne MD [address] [place] [address] Medical Oncologist/Yard Pipe Grader Hematology 05/11/20 Mayuri Lyn, RN 4590 [facility] [address] [place] [address] SHOP Outpatient Pad Machine Feeder 12/04/20 01/04/21 Michelle Colin LCSW 4590 [facility] ([facility] Mailstop [phone] [place] [address] SHOP Outpatient Pad Machine Feeder 10/19/21 11/16/21 documented as of this encounter
--- OUTSIDE RECORDS SUMMARY | 2024-10-18 15:06 | XMS_ITS | Encounter Summary ---
Author Organization [facility] Address [address] [place] [address] Phone Care Team Providers Care Water Resources Project Manager Name Role Phone Zoila Gleason MD Primary Care Provider [phone] Rupal Isabel MD Unavailable [phone] Rekha Osborne MD Unavailable [phone] Mayuri Lyn RN Unavailable [phone] Michelle Colin MECHANICAL ENERGY ENGINEER Unavailable Encounter Details Date Type Department Care [...] than three times a week 12/10/2020 Attends Jew Services Not on file 12/10 Active Member [...] file Legal Sex Male 1:53 AM SUPERVISOR FUNCTIONAL TESTING Gender Identity Male 10/02/2023 12:44 PM CDT [...] Recovered 11/29/2020 11/29/2020 03/29/2021 3:05 AM SUPERVISOR FUNCTIONAL TESTING COVID: Suspected 10/09/2021 10/09/2021 10/09/2021 9:37 AM CDT COVID: Suspected 03/06/2022 03/06/2022 03/06/2022 9:30 AM SUPERVISOR FUNCTIONAL TESTING RSV, droplet 03/06/2022 03/06/2022 03/13/2022 3:05 AM SUPERVISOR FUNCTIONAL TESTING COVID: Suspected 06/26/2022 06/26/2022 06/26/2022 5:59 PM CDT Coronavirus, droplet 06/26/2022 06/26/2022 023 3:06 AM CDT documented as of this encounter Care Teams Water Resources Project Manager Relationship Specialty Start Date End Date Zoila Gleason MD [address] [place] [address] PCP - General 09/29/16 Rupal Isabel MD 10 [facility] [address] [place] [address] Referring Physician Allergy and Immunology 01/11/19 Rekha Osborne MD [address] [place] [address] Medical Oncologist/Injection Specialist Hematology 05/11/20 Mayuri Lyn, RN [address] [facility] [address] [place] [address] SHOP Outpatient Professor Of Psychiatry 12/04/20 01/04/21 Michelle Colin LCSW 4590 [facility] ([facility] [place] [place] Mailstop [phone] [place] [address] SHOP Outpatient Professor Of Psychiatry 10/19/21 11/16/21 documented as of this encounter
--- OUTSIDE RECORDS SUMMARY | 2024-10-18 15:06 | XMS_ITS | Encounter Summary ---
Author Organization [facility] Address [address] [place] [address] Phone Care Team Providers Care Bolt Sorter Name Role Phone Zoila Gleason MD Primary Care Provider [phone] Rupal Isabel MD Unavailable [phone] Rekha Osborne MD Unavailable [phone] Mayuri Lyn RN Unavailable Michelle Colin CARGO INSPECTOR Unavailable Encounter Details Date Type Department Care [...] on file Legal Sex Male 1:53 AM FOOT GATHERER Gender Identity Male 10/02/2023 12:44 PM CDT [...] COVID: Recovered 11/29/2020 11/29/2020 03/29/2021 3:05 AM FOOT GATHERER COVID: Suspected 10/09/2021 10/09/2021 10/09/2021 9:37 AM CDT COVID: Suspected 03/06/2022 03/06/2022 03/06/2022 9:30 AM FOOT GATHERER RSV, droplet 03/06/2022 03/06/2022 03/13/2022 3:05 AM FOOT GATHERER COVID: Suspected 06/26/2022 06/26/2022 06/26/2022 5:59 PM CDT Coronavirus, droplet 06/26/2022 06/26/2022 023 3:06 AM CDT documented as of this encounter Care Teams Bolt Sorter Relationship Specialty Start Date End Date Zoila Gleason MD [address] [place] [address] PCP - General 09/29/16 Rupal Isabel MD [address] [place] [address] [facility] [address] [place] [address] Referring Physician Allergy and Immunology 01/11/19 Rekha Osborne MD [address] [place] [address] Medical Oncologist/Gas Systems Worker Hematology 05/11/20 Mayuri Lyn, RN 45[address] [facility] [address] [place] [address] SHOP Outpatient Rotating Field Assembler 12/04/20 01/04/21 Michelle Colin LCSW 4590 [facility] ([facility] [place]) Mailstop [phone] [place] [address] SHOP Outpatient Rotating Field Assembler 10/19/21 11/16/21 documented as of this encounter
[2024-10-18 18:06] LABS: Hematocrit 50.2 % (42.0-52.0); Hemoglobin 16.4 g/dL (14.0-18.0); Immature Granulocyte Percent A 0.8 % (0-0.5); Immature Reticulocyte Fraction 13.9 % (3.0-15.9); Lymphocytes Absolute Auto 1.74 K/mm3 (0.9-3.2); Mean Corpuscular HGB Conc 32.7 g/dl (32-36); Mean Corpuscular Hemoglobin 31.3 pg (26-34); Mean Corpuscular Volume 95.8 fl (80-100); Nucleated Red Blood Cells Absolute Auto 0.000 K/mm3 (0.0-0.012); Nucleated Red Blood Cells Perc 0.0 % (0.0-0.2); Platelet Count Result 344 k/mm3 (150-375); Red Blood Count 5.24 M/mm3 (4.6-6.20); Reticulocyte Hemoglobin Conten 34.0 pg (28.2-36.6); Reticulocytes Absolute 0.10 10^6/uL (0.02-0.10); White Blood Count 14.5 K/mm3 (4.5-10.0)
[2024-10-18 18:15] LABS: Alanine Aminotransferase 28 U/L (6-50); Albumin Level 3.8 g/dL (3.5-5.1); Alkaline Phosphatase 94 U/L (38-126); Anion Gap 8 mmol/L (4-12); Aspartate Amino Transferase 61 U/L (17-59); Bilirubin,Total 0.4 mg/dL (0.2-1.3); Blood Urea Nitrogen 16 mg/dL (9-20); Calcium 9.3 mg/dL (8.4-10.2); Carbon Dioxide 24 mmol/L (22-30); Chloride 108 mmol/L (98-107); Estimated Glomerular Filt Rate > 60; Glucose 78 mg/dL (65-110); Potassium 4.4 mmol/L (3.4-5.0); Sodium 140 mmol/L (137-145); Total Protein 7.2 g/dL (6.3-8.2)
[2024-10-18 18:47] LABS: Ferritin 76.20 ng/mL (17.9-464)
[2024-10-22 10:08] LABS: Free Testosterone (Direct) 1.4 pg/mL (9.3-26.5)
== END 2024-10-18 15:03 | disposition home or self-care (01) ==
LOC: ANHGOSHLAB 15:03
PROVIDERS: PCP Pediatrics; Visit Provider Internal Medicine
DX: D69.6 Thrombocytopenia, unspecified (principal); E29.1 Testicular hypofunction; R74.8 Abnormal levels of other serum enzymes; Z90.81 Acquired absence of spleen; D50.9 Iron deficiency anemia, unspecified; D69.41 Evans syndrome
CPT/HCPCS: 36415; 80053; 82728; 83615; 84402; 84403; 85025; 85046

== ENCOUNTER 2024-10-23 15:43 | Outpatient (CLI) | payer BC, MEDICAID, SELFPAY ==
--- NOTE | ~2024-10-23 | XR_ITS ---
CHEST RADIOGRAPH, PA AND LATERAL CLINICAL HISTORY: URI . COMPARISON: 08/31/2024 TECHNIQUE: PA and lateral views of the chest. FINDINGS Sternal wires and mediastinal clips are identified, the wires are midline and intact. The remainder of the cardiomediastinal silhouette is otherwise unremarkable. 19 mm asymmetry within the left mid to upper lung field for which cross-sectional imaging (noncontras t enhanced CT examination of the chest) is suggested for further evaluation. The remainder of the lungs are clear. IMPRESSION: 19 mm asymmetry within the left mid to upper lung field for which cross-sectional imaging (noncontras t enhanced CT examination of the chest) is suggested for further evaluation. This is an interval change from previous examination dated 08/31/2024 Reviewed, dictated and finalized at location A. IMPRESSION: 19 mm asymmetry within the left mid to upper lung field for which cross-section al imaging (noncontrast enhanced CT examination of the chest) is suggested for further evaluation. This is an interval change from previous examination dated 08/31/2024
--- OUTSIDE RECORDS SUMMARY | 2024-10-23 15:49 | XMS_ITS | Encounter Summary ---
Author Organization [facility] Address [address] [place] [address] Phone Care Team Providers Care Braille Coder Name Role Phone Zoila Gleason MD Primary Care Provider [phone] Rupal Isabel MD Unavailable [phone] Rekha Osborne MD Unavailable [phone] Encounter Details Date Type Department Care Team [...] often do you attend chur ch or zoroastrianism services? Never 10/11/2021 Do you belong to [...] file Legal Sex Male 1:53 AM CASTING MACHINE OPERATOR AUTOMATIC Gender Identity Male 10/02/2023 12:44 PM CDT [...] documented as of this encounter Care Teams Braille Coder Relationship Specialty Start Date End Date Zoila Gleason MD [address] [place] [address] PCP - General 09/29/16 Rupal Isabel MD 10 [facility] [address] [place] [address] Referring Physician Allergy and Immunology 01/11/19 Rekha Osborne MD [address] [place] [address] Medical Oncologist/Stamper Blocker Hematology 05/11/20 documented as of this encounter
--- OUTSIDE RECORDS SUMMARY | 2024-10-23 15:49 | XMS_ITS | Referral Summary ---
Author Organization [facility] Address [address] [place] [address] Care Team Providers Care Concrete Paver Name Role Phone Zoila Gleason MD Primary Care Provider [phone] Rupal Isabel MD Unavailable Rekha Osborne MD Unavailable [phone] Encounters Date Type Department Care Team Description 10/03/2024 Telephone [facility] Endocrinology Metabolism and Lipid [address] [facility] Medical Office Building [address], [address] [place] [address] Ciarra Cox RN 08/12/2024 1:00 PM CDT Telemedicine [facility] Allergy and Immunology [address] [facility] [address] [place] [address] Rupal Isabel MD CVID (common variable immunodeficiency) (HCC) (Primary Dx); Arpita's syndrome (HCC); Flexural atopic dermatitis 08/02/2024 Telephone [facility] Endocrinology Metabolism and Lipid [address] [facility] 5th [place] [address] [place] [address] Rose Marie Maurer RMA Prior [...] Never used. 07/07/19 21 Active Darius Rene [facility] spacer USE WITH [...] 1 tablet (112 mcg total) by mouth drafting clerk before breakfast 03/10/20 23 Active Solu-CORTEF [...] stooling. -As of 12/18/23 at 1300, per [facility] [phone] - E. Coli. -Repeat blood cultures NGTD -Received cefepime; changed to cefuroxime to complete a 7 day course. Source is suspected to be UTI -TTE neg for vegetations Leukocytosis 12/17/2023 Assessment & Plan (12/17/2023 8:50 PM CDT): CBC at [facility] 12/15 WBC 20.5 (81% neutrophils). 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 Hgb now [...] cytopenia, his initial presentation for thrombocytopenia to [facility] was in 2012 (17 yo) [...] responded to steroid and rituximab last time ([id number]). During his last admission for UTI, he [...] bid - received stress dose steroids at [facility] - continue pred 5 BID - per [...] antibody (red top 2 ml) 2107 to [place] - consider ACTH stim test this admission [...] patient on 11/07. CVID (common variable immunodeficiency) ([facility] ) 04/16/2018 Assessment & Plan [...] AM CDT): Stable. Followed by endocrinology at [facility]. Currently on 150 mcg levothyroxine [...] Avoid concomitant administration of Levothyroxine with patient's PAWN SHOP KEEPER iron. Separate dosing by at least 4 [...] Assessment & Plan (11/08/2019 6:50 PM CDT): SABRNIA now resolved - Cr on 11/07 was [...] any clubs o r organizations such as sabianist groups, unions, fraternal or athletic groups, or [...] place to sleep or slept in a halfway (including now)? No 10/11/2021 Personal Safety Answer Date Recorded Have you ever been in or are you currently in a harmful physical or emotional relationship or is someone making you feel afraid or unsafe? Patient unable to answer 12/18/2023 Sex and Gender Information Value Date Recorded Sex Assigned at Not on file Legal Sex Male 1:53 AM IMPORT EXPORT MANAGER Gender Identity Male 10/02/2023 12:44 PM CDT Sexual Orientation Don't know 11/15/2020 1: 06 PM CDT Last Filed Vital Signs Vital Sign Reading Time Taken Comments Blood Pressure 117/79 05/13/2024 2:31 PM IMPORT EXPORT MANAGER Pulse 90 05/13/2024 2:31 PM IMPORT EXPORT MANAGER Temperature 36.9 C (98.5 F) 05/13/2024 2:31 PM IMPORT EXPORT MANAGER Respiratory Rate 18 03/12/2024 2:48 PM IMPORT EXPORT MANAGER Oxygen Saturation 96% 03/12/2024 2:48 PM IMPORT EXPORT MANAGER Inhaled Oxygen Concentration - - Weight 60.8 kg (134 lb) 05/13/2024 2:31 PM IMPORT EXPORT MANAGER Height 160 cm (5' 3) 05/13/2024 2:31 PM IMPORT EXPORT MANAGER Body Mass Index 23.74 05/13/2024 2:31 PM IMPORT EXPORT MANAGER Plan of Treatment Not on file Procedures Procedure Name Priority Date/Time Associated Diagnosis Comments HEPATITIS PANEL, ACUTE Routine 11/28/2020 5:33 PM CDT from Last 3 Months or Most Recently Relevant to Health Maintenance Results * Hepatitis panel, acute (11/28/2020 5:33 PM CDT) Hep A IgM Nonreactive Nonreactive [facility] Comment: Interpretive Data: If Hep A [...] 19. Hep C Ab Nonreactive Nonreactive [facility] Comment:Antibodies to HCV no t detected. Does NOT exclude the possibility of recent exposure to HCV. HepBsAg Nonreactive Nonreactive [facility] Blood 11/28/2020 5:33 PM CDT 11/28/2020 5:53 PM CDT us Jazzmine Mccartney NP LAB MICROBIO LOGY - GENERAL ORDERABLES Edited Result - Final [facility] One [facility] Department [place] [address] from Last 3 Months or Most Recently Relevant to Health Maintenance Insurance CHOICE PRF [place] [facility] CHOICE PLUS [facility] OPEN [facility] PPO [place] ID[place] [facility] CHOICE PLUS HEALTHPPLCONNECT OPEN ACCESS [place] [employer] OPEN ACCESS [facility] CHOICE PLUS Advance Directives For more information, please contact: [phone] Documents on File Type Date Recorded Patient Ceramic Design Engineer Expl anation Power of Trim Setter Helper 10/21/2021 12:58 PM ADVANCE DIRECTIVE 10/14/2019 12:35 [...] 5:09 PM 01/02/2021 6:56 PM Care Teams Concrete Paver Relationship Specialty Start Date End Date Zoila Gleason MD [address] [place] [address] PCP - General 09/29/16 Rupal Isabel MD 10 [facility] [address] [place] [address] Referring Physician Allergy and Immunology 01/11/19 Rekha Osborne MD [address] [place] [address] Medical Oncologist/Worker'S Compensation Claims Examiner Hematology 05/11/20
--- OUTSIDE RECORDS SUMMARY | 2024-10-23 15:49 | XMS_ITS | Clinical Summary ---
Author Organization [facility] Address [address] [place] [address] Care Team Providers Care Gas And Oil Checker Name Role Phone Zoila Gleason MD Primary Care Provider [phone] Rupal Isabel MD Unavailable [phone] Rekha Osborne MD Unavailable [phone] Allergies Active Allergy Reactions Criticality Noted Date [...] Never used. 07/07/19 21 Active OptiChamber Anju [facility] spacer USE WITH INHALER DIRECTED [...] 1 tablet (112 mcg total) by mouth stage builder before breakfast 03/10/20 23 Active Solu-CORTEF Act-O-Vial, [...] stooling. -As of 12/18/23 at 1300, per [facility] [phone] - E. Coli. -Repeat blood cultures NGTD -Received cefepime; changed to cefuroxime to complete a 7 day course. Source is suspected to be UTI -TTE neg for vegetations Leukocytosis 12/17/2023 Assessment & Plan (12/17/2023 8:50 PM CDT): CBC at [facility] 12/15 WBC 20.5 (81% neutrophils). 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 Hgb now [...] purpura (ITP) ([facility]) 07/09/2020 Assessment & Plan (12/01/2020 2:02 [...] cytopenia, his initial presentation for thrombocytopenia to [facility] was in 2012 (17 yo) with petechiae [...] responded to steroid and rituximab last time ([id number]). During his last admission for UTI, he [...] bid - received stress dose steroids at [facility] - continue pred 5 BID - per [...] an anti-21 hydroxylase antibody to rule out Reading's as well as a low dose ACTH stim test at some point after 72 hours from last stress dose. He is very well appearing and does not have an indication for stress dosing at this time. - send anti-21 hydroxylase antibody (red top 2 ml) 2107 to [place] - consider ACTH stim test this admission [...] obtain anti-21 hydroxylase Ab to rule out Reading's disease. Assessment & Plan (12/29/2019 8:18 AM [...] variable immunodeficiency) ([facility] ) 04/16/2018 Assessment & Plan [...] AM CDT): Stable. Followed by endocrinology at [facility]. Currently on 150 mcg levothyroxine daily. 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 Separate dosing by at least 4 hours. Pediatric Endocrinology will continue to follow. 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 (05/14/2020): Autoimmune anemia, [...] Type Department Care Team Description 10/03/2024 Telephone [facility] Endocrinology Metabolism and Lipid [address] [facility] Medical Office Building [address], [address] [place] [address] Ciarra Cox RN 08/12/2024 1:00 PM CDT Telemedicine [facility] Allergy and Immunology [address] [place] [address] [address] [place] [address] Rupal Isabel MD CVID (common variable immunodeficiency) (HCC) (Primary Dx); Arpita's syndrome (HCC); Flexural atopic dermatitis 08/02/2024 Telephone [facility] Endocrinology Metabolism and Lipid [address] [facility] 5th [place] [address] [place] [address] Rose Marie Maurer, PEPE Prior [...] COVID-19 10/2019 Clotting disorder Heart disease s/p CO secondary to severe anemia GI (gastrointestinal bleed) [...] often do you attend chur ch or jew services? Never 10/11/2021 Do you belong to any clubs o r organizations such as taoist groups, unions, fraternal or athletic groups, or [...] slept in a intermediate (including now)? No 10/11/2021 Personal Safety Answer Date Recorded Have you ever been in or are you currently in a harmful physical or emotional relationship or is someone making you feel afraid or unsafe? Patient unable to answer 12/18/2023 Sex and Gender Information Value Date Recorded Sex Assigned at Not on file Legal Sex Male 1:53 AM TUTORING MANAGER Gender Identity Male 10/02/2023 12:44 PM CDT Sexual Orientation Don't know 11/15/2020 1: 06 PM CDT Obstetrics History Last Filed Vital Signs Vital Sign Reading Time Taken Comments Blood Pressure 117/79 05/13/2024 2:31 PM TUTORING MANAGER Pulse 90 05/13/2024 2:31 PM TUTORING MANAGER Temperature 36.9 C (98.5 F) 05/13/2024 2:31 PM TUTORING MANAGER Respiratory Rate 18 03/12/2024 2:48 PM TUTORING MANAGER Oxygen Saturation 96% 03/12/2024 2:48 PM TUTORING MANAGER Inhaled Oxygen Concentration - - Weight 60.8 kg (134 lb) 05/13/2024 2:31 PM TUTORING MANAGER Height 160 cm (5' 3) 05/13/2024 2:31 PM TUTORING MANAGER Body Mass Index 23.74 05/13/2024 2:31 PM TUTORING MANAGER Plan of Treatment Health Maintenance Due [...] PM CDT) Hep A IgM Nonreactive Nonreactive [facility] Comment: Interpretive Data: If Hep A IgM Ab is reported as Equivocal, a new sample should be drawn in two weeks for testing. Current interpretive data was last revised on 19. Hep B core IgM Nonreactive Nonreactive [facility] Comment: Interpretive Data If HepB Core IgM Ab is reported as Equivocal, a new sample should be drawn in two weeks for testing. Current interpretive data was last revised on 19. Hep C Ab Nonreactive Nonreactive [facility] Comment:Antibodies to HCV no t detected. Does NOT exclude the possibility of recent exposure to HCV. HepBsAg Nonreactive Nonreactive [facility] Blood 11/28/2020 5:33 PM CDT 11/28/2020 5:53 PM CDT Jazzmine Mccartney NP LAB MICROBIO LOGY - GENERAL ORDERABLES Edited Result - Final [facility] One [facility] Department [place] [address] from Last 3 Months or Most Recently Relevant to Health Maintenance Insurance [place] [facility] CHOICE PLUS [facility] H[facility]/PPO Address: [address] [address] [place] [address] [employer] OPEN ACCESS [place] [facility] CHOICE PLUS [facility] HMO/PPO Address: [address] [address] [place] [address] [employer] OPEN ACCESS [place] [facility] [place] [employer] OPEN ACCESS [facility] CHOICE PLUS [facility] HMO/PPO Address: [address] [address] [place] [address] Advance Directives For more information, please contact: [phone] Documents on File Type Date Recorded Patient Machine Ii Trimmer Expl anation Power of Middle School Sports Coach 10/21/2021 12:58 PM ADVANCE DIRECTIVE 10/14/2019 12:35 [...] 5:09 PM 01/02/2021 6:56 PM Care Teams Gas And Oil Checker Relationship Specialty Start Date End Date Zoila Gleason MD [address] [place] [address] PCP - General 09/29/16 Rupal Isabel MD [address] [place] [address] [address] [place] [address] Referring Physician Allergy and Immunology 01/11/19 Rekha Osborne MD [address] [place], [place] [address] Medical Oncologist/Picker/Puller Hematology 05/11/20
--- OUTSIDE RECORDS SUMMARY | 2024-10-23 15:49 | XMS_ITS | Clinical Summary ---
Author Organization [facility] Address [address] [place] [address] Care Team Providers Care Waterworks Pump Station Operator Name Role Phone Unavailable Primary Care Provider [...] WEEKS. 24 Packet 1 03/02/2023 2:48 PM COMPUTER SYSTEMS MANAGER 3 Active clindamycin phosphate (CLEOCIN T) [...] procedure 4 Capsule 1 03/02/2023 2:45 PM COMPUTER SYSTEMS MANAGER 3 Active docusate sodium (COLACE) 100 mg capsule Take one capsule (100 mg) orally twice a day 60 Capsule 3 03/14/2023 12:03 PM COMPUTER SYSTEMS MANAGER 3 Active levothyroxine 112 mcg tablet Take one tablet (112 mcg) orally every morning 90 Tablet 2 03/14/2023 12:03 PM COMPUTER SYSTEMS MANAGER 3 Active pantoprazole (PROTONIX) 40 mg Tablet, Delayed Release (E.C.) Take one tablet (40 mg) orally daily 60 Tablet 03/14/2023 12:03 PM COMPUTER SYSTEMS MANAGER 3 Active sertraline (ZOLOFT) 100 mg tablet Take one tablet (50 mg) orally daily 90 Tablet 3 3 Active hydrocortisone sod succ, PF, (Solu-CORTEF Act-O-Vial, PF,) 100 mg/2 mL Recon Soln Inject 2 mL (100 mg) by intramuscular injection 1 time daily as needed for adrenal crisis. 10 Each 2 04/17/2023 6:40 PM COMPUTER SYSTEMS MANAGER 4 Active apixaban (Eliquis) 5 mg tablet Take 1 Tablet (5 mg) by mouth 2 times daily. 30 Tablet 1 04/08/2023 4:00 PM COMPUTER SYSTEMS MANAGER 4 Active nirmatrelvir-r itonavir (Paxlovid) 300(150mg x 2)-100 mg oral pack TAKE 2 TABLETS OF NIRMATRELVIR AND 1 TABLET OF RITONAVIR BY MOUTH TWICE DAILY FOR 5 DAYS 30 Each 4 Active predniSONE (DELTASONE) 1 mg tablet TAKE 1-4 TABLETS BY MOUTH DAILY DIRECTED BY PHYSICIAN. TAKE WITH 5 MG DAILY. 120 Tablet 2 04/25/2023 2:35 PM COMPUTER SYSTEMS MANAGER 4 Active nirmatrelvir-r itonavir (Paxlovid) 300(150mg [...] failure. 90 Tablet 2 04/25/2023 2:35 PM COMPUTER SYSTEMS MANAGER 4 Active Immunizations Immunization Administration Dates [...] 3-dose series) 2016 INFLUENZA VACCINE (#1) 2024 12/29/2022, 2021 Insurance RX [employer] Commercial RX [employer] PLANS (INTERNAL) [facility] RX CH[employer] Medicaid
--- OUTSIDE RECORDS SUMMARY | 2024-10-23 15:49 | XMS_ITS | Encounter Summary ---
Author Organization [facility] Address [address] [place] [address] Phone Care Team Providers Care Western Felt Hat Blocker Name Role Phone Zoila Gleason MD Primary Care Provider Rupal Isabel MD Unavailable Rekha Osborne MD Unavailable [phone] Mayuri Lyn RN Unavailable [phone] Michelle Colin TRAINING ASSOCIATE Unavailable Encounter Details Date Type Department Care [...] on file Legal Sex Male 1:53 AM ACCOUNTING CONSULTANT Gender Identity Male 10/02/2023 12:44 PM [...] COVID: Suspected 04/21/2020 04/21/2020 04/21/2020 11:24 AM ACCOUNTING CONSULTANT Respiratory Infection (MICKEY), contact + droplet Comment:Automatically added due to negative COVID-19 result. 04/21/2020 04/21/2020 05/05/2020 3:0 6 AM ACCOUNTING CONSULTANT COVID: Suspected 04/21/2020 04/21/2020 04/21/2020 6:48 PM ACCOUNTING CONSULTANT COVID: Suspected 09/25/2020 09/25/2020 09/25/2020 10:11 AM CDT Rhino/Enterovirus 09/25/2020 09/25/2020 10/02/2020 3:05 AM CDT COVID: Recovered 11/29/2020 11/29/2020 03/29/2021 3:05 AM ACCOUNTING CONSULTANT COVID: Suspected 10/09/2021 10/09/2021 10/09/2021 9:37 AM CDT COVID: Suspected 03/06/2022 03/06/2022 03/06/2022 9:30 AM ACCOUNTING CONSULTANT RSV, droplet 03/06/2022 03/06/2022 03/13/2022 3:05 AM ACCOUNTING CONSULTANT COVID: Suspected 06/26/2022 06/26/2022 06/26/2022 5:59 PM CDT Coronavirus, droplet 06/26/2022 06/26/2022 023 3:06 AM CDT documented as of this encounter Care Teams Western Felt Hat Blocker Relationship Specialty Start Date End Date Zoila Gleason MD [address] [place] [address] PCP - General 09/29/16 Rupal Isabel MD [address] [place] [address] [address] Referring Physician Allergy and Immunology 01/11/19 Rekha Osborne MD [address] [place] [address] Medical Oncologist/Flight Dynamicist Hematology 05/11/20 Mayuri Lyn, RN [address] [facility] [address] [place] [address] SHOP Outpatient Zmt Operator 12/04/20 01/04/21 Michelle Colin [facility] 57[address] [facility] ([facility] Mailstop [phone] [place] [address] SHOP Outpatient Zmt Operator 10/19/21 11/16/21 documented as of this encounter
--- OUTSIDE RECORDS SUMMARY | 2024-10-23 15:50 | XMS_ITS | Encounter Summary ---
Author Organization [facility] Healthcare Address [address] [place] [address] Care Team Providers Care Kick Plate Installer Name Role Phone Zoila Gleason MD Primary Care Provider Rupal Isabel MD Unavailable [phone] Rekha Osborne MD Unavailable [phone] Mayuri Lyn RN Unavailable [phone] Michelle Colin [facility] [place] [facility] Unavailable [phone] Encounter Details Date Type Department Care Team (Late st Contact Info) Description 11/12/2020 Telephone [facility] [address] [place] [address] Aiyana Lovelace, ZOFIA [...] file Legal Sex Male 1:53 AM DIRECTOR PHARMACOLOGY Gender Identity Male 10/02/2023 12:44 PM CDT Sexual Orientation Don't know 11/15/2020 1: 06 PM CDT documented as of this encounter Plan of Treatment Not on file documented as of this encounter Visit Diagnoses Not on filedocumented in this encounter Additional Health Concerns Infection Onset Date Last Indicated Resolved Time COVID: Recovered 11/29/2020 11/29/2020 03/29/2021 3:05 AM DIRECTOR PHARMACOLOGY COVID: Suspected 10/09/2021 10/09/2021 10/09/2021 9:37 AM CDT COVID: Suspected 03/06/2022 03/06/2022 03/06/2022 9:30 AM DIRECTOR PHARMACOLOGY RSV, droplet 03/06/2022 03/06/2022 03/13/2022 3:05 AM DIRECTOR PHARMACOLOGY COVID: Suspected 06/26/2022 06/26/2022 06/26/2022 5:59 PM CDT Coronavirus, droplet 06/26/2022 06/26/2022 023 3:06 AM CDT documented as of this encounter Care Teams Kick Plate Installer Relationship Specialty Start Date End Date Zoila Gleason MD [address] [place] [address] PCP - General 09/29/16 Rupal Isabel MD 10 [facility] [address] [place] [address] Referring Physician Allergy and Immunology 01/11/19 Rekha Osborne MD [address] [place] [address] Medical Oncologist/Structural Steel Worker Helper Hematology 05/11/20 Mayuri Lyn, RN 4590 [facility] [address] [place] [address] SHOP Outpatient Chenille Machine Operator 12/04/20 01/04/21 Michelle Colin LCSW 4590 [facility] ([facility] Mailstop [phone] [place] [address] SHOP Outpatient Chenille Machine Operator 10/19/21 11/16/21 documented as of this encounter
--- OUTSIDE RECORDS SUMMARY | 2024-10-23 15:50 | XMS_ITS | Encounter Summary ---
Author Organization [facility] Address [address] [place] [address] Phone Care Team Providers Care Pattern Filer Name Role Phone Zoila Gleason MD Primary Care Provider [phone] Rupal Isabel MD Unavailable [phone] Rekha Osborne MD Unavailable [phone] Mayuri Lyn RN Unavailable Michelle Colin EXHIBITIONS CURATOR Unavailable [phone] Encounter Details Date Type Department Care Team [...] on file Legal Sex Male 1:53 AM ROTARY ENVELOPE MACHINE OPERATOR Gender Identity Male 10/02/2023 12:44 [...] COVID: Recovered 11/29/2020 11/29/2020 03/29/2021 3:05 AM ROTARY ENVELOPE MACHINE OPERATOR COVID: Suspected 10/09/2021 10/09/2021 10/09/2021 9:37 AM CDT COVID: Suspected 03/06/2022 03/06/2022 03/06/2022 9:30 AM ROTARY ENVELOPE MACHINE OPERATOR RSV, droplet 03/06/2022 03/06/2022 03/13/2022 3:05 AM ROTARY ENVELOPE MACHINE OPERATOR COVID: Suspected 06/26/2022 06/26/2022 06/26/2022 5:59 PM CDT Coronavirus, droplet 06/26/2022 06/26/2022 023 3:06 AM CDT documented as of this encounter Care Teams Pattern Filer Relationship Specialty Start Date End Date Zoila Gleason MD [address] [place] [address] PCP - General 09/29/16 Rupal Isabel MD [address] [place] [address] [address] [place] [address] Referring Physician Allergy and Immunology 01/11/19 Rekha Osborne MD [address] [place] [address] Medical Oncologist/Road Oiling Truck Driver Hematology 05/11/20 Mayuri Lyn, RN 45[address] [facility] [address] [place] [address] SHOP Outpatient Hybrid Derivatives Trader 12/04/20 01/04/21 Michelle Colin LCSW 4590 [facility] ([facility] Mailstop [phone] [place] [address] SHOP Outpatient Hybrid Derivatives Trader 10/19/21 11/16/21 documented as of this encounter
--- OUTSIDE RECORDS SUMMARY | 2024-10-23 15:50 | XMS_ITS | Encounter Summary ---
Author Organization [facility] Address [address] [place] [address] Phone Care Team Providers Care Rehabilitation Services Aide Name Role Phone Zoila Gleason MD Primary Care Provider Rupal Isabel MD Unavailable [phone] Rekha Osborne MD Unavailable [phone] Mayuri Lyn RN Unavailable Michelle Colin CONSTRUCTION PROJECT MGR Unavailable Encounter Details Date Type Department Care [...] on file Legal Sex Male 1:53 AM SEISMIC PROSPECTING SUPERVISOR Gender Identity Male 10/02/2023 12:44 PM [...] COVID: Suspected 04/21/2020 04/21/2020 04/21/2020 11:24 AM SEISMIC PROSPECTING SUPERVISOR Respiratory Infection (MICKEY), contact + droplet Comment:Automatically added due to negative COVID-19 result. 04/21/2020 04/21/2020 05/05/2020 3:0 6 AM SEISMIC PROSPECTING SUPERVISOR COVID: Suspected 04/21/2020 04/21/2020 04/21/2020 6:48 PM SEISMIC PROSPECTING SUPERVISOR COVID: Suspected 09/25/2020 09/25/2020 09/25/2020 10:11 AM CDT Rhino/Enterovirus 09/25/2020 09/25/2020 10/02/2020 3:05 AM CDT COVID: Recovered 11/29/2020 11/29/2020 03/29/2021 3:05 AM SEISMIC PROSPECTING SUPERVISOR COVID: Suspected 10/09/2021 10/09/2021 10/09/2021 9:37 AM CDT COVID: Suspected 03/06/2022 03/06/2022 03/06/2022 9:30 AM SEISMIC PROSPECTING SUPERVISOR RSV, droplet 03/06/2022 03/06/2022 03/13/2022 3:05 AM SEISMIC PROSPECTING SUPERVISOR COVID: Suspected 06/26/2022 06/26/2022 06/26/2022 5:59 PM CDT Coronavirus, droplet 06/26/2022 06/26/202207/03/ 023 3:06 AM CDT documented as of this encounter Care Teams Rehabilitation Services Aide Relationship Specialty Start Date End Date Zoila Gleason MD [address] [place] [address] PCP - General 09/29/16 Rupal Isabel MD 10 [facility] [address] [place] [address] Referring Physician Allergy and Immunology 01/11/19 Rekha Osborne MD [address] [place] [address] Medical Oncologist/Electrician Manager Hematology 05/11/20 Mayuri Lyn, RN 4590 [facility] [address] [place] [address] SHOP Outpatient Environmental Health And Safety Manager 12/04/20 01/04/21 Michelle Colin CONSTRUCTION PROJECT MGR 4590 [facility] ([facility] Mailstop [phone] [place] [address] SHOP Outpatient Environmental Health And Safety Manager 10/19/21 11/16/21 documented as of this encounter
--- OUTSIDE RECORDS SUMMARY | 2024-10-23 15:50 | XMS_ITS | Encounter Summary ---
Author Organization [facility] Address [address] [place] [address] Phone Care Team Providers Care Sandblast Operator Name Role Phone Zoila Gleason MD Primary Care Provider Rupal Isabel MD Unavailable [phone] Rekha Osborne MD Unavailable [phone] Mayuri Lyn RN Unavailable Michelle Colin CRIMINAL INTELLIGENCE ANALYST Unavailable Encounter Details Date Type Department Care [...] on file Legal Sex Male 1:53 AM INVESTMENT ANALYST Gender Identity Male 10/02/2023 12:44 PM [...] COVID: Suspected 04/21/2020 04/21/2020 04/21/2020 11:24 AM INVESTMENT ANALYST Respiratory Infection (MICKEY), contact + droplet Comment:Automatically added due to negative COVID-19 result. 04/21/2020 04/21/2020 05/05/2020 3:0 6 AM INVESTMENT ANALYST COVID: Suspected 04/21/2020 04/21/2020 04/21/2020 6:48 PM INVESTMENT ANALYST COVID: Suspected 09/25/2020 09/25/2020 09/25/2020 10:11 AM CDT Rhino/Enterovirus 09/25/2020 09/25/2020 10/02/2020 3:05 AM CDT COVID: Recovered 11/29/2020 11/29/2020 03/29/2021 3:05 AM INVESTMENT ANALYST COVID: Suspected 10/09/2021 10/09/2021 10/09/2021 9:37 AM CDT COVID: Suspected 03/06/2022 03/06/2022 03/06/2022 9:30 AM INVESTMENT ANALYST RSV, droplet 03/06/2022 03/06/2022 03/13/2022 3:05 AM INVESTMENT ANALYST COVID: Suspected 06/26/2022 06/26/2022 06/26/2022 5:59 PM CDT Coronavirus, droplet 06/26/2022 06/26/2022 023 3:06 AM CDT documented as of this encounter Care Teams Sandblast Operator Relationship Specialty Start Date End Date Zoila Gleason MD [address] [address] PCP - General 09/29/16 Rupal Isabel MD 10 [facility] [address] [place] [address] Referring Physician Allergy and Immunology 01/11/19 Rekha Osborne MD [address] [place] [address] Medical Oncologist/Investment Banking Associate Hematology 05/11/20 Mayuri Lyn, RN 4590 [facility] [address] [place] [address] SHOP Outpatient Cow Washer 12/04/20 01/04/21 Michelle Colin LCSW 4590 [facility] ([facility]) Mailstop [phone] [place] [address] SHOP Outpatient Cow Washer 10/19/21 11/16/21 documented as of this encounter
--- OUTSIDE RECORDS SUMMARY | 2024-10-23 15:50 | XMS_ITS | Encounter Summary ---
Author Organization [facility] Address [address] [place] [address] Phone Care Team Providers Care Hr Recruiter Name Role Phone Zoila Gleason MD Primary Care Provider Rupal Isabel MD Unavailable [phone] Rekha Osborne MD Unavailable [phone] Mayuri Lyn RN Unavailable Michelle Colin SANITARY CHEMIST Unavailable [phone] Encounter Details Date Type Department Care Team [...] file Legal Sex Male 1:53 AM EMERGENCY MANAGER Gender Identity Male 10/02/2023 12:44 PM [...] Recovered 11/29/2020 11/29/2020 03/29/2021 3:05 AM EMERGENCY MANAGER COVID: Suspected 10/09/2021 10/09/2021 10/09/2021 9:37 AM CDT COVID: Suspected 03/06/2022 03/06/2022 03/06/2022 9:30 AM EMERGENCY MANAGER RSV, droplet 03/06/2022 03/06/2022 03/13/2022 3:05 AM EMERGENCY MANAGER COVID: Suspected 06/26/2022 06/26/2022 06/26/2022 5:59 PM CDT Coronavirus, droplet 06/26/2022 06/26/2022 023 3:06 AM CDT documented as of this encounter Care Teams Hr Recruiter Relationship Specialty Start Date End Date Zoila Gleason MD [address] [place] [address] PCP - General 09/29/16 Rupal Isabel MD [address] [place] [address] [address] [place] [address] Referring Physician Allergy and Immunology 01/11/19 Rekha Osborne MD [address] [place] [address] Medical Oncologist/Psychiatric Aide Instructor Hematology 05/11/20 Mayuri Lyn, RN 4590 [facility] [address] [place] [address] SHOP Outpatient Track Maintainer 12/04/20 01/04/21 Michelle Colin LCSW 4590 [facility] ([facility] Mailstop [phone] [place] [address] SHOP Outpatient Track Maintainer 10/19/21 11/16/21 documented as of this encounter
--- OUTSIDE RECORDS SUMMARY | 2024-10-23 15:50 | XMS_ITS | Encounter Summary ---
Author Organization [facility] Address [address] [place] [address] Phone Care Team Providers Care Test Conductor Name Role Phone Zoila Gleason MD Primary Care Provider Rupal Isabel MD Unavailable [phone] Rekha Osborne MD Unavailable [phone] Mayuri Lyn RN Unavailable Michelle Colin EXPERIMENTAL MACHINIST Unavailable Encounter Details Date Type Department Care [...] on file Legal Sex Male 1:53 AM CHIEF MAINTENANCE SUPERVISOR Gender Identity Male 10/02/2023 12:44 PM [...] COVID: Recovered 11/29/2020 11/29/2020 03/29/2021 3:05 AM CHIEF MAINTENANCE SUPERVISOR COVID: Suspected 10/09/2021 10/09/2021 10/09/2021 9:37 AM CDT COVID: Suspected 03/06/2022 03/06/2022 03/06/2022 9:30 AM CHIEF MAINTENANCE SUPERVISOR RSV, droplet 03/06/2022 03/06/2022 03/13/2022 3:05 AM CHIEF MAINTENANCE SUPERVISOR COVID: Suspected 06/26/2022 06/26/2022 06/26/2022 5:59 PM CDT Coronavirus, droplet 06/26/2022 06/26/2022 023 3:06 AM CDT documented as of this encounter Care Teams Test Conductor Relationship Specialty Start Date End Date Zoila Gleason MD [address] [place] [address] PCP - General 09/29/16 Rupal Isabel MD [address] [place] [address] [address] [place] [address] Referring Physician Allergy and Immunology 01/11/19 Rekha Osborne MD [address] [place] [address] Medical Oncologist/Second Facing Baster Hematology 05/11/20 Mayuri Lyn, RN 4590 [facility] [address] [place] [address] SHOP Outpatient Ent Physician 12/04/20 01/04/21 Michelle Colin LCSW 4590 [facility] ([facility] Mailstop [phone] [place] [address] SHOP Outpatient Ent Physician 10/19/21 11/16/21 documented as of this encounter
--- OUTSIDE RECORDS SUMMARY | 2024-10-23 15:50 | XMS_ITS | Encounter Summary ---
Author Organization [facility] Address [address] [place] [address] Phone Care Team Providers Care Plant Hr Manager Name Role Phone Zoila Gleason MD Primary Care Provider Rupal Isabel MD Unavailable Rekha Osborne MD Unavailable [phone] Mayuri Lyn RN Unavailable [phone] Michelle Colin CHILDREN'S BOOK AUTHOR Unavailable [phone] Encounter Details Date Type Department Care Team [...] on file Legal Sex Male 1:53 AM SCRAP BURNER Gender Identity Male 10/02/2023 12:44 PM CDT [...] COVID: Recovered 11/29/2020 11/29/2020 03/29/2021 3:05 AM SCRAP BURNER COVID: Suspected 10/09/2021 10/09/2021 10/09/2021 9:37 AM CDT COVID: Suspected 03/06/2022 03/06/2022 03/06/2022 9:30 AM SCRAP BURNER RSV, droplet 03/06/2022 03/06/2022 03/13/2022 3:05 AM SCRAP BURNER COVID: Suspected 06/26/2022 06/26/2022 06/26/2022 5:59 PM CDT Coronavirus, droplet 06/26/2022 06/26/2022 023 3:06 AM CDT documented as of this encounter Care Teams Plant Hr Manager Relationship Specialty Start Date End Date Zoila Gleason MD [address] [place] [address] PCP - General 09/29/16 Rupal Isabel MD [address] [place] [address] [address] [place] [address] Referring Physician Allergy and Immunology 01/11/19 Rekha Osborne MD [address] [place] [address] Medical Oncologist/Distribution Operations Supervisor Hematology 05/11/20 Mayuri Lyn, RN 4590 [facility] [address] [place] [address] SHOP Outpatient Boilermaker 12/04/20 01/04/21 Michelle Colin LCSW 4590 [facility] ([facility] Mailstop [phone] [place] [address] SHOP Outpatient Boilermaker 10/19/21 11/16/21 documented as of this encounter
--- OUTSIDE RECORDS SUMMARY | 2024-10-23 15:50 | XMS_ITS | Encounter Summary ---
Author Organization [facility] Address [address] [place] [address] Phone Care Team Providers Care Upsetter Helper Name Role Phone Zoila Gleason MD Primary Care Provider Rupal Isabel MD Unavailable [phone] Rekha Osborne MD Unavailable [phone] Mayuri Lyn RN Unavailable Michelle Colin STOCK HANDLER Unavailable [phone] Encounter Details Date Type Department Care Team [...] on file Legal Sex Male 1:53 AM CIRCUITS ENGINEER Gender Identity Male 10/02/2023 12:44 PM [...] COVID: Suspected 04/21/2020 04/21/2020 04/21/2020 11:24 AM CIRCUITS ENGINEER Respiratory Infection (MICKEY), contact + droplet Comment:Automatically added due to negative COVID-19 result. 04/21/2020 04/21/2020 05/05/2020 3:0 6 AM CIRCUITS ENGINEER COVID: Suspected 04/21/2020 04/21/2020 04/21/2020 6:48 PM CIRCUITS ENGINEER COVID: Suspected 09/25/2020 09/25/2020 09/25/2020 10:11 AM CDT Rhino/Enterovirus 09/25/2020 09/25/2020 10/02/2020 3:05 AM CDT COVID: Recovered 11/29/2020 11/29/2020 03/29/2021 3:05 AM CIRCUITS ENGINEER COVID: Suspected 10/09/2021 10/09/2021 10/09/2021 9:37 AM CDT COVID: Suspected 03/06/2022 03/06/2022 03/06/2022 9:30 AM CIRCUITS ENGINEER RSV, droplet 03/06/2022 03/06/2022 03/13/2022 3:05 AM CIRCUITS ENGINEER COVID: Suspected 06/26/2022 06/26/2022 06/26/2022 5:59 PM CDT Coronavirus, droplet 06/26/2022 06/26/2022 023 3:06 AM CDT documented as of this encounter Care Teams Upsetter Helper Relationship Specialty Start Date End Date Zoila Gleason MD [address] [place] [address] PCP - General 09/29/16 Rupal Isabel MD [address] [place] [address] [address] Referring Physician Allergy and Immunology 01/11/19 Rekha Osborne MD [address] [place] [address] Medical Oncologist/Music Internship Hematology 05/11/20 Mayuri Lyn, RN 4590 [facility] [address] [place] [address] SHOP Outpatient Store Warehouse Associate 12/04/20 01/04/21 Michelle Colin [facility] 4390 [facility] ([facility] Mailstop [phone] [place] [address] SHOP Outpatient Store Warehouse Associate 10/19/21 11/16/21 documented as of this encounter
--- OUTSIDE RECORDS SUMMARY | 2024-10-23 15:50 | XMS_ITS | Encounter Summary ---
Author Organization [facility] Address [address] [place] [address] Phone Care Team Providers Care Metal Die Finisher Name Role Phone Zoila Gleason MD Primary Care Provider Rupal Isabel MD Unavailable [phone] Rekha Osborne MD Unavailable [phone] Mayuri Lyn RN Unavailable [phone] Michelle Colin NEONATOLOGIST Unavailable Encounter Details Date Type Department Care [...] on file Legal Sex Male 1:53 AM CHIROPRACTOR SOLE PRACTITIONER Gender Identity Male 10/02/2023 12:44 PM CDT [...] COVID: Suspected 04/21/2020 04/21/2020 04/21/2020 11:24 AM CHIROPRACTOR SOLE PRACTITIONER Respiratory Infection (MICKEY), contact + droplet Comment:Automatically added due to negative COVID-19 result. 04/21/2020 04/21/2020 05/05/2020 3:0 6 AM CHIROPRACTOR SOLE PRACTITIONER COVID: Suspected 04/21/2020 04/21/2020 04/21/2020 6:48 PM CHIROPRACTOR SOLE PRACTITIONER COVID: Suspected 09/25/2020 09/25/2020 09/25/2020 10:11 AM CDT Rhino/Enterovirus 09/25/2020 09/25/2020 10/02/2020 3:05 AM CDT COVID: Recovered 11/29/2020 11/29/2020 03/29/2021 3:05 AM CHIROPRACTOR SOLE PRACTITIONER COVID: Suspected 10/09/2021 10/09/2021 10/09/2021 9:37 AM CDT COVID: Suspected 03/06/2022 03/06/2022 03/06/2022 9:30 AM CHIROPRACTOR SOLE PRACTITIONER RSV, droplet 03/06/2022 03/06/2022 03/13/2022 3:05 AM CHIROPRACTOR SOLE PRACTITIONER COVID: Suspected 06/26/2022 06/26/2022 06/26/2022 5:59 PM CDT Coronavirus, droplet 06/26/2022 06/26/2022 023 3:06 AM CDT documented as of this encounter Care Teams Metal Die Finisher Relationship Specialty Start Date End Date Zoila Gleason MD [address] [place] [address] PCP - General 09/29/16 Rupal Isabel MD [address] [place] [address] [address] Referring Physician Allergy and Immunology 01/11/19 Rekha Osborne MD [address] [place] [address] Medical Oncologist/Travel Guide Hematology 05/11/20 Mayuri Lyn, RN 4590 [facility] [address] [place] [address] SHOP Outpatient Check Out Clerk 12/04/20 01/04/21 Michelle Colin [facility] 3390 [facility] ([facility] Mailstop [phone] [place] [address] SHOP Outpatient Check Out Clerk 10/19/21 11/16/21 documented as of this encounter
--- OUTSIDE RECORDS SUMMARY | 2024-10-23 15:50 | XMS_ITS | Clinical Summary ---
Author Organization [facility] Address [address] [place] [address] Care Team Providers Care Medical Scientist Name Role Phone Unavailable Primary Care Provider Unavailabl e Source Comments [facility],non-owned Affiliates and Associated Physician Practices is amultiple site organization consisting of ambulatory clinics and hospital sitesin [place], [place], [place] and [place]. This disclosure is being madepursuant to the Care Everywhere program and may not contain all information available regarding this patient. Last updated 17.[facility] InspireMD Social History Tobacco Use Types Packs/Day Years [...] Office Visit [facility] - Dermatology [address] [place] [address], [facility] [place] [address] Ele Parada MD [address] [place] [address] [address] [place] [id number] Health Maintenance Due Date Last Done Comments [...] patient's age to complete this topic Insurance [facility] MEDICA[place]
--- OUTSIDE RECORDS SUMMARY | 2024-10-23 15:50 | XMS_ITS | Encounter Summary ---
Author Organization [facility] Address [address] [place] [address] Phone Care Team Providers Care 911 Telecommunicator Name Role Phone Zoila Gleason MD Primary Care Provider Rupal Isabel MD Unavailable [phone] Rekha Osborne MD Unavailable [phone] Mayuri Lyn RN Unavailable Michelle Colin CUSTOMER SUPPORT ANALYST Unavailable Encounter Details Date Type Department [...] than three times a week 12/10/2020 Attends [employer] Not on file 12/10 Active Member [...] slept in a residential (including now)? No 12/10/2020 Sex and Gender Information Value Date Recorded Sex Assigned at Not on file Legal Sex Male 1:53 AM LEARNING AND DEVELOPMENT ANALYST Gender Identity Male 10/02/2023 12:44 PM [...] COVID: Recovered 11/29/2020 11/29/2020 03/29/2021 3:05 AM LEARNING AND DEVELOPMENT ANALYST COVID: Suspected 10/09/2021 10/09/2021 10/09/2021 9:37 AM CDT COVID: Suspected 03/06/2022 03/06/2022 03/06/2022 9:30 AM LEARNING AND DEVELOPMENT ANALYST RSV, droplet 03/06/2022 03/06/2022 03/13/2022 3:05 AM LEARNING AND DEVELOPMENT ANALYST COVID: Suspected 06/26/2022 06/26/2022 06/26/2022 5:59 PM CDT Coronavirus, droplet 06/26/2022 06/26/2022 023 3:06 AM CDT documented as of this encounter Care Teams 911 Telecommunicator Relationship Specialty Start Date End Date Zoila Gleason MD [address] [place] [address] PCP - General 09/29/16 Rupal Isabel MD 10 [facility] [address] [place] [address] Referring Physician Allergy and Immunology 01/11/19 Rekha Osborne MD [address] [place] [address] Medical Oncologist/Firefighter Marine Hematology 05/11/20 Mayuri Lyn, RN 4590 [facility] [address] [place] [address] SHOP Outpatient Mobile Nurse 12/04/20 01/04/21 Michelle Colin LCSW 4590 [facility] ([facility] Mailstop [phone] [place] [address] SHOP Outpatient Mobile Nurse 10/19/21 11/16/21 documented as of this encounter
--- OUTSIDE RECORDS SUMMARY | 2024-10-23 15:50 | XMS_ITS | Encounter Summary ---
Author Organization [facility] Address [address] [place] [address] Phone Care Team Providers Care Management And Budget Analyst Name Role Phone Zoila Gleason MD Primary Care Provider Rupal Isabel MD Unavailable [phone] Rekha Osborne MD Unavailable [phone] Mayuri Lyn RN Unavailable Michelle Colin [facility] Unavailable [phone] Encounter Details Date Type Department Care Team [...] place to sleep or slept in a long-term (including now)? No 12/10/2020 Sex and Gender Information Value Date Recorded Sex Assigned at Not on file Legal Sex Male 1:53 AM FERMENTING CELLARS RECEIVER Gender Identity Male 10/02/2023 12:44 PM CDT [...] COVID: Recovered 11/29/2020 11/29/2020 03/29/2021 3:05 AM FERMENTING CELLARS RECEIVER COVID: Suspected 10/09/2021 10/09/2021 10/09/2021 9:37 AM CDT COVID: Suspected 03/06/2022 03/06/2022 03/06/2022 9:30 AM FERMENTING CELLARS RECEIVER RSV, droplet 03/06/2022 03/06/2022 03/13/2022 3:05 AM FERMENTING CELLARS RECEIVER COVID: Suspected 06/26/2022 06/26/2022 06/26/2022 5:59 PM CDT Coronavirus, droplet 06/26/2022 06/26/2022 023 3:06 AM CDT documented as of this encounter Care Teams Management And Budget Analyst Relationship Specialty Start Date End Date Zoila Gleason MD [address] [place] [address] PCP - General 09/29/16 Rupal Isabel MD 10 [facility] [address] [place] [address] Referring Physician Allergy and Immunology 01/11/19 Rekha Osborne MD [address] [place] [address] Medical Oncologist/Vocational Aide Hematology 05/11/20 Mayuri Lyn, RN 4590 [facility] [address] [place] [address] SHOP Outpatient Want Ad Receiver 12/04/20 01/04/21 Michelle Colin LCSW 4590 [facility] Mailstop [phone] [place] [address] SHOP Outpatient Want Ad Receiver 10/19/21 11/16/21 documented as of this encounter
--- OUTSIDE RECORDS SUMMARY | 2024-10-23 15:50 | XMS_ITS | Encounter Summary ---
Author Organization [facility] Address [address] [place] [address] Phone Care Team Providers Care Postal Service Window Clerk Name Role Phone Zoila Gleason MD Primary Care Provider Rupal Isabel MD Unavailable Rekha Osborne MD Unavailable [phone] Mayuri Lyn RN Unavailable [phone] Michelle Colin ASSEMBLER FOR PULLER OVER HAND Unavailable Encounter Details Date Type Department Care [...] file Legal Sex Male 1:53 AM PHARMACEUTICAL COMPOUNDING SUPERVISOR Gender Identity Male 10/02/2023 12:44 PM [...] COVID: Recovered 11/29/2020 11/29/2020 03/29/2021 3:05 AM PHARMACEUTICAL COMPOUNDING SUPERVISOR COVID: Suspected 10/09/2021 10/09/2021 10/09/2021 9:37 AM CDT COVID: Suspected 03/06/2022 03/06/2022 03/06/2022 9:30 AM PHARMACEUTICAL COMPOUNDING SUPERVISOR RSV, droplet 03/06/2022 03/06/2022 03/13/2022 3:05 AM PHARMACEUTICAL COMPOUNDING SUPERVISOR COVID: Suspected 06/26/2022 06/26/2022 06/26/2022 5:59 PM CDT Coronavirus, droplet 06/26/2022 06/26/2022 023 3:06 AM CDT documented as of this encounter Care Teams Postal Service Window Clerk Relationship Specialty Start Date End Date Zoila Gleason MD [address] [place] [address] PCP - General 09/29/16 Rupal Isabel MD [address] [place] [address] [address] [place] [address] Referring Physician Allergy and Immunology 01/11/19 Rekha Osborne MD [address] [place] [address] Medical Oncologist/Drop Machine Operator Hematology 05/11/20 Mayuri Lyn, RN 4590 [facility] [address] [place] [address] SHOP Outpatient Loom Fixer Helper 12/04/20 01/04/21 Michelle Colin LCSW 4590 [facility] ([facility] Mailstop [phone] [place] [address] SHOP Outpatient Loom Fixer Helper 10/19/21 11/16/21 documented as of this encounter
--- OUTSIDE RECORDS SUMMARY | 2024-10-23 15:50 | XMS_ITS | Encounter Summary ---
Author Organization [facility] Address [address] [place] [address] Phone Care Team Providers Care Physical Medicine Teacher Name Role Phone Zoila Gleason MD Primary Care Provider Rupal Isabel MD Unavailable [phone] Rekha Osborne MD Unavailable [phone] Mayuri Lyn RN Unavailable [phone] Michelle Colin VP MARKETING SERVICES AND SKIN Unavailable Encounter Details Date Type Department Care [...] on file Legal Sex Male 1:53 AM FOREIGN AGENT Gender Identity Male 10/02/2023 12:44 PM [...] COVID: Recovered 11/29/2020 11/29/2020 03/29/2021 3:05 AM FOREIGN AGENT COVID: Suspected 10/09/2021 10/09/2021 10/09/2021 9:37 AM CDT COVID: Suspected 03/06/2022 03/06/2022 03/06/2022 9:30 AM FOREIGN AGENT RSV, droplet 03/06/2022 03/06/2022 03/13/2022 3:05 AM FOREIGN AGENT COVID: Suspected 06/26/2022 06/26/2022 06/26/2022 5:59 PM CDT Coronavirus, droplet 06/26/2022 06/26/2022 023 3:06 AM CDT documented as of this encounter Care Teams Physical Medicine Teacher Relationship Specialty Start Date End Date Zoila Gleason MD [address] [place], [place] [address] PCP - General 09/29/16 Rupal Isabel MD 10 [facility] [address] [place], [place] [id number] Referring Physician Allergy and Immunology 01/11/19 Rekha Osborne MD [address] [place], [place] [id number] Medical Oncologist/Soda Fountain Manager Hematology 05/11/20 Mayuri Lyn, RN 4590 [facility] [address] [place] [address] SHOP Outpatient Director Council On Aging 12/04/20 01/04/21 Michelle Colin, ROSALIE 4590 [facility] ([facility] Mailstop [phone] [place] [address] SHOP Outpatient Director Council On Aging 10/19/21 11/16/21 documented as of this encounter
--- OUTSIDE RECORDS SUMMARY | 2024-10-23 15:50 | XMS_ITS | Encounter Summary ---
Author Organization [facility] Address [address] [place] [address] Phone Care Team Providers Care Diesel Powerplant Supervisor Name Role Phone Zoila Gleason MD Primary Care Provider Rupal Isabel MD Unavailable [phone] Rekha Osborne MD Unavailable [phone] Mayuri Lyn RN Unavailable Michelle Colin PULMONARY NURSE PRACTITIONER Unavailable Encounter Details Date Type Department Care [...] on file Legal Sex Male 1:53 AM HIDE AND SKIN PROCESSING WORKER Gender Identity Male 10/02/2023 12:44 PM [...] COVID: Recovered 11/29/2020 11/29/2020 03/29/2021 3:05 AM HIDE AND SKIN PROCESSING WORKER COVID: Suspected 10/09/2021 10/09/2021 10/09/2021 9:37 AM CDT COVID: Suspected 03/06/2022 03/06/2022 03/06/2022 9:30 AM HIDE AND SKIN PROCESSING WORKER RSV, droplet 03/06/2022 03/06/2022 03/13/2022 3:05 AM HIDE AND SKIN PROCESSING WORKER COVID: Suspected 06/26/2022 06/26/2022 06/26/2022 5:59 PM CDT Coronavirus, droplet 06/26/2022 06/26/2022 023 3:06 AM CDT documented as of this encounter Care Teams Diesel Powerplant Supervisor Relationship Specialty Start Date End Date Zoila Gleason MD [address] [place] [address] PCP - General 09/29/16 Rupal Isabel MD [address] [place] [address] [facility] [address] [place] [address] Referring Physician Allergy and Immunology 01/11/19 Rekha Osborne MD [address] [place] [address] Medical Oncologist/Agricultural And Forestry Supervisor Hematology 05/11/20 Mayuri Lyn, RN 4590 [facility] [address] [place] [address] SHOP Outpatient Nursing Manager 12/04/20 01/04/21 Michelle Colin LCSW 4590 [facility] ([facility] Mailstop [phone] [place] [address] SHOP Outpatient Nursing Manager 10/19/21 11/16/21 documented as of this encounter
--- OUTSIDE RECORDS SUMMARY | 2024-10-23 15:50 | XMS_ITS | Encounter Summary ---
Author Organization [facility] Address [address] [place] [address] Phone Care Team Providers Care Certified Fraud Examiner Name Role Phone Zoila Gleason MD Primary Care Provider Rupal Isabel MD Unavailable [phone] Rekha Osborne MD Unavailable [phone] Mayuri Lyn RN Unavailable Michelle Colin RACE RELATIONS ADVISER Unavailable Encounter Details Date Type Department Care [...] on file Legal Sex Male 1:53 AM APPRENTICE ELECTRICIAN Gender Identity Male 10/02/2023 12:44 PM CDT [...] COVID: Suspected 04/21/2020 04/21/2020 04/21/2020 11:24 AM APPRENTICE ELECTRICIAN Respiratory Infection (MICKEY), contact + droplet Comment:Automatically added due to negative COVID-19 result. 04/21/2020 04/21/2020 05/05/2020 3:0 6 AM APPRENTICE ELECTRICIAN COVID: Suspected 04/21/2020 04/21/2020 04/21/2020 6:48 PM APPRENTICE ELECTRICIAN COVID: Suspected 09/25/2020 09/25/2020 09/25/2020 10:11 AM CDT Rhino/Enterovirus 09/25/2020 09/25/2020 10/02/2020 3:05 AM CDT COVID: Recovered 11/29/2020 11/29/2020 03/29/2021 3:05 AM APPRENTICE ELECTRICIAN COVID: Suspected 10/09/2021 10/09/2021 10/09/2021 9:37 AM CDT COVID: Suspected 03/06/2022 03/06/2022 03/06/2022 9:30 AM APPRENTICE ELECTRICIAN RSV, droplet 03/06/2022 03/06/2022 03/13/2022 3:05 AM APPRENTICE ELECTRICIAN COVID: Suspected 06/26/2022 06/26/2022 06/26/2022 5:59 PM CDT Coronavirus, droplet 06/26/2022 06/26/2022 023 3:06 AM CDT documented as of this encounter Care Teams Certified Fraud Examiner Relationship Specialty Start Date End Date Zoila Gleason MD [address] [place] [address] PCP - General 09/29/16 Rupal Isabel MD 10 [facility] [address] [address] Referring Physician Allergy and Immunology 01/11/19 Rekha Osborne MD [address] [place] [address] Medical Oncologist/Bulk Tank Driver Hematology 05/11/20 Mayuri Lyn, RN 4590 [facility] [address] [place] [address] SHOP Outpatient Catalytic Converter Operator 12/04/20 01/04/21 Michelle Colin LCSW 4879 [facility] ([facility]) Mailstop [phone] [place] [address] SHOP Outpatient Catalytic Converter Operator 10/19/21 11/16/21 documented as of this encounter
--- OUTSIDE RECORDS SUMMARY | 2024-10-23 15:50 | XMS_ITS | Encounter Summary ---
Author Organization [facility] Address [address] [place] [address] Phone Care Team Providers Care Director Of Radiology Name Role Phone Zoila Gleason MD Primary Care Provider Rupal Isabel MD Unavailable [phone] Rekha Osborne MD Unavailable [phone] Michelle Colin [facility] Unavailable [phone] Encounter Details Date Type Department Care Team [...] than three times a week 12/10/2020 Attends [employer] Services Not on file 12/10 Active Member [...] on file Legal Sex Male 1:53 AM MAGAZINE KEEPER Gender Identity Male 10/02/2023 12:44 PM CDT [...] COVID: Suspected 03/06/2022 03/06/2022 03/06/2022 9:30 AM MAGAZINE KEEPER RSV, droplet 03/06/2022 03/06/2022 03/13/2022 3:05 AM MAGAZINE KEEPER COVID: Suspected 06/26/2022 06/26/2022 06/26/2022 5:59 PM CDT Coronavirus, droplet 06/26/2022 06/26/2022 023 3:06 AM CDT documented as of this encounter Care Teams Director Of Radiology Relationship Specialty Start Date End Date Zoila Gleason MD [address] [place] [address] PCP - General 09/29/16 Rupal Isabel MD 10 [facility] [address] [place] [address] Referring Physician Allergy and Immunology 01/11/19 Rekha Osborne MD [address] [place], [place] [address] Medical Oncologist/Curtain Drier Hematology 05/11/20 Michelle Colin LCSW 4590 [facility] ([facility]) Mailstop [phone] [place] [address] SHOP Outpatient Construction Director 10/19/21 11/16/21 documented as of this encounter
--- OUTSIDE RECORDS SUMMARY | 2024-10-23 15:50 | XMS_ITS | Encounter Summary ---
Author Organization [facility] Address [address] [place] [address] Phone Care Team Providers Care Wedding Transportation Driver Name Role Phone Zoila Gleason MD Primary Care Provider Rupal Isabel MD Unavailable Rekha Osborne MD Unavailable [phone] Mayuri Lyn RN Unavailable Michelle Colin RN DOCUMENTATION Unavailable [phone] Encounter Details Date Type Department Care Team [...] on file Legal Sex Male 1:53 AM TECHNOLOGY EDUCATION TEACHER Gender Identity Male 10/02/2023 12:44 PM [...] COVID: Suspected 04/21/2020 04/21/2020 04/21/2020 11:24 AM TECHNOLOGY EDUCATION TEACHER Respiratory Infection (MICKEY), contact + droplet Comment:Automatically added due to negative COVID-19 result. 04/21/2020 04/21/2020 05/05/2020 3:0 6 AM TECHNOLOGY EDUCATION TEACHER COVID: Suspected 04/21/2020 04/21/2020 04/21/2020 6:48 PM TECHNOLOGY EDUCATION TEACHER COVID: Suspected 09/25/2020 09/25/2020 09/25/2020 10:11 AM CDT Rhino/Enterovirus 09/25/2020 09/25/2020 10/02/2020 3:05 AM CDT COVID: Recovered 11/29/2020 11/29/2020 03/29/2021 3:05 AM TECHNOLOGY EDUCATION TEACHER COVID: Suspected 10/09/2021 10/09/2021 10/09/2021 9:37 AM CDT COVID: Suspected 03/06/2022 03/06/2022 03/06/2022 9:30 AM TECHNOLOGY EDUCATION TEACHER RSV, droplet 03/06/2022 03/06/2022 03/13/2022 3:05 AM TECHNOLOGY EDUCATION TEACHER COVID: Suspected 06/26/2022 06/26/2022 06/26/2022 5:59 PM CDT Coronavirus, droplet 06/26/2022 06/26/2022 023 3:06 AM CDT documented as of this encounter Care Teams Wedding Transportation Driver Relationship Specialty Start Date End Date Zoila Gleason MD [address] [address] PCP - General 09/29/16 Rupal Isabel MD [address] [place] [address] [address] Referring Physician Allergy and Immunology 01/11/19 Rekha Osborne MD [address] [place] [address] Medical Oncologist/Crane Operator Hematology 05/11/20 Mayuri Lyn, RN 4590 [facility] [address] [place] [address] SHOP Outpatient Traffic Control Technician 12/04/20 01/04/21 Michelle Colin [facility] 8990 [facility] ([facility]) Mailstop [phone] [place] [address] SHOP Outpatient Traffic Control Technician 10/19/21 11/16/21 documented as of this encounter
--- OUTSIDE RECORDS SUMMARY | 2024-10-23 15:50 | XMS_ITS | Encounter Summary ---
Author Organization [facility] Address [address] [place] [address] Phone Care Team Providers Care Business Risk Consultant Name Role Phone Zoila Gleason MD Primary Care Provider Rupal Isabel MD Unavailable Rekha Osborne MD Unavailable Mayuri Lyn RN Unavailable Michelle Colin MARKETING COORDINATOR Unavailable Encounter Details Date Type Department Care [...] on file Legal Sex Male 1:53 AM AUTOMATIC ENGRAVER Gender Identity Male 10/02/2023 12:44 PM [...] COVID: Recovered 11/29/2020 11/29/2020 03/29/2021 3:05 AM AUTOMATIC ENGRAVER COVID: Suspected 10/09/2021 10/09/2021 10/09/2021 9:37 AM CDT COVID: Suspected 03/06/2022 03/06/2022 03/06/2022 9:30 AM AUTOMATIC ENGRAVER RSV, droplet 03/06/2022 03/06/2022 03/13/2022 3:05 AM AUTOMATIC ENGRAVER COVID: Suspected 06/26/2022 06/26/2022 06/26/2022 5:59 PM CDT Coronavirus, droplet 06/26/2022 06/26/2022 023 3:06 AM CDT documented as of this encounter Care Teams Business Risk Consultant Relationship Specialty Start Date End Date Zoila Gleason MD [address] [place] [address] PCP - General 09/29/16 Rupal Isabel MD [address] [place] [address] [address] [place] [address] Referring Physician Allergy and Immunology 01/11/19 Rekha Osborne MD [address] [place] [address] Medical Oncologist/Floor Layer Hematology 05/11/20 Mayuri Lyn, RN 4590 [facility] [address] [place] [address] SHOP Outpatient Crown Assembly Machine Set Up Mechanic 12/04/20 01/04/21 Michelle Colin LCSW 4590 [facility] ([facility]) Mailstop [phone] [place] [address] SHOP Outpatient Crown Assembly Machine Set Up Mechanic 10/19/21 11/16/21 documented as of this encounter
--- OUTSIDE RECORDS SUMMARY | 2024-10-23 15:50 | XMS_ITS | Encounter Summary ---
Author Organization [facility] Address [address] [place] [address] Care Team Providers Care Central Supply Supervisor Name Role Phone Zoila Gleason MD Primary Care Provider [phone] Rupal Isabel MD Unavailable Rekha Osborne MD Unavailable Mayuri Lyn RN Unavailable Michelle ColinW Unavailable Encounter Details Date Type Department Care Team (Late st Contact Info) Description 03/31/2020 Telephone [facility] [place] [address] Wendy Storm, RDMS Social History [...] file Legal Sex Male 1:53 AM SUPERVISOR ASSEMBLING Gender Identity Male 10/02/2023 12:44 PM CDT Sexual Orientation Don't know 11/15/2020 1: 06 PM CDT documented as of this encounter Plan of Treatment Not on file documented as of this encounter Visit Diagnoses Not on filedocumented in this encounter Additional Health Concerns Infection Onset Date Last Indicated Resolved Time COVID: Suspected 04/21/2020 04/21/2020 04/21/2020 11:24 AM SUPERVISOR ASSEMBLING Respiratory Infection (MICKEY), contact + droplet Comment:Automatically added due to negative COVID-19 result. 04/21/2020 04/21/2020 05/05/2020 3:0 6 AM SUPERVISOR ASSEMBLING COVID: Suspected 04/21/2020 04/21/2020 04/21/2020 6:48 PM SUPERVISOR ASSEMBLING COVID: Suspected 09/25/2020 09/25/2020 09/25/2020 10:11 AM CDT Rhino/Enterovirus 09/25/2020 09/25/2020 10/02/2020 3:05 AM CDT COVID: Recovered 11/29/2020 11/29/2020 03/29/2021 3:05 AM SUPERVISOR ASSEMBLING COVID: Suspected 10/09/2021 10/09/2021 10/09/2021 9:37 AM CDT COVID: Suspected 03/06/2022 03/06/2022 03/06/2022 9:30 AM SUPERVISOR ASSEMBLING RSV, droplet 03/06/2022 03/06/2022 03/13/2022 3:05 AM SUPERVISOR ASSEMBLING COVID: Suspected 06/26/2022 06/26/2022 06/26/2022 5:59 PM CDT Coronavirus, droplet 06/26/2022 06/26/2022 023 3:06 AM CDT documented as of this encounter Care Teams Central Supply Supervisor Relationship Specialty Start Date End Date Zoila Gleason MD [address] [place] [address] PCP - General 09/29/16 Rupal Isabel MD 10 [facility] [address] [place] [address] Referring Physician Allergy and Immunology 01/11/19 Rekha Osborne MD [address] [place] [address] Medical Oncologist/Executive Assistant To President Hematology 05/11/20 Mayuri Lyn, RN 4590 [facility] [address] [place] [address] SHOP Outpatient Developer Architect 12/04/20 01/04/21 Michelle Colin LCSW 4590 [facility] ([facility] Mailstop [phone] [place] [address] SHOP Outpatient Developer Architect 10/19/21 11/16/21 documented as of this encounter
--- OUTSIDE RECORDS SUMMARY | 2024-10-23 15:50 | XMS_ITS | Encounter Summary ---
Author Organization [facility] Address [address] [place] [address] Phone Care Team Providers Care Fence Erector Supervisor Name Role Phone Zoila Gleason MD Primary Care Provider Rupal Isabel MD Unavailable [phone] Rekha Osborne MD Unavailable [phone] Mayuri Lyn RN Unavailable [phone] Michelle Colin PLASTIC DUPLICATOR Unavailable Encounter Details Date Type Department Care [...] on file Legal Sex Male 1:53 AM AUTOMOTIVE MANAGER Gender Identity Male 10/02/2023 12:44 PM [...] COVID: Recovered 11/29/2020 11/29/2020 03/29/2021 3:05 AM AUTOMOTIVE MANAGER COVID: Suspected 10/09/2021 10/09/2021 10/09/2021 9:37 AM CDT COVID: Suspected 03/06/2022 03/06/2022 03/06/2022 9:30 AM AUTOMOTIVE MANAGER RSV, droplet 03/06/2022 03/06/2022 03/13/2022 3:05 AM AUTOMOTIVE MANAGER COVID: Suspected 06/26/2022 06/26/2022 06/26/2022 5:59 PM CDT Coronavirus, droplet 06/26/2022 06/26/2022 023 3:06 AM CDT documented as of this encounter Care Teams Fence Erector Supervisor Relationship Specialty Start Date End Date Zoila Gleason MD [address] [place] [address] PCP - General 09/29/16 Rupal Isabel MD [address] [place] [address] [address] [place] [address] Referring Physician Allergy and Immunology 01/11/19 Rekha Osborne MD [address] [place] [address] Medical Oncologist/Referral Agent Hematology 05/11/20 Mayuri Lyn, RN 4590 [facility] [address] [place] [address] SHOP Outpatient Manager Ent 12/04/20 01/04/21 Michelle Colin LCSW 4590 [facility] ([facility] Mailstop [phone] [place] [address] SHOP Outpatient Manager Ent 10/19/21 11/16/21 documented as of this encounter
--- OUTSIDE RECORDS SUMMARY | 2024-10-23 15:50 | XMS_ITS | Encounter Summary ---
Author Organization [facility] Address [address] [place] [address] Phone Care Team Providers Care Optical Technician Name Role Phone Zoila Gleason MD Primary Care Provider Rupal Isabel MD Unavailable [phone] Rekha Osborne MD Unavailable [phone] Mayuri Lyn RN Unavailable Michelle Colin FURNITURE MANAGER Unavailable Encounter Details Date Type Department [...] on file Legal Sex Male 1:53 AM PERCUSSION TEACHER Gender Identity Male 10/02/2023 12:44 PM [...] COVID: Recovered 11/29/2020 11/29/2020 03/29/2021 3:05 AM PERCUSSION TEACHER COVID: Suspected 10/09/2021 10/09/2021 10/09/2021 9:37 AM CDT COVID: Suspected 03/06/2022 03/06/2022 03/06/2022 9:30 AM PERCUSSION TEACHER RSV, droplet 03/06/2022 03/06/2022 03/13/2022 3:05 AM PERCUSSION TEACHER COVID: Suspected 06/26/2022 06/26/2022 06/26/2022 5:59 PM CDT Coronavirus, droplet 06/26/2022 06/26/2022 023 3:06 AM CDT documented as of this encounter Care Teams Optical Technician Relationship Specialty Start Date End Date Zoila Gleason MD [address] [place] [address] PCP - General 09/29/16 Rupal Isabel MD [address] [place] [address] [address] [place] [address] Referring Physician Allergy and Immunology 01/11/19 Rekha Osborne MD [address] [place] [address] Medical Oncologist/Profiling Machine Setup Operator Hematology 05/11/20 Mayuri Lyn, RN 4590 [facility] [address] [place] [address] SHOP Outpatient Supervisor Gelatin Plant 12/04/20 01/04/21 Michelle Colin LCSW 4590 [facility] ([facility]) Mailstop [phone] [place] [address] SHOP Outpatient Supervisor Gelatin Plant 10/19/21 11/16/21 documented as of this encounter
== END 2024-10-23 15:44 | disposition home or self-care (01) ==
PROVIDERS: PCP Pediatrics; Visit Provider Nurse Practitioner Family
DX: J06.9 Acute upper respiratory infection, unspecified (principal)
CPT/HCPCS: 71046

== ENCOUNTER 2024-11-04 15:05 | Outpatient (CLI) | payer BC, MEDICAID, SELFPAY ==
--- NOTE | ~2024-11-04 | CT_ITS ---
EXAMINATION: CT diagnostic chest wo con DATE: 11/04/2024 15:33 INDICATION: Acute cough TECHNIQUE: Computed tomography (CT) of the chest was performed without intravenous contrast. The dose -length product was 271.14 mGy-cm. Automated exposure control and iterative reconstruction technique were employed. COMPARISON: CT dated 08/31/2024 FINDINGS: There is centrilobular emphysema. Chronic groundglass opacities in a perihilar distribution with progression. Consider bronchiolitis.. No endobronchial lesions. No pneumothorax. No suspicious pulmonary nodules or masses. No significant pleural or pericardial eff usion. There is axillary, mediastinal lymph node enlargement which has progressed. No focal lytic or blastic lesions. Status post median sternotomy. Mild dextrocurvature of the thoracic spine. IMPRESSION: 1. Centrilobular groundglass opacities which have progressed with mild peribronchial thickening, susp icious for bronchiolitis. 2: Mediastinal and axillary lymphadenopathy which has progressed, most likely reactive, although othe r considerations such as lymphoma are not excluded. Reviewed, dictated and finalized at location A. IMPRESSION: 1. Centrilobular groundglass opacities which have progressed with mild peribron chial thickening, suspicious for bronchiolitis. 2: Mediastinal and axillary lymphadenopathy which has progressed, most likely r eactive, although other considerations such as lymphoma are not excluded.
== END 2024-11-04 15:06 | disposition home or self-care (01) ==
LOC: MICIMG 15:06
PROVIDERS: PCP Pediatrics; Visit Provider Pediatrics
DX: J84.9 Interstitial pulmonary disease, unspecified (principal); R05.1 Acute cough
CPT/HCPCS: 71250

== ENCOUNTER 2024-11-14 10:15 | Outpatient (CLI) | payer BC, MEDICAID, SELFPAY ==
--- OUTSIDE RECORDS SUMMARY | 2024-11-14 10:31 | XMS_ITS | Clinical Summary ---
Author Organization [facility] Address [address] [place] [address] Care Team Providers Care Unclaimed Property Officer Name Role Phone Unavailable Primary Care Provider [...] WEEKS. 24 Packet 1 03/02/2023 2:48 PM CUSTOMER SERVICE ADVOCATE 3 Active clindamycin phosphate (CLEOCIN T) 1 [...] procedure 4 Capsule 1 03/02/2023 2:45 PM CUSTOMER SERVICE ADVOCATE 3 Active docusate sodium (COLACE) 100 mg capsule Take one capsule (100 mg) orally twice a day 60 Capsule 3 03/14/2023 12:03 PM CUSTOMER SERVICE ADVOCATE 3 Active levothyroxine 112 mcg tablet Take one tablet (112 mcg) orally every morning 90 Tablet 2 03/14/2023 12:03 PM CUSTOMER SERVICE ADVOCATE 3 Active pantoprazole (PROTONIX) 40 mg Tablet, Delayed Release (E.C.) Take one tablet (40 mg) orally daily 60 Tablet 03/14/2023 12:03 PM CUSTOMER SERVICE ADVOCATE 3 Active sertraline (ZOLOFT) 100 mg tablet Take one tablet (50 mg) orally daily 90 Tablet 3 3 Active hydrocortisone sod succ, PF, (Solu-CORTEF Act-O-Vial, PF,) 100 mg/2 mL Recon Soln Inject 2 mL (100 mg) by intramuscular injection 1 time daily as needed for adrenal crisis. 10 Each 2 04/17/2023 6:40 PM CUSTOMER SERVICE ADVOCATE 4 Active apixaban (Eliquis) 5 mg tablet Take 1 Tablet (5 mg) by mouth 2 times daily. 30 Tablet 1 04/08/2023 4:00 PM CUSTOMER SERVICE ADVOCATE 4 Active nirmatrelvir-r itonavir (Paxlovid) 300(150mg x 2)-100 mg oral pack TAKE 2 TABLETS OF NIRMATRELVIR AND 1 TABLET OF RITONAVIR BY MOUTH TWICE DAILY FOR 5 DAYS 30 Each 4 Active predniSONE (DELTASONE) 1 mg tablet TAKE 1-4 TABLETS BY MOUTH DAILY DIRECTED BY PHYSICIAN. TAKE WITH 5 MG DAILY. 120 Tablet 2 04/25/2023 2:35 PM CUSTOMER SERVICE ADVOCATE 4 Active nirmatrelvir-r itonavir (Paxlovid) 300(150mg x [...] failure. 90 Tablet 2 04/25/2023 2:35 PM CUSTOMER SERVICE ADVOCATE 4 Active Immunizations Immunization Administration Dates Next [...]
--- OUTSIDE RECORDS SUMMARY | 2024-11-14 10:31 | XMS_ITS | Encounter Summary ---
Author Organization [facility] Address [address] [place] [address] Phone Care Team Providers Care Sweet Potato Disintegrator Name Role Phone Zoila Gleason MD Primary Care Provider [phone] Rupal Isabel MD Unavailable [phone] Rekha Osborne MD Unavailable [phone] Encounter Details Date Type Department Care Team (Latest Contact Info) Description 06/02/2022 Orders Only [facility] Scanning, Provider Social History Tobacco Use Types Packs/Day Years Used Date Smoking Tobacco: Never Smokeless Tobacco: Never Alcohol Use Standard Drinks/Week Comments Never 0 (1 standard drink = 0.6 oz pur e alcohol) Social Connection and Isolation Panel Answer Date Recorded In a typical week, how many times do you talk on the phone with family, friends, or neighbors? More than three times a week 10/11/2021 How often do you get togethe r with friends or relatives? More than three times a week 10/11/2021 How often do you attend chur ch or latter day services? Never 10/11/2021 Do you belong to any clubs o r organizations such as restorationist groups, unions, fraternal or athletic groups, or [...] a long term (including now)? No 10/11/2021 Sex and Gender Information Value Date Recorded Sex Assigned at Not on file Legal Sex Male 1:53 AM MERCHANDISING INTERN Gender Identity Male 10/02/2023 12:44 PM CDT [...] documented as of this encounter Care Teams Sweet Potato Disintegrator Relationship Specialty Start Date End Date Zoila Gleason MD [address] [place] [address] PCP - General 09/29/16 Rupal Isabel MD [address] [facility] [address] [place] [address] Referring Physician Allergy and Immunology 01/11/19 Rekha Osborne MD [address] [place] [address] Medical Oncologist/Patient Transition Specialist Hematology 05/11/20 documented as of this encounter
--- OUTSIDE RECORDS SUMMARY | 2024-11-14 10:32 | XMS_ITS | Encounter Summary ---
Author Organization [facility] Address [address] [place] [address] Phone Care Team Providers Care Stock Control Supervisor Name Role Phone Zoila Gleason MD Primary Care Provider Rupal Isabel MD Unavailable [phone] Rekha Osborne MD Unavailable [phone] Mayuri Lyn RN Unavailable [phone] Michelle Colin AIR CREW OFFICER Unavailable Encounter Details Date Type Department Care [...] on file Legal Sex Male 1:53 AM INTERNAL AUDIT SENIOR MANAGER Gender Identity Male 10/02/2023 12:44 PM [...] COVID: Suspected 04/21/2020 04/21/2020 04/21/2020 11:24 AM INTERNAL AUDIT SENIOR MANAGER Respiratory Infection (MICKEY), contact + droplet Comment:Automatically added due to negative COVID-19 result. 04/21/2020 04/21/2020 05/05/2020 3:0 6 AM INTERNAL AUDIT SENIOR MANAGER COVID: Suspected 04/21/2020 04/21/2020 04/21/2020 6:48 PM INTERNAL AUDIT SENIOR MANAGER COVID: Suspected 09/25/2020 09/25/2020 09/25/2020 10:11 AM CDT Rhino/Enterovirus 09/25/2020 09/25/2020 10/02/2020 3:05 AM CDT COVID: Recovered 11/29/2020 11/29/2020 03/29/2021 3:05 AM INTERNAL AUDIT SENIOR MANAGER COVID: Suspected 10/09/2021 10/09/2021 10/09/2021 9:37 AM CDT COVID: Suspected 03/06/2022 03/06/2022 03/06/2022 9:30 AM INTERNAL AUDIT SENIOR MANAGER RSV, droplet 03/06/2022 03/06/2022 03/13/2022 3:05 AM INTERNAL AUDIT SENIOR MANAGER COVID: Suspected 06/26/2022 06/26/2022 06/26/2022 5:59 PM CDT Coronavirus, droplet 06/26/2022 06/26/202207/03/ 023 3:06 AM CDT documented as of this encounter Care Teams Stock Control Supervisor Relationship Specialty Start Date End Date Zoila Gleason MD [address] [address] PCP - General 09/29/16 Rupal Isabel MD 10 [facility] [address] [place] [address] Referring Physician Allergy and Immunology 01/11/19 Rekha Osborne MD [address] [place] [address] Medical Oncologist/Webmethods Consultant Hematology 05/11/20 Mayuri Lyn, RN [address] [facility] [address] [place] [address] SHOP Outpatient Continuous Mining Machine Operator 12/04/20 01/04/21 Michelle Colin AIR CREW OFFICER 45[address] [facility] ([facility]) Mailstop [phone] [place] [address] SHOP Outpatient Continuous Mining Machine Operator 10/19/21 11/16/21 documented as of this encounter
--- OUTSIDE RECORDS SUMMARY | 2024-11-14 10:32 | XMS_ITS | Encounter Summary ---
Author Organization [facility] Address [address] [place] [address] Phone Care Team Providers Care Ela Teacher Name Role Phone Zoila Gleason MD Primary Care Provider Rupal Isabel MD Unavailable [phone] Rekha Osborne MD Unavailable [phone] Mayuri Lyn RN Unavailable Michelle Colin SEAFOOD MANAGER Unavailable Encounter Details Date Type Department [...] on file Legal Sex Male 1:53 AM MATHEMATICS DEPARTMENT CHAIR Gender Identity Male 10/02/2023 12:44 PM CDT [...] COVID: Recovered 11/29/2020 11/29/2020 03/29/2021 3:05 AM MATHEMATICS DEPARTMENT CHAIR COVID: Suspected 10/09/2021 10/09/2021 10/09/2021 9:37 AM CDT COVID: Suspected 03/06/2022 03/06/2022 03/06/2022 9:30 AM MATHEMATICS DEPARTMENT CHAIR RSV, droplet 03/06/2022 03/06/2022 03/13/2022 3:05 AM MATHEMATICS DEPARTMENT CHAIR COVID: Suspected 06/26/2022 06/26/2022 06/26/2022 5:59 PM CDT Coronavirus, droplet 06/26/2022 06/26/2022 023 3:06 AM CDT documented as of this encounter Care Teams Ela Teacher Relationship Specialty Start Date End Date Zoila Gleason MD [address] [place] [address] PCP - General 09/29/16 Rupal Isabel MD [address] [place] [address] [address] [place] [address] Referring Physician Allergy and Immunology 01/11/19 Rekha Osborne MD [address] [place] [address] Medical Oncologist/Poultry Field Service Technician Hematology 05/11/20 Mayuri Lyn, RN 45[address] [facility] [address] [place] [address] SHOP Outpatient Spent Grain Dryer 12/04/20 01/04/21 Michelle Colin LCSW 4590 [facility] ([facility]) Mailstop [phone] [place] [address] SHOP Outpatient Spent Grain Dryer 10/19/21 11/16/21 documented as of this encounter
--- OUTSIDE RECORDS SUMMARY | 2024-11-14 10:32 | XMS_ITS | Encounter Summary ---
Author Organization [facility] Address [address] [place] [address] Phone Care Team Providers Care Shower Enclosure Installer Name Role Phone Zoila Gleason MD Primary Care Provider Rupal Isabel MD Unavailable [phone] Rekha Osborne MD Unavailable [phone] Michelle Colin [facility] Unavailable [phone] Encounter Details Date Type Department Care Team [...] than three times a week 12/10/2020 Attends [employer] Services Not on file 12/10 Active Member [...] on file Legal Sex Male 1:53 AM AIR INTERCEPT CONTROLLER SUPERVISOR Gender Identity Male 10/02/2023 12:44 PM [...] COVID: Suspected 03/06/2022 03/06/2022 03/06/2022 9:30 AM AIR INTERCEPT CONTROLLER SUPERVISOR RSV, droplet 03/06/2022 03/06/2022 03/13/2022 3:05 AM AIR INTERCEPT CONTROLLER SUPERVISOR COVID: Suspected 06/26/2022 06/26/2022 06/26/2022 5:59 PM CDT Coronavirus, droplet 06/26/2022 06/26/2022 023 3:06 AM CDT documented as of this encounter Care Teams Shower Enclosure Installer Relationship Specialty Start Date End Date Zoila Gleason MD [address] [place] [address] PCP - General 09/29/16 Rupal Isabel MD [address] [facility] [address] [place] [address] Referring Physician Allergy and Immunology 01/11/19 Rekha Osborne MD [address] [place], [place] [id number] Medical Oncologist/Journeyman Carpenter Hematology 05/11/20 Michelle Colin LCSW 4590 [facility] ([facility]) Mailstop [phone] [place] [address] SHOP Outpatient Joint Cutter 10/19/21 11/16/21 documented as of this encounter
--- OUTSIDE RECORDS SUMMARY | 2024-11-14 10:32 | XMS_ITS | Encounter Summary ---
Author Organization [facility] Address [address] [place] [address] Phone Care Team Providers Care Supervisor Soldering Name Role Phone Zoila Gleason MD Primary Care Provider Rupal Isabel MD Unavailable [phone] Rekha Osborne MD Unavailable Mayuri Lyn RN Unavailable Michelle Colin HOUSING ASSISTANT PROPERTY MANAGER Unavailable Encounter Details Date Type [...] on file Legal Sex Male 1:53 AM GROUND CREW LINESMAN Gender Identity Male 10/02/2023 12:44 PM CDT [...] COVID: Suspected 04/21/2020 04/21/2020 04/21/2020 11:24 AM GROUND CREW LINESMAN Respiratory Infection (MICKEY), contact + droplet Comment:Automatically added due to negative COVID-19 result. 04/21/2020 04/21/2020 05/05/2020 3:0 6 AM GROUND CREW LINESMAN COVID: Suspected 04/21/2020 04/21/2020 04/21/2020 6:48 PM GROUND CREW LINESMAN COVID: Suspected 09/25/2020 09/25/2020 09/25/2020 10:11 AM CDT Rhino/Enterovirus 09/25/2020 09/25/2020 10/02/2020 3:05 AM CDT COVID: Recovered 11/29/2020 11/29/2020 03/29/2021 3:05 AM GROUND CREW LINESMAN COVID: Suspected 10/09/2021 10/09/2021 10/09/2021 9:37 AM CDT COVID: Suspected 03/06/2022 03/06/2022 03/06/2022 9:30 AM GROUND CREW LINESMAN RSV, droplet 03/06/2022 03/06/2022 03/13/2022 3:05 AM GROUND CREW LINESMAN COVID: Suspected 06/26/2022 06/26/2022 06/26/2022 5:59 PM CDT Coronavirus, droplet 06/26/2022 06/26/2022 023 3:06 AM CDT documented as of this encounter Care Teams Supervisor Soldering Relationship Specialty Start Date End Date Zoila Gleason MD [address] [place] [address] PCP - General 09/29/16 Rupal Isabel MD 10 [facility] [address] [place] [address] Referring Physician Allergy and Immunology 01/11/19 Rekha Osborne MD [address] [place] [address] Medical Oncologist/Chemistry Laboratory Technician Hematology 05/11/20 Mayuri Lyn, RN 45[address] [facility] [address] [place] [address] SHOP Outpatient Cable Tower Operator 12/04/20 01/04/21 Michelle Colin LCSW 4590 [facility] ([facility] Mailstop [phone] [place] [address] SHOP Outpatient Cable Tower Operator 10/19/21 11/16/21 documented as of this encounter
--- OUTSIDE RECORDS SUMMARY | 2024-11-14 10:32 | XMS_ITS | Clinical Summary ---
Author Organization [facility] Address [address] [place] [address] Care Team Providers Care Lugger Name Role Phone Zoila Gleason MD Primary Care Provider [phone] Rupal Isabel MD Unavailable [phone] Rekha Osborne MD Unavailable [phone] Allergies Active Allergy Reactions Criticality Noted Date [...] Never used. 07/07/19 21 Active OptiChamber Anju [facility] spacer USE WITH INHALER DIRECTED 09/25/19 21 [...] 1 tablet (112 mcg total) by mouth career specialist before breakfast 03/10/20 23 Active Solu-CORTEF Act-O-Vial, [...] skin daily 225 g 1 10/09/19 25 025 Active Active Problems Problem Noted Date Diagnosed [...] stooling. -As of 12/18/23 at 1300, per [place] [facility] [phone] - E. Coli. -Repeat blood cultures NGTD -Received cefepime; changed to cefuroxime to complete a 7 day course. Source is suspected to be UTI -TTE neg for vegetations Leukocytosis 12/17/2023 Assessment & Plan (12/17/2023 8:50 PM CDT): CBC at [place] 12/15 WBC 20.5 (81% neutrophils). Ddx includes [...] (12/01/2020): Added automatically from request for surgery [id number] Anemia 11/28/2020 Assessment & Plan (12/03/2020 11:37 AM CDT): Hgb 4.8 HEADWAITER/HEADWAITRESS and s/p 4U pRBCs total. Hgb now [...] Neutropenic fever 09/25/2020 Idiopathic thrombocytopenic purpura (ITP) ([facility]) 07/09/2020 Assessment & Plan (12/01/2020 2:02 [...] for thrombocytopenia to [facility] was in 2012 (17 yo) with petechiae [...] responded to steroid and rituximab last time ([id number]). During his last admission for UTI, he [...] bid - received stress dose steroids at [place] - continue pred 5 BID - per [...] an anti-21 hydroxylase antibody to rule out [place]'s as well as a low dose ACTH stim test at some point after 72 hours from last stress dose. He is very well appearing and does not have an indication for stress dosing at this time. - send anti-21 hydroxylase antibody (red top 2 ml) 2107 to [place] - consider ACTH stim test this admission [...] patient on 11/07. 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 He has also had [...] and platelets (101) are all stable from 86. IgG level drawn this AM was 1867.0, [...] by endocrinology at [facility]. Currently on 150 mcg levothyroxine daily. - [...] Avoid concomitant administration of Levothyroxine with patient's HEADWAITER/HEADWAITRESS iron. Separate dosing by at least 4 [...] Encounters Date Type Department Care Team Description 11/05/2024 12:47 PM CDT - 11/05/2024 11:59 PM CDT Hospital Encounter [facility] [address] [place] [address] Discharge Disposition: Discharge to home or self care 11/05/2024 Telephone [facility] Pulmonary [address] [facility] 8th [place] [address] [place] [id number] Mia Castillo, ZOFIA 10/03/2024 Telephone [facility] Endocrinology Metabolism and Lipid [address] [facility] Medical [address] [place] [id number] Ciarra Cox RN from Last 3 Months Immunizations Immunization [...] Influenza, Trivalent, Preser vative Free, Intramuscular 03/09/2016 MediSwipe (J&J) SARS-CoV-2 Vaccination 06/08/2020 MMR 10/01/2002,01/20/1999 Meningococcal [...] COVID-19 10/2019 Clotting disorder 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 Never 10/11/2021 Do you [...] in a nursing home (including now)? No 10/11/2021 Personal Safety Answer Date Recorded Have you ever been in or are you currently in a harmful physical or emotional relationship or is someone making you feel afraid or unsafe? Patient unable to answer 12/18/2023 Sex and Gender Information Value Date Recorded Sex Assigned at Not on file Legal Sex Male 1:53 AM MANAGER CRITICAL CARE Gender Identity Male 10/02/2023 12:44 PM CDT Sexual Orientation Don't know 11/15/2020 1: 06 PM CDT Obstetrics History Last Filed Vital Signs Vital Sign Reading Time Taken Comments Blood Pressure 117/79 05/13/2024 2:31 PM MANAGER CRITICAL CARE Pulse 90 05/13/2024 2:31 PM MANAGER CRITICAL CARE Temperature 36.9 C (98.5 F) 05/13/2024 2:31 PM MANAGER CRITICAL CARE Respiratory Rate 18 03/12/2024 2:48 PM MANAGER CRITICAL CARE Oxygen Saturation 96% 03/12/2024 2:48 PM MANAGER CRITICAL CARE Inhaled Oxygen Concentration - - Weight 60.8 kg (134 lb) 05/13/2024 2:31 PM MANAGER CRITICAL CARE Height 160 cm (5' 3) 05/13/2024 2:31 PM MANAGER CRITICAL CARE Body Mass Index 23.74 05/13/2024 2:31 PM MANAGER CRITICAL CARE Plan of Treatment Health Maintenance Due Date [...] Pneumococcal vaccine <65 (3 of 3 - PCV20 or PCV21) 01/06/2021 11/11/2020, 12/18/2012 Covid-19 Vaccine (4 - 2023-2 5 season) 2023 02/17/2021, 01/27/2021, 06/08/2020 Influenza Vaccine (#1) 2024 3, 02/03/2022, 01/27/2021, Additional history exists Hepatitis B Screening Completed 01/12/1999 , 03/17/1998, 1997 Hepatitis C Screening Completed 11/28/2020 Procedures Procedure Name Priority Date/Time Associated Diagnosis Comments CT BODY OUTSIDE REFERENCE Routine 11/05/2024 12:47 PM CDT HEPATITIS PANEL, ACUTE Routine 11/28/2020 5:33 PM CDT from Last 3 Months or Most Recently Relevant to Health Maintenance Results * CT Body Outside Reference (11/05/2024 12:47 PM CDT) Impressions [facility] - 11/05/2024 12:47 PM CDT These images are for Reference purposes only and have not been reviewed by [facility]iology. There will be no report generated by a [facility] Radiologist. Narrative [facility] - 11/05/2024 12:47 PM CDT EXAMINATION: Images For Reference Purposes Only us Jam Sands MD IMG CT PROCEDURES Fi nal Result Performing Organization Address City/[facility]/ZIP Co de Phone Number RAD[facility] * Hepatitis panel, acute (11/28/2020 5:33 PM CDT) Hep A IgM Nonreactive Nonreactive [facility] Comment: Interpretive Data: If Hep A IgM Ab is reported as Equivocal, a new sample should be drawn in two weeks for testing. Current interpretive data was last revised on 19. Hep B core IgM Nonreactive Nonreactive [facility] Comment: Interpretive Data If HepB Core IgM Ab is reported as Equivocal, a new sample should be drawn in two weeks for testing. Current interpretive data was last revised on 19. Hep C Ab Nonreactive Nonreactive [facility] Comment:Antibodies to HCV no t detected. Does NOT exclude the possibility of recent exposure to HCV. HepBsAg Nonreactive Nonreactive [facility] Blood 11/28/2020 5:33 PM CDT 11/28/2020 5:53 PM CDT us Jazzmine Mccartney PATIENT SERVICE COORDINATOR LAB MICROBIO LOGY - GENERAL ORDERABLES Edited Result - Final Performing Organization Address City/[facility]/ZIP Co de Phone Number [facility] Department [place] [address] from Last 3 Months or Most Recently Relevant to Health Maintenance [place] [facility] CHOICE PLUS [employer] OPEN ACCESS [place] BL [place] [facility] CHOICE PLUS [employer] OPEN ACCESS [place] P[place] [employer] OPEN ACCESS [employer] HMO/PPO Address: [email or web address] [address] [place] [address] [facility] CHOICE PLUS Advance Directives For more information, please contact: [phone] Documents on File Type Date Recorded Patient Case Liner Expl anation Power of Sales Promotion Director 10/21/2021 12:58 PM ADVANCE DIRECTIVE 10/14/2019 12:35 [...] 5:09 PM 01/02/2021 6:56 PM Care Teams Lugger Relationship Specialty Start Date End Date Zoila Gleason MD [address] [place] [address] PCP - General 09/29/16 Rupal Isabel MD 10 [facility] [address] [place] [address] Referring Physician Allergy and Immunology 01/11/19 Rekha Osborne MD [address] [place], [place] [id number] Medical Oncologist/Biofuels Product Manager Hematology 05/11/20
--- OUTSIDE RECORDS SUMMARY | 2024-11-14 10:32 | XMS_ITS | Encounter Summary ---
Author Organization [facility] Address [address] [place] [address] Phone Care Team Providers Care Rayon Tester Name Role Phone Zoila Gleason MD Primary Care Provider Rupal Isabel MD Unavailable [phone] Rekha Osborne MD Unavailable [phone] Mayuri Lyn RN Unavailable Michelle Colin SWEET POTATO DISINTEGRATOR Unavailable [phone] Encounter Details Date Type Department Care Team [...] on file Legal Sex Male 1:53 AM EVENT DESIGNER Gender Identity Male 10/02/2023 12:44 PM [...] COVID: Suspected 04/21/2020 04/21/2020 04/21/2020 11:24 AM EVENT DESIGNER Respiratory Infection (MICKEY), contact + droplet Comment:Automatically added due to negative COVID-19 result. 04/21/2020 04/21/2020 05/05/2020 3:0 6 AM EVENT DESIGNER COVID: Suspected 04/21/2020 04/21/2020 04/21/2020 6:48 PM EVENT DESIGNER COVID: Suspected 09/25/2020 09/25/2020 09/25/2020 10:11 AM CDT Rhino/Enterovirus 09/25/2020 09/25/2020 10/02/2020 3:05 AM CDT COVID: Recovered 11/29/2020 11/29/2020 03/29/2021 3:05 AM EVENT DESIGNER COVID: Suspected 10/09/2021 10/09/2021 10/09/2021 9:37 AM CDT COVID: Suspected 03/06/2022 03/06/2022 03/06/2022 9:30 AM EVENT DESIGNER RSV, droplet 03/06/2022 03/06/2022 03/13/2022 3:05 AM EVENT DESIGNER COVID: Suspected 06/26/2022 06/26/2022 06/26/2022 5:59 PM CDT Coronavirus, droplet 06/26/2022 06/26/2022 023 3:06 AM CDT documented as of this encounter Care Teams Rayon Tester Relationship Specialty Start Date End Date Zoila Gleason MD [address] [place] [address] PCP - General 09/29/16 Rupal Isabel MD [address] [place] [address] [address] Referring Physician Allergy and Immunology 01/11/19 Rekha Osborne MD [address] [place] [address] Medical Oncologist/Software Quality Assurance Analyst Hematology 05/11/20 Mayuri Lyn, RN 4590 [facility] 5[address] [place] [address] SHOP Outpatient Research Intern 12/04/20 01/04/21 Michelle Colin [facility] 90 [facility] ([facility]) Mailstop [phone] [place] [address] SHOP Outpatient Research Intern 10/19/21 11/16/21 documented as of this encounter
--- OUTSIDE RECORDS SUMMARY | 2024-11-14 10:32 | XMS_ITS | Encounter Summary ---
Author Organization [facility] Address [address] [place] [address] Phone Care Team Providers Care Warp Tying Machine Knotter Name Role Phone Zoila Gleason MD Primary Care Provider [phone] Rupal Isabel MD Unavailable [phone] Rekha Osborne MD Unavailable [phone] Mayuri Lyn RN Unavailable Michelle Colin WELL SERVICES OPERATOR Unavailable Encounter Details Date Type Department [...] on file Legal Sex Male 1:53 AM LAB INTERN Gender Identity Male 10/02/2023 12:44 PM [...] COVID: Suspected 04/21/2020 04/21/2020 04/21/2020 11:24 AM LAB INTERN Respiratory Infection (MICKEY), contact + droplet Comment:Automatically added due to negative COVID-19 result. 04/21/2020 04/21/2020 05/05/2020 3:0 6 AM LAB INTERN COVID: Suspected 04/21/2020 04/21/2020 04/21/2020 6:48 PM LAB INTERN COVID: Suspected 09/25/2020 09/25/2020 09/25/2020 10:11 AM CDT Rhino/Enterovirus 09/25/2020 09/25/2020 10/02/2020 3:05 AM CDT COVID: Recovered 11/29/2020 11/29/2020 03/29/2021 3:05 AM LAB INTERN COVID: Suspected 10/09/2021 10/09/2021 10/09/2021 9:37 AM CDT COVID: Suspected 03/06/2022 03/06/2022 03/06/2022 9:30 AM LAB INTERN RSV, droplet 03/06/2022 03/06/2022 03/13/2022 3:05 AM LAB INTERN COVID: Suspected 06/26/2022 06/26/2022 06/26/2022 5:59 PM CDT Coronavirus, droplet 06/26/2022 06/26/2022 023 3:06 AM CDT documented as of this encounter Care Teams Warp Tying Machine Knotter Relationship Specialty Start Date End Date Zoila Gleason MD [address] [place] [address] PCP - General 09/29/16 Rupal Isabel MD [address] [place] [address] [address] Referring Physician Allergy and Immunology 01/11/19 Rekha Osborne MD [address] [place] [address] Medical Oncologist/Product Development Engineer Hematology 05/11/20 Mayuri Lyn, RN 4590 [facility] 5[address] [place] [address] SHOP Outpatient Ui Lead Developer 12/04/20 01/04/21 Michelle Colin [facility] 1090 [facility] ([facility]) Mailstop [phone] [place] [address] SHOP Outpatient Ui Lead Developer 10/19/21 11/16/21 documented as of this encounter
--- OUTSIDE RECORDS SUMMARY | 2024-11-14 10:32 | XMS_ITS | Encounter Summary ---
Author Organization [facility] Address [address] [place] [address] Phone Care Team Providers Care Cut Order Hand Name Role Phone Zoila Gleason MD Primary Care Provider Rupal Isabel MD Unavailable [phone] Rekha Osborne MD Unavailable [phone] Mayuri Lyn RN Unavailable Michelle Colin PUBLIC SAFETY TEACHER Unavailable [phone] Encounter Details Date Type Department Care Team [...] file Legal Sex Male 1:53 AM SENIOR ENERGY MARKET COORDINATOR Gender Identity Male 10/02/2023 12:44 PM [...] Recovered 11/29/2020 11/29/2020 03/29/2021 3:05 AM SENIOR ENERGY MARKET COORDINATOR COVID: Suspected 10/09/2021 10/09/2021 10/09/2021 9:37 AM CDT COVID: Suspected 03/06/2022 03/06/2022 03/06/2022 9:30 AM SENIOR ENERGY MARKET COORDINATOR RSV, droplet 03/06/2022 03/06/2022 03/13/2022 3:05 AM SENIOR ENERGY MARKET COORDINATOR COVID: Suspected 06/26/2022 06/26/2022 06/26/2022 5:59 PM CDT Coronavirus, droplet 06/26/2022 06/26/2022 023 3:06 AM CDT documented as of this encounter Care Teams Cut Order Hand Relationship Specialty Start Date End Date Zoila Gleason MD [address] [place] [address] PCP - General 09/29/16 Rupal Isabel MD [address] [place] [address] [address] [place] [address] Referring Physician Allergy and Immunology 01/11/19 Rekha Osborne MD [address] [place] [address] Medical Oncologist/Patient Care Director Hematology 05/11/20 Mayuri Lyn, RN 4590 [facility] 5300 [place] [address] SHOP Outpatient Intelligence Manager 12/04/20 01/04/21 Michelle Colin LCSW 4590 [facility] ([facility] Mailstop [phone] [place] [address] SHOP Outpatient Intelligence Manager 10/19/21 11/16/21 documented as of this encounter
--- OUTSIDE RECORDS SUMMARY | 2024-11-14 10:32 | XMS_ITS | Encounter Summary ---
Author Organization [facility] Address [address] [place] [address] Phone Care Team Providers Care Store Shopper Name Role Phone Zoila Gleason MD Primary Care Provider Rupal Isabel MD Unavailable [phone] Rekha Osborne MD Unavailable [phone] Mayuri Lyn RN Unavailable Michelle Colin BRAND MARKETING COORDINATOR Unavailable Encounter Details Date Type [...] than three times a week 12/10/2020 Attends Congregation Services Not on file 12/10 Active Member [...] on file Legal Sex Male 1:53 AM MECHANICAL ENGINEERING TEACHER Gender Identity Male 10/02/2023 12:44 PM [...] COVID: Recovered 11/29/2020 11/29/2020 03/29/2021 3:05 AM MECHANICAL ENGINEERING TEACHER COVID: Suspected 10/09/2021 10/09/2021 10/09/2021 9:37 AM CDT COVID: Suspected 03/06/2022 03/06/2022 03/06/2022 9:30 AM MECHANICAL ENGINEERING TEACHER RSV, droplet 03/06/2022 03/06/2022 03/13/2022 3:05 AM MECHANICAL ENGINEERING TEACHER COVID: Suspected 06/26/2022 06/26/2022 06/26/2022 5:59 PM CDT Coronavirus, droplet 06/26/2022 06/26/2022 023 3:06 AM CDT documented as of this encounter Care Teams Store Shopper Relationship Specialty Start Date End Date Zoila Gleason MD [address] [place] [address] PCP - General 09/29/16 Rupal Isabel MD 10 [facility] [address] [place] [address] Referring Physician Allergy and Immunology 01/11/19 Rekha Osborne MD [address] [place] [address] Medical Oncologist/General Cargo Clerk Hematology 05/11/20 Mayuri Lyn, RN 4590 [facility] 5[address] [place] [address] SHOP Outpatient Waste Management Recycling Technician 12/04/20 01/04/21 Michelle Colin LCSW 4590 [facility] Mailstop [phone] [place] [address] SHOP Outpatient Waste Management Recycling Technician 10/19/21 11/16/21 documented as of this encounter
--- OUTSIDE RECORDS SUMMARY | 2024-11-14 10:32 | XMS_ITS | Encounter Summary ---
Author Organization [facility] School of [facility] Address [address] [place] [address] Phone Care Team Providers Care Spray Painter Name Role Phone Zoila Gleason MD Primary Care Provider Rupal Isabel MD Unavailable [phone] Rekha Osborne MD Unavailable [phone] Mayuri Lyn RN Unavailable [phone] Michelle Colin RESPIRATORY CARE INSTRUCTOR Unavailable Encounter Details Date Type Department Care [...] on file Legal Sex Male 1:53 AM GRADER MARKER Gender Identity Male 10/02/2023 12:44 PM [...] COVID: Suspected 04/21/2020 04/21/2020 04/21/2020 11:24 AM GRADER MARKER Respiratory Infection (MICKEY), contact + droplet Comment:Automatically added due to negative COVID-19 result. 04/21/2020 04/21/2020 05/05/2020 3:0 6 AM GRADER MARKER COVID: Suspected 04/21/2020 04/21/2020 04/21/2020 6:48 PM GRADER MARKER COVID: Suspected 09/25/2020 09/25/2020 09/25/2020 10:11 AM CDT Rhino/Enterovirus 09/25/2020 09/25/2020 10/02/2020 3:05 AM CDT COVID: Recovered 11/29/2020 11/29/2020 03/29/2021 3:05 AM GRADER MARKER COVID: Suspected 10/09/2021 10/09/2021 10/09/2021 9:37 AM CDT COVID: Suspected 03/06/2022 03/06/2022 03/06/2022 9:30 AM GRADER MARKER RSV, droplet 03/06/2022 03/06/2022 03/13/2022 3:05 AM GRADER MARKER COVID: Suspected 06/26/2022 06/26/2022 06/26/2022 5:59 PM CDT Coronavirus, droplet 06/26/2022 06/26/2022 023 3:06 AM CDT documented as of this encounter Care Teams Spray Painter Relationship Specialty Start Date End Date Zoila Gleason MD [address] [address] PCP - General 09/29/16 Rupal Isabel MD 10 [facility] [address] [address] Referring Physician Allergy and Immunology 01/11/19 Rekha Osborne MD [address] [place] [address] Medical Oncologist/Psychiatry Instructor Hematology 05/11/20 Mayuri Lyn, RN 4590 [facility] [address] [place] [address] Inspector 12/04/20 01/04/21 Michelle Colin LCSW 3582 [facility] ([facility]) Mailstop [phone] [place] [address] 10/19/21 11/16/21 documented as of this encounter
--- OUTSIDE RECORDS SUMMARY | 2024-11-14 10:32 | XMS_ITS | Encounter Summary ---
Author Organization [facility] School of [facility] Address [address] [place] [address] Phone Care Team Providers Care Spanish Literature Professor Name Role Phone Zoila Gleason MD Primary Care Provider Rupal Isabel MD Unavailable [phone] Rekha Osborne MD Unavailable [phone] Mayuri Lyn RN Unavailable [phone] Michelle Colin PRE K LEAD TEACHER Unavailable [phone] Encounter Details Date Type Department Care Team [...] on file Legal Sex Male 1:53 AM FORMING MACHINE TENDER Gender Identity Male 10/02/2023 12:44 [...] COVID: Recovered 11/29/2020 11/29/2020 03/29/2021 3:05 AM FORMING MACHINE TENDER COVID: Suspected 10/09/2021 10/09/2021 10/09/2021 9:37 AM CDT COVID: Suspected 03/06/2022 03/06/2022 03/06/2022 9:30 AM FORMING MACHINE TENDER RSV, droplet 03/06/2022 03/06/2022 03/13/2022 3:05 AM FORMING MACHINE TENDER COVID: Suspected 06/26/2022 06/26/2022 06/26/2022 5:59 PM CDT Coronavirus, droplet 06/26/2022 06/26/2022 023 3:06 AM CDT documented as of this encounter Care Teams Spanish Literature Professor Relationship Specialty Start Date End Date Zoila Gleason MD [address] [place] [address] PCP - General 09/29/16 Rupal Isabel MD [address] [place] [address] [address] [place] [address] Referring Physician Allergy and Immunology 01/11/19 Rekha Osborne MD [address] [place] [address] Medical Oncologist/Bulldozer Mechanic Hematology 05/11/20 Mayuri Lyn, RN 4590 [facility] 5[address] [place] [address] SHOP Outpatient Monkey Keeper 12/04/20 01/04/21 Michelle Colin LCSW 4590 [facility] ([facility]) Mailstop [phone] [place] [address] SHOP Outpatient Monkey Keeper 10/19/21 11/16/21 documented as of this encounter
--- OUTSIDE RECORDS SUMMARY | 2024-11-14 10:32 | XMS_ITS | Encounter Summary ---
Author Organization [facility] of [facility] Address [address] [place] [address] Phone Care Team Providers Care Blow Off Worker Name Role Phone Zoila Gleason MD Primary Care Provider Rupal Isabel MD Unavailable [phone] Rekha Osborne MD Unavailable [phone] Mayuri Lyn RN Unavailable [phone] Michelle Colin CHILDREN LIBRARIAN Unavailable Encounter Details Date Type Department Care [...] on file Legal Sex Male 1:53 AM USABILITY ENGINEER Gender Identity Male 10/02/2023 12:44 PM [...] COVID: Recovered 11/29/2020 11/29/2020 03/29/2021 3:05 AM USABILITY ENGINEER COVID: Suspected 10/09/2021 10/09/2021 10/09/2021 9:37 AM CDT COVID: Suspected 03/06/2022 03/06/2022 03/06/2022 9:30 AM USABILITY ENGINEER RSV, droplet 03/06/2022 03/06/2022 03/13/2022 3:05 AM USABILITY ENGINEER COVID: Suspected 06/26/2022 06/26/2022 06/26/2022 5:59 PM CDT Coronavirus, droplet 06/26/2022 06/26/2022 023 3:06 AM CDT documented as of this encounter Care Teams Blow Off Worker Relationship Specialty Start Date End Date Zoila Gleason MD [address] [place] [address] PCP - General 09/29/16 Rupal Isabel MD [address] [place] [address] [address] [place] [address] Referring Physician Allergy and Immunology 01/11/19 Rekha Osborne MD [address] [place] [address] Medical Oncologist/Service Consultant Hematology 05/11/20 Mayuri Lyn, RN 4590 [facility] 5[address] [place] [address] SHOP Outpatient Hospice Care Transitions Coordinator 12/04/20 01/04/21 Michelle Colin LCSW 4590 [facility] ([facility] Mailstop [phone] [place] [address] SHOP Outpatient Hospice Care Transitions Coordinator 10/19/21 11/16/21 documented as of this encounter
--- OUTSIDE RECORDS SUMMARY | 2024-11-14 10:32 | XMS_ITS | Encounter Summary ---
Author Organization [facility] Healthcare Address [address] [place] [address] Care Team Providers Care Cashiers Supervisor Name Role Phone Zoila Gleason MD Primary Care Provider Rupal Isabel MD Unavailable [phone] Rekha Osborne MD Unavailable [phone] Mayuri Lyn RN Unavailable [phone] Michelle Colin [facility] Unavailable [phone] Encounter Details Date Type Department Care Team (Late st Contact Info) Description 11/12/2020 Telephone [facility] [address] [place] [address] Aiyana Lovelace, ZOFIA Social History Tobacco [...] Legal Sex Male 1:53 AM CLINICAL RESEARCH COORDINATOR Gender Identity Male 10/02/2023 12:44 PM CDT Sexual Orientation Don't know 11/15/2020 1: 06 PM CDT documented as of this encounter Plan of Treatment Not on file documented as of this encounter Visit Diagnoses Not on filedocumented in this encounter Additional Health Concerns Infection Onset Date Last Indicated Resolved Time COVID: Recovered 11/29/2020 11/29/2020 03/29/2021 3:05 AM CLINICAL RESEARCH COORDINATOR COVID: Suspected 10/09/2021 10/09/2021 10/09/2021 9:37 AM CDT COVID: Suspected 03/06/2022 03/06/2022 03/06/2022 9:30 AM CLINICAL RESEARCH COORDINATOR RSV, droplet 03/06/2022 03/06/2022 03/13/2022 3:05 AM CLINICAL RESEARCH COORDINATOR COVID: Suspected 06/26/2022 06/26/2022 06/26/2022 5:59 PM CDT Coronavirus, droplet 06/26/2022 06/26/2022 023 3:06 AM CDT documented as of this encounter Care Teams Cashiers Supervisor Relationship Specialty Start Date End Date Zoila Gleason MD [address] [place] [address] PCP - General 09/29/16 Rupal Isabel MD 10 [facility] [address] [place] [address] Referring Physician Allergy and Immunology 01/11/19 Rekha Osborne MD [address] [place] [address] Medical Oncologist/Clothing Cutter Hematology 05/11/20 Mayuri Lyn, RN 4590 [facility] [address] [place] [address] SHOP Outpatient Journalism Professor 12/04/20 01/04/21 Michelle Colin LCSW 4590 [facility] ([facility] Mailstop [phone] [place] [address] SHOP Outpatient Journalism Professor 10/19/21 11/16/21 documented as of this encounter
--- OUTSIDE RECORDS SUMMARY | 2024-11-14 10:32 | XMS_ITS | Encounter Summary ---
Author Organization [facility] Address [address] [place] [address] Phone Care Team Providers Care Research Chemist Name Role Phone Zoila Gleason MD Primary Care Provider Rupal Isabel MD Unavailable [phone] Rekha Osborne MD Unavailable [phone] Mayuri Lyn RN Unavailable [phone] Michelle Colin DIALYSIS TECH Unavailable Encounter Details Date Type Department [...] file Legal Sex Male 1:53 AM DIRECTOR DANCE Gender Identity Male 10/02/2023 12:44 PM CDT [...] Suspected 04/21/2020 04/21/2020 04/21/2020 11:24 AM DIRECTOR DANCE Respiratory Infection (MICKEY), contact + droplet Comment:Automatically added due to negative COVID-19 result. 04/21/2020 04/21/2020 05/05/2020 3:0 6 AM DIRECTOR DANCE COVID: Suspected 04/21/2020 04/21/2020 04/21/2020 6:48 PM DIRECTOR DANCE COVID: Suspected 09/25/2020 09/25/2020 09/25/2020 10:11 AM CDT Rhino/Enterovirus 09/25/2020 09/25/2020 10/02/2020 3:05 AM CDT COVID: Recovered 11/29/2020 11/29/2020 03/29/2021 3:05 AM DIRECTOR DANCE COVID: Suspected 10/09/2021 10/09/2021 10/09/2021 9:37 AM CDT COVID: Suspected 03/06/2022 03/06/2022 03/06/2022 9:30 AM DIRECTOR DANCE RSV, droplet 03/06/2022 03/06/2022 03/13/2022 3:05 AM DIRECTOR DANCE COVID: Suspected 06/26/2022 06/26/2022 06/26/2022 5:59 PM CDT Coronavirus, droplet 06/26/2022 06/26/2022 023 3:06 AM CDT documented as of this encounter Care Teams Research Chemist Relationship Specialty Start Date End Date Zoila Gleason MD [address] [address] PCP - General 09/29/16 Rupal Isabel MD [address] [place] [address] [address] Referring Physician Allergy and Immunology 01/11/19 Rekha Osborne MD [address] [place] [address] Medical Oncologist/Physics Teacher Hematology 05/11/20 Mayuri Lyn, RN 4590 [facility] [address] [place] [address] SHOP Outpatient Wood Floor Refinisher 12/04/20 01/04/21 Michelle Colin [facility] 6790 [facility] ([facility]) Mailstop [phone] [place] [address] SHOP Outpatient Wood Floor Refinisher 10/19/21 11/16/21 documented as of this encounter
--- OUTSIDE RECORDS SUMMARY | 2024-11-14 10:32 | XMS_ITS | Encounter Summary ---
Author Organization [facility] Healthcare Address [address] [place] [address] Care Team Providers Care Environmental Communications Specialist Name Role Phone Zoila Gleason MD Primary Care Provider [phone] Rupal Isabel MD Unavailable [phone] Rekha Osborne MD Unavailable [phone] Mayuri Lyn RN Unavailable Michelle ColinW Unavailable Encounter Details Date Type Department Care Team (Late st Contact Info) Description 03/31/2020 Telephone [facility] [place] [address] Wendy Storm, RDMS Social History [...] on file Legal Sex Male 1:53 AM OUTPATIENT SERVICES DIRECTOR Gender Identity Male 10/02/2023 12:44 PM CDT Sexual Orientation Don't know 11/15/2020 1: 06 PM CDT documented as of this encounter Plan of Treatment Not on file documented as of this encounter Visit Diagnoses Not on filedocumented in this encounter Additional Health Concerns Infection Onset Date Last Indicated Resolved Time COVID: Suspected 04/21/2020 04/21/2020 04/21/2020 11:24 AM OUTPATIENT SERVICES DIRECTOR Respiratory Infection (MICKEY), contact + droplet Comment:Automatically added due to negative COVID-19 result. 04/21/2020 04/21/2020 05/05/2020 3:0 6 AM OUTPATIENT SERVICES DIRECTOR COVID: Suspected 04/21/2020 04/21/2020 04/21/2020 6:48 PM OUTPATIENT SERVICES DIRECTOR COVID: Suspected 09/25/2020 09/25/2020 09/25/2020 10:11 AM CDT Rhino/Enterovirus 09/25/2020 09/25/2020 10/02/2020 3:05 AM CDT COVID: Recovered 11/29/2020 11/29/2020 03/29/2021 3:05 AM OUTPATIENT SERVICES DIRECTOR COVID: Suspected 10/09/2021 10/09/2021 10/09/2021 9:37 AM CDT COVID: Suspected 03/06/2022 03/06/2022 03/06/2022 9:30 AM OUTPATIENT SERVICES DIRECTOR RSV, droplet 03/06/2022 03/06/2022 03/13/2022 3:05 AM OUTPATIENT SERVICES DIRECTOR COVID: Suspected 06/26/2022 06/26/2022 06/26/2022 5:59 PM CDT Coronavirus, droplet 06/26/2022 06/26/2022 023 3:06 AM CDT documented as of this encounter Care Teams Environmental Communications Specialist Relationship Specialty Start Date End Date Zoila Gleason MD [address] [place] [address] PCP - General 09/29/16 Rupal Isabel MD 10 [facility] 200 [place] [address] Referring Physician Allergy and Immunology 01/11/19 Rekha Osborne MD [address] [place] [address] Medical Oncologist/Plate Embosser Hematology 05/11/20 Mayuri Lyn, RN 4590 [facility] [address] [place] [address] SHOP Outpatient Manager Transition 12/04/20 01/04/21 Michelle Colin LCSW 4590 [facility] ([facility] Mailstop [phone] [place] [address] SHOP Outpatient Manager Transition 10/19/21 11/16/21 documented as of this encounter
--- OUTSIDE RECORDS SUMMARY | 2024-11-14 10:32 | XMS_ITS | Encounter Summary ---
Author Organization [facility] Address [address] [place] [address] Phone Care Team Providers Care Bicycle Service Technician Name Role Phone Zoila Gleason MD Primary Care Provider Rupal Isabel MD Unavailable [phone] Rekha Osborne MD Unavailable [phone] Mayuri Lyn RN Unavailable [phone] Michelle Colin FOLDER GLUER OPERATOR Unavailable [phone] Encounter Details Date Type Department Care Team [...] on file Legal Sex Male 1:53 AM LOOPING MACHINE OPERATOR Gender Identity Male 10/02/2023 12:44 [...] COVID: Recovered 11/29/2020 11/29/2020 03/29/2021 3:05 AM LOOPING MACHINE OPERATOR COVID: Suspected 10/09/2021 10/09/2021 10/09/2021 9:37 AM CDT COVID: Suspected 03/06/2022 03/06/2022 03/06/2022 9:30 AM LOOPING MACHINE OPERATOR RSV, droplet 03/06/2022 03/06/2022 03/13/2022 3:05 AM LOOPING MACHINE OPERATOR COVID: Suspected 06/26/2022 06/26/2022 06/26/2022 5:59 PM CDT Coronavirus, droplet 06/26/2022 06/26/2022 023 3:06 AM CDT documented as of this encounter Care Teams Bicycle Service Technician Relationship Specialty Start Date End Date Zoila Gleason MD [address] [place] [address] PCP - General 09/29/16 Rupal Isabel MD [address] [place] [address] [address] [place] [address] Referring Physician Allergy and Immunology 01/11/19 Rekha Osborne MD [address] [place] [address] Medical Oncologist/Cigar Head Piercer Hematology 05/11/20 Mayuri Lyn, RN 4590 [facility] 5300 [place] [address] SHOP Outpatient Oil And Gas Field Technician 12/04/20 01/04/21 Michelle Colin LCSW 4590 [facility] ([facility] [place] [facility]) Mailstop [phone] [place] [address] SHOP Outpatient Oil And Gas Field Technician 10/19/21 11/16/21 documented as of this encounter
--- OUTSIDE RECORDS SUMMARY | 2024-11-14 10:32 | XMS_ITS | Encounter Summary ---
Author Organization [facility] Address [address] [place] [address] Phone Care Team Providers Care Rock Worker Name Role Phone Zoila Gleason MD Primary Care Provider Rupal Isabel MD Unavailable [phone] Rekha Osborne MD Unavailable [phone] Mayuri Lyn RN Unavailable [phone] Michelle Colin MOLD FORMS BUILDER Unavailable [phone] Encounter Details Date Type Department Care Team [...] on file Legal Sex Male 1:53 AM CARTON STAMPER Gender Identity Male 10/02/2023 12:44 PM [...] COVID: Recovered 11/29/2020 11/29/2020 03/29/2021 3:05 AM CARTON STAMPER COVID: Suspected 10/09/2021 10/09/2021 10/09/2021 9:37 AM CDT COVID: Suspected 03/06/2022 03/06/2022 03/06/2022 9:30 AM CARTON STAMPER RSV, droplet 03/06/2022 03/06/2022 03/13/2022 3:05 AM CARTON STAMPER COVID: Suspected 06/26/2022 06/26/2022 06/26/2022 5:59 PM CDT Coronavirus, droplet 06/26/2022 06/26/2022 023 3:06 AM CDT documented as of this encounter Care Teams Rock Worker Relationship Specialty Start Date End Date Zoila Gleason MD [address] [place] [address] PCP - General 09/29/16 Rupal Isabel MD [address] [place] [address] [address] [place] [address] Referring Physician Allergy and Immunology 01/11/19 Rekha Osborne MD [address] [place] [address] Medical Oncologist/Director Special Education Hematology 05/11/20 Mayuri Lyn, RN 45[address] [facility] [address] [place] [address] SHOP Outpatient Lead Sharepoint Developer 12/04/20 01/04/21 Michelle Colin LCSW 4590 [facility] ([facility] Mailstop [phone] [place] [address] SHOP Outpatient Lead Sharepoint Developer 10/19/21 11/16/21 documented as of this encounter
--- OUTSIDE RECORDS SUMMARY | 2024-11-14 10:32 | XMS_ITS | Encounter Summary ---
Author Organization [facility] Address [address] [place] [address] Phone Care Team Providers Care Planner Chief Name Role Phone Zoila Gleason MD Primary Care Provider Rupal Isabel MD Unavailable Rekha Osborne MD Unavailable [phone] Mayuri Lyn RN Unavailable Michelle Colin MOVIE STUNT PERFORMER Unavailable Encounter Details Date Type Department Care [...] on file Legal Sex Male 1:53 AM STORE MGR Gender Identity Male 10/02/2023 12:44 PM CDT [...] COVID: Recovered 11/29/2020 11/29/2020 03/29/2021 3:05 AM STORE MGR COVID: Suspected 10/09/2021 10/09/2021 10/09/2021 9:37 AM CDT COVID: Suspected 03/06/2022 03/06/2022 03/06/2022 9:30 AM STORE MGR RSV, droplet 03/06/2022 03/06/2022 03/13/2022 3:05 AM STORE MGR COVID: Suspected 06/26/2022 06/26/2022 06/26/2022 5:59 PM CDT Coronavirus, droplet 06/26/2022 06/26/2022 023 3:06 AM CDT documented as of this encounter Care Teams Planner Chief Relationship Specialty Start Date End Date Zoila Gleason MD [address] [place], [place] [address] PCP - General 09/29/16 Rupal Isabel MD [address] [facility] [address] [place], [place] [address] Referring Physician Allergy and Immunology 01/11/19 Rekha Osborne MD [address] [place], [place] [id number] Medical Oncologist/Visual Training Aide Hematology 05/11/20 Mayuri Lyn, RN 4590 [facility] [address] [place] [address] SHOP Outpatient Wood Preserving Plant Laborer 12/04/20 01/04/21 Michelle Colin, ROSALIE 4590 [facility] ([facility]) Mailstop [phone] [place] [address] SHOP Outpatient Wood Preserving Plant Laborer 10/19/21 11/16/21 documented as of this encounter
--- OUTSIDE RECORDS SUMMARY | 2024-11-14 10:32 | XMS_ITS | Encounter Summary ---
Author Organization [facility] Address [address] [place] [address] Phone Care Team Providers Care Conditioner Tender Name Role Phone Zoila Gleason MD Primary Care Provider Rupal Isabel MD Unavailable [phone] Rekha Osborne MD Unavailable [phone] Mayuri Lyn RN Unavailable Michelle Colin ASSISTANT REFINERY OPERATOR Unavailable Encounter Details Date Type Department [...] on file Legal Sex Male 1:53 AM DIETARY AIDE Gender Identity Male 10/02/2023 12:44 PM [...] COVID: Recovered 11/29/2020 11/29/2020 03/29/2021 3:05 AM DIETARY AIDE COVID: Suspected 10/09/2021 10/09/2021 10/09/2021 9:37 AM CDT COVID: Suspected 03/06/2022 03/06/2022 03/06/2022 9:30 AM DIETARY AIDE RSV, droplet 03/06/2022 03/06/2022 03/13/2022 3:05 AM DIETARY AIDE COVID: Suspected 06/26/2022 06/26/2022 06/26/2022 5:59 PM CDT Coronavirus, droplet 06/26/2022 06/26/2022 023 3:06 AM CDT documented as of this encounter Care Teams Conditioner Tender Relationship Specialty Start Date End Date Zoila Gleason MD [address] [place] [address] PCP - General 09/29/16 Rupal Isabel MD [address] [place] [address] [address] [place] [address] Referring Physician Allergy and Immunology 01/11/19 Rekha Osborne MD [address] [place] [address] Medical Oncologist/Crime Scene Evidence Technician Hematology 05/11/20 Mayuri Lyn, RN 4590 [facility] [address] [place] [address] SHOP Outpatient Booker 12/04/20 01/04/21 Michelle Colin LCSW 4590 [facility] ([facility]) Mailstop [phone] [place] [address] SHOP Outpatient Booker 10/19/21 11/16/21 documented as of this encounter
--- OUTSIDE RECORDS SUMMARY | 2024-11-14 10:32 | XMS_ITS | Encounter Summary ---
Author Organization [facility] Address [address] [place] [address] Phone Care Team Providers Care Street Engineer Name Role Phone Zoila Gleason MD Primary Care Provider [phone] Rupal Isabel MD Unavailable [phone] Rekha Osborne MD Unavailable [phone] Mayuri Lyn RN Unavailable Michelle Colin SAFETY COUNSELOR Unavailable Encounter Details Date Type Department Care [...] file Legal Sex Male 1:53 AM ACTIVITY DIRECTOR Gender Identity Male 10/02/2023 12:44 PM [...] Recovered 11/29/2020 11/29/2020 03/29/2021 3:05 AM ACTIVITY DIRECTOR COVID: Suspected 10/09/2021 10/09/2021 10/09/2021 9:37 AM CDT COVID: Suspected 03/06/2022 03/06/2022 03/06/2022 9:30 AM ACTIVITY DIRECTOR RSV, droplet 03/06/2022 03/06/2022 03/13/2022 3:05 AM ACTIVITY DIRECTOR COVID: Suspected 06/26/2022 06/26/2022 06/26/2022 5:59 PM CDT Coronavirus, droplet 06/26/2022 06/26/2022 023 3:06 AM CDT documented as of this encounter Care Teams Street Engineer Relationship Specialty Start Date End Date Zoila Gleason MD [address] [place] [address] PCP - General 09/29/16 Rupal Isabel MD 10 [facility] [address] [place] [address] Referring Physician Allergy and Immunology 01/11/19 Rekha Osborne MD [address] [place] [address] Medical Oncologist/Ceramic Tile Installer Hematology 05/11/20 Mayuri Lyn, RN 4590 [facility] [address] [place] [address] SHOP Outpatient Cone Worker 12/04/20 01/04/21 Michelle Colin LCSW 4590 [facility] ([facility] Mailstop [phone] [place] [address] SHOP Outpatient Cone Worker 10/19/21 11/16/21 documented as of this encounter
--- OUTSIDE RECORDS SUMMARY | 2024-11-14 10:32 | XMS_ITS | Encounter Summary ---
Author Organization [facility] Address [address] [place] [address] Phone Care Team Providers Care Land Surveyor Manager Name Role Phone Zoila Gleason MD Primary Care Provider Rupal Isabel MD Unavailable [phone] Rekha Osborne MD Unavailable Mayuri Lyn RN Unavailable Michelle Colin TRAM DRIVER Unavailable Encounter Details Date Type Department Care [...] file Legal Sex Male 1:53 AM WIRE BRUSH MAKER Gender Identity Male 10/02/2023 12:44 PM [...] Recovered 11/29/2020 11/29/2020 03/29/2021 3:05 AM WIRE BRUSH MAKER COVID: Suspected 10/09/2021 10/09/2021 10/09/2021 9:37 AM CDT COVID: Suspected 03/06/2022 03/06/2022 03/06/2022 9:30 AM WIRE BRUSH MAKER RSV, droplet 03/06/2022 03/06/2022 03/13/2022 3:05 AM WIRE BRUSH MAKER COVID: Suspected 06/26/2022 06/26/2022 06/26/2022 5:59 PM CDT Coronavirus, droplet 06/26/2022 06/26/2022 023 3:06 AM CDT documented as of this encounter Care Teams Land Surveyor Manager Relationship Specialty Start Date End Date Zoila Gleason MD [address] [place] [address] PCP - General 09/29/16 Rupal Isabel MD [address] [place] [address] [address] [place] [address] Referring Physician Allergy and Immunology 01/11/19 Rekha Osborne MD [address] [place] [address] Medical Oncologist/Trench Pipe Layer Helper Hematology 05/11/20 Mayuri Lyn, RN 4590 [facility] [address] [place] [address] SHOP Outpatient Pmo Project Manager 12/04/20 01/04/21 Michelle Colin LCSW 4590 [facility] Mailstop [phone] [place] [address] SHOP Outpatient Pmo Project Manager 10/19/21 11/16/21 documented as of this encounter
--- OUTSIDE RECORDS SUMMARY | 2024-11-14 10:32 | XMS_ITS | Clinical Summary ---
Author Organization [facility] Address [address] [place] [address] Care Team Providers Care Film Touch Up Inspector Name Role Phone Unavailable Primary Care Provider Unavailabl e Source Comments [facility],non-owned Affiliates and Associated Physician Practices is amultiple site organization consisting of ambulatory clinics and hospital sitesin [place], [place], [place] and [place]. This disclosure is being madepursuant to the Care Everywhere program and may not contain all information available regarding this patient. Last updated 17.[facility] Social History Tobacco Use Types Packs/Day Years [...] Office Visit [facility] - Dermatology [address] [place] [address], [facility] Level [id number] Ele Parada MD [address] [place] [address] [address] DEPT OF DERMATOLOGY [id number] Health Maintenance Due Date Last Done Comments [...] patient's age to complete this topic Insurance [facility] MEDICAID - [place]
--- OUTSIDE RECORDS SUMMARY | 2024-11-14 10:32 | XMS_ITS | Encounter Summary ---
Author Organization [facility] Address [address] [place] [address] Phone Care Team Providers Care Glass Installer Name Role Phone Zoila Gleason MD Primary Care Provider Rupal Isabel MD Unavailable Rekha Osborne MD Unavailable [phone] Mayuri Lyn RN Unavailable [phone] Michelle Colin NEPHROLOGIST Unavailable [phone] Encounter Details Date Type Department Care Team [...] on file Legal Sex Male 1:53 AM ASSISTANT FRONT DESK MANAGER Gender Identity Male 10/02/2023 12:44 PM [...] COVID: Suspected 04/21/2020 04/21/2020 04/21/2020 11:24 AM ASSISTANT FRONT DESK MANAGER Respiratory Infection (MICKEY), contact + droplet Comment:Automatically added due to negative COVID-19 result. 04/21/2020 04/21/2020 05/05/2020 3:0 6 AM ASSISTANT FRONT DESK MANAGER COVID: Suspected 04/21/2020 04/21/2020 04/21/2020 6:48 PM ASSISTANT FRONT DESK MANAGER COVID: Suspected 09/25/2020 09/25/2020 09/25/2020 10:11 AM CDT Rhino/Enterovirus 09/25/2020 09/25/2020 10/02/2020 3:05 AM CDT COVID: Recovered 11/29/2020 11/29/2020 03/29/2021 3:05 AM ASSISTANT FRONT DESK MANAGER COVID: Suspected 10/09/2021 10/09/2021 10/09/2021 9:37 AM CDT COVID: Suspected 03/06/2022 03/06/2022 03/06/2022 9:30 AM ASSISTANT FRONT DESK MANAGER RSV, droplet 03/06/2022 03/06/2022 03/13/2022 3:05 AM ASSISTANT FRONT DESK MANAGER COVID: Suspected 06/26/2022 06/26/2022 06/26/2022 5:59 PM CDT Coronavirus, droplet 06/26/2022 06/26/2022 023 3:06 AM CDT documented as of this encounter Care Teams Glass Installer Relationship Specialty Start Date End Date Zoila Gleason MD [address] [place] [address] PCP - General 09/29/16 Rupal Isabel MD [address] [place] [address] [address] Referring Physician Allergy and Immunology 01/11/19 Rekha Osborne MD [address] [place] [address] Medical Oncologist/Cable Puller Hematology 05/11/20 Mayuri Lyn, RN 4590 [facility] [address] [place] [address] SHOP Outpatient Assurance Auditor 12/04/20 01/04/21 Michelle Colin [facility] 9090 [facility] ([facility]) Mailstop [phone] [place] [address] SHOP Outpatient Assurance Auditor 10/19/21 11/16/21 documented as of this encounter
--- OUTSIDE RECORDS SUMMARY | 2024-11-14 10:32 | XMS_ITS | Encounter Summary ---
Author Organization [facility] Address [address] [place] [address] Phone Care Team Providers Care Pipe Organ Mechanic Name Role Phone Zoila Gleason MD Primary Care Provider Rupal Isabel MD Unavailable [phone] Rekha Osborne MD Unavailable [phone] Mayuri Lyn RN Unavailable [phone] Michelle Colin POLE LIFT OPERATOR Unavailable [phone] Encounter Details Date Type Department Care Team [...] on file Legal Sex Male 1:53 AM HEALTH UNDERWRITER Gender Identity Male 10/02/2023 12:44 PM CDT [...] COVID: Recovered 11/29/2020 11/29/2020 03/29/2021 3:05 AM HEALTH UNDERWRITER COVID: Suspected 10/09/2021 10/09/2021 10/09/2021 9:37 AM CDT COVID: Suspected 03/06/2022 03/06/2022 03/06/2022 9:30 AM HEALTH UNDERWRITER RSV, droplet 03/06/2022 03/06/2022 03/13/2022 3:05 AM HEALTH UNDERWRITER COVID: Suspected 06/26/2022 06/26/2022 06/26/2022 5:59 PM CDT Coronavirus, droplet 06/26/2022 06/26/2022 023 3:06 AM CDT documented as of this encounter Care Teams Pipe Organ Mechanic Relationship Specialty Start Date End Date Zoila Gleason MD [address] [place] [address] PCP - General 09/29/16 Rupal Isabel MD [address] [place] [address] [facility] [address] [place] [address] Referring Physician Allergy and Immunology 01/11/19 Rekha Osborne MD [address] [place] [address] Medical Oncologist/Day Camp Unit Leader Hematology 05/11/20 Mayuri Lyn, RN 4590 [facility] [address] [place] [address] SHOP Outpatient Copyright Expert 12/04/20 01/04/21 Michelle Colin LCSW 4590 [facility] ([facility]) Mailstop [phone] [place] [address] SHOP Outpatient Copyright Expert 10/19/21 11/16/21 documented as of this encounter
[2024-11-14 11:22] LABS: Hematocrit 55.6 % (42.0-52.0); Hemoglobin 17.8 g/dL (14.0-18.0); Immature Granulocyte Percent A 4.7 % (0-0.5); Lymphocytes Absolute Auto 2.07 K/mm3 (0.9-3.2); Mean Corpuscular HGB Conc 32.0 g/dl (32-36); Mean Corpuscular Hemoglobin 31.4 pg (26-34); Mean Corpuscular Volume 98.2 fl (80-100); Nucleated Red Blood Cells Absolute Auto 0.020 K/mm3 (0.0-0.012); Nucleated Red Blood Cells Perc 0.1 % (0.0-0.2); Platelet Count Result 359 k/mm3 (150-375); Red Blood Count 5.66 M/mm3 (4.6-6.20); White Blood Count 13.5 K/mm3 (4.5-10.0)
[2024-11-14 11:40] LABS: Alanine Aminotransferase 31 U/L (6-50); Albumin Level 4.1 g/dL (3.5-5.1); Alkaline Phosphatase 103 U/L (38-126); Anion Gap 11 mmol/L (4-12); Aspartate Amino Transferase 27 U/L (17-59); Bilirubin,Total 0.4 mg/dL (0.2-1.3); Blood Urea Nitrogen 31 mg/dL (9-20); Calcium 9.4 mg/dL (8.4-10.2); Carbon Dioxide 23 mmol/L (22-30); Chloride 105 mmol/L (98-107); Estimated Glomerular Filt Rate > 60; Glucose 136 mg/dL (65-110); Potassium 4.4 mmol/L (3.4-5.0); Sodium 139 mmol/L (137-145); Total Protein 8.1 g/dL (6.3-8.2)
[2024-11-14 12:09] LABS: Thyroid Stimulating Hormone 3.400 uIU/mL (0.465-4.680)
[2024-11-14 13:54] LABS: Ferritin 92.60 ng/mL (17.9-464)
== END 2024-11-14 10:16 | disposition home or self-care (01) ==
LOC: ANHGOSHLAB 10:17
PROVIDERS: PCP Pediatrics; Visit Provider Internal Medicine
DX: D69.6 Thrombocytopenia, unspecified (principal); E03.9 Hypothyroidism, unspecified; D69.41 Evans syndrome
CPT/HCPCS: 36415; 80053; 82728; 84443; 85025

== ENCOUNTER 2024-12-25 11:33 | Outpatient (CLI) | payer BC, MEDICAID, SELFPAY ==
--- OUTSIDE RECORDS SUMMARY | 2024-12-25 12:18 | XMS_ITS | Encounter Summary ---
Author Organization [facility] Address [facility] [place] [address] Care Team Providers Care Sped Teacher Name Role Phone Victorino Tennille Primary Care Provider [phone] Encounter Details Date Type Department Care Team (Latest Contact Info) Description 12/25/2024 Travel Social History Tobacco Use Types Packs/Day Years Used Date Smoking Tobacco: Never Assessed Sex and Gender Information Value Date Recorded Sex Assigned at Not on file Legal Sex Male 11:21 AM CDT Gender Identity Not on file Sexual Orientation Not on file documented as of this encounter Plan of Treatment Upcoming Encounters Date Type Department Care Team (Late st Contact Info) Description 04/09/2025 3:40 PM HEAD OF SALES Office Visit [facility] - General Dermatology [address] [place] [address] Joaquim Qureshi PA-C [address] [place] [address] documented as of this encounter Visit Diagnoses Not on filedocumented in this encounter Care Teams Sped Teacher Relationship Specialty Start Date End Date Tennille Gleason [place], [place] PCP - General 11/20/24 documented as of this encounter
--- OUTSIDE RECORDS SUMMARY | 2024-12-25 12:18 | XMS_ITS | Encounter Summary ---
Author Organization [facility] Address [address] [place] [address] Phone Care Team Providers Care Thermal Technician Name Role Phone Zoila Gleason MD Primary Care Provider [phone] Rupal Isabel MD Unavailable [phone] Rekha Osborne MD Unavailable [phone] Encounter Details Date Type Department Care Team [...] often do you attend chur ch or gnosticist services? Never 10/11/2021 Do you belong to [...] on file Legal Sex Male 1:53 AM TRAIN OPERATOR Gender Identity Male 10/02/2023 12:44 PM [...] documented as of this encounter Care Teams Thermal Technician Relationship Specialty Start Date End Date Zoila Gleason MD [address] [place] [address] PCP - General 09/29/16 Rupal Isabel MD [address] [facility] [address] [place] [address] Referring Physician Allergy and Immunology 01/11/19 Rekha Osborne MD [address] [place] [address] Medical Oncologist/Service Advocate Contact Hematology 05/11/20 documented as of this encounter
--- OUTSIDE RECORDS SUMMARY | 2024-12-25 12:18 | XMS_ITS | Encounter Summary ---
Author Organization [facility] Address [facility] [address] Care Team Providers Care Civil Manager Name Role Phone Tennille Gleason Primary Care Provider [phone] Reason for Visit * Reason Onset Date Comments Reschedule Appointment 12/25/2024 Encounter Details Date Type Department Care Team (Late Contact Info) Description 12/25/2024 Telephone [facility] - General Dermatology [address] [place] [address] Joaquim Qureshi, PALilyC [address] [place] [address] Reschedule Appointment Social History Tobacco Use Types Packs/Day Years Used Date Smoking Tobacco: Never Assessed Sex and Gender Information Value Date Recorded Sex Assigned at Not on file Legal Sex Male 11:21 AM CDT Gender Identity Not on file Sexual Orientation Not on file documented as of this encounter Miscellaneous Notes * Telephone Encounter - Lilibeth Cox - 12/25/2024 10:53 AM CDT Pt mother Adali called to reschedule wart fu Scc scheduled next avail 04/2025 Mother stated needs 6-8 wk fu, please contact documented in this encounter Plan of Treatment Upcoming Encounters Date Type Department Care Team (Late Contact Info) Description 04/09/2025 3:40 PM BIOMEDICAL EQUIPMENT SPECIALIST Office Visit [facility] - General Dermatology [address] [place] [address] Joaquim Qureshi, PALilyC [address] [facility] [address] [place] [address] documented as of this encounter Visit Diagnoses Not on filedocumented in this encounter Care Teams Civil Manager Relationship Specialty Start Date End Date Tennille Gleason MA PCP - General 11/20/24 documented as of this encounter
--- OUTSIDE RECORDS SUMMARY | 2024-12-25 12:18 | XMS_ITS | Encounter Summary ---
Author Organization [facility] Address [address] [place] [address] Phone Care Team Providers Care Wastewater Treatment Plant Instructor Name Role Phone Zoila Gleason MD Primary Care Provider [phone] Rupal Isabel MD Unavailable [phone] Rekha Osborne MD Unavailable [phone] Encounter Details Date Type Department Care Team (Latest Contact Info) Description 03/30/2024 Orders Only [facility] Scanning, Provider [...] any clubs o r organizations such as jewish groups, unions, fraternal or athletic groups, or school groups? No 10/11/2021 How often do you attend meet ings of the clubs or organizations you belong to? Never 10/11/2021 Are you , , di vorced, , never , or living with a partner? Never 10/11/2021 AUDIT-C Answer Date Recorded Q1: How often do you have a drink containing alcohol? Never 04/04/2023 Q2: How many drinks containi ng alcohol do you have on a typical day when you are drinking? Patient does not drink Q3: How often do you have si x or more drinks on one occasion? Never 04/04/2023 Overall Financial Resource Strain (CARDIA) Answe r [...] slept in a penitentiary (including now)? No 10/11/2021 Personal Safety Answer Date Recorded Have you ever been in or are you currently in a harmful physical or emotional relationship or is someone making you feel afraid or unsafe? Patient unable to answer 12/18/2023 Sex and Gender Information Value Date Recorded Sex Assigned at Not on file Legal Sex Male 1:53 AM COOK FROZEN DESSERT Gender Identity Male 10/02/2023 12:44 PM CDT Sexual Orientation Don't know 11/15/2020 1: 06 PM CDT documented as of this encounter Plan of Treatment Not on file documented as of this encounter Procedures Procedure Name Priority Date/Time Associated Diagnosis Comments SCAN - LABS 03/30/2024 documented in this encounter Results * SCAN - LABS (03/30/2024) us Provider Scanning Final Result documented in this encounter Visit Diagnoses Not on filedocumented in this encounter Care Teams Wastewater Treatment Plant Instructor Relationship Specialty Start Date End Date Zoila Gleason MD [address] [place] [address] PCP - General 09/29/16 Rupal Isabel MD 10 [facility] 200 [place] [address] Referring Physician Allergy and Immunology 01/11/19 Rekah Osborne MD [address] [place] [address] Medical Oncologist/Barrel Repairer Hematology 05/11/20 documented as of this encounter
--- OUTSIDE RECORDS SUMMARY | 2024-12-25 12:18 | XMS_ITS | Clinical Summary ---
Author Organization [employer] [facility] Address [address] [place] [address] Care Team Providers Care Medication Assistant Name Role Phone Unavailable Primary Care Provider [...] WEEKS. 24 Packet 1 03/02/2023 2:48 PM LIBRARY TECHNICIAN 3 Active clindamycin phosphate (CLEOCIN T) 1 [...] procedure 4 Capsule 1 03/02/2023 2:45 PM LIBRARY TECHNICIAN 3 Active docusate sodium (COLACE) 100 mg capsule Take one capsule (100 mg) orally twice a day 60 Capsule 3 03/14/2023 12:03 PM LIBRARY TECHNICIAN 3 Active levothyroxine 112 mcg tablet Take one tablet (112 mcg) orally every morning 90 Tablet 2 03/14/2023 12:03 PM LIBRARY TECHNICIAN 3 Active pantoprazole (PROTONIX) 40 mg Tablet, Delayed Release (E.C.) Take one tablet (40 mg) orally daily 60 Tablet 03/14/2023 12:03 PM LIBRARY TECHNICIAN 3 Active sertraline (ZOLOFT) 100 mg tablet Take one tablet (50 mg) orally daily 90 Tablet 3 3 Active hydrocortisone sod succ, PF, (Solu-CORTEF Act-O-Vial, PF,) 100 mg/2 mL Recon Soln Inject 2 mL (100 mg) by intramuscular injection 1 time daily as needed for adrenal crisis. 10 Each 2 04/17/2023 6:40 PM LIBRARY TECHNICIAN 4 Active apixaban (Eliquis) 5 mg tablet Take 1 Tablet (5 mg) by mouth 2 times daily. 30 Tablet 1 04/08/2023 4:00 PM LIBRARY TECHNICIAN 4 Active nirmatrelvir-r itonavir (Paxlovid) 300(150mg x 2)-100 mg oral pack TAKE 2 TABLETS OF NIRMATRELVIR AND 1 TABLET OF RITONAVIR BY MOUTH TWICE DAILY FOR 5 DAYS 30 Each 4 Active predniSONE (DELTASONE) 1 mg tablet TAKE 1-4 TABLETS BY MOUTH DAILY DIRECTED BY PHYSICIAN. TAKE WITH 5 MG DAILY. 120 Tablet 2 04/25/2023 2:35 PM LIBRARY TECHNICIAN 4 Active nirmatrelvir-r itonavir (Paxlovid) 300(150mg x [...] failure. 90 Tablet 2 04/25/2023 2:35 PM LIBRARY TECHNICIAN 4 Active Immunizations Immunization Administration Dates Next [...] of 3 - 19+ 3-dose series) 2016 HPV VACCINES (1 - 3-dose SCDM series) 2024 INFLUENZA VACCINE (#1) 2024 12/29/2022, 2021 Insurance RX [employer] Commercial RX [employer] PLANS (INTERNAL) [facility] [employer] Medicaid
--- OUTSIDE RECORDS SUMMARY | 2024-12-25 12:19 | XMS_ITS | Encounter Summary ---
Author Organization [facility] Address [address] [place] [address] Phone Care Team Providers Care Display Mechanic Name Role Phone Zoila Gleason MD Primary Care Provider Rupal Iasbel MD Unavailable [phone] Rekha Osborne MD Unavailable [phone] Mayuri Lyn RN Unavailable Michelle Colin BILLBOARD INSTALLER Unavailable [phone] Encounter Details Date Type Department Care Team [...] on file Legal Sex Male 1:53 AM ONLINE MERCHANDISING COORDINATOR Gender Identity Male 10/02/2023 12:44 PM [...] COVID: Recovered 11/29/2020 11/29/2020 03/29/2021 3:05 AM ONLINE MERCHANDISING COORDINATOR COVID: Suspected 10/09/2021 10/09/2021 10/09/2021 9:37 AM CDT COVID: Suspected 03/06/2022 03/06/2022 03/06/2022 9:30 AM ONLINE MERCHANDISING COORDINATOR RSV, droplet 03/06/2022 03/06/2022 03/13/2022 3:05 AM ONLINE MERCHANDISING COORDINATOR COVID: Suspected 06/26/2022 06/26/2022 06/26/2022 5:59 PM CDT Coronavirus, droplet 06/26/2022 06/26/2022 023 3:06 AM CDT documented as of this encounter Care Teams Display Mechanic Relationship Specialty Start Date End Date Zoila Gleason MD [address] [place] [address] PCP - General 09/29/16 Rupal Isabel MD 10 [facility] [address] [place] [address] Referring Physician Allergy and Immunology 01/11/19 Rekha Osborne MD [address] [place] [address] Medical Oncologist/Battery Technician Hematology 05/11/20 Mayuri Lyn, RN 4590 [facility] [address] [place] [address] SHOP Outpatient Ship Surveyor 12/04/20 01/04/21 Michelle Colin LCSW 4590 [facility] ([facility] Mailstop [phone] [place] [address] SHOP Outpatient Ship Surveyor 10/19/21 11/16/21 documented as of this encounter
--- OUTSIDE RECORDS SUMMARY | 2024-12-25 12:19 | XMS_ITS | Encounter Summary ---
Author Organization [facility] Address [address] [place] [address] Phone Care Team Providers Care Pulper Name Role Phone Zoila Gleason MD Primary Care Provider Rupal Isabel MD Unavailable [phone] Rekha Osborne MD Unavailable [phone] Mayuri Lyn RN Unavailable Michelle Colin PIG CASTING MACHINE OPERATOR Unavailable Encounter Details Date Type [...] on file Legal Sex Male 1:53 AM BOTTOMING ROOM INSPECTOR Gender Identity Male 10/02/2023 12:44 PM [...] COVID: Suspected 04/21/2020 04/21/2020 04/21/2020 11:24 AM BOTTOMING ROOM INSPECTOR Respiratory Infection (MICKEY), contact + droplet Comment:Automatically added due to negative COVID-19 result. 04/21/2020 04/21/2020 05/05/2020 3:0 6 AM BOTTOMING ROOM INSPECTOR COVID: Suspected 04/21/2020 04/21/2020 04/21/2020 6:48 PM BOTTOMING ROOM INSPECTOR COVID: Suspected 09/25/2020 09/25/2020 09/25/2020 10:11 AM CDT Rhino/Enterovirus 09/25/2020 09/25/2020 10/02/2020 3:05 AM CDT COVID: Recovered 11/29/2020 11/29/2020 03/29/2021 3:05 AM BOTTOMING ROOM INSPECTOR COVID: Suspected 10/09/2021 10/09/2021 10/09/2021 9:37 AM CDT COVID: Suspected 03/06/2022 03/06/2022 03/06/2022 9:30 AM BOTTOMING ROOM INSPECTOR RSV, droplet 03/06/2022 03/06/2022 03/13/2022 3:05 AM BOTTOMING ROOM INSPECTOR COVID: Suspected 06/26/2022 06/26/2022 06/26/2022 5:59 PM CDT Coronavirus, droplet 06/26/2022 06/26/2022 023 3:06 AM CDT documented as of this encounter Care Teams Pulper Relationship Specialty Start Date End Date Zoila Gleason MD [address] [place] [address] PCP - General 09/29/16 Rupal Isabel MD 10 [facility] [address] [address] Referring Physician Allergy and Immunology 01/11/19 Rekha Osborne MD [address] [place] [address] Medical Oncologist/Pizza Chef Hematology 05/11/20 Mayuri Lyn, RN 4590 [facility] [address] [place] [address] SHOP Outpatient Loop Tender 12/04/20 01/04/21 Michelle Colin LCSW 0708 [facility] ([facility]) Mailstop [phone] [place] [address] SHOP Outpatient Loop Tender 10/19/21 11/16/21 documented as of this encounter
--- OUTSIDE RECORDS SUMMARY | 2024-12-25 12:19 | XMS_ITS | Encounter Summary ---
Author Organization [facility] Address [address] [place] [address] Phone Care Team Providers Care Oracle Applications Developer Name Role Phone Zoila Gleason MD Primary Care Provider [phone] Rupal Isabel MD Unavailable [phone] Rekha Osborne MD Unavailable [phone] Mayuri Lyn RN Unavailable Michelle Colin FURNITURE SHAMPOOER Unavailable Encounter Details Date Type Department Care [...] on file Legal Sex Male 1:53 AM PEDIATRIC ONCOLOGY NURSE Gender Identity Male 10/02/2023 12:44 PM CDT [...] COVID: Suspected 04/21/2020 04/21/2020 04/21/2020 11:24 AM PEDIATRIC ONCOLOGY NURSE Respiratory Infection (MICKEY), contact + droplet Comment:Automatically added due to negative COVID-19 result. 04/21/2020 04/21/2020 05/05/2020 3:0 6 AM PEDIATRIC ONCOLOGY NURSE COVID: Suspected 04/21/2020 04/21/2020 04/21/2020 6:48 PM PEDIATRIC ONCOLOGY NURSE COVID: Suspected 09/25/2020 09/25/2020 09/25/2020 10:11 AM CDT Rhino/Enterovirus 09/25/2020 09/25/2020 10/02/2020 3:05 AM CDT COVID: Recovered 11/29/2020 11/29/2020 03/29/2021 3:05 AM PEDIATRIC ONCOLOGY NURSE COVID: Suspected 10/09/2021 10/09/2021 10/09/2021 9:37 AM CDT COVID: Suspected 03/06/2022 03/06/2022 03/06/2022 9:30 AM PEDIATRIC ONCOLOGY NURSE RSV, droplet 03/06/2022 03/06/2022 03/13/2022 3:05 AM PEDIATRIC ONCOLOGY NURSE COVID: Suspected 06/26/2022 06/26/2022 06/26/2022 5:59 PM CDT Coronavirus, droplet 06/26/2022 06/26/2022 023 3:06 AM CDT documented as of this encounter Care Teams Oracle Applications Developer Relationship Specialty Start Date End Date Zoila Gleason MD [address] [place] [address] PCP - General 09/29/16 Rupal Isabel MD [address] [place] [address] [address] Referring Physician Allergy and Immunology 01/11/19 Rekha Osborne MD [address] [place] [address] Medical Oncologist/Auto Self Service Station Attendant Hematology 05/11/20 Mayuri Lyn, RN 4590 [facility] [address] [place] [address] SHOP Outpatient Map Drafter 12/04/20 01/04/21 Michelle Colin [facility] 9390 [facility] ([facility]) Mailstop [phone] [place] [address] SHOP Outpatient Map Drafter 10/19/21 11/16/21 documented as of this encounter
--- OUTSIDE RECORDS SUMMARY | 2024-12-25 12:19 | XMS_ITS | Encounter Summary ---
Author Organization [facility] Address [address] [place] [address] Phone Care Team Providers Care Apprentice Cosmetologist Name Role Phone Zoila Gleason MD Primary Care Provider Rupal Isabel MD Unavailable [phone] Rekha Osborne MD Unavailable [phone] Mayuri Lyn RN Unavailable Michelle Colin MANAGER SCIENTIFIC Unavailable [phone] Encounter Details Date Type Department Care Team [...] on file Legal Sex Male 1:53 AM DIE SETTER Gender Identity Male 10/02/2023 12:44 PM CDT [...] COVID: Recovered 11/29/2020 11/29/2020 03/29/2021 3:05 AM DIE SETTER COVID: Suspected 10/09/2021 10/09/2021 10/09/2021 9:37 AM CDT COVID: Suspected 03/06/2022 03/06/2022 03/06/2022 9:30 AM DIE SETTER RSV, droplet 03/06/2022 03/06/2022 03/13/2022 3:05 AM DIE SETTER COVID: Suspected 06/26/2022 06/26/2022 06/26/2022 5:59 PM CDT Coronavirus, droplet 06/26/2022 06/26/2022 023 3:06 AM CDT documented as of this encounter Care Teams Apprentice Cosmetologist Relationship Specialty Start Date End Date Zoila Gleason MD [address] [place] [address] PCP - General 09/29/16 Rupal Isabel MD [address] [place] [address] [address] [place] [address] Referring Physician Allergy and Immunology 01/11/19 Rekha Osborne MD [address] [place] [address] Medical Oncologist/Welding Machine Assembler Hematology 05/11/20 Mayuri Lyn, RN 4590 [facility] [address] [place] [address] SHOP Outpatient Family Member Caretaker 12/04/20 01/04/21 Michelle Colin LCSW 4590 [facility] ([facility] Mailstop [phone] [place] [address] SHOP Outpatient Family Member Caretaker 10/19/21 11/16/21 documented as of this encounter
--- OUTSIDE RECORDS SUMMARY | 2024-12-25 12:19 | XMS_ITS | Encounter Summary ---
Author Organization [facility] Address [address] [place] [address] Phone Care Team Providers Care Wire Machine Cutter Name Role Phone Zoila Gleason MD Primary Care Provider [phone] Rupal Isabel MD Unavailable [phone] Rekha Osborne MD Unavailable [phone] Mayuri Lyn RN Unavailable [phone] Michelle Colin PATHOLOGY TECHNOLOGIST Unavailable Encounter Details Date Type Department Care [...] on file Legal Sex Male 1:53 AM ROLLING MACHINE OPERATOR Gender Identity Male 10/02/2023 12:44 [...] COVID: Recovered 11/29/2020 11/29/2020 03/29/2021 3:05 AM ROLLING MACHINE OPERATOR COVID: Suspected 10/09/2021 10/09/2021 10/09/2021 9:37 AM CDT COVID: Suspected 03/06/2022 03/06/2022 03/06/2022 9:30 AM ROLLING MACHINE OPERATOR RSV, droplet 03/06/2022 03/06/2022 03/13/2022 3:05 AM ROLLING MACHINE OPERATOR COVID: Suspected 06/26/2022 06/26/2022 06/26/2022 5:59 PM CDT Coronavirus, droplet 06/26/2022 06/26/2022 023 3:06 AM CDT documented as of this encounter Care Teams Wire Machine Cutter Relationship Specialty Start Date End Date Zoila Gleason MD [address] [place] [address] PCP - General 09/29/16 Rupal Isabel MD [address] [place] [address] [address] [place] [address] Referring Physician Allergy and Immunology 01/11/19 Rekha Osborne MD [address] [place] [address] Medical Oncologist/Insurance Agents Supervisor Hematology 05/11/20 Mayuri Lyn, RN 4590 [facility] [address] [place] [address] SHOP Outpatient House Calls Nurse 12/04/20 01/04/21 Michelle Colin LCSW 4590 [facility] ([facility] Mailstop [phone] [place] [address] SHOP Outpatient House Calls Nurse 10/19/21 11/16/21 documented as of this encounter
--- OUTSIDE RECORDS SUMMARY | 2024-12-25 12:19 | XMS_ITS | Encounter Summary ---
Author Organization [facility] of [facility] Address [address] [place] [address] Phone Care Team Providers Care Finishing Technician Name Role Phone Zoila Gleason MD Primary Care Provider Rupal Isabel MD Unavailable [phone] Rekha Osborne MD Unavailable [phone] Mayuri Lyn RN Unavailable [phone] Michelle Colin PASTE UP ARTIST Unavailable Encounter Details Date Type Department Care [...] file Legal Sex Male 1:53 AM LEARNING DISABLED TEACHER Gender Identity Male 10/02/2023 12:44 PM [...] Recovered 11/29/2020 11/29/2020 03/29/2021 3:05 AM LEARNING DISABLED TEACHER COVID: Suspected 10/09/2021 10/09/2021 10/09/2021 9:37 AM CDT COVID: Suspected 03/06/2022 03/06/2022 03/06/2022 9:30 AM LEARNING DISABLED TEACHER RSV, droplet 03/06/2022 03/06/2022 03/13/2022 3:05 AM LEARNING DISABLED TEACHER COVID: Suspected 06/26/2022 06/26/2022 06/26/2022 5:59 PM CDT Coronavirus, droplet 06/26/2022 06/26/2022 023 3:06 AM CDT documented as of this encounter Care Teams Finishing Technician Relationship Specialty Start Date End Date Zoila Gleason MD [address] [place] [address] PCP - General 09/29/16 Rupal Isabel MD [address] [place] [address] [address] [place] [address] Referring Physician Allergy and Immunology 01/11/19 Rekha Osborne MD [address] [place] [address] Medical Oncologist/Pulverizer Tender Hematology 05/11/20 Mayuri Lyn, RN 4590 [facility] [address] [place] [address] SHOP Outpatient Carpenter Assistant 12/04/20 01/04/21 Michelle Colin LCSW 4590 [facility] ([facility]) Mailstop [phone] [place] [address] SHOP Outpatient Carpenter Assistant 10/19/21 11/16/21 documented as of this encounter
--- OUTSIDE RECORDS SUMMARY | 2024-12-25 12:19 | XMS_ITS | Encounter Summary ---
Author Organization [facility] Address [address] [place] [address] Phone Care Team Providers Care Rigging Loft Repairer Name Role Phone Zoila Gleason MD Primary Care Provider Rupal Isabel MD Unavailable [phone] Rekha Osborne MD Unavailable [phone] Mayuri Lyn RN Unavailable Michelle Colin COMPLAINT INVESTIGATIONS OFFICER Unavailable Encounter Details Date Type Department [...] file Legal Sex Male 1:53 AM INSURANCE ACTUARY Gender Identity Male 10/02/2023 12:44 PM CDT [...] Recovered 11/29/2020 11/29/2020 03/29/2021 3:05 AM INSURANCE ACTUARY COVID: Suspected 10/09/2021 10/09/2021 10/09/2021 9:37 AM CDT COVID: Suspected 03/06/2022 03/06/2022 03/06/2022 9:30 AM INSURANCE ACTUARY RSV, droplet 03/06/2022 03/06/2022 03/13/2022 3:05 AM INSURANCE ACTUARY COVID: Suspected 06/26/2022 06/26/2022 06/26/2022 5:59 PM CDT Coronavirus, droplet 06/26/2022 06/26/2022 023 3:06 AM CDT documented as of this encounter Care Teams Rigging Loft Repairer Relationship Specialty Start Date End Date Zoila Gleason MD [address] [place] [address] PCP - General 09/29/16 Rupal Isabel MD [address] [place] [address] [address] [place] [address] Referring Physician Allergy and Immunology 01/11/19 Rekha Osborne MD [address] [place] [address] Medical Oncologist/Library Circulation Technician Hematology 05/11/20 Mayuri Lyn, RN 4590 [facility] [address] [place] [address] SHOP Outpatient Truck Shop Supervisor 12/04/20 01/04/21 Michelle Colin LCSW 4590 [facility] ([facility] Mailstop [phone] [place] [address] SHOP Outpatient Truck Shop Supervisor 10/19/21 11/16/21 documented as of this encounter
--- OUTSIDE RECORDS SUMMARY | 2024-12-25 12:19 | XMS_ITS | Encounter Summary ---
Author Organization [facility] Address [address] [place] [address] Care Team Providers Care Residential Insurance Inspector Name Role Phone Zoila Gleason MD Primary Care Provider Rupal Isabel MD Unavailable [phone] Rekha Osborne MD Unavailable [phone] Mayuri Lyn RN Unavailable [phone] Michelle Colin [facility] Unavailable [phone] Encounter Details Date Type Department Care Team (Late st Contact Info) Description 11/12/[address] [facility] [address] [place] [address] Aiyana Lovelace, ZOFIA Social History Tobacco [...] on file Legal Sex Male 1:53 AM PLASTER MODEL AND MOLD MAKER Gender Identity Male 10/02/2023 12:44 PM CDT Sexual Orientation Don't know 11/15/2020 1: 06 PM CDT documented as of this encounter Plan of Treatment Not on file documented as of this encounter Visit Diagnoses Not on filedocumented in this encounter Additional Health Concerns Infection Onset Date Last Indicated Resolved Time COVID: Recovered 11/29/2020 11/29/2020 03/29/2021 3:05 AM PLASTER MODEL AND MOLD MAKER COVID: Suspected 10/09/2021 10/09/2021 10/09/2021 9:37 AM CDT COVID: Suspected 03/06/2022 03/06/2022 03/06/2022 9:30 AM PLASTER MODEL AND MOLD MAKER RSV, droplet 03/06/2022 03/06/2022 03/13/2022 3:05 AM PLASTER MODEL AND MOLD MAKER COVID: Suspected 06/26/2022 06/26/2022 06/26/2022 5:59 PM CDT Coronavirus, droplet 06/26/2022 06/26/2022 023 3:06 AM CDT documented as of this encounter Care Teams Residential Insurance Inspector Relationship Specialty Start Date End Date Zoila Gleason MD [address] [place] [address] PCP - General 09/29/16 Rupal Isabel MD 10 [facility] [address] [place] [address] Referring Physician Allergy and Immunology 01/11/19 Rekha Osborne MD [address] [place] [address] Medical Oncologist/Aircraft Part Assembler Hematology 05/11/20 Mayuri Lyn, RN 4590 [facility] [address] [place] [address] SHOP Outpatient Office Assistant 12/04/20 01/04/21 Michelle Colin LCSW 4590 [facility] Mailstop [phone] [place] [address] SHOP Outpatient Office Assistant 10/19/21 11/16/21 documented as of this encounter
--- OUTSIDE RECORDS SUMMARY | 2024-12-25 12:19 | XMS_ITS | Encounter Summary ---
Author Organization [facility] Address [address] [place] [address] Phone Care Team Providers Care Manager Music Name Role Phone Zoila Gleason MD Primary Care Provider Rupal Isabel MD Unavailable [phone] Rekha Osborne MD Unavailable [phone] Mayuri Lyn RN Unavailable [phone] Michelle Colin BIODIESEL PRODUCTION ASSOCIATE Unavailable [phone] Encounter Details Date Type Department Care Team [...] file Legal Sex Male 1:53 AM CLINICAL SUPPORT NURSE Gender Identity Male 10/02/2023 12:44 PM [...] Suspected 04/21/2020 04/21/2020 04/21/2020 11:24 AM CLINICAL SUPPORT NURSE Respiratory Infection (MICKEY), contact + droplet Comment:Automatically added due to negative COVID-19 result. 04/21/2020 04/21/2020 05/05/2020 3:0 6 AM CLINICAL SUPPORT NURSE COVID: Suspected 04/21/2020 04/21/2020 04/21/2020 6:48 PM CLINICAL SUPPORT NURSE COVID: Suspected 09/25/2020 09/25/2020 09/25/2020 10:11 AM CDT Rhino/Enterovirus 09/25/2020 09/25/2020 10/02/2020 3:05 AM CDT COVID: Recovered 11/29/2020 11/29/2020 03/29/2021 3:05 AM CLINICAL SUPPORT NURSE COVID: Suspected 10/09/2021 10/09/2021 10/09/2021 9:37 AM CDT COVID: Suspected 03/06/2022 03/06/2022 03/06/2022 9:30 AM CLINICAL SUPPORT NURSE RSV, droplet 03/06/2022 03/06/2022 03/13/2022 3:05 AM CLINICAL SUPPORT NURSE COVID: Suspected 06/26/2022 06/26/2022 06/26/2022 5:59 PM CDT Coronavirus, droplet 06/26/2022 06/26/2022 023 3:06 AM CDT documented as of this encounter Care Teams Manager Music Relationship Specialty Start Date End Date Zoila Gleason MD [address] [place] [address] PCP - General 09/29/16 Rupal Isabel MD [address] [place] [address] [address] Referring Physician Allergy and Immunology 01/11/19 Rekha Osborne MD [address] [place] [address] Medical Oncologist/Electronic Console Display Operator Hematology 05/11/20 Mayuri Lyn, RN 4590 [facility] [address] [place] [address] SHOP Outpatient Aircraft Motor Mechanic 12/04/20 01/04/21 Michelle Colin [facility] 4490 [facility] ([facility]) Mailstop [phone] [place] [address] SHOP Outpatient Aircraft Motor Mechanic 10/19/21 11/16/21 documented as of this encounter
--- OUTSIDE RECORDS SUMMARY | 2024-12-25 12:19 | XMS_ITS | Encounter Summary ---
Author Organization [facility] Address [address] [place] [address] Phone Care Team Providers Care Director Of Global Marketing Name Role Phone Zoila Gleason MD Primary Care Provider Rupal Isabel MD Unavailable [phone] Rekha Osborne MD Unavailable [phone] Mayuri Lyn RN Unavailable [phone] Michelle Colin SODA DRIER FEEDER Unavailable Encounter Details Date Type Department Care [...] on file Legal Sex Male 1:53 AM ENTERPRISE PROJECT MANAGER Gender Identity Male 10/02/2023 12:44 [...] COVID: Recovered 11/29/2020 11/29/2020 03/29/2021 3:05 AM ENTERPRISE PROJECT MANAGER COVID: Suspected 10/09/2021 10/09/2021 10/09/2021 9:37 AM CDT COVID: Suspected 03/06/2022 03/06/2022 03/06/2022 9:30 AM ENTERPRISE PROJECT MANAGER RSV, droplet 03/06/2022 03/06/2022 03/13/2022 3:05 AM ENTERPRISE PROJECT MANAGER COVID: Suspected 06/26/2022 06/26/2022 06/26/2022 5:59 PM CDT Coronavirus, droplet 06/26/2022 06/26/2022 023 3:06 AM CDT documented as of this encounter Care Teams Director Of Global Marketing Relationship Specialty Start Date End Date Zoila Gleason MD [address] [place] [address] PCP - General 09/29/16 Rupal Isabel MD [address] [place] [address] [address] [place] [address] Referring Physician Allergy and Immunology 01/11/19 Rekha Osborne MD [address] [place] [address] Medical Oncologist/Technician'S Helper Hematology 05/11/20 Mayuri Lyn, RN 4590 [facility] [address] [place] [address] SHOP Outpatient Lead Former 12/04/20 01/04/21 Michelle Colin LCSW 4590 [facility] ([facility]) Mailstop [phone] [place] [address] SHOP Outpatient Lead Former 10/19/21 11/16/21 documented as of this encounter
--- OUTSIDE RECORDS SUMMARY | 2024-12-25 12:19 | XMS_ITS | Encounter Summary ---
Author Organization [facility] Address [address] [place] [address] Phone Care Team Providers Care Cinnamon Grinder Name Role Phone Zoila Gleason MD Primary Care Provider Rupal Isabel MD Unavailable [phone] Rekha Osborne MD Unavailable [phone] Mayuri Lyn RN Unavailable [phone] Michelle Colin FLASK HANDLER Unavailable Encounter Details Date Type Department Care [...] on file Legal Sex Male 1:53 AM GENERAL MAINTENANCE HELPER Gender Identity Male 10/02/2023 12:44 PM [...] COVID: Suspected 04/21/2020 04/21/2020 04/21/2020 11:24 AM GENERAL MAINTENANCE HELPER Respiratory Infection (MICKEY), contact + droplet Comment:Automatically added due to negative COVID-19 result. 04/21/2020 04/21/2020 05/05/2020 3:0 6 AM GENERAL MAINTENANCE HELPER COVID: Suspected 04/21/2020 04/21/2020 04/21/2020 6:48 PM GENERAL MAINTENANCE HELPER COVID: Suspected 09/25/2020 09/25/2020 09/25/2020 10:11 AM CDT Rhino/Enterovirus 09/25/2020 09/25/2020 10/02/2020 3:05 AM CDT COVID: Recovered 11/29/2020 11/29/2020 03/29/2021 3:05 AM GENERAL MAINTENANCE HELPER COVID: Suspected 10/09/2021 10/09/2021 10/09/2021 9:37 AM CDT COVID: Suspected 03/06/2022 03/06/2022 03/06/2022 9:30 AM GENERAL MAINTENANCE HELPER RSV, droplet 03/06/2022 03/06/2022 03/13/2022 3:05 AM GENERAL MAINTENANCE HELPER COVID: Suspected 06/26/2022 06/26/2022 06/26/2022 5:59 PM CDT Coronavirus, droplet 06/26/2022 06/26/2022 023 3:06 AM CDT documented as of this encounter Care Teams Cinnamon Grinder Relationship Specialty Start Date End Date Zoila Gleason MD [address] [place] [address] PCP - General 09/29/16 Rupal Isabel MD 10 [facility] [address] [place] [address] Referring Physician Allergy and Immunology 01/11/19 Rekha Osborne MD [address] [place] [address] Medical Oncologist/Rn Integrated Hematology 05/11/20 Mayuri Lyn, RN 4590 [facility] [address] [place] [address] SHOP Outpatient Top Closer 12/04/20 01/04/21 Michelle Colin LCSW 4590 [facility] ([facility]) Mailstop [phone] [place] [address] SHOP Outpatient Top Closer 10/19/21 11/16/21 documented as of this encounter
--- OUTSIDE RECORDS SUMMARY | 2024-12-25 12:19 | XMS_ITS | Encounter Summary ---
Author Organization [facility] Address [address] [place] [address] Care Team Providers Care Hris Coordinator Name Role Phone Zoila Gleason MD Primary Care Provider [phone] Rupal Isabel MD Unavailable [phone] Rekha Osborne MD Unavailable Mayuri Lyn RN Unavailable Michelle ColinW Unavailable Encounter Details Date Type Department Care Team (Late st Contact Info) Description 03/31/2020 Telephone [facility] [place]ound [place] [address] Wendy Storm, RDMS Social History [...] on file Legal Sex Male 1:53 AM COMMUNITY HEALTH SPECIALIST Gender Identity Male 10/02/2023 12:44 PM CDT Sexual Orientation Don't know 11/15/2020 1: 06 PM CDT documented as of this encounter Plan of Treatment Not on file documented as of this encounter Visit Diagnoses Not on filedocumented in this encounter Additional Health Concerns Infection Onset Date Last Indicated Resolved Time COVID: Suspected 04/21/2020 04/21/2020 04/21/2020 11:24 AM COMMUNITY HEALTH SPECIALIST Respiratory Infection (MICKEY), contact + droplet Comment:Automatically added due to negative COVID-19 result. 04/21/2020 04/21/2020 05/05/2020 3:0 6 AM COMMUNITY HEALTH SPECIALIST COVID: Suspected 04/21/2020 04/21/2020 04/21/2020 6:48 PM COMMUNITY HEALTH SPECIALIST COVID: Suspected 09/25/2020 09/25/2020 09/25/2020 10:11 AM CDT Rhino/Enterovirus 09/25/2020 09/25/2020 10/02/2020 3:05 AM CDT COVID: Recovered 11/29/2020 11/29/2020 03/29/2021 3:05 AM COMMUNITY HEALTH SPECIALIST COVID: Suspected 10/09/2021 10/09/2021 10/09/2021 9:37 AM CDT COVID: Suspected 03/06/2022 03/06/2022 03/06/2022 9:30 AM COMMUNITY HEALTH SPECIALIST RSV, droplet 03/06/2022 03/06/2022 03/13/2022 3:05 AM COMMUNITY HEALTH SPECIALIST COVID: Suspected 06/26/2022 06/26/2022 06/26/2022 5:59 PM CDT Coronavirus, droplet 06/26/2022 06/26/2022 023 3:06 AM CDT documented as of this encounter Care Teams Hris Coordinator Relationship Specialty Start Date End Date Zoila Gleason MD [address] [place] [address] PCP - General 09/29/16 Rupal Isabel MD 10 [facility] [address] [place] [address] Referring Physician Allergy and Immunology 01/11/19 Rekha Osborne MD [address] [place] [address] Medical Oncologist/Communication Lecturer Hematology 05/11/20 Mayuri Lyn, RN 4590 [facility] [address] [place] [address] SHOP Outpatient Cloth Reeler 12/04/20 01/04/21 Michelle Colin LCSW 4590 [facility] ([facility]) Mailstop [phone] [place] [address] SHOP Outpatient Cloth Reeler 10/19/21 11/16/21 documented as of this encounter
--- OUTSIDE RECORDS SUMMARY | 2024-12-25 12:19 | XMS_ITS | Encounter Summary ---
Author Organization [facility] Address [address] [place] [address] Phone Care Team Providers Care Rn Document Improvement Specialist Name Role Phone Zoila Gleason MD Primary Care Provider [phone] Rupal Isabel MD Unavailable [phone] Rekha Osborne MD Unavailable [phone] Mayuri Lyn RN Unavailable Michelle Colin PLANT TENDER Unavailable Encounter Details Date Type Department [...] on file Legal Sex Male 1:53 AM BURLAP SPREADER Gender Identity Male 10/02/2023 12:44 PM CDT [...] COVID: Recovered 11/29/2020 11/29/2020 03/29/2021 3:05 AM BURLAP SPREADER COVID: Suspected 10/09/2021 10/09/2021 10/09/2021 9:37 AM CDT COVID: Suspected 03/06/2022 03/06/2022 03/06/2022 9:30 AM BURLAP SPREADER RSV, droplet 03/06/2022 03/06/2022 03/13/2022 3:05 AM BURLAP SPREADER COVID: Suspected 06/26/2022 06/26/2022 06/26/2022 5:59 PM CDT Coronavirus, droplet 06/26/2022 06/26/2022 023 3:06 AM CDT documented as of this encounter Care Teams Rn Document Improvement Specialist Relationship Specialty Start Date End Date Zoila Gleason MD [address] [place] [address] PCP - General 09/29/16 Rupal Isabel MD [address] [place] [address] [facility] [address] [place] [address] Referring Physician Allergy and Immunology 01/11/19 Rekha Osborne MD [address] [place] [address] Medical Oncologist/Acid Concentrator Hematology 05/11/20 Mayuri Lyn, RN 4590 [facility] [address] [place] [address] SHOP Outpatient Fitness Studies Teacher 12/04/20 01/04/21 Michelle Colin LCSW 4590 [facility] ([facility]) Mailstop [phone] [place] [address] SHOP Outpatient Fitness Studies Teacher 10/19/21 11/16/21 documented as of this encounter
--- OUTSIDE RECORDS SUMMARY | 2024-12-25 12:19 | XMS_ITS | Encounter Summary ---
Author Organization [facility] Address [address] [place] [address] Phone Care Team Providers Care Fruit And Vegetable Factory Worker Name Role Phone Zoila Gleason MD Primary Care Provider Rupal Isabel MD Unavailable [phone] Rekha Osborne MD Unavailable [phone] Mayuri Lyn RN Unavailable Michelle Colin FIELD SERVICES ANALYST Unavailable Encounter Details Date Type Department [...] than three times a week 12/10/2020 Attends [employer]ical Services Not on file 12/10 Active Member [...] on file Legal Sex Male 1:53 AM INFRASTRUCTURE TECH Gender Identity Male 10/02/2023 12:44 PM [...] COVID: Recovered 11/29/2020 11/29/2020 03/29/2021 3:05 AM INFRASTRUCTURE TECH COVID: Suspected 10/09/2021 10/09/2021 10/09/2021 9:37 AM CDT COVID: Suspected 03/06/2022 03/06/2022 03/06/2022 9:30 AM INFRASTRUCTURE TECH RSV, droplet 03/06/2022 03/06/2022 03/13/2022 3:05 AM INFRASTRUCTURE TECH COVID: Suspected 06/26/2022 06/26/2022 06/26/2022 5:59 PM CDT Coronavirus, droplet 06/26/2022 06/26/2022 023 3:06 AM CDT documented as of this encounter Care Teams Fruit And Vegetable Factory Worker Relationship Specialty Start Date End Date Zoila Gleason MD [address] [place] [address] PCP - General 09/29/16 Rupal Isabel MD 10 [facility] [address] [place] [address] Referring Physician Allergy and Immunology 01/11/19 Rekha Osborne MD [address] [place] [address] Medical Oncologist/Biomass Power Plant Superintendent Hematology 05/11/20 [place]uri Lyn, RN 45[address] [facility] [address] [place] [address] SHOP Outpatient Fish Tender 12/04/20 01/04/21 Michelle Colin LCSW 4590 [facility] ([facility] Mailstop [phone] [place] [address] SHOP Outpatient Fish Tender 10/19/21 11/16/21 documented as of this encounter
--- OUTSIDE RECORDS SUMMARY | 2024-12-25 12:19 | XMS_ITS | Encounter Summary ---
Author Organization [facility] Address [address] [place] [address] Phone Care Team Providers Care Dust Collector Attendant Name Role Phone Zoila Gleason MD Primary Care Provider Rupal Isabel MD Unavailable Rekha Osborne MD Unavailable [phone] Mayuri Lyn RN Unavailable [phone] Michelle Colin SECURITY PUBLIC SAFETY OFFICER Unavailable [phone] Encounter Details Date Type Department Care Team [...] on file Legal Sex Male 1:53 AM ACQUISITIONS LIBRARIAN Gender Identity Male 10/02/2023 12:44 PM CDT [...] COVID: Suspected 04/21/2020 04/21/2020 04/21/2020 11:24 AM ACQUISITIONS LIBRARIAN Respiratory Infection (MICKEY), contact + droplet Comment:Automatically added due to negative COVID-19 result. 04/21/2020 04/21/2020 05/05/2020 3:0 6 AM ACQUISITIONS LIBRARIAN COVID: Suspected 04/21/2020 04/21/2020 04/21/2020 6:48 PM ACQUISITIONS LIBRARIAN COVID: Suspected 09/25/2020 09/25/2020 09/25/2020 10:11 AM CDT Rhino/Enterovirus 09/25/2020 09/25/2020 10/02/2020 3:05 AM CDT COVID: Recovered 11/29/2020 11/29/2020 03/29/2021 3:05 AM ACQUISITIONS LIBRARIAN COVID: Suspected 10/09/2021 10/09/2021 10/09/2021 9:37 AM CDT COVID: Suspected 03/06/2022 03/06/2022 03/06/2022 9:30 AM ACQUISITIONS LIBRARIAN RSV, droplet 03/06/2022 03/06/2022 03/13/2022 3:05 AM ACQUISITIONS LIBRARIAN COVID: Suspected 06/26/2022 06/26/2022 06/26/2022 5:59 PM CDT Coronavirus, droplet 06/26/2022 06/26/202207/03/ 023 3:06 AM CDT documented as of this encounter Care Teams Dust Collector Attendant Relationship Specialty Start Date End Date Zoila Gleason MD [address] [place] [address] PCP - General 09/29/16 Rupal Isabel MD 10 [facility] [address] [place] [address] Referring Physician Allergy and Immunology 01/11/19 Rekha Osborne MD [address] [place] [address] Medical Oncologist/Icu Manager Hematology 05/11/20 [place]uri Lyn, RN 4590 [facility] [place] [address] [place] [address] SHOP Outpatient Wood Machinist Apprentice 12/04/20 01/04/21 Michelle Colin SECURITY PUBLIC SAFETY OFFICER 4590 [facility] ([facility] Mailstop [phone] [place] [address] SHOP Outpatient Wood Machinist Apprentice 10/19/21 11/16/21 documented as of this encounter
--- OUTSIDE RECORDS SUMMARY | 2024-12-25 12:19 | XMS_ITS | Clinical Summary ---
Author Organization [facility] ospital Address [address] [place] [address] Care Team Providers Care Computer Operations Analyst Name Role Phone Zoila Gleason MD Primary Care Provider [phone] Rupal Isabel MD Unavailable [phone] Rekha Osborne MD Unavailable [phone] Allergies Active Allergy Reactions Criticality Noted Date [...] Never used. 07/07/[address] [facility] spacer USE WITH INHALER DIRECTED 09/25/19 [...] 1 tablet (112 mcg total) by mouth evening anchor before breakfast 03/10/20 23 Active Solu-CORTEF Act-O-Vial, [...] food 90 tablet 3 05/24/19 25 Active Additional Information Patient taking differently:20 mg oralAs needed, Administer with food, Reported on 12/12/2024 Michaeltri Aerosphere 160-9-4.8 mcg/actuation inhaler Inhale 2 puffs 2 (two) times a day 08/13/19 25 Active testosterone 20.25 mg/1.25 gram (1.62 %) gel in metered-dose pumpIndications:M natali Hypogonadism Place 40.5 mg on the skin daily 225 g 1 10/09/19 25 025 Active fluorouraciL (EFUDEX) 5 % cream 5-Fluorouracil 5% / Salicylic Acid 70%. Paste apply a thin layer to warts daily under occlusion Reasons: Common Wart, warts 11/21/19 25 Active mometasone (Asmanex HFA) 200 mcg/actuation inhaler Inhale 2 puffs 2 (two) times a day 02/17/20 24 Active nystatin 100,000 unit/mL suspension Take 5 mL (500,000 Units total) by mouth as needed 10/21/19 22 Active ofloxacin (FLOXIN) 0.3 % otic solution as needed 10/24/19 25 Active valACYclovir (VALTREX) 500 mg tablet Take 1 tablet (500 mg total) by mouth as needed 07/01/19 25 Active UNABLE TO FIND Nasal inhaler A ctive sodium chloride 3 % nebulizer solution Take 4 mL by nebulization 2 (two) times a day 240 mL 5 12/13/19 25 Active Active Problems Problem Noted Date [...] stooling. -As of 12/18/23 at 1300, per [facility] [phone] - E. Coli. -Repeat blood cultures NGTD -Received cefepime; changed to cefuroxime to complete a 7 day course. Source is suspected to be UTI -TTE neg for vegetations Leukocytosis 12/17/2023 Assessment & Plan (12/17/2023 8:50 PM CDT): CBC at [facility] 12/15 WBC 20.5 (81% neutrophils). 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 Hgb now [...] cytopenia, his initial presentation [facility]ocytopenia [facility] was in 2012 (17 yo) with [...] responded to steroid and rituximab last time ([id number]). During his last admission for UTI, he [...] bid - received stress dose steroids at [facility] - continue pred 5 BID - per [...] an anti-21 hydroxylase antibody to rule out Roosevelt's as well as a low dose ACTH stim test at some point after 72 hours from last stress dose. He is very well appearing and does not have an indication for stress dosing at this time. - send anti-21 hydroxylase antibody (red top 2 ml) 2107 to [facility] - consider ACTH stim test this admission [...] obtain anti-21 hydroxylase Ab to rule out Roosevelt's disease. Assessment & Plan (12/29/2019 8:18 AM [...] on 11/07. CVID (common variable immunodeficiency) ([facility] ) 04/16/2018 Assessment & Plan [...] AM CDT): Stable. Followed by endocrinology at [facility]. Currently on 150 mcg levothyroxine daily. [...] Avoid concomitant administration of Levothyroxine with patient's DOCUMENTATION NURSE iron. Separate dosing by at least 4 hours. Pediatric Endocrinology will continue to follow. 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 Overview (05/14/2020): Autoimmune anemia, [...] Decrease PO Dilaudid to 2mg q6h - 89 - Continue PO Ativan 1 mg q6h [...] Encounters Date Type Department Care Team Description 12/12/2024 8:30 AM CDT Office Visit [facility] Medicine Pulmonary [address] [place] [address] [place] [address] Jam Sands MD 11/28/2024 [facility] [address] [place] [address] [place] [address] Jam Sands MD 11/21/2024 Telephone [facility] Medicine Pulmonary [address] [place] [address] [place] [address] Ana Laura Hall CMA 11/20/2024 12:40 PM CDT - 11/20/2024 11:59 PM CDT Hospital Encounter [facility] ([facility]) [address] [place] [address] Diagnosis unknown Discharge Disposition: Discharge to home or self care 11/05/2024 12:47 PM CDT - 11/05/2024 11:59 PM CDT Hospital Encounter [facility] ([facility]) [address] [place] [address] Discharge Disposition: Discharge to home or self care 11/05/2024 Telephone [facility] Medicine Pulmonary [address] [place] [address] [place] [address] Mia Castillo, ZOFIA 10/03/2024 Telephone [facility] Medicine Endocrinology Metabolism and Lipid [address] [facility] [address] [place] [address] Ciarra Cox, ZOFIA from Last 3 Months Immunizations Immunization Administration [...] COVID-19 10/2019 Clotting disorder Heart disease s/p AK secondary to severe anemia GI (gastrointestinal bleed) Acute respiratory failure wi th hypoxia (HCC) 08/20/2022 Family History Medical History Relation Name Comments Cancer Father Aidan Ch Aylin Hyperlipidemia Father Aidan Ch Aylin Hypertension Father Adian Ch Aylin Thyroid disease Mother Early Paternal [...] any clubs o r organizations such as hindu groups, unions, fraternal or athletic groups, or [...] on file Legal Sex Male 1:53 AM CAMPUS SUPERVISOR Gender Identity Male 10/02/2023 12:44 PM CDT Sexual Orientation Don't know 11/15/2020 1: 06 PM CDT Obstetrics History Last Filed Vital Signs Vital Sign Reading Time Taken Comments Blood Pressure 90/52 12/12/2024 8:32 AM CDT Pulse 78 12/12/2024 8:32 AM CDT Temperature 36.7 C (98 F) 12/12/2024 8:32 AM CDT Respiratory Rate 18 12/12/2024 8:32 AM CDT Oxygen Saturation 97% 12/12/2024 8:32 AM CDT Inhaled Oxygen Concentration - - Weight 57.6 kg (127 lb) 12/12/2024 8:32 AM CDT Height 162.6 cm (5' 4) 12/12/2024 8:32 AM CDT Body Mass Index 21.8 12/12/2024 8:32 AM CDT Plan of Treatment Health Maintenance Due Date [...] 01/06/2021 11/11/2020, 12/18/2012 Covid-19 Vaccine (4 - 2024-2 6 season) 2024 02/17/2021, 01/27/2021, 06/08/2020 Influenza Vaccine (#1) 2024 , 12/29/2022, 02/03/2022, Additional history exists Meningococcal B Vaccine (3 o f 4 - Increased Risk Bexsero 3-dose series) 01/11/2025 01/12/2024, 01/19/2023, 10/08/2022, Additional history exists Hepatitis B Screening Completed 01/12/1999 , 03/17/1998, 1997 Hepatitis C Screening Completed 11/28/2020 Procedures Procedure Name Priority Date/Time Associated Diagnosis Comments CT BODY OUTSIDE CONSULT Routine 11/20/2024 12:40 PM CDT Diagnosis unknown CT BODY OUTSIDE REFERENCE Routine 11/05/2024 12:47 PM CDT HEPATITIS PANEL, ACUTE Routine 11/28/2020 5:33 PM CDT from Last 3 Months or Most Recently Relevant to Health Maintenance Results * CT Body Outside Consult (11/20/2024 12:40 PM CDT) Anatomical Region Laterality Modality Body N/A Computed Tomogra phy 11/21/2024 8:30 AM CDT Impressions 11/21/2024 8:41 AM CDT Bronchiectasis and small scattered pulmonary nodules likely related to bronchiolitis. The findings, conclusions and recommendations within this report do not replace the initial findings, conclusions and recommendations made at the facility where the study was performed based upon the imaging and clinical condition at that time. Comparison with the prior report and clinical history is necessary. The provided images may or may not represent the chilkat source data set and thus may contain changes that may lower the accuracy of this second-opinion interpretation. Dictated by: Marsha Duval M.D. The radiology attending physician has personally reviewed this study, and had reviewed and/or edited this written report and agrees with it. Electronically signed by: Aura Jon M.D. Narrative 11/21/2024 8:41 AM CDT EXAMINATION: RADIOLOGY CONSULTATION ON OUTSIDE IMAGING STUDY STUDY INITIALLY PERFORMED: 11/04/2024 at [facility]. TYPE OF STUDY: Multiple CT images of the chest without intravenous contrast are provided at the time of this interpretation. CONTRAST ROUTE: No contrast was administered. The protocol was adequate to address the clinical question. The outside final report was not available at the time of this second opinion interpretation. TYPE OF CONSULTATION: Consult on outside imaging study with images submitted through Outside Image Sharing Service DATE OF CONSULTATION: 11/21/2024 8:06 AM HISTORY: 28 y.o. 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 FINDINGS: Redemonstrated multiple pulmonary cysts throughout both lungs, not significantly changed since prior studies likely related to lymphocytic interstitial pneumonia. Redemonstrated small pulmonary nodules in the lungs bilaterally with bronchiectasis, likely related to bronchiolitis. No evidence of focal consolidation. Mildly dilated and thickened bronchi are noted which may relate to bronchitis. No pleural effusions or pneumothorax. There redemonstrated extensive lymphadenopathy in in the supraclavicular, axillary or mediastinal regions. The lymphadenopathy in the axillary regions appears increased since prior study are measuring up to 1.5 cm in the left axillary region, previously 1.2 cm. There is mild decrease in the size of mediastinal lymph nodes with a upper right paratracheal lymph node measuring approximately 1.4 cm, previously 2.0 cm. There is a patulous appearance of the esophagus. Changes of prior splenectomy in the left upper abdominal quadrant. A few upper abdominal enlarged lymph nodes are partially visualized and not significantly changed. Procedure Note Aura Jon MD - 11/21/2024 EXAMINATION: RADIOLOGY CONSULTATION ON OUTSIDE IMAGING STUDY STUDY INITIALLY PERFORMED: 11/04/2024 at [facility]. TYPE OF STUDY: Multiple CT images of the chest without intravenous contrast are provided at the time of this interpretation. CONTRAST ROUTE: No contrast was administered. The protocol was adequate to address the clinical question. The outside final report was not available at the time of this second opinion interpretation. TYPE OF CONSULTATION: Consult on outside imaging study with images submitted through Outside Image Sharing Service DATE OF CONSULTATION: 11/21/2024 8:06 AM HISTORY: 28 y.o. 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 FINDINGS: Redemonstrated multiple pulmonary cysts throughout both lungs, not significantly changed since prior studies likely related to lymphocytic interstitial pneumonia. Redemonstrated small pulmonary nodules in the lungs bilaterally with bronchiectasis, likely related to bronchiolitis. No evidence of focal consolidation. Mildly dilated and thickened bronchi are noted which may relate to bronchitis. No pleural effusions or pneumothorax. There redemonstrated extensive lymphadenopathy in in the supraclavicular, axillary or mediastinal regions. The lymphadenopathy in the axillary regions appears increased since prior study are measuring up to 1.5 cm in the left axillary region, previously 1.2 cm. There is mild decrease in the size of mediastinal lymph nodes with a upper right paratracheal lymph node measuring approximately 1.4 cm, previously 2.0 cm. There is a patulous appearance of the esophagus. Changes of prior splenectomy in the left upper abdominal quadrant. A few upper abdominal enlarged lymph nodes are partially visualized and not significantly changed. IMPRESSION: Bronchiectasis and small scattered pulmonary nodules likely related to bronchiolitis. The findings, conclusions and recommendations within this report do not replace the initial findings, conclusions and recommendations made at the facility where the study was performed based upon the imaging and clinical condition at that time. Comparison with the prior report and clinical history is necessary. The provided images may or may not represent the chilkat source data set and thus may contain changes that may lower the accuracy of this second-opinion interpretation. Dictated by: Marsha Duval M.D. The radiology attending physician has personally reviewed this study, and had reviewed and/or edited this written report and agrees with it. Electronically signed by: Aura Jno M.D. us Jam Sands MD [facility] [place] PROCEDURES Fi nal Result * CT Body Outside Reference (11/05/2024 12:47 PM CDT) Impressions [facility] - 11/05/2024 12:47 PM CDT These images are for Reference purposes only and have not been reviewed by [facility] Radiology. There will be no report generated by a [facility] Radiologist. Narrative [facility]_P[facility] - 11/05/2024 12:47 PM CDT EXAMINATION: Images For Reference Purposes Only us Jam Sands MD IM CT PROCEDURES Fi nal Result [facility] Hepatitis panel, acute (11/28/2020 5:33 PM CDT) Hep A IgM Nonreactive Nonreactive [facility] Comment: Interpretive Data: If Hep A IgM Ab is reported as Equivocal, a new sample should be drawn in two weeks for testing. Current interpretive data was last revised on 19. Hep B core IgM Nonreactive Nonreactive [facility] Comment: Interpretive Data If HepB Core IgM Ab is reported as Equivocal, a new sample should be drawn in two weeks for testing. Current interpretive data was last revised on 19. Hep C Ab Nonreactive Nonreactive [facility] Comment:Antibodies to HCV no t detected. Does NOT exclude the possibility of recent exposure to HCV. HepBsAg Nonreactive Nonreactive [facility] Blood 11/28/2020 5:33 PM CDT 11/28/2020 5:53 PM CDT Jazzmine Mccartney NP LAB MICROBIO LOGY - GENERAL ORDERABLES Edited Result - Final [facility] Department [place] [address] from Last 3 Months or Most Recently Relevant to Health Maintenance [place] [facility] CHOICE PLUS [place] ACC[place] P[place] [facility] CHOICE PLUS [place] OPEN ACCESS [place]PA [facility] [place] [facility] OPEN ACCESS [facility] CHOICE PLUS Advance Directives For more information, please contact: [phone] Documents on File Type Date Recorded Patient Medical Records Coder Expl anation Power of Director Of Manufacturing Operations 10/21/2021 12:58 PM ADVANCE DIRECTIVE 10/14/2019 12:35 [...] 5:09 PM 01/02/2021 6:56 PM Care Teams Computer Operations Analyst Relationship Specialty Start Date End Date Zoila Gleason MD [address] [place] [address] PCP - General 09/29/16 Rupal Isabel MD [address] [place] [address] [address] Referring Physician Allergy and Immunology 01/11/19 Rekha Osborne MD [address] [place] [address] Medical Oncologist/Correction Warden Hematology 05/11/20
--- OUTSIDE RECORDS SUMMARY | 2024-12-25 12:19 | XMS_ITS | Encounter Summary ---
Author Organization [facility] Address [address] [place] [address] Phone Care Team Providers Care Agile Scrum Coach Name Role Phone Zoila Gleason MD Primary Care Provider [phone] Rupal Isabel MD Unavailable [phone] Rekha Osborne MD Unavailable [phone] Michelle Colin [facility] Unavailable [phone] Encounter Details Date Type Department Care Team [...] than three times a week 12/10/2020 Attends [employer] Not on file 12/10 Active [...] file Legal Sex Male 1:53 AM GUT SORTER Gender Identity Male 10/02/2023 12:44 PM CDT [...] Suspected 03/06/2022 03/06/2022 03/06/2022 9:30 AM GUT SORTER RSV, droplet 03/06/2022 03/06/2022 03/13/2022 3:05 AM GUT SORTER COVID: Suspected 06/26/2022 06/26/2022 06/26/2022 5:59 PM CDT Coronavirus, droplet 06/26/2022 06/26/2022 023 3:06 AM CDT documented as of this encounter Care Teams Agile Scrum Coach Relationship Specialty Start Date End Date Zoila Gleason MD [address] [address] PCP - General 09/29/16 Rupal Isabel MD [address] [facility] [address] [place] [address] Referring Physician Allergy and Immunology 01/11/19 Rekha Osborne MD [address] [place], [place] [id number] Medical Oncologist/Clinical Cytogenetics Director Hematology 05/11/20 Michelle Colin LCSW [address] [facility] ([facility] Mailstop [phone] [place] [address] [facility] Outpatient Rangeland Management Specialist 10/19/21 11/16/21 documented as of this encounter
--- OUTSIDE RECORDS SUMMARY | 2024-12-25 12:19 | XMS_ITS | Encounter Summary ---
Author Organization [facility] Address [address] [place] [address] Phone Care Team Providers Care Multiple Cut Off Saw Operator Name Role Phone Zoila Gleason MD Primary Care Provider Rupal Isabel MD Unavailable Rekha Osborne MD Unavailable [phone] Mayuri Lyn RN Unavailable Michelle Colin BUSINESS PERFORMANCE ANALYST Unavailable [phone] Encounter Details Date Type Department Care Team [...] on file Legal Sex Male 1:53 AM ENERGY EFFICIENCY SPECIALIST Gender Identity Male 10/02/2023 12:44 PM [...] COVID: Suspected 04/21/2020 04/21/2020 04/21/2020 11:24 AM ENERGY EFFICIENCY SPECIALIST Respiratory Infection (MICKEY), contact + droplet Comment:Automatically added due to negative COVID-19 result. 04/21/2020 04/21/2020 05/05/2020 3:0 6 AM ENERGY EFFICIENCY SPECIALIST COVID: Suspected 04/21/2020 04/21/2020 04/21/2020 6:48 PM ENERGY EFFICIENCY SPECIALIST COVID: Suspected 09/25/2020 09/25/2020 09/25/2020 10:11 AM CDT Rhino/Enterovirus 09/25/2020 09/25/2020 10/02/2020 3:05 AM CDT COVID: Recovered 11/29/2020 11/29/2020 03/29/2021 3:05 AM ENERGY EFFICIENCY SPECIALIST COVID: Suspected 10/09/2021 10/09/2021 10/09/2021 9:37 AM CDT COVID: Suspected 03/06/2022 03/06/2022 03/06/2022 9:30 AM ENERGY EFFICIENCY SPECIALIST RSV, droplet 03/06/2022 03/06/2022 03/13/2022 3:05 AM ENERGY EFFICIENCY SPECIALIST COVID: Suspected 06/26/2022 06/26/2022 06/26/2022 5:59 PM CDT Coronavirus, droplet 06/26/2022 06/26/2022 023 3:06 AM CDT documented as of this encounter Care Teams Multiple Cut Off Saw Operator Relationship Specialty Start Date End Date Zoila Gleason MD [address] [place] [address] PCP - General 09/29/16 Rupal Isabel MD [address] [place] [address] [address] Referring Physician Allergy and Immunology 01/11/19 Rekha Osborne MD [address] [place] [address] Medical Oncologist/Licensed Direct Entry Midwife Hematology 05/11/20 Mayuri Lyn, RN [address] [facility] [address] [place] [address] SHOP Outpatient Yard Stocker 12/04/20 01/04/21 Michelle Colin [facility] [address] [facility] ([facility] Mailstop [phone] [place] [address] SHOP Outpatient Yard Stocker 10/19/21 11/16/21 documented as of this encounter
--- OUTSIDE RECORDS SUMMARY | 2024-12-25 12:19 | XMS_ITS | Encounter Summary ---
Author Organization [facility] Address [address] [place] [address] Phone Care Team Providers Care Community Health Nursing Director Name Role Phone Zoila Glaeson MD Primary Care Provider [phone] Rupal Isabel MD Unavailable [phone] Rekha Osborne MD Unavailable [phone] Mayuri Lyn RN Unavailable Michelle Colin PROFESSOR OF GERMAN Unavailable [phone] Encounter Details Date Type Department Care Team [...] on file Legal Sex Male 1:53 AM AIRCRAFT ENGINE SPECIALIST Gender Identity Male 10/02/2023 12:44 PM [...] COVID: Recovered 11/29/2020 11/29/2020 03/29/2021 3:05 AM AIRCRAFT ENGINE SPECIALIST COVID: Suspected 10/09/2021 10/09/2021 10/09/2021 9:37 AM CDT COVID: Suspected 03/06/2022 03/06/2022 03/06/2022 9:30 AM AIRCRAFT ENGINE SPECIALIST RSV, droplet 03/06/2022 03/06/2022 03/13/2022 3:05 AM AIRCRAFT ENGINE SPECIALIST COVID: Suspected 06/26/2022 06/26/2022 06/26/2022 5:59 PM CDT Coronavirus, droplet 06/26/2022 06/26/2022 023 3:06 AM CDT documented as of this encounter Care Teams Community Health Nursing Director Relationship Specialty Start Date End Date Zoila Gleason MD [address] [place] [address] PCP - General 09/29/16 Rupal Isabel MD [address] [place] [address] [address] [place] [address] Referring Physician Allergy and Immunology 01/11/19 Rekha Osborne MD [address] [place] [address] Medical Oncologist/Lvn Hematology 05/11/20 Mayuri Lyn, RN [address] [facility] [address] [place] [address] SHOP Outpatient Printer Floor Covering Assistant 12/04/20 01/04/21 Michelle Colin LCSW [address] [facility] ([facility] Mailstop [phone] [place] [address] SHOP Outpatient Printer Floor Covering Assistant 10/19/21 11/16/21 documented as of this encounter
--- OUTSIDE RECORDS SUMMARY | 2024-12-25 12:19 | XMS_ITS | Encounter Summary ---
Author Organization [facility] Address [address] [place] [address] Phone Care Team Providers Care Ornamental Bronze Worker Name Role Phone Zoila Gleason MD Primary Care Provider Rupal Isabel MD Unavailable [phone] Rekha Osborne MD Unavailable [phone] Mayuri Lyn RN Unavailable [phone] Michelle Colin GRADING SUPERVISOR Unavailable Encounter Details Date Type Department Care [...] on file Legal Sex Male 1:53 AM ANODE BUILDER Gender Identity Male 10/02/2023 12:44 PM [...] COVID: Recovered 11/29/2020 11/29/2020 03/29/2021 3:05 AM ANODE BUILDER COVID: Suspected 10/09/2021 10/09/2021 10/09/2021 9:37 AM CDT COVID: Suspected 03/06/2022 03/06/2022 03/06/2022 9:30 AM ANODE BUILDER RSV, droplet 03/06/2022 03/06/2022 03/13/2022 3:05 AM ANODE BUILDER COVID: Suspected 06/26/2022 06/26/2022 06/26/2022 5:59 PM CDT Coronavirus, droplet 06/26/2022 06/26/2022 023 3:06 AM CDT documented as of this encounter Care Teams Ornamental Bronze Worker Relationship Specialty Start Date End Date Zoila Gleason MD [address] [place] [address] PCP - General 09/29/16 Rupal Isabel MD [address] [place] [address] [address] [place] [address] Referring Physician Allergy and Immunology 01/11/19 Rekha Osborne MD [address] [place] [address] Medical Oncologist/Air Technician Hematology 05/11/20 Mayuri Lyn, RN 45[address] [facility] [address] [place] [address] SHOP Outpatient Toolsmith 12/04/20 01/04/21 Michelle Colin LCSW 4590 [facility] ([facility] [place] Mailstop [phone] [place] [address] SHOP Outpatient Toolsmith 10/19/21 11/16/21 documented as of this encounter
--- OUTSIDE RECORDS SUMMARY | 2024-12-25 12:19 | XMS_ITS | Encounter Summary ---
Author Organization [facility] Address [address] [place] [address] Phone Care Team Providers Care Tying Machine Operator Name Role Phone Zoila Gleason MD Primary Care Provider Rupal Isabel MD Unavailable [phone] Rekha Osborne MD Unavailable [phone] Mayuri Lyn RN Unavailable Michelle Colin TABLE SETTER Unavailable Encounter Details Date Type Department Care [...] on file Legal Sex Male 1:53 AM MINER HELPER Gender Identity Male 10/02/2023 12:44 PM [...] COVID: Recovered 11/29/2020 11/29/2020 03/29/2021 3:05 AM MINER HELPER COVID: Suspected 10/09/2021 10/09/2021 10/09/2021 9:37 AM CDT COVID: Suspected 03/06/2022 03/06/2022 03/06/2022 9:30 AM MINER HELPER RSV, droplet 03/06/2022 03/06/2022 03/13/2022 3:05 AM MINER HELPER COVID: Suspected 06/26/2022 06/26/2022 06/26/2022 5:59 PM CDT Coronavirus, droplet 06/26/2022 06/26/2022 023 3:06 AM CDT documented as of this encounter Care Teams Tying Machine Operator Relationship Specialty Start Date End Date Zoila Gleason MD [address] [place] [address] PCP - General 09/29/16 Rupal Isabel MD [address] [place] [address] [address] [place] [address] Referring Physician Allergy and Immunology 01/11/19 Rekha Osborne MD [address] [place] [address] Medical Oncologist/Tablet Coater Hematology 05/11/20 Mayuri Lyn, RN 4590 [facility] [address] [place] [address] SHOP Outpatient Final Finisher 12/04/20 01/04/21 Michelle Colin LCSW 4590 [facility] ([facility] [place] Mailstop [phone] [place] [address] SHOP Outpatient Final Finisher 10/19/21 11/16/21 documented as of this encounter
--- OUTSIDE RECORDS SUMMARY | 2024-12-25 12:19 | XMS_ITS | Clinical Summary ---
Author Organization [facility] Address [address] [place] [address] Care Team Providers Care Motor Equipment Commanding Officer Name Role Phone Tennille Gleason Primary Care Provider [phone] Source Comments [facility],non-owned Affiliates and Associated Physician Practices is amultiple site organization consisting of ambulatory clinics and hospital sitesin [place], [place], [place] and [place]. This disclosure is being madepursuant to the Care Everywhere program and may not contain all information available regarding this patient. Last updated 17.[facility] Allergies Active Allergy Reactions Criticality Noted Date Comments Gluten Meal Diarrhea,Unknown 04/16/2018 Celiacs Medications * Be aware that medications may not be up to date on this document. Alwaysverify current medications with the patient. sertraline (Zoloft) 100 MG tablet Take 1 (one) tablet by mouth at bedtime 5 Active valACYclovir (Valtrex) 500 MG tablet Take 1 (one) tablet by mouth as needed 5 Active albuterol HFA (Proventil; Ventolin; Proair) 108 (90 Base) MCG/ACT inhaler Inhale 2 (two) puffs by mouth every 4 hours as needed Active albuterol (Proventil;Vent fish) (2.5 MG/3ML) 0.083% nebulizer solution Inhale 2.5 (two and one-half) mg by mouth as needed 5 Active avatrombopag (Doptelet) 20 MG tablet Take 1 (one) tablet by mouth once daily 5 Active Breztri Aerosphere 160-9-4.8 MCG/ACT inhaler Inhale 2 (two) puffs by mouth 2 times daily 5 Active cefdinir (Omnicef) 300 MG capsule Take 1 (one) capsule by mouth every 12 hours 5 Active dexAMETHasone (Decadron) 4 MG tablet Take 1 (one) tablet by mouth as needed 5 Active Docusate Sodium (DSS) 100 MG Take 100 mg by mouth once daily Active folic acid 800 MCG tablet Take 0.5 (one-half) tablet by mouth every morning Active Solu-CORTEF injection Inject 100 (one hundred) mg into muscle as needed 4 Active Atrovent HFA 17 MCG/ACT inhaler Inhale 2 (two) puffs by mouth once daily 4 Active mirtazapine (Remeron) 15 MG tablet Take 1 (one) tablet by mouth at bedtime prn 5 Active Asmanex HFA 200 MCG/ACT Inhale 2 puffs by mouth 2 times daily 4 Active ondansetron, disintegrating, (Zofran ODT) 4 MG tablet Take 1 (one) tablet by mouth every 8 hours as needed 4 Active prednisoLONE 5 MG tablet Take 1 (one) tablet by mouth once daily 4 Active predniSONE (Deltasone) 1 MG tablet Take 1 (one) tablet by mouth once daily 4 Active Testosterone 1.62 % GEL Apply 40.5 mg to skin once daily 5 01/07/20 25 Active fluorouracil (Efudex) 5 % creamIndication s:Verruca Vulgaris,warts 5-Fluorouracil 5% / Salicylic Acid 70%. Paste apply a thin layer to warts daily under occlusion Reasons: Common Wart, warts 15 g 5 5 Active Encounters Date Type Department Care Team Description 12/25/2024 Telephone [facility] - General Dermatology [address], [facility] [address] [place] [address] Joaquim Qureshi PA-C Reschedule Appointment 12/25/2024 Travel 11/20/2024 9:00 AM CDT Office Visit [facility] - Dermatology [address] [facility] [place] [address] Ele Parada MD Verruca vulgaris (Primary Dx); Other viral warts 11/20/2024 Travel from Last 3 Months Social History Tobacco Use Types Packs/Day Years Used Date Smoking Tobacco: Never Assessed Sex and Gender Information Value Date Recorded Sex Assigned at Not on file Legal Sex Male 11:21 AM CDT Gender Identity Not on file Sexual Orientation Not on file Plan of Treatment Upcoming Encounters Date Type Department Care Team (Late st Contact Info) Description 04/09/2025 3:40 PM TRACTOR TRAILER MECHANIC Office Visit [facility] - General Dermatology [address], [place] [address] [place] [address] Joaquim Qureshi PA-C [address] [facility] [address] [place] [address] Health Maintenance Due Date Last Done Comments HIV SCREENING 2012 HEPATITIS C SCREENING 09/26/2015 DTAP/TDAP/TD VACCINES (1 - Tdap) 2016 HEPATITIS B VACCINE (1 of 3 - 19+ 3-dose series) 2016 DEPRESSION SCREENING 04/03/2024 HPV VACCINE (1 - 3-dose SCDM series) 2024 COVID-19 VACCINE (4 - season) 2024 02/17/2021, 01/27/2021, 06/08/2020 INFLUENZA VACCINE (#1) 2024 , 12/29/2022, 02/03/2022, Additional history exists ZOSTER VACCINE (1 of 2) 10/01/2047 HIB VACCINE Aged Out No longer eligi ble based on patient's age to complete this topic MENINGOCOCCAL (Group B) VACCINE SHARED DECISION-MAKING Aged Out No longer eligible based on patient's age to complete this topic MENINGOCOCCAL GROUPS A/C/Y/W VACCINE Aged Out No longer eligible based on patient's age to complete this topic PNEUMOCOCCAL VACCINE Aged Out No long er eligible based on patient's age to complete this topic Procedures Procedure Name Priority Date/Time Associated Diagnosis Comments [place] DESTRUCT BENIGN LESION, 1-14 Routine 11/20/2024 9:45 AM CDT Verruca vulgaris from Last 3 Months Results * [place] DESTRUCT BENIGN LESION, 1-14 (11/20/2024 9:45 AM CDT) Ele Vallejo MD - 11/20/2024 9:45 AM CDT Ele Parada MD 11/20/2024 12:50 PM Diagnosis and treatment options discussed. Cryotherapy (Liquid Nitrogen) to 11 viral warts x 10 seconds each. Number of cycles: 2. Wound care reviewed. Ele Parada MD PROCEDURE/MINOR SURGICAL ORD ERABLES Edited Result - Final from Last 3 Months Insurance MEDICAID - [place] FORMERLY [facility] Care Teams Motor Equipment Commanding Officer Relationship Specialty Start Date [place] PCP - General 11/20/24
--- OUTSIDE RECORDS SUMMARY | 2024-12-25 12:19 | XMS_ITS | Encounter Summary ---
Author Organization [facility] Address [address] [place] [address] Phone Care Team Providers Care Energy Infrastructure Engineer Name Role Phone Zoila Gleason MD Primary Care Provider Rupal Isabel MD Unavailable [phone] Rekha Osborne MD Unavailable [phone] Mayuri Lyn RN Unavailable [phone] Michelle Colin ETHOLOGIST Unavailable [phone] Encounter Details Date Type Department Care Team [...] on file Legal Sex Male 1:53 AM GRADUATE RESEARCH ASSISTANT Gender Identity Male 10/02/2023 12:44 [...] COVID: Recovered 11/29/2020 11/29/2020 03/29/2021 3:05 AM GRADUATE RESEARCH ASSISTANT COVID: Suspected 10/09/2021 10/09/2021 10/09/2021 9:37 AM CDT COVID: Suspected 03/06/2022 03/06/2022 03/06/2022 9:30 AM GRADUATE RESEARCH ASSISTANT RSV, droplet 03/06/2022 03/06/2022 03/13/2022 3:05 AM GRADUATE RESEARCH ASSISTANT COVID: Suspected 06/26/2022 06/26/2022 06/26/2022 5:59 PM CDT Coronavirus, droplet 06/26/2022 06/26/2022 023 3:06 AM CDT documented as of this encounter Care Teams Energy Infrastructure Engineer Relationship Specialty Start Date End Date Zoila Gleason MD [address] [place], [place] [address] PCP - General 09/29/16 Rupal Isabel MD [address] [facility] [address] [place], [place] [address] Referring Physician Allergy and Immunology 01/11/19 Rekha Osborne MD [address] [place], [place] [id number] Medical Oncologist/Stretcher Helper Hematology 05/11/20 Mayuri Lyn, RN 4590 [facility] [address] [place] [address] SHOP Outpatient Lining Sewer 12/04/20 01/04/21 Michelle Colin, ROSALIE 4590 [facility] ([facility] [place] Mailstop [phone] [place] [address] SHOP Outpatient Lining Sewer 10/19/21 11/16/21 documented as of this encounter
--- OUTSIDE RECORDS SUMMARY | 2024-12-25 12:19 | XMS_ITS | Encounter Summary ---
Author Organization [facility] Address [address] [place] [address] Phone Care Team Providers Care Cloth Cutting Machine Operator Name Role Phone Zoila Gleason MD Primary Care Provider Rupal Isabel MD Unavailable [phone] Rekha Osborne MD Unavailable [phone] Mayuri Lyn RN Unavailable Michelle Colin OUTSIDE SALES EXECUTIVE Unavailable Encounter Details Date Type Department Care [...] on file Legal Sex Male 1:53 AM STEM LEAD FORMER Gender Identity Male 10/02/2023 12:44 PM CDT [...] COVID: Suspected 04/21/2020 04/21/2020 04/21/2020 11:24 AM STEM LEAD FORMER Respiratory Infection (MICKEY), contact + droplet Comment:Automatically added due to negative COVID-19 result. 04/21/2020 04/21/2020 05/05/2020 3:0 6 AM STEM LEAD FORMER COVID: Suspected 04/21/2020 04/21/2020 04/21/2020 6:48 PM STEM LEAD FORMER COVID: Suspected 09/25/2020 09/25/2020 09/25/2020 10:11 AM CDT Rhino/Enterovirus 09/25/2020 09/25/2020 10/02/2020 3:05 AM CDT COVID: Recovered 11/29/2020 11/29/2020 03/29/2021 3:05 AM STEM LEAD FORMER COVID: Suspected 10/09/2021 10/09/2021 10/09/2021 9:37 AM CDT COVID: Suspected 03/06/2022 03/06/2022 03/06/2022 9:30 AM STEM LEAD FORMER RSV, droplet 03/06/2022 03/06/2022 03/13/2022 3:05 AM STEM LEAD FORMER COVID: Suspected 06/26/2022 06/26/2022 06/26/2022 5:59 PM CDT Coronavirus, droplet 06/26/2022 06/26/2022 023 3:06 AM CDT documented as of this encounter Care Teams Cloth Cutting Machine Operator Relationship Specialty Start Date End Date Zoila Gleason MD [address] [address] PCP - General 09/29/16 Rupal Isabel MD [address] [place] [address] [address] Referring Physician Allergy and Immunology 01/11/19 Rekha Osborne MD [address] [place] [address] Medical Oncologist/Perinatal Technician Hematology 05/11/20 Mayuri Lyn, RN 4590 [facility] [address] [place] [address] SHOP Outpatient Machine Strap Buckler 12/04/20 01/04/21 Michelle Colin [facility] [address] [facility] ([facility] Mailstop [phone] [place] [address] SHOP Outpatient Machine Strap Buckler 10/19/21 11/16/21 documented as of this encounter
[2024-12-25 19:02] LABS: Add Urine Microscopic? YES; Appearance Urine Turbid (Clear); Glucose Urine UA Negative (Negative); Leukocyte Esterase Ur 3+ LEU/UL (Negative); Nitrate Urine Negative (Negative); Specific Grav Ur 1.021 (1.001-1.035)
[2024-12-25 19:10] LABS: Alanine Aminotransferase 31 U/L (6-50); Albumin Level 4.0 g/dL (3.5-5.1); Alkaline Phosphatase 97 U/L (38-126); Anion Gap 11 mmol/L (4-12); Aspartate Amino Transferase 33 U/L (17-59); Bilirubin,Total 0.4 mg/dL (0.2-1.3); Blood Urea Nitrogen 20 mg/dL (9-20); Calcium 9.2 mg/dL (8.4-10.2); Carbon Dioxide 25 mmol/L (22-30); Chloride 105 mmol/L (98-107); Estimated Glomerular Filt Rate > 60; Glucose 140 mg/dL (65-110); Potassium 4.1 mmol/L (3.4-5.0); Sodium 141 mmol/L (137-145); Total Protein 7.5 g/dL (6.3-8.2)
[2024-12-25 19:22] LABS: Hematocrit 52.2 % (42.0-52.0); Hemoglobin 17.3 g/dL (14.0-18.0); Immature Granulocyte Percent A 1.7 % (0-0.5); Lymphocytes Absolute Auto 1.15 K/mm3 (0.9-3.2); Mean Corpuscular HGB Conc 33.1 g/dl (32-36); Mean Corpuscular Hemoglobin 32.5 pg (26-34); Mean Corpuscular Volume 97.9 fl (80-100); Nucleated Red Blood Cells Absolute Auto 0.020 K/mm3 (0.0-0.012); Nucleated Red Blood Cells Perc 0.3 % (0.0-0.2); Platelet Count Result 333 k/mm3 (150-375); Red Blood Count 5.33 M/mm3 (4.6-6.20); White Blood Count 7.0 K/mm3 (4.5-10.0)
[2024-12-30 10:08] LABS: Free Testosterone (Direct) 5.2 pg/mL (9.3-26.5)
== END 2024-12-25 11:34 | disposition home or self-care (01) ==
LOC: ANHGOSHLAB 11:34
PROVIDERS: PCP Pediatrics; Visit Provider Internal Medicine
DX: D69.6 Thrombocytopenia, unspecified (principal); E29.1 Testicular hypofunction; Z79.890 Hormone replacement therapy; R82.71 Bacteriuria; D69.41 Evans syndrome; D83.9 Common variable immunodeficiency, unspecified
CPT/HCPCS: 36415; 80053; 81001; 84402; 84403; 85025; 87077; 87086; 87186

== ENCOUNTER 2025-01-27 14:05 | Outpatient (CLI) | payer BC, MEDICAID, SELFPAY ==
[2025-01-27 15:10] LABS: Add Urine Microscopic? YES; Appearance Urine Cloudy (Clear); Glucose Urine UA Negative (Negative); Leukocyte Esterase Ur 3+ LEU/UL (Negative); Need Manual Microscopic Reviewed; Nitrate Urine Negative (Negative); Specific Grav Ur 1.023 (1.001-1.035)
--- OUTSIDE RECORDS SUMMARY | 2025-01-27 15:47 | XMS_ITS | Clinical Summary ---
Author Organization [employer] [facility] Address [address] [address] Care Team Providers Care Safety Specialist Name Role Phone Unavailable Primary Care [...] WEEKS. 24 Packet 1 03/02/2023 2:48 PM PACK OUT OPERATOR 3 Active clindamycin phosphate (CLEOCIN T) [...] procedure 4 Capsule 1 03/02/2023 2:45 PM PACK OUT OPERATOR 3 Active docusate sodium (COLACE) 100 mg capsule Take one capsule (100 mg) orally twice a day 60 Capsule 3 03/14/2023 12:03 PM PACK OUT OPERATOR 3 Active levothyroxine 112 mcg tablet Take one tablet (112 mcg) orally every morning 90 Tablet 2 03/14/2023 12:03 PM PACK OUT OPERATOR 3 Active pantoprazole (PROTONIX) 40 mg Tablet, Delayed Release (E.C.) Take one tablet (40 mg) orally daily 60 Tablet 03/14/2023 12:03 PM PACK OUT OPERATOR 3 Active sertraline (ZOLOFT) 100 mg tablet Take one tablet (50 mg) orally daily 90 Tablet 3 3 Active hydrocortisone sod succ, PF, (Solu-CORTEF Act-O-Vial, PF,) 100 mg/2 mL Recon Soln Inject 2 mL (100 mg) by intramuscular injection 1 time daily as needed for adrenal crisis. 10 Each 2 04/17/2023 6:40 PM PACK OUT OPERATOR 4 Active apixaban (Eliquis) 5 mg tablet Take 1 Tablet (5 mg) by mouth 2 times daily. 30 Tablet 1 04/08/2023 4:00 PM PACK OUT OPERATOR 4 Active nirmatrelvir-r itonavir (Paxlovid) 300(150mg x 2)-100 mg oral pack TAKE 2 TABLETS OF NIRMATRELVIR AND 1 TABLET OF RITONAVIR BY MOUTH TWICE DAILY FOR 5 DAYS 30 Each 4 Active predniSONE (DELTASONE) 1 mg tablet TAKE 1-4 TABLETS BY MOUTH DAILY DIRECTED BY PHYSICIAN. TAKE WITH 5 MG DAILY. 120 Tablet 2 04/25/2023 2:35 PM PACK OUT OPERATOR 4 Active nirmatrelvir-r itonavir (Paxlovid) 300(150mg [...] failure. 90 Tablet 2 04/25/2023 2:35 PM PACK OUT OPERATOR 4 Active Immunizations Immunization Administration Dates [...]
--- OUTSIDE RECORDS SUMMARY | 2025-01-27 15:48 | XMS_ITS | Encounter Summary ---
Author Organization [facility] Address [facility] [place] [address] Care Team Providers Care Industrial Relations Officer Name Role Phone Tennille Gleason Primary Care Provider [phone] Reason for Visit * Reason Onset Date Comments Reschedule Appointment 12/25/2024 Encounter Details Date Type Department Care Team (Late Contact Info) Description 12/25/2024 Telephone [facility] - General Dermatology [address], [address] [place] [address] Joaquim Qureshi, PALilyC [address] [place] [address] Reschedule Appointment Social History Tobacco [...] (Late Contact Info) Description 04/09/2025 3:40 PM COMPUTER SERVICE TECHNICIAN Office Visit [facility] - General Dermatology [address], [address] [place] [address] Joaquim Qureshi PA-C [address] [facility] [address] [place] [address] 05/07/2025 10:50 AM COMPUTER SERVICE TECHNICIAN Office Visit [facility] - General Dermatology [address], [facility] [address] [place] [address] Joaquim Qureshi PAIsi [address] [address] documented as of this encounter Visit Diagnoses Not on filedocumented in this encounter Care Teams Industrial Relations Officer Relationship Specialty Start Date End Date Tennille Gleason [place] PCP - General 11/20/24 documented as of this encounter
--- OUTSIDE RECORDS SUMMARY | 2025-01-27 15:48 | XMS_ITS | Encounter Summary ---
Author Organization [facility] Address [address] [place] [address] Phone Care Team Providers Care Linseed Oil Boiler Name Role Phone Zoila Gleason MD Primary Care Provider Rupal Isabel MD Unavailable [phone] Rekha Osborne MD Unavailable [phone] Mayuri Lyn RN Unavailable Michelle Colin QLIKVIEW DEVELOPER Unavailable Encounter Details Date Type Department [...] on file Legal Sex Male 1:53 AM LOW PRESSURE FIRER Gender Identity Male 10/02/2023 12:44 PM CDT [...] COVID: Recovered 11/29/2020 11/29/2020 03/29/2021 3:05 AM LOW PRESSURE FIRER COVID: Suspected 10/09/2021 10/09/2021 10/09/2021 9:37 AM CDT COVID: Suspected 03/06/2022 03/06/2022 03/06/2022 9:30 AM LOW PRESSURE FIRER RSV, droplet 03/06/2022 03/06/2022 03/13/2022 3:05 AM LOW PRESSURE FIRER COVID: Suspected 06/26/2022 06/26/2022 06/26/2022 5:59 PM CDT Coronavirus, droplet 06/26/2022 06/26/2022 023 3:06 AM CDT documented as of this encounter Care Teams Linseed Oil Boiler Relationship Specialty Start Date End Date Zoila Gleason MD [address] [place] [address] PCP - General 09/29/16 Rupal Isabel MD [address] [place] [address] [address] [place] [address] Referring Physician Allergy and Immunology 01/11/19 Rekha Osborne MD [address] [place] [address] Medical Oncologist/Emergency Room Clerk Hematology 05/11/20 Mayuri Lyn, RN 45[address] [facility] [address] [place] [address] SHOP Outpatient Graphic Design Intern 12/04/20 01/04/21 Michelle Colin LCSW 4590 [facility] ([facility] Mailstop [phone] [place] [address] SHOP Outpatient Graphic Design Intern 10/19/21 11/16/21 documented as of this encounter
--- OUTSIDE RECORDS SUMMARY | 2025-01-27 15:48 | XMS_ITS | Clinical Summary ---
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 021 Active OptiCjuan Rene [facility] spacer USE WITH INHALER DIRECTED 021 Active ergocalciferol (VITAMIN D) 50,000 unit capsuleIndication s:Vitamin D Deficiency Take 1 capsule (50,000 Units total) by mouth once a week Sundays. Active IgG-hyaluronidase ,recombinant 10 gram /100 mL (10 %) solution Inject 50 g under the skin every 4 (four) weeks 500 mL 3 Active albuterol 2.5 mg /3 mL (0.083 %) nebulizer solutionIndicatio ns:Acute Asthma Attack Take 3 mL (2.5 mg total) by nebulization every 4 (four) hours as needed for wheezing or shortness of breath Active sertraline (ZOLOFT) 100 mg tabletIndications :Anxiety with Depression Take 1 tablet (100 mg total) by mouth every morning 0.5 tablet Active imiquimod (ALDARA) 5 % creamIndications: skin issues Apply 1 packet topically as needed Active levothyroxine (SYNTHROID) 112 mcg tabletIndications :hypothyroidism Take 1 tablet (112 mcg total) by mouth conveyor monitor before breakfast Active Solu-CORTEF Act-O-Vial, PF, 100 mg/2 mL recon soln INJECT 2 MILLILITERS (100MG) INTRAMUSCULARLY DAILY NEEDED FOR ADRENAL CRISIS Active ondansetron ODT (ZOFRAN-ODT) 4 mg disintegrating tablet DISSOLVE 1 TABLET IN MOUTH EVERY 8 HOURS NEEDED FOR NAUSEA AND VOMITING Active prednisoLONE (MILLIPRED) 5 mg tablet Take 1 tablet (5 mg total) by mouth daily Active docusate sodium (COLACE) 100 mg capsuleIndication s:constipation Take 1 capsule (100 mg total) by mouth daily after dinner Active psyllium (KONSYL) powder Take 1 Application by mouth daily 1 tsp Active predniSONE (DELTASONE) 1 mg tablet PLEASE SEE ATTACHED FOR DETAILED DIRECTIONS Active Atrovent HFA 17 mcg/actuation inhaler Active avatrombopag (DOPTELET) 20 mg tabletIndications :Chronic ITP (idiopathic thrombocytopenia) (HCC) Take 1 tablet (20 mg total) by mouth daily Administer with food 90 tablet 3 025 Active Additional Information Patient taking differently:20 mg oralAs needed, Administer with food, Reported on 12/12/2024 Michaeltri Aerosphere 160-9-4.8 mcg/actuation inhaler Inhale 2 puffs 2 (two) times a day 025 Active fluorouraciL (EFUDEX) 5 % cream 5-Fluorouracil 5% / Salicylic Acid 70%. Paste apply a thin layer to warts daily under occlusion Reasons: Common Wart, warts 025 Active mometasone (Asmanex HFA) 200 mcg/actuation inhaler Inhale 2 puffs 2 (two) times a day 024 Active nystatin 100,000 unit/mL suspension Take 5 mL (500,000 Units total) by mouth as needed 022 Active ofloxacin (FLOXIN) 0.3 % otic solution as needed 025 Active valACYclovir (VALTREX) 500 mg tablet Take 1 tablet (500 mg total) by mouth as needed 025 Active UNABLE TO FIND Nasal inhaler A ctive sodium chloride 3 % nebulizer solution Take 4 mL by nebulization 2 (two) times a day 240 mL 5 025 Active testosterone undecanoate 112.5 mg capsuleIndication s:Male Hypogonadism Take 112.5 mg by mouth 2 (two) times a day 180 capsule 3 025 2025 Active testosterone 20.25 mg/1.25 gram (1.62 %) gel in metered-dose pumpIndications:M natali Hypogonadism Place 40.5 mg on the skin daily 225 g 1 025 2024 testosterone undecanoate 100 mg capsule Take 100 mg by mouth 2 (two) times a day 180 capsule 2 025 2024 Discontin ued(Alter franky therapy) Active Problems Problem Noted Date Diagnosed Date Bronchiectasis without complication 12/28/2024 Gram-negative bacteremia 12/17/2023 Assessment & Plan (12/19/2023 [...] stooling. -As of 12/18/23 at 1300, per [facility] [phone] - E. Coli. -Repeat blood cultures NGTD -Received cefepime; changed to cefuroxime to complete a 7 day course. Source is suspected to be UTI -TTE neg for vegetations Leukocytosis 12/17/2023 Assessment & Plan (12/17/2023 8:50 PM CDT): CBC at [facility] 12/15 WBC 20.5 (81% neutrophils). 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 Hgb now [...] cytopenia, his initial presentation for thrombocytopenia to [facility] was in 2012 (17 yo) with [...] responded to steroid and rituximab last time ([id number]). During his last admission for UTI, he [...] bid - received stress dose steroids at [facility] - continue pred 5 BID - per [...] an anti-21 hydroxylase antibody to rule out [place]'s as well as a low dose ACTH stim test at some point after 72 hours from last stress dose. He is very well appearing and does not have an indication for stress dosing at this time. - send anti-21 hydroxylase antibody (red top 2 ml) 2107 to [place] - consider ACTH stim test this admission [...] patient on 11/07. 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 Followed by endocrinology at [facility]. Currently on 150 mcg levothyroxine daily. [...] Avoid concomitant administration of Levothyroxine with patient's MOTORIZED SQUAD SERGEANT iron. Separate dosing by at least 4 hours. Pediatric Endocrinology will continue to follow. 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 Advanced Medicine 13th [place] [address] [place] [address] Dakota Berry Prior Auth (Tlando 112.5mg ) 01/17/2025 Orders Only [facility] Endocrinology Metabolism and Lipid [address] [facility] Medical Office Building [address], [address] [place] [address] Jesenia Cottrell MD Hypogonadism in male (Primary Dx) 12/12/2024 8:30 AM CDT Office Visit [facility] Medicine Pulmonary [address] [facility] Advanced Medicine 8th [place] [address] [place] [id number] Jam Sands MD Moderate persistent asthma without complication (Primary Dx); Lymphocytic interstitial pneumonia; CVID (common variable immunodeficiency) (CMS/HCC) (HCC); Bronchiectasis without complication ([facility]) 11/28/2024 Orders Only [facility] Medicine Pulmonary [address] [facility] Advanced Medicine 8th [place] [address] [place] [id number] Jam Sands MD 11/21/2024 Telephone [facility] Pulmonary [facility] Medicine 8th [place] [address] [place] [id number] Ana Laura Hall CMA 11/20/2024 12:40 PM CDT - 11/20/2024 11:59 PM CDT Hospital Encounter [facility] ([facility]) [address] [place] [address] Diagnosis unknown Discharge Disposition: Discharge to home or self care 11/05/2024 12:47 PM CDT - 11/05/2024 11:59 PM CDT Hospital Encounter [facility] ([facility]) [address] [place] [address] Discharge Disposition: Discharge to home or self care 11/05/2024 Telephone [facility] Medicine Pulmonary [address] [facility] for [facility] Medicine 8th [place] [address] [place] [address] Mia Castillo RN from Last 3 Months Immunizations Immunization [...] COVID-19 10/2019 Clotting disorder 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 Never 10/11/2021 Do you belong to [...] on file Legal Sex Male 1:53 AM COMMISSARY SUPERINTENDENT Gender Identity Male 10/02/2023 12:44 PM [...] images may or may not represent the [place] source data set and thus may contain [...] IMAGING STUDY STUDY INITIALLY PERFORMED: 11/04/2024 at [facility]. TYPE OF STUDY: Multiple CT images of [...] IMAGING STUDY STUDY INITIALLY PERFORMED: 11/04/2024 at [facility]. TYPE OF STUDY: Multiple CT images of [...] images may or may not represent the [place] source data set and thus may contain changes that may lower the accuracy of this second-opinion interpretation. Dictated by: Marsha Duval M.D. The radiology attending physician has personally reviewed this study, and had reviewed and/or edited this written report and agrees with it. Electronically signed by: Aura Jon M.D. Result [facility] Jam Sands MD IMG CT PROCEDURES Fi nal Result * CT Body Outside Reference (11/05/2024 12:47 PM CDT) Impressions [facility] - 11/05/2024 12:47 PM CDT These images are for Reference purposes only and have not been reviewed by [facility] Radiology. There will be no report generated by a [facility] Radiologist. Narrative [facility] - 11/05/2024 12:47 PM CDT EXAMINATION: Images For Reference Purposes Only Result [facility] Jam Sands MD [facility] CT PROCEDURES Fi nal Result Performing Organization Address [facility] Co de Phone Number [facility] * Hepatitis panel, acute (11/28/2020 5:33 PM CDT) Hep A IgM Nonreactive Nonreactive [facility] Comment: Interpretive Data: If Hep A IgM Ab is reported as Equivocal, a new sample should be drawn in two weeks for testing. Current interpretive data was last revised on 19. Hep B core IgM Nonreactive Nonreactive [facility] Comment: Interpretive Data If HepB Core IgM Ab is reported as Equivocal, a new sample should be drawn in two weeks for testing. Current interpretive data was last revised on 19. Hep C Ab Nonreactive Nonreactive [facility] Comment:Antibodies to HCV no t detected. Does NOT exclude the possibility of recent exposure to HCV. HepBsAg Nonreactive Nonreactive [facility] Blood 11/28/2020 5:33 PM CDT 11/28/2020 5:53 PM CDT [facility] DATA INTEGRITY [facility] MICROBIO LOGY - GENERAL ORDERABLES Edited Result - Final Performing Organization Address City/[facility]/ZIP Co de Phone Number [facility] Department [place] [address] from Last 3 Months or Most Recently Relevant to Health Maintenance Insurance [place] [facility] CHOICE PLUS [employer] OPEN ACCESS [place] [facility] CHOICE PLUS [employer] OPEN ACCESS [place] [employer] OPEN ACCESS [facility] CHOICE PLUS Advance Directives For more information, please contact: [phone] Documents on File Type Date Recorded Patient Engraving Press Operator Expl anation Power of Or Nurse Manager 10/21/2021 12:58 PM ADVANCE DIRECTIVE 10/14/2019 12:35 [...] 5:09 PM 01/02/2021 6:56 PM Care Teams Litigation Assistant Relationship Specialty Start Date End Date Zoila Gleason MD [address] [place] [address] PCP - General 09/29/16 Rupal Isabel MD [address] [facility] [address] [address] [place] [address] Referring Physician Allergy and Immunology 01/11/19 Rekha Osborne MD [address] [place] [address] Medical Oncologist/Coordinator Of Genetic Services Hematology 05/11/20
--- OUTSIDE RECORDS SUMMARY | 2025-01-27 15:48 | XMS_ITS | Encounter Summary ---
Author Organization [facility] Address [address] [place] [address] Phone Care Team Providers Care Youth Ministry Director Name Role Phone Zoila Gleason MD Primary Care Provider [phone] Rupal Isabel MD Unavailable [phone] Rekha Osborne MD Unavailable [phone] Mayuri Lyn RN Unavailable Michelle Colin ZIPPER REPAIRER Unavailable [phone] Encounter Details Date Type Department Care Team [...] than three times a week 12/10/2020 Attends Holiness Services Not on file 12/10 Active Member [...] slept in a correction (including now)? No 12/10/2020 Sex and Gender Information Value Date Recorded Sex Assigned at Not on file Legal Sex Male 1:53 AM PRODUCTION TECHNOLOGIST Gender Identity Male 10/02/2023 12:44 PM CDT [...] Recovered 11/29/2020 11/29/2020 03/29/2021 3:05 AM PRODUCTION TECHNOLOGIST COVID: Suspected 10/09/2021 10/09/2021 10/09/2021 9:37 AM CDT COVID: Suspected 03/06/2022 03/06/2022 03/06/2022 9:30 AM PRODUCTION TECHNOLOGIST RSV, droplet 03/06/2022 03/06/2022 03/13/2022 3:05 AM PRODUCTION TECHNOLOGIST COVID: Suspected 06/26/2022 06/26/2022 06/26/2022 5:59 PM CDT Coronavirus, droplet 06/26/2022 06/26/2022 023 3:06 AM CDT documented as of this encounter Care Teams Youth Ministry Director Relationship Specialty Start Date End Date Zoila Gleason MD [address] [place] [address] PCP - General 09/29/16 Rupal Isabel MD 10 [facility] [address] [place] [address] Referring Physician Allergy and Immunology 01/11/19 Rekha Osborne MD [address] [place] [address] Medical Oncologist/Tool Repairer Bench Hematology 05/11/20 Mayuri Lyn, RN [address] [facility] [address] [place] [address] SHOP Outpatient Forestry Pilot 12/04/20 01/04/21 Michelle Colin LCSW 4590 [facility] ([facility] Mailstop [phone] [place] [address] SHOP Outpatient Forestry Pilot 10/19/21 11/16/21 documented as of this encounter
--- OUTSIDE RECORDS SUMMARY | 2025-01-27 15:48 | XMS_ITS | Encounter Summary ---
Author Organization [facility] Address [address] [place] [address] Phone Care Team Providers Care Train Inspector Name Role Phone Zoila Gleason MD Primary Care Provider Rupal Isabel MD Unavailable [phone] Rekha Osborne MD Unavailable Mayuri Lyn RN Unavailable [phone] Michelle Colin ELECTROMECHANICAL ENGINEER Unavailable [phone] Encounter Details Date Type Department Care Team [...] on file Legal Sex Male 1:53 AM CHANCERY CLERK Gender Identity Male 10/02/2023 12:44 PM [...] COVID: Recovered 11/29/2020 11/29/2020 03/29/2021 3:05 AM CHANCERY CLERK COVID: Suspected 10/09/2021 10/09/2021 10/09/2021 9:37 AM CDT COVID: Suspected 03/06/2022 03/06/2022 03/06/2022 9:30 AM CHANCERY CLERK RSV, droplet 03/06/2022 03/06/2022 03/13/2022 3:05 AM CHANCERY CLERK COVID: Suspected 06/26/2022 06/26/2022 06/26/2022 5:59 PM CDT Coronavirus, droplet 06/26/2022 06/26/2022 023 3:06 AM CDT documented as of this encounter Care Teams Train Inspector Relationship Specialty Start Date End Date Zoila Gleason MD [address] [place] [address] PCP - General 09/29/16 Rupal Isabel MD [address] [place] [address] [address] [place] [address] Referring Physician Allergy and Immunology 01/11/19 Rekha Osborne MD [address] [place] [address] Medical Oncologist/Biometric Fingerprinting Technician Hematology 05/11/20 Mayuri Lyn, RN [address] [facility] [address] [place] [address] SHOP Outpatient Director Client Services 12/04/20 01/04/21 Michelle Colin LCSW 4590 [facility] ([facility] Mailstop [phone] [place] [address] SHOP Outpatient Director Client Services 10/19/21 11/16/21 documented as of this encounter
--- OUTSIDE RECORDS SUMMARY | 2025-01-27 15:48 | XMS_ITS | Encounter Summary ---
Author Organization [facility] Healthcare Address [address] [place] [address] Care Team Providers Care Slider Assembler Name Role Phone Zoila Gleason MD Primary Care Provider Rupal Isabel MD Unavailable [phone] Rekha Osborne MD Unavailable [phone] Mayuri Lyn RN Unavailable [phone] Michelle Colin [facility] Unavailable [phone] Encounter Details Date Type Department Care Team (Late st Contact Info) Description 11/12/2020 Telephone [facility] Imaging [address] [place] [address] Aiyana Lovelace, ZOFIA Social History Tobacco [...] on file Legal Sex Male 1:53 AM LEASE OPERATOR Gender Identity Male 10/02/2023 12:44 PM CDT Sexual Orientation Don't know 11/15/2020 1: 06 PM CDT documented as of this encounter Plan of Treatment Not on file documented as of this encounter Visit Diagnoses Not on filedocumented in this encounter Additional Health Concerns Infection Onset Date Last Indicated Resolved Time COVID: Recovered 11/29/2020 11/29/2020 03/29/2021 3:05 AM LEASE OPERATOR COVID: Suspected 10/09/2021 10/09/2021 10/09/2021 9:37 AM CDT COVID: Suspected 03/06/2022 03/06/2022 03/06/2022 9:30 AM LEASE OPERATOR RSV, droplet 03/06/2022 03/06/2022 03/13/2022 3:05 AM LEASE OPERATOR COVID: Suspected 06/26/2022 06/26/2022 06/26/2022 5:59 PM CDT Coronavirus, droplet 06/26/2022 06/26/2022 023 3:06 AM CDT documented as of this encounter Care Teams Slider Assembler Relationship Specialty Start Date End Date Zoila Gleason MD [address] [place] [address] PCP - General 09/29/16 Rupal Isabel MD 10 [facility] [address] [place] [address] Referring Physician Allergy and Immunology 01/11/19 Rekha Osborne MD [address] [place] [address] Medical Oncologist/Supervisor Labor Gang Hematology 05/11/20 Mayuri Lyn, RN [address] [facility] [address] [place] [address] SHOP Outpatient Dashboard Developer 12/04/20 01/04/21 Michelle Colin LCSW 45[address] [facility] ([facility] Mailstop [phone] [place] [address] SHOP Outpatient Dashboard Developer 10/19/21 11/16/21 documented as of this encounter
--- OUTSIDE RECORDS SUMMARY | 2025-01-27 15:48 | XMS_ITS | Encounter Summary ---
Author Organization [facility] Healthcare Address [address] [place] [address] Care Team Providers Care Airbrush Artist Name Role Phone Zoila Gleason MD Primary Care Provider [phone] Rupal Isabel MD Unavailable Rekha Osborne MD Unavailable Mayuri Lyn RN Unavailable Michelle ColinW Unavailable [phone] Encounter Details Date Type Department Care Team (Late st Contact Info) Description 03/31/2020 Telephone [facility] [place] [address] Wendy Storm, RDMS Social History [...] on file Legal Sex Male 1:53 AM CLOTHING AND TEXTILES TEACHER Gender Identity Male 10/02/2023 12:44 PM CDT Sexual Orientation Don't know 11/15/2020 1: 06 PM CDT documented as of this encounter Plan of Treatment Not on file documented as of this encounter Visit Diagnoses Not on filedocumented in this encounter Additional Health Concerns Infection Onset Date Last Indicated Resolved Time COVID: Suspected 04/21/2020 04/21/2020 04/21/2020 11:24 AM CLOTHING AND TEXTILES TEACHER Respiratory Infection (MICKEY), contact + droplet Comment:Automatically added due to negative COVID-19 result. 04/21/2020 04/21/2020 05/05/2020 3:0 6 AM CLOTHING AND TEXTILES TEACHER COVID: Suspected 04/21/2020 04/21/2020 04/21/2020 6:48 PM CLOTHING AND TEXTILES TEACHER COVID: Suspected 09/25/2020 09/25/2020 09/25/2020 10:11 AM CDT Rhino/Enterovirus 09/25/2020 09/25/2020 10/02/2020 3:05 AM CDT COVID: Recovered 11/29/2020 11/29/2020 03/29/2021 3:05 AM CLOTHING AND TEXTILES TEACHER COVID: Suspected 10/09/2021 10/09/2021 10/09/2021 9:37 AM CDT COVID: Suspected 03/06/2022 03/06/2022 03/06/2022 9:30 AM CLOTHING AND TEXTILES TEACHER RSV, droplet 03/06/2022 03/06/2022 03/13/2022 3:05 AM CLOTHING AND TEXTILES TEACHER COVID: Suspected 06/26/2022 06/26/2022 06/26/2022 5:59 PM CDT Coronavirus, droplet 06/26/2022 06/26/2022 023 3:06 AM CDT documented as of this encounter Care Teams Airbrush Artist Relationship Specialty Start Date End Date Zoila Gleason MD [address] [place] [address] PCP - General 09/29/16 Rupal Isabel MD 10 [facility] [address] [place] [address] Referring Physician Allergy and Immunology 01/11/19 Rekha Osborne MD [address] [place] [address] Medical Oncologist/Director Visual Hematology 05/11/20 Mayuri Lyn, RN 45[address] [facility] [address] [place] [address] SHOP Outpatient Blockers Skiver 12/04/20 01/04/21 Michelle Colin LCSW 4590 [facility] ([facility]) Mailstop [phone] [place] [address] SHOP Outpatient Blockers Skiver 10/19/21 11/16/21 documented as of this encounter
--- OUTSIDE RECORDS SUMMARY | 2025-01-27 15:48 | XMS_ITS | Encounter Summary ---
Author Organization [facility] Address [address] [place] [address] Phone Care Team Providers Care Cylinder Block Hole Reliner Name Role Phone Zoila Gleason MD Primary Care Provider [phone] Rupal Isabel MD Unavailable [phone] Rekha Osborne MD Unavailable [phone] Mayuri Lyn RN Unavailable Michelle Colin WARPER TENDER Unavailable [phone] Encounter Details Date Type Department Care Team [...] on file Legal Sex Male 1:53 AM BI SOLUTIONS ARCHITECT Gender Identity Male 10/02/2023 12:44 [...] COVID: Suspected 04/21/2020 04/21/2020 04/21/2020 11:24 AM BI SOLUTIONS ARCHITECT Respiratory Infection (MICKEY), contact + droplet Comment:Automatically added due to negative COVID-19 result. 04/21/2020 04/21/2020 05/05/2020 3:0 6 AM BI SOLUTIONS ARCHITECT COVID: Suspected 04/21/2020 04/21/2020 04/21/2020 6:48 PM BI SOLUTIONS ARCHITECT COVID: Suspected 09/25/2020 09/25/2020 09/25/2020 10:11 AM CDT Rhino/Enterovirus 09/25/2020 09/25/2020 10/02/2020 3:05 AM CDT COVID: Recovered 11/29/2020 11/29/2020 03/29/2021 3:05 AM BI SOLUTIONS ARCHITECT COVID: Suspected 10/09/2021 10/09/2021 10/09/2021 9:37 AM CDT COVID: Suspected 03/06/2022 03/06/2022 03/06/2022 9:30 AM BI SOLUTIONS ARCHITECT RSV, droplet 03/06/2022 03/06/2022 03/13/2022 3:05 AM BI SOLUTIONS ARCHITECT COVID: Suspected 06/26/2022 06/26/2022 06/26/2022 5:59 PM CDT Coronavirus, droplet 06/26/2022 06/26/202207/03/ 023 3:06 AM CDT documented as of this encounter Care Teams Cylinder Block Hole Reliner Relationship Specialty Start Date End Date Zoila Gleason MD [address] [place] [address] PCP - General 09/29/16 Rupal Isabel MD 10 [facility] [address] [place] [address] Referring Physician Allergy and Immunology 01/11/19 Rekha Osborne MD [address] [place] [address] Medical Oncologist/Health Spa Manager Hematology 05/11/20 Mayuri Lyn, RN 4590 [facility] [address] [place] [address] SHOP Outpatient Nike Athlete 12/04/20 01/04/21 Michelle Colin WARPER TENDER 4590 [facility] ([facility]) Mailstop [phone] [place] [address] SHOP Outpatient Nike Athlete 10/19/21 11/16/21 documented as of this encounter
--- OUTSIDE RECORDS SUMMARY | 2025-01-27 15:48 | XMS_ITS | Encounter Summary ---
Author Organization [facility] of [facility] Address [address] [place] [address] Phone Care Team Providers Care Sales Service Professional Name Role Phone Zoila Gleason MD Primary Care Provider [phone] Rupal Isabel MD Unavailable [phone] Rekha Osborne MD Unavailable [phone] Mayuri Lyn RN Unavailable [phone] Michelle Colin GRID CASTER Unavailable Encounter Details Date Type Department Care [...] on file Legal Sex Male 1:53 AM WIND POWER PROJECT MANAGER Gender Identity Male 10/02/2023 12:44 [...] COVID: Suspected 04/21/2020 04/21/2020 04/21/2020 11:24 AM WIND POWER PROJECT MANAGER Respiratory Infection (MICKEY), contact + droplet Comment:Automatically added due to negative COVID-19 result. 04/21/2020 04/21/2020 05/05/2020 3:0 6 AM WIND POWER PROJECT MANAGER COVID: Suspected 04/21/2020 04/21/2020 04/21/2020 6:48 PM WIND POWER PROJECT MANAGER COVID: Suspected 09/25/2020 09/25/2020 09/25/2020 10:11 AM CDT Rhino/Enterovirus 09/25/2020 09/25/2020 10/02/2020 3:05 AM CDT COVID: Recovered 11/29/2020 11/29/2020 03/29/2021 3:05 AM WIND POWER PROJECT MANAGER COVID: Suspected 10/09/2021 10/09/2021 10/09/2021 9:37 AM CDT COVID: Suspected 03/06/2022 03/06/2022 03/06/2022 9:30 AM WIND POWER PROJECT MANAGER RSV, droplet 03/06/2022 03/06/2022 03/13/2022 3:05 AM WIND POWER PROJECT MANAGER COVID: Suspected 06/26/2022 06/26/2022 06/26/2022 5:59 PM CDT Coronavirus, droplet 06/26/2022 06/26/2022 023 3:06 AM CDT documented as of this encounter Care Teams Sales Service Professional Relationship Specialty Start Date End Date Zoila Gleason MD [address] [place] [address] PCP - General 09/29/16 Rupal Isabel MD [address] [place] [address] [address] Referring Physician Allergy and Immunology 01/11/19 Rekha Osborne MD [address] [place] [address] Medical Oncologist/Waiter/Waitress Buffet Hematology 05/11/20 Mayuri Lyn, RN 4590 [facility] [address] [place] [address] SHOP Outpatient Radiology Asst 12/04/20 01/04/21 Michelle Colin [facility] [address] [facility] ([facility] Mailstop [phone] [place] [address] SHOP Outpatient Radiology Asst 10/19/21 11/16/21 documented as of this encounter
--- OUTSIDE RECORDS SUMMARY | 2025-01-27 15:48 | XMS_ITS | Encounter Summary ---
Author Organization [facility] Address [address] [place] [address] Phone Care Team Providers Care Beef Ribber Name Role Phone Zoila Gleason MD Primary Care Provider Rupal Isabel MD Unavailable [phone] Rekha Osborne MD Unavailable [phone] Mayuri Lyn RN Unavailable Michelle Colin EMERGING SOLUTIONS EXECUTIVE Unavailable [phone] Encounter Details Date Type Department Care Team [...] on file Legal Sex Male 1:53 AM ROLL SHEETING CUTTER Gender Identity Male 10/02/2023 12:44 PM [...] COVID: Suspected 04/21/2020 04/21/2020 04/21/2020 11:24 AM ROLL SHEETING CUTTER Respiratory Infection (MICKEY), contact + droplet Comment:Automatically added due to negative COVID-19 result. 04/21/2020 04/21/2020 05/05/2020 3:0 6 AM ROLL SHEETING CUTTER COVID: Suspected 04/21/2020 04/21/2020 04/21/2020 6:48 PM ROLL SHEETING CUTTER COVID: Suspected 09/25/2020 09/25/2020 09/25/2020 10:11 AM CDT Rhino/Enterovirus 09/25/2020 09/25/2020 10/02/2020 3:05 AM CDT COVID: Recovered 11/29/2020 11/29/2020 03/29/2021 3:05 AM ROLL SHEETING CUTTER COVID: Suspected 10/09/2021 10/09/2021 10/09/2021 9:37 AM CDT COVID: Suspected 03/06/2022 03/06/2022 03/06/2022 9:30 AM ROLL SHEETING CUTTER RSV, droplet 03/06/2022 03/06/2022 03/13/2022 3:05 AM ROLL SHEETING CUTTER COVID: Suspected 06/26/2022 06/26/2022 06/26/2022 5:59 PM CDT Coronavirus, droplet 06/26/2022 06/26/2022 023 3:06 AM CDT documented as of this encounter Care Teams Beef Ribber Relationship Specialty Start Date End Date Zoila Gleason MD [address] [address] PCP - General 09/29/16 Rupal Isabel MD 10 [facility] [address] [place] [address] Referring Physician Allergy and Immunology 01/11/19 Rekha Osborne MD [address] [place] [address] Medical Oncologist/Manager User Experience Hematology 05/11/20 Mayuri Lyn, RN 4590 [facility] [address] [place] [address] SHOP Outpatient Beading Sawyer 12/04/20 01/04/21 Michelle Colin LCSW 4590 [facility] ([facility]) Mailstop [phone] [place] [address] SHOP Outpatient Beading Sawyer 10/19/21 11/16/21 documented as of this encounter
--- OUTSIDE RECORDS SUMMARY | 2025-01-27 15:48 | XMS_ITS | Encounter Summary ---
Author Organization [facility] of [facility] Address [address] [place] [address] Phone Care Team Providers Care Car Wash Supervisor Name Role Phone Zoila Gleason MD Primary Care Provider Rupal Isabel MD Unavailable [phone] Rekha Osborne MD Unavailable [phone] Mayuri Lyn RN Unavailable Michelle Colin SHALE PLANER OPERATOR Unavailable [phone] Encounter Details Date Type Department Care Team [...] on file Legal Sex Male 1:53 AM MATERIALS SCIENTIST Gender Identity Male 10/02/2023 12:44 PM CDT [...] COVID: Suspected 04/21/2020 04/21/2020 04/21/2020 11:24 AM MATERIALS SCIENTIST Respiratory Infection (MICKEY), contact + droplet Comment:Automatically added due to negative COVID-19 result. 04/21/2020 04/21/2020 05/05/2020 3:0 6 AM MATERIALS SCIENTIST COVID: Suspected 04/21/2020 04/21/2020 04/21/2020 6:48 PM MATERIALS SCIENTIST COVID: Suspected 09/25/2020 09/25/2020 09/25/2020 10:11 AM CDT Rhino/Enterovirus 09/25/2020 09/25/2020 10/02/2020 3:05 AM CDT COVID: Recovered 11/29/2020 11/29/2020 03/29/2021 3:05 AM MATERIALS SCIENTIST COVID: Suspected 10/09/2021 10/09/2021 10/09/2021 9:37 AM CDT COVID: Suspected 03/06/2022 03/06/2022 03/06/2022 9:30 AM MATERIALS SCIENTIST RSV, droplet 03/06/2022 03/06/2022 03/13/2022 3:05 AM MATERIALS SCIENTIST COVID: Suspected 06/26/2022 06/26/2022 06/26/2022 5:59 PM CDT Coronavirus, droplet 06/26/2022 06/26/2022 023 3:06 AM CDT documented as of this encounter Care Teams Car Wash Supervisor Relationship Specialty Start Date End Date Zoila Gleason MD [address] [place] [address] PCP - General 09/29/16 Rupal Isabel MD [address] [place] [address] [address] Referring Physician Allergy and Immunology 01/11/19 Rekha Osborne MD [address] [place] [address] Medical Oncologist/Tumbling And Rolling Supervisor Hematology 05/11/20 Mayuri Lyn, RN 4590 [facility] [address] [place] [address] SHOP Outpatient Drainman 12/04/20 01/04/21 Michelle Colin [facility] 6490 [facility] [place] [place] Mailstop [phone] [place] [address] SHOP Outpatient Drainman 10/19/21 11/16/21 documented as of this encounter
--- OUTSIDE RECORDS SUMMARY | 2025-01-27 15:48 | XMS_ITS | Encounter Summary ---
Author Organization [facility] Address [address] [place] [address] Phone Care Team Providers Care Catering Convention Services Manager Name Role Phone Zoila Gleason MD Primary Care Provider Rupal Isabel MD Unavailable [phone] Rekha Osborne MD Unavailable Mayuri yLn RN Unavailable Michelle Colin DISH TECHNICIAN Unavailable Encounter Details Date Type Department [...] on file Legal Sex Male 1:53 AM MODEL HOME SALES GREETER Gender Identity Male 10/02/2023 12:44 PM CDT [...] COVID: Suspected 04/21/2020 04/21/2020 04/21/2020 11:24 AM MODEL HOME SALES GREETER Respiratory Infection (MICKEY), contact + droplet Comment:Automatically added due to negative COVID-19 result. 04/21/2020 04/21/2020 05/05/2020 3:0 6 AM MODEL HOME SALES GREETER COVID: Suspected 04/21/2020 04/21/2020 04/21/2020 6:48 PM MODEL HOME SALES GREETER COVID: Suspected 09/25/2020 09/25/2020 09/25/2020 10:11 AM CDT Rhino/Enterovirus 09/25/2020 09/25/2020 10/02/2020 3:05 AM CDT COVID: Recovered 11/29/2020 11/29/2020 03/29/2021 3:05 AM MODEL HOME SALES GREETER COVID: Suspected 10/09/2021 10/09/2021 10/09/2021 9:37 AM CDT COVID: Suspected 03/06/2022 03/06/2022 03/06/2022 9:30 AM MODEL HOME SALES GREETER RSV, droplet 03/06/2022 03/06/2022 03/13/2022 3:05 AM MODEL HOME SALES GREETER COVID: Suspected 06/26/2022 06/26/2022 06/26/2022 5:59 PM CDT Coronavirus, droplet 06/26/2022 06/26/2022 023 3:06 AM CDT documented as of this encounter Care Teams Catering Convention Services Manager Relationship Specialty Start Date End Date Zoila Gleason MD [address] [place] [address] PCP - General 09/29/16 Rupal Isabel MD [address] [place] [address] [address] Referring Physician Allergy and Immunology 01/11/19 Rekha Osborne MD [address] [place] [address] Medical Oncologist/Music Composition Teacher Hematology 05/11/20 Mayuri Lyn, RN 4590 [facility] [address] [place] [address] SHOP Outpatient Kitchen Help Handyman 12/04/20 01/04/21 Michelle Colin [facility] 9590 [facility] ([facility]) Mailstop [phone] [place] [address] SHOP Outpatient Kitchen Help Handyman 10/19/21 11/16/21 documented as of this encounter
--- OUTSIDE RECORDS SUMMARY | 2025-01-27 15:48 | XMS_ITS | Encounter Summary ---
Author Organization [facility] Address [address] [place] [address] Phone Care Team Providers Care Transfer And Pumphouse Operator Name Role Phone Zoila Gleason MD Primary Care Provider Rpual Isabel MD Unavailable [phone] Rekha Osborne MD Unavailable [phone] Mayuri Lyn RN Unavailable Michelle Colin MAIL ORDER CLERK Unavailable Encounter Details Date Type Department [...] file Legal Sex Male 1:53 AM TIRE RECAPPING MACHINE OPERATOR Gender Identity Male 10/02/2023 12:44 [...] Recovered 11/29/2020 11/29/2020 03/29/2021 3:05 AM TIRE RECAPPING MACHINE OPERATOR COVID: Suspected 10/09/2021 10/09/2021 10/09/2021 9:37 AM CDT COVID: Suspected 03/06/2022 03/06/2022 03/06/2022 9:30 AM TIRE RECAPPING MACHINE OPERATOR RSV, droplet 03/06/2022 03/06/2022 03/13/2022 3:05 AM TIRE RECAPPING MACHINE OPERATOR COVID: Suspected 06/26/2022 06/26/2022 06/26/2022 5:59 PM CDT Coronavirus, droplet 06/26/2022 06/26/2022 023 3:06 AM CDT documented as of this encounter Care Teams Transfer And Pumphouse Operator Relationship Specialty Start Date End Date Zoila Gleason MD [address] [place] [place], [place] [address] PCP - General 09/29/16 Rupal Isabel MD 10 [facility] [address] [place], [place] [address] Referring Physician Allergy and Immunology 01/11/19 Rekha Osborne MD [address] [place], [place] [address] Medical Oncologist/Ice Cream Scooper Hematology 05/11/20 Mayuri Lyn, RN [address] [facility] [address] [place] [address] SHOP Outpatient Vice President Payment 12/04/20 01/04/21 Michelle Colin, ROSALIE 4590 [facility] ([facility] Mailstop [phone] [place] [address] SHOP Outpatient Vice President Payment 10/19/21 11/16/21 documented as of this encounter
--- OUTSIDE RECORDS SUMMARY | 2025-01-27 15:48 | XMS_ITS | Encounter Summary ---
Author Organization [facility] of [facility] Address [address] [place] [address] Phone Care Team Providers Care Avionics Systems Integration Specialist Name Role Phone Zoila Gleason MD Primary Care Provider Rupal Isabel MD Unavailable [phone] Rekha Osborne MD Unavailable [phone] Mayuri Lyn RN Unavailable Michelle Colin DEVICE SALES CONSULTANT Unavailable [phone] Encounter Details Date Type Department Care Team [...] on file Legal Sex Male 1:53 AM THERAPY SITE COORDINATOR Gender Identity Male 10/02/2023 12:44 PM [...] COVID: Recovered 11/29/2020 11/29/2020 03/29/2021 3:05 AM THERAPY SITE COORDINATOR COVID: Suspected 10/09/2021 10/09/2021 10/09/2021 9:37 AM CDT COVID: Suspected 03/06/2022 03/06/2022 03/06/2022 9:30 AM THERAPY SITE COORDINATOR RSV, droplet 03/06/2022 03/06/2022 03/13/2022 3:05 AM THERAPY SITE COORDINATOR COVID: Suspected 06/26/2022 06/26/2022 06/26/2022 5:59 PM CDT Coronavirus, droplet 06/26/2022 06/26/2022 023 3:06 AM CDT documented as of this encounter Care Teams Avionics Systems Integration Specialist Relationship Specialty Start Date End Date Zoila Gleason MD [address] [place] [address] PCP - General 09/29/16 Rupal Isabel MD [address] [place] [address] [address] [place] [address] Referring Physician Allergy and Immunology 01/11/19 Rekha Osborne MD [address] [place] [address] Medical Oncologist/Steel Erector Hematology 05/11/20 Mayuri Lyn, RN 4590 [facility] [address] [place] [address] SHOP Outpatient Tapper Bit 12/04/20 01/04/21 Michelle Colin LCSW 4590 [facility] ([facility] Mailstop [phone] [place] [address] SHOP Outpatient Tapper Bit 10/19/21 11/16/21 documented as of this encounter
--- OUTSIDE RECORDS SUMMARY | 2025-01-27 15:48 | XMS_ITS | Encounter Summary ---
Author Organization [facility] Address [address] [place] [address] Phone Care Team Providers Care Food Services Manager Name Role Phone Zoila Gleason MD Primary Care Provider Rupal Isabel MD Unavailable [phone] Rekha Osborne MD Unavailable [phone] Mayuri Lyn RN Unavailable Michelle Colin REFINISHER Unavailable Encounter Details Date Type Department Care [...] on file Legal Sex Male 1:53 AM BUS AND SYS INTEGRATION SENIOR MANAGER Gender Identity Male 10/02/2023 12:44 [...] COVID: Recovered 11/29/2020 11/29/2020 03/29/2021 3:05 AM BUS AND SYS INTEGRATION SENIOR MANAGER COVID: Suspected 10/09/2021 10/09/2021 10/09/2021 9:37 AM CDT COVID: Suspected 03/06/2022 03/06/2022 03/06/2022 9:30 AM BUS AND SYS INTEGRATION SENIOR MANAGER RSV, droplet 03/06/2022 03/06/2022 03/13/2022 3:05 AM BUS AND SYS INTEGRATION SENIOR MANAGER COVID: Suspected 06/26/2022 06/26/2022 06/26/2022 5:59 PM CDT Coronavirus, droplet 06/26/2022 06/26/2022 023 3:06 AM CDT documented as of this encounter Care Teams Food Services Manager Relationship Specialty Start Date End Date Zoila Gleason MD [address] [place] [address] PCP - General 09/29/16 Rupal Isabel MD [address] [place] [address] [address] [place] [address] Referring Physician Allergy and Immunology 01/11/19 Rekha Osborne MD [address] [place] [address] Medical Oncologist/Financial Business Analyst Hematology 05/11/20 Mayuri Lyn, RN 4590 [facility] [address] [place] [address] SHOP Outpatient Dryland Farmer 12/04/20 01/04/21 Michelle Colin LCSW 4590 [facility] ([facility]) Mailstop [phone] [place] [address] SHOP Outpatient Dryland Farmer 10/19/21 11/16/21 documented as of this encounter
--- OUTSIDE RECORDS SUMMARY | 2025-01-27 15:48 | XMS_ITS | Encounter Summary ---
Author Organization [facility] School of [facility] Address [address] [place] [address] Phone Care Team Providers Care Launderer Hand Name Role Phone Zoila Gleason MD Primary Care Provider Rupal Isabel MD Unavailable [phone] Rekha Osborne MD Unavailable [phone] Michelle Colin [facility] Unavailable [phone] Encounter Details Date Type Department Care Team [...] than three times a week 12/10/2020 Attends Spiritism Services Not on file 12/10 Active Member [...] on file Legal Sex Male 1:53 AM BOILER OR ENGINE OPERATOR Gender Identity Male 10/02/2023 12:44 PM [...] COVID: Suspected 03/06/2022 03/06/2022 03/06/2022 9:30 AM BOILER OR ENGINE OPERATOR RSV, droplet 03/06/2022 03/06/2022 03/13/2022 3:05 AM BOILER OR ENGINE OPERATOR COVID: Suspected 06/26/2022 06/26/2022 06/26/2022 5:59 PM CDT Coronavirus, droplet 06/26/2022 06/26/2022 023 3:06 AM CDT documented as of this encounter Care Teams Launderer Hand Relationship Specialty Start Date End Date Zoila Gleason MD [address] [place] [address] PCP - General 09/29/16 Rupal Isabel MD 10 [facility] 200 [place] [address] Referring Physician Allergy and Immunology 01/11/19 Rekha Osborne MD [address] [place], [place] [address] Medical Oncologist/Baker Chef Hematology 05/11/20 Michelle Colin LCSW 4590 [facility] ([facility]) Mailstop [phone] [place] [address] SHOP Outpatient Stitch Bonding Machine Tender 10/19/21 11/16/21 documented as of this encounter
--- OUTSIDE RECORDS SUMMARY | 2025-01-27 15:48 | XMS_ITS | Clinical Summary ---
Author Organization [facility] Address [address] [facility] [place] [address] Care Team Providers Care Supervising Editor Trailer Name Role Phone Tennille Gleason Primary Care Provider [phone] Source Comments [facility],non-owned Affiliates and Associated Physician Practices is amultiple site organization consisting of ambulatory clinics and hospital sitesin [place] and [place]. This disclosure is being madepursuant to the Care Everywhere program and may not contain all information available regarding this patient. Last updated 17.[facility] Allergies Active Allergy Reactions Criticality Noted Date [...] 40.5 mg to skin once daily 5 Active fluorouracil (Efudex) 5 % creamIndication s:Verruca Vulgaris,warts 5-Fluorouracil 5% / Salicylic Acid 70%. Paste apply a thin layer to warts daily under occlusion Reasons: Common Wart, warts 15 g 5 5 Active Hospital, Clinic, or Other Facility Administered Medication Ordered Dose Route Frequency Start Date End Date Status salicylic acid 30 % - podophylline 2 % - cantharidin 1 % (CANTHARIDIN 1% PLUS) (Cantharidin 1% Plus) compound 0.1 mLIndications:Other viral warts 0.1 mL TP ONCE 01/22/2025 01/22/2025 Ended Encounters Date Type Department Care Team Description 01/22/2025 1:00 PM CDT Office Visit [facility] - General Dermatology [address], [facility] [address] [place] [phone] Joaquim Qureshi PA-C Other viral warts (Primary Dx) 01/22/2025 Travel 12/25/2024 Telephone [facility] - General Dermatology [address], [facility] [address] [place] [address] Joaquim Qureshi PA-C Reschedule Appointment 12/25/2024 Travel 11/20/2024 9:00 AM CDT Office Visit [facility] - Dermatology [address] [facility] [place] [address] Ele Parada MD Verruca vulgaris (Primary Dx); Other viral warts 11/20/2024 Travel from Last 3 Months Social History Tobacco Use Types Packs/Day Years Used Date Smoking Tobacco: Never Smokeless Tobacco: Never Tobacco Cessation:Counseling Given: Not Answered Sex and Gender Information Value Date Recorded Sex Assigned at Not on file Legal Sex Male 11:21 AM CDT Gender Identity Not on file Sexual Orientation Not on file Plan of Treatment Upcoming Encounters Date Type Department Care Team (Late st Contact Info) Description 04/09/2025 3:40 PM NSH TEACHER Office Visit [facility] - General Dermatology [address], [facility] [address] [place] [address] Joaquim Qureshi PA-C [address] [address] 05/07/2025 10:50 AM NSH TEACHER Office Visit [facility] General Dermatology [address], [facility] [address] [place] [address] Joaquim Qureshi PA-C [address] [facility] [address] [place] [address] Health Maintenance Due Date Last Done Comments HIV SCREENING 2012 HEPATITIS C SCREENING 09/26/2015 DTAP/TDAP/TD VACCINES (1 - Tdap) 2016 HEPATITIS B VACCINE (1 of 3 - 19+ 3-dose series) 2016 DEPRESSION SCREENING 04/03/2024 HPV VACCINE (1 - 3-dose SCDM series) 2024 COVID-19 VACCINE (4 - 2024- season) 2024 02/17/2021, 01/27/2021, 06/08/2020 INFLUENZA VACCINE [...] Procedure Name Priority Date/Time Associated Diagnosis Comments OR DESTRUCT BENIGN LESION, - Routine 01/22/2025 1:27 PM CDT Other viral warts OR DESTRUCT BENIGN LESION, - Routine 11/20/2024 9:45 AM CDT Verruca vulgaris from Last 3 Months Results * OR DESTRUCT BENIGN LESION, - (01/22/2025 1:27 PM CDT) Narrative Joaquim Qureshi PA-C - 01/22/2025 1:27 PM CDT Joaquim Qureshi PA-C 01/22/2025 2:32 PM Derm - Benign Lesion Destruction Date/Time: 01/22/2025 1:27 PM Performed by: Joaquim Qureshi PA-C Authorized by: Joaquim Qureshi PA-C Indication(s): pain Consent given by: patient Consent type: verbal Risks discussed with patient: pain, blistering, scar formation, skin color change, need for further testing/treatment, infection and risk of recurrence. Consent type: verbal Procedure details: Location information R hand x 2, L hand x 5 Number of standard lesions: 7 Total number of lesions: 7 Destruction method: chemical removal Chemical applied to lesion(s): cantharidin Wound dressing: clear adhesive dressing Wound care discussed with patient? yes Patient instructed to wash area after 6 hours. Blister care and wound care reviewed. Comments: Treated due to pain Joaquim Qureshi PA-C PROCEDURE/MINOR SURGICAL ORDERA BLES Final Result * OR DESTRUCT BENIGN LESION, 1-14 (11/20/2024 9:45 AM CDT) Narrative Ele Parada MD - 11/20/2024 9:45 AM CDT Ele Parada MD 11/20/2024 12:50 PM Diagnosis and treatment options discussed. Cryotherapy (Liquid Nitrogen) to 11 viral warts x 10 seconds each. Number of cycles: 2. Wound care reviewed. Ele Parada MD PROCEDURE/MINOR SURGICAL ORD ERABLES Edited Result - Final from Last 3 Months Insurance MEDICAID - [place] [facility] Care Teams Supervising Editor Trailer Relationship Specialty Start Date End Date Tennille Gleason, [place] PCP - General 11/20/24
--- OUTSIDE RECORDS SUMMARY | 2025-01-27 15:48 | XMS_ITS | Encounter Summary ---
Author Organization [facility] Address [address] [place] [address] Phone Care Team Providers Care Lace Machine Operator Name Role Phone Zoila Gleason MD Primary Care Provider Rupal Isabel MD Unavailable [phone] Rekha Osborne MD Unavailable [phone] Mayuri Lyn RN Unavailable [phone] Michelle Colin BLACK MILL OPERATOR Unavailable Encounter Details Date Type Department [...] on file Legal Sex Male 1:53 AM SURG NURSE Gender Identity Male 10/02/2023 12:44 PM [...] COVID: Suspected 04/21/2020 04/21/2020 04/21/2020 11:24 AM SURG NURSE Respiratory Infection (MICKEY), contact + droplet Comment:Automatically added due to negative COVID-19 result. 04/21/2020 04/21/2020 05/05/2020 3:0 6 AM SURG NURSE COVID: Suspected 04/21/2020 04/21/2020 04/21/2020 6:48 PM SURG NURSE COVID: Suspected 09/25/2020 09/25/2020 09/25/2020 10:11 AM CDT Rhino/Enterovirus 09/25/2020 09/25/2020 10/02/2020 3:05 AM CDT COVID: Recovered 11/29/2020 11/29/2020 03/29/2021 3:05 AM SURG NURSE COVID: Suspected 10/09/2021 10/09/2021 10/09/2021 9:37 AM CDT COVID: Suspected 03/06/2022 03/06/2022 03/06/2022 9:30 AM SURG NURSE RSV, droplet 03/06/2022 03/06/2022 03/13/2022 3:05 AM SURG NURSE COVID: Suspected 06/26/2022 06/26/2022 06/26/2022 5:59 PM CDT Coronavirus, droplet 06/26/2022 06/26/2022 023 3:06 AM CDT documented as of this encounter Care Teams Lace Machine Operator Relationship Specialty Start Date End Date Zoila Gleason MD [address] [place] [address] PCP - General 09/29/16 Rupal Isabel MD [address] [place] [address] [address] Referring Physician Allergy and Immunology 01/11/19 Rekha Osborne MD [address] [place] [address] Medical Oncologist/Rivet Hole Machine Operator Hematology 05/11/20 Mayuri Lyn, RN 4590 [facility] 5[address] [place] [address] SHOP Outpatient Baker Head 12/04/20 01/04/21 Michelle Colin [facility] 2890 [facility] ([facility]) Mailstop [phone] [place] [address] SHOP Outpatient Baker Head 10/19/21 11/16/21 documented as of this encounter
--- OUTSIDE RECORDS SUMMARY | 2025-01-27 15:48 | XMS_ITS | Encounter Summary ---
Author Organization [facility] Address [address] [place] [address] Phone Care Team Providers Care Truss Builder Name Role Phone Zoila Gleason MD Primary Care Provider [phone] Rupal Isabel MD Unavailable [phone] Rekha Osborne MD Unavailable [phone] Encounter Details Date Type Department Care Team [...] often do you attend chur ch or sikh services? Never 10/11/2021 Do you belong to [...] on file Legal Sex Male 1:53 AM COMPUTED TOMOGRAPHY SCANNER OPERATOR Gender Identity Male 10/02/2023 12:44 PM [...] documented as of this encounter Care Teams Truss Builder Relationship Specialty Start Date End Date Zoila Gleason MD [address] [place] [address] PCP - General 09/29/16 Rupal Isabel MD 10 [facility] 200 [place] [address] Referring Physician Allergy and Immunology 01/11/19 Rekha Osborne MD [address] [place] [address] Medical Oncologist/Critical Care Clinical Nurse Specialist Hematology 05/11/20 documented as of this encounter
--- OUTSIDE RECORDS SUMMARY | 2025-01-27 15:48 | XMS_ITS | Encounter Summary ---
Author Organization [facility] School of [facility] Address [address] [place] [address] Phone Care Team Providers Care Power Brake Operator Name Role Phone Zoila Gleason MD Primary Care Provider Rupal Isabel MD Unavailable [phone] Rekha Osborne MD Unavailable [phone] Mayuri Lyn RN Unavailable [phone] Michelle Colin OIL WELL FISHING TOOL TECHNICIAN Unavailable Encounter Details Date Type Department [...] on file Legal Sex Male 1:53 AM SHIFT BOSS Gender Identity Male 10/02/2023 12:44 PM CDT [...] COVID: Recovered 11/29/2020 11/29/2020 03/29/2021 3:05 AM SHIFT BOSS COVID: Suspected 10/09/2021 10/09/2021 10/09/2021 9:37 AM CDT COVID: Suspected 03/06/2022 03/06/2022 03/06/2022 9:30 AM SHIFT BOSS RSV, droplet 03/06/2022 03/06/2022 03/13/2022 3:05 AM SHIFT BOSS COVID: Suspected 06/26/2022 06/26/2022 06/26/2022 5:59 PM CDT Coronavirus, droplet 06/26/2022 06/26/2022 023 3:06 AM CDT documented as of this encounter Care Teams Power Brake Operator Relationship Specialty Start Date End Date Zoila Gleason MD [address] [place] [address] PCP - General 09/29/16 Rupal Isabel MD [address] [place] [address] [address] [place] [address] Referring Physician Allergy and Immunology 01/11/19 Rekha Osborne MD [address] [place] [address] Medical Oncologist/Alteration Hand Hematology 05/11/20 Mayuri Lyn, RN 4590 [facility] 5[address] [place] [address] SHOP Outpatient Computer Technologist 12/04/20 01/04/21 Michelle Colin LCSW 4590 [facility] ([facility]) Mailstop [phone] [place] [address] SHOP Outpatient Computer Technologist 10/19/21 11/16/21 documented as of this encounter
--- OUTSIDE RECORDS SUMMARY | 2025-01-27 15:48 | XMS_ITS | Encounter Summary ---
Author Organization [facility] of [facility] Address [address] [place] [address] Phone Care Team Providers Care Crab Fisher Name Role Phone Zoila Gleason MD Primary Care Provider [phone] Rupal Isabel MD Unavailable Rekha Osborne MD Unavailable [phone] Encounter Details Date Type Department Care Team [...] often do you attend chur ch or sikhism services? Never 10/11/2021 Do you belong to [...] on file Legal Sex Male 1:53 AM PACK PULLER Gender Identity Male 10/02/2023 12:44 PM [...] on filedocumented in this encounter Care Teams Crab Fisher Relationship Specialty Start Date End Date Zoila Gleason MD [address] [place] [address] PCP - General 09/29/16 Rupal Isabel MD 10 [facility] [address] [place] [address] Referring Physician Allergy and Immunology 01/11/19 Rekha Osborne MD [address] [place] [address] Medical Oncologist/Plastic Fixture Builder Hematology 05/11/20 documented as of this encounter
--- OUTSIDE RECORDS SUMMARY | 2025-01-27 15:49 | XMS_ITS | Encounter Summary ---
Author Organization [facility] Address [address] [place] [address] Phone Care Team Providers Care Cesspool Cleaner Name Role Phone Zoila Gleason MD Primary Care Provider Rupal Isabel MD Unavailable [phone] Rekha Osborne MD Unavailable [phone] Mayuri Lyn RN Unavailable Michelle Colin MANAGER ZONE Unavailable Encounter Details Date Type Department Care [...] on file Legal Sex Male 1:53 AM UMBRELLA TIPPER MACHINE Gender Identity Male 10/02/2023 12:44 PM CDT [...] COVID: Recovered 11/29/2020 11/29/2020 03/29/2021 3:05 AM UMBRELLA TIPPER MACHINE COVID: Suspected 10/09/2021 10/09/2021 10/09/2021 9:37 AM CDT COVID: Suspected 03/06/2022 03/06/2022 03/06/2022 9:30 AM UMBRELLA TIPPER MACHINE RSV, droplet 03/06/2022 03/06/2022 03/13/2022 3:05 AM UMBRELLA TIPPER MACHINE COVID: Suspected 06/26/2022 06/26/2022 06/26/2022 5:59 PM CDT Coronavirus, droplet 06/26/2022 06/26/2022 023 3:06 AM CDT documented as of this encounter Care Teams Cesspool Cleaner Relationship Specialty Start Date End Date Zoila Gleason MD [address] [place] [address] PCP - General 09/29/16 Rupal Isabel MD [address] [place] [address] [address] [place] [address] Referring Physician Allergy and Immunology 01/11/19 Rekha Osborne MD [address] [place] [address] Medical Oncologist/Medical Sales Specialist Hematology 05/11/20 Mayuri Lyn, RN 4590 [facility] [address] [place] [address] SHOP Outpatient Casino Accountant 12/04/20 01/04/21 Michelle Colin LCSW 4590 [facility] ([facility]) Mailstop [phone] [place] [address] SHOP Outpatient Casino Accountant 10/19/21 11/16/21 documented as of this encounter
--- OUTSIDE RECORDS SUMMARY | 2025-01-27 15:49 | XMS_ITS | Encounter Summary ---
Author Organization [facility] Address [address] [place] [address] Phone Care Team Providers Care Machine Tool Technician Instructor Name Role Phone Zoila Gleason MD Primary Care Provider Rupal Isabel MD Unavailable [phone] Rekha Osborne MD Unavailable [phone] Mayuri Lyn RN Unavailable Michelle Colin TECHNOLOGY INTERN Unavailable [phone] Encounter Details Date Type Department Care Team [...] on file Legal Sex Male 1:53 AM CARGO BROKER Gender Identity Male 10/02/2023 12:44 PM [...] COVID: Recovered 11/29/2020 11/29/2020 03/29/2021 3:05 AM CARGO BROKER COVID: Suspected 10/09/2021 10/09/2021 10/09/2021 9:37 AM CDT COVID: Suspected 03/06/2022 03/06/2022 03/06/2022 9:30 AM CARGO BROKER RSV, droplet 03/06/2022 03/06/2022 03/13/2022 3:05 AM CARGO BROKER COVID: Suspected 06/26/2022 06/26/2022 06/26/2022 5:59 PM CDT Coronavirus, droplet 06/26/2022 06/26/2022 023 3:06 AM CDT documented as of this encounter Care Teams Machine Tool Technician Instructor Relationship Specialty Start Date End Date Zoila Gleason MD [address] [place] [address] PCP - General 09/29/16 Rupal Isabel MD 10 [facility] [address] [place] [address] Referring Physician Allergy and Immunology 01/11/19 Rekha Osborne MD [address] [place] [address] Medical Oncologist/Medical Chief Technician Hematology 05/11/20 Mayuri Lyn, RN 4590 [facility] [address] [place] [address] SHOP Outpatient Production Foreman 12/04/20 01/04/21 Michelle Colin LCSW 4590 [facility] ([facility] Mailstop [phone] [place] [address] SHOP Outpatient Production Foreman 10/19/21 11/16/21 documented as of this encounter
--- OUTSIDE RECORDS SUMMARY | 2025-01-27 15:49 | XMS_ITS | Encounter Summary ---
Author Organization [facility] Address [address] [place] [address] Phone Care Team Providers Care Med Spa Manager Name Role Phone Zoila Gleason MD Primary Care Provider Rupal Isabel MD Unavailable [phone] Rekha Osborne MD Unavailable [phone] Mayuri Lyn RN Unavailable [phone] Michelle Colin SCRUB TECH Unavailable Encounter Details Date Type Department [...] Legal Sex Male 1:53 AM DIRECTOR OF PROFESSIONAL SERVICES Gender Identity Male 10/02/2023 12:44 PM CDT [...] 04/21/2020 04/21/2020 04/21/2020 11:24 AM DIRECTOR OF PROFESSIONAL SERVICES Respiratory Infection (MICKEY), contact + droplet Comment:Automatically added due to negative COVID-19 result. 04/21/2020 04/21/2020 05/05/2020 3:0 6 AM DIRECTOR OF PROFESSIONAL SERVICES COVID: Suspected 04/21/2020 04/21/2020 04/21/2020 6:48 PM DIRECTOR OF PROFESSIONAL SERVICES COVID: Suspected 09/25/2020 09/25/2020 09/25/2020 10:11 AM CDT Rhino/Enterovirus 09/25/2020 09/25/2020 10/02/2020 3:05 AM CDT COVID: Recovered 11/29/2020 11/29/2020 03/29/2021 3:05 AM DIRECTOR OF PROFESSIONAL SERVICES COVID: Suspected 10/09/2021 10/09/2021 10/09/2021 9:37 AM CDT COVID: Suspected 03/06/2022 03/06/2022 03/06/2022 9:30 AM DIRECTOR OF PROFESSIONAL SERVICES RSV, droplet 03/06/2022 03/06/2022 03/13/2022 3:05 AM DIRECTOR OF PROFESSIONAL SERVICES COVID: Suspected 06/26/2022 06/26/2022 06/26/2022 5:59 PM CDT Coronavirus, droplet 06/26/2022 06/26/2022 023 3:06 AM CDT documented as of this encounter Care Teams Med Spa Manager Relationship Specialty Start Date End Date Zoila Gleason MD [address] [place] [address] PCP - General 09/29/16 Rupal Isabel MD 10 [facility] [address] [address] Referring Physician Allergy and Immunology 01/11/19 Rekha Osborne MD [address] [place] [address] Medical Oncologist/Tool And Die Designer Hematology 05/11/20 Mayuri Lyn, RN [address] [facility] [address] [place] [address] SHOP Outpatient School Bus Aide 12/04/20 01/04/21 Michelle Colin LCSW 7179 [facility] ([facility]) Mailstop [phone] [place] [address] SHOP Outpatient School Bus Aide 10/19/21 11/16/21 documented as of this encounter
--- OUTSIDE RECORDS SUMMARY | 2025-01-27 15:49 | XMS_ITS | Encounter Summary ---
Author Organization [facility] Address [address] [place] [address] Phone Care Team Providers Care Dip Brazier Name Role Phone Zoila Gleason MD Primary Care Provider Rupal Isabel MD Unavailable [phone] Rekha Osborne MD Unavailable [phone] Mayuri Lyn RN Unavailable [phone] Michelle Colin INTERNAL CORROSION SPECIALIST Unavailable [phone] Encounter Details Date Type Department Care Team [...] on file Legal Sex Male 1:53 AM COMPOSITE ENGINEER Gender Identity Male 10/02/2023 12:44 PM [...] COVID: Recovered 11/29/2020 11/29/2020 03/29/2021 3:05 AM COMPOSITE ENGINEER COVID: Suspected 10/09/2021 10/09/2021 10/09/2021 9:37 AM CDT COVID: Suspected 03/06/2022 03/06/2022 03/06/2022 9:30 AM COMPOSITE ENGINEER RSV, droplet 03/06/2022 03/06/2022 03/13/2022 3:05 AM COMPOSITE ENGINEER COVID: Suspected 06/26/2022 06/26/2022 06/26/2022 5:59 PM CDT Coronavirus, droplet 06/26/2022 06/26/2022 023 3:06 AM CDT documented as of this encounter Care Teams Dip Brazier Relationship Specialty Start Date End Date Zoila Gleason MD [address] [place] [address] PCP - General 09/29/16 Rupal Isabel MD [address] [place] [address] [facility] [address] [place] [address] Referring Physician Allergy and Immunology 01/11/19 Rekha Osborne MD [address] [place] [address] Medical Oncologist/Cash Controller Hematology 05/11/20 Mayuri Lyn, RN 4590 [facility] [address] [place] [address] SHOP Outpatient Postmaster 12/04/20 01/04/21 Michelle Colin LCSW 4590 [facility] ([facility]) Mailstop [phone] [place] [address] SHOP Outpatient Postmaster 10/19/21 11/16/21 documented as of this encounter
--- OUTSIDE RECORDS SUMMARY | 2025-01-27 15:49 | XMS_ITS | Encounter Summary ---
Author Organization [facility] of [facility] Address [address] [place] [address] Phone Care Team Providers Care Pharmacy Data Analyst Name Role Phone Zoila Gleason MD Primary Care Provider [phone] Rupal Isabel MD Unavailable Rekha Osborne MD Unavailable [phone] Mayuri Lyn RN Unavailable [phone] Michelle Colin VIDEO MACHINES MECHANIC Unavailable Encounter Details Date Type Department Care [...] on file Legal Sex Male 1:53 AM TEACHER AIDE CLERICAL Gender Identity Male 10/02/2023 12:44 PM CDT [...] COVID: Recovered 11/29/2020 11/29/2020 03/29/2021 3:05 AM TEACHER AIDE CLERICAL COVID: Suspected 10/09/2021 10/09/2021 10/09/2021 9:37 AM CDT COVID: Suspected 03/06/2022 03/06/2022 03/06/2022 9:30 AM TEACHER AIDE CLERICAL RSV, droplet 03/06/2022 03/06/2022 03/13/2022 3:05 AM TEACHER AIDE CLERICAL COVID: Suspected 06/26/2022 06/26/2022 06/26/2022 5:59 PM CDT Coronavirus, droplet 06/26/2022 06/26/2022 023 3:06 AM CDT documented as of this encounter Care Teams Pharmacy Data Analyst Relationship Specialty Start Date End Date Zoila Gleason MD [address] [place] [address] PCP - General 09/29/16 Rupal Isabel MD [address] [place] [address] [address] [place] [address] Referring Physician Allergy and Immunology 01/11/19 Rekha Osborne MD [address] [place] [address] Medical Oncologist/Certified Ophthalmic Medical Technician Hematology 05/11/20 Mayuri Lyn, RN 4590 [facility] [address] [place] [address] SHOP Outpatient Race Engine Builder 12/04/20 01/04/21 Michelle Colin LCSW 4590 [facility] ([facility]) Mailstop [phone] [place] [address] SHOP Outpatient Race Engine Builder 10/19/21 11/16/21 documented as of this encounter
--- OUTSIDE RECORDS SUMMARY | 2025-01-27 15:49 | XMS_ITS | Encounter Summary ---
Author Organization [facility] Address [address] [place] [address] Phone Care Team Providers Care Wheel Of Fortune Dealer Name Role Phone Zoila Gleason MD Primary Care Provider [phone] Rupal Isabel MD Unavailable [phone] Rekha Osborne MD Unavailable [phone] Mayuri Lyn RN Unavailable [phone] Michelle Colin PEAR PICKER Unavailable Encounter Details Date Type Department Care [...] on file Legal Sex Male 1:53 AM SLOT MACHINE DEPARTMENT FLOORPERSON Gender Identity Male 10/02/2023 12:44 PM CDT [...] COVID: Recovered 11/29/2020 11/29/2020 03/29/2021 3:05 AM SLOT MACHINE DEPARTMENT FLOORPERSON COVID: Suspected 10/09/2021 10/09/2021 10/09/2021 9:37 AM CDT COVID: Suspected 03/06/2022 03/06/2022 03/06/2022 9:30 AM SLOT MACHINE DEPARTMENT FLOORPERSON RSV, droplet 03/06/2022 03/06/2022 03/13/2022 3:05 AM SLOT MACHINE DEPARTMENT FLOORPERSON COVID: Suspected 06/26/2022 06/26/2022 06/26/2022 5:59 PM CDT Coronavirus, droplet 06/26/2022 06/26/2022 023 3:06 AM CDT documented as of this encounter Care Teams Wheel Of Fortune Dealer Relationship Specialty Start Date End Date Zoila Gleason MD [address] [place] [address] PCP - General 09/29/16 Rupal Isabel MD [address] [place] [address] [address] [place] [address] Referring Physician Allergy and Immunology 01/11/19 Rekha Osborne MD [address] [place] [address] Medical Oncologist/Top Precipitator Operator Helper Hematology 05/11/20 Mayuri Lyn, RN 45[address] [facility] [address] [place] [address] SHOP Outpatient Pillowcase Sewer 12/04/20 01/04/21 Michelle Colin LCSW 4590 [facility] ([facility]) Mailstop [phone] [place] [address] SHOP Outpatient Pillowcase Sewer 10/19/21 11/16/21 documented as of this encounter
== END 2025-01-27 14:06 | disposition home or self-care (01) ==
LOC: ANHLAB 14:07
PROVIDERS: PCP Pediatrics; Visit Provider Internal Medicine
DX: N39.0 Urinary tract infection, site not specified (principal); R30.0 Dysuria
CPT/HCPCS: 81001

== ENCOUNTER 2025-02-03 13:38 | Outpatient (CLI) | payer BC, MEDICAID, SELFPAY ==
[2025-02-03 19:19] LABS: Add Urine Microscopic? NO; Appearance Urine Clear (Clear); Glucose Urine UA Negative (Negative); Leukocyte Esterase Ur Negative LEU/UL (Negative); Nitrate Urine Negative (Negative); Specific Grav Ur 1.020 (1.001-1.035)
== END 2025-02-03 13:39 | disposition home or self-care (01) ==
LOC: ANHGOSHLAB 13:39
PROVIDERS: PCP Pediatrics; Visit Provider Internal Medicine
DX: N39.0 Urinary tract infection, site not specified (principal); R30.0 Dysuria
CPT/HCPCS: 81003